=== PATIENT | female | born 2000 | race Caucasian/White ===

== ENCOUNTER → 2023-05-27 | Outpatient (CLI) | payer OTHER, MEDICAID, SELFPAY ==
[2023-05-27 14:40] LABS: Absolute Lymphocyte Count 1.86 X10^3/uL (0.83-4.51); Absolute Neutrophil Count 7.3 X10^3/uL (2.0-7.7); Basophil# 0.05 X10^3/uL; Basophil% 0.5 % (0-1); Eosinophil# 0.13 X10^3/uL; Eosinophils% 1.3 % (0-5); Hemoglobin 11.6 g/dL (12.0-15.0); Lymphocyte # 1.86 X10^3/ul (0.83-4.51); Lymphocyte % 18.8 % (19-41); Mean Corp Hgb Conc 34.1 g/dL (32-36); Mean Corpuscular Hgb 28.9 pg (27.0-32.0); Mean Corpuscular Volume 84.6 fL (81-99); Mean Platelet Vol. 8.9 fl (6.2-12.0); Monocyte# 0.54 X10^3/uL; Monocyte% 5.5 % (0-10); NRBC Flagged by Analyzer 0 % (0-5); Neutrophil # 7.26 X10^3/uL (2.7-7.7); Neutrophil % 73.3 % (47-70); Platelet Count 304 K/mm3 (150-450); RBC Distribution Width SD 36.7 fl (35.1-43.9); Red Blood Count 4.02 M/mm3 (4.2-5.4); White Blood Count 9.9 K/mm3 (4.4-11.0)
[2023-05-27 15:43] LABS: HIV - WCH Non-Reactive (Nonreactive); Hepatitis B Surface Antigen Non-Reactive (Nonreactive); Hepatitis C Antibody Non-Reactive (Nonreactive); Rubella IgG Reactive (Nonreactive); Syphilis Antibodies Non-reactive
[2023-05-29 22:06] LABS: Chlamydia By Nucleic Acid AMP Negative (Negative); Gonococcus By Nucleic Acid AMP Negative (Negative)
== END | disposition home or self-care (01) ==
PROVIDERS: PCP Physician Assistant Medical; Referring Provider Obstetrics & Gynecology; Visit Provider Obstetrics & Gynecology
DX: Z34.90 Encounter for supervision of normal pregnancy, unspecified, unspecified trimester (principal); Z3A.00 Weeks of gestation of pregnancy not specified
CPT/HCPCS: 36415; 85025; 86703; 86762; 86780; 86803; 86850; 86900; 86901; 87086; 87340; 87491; 87591

== ENCOUNTER → 2023-06-26 | Outpatient (CLI) | payer OTHER, MEDICAID, SELFPAY ==
[2023-06-26 16:59] LABS: T4 Free Direct 1.11 ng/dL (0.76-1.46); Thyroid Stim Hormone (TSH) 1.61 uIU/mL (0.358-3.74)
[2023-06-28 04:07] LABS: Thyroid Peroxidase AB 54 IU/mL (0-34)
== END | disposition home or self-care (01) ==
PROVIDERS: PCP Physician Assistant Medical; Referring Provider Obstetrics & Gynecology; Visit Provider Obstetrics & Gynecology
DX: E06.3 Autoimmune thyroiditis (principal)
CPT/HCPCS: 36415; 84439; 84443; 86376

== ENCOUNTER → 2023-08-08 | Outpatient (CLI) | payer OTHER, MEDICAID, SELFPAY ==
[2023-08-08 13:52] LABS: T4 Free Direct 0.93 ng/dL (0.76-1.46); Thyroid Stim Hormone (TSH) 1.99 uIU/mL (0.358-3.74)
== END | disposition home or self-care (01) ==
PROVIDERS: PCP Physician Assistant Medical; Referring Provider Internal Medicine Endocrinology, Diabetes & Metabolism; Visit Provider Internal Medicine Endocrinology, Diabetes & Metabolism
DX: E06.3 Autoimmune thyroiditis (principal)
CPT/HCPCS: 36415; 84439; 84443

== ENCOUNTER → 2023-09-16 | Outpatient (CLI) | payer OTHER, MEDICAID, SELFPAY ==
[2023-09-16 16:18] LABS: Absolute Lymphocyte Count 1.63 X10^3/uL (0.83-4.51); Absolute Neutrophil Count 8.5 X10^3/uL (2.0-7.7); Basophil# 0.07 X10^3/uL; Basophil% 0.6 % (0-1); Eosinophil# 0.25 X10^3/uL; Eosinophils% 2.2 % (0-5); Hematocrit 31.4 % (37-47); Hemoglobin 10.3 g/dL (12.0-15.0); Lymphocyte # 1.63 X10^3/ul (0.83-4.51); Lymphocyte % 14.3 % (19-41); Mean Corp Hgb Conc 32.8 g/dL (32-36); Mean Corpuscular Hgb 28.9 pg (27.0-32.0); Mean Corpuscular Volume 88.2 fL (81-99); Mean Platelet Vol. 9.2 fl (6.2-12.0); Monocyte# 0.76 X10^3/uL; Monocyte% 6.7 % (0-10); NRBC Flagged by Analyzer 0 % (0-5); Neutrophil # 8.48 X10^3/uL (2.7-7.7); Neutrophil % 74.4 % (47-70); Platelet Count 287 K/mm3 (150-450); RBC Distribution Width CV 12.1 % (11.6-14.6); Red Blood Count 3.56 M/mm3 (4.2-5.4); White Blood Count 11.4 K/mm3 (4.4-11.0)
[2023-09-16 16:29] LABS: Protein, Urine (Random) 11.7 mg/dL (<11.9); Protein:Creat Ratio 98 mg/g CRE (0-200)
[2023-09-16 16:34] LABS: ALB/GLOB Ratio 0.6 RATIO (0.9-2.4); AST(SGOT) 8 U/L (15-37); Alanine Aminotransfer ALT/SGPT 10 U/L (13-56); Albumin, Serum 2.7 g/dL (3.2-5.0); Alkaline Phosphatase 76 U/L (45-117); Anion Gap 7 (5-15); BUN 9 mg/dL (7-18); BUN/Creat Ratio 16.6 RATIO (10-20); Calcium,Total 8.2 mg/dL (8.5-10.1); Chloride 105 mmol/L (98-107); Creatinine, Serum 0.54 mg/dL (0.55-1.02); EST Glomerular Filtration Rate 147 mL/min (>60); Est Glom Filt Rate - Afr Amer 178 mL/min (>60); Globulin 4.2 g/dL (2.2-4.2); Glucose 117 mg/dL (74-106); Potassium 3.6 mmol/L (3.5-5.1); Protein, Total 6.9 g/dL (6.4-8.2); Sodium Level 136 mmol/L (136-145)
== END | disposition home or self-care (01) ==
LOC: PAVLAB 15:58 → LAB 16:00
PROVIDERS: PCP Physician Assistant Medical; Referring Provider Nurse Practitioner Women's Health; Visit Provider Nurse Practitioner Women's Health
DX: Z87.448 Personal history of other diseases of urinary system (principal)
CPT/HCPCS: 36415; 80053; 82570; 84156; 85025

== ENCOUNTER → 2023-10-03 | Outpatient (CLI) | payer OTHER, MEDICAID, SELFPAY ==
[2023-10-03 17:53] LABS: Ferritin 4 ng/mL (8-252); Iron 31 ug/dL (50-170); Iron Binding Capacity,Total 526 ug/dL (250-450); PERCENT IRON SATURATION 5.9 % (15.0-55.0)
== END | disposition home or self-care (01) ==
LOC: LAB 15:45
PROVIDERS: PCP Physician Assistant Medical; Referring Provider Nurse Practitioner Women's Health; Visit Provider Nurse Practitioner Women's Health
DX: O99.019 Anemia complicating pregnancy, unspecified trimester (principal); Z3A.00 Weeks of gestation of pregnancy not specified
CPT/HCPCS: 36415; 82728; 83540; 83550

== ENCOUNTER 2023-10-16 17:50 | Emergency (ER) | payer OTHER, MEDICAID, SELFPAY ==
[2023-10-16 17:51] VITALS: BP 115/66; PULSE 111; RESP 16; TEMP 36.3; O2SAT 99; BMI 33.3
[2023-10-16 18:35] LABS: Bacteria 0 SEEN /hpf (None Seen); Mucous, Urine 0 SEEN /hpf (<or=2+); Red Blood Cells-Urine 0 SEEN /hpf (0-5); White Blood Cells 0 SEEN /hpf (0-5)
[2023-10-16 18:57] LABS: Color, Urine Yellow (Yellow); Glucose, Dipstick Normal (Normal); Ketone-Dipstick 15 mg/dl (Negative); Leukocyte Esterase-Dipstick Negative /ul (Negative); Nitrite-Dipstick Negative (Negative); Occult Blood-Urine Negative /ul (Negative); Protein-Dipstick Negative (Negative); Urine Bilirubin Dipstick Negative (Negative); Urine Clarity Clear (Clear); Urine Urobilinogen Normal (Normal); Urine pH 6.5 (5.0 - 8.0)
[2023-10-16 19:06] LABS: Squamous Epithelial Cells - UA 0-5 SEEN /hpf (5-10)
[2023-10-16 19:19] VITALS: BP 116/70; PULSE 91; RESP 19
[2023-10-16 19:20] VITALS: BP 113/75; BP 114/66; BP 114/78; PULSE 120; PULSE 90
[2023-10-16 19:32] LABS: Absolute Lymphocyte Count 1.73 X10^3/uL (0.83-4.51); Absolute Neutrophil Count 7.5 X10^3/uL (2.0-7.7); Basophil# 0.06 X10^3/uL; Basophil% 0.6 % (0-1); Eosinophil# 0.23 X10^3/uL; Eosinophils% 2.2 % (0-5); Hematocrit 29.4 % (37-47); Hemoglobin 9.9 g/dL (12.0-15.0); Lymphocyte # 1.73 X10^3/ul (0.83-4.51); Lymphocyte % 16.6 % (19-41); Mean Corp Hgb Conc 33.7 g/dL (32-36); Mean Corpuscular Volume 83.3 fL (81-99); Mean Platelet Vol. 9.5 fl (6.2-12.0); Monocyte# 0.67 X10^3/uL; Monocyte% 6.4 % (0-10); NRBC Flagged by Analyzer 0 % (0-5); Neutrophil # 7.52 X10^3/uL (2.7-7.7); Neutrophil % 72.3 % (47-70); Platelet Count 294 K/mm3 (150-450); RBC Distribution Width SD 36.4 fl (35.1-43.9); Red Blood Count 3.53 M/mm3 (4.2-5.4); White Blood Count 10.4 K/mm3 (4.4-11.0)
--- NOTE | 2023-10-16 21:03 | EX.ED.DYSGE1 ---
HPI History of Present Illness Chief Complaint: Syncope Detail of Chief Complaint: Syncopal episode Informant: patient Onset/Context/Timing Onset: Today and Hours Context: Sudden Onset Timing: Intermittent Quality: Change in vision, felt warm, nauseous and passed out. Endorsed diaphoresis Location: Infusion center Current Severity: Gone Maximum Severity: Moderate Worsened by: Nothing Relieved by: Not applicable Associated Symptoms Associated Symptoms: Vasovagal response. Narrative Narrative: Patient is a 23-year-old G2, P1 female who is in her third trimester . She is seen by Dr. Esme Baker. 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 She also had frequent syncopal episodes. 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 Table tilt test was never performed.. Patient has history of anemia. She is scheduled for iron infusion. She required iron infusion during her first . She denies black or maroon-colored stool. Patient denies fever or chills. Patient denies night sweats. Patient [place] headache, visual, ocular auditory symptoms. Patient denies chest discomfort or pleuritic pain. Patient denies dyspnea or dyspnea on exertion. Patient denied abdominal pain. She did endorse nausea without vomiting or diarrhea. She denies black or maroon-colored stool. She does endorse frequency without urgency, dysuria or hematuria. Per old records with a history of proteinuria. Prior similar symptoms: Yes Recent Illness/Hospitalization: No [facility] Medical History H/O herpes genitalis Shoulder dystocia during labor and delivery Home Medications multivit-min no.71-iron fum 28 mg-folate no.1 1 mg-dha 300 mg capsule (PNV-[place]) 1 cap PO DAILY 05/16/23 [History Last Taken Unknown] aspirin 81 mg tablet,delayed release 81 mg PO DAILY 08/08/23 [History Last Taken Unknown] ferrous sulfate 325 mg (65 mg iron) tablet (FeroSul) 325 mg PO DAILY 10/16/23 [History Last Taken Unknown] Allergy/AdvReac Type Severity Reaction Status Date / Time Latex, Natural Rubber Allergy Mild Itching Verified 09/16/23 15:24 hydromorphone [From Dilaudid] AdvReac Intermediate passed out Verified 09/16/23 15:24 Family History Grandmother Ovarian cancer great grandmother Surgical History History of throat surgery History of tonsillectomy [place] teeth extracted Social History adopted: No household members: spouse and children number of children: 1 current occupational status: unemployed pets and animals: Yes pets and animals: dog(s) history of recent travel: No sexually active: Yes Smoking Status: Former smoker quit date: 03/15/21 pack-years: 4 alcohol intake: never substance use type: does not use well-balanced diet: daily or most days caffeine: No eating out: 1-3 times/week during the past year weight has: remained stable what type of physical activity do you participate in: walking frequency: daily duration: 30-45 minutes/day stacey/holiness: Jehovah'[employer] Witness seatbelt use: always do you feel safe at home: Yes additional social history: Shawn Shell ROS ROS ED Constitutional Constitutional ED: Denies chills, fever(s), subjective or sweats Eyes Eyes: Reports change in vision bilateral; Denies blurry vision or diplopia ENT ENT ED: Denies ear pain, rhinorrhea or sore throat Cardiovascular Cardiovascular: Reports racing heartbeat; Denies chest pain, orthopnea, palpitations or paroxysmal nocturnal dyspnea Respiratory/Chest Respiratory/Chest: Denies cough, dyspnea, dyspnea on exertion, orthopnea or paroxysmal nocturnal dyspnea Gastrointestinal Gastrointestinal: Reports nausea; Denies abdominal pain, diarrhea, melena or vomiting Genitourinary Genitourinary ED: Denies dysuria, hematuria or urinary frequency Musculoskeletal Musculoskeletal: Denies arthralgias, back pain or myalgias Integumentary Denies rash Neurologic Neurologic: Reports weakness; Denies headache(s) or paresthesias Psychiatric Psychiatric: Denies anxiety Endocrine Endocrinology: Denies cold intolerance or heat intolerance Hematologic/Lymphatic Hematologic/Lymphatic: Reports systems reviewed and no addt'l complaints, except as documented Allergic/Immunologic Allergic/Immunologic ED: Denies mouth swelling or tongue swelling EXAM Physical Exam Narrative Exam Narrative: Vital signs noted. Orthostatic vital signs are normal. She is tachycardic. Const Vital Signs: 10/16/23 17:51 10/16/23 18:42 10/16/23 19:19 Temperature 97.4 F L Temperature Source Temporal Pulse Rate 111 H 91 Pulse Rate [Lying] Pulse Rate [Sitting (for 1 minute prior to obtaining)] Pulse Rate [Standing (for 1 minute prior to obtaining)] Respiratory Rate 16 19 H Respiratory Effort Normal Respiratory Pattern Normal Blood Pressure 115/66 116/70 Blood Pressure [Lying] Blood Pressure [Sitting (for 1 minute prior to obtaining)] Blood Pressure [Standing (for 1 minute prior to obtaining)] Blood Pressure Mean 82 85 Blood Pressure Mean [Lying] Blood Pressure Mean [Sitting (for 1 minute prior to obtaining)] Blood Pressure Mean [Standing (for 1 minute prior to obtaining)] Pulse Ox 99 Oxygen Delivery Method Room Air 10/16/23 19:20 Temperature Temperature Source Pulse Rate Pulse Rate [Lying] 90 Pulse Rate [Sitting (for 1 minute prior to obtaining)] 90 Pulse Rate [Standing (for 1 minute prior to obtaining)] 120 H Respiratory Rate Respiratory Effort Respiratory Pattern Blood Pressure Blood Pressure [Lying] 114/66 Blood Pressure [Sitting (for 1 minute prior to obtaining)] 113/75 Blood Pressure [Standing (for 1 minute prior to obtaining)] 114/78 Blood Pressure Mean Blood Pressure Mean [Lying] 82 Blood Pressure Mean [Sitting (for 1 minute prior to obtaining)] 87 Blood Pressure Mean [Standing (for 1 minute prior to obtaining)] 90 Pulse Ox Oxygen Delivery Method Positive well nourished and well developed General Appearance ED: well developed, NAD and pallor; Negative for cyanotic or diaphoretic HEENT Reports moist mucous membranes HEENT Narrative: Head is atraumatic normocephalic. Ears normal. Nares patent. Mucosa is moist. Uvula is midline. Eyes PERRL and EOMs intact bilaterally General Eye ED: Negative for pale conjunctiva or scleral icterus Neck no lymphadenopathy, supple and no JVD Resp normal respiratory effort and clear to auscultation bilaterally Cardio regular rate, regular rhythm, S1 normal heart sound, S2 normal heart sound and no murmurs GI normal to inspection, nondistended, normoactive bowel sounds, non-tender, non-distended and no masses; Negative for hepatosplenomegaly GI Narrative: Gravid uterus approximately fingerbreadths above the Umbilicus. Positive heart rate. Mother states she feels the fetus moving. Palpation: soft Back/Spine no CVA tenderness Thoracic Spine / Upper Back: Negative for thoracic spinal tenderness Lumbar Spine / Lower Back: Negative for lumbar spinal tenderness Extremity normal to inspection General Extremety ED: Negative for edema or tenderness General Extremity: Negative for edema Neuro oriented x3, CN's II-XII intact bilaterally and no sensory deficits noted Sensorium / Orientation: alert Motor Exam: strength 5/5 throughout Psych mental status grossly normal Mood & Affect: Negative for depressed or anxious Skin no rashes or lesions noted, no wounds and skin turgor normal Skin Narrative: Patient has erythema in the creases of her palm. General Skin Exam: pallor; Negative for elasticity normal or jaundice MDM MDM MDM Narrative Medical decision making narrative: With history of anemia requiring iron transfusion and history of anemia during will obtain CBC to assess H&H suspect to be approximately 10 Suspect. Orthostatic vital signs were performed which were negative. Patient's history and physical exam is consistent with vasovagal syncopal episode. EKG was obtained to assess for evidence of preexcitation syndrome i.e. WPW, [place] syndrome, short ID interval, prolonged QT duration etc. Lab Data Attestation: I reviewed the patient's lab results. Lab results narrative: Hemoglobin is 9.9 with hematocrit 29.4. Indices are normal. Differential is normal. UA reveals ketones. There is no proteinuria or hematuria noted. Labs: Laboratory Results - last 24 hr 10/16/23 10/16/23 18:15 18:38 WBC 10.4 RBC 3.53 L Hgb 9.9 L Hct 29.4 L MCV 83.3 MCH 28.0 MCHC 33.7 RDW Std Deviation 36.4 RDW Coeff of Lis 12.0 Plt Count 294 MPV 9.5 Immature Gran % (Auto) 1.900 H Neut % (Auto) 72.3 H Lymph % (Auto) 16.6 L [place] % (Auto) 6.4 Eos % (Auto) 2.2 Baso % (Auto) 0.6 Absolute Neuts (auto) 7.5 Absolute Lymphs (auto) 1.73 Nucleated RBC % 0 Urine Color Yellow Urine Clarity Clear Urine pH 6.5 Ur Specific [place] 1.010 Urine Protein Negative Urine Glucose (UA) Normal Urine Ketones 15 H Urine Occult Blood Negative Urine Nitrite Negative Urine Bilirubin Negative Urine Urobilinogen Normal Ur Leukocyte Esterase Negative Urine RBC 0 SEEN Urine WBC 0 SEEN Ur Squamous Epith Cells 0-5 SEEN Urine Bacteria 0 SEEN Urine Mucus 0 SEEN Treatment and Re-Evaluation :: With normal orthostatic vital signs history of syncope will discharge with syncopal episode instructions. Will refer to cardiology for possible table tilt test since patient's had multiple syncopal episodes. She had many more when she was younger. Discharge Plan Triage Chief Complaint: Syncope ED Provider: Fermín Rodrigues Dx/Rx/DC Orders Clinical Impression: Ketosis, Syncopal episodes, Ortiz's disease, Rh negative status during , Anemia in preg-unspec Instructions: Anemia During , ED Fainting, Vagal Reaction Prescriptions: No Action PNV-[place] 28-1-300 mg capsule 1 cap PO DAILY aspirin 81 mg tablet,delayed release (DR/EC) 81 mg PO DAILY ferrous sulfate [FeroSul] 325 mg (65 mg iron) tablet 325 mg PO DAILY Primary Care Provider: Nicole Harrington Referrals: Esme Baker MD [Med Staff - Active Staff] - 5-7 Days Nicole Harrington PA [Primary Care Provider] - Disposition Disposition: Home, Self Care
--- NOTE | 2023-10-16 21:13 | EX.ED.DYSGE1 ---
HPI History of Present Illness Chief Complaint: Syncope [facility] Medical History H/O herpes genitalis Shoulder dystocia during labor and delivery Home Medications multivit-min no.71-iron fum 28 mg-folate no.1 1 mg-dha 300 mg capsule (PNV-[place]) 1 cap PO DAILY 05/16/23 [History Last Taken Unknown] aspirin 81 mg tablet,delayed release 81 mg PO DAILY 08/08/23 [History Last Taken Unknown] ferrous sulfate 325 mg (65 mg iron) tablet (FeroSul) 325 mg PO DAILY 10/16/23 [History Last Taken Unknown] Allergy/AdvReac Type Severity Reaction Status Date / Time Latex, Natural Rubber Allergy Mild Itching Verified 09/16/23 15:24 hydromorphone [From Dilaudid] AdvReac Intermediate passed out Verified 09/16/23 15:24 Family History Grandmother Ovarian cancer great grandmother Surgical History History of throat surgery History of tonsillectomy [place] teeth extracted Social History adopted: No household members: spouse and children number of children: 1 current occupational status: unemployed pets and animals: Yes pets and animals: dog(s) history of recent travel: No sexually active: Yes Smoking Status: Former smoker quit date: 03/15/21 pack-years: 4 alcohol intake: never substance use type: does not use well-balanced diet: daily or most days caffeine: No eating out: 1-3 times/week during the past year weight has: remained stable what type of physical activity do you participate in: walking frequency: daily duration: 30-45 minutes/day stacey/roman catholic: Alevism seatbelt use: always do you feel safe at home: Yes additional social history: Shawn Shell EXAM Physical Exam Const Vital Signs: 10/16/23 17:51 10/16/23 18:42 10/16/23 19:19 Temperature 97.4 F L Temperature Source Temporal Pulse Rate 111 H 91 Pulse Rate [Lying] Pulse Rate [Sitting (for 1 minute prior to obtaining)] Pulse Rate [Standing (for 1 minute prior to obtaining)] Respiratory Rate 16 19 H Respiratory Effort Normal Respiratory Pattern Normal Blood Pressure 115/66 116/70 Blood Pressure [Lying] Blood Pressure [Sitting (for 1 minute prior to obtaining)] Blood Pressure [Standing (for 1 minute prior to obtaining)] Blood Pressure Mean 82 85 Blood Pressure Mean [Lying] Blood Pressure Mean [Sitting (for 1 minute prior to obtaining)] Blood Pressure Mean [Standing (for 1 minute prior to obtaining)] Pulse Ox 99 Oxygen Delivery Method Room Air 10/16/23 19:20 Temperature Temperature Source Pulse Rate Pulse Rate [Lying] 90 Pulse Rate [Sitting (for 1 minute prior to obtaining)] 90 Pulse Rate [Standing (for 1 minute prior to obtaining)] 120 H Respiratory Rate Respiratory Effort Respiratory Pattern Blood Pressure Blood Pressure [Lying] 114/66 Blood Pressure [Sitting (for 1 minute prior to obtaining)] 113/75 Blood Pressure [Standing (for 1 minute prior to obtaining)] 114/78 Blood Pressure Mean Blood Pressure Mean [Lying] 82 Blood Pressure Mean [Sitting (for 1 minute prior to obtaining)] 87 Blood Pressure Mean [Standing (for 1 minute prior to obtaining)] 90 Pulse Ox Oxygen Delivery Method MDM MDM Lab Data Labs: Laboratory Results - last 24 hr 10/16/23 10/16/23 18:15 18:38 WBC 10.4 RBC 3.53 L Hgb 9.9 L Hct 29.4 L MCV 83.3 MCH 28.0 MCHC 33.7 RDW Std Deviation 36.4 RDW Coeff of Lis 12.0 Plt Count 294 MPV 9.5 Immature Gran % (Auto) 1.900 H Neut % (Auto) 72.3 H Lymph % (Auto) 16.6 L [place] % (Auto) 6.4 Eos % (Auto) 2.2 Baso % (Auto) 0.6 Absolute Neuts (auto) 7.5 Absolute Lymphs (auto) 1.73 Nucleated RBC % 0 Urine Color Yellow Urine Clarity Clear Urine pH 6.5 Ur Specific [place] 1.010 Urine Protein Negative Urine Glucose (UA) Normal Urine Ketones 15 H Urine Occult Blood Negative Urine Nitrite Negative Urine Bilirubin Negative Urine Urobilinogen Normal Ur Leukocyte Esterase Negative Urine RBC 0 SEEN Urine WBC 0 SEEN Ur Squamous Epith Cells 0-5 SEEN Urine Bacteria 0 SEEN Urine Mucus 0 SEEN Discharge Plan Triage Chief Complaint: Syncope ED Provider: Fermín Rodrigues Dx/Rx/DC Orders Clinical Impression: Ketosis, Syncopal episodes, Ortiz's disease, Rh negative status during , Anemia in preg-unspec Instructions: Anemia During , ED Fainting, Vagal Reaction Prescriptions: No Action PNV-[place] 28-1-300 mg capsule 1 cap PO DAILY aspirin 81 mg tablet,delayed release (DR/EC) 81 mg PO DAILY ferrous sulfate [FeroSul] 325 mg (65 mg iron) tablet 325 mg PO DAILY Primary Care Provider: Nicole Harrington Referrals: Yudelka Mcgowan MD [Med Staff - Active Staff] - 1-2 Weeks Esme Baker MD [Med Staff - Active Staff] - 5-7 Days Nicole Harrington PA [Primary Care Provider] - Disposition Disposition: Home, Self Care
--- NOTE | 2023-10-16 21:15 | EX.ED.DYSGE1 ---
HPI History of Present Illness Chief Complaint: Syncope [facility] Medical History H/O herpes genitalis Shoulder dystocia during labor and delivery Home Medications multivit-min no.71-iron fum 28 mg-folate no.1 1 mg-dha 300 mg capsule (PNV-[place]) 1 cap PO DAILY 05/16/23 [History Last Taken Unknown] aspirin 81 mg tablet,delayed release 81 mg PO DAILY 08/08/23 [History Last Taken Unknown] ferrous sulfate 325 mg (65 mg iron) tablet (FeroSul) 325 mg PO DAILY 10/16/23 [History Last Taken Unknown] Allergy/AdvReac Type Severity Reaction Status Date / Time Latex, Natural Rubber Allergy Mild Itching Verified 09/16/23 15:24 hydromorphone [From Dilaudid] AdvReac Intermediate passed out Verified 09/16/23 15:24 Family History Grandmother Ovarian cancer great grandmother Surgical History History of throat surgery History of tonsillectomy [place] teeth extracted Social History adopted: No household members: spouse and children number of children: 1 current occupational status: unemployed pets and animals: Yes pets and animals: dog(s) history of recent travel: No sexually active: Yes Smoking Status: Former smoker quit date: 03/15/21 pack-years: 4 alcohol intake: never substance use type: does not use well-balanced diet: daily or most days caffeine: No eating out: 1-3 times/week during the past year weight has: remained stable what type of physical activity do you participate in: walking frequency: daily duration: 30-45 minutes/day stacey/buddhism: Protestant seatbelt use: always do you feel safe at home: Yes additional social history: Shawn Shell EXAM Physical Exam Const Vital Signs: 10/16/23 17:51 10/16/23 18:42 10/16/23 19:19 Temperature 97.4 F L Temperature Source Temporal Pulse Rate 111 H 91 Pulse Rate [Lying] Pulse Rate [Sitting (for 1 minute prior to obtaining)] Pulse Rate [Standing (for 1 minute prior to obtaining)] Respiratory Rate 16 19 H Respiratory Effort Normal Respiratory Pattern Normal Blood Pressure 115/66 116/70 Blood Pressure [Lying] Blood Pressure [Sitting (for 1 minute prior to obtaining)] Blood Pressure [Standing (for 1 minute prior to obtaining)] Blood Pressure Mean 82 85 Blood Pressure Mean [Lying] Blood Pressure Mean [Sitting (for 1 minute prior to obtaining)] Blood Pressure Mean [Standing (for 1 minute prior to obtaining)] Pulse Ox 99 Oxygen Delivery Method Room Air 10/16/23 19:20 Temperature Temperature Source Pulse Rate Pulse Rate [Lying] 90 Pulse Rate [Sitting (for 1 minute prior to obtaining)] 90 Pulse Rate [Standing (for 1 minute prior to obtaining)] 120 H Respiratory Rate Respiratory Effort Respiratory Pattern Blood Pressure Blood Pressure [Lying] 114/66 Blood Pressure [Sitting (for 1 minute prior to obtaining)] 113/75 Blood Pressure [Standing (for 1 minute prior to obtaining)] 114/78 Blood Pressure Mean Blood Pressure Mean [Lying] 82 Blood Pressure Mean [Sitting (for 1 minute prior to obtaining)] 87 Blood Pressure Mean [Standing (for 1 minute prior to obtaining)] 90 Pulse Ox Oxygen Delivery Method MDM MDM Lab Data Labs: Laboratory Results - last 24 hr 10/16/23 10/16/23 18:15 18:38 WBC 10.4 RBC 3.53 L Hgb 9.9 L Hct 29.4 L MCV 83.3 MCH 28.0 MCHC 33.7 RDW Std Deviation 36.4 RDW Coeff of Lis 12.0 Plt Count 294 MPV 9.5 Immature Gran % (Auto) 1.900 H Neut % (Auto) 72.3 H Lymph % (Auto) 16.6 L [place] % (Auto) 6.4 Eos % (Auto) 2.2 Baso % (Auto) 0.6 Absolute Neuts (auto) 7.5 Absolute Lymphs (auto) 1.73 Nucleated RBC % 0 Urine Color Yellow Urine Clarity Clear Urine pH 6.5 Ur Specific [place] 1.010 Urine Protein Negative Urine Glucose (UA) Normal Urine Ketones 15 H Urine Occult Blood Negative Urine Nitrite Negative Urine Bilirubin Negative Urine Urobilinogen Normal Ur Leukocyte Esterase Negative Urine RBC 0 SEEN Urine WBC 0 SEEN Ur Squamous Epith Cells 0-5 SEEN Urine Bacteria 0 SEEN Urine Mucus 0 SEEN EKG Initial EKG: Attestation: I personally reviewed and interpreted this EKG as follows: Interpretation: Sinus Rhythm (Rate is 84. EKG is normal. MI interval is 164 ms. Cures duration 84 ms. QT duration 270 ms. [place] is normal) Discharge Plan Triage Chief Complaint: Syncope ED Provider: Fermín Rodrigues Dx/Rx/DC Orders Clinical Impression: Ketosis, Syncopal episodes, Ortiz's disease, Rh negative status during , Anemia in preg-unspec Instructions: Anemia During , ED Fainting, Vagal Reaction Prescriptions: No Action PNV-[place] 28-1-300 mg capsule 1 cap PO DAILY aspirin 81 mg tablet,delayed release (DR/EC) 81 mg PO DAILY ferrous sulfate [FeroSul] 325 mg (65 mg iron) tablet 325 mg PO DAILY Primary Care Provider: Nicole Harrington Referrals: Yudelka Mcgowan MD [Med Staff - Active Staff] - 1-2 Weeks Esme Baker MD [Med Staff - Active Staff] - 5-7 Days Nicole Harrington PA [Primary Care Provider] - Disposition Disposition: Home, Self Care
[2023-10-16 21:28] VITALS: BP 117/86; PULSE 91
--- OUTSIDE RECORDS SUMMARY | 2023-10-16 21:55 | XMS RPT_ITS | CCD ---
Author Name Unknown Address [address] [place] [address] Organization [facility] Care Team Providers Care Safety Analyst Name Role Phone MILADIS DOHERTY Admitting UnavailMILADIS John Attending Unavailrubina PEÑA NO PCP, NO PCP Primary Care Unavailable Chrystal Harrington Unavailable Unavailable Chrystal Harrington Unavailable Unavailable Vianney Guerra Unavailable Unavailable Alexa Beyer Unavailable Unavailable Wallace Lion Unavailable Unavailable Chrystal Harrington Primary Care Provider Chrystal Harrington Unavailable Unavailable Unavailable Chrystal Harrington Unavailable Vianney Guerra Unavailable Ferny Rooney Unavailable Unavailable Paulino Gomez Unavailable ZOIE HARRINGTON Attending ZOIE Chambers Referring ZOIE Chambers Primary Care Lacho Chawla, Ms. Kayleigh Peters Attending Unavail Ms. Kayleigh Aldrich Referring Unavail ZOIE Zayas Primary Care ZOIE Chambers Referring ZOIE Chambers Primary Care ZOIE Chambers Attending Dr. Tayler Gamez Attending Dr. Tayler Vega Referring ZOIE Morales Primary Care Lacho Boyer Ms. Rochelle Marie Referring ZOIE Jimenez Primary Care Lacho Boyer, . Rochelle Marie Attending ZOIE Jimenez Referring Unavai ZOIE Flores Primary Care Yesivai ZOIE Flores Attending ZOIE Chambers Attending ZOIE Chambers Referring Unavai ZOIE Flores Primary Care YesivaChrystal Carbajal PA-C Primary Care Provider Chrystal Harrington PA-C Unavailable Ms. Chrystal Harrington Primary Care Unav ailmirian Lancaster, Ms. Alexa Carrington Attending Unavailab ALEXA Munguia Attending Unavailable CHRYSTAL HARRINGTON Primary Care Unavailable ALEXA LANCASTER Attending Unavailable CHRYSTAL HARRINGTON Primary Care Unavailable ALEXA LANCASTER Attending Unavailable CHRYSTAL HARRINGTON Primary Care Unavailable ALEXA LANCASTER Attending Unavailable CHRYSTAL HARRINGTON Primary Care Unavailable CHRYSTAL HARRINGTON Primary Care Unavailable CHRYSTAL HARRINGTON Primary Care Unavailable CHRYSTAL HARRINGTON Primary Care Unavailable Allergies Allergy Classification Reported Allergen(s) Allergy Type Date of Onset Reaction(s) Facility Acetaminophen / HYDROcodone (12 sources) Acetaminophen / HYDROcodone; Translations: [Vicodin TABS] Drug Allergy [facility] [address] Work Phone: Latex (20 sources) Latex rubber gloves; Translations: [Latex Gloves] Substance Allergy [address] Work Phone: Opioid Agonists (20 sources) HYDROmorphone; Translations: [Dilaudid] Drug Allergy [facility] [address] Work Phone: (20 sources) Acetaminophen / HYDROcodone; Translations: [Vicodin TABS] Drug Allergy 1 [facility], Other [facility] Work Phone: (20 sources) HYDROcodone; Translations: [hydrocodone] Drug Allergy 3 [facility], Other [facility] Work Phone: (20 sources) HYDROmorphone; Translations: [Dilaudid] Drug Allergy [facility] Work Phone: (6 sources) HYDROmorphone; Translations: [HYDROMORPHONE] Drug Allergy 1 [facility], Other [facility] (20 sources) Latex rubber gloves; Translations: [Latex Gloves] Allergy to drug (finding) [facility] [address] Work Phone: (20 sources) natural latex rubber; Translations: [LATEX] Allergy to substance (finding) [address] [facility] 3 Repository (4 sources) guaiFENesin / HYDROcodone Drug Allergy 3 Other [facility] (3 sources) Latex Allergy to substance 3 [facility] Work Phone: (2 sources) Acetaminophen / HYDROcodone; Translations: [HYDROCODONE-ACET AMINOPHEN] Drug Allergy [address] [facility] 3 Repository (2 sources) HYDROCODONE-GUAIF ENESIN; Translations: [HYDROCODONE-GUAI FENESIN] Propensity to adverse reactions to drug (disorder) [address] [facility] 3 Repository Medications Current Medications Medication Drug Class(es) Dates Sig (Normalized) Sig (Original) Acetaminophen (1 source) take 975 mg by mouth every six hours Tylenol ; 975 milligram(s) orally every 6 hours Quantity: 0 Refills: 0 Ordered: 09-Nov-2021 Laverne Orr Generic Substitution Allowed acyclovir 400 mg oral tablet (8 sources) Herpesvirus Nucleoside Analog DNA Polymerase Inhibitor, Herpes Simplex Virus Nucleoside Analog DNA Polymerase Inhibitor, Herpes Zoster Virus Nucleoside Analog DNA Polymerase Inhibitor Start: 02-08-2023 End: 03-10-2023 take 1 tablet by mouth three times daily as needed acyclovir (Zovirax) 400 mg tablet Indications: Genital herpes simplex, unspecified site Take 1 tablet (400 mg) by mouth 3 times a day. 10 DAYS PRN 90 tablet 2 02/08/2023 03/10/2023 Active Completed/Discontinued Medications Medication Drug Class(es) Dates Sig (Normalized) Sig (Original) amoxicillin 875 mg / clavulanate 125 mg oral tablet (2 sources) Penicillin-class Antibacterial Start: 03-14-2023 End: 03-24-2023 take 1 tablet by mouth twice daily amoxicillin-pot clavulanate (Augmentin) 875-125 mg tablet Indications: Abscess Take 1 tablet (875 mg) by mouth 2 times a day for 10 days. 20 tablet 0 03/14/2023 03/20/2023 Discontinued (Therapy completed) azithromycin 250 mg oral tablet (1 source) Macrolide Antimicrobial Start: 12-29-2021 Azithromycin 250 MG Oral Tablet TAKE 2 TABLETS by mouth today, THEN take 1 TABLET once a day FOR the next 4 DAYS. Quantity: 6 Refills: 0 Ordered: 29-Dec-2021 DO Start : 29-Dec-2021 Complete 60 actuat budesonide 0.08 mg/actuat / formoterol fumarate 0.0045 mg/actuat metered dose inhaler (7 sources) Corticosteroid, beta2-Adrenergic Agonist Start: 01-24-2022 take 1 puff(s) by inhalation twice daily Budesonide-Formote rol Fumarate 80-4.5 MCG/ACT Inhalation Aerosol INHALE 1 PUFFS Twice daily May inhale 1-2 puffs every 4 hours PRN up to 12 puffs/day. RINSE MOUTH AFTER EVERY USE Quantity: 1 Refills: 3 Ordered: 24-Jan-2022 Kayleigh Lovell Start : 24-Jan-2022 Active busPIRone hydrochloride 10 mg oral tablet (1 source) Start: 02-16-2021 take 1 tablet by mouth three times daily busPIRone HCl - 10 MG Oral Tablet TAKE 1 TABLET 3 TIMES DAILY. Quantity: 90 Refills: 1 Ordered: 16-Feb-2021 Chrystal Harrington PA-C Start : 16-Feb-2021 Active Blanka 0.35 MG Oral Tablet (11 sources) Start: 01-24-2022 take 1 tablet by mouth once daily Blanka 0.35 MG Oral Tablet TAKE 1 TABLET DAILY. Quantity: 1 Refills: 11 Ordered: 24-Jan-2022 Paulino Decker DO Start : 24-Jan-2022 Active Problems Active Problems Problem Classification Problem Date Documented Da te Episodic/Chronic Abdominal pain (20 sources) Right upper quadrant abdominal tenderness; Translations: [Left upper quadrant abdominal tenderness] Onset: Episodic Administrative/social admission (4 sources) Patient encounter status; Translations: [Health examination of defined subpopulations] Episodic Anxiety disorders (20 sources) Mixed anxiety and depressive disorder; Translations: [Dysthymic disorder] Onset: 3 01-30-2023 Chronic Asthma (18 sources) Uncomplicated moderate persistent asthma; Translations: [Asthma, unspecified type, unspecified] Onset: 3 01-30-2023 Chronic Cardiac dysrhythmias (20 sources) Palpitations; Translations: [Palpitations] Episodic Deficiency and other anemia (2 sources) Anemia due to blood loss; Translations: [Iron deficiency anemia secondary to blood loss (chronic)] 11-08-2021 Chronic Deficiency and other anemia (20 sources) Anemia; Translations: [Anemia, unspecified] Episodic Deficiency and other anemia (14 sources) Iron deficiency anemia; Translations: [Iron deficiency anemia, unspecified] Onset: 3 01-30-2023 Episodic Deficiency and other anemia (4 sources) Iron deficiency anemia, unspecified; Translations: [Iron deficiency anemia, unspecified] Onset: 3 Episodic Diabetes mellitus without complication (5 sources) Abnormal glucose tolerance test; Translations: [Impaired glucose tolerance test (oral)] Episodic Fetopelvic disproportion; obstruction (1 source) Obstructed labor due to shoulder dystocia; Translations: [Shoulder (girdle) dystocia, delivered, with or without mention of antepartum condition] Onset: 2 11-08-2021 Episodic Genitourinary symptoms and ill-defined conditions (5 sources) Increased frequency of urination; Translations: [Urinary frequency] Episodic Headache; including migraine (20 sources) Refractory migraine without aura; Translations: [Migraine without aura, with intractable migraine, so stated, with status migrainosus] Onset: 3 01-30-2023 Chronic Hemorrhoids (20 sources) External hemorrhoids; Translations: [External hemorrhoids without mention of complication] Onset: 3 01-30-2023 Episodic Immunizations and screening for infectious disease (20 sources) Contact with and (suspected) exposure to other viral communicable diseases; Translations: [Patient encounter status] Onset: 9 Episodic Malaise and fatigue (15 sources) Malaise and fatigue; Translations: [Other malaise and fatigue] Episodic Menopausal disorders (8 sources) Atrophic vaginitis; Translations: [Postmenopausal atrophic vaginitis] Chronic Menstrual disorders (7 sources) Menorrhagia; Translations: [Excessive or frequent menstruation] Chronic Mood disorders (12 sources) Mild major depression, single episode; Translations: [Major depressive affective disorder, single episode, mild] Onset: 3 01-30-2023 Chronic Nausea and vomiting (1 source) Vomiting, unspecified; Translations: [VOMITING UNSPECIFIED] Onset: 9 Nonspecific chest pain (20 sources) Atypical chest pain; Translations: [Other chest pain] Episodic OB-related trauma to perineum and vulva (2 sources) Second degree perineal laceration during delivery 11-08-2021 Episodic Other aftercare (1 source) Other terminal gauger (current) drug therapy; Translations: [OTH [facility] CURRENT DRUG THERAPY] Onset: 9 Episodic Other complications of ; puerperium affecting management of mother (3 sources) ultrasound scan abnormal; Translations: [Abnormal finding on screening] Episodic Other complications of (11 sources) Swelling of lower limb; Translations: [Edema or excessive weight gain in , without mention of hypertension, antepartum condition or complication] Episodic Other congenital anomalies (20 sources) Thyroglossal duct cyst; 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] Onset: 3 01-30-2023 Chronic Other connective tissue disease (20 sources) Temporomandibular joint crepitus; Translations: [Temporomandibular joint sounds on opening and/or closing the jaw] Onset: 3 01-30-2023 Episodic Other eye disorders (5 sources) Chalazion; Translations: [Chalazion] Episodic Other female genital disorders (8 sources) Vaginal odor; Translations: [Other specified symptoms associated with female genital organs] Episodic Other gastrointestinal disorders (6 sources) Personal history of other diseases of the digestive system; Translations: [History of hemorrhoid] Episodic Other gastrointestinal disorders (6 sources) H/O: gastrointestinal disease; Translations: [Personal history of other diseases of digestive system] Episodic Other gastrointestinal disorders (20 sources) Acute constipation; Translations: [Constipation, unspecified] Episodic Other hematologic conditions (6 sources) Ferritin level low; Translations: [Other abnormal blood chemistry] Episodic Other infections; including parasitic (20 sources) H/O: viral illness; Translations: [Personal history of other infectious and parasitic diseases] Episodic Past or Other Problems Problem Classification Problem Date Documented Date Episodic/Chronic Other complications of (20 sources) RhD negative; Translations: [Other specified complications of , antepartum condition or complication] Resolved: 11-10-2021 Episodic Unclassified (4 sources) Patient encounter status; Translations: [Immunity status testing] Unclassified (20 sources) Finding of menstrual bleeding; Translations: [Menstruation] Results Test Name Value Interpretation Reference Range Facil ity Vital Signs Date Time Vital Sign Value Performing Clinician Facility 03-14-2023 15:04-0400 Body height 157.5 cm Alexa Lancaster APRN-REINALDO Work Phone: [facility] 03-14-2023 15:04-0400 Body mass index (BMI) [Ratio] 24.14 kg/m2 Alexa Lancaster APRN-SCHEDULE PLANNING MANAGER Work Phone: [facility] 03-14-2023 15:04-0400 Body weight 59.88 kg Alexa Lancaster APRN-SCHEDULE PLANNING MANAGER Work Phone: [facility] 03-14-2023 15:04-0400 Diastolic blood pressure 65 mm[Hg] Alexa Lancaster APRN-SCHEDULE PLANNING MANAGER Work Phone: [facility] 03-14-2023 15:04-0400 Heart rate 86 /min Alexa Lancaster APRN-SCHEDULE PLANNING MANAGER Work Phone: [facility] 03-14-2023 15:04-0400 Systolic blood pressure 101 mm[Hg] Alexa Lancaster APRN-SCHEDULE PLANNING MANAGER Work Phone: [facility] 12-06-2022 13:21-0500 Body height 157.48 cm Chrystal Harrington Work Phone: [address] Work Phone: 12-06-2022 13:21-0500 Body mass index (BMI) [Ratio] 23.85 kg/m2 Chrystal Harrington Work Phone: [place] [address] [address] Work Phone: 12-06-2022 13:21-0500 Body surface area Derived from formula 1.59 m2 Chrystal Harrington Work Phone: [address] Work Phone: 12-06-2022 13:21-0500 Body weight 59.13 kg Chrystal Harrington Work Phone: [address] Work Phone: 12-06-2022 13:21-0500 Diastolic blood pressure 70 mm[Hg] Chrystal Harrington Work Phone: [address] Work Phone: 12-06-2022 13:21-0500 Systolic blood pressure 108 mm[Hg] Chrystal Harrington Work Phone: [address] Work Phone: 09-24-2022 14:10-0500 Body height 157.48 cm Chrystal Harrington Work Phone: [facility] Work Phone: 09-24-2022 14:10-0500 Body mass index (BMI) [Ratio] 24.14 kg/m2 Chrystal Vallejoall Work Phone: [facility] Work Phone: 09-24-2022 14:10-0500 Body surface area Derived from formula 1.6 m2 Chrystal Vallejoall Work Phone: [facility] Work Phone: 09-24-2022 14:10-0500 Body weight 59.88 kg Chrystal Harrington Work Phone: [facility] Work Phone: 09-24-2022 14:10-0500 Diastolic blood pressure 78 mm[Hg] Chrystal Harrington Work Phone: [facility] Work Phone: 09-24-2022 14:10-0500 Heart rate 100 /min Chrystal Harrington Work Phone: [facility] Work Phone: 09-24-2022 14:10-0500 SaO2% (BldA) [Mass fraction] 97 % Chrystal Harrington Work Phone: [facility] Work Phone: 09-24-2022 14:10-0500 Systolic blood pressure 110 mm[Hg] Chrystal Harrington Work Phone: [facility] Work Phone: 03-05-2022 11:05-0400 Body height 157.48 cm Chrystal Harrington Work Phone: [place] [address] [address] Work Phone: 03-05-2022 11:05-0400 Body mass index (BMI) [Ratio] 28.4 kg/m2 Chrystal Harrington Work Phone: [place] [address] [address] Work Phone: 03-05-2022 11:05-0400 Body surface area Derived from formula 1.72 m2 Chrystal Harrington Work Phone: [place] [address] [address] Work Phone: 03-05-2022 11:05-0400 Body weight 70.42 kg Chrystal Harrington Work Phone: [place] [address] [address] Work Phone: 03-05-2022 11:05-0400 Diastolic blood pressure 78 mm[Hg] Chrystal Harrington Work Phone: [address] Work Phone: 03-05-2022 11:05-0400 Systolic blood pressure 118 mm[Hg] Chrystal Harrington Work Phone: [address] Work Phone: 02-13-2022 13:24-0400 Body height 157.48 cm Chrystal Harrington Work Phone: [facility] Work Phone: 02-13-2022 13:24-0400 Body mass index (BMI) [Ratio] 28.53 kg/m2 Chrystal Harrington Work Phone: [facility] Work Phone: 02-13-2022 13:24-0400 Body surface area Derived from formula 1.72 m2 Chrystal Harirngton Work Phone: [facility] Work Phone: 02-13-2022 13:24-0400 Body weight 70.76 kg Chrystal Harrington Work Phone: [facility] Work Phone: 02-13-2022 13:24-0400 Diastolic blood pressure 62 mm[Hg] Chrystal Harrington Work Phone: [facility] Work Phone: 02-13-2022 13:24-0400 Heart rate 72 /min Chrystal Harrington Work Phone: [facility] Work Phone: 02-13-2022 13:24-0400 Systolic blood pressure 104 mm[Hg] Chrystal Harrington Work Phone: [facility] Work Phone: 01-12-2022 13:16-0400 Body height 157.48 cm Chrystal Harrington Work Phone: [facility] Work Phone: 01-12-2022 13:16-0400 Body mass index (BMI) [Ratio] 30.18 kg/m2 Chrystal Harrington Work Phone: [facility] Work Phone: 01-12-2022 13:16-0400 Body surface area Derived from formula 1.76 m2 Chrystal Harrington Work Phone: [facility] Work Phone: 01-12-2022 13:16-0400 Body weight 74.84 kg Chrystal Harrington Work Phone: [facility] Work Phone: 01-12-2022 13:16-0400 Diastolic blood pressure 64 mm[Hg] Chrystal Harrington Work Phone: [facility] Work Phone: 01-12-2022 13:16-0400 Heart rate 100 /min Chrystal Harrington Work Phone: [facility] Work Phone: 01-12-2022 13:16-0400 Systolic blood pressure 108 mm[Hg] Chrystal Harrington Work Phone: [facility] Work Phone: 12-19-2021 13:44-0500 Body height 157.48 cm Chrystal Harrington Work Phone: [place] [address] [employer] Work Phone: 12-19-2021 13:44-0500 Body mass index (BMI) [Ratio] 30.52 kg/m2 Chrystal Harrington Work Phone: [place] [address] [address] Work Phone: 12-19-2021 13:44-0500 Body surface area Derived from formula 1.77 m2 Chrystal Harrington Work Phone: [place] [address] [address] Work Phone: 12-19-2021 13:44-0500 Body weight 75.7 kg Chrystal Harrington Work Phone: [place] [address] [address] Work Phone: 12-19-2021 13:44-0500 Diastolic blood pressure 80 mm[Hg] Chrystal Harrington Work Phone: [place] [address] [address] Work Phone: 12-19-2021 13:44-0500 Systolic blood pressure 102 mm[Hg] Chrystal Harrington Work Phone: [place] [address] [address] Work Phone: 11-10-2021 13:51-0500 Body height 157.48 cm Chrystal Harrington Work Phone: [place] [address] [address] Work Phone: 11-10-2021 13:51-0500 Body mass index (BMI) [Ratio] 35.73 kg/m2 Chrystal Harrington Work Phone: [place] [address] [address] Work Phone: 11-10-2021 13:51-0500 Body surface area Derived from formula 1.89 m2 Chrystal Harrington Work Phone: [employer] [facility] [place] [address] [address] Work Phone: 11-10-2021 13:51-0500 Body temperature 98.6 [degF] Chrystal Harrington Work Phone: [place] [address] [address] Work Phone: 11-10-2021 13:51-0500 Body weight 88.6 kg Chrystal Harrington Work Phone: [facility] [address] [address] Work Phone: 11-10-2021 13:51-0500 Diastolic blood pressure 80 mm[Hg] Chrystal Harrington Work Phone: [employer] Work Phone: 11-10-2021 13:51-0500 Systolic blood pressure 120 mm[Hg] Chrystal Harrington [facility] Phone: [facility] [employer] Work Phone: 11-09-2021 13:41-0500 Body temperature 98.78 [degF] Chrystal Harrington Other Phone: [facility] 11-09-2021 13:41-0500 Diastolic blood pressure 76 mm[Hg] Chrystal Harrington Other Phone: [facility] 11-09-2021 13:41-0500 Heart rate 104 /min Chrystal Vallejoall Other Phone: [facility] 11-09-2021 13:41-0500 Respiratory rate 18 /min Chrystal Harrington Other Phone: [facility] 11-09-2021 13:41-0500 SaO2% (BldA) [Mass fraction] 99 % Chrystal Harrington Other Phone: [facility] 11-09-2021 13:41-0500 Systolic blood pressure 129 mm[Hg] Chrystal Harrington Other Phone: [facility] 10-31-2021 14:32-0500 Body height 157.48 cm Chrystal Harrington Work [facility]: [facility] [employer] Work Phone: 10-31-2021 14:32-0500 Body mass index (BMI) [Ratio] 37.18 kg/m2 Chrystal Harrington Work Phone: [employer] Work Phone: 10-31-2021 14:32-0500 Body surface area Derived from formula 1.92 m2 Chrystal Harrington Work Phone: [place] [address] [address] Work Phone: 10-31-2021 14:32-0500 Body temperature 96.8 [degF] Chrystal Harrington Work Phone: [place] [address] [address] Work Phone: 10-31-2021 14:32-0500 Body weight 92.2 kg Chrystal Harrington Work Phone: [place] [address] [address] Work Phone: 10-31-2021 14:32-0500 Diastolic blood pressure 72 mm[Hg] Chrystal Harrington Work Phone: [place] [address] [address] Work Phone: 10-31-2021 14:32-0500 Systolic blood pressure 120 mm[Hg] Chrystal Harrington Work Phone: [place] [address] [address] Work Phone: 10-24-2021 14:04-0500 Body height 157.48 cm Chrystal Harrington Work Phone: [place] [address] [address] Work Phone: 10-24-2021 14:04-0500 Body mass index (BMI) [Ratio] 36.85 kg/m2 Chrystal Harrington Work Phone: [place] [address] [address] Work Phone: 10-24-2021 14:04-0500 Body surface area Derived from formula 1.92 m2 Chrystal Harrington Work Phone: [place] [address] [address] Work Phone: 10-24-2021 14:04-0500 Body temperature 97.1 [degF] Chrystal Harrington Work Phone: [place] [address] [address] Work Phone: 10-24-2021 14:04-0500 Body weight 91.4 kg Chrystal Vallejoall Work Phone: [facility] [place] [address] [address] Work Phone: 10-24-2021 14:04-0500 Diastolic blood pressure 76 mm[Hg] Chrystal Vallejoall Work Phone: [place] [address] [address] Work Phone: 10-24-2021 14:04-0500 Systolic blood pressure 120 mm[Hg] Chrystal Vallejoall Work Phone: [facility] [address] [address] Work Phone: 09-29-2021 13:00-0500 Body height 157.48 cm Chrystal Vallejoall Work Phone: [facility] [address] [address] Work Phone: 09-29-2021 13:00-0500 Body mass index (BMI) [Ratio] 34.48 kg/m2 Chrystal Vallejoall Work Phone: [facility] [address] [address] Work Phone: 09-29-2021 13:00-0500 Body surface area Derived from formula 1.86 m2 Chrystal Vallejoall Work Phone: [facility] [facility] [address] [address] Work Phone: 09-29-2021 13:00-0500 Body temperature 96.9 [degF] Chrystal Vallejoall Work Phone: [facility] [address] [address] Work Phone: 09-29-2021 13:00-0500 Body weight 85.5 kg Chrystal Vallejoall Work Phone: [place] [address] [address] Work Phone: 09-29-2021 13:00-0500 Diastolic blood pressure 60 mm[Hg] Chrystal Wrightenhall Work Phone: [place] [address] [address] Work Phone: 09-29-2021 13:00-0500 Systolic blood pressure 120 mm[Hg] Chrystal Vallejoall Work Phone: [place] [address] [address] Work Phone: 09-18-2021 15:35-0500 Body height 157.48 cm Chrystal Vallejoall Work Phone: [place] [address] [address] Work Phone: 09-18-2021 15:35-0500 Body mass index (BMI) [Ratio] 35.28 kg/m2 Chrystal Vallejoall Work Phone: [place] [address] [address] Work Phone: 09-18-2021 15:35-0500 Body surface area Derived from formula 1.88 m2 Chrystal Vallejoall Work Phone: [place] [address] [address] Work Phone: 09-18-2021 15:35-0500 Body temperature 96.8 [degF] Chrystal Vallejoall Work Phone: [place] [address] [address] Work Phone: 09-18-2021 15:35-0500 Body weight 87.5 kg Chrystal Vallejoall Work Phone: [place] [address] [address] Work Phone: 09-18-2021 15:35-0500 Diastolic blood pressure 70 mm[Hg] Chrystal Wrightenhall Work Phone: [place] [address] [address] Work Phone: 09-18-2021 15:35-0500 Systolic blood pressure 120 mm[Hg] Chrystal B Rochester Work Phone: [place] [address] [address] Work Phone: 09-05-2021 08:27-0500 Body height 157.48 cm Chrystal Harrington Work Phone: [facility] [address] [address] Work Phone: 09-05-2021 08:27-0500 Body mass index (BMI) [Ratio] 34.52 kg/m2 Chrystal Harrington Work Phone: [facility] [address] [address] Work Phone: 09-05-2021 08:27-0500 Body surface area Derived from formula 1.86 m2 Chrystal Harrington Work Phone: [facility] [facility] [address] [address] Work Phone: 09-05-2021 08:27-0500 Body temperature 95.7 [degF] Chrystal Harrington Work Phone: [facility] [address] [address] Work Phone: 09-05-2021 08:27-0500 Body weight 85.6 kg Chrystal Harrington Work Phone: [facility] [place] [address] [place] Work Phone: 09-05-2021 08:27-0500 Diastolic blood pressure 62 mm[Hg] Chrystal Harrington Work Phone: [place] [address] [place] Work Phone: 09-05-2021 08:27-0500 Systolic blood pressure 100 mm[Hg] Chrystal Harrington Work Phone: [place] [address] [place] Work Phone: 08-21-2021 10:24-0500 Body height 157.48 cm Chrystal Harrington Work Phone: [facility] [address] [place] Work Phone: 08-21-2021 10:24-0500 Body mass index (BMI) [Ratio] 33.27 kg/m2 Chrystal Harrington Work Phone: [facility] [employer] [address] [place] Work Phone: 08-21-2021 10:24-0500 Body surface area Derived from formula 1.84 m2 Chrystal Harrington Work Phone: [place] [address] [place] Work Phone: 08-21-2021 10:24-0500 Body temperature 97.5 [degF] Chrystal Harrington Work Phone: [facility] [address] [place] Work Phone: 08-21-2021 10:24-0500 Body weight 82.5 kg Chrystal Harrington Work Phone: [facility] [employer] [address] [place] Work Phone: 08-21-2021 10:24-0500 Diastolic blood pressure 60 mm[Hg] Chrystal Harrington Work Phone: [facility] [employer] [address] [place] Work Phone: 08-21-2021 10:24-0500 Systolic blood pressure 98 mm[Hg] Chrystal Harrington Work Phone: [facility] [employer] [address] [place] Work Phone: 07-24-2021 16:04-0400 Body height 157.48 cm Chrystal Harrington Work Phone: [place] [address] [place] Work Phone: 07-24-2021 16:04-0400 Body mass index (BMI) [Ratio] 30.85 kg/m2 Chrystal Vallejoall Work Phone: [place] [address] [place] Work Phone: 07-24-2021 16:04-0400 Body surface area Derived from formula 1.78 m2 Chrystal Harrington Work Phone: [facility] [employer] [address] [place] Work Phone: 07-24-2021 16:04-0400 Body temperature 98.2 [degF] Chrystal Harrington Work Phone: [place] [address] [employer] Work Phone: 07-24-2021 16:04-0400 Body weight 76.5 kg Chrystal Harrington Work Phone: [place] [address] [place] Work Phone: 07-24-2021 16:04-0400 Diastolic blood pressure 68 mm[Hg] Chrystal Vallejoall Work Phone: [place] [address] [employer] Work Phone: 07-24-2021 16:04-0400 Systolic blood pressure 100 mm[Hg] Chrystal Harrington Work Phone: [place] [address] [employer] Work Phone: 07-19-2021 15:40-0400 Body height 157.48 cm Chrystal Harrington Work Phone: [place] [address] [employer] Work Phone: 07-19-2021 15:40-0400 Body mass index (BMI) [Ratio] 31.09 kg/m2 Chrystal Harrington Work Phone: [facility] [employer] [address] [employer] Work Phone: 07-19-2021 15:40-0400 Body surface area Derived from formula 1.78 m2 Chrystal Harrington Work Phone: [facility] [employer] [address] [employer] Work Phone: 07-19-2021 15:40-0400 Body temperature 98.2 [degF] Chrystal Vallejoall Work Phone: [facility] [address] [place] Work Phone: 07-19-2021 15:40-0400 Body weight 77.1 kg Chrystal Harrington Work Phone: [place] [address] [place] Work Phone: 07-19-2021 15:40-0400 Diastolic blood pressure 70 mm[Hg] Chrystal Harrington Work Phone: [place] [address] [place] Work Phone: 07-19-2021 15:40-0400 Systolic blood pressure 120 mm[Hg] Chrystal Harrington Work Phone: [facility] [address] [place] Work Phone: 06-26-2021 14:56-0400 Body height 157.48 cm Chrystal Harrington Work Phone: [place] [address] [place] Work Phone: 06-26-2021 14:56-0400 Body mass index (BMI) [Ratio] 28.53 kg/m2 Chrystal Harrington Work Phone: [place] [address] [place] Work Phone: 06-26-2021 14:56-0400 Body surface area Derived from formula 1.72 m2 Chrystal Harrington Work Phone: [place] [address] [place] Work Phone: 06-26-2021 14:56-0400 Body temperature 98 [degF] Chrystal Harrington Work Phone: [place] [address] [place] Work Phone: 06-26-2021 14:56-0400 Body weight 70.76 kg Chrystal Harrington Work Phone: [place] [address] [place] Work Phone: 06-26-2021 14:56-0400 Diastolic blood pressure 60 mm[Hg] Chrystal Harrington Work Phone: [place] [address] [place] Work Phone: 06-26-2021 14:56-0400 Systolic blood pressure 112 mm[Hg] Chrystal Harrington Work Phone: [facility] ArtRichard [place] [address] [place] Work Phone: 06-15-2021 18:43-0400 Body height 160 cm Chrystal Harrington Other Phone: [facility] 06-15-2021 18:43-0400 Body temperature 98.6 [degF] Chrystal Harrington Other Phone: [facility] 06-15-2021 18:43-0400 Diastolic blood pressure 55 mm[Hg] Chrystal Harrington Other Phone: [facility] 06-15-2021 18:43-0400 Heart rate 128 /min Chrystal Harrington Other Phone: [facility] 06-15-2021 18:43-0400 SaO2% (BldA) [Mass fraction] 98 % Chrystal Harrington Other Phone: [facility] 06-15-2021 18:43-0400 Systolic blood pressure 98 mm[Hg] Chrystal Harrington Other Phone: [facility] 05-29-2021 15:12-0400 Body height 157.48 cm Chrystal Harrington Work Phone: [place] [employer] Work Phone: 05-29-2021 15:12-0400 Body mass index (BMI) [Ratio] 27.14 kg/m2 Chrystal Harrington Work Phone: [place] [employer] Work Phone: 05-29-2021 15:12-0400 Body surface area Derived from formula 1.68 m2 Chrystal Harrington Work Phone: [employer] [employer] [employer] Work Phone: 05-29-2021 15:12-0400 Body temperature 97.7 [degF] Chrystal Harrington Work Phone: [place] [employer] Work Phone: 05-29-2021 15:12-0400 Body weight 67.3 kg Chrystal Harrington Work Phone: [facility] [employer] [facility] [address] [place] Work Phone: 05-29-2021 15:12-0400 Diastolic blood pressure 72 mm[Hg] Chrystal Harrington Work Phone: [place] [address] [place] Work Phone: 05-29-2021 15:12-0400 Systolic blood pressure 112 mm[Hg] Chrystal Harrington Work Phone: [place] [address] [place] Work Phone: 05-01-2021 15:12-0400 Body height 157.48 cm Chrystal Harrington Work Phone: [place] [address] [place] Work Phone: 05-01-2021 15:12-0400 Body mass index (BMI) [Ratio] 24.4 kg/m2 Chrystal Harrington Work Phone: [place] [address] [place] Work Phone: 05-01-2021 15:12-0400 Body surface area Derived from formula 1.61 m2 Chrystal Harrington Work Phone: [place] [address] [place] Work Phone: 05-01-2021 15:12-0400 Body temperature 97.3 [degF] Chrystal Harrington Work Phone: [place] [address] [place] Work Phone: 05-01-2021 15:12-0400 Body weight 60.5 kg Chrystal Vallejoall Work Phone: [place] [address] [place] Work Phone: 05-01-2021 15:12-0400 Diastolic blood pressure 64 mm[Hg] Chrystal Harrington Work Phone: [place] [address] [place] Work Phone: 05-01-2021 15:12-0400 Systolic blood pressure 108 mm[Hg] Chrystal Harrington Work Phone: [address] Work Phone: 04-25-2021 13:30-0400 Body height 157.48 cm Chrystal Vallejoall Work Phone: [facility] Work Phone: 04-25-2021 13:30-0400 Body mass index (BMI) [Ratio] 24.14 kg/m2 Chrystal Vallejoall Work Phone: [facility] Work Phone: 04-25-2021 13:30-0400 Body surface area Derived from formula 1.6 m2 Chrystal Harrington Work Phone: [facility] Work Phone: 04-25-2021 13:30-0400 Body weight 59.87 kg Chrystal Harrington Work Phone: [facility] Work Phone: 04-25-2021 13:30-0400 Diastolic blood pressure 62 mm[Hg] Chrystal Harrington Work Phone: [facility] Work Phone: 04-25-2021 13:30-0400 Heart rate 84 /min Chrystal Harrington Work Phone: [facility] Work Phone: 04-25-2021 13:30-0400 Systolic blood pressure 124 mm[Hg] Chrystal Vallejoall Work Phone: [facility] Work Phone: 04-03-2021 15:08-0400 Body height 157.48 cm Chrystal Harrington Work Phone: [address] Work Phone: 04-03-2021 15:08-0400 Body mass index (BMI) [Ratio] 23.39 kg/m2 Chrystal Vallejoall Work Phone: [place] [address] [place] Work Phone: 04-03-2021 15:08-0400 Body surface area Derived from formula 1.58 m2 Chrystal Vallejoall Work Phone: [facility] [employer] [address] [place] Work Phone: 04-03-2021 15:08-0400 Body temperature 97.5 [degF] Chrystal Vallejoall Work Phone: [facility] [address] [place] Work Phone: 04-03-2021 15:08-0400 Body weight 58 kg Chrystal Harrington Work Phone: [facility] [place] [address] [place] Work Phone: 04-03-2021 15:08-0400 Diastolic blood pressure 62 mm[Hg] Chrystal Harrington Work Phone: [facility] [address] [place] Work Phone: 04-03-2021 15:08-0400 Systolic blood pressure 110 mm[Hg] Chrystal Harrington Work Phone: [facility] [address] [place] Work Phone: 03-20-2021 13:31-0400 Body height 157.48 cm Chrystal Vallejoall Work Phone: [facility] [place] [address] [place] Work Phone: 03-20-2021 13:31-0400 Body mass index (BMI) [Ratio] 22.94 kg/m2 Chrystal Vallejoall Work Phone: [facility] [address] [place] Work Phone: 03-20-2021 13:31-0400 Body surface area Derived from formula 1.57 m2 Chrystal Vallejoall Work Phone: [address] Work Phone: 03-20-2021 13:31-0400 Body temperature 98 [degF] Chrystal Harrington Work Phone: [address] Work Phone: 03-20-2021 13:31-0400 Body weight 56.9 kg Chrystal Harrington Work Phone: [address] Work Phone: 03-20-2021 13:31-0400 Diastolic blood pressure 62 mm[Hg] Chrystal Harrington Work Phone: [address] Work Phone: 03-20-2021 13:31-0400 Systolic blood pressure 112 mm[Hg] Chrystal Harrington Work Phone: [address] Work Phone: 11-11-2020 10:53-0500 BMI (Body Mass Index) 22.42 kg/m2 Alexa Warekins [facility] Work Phone: 11-11-2020 10:53-0500 Body Temperature 96.6 [degF] Alexa Warekins [facility] Work Phone: 11-11-2020 10:53-0500 Body weight 55.61 kg Alexa Beyer [facility] Work Phone: 11-11-2020 10:53-0500 BP Diastolic 68 mm[Hg] Alexa Beyer [facility] Work Phone: 11-11-2020 10:53-0500 BP Systolic 106 mm[Hg] Alexa Beyer [facility] Work Phone: 11-11-2020 10:53-0500 BSA (Body Surface Area) 1.55 m2 Alexa Beyer [facility] Work Phone: 11-11-2020 10:53-0500 Height 157.48 cm Alexa Beyer [facility] Work Phone: 11-11-2020 10:53-0500 Pulse (Heart Rate) 115 /min Alexa Beyer [facility] Work Phone: 11-11-2020 10:53-0500 Pulse Oximetry 98 % Alexa Beyer [facility] Work Phone: 10-31-2020 18:57-0500 BP Diastolic 74 mm[Hg] [facility] 10-31-2020 18:57-0500 BP Systolic 125 mm[Hg] [facility] 10-31-2020 18:57-0500 Pulse (Heart Rate) 95 /min [facility] 10-31-2020 18:57-0500 Pulse Oximetry 99 % [facility] 10-31-2020 18:57-0500 Respiratory Rate 16 /min [facility] 10-31-2020 16:27-0500 Height 157.5 cm [facility] 10-31-2020 16:26-0500 Body Temperature 98.2 [degF] [facility] Encounters Encounter Date Encounter Type Care Provider Facility Start: 2023 End: 04-21-2023 ambulatory CHRYSTAL Sorensen [facility] Start: 04-17-2023 End: 04-18-2023 ambulatory CHRYSTAL Sorensen [facility] Start: 03-20-2023 End: 03-20-2023 Office outpatient visit 25 minutes Alexa Lancaster SCRAP COLLECTOR-SCHEDULE PLANNING MANAGER Work Phone: [facility] Procedures Date Procedure Procedure Detail Performing Clinician Start: 2023 HUMAN CHORIONIC GONADOTROPIN, SERUM QUANTITATIVE CHRYSTAL HARRINGTON Start: 04-17-2023 CBC W Auto Differential panel - Blood CHRYSTAL HARRINGTON Start: 04-17-2023 Ferritin [Mass/volume] in Serum or Plasma CHRYSTAL HARRINGTON Start: 04-17-2023 HUMAN CHORIONIC GONADOTROPIN, SERUM QUANTITATIVE CHRYSTAL HARRINGTON Start: 04-17-2023 IRON AND TIBC CHRYSTAL HARRINGTON Start: 04-17-2023 Thyrotropin [Units/volume] in Serum or Plasma CHRYSTAL HARRINGTON Start: 04-17-2023 THYROXINE, FREE CHRYSTAL HARRINGTON Start: 04-17-2023 TRIIODOTHYRONINE, FREE CHRYSTAL HARRINGTON Start: 03-19-2023 CBC W Auto Differential panel - Blood CHRYSTAL HARRINGTON Start: 03-19-2023 Comprehensive metabolic 2000 panel - Serum or Plasma CHRYSTAL HARRINGTON Start: 03-19-2023 Cyanocobalamin vitamin b-12 CHRYSTAL LANG [facility] Start: 03-19-2023 Ferritin [Mass/volume] in Serum or Plasma CHRYSTAL HARRINGTON Start: 03-19-2023 FOLATE CHRYSTAL HARRINGTON Start: 03-19-2023 Hemoglobin A1c/Hemoglobin.total in Blood CHRYSTAL HARRINGTON Start: 03-19-2023 IRON AND TIBC CHRYSTAL HARRINGTON Start: 03-19-2023 Lipid panel CHRYSTAL WRIGHTENHALL Start: 03-19-2023 Thyrotropin [Units/volume] in Serum or Plasma CHRYSTAL HARRINGTON Start: 03-19-2023 THYROXINE, FREE CHRYSTAL HARRINGTON Start: 03-19-2023 TRIIODOTHYRONINE, FREE CHRYSTAL HARRINGTON Start: 03-19-2023 Lipid 1996 panel - Serum or Plasma Alexa Lancaster APRN-SCHEDULE PLANNING MANAGER Work Phone: Start: 03-20-2022 Lipid 1995 panel - Serum or Plasma Alexa Lancaster APRN-SCHEDULE PLANNING MANAGER Work Phone: Start: 11-08-2021 Hemoglobin F [Presence] in Blood Paulino Tippah Start: 11-08-2021 Rhogam Paulion Tippah Start: 11-16-2020 Echocardiography Alexa Beyer Start: 11-11-2020 Echocardiography Alexa Beyer Start: 11-11-2020 Holter Monitor 3-14 Days Alexa Beyer Start: 10-31-2020 CT of chest Marybel Bustos Work Phone: Start: 10-31-2020 Choriogonadotropin ( test) [Presence] in Urine Marybel Bustos Work Phone: Start: 10-31-2020 Urinalysis microscopic only Marybel Hernandez rne Work Phone: Start: 10-31-2020 Urinalysis, reagent strip without microscopy Marybel Bustos Work Phone: Start: 10-31-2020 Assay of troponin quantitative Marybel Miguel sborne Work Phone: Start: 10-31-2020 Assay of thyroid stimulating hormone tsh Marybel Bustos Work Phone: Start: 10-31-2020 Complete blood count with white cell differential, automated Marybel Bustos Work Phone: Start: 10-31-2020 Creatinine blood Marybel Bustos Work Phone: Start: 10-31-2020 Fibrin dgradj products d-dimer quantitative Marybel Bustos Work Phone: Excision of thyroglo ssal duct cyst Chrystal Harrington Operation on mouth Chrystal aguillon Tonsillectomy Chrystal villatoro Plan of Treatment Date Care Activity Detail Author Start: 2050 Zoster Vaccines (1 of 2) Zoster Vaccines (1 of 2) [facility] Start: 08-22-2031 DTaP/Tdap/Td Vaccines (7 - Td or Tdap) DTaP/Tdap/Td Vaccines (7 - Td or Tdap) [facility] Start: 03-19-2028 [address] Lipid Panel [facility] Start: 03-20-2027 [address] Lipid Panel [facility] Start: 06-14-2023 Influenza vaccination Influenza Vaccine (Season Ended) [facility] Start: 04-11-2023 End: 04-11-2023 Patient encounter procedure 04/11/2023 9:40 AM EDT Office Visit [facility] [address] [place] [id number] Chrystal Harrington PA-[place] [address] [place] [id number] [facility] Start: 03-20-2023 End: 03-20-2024 CBC W Auto Differential panel - Blood CBC and Auto Differential Lab Routine Iron deficiency anemia, unspecified iron deficiency anemia type Expected: 03/20/2023 (Approximate), Expires: 03/20/2024 [facility] Service Area Work Phone: Immunizations Immunization Date Immunization Notes Care Provider [facility] 08-22-2021 tetanus toxoid, reduced diphtheria toxoid, and acellular pertussis vaccine, adsorbed Chrystal Harrington Work Phone: [address] Work Phone: 08-04-2020 hepatitis B vaccine, pediatric or pediatric/adolescent dosage Alexa Beyer [facility] Work Phone: Payers Date Payer Category Payer Unknown [id number] 2021 Unknown [id number] 2021 Unknown [id number] 2019 Unknown 2000 Unknown [id number] 2.16.84 [id number] 2000 Unknown [id number] 2.16. [id number] 2000 Unknown [id number] 2.16. [id number] 2000 Unknown [id number] 2.16. [id number] 2000 Unknown [id number] 2.16. [id number] 2000 Unknown [id number] 2.16. [id number] 2000 Unknown [id number] 2.16. [id number] 2000 Unknown [id number] 2.16. [id number] 2000 Unknown [id number] 2.16.8 [id number] 2000 Unknown [id number] 2.16.84 [id number] 2000 Unknown [id number] 2.16.84 [id number] 2000 Unknown [id number] 2.16.84 [id number] 2000 Unknown [id number] 2.16.84 [id number] 2000 Unknown [id number] 2.16.84 [id number] 2000 Unknown [id number] 2.16.84 [id number] 2000 Unknown [id number] 2.16.84 [id number] 1959 Unknown [id number] Social History Date Type Detail Facility Start: 10-31-2020 [facility] Start: 10-31-2020 End: 01-30-2023 Tobacco use and exposure Never used [facility] Start: 10-31-2020 End: 03-20-2023 Alcohol intake [facility] Start: 10-31-2020 Tobacco Comment [facility] Start: 10-31-2020 Alcohol Comment occasional [facility] Start: 2000 Sex Assigned At Not on file [employer] Start: 03-04-2023 End: 03-19-2023 Exposure to SARS-CoV-2 (event) Not sure [facility] Start: 02-08-2023 End: 03-20-2023 [facility] [address] [place] Work Phone: Functional Status Date Assessment Result Facility Functional observable [facility] NEGATED: Highlighted row Functional performance Functional status health issues are not documented Disease -[facility] Work Phone: Mental Status Date Assessment Result Facility 11-08-2021 Cognitive functi ons :44 [facility] NEGATED: Highlighted row Cognitive function [Interpretation] Cognitive status health issues are not documented Disease -[facility] Work Phone: Clinical Notes 01-12-2021 to 03-20-2023 JANINA Lara - 03/20/2023 3:40 PM EDTPatient InstructionsJANINA Lara - 03/14/2023 2:40 PM EDT<item> Note Date & Type Note Facility 03-20-2023 History of Present illness Narrative Subjective Patient ID: Johny Cuevas is a 22 y.o. female who presents for Results (NO ADDITIONAL CONCERNS ). VIRTUAL APPOINTMENT BEING PERFORMED DUE TO COVID-19 (CORONAVIRUS) HPI: Presents today for [facility]. NO NEW COMPLAINTS IRON- SHE STATES SHE HAS NOT BEEN ABLE TO ABSORB IRON IN THE PAST AND HAS ENDED UP WITH IRON INFUSIONS. WILL START DAILY IRON AND RECHECK IN 1 MONTH THYROID- DX WITH ORTIZ IN THE PAST. TSH WILL FLUCTUATE LOW TO NORMAL BUT STATES NEVER HAS BEE HIGH. WILL MONITOR AND RECHECK IN 1 MONTH Visit Vitals Smoking Status Former Review of Systems Constitutional: Positive for fatigue. Negative for chills, fever and unexpected weight change. HENT: Negative for congestion, ear pain, sore throat and trouble swallowing. Eyes: Negative for photophobia, pain, redness and visual disturbance. Respiratory: Negative for apnea, cough, choking, chest tightness, shortness of breath and wheezing. Cardiovascular: Negative for chest pain, palpitations and leg swelling. Gastrointestinal: Negative for abdominal distention, abdominal pain, blood in stool, constipation, diarrhea, nausea and vomiting. Genitourinary: Negative for difficulty urinating, dysuria, flank pain, frequency, hematuria and urgency. Musculoskeletal: Negative for arthralgias, back pain, gait problem, joint swelling, myalgias and neck pain. Skin: Negative for rash and wound. Neurological: Negative for dizziness, seizures, syncope, facial asymmetry, speech difficulty, weakness, numbness and headaches. Psychiatric/Behavioral: Negative for confusion, sleep disturbance and suicidal ideas. The patient is not nervous/anxious. Objective Component Latest Ref Rng 03/19/2023 WBC 4.4 - 11.3 x10E9/L 4.7 RBC 4.00 - 5.20 x10E12/L 4.27 HEMOGLOBIN 12.0 - 16.0 g/dL 12.3 HEMATOCRIT 36.0 - 46.0 % 36.8 MCV 80 - 100 fL 86 MCHC 32.0 - 36.0 g/dL 33.4 Platelets 150 - 450 x10E9/L 266 RED CELL DISTRIBUTION WIDTH 11.5 - 14.5 % 12.1 Neutrophils % 40.0 - 80.0 % 50.9 Immature Granulocytes %, Automated 0.0 - 0.9 % 0.4 Lymphocytes % 13.0 - 44.0 % 36.9 Monocytes % 2.0 - 10.0 % 7.5 Eosinophils % 0.0 - 6.0 % 3.4 Basophils % 0.0 - 2.0 % 0.9 Neutrophils Absolute 1.20 - 7.70 x10E9/L 2.37 Lymphocytes Absolute 1.20 - 4.80 x10E9/L 1.72 Monocytes Absolute 0.10 - 1.00 x10E9/L 0.35 Eosinophils Absolute 0.00 - 0.70 x10E9/L 0.16 Basophils Absolute 0.00 - 0.10 x10E9/L 0.04 GLUCOSE 74 - 99 mg/dL 90 SODIUM 136 - 145 mmol/L 136 POTASSIUM 3.5 - 5.3 mmol/L 3.8 CHLORIDE 98 - 107 mmol/L 105 Bicarbonate 21 - 32 mmol/L 24 Anion Gap 10 - 20 mmol/L 11 Blood Urea Nitrogen 6 - 23 mg/dL 14 Creatinine 0.50 - 1.05 mg/dL 0.75 GFR Female >90 mL/min/1.73m2 >90 Calcium 8.6 - 10.3 mg/dL 8.9 Albumin 3.4 - 5.0 g/dL 4.6 Alkaline Phosphatase 33 - 110 U/L 60 Total Protein 6.4 - 8.2 g/dL 7.1 AST 9 - 39 U/L 11 Bilirubin Total 0.0 - 1.2 mg/dL 0.4 ALT 7 - 45 U/L 7 CHOLESTEROL 0 - 199 mg/dL 167 HDL CHOLESTEROL mg/dL 68.0 Cholesterol/HDL Ratio 2.5 LDL 0 - 119 mg/dL 92 VLDL 0 - 40 mg/dL 7 TRIGLYCERIDES 0 - 149 mg/dL 33 Non HDL Cholesterol 0 - 149 mg/dL 99 IRON 35 - 150 ug/dL 40 TIBC 240 - 445 ug/dL 420 % Saturation 25 - 45 % 10 (L) Hemoglobin A1C % 5.0 Estimated Average Glucose MG/DL 97 Thyroid Stimulating Hormone 0.44 - 3.98 mIU/L 5.03 (H) Thyroxine, Free 0.61 - 1.12 ng/dL 0.78 Triiodothyronine, Free 2.3 - 4.2 pg/mL 3.3 Vitamin B12 211 - 911 pg/mL 324 FOLATE >5.0 ng/mL 18.9 FERRITIN 8 - 150 ug/L 19 Legend: (L) Low (H) High Physical Exam Neurological: Mental Status: She is alert. Psychiatric: Mood and Affect: Mood normal. Behavior: Behavior normal. Thought Content: Thought content normal. Judgment: Judgment normal. Assessment/Plan Problem List Items Addressed This Visit Endocrine/Metabolic Ortiz's thyroiditis Relevant Orders Thyroid Stimulating Hormone Triiodothyronine, Free Thyroxine, Free Hematologic Iron deficiency anemia - Primary Relevant Medications ferrous sulfate 325 (65 Fe) MG EC tablet Other Relevant Orders CBC and Auto Differential Iron and TIBC Ferritin IF HER IRON CONTINUES TO DROP, I WILL SEND HER FOR AN IRON INFUSION. WE DISCUSSED MOST COMMON SIDE EFFECTS OF PRESCRIBED MEDICATIONS. INDICATIONS, RISK, COMPLICATIONS, AND ALTERNATIVES OF MEDICATION/THERAPEUTICS WERE EXPLAINED AND DISCUSSED. PLEASE MONITOR CLOSELY FOR ANY UNTOWARD SIDE EFFECTS OR COMPLICATIONS OF MEDICATIONS. PATIENT IS STRONGLY ADVISED TO BE COMPLIANT WITH RECOMMENDATIONS. QUESTIONS AND CONCERNS WERE ADDRESSED. INSTRUCTED TO CALL, RETURN SOONER, OR GO TO THE ER, IF SYMPTOMS PERSIST OR WORSEN. THEY VOICED UNDERSTANDING AND DENIES FURTHER QUESTIONS AT THIS TIME. TIME CODE 1. PREPARATION FOR PATIENT'S VISIT (REVIEWING CHART, CURRENT MEDICAL RECORDS, OUTSIDE HEALTH PROVIDER RECORDS, PREVIOUS HISTORY, EXAM, TEST, PROCEDURE, AND MEDICATIONS) 2. FACE TO FACE ENCOUNTER OBTAINING HISTORY FROM THE PATIENT/FAMILY/CAREGIVERS; PERFORMING EVALUATION AND EXAMINATION; ORDERING TESTS OR PROCEDURES; REFERRING AND COMMUNICATING WITH OTHER HEALTHCARE PROVIDERS; COUNSELING AND EDUCATION OF THE PATIENT/FAMILY/CAREGIVERS; INDEPENDENTLY INTERPRETING RESULTS (TESTS, LABS, PROCEDURES, IMAGING) AND COMMUNICATING AND EXPLAINING RESULTS TO THE PATIENT/FAMILY/CAREGIVERS 3. COORDINATION OF CARE; PREPARING AND PRINTING DISCHARGE INSTRUCTIONS AND ANY EDUCATIONAL MATERIAL FOR THE PATIENT/FAMILY/CAREGIVERS. DOCUMENTING CLINICAL INFORMATION IN THE ELECTRONIC MEDICAL RECORD 4. REVIEWING OARRS NEEDED MDM 1) COMPLEXITY: MORE THAN 1 STABLE CHRONIC CONDITION ADDRESSED OR 1 ACUTE ILLNESS ADDRESSED 2)DATA: TESTS INTERPRETED AND OR ORDERED, TOOK INDEPENDENT HISTORY OR RECORDS REVIEWED 3)RISK: MODERATE RISK DUE TO NATURE OF MEDICAL CONDITIONS/COMORBIDITY OR MEDICATIONS ORDERED OR SURGICAL OR PROCEDURE REFERRAL 1 MONTH WITH RM WITH LABS documented in this encounter [facility] Work Phone: 03-20-2023 Instructions JANINA Lara - 03/20/2023 3:40 PM EDT 1 month with labs with RM Cancel 04/11/23 documented in this encounter [facility] Work Phone: 03-14-2023 History of Present illness Narrative Subjective Patient ID: Johny Cuevas is a 22 y.o. female who presents for Follow-up (PAINFUL SWOLLEN LUMP IN GROIN AREA X3-4 DAYS). HPI: Presents today for C/O PAINFUL LUMP TO INSIDE RIGHT THIGH X 3-4 DAYS modifying factors consists of DENIES INJURY associated symptoms consist of BRUISE AFTER PUSHING ON IT prior treatment consists of medication NONE Visit Vitals BP 101/65 Pulse 86 Ht 1.575 m (5' 2 ) Wt 59.9 kg (132 lb) BMI 24.14 kg/m Smoking Status Former BSA 1.62 m Review of Systems Constitutional: Negative for chills, fatigue, fever and unexpected weight change. HENT: Negative for congestion, ear pain, sore throat and trouble swallowing. Eyes: Negative for photophobia, pain, redness and visual disturbance. Respiratory: Negative for apnea, cough, choking, chest tightness, shortness of breath and wheezing. Cardiovascular: Negative for chest pain, palpitations and leg swelling. Gastrointestinal: Negative for abdominal distention, abdominal pain, blood in stool, constipation, diarrhea, nausea and vomiting. Genitourinary: Negative for difficulty urinating, dysuria, flank pain, frequency, hematuria and urgency. Musculoskeletal: Negative for arthralgias, back pain, gait problem, joint swelling, myalgias and neck pain. Skin: Negative for rash and wound. SKIN LUMP Neurological: Negative for dizziness, seizures, syncope, facial asymmetry, speech difficulty, weakness, numbness and headaches. Psychiatric/Behavioral: Negative for confusion, sleep disturbance and suicidal ideas. The patient is not nervous/anxious. Objective Physical Exam Constitutional: Appearance: Normal appearance. She is normal weight. HENT: Head: Normocephalic. Eyes: Extraocular Movements: Extraocular movements intact. Conjunctiva/sclera: Conjunctivae normal. Pupils: Pupils are equal, round, and reactive to light. Cardiovascular: Rate and Rhythm: Normal rate and regular rhythm. Pulses: Normal pulses. Heart sounds: Normal heart sounds. Pulmonary: Effort: Pulmonary effort is normal. Breath sounds: Normal breath sounds. Musculoskeletal: General: Normal range of motion. Cervical back: Normal range of motion. Skin: General: Skin is warm and dry. Comments: LUMP FELT TO INSIDE INNER THIGH. TENDER. BRUISE NOTED Neurological: General: No focal deficit present. Mental Status: She is alert and oriented to person, place, and time. Psychiatric: Mood and Affect: Mood normal. Behavior: Behavior normal. Thought Content: Thought content normal. Judgment: Judgment normal. Assessment/Plan Problem List Items Addressed This Visit Hematologic Iron deficiency anemia Relevant Orders CBC and Auto Differential Hemoglobin A1C Comprehensive Metabolic Panel Lipid Panel Thyroid Stimulating Hormone Thyroxine, Free Triiodothyronine, Free Vitamin B12 Folate Ferritin Iron and TIBC Other Low thyroid stimulating hormone (TSH) level Relevant Orders CBC and Auto Differential Hemoglobin A1C Comprehensive Metabolic Panel Lipid Panel Thyroid Stimulating Hormone Thyroxine, Free Triiodothyronine, Free Vitamin B12 Folate Ferritin Iron and TIBC Abscess - Primary Relevant Medications amoxicillin-pot clavulanate (Augmentin) 875-125 mg tablet IF LUMP REMAINS AFTER ATB TX, SHE MAY NEED US TO FURTHER EVAL WE DISCUSSED MOST COMMON SIDE EFFECTS OF PRESCRIBED MEDICATIONS. INDICATIONS, RISK, COMPLICATIONS, AND ALTERNATIVES OF MEDICATION/THERAPEUTICS WERE EXPLAINED AND DISCUSSED. PLEASE MONITOR CLOSELY FOR ANY UNTOWARD SIDE EFFECTS OR COMPLICATIONS OF MEDICATIONS. PATIENT IS STRONGLY ADVISED TO BE COMPLIANT WITH RECOMMENDATIONS. QUESTIONS AND CONCERNS WERE ADDRESSED. INSTRUCTED TO CALL, RETURN SOONER, OR GO TO THE ER, IF SYMPTOMS PERSIST OR WORSEN. THEY VOICED UNDERSTANDING AND DENIES FURTHER QUESTIONS AT THIS TIME. TIME CODE 1. PREPARATION FOR PATIENT'S VISIT (REVIEWING CHART, CURRENT MEDICAL RECORDS, OUTSIDE HEALTH PROVIDER RECORDS, PREVIOUS HISTORY, EXAM, TEST, PROCEDURE, AND MEDICATIONS) 2. FACE TO FACE ENCOUNTER OBTAINING HISTORY FROM THE PATIENT/FAMILY/CAREGIVERS; PERFORMING EVALUATION AND EXAMINATION; ORDERING TESTS OR PROCEDURES; REFERRING AND COMMUNICATING WITH OTHER HEALTHCARE PROVIDERS; COUNSELING AND EDUCATION OF THE PATIENT/FAMILY/CAREGIVERS; INDEPENDENTLY INTERPRETING RESULTS (TESTS, LABS, PROCEDURES, IMAGING) AND COMMUNICATING AND EXPLAINING RESULTS TO THE PATIENT/FAMILY/CAREGIVERS 3. COORDINATION OF CARE; PREPARING AND PRINTING DISCHARGE INSTRUCTIONS AND ANY EDUCATIONAL MATERIAL FOR THE PATIENT/FAMILY/CAREGIVERS. DOCUMENTING CLINICAL INFORMATION IN THE ELECTRONIC MEDICAL RECORD 4. REVIEWING OARRS NEEDED MDM 1) COMPLEXITY: MORE THAN 1 STABLE CHRONIC CONDITION ADDRESSED OR 1 ACUTE ILLNESS ADDRESSED 2)DATA: TESTS INTERPRETED AND OR ORDERED, TOOK INDEPENDENT HISTORY OR RECORDS REVIEWED 3)RISK: MODERATE RISK DUE TO NATURE OF MEDICAL CONDITIONS/COMORBIDITY OR MEDICATIONS ORDERED OR SURGICAL OR PROCEDURE REFERRAL 1 MONTH WITH LABS WITH RM documented in this encounter [facility] Work Phone: 10-17-2022 Chief complaint Narrative - Reported An interactive audio and video telecommunication system which permits real time communications between the patient (at the originating site) and provider (at the distant site) was utilized to provide this telehealth service.Verbal consent was requested and obtained from JOHNY CUEVAS on this date, 10/17/2022 10:40 AM , for a telehealth visit.Pt vv 6 mnth fu with labs. [facility] Work Phone: 03-05-2022 Note Previous comment was modified by KATT at 15:06 on 03/09/2022 CULTURE IN PROGRESS. FINAL REPORT IN 72 HOURS. Culture examined for Group A Streptococcus, Group B Streptococcus, Neisseria gonorrhoeae and Yeast ONLY. NO Neisseria gonorrhoeae ISOLATED. PATIENT: JOHNY CUEVAS LOCATION: [id number] BILL#: [id number] : [birth year] AGE: SEX: F ORDERED BY: TAYLER HA SOURCE: GENITAL COLLECTED: 03/05/22 11:23 ANTIBIOTICS AT [place].: RECEIVED : 03/05/22 17:59 SITE: Vaginal Corrected Report R E S U L T S GENITAL CULTURE, BACT. FINAL 03/09/22 15:06 NO PATHOGENS Culture examined for Group A Streptococcus, Group B Streptococcus, Neisseria gonorrhoeae and Yeast ONLY. NO Neisseria gonorrhoeae ISOLATED. Previous comment was modified by KATT at 15:06 on 03/09/22. Culture examined for Group A Streptococcus, Group B Streptococcus, Neisseria gonorrhoeae and Yeast ONLY. NO Neisseria gonorrhoeae ISOLATED. [facility] documented in this encounter [facility] Work Phone: Evaluation note* Diagnosis Abscess- Primary Cellulitis and abscess of unspecified site Low thyroid stimulating hormone (TSH) level Iron deficiency anemia, unspecified iron deficiency anemia type documented in this encounter [facility] Work Phone: Evaluation note* Diagnosis Iron deficiency anemia, unspecified iron deficiency anemia type- Primary Ortiz's thyroiditis Chronic lymphocytic thyroiditis documented in this encounter [facility] Work Phone: History of Present illness [id number] G1 presents for follow-up viability ultrasound. Patient notes more breast tenderness nausea recently. Minimal cramps but no bleeding. Patient has no acute concerns.[address] Work Phone: History of Present illness Narrative* Patient presents today for..... * 1 cardio concerns * heart palp and near syncope * Pt states in Oct she exp tachycardia and pressure episodes and passed out twice. she has since followed up with cardio Dr Lion. she did have an echo and was told it was good and heart monitor - pre dominant NSR. Previously the cardio and I both discussed with her this was likely thyroiditis given cardiac findings looking ok * in office EKG was done again with sinus tachy and PAC * recent thyroid labs were norm so US was done and here to review * 2 mood * admits she may benefit from mood med as she questions if she is dealing with anxiety and this is causing some of her symptoms * she was on buspar in the past which offered some relief but she feels like she may need more * 3 hemorrhoids - * colace and meds were given - overall doing well now * 4 follow up thyroid US - ordered given some of her symptoms -[facility] Work Phone: History of Present illness [id number] G1, P1 presents for concern for yellow discharge and a lot of pain. Patient strongly anxious with baby in her recovery. Patient is no other acute concerns[facility] [employer] Work Phone: History of Present illness [id number] presents for 6-week status post spontaneous vaginal delivery. Patient doing well. Patient struggled with constipation despite Colace twice a day. Patient drinking tons of waterfor breast-feeding. doing well. Patient not sexually active. Patient is no period. Patient like discussed control. Patient is no other acute concernsWAsc[facility] [employer] Work Phone: History of Present illness Narrative* 21 YOF presents for FU after acute respiratory infection. She completed the ATB. She feels the ATB cleared the production of the cough, however, she continues with a dry, nonproductive cough and dyspnea some nights and during exercise. She also reports audible wheezing and a tickle sensation in herthroat when the coughing episodes occur. The symptoms were less intense and less frequent when she was taking prednisone. * She reports Albuterol inhaler is effective, 5 minutes after using Albuterol the wheezing and dyspnea subside. On average she is using the inhaler once daily. * Her father was diagnosed with asthma in his 30s. * No environmental allergies. She does have seasonal allergies. * She had COVID-19 09/2021. -[facility] Work Phone: History of Present illness Narrative* Patient presents today for..... * 1 urinary symptoms x 1 week * freq * - in office urine - neg blood, leukocytes, nitrates * - hx of UTI * symptoms are mild and given findings suggest she cont with fluids and cranberry supplement and willsend to culture. pt to call wed for results or call sooner if sx worsen for start of aBx * 2 med check * cardio concerns - symptoms are currently stable and off meds * mood -symptoms are currently stable and off meds * hemorrhoids - mindful of diet * thyroid - occasional hyperthyroid in the past- currently off meds. she does question symptoms givenher BP changes, heart rate, urinary symptoms, hair loss, fatigue - she is due for labs to be done now * allergies /asthma - on symbicort and rescue inhaler prn. previously discussed consider singulair but chose to help given she is . she believes symptoms have improved and is only using rescue inhaler at this time * * 1 year old son Tye and he is doing well. She cont to breastfeed [facility] Work Phone: History of Present illness Narrative* Patient presents today for..... * 1 to review labs * 2 med check * cardio concerns - symptoms are currently stable and off meds * mood -symptoms are currently stable and off meds * hemorrhoids - mindful of diet * thyroid - occasional hyperthyroid in the past- currently off meds. In Dec she question symptoms given her BP changes, heart rate, urinary symptoms, hair loss, fatigue - symptoms have resolved and denies changes as to why * allergies /asthma - on symbicort and rescue inhaler prn. previously discussed consider singulair but chose to help given she is . she believes symptoms have improved and is only using rescue inhaler at this time * * 1 year old son Tye and he is doing well. She cont to breastfeed [facility] Work Phone: History of Present illness Narrative* Pt. presents for annual exam * up to date on pap * Still with bothersome scar tissue from perineal repair at last , did use estrogen cream for a while * d/c contraception and open to next , will start folic acid [address] Work Phone: History of Present illness Narrative* Alexa Lancaster, ART-SCHEDULE PLANNING MANAGER - 02/08/2023 9:40 AM EDT Subjective Patient ID: Johny Cuevas is a 22 y.o. female who presents for Follow-up (1 WK F/U FOR ILLNESS . FEELS BETTER). VIRTUAL APPOINTMENT BEING PERFORMED DUE TO COVID-19 (CORONAVIRUS) HPI: Presents today for 1 WEEK FU ILLNESS. ALL SYMPTOMS HAVE RESOLVED. NO NEW COMPLAINTS HERPES- MED REFILL Visit Vitals Smoking Status Former Review of Systems Constitutional: Negative for chills, fatigue, fever and unexpected weight change. HENT: Negative for congestion, ear pain, sore throat and trouble swallowing. Eyes: Negative for photophobia, pain, redness and visual disturbance. Respiratory: Negative for apnea, cough, choking, chest tightness, shortness of breath and wheezing. Cardiovascular: Negative for chest pain, palpitations and leg swelling. Gastrointestinal: Negative for abdominal distention, abdominal pain, blood in stool, constipation, diarrhea, nausea and vomiting. Genitourinary: Negative for difficulty urinating, dysuria, flank pain, frequency, hematuria and urgency. Musculoskeletal: Negative for arthralgias, back pain, gait problem, joint swelling, myalgias and neck pain. Skin: Negative for rash and wound. Neurological: Negative for dizziness, seizures, syncope, facial asymmetry, speech difficulty, weakness, numbness and headaches. Psychiatric/Behavioral: Negative for confusion, sleep disturbance and suicidal ideas. The patient is not nervous/anxious. Objective Physical Exam Neurological: Mental Status: She is alert. Psychiatric: Mood and Affect: Mood normal. Behavior: Behavior normal. Thought Content: Thought content normal. Judgment: Judgment normal. Assessment/Plan Problem List Items Addressed This Visit Genitourinary Genital herpes - Primary Relevant Medications acyclovir (Zovirax) 400 mg tablet WE DISCUSSED MOST COMMON SIDE EFFECTS OF PRESCRIBED MEDICATIONS. INDICATIONS, RISK, COMPLICATIONS, AND ALTERNATIVES OF MEDICATION/THERAPEUTICS WERE EXPLAINED AND DISCUSSED. PLEASE MONITOR CLOSELY FORANY UNTOWARD SIDE EFFECTS OR COMPLICATIONS OF MEDICATIONS. PATIENT IS STRONGLY ADVISED TO BE COMPLIANT WITH RECOMMENDATIONS. QUESTIONS AND CONCERNS WERE ADDRESSED. INSTRUCTED TO CALL, RETURN SOONER, OR GO TO THE ER, IF SYMPTOMS PERSIST OR WORSEN. THEY VOICED UNDERSTANDING AND DENIES FURTHER QUESTIONS AT THIS TIME. TIME CODE 1. PREPARATION FOR PATIENT'S VISIT (REVIEWING CHART, CURRENT MEDICAL RECORDS, OUTSIDE HEALTH PROVIDER RECORDS, PREVIOUS HISTORY, EXAM, TEST, PROCEDURE, AND MEDICATIONS) 2. FACE TO FACE ENCOUNTER OBTAINING HISTORY FROM THE PATIENT/FAMILY/CAREGIVERS; PERFORMING EVALUATION AND EXAMINATION; ORDERING TESTS OR PROCEDURES; REFERRING AND COMMUNICATING WITH OTHER HEALTHCARE PROVIDERS; COUNSELING AND EDUCATION OF THE PATIENT/FAMILY/CAREGIVERS; INDEPENDENTLY INTERPRETING RESULTS (TESTS, LABS, PROCEDURES, IMAGING) AND COMMUNICATING AND EXPLAINING RESULTS TO THE PATIENT/FAMILY/CAREGIVERS 3. COORDINATION OF CARE; PREPARING AND PRINTING DISCHARGE INSTRUCTIONS AND ANY EDUCATIONAL MATERIALFOR THE PATIENT/FAMILY/CAREGIVERS. DOCUMENTING CLINICAL INFORMATION IN THE ELECTRONIC MEDICAL RECORD 4. REVIEWING OARRS NEEDED MDM 1) COMPLEXITY: MORE THAN 1 STABLE CHRONIC CONDITION ADDRESSED OR 1 ACUTE ILLNESS ADDRESSED 2)DATA: TESTS INTERPRETED AND OR ORDERED, TOOK INDEPENDENT HISTORY OR RECORDS REVIEWED 3)RISK: MODERATE RISK DUE TO NATURE OF MEDICAL CONDITIONS/COMORBIDITY OR MEDICATIONS ORDERED OR SURGICAL OR PROCEDURE REFERRAL Follow up as before documented in this [facility] Work Phone: Hospital Discharge instructions* Activity:Return to normal activity as tolerated. * Patient Instructions:Pelvic Rest: DO NOT place anything in vagina until cleared by OB Provider. * Follow-Up - OB Provider:Physician/Dept/Service: OB Provider, Dr. Godinez to Schedule in: 6 weeks, * Gold Form - Other Clinicians:Other Clinician Instructions: Any woman can have complications after the of a baby including a blood clot, a heart problem, hypertensive disorder/eclampsia, depression, hemorrhage, or infection. Notify all providers of your delivery date up to one year after .* Call 911 or go to nearest emergency room right away if you have: PAIN or pressure in chest; OBSTRUCTED breathing or shortness of breath; SEIZURES; THOUGHTS of hurting yourself or your baby; heart palpitations/racing; change in alertness/confusion.Call your provider if you have: BLEEDING, soaking t hrough a pad/hour, or blood clots the size of an egg or bigger; INCISION (episiotomy stitches or site) that is not healing (increased redness, pain, drainage/pus, or separation); RED or swollen leg/calf that is painful or warm to touch, especially in one leg more than the other; TEMPERATURE of 100.4 F or higher or chills; HEADACHE that does not get better with medicine, rest or hydration, or bad headache with vision changes like spots or flashing lights; increased swelling of face, hands or legs; severe cramps or upper right belly pain; red or swollen breast that is painful or warm to touch; an unusual, foul odor from your vaginal discharge; pain, burning, or difficulty during urination; severe constipation (more than 5 days); feelings of depression (such as depressed mood, lossof interest in enjoyable things, unable to care for yourself, trouble sleeping, lack of appetite, or feeling worthless). If you can t reach your provider or symptoms worsen, call 911 or go to [facility] room. *Information obtained from JASMYNE s: Save Your Life: Get Care for These POST- Warning SignsOn Behalf on the [facility] Maternity Staff, Congratulations on your . It was our pleasure to take care of you and your during your stay. We hope during this stay that we have exceeded all of your expectations. We will be calling you in a few days to check up on you and your infant. Please allow us to speak with you and please ask questions or let us know if you have any concerns. If you need any assistance after you go home please give us a call. Also, please join our [facility] Support Group which meets the saturday of every month at 10 am in the OB unit. No need to register. If you have any questions please call us at [phone]. Again, Congratulations! Warmest Regards,[facility]'s Maternity Staff [facility] Summary Purpose Family History No Family History Records Found Mother Name Dates Details No pertinent family history( V49.89, Z78.9) Status:Active Father Name Dates Details No pertinent family history( V49.89, Z78.9) Status:Active Mother Name Dates Details No pertinent family history( V49.89, Z78.9) Status:Active Father Name Dates Details No pertinent family history( V49.89, Z78.9) Status:Active Unknown Family Member Name Dates Details No pertinent family history: Mother, Father(V49.89, Z78.9) Status:Active Unknown Family Member Name Dates Details No pertinent family history: Mother, Father(V49.89, Z78.9) Status:Active Unknown Family Member Name Dates Details No pertinent family history: Mother, Father(V49.89, Z78.9) Status:Active Unknown Family Member Name Dates Details No pertinent family history: Mother, Father(V49.89, Z78.9) Status:Active Unknown Family Member Name Dates Details No pertinent family history: Mother, Father(V49.89, Z78.9) Status:Active Unknown Family Member Name Dates Details No pertinent family history: Mother, Father(V49.89, Z78.9) Status:Active Unknown Family Member Name Dates Details No pertinent family history: Mother, Father(V49.89, Z78.9) Status:Active Unknown Family Member Name Dates Details No pertinent family history: Mother, Father(V49.89, Z78.9) Status:Active Unknown Family Member Name Dates Details No pertinent family history: Mother, Father(V49.89, Z78.9) Status:Active Unknown Family Member Name Dates Details No pertinent family history: Mother, Father(V49.89, Z78.9) Status:Active Unknown Family Member Name Dates Details No pertinent family history: Mother, Father(V49.89, Z78.9) Status:Active Unknown Family Member Name Dates Details No pertinent family history: Mother, Father(V49.89, Z78.9) Status:Active Unknown Family Member Name Dates Details No pertinent family history: Mother, Father(V49.89, Z78.9) Status:Active Unknown Family Member Name Dates Details No pertinent family history: Mother, Father(V49.89, Z78.9) Status:Active Unknown Family Member Name Dates Details No pertinent family history: Mother, Father(V49.89, Z78.9) Status:Active Unknown Family Member Name Dates Details No pertinent family history: Mother, Father(V49.89, Z78.9) Status:Active Unknown Family Member Name Dates Details No pertinent family history: Mother, Father(V49.89, Z78.9) Status:Active Unknown Family Member Name Dates Details No pertinent family history: Mother, Father(V49.89, Z78.9) Status:Active Unknown Family Member Name Dates Details No pertinent family history: Mother, Father(V49.89, Z78.9) Status:Active Unknown Family Member Name Dates Details No pertinent family history: Mother, Father(V49.89, Z78.9) Status:Active Unknown Family Member Name Dates Details No pertinent family history: Mother, Father(V49.89, Z78.9) Status:Active Unknown Family Member Name Dates Details No pertinent family history: Mother, Father(V49.89, Z78.9) Status:Active Unknown Family Member Name Dates Details No pertinent family history: Mother, Father(V49.89, Z78.9) Status:Active Unknown Family Member Name Dates Details No pertinent family history: Mother, Father(V49.89, Z78.9) Status:Active Unknown Family Member Name Dates Details No pertinent family history: Mother, Father(V49.89, Z78.9) Status:Active Unknown Family Member Name Dates Details No pertinent family history: Mother, Father(V49.89, Z78.9) Status:Active Unknown Family Member Name Dates Details No pertinent family history: Mother, Father(V49.89, Z78.9) Status:Active Unknown Family Member Name Dates Details No pertinent family history: Mother, Father(V49.89, Z78.9) Status:Active Unknown Family Member Name Dates Details No pertinent family history: Mother, Father(V49.89, Z78.9) Status:Active Unknown Family Member Name Dates Details No pertinent family history: Mother, Father(V49.89, Z78.9) Status:Active Unknown Family Member Name Dates Details No pertinent family history: Mother, Father(V49.89, Z78.9) Status:Active Unknown Family Member Name Dates Details No pertinent family history: Mother, Father(V49.89, Z78.9) Status:Active Unknown Family Member Name Dates Details No pertinent family history: Mother, Father(V49.89, Z78.9) Status:Active Unknown Family Member Name Dates Details No pertinent family history: Mother, Father(V49.89, Z78.9) Status:Active Unknown Family Member Name Dates Details No pertinent family history: Mother, Father(V49.89, Z78.9) Status:Active Unknown Family Member Name Dates Details No pertinent family history: Mother, Father(V49.89, Z78.9) Status:Active Unknown Family Member Name Dates Details No pertinent family history: Mother, Father(V49.89, Z78.9) Status:Active Unknown Family Member Name Dates Details No pertinent family history: Mother, Father(V49.89, Z78.9) Status:Active Unknown Family Member Name Dates Details No pertinent family history: Mother, Father(V49.89, Z78.9) Status:Active Unknown Family Member Name Dates Details No pertinent family history: Mother, Father(V49.89, Z78.9) Status:Active Unknown Family Member Name Dates Details No pertinent family history: Mother, Father(V49.89, Z78.9) Status:Active Unknown Family Member Name Dates Details No pertinent family history: Mother, Father(V49.89, Z78.9) Status:Active Unknown Family Member Name Dates Details No pertinent family history: Mother, Father(V49.89, Z78.9) Status:Active Advance Directives No Advanced Directives Records FoundNo Advanced Directives Records FoundNo Advanced Directives Records FoundNo Advanced Directives Records FoundNo Advanced Directives Records FoundNo Advanced Directives Records FoundNo Advanced Directives Records FoundNo Advanced Directives Records Found Reason for Referral Status Reason Specialty Diagnoses / Procedures Referred By Contact Referred To Contact New Request Procedures ECG Marybel Bustos PA-C [address] [place] [address] Discharge Instructions * Instructions* Marybel Bustos PA-C - 10/31/2020 Your blood work is normal, heart testing normal, and imaging normal today. Follow up with cardiology for further evaluation of passing out and palpitations. * Attachments The following attachments cannot be sent through Care Everywhere. * Palpitations (Polish) * Fainting (Polish) documented in this encounter Assessments Diagnosis Syncope, unspecified syncope type- Primary Palpitations Chief Complaint Patient presents today as a new patient for amenorrhea. Patient states she is having breast tenderness, nausea, cramping and lower back pain. Patient states that she was taking oral control at the time of conception and took it until she found out she was which was 3 weeks from her last period. LMP- 1Patient presents today for a 2 week viability scan and states she has no questions or concerns. LMP MONTH F/U MED CHECK. PATIENT IS CURRENTLY [address] W[address] - DR. GOMEZ IS OB. PATIENT HAS D/C ALL MEDS DUE TO BUT CLAIMS HER ANXIETY AND DEPRESSION HAS BEEN PRETTY GOOD DESPITE NO MEDS.2 MONTH F/U MED CHECK. PATIENT IS CURRENTLY [address] WEE[address] - DR. GOMEZ IS OB. PATIENT HAS D/C ALL MEDS DUE TO BUT CLAIMS HER ANXIETY AND DEPRESSION HAS BEEN PRETTY GOOD DESPITE NO MEDS.PT DELIVERED VAGINALLY ON 11/07/2021 HERE TODAY FOR A DARK YELLOW DISCHARGE WITH A SLIGHT ODOR X'S 1DAY. STATES HAS NOTICED THE DISCHARGE HAS INCREASED. BREAST FEEDING AND HAS NOTICED DEPRESSION/ANXIETY.PT IS HERE TODAY FOR A 6 WEEK POST . STATES HAS BEEN VERY CONSTIPATED. STATES HER VAGINAL AREA IS STILL UNCOMFORTABLE. BREAST FEEDING. DENIES ANY DEPRESSION. INTERESTED IN B/C. HAS NOT BEEN SEXUALLY ACTIVE. HAS NOT STARTED HER PERIOD.TELEPHONE- PT HAS HAD COUGH,RUNNY NOSE,AND STUFFY NOSE X 1 MONTH. PT STATES THAT 1-2 NIGHTS A WEEKSSHE VOMITS WITH COUGHING FITS AND IS WHEEZING MORE. NO TEMP. NO LOSS OF SMELL OR TASTE. NO HEADACHE,ST, OR DIARRHEA. PT DID HOME COVID TEST LAST WEEK (NEGATIVE). USING NATURAL MEDICATIONS IN NEBULIZER AND NATURAL MEDICATIONS.* A telephone visit (audio only) between the patient (at the originating site) and the provider (at the distant site) was utilized to provide this telehealth service. * TELEPHONE- PT HAS HAD COUGH,RUNNY NOSE,AND STUFFY NOSE X 1 MONTH. PT STATES THAT 1-2 NIGHTS A WEEKSSHE VOMITS WITH COUGHING FITS AND IS WHEEZING MORE. NO TEMP. NO LOSS OF SMELL OR TASTE. NO HEADACHE,ST, OR DIARRHEA. PT DID HOME COVID TEST LAST WEEK (NEGATIVE). USING NATURAL MEDICATIONS IN NEBULIZER AND NATURAL MEDICATIONS. 2 WK F/U WITH CXR STILL HAVING A HARD TIME BREATHING1 MONTH F/U WITH PFT. PATIENT STATES BREATHING HAS IMPROVED WITH INHALER USE. C/O SINUS CONGESTION AND DRAINAGE OFF/ON SINCE MOVING INTO NEW HOME [place] LOTS OF DUST - CONCERNED SYMPTOMS MAY BEALLERGY RELATED.URINARY FREQUENCY X 7-10 DAYS. PT ALSO HAS THYROID ISSUES. PT IS CURRENTLY * Patient is here for yearly exam. Patient does NOT DO self breast exams regularly. LMP 11/06/22 * PT WANTED A TEST RAN IN OFFICE, PT HAS BEEN OFF CONTROL FOR A MONTH NOW. HCG WAS NEGATIVE. PT ALSO C/O LEFT OVARY PAIN. PT STATES SHE HAS BEEN HAVING SEVERE CRAMPING ON THE LEFT SIDE. Additional Source Comments INFORMATION SOURCE (unrecogn ized section and content) DATE CREATED AUTHOR AUTHOR'S ORGANIZ ATION 06/19/2019 [facility] DATE CREATED AUTHOR AUTHOR'S ORGANIZ ATION 11/10/2020 [facility] DATE CREATED AUTHOR AUTHOR'S ORGANIZ ATION 01/04/2023 [facility] DATE CREATED AUTHOR AUTHOR'S ORGANIZ ATION 2023 [facility] DATE CREATED AUTHOR AUTHOR'S ORGANIZ ATION 04/23/2023 [facility] DATE CREATED AUTHOR AUTHOR'S ORGANIZ ATION 04/24/2023 [facility] DATE CREATED AUTHOR AUTHOR'S ORGANIZ ATION 06/02/2023 [facility] Reason for Visit (unrecogniz ed section and content) Reason Comments Follow-up 1 WK F/U FOR ILLNESS . FEELS BETTER Reason Comments Follow-up PAINFUL SWOLLEN LUMP IN GROIN AREA X3-4 DAYS Reason Comments Results NO ADDITIONAL CONCER NS Reny Lorenzana RN - 10/31/2020 6:57 PM Robert Fox MD - 10/31/2020 5:01 PM EST ED Notes (unrecognized secti on and content) Discharge instructions reviewed in detail, verbally voices understanding. N/c voiced. Aware to call PCP for follow-up. Aware to return for any problems or concerns. Patient was seen by me as well as the PA all medical decision making and course was discussed with me. 20-year-old female states she passed out today twice. She states she has a history of passing out but she states today she felt some discomfort in the chest. She states it was not really chest pain.. Not necessarily palpitations. She denies trauma. She denies fall. She denies calf pain. She denies any recent weight loss. She states her heart was going fast today at about 120 when she first woke up Exam: Well-nourished like hydrated nontoxic. Head is atraumatic. Face is symmetric. Mucous membranes are well-hydrated and moist. Nose without exudates. Lungs sounds are clear. Heart tones are regular. Heart rate is 106 bpm. Skin is warm and dry. Nailbeds are pink. Neurologically she is awake alert and oriented. Calves are nontender. Negative Homans sign. Robert Linares MD 10/31/20 [id number] documented in this encounter <item><item> Privacy Markings (unrecogniz ed section and content) Section Author: Dougherty, Siena PROHIBITION ON REDISCLOSURE OF CONFIDENTIAL INFORMATION This notice accompanies a disclosure of information concerning a client made to you with the consent of such client. Section Author: Siena Dougherty PROHIBITION ON REDISCLOSURE OF CONFIDENTIAL INFORMATION This notice accompanies a disclosure of information concerning a client made to you with the consent of such client. Care Teams (unrecognized sec tion and content) Safety Analyst Relationship Specialty Start Date End Date Chrystal Harrington PA-C [address] [place] [address] PCP - General 06/16/19 Chrystal Harrington PA-C [address] [place] [address] PCP - Douglas SALAZAR PCP 05/14/22 FOR RECORDS PERTAINING TO PATIENTS WHO ARE OR HAVE BEEN ENROLLED IN A CHEMICAL DEPENDENCY/SUBSTANCEABUSE PROGRAM, SOME INFORMATION MAY BE OMITTED. This clinical summary was aggregated from multiple sources. Caution should be exercised in using it in the provision of clinical care. This summary normalizes information from multiple sources, and as a consequence, information in this document may materially change the coding, format and clinical context of patient data. In addition, data may be omitted in some cases. CLINICAL DECISIONS SHOULD BE BASED ON THE PRIMARY CLINICAL RECORDS. [facility]. provides no warranty or guarantee of the accuracy or completeness of information in this document.
== END 2023-10-16 21:28 | disposition home or self-care (01) ==
PROVIDERS: Emergency Provider Emergency Medicine; PCP Physician Assistant Medical; Visit Provider Emergency Medicine
DX: O99.283 Endocrine, nutritional and metabolic diseases complicating pregnancy, third trimester (principal); E88.89 Other specified metabolic disorders; E06.3 Autoimmune thyroiditis; O99.013 Anemia complicating pregnancy, third trimester; R55 Syncope and collapse; D64.9 Anemia, unspecified; Z3A.00 Weeks of gestation of pregnancy not specified; Z79.82 Long term (current) use of aspirin; Z79.899 Other long term (current) drug therapy; Z87.891 Personal history of nicotine dependence
CPT/HCPCS: 81001; 85025; 93005; 99285; A4216

== ENCOUNTER → 2023-10-17 | Outpatient (CLI) | payer OTHER, MEDICAID, SELFPAY ==
[2023-10-17 10:21] LABS: Absolute Lymphocyte Count 1.11 X10^3/uL (0.83-4.51); Absolute Neutrophil Count 5.7 X10^3/uL (2.0-7.7); Basophil# 0.06 X10^3/uL; Basophil% 0.8 % (0-1); Eosinophil# 0.23 X10^3/uL; Eosinophils% 2.9 % (0-5); Hematocrit 28.6 % (37-47); Hemoglobin 9.4 g/dL (12.0-15.0); Lymphocyte # 1.11 X10^3/ul (0.83-4.51); Lymphocyte % 14.1 % (19-41); Mean Corp Hgb Conc 32.9 g/dL (32-36); Mean Corpuscular Volume 85.1 fL (81-99); Monocyte# 0.45 X10^3/uL; Monocyte% 5.7 % (0-10); NRBC Flagged by Analyzer 0 % (0-5); Neutrophil # 5.72 X10^3/uL (2.7-7.7); Neutrophil % 72.9 % (47-70); Platelet Count 279 K/mm3 (150-450); RBC Distribution Width CV 12.1 % (11.6-14.6); RBC Distribution Width SD 37.2 fl (35.1-43.9); Red Blood Count 3.36 M/mm3 (4.2-5.4); White Blood Count 7.9 K/mm3 (4.4-11.0)
[2023-10-17 10:39] LABS: Glucose Challenge Gest 1H 50g 141 mg/dL (70-140); T4 Free Direct 0.87 ng/dL (0.76-1.46); Thyroid Stim Hormone (TSH) 1.99 uIU/mL (0.358-3.74)
[2023-10-17 11:06] LABS: HIV - WCH Non-Reactive (Nonreactive); Syphilis Antibodies Non-reactive
== END | disposition home or self-care (01) ==
PROVIDERS: PCP Physician Assistant Medical; Referring Provider Advanced Practice Midwife; Visit Provider Advanced Practice Midwife
DX: O99.019 Anemia complicating pregnancy, unspecified trimester (principal); O26.899 Other specified pregnancy related conditions, unspecified trimester; Z67.91 Unspecified blood type, Rh negative; O99.280 Endocrine, nutritional and metabolic diseases complicating pregnancy, unspecified trimester; E06.3 Autoimmune thyroiditis; Z3A.00 Weeks of gestation of pregnancy not specified
CPT/HCPCS: 36415; 82950; 84439; 84443; 85025; 86703; 86780; 86850; 86900; 86901

== ENCOUNTER 2023-10-18 08:53 | Outpatient (CLI) | payer OTHER, MEDICAID, SELFPAY ==
[2023-10-18 09:06] VITALS: BP 108/59; PULSE 109; RESP 16; TEMP 36.7; O2SAT 99
[2023-10-18] MEDS: 0.9% NaCl Peripheral Flush Adult/Peds IV (09:20)
[2023-10-18] MEDS: Iron Sucrose Complex 300 MG in 0.9% Normal Saline (250mL Bag) 250 ML 177 MG IV (09:35)
[2023-10-18] MEDS: 0.9% NaCl IVPB Med Flush (250 mL) 15 ML IV (09:35)
[2023-10-18 11:51] VITALS: BP 102/56; PULSE 95; RESP 16; TEMP 37.1; O2SAT 96
== END 2023-10-18 08:54 | disposition home or self-care (01) ==
LOC: MEDOUTP 08:54
PROVIDERS: PCP Physician Assistant Medical; Referring Provider Nurse Practitioner Women's Health; Visit Provider Nurse Practitioner Women's Health
DX: O99.019 Anemia complicating pregnancy, unspecified trimester (principal); D64.9 Anemia, unspecified; Z3A.00 Weeks of gestation of pregnancy not specified
CPT/HCPCS: 96365; 96366; J1756; J7050; A4216

== ENCOUNTER → 2023-10-23 | Outpatient (CLI) | payer OTHER, MEDICAID, SELFPAY ==
--- OUTSIDE RECORDS SUMMARY | 2023-10-23 07:03 | XMS RPT_ITS | CCD ---
Author Name Unknown Address [id number] [place] [address] Organization [facility] Care Team Providers Care Vehicle Service Attendant Name Role Phone MILADIS DOHERTY Admitting UnavailMILADIS John Attending Unavailrubina PEÑA NO PCP, NO PCP Primary Care Unavailable Chrystal Harrington Unavailable Unavailable Chrystal Harrington Unavailable Unavailable Vianney Guerra Unavailable Unavailable Alexa Beyer Unavailable Unavailable Wallace Lion Unavailable Unavailable Chrystal Harrington Primary Care Provider Chrystal Harrington Unavailable [phone] Unavailable Unavailable Chrystal Harrington Unavailable Vianney Guerra Unavailable Ferny Rooney Unavailable Unavailable Paulino Gomez Unavailable ZOIE HARRINGTON Attending ZOIE Chambers Referring ZOIE Chambers Primary Care Ms. Kayleigh Patel Attending Unavail mirian Chawla, Ms. Kayleigh Peters Referring Unavail able ZOIE HARRINGTON Primary Care ZOIE Chambers Referring ZOIE Chambers Primary Care ZOIE Chambers Attending Dr. Tayler Gamez Attending Sasha Ha, Dr. Tayler Butcher Referring Unav ZOIE Lu Primary Care Yesijoaquinarozina mujicajulieta Boyer, Ms. Rochelle Marie Referring Unavailabl ZOIE Goldsmith Primary Care Lacho Boyer, Ms. Rochelle Marie Attending Unavailabl e ZOIE HARRINGTON Referring Unavai labZOIE Garcia Primary Care Unavai ZOIE Flores Attending YesivaZOIE Mar Attending UnavaZOIE Mar Referring Unavai labZOIE Garcia Primary Care Unavai labChrystal Garcia PA-C Primary Care Provider Chrystal Harrington PA-C Unavailable Ms. Chrystal Harrington Primary Care Unav ailmirian [place], MsAgatha Carrington Attending Unavailab le CHRYSTAL HARRINGTON Primary Care Unavailable CHRYSTAL HARRINGTON B Primary Care Unavailable CHRYSTAL HARRINGTON Primary Care Unavailable CHRYSTAL HARRINGTON Attending Unavailable CHRYSTAL HARRINGTON Primary Care Unavailable ALEXA LANCASTER Attending Unavailable CHRYSTAL HARRINGTON Primary Care Unavailable ALEXA LANCASTER Attending Unavailable CHRYSTAL HARRINGTON B Primary Care Unavailable ALEXA LANCASTER Attending Unavailable CHRYSTAL HARRINGTON Primary Care Unavailable ALEXA LANCASTER Attending Unavailable CHRYSTAL HARRINGTON Primary Care Unavailable ALEXA LANCASTER Attending Unavailable CHRYSTAL HARRINGTON B Primary Care Unavailable Allergies Allergy Classification Reported Allergen(s) Allergy Type Date of Onset Reaction(s) Facility Acetaminophen / HYDROcodone (12 sources) Acetaminophen / HYDROcodone; Translations: [Vicodin TABS] Drug Allergy [facility] [address] Work Phone: Latex (20 sources) Latex rubber gloves; Translations: [Latex Gloves] Substance Allergy [address] Work Phone: Opioid Agonists (20 sources) HYDROmorphone; Translations: [Dilaudid] Drug Allergy [facility] [address] Work Phone: (20 sources) Acetaminophen / HYDROcodone; Translations: [Vicodin TABS] Drug Allergy 1 [facility], Other [facility] Work Phone: (20 sources) HYDROcodone; Translations: [hydrocodone] Drug Allergy 3 [facility], Other [facility] Work Phone: (20 sources) HYDROmorphone; Translations: [Dilaudid] Drug Allergy [facility] Work Phone: (7 sources) HYDROmorphone; Translations: [HYDROMORPHONE] Drug Allergy 1 [facility], [facility] (20 sources) Latex rubber gloves; Translations: [Latex Gloves] Allergy to drug (finding) [facility] [address] Work Phone: (20 sources) natural latex rubber; Translations: [LATEX] Allergy to substance (finding) [address] [facility] (5 sources) guaiFENesin / HYDROcodone Drug Allergy 3 Other [facility] (4 sources) Latex Allergy to substance 3 [facility] Work Phone: (2 sources) Acetaminophen / HYDROcodone; Translations: [HYDROCODONE-ACET AMINOPHEN] Drug Allergy [address] [facility] (2 sources) HYDROCODONE-GUAIF ENESIN; Translations: [HYDROCODONE-GUAI FENESIN] Propensity to adverse reactions to drug (disorder) [address] [facility] Medications Current Medications Medication Drug Class(es) Dates [...] Ordered: 29-Dec-2021 DO Start : 29-Dec-2021 Complete bifidobacterium animalis [id number] unt / lactobacillus acidophilus [id number] unt oral capsule (20 sources) End: 10-18-2023 take 1 capsule by mouth once daily L. acidophilus/Bifid . animalis 32 billion cell capsule Take 1 capsule by mouth once daily. 0 10/18/2023 Discontinued (Therapy completed) Problems Active Problems Problem Classification Problem Date Documented Da te Episodic/Chronic Abdominal pain (20 sources) Right upper quadrant abdominal tenderness; Translations: [Left upper quadrant abdominal tenderness] Onset: 9 Episodic Administrative/social admission (4 sources) Patient encounter status; Translations: [Health examination of defined subpopulations] Episodic Anxiety disorders (20 sources) Mixed anxiety and depressive disorder; Translations: [Dysthymic disorder] Onset: 3 01-30-2023 Chronic Asthma (20 sources) Uncomplicated moderate persistent asthma; Translations: [Asthma, unspecified type, unspecified] Onset: 3 01-30-2023 Chronic Cardiac dysrhythmias (20 sources) Palpitations; Translations: [Palpitations] Episodic Deficiency and other anemia (2 sources) Anemia due to blood loss; Translations: [Iron deficiency anemia secondary to blood loss (chronic)] 11-08-2021 Chronic Deficiency and other anemia (20 sources) Anemia; Translations: [Anemia, unspecified] Episodic Diabetes mellitus without complication (5 sources) [...] with status migrainosus] Onset: 3 01-30-2023 Chronic Immunizations and screening for infectious disease (20 sources) Contact with and (suspected) exposure to other viral communicable diseases; Translations: [Patient encounter status] Onset: 9 Episodic Malaise and fatigue (15 sources) Malaise and fatigue; Translations: [Other malaise and fatigue] Episodic Menopausal disorders (8 sources) Atrophic vaginitis; Translations: [Postmenopausal atrophic vaginitis] Chronic Menstrual disorders (7 sources) Menorrhagia; Translations: [Excessive or frequent menstruation] Chronic Mood disorders (13 sources) Mild major depression, single episode; Translations: [...] 11-08-2021 Episodic Other aftercare (1 source) Other senior care (current) drug therapy; Translations: [OTH TECHNICAL TRAINING SPECIALIST CURRENT DRUG THERAPY] Onset: 9 Episodic Other [...] 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-2023 Chronic Other eye disorders (5 sources) Chalazion; Translations: [...] Problem Classification Problem Date Documented Date Episodic/Chronic Deficiency and other anemia (15 sources) Iron deficiency anemia; Translations: [Iron deficiency anemia, unspecified] Onset: 01-30-2023 01-30-2023 Episodic Deficiency and other anemia (4 sources) Iron deficiency anemia, unspecified; Translations: [Iron deficiency anemia, unspecified] Onset: 01-30-2023 Episodic Hemorrhoids (20 sources) External hemorrhoids; Translations: [External hemorrhoids without mention of complication] Onset: 01-30-2023 01-30-2023 Episodic Other complications of (20 sources) RhD negative; Translations: [Other specified complications of , antepartum condition or complication] Resolved: 11-10-2021 Episodic Other connective tissue disease (20 sources) Temporomandibular joint crepitus; Translations: [Temporomandibular joint sounds on opening and/or closing the jaw] Onset: 01-30-2023 01-30-2023 Episodic Other screening for suspected conditions (not mental disorders or infectious disease) (20 sources) Cancer cervix - screening done; Translations: [Cancer cervix screening status] Onset: 01-30-2023 01-30-2023 Episodic Pleurisy; pneumothorax; pulmonary collapse (4 sources) Pleurisy; Translations: [Pleurisy] Onset: 01-30-2023 01-30-2023 Episodic Skin and subcutaneous tissue infections (6 sources) Abscess; Translations: [Cutaneous abscess, unspecified] Onset: 03-14-2023 03-14-2023 Episodic Thyroid disorders (20 sources) Pain in thyroid; Translations: [Other specified disorders of thyroid] Onset: 01-30-2023 01-30-2023 Episodic Unclassified (4 sources) Patient encounter status; Translations: [Immunity status testing] Unclassified (20 sources) Finding of menstrual bleeding; Translations: [Menstruation] Results Test Name Value Interpretation Reference Range Facil ity Vital Signs Date Time Vital Sign Value Performing Clinician Facility 03-14-2023 15:04-0400 Body height 157.5 cm Alexa Lancaster APRN-[employer] Work Phone: [facility] 03-14-2023 15:04-0400 Body mass index (BMI) [Ratio] 24.14 kg/m2 Alexa Lancaster APRN-[employer] Work Phone: [facility] 03-14-2023 15:04-0400 Body weight 59.88 kg Alexa Lancaster APRN-[employer] Work Phone: [facility] 03-14-2023 15:04-0400 Diastolic blood pressure 65 mm[Hg] Alexa Lancaster APRN-[employer] Work Phone: [facility] 03-14-2023 15:04-0400 Heart rate 86 /min Alexa Lancaster APRN-[employer] Work Phone: [facility] 03-14-2023 15:04-0400 Systolic blood pressure 101 mm[Hg] Alexa Lancaster APRN-[employer] CLERK Work Phone: [facility] 12-06-2022 13:21-0500 Body height 157.48 cm Chrystal Harrington Work Phone: [address] Work Phone: 12-06-2022 13:21-0500 Body mass index (BMI) [Ratio] 23.85 kg/m2 Chrystal Harrington Work Phone: [place] [address] [address] Work Phone: 12-06-2022 13:21-0500 Body surface area Derived from formula 1.59 m2 Chrystal Harrington Work Phone: [place] [address] [address] Work Phone: 12-06-2022 13:21-0500 Body weight 59.13 kg Chrystal Harrington Work Phone: [address] Work Phone: 12-06-2022 13:21-0500 Diastolic blood pressure 70 mm[Hg] Chrystal Harrington Work Phone: [address] Work Phone: 12-06-2022 13:21-0500 Systolic blood pressure 108 mm[Hg] Chrystal Harrington Work Phone: [address] Work Phone: 09-24-2022 14:10-0500 Body height 157.48 cm Chrystal Harrington Work Phone: [facility] Work Phone: 09-24-2022 14:10-0500 Body mass index (BMI) [Ratio] 24.14 kg/m2 Chrystal Vallejoall Work Phone: [facility] Work Phone: 09-24-2022 14:10-0500 Body surface area Derived from formula 1.6 m2 Chrystal Vallejoall Work Phone: [facility] Work Phone: 09-24-2022 14:10-0500 Body weight 59.88 kg Chrystal Vallejoall Work Phone: [facility] Work Phone: 09-24-2022 14:10-0500 Diastolic blood pressure 78 mm[Hg] Chrystal Harrington Work Phone: [facility] Work Phone: 09-24-2022 14:10-0500 Heart rate 100 /min Chrystal Harrington Work Phone: [facility] Work Phone: 09-24-2022 14:10-0500 SaO2% (BldA) [Mass fraction] 97 % Chrystal Harrington Work Phone: [facility] Work Phone: 09-24-2022 14:10-0500 Systolic blood pressure 110 mm[Hg] Chrystal Harrington Work Phone: [facility] Work Phone: 03-05-2022 11:05-0400 Body height 157.48 cm Chrystal Harrington Work Phone: [place] [address] [address] Work Phone: 03-05-2022 11:05-0400 Body mass index (BMI) [Ratio] 28.4 kg/m2 Chrystal Harrington Work Phone: [facility] [place] [address] [address] Work Phone: 03-05-2022 11:05-0400 Body surface area Derived from formula 1.72 m2 Chrystal Harrington Work Phone: [place] [address] [address] Work Phone: 03-05-2022 11:05-0400 Body weight 70.42 kg Chrystal Harrington Work Phone: [facility] [address] Work Phone: 03-05-2022 11:05-0400 Diastolic blood pressure 78 mm[Hg] Chrystal Harrington Work Phone: [place] [address] [address] Work Phone: 03-05-2022 11:05-0400 Systolic blood pressure 118 mm[Hg] Chrystal Vallejoall Work Phone: [address] Work Phone: 02-13-2022 13:24-0400 Body height 157.48 cm Chrystal Vallejoall Work Phone: [facility] Work Phone: 02-13-2022 13:24-0400 Body mass index (BMI) [Ratio] 28.53 kg/m2 Chrystal Vallejoall Work Phone: [facility] Work Phone: 02-13-2022 13:24-0400 Body surface area Derived from formula 1.72 m2 Chrystal Vallejoall Work Phone: [facility] Work Phone: 02-13-2022 13:24-0400 Body weight 70.76 kg Chrystal Harrington Work Phone: [facility] Work Phone: 02-13-2022 13:24-0400 Diastolic blood pressure 62 mm[Hg] Chrystal Vallejoall Work Phone: [facility] Work Phone: 02-13-2022 13:24-0400 Heart rate 72 /min Chrystal Vallejoall Work Phone: [facility] Work Phone: 02-13-2022 13:24-0400 Systolic blood pressure 104 mm[Hg] Chrystal Wrightenhall Work Phone: [facility] Work Phone: 01-12-2022 13:16-0400 Body height 157.48 cm Chrystal Vallejoall Work Phone: [facility] Work Phone: 01-12-2022 13:16-0400 Body mass index (BMI) [Ratio] 30.18 kg/m2 Chrystal Harrington Work Phone: [facility] Work Phone: 01-12-2022 13:16-0400 Body surface area Derived from formula 1.76 m2 Chrystal Harrington Work Phone: [facility] Work Phone: 01-12-2022 13:16-0400 Body weight 74.84 kg Chrystal Harringotn Work Phone: [facility] Work Phone: 01-12-2022 13:16-0400 Diastolic blood pressure 64 mm[Hg] Chrystal Harrington Work Phone: [facility] Work Phone: 01-12-2022 13:16-0400 Heart rate 100 /min Chrystal Harrington Work Phone: [facility] Work Phone: 01-12-2022 13:16-0400 Systolic blood pressure 108 mm[Hg] Chrystal Harrington Work Phone: [facility] Work Phone: 12-19-2021 13:44-0500 Body height 157.48 cm Chrystal Harrington Work Phone: [place] [address] [address] Work Phone: 12-19-2021 13:44-0500 Body mass index (BMI) [Ratio] 30.52 kg/m2 Chrystal Harrington Work Phone: [place] [address] [address] Work Phone: 12-19-2021 13:44-0500 Body surface area Derived from formula 1.77 m2 Chrystal Harrington Work Phone: [place] [address] [address] Work Phone: 12-19-2021 13:44-0500 Body weight 75.7 kg Chrystal Vallejoall Work Phone: [place] [address] [address] Work Phone: 12-19-2021 13:44-0500 Diastolic blood pressure 80 mm[Hg] Chrystal Wrightenhall Work Phone: [place] [address] [address] Work Phone: 12-19-2021 13:44-0500 Systolic blood pressure 102 mm[Hg] Chrystal Vallejoall Work Phone: [place] [address] [address] Work Phone: 11-10-2021 13:51-0500 Body height 157.48 cm Chrystal Harrington Work Phone: [place] [address] [address] Work Phone: 11-10-2021 13:51-0500 Body mass index (BMI) [Ratio] 35.73 kg/m2 Chrystal Vallejoall Work Phone: [place] [address] [address] Work Phone: 11-10-2021 13:51-0500 Body surface area Derived from formula 1.89 m2 Chrystal Harrington Work Phone: [place] [address] [address] Work Phone: 11-10-2021 13:51-0500 Body temperature 98.6 [degF] Chrystal Vallejoall Work Phone: [place] [address] [address] Work Phone: 11-10-2021 13:51-0500 Body weight 88.6 kg Chrystal Vallejoall Work Phone: [place] [address] [address] Work Phone: 11-10-2021 13:51-0500 Diastolic blood pressure 80 mm[Hg] Chrystal Vallejoall Work Phone: [place] [address] [employer] Work Phone: 11-10-2021 13:51-0500 Systolic blood pressure 120 mm[Hg] Chrystal Harrington Work Phone: [place] [address] [employer] Work Phone: 11-09-2021 13:41-0500 Body temperature 98.78 [degF] Chrystal Vallejoall Other Phone: [facility] 11-09-2021 13:41-0500 Diastolic blood pressure 76 mm[Hg] Chrystal Wrightenhall Other Phone: [facility] 11-09-2021 13:41-0500 Heart rate 104 /min Chrystal Vallejoall Other Phone: [facility] 11-09-2021 13:41-0500 Respiratory rate 18 /min Chrystal Vallejoall Other Phone: [facility] 11-09-2021 13:41-0500 SaO2% (BldA) [Mass fraction] 99 % Chrystal Harrington Other Phone: [facility] 11-09-2021 13:41-0500 Systolic blood pressure 129 mm[Hg] Chrystal Vallejoall Other Phone: [facility] 10-31-2021 14:32-0500 Body height 157.48 cm Chrystal Harrington Work Phone: [place] [address] [employer] Work Phone: 10-31-2021 14:32-0500 Body mass index (BMI) [Ratio] 37.18 kg/m2 Chrystal Harrington Work Phone: [facility] [address] [employer] Work Phone: 10-31-2021 14:32-0500 Body surface area Derived from formula 1.92 m2 Chrystal Harrington Work Phone: [place] [address] [address] Work Phone: 10-31-2021 14:32-0500 Body temperature 96.8 [degF] Chrystal Harrington Work Phone: [place] [address] [address] Work Phone: 10-31-2021 14:32-0500 Body weight 92.2 kg Chrystal Vallejoall Work Phone: [place] [address] [address] Work Phone: 10-31-2021 14:32-0500 Diastolic blood pressure 72 mm[Hg] Chrystal Vallejoall Work Phone: [place] [address] [address] Work Phone: 10-31-2021 14:32-0500 Systolic blood pressure 120 mm[Hg] Chrystal Vallejoall Work Phone: [place] [address] [address] Work Phone: 10-24-2021 14:04-0500 Body height 157.48 cm Chrystal Harrington Work Phone: [address] Work Phone: 10-24-2021 14:04-0500 Body mass index (BMI) [Ratio] 36.85 kg/m2 Chrystal Harrington Work Phone: [address] Work Phone: 10-24-2021 14:04-0500 Body surface area Derived from formula 1.92 m2 Chrystal Vallejoall Work Phone: [place] [address] [address] Work Phone: 10-24-2021 14:04-0500 Body temperature 97.1 [degF] Chrystal Vallejoall Work Phone: [place] [address] [address] Work Phone: 10-24-2021 14:04-0500 Body weight 91.4 kg Chrystal Vallejoall Work Phone: [place] [address] [address] Work Phone: 10-24-2021 14:04-0500 Diastolic blood pressure 76 mm[Hg] Chrystal Harrington Work Phone: [place] [address] [address] Work Phone: 10-24-2021 14:04-0500 Systolic blood pressure 120 mm[Hg] Chrystal Vallejoall Work Phone: [place] [address] [address] Work Phone: 09-29-2021 13:00-0500 Body height 157.48 cm Chrystal Vallejoall Work Phone: [place] [address] [address] Work Phone: 09-29-2021 13:00-0500 Body mass index (BMI) [Ratio] 34.48 kg/m2 Chrystal Harrington Work Phone: [place] [address] [address] Work Phone: 09-29-2021 13:00-0500 Body surface area Derived from formula 1.86 m2 Chrystal Harrington Work Phone: [place] [address] [address] Work Phone: 09-29-2021 13:00-0500 Body temperature 96.9 [degF] Chrystal Harrington Work Phone: [place] [address] [address] Work Phone: 09-29-2021 13:00-0500 Body weight 85.5 kg Chrystal Vallejoall Work Phone: [place] [address] [address] Work Phone: 09-29-2021 13:00-0500 Diastolic blood pressure 60 mm[Hg] Chrystal Edu [place] Work Phone: [place] [address] [address] Work Phone: 09-29-2021 13:00-0500 Systolic blood pressure 120 mm[Hg] Chrystal Wrightenhall Work Phone: [place] [address] [address] Work Phone: 09-18-2021 15:35-0500 Body height 157.48 cm Chrystal Vallejoall Work Phone: [place] [address] [address] Work Phone: 09-18-2021 15:35-0500 Body mass index (BMI) [Ratio] 35.28 kg/m2 Chrystal Vallejoall Work Phone: [place] [address] [address] Work Phone: 09-18-2021 15:35-0500 Body surface area Derived from formula 1.88 m2 Chrystal Vallejoall Work Phone: [place] [address] [address] Work Phone: 09-18-2021 15:35-0500 Body temperature 96.8 [degF] Chrystal Vallejoall Work Phone: [place] [address] [address] Work Phone: 09-18-2021 15:35-0500 Body weight 87.5 kg Chrystal Vallejoall Work Phone: [place] [address] [address] Work Phone: 09-18-2021 15:35-0500 Diastolic blood pressure 70 mm[Hg] Chrystal Vallejoall Work Phone: [place] [address] [address] Work Phone: 09-18-2021 15:35-0500 Systolic blood pressure 120 mm[Hg] Chrystal Wrightenhall Work Phone: [place] [address] [address] Work Phone: 09-05-2021 08:27-0500 Body height 157.48 cm Chrystal Vallejoall Work Phone: [place] [address] [address] Work Phone: 09-05-2021 08:27-0500 Body mass index (BMI) [Ratio] 34.52 kg/m2 Chrystal Vallejoall Work Phone: [place] [address] [address] Work Phone: 09-05-2021 08:27-0500 Body surface area Derived from formula 1.86 m2 Chrystal Harrington Work Phone: [place] [address] [address] Work Phone: 09-05-2021 08:27-0500 Body temperature 95.7 [degF] Chrystal Harrington Work Phone: [place] [address] [address] Work Phone: 09-05-2021 08:27-0500 Body weight 85.6 kg Chrystal Harrington Work Phone: [place] [address] [address] Work Phone: 09-05-2021 08:27-0500 Diastolic blood pressure 62 mm[Hg] Chrystal Harrington Work Phone: [place] [address] [address] Work Phone: 09-05-2021 08:27-0500 Systolic blood pressure 100 mm[Hg] Chrystal Harrington Work Phone: [place] [address] [address] Work Phone: 08-21-2021 10:24-0500 Body height 157.48 cm Chrystal Vallejoall Work Phone: [place] [address] [address] Work Phone: 08-21-2021 10:24-0500 Body mass index (BMI) [Ratio] 33.27 kg/m2 Chrystal Vallejoall Work Phone: [place] [address] [address] Work Phone: 08-21-2021 10:24-0500 Body surface area Derived from formula 1.84 m2 hCrystal Harrington Work Phone: [place] [address] [address] Work Phone: 08-21-2021 10:24-0500 Body temperature 97.5 [degF] Chrystal Harrington Work Phone: [place] [address] [address] Work Phone: 08-21-2021 10:24-0500 Body weight 82.5 kg Chrystal Harrington Work Phone: [place] [address] [address] Work Phone: 08-21-2021 10:24-0500 Diastolic blood pressure 60 mm[Hg] Chrystal Harrington Work Phone: [place] [address] [address] Work Phone: 08-21-2021 10:24-0500 Systolic blood pressure 98 mm[Hg] Chrystal Harrington Work Phone: [place] [address] [address] Work Phone: 07-24-2021 16:04-0400 Body height 157.48 cm Chrystal Harrington Work Phone: [place] [address] [address] Work Phone: 07-24-2021 16:04-0400 Body mass index (BMI) [Ratio] 30.85 kg/m2 Chrystal Harrington Work Phone: [place] [address] [address] Work Phone: 07-24-2021 16:04-0400 Body surface area Derived from formula 1.78 m2 Chrystal Harrington Work Phone: [place] [address] [address] Work Phone: 07-24-2021 16:04-0400 Body temperature 98.2 [degF] Chrystal Harrington Work Phone: [place] [address] [address] Work Phone: 07-24-2021 16:04-0400 Body weight 76.5 kg Chrystal Harrington Work Phone: [employer] Work Phone: 07-24-2021 16:04-0400 Diastolic blood pressure 68 mm[Hg] Chrystal Harrington Work Phone: [place] [address] [address] Work Phone: 07-24-2021 16:04-0400 Systolic blood pressure 100 mm[Hg] Chrystal Harrington Work Phone: [facility] [employer] Work Phone: 07-19-2021 15:40-0400 Body height 157.48 cm Chrystal Harrington Work Phone: [facility] [employer] Work Phone: 07-19-2021 15:40-0400 Body mass index (BMI) [Ratio] 31.09 kg/m2 Chrystal Harrington Work Phone: [facility] [employer] Work Phone: 07-19-2021 15:40-0400 Body surface area Derived from formula 1.78 m2 Chrystal Harrington Work Phone: [facility] [employer] Work Phone: 07-19-2021 15:40-0400 Body temperature 98.2 [degF] Chrystal Vallejoall Work Phone: [facility] Work Phone: 07-19-2021 15:40-0400 Body weight 77.1 kg Chrystal Vallejoall Work Phone: [facility] Work Phone: 07-19-2021 15:40-0400 Diastolic blood pressure 70 mm[Hg] Chrystal Vallejoall Work Phone: [place] [address] [address] Work Phone: 07-19-2021 15:40-0400 Systolic blood pressure 120 mm[Hg] Chrystal Harrington Work Phone: [place] [address] [address] Work Phone: 06-26-2021 14:56-0400 Body height 157.48 cm Chrystal Harrington Work Phone: [place] [address] [employer] Work Phone: 06-26-2021 14:56-0400 Body mass index (BMI) [Ratio] 28.53 kg/m2 Chrystal Harrington Work Phone: [place] [address] [employer] Work Phone: 06-26-2021 14:56-0400 Body surface area Derived from formula 1.72 m2 Chrystal Harrington Work Phone: [place] [address] [address] Work Phone: 06-26-2021 14:56-0400 Body temperature 98 [degF] Chrystal Harrington Work Phone: [place] [address] [address] Work Phone: 06-26-2021 14:56-0400 Body weight 70.76 kg Chrystal Harrington Work Phone: [place] [address] [address] Work Phone: 06-26-2021 14:56-0400 Diastolic blood pressure 60 mm[Hg] Chrystal Harrington Work Phone: [place] [address] [address] Work Phone: 06-26-2021 14:56-0400 Systolic blood pressure 112 mm[Hg] Chrystal Harrington Work Phone: [place] [address] [address] Work Phone: 06-15-2021 18:43-0400 Body height 160 cm Chrystalann-marie Harrington Other Phone: [facility] 06-15-2021 18:43-0400 Body temperature 98.6 [degF] Chrystal Harrington Other Phone: [facility] 06-15-2021 18:43-0400 Diastolic blood pressure 55 mm[Hg] Chrystal Harrington Other Phone: [facility] 06-15-2021 18:43-0400 Heart rate 128 /min Chrystal Harrington Other Phone: [facility] 06-15-2021 18:43-0400 SaO2% (BldA) [Mass fraction] 98 % Chrystal Harrington Other Phone: [facility] 06-15-2021 18:43-0400 Systolic blood pressure 98 mm[Hg] Chrystal Harrington Other Phone: [facility] 05-29-2021 15:12-0400 Body height 157.48 cm Chrystal Harrington Work Phone: [place] Work Phone: 05-29-2021 15:12-0400 Body mass index (BMI) [Ratio] 27.14 kg/m2 Chrystal Harrington Work Phone: [place] Work Phone: 05-29-2021 15:12-0400 Body surface area Derived from formula 1.68 m2 Chrystal Harrington Work Phone: [employer] Work Phone: 05-29-2021 15:12-0400 Body temperature 97.7 [degF] Chrystal Harrington Work Phone: [employer] Work Phone: 05-29-2021 15:12-0400 Body weight 67.3 kg Chrystal Harrington Work Phone: [place] Work Phone: 05-29-2021 15:12-0400 Diastolic blood pressure 72 mm[Hg] Chrystal Harrington Work Phone: [place] [address] [address] Work Phone: 05-29-2021 15:12-0400 Systolic blood pressure 112 mm[Hg] Chrystal Harrington Work Phone: [place] [address] [address] Work Phone: 05-01-2021 15:12-0400 Body height 157.48 cm Chrystal Harrington Work Phone: [place] [address] [employer] Work Phone: 05-01-2021 15:12-0400 Body mass index (BMI) [Ratio] 24.4 kg/m2 Chrystal Harrington Work Phone: [place] [address] [address] Work Phone: 05-01-2021 15:12-0400 Body surface area Derived from formula 1.61 m2 Chrystal Harrington Work Phone: [place] [address] [address] Work Phone: 05-01-2021 15:12-0400 Body temperature 97.3 [degF] Chrystal Harrington Work Phone: [place] [address] [address] Work Phone: 05-01-2021 15:12-0400 Body weight 60.5 kg Chrystal Vallejoall Work Phone: [place] [address] [address] Work Phone: 05-01-2021 15:12-0400 Diastolic blood pressure 64 mm[Hg] Chrystal Sorensen Juany Work Phone: [place] [address] [address] Work Phone: 05-01-2021 15:12-0400 Systolic blood pressure 108 mm[Hg] Chrystal Harrington Work Phone: [address] Work Phone: 04-25-2021 13:30-0400 Body height 157.48 cm Chrystal Harrington Work Phone: [facility] Work Phone: 04-25-2021 13:30-0400 Body mass index (BMI) [Ratio] 24.14 kg/m2 Chrystal Harrington Work Phone: [facility] Work Phone: 04-25-2021 13:30-0400 Body surface area Derived from formula 1.6 m2 Chrystal Harrington Work Phone: [facility] Work Phone: 04-25-2021 13:30-0400 Body weight 59.87 kg Chrystal Harrington Work Phone: [facility] Work Phone: 04-25-2021 13:30-0400 Diastolic blood pressure 62 mm[Hg] Chrystal Harrington Work Phone: [facility] Work Phone: 04-25-2021 13:30-0400 Heart rate 84 /min Chrystal Harrington Work Phone: [facility] Work Phone: 04-25-2021 13:30-0400 Systolic blood pressure 124 mm[Hg] Chrystal Harrington Work Phone: [facility] Work Phone: 04-03-2021 15:08-0400 Body height 157.48 cm Chrystal Harrington Work Phone: [address] Work Phone: 04-03-2021 15:08-0400 Body mass index (BMI) [Ratio] 23.39 kg/m2 Chrystal Harrington Work Phone: [facility] [place] [address] [address] Work Phone: 04-03-2021 15:08-0400 Body surface area Derived from formula 1.58 m2 Chrystal Harrington Work Phone: [place] [address] [address] Work Phone: 04-03-2021 15:08-0400 Body temperature 97.5 [degF] Chrystal Harrington Work Phone: [place] [address] [address] Work Phone: 04-03-2021 15:08-0400 Body weight 58 kg Chrystal Harrington Work Phone: [facility] [place] [address] [address] Work Phone: 04-03-2021 15:08-0400 Diastolic blood pressure 62 mm[Hg] Chrystal Harrington Work Phone: [place] [address] [address] Work Phone: 04-03-2021 15:08-0400 Systolic blood pressure 110 mm[Hg] Chrystal Harrington Work Phone: [facility] [place] [address] [address] Work Phone: 03-20-2021 13:31-0400 Body height 157.48 cm Chrystal Harrington Work Phone: [place] [address] [address] Work Phone: 03-20-2021 13:31-0400 Body mass index (BMI) [Ratio] 22.94 kg/m2 Chrystal Vallejoall Work Phone: [facility] [place] [address] [address] Work Phone: 03-20-2021 13:31-0400 Body surface area Derived from formula 1.57 m2 Chrystal Vallejoall Work Phone: [facility] [place] [address] [address] Work Phone: 03-20-2021 13:31-0400 Body temperature 98 [degF] Chrystal Harrington Work Phone: [address] Work Phone: 03-20-2021 13:31-0400 Body weight 56.9 kg Chrystal Harrintgon Work Phone: [address] Work Phone: 03-20-2021 13:31-0400 Diastolic blood pressure 62 mm[Hg] Chrystal Harrington Work Phone: [address] Work Phone: 03-20-2021 13:31-0400 Systolic blood pressure 112 mm[Hg] Chrystal Harrington Work Phone: [address] Work Phone: 11-11-2020 10:53-0500 BMI (Body Mass Index) 22.42 kg/m2 Alexa Beyer [facility] Work Phone: 11-11-2020 10:53-0500 Body Temperature 96.6 [degF] Alexa Beyer [facility] Work Phone: 11-11-2020 10:53-0500 Body weight 55.61 kg Alexa Beyer [facility] Work Phone: 11-11-2020 10:53-0500 BP Diastolic 68 mm[Hg] Alexa Beyer [facility] Work Phone: 11-11-2020 10:53-0500 BP Systolic 106 mm[Hg] Alexa Warekins [facility] Work Phone: 11-11-2020 10:53-0500 BSA (Body Surface Area) 1.55 m2 Alexa Beyer [facility] Work Phone: 11-11-2020 10:53-0500 Height 157.48 cm Alexa Warekins [facility] Work Phone: 11-11-2020 10:53-0500 Pulse (Heart Rate) 115 /min Alexa Beyer [facility] Work Phone: 11-11-2020 10:53-0500 Pulse Oximetry 98 % Alexa Beyer [facility] Work Phone: 10-31-2020 18:57-0500 BP Diastolic 74 mm[Hg] [facility] 10-31-2020 18:57-0500 BP Systolic 125 mm[Hg] [facility] 10-31-2020 18:57-0500 Pulse (Heart Rate) 95 /min [facility] 10-31-2020 18:57-0500 Pulse Oximetry 99 % [facility] 10-31-2020 18:57-0500 Respiratory Rate 16 /min [facility] 10-31-2020 16:27-0500 Height 157.5 cm [facility] 10-31-2020 16:26-0500 Body Temperature 98.2 [degF] [facility] [employer] Encounters Encounter Date Encounter Type Care Provider Facility Start: 10-18-2023 End: 10-18-2023 ambulatory ALEXA De Jesus [facility] Start: 10-18-2023 End: 10-18-2023 Office outpatient visit 25 minutes Alexa Lancaster ABSTRACT CHECKER-SODA FOUNTAIN CLERK Work Phone: [facility] Procedures Date Procedure Procedure Detail Performing Clinician Start: 04-24-2023 Follow-up visit Follow-up CHRYSTAL HARRINGTON Start: 2023 HUMAN CHORIONIC GONADOTROPIN, SERUM QUANTITATIVE [...] 2000 panel - Serum or Plasma CHRYSTAL WRIGHTENHALL Start: 03-19-2023 Cyanocobalamin vitamin b-12 CHRYSTAL LANG WICOURTNEY Start: 03-19-2023 Ferritin [Mass/volume] in Serum or Plasma CHRYSTAL WRIGHTENHALL Start: 03-19-2023 FOLATE CHRYSTAL WRIGHTENHALL Start: 03-19-2023 Hemoglobin A1c/Hemoglobin.total in Blood CHRYSTAL HARRINGTON Start: 03-19-2023 IRON AND TIBC CHRYSTAL HARRINGTON Start: 03-19-2023 Lipid panel CHRYSTAL WRIGHTENHALL Start: 03-19-2023 Thyrotropin [Units/volume] in Serum or Plasma CHRYSTAL WRIGHTENHALL Start: 03-19-2023 THYROXINE, FREE CHRYSTAL HARRINGTON Start: 03-19-2023 TRIIODOTHYRONINE, FREE CHRYSTAL HARRINGTON Start: 03-19-2023 Lipid 1996 panel - Serum or Plasma Alexa ROA Work Phone: Start: 03-20-2022 Lipid 1995 panel - Serum or Plasma Alexa ROA Work Phone: Start: 11-08-2021 Hemoglobin F [Presence] in Blood Paulino Gomez Start: 11-08-2021 Rhogam Paulino Gomez Start: 05-01-2021 Microscopic observation [Identifier] in Cervix by Cyto stain Alexa ROA Work Phone: Start: 11-16-2020 Echocardiography Alexa Beyer Start: 11-11-2020 [...] of 2) Zoster Vaccines (1 of 2) [facility] Start: 08-22-2031 DTaP/Tdap/Td Vaccines (7 - Td or Tdap) DTaP/Tdap/Td Vaccines (7 - Td or Tdap) [facility] Start: 03-19-2028 Lipid panel Lipid Panel [facility] Start: 03-20-2027 Lipid panel Lipid Panel [facility] Start: 05-01-2024 Screening for malignant neoplasm of cervix [facility] Start: 04-27-2024 End: 04-27-2024 Patient encounter procedure 04/27/2024 2:00 PM EDT Office Visit [facility] [address] [place] [id number] Chrystal Harrington PA-C [address] [place] [address] [facility] Start: 09-01-2023 Influenza vaccination [facility] Start: 04-11-2023 End: 04-11-2023 Patient encounter procedure 04/11/2023 9:40 AM EDT Office Visit [facility] [address] [place] [address] Chrystal Harrington PA-C [address] [place] [address] [facility] Start: 03-20-2023 End: 03-20-2024 CBC W Auto Differential panel - Blood CBC and Auto Differential Lab Routine Iron deficiency anemia, unspecified iron deficiency anemia type Expected: 03/20/2023 (Approximate), Expires: 03/20/2024 [facility] Service Area Work Phone: Immunizations Immunization Date Immunization Notes Care Provider Fa cili 08-22-2021 tetanus toxoid, reduced diphtheria toxoid, and acellular pertussis vaccine, adsorbed Chrystal Harrington Work Phone: [address] Work Phone: 08-04-2020 hepatitis B vaccine, pediatric or pediatric/adolescent dosage [facility] Work Phone: Payers Date Payer Category Payer Unknown [id number] 2021 Unknown [id number] 2021 Unknown [id number] 2019 Unknown 2000 Unknown [id number] 2.16.84 [id number] 2000 Unknown [id number] 2.16 [id number] 2000 Unknown [id number] 2.16 [id number] 2000 Unknown [id number] 2.16. [id number] 2000 Unknown [id number] 2.16. [id number] 2000 Unknown [id number] 2.16. 840.1.263083.3.579.2.356 2000 Unknown [id number] 2.16. 840.1.902912.3.579.2.356 2000 Unknown [id number] 2.16. 840.1.767791.3.579.2.356 2000 Unknown [id number] 2.16.8 40.1.847824.3.579.2.1069 2000 Unknown [id number] 2.16.84 0.1.520757.3.579.2.124 2000 Unknown [id number] 2.16.84 0.1.223385.3.579.2.5 2000 Unknown [id number] 2.16.84 0.1.535235.3.579.2.1244 2000 Unknown [id number] 2.16.8 40.1.991718.3.579.2.4 2000 Unknown [id number] 2.16.84 0.1.979443.3.579.2.1243 2000 Unknown [id number] 2.16.84 0.1.054456.3.579.2.4 2000 Unknown [id number] 2.16.84 0.1.315922.3.579.2.1243 2000 Unknown [id number] 2.16.84 [id number] 2000 Unknown [id number] 2.16.84 [id number] 1959 Unknown [id number] Social History Date Type Detail Facility Start: 10-31-2020 Tobacco smoking stat [facility] Current some day smoker [facility] Start: 10-31-2020 End: 01-30-2023 Tobacco use and exposure Never used [facility] Start: 10-31-2020 End: 03-20-2023 Alcohol intake Current drinker of alcohol (finding) [facility] Start: 10-31-2020 Tobacco Comment v[facility] Start: 10-31-2020 Alcohol Comment [facility] Start: 2000 Sex Assigned At Not on file [facility] Start: 03-04-2023 End: 03-19-2023 Exposure to SARS-CoV-2 (event) Not sure [facility] Start: 02-08-2023 End: 04-24-2023 Coffee Coffee [facility] [address] [employer] Work Phone: Functional Status Date Assessment Result Facility Functional observable [facility] NEGATED: Highlighted row Functional performance Functional status health issues are not documented Disease [facility] Work Phone: Mental Status Date Assessment Result Facility 11-08-2021 Cognitive functi ons :44 [facility] NEGATED: Highlighted row Cognitive function [Interpretation] Cognitive status health issues are not documented Disease [facility] Work Phone: Clinical Notes 01-12-2021 to 10-18-2023 JANINA Lara - 10/18/2023 2:40 PM JANINA Flores - 03/20/2023 3:40 PM EDTPatient JANINA Pemberton - 03/14/2023 2:40 PM EDT<item> Note Date & Type Note Facility 10-18-2023 History of Present illness Narrative Subjective Patient ID: Johny Cuevas is a 23 y.o. female who presents for Chills and Nasal Congestion (Associated with body aches x 1 day . Pt has not tested for covid or flu at this time ). VIRTUAL APPOINTMENT BEING PERFORMED DUE TO COVID-19 (CORONAVIRUS) HPI: Presents today for C/O NASAL CONGESTION AND BODY ACHES X 1 DAY modifying factors consists of NO COVID TEST TAKEN. SHE IS associated symptoms consist of SORE THROAT, SINUS PRESSURE, AND REEVES prior treatment consists of medication NONE Visit Vitals Smoking Status Former Review of Systems Constitutional: Positive for chills and fatigue. Negative for fever and unexpected weight change. HENT: Positive for congestion, sinus pressure and sore throat. Negative for ear pain and trouble swallowing. Eyes: Negative for photophobia, [...] not nervous/anxious. Objective Physical Exam Constitutional: Appearance: She is ill-appearing. Neurological: Mental Status: She is alert. Psychiatric: Mood and Affect: Mood normal. Behavior: Behavior normal. Thought Content: Thought content normal. Judgment: Judgment normal. Assessment/Plan Problem List Items Addressed This Visit Acute non-recurrent maxillary sinusitis - Primary Relevant Medications amoxicillin (Amoxil) 500 mg capsule Nasal congestion Relevant Medications COVID-19 antigen test (COVID-19 At-Home Test) kit CALL WITH COVID-19 TESTING RESULTS. REFUSING SOONER FU APPT AT THIS TIME. . INSTRUCTED TO SELF QUARANTINE AND TO PRACTICE GOOD HAND WASHING TECHNIQUES. PT WAS INSTRUCTED TO INCREASE FLUID INTAKE AND TAKE TYLENOL 650 MG PO Q6H/PRN FOR PAIN OR FEVER. RETURN SOONER OR GO TO THE ER IF SYMPTOMS PERSIST OR WORSEN WE DISCUSSED MOST COMMON SIDE EFFECTS OF [...] Follow up as before documented in this encounter [facility] Work Phone: 03-20-2023 History of Present illness Narrative Subjective Patient ID: Johny Cuevas is a 22 y.o. female who presents for Results (NO ADDITIONAL CONCERNS ). VIRTUAL APPOINTMENT BEING PERFORMED DUE TO COVID-19 (CORONAVIRUS) HPI: Presents today for [facility] LABS. NO NEW COMPLAINTS IRON- SHE STATES [...] RM WITH LABS documented in this encounter [facility] Work Phone: 03-20-2023 Instructions JANINA Lara - 03/20/2023 3:40 PM EDT 1 month with labs with RM Cancel 04/11/23 documented in this encounter [facility] Work Phone: 03-14-2023 History of Present [...] LABS WITH RM documented in this encounter [facility] Work Phone: 10-17-2022 Chief complaint Narrative [...] visit.Pt vv 6 mnth fu with labs. [facility] Work Phone: 03-05-2022 Note Previous comment was modified by KATT at 15:06 on 03/09/2022 CULTURE IN PROGRESS. FINAL REPORT IN 72 HOURS. Culture examined for Group A Streptococcus, Group B Streptococcus, Neisseria gonorrhoeae and Yeast ONLY. NO Neisseria gonorrhoeae ISOLATED. PATIENT: JOHNY CUEVAS LOCATION: [facility] [place] BILL#: [id number] : [birth year] AGE: SEX: F ORDERED BY: TAYLER HA SOURCE: GENITAL COLLECTED: 03/05/22 11:23 ANTIBIOTICS AT SANGEETA.: RECEIVED : 03/05/22 17:59 SITE: Vaginal Corrected Report R E S U L T S GENITAL CULTURE, BACT. FINAL 03/09/22 15:06 NO PATHOGENS Culture examined for Group A Streptococcus, Group B Streptococcus, Neisseria gonorrhoeae and Yeast ONLY. NO Neisseria gonorrhoeae ISOLATED. Previous comment was modified by [email or web address] at 15:06 on 03/09/22. Culture examined for Group A Streptococcus, Group B Streptococcus, Neisseria gonorrhoeae and Yeast ONLY. NO Neisseria gonorrhoeae ISOLATED. [facility] documented in this encounter [facility] Work Phone: Evaluation note* Diagnosis Abscess- Primary Cellulitis and abscess of unspecified site Low thyroid stimulating hormone (TSH) level Iron deficiency anemia, unspecified iron deficiency anemia type documented in this encounter [facility] Work Phone: Evaluation note* Diagnosis Iron deficiency anemia, unspecified iron deficiency anemia type- Primary Ortiz's thyroiditis Chronic lymphocytic thyroiditis documented in this encounter [facility] Work Phone: Evaluation note* Diagnosis Acute non-recurrent maxillary sinusitis- Primary Nasal congestion Other diseases of nasal cavity and sinuses documented in this encounter [facility] Work Phone: History of Present illness [id number] G1 presents for follow-up viability ultrasound. Patient notes more breast tenderness nausea recently. Minimal cramps but no bleeding. Patient has no acute concerns.[address] Work Phone: History of Present illness [...] - ordered given some of her symptoms [facility] Work Phone: History of Present illness [id number] G1, P1 presents for concern for yellow discharge and a lot of pain. Patient strongly anxious with baby in her recovery. Patient is no other acute concernsWomenad[facility] medical centerC[facility] & [facility]cher [employer] Work Phone: History of Present illness [id number] presents for 6-week status post spontaneous vaginal delivery. Patient doing well. Patient struggled with constipation despite Colace twice a day. Patient drinking tons of waterfor breast-feeding. doing well. Patient not sexually active. Patient is no period. Patient like discussed control. Patient is no other acute concernsWomenadena regional medical centerDering HallSharps [employer] Work Phone: History of Present illness Narrative* [...] seasonal allergies. * She had COVID-19 09/2021. [facility] Work Phone: History of [...] is doing well. She cont to breastfeed [facility] Work Phone: History of Present illness [...] is doing well. She cont to breastfeed [facility] Work Phone: History of Present illness Narrative* Pt. presents for annual exam * up to date on pap * Still with bothersome scar tissue from perineal repair at last , did use estrogen cream for a while * d/c contraception and open to next , will start folic acid [address] Work Phone: History of Present illness Narrative* Alexa Lancaster, ABSTRACT CHECKER-SODA FOUNTAIN CLERK - 02/08/2023 9:40 AM EDT Subjective Patient [...] [facility] as [facility] Work [facility]: Hospital Discharge instructions* Activity:Return [...] symptoms worsen, call 911 or go to [facility] room. *Information obtained from JASMYNE campbell: Save Your Life: Get Care for These POST- Warning SignsOn Behalf on the [facility] Maternity Staff, Congratulations on your . It [...] us a call. Also, please join our [facility] Support Group which meets the saturday of every month at 10 am in the OB unit. No need to register. If you have any questions please call us at [phone]. Again, Congratulations! Warmest Regards,[facility]'s Maternity Staff [facility] Summary Purpose Family History No Family History [...] New Request Procedures ECG Marybel Bustos PA-C [address] [place] [address] Discharge Instructions * Instructions* Marybel Bustos PA-C - 10/31/2020 Your blood work is normal, heart testing normal, and imaging normal today. Follow up with cardiology for further evaluation of passing out and palpitations. * Attachments The following attachments cannot be sent through Care Everywhere. * Palpitations (Yakut) * Fainting (Yakut) documented in this encounter Assessments Diagnosis Syncope, [...] DATE CREATED AUTHOR AUTHOR'S ORGANIZ ATION 06/19/2019 [facility] DATE CREATED AUTHOR AUTHOR'S ORGANIZ ATION 11/10/2020 [facility] DATE CREATED AUTHOR AUTHOR'S ORGANIZ ATION 01/04/2023 [facility] DATE CREATED AUTHOR AUTHOR'S ORGANIZ ATION 2023 [facility] DATE CREATED AUTHOR AUTHOR'S ORGANIZ ATION 04/24/2023 [facility] DATE CREATED AUTHOR AUTHOR'S ORGANIZ ATION 06/02/2023 [employer] DATE CREATED AUTHOR AUTHOR'S ORGANIZ ATION 10/20/2023 [facility] Reason for Visit (unrecogniz ed section and content) Reason Comments Follow-up 1 WK F/U FOR ILLNESS . FEELS BETTER Reason Comments Follow-up PAINFUL SWOLLEN LUMP IN GROIN AREA X3-4 DAYS Reason Comments Results NO ADDITIONAL CONCER NS Reason Comments Chills Nasal Congestion Associated with body aches x 1 day . Pt has not tested for covid or flu at this time Reny Lorenzana RN - 10/31/2020 6:57 PM [...] Negative Homans sign. Robert Linares MD 10/31/20 1707 documented in this encounter <item><item> Privacy Markings (unrecogniz ed section and content) Section Author: Siena Dougherty PROHIBITION ON REDISCLOSURE [...] Care Teams (unrecognized sec tion and content) Vehicle Service Attendant Relationship Specialty Start Date End Date Chrystal Harrington PA-C [address] [place] [address] PCP - General 06/16/19 Chrystal Harrington PA-C [address] [place] [address] PCP - Douglas SALAZAR PCP 05/14/22 Vehicle Service Attendant Relationship Specialty Start Date End Date Chrystal Harrington PA-C [address] [place] [address] PCP - General 06/16/19 Chrystal Harrington PA-C [address] [place] [address] PCP - Rolanlakisha [facility] PCP 05/14/22 FOR RECORDS PERTAINING TO PATIENTS [...] BE BASED ON THE PRIMARY CLINICAL RECORDS. [facility] [employer] [facility]. provides no warranty or guarantee of the accuracy or completeness of information in this document.
[2023-10-23 07:32] LABS: Glucose GTT-Gestation. Fasting 105 mg/dL (<105)
[2023-10-23 08:55] LABS: Glucose GTT-Gestational 1 Hr 186 mg/dL (<190)
[2023-10-23 10:08] LABS: Glucose GTT-Gestational 2 Hr 133 mg/dL (<165)
[2023-10-23 11:41] LABS: Glucose GTT-Gestational 3 Hr 110 L (<145)
== END | disposition home or self-care (01) ==
PROVIDERS: Advanced Practice Midwife; PCP Physician Assistant Medical; Referring Provider Obstetrics & Gynecology; Visit Provider Obstetrics & Gynecology
DX: O99.810 Abnormal glucose complicating pregnancy (principal); Z3A.00 Weeks of gestation of pregnancy not specified
CPT/HCPCS: 36415; 82951; 82952

== ENCOUNTER 2023-11-06 12:55 | Outpatient (RCR) | payer OTHER, MEDICAID, SELFPAY | END 2023-11-13 23:59 | LOC: DC 12:55 | PROVIDERS: PCP Physician Assistant Medical; Visit Provider Advanced Practice Midwife | DX: O24.419 Gestational diabetes mellitus in pregnancy, unspecified control (principal) | CPT/HCPCS: 97802 ==

== ENCOUNTER 2023-11-27 20:20 | Outpatient (CLI) | payer OTHER, MEDICAID, SELFPAY ==
[2023-11-27] VITALS (24 sets, daily range): BP systolic 112; BP diastolic 63; PULSE 88–100; TEMP 36.8; O2SAT 97–99; BMI 33.8
--- OUTSIDE RECORDS SUMMARY | 2023-11-27 20:32 | XMS RPT_ITS | CCD ---
Author Name Unknown Address [id number] [place] [address] Organization [facility] Care Team Providers Care Glass Silverer Name Role Phone MILADIS DOHERTY Admitting UnavailMILADIS John Attending Unavailrubina PEÑA NO PCP, NO PCP Primary Care Unavailable Chrystal Harrington Unavailable Unavailable Chrystal Harrington Unavailable Unavailable Vianney Guerra Unavailable Unavailable Alexa Beyer Unavailable Unavailable Wallace Lion Unavailable Unavailable Chrystal Harrington Primary Care Provider Chrystal Harrington Unavailable [phone] Unavailable Unavailable Chrystal Harrington Unavailable Vianney [...] HYDROcodone; Translations: [Vicodin TABS] Drug Allergy S[facility] [address] Work Phone: Latex (20 sources) Latex rubber gloves; Translations: [Latex Gloves] Substance Allergy [address] Work Phone: Opioid Agonists (20 sources) HYDROmorphone; Translations: [Dilaudid] Drug Allergy [facility] [address] Work Phone: (20 sources) Acetaminophen / HYDROcodone; Translations: [Vicodin TABS] Drug Allergy 1 [facility]ync[facility], Other [facility] Work Phone: (20 sources) HYDROcodone; Translations: [hydrocodone] Drug Allergy 3 [facility]ync[facility], Other [facility] Work Phone: (20 sources) HYDROmorphone; Translations: [Dilaudid] Drug Allergy Syncope [facility] Work Phone: (7 sources) HYDROmorphone; Translations: [HYDROMORPHONE] Drug Allergy 1 Syncope, [facility] (20 sources) Latex rubber gloves; Translations: [Latex Gloves] Allergy to drug (finding) [facility] [address] Work Phone: (20 sources) natural latex rubber; Translations: [LATEX] Allergy to substance (finding) 3 [facility] (5 sources) guaiFENesin / HYDROcodone Drug Allergy 3 Other [facility] (4 sources) Latex Allergy to substance 3 [facility] Work Phone: (2 sources) Acetaminophen / HYDROcodone; Translations: [HYDROCODONE-ACET AMINOPHEN] Drug Allergy 3 [facility] (2 sources) HYDROCODONE-GUAIF ENESIN; Translations: [HYDROCODONE-GUAI FENESIN] Propensity to adverse reactions to drug (disorder) 3 [facility] Medications Current Medications Medication Drug Class(es) [...] DO Start : 29-Dec-2021 Complete bifidobacterium animalis [id number] unt / lactobacillus acidophilus [id number] unt oral capsule (20 sources) End: 10-18-2023 [...] Episodic Other aftercare (1 source) 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 therapy; Translations: [OTH [facility]DC CURRENT DRUG THERAPY] Onset: 9 Episodic Other [...] 15:04-0400 Body height 157.5 cm Alexa Lancaster APRN-CORPORATE STRATEGY INTERN Work Phone: [facility] 03-14-2023 15:04-0400 Body mass index (BMI) [Ratio] 24.14 kg/m2 Alexa Lancaster APRN-CORPORATE STRATEGY INTERN Work Phone: [facility] 03-14-2023 15:04-0400 Body weight 59.88 kg Alexa Lancaster APRN-CORPORATE STRATEGY INTERN Work Phone: [facility] 03-14-2023 15:04-0400 Diastolic blood pressure 65 mm[Hg] Alexa Lancaster APRN-CORPORATE STRATEGY INTERN Work Phone: [facility] 03-14-2023 15:04-0400 Heart rate 86 /min Alexa Lancaster APRN-CORPORATE STRATEGY INTERN Work Phone: [facility] 03-14-2023 15:04-0400 Systolic blood pressure 101 mm[Hg] Alexa Lancaster APRN-CORPORATE STRATEGY INTERN Work Phone: [facility] 12-06-2022 13:21-0500 Body height 157.48 cm Chrystal Harrington Work Phone: [address] Work Phone: 12-06-2022 13:21-0500 Body mass index (BMI) [Ratio] 23.85 kg/m2 Chrystal Harrington Work Phone: [place] [address] [address] Work Phone: 12-06-2022 13:21-0500 Body surface area Derived from formula 1.59 m2 Chrystal Harrington Work Phone: [place] [address] [address] Work Phone: 12-06-2022 13:21-0500 Body weight 59.13 kg Chrystal Harrington Work Phone: [address] Work Phone: 12-06-2022 13:21-0500 Diastolic blood pressure 70 mm[Hg] Chrystal Harrington Work Phone: [address] Work Phone: 12-06-2022 13:21-0500 Systolic blood pressure 108 mm[Hg] Chrystal Harrington Work Phone: [address] Work Phone: 09-24-2022 14:10-0500 Body height 157.48 cm Chrystal Harrington Work Phone: [facility] Work Phone: 09-24-2022 14:10-0500 Body mass index (BMI) [Ratio] 24.14 kg/m2 Chrystal Vallejoall Work Phone: [facility] Work Phone: 09-24-2022 14:10-0500 Body surface area Derived from formula 1.6 m2 Chrystal Vallejoall Work Phone: [facility] Work Phone: 09-24-2022 14:10-0500 Body weight 59.88 kg Chrystal Vallejoall Work Phone: [facility] Work Phone: 09-24-2022 14:10-0500 Diastolic blood pressure 78 mm[Hg] Chrystal Harrington Work Phone: [facility] Work Phone: 09-24-2022 14:10-0500 Heart rate 100 /min Chrystal Harrington Work Phone: [facility] Work Phone: 09-24-2022 14:10-0500 SaO2% (BldA) [Mass fraction] 97 % Chrystal Harrington Work Phone: [facility] Work Phone: 09-24-2022 14:10-0500 Systolic blood pressure 110 mm[Hg] Chrystal Harrington Work Phone: [facility] Work Phone: 03-05-2022 11:05-0400 Body height 157.48 cm Chrystal Harrington Work Phone: [place] [address] [address] Work Phone: 03-05-2022 11:05-0400 Body mass index (BMI) [Ratio] 28.4 kg/m2 Chrystal Harrington Work Phone: [place] [address] [address] Work Phone: 03-05-2022 11:05-0400 Body surface area Derived from formula 1.72 m2 Chrystal Harrington Work Phone: [place] [address] [address] Work Phone: 03-05-2022 11:05-0400 Body weight 70.42 kg Chrystal Harrington Work Phone: [facility] [address] Work Phone: 03-05-2022 11:05-0400 Diastolic blood pressure 78 mm[Hg] Chrystal Harrington Work Phone: [place] [address] [address] Work Phone: 03-05-2022 11:05-0400 Systolic blood pressure 118 mm[Hg] Chrystal Vallejoall Work Phone: [address] Work Phone: 02-13-2022 13:24-0400 Body height 157.48 cm Chrystal Vallejoall Work Phone: [facility] Work Phone: 02-13-2022 13:24-0400 Body mass index (BMI) [Ratio] 28.53 kg/m2 Chrystal Vallejoall Work Phone: [facility] Work Phone: 02-13-2022 13:24-0400 Body surface area Derived from formula 1.72 m2 Chrystal Vallejoall Work Phone: [facility] Work Phone: 02-13-2022 13:24-0400 Body weight 70.76 kg Chrystal Harrington Work Phone: [facility] Work Phone: 02-13-2022 13:24-0400 Diastolic blood pressure 62 mm[Hg] Chrystal Vallejoall Work Phone: [facility] Work Phone: 02-13-2022 13:24-0400 Heart rate 72 /min Chrystal Vallejoall Work Phone: [facility] Work Phone: 02-13-2022 13:24-0400 Systolic blood pressure 104 mm[Hg] Chrystal Wrightenhall Work Phone: [facility] Work Phone: 01-12-2022 13:16-0400 Body height 157.48 cm Chrystal Vallejoall Work Phone: [facility] Work Phone: 01-12-2022 13:16-0400 Body mass index (BMI) [Ratio] 30.18 kg/m2 Chrystal Harrington Work Phone: [facility] Work Phone: 01-12-2022 13:16-0400 Body surface area Derived from formula 1.76 m2 Chrystal Harrington Work Phone: [facility] Work Phone: 01-12-2022 13:16-0400 Body weight 74.84 kg Chrystal Harrington Work Phone: [facility] Work Phone: 01-12-2022 13:16-0400 Diastolic blood pressure 64 mm[Hg] Chrystal Harrington Work Phone: [facility] Work Phone: 01-12-2022 13:16-0400 Heart rate 100 /min Chrystal Harrington Work Phone: [facility] Work Phone: 01-12-2022 13:16-0400 Systolic blood pressure 108 mm[Hg] Chrystal Harrington Work Phone: [facility] Work Phone: 12-19-2021 13:44-0500 Body height 157.48 cm Chrystal Harrington Work Phone: [place] [address] [address] Work Phone: 12-19-2021 13:44-0500 Body mass index (BMI) [Ratio] 30.52 kg/m2 Chrystal Harrington Work Phone: [place] [address] [address] Work Phone: 12-19-2021 13:44-0500 Body surface area Derived from formula 1.77 m2 Chrystal Harrington Work Phone: [place] [address] [address] Work Phone: 12-19-2021 13:44-0500 Body weight 75.7 kg Chrystal Vallejoall Work Phone: [place] [address] [address] Work Phone: 12-19-2021 13:44-0500 Diastolic blood pressure 80 mm[Hg] Chrystal Wrightenhall Work Phone: [place] [address] [address] Work Phone: 12-19-2021 13:44-0500 Systolic blood pressure 102 mm[Hg] Chrystal Vallejoall Work Phone: [place] [address] [address] Work Phone: 11-10-2021 13:51-0500 Body height 157.48 cm Chrystal Harrington Work Phone: [place] [address] [address] Work Phone: 11-10-2021 13:51-0500 Body mass index (BMI) [Ratio] 35.73 kg/m2 Chrystal Vallejoall Work Phone: [place] [address] [address] Work Phone: 11-10-2021 13:51-0500 Body surface area Derived from formula 1.89 m2 Chrystal Harrington Work Phone: [place] [address] [address] Work Phone: 11-10-2021 13:51-0500 Body temperature 98.6 [degF] Chrystal Vallejoall Work Phone: [place] [address] [address] Work Phone: 11-10-2021 13:51-0500 Body weight 88.6 kg Chrystal Vallejoall Work Phone: [place] [address] [address] Work Phone: 11-10-2021 13:51-0500 Diastolic blood pressure 80 mm[Hg] Chrystal Vallejoall Work Phone: [place] [address] [employer] Work Phone: 11-10-2021 13:51-0500 Systolic blood pressure 120 mm[Hg] Chrystal Harrington Work Phone: [place] [address] [employer] Work Phone: 11-09-2021 13:41-0500 Body temperature 98.78 [degF] Chrystal Vallejoall Other Phone: [facility] 11-09-2021 13:41-0500 Diastolic blood pressure 76 mm[Hg] Chrystal Wrightenhall Other Phone: [facility] 11-09-2021 13:41-0500 Heart rate 104 /min Chrystal Vallejoall Other Phone: [facility] 11-09-2021 13:41-0500 Respiratory rate 18 /min Chrystal Vallejoall Other Phone: [facility] 11-09-2021 13:41-0500 SaO2% (BldA) [Mass fraction] 99 % Chrystal Harrington Other Phone: [facility] 11-09-2021 13:41-0500 Systolic blood pressure 129 mm[Hg] Chrystal Vallejoall Other Phone: [facility] 10-31-2021 14:32-0500 Body height 157.48 cm Chrystal Harrington Work Phone: [place] [address] [employer] Work Phone: 10-31-2021 14:32-0500 Body mass index (BMI) [Ratio] 37.18 kg/m2 Chrystal Harrington Work Phone: [place] [address] [employer] Work Phone: 10-31-2021 14:32-0500 Body surface area Derived from formula 1.92 m2 Chrystal Harrington Work Phone: [place] [address] [address] Work Phone: 10-31-2021 14:32-0500 Body temperature 96.8 [degF] Chrystal Harrington Work Phone: [place] [address] [address] Work Phone: 10-31-2021 14:32-0500 Body weight 92.2 kg Chrystal Vallejoall Work Phone: [place] [address] [address] Work Phone: 10-31-2021 14:32-0500 Diastolic blood pressure 72 mm[Hg] Chrystal Vallejoall Work Phone: [place] [address] [address] Work Phone: 10-31-2021 14:32-0500 Systolic blood pressure 120 mm[Hg] Chrystal Vallejoall Work Phone: [place] [address] [address] Work Phone: 10-24-2021 14:04-0500 Body height 157.48 cm Chrystal Harrington Work Phone: [address] Work Phone: 10-24-2021 14:04-0500 Body mass index (BMI) [Ratio] 36.85 kg/m2 Chrystal Harrington Work Phone: [address] Work Phone: 10-24-2021 14:04-0500 Body surface area Derived from formula 1.92 m2 Chrystal Vallejoall Work Phone: [place] [address] [address] Work Phone: 10-24-2021 14:04-0500 Body temperature 97.1 [degF] Chrystal Vallejoall Work Phone: [place] [address] [address] Work Phone: 10-24-2021 14:04-0500 Body weight 91.4 kg Chrystal Vallejoall Work Phone: [place] [address] [address] Work Phone: 10-24-2021 14:04-0500 Diastolic blood pressure 76 mm[Hg] Chrystal Harrington Work Phone: [place] [address] [address] Work Phone: 10-24-2021 14:04-0500 Systolic blood pressure 120 mm[Hg] Chrystal Vallejoall Work Phone: [place] [address] [address] Work Phone: 09-29-2021 13:00-0500 Body height 157.48 cm Chrystal Vallejoall Work Phone: [place] [address] [address] Work Phone: 09-29-2021 13:00-0500 Body mass index (BMI) [Ratio] 34.48 kg/m2 Chrystal Harrington Work Phone: [place] [address] [address] Work Phone: 09-29-2021 13:00-0500 Body surface area Derived from formula 1.86 m2 Chrystal Harrington Work Phone: [place] [address] [address] Work Phone: 09-29-2021 13:00-0500 Body temperature 96.9 [degF] Chrystal Harrington Work Phone: [place] [address] [address] Work Phone: 09-29-2021 13:00-0500 Body weight 85.5 kg Chrystal Vallejoall Work Phone: [place] [address] [address] Work Phone: 09-29-2021 13:00-0500 Diastolic blood pressure 60 mm[Hg] Chrystal Edu Juany Work Phone: [place] [address] [address] Work Phone: 09-29-2021 13:00-0500 Systolic blood pressure 120 mm[Hg] Chrystal Wrightenhall Work Phone: [place] [address] [address] Work Phone: 09-18-2021 15:35-0500 Body height 157.48 cm Chrystal Vallejoall Work Phone: [place] [address] [address] Work Phone: 09-18-2021 15:35-0500 Body mass index (BMI) [Ratio] 35.28 kg/m2 Chrystal Vallejoall Work Phone: [place] [address] [address] Work Phone: 09-18-2021 15:35-0500 Body surface area Derived from formula 1.88 m2 Chrystal Vallejoall Work Phone: [place] [address] [address] Work Phone: 09-18-2021 15:35-0500 Body temperature 96.8 [degF] Chrystal Vallejoall Work Phone: [place] [address] [address] Work Phone: 09-18-2021 15:35-0500 Body weight 87.5 kg Chrystal Vallejoall Work Phone: [place] [address] [address] Work Phone: 09-18-2021 15:35-0500 Diastolic blood pressure 70 mm[Hg] Chrystal Vallejoall Work Phone: [place] [address] [address] Work Phone: 09-18-2021 15:35-0500 Systolic blood pressure 120 mm[Hg] Chrystal Wrightenhall Work Phone: [place] [address] [address] Work Phone: 09-05-2021 08:27-0500 Body height 157.48 cm Chrystal Vallejoall Work Phone: [place] [address] [address] Work Phone: 09-05-2021 08:27-0500 Body mass index (BMI) [Ratio] 34.52 kg/m2 Chrystal Vallejoall Work Phone: [place] [address] [address] Work Phone: 09-05-2021 08:27-0500 Body surface area Derived from formula 1.86 m2 Chrystal Harrington Work Phone: [place] [address] [address] Work Phone: 09-05-2021 08:27-0500 Body temperature 95.7 [degF] Chrystal Harrington Work Phone: [place] [address] [address] Work Phone: 09-05-2021 08:27-0500 Body weight 85.6 kg Chrystal Harrington Work Phone: [place] [address] [address] Work Phone: 09-05-2021 08:27-0500 Diastolic blood pressure 62 mm[Hg] Chrystal Harrington Work Phone: [place] [address] [address] Work Phone: 09-05-2021 08:27-0500 Systolic blood pressure 100 mm[Hg] Chrystal Harrington Work Phone: [place] [address] [address] Work Phone: 08-21-2021 10:24-0500 Body height 157.48 cm Chrystal Vallejoall Work Phone: [place] [address] [address] Work Phone: 08-21-2021 10:24-0500 Body mass index (BMI) [Ratio] 33.27 kg/m2 Chrystal Vallejoall Work Phone: [place] [address] [address] Work Phone: 08-21-2021 10:24-0500 Body surface area Derived from formula 1.84 m2 Chrystal Harrington Work Phone: [place] [address] [address] Work Phone: 08-21-2021 10:24-0500 Body temperature 97.5 [degF] Chrystal Harrington Work Phone: [place] [address] [address] Work Phone: 08-21-2021 10:24-0500 Body weight 82.5 kg Chrystal Harrington Work Phone: [place] [address] [address] Work Phone: 08-21-2021 10:24-0500 Diastolic blood pressure 60 mm[Hg] Chrystal Harrington Work Phone: [place] [address] [address] Work Phone: 08-21-2021 10:24-0500 Systolic blood pressure 98 mm[Hg] Chrystal Harrington Work Phone: [place] [address] [address] Work Phone: 07-24-2021 16:04-0400 Body height 157.48 cm Chrystal Harrington Work Phone: [place] [address] [address] Work Phone: 07-24-2021 16:04-0400 Body mass index (BMI) [Ratio] 30.85 kg/m2 Chrystal Harrington Work Phone: [place] [address] [address] Work Phone: 07-24-2021 16:04-0400 Body surface area Derived from formula 1.78 m2 Chrystal Harrington Work Phone: [place] [address] [address] Work Phone: 07-24-2021 16:04-0400 Body temperature 98.2 [degF] Chrystal Harrington Work Phone: [place] [address] [address] Work Phone: 07-24-2021 16:04-0400 Body weight 76.5 kg Chrystal Harrington Work Phone: [employer] Work Phone: 07-24-2021 16:04-0400 Diastolic blood pressure 68 mm[Hg] Chrystal Harrington Work Phone: [place] [address] [address] Work Phone: 07-24-2021 16:04-0400 Systolic blood pressure 100 mm[Hg] Chrystal Harrington Work Phone: [employer] Work Phone: 07-19-2021 15:40-0400 Body height 157.48 cm Chrystal Harrington Work Phone: [facility] [employer] Work Phone: 07-19-2021 15:40-0400 Body mass index (BMI) [Ratio] 31.09 kg/m2 Chrystal Harrington Work Phone: [employer] Work Phone: 07-19-2021 15:40-0400 Body surface area Derived from formula 1.78 m2 Chrystal Harrington Work Phone: [employer] Work Phone: 07-19-2021 15:40-0400 Body temperature 98.2 [degF] Chrystal Vallejoall Work Phone: [employer] Work Phone: 07-19-2021 15:40-0400 Body weight 77.1 kg Chrystal Vallejoall Work Phone: [facility] [address] Work Phone: 07-19-2021 15:40-0400 Diastolic blood pressure 70 mm[Hg] Chrystal Vallejoall Work Phone: [place] [address] [address] Work Phone: 07-19-2021 15:40-0400 Systolic blood pressure 120 mm[Hg] Chrystal Harrington Work Phone: [place] [address] [address] Work Phone: 06-26-2021 14:56-0400 Body height 157.48 cm Chrystal Harrington Work Phone: [place] [address] [employer] Work Phone: 06-26-2021 14:56-0400 Body mass index (BMI) [Ratio] 28.53 kg/m2 Chrystal Harrington Work Phone: [place] [address] [employer] Work Phone: 06-26-2021 14:56-0400 Body surface area Derived from formula 1.72 m2 Chrystal Harrington Work Phone: [place] [address] [address] Work Phone: 06-26-2021 14:56-0400 Body temperature 98 [degF] Chrystal Harrington Work Phone: [place] [address] [address] Work Phone: 06-26-2021 14:56-0400 Body weight 70.76 kg Chrystal Harrington Work Phone: [place] [address] [address] Work Phone: 06-26-2021 14:56-0400 Diastolic blood pressure 60 mm[Hg] Chrystal Harrington Work Phone: [place] [address] [address] Work Phone: 06-26-2021 14:56-0400 Systolic blood pressure 112 mm[Hg] Chrystal Harrington Work Phone: [place] [address] [address] Work Phone: 06-15-2021 18:43-0400 Body height 160 cm Chrystalann-marie Harrington Other Phone: [facility] 06-15-2021 18:43-0400 Body temperature 98.6 [degF] Chrystal Harrington Other Phone: [facility] 06-15-2021 18:43-0400 Diastolic blood pressure 55 mm[Hg] Chrystal Harrington Other Phone: [facility] 06-15-2021 18:43-0400 Heart rate 128 /min Chrystal Harrington Other Phone: [facility] 06-15-2021 18:43-0400 SaO2% (BldA) [Mass fraction] 98 % Chrystal Harrington Other Phone: [facility] 06-15-2021 18:43-0400 Systolic blood pressure 98 mm[Hg] Chrystal Harrington Other Phone: [facility] 05-29-2021 15:12-0400 Body height 157.48 cm Chrystal Harrington Work Phone: [employer] Work Phone: 05-29-2021 15:12-0400 Body mass index (BMI) [Ratio] 27.14 kg/m2 Chrystal Harrington Work Phone: [employer] Work Phone: 05-29-2021 15:12-0400 Body surface area Derived from formula 1.68 m2 Chrystal Harrington Work Phone: [employer] Work Phone: 05-29-2021 15:12-0400 Body temperature 97.7 [degF] Chrystal Harrington Work Phone: [employer] Work Phone: 05-29-2021 15:12-0400 Body weight 67.3 kg Chrystal Harrington Work Phone: [employer] Work Phone: 05-29-2021 15:12-0400 Diastolic blood pressure 72 mm[Hg] Chrystal Harrington Work Phone: [place] [address] [address] Work Phone: 05-29-2021 15:12-0400 Systolic blood pressure 112 mm[Hg] Chrystal Harrington Work Phone: [place] [address] [employer] Work Phone: 05-01-2021 15:12-0400 Body height 157.48 cm Chrystal Harrington Work Phone: [place] [address] [employer] Work Phone: 05-01-2021 15:12-0400 Body mass index (BMI) [Ratio] 24.4 kg/m2 Chrystal Harrington Work Phone: [place] [address] [address] Work Phone: 05-01-2021 15:12-0400 Body surface area Derived from formula 1.61 m2 Chrystal Harrington Work Phone: [place] [address] [address] Work Phone: 05-01-2021 15:12-0400 Body temperature 97.3 [degF] Chrystal Harrington Work Phone: [place] [address] [address] Work Phone: 05-01-2021 15:12-0400 Body weight 60.5 kg Chrystal Vallejoall Work Phone: [place] [address] [address] Work Phone: 05-01-2021 15:12-0400 Diastolic blood pressure 64 mm[Hg] Chrystal Sorensen [place] Work Phone: [place] [address] [address] Work Phone: 05-01-2021 15:12-0400 Systolic blood pressure 108 mm[Hg] Chrystal Harrington Work Phone: [address] Work Phone: 04-25-2021 13:30-0400 Body height 157.48 cm Chrystal Harrington Work Phone: [facility] Work Phone: 04-25-2021 13:30-0400 Body mass index (BMI) [Ratio] 24.14 kg/m2 Chrystal Harrington Work Phone: [facility] Work Phone: 04-25-2021 13:30-0400 Body surface area Derived from formula 1.6 m2 Chrystal Harrington Work Phone: [facility] Work Phone: 04-25-2021 13:30-0400 Body weight 59.87 kg Chrystal Harrington Work Phone: [facility] Work Phone: 04-25-2021 13:30-0400 Diastolic blood pressure 62 mm[Hg] Chrystal Harrington Work Phone: [facility] Work Phone: 04-25-2021 13:30-0400 Heart rate 84 /min Chrystal Harrington Work Phone: [facility] Work Phone: 04-25-2021 13:30-0400 Systolic blood pressure 124 mm[Hg] Chrystal Harrington Work Phone: [facility] Work Phone: 04-03-2021 15:08-0400 Body height 157.48 cm Chrystal Harrington Work Phone: [address] Work Phone: 04-03-2021 15:08-0400 Body mass index (BMI) [Ratio] 23.39 kg/m2 Chrystal Harrington Work Phone: [place] [address] [address] Work Phone: 04-03-2021 15:08-0400 Body surface area Derived from formula 1.58 m2 Chrystal Harrington Work Phone: [place] [address] [address] Work Phone: 04-03-2021 15:08-0400 Body temperature 97.5 [degF] Chrystal Harrington Work Phone: [place] [address] [address] Work Phone: 04-03-2021 15:08-0400 Body weight 58 kg Chrystal Harrington Work Phone: [facility] [place] [address] [address] Work Phone: 04-03-2021 15:08-0400 Diastolic blood pressure 62 mm[Hg] Chrystal Harrington Work Phone: [place] [address] [address] Work Phone: 04-03-2021 15:08-0400 Systolic blood pressure 110 mm[Hg] Chrystal Harrington Work Phone: [facility] [place] [place] [address] [address] Work Phone: 03-20-2021 13:31-0400 Body height 157.48 cm Chrystal Harrington Work Phone: [place] [address] [address] Work Phone: 03-20-2021 13:31-0400 Body mass index (BMI) [Ratio] 22.94 kg/m2 Chrystal Vallejoall Work Phone: [facility] [place] [place] [address] [address] Work Phone: 03-20-2021 13:31-0400 Body surface area Derived from formula 1.57 m2 Chrystal Vallejoall Work Phone: [place] [address] [address] Work Phone: 03-20-2021 13:31-0400 Body temperature 98 [degF] Chrystal Harrington Work Phone: [address] Work Phone: 03-20-2021 13:31-0400 Body weight 56.9 kg Chrystal Harrington Work Phone: [address] Work Phone: 03-20-2021 13:31-0400 Diastolic blood pressure 62 mm[Hg] Chrystal Harrington Work Phone: [address] Work Phone: 03-20-2021 13:31-0400 Systolic blood pressure 112 mm[Hg] Chrystal Harrington Work Phone: [address] Work Phone: 11-11-2020 10:53-0500 BMI (Body Mass Index) 22.42 kg/m2 Alexa Beyer [facility] Work Phone: 11-11-2020 10:53-0500 Body Temperature 96.6 [degF] Alexa Beyer [facility] Work Phone: 11-11-2020 10:53-0500 Body weight 55.61 kg Alexa Beyer [facility] Work Phone: 11-11-2020 10:53-0500 BP Diastolic 68 mm[Hg] Alexa Beyer [facility] Work Phone: 11-11-2020 10:53-0500 BP Systolic 106 mm[Hg] Alexa Warekins [facility] Work Phone: 11-11-2020 10:53-0500 BSA (Body Surface Area) 1.55 m2 Alexa Beyer [facility] Work Phone: 11-11-2020 10:53-0500 Height 157.48 cm Alexa Warekins [facility] Work Phone: 11-11-2020 10:53-0500 Pulse (Heart Rate) 115 /min Alexa Beyer [facility] Work Phone: 11-11-2020 10:53-0500 Pulse Oximetry 98 % Alexa Beyer [facility] Work Phone: 10-31-2020 18:57-0500 BP Diastolic 74 mm[Hg] [facility] [employer] 10-31-2020 18:57-0500 BP Systolic 125 mm[Hg] [facility] [employer] 10-31-2020 18:57-0500 Pulse (Heart Rate) 95 /min [facility] [employer] [facility] 10-31-2020 18:57-0500 Pulse Oximetry 99 % [facility] [employer] 10-31-2020 18:57-0500 Respiratory Rate 16 /min [facility] [employer] 10-31-2020 16:27-0500 Height 157.5 cm [facility] [employer] 10-31-2020 16:26-0500 Body Temperature 98.2 [degF] [facility] [employer] [facility] Encounters Encounter Date Encounter Type Care Provider Facility Start: 10-18-2023 End: 10-18-2023 ambulatory ALEXA De Jesus [facility] Ambulatory Start: 10-18-2023 End: 10-18-2023 Office outpatient visit 25 minutes Alexa Lancaster DIVIDING MACHINE OPERATOR HELPER-CORPORATE STRATEGY INTERN Work Phone: [facility] Internal Medicine Procedures Date Procedure [...] Start: 03-19-2023 Cyanocobalamin vitamin b-12 [facility] Start: 03-19-2023 Ferritin [Mass/volume] in Serum or [...] of 2) Zoster Vaccines (1 of 2) [facility] Start: 08-22-2031 DTaP/Tdap/Td Vaccines (7 - Td or Tdap) DTaP/Tdap/Td Vaccines (7 - Td or Tdap) [facility] Start: 03-19-2028 Lipid panel Lipid Panel [facility] Start: 03-20-2027 Lipid panel Lipid Panel [facility] Start: 05-01-2024 Screening for malignant neoplasm of cervix [facility] Start: 04-27-2024 End: 04-27-2024 Patient encounter procedure 04/27/2024 2:00 PM EDT Office Visit [facility] [address] [place] [id number] Chrystal Harrington PA-C [address] [place] [address] [facility] Start: 09-01-2023 Influenza vaccination [facility] Start: 04-11-2023 End: 04-11-2023 Patient encounter procedure 04/11/2023 9:40 AM EDT Office Visit [facility] [address] [id number] Chrystal Harrington PA-C [address] [address] [facility] Start: 03-20-2023 End: 03-20-2024 CBC W Auto Differential panel - Blood CBC and Auto Differential Lab Routine Iron deficiency anemia, unspecified iron deficiency anemia type Expected: 03/20/2023 (Approximate), Expires: 03/20/2024 [facility] Service Area Work Phone: Immunizations Immunization Date Immunization Notes Care Provider Fa cili 08-22-2021 tetanus toxoid, reduced diphtheria toxoid, and acellular pertussis vaccine, adsorbed Chrystal Harrington Work Phone: [address] Work Phone: 08-04-2020 hepatitis B vaccine, pediatric or pediatric/adolescent dosage Alexa Beyer [facility] Work Phone: Payers Date Payer Category Payer Unknown [id number] 2021 Unknown [id number] 2021 Unknown [id number] 2019 Unknown 2000 Unknown [id number] 2.16.84 [id number] 2000 Unknown [id number] 2.16 [id number] 2000 Unknown [id number] 2.16 [id number] 2000 Unknown [id number] 2.16. [id number] 2000 Unknown [id number] 2.16. 840.1.136545.3.579.2.356 2000 Unknown [id number] 2.16. 840.1.036701.3.579.2.356 2000 Unknown [id number] 2.16. 840.1.407552.3.579.2.356 2000 Unknown [id number] 2.16. 840.1.762592.3.579.2.356 2000 Unknown [id number] 2.16.8 40.1.476414.3.579.2.1069 2000 Unknown [id number] 2.16.84 0.1.293635.3.579.2.124 2000 Unknown [id number] 2.16.84 0.1.042721.3.579.2.5 2000 Unknown [id number] 2.16.84 0.1.190877.3.579.2.1244 2000 Unknown [id number] 2.16.8 40.1.977668.3.579.2.4 2000 Unknown [id number] 2.16.84 0.1.132035.3.579.2.1243 2000 Unknown [id number] 2.16.84 0.1.993063.3.579.2.4 2000 Unknown [id number] 2.16.84 0.1.047315.3.579.2.1243 2000 Unknown [id number] 2.16.84 0.1.392222.3.579.2.1243 2000 Unknown [id number] 2.16.84 0.1.828978.3.579.2.1244 1959 Unknown [id number] Social History Date Type Detail Facility Start: 10-31-2020 Tobacco smoking stat [facility] Current some day smoker [facility] Start: 10-31-2020 End: 01-30-2023 Tobacco use and exposure Never used [facility] Start: 10-31-2020 End: 03-20-2023 Alcohol intake Current drinker of alcohol (finding) [employer] Start: 10-31-2020 Tobacco Comment [facility] Start: 10-31-2020 Alcohol Comment occasional [facility] Start: 2000 Sex Assigned At Not on file [employer] Start: 03-04-2023 End: 03-19-2023 Exposure to SARS-CoV-2 (event) Not sure [employer] Start: 02-08-2023 End: 04-24-2023 Coffee [facility] [employer] Work Phone: Functional Status Date Assessment Result Facility Functional observable [facility] NEGATED: Highlighted row Functional performance Functional status health issues are not documented Disease [facility] Medicine Work Phone: Mental Status Date Assessment Result Facility 11-08-2021 Cognitive functi ons :44 [facility] NEGATED: Highlighted row Cognitive function [Interpretation] Cognitive status health issues are not documented Disease [facility] Work Phone: Clinical Notes [...] up as before documented in this encounter [facility] Work Phone: 03-20-2023 History of Present illness Narrative Subjective Patient ID: Johny Cuevas is a 22 y.o. female who presents for Results (NO ADDITIONAL CONCERNS ). VIRTUAL APPOINTMENT BEING PERFORMED DUE TO COVID-19 (CORONAVIRUS) HPI: Presents today for [facility] LABS. NO NEW COMPLAINTS IRON- SHE [...] RM WITH LABS documented in this encounter [facility] Work Phone: 03-20-2023 Instructions JANINA Lara - 03/20/2023 3:40 PM EDT 1 month with labs with RM Cancel 04/11/23 documented in this encounter [facility] Work Phone: 03-14-2023 History of Present [...] LABS WITH RM documented in this encounter [facility] Work Phone: 10-17-2022 Chief complaint Narrative [...] visit.Pt vv 6 mnth fu with labs. [facility] Work Phone: 03-05-2022 Note Previous comment was modified by KATT at 15:06 on 03/09/2022 CULTURE IN PROGRESS. FINAL REPORT IN 72 HOURS. Culture examined for Group A Streptococcus, Group B Streptococcus, Neisseria gonorrhoeae and Yeast ONLY. NO Neisseria gonorrhoeae ISOLATED. PATIENT: JOHNY CUEVAS LOCATION: [facility] BILL#: [id number] : [birth year] AGE: SEX: F ORDERED BY: [...] and Yeast ONLY. NO Neisseria gonorrhoeae ISOLATED. [facility] documented in this encounter [facility] Work Phone: Evaluation note* Diagnosis Abscess- Primary Cellulitis and abscess of unspecified site Low thyroid stimulating hormone (TSH) level Iron deficiency anemia, unspecified iron deficiency anemia type documented in this encounter [facility] Work Phone: Evaluation note* Diagnosis Iron deficiency anemia, unspecified iron deficiency anemia type- Primary Ortiz's thyroiditis Chronic lymphocytic thyroiditis documented in this encounter [facility] Work Phone: Evaluation note* Diagnosis Acute non-recurrent maxillary sinusitis- Primary Nasal congestion Other diseases of nasal cavity and sinuses documented in this encounter [facility] Work Phone: History of Present illness [id number] G1 presents for follow-up viability ultrasound. Patient notes more breast tenderness nausea recently. Minimal cramps but no bleeding. Patient has no acute concerns.[address] Work Phone: History of Present illness [...] - ordered given some of her symptoms [facility] Work Phone: History of Present illness [id number] G1, P1 presents for concern for yellow discharge and a lot of pain. Patient strongly anxious with baby in her recovery. Patient is no other acute concernsWomenselect medical [facility] Work Phone: History of Present illness [id number] presents for 6-week status post spontaneous vaginal delivery. Patient doing well. Patient struggled with constipation despite Colace twice a day. Patient drinking tons of waterfor breast-feeding. doing well. Patient not sexually active. Patient is no period. Patient like discussed control. Patient is no other acute concernsWomenselect medical [facility] shawM[employer] Work Phone: History of Present illness Narrative* [...] seasonal allergies. * She had COVID-19 09/2021. [facility] Work Phone: History of [...] is doing well. She cont to breastfeed [facility] Work Phone: History of Present [...] is doing well. She cont to breastfeed [facility] Work Phone: History of Present illness Narrative* Pt. presents for annual exam * up to date on pap * Still with bothersome scar tissue from perineal repair at last , did use estrogen cream for a while * d/c contraception and open to next , will start folic acid [address] Work Phone: History of Present illness Narrative* Alexa Lancaster, DIVIDING MACHINE OPERATOR HELPER-CORPORATE STRATEGY INTERN - 02/08/2023 9:40 AM EDT Subjective Patient [...] Follow [facility] as [facility]: Hospital Discharge instructions* Activity:Return [...] symptoms worsen, call 911 or go to [facility] room. *Information obtained from JASMYNE campbell: Save Your Life: Get Care for These POST- Warning SignsOn Behalf on the [facility] Maternity Staff, Congratulations on your . [...] us a call. Also, please join our [facility] Support Group which meets the saturday of every month at 10 am in the OB unit. No need to register. If you have any questions please call us at [phone]. Again, Congratulations! Warmest Regards,[facility]'s Maternity Staff [facility] Summary Purpose Family History No Family History [...] New Request Procedures ECG Marybel Bustos PA-C [address] [place] [address] Discharge Instructions * Instructions* Marybel Bustos PA-C - 10/31/2020 Your blood work is normal, heart testing normal, and imaging normal today. Follow up with cardiology for further evaluation of passing out and palpitations. * Attachments The following attachments cannot be sent through Care Everywhere. * Palpitations (British) * Fainting (British) documented in this encounter Assessments Diagnosis Syncope, [...] DATE CREATED AUTHOR AUTHOR'S ORGANIZ ATION 06/19/2019 [facility] DATE CREATED AUTHOR AUTHOR'S ORGANIZ ATION 11/10/2020 [facility] DATE CREATED AUTHOR AUTHOR'S ORGANIZ ATION 01/04/2023 [facility] DATE CREATED AUTHOR AUTHOR'S ORGANIZ ATION 2023 [facility] DATE CREATED AUTHOR AUTHOR'S ORGANIZ ATION 04/24/2023 [facility] DATE CREATED AUTHOR AUTHOR'S ORGANIZ ATION 06/02/2023 [employer] DATE CREATED AUTHOR AUTHOR'S ORGANIZ ATION 10/20/2023 [facility] Reason for Visit (unrecogniz ed section [...] Care Teams (unrecognized sec tion and content) Glass Silverer Relationship Specialty Start Date End Date Chrystal Harrington PA-C [address] [place] [address] PCP - General 06/16/19 Chrystal Harrington PA-C [address] [place] [address] PCP - Douglas SALAZAR PCP 05/14/22 Glass Silverer Relationship Specialty Start Date End Date Chrystal Harrington PA-C [address] [place] [address] PCP - General 06/16/19 Chrystal Harrington PA-C [address] [place] [address] PCP - Rolanlakisha [facility] PCP 05/14/22 FOR RECORDS PERTAINING TO PATIENTS [...] BE BASED ON THE PRIMARY CLINICAL RECORDS. [facility] [employer] [facility]. provides no warranty or guarantee of the accuracy or completeness of information in this document.
[2023-11-27] MEDS: 0.9% Saline Lock 10 ML Syringe IV (20:50)
[2023-11-27 20:59] LABS: Absolute Lymphocyte Count 1.66 X10^3/uL (0.83-4.51); Absolute Neutrophil Count 6.3 X10^3/uL (2.0-7.7); Basophil# 0.04 X10^3/uL; Basophil% 0.4 % (0-1); Eosinophil# 0.23 X10^3/uL; Eosinophils% 2.6 % (0-5); Hematocrit 30.3 % (37-47); Hemoglobin 10.1 g/dL (12.0-15.0); Lymphocyte # 1.66 X10^3/ul (0.83-4.51); Lymphocyte % 18.6 % (19-41); Mean Corp Hgb Conc 33.3 g/dL (32-36); Mean Corpuscular Hgb 27.6 pg (27.0-32.0); Mean Corpuscular Volume 82.8 fL (81-99); Mean Platelet Vol. 9.9 fl (6.2-12.0); Monocyte# 0.63 X10^3/uL; Monocyte% 7.1 % (0-10); NRBC Flagged by Analyzer 0 % (0-5); Neutrophil # 6.25 X10^3/uL (2.7-7.7); Neutrophil % 70.1 % (47-70); Platelet Count 276 K/mm3 (150-450); RBC Distribution Width CV 14.6 % (11.6-14.6); RBC Distribution Width SD 43.1 fl (35.1-43.9); Red Blood Count 3.66 M/mm3 (4.2-5.4); White Blood Count 8.9 K/mm3 (4.4-11.0)
--- NOTE | 2023-11-27 21:07 | US_ITS ---
STUDY: OBSTETRICAL ULTRASOUND - BIOPHYSICAL PROFILE REASON FOR EXAM: Female, 23 years old pt hit in abd with football--- well being LMP: PRIOR ULTRASOUND: None. TECHNIQUE: Transabdominal TECHNICAL QUALITY: Adequate. FINDINGS: There is a single intrauterine fetus. The fetus is in a cephalic presentation. There is demonstrated cardiac activity with a heart rate of 153 bpm. There is a normal amniotic fluid volume. The largest amniotic fluid pocket measures 5.7 cm. The amniotic fluid index (SHARMILA) is [11.9 cm. The placenta is anterior and not low-lying There are Grade 1 placental changes. Age by LMP: 34 weeks, 6 days. STARR by LMP: January 02, 2024. BIOPHYSICAL PROFILE: Breathing Movements (FBM): 2 Gross Body Movements (GBM): 2 Tone (FT): 2 Amniotic Fluid Volume (AFV): 2 TOTAL SCORE: 8 / 8 US/Biophysical Prof W/O Non Stres IMPRESSION: Normal biophysical profile of 05/21. Electronically Signed: Reyes Jaimes MD at 22:00 EST ,
[2023-11-27 21:09] LABS: Prothrombin Time (Protime)PT. 13.4 SECONDS (11.7-14.9)
[2023-11-27 21:10] LABS: Partial Thromboplast Time 28.2 Seconds (24.1-36.2)
[2023-11-27] MEDS: LACTATED RINGERS 500 ML 999 ML IV (21:15)
[2023-11-27 21:53] LABS: Fibrinogen 545 mg/dl (203-444)
--- NOTE | 2023-11-27 23:26 | OB.TRI.HP_ITS ---
HPI - General HPI Narrative JOHNY CUEVAS, is a 23 y/o @ 34 weeks 6 days who presents to L&D after was hit in the abdomen by a football and started feeling contractions. abruption labs and continuous monitoring was ordered Maternal Data Information STARR Calculator Estimated Delivery Date Method Current WG Current Estimate 01/02/24 LMP (Certain) 35w 6d PFSH PFS Medical History Abnormal glucose affecting H/O herpes genitalis Shoulder dystocia during labor and delivery Home Medications multivit-min no.71-iron fum 28 mg-folate no.1 1 mg-dha 300 mg capsule (PNV- [place]) 1 cap PO DAILY 05/16/23 [History Last Taken Unknown] aspirin 81 mg tablet,delayed release 81 mg PO DAILY 08/08/23 [History Last Taken Unknown] ferrous sulfate 325 mg (65 mg iron) tablet (FeroSul) 325 mg PO DAILY 10/16/23 [History Last Taken Unknown] blood sugar diagnostic (Blood Glucose Test strips) #120 ea 10/25/23 [Rx Last Taken Unknown] blood-glucose meter #1 ea 10/25/23 [Rx Last Taken Unknown] lancets #200 ea 10/25/23 [Rx Last Taken Unknown] flash glucose scanning reader (FreeStyle Sanjay 2 [place]) #1 ea 10/30/23 [Rx Last Taken Unknown] flash glucose sensor (FreeStyle Sanjay 2 Sensor kit) #1 ea 10/30/23 [Rx Last Taken Unknown] valacyclovir 500 mg tablet 500 mg PO QDAY #30 tabs 12/03/23 [Rx Last Taken Unknown] Allergy/AdvReac Type Severity Reaction Status Date / Time Latex, Natural Rubber Allergy Mild Itching Verified 11/27/23 21:32 acetaminophen [From Vicodin] Allergy other Verified 11/27/23 21:32 hydrocodone [From Vicodin] Allergy other Verified 11/27/23 21:32 hydromorphone [From Dilaudid] AdvReac Intermediate passed out Verified 11/27/23 21:32 Family History Grandmother Ovarian cancer great grandmother Surgical History History of throat surgery History of tonsillectomy [place] teeth extracted Social History adopted: No household members: spouse and children number of children: 1 current occupational status: unemployed pets and animals: Yes pets and animals: dog(s) history of recent travel: No sexually active: Yes Smoking Status: Former smoker quit date: 03/15/21 pack-years: 4 alcohol intake: never substance use type: does not use well-balanced diet: daily or most days caffeine: No eating out: 1-3 times/week during the past year weight has: remained stable what type of physical activity do you participate in: walking frequency: daily duration: 30-45 minutes/day stacey/hindu: [employer] seatbelt use: always do you feel safe at home: Yes additional social history: Shawn Shell History 2 Elective abortions Hx Para 1 Spontaneous abortions Hx # Term Pregnancies Ectopic pregnancies Hx # Pregnancies Multiple births # of living children 1 Past Pregnancies Del. Date Name GA/Weeks Outcome Route Bth Weight Gen Labor Lgth Anesthesia Del Locatn Provider FOB 11/07/21 Tye 39 live - full term 8#6oz Male epidural Jazmyne Escobar Delivery Date: 11/07/21 Last Updated by: Esme Baker MD IOL- small pelvis, shoulder dystocia and clavicle fracture Visit Details Expected Delivery Route/Plan Labor Preferences- CB/BF classes: [] labor support person: [] labor intervention preferences: [] pain management options preferred: [] cut cord/dad catch: [] : [] PP control planned: [] discussed possible routes of delivery and associated risks: [] special requests: [] Plans Covid status: [] Flu vaccine: declines Tdap vaccine: declineds Rhogam: given 28 weeks LARC form signed: declined Problem list reviewed and u movement and labor precautions reviewed. updated with the most current plan of care details and appropriate orders placed. Relevant counseling for the gestational age provided. Continue routine care and follow up unless otherwise noted in visit notes/problem list details OB Flowsheet Initial Weight: Not Recorded Date -?-?-?-?-?-?-?-?-?-?-?-?- EGA Weight BP Urine Prot -?-?-?-?-?-?-?-?-?-?-?-?- Glucose FHR FuHt Pres Dilation -?-?-?-?-?-?-?-?-?-?-?-?- Effaced St Visit Note 05/27/23 -?-?-?-?-?-?-?-?-?-?-?-?- 8w 4d 136 lb 2 oz 121/73 -?-?-?-?-?-?-?-?-?-?-?-?- 175 -?-?-?-?-?-?-?-?-?-?-?-?- SM- CRL cons wit h LMP 06/26/23 -?-?-?-?-?-?-?-?-?-?-?-?- 12w 6d 143 lb 116/69 Negative -?-?-?-?-?-?-?-?-?-?-?-?- Negative 170 -?-?-?-?-?-?-?-?-?-?-?-?- JV- no cramping or spotting. no complaints. tSH, free t4, TPO ordered. declines NIPT. 07/26/23 -?-?-?-?-?-?-?-?-?-?-?-?- 17w 1d 151 lb 117/73 Negative -?-?-?-?-?-?-?-?-?-?-?-?- Negative 153 -?-?-?-?-?-?-?-?-?-?-?-?- KW- no vb/lof/cr amping. + flutters. US scheduled. Declines AFP and flu shot 09/16/23 -?-?-?-?-?-?-?-?-?-?-?-?- 24w 4d 176 lb 2 oz 118/68 Nega tive -?-?-?-?-?-?-?-?-?-?-?-?- Negative 138 -?-?-?-?-?-?-?-?-?-?-?-?- MH-No VB, LOF. G ood FM. Noting weight gain, edema in ankles, episodes of dizziness, racing heart. enc eat more frequently, stand slowly, high protein low sugar/carb foods. Pre E labs today. No edema today 10/17/23 -?-?-?-?-?-?-?-?-?-?-?-?- 29w 0d 186 lb 6 oz 121/80 Nega tive -?-?-?-?-?-?-?-?-?-?-?-?- Negative 140 30 -?-?-?-?-?-?-?-?-?-?-?-?- KW-no vb/lof/ctx . good fm. Declines Tdap. LARC and Rhogam today. IV infusion tomorrow for anemia. Fainted yesterday and went to ER KW-no vb/lof/ctx. good fm. D eclines Tdap. LARC and Rhogam today. IV infusion tomorrow for anemia. Fainted yesterday and went to ER-vasovagal episode. 28 week labs today. HGB 9.4 today 10/30/23 -?-?-?-?-?-?-?-?-?-?-?-?- 30w 6d 186 lb 6 oz 117/71 Nega tive -?-?-?-?-?-?-?-?-?-?-?-?- Negative 140 30 -?-?-?-?-?-?-?-?-?-?-?-?- JV- starting glu cose monitoring, has some elevated fastings. needs to see nutrition. will try to order continuous monitoring. had infusion reaction to iron, will go back to po iron + vit c and will try chlorophyll. rpt cbc beginning of nov. deciding cs vag del. has h/o shoulder dystocia 11/14/23 -?-?-?-?-?-?-?-?-?-?-?-?- 33w 0d 189 lb 6 oz 124/74 Nega tive -?-?-?-?-?-?-?-?-?-?-?-?- Negative 140 34 Cephalic -?-?-?-?-?-?-?-?-?-?-?-?- SM- no vb lof go od fm no regular ctx, extensive counseling rearding primary csection or vaginal delivery. SM- no vb lof good fm no reg ular ctx, extensive counseling rearding primary csection or vaginal delivery. BS controlled 11/26/23 -?-?-?-?-?-?-?-?-?-?-?-?- 34w 5d Negative -?-?-?-?-?-?-?-?-?-?-?-?- Negative 140 36 Cephalic -?-?-?-?-?-?-?-?-?-?-?-?- KW-no vb/lof/ctx . good fm. BS controlled and has growth US scheduled for next . ROS Constitutional Constitutional: Reports systems reviewed and no addt'l complaints, except as documented Gastrointestinal Gastrointestinal: Denies bloating, constipation, cramping, diarrhea, nausea or vomiting Genitourinary Genitourinary: Reports other Details: Denies vaginal odor, vaginal bleeding, or vaginal discharge ; Denies difficulty urinating or flank pain NST FHR Rate Baby A Baseline: 120 Variability:: Moderate and Marked Accelerations:: 15 x 15 Decelerations:: None NST Reactive:: Yes FHR Category:: Category I Uterine Activity:: some irritability Assessment & Plan (1) Trauma during : COMMENT: hit by football in abdomen- abruption labs normal. PLAN: Plan tylenol for discomfort. nst reactive and abruption labs negative ok to dc to home. Charges/Coding Multi Select Codes Urinary/Genital Urinary/Genital CPT Codes: 54020-07 non-stress test Interp
== END 2023-11-27 22:42 | disposition home or self-care (01) ==
LOC: WPOUT 20:26 → WP 20:26
PROVIDERS: PCP Physician Assistant Medical; Referring Provider Obstetrics & Gynecology; Visit Provider Obstetrics & Gynecology
DX: O9A.213 Injury, poisoning and certain other consequences of external causes complicating pregnancy, third trimester (principal); S39.91XA Unspecified injury of abdomen, initial encounter; W21.01XA Struck by football, initial encounter; Z3A.34 34 weeks gestation of pregnancy
CPT/HCPCS: 96360; 36415; 59025; 59050; 76819; 85025; 85384; 85610; 85730; 99221; J7120; A4216; G0378

== ENCOUNTER → 2023-12-05 | Outpatient (CLI) | payer OTHER, MEDICAID, SELFPAY ==
--- NOTE | 2023-12-05 11:53 | US_ITS ---
STUDY: SECOND AND THIRD TRIMESTER OBSTETRICAL ULTRASOUND - LIMITED REASON FOR EXAM: Female, 23 years old well being -- 36 Weeks LMP: March 28, 2023. PRIOR ULTRASOUND: Comparison is made with prior study of November 27, 2023. TECHNIQUE: Transabdominal TECHNICAL QUALITY: Adequate. FINDINGS: There is a single intrauterine fetus. The fetus is in a cephalic presentation. There is demonstrated cardiac activity with a heart rate of 136 bpm. There is a normal amniotic fluid volume. The largest amniotic fluid pocket measures 4.4 cm. The amniotic fluid index (SHARMILA) is 10.7 cm. The placenta is anterior in location and is not low lying. There are Grade 2 placental changes. The cervical length was not measured due to the head positioning. BIOMETRY: BPD: 8.7 cm: 35 weeks, 1 days HC: 32 cm: 35 weeks, 3 days AC: 32.1 cm: 36 weeks, 0 days FL: 7.1 cm: 36 weeks, 4 days Age by LMP: 36 weeks, 0 days. STARR by LMP: January 02, 2024. age by current US: 35 weeks, 3 days. STARR by current US: January 06, 2024. Estimated weight: 2857 grams, +/- 429 grams, 55 percentile. US/OB Limited With Biometrics IMPRESSION: Single live intrauterine gestation with a mean gestational age of 35 weeks and 3 days. Electronically Signed: Guille Gomez MD at 14:47 EST ,
== END | disposition home or self-care (01) ==
PROVIDERS: PCP Physician Assistant Medical; Referring Provider Obstetrics & Gynecology; Visit Provider Obstetrics & Gynecology
DX: O09.90 Supervision of high risk pregnancy, unspecified, unspecified trimester (principal); Z3A.00 Weeks of gestation of pregnancy not specified
CPT/HCPCS: 76816; 87081

== ENCOUNTER 2023-12-12 14:50 | Inpatient (IN) | payer OTHER, MEDICAID, SELFPAY ==
[2023-12-12] VITALS (64 sets, daily range): BP systolic 86–149; BP diastolic 48–78; PULSE 83–126; TEMP 36.7–36.9; O2SAT 97–99; BMI 34.0
[2023-12-12 15:41] LABS: Absolute Neutrophil Count 6.5 X10^3/uL (2.0-7.7); Basophil# 0.05 X10^3/uL; Basophil% 0.5 % (0-1); Eosinophils% 2.2 % (0-5); Hematocrit 32.4 % (37-47); Hemoglobin 10.6 g/dL (12.0-15.0); Lymphocyte % 19.4 % (19-41); Mean Corp Hgb Conc 32.7 g/dL (32-36); Mean Corpuscular Hgb 26.8 pg (27.0-32.0); Mean Platelet Vol. 9.8 fl (6.2-12.0); Monocyte# 0.58 X10^3/uL; Monocyte% 6.2 % (0-10); NRBC Flagged by Analyzer 0 % (0-5); Neutrophil % 69.9 % (47-70); Platelet Count 251 K/mm3 (150-450); RBC Distribution Width CV 14.6 % (11.6-14.6); RBC Distribution Width SD 43.8 fl (35.1-43.9); Red Blood Count 3.95 M/mm3 (4.2-5.4); White Blood Count 9.3 K/mm3 (4.4-11.0)
[2023-12-12] MEDS: Lactated Ringers 1,000 ML 50 ML IV (16:00)
[2023-12-12 16:09] LABS: Bedside Glucose 81 mg/dL (74-106)
[2023-12-12] MEDS: Oxytocin 15 Units/NS 250ml 15 UNITS/250 ML IV.SOLN 2 UNITS IV (16:10)
[2023-12-12 16:39] LABS: Syphilis Antibodies Non-reactive
[2023-12-12] MEDS: 0.9% Normal Saline Single 100 ML IV.SOLN. INTRA-UTER (17:09)
[2023-12-12 18:36] LABS: Bedside Glucose 85 mg/dL (74-106)
[2023-12-12] MEDS: LACTATED RINGERS 500 ML 999 ML IV ×2 (20:16→21:12)
[2023-12-12] MEDS: Ondansetron 4 MG/2 ML Vial IV (21:19)
[2023-12-12] MEDS: fentaNYL-bupivacaine (epidural) 100 ML BAG EPIDURAL (21:20)
[2023-12-12] MEDS: Lactated Ringers 1,000 ML 999 ML IV (22:22)
[2023-12-12] MEDS: ePHEDrine Sulfate 50 MG/ML Ampul IM (22:24)
[2023-12-12 22:56] LABS: Bedside Glucose 95 mg/dL (74-106)
[2023-12-13] VITALS (46 sets, daily range): BP systolic 79–123; BP diastolic 39–66; PULSE 91–130; RESP 16–18; TEMP 36.7–37.2; O2SAT 96–99
--- NOTE | 2023-12-13 00:14 | HP.PCM_ITS ---
History and Physical Date of Admission: 12/12/23 Vital Signs 11/14/2409:46 12/05/2412:57 :25 :27 Height 5 ft 3 in 5 ft 3 in 5 ft 3 in 5 ft 3 in Weight: 194 lb BMI 34.3 BP 112/77 Intake Visit Reasons: 37 WK OB Traffic Or System Dispatcher Required: No Is patient in pain?: No Allergies Latex, Natural Rubber Allergy (Mild, Verified 12/12/23 14:25) Itchingacetaminophen [From Vicodin] Allergy (Verified 12/12/23 14:25) otherhydrocodone [From Vicodin] Allergy (Verified 12/12/23 14:25) otherhydromorphone [From Dilaudid] Adverse Reaction (Intermediate, Verified 12/12/23 14:25) passed out Medications multivit-min no.71-iron fum 28 mg-folate no.1 1 mg-dha 300 mg capsule (PNV- [place]) 1 cap PO DAILY 05/16/23 [History Confirmed 12/12/23] aspirin 81 mg tablet,delayed release 81 mg PO DAILY 08/08/23 [History Confirmed 12/12/23] ferrous sulfate 325 mg (65 mg iron) tablet (FeroSul) 325 mg PO DAILY 10/16/23 [History Confirmed 12/12/23] blood sugar diagnostic (Blood Glucose Test strips) #120 ea 10/25/23 [Rx Confirmed 12/12/23] blood-glucose meter #1 ea 10/25/23 [Rx Confirmed 12/12/23] lancets #200 ea 10/25/23 [Rx Confirmed 12/12/23] flash glucose scanning reader (FreeStyle Sanjay 2 [place]) #1 ea 10/30/23 [Rx Confirmed 12/12/23] flash glucose sensor (FreeStyle Sanjay 2 Sensor kit) #1 ea 10/30/23 [Rx Confirmed 12/12/23] valacyclovir 500 mg tablet 500 mg PO QDAY #30 tabs 12/03/23 [Rx Confirmed 12/12/23] Last Menstrual Period: 03/28/23 Zika: Zika virus screening: Negative : No PFSH PFSH Medical History Abnormal glucose affecting H/O herpes genitalis Shoulder dystocia during labor and delivery Surgical History History of throat surgery History of tonsillectomy [place] teeth extracted Family History Grandmother Ovarian cancer great grandmother Social History adopted: No household members: spouse and children number of children: 1 current occupational status: unemployed pets and animals: Yes pets and animals: dog(s) history of recent travel: No sexually active: Yes Smoking Status: Former smoker quit date: 03/15/21 pack-years: 4 alcohol intake: never substance use type: does not use well-balanced diet: daily or most days caffeine: No eating out: 1-3 times/week during the past year weight has: remained stable what type of physical activity do you participate in: walking frequency: daily duration: 30-45 minutes/day stacey/synagogue: Hinduism seatbelt use: always do you feel safe at home: Yes additional social history: Shawn Shell History 2 Elective abortions Hx Para 1 Spontaneous abortions Hx # Term Pregnancies Ectopic pregnancies Hx # Pregnancies Multiple births # of living children 1 Past Pregnancies Del. Date Name GA/Weeks Outcome Route Bth Weight Gen Labor Lgth Anesthesia Del Locatn Provider FOB 11/07/21 Tye 39 live - full term 8#6oz Mal e epidural [facility] Dr. Jordon Escobar Delivery Date: 11/07/21 Last Updated by: Esme Baker MD IOL- small pelvis, shoulder dystocia and clavicle fracture HPI 37 WK OB Details: JOHNY CUEVAS is a 23 year old who presents for routine OB visit. OB Visit STARR Calculator Estimated Delivery Date Method Current WG Current Estimate 01/02/24 LMP (Certain) 37w 0d Expected Delivery Route/Plan Labor Preferences- CB/BF classes: [] labor support person: [] labor intervention preferences: [] pain management options preferred: [] cut cord/dad catch: [] : [] PP control planned: [] discussed possible routes of delivery and associated risks: [] special requests: [] Specific Issue/Plans Covid status: [] Flu vaccine: declines Tdap vaccine: declineds Rhogam: given 28 weeks LARC form signed: declined Problem list reviewed and u movement and labor precautions reviewed. updated with the most current plan of care details and appropriate orders placed. Relevant counseling for the gestational age provided. Continue routine care and follow up unless otherwise noted in visit notes/problem list details Initial Weight: Not Recorded Date -?-?-?-?-?-?-?-?-?-?-?-?- EGA Weight BP Urine Prot -?-?-?-?-?-?-?-?-?-?-?-?- Glucose FHR FuHt Pres Dilation -?-?-?-?-?-?-?-?-?-?-?-?- Effaced St Visit Note 05/27/23-?-?-?-?-?-?-?-?-?-?-?-?- 8w 4d 136 lb 2 oz 121/73 -?-?-?-?-?-?-?-?-?-?-?-?- 175 -?-?-?-?-?-?-?-?-?-?-?-?- SM- CRL cons with LMP 06/26/23-?-?-?-?-?-?-?-?-?-?-?-?- 12w 6d 143 lb 116/69 Negative -?-?-?-?-?-?-?-?-?-?-?-?- Negative 170 -?-?-?-?-?-?-?-?-?-?-?-?- JV- no cramping or spotting. no complaints. tSH, free t4, TPO ordered. declines NIPT. 07/26/23-?-?-?-?-?-?-?-?-?-?-?-?- 17w 1d 151 lb 117/73 Negative -?-?-?-?-?-?-?-?-?-?-?-?- Negative 153 -?-?-?-?-?-?--?-?-?-?-?-?- KW- no vb/lof/cramping. + flutters. US scheduled. Declines AFP and flu shot 09/16/23-?-?-?-?-?-?-?-?-?-?-?-?- 24w 4d 176 lb 2 oz 118/68 Negative -?-?-?-?-?-?-?-?-?-?-?-?- Negative 138 -?-?-?-?-?-?-?-?-?-?-?-?- MH-No VB, LOF. Good FM. Noting weight gain, edema in ankles, episodes of dizziness, racing heart. enc eat more frequently, stand slowly, high protein low sugar/carb foods. Pre E labs today. No edema today 10/17/23-?-?-?-?-?-?-?-?-?-?-?-?- 29w 0d 186 lb 6 oz 121/80 Negative -?-?-?-?-?-?-?-?-?-?-?-?- Negative 140 30 -?-?-?-?-?-?-?-?-?-?-?-?- KW-no vb/lof/ctx. good fm. Declines Tdap. LARC and Rhogam today. IV infusion tomorrow for anemia. Fainted yesterday and went to ER KW-no vb/lof/ctx. good fm. Declines Tdap. LARC and Rhogam today. IV infusion tomorrow for anemia. Fainted yesterday and went to ER-vasovagal episode. 28 week labs today. HGB 9.4 today 10/30/23-?-?-?-?-?-?-?-?-?-?-?-?- 30w 6d 186 lb 6 oz 117/71 Negative -?-?-?-?-?-?-?-?-?-?-?-?- Negative 140 30 -?-?-?-?-?-?-?-?-?-?-?-?- JV- starting glucose monitoring, has some elevated fastings. needs to see nutrition. will try to order continuous monitoring. had infusion reaction to iron, will go back to po iron + vit c and will try chlorophyll. rpt cbc beginning of nov. deciding cs vag del. has h/o shoulder dystocia 11/14/23-?-?-?-?-?-?-?-?-?-?-?-?- 33w 0d 189 lb 6 oz 124/74 Negative -?-?-?-?-?-?-?-?-?-?-?-?- Negative 140 34 Cephalic -?-?-?-?-?-?-?-?-?-?-?-?- SM- no vb lof good fm no regular ctx, extensive counseling rearding primary csection or vaginal delivery. SM- no vb lof good fm no regular ctx, extensive counseling rearding primary csection or vaginal delivery. BS controlled 11/26/23-?-?-?-?-?-?-?-?-?-?-?-?- 34w 5d Negative -?-?-?-?-?-?-?-?-?-?-?-?- Negative 140 36 Cephalic -?--?-?-?-?-?-?-?-?-?-?-?- KW-no vb/lof/ctx. good fm. BS controlled and has growth US scheduled for next th. 12/05/23-?-?-?-?-?-?-?-?-?-?-?-?- 36w 0d 190 lb 104/72 -?-?-?-?-?-?-?-?-?-?-?-?- 140 37 Cephalic 1-?-?-?-?-?-?-?-?-?- ?-?-?- SM- no vb lof good fm n oregular ctx 12/12/23-?-?-?-?-?-?-?-?-?-?-?-?- 37w 0d 194 lb 112/77 -?-?-?-?-?-?-?-?-?-?-?-?- 150 Cephalic 1-?-?-?-?-?-?-?-?-?-?-?-?- 20 -4 SM- bedside SHARMILA 2cm and d ecreased fm the last 4 days, recommend immediate IOL. dicsussed EFW 6lb 10 ounces, previous SD with 8lb 6 ounces. ACOG First Trimester First Trimester: Desire for , Alcohol, Tobacco Cessation, Illicit/Recreational Drug/Substance Use, Intimate Partner Violence, Barriers to care, Unstable Housing, Communication Barriers, Environmental/Work Hazards, Anti cipated Course of Care, Toxoplasmosis Precations, Use of Any medications, Sexual activity, Exercise, Dental Care, Sauna/Hot tub use, Seat Belt use, Childbirth classes/Hospital facilities, , Travel, Indications for Ultrasound and Screening for Aneuploidy Second Trimester Second Trimester: Signs and Symptoms of Labor, Selecting a care provider, Reproductive Life Planning & Contreception, Care Planning, Depression/Anxiety and Intimate Partner Violence; Discussed Tobacco Cessation Third Trimester Third Trimester: Pain Management Plans, Labor support person(s), Immediate Larc, Movement Monitoring, Signs and Symptoms of Preeclampsia and [place] Education ROS Const Reports system reviewed and no additional complaints, except as documented Card Reports system reviewed and no additional complaints, except as documented Resp Reports system reviewed and no additional complaints, except as documented GI Reports system reviewed and no additional complaints, except as documented and Reports nausea Reports system reviewed and no additional complaints, except as documented Musc Reports system reviewed and no additional complaints, except as documented Exam Const General: cooperative, healthy appearing, comfortable and anxious HENMT Head: normal to inspection Nose: external nose normal Face and sinus: normal facial exam Neck Neck: normal visual inspection, full ROM and no lymphadenopathy Thyroid: thyroid normal Chest Chest palpation & inspection: normal inspection of the chest Resp Effort & Inspection: normal respiratory effort GI Inspection: normal to inspection Palpation: soft and other (gravid uterus) Other: vertex and appropriate size for gestational age Other: Cervical Exam: Extrem General: pedal edema Coding Level of Care Code OB Routine Diagnoses Gestational diabetes mellitus (GDM) affecting , antepartum O24.419 Anemia in preg-unspec O99.019 History of proteinuria syndrome Z87.448 H/O herpes genitalis Z86.19 History of shoulder dystocia with result of fractured clavicle of in jose enrique or , currently in second trimester O09.292 Trimester: second trimester Rh negative status during in second trimester O26.892; Z67.91 Trimester: second trimester 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 (3) History of proteinuria syndrome: Status: Acute Comment: 1st . States not dx pre E but had elevated BP in labor/no meds and proteinuria. baseline labs normal (4) H/O herpes genitalis: Status: Acute Comment: plan valtrex around delivery (5) History of difficult shoulder delivery, resulting in fractured clavicle of infant, currently : Status: Acute Qualifiers: Trimester: second trimester Qualified Code(s): O09.292 - Supervision of with other poor reproductive or obstetric history, second trimester Comment: discussed primary LTCS next delivery vs , patient prefers if able. EFW almost 2 lbs less than previous, plan trial of labor. had 90lb weight gain, preeclampsia, discussed healthy weight gain and recommend growth US in third trimester, nl 36 wk growth US and consider IOL 39 weeks. (6) Rh negative status during : Status: Acute Qualifiers: Trimester: second trimester Qualified Code(s): O26.892 - Other specified related conditions, second trimester; Z67.91 - Unspecified blood type, Rh negative Comment: rhogam @ 28 wks & Prn bleeding (7) Ortiz's disease: Status: Chronic (8) Asthma: Status: Acute Comment: allergy induced (9) Supervision of high-risk : Status: Acute Qualifiers: Trimester: second trimester Qualified Code(s): O09.92 - Supervision of high risk , unspecified, second trimester Comment: [id number], STARR 01/02/24 DORA Gamble, Shawn (10) : Status: Acute Qualifiers: Weeks of gestation: 37 weeks Qualified Code(s): Z3A.37 - 37 weeks gestation of Comment: GBS Negative, declined genetic & carrier testing, 36 wk nl growth (11) Oligohydramnios in third trimester: Status: Acute Comment: proceed with IOL Orders: Orders POC Urinalysis 2 Dip (Clinic) Today Plan Patient presents IOL, plan management for with fb pit. Pain management: plans epidural. GBS neg. Management of any complications: monitor BS, discussed risks of SD recurrence, mitigating strategies to reduce likeliihood., patient wishes to proceed with trial of labor I have [facility] the [facility] and made any clinically relevant updates.
--- NOTE | 2023-12-13 00:14 | PCM.PN.BLA ---
Progress Note arom clear fluid, indwelling rincon placed. cat I tracing, iupc placed. pit per protocol. /-2 clear fluid. exp management
[2023-12-13 00:45] LABS: Bedside Glucose 110 mg/dL (74-106)
--- NOTE | 2023-12-13 01:47 | OP.PCM_ITS ---
Assessment & Plan (1) Oligohydramnios in third trimester: COMMENT: proceed with IOL (2) Gestational diabetes mellitus (GDM) affecting , antepartum: COMMENT: test 4x daily and bring log to next appt (3) Anemia in preg-unspec: COMMENT: got iron infusion and had infusion reaction of fever, (102) chills, and muscle aches. (4) History of proteinuria syndrome: COMMENT: 1st . States not dx pre E but had elevated BP in labor/no meds and proteinuria. baseline labs normal (5) History of difficult shoulder delivery, resulting in fractured clavicle of infant, currently : QUALIFIERS: Trimester: second trimester Qualified Code(s): O09.292 - Supervision of with other poor reproductive or obstetric history, second trimester COMMENT: discussed primary LTCS next delivery vs , patient prefers if able. EFW almost 2 lbs less than previous, plan trial of labor. had 90lb weight gain, preeclampsia, discussed healthy weight gain and recommend growth US in third trimester, nl 36 wk growth US and consider IOL 39 weeks. (6) Rh negative status during : QUALIFIERS: Trimester: second trimester Qualified Code(s): O26.892 - Other specified related conditions, second trimester; Z67.91 - Unspecified blood type, Rh negative COMMENT: rhogam @ 28 wks & Prn bleeding (7) Ortiz's disease: (8) Asthma: COMMENT: allergy induced (9) Supervision of high-risk : QUALIFIERS: Trimester: second trimester Qualified Code(s): O09.92 - Supervision of high risk , unspecified, second trimester COMMENT: [id number], STARR 01/02/24 DORA Gamble, Shawn (10) : QUALIFIERS: Weeks of gestation: 37 weeks Qualified Code(s): Z3A.37 - 37 weeks gestation of COMMENT: GBS Negative, declined genetic & carrier testing, 36 wk nl growth (11) H/O herpes genitalis: COMMENT: plan valtrex around delivery (12) Vaginal delivery: COMMENT: iol oligo gdma1 sm girl Kate Maternal Data Information STARR Calculator Estimated Delivery Date Method Current WG Current Estimate 01/02/24 LMP (Certain) 37w 1d Vaginal Delivery Operative Information Date of Procedure: 12/13/23 Pre-Operative Diagnosis: see a/p diagnoses Post-Operative Diagnosis: same Surgery / Procedure Performed: Spontaneous Vaginal Delivery Type of Anesthesia: Epidural Special Medications: none Estimated Blood Loss: 200 Fluids Replaced: crystalloid Findings Description of Procedure: Patient began pushing and delivered the head in the NEERU presentation. The head was delivered atraumatically and a loose nuchal cord ?1 was identified and the infant delivered through without complication. The anterior and posterior shoulders delivered without complication followed by the rest of the infant and the infant was placed on the maternal abdomen. Delayed cord clamping was employed for approximately 60 seconds. Cord was clamped and cut and gentle traction was applied to the cord and the placenta delivered spontaneously immediately following it was noted to be intact with three-vessel cord. The perineum and vagina were inspected and noted to have a first degree perineal laceration which was repaired in the usual fashion with 3-0 vicryl rapide. . EBL was 200 cc. Patient and tolerated delivery well. Amniotic Fluid Description: Clear Placental Delivery Description: Spontaneous Placenta Disposition: [facility] Cord Vessel Description: 3 Vessels Cord Entanglement: Around neck x 1, loose Delayed Cord Clamping: Yes Post Vaginal Delivery Medications Given After Delivery: IV Pitocin Episiotomy Description: None Complication Complications: None Procedures Urinary/Genital [id number]: [id number] Vaginal Delivery [facility]
--- NOTE | 2023-12-13 01:53 | PCM.DC ---
Discharge Instructions Diet Discharge Diet: No restrictions Activity Discharge Activity: Return to Normal Activity, May Not Drive (while taking narcotic pain medications.) and May Shower May resume sexual activity in: 4-6 weeks Dressing / Incision Call your doctor if your incision/area has: Continuous Slow Oozing, Sudden Increased Bleeding, Increased Pain/ Swelling, Increased Redness and Foul Smelling Discharge Follow Up Care Please Follow Up With: Esme Baker MD When: Call [phone] to make an appointment with your doctor in 6 weeks. If you had elevated blood pressure or 4th degree laceration, you will need to be seen in 2 weeks. Test Results: Test results from this visit will be discussed in further detail at your follow-up appointment, if applicable. Discharge Plan Admission Admit Date/Time: 12/12/23 14:50 Attending Provider: Esme Baker Primary Care Provider: Nicole Harrington Discharge Orders/Prescriptions Prescriptions: No Action PNV-[place] 28-1-300 mg capsule 1 cap PO DAILY aspirin 81 mg tablet,delayed release (DR/EC) 81 mg PO DAILY (DME) FreeStyle Sanjay 2 [place] Misc See Rx Instructions .Route Qty: 1 0RF Rx Instructions: As directed ferrous sulfate [FeroSul] 325 mg (65 mg iron) tablet 325 mg PO DAILY (DME) Blood Glucose Test Strip See Rx Instructions .MEDSUPPLY Qty: 120 5RF Rx Instructions: As directed-fasting & 2 hr post meals (DME) blood-glucose meter Misc See Rx Instructions .MEDSUPPLY Qty: 1 0RF Rx Instructions: As directed- Test fasting and 2 hours after meals (DME) lancets Misc See Rx Instructions .MEDSUPPLY Qty: 200 5RF Rx Instructions: As directed-fasting & 2 hr post meals (DME) FreeStyle Sanjay 2 Sensor Kit See Rx Instructions .Route Qty: 1 0RF Rx Instructions: As directed valacyclovir 500 mg tablet 500 mg PO QDAY Qty: 30 6RF Referrals / Follow Up: Nicole Harrington PA [Primary Care Provider] - Disposition Disposition (needs filled in before D/C Order can be placed): Home, Self Care
[2023-12-13] MEDS: Oxytocin 15 Units/NS 250ml 15 UNITS/250 ML IV.SOLN 83 UNITS IV (02:10)
[2023-12-13 02:20] LABS: Bedside Glucose 124 mg/dL (74-106)
[2023-12-13] MEDS: Benzocaine/Lanolin/Aloe Vera 1 SPRAY EACH TOPICAL (06:17)
[2023-12-13] MEDS: Rho(D) Immune Globulin 300 MCG (1500 Unit) Syringe IV (17:44)
[2023-12-14 01:03] VITALS: BP 107/61; PULSE 88; PULSE 97; RESP 16; TEMP 36.9; O2SAT 98
--- NOTE | 2023-12-14 02:00 | NURSING ---
report given to Bronson Joy RN who is assuming care of pt
[2023-12-14 05:47] LABS: Bedside Glucose 94 mg/dL (74-106)
--- NOTE | 2023-12-14 08:17 | PN.OBGYN_ITS ---
Subjective Subjective Patient doing well without complaints. Tolerating PO. Ambulating and voiding without difficulty. Feeding well, having some difficulties, using soothie pads. Denies chest pain, shortness of breath, calf pain/swelling, fevers, chills, lightheadedness. Objective Data Objective Data Vital Signs: Vital Signs Temp Pulse Resp BP Pulse Ox O2 Del Method 98.5 F 88 16 107/61 98 Room Air 12/14/23 01:03 12/14/23 01:03 12/14/23 01:03 12/14/23 01:03 12/14/23 01:03 12/14/23 01:03 Oxygen Delivery Method Room Air Weight: 192 lb Body Mass Index (BMI) 34.0 Intake & Output: Intake and Output for Last 24 Hours 12/12/23 12/13/23 12/14/23 23:59 23:59 23:59 Intake Total 1263.83 / 1263.83 2236.17 / 2236.17 Output Total 900 / 900 1300 / 1300 Balance 363.83 / 363.83 936.17 / 936.17 Lab / Micro Data 12/12/23 15:20 Labs: Laboratory Results - last 24 hr 12/13/23 03:22: Screen NEGATIVE, Baby's Blood Type O POSITIVE, Baby's LILY NEGATIVE 12/14/23 05:27: POC Glucose 94 Physical Exam Const alert and no apparent distress Lymph Lymphatic: no lymphadenopathy noted Chest Nipple/Areola: nipples/areola normal Resp normal respiratory effort and normal air movement Cardio regular rate and regular rhythm GI normal to inspection, nondistended, normoactive bowel sounds Uterus Palpation: uterus fundus firm Extremity normal to inspection, full ROM, no calf tenderness and no pedal edema Skin no rashes or lesions noted Psych mental status grossly normal Assessment & Plan (1) Vaginal delivery: COMMENT: iol oligo gdma1 sm girl Kate PLAN: s/p PPD # 1 1. routine post delivery care 2. breast feeding- support given, residential sales consultant to see today 3. rh positive 4. rubella immune 5. d/c home today
[2023-12-14 09:03] VITALS: BP 118/63; PULSE 90; RESP 16; TEMP 36.7
== END 2023-12-14 10:14 | disposition home or self-care (01) | DRG 806 ==
PROVIDERS: Admitting Provider Obstetrics & Gynecology; PCP Physician Assistant Medical; Visit Provider Obstetrics & Gynecology
DX: O41.03X0 Oligohydramnios, third trimester, not applicable or unspecified (principal); Z37.0 Single live birth; O98.32 Other infections with a predominantly sexual mode of transmission complicating childbirth; O24.429 Gestational diabetes mellitus in childbirth, unspecified control; O69.81X0 Labor and delivery complicated by cord around neck, without compression, not applicable or unspecified; A60.00 Herpesviral infection of urogenital system, unspecified; O70.0 First degree perineal laceration during delivery; O99.02 Anemia complicating childbirth; Z87.891 Personal history of nicotine dependence; Z79.82 Long term (current) use of aspirin; Z3A.37 37 weeks gestation of pregnancy
CPT/HCPCS: 59025; 59050; 82962; 85025; 85461; 86780; 86850; 86900; 86901; 90384; 99221; J7120; G0378; J2405; J2790; J2791

== ENCOUNTER 2023-12-18 17:25 | Outpatient (CLI) | payer OTHER, MEDICAID, SELFPAY ==
[2023-11-27 20:36] VITALS: RESP 16
[2023-12-12] VITALS (13 sets, daily range): RESP 18
[2023-12-13] VITALS (11 sets, daily range): RESP 18
[2023-12-18 17:53] VITALS: BP 114/70; PULSE 78; RESP 18; TEMP 36.9
[2023-12-18 17:54] VITALS: PULSE 67; O2SAT 99
[2023-12-18 18:01] VITALS: BMI 31.7
[2023-12-18 18:08] VITALS: BP 113/61; PULSE 79
[2023-12-18 18:15] LABS: Hematocrit 32.3 % (37-47); Hemoglobin 10.4 g/dL (12.0-15.0); Mean Corp Hgb Conc 32.2 g/dL (32-36); Mean Corpuscular Hgb 26.4 pg (27.0-32.0); Mean Platelet Vol. 8.5 fl (6.2-12.0); Platelet Count 321 K/mm3 (150-450); RBC Distribution Width CV 14.5 % (11.6-14.6); Red Blood Count 3.94 M/mm3 (4.2-5.4)
[2023-12-18 18:23] VITALS: BP 125/69; PULSE 78
[2023-12-18 18:30] LABS: AST(SGOT) 18 U/L (15-37); Alanine Aminotransfer ALT/SGPT 21 U/L (13-56); Creatinine, Serum 0.68 mg/dL (0.55-1.02); EST Glomerular Filtration Rate 113 mL/min (>60); Est Glom Filt Rate - Afr Amer 137 mL/min (>60); Estimated Creatinine Clearance 129.92 ml/min; Uric Acid 5.5 mg/dL (2.6-6.0)
[2023-12-18 18:38] VITALS: BP 120/70; PULSE 71
--- NOTE | 2023-12-18 18:40 | NURSING ---
Dr Santos on unit and has reviewed pt labs and visited pt.
[2023-12-18] MEDS: SUMAtriptan 6 MG/0.5 ML Vial SC (18:46)
[2023-12-18] MEDS: Ibuprofen 400 MG Tablet 800 MG PO (18:46)
--- NOTE | 2023-12-18 18:52 | OB.TRI.NOTE ---
HPI - General HPI Narrative JOHNY CUEVAS, is a 23 F who presents with headache. She took her own manual bp at home and thought it was 145/90. She denies visual changes or epigastric pain. She has some incontinence and lower pelvic pain. Her baby is 5 days old. She denies heavy vaginal bleeding or clotting. She admits to a h/o migraine headaches treated with sumatriptan. She does not feel better when she lays back but did receive an epidural in labor Maternal Data Information STARR Calculator Estimated Delivery Date Method Current WG Current Estimate 01/02/24 LMP (Certain) 37w 6d [facility] Medical History (Updated 12/18/23 @ 18:[address] Brandi Freeman, DO) Abnormal glucose affecting H/O herpes genitalis Oligohydramnios Shoulder dystocia during labor and delivery Home Medications multivit-min no.71-iron fum 28 mg-folate no.1 1 mg-dha 300 mg capsule (PNV-[place]) 1 cap PO DAILY 05/16/23 [History Last Taken 12/18/23 08:00 1 cap] blood sugar diagnostic (Blood Glucose Test strips) #120 ea 10/25/23 [Rx Last Taken Unknown] blood-glucose meter #1 ea 10/25/23 [Rx Last Taken Unknown] lancets #200 ea 10/25/23 [Rx Last Taken Unknown] flash glucose scanning reader (FreeStyle Sanjay 2 Hurst) #1 ea 10/30/23 [Rx Last Taken Unknown] flash glucose sensor (FreeStyle Sanjay 2 Sensor kit) #1 ea 10/30/23 [Rx Last Taken Unknown] Allergy/AdvReac Type Severity Reaction Status Date / Time Latex, Natural Rubber Allergy Mild Itching Verified 12/18/23 18:03 acetaminophen [From Vicodin] Allergy other Verified 12/18/23 18:03 hydrocodone [From Vicodin] Allergy other Verified 12/18/23 18:03 hydromorphone [From Dilaudid] AdvReac Intermediate passed out Verified 12/18/23 18:03 Family History Grandmother Ovarian cancer great grandmother Surgical History History of throat surgery History of tonsillectomy [place] teeth extracted Social History adopted: No household members: spouse and children number of children: 1 current occupational status: unemployed pets and animals: Yes pets and animals: dog(s) history of recent travel: No sexually active: Yes Smoking Status: Former smoker quit date: 03/15/21 pack-years: 4 alcohol intake: never substance use type: does not use well-balanced diet: daily or most days caffeine: No eating out: 1-3 times/week during the past year weight has: remained stable what type of physical activity do you participate in: walking frequency: daily duration: 30-45 minutes/day stacey/orthodox: Worship seatbelt use: always do you feel safe at home: Yes additional social history: Shawn Shell History 2 Elective abortions Hx Para 1 Spontaneous abortions Hx # Term Pregnancies Ectopic pregnancies Hx # Pregnancies Multiple births # of living children 1 Past Pregnancies Del. Date Name GA/Weeks Outcome Route Bth Weight Infant Gen [facility] FOB 11/07/21 Tye 39 live - full term 8#6oz Male epidural [facility] Dr. Jordon Snyder Eddiesaadia Delivery Date: 11/07/21 Last Updated by: Esme Baker MD IOL- small pelvis, shoulder dystocia and clavicle fracture Visit Details Expected Delivery Route/Plan Labor Preferences- CB/BF classes: [] labor support person: [] labor intervention preferences: [] pain management options preferred: [] cut cord/dad catch: [] : [] PP control planned: [] discussed possible routes of delivery and associated risks: [] special requests: [] Plans Covid status: [] Flu vaccine: declines Tdap vaccine: declineds Rhogam: given 28 weeks LARC form signed: declined Problem list reviewed and u movement and labor precautions reviewed. updated with the most current plan of care details and appropriate orders placed. Relevant counseling for the gestational age provided. Continue routine care and follow up unless otherwise noted in visit notes/problem list details OB Flowsheet Initial Weight: Not Recorded Date <del>?</del> EGA Weight BP Urine Prot <del>?</del> Glucose FHR FuHt Pres Dilation <del>?</del> Effaced St Visit Note 05/27/23 <del>?</del> 8w 4d 136 lb 2 oz 121/73 <del>?</del> 175 <del>?</del> SM- CRL cons with LMP 06/26/23 <del>?</del> 12w 6d 143 lb 116/69 Negative <del>?</del> Negative 170 <del>?</del> JV- no cramping or spotting. no complaints. tSH, free t4, TPO ordered. declines NIPT. 07/26/23 <del>?</del> 17w 1d 151 lb 117/73 Negative <del>?</del> Negative 153 <del>?</del> KW- no vb/lof/cramping. + flutters. US scheduled. Declines AFP and flu shot 09/16/23 <del>?</del> 24w 4d 176 lb 2 oz 118/68 Negative <del>?</del> Negative 138 <del>?</del> MH-No VB, LOF. Good FM. Noting weight gain, edema in ankles, episodes of dizziness, racing heart. enc eat more frequently, stand slowly, high protein low sugar/carb foods. Pre E labs today. No edema today 10/17/23 <del>?</del> 29w 0d 186 lb 6 oz 121/80 Negative <del>?</del> Negative 140 30 <del>?</del> KW-no vb/lof/ctx. good fm. Declines Tdap. LARC and Rhogam today. IV infusion tomorrow for anemia. Fainted yesterday and went to ER KW-no vb/lof/ctx. good fm. Declines Tdap. LARC and Rhogam today. IV infusion tomorrow for anemia. Fainted yesterday and went to ER-vasovagal episode. 28 week labs today. HGB 9.4 today 10/30/23 <del>?</del> 30w 6d 186 lb 6 oz 117/71 Negative <del>?</del> Negative 140 30 <del>?</del> JV- starting glucose monitoring, has some elevated fastings. needs to see nutrition. will try to order continuous monitoring. had infusion reaction to iron, will go back to po iron + vit c and will try chlorophyll. rpt cbc beginning of nov. deciding cs vag del. has h/o shoulder dystocia 11/14/23 <del>?</del> 33w 0d 189 lb 6 oz 124/74 Negative <del>?</del> Negative 140 34 Cephalic <del>?</del> SM- no vb lof good fm no regular ctx, extensive counseling rearding primary csection or vaginal delivery. SM- no vb lof good fm no regular ctx, extensive counseling rearding primary csection or vaginal delivery. BS controlled 11/26/23 <del>?</del> 34w 5d Negative <del>?</del> Negative 140 36 Cephalic <del>?</del> KW-no vb/lof/ctx. good fm. BS controlled and has growth US scheduled for next th. 12/05/23 <del>?</del> 36w 0d 190 lb 104/72 <del>?</del> 140 37 Cephalic 1 <del>?</del> SM- no vb lof good fm n oregular ctx 12/12/23 <del>?</del> 37w 0d 194 lb 112/77 <del>?</del> 150 Cephalic 1 <del>?</del> 20 -4 SM- bedside SHARMILA 2cm and decreased fm the last 4 days, recommend immediate IOL. dicsussed EFW 6lb 10 ounces, previous SD with 8lb 6 ounces. ROS Constitutional Constitutional: Denies chills, fatigue, fever(s), poor appetite or weakness Eyes Eyes: Denies blurry vision, change in vision, seeing flashes or spots in vision ENT HEENT: Denies dizziness, loss taste/smell or sore throat Cardiovascular Cardiovascular: Denies chest pain, dizziness, dyspnea, irregular heart rhythm, palpitations or rapid heart rate Respiratory/Chest Respiratory/Chest: Denies chest tightness, cough, dyspnea or breast pain Gastrointestinal Gastrointestinal: Denies abdominal pain, constipation or vomiting Genitourinary Genitourinary: Denies dysuria or flank pain Musculoskeletal Musculoskeletal: Denies difficulty walking, joint pain, limited range of motion or numbness Neurologic Neurologic: Denies abnormal movements, abnormal speech, dizziness, numbness, seizure-like activity or syncope Psychiatric Psychiatric: Denies anxiety, behavioral changes, change in appetite, confusion, depression or suicidal thoughts Physical Exam Const alert, oriented x3 and no apparent distress General Appearance: cooperative and comfortable Resp normal respiratory effort Cardio regular rate GI normal to inspection, nondistended, normoactive bowel sounds GI Narrative: uterus is firm below umbilicus Palpation: soft Extremity normal to inspection, no clubbing, cyanosis or edema, no calf tenderness and no pedal edema Psych mental status grossly normal, thought process normal, cooperative, affect normal, speech normal, activity/motor behavior normal, denies homicidal ideation and denies suicidal ideation Assessment & Plan (1) Migraine headache: PLAN: sumatriptan 6 mg SC x 1 now + motrin 800 mg. recommend hydration PO or IV if unable to tolerate PO she does not show signs or symptoms of pre-eclampsia. (bp is low/normal) ok to dc to home if feeling better after this treatment. Charges/Coding Multi Select Codes Visit Charges Office Visit/Consults: 35180 OV L3 Est 20min
--- OUTSIDE RECORDS SUMMARY | 2023-12-18 21:11 | XMS RPT_ITS | CCD ---
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 Name Role Phone MILADIS DOHERTY Admitting UnavailMILADIS John Attending Unavailrubina PEÑA NO PCP, NO PCP Primary Care Unavailable Chrystal Harrington Unavailable Unavailable Chrystal Harrington Unavailable Unavailable Vianney Guerra Unavailable Unavailable Alexa Beyer Unavailable Unavailable Wallace Lion Unavailable Unavailable Chrystal Harrington Primary Care Provider [phone] Chrystal Harrington Unavailable [phone] Unavailable Unavailable Chrystal Harrington Unavailable Vainney Guerra Unavailable Ferny Rooney Unavailable Unavailable Paulino Gomez Unavailable ZOIE HARRINGTON Attending ZOIE Chambers Referring ZOIE Chambers Primary Care Ms. Kayleigh Patel Attending Unavail mirian Chawla, Ms. Kayleigh Peters Referring Unavail able ZOIE HARRINGTON Primary Care ZOIE Chambers Referring ZOIE Chmabers Primary Care ZOIE Chambers Attending Dr. Tayler [...] HYDROcodone; Translations: [Vicodin TABS] Drug Allergy S[facility] [address] Work Phone: Latex (20 sources) Latex rubber gloves; Translations: [Latex Gloves] Substance Allergy [address] Work Phone: Opioid Agonists (20 sources) HYDROmorphone; Translations: [Dilaudid] Drug Allergy [facility] [address] Work Phone: (20 sources) Acetaminophen / HYDROcodone; Translations: [Vicodin TABS] Drug Allergy 1 [facility]ync[facility], Other [facility] Work Phone: (20 sources) HYDROcodone; Translations: [hydrocodone] Drug Allergy 3 [facility], Other [facility] Work Phone: (20 sources) HYDROmorphone; Translations: [Dilaudid] Drug Allergy Syncope [facility] Work Phone: (7 sources) HYDROmorphone; Translations: [HYDROMORPHONE] Drug Allergy 1 [facility]ync[facility], [facility] (20 sources) Latex rubber gloves; Translations: [Latex Gloves] Allergy to drug (finding) [facility] [address] Work Phone: (20 sources) natural latex rubber; Translations: [LATEX] Allergy to substance (finding) 3 [facility] (5 sources) guaiFENesin / HYDROcodone Drug Allergy 3 Other [facility] (4 sources) Latex Allergy to substance 3 [facility] Work Phone: (2 sources) Acetaminophen / HYDROcodone; Translations: [HYDROCODONE-ACET AMINOPHEN] Drug Allergy 3 [facility] (2 sources) HYDROCODONE-GUAIF ENESIN; Translations: [HYDROCODONE-GUAI FENESIN] Propensity to adverse reactions to drug (disorder) 3 [facility] Medications Current Medications Medication Drug Class(es) [...] DO Start : 29-Dec-2021 Complete bifidobacterium animalis [id number] unt / lactobacillus acidophilus [id number] unt oral capsule (20 sources) End: 10-18-2023 [...] 11-08-2021 Episodic Other aftercare (1 source) 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; Translations: [OTH INTERMEDIATE CURRENT DRUG THERAPY] Onset: 9 Episodic Other [...] 15:04-0400 Body height 157.5 cm Alexa Lancaster APRN-HOSPICE VOLUNTEER COORDINATOR Work Phone: [facility] 03-14-2023 15:04-0400 Body mass index (BMI) [Ratio] 24.14 kg/m2 Alexa Lancaster APRN-HOSPICE VOLUNTEER COORDINATOR Work Phone: [facility] 03-14-2023 15:04-0400 Body weight 59.88 kg Alexa Lancaster APRN-HOSPICE VOLUNTEER COORDINATOR Work Phone: [facility] 03-14-2023 15:04-0400 Diastolic blood pressure 65 mm[Hg] Alexa Lancaster APRN-HOSPICE VOLUNTEER COORDINATOR Work Phone: [facility] 03-14-2023 15:04-0400 Heart rate 86 /min Alexa Lancaster APRN-HOSPICE VOLUNTEER COORDINATOR Work Phone: [facility] 03-14-2023 15:04-0400 Systolic blood pressure 101 mm[Hg] Alexa Lancaster APRN-HOSPICE VOLUNTEER COORDINATOR Work Phone: [facility] 12-06-2022 13:21-0500 Body height 157.48 cm Chrystal Harrington Work Phone: [address] Work Phone: 12-06-2022 13:21-0500 Body mass index (BMI) [Ratio] 23.85 kg/m2 Chrystal Harrington Work Phone: [place] [address] [address] Work Phone: 12-06-2022 13:21-0500 Body surface area Derived from formula 1.59 m2 Chrystal Harrington Work Phone: [place] [address] [address] Work Phone: 12-06-2022 13:21-0500 Body weight 59.13 kg Chrystal Harrington Work Phone: [address] Work Phone: 12-06-2022 13:21-0500 Diastolic blood pressure 70 mm[Hg] Chrystal Harrington Work Phone: [address] Work Phone: 12-06-2022 13:21-0500 Systolic blood pressure 108 mm[Hg] Chrystal Harrington Work Phone: [address] Work Phone: 09-24-2022 14:10-0500 Body height 157.48 cm Chrystal Harrington Work Phone: [facility] Work Phone: 09-24-2022 14:10-0500 Body mass index (BMI) [Ratio] 24.14 kg/m2 Chrystal Vallejoall Work Phone: [facility] Work Phone: 09-24-2022 14:10-0500 Body surface area Derived from formula 1.6 m2 Chrystal Vallejoall Work Phone: [facility] Work Phone: 09-24-2022 14:10-0500 Body weight 59.88 kg Chrystal Vallejoall Work Phone: [facility] Work Phone: 09-24-2022 14:10-0500 Diastolic blood pressure 78 mm[Hg] Chrystal Harrington Work Phone: [facility] Work Phone: 09-24-2022 14:10-0500 Heart rate 100 /min Chrystal Harrington Work Phone: [facility] Work Phone: 09-24-2022 14:10-0500 SaO2% (BldA) [Mass fraction] 97 % Chrystal Harrington Work Phone: [facility] Work Phone: 09-24-2022 14:10-0500 Systolic blood pressure 110 mm[Hg] Chrystal Harrington Work Phone: [facility] Work Phone: 03-05-2022 11:05-0400 Body height 157.48 cm Chrystal Harrington Work Phone: [place] [address] [address] Work Phone: 03-05-2022 11:05-0400 Body mass index (BMI) [Ratio] 28.4 kg/m2 Chrystal Harrington Work Phone: [facility] [place] [address] [address] Work Phone: 03-05-2022 11:05-0400 Body surface area Derived from formula 1.72 m2 Chrystal Harrington Work Phone: [place] [address] [address] [place] Work Phone: 03-05-2022 11:05-0400 Body weight 70.42 kg Chrystal Harrington Work Phone: [facility] [address] Work Phone: 03-05-2022 11:05-0400 Diastolic blood pressure 78 mm[Hg] Chrystal Harrington Work Phone: [place] [address] [address] Work Phone: 03-05-2022 11:05-0400 Systolic blood pressure 118 mm[Hg] Chrystal Vallejoall Work Phone: [address] Work Phone: 02-13-2022 13:24-0400 Body height 157.48 cm Chrystal Vallejoall Work Phone: [facility] Work Phone: 02-13-2022 13:24-0400 Body mass index (BMI) [Ratio] 28.53 kg/m2 Chrystal Vallejoall Work Phone: [facility] Work Phone: 02-13-2022 13:24-0400 Body surface area Derived from formula 1.72 m2 Chrystal Vallejoall Work Phone: [facility] Work Phone: 02-13-2022 13:24-0400 Body weight 70.76 kg Chrystal Harrington Work Phone: [facility] Work Phone: 02-13-2022 13:24-0400 Diastolic blood pressure 62 mm[Hg] Chrystal Vallejoall Work Phone: [facility] Work Phone: 02-13-2022 13:24-0400 Heart rate 72 /min Chrystal Vallejoall Work Phone: [facility] Work Phone: 02-13-2022 13:24-0400 Systolic blood pressure 104 mm[Hg] Chrystal Wrightenhall Work Phone: [facility] Work Phone: 01-12-2022 13:16-0400 Body height 157.48 cm Chrystal Vallejoall Work Phone: [facility] Work Phone: 01-12-2022 13:16-0400 Body mass index (BMI) [Ratio] 30.18 kg/m2 Chrystal Harrington Work Phone: [facility] Work Phone: 01-12-2022 13:16-0400 Body surface area Derived from formula 1.76 m2 Chrystal Harrington Work Phone: [facility] Work Phone: 01-12-2022 13:16-0400 Body weight 74.84 kg Chrystal Harrington Work Phone: [facility] Work Phone: 01-12-2022 13:16-0400 Diastolic blood pressure 64 mm[Hg] Chrystal Harrington Work Phone: [facility] Work Phone: 01-12-2022 13:16-0400 Heart rate 100 /min Chrystal Harrington Work Phone: [facility] Work Phone: 01-12-2022 13:16-0400 Systolic blood pressure 108 mm[Hg] Chrystal Harrington Work Phone: [facility] Work Phone: 12-19-2021 13:44-0500 Body height 157.48 cm Chrystal Harrington Work Phone: [place] [address] [address] [place] Work Phone: 12-19-2021 13:44-0500 Body mass index (BMI) [Ratio] 30.52 kg/m2 Chrystal Harrington Work Phone: [place] [address] [address] Work Phone: 12-19-2021 13:44-0500 Body surface area Derived from formula 1.77 m2 Chrystal Harrington Work Phone: [place] [address] [address] [place] Work Phone: 12-19-2021 13:44-0500 Body weight 75.7 kg Chrystal Vallejoall Work Phone: [place] [address] [address] [place] Work Phone: 12-19-2021 13:44-0500 Diastolic blood pressure 80 mm[Hg] Chrystal Wrightenhall Work Phone: [place] [address] [address] [place] Work Phone: 12-19-2021 13:44-0500 Systolic blood pressure 102 mm[Hg] Chrystal Vallejoall Work Phone: [place] [address] [address] [place] Work Phone: 11-10-2021 13:51-0500 Body height 157.48 cm Chrystal Harrington Work Phone: [place] [address] [address] [place] Work Phone: 11-10-2021 13:51-0500 Body mass index (BMI) [Ratio] 35.73 kg/m2 Chrystal Vallejoall Work Phone: [place] [address] [address] [place] Work Phone: 11-10-2021 13:51-0500 Body surface area Derived from formula 1.89 m2 Chrystal Harrington Work Phone: [place] [address] [address] [place] Work Phone: 11-10-2021 13:51-0500 Body temperature 98.6 [degF] Chrystal Vallejoall Work Phone: [place] [address] [address] [place] Work Phone: 11-10-2021 13:51-0500 Body weight 88.6 kg Chrystal Vallejoall Work Phone: [place] [address] [address] [place] Work Phone: 11-10-2021 13:51-0500 Diastolic blood pressure 80 mm[Hg] Chrystal Vallejoall Work Phone: [place] [address] [address] Work Phone: 11-10-2021 13:51-0500 Systolic blood pressure 120 mm[Hg] Chrystal Harrington Work Phone: [place] [address] [address] Work Phone: 11-09-2021 13:41-0500 Body temperature 98.78 [degF] Chrystal Vallejoall Other Phone: [facility] 11-09-2021 13:41-0500 Diastolic blood pressure 76 mm[Hg] Chrystal Wrightenhall Other Phone: [facility] 11-09-2021 13:41-0500 Heart rate 104 /min Chrystal Vallejoall Other Phone: [facility] 11-09-2021 13:41-0500 Respiratory rate 18 /min Chrystal Vallejoall Other Phone: [facility] 11-09-2021 13:41-0500 SaO2% (BldA) [Mass fraction] 99 % Chrystal Harrington Other Phone: [facility] 11-09-2021 13:41-0500 Systolic blood pressure 129 mm[Hg] Chrystal Vallejoall Other Phone: [facility] 10-31-2021 14:32-0500 Body height 157.48 cm Chrystal Harrington Work Phone: [place] [address] [address] [employer] Work Phone: 10-31-2021 14:32-0500 Body mass index (BMI) [Ratio] 37.18 kg/m2 Chrystal Harrington Work Phone: [place] [address] [address] Work Phone: 10-31-2021 14:32-0500 Body surface area Derived from formula 1.92 m2 Chrystal Harrington Work Phone: [place] [address] [address] Work Phone: 10-31-2021 14:32-0500 Body temperature 96.8 [degF] Chrystal Harrington Work Phone: [place] [address] [address] Work Phone: 10-31-2021 14:32-0500 Body weight 92.2 kg Chrystal Vallejoall Work Phone: [place] [address] [address] Work Phone: 10-31-2021 14:32-0500 Diastolic blood pressure 72 mm[Hg] Chrystal Vallejoall Work Phone: [place] [address] [address] [place] Work Phone: 10-31-2021 14:32-0500 Systolic blood pressure 120 mm[Hg] Chrystal Vallejoall Work Phone: [place] [address] [address] [place] Work Phone: 10-24-2021 14:04-0500 Body height 157.48 cm Chrystal Harrington Work Phone: [address] Work Phone: 10-24-2021 14:04-0500 Body mass index (BMI) [Ratio] 36.85 kg/m2 Chrystal Harrington Work Phone: [address] Work Phone: 10-24-2021 14:04-0500 Body surface area Derived from formula 1.92 m2 Chrystal Vallejoall Work Phone: [place] [address] [address] [place] Work Phone: 10-24-2021 14:04-0500 Body temperature 97.1 [degF] Chrystal Vallejoall Work Phone: [place] [address] [address] Work Phone: 10-24-2021 14:04-0500 Body weight 91.4 kg Chrystal Vallejoall Work Phone: [place] [address] [address] Work Phone: 10-24-2021 14:04-0500 Diastolic blood pressure 76 mm[Hg] Chrystal Harrington Work Phone: [place] [address] [address] [place] Work Phone: 10-24-2021 14:04-0500 Systolic blood pressure 120 mm[Hg] Chrystal Vallejoall Work Phone: [place] [address] [address] [place] Work Phone: 09-29-2021 13:00-0500 Body height 157.48 cm Chrystal Vallejoall Work Phone: [place] [address] [address] Work Phone: 09-29-2021 13:00-0500 Body mass index (BMI) [Ratio] 34.48 kg/m2 Chrystal Harrington Work Phone: [place] [address] [address] Work Phone: 09-29-2021 13:00-0500 Body surface area Derived from formula 1.86 m2 Chrystal Harrington Work Phone: [place] [address] [address] Work Phone: 09-29-2021 13:00-0500 Body temperature 96.9 [degF] Chrystal Harrington Work Phone: [place] [address] [address] Work Phone: 09-29-2021 13:00-0500 Body weight 85.5 kg Chrystal Vallejoall Work Phone: [place] [address] [address] Work Phone: 09-29-2021 13:00-0500 Diastolic blood pressure 60 mm[Hg] Chrystal Edu [place] Work Phone: [place] [address] [address] Work Phone: 09-29-2021 13:00-0500 Systolic blood pressure 120 mm[Hg] Chrystal Wrightenhall Work Phone: [place] [address] [address] Work Phone: 09-18-2021 15:35-0500 Body height 157.48 cm Chrystal Vallejoall Work Phone: [place] [address] [address] Work Phone: 09-18-2021 15:35-0500 Body mass index (BMI) [Ratio] 35.28 kg/m2 Chrystal Vallejoall Work Phone: [place] [address] [address] Work Phone: 09-18-2021 15:35-0500 Body surface area Derived from formula 1.88 m2 Chrystal Vallejoall Work Phone: [place] [address] [address] Work Phone: 09-18-2021 15:35-0500 Body temperature 96.8 [degF] Chrystal Vallejoall Work Phone: [place] [address] [address] Work Phone: 09-18-2021 15:35-0500 Body weight 87.5 kg Chrystal Vallejoall Work Phone: [place] [address] [address] [place] Work Phone: 09-18-2021 15:35-0500 Diastolic blood pressure 70 mm[Hg] Chrystal Vallejoall Work Phone: [place] [address] [address] Work Phone: 09-18-2021 15:35-0500 Systolic blood pressure 120 mm[Hg] Chrystal Wrightenhall Work Phone: [place] [address] [address] Work Phone: 09-05-2021 08:27-0500 Body height 157.48 cm Chrystal Vallejoall Work Phone: [place] [address] [address] Work Phone: 09-05-2021 08:27-0500 Body mass index (BMI) [Ratio] 34.52 kg/m2 Chrystal Vallejoall Work Phone: [place] [address] [address] Work Phone: 09-05-2021 08:27-0500 Body surface area Derived from formula 1.86 m2 Chrystal Harrington Work Phone: [place] [address] [address] [place] Work Phone: 09-05-2021 08:27-0500 Body temperature 95.7 [degF] Chrystal Harrington Work Phone: [place] [address] [address] Work Phone: 09-05-2021 08:27-0500 Body weight 85.6 kg Chrystal Harrington Work Phone: [place] [address] [address] Work Phone: 09-05-2021 08:27-0500 Diastolic blood pressure 62 mm[Hg] Chrystal Harrington Work Phone: [place] [address] [address] [place] Work Phone: 09-05-2021 08:27-0500 Systolic blood pressure 100 mm[Hg] Chrystal Harrington Work Phone: [place] [address] [address] Work Phone: 08-21-2021 10:24-0500 Body height 157.48 cm Chrystal Vallejoall Work Phone: [place] [address] [address] [place] Work Phone: 08-21-2021 10:24-0500 Body mass index (BMI) [Ratio] 33.27 kg/m2 Chrystal Vallejoall Work Phone: [place] [address] [address] Work Phone: 08-21-2021 10:24-0500 Body surface area Derived from formula 1.84 m2 Chrystal Harrington Work Phone: [place] [address] [address] Work Phone: 08-21-2021 10:24-0500 Body temperature 97.5 [degF] Chrystal Harrington Work Phone: [place] [address] [address] Work Phone: 08-21-2021 10:24-0500 Body weight 82.5 kg Chrystal Harrington Work Phone: [place] [address] [address] Work Phone: 08-21-2021 10:24-0500 Diastolic blood pressure 60 mm[Hg] Chrystal Harrington Work Phone: [place] [address] [address] Work Phone: 08-21-2021 10:24-0500 Systolic blood pressure 98 mm[Hg] Chrystal Harrington Work Phone: [place] [address] [address] Work Phone: 07-24-2021 16:04-0400 Body height 157.48 cm Chrystal Harrington Work Phone: [place] [address] [address] Work Phone: 07-24-2021 16:04-0400 Body mass index (BMI) [Ratio] 30.85 kg/m2 Chrystal Harrington Work Phone: [place] [address] [address] Work Phone: 07-24-2021 16:04-0400 Body surface area Derived from formula 1.78 m2 Chrystal Harrington Work Phone: [place] [address] [address] Work Phone: 07-24-2021 16:04-0400 Body temperature 98.2 [degF] Chrystal Harrington Work Phone: [place] [address] [address] Work Phone: 07-24-2021 16:04-0400 Body weight 76.5 kg Chrystal Harrington Work Phone: [employer] Work Phone: 07-24-2021 16:04-0400 Diastolic blood pressure 68 mm[Hg] Chrystal Harrington Work Phone: [place] [address] [address] [place] Work Phone: 07-24-2021 16:04-0400 Systolic blood pressure 100 mm[Hg] Chrystal Harrington Work Phone: [facility] Work Phone: 07-19-2021 15:40-0400 Body height 157.48 cm Chrystal Harrington Work Phone: [facility] Work Phone: 07-19-2021 15:40-0400 Body mass index (BMI) [Ratio] 31.09 kg/m2 Chrystal Harrington Work Phone: [facility] [facility] Work Phone: 07-19-2021 15:40-0400 Body surface area Derived from formula 1.78 m2 Chrystal Harrington Work Phone: [facility] Work Phone: 07-19-2021 15:40-0400 Body temperature 98.2 [degF] Chrystal Vallejoall Work Phone: [facility] [place] [place] Work Phone: 07-19-2021 15:40-0400 Body weight 77.1 kg Chrystal Vallejoall Work Phone: [employer] Work Phone: 07-19-2021 15:40-0400 Diastolic blood pressure 70 mm[Hg] Chrystal Vallejoall Work Phone: [place] [address] [place] [address] Work Phone: 07-19-2021 15:40-0400 Systolic blood pressure 120 mm[Hg] Chrystal Harrington Work Phone: [place] [address] [place] [address] Work Phone: 06-26-2021 14:56-0400 Body height 157.48 cm Chrystal Harrington Work Phone: [place] [address] [employer] Work Phone: 06-26-2021 14:56-0400 Body mass index (BMI) [Ratio] 28.53 kg/m2 Chrystal Harrington Work Phone: [place] [address] [address] [employer] Work Phone: 06-26-2021 14:56-0400 Body surface area Derived from formula 1.72 m2 Chrystal Harrington Work Phone: [place] [address] [address] Work Phone: 06-26-2021 14:56-0400 Body temperature 98 [degF] Chrystal Harrington Work Phone: [place] [address] [address] Work Phone: 06-26-2021 14:56-0400 Body weight 70.76 kg Chrystal Harrington Work Phone: [place] [address] [address] Work Phone: 06-26-2021 14:56-0400 Diastolic blood pressure 60 mm[Hg] Chrystal Harrington Work Phone: [place] [address] [place] [address] Work Phone: 06-26-2021 14:56-0400 Systolic blood pressure 112 mm[Hg] Chrystal Harrington Work Phone: [place] [address] [address] Work Phone: 06-15-2021 18:43-0400 Body height 160 cm Chrystalann-marie Harrington Other Phone: [facility] 06-15-2021 18:43-0400 Body temperature 98.6 [degF] Chrystal Harrington Other Phone: [facility] 06-15-2021 18:43-0400 Diastolic blood pressure 55 mm[Hg] Chrystal Harrington Other Phone: [facility] 06-15-2021 18:43-0400 Heart rate 128 /min Chrystal Harrington Other Phone: [facility] 06-15-2021 18:43-0400 SaO2% (BldA) [Mass fraction] 98 % Chrystal Harrington Other Phone: [facility] 06-15-2021 18:43-0400 Systolic blood pressure 98 mm[Hg] Chrystal Harrington Other Phone: [facility] 05-29-2021 15:12-0400 Body height 157.48 cm Chrystal Harrington Work Phone: [employer] Work Phone: 05-29-2021 15:12-0400 Body mass index (BMI) [Ratio] 27.14 kg/m2 Chrystal Harrington Work Phone: [employer] Work Phone: 05-29-2021 15:12-0400 Body surface area Derived from formula 1.68 m2 Chrystal Harrington Work Phone: [employer] Work Phone: 05-29-2021 15:12-0400 Body temperature 97.7 [degF] Chrystal Harrington Work Phone: [employer] Work Phone: 05-29-2021 15:12-0400 Body weight 67.3 kg Chrystal Harrington Work Phone: [employer] Work Phone: 05-29-2021 15:12-0400 Diastolic blood pressure 72 mm[Hg] Chrystal Harrington Work Phone: [place] [address] [place] [address] Work Phone: 05-29-2021 15:12-0400 Systolic blood pressure 112 mm[Hg] Chrystal Harrington Work Phone: [place] [address] [employer] Work Phone: 05-01-2021 15:12-0400 Body height 157.48 cm Chrystal Harrington Work Phone: [place] [address] [address] [employer] Work Phone: 05-01-2021 15:12-0400 Body mass index (BMI) [Ratio] 24.4 kg/m2 Chrystal Harrington Work Phone: [place] [address] [place] [address] Work Phone: 05-01-2021 15:12-0400 Body surface area Derived from formula 1.61 m2 Chrystal Harrington Work Phone: [place] [address] [address] Work Phone: 05-01-2021 15:12-0400 Body temperature 97.3 [degF] Chrystal Harrington Work Phone: [place] [address] [place] [address] Work Phone: 05-01-2021 15:12-0400 Body weight 60.5 kg Chrystal Vallejoall Work Phone: [place] [address] [place] [address] Work Phone: 05-01-2021 15:12-0400 Diastolic blood pressure 64 mm[Hg] Chrystal Sorensen [place] Work Phone: [place] [address] [place] [address] Work Phone: 05-01-2021 15:12-0400 Systolic blood pressure 108 mm[Hg] Chrystal Harrington Work Phone: [address] Work Phone: 04-25-2021 13:30-0400 Body height 157.48 cm Chrystal Harrington Work Phone: [facility] Work Phone: 04-25-2021 13:30-0400 Body mass index (BMI) [Ratio] 24.14 kg/m2 Chrystal Harrington Work Phone: [facility] Work Phone: 04-25-2021 13:30-0400 Body surface area Derived from formula 1.6 m2 Chrystal Harrington Work Phone: [facility] Work Phone: 04-25-2021 13:30-0400 Body weight 59.87 kg Chrystal Harrington Work Phone: [facility] Work Phone: 04-25-2021 13:30-0400 Diastolic blood pressure 62 mm[Hg] Chrystal Harrington Work Phone: [facility] Work Phone: 04-25-2021 13:30-0400 Heart rate 84 /min Chrystal Harrington Work Phone: [facility] Work Phone: 04-25-2021 13:30-0400 Systolic blood pressure 124 mm[Hg] Chrystal Harrington Work Phone: [facility] Work Phone: 04-03-2021 15:08-0400 Body height 157.48 cm Chrystal Harrington Work Phone: [address] Work Phone: 04-03-2021 15:08-0400 Body mass index (BMI) [Ratio] 23.39 kg/m2 Chrystal Harrington Work Phone: [facility] [place] [address] [place] Work Phone: 04-03-2021 15:08-0400 Body surface area Derived from formula 1.58 m2 Chrystal Harrington Work Phone: [place] [address] [place] Work Phone: 04-03-2021 15:08-0400 Body temperature 97.5 [degF] Chrystal Harrington Work Phone: [place] [address] [address] Work Phone: 04-03-2021 15:08-0400 Body weight 58 kg Chrystal Harrington Work Phone: [address] [facility] [place] [address] [address] Work Phone: 04-03-2021 15:08-0400 Diastolic blood pressure 62 mm[Hg] Chrystal Harrington Work Phone: [place] [address] [place] [address] Work Phone: 04-03-2021 15:08-0400 Systolic blood pressure 110 mm[Hg] Chrystal Harrington Work Phone: [address] hospital[facility]scoutDanny [place] [address] [place] Work Phone: 03-20-2021 13:31-0400 Body height 157.48 cm Chrystal Harrington Work Phone: [place] [address] [place] [address] Work Phone: 03-20-2021 13:31-0400 Body mass index (BMI) [Ratio] 22.94 kg/m2 Chrystal Vallejoall Work Phone: [address] [facility] hospital[facility]out[facility] [place] [address] [place] Work Phone: 03-20-2021 13:31-0400 Body surface area Derived from formula 1.57 m2 Chrystal Vallejoall Work Phone: Social 2 [place] [address] [place] Work Phone: 03-20-2021 13:31-0400 Body temperature 98 [degF] Chrystal Harrington Work Phone: [address] Work Phone: 03-20-2021 13:31-0400 Body weight 56.9 kg Chrystal Harrington Work Phone: [address] Work Phone: 03-20-2021 13:31-0400 Diastolic blood pressure 62 mm[Hg] Chrystal Harrington Work Phone: [address] Work Phone: 03-20-2021 13:31-0400 Systolic blood pressure 112 mm[Hg] Chrystal Harrington Work Phone: [address] Work Phone: 11-11-2020 10:53-0500 BMI (Body Mass Index) 22.42 kg/m2 Alexa Beyer [facility] Work Phone: 11-11-2020 10:53-0500 Body Temperature 96.6 [degF] Alexa Beyer [facility] Work Phone: 11-11-2020 10:53-0500 Body weight 55.61 kg Alexa Beyer [facility] Work Phone: 11-11-2020 10:53-0500 BP Diastolic 68 mm[Hg] Alexa Beyer [facility] Work Phone: 11-11-2020 10:53-0500 BP Systolic 106 mm[Hg] Alexa Warekins [facility] Work Phone: 11-11-2020 10:53-0500 BSA (Body Surface Area) 1.55 m2 Alexa Beyer [facility] Work Phone: 11-11-2020 10:53-0500 Height 157.48 cm Alexa Warekins [facility] Work Phone: 11-11-2020 10:53-0500 Pulse (Heart Rate) 115 /min Alexa Beyer [facility] Work Phone: 11-11-2020 10:53-0500 Pulse Oximetry 98 % Alexa Beyer [facility] Work Phone: 10-31-2020 18:57-0500 BP Diastolic 74 mm[Hg] [facility] [employer] 10-31-2020 18:57-0500 BP Systolic 125 mm[Hg] [facility] [employer] [facility] 10-31-2020 18:57-0500 Pulse (Heart Rate) 95 /min [facility] [employer] [facility] 10-31-2020 18:57-0500 Pulse Oximetry 99 % [facility] [employer] [facility] 10-31-2020 18:57-0500 Respiratory Rate 16 /min [facility] [employer] [facility] 10-31-2020 16:27-0500 Height 157.5 cm [facility] [employer] [facility] 10-31-2020 16:26-0500 Body Temperature 98.2 [degF] [facility] stem Encounters Encounter Date Encounter Type Care Provider Facility Start: 10-18-2023 End: 10-18-2023 ambulatory ALEXA De Jesus [facility] Start: 10-18-2023 End: 10-18-2023 Office outpatient visit 25 minutes Alexa Lancaster DIRECTOR [facility]-HOSPICE VOLUNTEER COORDINATOR Work Phone: [facility] Procedures Date Procedure [...] Start: 03-19-2023 Cyanocobalamin vitamin b-12 [employer] Start: 03-19-2023 Ferritin [Mass/volume] in Serum or [...] of 2) Zoster Vaccines (1 of 2) [facility] Start: 08-22-2031 DTaP/Tdap/Td Vaccines (7 - Td or Tdap) DTaP/Tdap/Td Vaccines (7 - Td or Tdap) [facility] Start: 03-19-2028 Lipid panel Lipid Panel [facility] Start: 03-20-2027 Lipid panel Lipid Panel [facility] Start: 05-01-2024 Screening for malignant neoplasm of cervix [facility] Start: 04-27-2024 End: 04-27-2024 Patient encounter procedure 04/27/2024 2:00 PM EDT Office Visit [facility] [address] [place] [id number] Chrystal Harrington PA-C [address] [place] [address] [facility] Start: 09-01-2023 Influenza vaccination [facility] Start: 04-11-2023 End: 04-11-2023 Patient encounter procedure 04/11/2023 9:40 AM EDT Office Visit [facility] [address] [place] [address] Chrystal Harrington PA-C [address] [place] [address] [facility] Start: 03-20-2023 End: [...] pertussis vaccine, adsorbed Chrystal Harrington Work Phone: [address] Work Phone: 08-04-2020 hepatitis B vaccine, pediatric or pediatric/adolescent dosage Alexa Beyer [facility] Work Phone: Payers Date Payer Category Payer Unknown [id number] 2021 Unknown [id number] 2021 Unknown [id number] 2019 Unknown 2000 Unknown [id number] 2.16.84 [id number] 2000 Unknown [id number] 2.16 [id number] 2000 Unknown [id number] 2.16 [id number] 2000 Unknown [id number] 2.16. 840.1.077324.3.579.2.356 2000 Unknown [id number] 2.16. 840.1.027836.3.579.2.356 2000 Unknown [id number] 2.16. 840.1.896617.3.579.2.356 2000 Unknown [id number] 2.16. 840.1.031233.3.579.2.356 2000 Unknown [id number] 2.16. 840.1.836927.3.579.2.356 2000 Unknown [id number] 2.16.8 40.1.099747.3.579.2.1069 2000 Unknown [id number] 2.16.84 0.1.907092.3.579.2.124 2000 Unknown [id number] 2.16.84 0.1.986065.3.579.2.5 2000 Unknown [id number] 2.16.84 0.1.787328.3.579.2.1244 2000 Unknown [id number] 2.16.8 40.1.127604.3.579.2.4 2000 Unknown [id number] 2.16.84 0.1.063266.3.579.2.1243 2000 Unknown [id number] 2.16.84 0.1.606661.3.579.2.4 2000 Unknown [id number] 2.16.84 0.1.691026.3.579.2.1243 2000 Unknown [id number] 2.16.84 0.1.567259.3.579.2.1243 2000 Unknown [id number] 2.16.84 0.1.929576.3.579.2.1244 1959 Unknown [id number] Social History Date Type Detail Facility Start: 10-31-2020 Tobacco smoking stat [facility] Current some day smoker [facility] Start: 10-31-2020 End: 01-30-2023 Tobacco use and exposure Never used [facility] Start: 10-31-2020 End: 03-20-2023 Alcohol intake Current drinker of alcohol (finding) [employer] Start: 10-31-2020 Tobacco Comment [employer] Start: 10-31-2020 Alcohol Comment occasional [facility] Start: 2000 Sex Assigned At Not on file [employer] Start: 03-04-2023 End: 03-19-2023 Exposure to SARS-CoV-2 (event) Not sure [employer] Start: 02-08-2023 End: 04-24-2023 Coffee [facility] [address] Work Phone: Functional Status Date Assessment Result Facility Functional observable [facility] NEGATED: Highlighted row Functional performance Functional status health issues are not documented Disease [facility] Work Phone: Mental Status Date Assessment Result Facility 11-08-2021 Cognitive functi ons :44 [facility] NEGATED: Highlighted row Cognitive function [Interpretation] Cognitive status health issues are not documented Disease [facility] Work Phone: Clinical Notes [...] up as before documented in this encounter [facility] Work Phone: 03-20-2023 History of Present illness Narrative Subjective Patient ID: Johny Cuevas is a 22 y.o. female who presents for Results (NO ADDITIONAL CONCERNS ). VIRTUAL APPOINTMENT BEING PERFORMED DUE TO COVID-19 (CORONAVIRUS) HPI: Presents today for [facility]. NO NEW COMPLAINTS IRON- SHE STATES [...] RM WITH LABS documented in this encounter [facility] Work Phone: 03-20-2023 Instructions JANINA Lara - 03/20/2023 3:40 PM EDT 1 month with labs with RM Cancel 04/11/23 documented in this encounter [facility] Work Phone: 03-14-2023 History of Present [...] LABS WITH RM documented in this encounter [facility] Work Phone: 10-17-2022 Chief complaint Narrative [...] visit.Pt vv 6 mnth fu with labs. [facility] Work Phone: 03-05-2022 Note Previous comment was modified by KATT at 15:06 on 03/09/2022 CULTURE IN PROGRESS. FINAL REPORT IN 72 HOURS. Culture examined for Group A Streptococcus, Group B Streptococcus, Neisseria gonorrhoeae and Yeast ONLY. NO Neisseria gonorrhoeae ISOLATED. PATIENT: JOHNY CUEVAS LOCATION: [facility] BILL#: [id number] : [birth year] AGE: SEX: F ORDERED BY: [...] and Yeast ONLY. NO Neisseria gonorrhoeae ISOLATED. [facility] documented in this encounter [facility] Work Phone: Evaluation note* Diagnosis Abscess- Primary Cellulitis and abscess of unspecified site Low thyroid stimulating hormone (TSH) level Iron deficiency anemia, unspecified iron deficiency anemia type documented in this encounter [facility] Work Phone: Evaluation note* Diagnosis Iron deficiency anemia, unspecified iron deficiency anemia type- Primary Ortiz's thyroiditis Chronic lymphocytic thyroiditis documented in this encounter [facility] Work Phone: Evaluation note* Diagnosis Acute non-recurrent maxillary sinusitis- Primary Nasal congestion Other diseases of nasal cavity and sinuses documented in this encounter [facility] Work Phone: History of Present illness [id number] G1 presents for follow-up viability ultrasound. Patient notes more breast tenderness nausea recently. Minimal cramps but no bleeding. Patient has no acute concerns.[address] Work Phone: History of Present illness [...] - ordered given some of her symptoms [facility] Work Phone: History of Present illness [id number] G1, P1 presents for concern for yellow discharge and a lot of pain. Patient strongly anxious with baby in her recovery. Patient is no other acute concernsWomenmercy health st[facility] hospital[facility] [employer] Work Phone: History of Present illness [id number] presents for 6-week status post spontaneous vaginal delivery. Patient doing well. Patient struggled with constipation despite Colace twice a day. Patient drinking tons of waterfor breast-feeding. Infant doing well. Patient not sexually active. Patient is no period. Patient like discussed control. Patient is no other acute concernsWomenmercy health st. [facility] warren hospitalBeakerPow[facility] [employer] Work Phone: History of Present illness Narrative* [...] seasonal allergies. * She had COVID-19 09/2021. [facility] Work Phone: History of [...] is doing well. She cont to breastfeed [facility] Work Phone: History of [...] is doing well. She cont to breastfeed [facility] Work Phone: History of Present illness Narrative* Pt. presents for annual exam * up to date on pap * Still with bothersome scar tissue from perineal repair at last , did use estrogen cream for a while * d/c contraception and open to next , will start folic acid [address] Work Phone: History of Present illness Narrative* Alexa Lancaster, DIRECTOR [facility]ELOP[facility] C[facility]-HOSPICE VOLUNTEER COORDINATOR - 02/08/2023 9:40 AM EDT Subjective Patient [...] [facility] as [facility] Hospital Discharge instructions* Activity:Return [...] symptoms worsen, call 911 or go to [facility] room. *Information obtained from JASMYNE campbell: Save Your Life: Get Care for These POST- Warning SignsOn Behalf on the [facility] Maternity Staff, Congratulations on your infant. It was our pleasure to take care [...] us a call. Also, please join our [facility] Support Group which meets the saturday of every month at 10 am in the OB unit. No need to register. If you have any questions please call us at [phone]. Again, Congratulations! Warmest Regards,[facility]'s Maternity Staff [facility] Summary Purpose Family History No Family [...] New Request Procedures ECG Marybel Bustos PA-C [address] [place] [address] Discharge Instructions * Instructions* Marybel Bustos PA-C - 10/31/2020 Your blood work is normal, heart testing normal, and imaging normal today. Follow up with cardiology for further evaluation of passing out and palpitations. * Attachments The following attachments cannot be sent through Care Everywhere. * Palpitations (Indonesian) * Fainting (Indonesian) documented in this encounter Assessments Diagnosis Syncope, [...] DATE CREATED AUTHOR AUTHOR'S ORGANIZ ATION 06/19/2019 [facility] DATE CREATED AUTHOR AUTHOR'S ORGANIZ ATION 11/10/2020 [facility] DATE CREATED AUTHOR AUTHOR'S ORGANIZ ATION 01/04/2023 [facility] DATE CREATED AUTHOR AUTHOR'S ORGANIZ ATION 2023 [facility] DATE CREATED AUTHOR AUTHOR'S ORGANIZ ATION 04/24/2023 [facility] DATE CREATED AUTHOR AUTHOR'S ORGANIZ ATION 06/02/2023 [employer] DATE CREATED AUTHOR AUTHOR'S ORGANIZ ATION 10/20/2023 [facility] Ambulatory Reason for Visit (unrecogniz ed section [...] Care Teams (unrecognized sec tion and content) Pouncing Machine Operator Relationship Specialty Start Date End Date Chrystal Harrington PA-C [address] [place] [address] PCP - General 06/16/19 Chrystal Harrington PA-C [address] [place] [address] PCP - Douglas SALAZAR PCP 05/14/22 Pouncing Machine Operator Relationship Specialty Start Date End Date Chrystal Harrington PA-C [address] [place] [address] PCP - General 06/16/19 Chrystal Harrington PA-C [address] [place] [address] PCP - [facility] PCP 05/14/22 FOR RECORDS PERTAINING TO PATIENTS [...] BE BASED ON THE PRIMARY CLINICAL RECORDS. [facility] [employer] [facility]. provides no warranty or guarantee of the accuracy or completeness of information in this document.
== END 2023-12-18 19:20 | disposition home or self-care (01) ==
LOC: WPOUT 17:32 → WP 17:33
PROVIDERS: PCP Physician Assistant Medical; Referring Provider Obstetrics & Gynecology; Visit Provider Obstetrics & Gynecology
DX: O99.353 Diseases of the nervous system complicating pregnancy, third trimester (principal); G43.909 Migraine, unspecified, not intractable, without status migrainosus; Z87.891 Personal history of nicotine dependence; Z3A.37 37 weeks gestation of pregnancy
CPT/HCPCS: 82565; 84450; 84460; 84550; 85027; 96372; 99221; G0378; J3030

== ENCOUNTER → 2024-01-21 | Outpatient (CLI) | payer OTHER, MEDICAID, SELFPAY ==
[2024-01-25 17:09] LABS: HPV Reflexed? NOT INDICATED
== END | disposition home or self-care (01) ==
LOC: LABSPEC 11:44
PROVIDERS: PCP Physician Assistant Medical; Referring Provider Obstetrics & Gynecology; Visit Provider Obstetrics & Gynecology
DX: Z12.4 Encounter for screening for malignant neoplasm of cervix (principal)
CPT/HCPCS: 88175; G0145

== ENCOUNTER → 2024-06-03 | Outpatient (CLI) | payer OTHER, MEDICAID, SELFPAY ==
[2024-06-03 18:24] LABS: T4 Free Direct 0.99 ng/dL (0.76-1.46); Thyroid Stim Hormone (TSH) 0.063 uIU/mL (0.358-3.740)
== END | disposition home or self-care (01) ==
LOC: LAB 16:58
PROVIDERS: PCP Physician Assistant Medical; Referring Provider Internal Medicine Endocrinology, Diabetes & Metabolism; Visit Provider Internal Medicine Endocrinology, Diabetes & Metabolism
DX: R53.83 Other fatigue (principal); R53.81 Other malaise
CPT/HCPCS: 36415; 84439; 84443

== ENCOUNTER → 2024-07-09 | Outpatient (CLI) | payer OTHER, MEDICAID, SELFPAY | END | disposition home or self-care (01) | LOC: LAB 13:17 | PROVIDERS: PCP Physician Assistant Medical; Referring Provider Internal Medicine Endocrinology, Diabetes & Metabolism; Visit Provider Internal Medicine Endocrinology, Diabetes & Metabolism | DX: E06.3 Autoimmune thyroiditis (principal) | CPT/HCPCS: 36415; 84439; 84443; 84481 ==

== ENCOUNTER → 2024-09-14 | Outpatient (CLI) | payer OTHER, MEDICAID, SELFPAY ==
[2024-09-14 13:08] LABS: T4 Free Direct 1.08 ng/dL (0.76-1.46)
== END | disposition home or self-care (01) ==
PROVIDERS: PCP Physician Assistant Medical; Referring Provider Internal Medicine Endocrinology, Diabetes & Metabolism; Visit Provider Internal Medicine Endocrinology, Diabetes & Metabolism
DX: E06.3 Autoimmune thyroiditis (principal)
CPT/HCPCS: 36415; 84439; 84443

== ENCOUNTER → 2024-12-22 | Outpatient (CLI) | payer OTHER, MEDICAID, SELFPAY ==
[2024-12-22 12:52] LABS: Absolute Lymphocyte Count 1.37 X10^3/uL (0.83-4.51); Absolute Neutrophil Count 2.2 X10^3/uL (2.0-7.7); Basophil# 0.03 X10^3/uL; Basophil% 0.7 % (0-1); Eosinophils% 4.9 % (0-5); Hematocrit 34.6 % (37-47); Hemoglobin 11.9 g/dL (12.0-15.0); Lymphocyte # 1.37 X10^3/ul (0.83-4.51); Lymphocyte % 33.3 % (19-41); Mean Corp Hgb Conc 34.4 g/dL (32-36); Mean Corpuscular Hgb 28.2 pg (27.0-32.0); Mean Platelet Vol. 9.9 fl (6.2-12.0); Monocyte# 0.33 X10^3/uL; NRBC Flagged by Analyzer 0 % (0-5); Neutrophil # 2.17 X10^3/uL (2.7-7.7); Neutrophil % 52.6 % (47-70); Platelet Count 279 K/mm3 (150-450); RBC Distribution Width CV 11.9 % (11.6-14.6); RBC Distribution Width SD 35.7 fl (35.1-43.9); Red Blood Count 4.22 M/mm3 (4.2-5.4); White Blood Count 4.1 K/mm3 (4.4-11.0)
[2024-12-22 14:04] LABS: Vitamin D,25 Hydroxy 25.5 ng/mL (30-100)
== END | disposition home or self-care (01) ==
PROVIDERS: PCP Physician Assistant Medical; Referring Provider Obstetrics & Gynecology; Visit Provider Obstetrics & Gynecology
DX: N93.9 Abnormal uterine and vaginal bleeding, unspecified (principal)
CPT/HCPCS: 36415; 82306; 85025

== ENCOUNTER → 2024-12-24 | Outpatient (CLI) | payer OTHER, MEDICAID, SELFPAY ==
--- NOTE | 2024-12-24 13:30 | US_ITS ---
PROCEDURE: PELVIC W/ TRANSVAGINAL REASON FOR EXAM: ABNORMAL UTERINE BLEEDING COMPARISON: None. TECHNIQUE: Transvaginal pelvic ultrasound. Color and spectral doppler analysis of the ovaries. FINDINGS: Uterus measures 9.6 x 5.7 x 4.6 cm. Nabothian cysts. Endometrium is 9 mm. Physiologic amount of free fluid in the pelvis. Right ovary measures 2.4 x 2.9 x 2.5 cm. The left measures 2.2 x 2.2 x 1.7 cm. Normal ovarian follicles. DOPPLER: Color Doppler: Normal color flow doppler signal at both ovaries. Spectral Doppler: Normal arterial inflow and venous outflow signal at both ovaries. US/Pelvic w/ Transvaginal IMPRESSION: NORMAL TRANSVAGINAL PELVIC ULTRASOUND WITH DOPPLER. Physiologic amount of free fluid Reading Location: [id number]
== END | disposition home or self-care (01) ==
PROVIDERS: PCP Physician Assistant Medical; Referring Provider Obstetrics & Gynecology; Visit Provider Obstetrics & Gynecology
DX: N93.9 Abnormal uterine and vaginal bleeding, unspecified (principal)
CPT/HCPCS: 76830; 76856

== ENCOUNTER → 2025-03-11 | Outpatient (CLI) | payer OTHER, SELFPAY ==
[2025-03-11 12:40] LABS: Absolute Lymphocyte Count 1.29 X10^3/uL (0.83-4.51); Absolute Neutrophil Count 3.4 X10^3/uL (2.0-7.7); Basophil# 0.05 X10^3/uL; Eosinophil# 0.14 X10^3/uL; Eosinophils% 2.7 % (0-5); Hemoglobin 11.2 g/dL (12.0-15.0); Lymphocyte # 1.29 X10^3/ul (0.83-4.51); Lymphocyte % 24.8 % (19-41); Mean Corp Hgb Conc 33.9 g/dL (32-36); Mean Corpuscular Hgb 28.5 pg (27.0-32.0); Mean Platelet Vol. 9.8 fl (6.2-12.0); Monocyte# 0.31 X10^3/uL; NRBC Flagged by Analyzer 0 % (0-5); Neutrophil % 65.3 % (47-70); Platelet Count 297 K/mm3 (150-450); RBC Distribution Width CV 12.6 % (11.6-14.6); RBC Distribution Width SD 38.5 fl (35.1-43.9); Red Blood Count 3.93 M/mm3 (4.2-5.4); White Blood Count 5.2 K/mm3 (4.4-11.0)
[2025-03-11 13:52] LABS: Vitamin D,25 Hydroxy 27.1 ng/mL (30-100)
== END | disposition home or self-care (01) ==
LOC: BIMLAB 09:00
PROVIDERS: Obstetrics & Gynecology; PCP Physician Assistant Medical; Referring Provider Internal Medicine Endocrinology, Diabetes & Metabolism; Visit Provider Internal Medicine Endocrinology, Diabetes & Metabolism
DX: N93.9 Abnormal uterine and vaginal bleeding, unspecified (principal); E06.3 Autoimmune thyroiditis
CPT/HCPCS: 36415; 82306; 84439; 84443; 85025

== ENCOUNTER → 2025-04-05 | Outpatient (CLI) | payer OTHER, MEDICAID, SELFPAY ==
[2025-04-05 17:24] LABS: Amphetamine Urine NEGATIVE (<1000 ng/mL); Barbiturate Urine NEGATIVE (< 200 ng/mL); Benzodiazepine Urine NEGATIVE (< 200 ng/mL); Buprenorphine Urine NEGATIVE (< 200 ng/mL); Cocaine Urine NEGATIVE (< 300 ng/mL); Fentanyl, Urine NEGATIVE; Methadone Urine NEGATIVE (< 300 ng/mL); Opiates Urine NEGATIVE (< 300 ng/mL); Oxycodone, Urine NEGATIVE (< 100 ng/mL); PCP Urine NEGATIVE (< 25 ng/mL); THC Urine NEGATIVE (< 50 ng/mL)
== END | disposition home or self-care (01) ==
LOC: LABSPEC 16:32
PROVIDERS: PCP Physician Assistant Medical; Referring Provider Obstetrics & Gynecology; Visit Provider Obstetrics & Gynecology
DX: O09.90 Supervision of high risk pregnancy, unspecified, unspecified trimester (principal); Z3A.00 Weeks of gestation of pregnancy not specified; O99.320 Drug use complicating pregnancy, unspecified trimester; F12.99 Cannabis use, unspecified with unspecified cannabis-induced disorder
CPT/HCPCS: 80307; 87086

== ENCOUNTER 2025-04-06 12:04 | Day surgery (SDC) | payer OTHER, MEDICAID, SELFPAY ==
[2025-04-06] VITALS (12 sets, daily range): BP systolic 84–111; BP diastolic 51–77; PULSE 69–80; RESP 16; TEMP 36.4–37; O2SAT 98–100; BMI 24.2
--- NOTE | 2025-04-06 11:57 | HP.PCM_ITS ---
History and Physical MR#: [id number] Acct: [id number] Name: JOHNY TORRES Rep #: [id number] : 2000 Provider: Dr. Brandi Freeman DO Age/Sex: 24/F Location: [facility] [place] Status: Signed Intake Vital Signs 12/22/2508:34 03/11/2508:03 04/05/2510:51 04/05/2510:53 Height 5 ft 3 in 5 ft 3 in 5 ft 3 in 5 ft 3 in Weight: 138 lb BMI 24.4 BP 121/79 H Intake Visit Reasons: *EST* NOB LMP 02/01, STARR 11/08 Nanoelectronics Engineer Required: No Is patient in pain?: No Allergies Latex, Natural Rubber Allergy (Mild, Verified 04/05/25 10:49) Itchinghydrocodone (From Vicodin) Allergy (Verified 04/05/25 10:49) otherhydromorphone (From Dilaudid) Adverse Reaction (Intermediate, Verified 04/05/25 10:49) passed out Medications ?Medication ?Instructions ?Recorded ?Confirmed ?Type multivit-min no.71-iron fum 28 1 cap PO DAILY 05/16/23 04/05/25 History mg-folate no.1 1 mg-dha 300 mg capsule (PNV-[place]) levothyroxine 50 mcg tablet 50 mcg PO QDAY #90 tabs 03/11/25 5 Rx albuterol sulfate 90 mcg/actuation 2 puff inhalation Q6H PRN 03/26/2504/05 History aerosol inhaler (Ventolin HFA) cholecalciferol (vitamin D3) 50 50 mcg PO QDAY 03/26/25 04/05/25 History mcg (2,000 unit) capsule Last Menstrual Period: 02/01/25 Zika: Zika virus screening: Negative : Yes PFSH PFSH Medical History H/O herpes genitalis Abnormal uterine bleeding 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 Autoimmune thyroiditis Vaginal delivery Oligohydramnios Gestational diabetes mellitus (GDM) affecting , antepartum Abnormal glucose affecting Shoulder dystocia during labor and delivery Rh negative status during Surgical History History of throat surgery History of tonsillectomy [place] teeth extracted Family History Grandmother Ovarian cancer, Onset Age: 70 Paternal great grandmother Colon cancer, Onset Age: 60 Paternal Social History adopted: No household members: spouse and children housing: house number of children: 2 current occupational status: unemployed current occupation: [employer] pets and animals: Yes pets and animals: dog(s) history of recent travel: No sexually active: Yes Smoking Status: Former smoker quit date: 03/15/21 pack-years: 4 Tobacco: How many years used: 2 Electronic Cigarette Use: with nicotine alcohol intake: current alcohol intake frequency: holidays/special occasions only details: not while substance use type: former substance user and marijuana well-balanced diet: daily or most days caffeine: No eating out: rarely or never during the past year weight has: decreased > 10 lbs what type of physical activity do you participate in: walking frequency: 1-2 times per week duration: 30-45 minutes/day stacey/islam: Orthodoxy seatbelt use: always do you feel safe at home: Yes additional social history: Shawn Torres History 3 Elective abortions Hx Para 2 Spontaneous abortions Hx # Term Pregnancies Ectopic pregnancies Hx # Pregnancies Multiple births # of living children 2 Past Pregnancies Del. Date Name GA/Weeks Outcome Route Bth Weight [facility] Tye 39 live - full term 8#6oz Mal e epidural [facility] Dr. Jordon Escobar 12/17/23 Kate 37 live - full term 6lbs 14oz Female epidural [facility] Olivia Escobar Delivery Date: 11/07/21 Last Updated by: Esme Baker MD IOL- small pelvis, shoulder dystocia and clavicle fracture Delivery Date: 12/17/23 Last Updated by: Nicole Mehta IOL oligo [email or web address] HPI *EST* NOB LMP 02/01, STARR 11/08 Details: JOHNY TORRES is a 24 year old who presents for New OB visit, has not been feeling nauseated. wants to discuss possible celiac disease testing for chronic anemia. The anemia is refractory to oral iron therapy. OB Visit STARR Calculator Estimated Delivery Date Method Current WG Current Estimate 11/08/25 LMP (Certain) 9w 0d Comments: HIV: Urine Culture: Sequential Screen: NIPT Screen: Estimated Due Date: 11/08/25 Initial Weight: Not Recorded Date -?-?-?-?-?-?-?-?-?-?-?-?- EGA Weight BP Urine Prot -?-?-?-?-?-?-?-?-?-?-?-?- Glucose FHR FuHt Pres Dilation -?-?-?-?-?-?-?-?-?-?-?-?- Effaced St Visit Note 04/05/25-?-?-?-?-?-?-?-?-?-?-?-?- 9w 0d 138 lb 121/79 -?-?-?-?-?-?-?-?-?-?-?-?- -?-?-?-?-?-?-?-?-?-?-?-?- JV- no heart beat on ultrasound. CRL is measuring 9 weeks 1 day. Menstrual History Last Menstrual Period: 02/01/25 Reported LMP: definite Normal amount/duration: Yes Frequency in days: 23 On hormonal BC at conception: No hCG+: 02/25/25 Antepartum Record Genetic Screening: Congenital Heart Defect: Other, Neural Tube Defect: Other, Hemoglobinopathy Or Carrier: Other, Cystic Fibrosis: Other, Chromosome Abnormality: Other, Tommy-Sachs: Other, Hemophilia: Other, Intellectual Disability/Autism: Other, Recurrent Loss/Stillbirth: Other, Other Structural Defect: Other, Other Genetic Disease: Other and Maternal [place] lic Disorder: Patient (GDMA last ) Infection History: Live with someone with TB or Exposed to TB: No, Patient or Partner has history of Genital Herpes: Yes (Pt hx of herpes), Rash or Viral il lness since last mentrual period: No, Prior GBS-Infected child: No, History of STD: No, HIV Infection: No, History of Hepatitis: No, Recent travel outside of [place]: No, Concern for hepatitis exposure: No, Varicella immune: Yes (immune-virus) and Covid Vaccinated: No Medical History Medical History: Positive: Diabetes (GDM-2nd ), Hypertension (GHTN -1st ), Auto-immune disorder (ortiz's), Psychiatric (PP anxiety with 1st , not second), Thyroid dysfunction (hypothyroidism), D (Rh) Sensitized (O-), Pulmonary (e.g.,TB,Asthma) (Asthma allergy induced), Drug/latex allergies/reactions (vicodin, dilaudid, latex), Operations/hospitalizations (throat, tonsillectomy, wisdom teeth), Relevant family history (See PFSH) and Other (chronic anemia, had iron infusion last with allergic reaction, migraine hx improved) and Negative: Heart disease, Kidney disease/UTI, Neurologic/epilepsy, Depression/ depression, Hepatitis/liver disease, Varicosities/phlebitis, Trauma/domestic violence, History of blood transfusions, Seasonal allergies, Breast, Fruit Coordinator surgery, Anesthetic complications, History of abnormal pap, Uterine anomaly/tana, Infertility and Anti-retroviral treatment ACOG First Trimester First Trimester: Desire for , Alcohol, Tobacco Cessation, Illicit/Recreational Drug/Substance Use, Intimate Partner Violence, Barriers to care, Unstable Housing, Communication Barriers, Environmental/Work Hazards, Anticipated Course of Care, Nurtrition and weight gain, Toxoplasmosis Precations, Use of Any medications, Sexual activity, Exercise, Dental Care, Sauna/Hot tub use, Seat Belt use, Childbirth classes/Hospital facilities, , Travel, Indications for Ultrasound and Screening for Aneuploidy Second Trimester Second Trimester: Signs and Symptoms of Labor, Selecting a care provider, Reproductive Life Planning & Contreception, Care Planning, Depression/Anxiety and Intimate Partner Violence; Discussed Tobacco Cessation Third Trimester Third Trimester: Pain Management Plans, Labor support person(s), Immediate Larc, Movement Monitoring, Signs and Symptoms of Preeclampsia and [place] Education ROS Const All systems reviewed & are unremarkable except as noted in H Resp Reports system reviewed and no additional complaints, except as documented and Denies cough GI Reports as per HPI Psych Reports system reviewed and no additional complaints, except as documented Exam Const General: cooperative, healthy appearing, comfortable and no acute distress Resp Effort & Inspection: normal respiratory effort Skin General: no rashes or lesions noted Psych Appearance: grossly normal Speech and Movement: speech and movement normal Coding Level of Care Code Off vis,est,level 4 Diagnoses Rh negative state in antepartum period O26.899; Z67.91 Chronic anemia D64.9 Anxiety F41.9 History of gestational hypertension Z87.59 H/O herpes genitalis Z86.19 Hx of shoulder dystocia in prior , currently O09.299 Supervision of high-risk O09.90 History of marijuana use F12.91 History of gestational diabetes mellitus (GDM) Z86.32 37 weeks gestation of Z3A.37 Weeks of gestation: 37 weeks 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 E06.3 Rectocele N81.6 Autoimmune thyroiditis E06.3 Migraine headache G43.909 Asthma J45.909 Missed O02.1 Assessment and Plan Assessment and Plan (1) Rh negative state in antepartum period: Status: Acute Comment: Rhogam @ 28wks (2) Chronic anemia: Status: Chronic Comment: Had reaction to iron infusions (3) Anxiety: Status: Acute Comment: H/O anxiety 1st (4) History of gestational hypertension: Status: Acute Comment: 1st (5) H/O herpes genitalis: Status: Acute Comment: plan valtrex around delivery (6) Hx of shoulder dystocia in prior , currently : Status: Acute Comment: 1st (7) Supervision of high-risk : Status: Acute Comment: , STARR 11/08/25, Kate Ma, Shawn (8) History of marijuana use: Status: Acute Comment: informed pt of tox screen initial & random (9) History of gestational diabetes mellitus (GDM): Status: Acute Comment: 2nd (10) : Status: Acute Qualifiers: Weeks of gestation: 37 weeks Qualified Code(s): Z3A.37 - 37 weeks gestation of Comment: discussed NIPT & Carrier testing- declined (11) 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: Status: Chronic (12) Rectocele: Status: Acute Comment: grade II (13) Autoimmune thyroiditis: Status: Acute (14) Migraine headache: Status: Acute (15) Asthma: Status: Acute Comment: allergy induced (16) Missed : Status: Acute Orders: Orders CBC W/Diff, Automated 03/26/25 O09.90 - Supervision of high risk , unspecified, unspecified trimester Type & Screen 03/26/25 O09.90 - Supervision of high risk , unspecified, unspecified trimester Culture, Urine 03/26/25 O09.90 - Supervision of high risk , unspecified, unspecified trimester Thyroid Stim Hormone (TSH) 03/26/25 O09.90 - Supervision of high risk , unspecified, unspecified trimester T4 Free Direct 03/26/25 O09.90 - Supervision of high risk , unspecified, unspecified trimester [facility] Misc. 03/26/25 Urine Drug Screen 03/26/25 F12.91 - Cannabis use, unspecified, in remission, O09.90 - Supervision of high risk , unspecified, unspecified trimester Hemoglobin A1c 03/26/25 O09.90 - Supervision of high risk , unspecified, unspecified trimester, Z86.32 - Personal history of gestational diabetes Celiac Disease Profile Today D64.9 - Anemia, unspecified Vitamin B12 Today D64.9 - Anemia, unspecified Ferritin Today D64.9 - Anemia, unspecified Iron+Iron Binding Capacity Today D64.9 - Anemia, unspecified Plan After discussing the patient's diagnosis and treatment plan options, patient wishes to proceed with surgical management. I have discussed with the patient the risks, benefits, and alternatives of the procedure which include but are not limited to risks of anesthesia, bleeding, infection, possible damage to bowel, bladder, or surrounding vasculature which could lead to additional surgery to evaluate any complications. Patient agrees to procedure and wishes to proceed. ACOG/uptodate references given for additional information regarding procedure. will plan for suction di&C. patient would like a bedside ultrasound prior to the D&C.
[2025-04-06] MEDS: Lactated Ringers 1,000 ML 15 ML IV (12:56)
[2025-04-06] MEDS: Doxycycline 100 MG CAPSULE PO (12:56)
[2025-04-06 12:59] LABS: Absolute Lymphocyte Count 1.61 X10^3/uL (0.83-4.51); Absolute Neutrophil Count 5.3 X10^3/uL (2.0-7.7); Basophil# 0.05 X10^3/uL; Basophil% 0.7 % (0-1); Eosinophil# 0.07 X10^3/uL; Eosinophils% 0.9 % (0-5); Hematocrit 31.7 % (37-47); Hemoglobin 10.9 g/dL (12.0-15.0); Lymphocyte # 1.61 X10^3/ul (0.83-4.51); Lymphocyte % 21.6 % (19-41); Mean Corp Hgb Conc 34.4 g/dL (32-36); Mean Corpuscular Hgb 28.5 pg (27.0-32.0); Mean Platelet Vol. 9.5 fl (6.2-12.0); Monocyte# 0.44 X10^3/uL; Monocyte% 5.9 % (0-10); NRBC Flagged by Analyzer 0 % (0-5); Neutrophil # 5.28 X10^3/uL (2.7-7.7); Neutrophil % 70.6 % (47-70); Platelet Count 251 K/mm3 (150-450); RBC Distribution Width SD 39.2 fl (35.1-43.9); Red Blood Count 3.82 M/mm3 (4.2-5.4); White Blood Count 7.5 K/mm3 (4.4-11.0)
--- NOTE | 2025-04-06 13:38 | PRE.ANES_ITS ---
ASA Classification* ASA Classification ASA Classification: 2 Assessment & Plan Anesthesia* Anesthesia Assessment Anesthesia Assessment: Discussed sedation and/or anesthesia options, risks, benefits, and alternatives with patient/parents/legal guardian/POA. Questions invited. The patient/parents/legal guardian/POA seems to understand and agrees to proceed with anesthesia plan. Reviewed the physical assessment, medical history, allergy history and patient home medications list prior to surgery/procedure/anesthetic and documented any changes. Performed airway and anesthesia risk assessments. Anesthesia Type Anesthesia Type: MAC History Source History Obtained from:: Patient and Chart Anesthesia Focused Assessment* Temperature: 98.6 F Pulse Rate: 80 Blood Pressure: 101/70 Respiratory Rate: 16 Pulse Ox: 100 Oxygen Delivery Method: Room Air Airway Assessment Mouth opens: >3 cm Mallampati Score: I Teeth Condition: Intact Neck Range of motion (ROM): Full ROM Labs Anesthesia Preop lab: CBC WBC 7.5 K/mm3 (4.4-11.0) 04/06/25 12:41 04/06/25 RBC 3.82 M/mm3 (4.2-5.4) L 04/06/25 12:41 04/06/25 Hgb 10.9 g/dL (12.0-15.0) L 04/06/25 12:41 5 Hct 31.7 % (37-47) L 04/06/25 12:41 04/06/25 Plt Count 251 K/mm3 (150-450) 04/06/25 12:41 04/06/25 CHEMISTRY Potassium 3.6 mmol/L (3.5-5.1) 09/16/23 16:03 09/16/23 Sodium 136 mmol/L (136-145) 09/16/23 16:03 09/16/23 BUN 9 mg/dL (7-18) 09/16/23 16:03 09/16/23 Creatinine 0.68 mg/dL (0.55-1.02) 12/18/23 18:10 12/18/23 Glucose 117 mg/dL (74-106) H 09/16/23 16:03 09/16/23 POC Glucose 94 mg/dL (74-106) 12/14/23 05:27 12/14/23 TSH 2.830 uIU/mL (0.300-4.200) 03/11/25 09:00 05/2 07/08 COAG PT 13.4 SECONDS (11.7-14.9) 11/27/23 20:45 Pre-Assessment Diagnosis/Proposed Procedure Planned Operative Procedure(s): d&c, suction Anesthesia History 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 When Was Last Pacemaker Check QUESTION #4 FULL TEXT: You/Your Family Experience fever (hyperthermia) with Anesthesia Last Oral Intake Last Oral intake: Last Oral Intake NPO since 22:30 04/06/25 12:51 Meds taken in AM with sips of Yes 04/06/25 12:51 water? Meds patient instructed to synthroid 04/06/25 12:51 take am of surgery Any additional information?: Yes Meds taken in AM with sips of water?: Yes PONV PONV - corporate executive chef: PONV - corporate executive chef Female Yes 04/05/25 15:18 HX of Motion Sickness Yes 04/05/25 15:18 HX of N/V After Surgery No 04/05/25 15:18 Non-Smoker Yes 04/05/25 15:18 Duration of Surgery greater No 04/05/25 15:18 than 60 minutes Number of Risk Factors 3 04/05/25 15:18 PONV Score Moderate Risk 04/05/25 15:18 Height & Weight Height & Weight: Anesthesia: Height & Weight Height 5 ft 3 in 04/06/25 12:51 Weight: 62 kg 04/06/25 12:51 Body Mass Index (BMI) 24.2 04/06/25 12:51 Respiratory Assessment Respiratory Assessment - corporate executive chef: Respiratory Tract Infection Hx - corporate executive chef Hx Respiratory Tract Infection No 04/05/25 15:18 STOP Sleep Apnea STOP Sleep Apnea - corporate executive chef: STOP Sleep Apnea - corporate executive chef Hx Hypertension No 04/05/25 15:18 Hx Sleep Apnea No 04/05/25 15:18 CPAP BIPAP Do you snore loudly (louder No 04/05/25 15:18 than talking or can be heard Do you often feel tired/ No 04/05/25 15:18 fatigued/ sleepy during daytime? Has anyone observed you stop No 04/05/25 15:18 breathing during sleep? STOP Results Negative 04/05/25 15:18 QUESTION #5 FULL TEXT : Do you snore loudly (louder than talking or can be heard through closed doors)? 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 Specify any problems Hx of Preganancy in last 3 N/A 04/05/25 15:18 Months Nurse Filling Out Transfusion NBUCHER 04/05/25 15:18 & Questions: Date: 04/05/25 04/05/25 15:18 Time: 15:19 04/05/25 15:18 Patient unable to answer at this time (ie. confused, unrespo /Reproduction History /Reproductive History - corporate executive chef: /Reproductive Hx- corporate executive chef Hx Now No 04/05/25 15:18 Gestational Age (in weeks): EDC: Hx Hx Para Hx Section SAB No 04/05/25 15:18 Active Medications Active Medications: Current Medications Generic Name Dose Route Start Last Admin Trade Name Freq PRN Reason Stop Dose Admin Doxycycline Monohydrate 100 mg 04/06/25 14:00 04/06/25 12:56 Doxycycline 100 Mg Capsule PO 04/06/25 14:01 100 mg PREOP ONE Administration Lactated Ringer's 1,000 mls @ 15 mls/hr 04/06/25 12:30 04/06/25 12:56 IV 15 mls/hr .Q48H WALT Administration PFSH Medical History (Updated 04/05/25 @ 15:22 by Evangelina Carlson) Hypothyroid Low iron Anemia Thyroid disease Vasovagal syncope History of echocardiogram Former smoker 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 Abnormal uterine bleeding Autoimmune thyroiditis Vaginal delivery Oligohydramnios Gestational diabetes mellitus (GDM) affecting , antepartum Abnormal glucose affecting Shoulder dystocia during labor and delivery Rh negative status during H/O herpes genitalis Home Medications ?Medication ?Instructions ?Recorded ?Last Taken ?Type multivit-min no.71-iron fum 28 1 cap PO DAILY 05/16/23 12/18/23 08:00 History mg-folate no.1 1 mg-dha 300 mg 1 cap capsule (PNV-[place]) levothyroxine 50 mcg tablet 50 mcg PO QDAY #90 tabs 04/06/25 Rx albuterol sulfate 90 mcg/actuation 2 puff inhalation Q 6H PRN 03/26/25 Unknown History aerosol inhaler (Ventolin HFA) shortness of breath or wheezing cholecalciferol (vitamin D3) 50 50 mcg PO QDAY 5 Unknown History mcg (2,000 unit) capsule Allergy/AdvReac Type Severity Reaction Status Date / Time Latex, Natural Rubber Allergy Mild Itching Verified 04/06/25 12:49 hydrocodone (From Vicodin) Allergy other Verified 04/06/25 12:49 hydromorphone (From Dilaudid) AdvReac Intermediate passed out Verified 04/06/25 12:49 Family History Grandmother Ovarian cancer, Onset Age: 70 Paternal great grandmother Colon cancer, Onset Age: 60 Paternal Surgical History History of throat surgery History of tonsillectomy [place] teeth extracted Social History adopted: No household members: spouse and children housing: house number of children: 2 current occupational status: unemployed current occupation: [employer] pets and animals: Yes pets and animals: dog(s) history of recent travel: No sexually active: Yes Smoking Status: Former smoker quit date: 03/15/21 pack-years: 4 Tobacco: How many years used: 2 Electronic Cigarette Use: with nicotine alcohol intake: current alcohol intake frequency: holidays/special occasions only details: not while substance use type: former substance user and marijuana well-balanced diet: daily or most days caffeine: No eating out: rarely or never during the past year weight has: decreased > 10 lbs what type of physical activity do you participate in: walking frequency: 1-2 times per week duration: 30-45 minutes/day stacey/samaritan: Advent seatbelt use: always do you feel safe at home: Yes additional social history: Shawn Shell Review of Systems (Anesthesia) ROS Narrative System reviewed and no additional complaints, except as documented.
[2025-04-06 13:44] LABS: Ferritin 14 ng/mL (22-378); Iron 61 ug/dL (50-170); Iron Binding Capacity,Total 406 ug/dL (250-450); Iron Binding Capacity,Unsat 345 ug/dL (228-428); Vitamin B12 465 pg/mL (180-914)
--- NOTE | 2025-04-06 14:00 | POC_PTH ---
PATIENT: JOHNY TORRES LOC: [facility] U#:[id number] AGE/SX: ROOM: RE04/06/[address]: Dr. Esme Baker MD : 2000 BED: DIS: 04/06/2025 SPEC #: [id number] RECD: 04/06/25 16:03 STATUS: ARIES ADDISON #: [id number] SANGEETA: 04/06/25 14:[address]: Esme Baker DEPT: SURGICAL PATHOLOGY RECD BY: Ferny Morrow ENTERED: 04/07/25 09:32 SP TYPE: PROD CONC OTHR DR: CURTIS Mena Tissues: A - Product of conception, NOS Procedures: Surgery Specimen Level IV HEADER OPERATION: Dilation and curettage, suction PRE-OP DIAGNOSIS: Missed TISSUE SUBMITTED: A- Products of conception MICROSCOPIC DIAGNOSIS A. Uterine contents, dilation and suction curettage: * Acutely inflamed and focally necrotic decidua, immature placental villi, and a few pieces of necrotic appearing soft tissue, consistent with products of conception from a missed MICROSCOPIC DESCRIPTION Slides are reviewed. GROSS DESCRIPTION A. Received in formalin labeled with the patient's name and date of . Designated as retained products of conception is an 8.0 x 7.7 x 2.0 cm aggregate of tabor-pink to red tissue fragments, mucoid material and clotted blood. Chorionic villi is identified. Horticultural Farm Manager sections are submitted in 1 cassette. UT 04/07/2025 CPT:48230
--- NOTE | 2025-04-06 14:42 | PCM.OPRPT ---
Procedures Urinary/Genital 52xxx-59xxx: [id number] Surg Trtmt missed Ab, 1TM Operative Report (Standard) Operative Information Date of Procedure: 04/06/25 Pre-Operative Diagnosis: see problem list comments Post-Operative Diagnosis: same Surgery/Procedure Performed: suction dilation and curettage inspector toys: No Type of Anesthesia: IV Sedation and Local RN Documented Start/Stop Times: Operation Date: 04/06/25 14:00 Case Time Into Pre-Op 04/06/25 12:16 Out of Pre-Op 04/06/25 14:23 Anesthesia Start 04/06/25 14:31 Into Room 04/06/25 14:31 Procedure Start Time: 14:31 Procedure Stop Time: 14:54 Select all DRAINS/GRAFTS/IMPLANTS that apply: None Estimated Blood Loss: 100 Specimen collected: Yes Description of specimen(s) removed: retained POC Description of surgery: Patient was taken to the operating room and placed under MAC local anesthesia. She was prepped and draped in the normal sterile fashion the dorsal lithotomy position. Bladder was drained of clear urine and anterior lip of the cervix was grasped and the uterus sounded to 12 cm. Cervix was progressively dilated to allow passage of a 12mm suction curette. Progressive passes were made removing the retained products of conception without complication. Sharp curettage confirmed complete removal of the retained products. All instruments were removed from the vagina and excellent hemostasis was noted and the patient was taken to recovery in stable condition. Surgical Findings: non viable iup 9 weeks Complications Complications: No
--- NOTE | 2025-04-06 14:43 | PCM.DC ---
Discharge Instructions Diet Discharge Diet: No restrictions DC O2, CPAP, BIPAP needs Home O2 Discharge instructions: No Dressing / Incision Discharge Activity: Return to Normal Activity, May Shower and May Take a Tub Bath (after 1 week) May resume sexual activity in: 1-2 weeks Weight Bearing Status: Weight bearing as tolerated Lifting Restrictions: none Dressing / Incision Call your doctor if you observe: Fever of 101 or Higher, Using more than 1 pad per hour, Shortness of breath and Uncontrolled pain Follow Up Care Please Follow Up With: Esme Baker MD When: Call [phone] to schedule appointment. Test Results: Test results from this visit will be discussed in further detail at your follow-up appointment, if applicable. Discharge Plan Admission Attending Provider: Esme Baker Primary Care Provider: Nicole Harrington Instructions Print Language: Kyrgyz Discharge Orders/Prescriptions Prescriptions: No Action PNV-[place] 28-1-300 mg capsule 1 cap PO DAILY cholecalciferol (vitamin D3) 50 mcg (2,000 unit) capsule 50 mcg PO QDAY albuterol sulfate [Ventolin HFA] 90 mcg/actuation HFA aerosol inhaler 2 puff inhalation Q6H PRN (Reason: shortness of breath or wheezing) levothyroxine 50 mcg tablet 50 mcg PO QDAY Qty: 90 3RF Referrals / Follow Up: Nicole Harrington PA [Primary Care Provider] - Disposition Disposition (needs filled in before D/C Order can be placed): Home, Self Care
[2025-04-06] MEDS: Lidocaine 1% (20 ml mdv) 20 ML Vial (14:45)
--- NOTE | 2025-04-06 15:05 | PCM.POST.ANE ---
Anesthesia: Postop Eval I Current Vital Signs Temperature: 97.6 F Pulse Rate: 71 Blood Pressure: 111/77 Respiratory Rate: 16 Pulse Ox: 98 Oxygen Delivery Method: Room Air Assessment Airway patent: Yes Spontaneous unlabored respirations: Yes Mental status: Awake and Calm nausea: No Vomiting: No Anesthesia Complication: No Fluid Hydration Crystalloid volume administer (ml): 500 Total IV fluid infused: 500 Progress Note Anesthesia document: Postop Eval 1 completed: Yes
--- NOTE | 2025-04-06 17:09 | SUR.PHASEII ---
pt walked to bathroom. thought she was going to pass out. returned to bed.
[2025-04-06 17:56] LABS: Hemoglobin A1c 5.2 % (<=5.6)
--- OUTSIDE RECORDS SUMMARY | 2025-04-06 22:07 | XMS RPT_ITS | CCD ---
Author Organization [facility] Care Team Providers Care Office Machines Wirer Name Role Phone MILADIS DOHERTY Admitting UnavailMILADIS John Attending Unavailabl e AA NO PCP, NO PCP Primary Care Unavailable Chrystal Alamo Unavailable Unavailable Chrystal Alamo Unavailable Unavailable Vianney Guerra Unavailable Unavailable Alexa Beyer Unavailable Unavailable Wallace Lion Unavailable Unavailable Chrystal Alamo Primary Care Provider Chrystal Alamo Unavailable Unavailable Unavailable Chrystal Alamo Unavailable Vianney Guerra Unavailable Ferny Rooney Unavailable Unavailable Paulino Christian Unavailable ZOIE ALAMO Attending ZOIE Chambers Referring ZOIE Chambers Primary Care Lacho Chawla, Ms. Kayleigh Peters Attending Cas Chawla, Ms. Kayleigh Peters Referring Unavail able ZOIE ALAMO Primary Care ZOIE Chambers Referring Yesivai ZOIE Flores Primary Care YesivaZOIE Mar Attending Lacho Santiago, Dr. Tayler Butcher Attending Sasha Santiago, Dr. Tayler Butcher Referring Unav ailZOIE Zyaas Primary Care Lacho Boyer, MsAgatha Marie Referring UnavailZOIE Bermudez Primary Care Lacho Boyer, MsAgatha Marie Attending Unavailabl e CALLY, PA-C CHRYSTAL B Referring Unavai va ALAMO, PA-C CHRYSTAL B Primary Care Unavai va ALAMO PAMarisolC CHRYSTAL B Attending Unavai labjulieta ALAMO PA-C CHRYSTAL B Attending Unavarozina ALAMO PA-C CHRYSTAL B Referring Unavai labjulieta ALAMO, PA-C CHRYSTAL B Primary Care Unavai lable Cally PA-C, Chrystal B Primary Care Provider Schlater PA-C, Chrystal B Unavailable Ms. Chrystal Alamo Primary Care Sasha Lancaster, MsAgatha Carrington Attending Unavailab julieta WrightSchlater PA, PA Chrystal Primary Care Provider Schlater PA, PA Chrystal Referring Provider Dr. Esme Baker Attending Provider [phone] Dr. Brandi Freeman Attending Provider [phone] OTF Torres Attending Provider [phone] Anson Richter Attending Provider Schlater PA, PA Chrystal Primary Care Provider Schlater PA, PA Chrystal Referring Provider Dr. Esme Baker Attending Provider [phone] Dr. Brandi Freeman Attending Provider [phone] OTF Torres Attending Provider Dr. Anson Richter Attending Provider [place] LITURGICAL MUSIC DIRECTOR, LITURGICAL MUSIC DIRECTOR-C Bethany Attending Provider [phone] Cally PA, PA Chrystal Primary Care Provider Cally PA, PA Chrystal Referring Provider [phone] Cally PA, PA Chrystal Primary Care Provider Cally PA, PA Chrystal Referring Provider [phone] Dr. Brandi Freeman Attending Provider Cally PA, PA Chrystal Primary Care Provider Cally PA, PA Chrystal Referring Provider OTF Torres Attending Provider Dr. sEme Baker Attending Provider Cally PA, PA Chrystal Primary Care Provider Schlater PA, PA Chrystal Referring Provider Dr. Brandi Freeman Referring Provider Dr. Brandi Freeman Other Provider Dr. Esme Baker Admit Provider Dr. Esme Baker Other Provider OTF Roach Attending Provider Fortune LITURGICAL MUSIC DIRECTOR, LITURGICAL MUSIC DIRECTOR-C Cee Attending Provider Cally PA, PA Chrystal Primary Care Provider Cally PA, PA Chrystal Referring Provider OTF Torres Attending Provider Dr. Brandi Freeman Attending Provider Dr. Esme Baker Attending Provider Dr. Brandi Freeman Referring Provider Dr. Brandi Freeman Other Provider Dr. Esme Baker Admit Provider Dr. Esme Baker Other Provider OTF Roach Attending Provider Fortune LITURGICAL MUSIC DIRECTOR, LITURGICAL MUSIC DIRECTOR-C Cee Attending Provider CALLY, CHRYSTAL B Primary Care Unavailable CALLY, CHRYSTAL B Primary Care Unavailable CALLY, CHRYSTAL B Primary Care Unavailable CALLY, CHRYSTAL B Primary Care Unavailable CALLY, CHRYSTAL B Primary Care Unavailable ROE ALLAN Attending Unavailable Schlater PA-C, Chrystal B Primary Care Provider Cally PA-C, Chrystal B Unavailable CALLY, CHRYSTAL [facility] Primary Care Unavaila LEVAR Unger Attending Unavailable Schlater PA-C, Chrystal B Primary Care Provider Cally PA-C, Chrystal B Unavailable Cally PA, Chrystal Primary Care Provider Dr. Anson Richter MD Attending Provider Dr. Anson Richter MD Referring Provider Cally ACEVEDO Chrystal Referring Provider Olivia ENGLISH, Dr. Victoria Attending Provider [phone] Dr. Esme Baker MD Referring Provider Cally PA, Chrystal Primary Care Provider Dr. Anson Richter MD Attending Provider CALLY, CHRYSTAL B Attending Unavailable CALLY, CHRYSTAL B Primary Care Unavailable CALLY, CHRYSTAL B Attending Unavailable CALLY, CHRYSTAL B Primary Care Unavailable Dr. Anson Richter MD Referring Provider Dr. Brandi Freeman DO Attending Provider Esme Baker Referring Unavailable Esme Baker Attending Unavailable Cally PA, Chrystal Primary Care Unavailabl e Esme Baker Referring Unavailable Esme Baker Attending Unavailable Cally PA, [place] Primary Care Unavailabl e Anson Richter Referring Unavailable Anson Richter Attending Unavailable Cally PA, [place] Primary Care UnavailEsme Shepard Referring Unavailable Esme Baker Attending Unavailable Cally PA, [place] Primary Care Unavailabl e Brandi Freeman Attending Unavailrubina e Brandi Freeman Referring Unavailabl e Schlater PA, [place] Primary Care Unavailabl e Anson Richter Attending Unavailable Anson Richter Referring Unavailable Cally PA, Chrystal Primary Care Unavailrubina e Esme Baker Attending Unavailable Cally PA, [place] Primary Care Unavailabl e Cally PA, Chrystal Referring Unavailabl e RoberAnson Attending Unavailable Cally PA, [place] Referring Unavailabl e Schlater PA, [place] Primary Care Unavailabl e Brandi Freeman Attending Unavailabl e Cally PA, Chrystal Referring Unavailabl e Cally PA, Benn[place] Primary Care Unavailabl e Esme Baker Consulting Unavailable Esme Baker Attending Unavailable Schlater PA, [place] Primary Care Unavailabl e Rober, Anson Attending Unavailable Rober, Anson Referring Unavailable Cally PA, [place] Primary Care Unavailabl e Rober, Anson Attending Unavailable Rober, Anson Referring Unavailable Schlater PA, [facility] Unavailabl e Bhavana Pacheco DO, Dr. Paz Referring Provider Olivia ENGLISH, Dr. Victoria Other Provider Allergies Allergy Classification Reported Allergen(s) Allergy Type Date of Onset Reaction(s) Facility Acetaminophen / HYDROcodone (12 sources) Acetaminophen / HYDROcodone; Translations: [Vicodin TABS] Drug Allergy [facility] [address] Work Phone: Latex (20 sources) Latex rubber gloves; Translations: [Latex Gloves] Substance Allergy [address] Work Phone: Opioid Agonists (20 sources) HYDROmorphone; Translations: [Dilaudid] Drug Allergy [facility] [address] Work Phone: (20 sources) Acetaminophen / HYDROcodone; Translations: [Vicodin TABS] Drug Allergy 1 [facility], Other [facility] Work Phone: (20 sources) HYDROcodone; Translations: [hydrocodone] Drug Allergy 3 [facility], Other [facility] Work Phone: Comment on above: it makes me pass ou t (20 sources) HYDROmorphone; Translations: [Dilaudid] Drug Allergy [facility] Work Phone: (20 sources) HYDROmorphone; Translations: [HYDROMORPHONE] Drug Allergy 1 [facility], Other [facility] (20 sources) Latex rubber gloves; Translations: [Latex Gloves] Allergy to drug (finding) [facility] [address] Work Phone: (20 sources) natural latex rubber; Translations: [LATEX] Allergy to substance (finding) 3 [facility] (8 sources) guaiFENesin / HYDROcodone Drug Allergy [address] [facility] (7 sources) Latex Allergy to substance 3 [facility] Work Phone: (17 sources) natural latex rubber Allergy to substance 3 Itching [facility] Comment on above: redness (4 sources) Acetaminophen Drug Allergy 4 other [facility] (5 sources) Acetaminophen / HYDROcodone; Translations: [HYDROCODONE-ACET AMINOPHEN] Drug Allergy 3 [facility] (3 sources) HYDROCODONE-GUAIF ENESIN; Translations: [HYDROCODONE-GUAI FENESIN] Propensity to adverse reactions to drug (disorder) 3 [facility] (1 source) Acetaminophen Drug Allergy 4 [facility] (1 source) HYDROmorphone Drug Allergy 5 [facility] (1 source) natural latex rubber Drug allergy (disorder) 5 [facility] Repository Medications Current Medications Medication Drug Class(es) [...] PRN 90 tablet 2 02/08/2023 03/10/2023 Active Start: 09-20-2021 take 1 tablet by lizzette three times daily Acyclovir 400 MG Oral Tablet TAKE 1 TABLET 3 times daily Quantity: 90 Refills: 4 Ordered: 20-Sep-2021 Paulino Christian DO Start : 20-Sep-2021 Active take 1 capsule by mo [facility] twice daily acyclovir 200 mg oral capsule ; 1 cap(s) orally 2 times a day Quantity: 0 Refills: 0 Ordered: 20-Sep-2021 Selina Lacey Status: Discontinued Generic Substitution Allowed [id number] 200 actuat albuterol 0.09 mg/actuat metered dose inhaler (13 sources) beta2-Adrenergic Agonist Start: 03-26-2025 Albut ezio Sulfate (Ventolin Hfa) 90 mcg/actuation HFA aerosol inhaler Active 2 NMA INHALATION EVERY 6 HOURS as needed for shortness of breath or wheezing March 26, 2025 12:00am Start: 01-30-2023 End: 01-30-2024 take 2 puff(s) by inhalation every four hours for wheezing albuterol (Ventolin HFA) 90 mcg/actuation inhaler Indications: Moderate persistent asthma without complication ([facility]) Inhale 2 puffs every 4 hours if needed for wheezing or shortness of breath. 18 g 3 01/30/2023 Active Start: 12-29-2021 take 1-2 puff(s) by inhalation every six hours as needed Albuterol Sulfate HFA 108 (90 Base) MCG/ACT Inhalation Aerosol Solution INHALE 1 TO 2 PUFFS EVERY 6 HOURS NEEDED. Quantity: 1 Refills: 1 Ordered: 29-Dec-2021 Kayleigh Seth Start : 29-Dec-2021 Active alpha-tocopherol acetate 30 unt / ascorbic acid 100 mg / beta carotene 1000 unt / calcium carbonate 200 mg / calcium pantothenate 7 mg / cholecalciferol 400 unt / docusate sodium 25 mg / ferrous fumarate 29 mg / folic acid 1 mg / niacinamide 15 mg / pyridoxine hydrochloride 20 mg / riboflavin 3 mg / thiamine 3 mg / vitamin b12 0.012 mg / zinc oxide 20 mg oral tablet (1 source) Vitamin B12, Vitamin D, Vitamin C Start: 09-22-2021 take 1 tablet by mouth once daily Multivitamins with Folic Acid 1 mg oral tablet ; 1 tab(s) orally once a day Quantity: 0 Refills: 0 Ordered: 22-Sep-2021 Ash Tara Start: 22-Sep-2021 Generic Substitution Allowed amoxicillin 500 mg oral capsule (7 sources) Penicillin-class Antibacterial Start: 10-18-2023 End: 10-25-2023 take 1 capsule by mouth every twelve hours amoxicillin (Amoxil) 500 mg capsule Indications: Acute non-recurrent maxillary sinusitis Take 1 capsule (500 mg) by mouth every 12 hours for 7 days. 14 capsule 0 10/18/2023 10/25/2023 Active Start: 01-30-2023 End: 02-08-2023 take 1 capsule by mouth in the morning amoxicillin (Amoxil) 500 mg capsule Indications: Asthmatic bronchitis without complication, unspecified asthma severity, unspecified whether persistent Take 1 capsule (500 mg) by mouth in the morning and 1 capsule (500 mg) before bedtime. Do all this for 7 days. 14 capsule 0 01/30/2023 02/08/2023 Discontinued (Therapy completed) Start: 12-29-2021 End: 01-12-2022 take 2 tablets by mouth every eight hours Amoxicillin 500 MG Oral Tablet TAKE 2 TABLET Every 8 hours Quantity: 42 Refills: 0 Ordered: 29-Dec-2021 Anniemilli JANINAKayleigh Start : 29-Dec-2021 End : 12-Jan-2022 Complete Start: 12-29-2021 take 2 capsules by m outh every eight hours Amoxicillin 500 MG Oral Capsule TAKE 2 CAPSULES BY MOUTH EVERY 8 HOURS Quantity: 42 Refills: 0 Ordered: 29-Dec-2021 DO Start : 29-Dec-2021 Complete Blood-Glucose Meter (6 sources) Start: 10-25-2023 Blood-Glucose Meter Active 0 .MEDSUPPLY October 25, 2023 1:00am As directed- Test fasting and 2 hours after meals Start: 10-25-2023 Blood-Glucose Meter Active 0 .MEDSUPPLY October 25, 2023 12:00am As directed- Test fasting and 2 hours after meals cholecalciferol 0.05 mg oral capsule (3 sources) Vitamin D Start: 03-26-2025 take 1 capsule by mouth once daily Cholecalciferol (Vitamin D3) 50 mcg (2,000 unit) capsule Active 50 ug PO daily March 26, 2025 12:00am take 1 tablet by mouth once felipe y cholecalciferol (Vitamin D3) 25 mcg (1000 units) tablet Take 1 tablet (1,000 Units) by mouth once daily. Active COVID-19 antigen test (COVID-19 At-Home Test) kit (1 source) Start: 10-18-2023 End: 10-18-2023 COVID-19 antigen test (COVID-19 At-Home Test) kit Indications: Nasal congestion 1 each 1 time for 1 dose. 2 each 1 10/18/2023 10/18/2023 Active estradiol 0.1 mg/ml vaginal cream (11 sources) Estrogen Start: 03-05-2022 estradiol (Est race) 0.01 % (0.1 mg/gram) vaginal cream Insert 2 g into the vagina 3 (three) times a week. 0 03/05/2022 Active Start: 03-05-2022 estradiol (Est race) 0.01 % (0.1 mg/gram) vaginal cream Insert 20 Applications into the vagina 3 (three) times a week. 0 03/05/2022 Active ferrous gluconate 324 mg oral tablet (1 source) take 1 tablet by mouth once daily at breakfast ferrous gluconate (Fergon) 324 (38 Fe) mg tablet Take 1 tablet (38 mg of iron) by mouth once daily with breakfast. Active ibuprofen 600 mg oral tablet (2 sources) Nonsteroidal Anti-inflammatory Drug Start: take 1 tablet by mouth three times daily as needed for pain ibuprofen 600 mg tablet Indications: Acute pain of right shoulder , Acute right-sided thoracic back pain Take 1 tablet (600 mg) by mouth 3 times a day as needed for mild pain (1 - 3) (pain). 30 tablet 01/05/2025 Active Start: 11-08-2021 take 1 tablet by lizzette th every six hours ibuprofen 600 mg oral tablet ; 1 tab(s) orally every 6 hours Quantity: 40 Refills: 0 Ordered: 08-Nov-2021 Paulino Christian Start: 08-Nov-2021 Generic Substitution Allowed methylPREDNISolone (1 source) Corticosteroid Start: 01-05-2025 End: 01-11-2025 methylPREDNISolone (Medrol Dospak) 4 mg tablets Indications: Acute pain of right shoulder , Acute right-sided thoracic back pain Take as directed on package. 21 tablet 01/05/2025 01/11/2025 Active Mv-Mins 37-Bydz-Yhdlh No.1-Dha (Pnv-[place]) 28-1-300 mg capsule (17 sources) Start: 05-16-2023 Mv-Mins 71-Iro n-Folic No.1-Dha (Pnv-[place]) 28-1-300 mg capsule Active 1 NMA PO DAILY May 16, 2023 12:00am Start: 05-16-2023 take 1 capsule by mo uth once daily Mv-Mins 20-Uoqe-Hvusg No.1-Dha (Pnv-[place]) 28-1-300 mg capsule Active 1 CAP PO DAILY May 16, 2023 12:00am Start: 05-16-2023 take 1 capsule by mo uth once daily Mv-Mins 49-Tsyv-Bahzo No.1-Dha (Pnv[place]) 28-1-300 mg capsule Active 1 CAP PO DAILY May 15, 2023 11:00pm Start: 05-16-2023 take 1 capsule by mouth once M v-Mins 48-Bhon-Xzfyt No.1-Dha ([place]nv-[place]) 28-1-300 mg capsule Active CAP PO May 15, 2023 11:00pm Start: 05-16-2023 take 1 capsule by mouth once M v-Mins 31-Aftw-Pqawh No.1-Dha (Pnv-[place]) 28-1-300 mg capsule Active CAP PO May 16, 2023 12:00am no115/iron/folic ac id ( 19 ORAL) (4 sources) no115/i mireille/folic acid ( 19 ORAL) Take by mouth. Active no115/i mireille/folic acid ( 19 ORAL) Take by mouth. 0 Active Completed/Discontinued Medications Medication Drug Class(es) Dates [...] tablet 0 03/14/2023 03/20/2023 Discontinued (Therapy completed) aspirin 81 mg delayed release oral tablet (19 sources) Platelet Aggregation Inhibitor, Nonsteroidal Anti-inflammatory Drug Start: 08-08-2023 End: 11-24-2024 take 1 tablet by mouth once daily Aspirin 81 mg tablet,delayed release (DR/EC) Discontinued 81 mg PO DAILY August 08, 2023 12:00am December 18, 2023 7:03pm azithromycin 250 mg oral tablet (1 source) Macrolide Antimicrobial Start: 12-29-2021 Azithromycin 250 MG Oral Tablet TAKE 2 TABLETS by mouth today, THEN take 1 TABLET once a day FOR the next 4 DAYS. Quantity: 6 Refills: 0 Ordered: 29-Dec-2021 DO Start : 29-Dec-2021 Complete bifidobacterium animalis [id number] unt / lactobacillus acidophilus [id number] unt oral capsule (20 sources) End: 10-18-2023 take 1 capsule by mouth once daily L. acidophilus/Bifid . animalis 32 billion cell capsule Take 1 capsule by mouth once daily. 0 10/18/2023 Discontinued (Therapy completed) Probiotic CAPS Q uantity: 0 Refills: 0 Ordered: 19-Dec-2021 DO Active Blood-Glucose Meter misc (6 sources) Start: 10-25-2023 End: 12-22-2024 Blood-Glucose Meter misc Discontinued 0 .MEDSUPPLY 1 October 25, 2023 1:00am December 22, 2024 9:36am As directed- Test fasting and 2 hours after meals 60 actuat budesonide 0.08 mg/actuat / formoterol fumarate 0.0045 mg/actuat metered dose inhaler (7 sources) Corticosteroid , beta2-Adrenerg ic Agonist Start: 01-24-2022 take 1 puff(s) by inhalation twice daily Budesonide-Formoter ol Fumarate 80-4.5 MCG/ACT Inhalation Aerosol INHALE 1 [...] Quantity: 90 Refills: 1 Ordered: 16-Feb-2021 Chrystal Alamo PA-C Start : 16-Feb-2021 Active Blanka 0.35 MG Oral Tablet (11 sources) Start: 01-24-2022 take 1 tablet by mouth once daily Blanka 0.35 MG Oral Tablet TAKE 1 TABLET DAILY. Quantity: 1 Refills: 11 Ordered: 24-Jan-2022 yz-[id number]-Freqn DO, Brett Start : 24-Jan-2022 Active Start: 01-24-2022 take 1 tablet by lizzette th once daily Blanka 0.35 MG Oral Tablet TAKE 1 TABLET DAILY. Quantity: 1 Refills: 11 Ordered: 24-Jan-2022 Paulino Christian DO Start : 24-Jan-2022 Active citalopram 20 mg oral tablet (3 sources) Serotonin Reuptake Inhibitor Start: 02-16-2021 take 1 tablet by mouth once daily Citalopram Hydrobromide 20 MG Oral Tablet TAKE 1 TABLET DAILY. Quantity: 30 Refills: 5 Ordered: 16-Feb-2021 Chrystal Alamo PA-C Start : 16-Feb-2021 Active Start: 09-08-2019 take 1 tablet by lizzette th once daily Citalopram Hydrobromide 40 MG Oral Tablet take 1 tablet by mouth once daily Quantity: 30 Refills: 5 Chrystal Alamo PA-C Start : 08-Sep-2019 Active dexamethasone 1 mg/ml / neomycin 3.5 mg/ml / polymyxin b [id number] unt/ml ophthalmic suspension (1 source) Aminoglycoside Antibacterial, Polymyxin-class Antibacterial, Corticosteroid Start: 11-22-2020 take 2 drop(s) into the eye(s) four times daily Iuoyaxwy-Bdsfdoanj-Qhkiydqh [id number] Ophthalmic Suspension INSTILL 2 DROPS INTO LEFT EYE 4 TIMES DAILY X 7 DAYS Quantity: 1 Refills: 0 Alexa Redd Start : 22-Nov-2020 Active 5 ML Bottle docusate sodium 100 mg oral tablet (17 sources) Start: 12-19-2021 take 2 tablets by mouth twice daily Docusate Sodium 100 MG Oral Tablet Take 2 tabs BID. Quantity: 120 Refills: 6 Ordered: 8-Mar-2022 Paulino Decker DO Start : 19-Dec-2021 Active Start: 09-08-2019 take 1 capsule by mo [facility] twice daily as needed Colace 100 MG Oral Capsule TAKE 1 CAPSULE TWICE DAILY NEEDED. Refills: 0 DO Start : 08-Sep-2019 Active Mxq-Hf-Tkfnnybyk 0.18/0.215/0.25 MG-25 MCG Oral Tablet (3 sources) Progestin, Estrogen Start: 09-08-2019 take 1 tablet by mouth once daily Pid-Td-Nqfrvqfta 0.18/0.215/0.25 MG-25 MCG Oral Tablet TAKE 1 TABLET DAILY. Quantity: 1 Refills: 11 Cally LINOChrystal Start : 08-Sep-2019 Active 28 Tablet Pack take 1 tablet by [facility] once daily norgestimate-ethinyl estradiol triphasic (0.18 mg-0.215 mg-0.250 mg)-25 mcg oral tablet ; 1 tab(s) orally once a day Quantity: 0 Refills: 0 Ordered: 11-Oct-2019 Rita Hallman Status: Other Generic Substitution Allowed Comments: Source=Surescripts, Medication=NORGEST/ETHI TAB ESTRADIO, OriginatingSource=[facility], OriginatingProvider=, , Duration=28, Quantity=28, Date Last Modified/Filled=25-Sep-2019 Comment on above: Source=Surescripts, Medication=NORGEST/E THI TAB ESTRADIO, [facility]inating[facility], OriginatingProvider=, , Duration=28, Quantity=28, Date Last Modified/Filled=25-Sep-2019 ferrous sulfate 325 mg oral tablet (20 sources) Start: End: take 1 tablet by mouth once daily Ferrous Sulfate (Ferosul) 325 mg (65 mg iron) tablet Discontinued 325 mg PO DAILY October 16, 2023 1:00am December 18, 2023 7:03pm Start: 03-20-2023 End: 03-19-2024 take 1 tablet by mouth once daily at mealtime ferrous sulfate 325 (65 Fe) MG EC tablet Indications: Iron deficiency anemia, unspecified iron deficiency anemia type Take 1 tablet (65 mg) by mouth once daily with a meal. Do not crush, chew, or split. 90 tablet 3 03/20/2023 03/19/2024 Active Start: 08-21-2021 End: 01-12-2022 take 1 tablet by mouth every other day Ferrous Sulfate 325 (65 Fe) MG Oral Tablet TAKE 1 TABLET EVERY OTHER DAY Quantity: 15 Refills: 5 Ordered: 21-Aug-2021 Paulino Christian DO Start : 21-Aug-2021 End : 12-Jan-2022 Complete Start: 09-08-2019 take 1 tablet by lizzette twice daily Ferrous Sulfate 325 (65 Fe) MG Oral Tablet TAKE 1 TABLET TWICE DAILY. Quantity: 60 Refills: 5 Chrystal Alamo PA-C Start : 08-Sep-2019 Active take 1 tablet by lizzette once daily ferrous sulfate (as elemental iron) 45 mg oral tablet, extended release ; 1 tab(s) orally once a day Quantity: 0 Refills: 0 Ordered: 20-Sep-2021 Selina Lacey Generic Substitution Allowed Flash Glucose Scanning Reade r (Freestyle Sanjay 2 [place]) misc (11 sources) Start: 10-30-2023 End: 12-22-2024 Flash Glucose Scanning Reade r (Freestyle Sanjay 2 [place]) misc Discontinued 0 .Route 1 October 30, 2023 1:00am December 22, 2024 9:36am As directed Start: 10-30-2023 Flash Glucose Scanning [place] (Freestyle Sanjay 2 [place]) misc Active 0 .Route 1 October 30, 2023 1:00am As directed Start: 10-30-2023 Flash Glucose Scanning [place] (Freestyle Sanjay 2 [place]) misc Active 0 .Route 1 October 30, 2023 12:00am As directed Flash Glucose Sensor (Freest yle Sanjay 2 Sensor) kit (11 sources) Start: 10-30-2023 End: 12-22-2024 Flash Glucose Sensor (Freest yle Sanjay 2 Sensor) kit Discontinued 0 .Route October 30, 2023 1:00am December 22, 2024 9:36am As directed Start: 10-30-2023 Flash Glucose Sensor (Freestyle Sanjay 2 Sensor) kit Active 0 .Route 1 October 30, 2023 1:00am As directed Start: 10-30-2023 Flash Glucose Sensor (Freestyle Sanjay 2 Sensor) kit Active 0 .Route 1 October 30, 2023 12:00am As directed hydrocortisone acetate 25 mg rectal suppository (1 source) Corticosteroid Start: 09-08-2019 Anucort-HC 25 MG Rectal Suppository INSERT 1 SUPPOSITORY RECTALLY AT BEDTIME NEEDED. Refills: 0 DO Start : 08-Sep-2019 Active hydrOXYzine hydrochloride 10 mg oral tablet (1 source) Antihistamine Start: 10-29-2019 take 1 tablet by mouth three times daily as needed hydrOXYzine HCl - 10 MG Oral Tablet TAKE 1 TABLET 3 TIMES DAILY NEEDED. Quantity: 90 Refills: 2 Chrystal Alamo PA-C Start : 29-Oct-2019 Active iohexol (OMNIPAQUE) 350 MG/ML injection 75 mL (1 source) Start: 10-31-2020 End: 10-31-2020 iohexol (OMNIPAQUE) 350 MG/ML injection 75 mL levothyroxine sodium 0.05 mg oral tablet (15 sources) l-Thyroxine Start: 07-12-2024 End: 03-11-2025 take 1 tablet by mouth once daily Levothyroxine 50 mcg tablet Discontinued 50 ug PO daily January 11, 2025 5:10pm March 11, 2025 3:01pm loratadine 10 mg oral tablet (7 sources) Start: 02-13-2022 take 1 tablet by mouth once daily as needed Loratadine 10 MG Oral Tablet TAKE 1 TABLET DAILY prn allergies Quantity: 30 Refills: 2 Ordered: 13-Feb-2022 Chrystal Alamo PA-C Start : 13-Feb-2022 Active nitrofurantoin, macrocrystals 100 mg oral capsule (1 source) Nitrofuran Antibacterial Start: 06-16-2024 End: 11-24-2024 nitrofurantoin (Macrodantin) 100 mg capsule TAKE 1 CAPSULE BY MOUTH TWICE DAILY for 3, 5 or 7 days 06/16/2024 11/24/2024 Discontinued (Therapy completed) predniSONE 10 mg oral tablet (7 sources) Start: 01-30-2023 End: 03-14-2023 take 3 tablets by mouth once daily predniSONE (Deltasone) 10 mg tablet Indications: Pleurisy Take 3 tablets (30 mg) by mouth once daily. 15 tablet 0 01/30/2023 03/14/2023 Discontinued (Therapy completed) Start: 12-29-2021 End: 01-12-2022 take 1 tablet by mouth once daily predniSONE 20 MG Oral Tablet TAKE 1 TABLET DAILY DIRECTED. Quantity: 7 Refills: 0 Ordered: 29-Dec-2021 Kayleigh Seth Start : 29-Dec-2021 End : 12-Jan-2022 Complete Start: 12-29-2021 predniSONE 10 MG Oral Tablet TAKE 6 TABS ON DAY 1, TAKE 5 TABS ON DAY 2, TAKE 4 TABS ON DAY 3, TAKE 3 TABS ON DAY 4, TAKE 2 TABS ON DAY 5, THEN TAKE 1 TAB ON DAY 6. WITH FOOD Quantity: 21 Refills: 0 Ordered: 29-Dec-2021 DO Start : 29-Dec-2021 Complete TABS (20 sources) TABS Ta ke 1 tablet daily Quantity: 0 Refills: 0 Ordered: 29-Dec-2021 DO Active TABS Qu antity: 0 Refills: 0 Ordered: 03-Apr-2021 DO Active vitamin #49-iron-FA (Mini ) 6.75 mg iron- 200 mcg tablet (2 sources) End: 03-14-2023 take 1 tablet by mouth once daily vitamin #49-iron-FA (Mini ) 6.75 mg iron- 200 mcg tablet Take 1 tablet by mouth once daily. 0 03/14/2023 Discontinued (Therapy completed) take 1 tablet by mouth once felipe y vitamin #49-iron-FA (Mini ) 6.75 mg iron- 200 mcg tablet Take 1 tablet by mouth once daily. 0 Active 250 ml sodium chloride 9 mg/ ml injection (2 sources) Start: 10-31-2020 End: 10-31-2020 sodium chloride 0.9% IV solution 75 mL Start: 10-31-2020 End: 10-31-2020 sodium chloride 0.9% IV solu tion 1,000 mL Stool Softener TABS (1 source) Stool Softener T ABS Quantity: 0 Refills: 0 Ordered: 19-Dec-2021 DO Active sulfamethoxazole 800 mg / trimethoprim 160 mg oral tablet (1 source) Dihydrofolate Reductase Inhibitor Antibacterial, Sulfonamide Antimicrobial Start: 10-11-20 End: 01-07-20 20 take 1 tablet by mouth every twelve hours Bactrim DS 800 mg-160 mg oral tablet ; 1 tab(s) orally every 12 hours Quantity: 20 Refills: 0 Ordered: 11-Oct-2019 Caity Norton Start: 11-Oct-2019 End: 20-Oct-2019 Status: Other Generic Substitution Allowed Comments: Avoid prolonged or excessive exposure to direct and/or artificial sunlight while taking this medication.Finish all this medication unless otherwise directed by prescriber.Medicati on should be taken with plenty of water. Comment on above: Avoid prolonged or e xcessive exposure to direct and/or artificial sunlight while taking this medication.Finish all this medication unless otherwise directed by prescriber.Medication should be taken with plenty of water. Num-Mn-Buwklwozy 0.18/0.215/0.25 MG-25 MCG Oral Tablet (5 sources) Start: 09-08-20 19 take 1 tablet by mouth once daily Ibe-Af-Hrduqsqfo 0.18/0.215/0.25 MG-25 MCG Oral Tablet TAKE 1 TABLET DAILY. Quantity: 1 Refills: 11 Ordered: 19-Dec-2021 Braden LOPEZPaulino Start : 08-Sep-2019 Active valACYclovir 500 mg oral tablet (10 sources) Herpesvirus Nucleoside Analog DNA Polymerase Inhibitor, Herpes Simplex Virus Nucleoside Analog DNA Polymerase Inhibitor, Herpes Zoster Virus Nucleoside Analog DNA Polymerase Inhibitor Start: 12-03-19 End: 11-24-19 25 take 1 tablet by mouth once daily Valacyclovir 500 mg tablet Discontinued 500 mg PO daily December 03, 2023 1:00am December 18, 2023 7:04pm NEGATED: Highlighted row has not occurred!No Current Medications (1 source) No Current Medications Problems Active Problems Problem Classification Problem Date Documented Da te Episodic/Chronic Administrative/social admission (4 sources) Patient encounter status; Translations: [Health examination of defined subpopulations] Episodic Anxiety disorders (20 sources) Mixed anxiety and depressive disorder; Translations: [Dysthymic disorder] Onset: 3 01-30-2023 Chronic Comment on above: H/O anxie ty 1st Asthma (20 sources) Uncomplicated moderate persistent asthma; Translations: [Asthma, unspecified type, unspecified] Onset: 3 01-30-2023 Chronic Comment on above: allergy induced Cardiac dysrhythmias (20 sources) Palpitations; Translations: [Palpitations] Episodic Deficiency and other anemia (2 sources) Anemia due to blood loss; Translations: [Iron deficiency anemia secondary to blood loss (chronic)] 11-08-2021 Chronic Deficiency and other anemia (20 sources) Anemia; Translations: [Anemia, unspecified] Episodic Deficiency and other anemia (20 sources) Iron deficiency anemia; Translations: [Iron deficiency anemia, unspecified] Onset: 3 01-30-2023 Episodic Deficiency and other anemia (4 sources) Chronic anemia; Translations: [Anemia, unspecified] 03-26-2025 Episodic Comment on above: Had reaction to iron infusions Deficiency and other anemia (2 sources) Anemia, unspecified; Translations: [Anemia, unspecified] Onset: 5 Episodic Diabetes mellitus without complication (5 sources) Abnormal glucose tolerance test; Translations: [Impaired glucose tolerance test (oral)] Episodic Diabetes or abnormal glucose tolerance complicating ; childbirth; or the puerperium (20 sources) Abnormal glucose level; Translations: [Abnormal glucose complicating ] Onset: 5 10-25-2023 Episodic Comment on above: 3 hour gct test 4x daily and br ing log to next appt 2nd Fetopelvic disproportion; obstruction (1 source) Obstructed labor due to shoulder dystocia; Translations: [Shoulder (girdle) dystocia, delivered, with or without mention of antepartum condition] Onset: 2 11-08-2021 Episodic Genitourinary symptoms and ill-defined conditions (20 sources) Increased frequency of urination; Translations: [Urinary frequency] Onset: 4 09-17-2023 Episodic Comment on above: 1st . State s not dx pre E but had elevated BP in labor/no meds and proteinuria. baseline labs normal Headache; including migraine (20 sources) Refractory migraine without aura; Translations: [Migraine without aura, with intractable migraine, so stated, with status migrainosus] Onset: 3 01-30-2023 Chronic Immunizations and screening for infectious disease (20 sources) Contact with and (suspected) exposure to other viral communicable diseases; Translations: [Patient encounter status] Onset: 9 Episodic Menopausal disorders (8 sources) Atrophic vaginitis; Translations: [Postmenopausal atrophic vaginitis] Chronic Menstrual disorders (7 sources) Menorrhagia; Translations: [Excessive or frequent menstruation] Chronic Mood disorders (16 sources) Mild major depression, single episode; Translations: [Major depressive affective disorder, single episode, mild] Onset: 3 01-30-2023 Chronic Nausea and vomiting (1 source) Vomiting, unspecified; Translations: [VOMITING UNSPECIFIED] Onset: 9 Noninfectious gastroenteritis (4 sources) Noninfective gastroenteritis and colitis, unspecified; Translations: [Noninfective gastroenteritis and colitis, unspecified] Onset: 5 Episodic Nonspecific chest pain (20 sources) Atypical chest pain; Translations: [Other chest pain] Episodic Nutritional deficiencies (3 sources) Vitamin D deficiency; Translations: [Vitamin D deficiency, unspecified] Onset: 5 01-05-2025 Chronic OB-related trauma to perineum and vulva (2 sources) Second degree perineal laceration during delivery 11-08-2021 Episodic Other aftercare (1 source) 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; Translations: [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 CURRENT DRUG THERAPY] Onset: 9 Episodic Other complications of ; puerperium affecting management of mother (3 sources) ultrasound scan abnormal; Translations: [Abnormal finding on screening] Episodic Other complications of ; puerperium affecting management of mother (1 source) Other disorders of breast associated with and the puerperium; Translations: [Other and unspecified disorder of breast associated with childbirth, condition or complication] 01-02-2024 Episodic Other complications of (15 sources) Anemia of ; Translations: [Anemia complicating , unspecified trimester] 09-17-2023 Chronic Comment on above: got iron infusion an d had infusion reaction of fever, (102) chills, and muscle aches. Other complications of (20 sources) Anemia complicating , unspecified trimester; Translations: [Anemia of mother, unspecified as to episode of care or not applicable] 10-17-2023 Chronic Other complications of (20 sources) RhD negative; Translations: [Other specified complications of , antepartum condition or complication] Resolved: 2 05-16-2023 Episodic Comment on above: rhogam @ 28 wks & Pr n bleeding Rhogam @ 28wks Other complications of (11 sources) Swelling of lower limb; Translations: [Edema or excessive weight gain in , without mention of hypertension, antepartum condition or complication] Episodic Other complications of (20 sources) High risk ; Translations: [Supervision of high risk , unspecified, unspecified trimester] 05-16-2023 Episodic Comment on above: [id number], STARR 01/02/24 PC Tye, Shawn , STARR 11/08/25, P C Tye,Ellia, Shawn Other complications of (17 sources) History of premature labor; Translations: [Supervision of with history of pre-term labor, unspecified trimester] 05-27-2023 Episodic Other complications of (20 sources) History of shoulder dystocia; Translations: [Supervision of with other poor reproductive or obstetric history, unspecified trimester] 05-27-2023 Episodic Comment on above: discussed primary LT CS next delivery vs , patient prefers if able. EFW almost 2 lbs less than previous, plan trial of labor. had 90lb weight gain, preeclampsia, discussed healthy weight gain and recommend growth US in third trimester, nl 36 wk growth US and consider IOL 39 weeks. 1st Other complications of (20 sources) Supervision of with other poor reproductive or obstetric history, unspecified trimester; Translations: [ with other poor obstetric history] Onset: 5 05-27-2023 Episodic Other complications of (20 sources) Other specified related conditions, unspecified trimester; Translations: [Other specified complications of , antepartum condition or complication] Onset: 5 05-27-2023 Episodic Other complications of (20 sources) Supervision of high risk , unspecified, unspecified trimester; Translations: [Supervision of unspecified high-risk ] Onset: 5 05-27-2023 Episodic Other complications of (3 sources) Supervision of with history of pre-term labor, unspecified trimester; Translations: [ with history of pre-term labor] 05-27-2023 Episodic Other complications of (9 sources) Traumatic injury during ; Translations: [Injury, poisoning and certain other consequences of external causes complicating , unspecified trimester] 12-05-2023 Episodic Comment on above: hit by football in a bdomen- abruption labs normal. 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 Other female genital disorders (1 source) Abnormal uterine and vaginal bleeding, unspecified; Translations: [Abnormal uterine and vaginal bleeding, unspecified] Onset: 5 Chronic Other female genital disorders (8 sources) Vaginal [...] of other infectious and parasitic diseases] Episodic Comment on above: 1 & 2; Other infections; including parasitic (19 sources) History of sexually transmitted disease; Translations: [Personal history of other infectious and parasitic diseases] 05-27-2023 Episodic Comment on above: plan valtrex around delivery Other infections; including parasitic (20 sources) Personal history of other infectious and parasitic diseases; Translations: [Personal history of other infectious and parasitic diseases] Onset: 5 05-27-2023 Episodic Other lower respiratory disease (20 sources) Dyspnea; Translations: [Shortness of breath] Episodic Other lower respiratory disease (16 sources) Persistent cough; Translations: [Cough] Episodic Other lower respiratory disease (16 sources) Wheezing; Translations: [Wheezing] Episodic Other lower respiratory disease (16 sources) Acute respiratory infections; Translations: [Other diseases of respiratory system, not elsewhere classified] Episodic Other lower respiratory disease (13 sources) Dyspnea on exertion; Translations: [Other respiratory abnormalities] Episodic Other nervous system disorders (4 sources) Poor concentration; Translations: [Attention or concentration deficit] Chronic Other nervous system disorders (2 sources) Poor concentration; Translations: [Poor concentration] Episodic Other non-traumatic joint disorders (2 sources) Acute ankle pain; Translations: [Pain in left ankle and joints of left foot] 11-24-2024 Episodic Other non-traumatic joint disorders (3 sources) Pain in right shoulder; Translations: [Pain in joint, shoulder region] Onset: 5 01-05-2025 Episodic Other nutritional; endocrine; and metabolic disorders (13 sources) Ketosis; Translations: [Other specified metabolic disorders] 10-16-2023 Chronic Other nutritional; endocrine; and metabolic disorders (20 sources) H/O: thyroid disorder; Translations: [Personal history of other endocrine, metabolic, and immunity disorders] Episodic Other and delivery including normal (20 sources) Urine test positive; Translations: [ examination or test, positive result] Onset: 3 11-06-2021 Episodic Comment on above: 11/07/2021; 39 WEEKS; VAGINAL; MALE; 8LBS 6OZ; iol oligo gdma1 sm s vd girl Ellia GBS Negative, declin ed genetic & carrier testing, 36 wk nl growth discussed NIPT & Car rier testing- declined Other upper respiratory disease (20 sources) Seasonal allergy; Translations: [Allergic rhinitis, cause unspecified] Onset: 3 01-30-2023 Chronic Other upper respiratory disease (3 sources) Other seasonal allergic rhinitis; Translations: [Allergic rhinitis, cause unspecified] 05-27-2023 Chronic Polyhydramnios and other problems of amniotic cavity (15 sources) Oligohydramnios; Translations: [Oligohydramnios, third trimester, not applicable or unspecified] 12-13-2023 Episodic Comment on above: proceed with IOL Prolapse of female genital organs (15 sources) Disorder of rectum; Translations: [Rectocele] Onset: 5 12-22-2024 Chronic Comment on above: grade II Residual codes; unclassified (1 source) Other general symptoms and signs; Translations: [OTHER GENERAL SYMPTOMS AND SIGNS] Onset: 9 Episodic Residual codes; unclassified (3 sources) Gestation period, 7 weeks; Translations: [ state, incidental] Episodic Residual codes; unclassified (6 sources) Gestation period, 11 weeks; Translations: [ state, incidental] Episodic Residual codes; unclassified (2 sources) Gestation period, 15 weeks; Translations: [ state, incidental] Episodic Residual codes; unclassified (4 sources) Gestation period, 19 weeks; Translations: [ state, incidental] Episodic Residual codes; unclassified (1 source) Gestation period, 23 weeks; Translations: [ state, incidental] Episodic Residual codes; unclassified (2 sources) Gestation period, 27 weeks; Translations: [ state, incidental] Episodic Residual codes; unclassified (1 source) Gestation period, 30 weeks; Translations: [ state, incidental] Episodic Residual codes; unclassified (3 sources) Gestation period, 31 weeks; Translations: [ state, incidental] Episodic Residual codes; unclassified (1 source) Gestation period, 35 weeks; Translations: [ state, incidental] Episodic Residual codes; unclassified (1 source) Gestation period, 38 weeks; Translations: [ state, incidental] Episodic Residual codes; unclassified (1 source) Admission statuses; Translations: [Other specified conditions influencing health status] 11-06-2021 Episodic Residual codes; unclassified (4 sources) History of gestational hypertension; Translations: [Personal history of other complications of , childbirth and the puerperium] 03-26-2025 Episodic Comment on above: 1st Residual codes; unclassified (1 source) 37 weeks gestation of ; Translations: [37 weeks gestation of ] Onset: 5 Episodic Residual codes; unclassified (1 source) Unspecified blood type, Rh negative; Translations: [Unspecified blood type, Rh negative] Onset: 5 Episodic Residual codes; unclassified (1 source) Personal history of other complications of , childbirth and the puerperium; Translations: [Personal history of other complications of , childbirth and the puerperium] Onset: 5 Episodic Spondylosis; intervertebral disc disorders; other back problems (8 sources) Dorsalgia, unspecified; Translations: [Acute thoracic back pain] Onset: 5 Episodic Sprains and strains (4 sources) Sprain of interphalangeal joint of left little finger, initial encounter; Translations: [Sprain of interphalangeal joint of left little finger, initial encounter] Onset: 5 Episodic Substance-related disorders (4 sources) History of clinical finding in subject; Translations: [History of marijuana use] 03-26-2025 Chronic Comment on above: informed pt of tox s creen initial & random Syncope (20 sources) Syncope; Translations: [Syncope and collapse] 10-16-2023 Episodic Thyroid disorders (20 sources) Thyroiditis; Translations: [Thyroiditis, unspecified] Onset: 3 01-30-2023 Chronic Unclassified (1 source) 4 WK OB - COMING [place] 05-29-2021 Comment on above: 4 WK OB - COMING [facility] [place] Unclassified (1 source) DATES & ANATOMY EDC: 11/14/21 05-29-2021 Comment on above: DATES & AN ATOMY EDC: 11/14/21 Unclassified (2 sources) INDUCTION OF LABOR 11-01-2021 Comment on above: INDUCTION OF LABOR Unclassified (1 source) 6 WK PP 10-31-2021 Comment on above: 6 WK PP Unclassified (1 source) 39 weeks gestation of 11-06-2021 Unclassified (1 source) Admitted to labor and delivery 11-06-2021 Unclassified (2 sources) Spontaneous vaginal delivery 11-08-2021 Unclassified (1 source) Shoulder dystocia during labor and delivery, delivered 11-08-2021 Unclassified (2 sources) Acute cough; Translations: [Acute cough] Onset: 3 Unclassified (1 source) Cough, unspecified; Translations: [Cough, unspecified] Onset: 3 Unclassified (1 source) Acute pain of right shoulder 01-05-2025 Unclassified (1 source) Cannabis use, unspecified, in remission; Translations: [Cannabis use, unspecified, in remission] Onset: 5 Viral infection (20 sources) Genital herpes simplex; Translations: [Genital herpes, unspecified] Onset: 3 02-08-2023 Chronic Viral infection (20 sources) Herpes labialis; Translations: [Herpes simplex without mention of complication] Resolved: 1 Episodic Viral infection (2 sources) Disease caused by 2019-nCoV 06-15-2021 Comment on above: COVID SX Past or Other Problems Problem Classification Problem Date Documented Date Episodic/Chronic Abdominal pain (20 sources) Right upper quadrant abdominal tenderness; Translations: [Left upper quadrant abdominal tenderness] Onset: 01-03-2019 Episodic Deficiency and other anemia (4 sources) Iron deficiency anemia, unspecified; Translations: [Iron deficiency anemia, unspecified] Onset: 01-30-2023 Episodic Hemorrhoids (20 sources) External hemorrhoids; Translations: [External hemorrhoids without mention of complication] Onset: 01-30-2023 01-30-2023 Episodic Malaise and fatigue (17 sources) Malaise and fatigue; Translations: [Other malaise and fatigue] Onset: 06-17-2024 11-24-2024 Episodic Other connective tissue disease (20 sources) Temporomandibular joint crepitus; Translations: [Temporomandibular joint sounds on opening and/or closing the jaw] Onset: 01-30-2023 01-30-2023 Episodic Other connective tissue disease (2 sources) Pain in left foot; Translations: [Pain in left foot] Onset: 11-24-2024 Episodic Other non-traumatic joint disorders (2 sources) Pain in left ankle and joints of left foot; Translations: [Pain in left ankle and joints of left foot] Onset: 02-11-2025 Episodic Other screening for suspected conditions (not mental disorders or infectious disease) (20 sources) Cancer cervix - screening done; Translations: [Cancer cervix screening status] Onset: 01-30-2023 01-30-2023 Episodic Other upper respiratory disease (5 sources) Nasal congestion; Translations: [Nasal congestion] Onset: 10-18-2023 10-18-2023 Episodic Other upper respiratory infections (5 sources) Acute maxillary sinusitis; Translations: [Acute maxillary sinusitis, unspecified] Onset: 10-18-2023 10-18-2023 Episodic Pleurisy; pneumothorax; pulmonary collapse (7 sources) Pleurisy; Translations: [Pleurisy] Onset: 01-30-2023 01-30-2023 Episodic Skin and subcutaneous tissue infections (7 sources) Abscess; Translations: [Cutaneous abscess, unspecified] Onset: 03-14-2023 03-14-2023 Episodic Thyroid disorders (20 sources) Pain in thyroid; Translations: [Other specified disorders of thyroid] Onset: 01-30-2023 01-30-2023 Episodic Unclassified (4 sources) Patient encounter status; Translations: [Immunity status testing] Unclassified (20 sources) Finding of menstrual bleeding; Translations: [Menstruation] Comment on above: age 11; Unclassified (7 sources) Onset: 01-30-2023 Resolved: 01-05-2025 01-30-2023 Unclassified (1 source) Acute cough; Translations: [Acute cough] Onset: 01-31-2023 NEGATED: Highlighted row has not occurred!Residual codes; unclassified (8 sources) Disease Episodic Results Test Name Value Interpretation Reference Range Facility Absolute lymphocyte countOrd ered By: Brandi Pacheco on 04-06-2025 Lymphocytes Auto (Unsp spec) [#/Vol] 1.61 10*3/uL 0.83-4.51 [facility] Absolute neutrophil countOrd ered By: Brandi Pacheco on 04-06-2025 Neutrophils (Bld) [#/Vol] 5.3 10*3/uL 2.0-7.7 [facility] Automated lymphocyte count a s percentage of total leukocytesOrdered By: Brandi Pacheco on 04-06-2025 Lymphocytes/100 WBC Auto (Unsp spec) 21.6 % 19-41 [facility] Basophil percentageOrdered B y: Brandi Pacheco on 04-06-2025 Basophils/100 WBC (Bld) 0.7 % 0-1 [facility] Eosinophil percentageOrdered By: Brandi Pacheco on 04-06-2025 Eosinophils/100 WBC (Bld) 0.9 % 0-5 [facility] Erythrocyte distribution wid th ratioOrdered By: Brandi Pacheco on 04-06-2025 Erythrocyte distribution width (RBC) [Ratio] 13.0 % 11.6-14.6 [facility] Erythrocyte distribution wid th standard deviationOrdered By: Brandi Pacheco on 04-06-2025 Erythrocyte distribution width (RBC) [Ratio] 39.2 fl 35.1-43.9 [facility] Hematocrit Auto (Bld) [Volum e fraction]Ordered By: Brandi Pacheco on 04-06-2025 Hematocrit (Bld) [Volume fraction] 31.7 % Low 37-47 [facility] Hemoglobin measurementOrdere d By: Brandi Pacheco on 04-06-2025 Hemoglobin (Bld) [Mass/Vol] 10.9 g/dL Low 12.0-15.0 [facility] Immature granulocytes/100 WB C Auto (Bld)Ordered By: Brandi Pacheco on 04-06-2025 Immature granulocytes/100 WBC (Bld) 0.300 % 0.0-0.9 [facility] Comment on above: IG% - Immature Granu locytes (promyelocytes, myelocytes and metamyelocytes) > 1% indicates that a LEFT SHIFT is Present. Iron measurement (mass/mass) Ordered By: Brandi Pacheco on 04-06-2025 Iron (Unsp spec) [Mass/Mass] 61 ug/dL 50-170 [facility] MCV (mean corpuscular volume ) determinationOrdered By: Brandi Pacheco on 04-06-2025 MCV (RBC) [Entitic vol] 83.0 fL 81-99 [facility] Mean corpuscular hemoglobin (MCH) determinationOrdered By: Brandi Pacheco on 04-06-2025 MCH (RBC) [Entitic mass] 28.5 pg 27.0-32.0 [facility] Mean corpuscular hemoglobin concentration (MCHC) determinationOrdered By: Brandi Pacheco on 04-06-2025 MCHC (RBC) [Mass/Vol] 34.4 g/dL 32-36 [facility] Mean platelet volume determi nationOrdered By: Brandi Pacheco on 04-06-2025 Platelet mean volume (Bld) [Entitic vol] 9.5 fL 6.2-12.0 [facility] Monocyte percentageOrdered B y: Brandi Pacheco on 04-06-2025 Monocytes/100 WBC (Bld) 5.9 % 0-10 [facility] Neutrophil percentageOrdered By: Brandi Pacheco on 04-06-2025 Neutrophils/100 WBC (Bld) 70.6 % High 47-70 [facility] No Panel InformationOrdered By: Brandi Pacheco on 04-06-2025 Unsaturated Iron Binding Capacity 345 ug/dL 228-428 [facility] [facility] Nucleated red blood cell per centageOrdered By: Brandi Pacheco on 04-06-2025 Nucleated RBC/100 WBC (Bld) [Ratio] 0 % 0-5 [facility] Platelet countOrdered By: Marcelo Pacheco on 04-06-2025 Platelets (Bld) [#/Vol] 251 10*3/uL 150-450 [facility] RBC Auto (Bld) [#/Vol]Ordere d By: Brandi Pacheco on 04-06-2025 RBC (Bld) [#/Vol] 3.82 10*6/uL Low 4.2-5.4 [facility] Serum or plasma ferritin brenda surement (mass/volume)Ordered By: Brandi Pacheco on 04-06-2025 Ferritin [Mass/Vol] 14 ng/mL Low 22-378 [facility] Serum or plasma iron saturat ion measurement (mass fraction)Ordered By: Brandi Pacheco on 04-06-2025 Iron saturation [Mass fraction] 15.0 % 13-59 [facility] T4 freeOrdered By: Brandi Pacheco on 04-06-2025 Free T4 [Mass/Vol] 1.30 ng/dL 0.76-1.46 [facility] TSH DL <= 0.005 mIU/L QnOrde red By: Brandi Pacheco on 04-06-2025 TSH Qn 1.310 uIU/mL 0.300-4.200 [facility] Vitamin B12 ser/plasOrdered By: Brandi Pacheco on 04-06-2025 Cobalamin (Vitamin B12) [Mass/Vol] 465 pg/mL 180-914 [facility] White blood cell (WBC) count Ordered By: Brandi Pacheco on 04-06-2025 WBC (Bld) [#/Vol] 7.5 10*3/uL 4.4-11.0 [facility] Amphetamine detection with 1 000 ng/mL as cutoffOrdered By: Brandi Pacheco on 04-05-2025 Amphetamines Screen method >1000 ng/mL Ql (U) Negative < 200 ng/mL [facility] No Panel InformationOrdered By: Brandi Pacheco on 04-05-2025 Urine Buprenorphine Qualitative Negative < 200 ng/mL [facility] Urine Oxycodone Screen Negative < 100 ng/mL [facility] [employer] Office Visit Reporton 04-05-2025 [employer] Office Visit Report [facility] [address], [address] [place] [address] OFFICE VISIT Date of Service: 04/05/25 MR#: [id number] Acct: [id number] Name: JOHNY TORRES Rep #: [id number] : 2000 Provider: Dr. Brandi Gray DO Age/Sex: 24/F Location: [facility] [place] [facility] Status: Signed Intake Vital Signs 12/22/24 09:34 03/11/25 08:03 04/05/25 10:51 04/05/25 10:53 Height 5 ft 3 in 5 ft 3 in 5 ft 3 in 5 ft 3 in Weight: 138 lb BMI 24.4 BP 121/79 H Intake Visit Reasons: *EST* NOB LMP 02/01, STARR 11/08 [employer] Required: No Is patient in pain?: No Allergies Latex, Natural Rubber Allergy (Mild, Verified 04/05/25 10:49) Itching hydrocodone (From Vicodin) Allergy (Verified 04/05/25 10:49) other hydromorphone (From Dilaudid) Adverse Reaction (Intermediate, Verified 04/05/25 10:49) passed out Medications ???Medication ???Instructions ???Recorded ???Confirmed ???Type multivit-min no.71-iron fum 28 1 cap PO DAILY 05/16/23 04/05/25 H istory mg-folate no.1 1 mg-dha 300 mg capsule (PNV-[place]) levothyroxine 50 mcg tablet 50 mcg PO QDAY #90 tabs 03/11/25 0 04/05/25 Rx albuterol sulfate 90 mcg/actuation 2 puff inhalation Q6H PRN 04/05/25 History aerosol inhaler (Ventolin HFA) cholecalciferol (vitamin D3) 50 50 mcg PO QDAY 03/26/25 04/05/25 H istory mcg (2,000 unit) capsule Last Menstrual Period: 02/01/25 Zika: Zika virus screening: Negative : Yes PFSH PFSH Medical History H/O herpes genitalis Abnormal uterine bleeding 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 Autoimmune thyroiditis Vaginal delivery Oligohydramnios Gestational diabetes mellitus (GDM) affecting , antepartum Abnormal glucose affecting Shoulder dystocia during labor and delivery Rh negative status during Surgical History History of throat surgery History of tonsillectomy [place] teeth extracted Family History Grandmother Ovarian cancer, Onset Age: 70 Paternal great grandmother Colon cancer, Onset Age: 60 Paternal Social History adopted: No household members: spouse and children housing: house number of children: 2 current occupational status: unemployed current occupation: [employer] pets and animals: Yes pets and animals: dog(s) history of recent travel: No sexually active: Yes Smoking Status: Former smoker quit date: 03/15/21 pack-years: 4 Tobacco: How many years used: 2 Electronic Cigarette Use: with nicotine alcohol intake: current alcohol intake frequency: holidays/special occasions only details: not while substance use type: former substance user and marijuana well-balanced diet: daily or most days caffeine: No eating out: rarely or never during the past year weight has: decreased > 10 lbs what type of physical activity do you participate in: walking frequency: 1-2 times per week duration: 30-45 minutes/day stacey/taoism: Temple seatbelt use: always do you feel safe at home: Yes additional social history: Shawn Torres History 3 Elective abortions Hx Para 2 Spontaneous abortions Hx # Term Pregnancies Ectopic pregnancies Hx # Pregnancies Multiple births # of living children 2 Past Pregnancies Del. Date Name GA/Weeks Outcome Route Bth Weight Infant Gen Labor Lgth Anesthesia Del Locatn Provider FOB 11/07/21 Tye 39 live - full term 8#6oz Male epidural Claus Escobar 12/17/23 Kate 37 live - full term 6lbs 14oz Female epidural [facility] Olivia Escobar Delivery Date: 11/07/21 Last Updated by: Esme Baker MD IOL- small pelvis, shoulder dystocia and clavicle fracture Delivery Date: 12/17/23 Last Updated by: Nicole Mehta IOL oligo [email or web address] HPI *EST* NOB LMP 02/01, STARR 11/08 Details: JOHNY TORRES is a 24 year old who presents for New OB visit, has not been feeling nauseated. wants to discuss possible celiac disease testing for chronic anemia. The anemia is refractory to oral iron therapy. OB Visit STARR Calculator Estimated Delivery Date Method Current WG Current Estimate 11/08/25 LMP (Certain) 9w 0d Comments: HIV: Urine Culture: Sequential Screen: NIPT Screen: Estimated Due Date: 11/08/25 Initial Weight: Not Recorded Date -???-???-???-???-???-??? -???-???-???-???-???-??? - EGA Weight BP Urine Prot -???-???-???-???-???-??? -???-???-???-???-???-??? - Glucose FHR FuHt Pres Dilation -???-???-???-???-???-??? -???-???-???-???-???-??? - Effaced St Visit (more content not included)... Normal [facility] Quantitative urine opiates m easurementOrdered By: Brandi Pacheco on 04-05-2025 Opiates Ql (U) Negative < 300 ng/mL [facility] Screening urine fentanyl brenda surementOrdered By: Brandi Pacheco on 04-05-2025 fentaNYL Screen Ql (U) Negative [facility] Urine Drug Screen (VISTA)on 04-05-2025 AMPHETAMINES Negative Normal <1000 ng/mL [facility] Comment on above: Order Comment: UNK Performed By: #### L 505.5000 ####[facility] [address] [place] [address] BARBITIURATES Negative Normal < 200 ng/mL [facility] Comment on above: Order Comment: UNK Performed By: #### L 505.5000 ####[facility] [address] [place] [address] BENZODIAZIPINE Negative Normal < 200 ng/mL [facility] Comment on above: Order Comment: UNK Performed By: #### L 505.5000 ####[facility] [address] [place] [address] BUP Ur Drug Scr Negative Normal < 200 ng/mL [facility] Comment on above: Order Comment: UNK Performed By: #### L 505.5000 ####[facility] [address] [place] [address] COCAINE Negative Normal < 300 ng/mL [facility] Comment on above: Order Comment: UNK Performed By: #### L 505.5000 ####[facility] [address] [place] [address] Fentanyl Negative Normal [facility] Comment on above: Order Comment: UNK Performed By: #### L 505.5000 ####[facility] [address] [place] [address] METHADONE Negative Normal < 300 ng/mL [facility] Comment on above: Order Comment: UNK Performed By: #### L 505.5000 ####[facility] [address] [place], [place], [id number] OPIATES Negative Normal < 300 ng/mL [facility] Comment on above: Order Comment: UNK Performed By: #### L 505.5000 ####[facility] [address] [place], [address] OXYCODONE Negative Normal < 100 ng/mL [facility] Comment on above: Order Comment: UNK Performed By: #### L 505.5000 ####[facility] [address] [place], [place], [id number] PCP Negative Normal < 25 ng/mL [facility] Comment on above: Order Comment: UNK Performed By: #### L 505.5000 ####[facility] [address] [place], [place], [id number] THC Negative Normal < 50 ng/mL [facility] Comment on above: Order Comment: UNK Performed By: #### L 505.5000 ####[facility] [address] [place], [place], [id number] Urine benzodiazepine levelOr dered By: Brandi Pacheco on 04-05-2025 Benzodiazepines Ql (U) Negative < 200 ng/mL [facility] Urine cocaine levelOrdered B y: Brandi Pacheco on 04-05-2025 Cocaine Ql (U) Negative < 300 ng/mL [facility] Urine chqdf-8-gieqtbqhfiwiqb abinol (THC) measurementOrdered By: Brandi Pacheco on 04-05-2025 Cannabinoids Screen Ql (U) Negative < 50 ng/mL [facility] Urine phencyclidine (PCP) de tectionOrdered By: Brandi Pacheco on 04-05-2025 Phencyclidine Ql (U) Negative < 25 ng/mL [facility] HCG, TOTAL, QNon 03-23-2025 HCG Qn 812472 m[IU]/mL [facility] Comment on above: Result Comment: Refe rence Range Non or premenopausal <5 Postmenopausal <10 Values from different assay methods may vary. The use of this assay to monitor or to diagnose patients with cancer or any condition unrelated to has not been cleared or approved by the FDA or the financial analysis manager of the assay. Performed By: #### 8 396 #### [facility] [address] [place] [address], [address] [place] [address] Health Sanitarian: Micheel Lewis MD Absolute lymphocyte countOrd ered By: Esme Baker on 03-11-2025 Lymphocytes Auto (Unsp spec) [#/Vol] 1.29 10*3/uL 0.83-4.51 [facility] Absolute neutrophil countOrd ered By: Esme Baker on 03-11-2025 Neutrophils (Bld) [#/Vol] 3.4 10*3/uL 2.0-7.7 [facility] Automated blood erythrocyte countOrdered By: Esme Baekr on 03-11-2025 RBC (Bld) [#/Vol] 3.93 10*6/uL Low 4.2-5.4 [facility] Comment on above: Performed By: #### L 506.1001, L100.0100 ####[facility] [address] [place], [place], [id number] Automated blood hematocrit ( percentage)Ordered By: Esme Baker on 03-11-2025 Hematocrit (Bld) [Volume fraction] 33.0 % Low 37-47 [facility] Comment on above: Performed By: #### L 506.1001, L100.0100 ####[facility] [address] [place], [address] Automated lymphocyte count a s percentage of total leukocytesOrdered By: Esme Baker on 03-11-2025 Lymphocytes/100 WBC Auto (Unsp spec) 24.8 % 19-41 [facility] Basophil percentageOrdered B y: Esme Baker on 03-11-2025 Basophils/100 WBC (Bld) 1.0 % 0-1 [facility] Comment on above: Performed By: #### L 506.1001, L100.0100 ####[facility] [address] [place], [address] CBC W/Diff, Automatedon 05-2 -2024 Absolute Lymph 1.29 X10 3/uL Normal 0.83-4.51 [facility] Comment on above: Performed By: #### L 506.1001, L100.0100 ####[facility] [address] [place], [address] Absolute Neut 3.4 X10 3/uL Normal 2.0-7.7 [facility] Comment on above: Performed By: #### L 506.1001, L100.0100 ####[facility] [address] [place], [address] IG% 0.200 Normal 0.0-0.9 [facility] Comment on above: Result Comment: IG% - Immature Granulocytes (promyelocytes, myelocytes and metamyelocytes) > 1% indicates that a LEFT SHIFT is Present. Performed By: #### L 506.1001, L100.0100 ####[facility] [address] [place], [address] Lymphocytes/100 WBC (Bld) 24.8 % Normal 19-41 [facility] Comment on above: Performed By: #### L 506.1001, L100.0100 ####[facility] [address] [place], [address] Nucleated RBC (Bld) [#/Vol] 0 10*3/uL Normal 0-5 [facility] Comment on above: Performed By: #### L 506.1001, L100.0100 ####[facility] [address] [place], [address] RDW SD 38.5 fl Normal 35.1-43.9 [facility] Comment on above: Performed By: #### L 506.1001, L100.0100 ####[facility] [address] [place], [address] Endocrinology Visit Reporton 03-11-2025 Endocrinology Visit Report [facility] [address] [place] [address] OFFICE VISIT Date of Service: 03/11/25 MR#: [id number] Acct: [id number] Name: JOHNY TORRES Rep #: [id number] : 2000 Provider: Pam Pike Age/Sex: 24/F Location: [facility] [place] Status: Signed Intake Vital Signs 12/22/24 09:34 03/11/25 08:03 Height 5 ft 3 in 5 ft 3 in Weight: 138 lb 6 oz 136 lb 4 oz BMI 24.5 24.1 BP 124/79 H 106/73 Blood Pressure Location Lt brachial Position Sitting Pulse 93 Pulse Source Monitor Pulse Oximetry (%) 98 Oxygen Delivery Method room air Intake Visit Reasons: 2 Y FU Chief Complaint: Thyroid Is patient in pain?: No Allergies Latex, Natural Rubber Allergy (Mild, Verified 03/11/25 08:19) Itching hydrocodone (From Vicodin) Allergy (Verified 03/11/25 08:19) other hydromorphone (From Dilaudid) Adverse Reaction (Intermediate, Verified 03/11/25 08:19) passed out Medications ???Medication ???Instructions ???Recorded ???Confirmed ???Type multivit-min no.71-iron fum 28 1 cap PO DAILY 05/16/23 03/11/25 H istory mg-folate no.1 1 mg-dha 300 mg capsule (PNV-[place]) levothyroxine 50 mcg tablet 50 mcg PO QDAY #90 tabs 01/11/25 0 03/11/25 Rx Patient : Yes (5 w 3 d) [facility] Medical History (Updated 03/11/25 @ 08:[address] 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 Autoimmune thyroiditis Vaginal delivery Oligohydramnios Gestational diabetes mellitus (GDM) affecting , antepartum Abnormal glucose affecting Shoulder dystocia during labor and delivery Rh negative status during H/O herpes genitalis Surgical History History of throat surgery History of tonsillectomy [place] teeth extracted Family History Grandmother Ovarian cancer great grandmother Social History adopted: No household members: spouse and children number of children: 2 current occupational status: unemployed current occupation: [employer] pets and animals: Yes pets and animals: dog(s) history of recent travel: No sexually active: Yes Smoking Status: Former smoker quit date: 03/15/21 pack-years: 4 alcohol intake: never substance use type: does not use well-balanced diet: daily or most days caffeine: No eating out: 1-3 times/week during the past year weight has: remained stable what type of physical activity do you participate in: walking frequency: daily duration: 30-45 minutes/day stacey/taoism: Temple seatbelt use: always do you feel safe at home: Yes additional social history: Shawn Torres HPI HPI Chief Complaint: Thyroid Details: JOHNY FREED, is a 24 F who presents to the office today for follow up. She has hypothyroidism due to Sivan's. She reports being 5 weeks . She is due for labs. She is feeling well. She is taking levothyroxine 50 mcg and she is following the rules. ROS Const Constitutional: No fatigue, weight change or change in appetite Eyes Eyes: No change in vision ENT ENT: No dizziness/vertigo or difficulty swallowing Cardio Cardiology: No chest pain at rest, chest pain with exertion, shortness of breath or palpitations Musc Musculoskeletal: No abnormal gait, joint pain, numbness or tingling Neuro Neurology: No abnormal gait, memory loss, numbness or tingling Psych Psychiatric: No change in appetite, No memory loss and No Thoughts of harming yourself/Others Resp Respiratory: No cough, chest congestion or shortness of breath Gastro GI: Positive for nausea/dyspepsia; No abdominal pain, constipation, diarrhea or difficulty swallowing Genitourinary-Female: No burning urination Skin Skin: No itchy eyes or wounds Endo Endocrine: No fatigue or weight change Aller/Imm Allergy/Immunologic: No itchy eyes Exam Const General: cooperative, healthy appearing, comfortable, no acute distress, well developed and not cushingoid Nutritional Appearance: well nourished Orientation: alert, awake and oriented x3 HENMT Head: normal to inspection Ears: hearing grossly normal bilaterally Nose: external nose normal Mouth: oral mucosae normal Eyes General: appearance normal, both eyes and all related structures Alignment and Position: alignment normal Periorbital: periorbital findings normal Eyelids: eyelids normal Conjunctivae: conjunctivae normal Neck Neck: normal visual inspection Neck mass: No Thyroid: thyroid normal Lymphatic: no lymphadenopathy noted Chest Chest palpation inspection: normal inspection of the chest Resp Effort Inspection: normal respiratory effort, able to speak in c (more content not included)... Normal [facility] Eosinophil percentageOrdered By: Esme Baker on 03-11-2025 Eosinophils/100 WBC (Bld) 2.7 % 0-5 [facility] Comment on above: Performed By: #### L 506.1001, L100.0100 ####[facility] [address] [facility] [id number] Erythrocyte distribution wid th ratioOrdered By: Esme Baker on 03-11-2025 Erythrocyte distribution width (RBC) [Ratio] 12.6 % 11.6-14.6 [facility] Comment on above: Performed By: #### L 506.1001, L100.0100 ####[facility] [address] [facility] [id number] Erythrocyte distribution wid th standard deviationOrdered By: Esme Baker on 03-11-2025 Erythrocyte distribution width (RBC) [Ratio] 38.5 fl 35.1-43.9 [facility] Hemoglobin measurementOrdere d By: Esme Baker on 03-11-2025 Hemoglobin (Bld) [Mass/Vol] 11.2 g/dL Low 12.0-15.0 [facility] Comment on above: Performed By: #### L 506.1001, L100.0100 ####[facility] [address] [place] [id number] Immature granulocytes/100 WB C Auto (Bld)Ordered By: Esme Baker on 03-11-2025 Immature granulocytes/100 WBC (Bld) 0.200 % 0.0-0.9 [facility] Comment on above: IG% - Immature Granu locytes (promyelocytes, myelocytes and metamyelocytes) > 1% indicates that a LEFT SHIFT is Present. MCV (mean corpuscular volume ) determinationOrdered By: Esme Baker on 03-11-2025 MCV (RBC) [Entitic vol] 84.0 fL 81-99 [facility] Comment on above: Performed By: #### L 506.1001, L100.0100 ####[facility] [address] [place], [address] Mean corpuscular hemoglobin (MCH) determinationOrdered By: Esme Baker on 03-11-2025 MCH (RBC) [Entitic mass] 28.5 pg 27.0-32.0 [facility] Comment on above: Performed By: #### L 506.1001, L100.0100 ####[facility] [address] [place], [address] Mean corpuscular hemoglobin concentration (MCHC) determinationOrdered By: Esme Baker on 03-11-2025 MCHC (RBC) [Mass/Vol] 33.9 g/dL 32-36 [facility] Comment on above: Performed By: #### L 506.1001, L100.0100 ####[facility] [address] [place], [address] Mean platelet volume determi nationOrdered By: Esme Baker on 03-11-2025 Platelet mean volume (Bld) [Entitic vol] 9.8 fL 6.2-12.0 [facility] Comment on above: Performed By: #### L 506.1001, L100.0100 ####[facility] [address] [place], [address] Monocyte percentageOrdered B y: Esme Olivia on 03-11-2025 Monocytes/100 WBC (Bld) 6.0 % 0-10 [facility] Comment on above: Performed By: #### L 506.1001, L100.0100 ####[facility] [address] [place], [address] Neutrophil percentageOrdered By: Esme Baker on 03-11-2025 Neutrophils/100 WBC (Bld) 65.3 % 47-70 [facility] Comment on above: Performed By: #### L 506.1001, L100.0100 ####[facility] [address] [place], [address] Nucleated red blood cell per centageOrdered By: Esme Baker on 03-11-2025 Nucleated RBC/100 WBC (Bld) [Ratio] 0 % 0-5 [facility] Platelet countOrdered By: Luciano Baker on 03-11-2025 Platelets (Bld) [#/Vol] 297 10*3/uL 150-450 [facility] Comment on above: Performed By: #### L 506.1001, L100.0100 ####[facility] [address] [place], [address] T4 Free Directon 03-11-2025 T4 FREE DIRECT 1.30 ng/dL Normal 0.76-1.46 [facility] Comment on above: Performed By: #### L 506.0400, L501.9520 ####[facility] [address] [place], [address] T4 freeOrdered By: Anson Richter on 03-11-2025 Free T4 [Mass/Vol] 1.30 ng/dL 0.76-1.46 [facility] TSH DL <= 0.005 mIU/L QnOrde red By: Anson Richter on 03-11-2025 TSH Qn 2.830 uIU/mL 0.300-4.200 [facility] Thyroid Stim Hormone (TSH)on 03-11-2025 TSH 2.830 uIU/mL Normal 0.300-4.200 [facility] Comment on above: Performed By: #### L 506.0400, L501.9520 ####[facility] [address] [place], [address] Vitamin D,25 Hydroxyon 03-11 Vitamin D 25-OH 27.1 ng/mL Low 30-100 [facility] Comment on above: Result Comment: Ariane min D Status Deficiency: <20 ng/mL (50nmol/L) Insufficiency: 20-30 ng/mL (50-75 nmol/L) Sufficiency: 30-100 ng/mL (75-250 nmol/L) Toxicity: >100 ng/mL (>250 nmol/L) Performed By: #### L 506.1001, L100.0100 ####[facility] [address] [place], [address] White blood cell (WBC) count Ordered By: Esme Baker on 03-11-2025 WBC (Bld) [#/Vol] 5.2 10*3/uL 4.4-11.0 [facility] Comment on above: Performed By: #### L 506.1001, L100.0100 ####[facility] [address] [place], [address] ED Prov Noteon 12-25-2024 ED Prov Note HPI: 12/25/2024, Time: @NOWNR@ Johny Freed is a 24 y.o. female presenting to the ED for abdominal cramping epigastric with watery diarrhea over the last 3 days and also jammed her left fifth finger in a stroller while putting it back into the car, beginning 3 days ago. The complaint has been constant, moderate in severity, and worsened by changing position. And abdominal pain worse with eating but minimal unless she is eating. Also complains of right posterior shoulder/back pain and was worried about her gallbladder. ROS: Pertinent positives and negatives are stated within HPI, all other systems reviewed and are negative. PAST HISTORY Past Medical History: @[facility]@ Past Surgical History: has a past surgical history that includes tonsillectomy and Dental surgery. Social History: reports that she has never smoked. She has never used smokeless tobacco. She reports current alcohol use. She reports that she does not use drugs. Family History: family history is not on file. The patient's home medications have been reviewed. Allergies: Dilaudid [hydromorphone] and Vicodin [hydrocodone-acetaminoph en] -- RESULTS - All laboratory and radiology results have been personally reviewed by myself LABS: Results for orders placed or performed during the hospital encounter of 12/25/24 POC CBC and Differential Collection Time: 12/25/24 1:58 PM Result Value Ref Range WBC 2.98 (L) 4.50 - 11.00 K/mcL RBC 4.33 4.00 - 5.20 M/mcL Hemoglobin 12.3 12.0 - 16.0 g/dL Hematocrit 35.5 (L) 36.0 - 46.0 % MCV 82.0 80.0 - 100.0 fL MCH 28.4 26.0 - 34.0 pg MCHC 34.6 31.0 - 37.0 g/dL RDW - CV 12.1 11.6 - 14.8 % Platelets 205 150 - 400 K/mcL MPV 8.9 (L) 9.4 - 12.4 fL Neutrophils 65.1 % Lymphocytes 24.2 % Monocytes 8.1 % Eosinophils 2.0 % Basophils 0.3 % IG Percent 0.30 % Neutrophils Abs 1.94 1.70 - 7.00 K/mcL Lymphocytes Abs 0.72 (L) 0.90 - 4.00 K/mcL Monocytes Abs 0.24 (L) 0.30 - 0.90 K/mcL Eosinophils Abs 0.06 0.00 - 0.50 K/mcL Basophils Abs 0.01 0.00 - 0.30 K/mcL IG Absolute 0.01 0.00 - 0.30 K/mcL POC Liver Panel Plus Collection Time: 12/25/24 2:00 PM Result Value Ref Range Albumin 4.1 3.2 - 5.2 g/dL Alkaline Phosphatase 63 40 - 140 U/L ALT (SGPT) <5 0 - 40 U/L AST (SGOT) 21 0 - 45 U/L Bilirubin, Total 0.6 0.0 - 1.3 mg/dL Total Protein 7.2 6.0 - 8.0 g/dL Amylase 33 25 - 115 U/L GGT 5 (L) 7 - 33 U/L POC Basic Metabolic Panel Collection Time: 12/25/24 2:03 PM Result Value Ref Range Glucose 87 65 - 99 mg/dL BUN 11 8 - 25 mg/dL Creatinine 0.52 0.40 - 1.10 mg/dL GFR 133 >=60 mL/min/1.73 m2 Sodium 139 135 - 145 mmol/L Potassium 3.4 (L) 3.5 - 5.1 mmol/L Chloride 107 98 - 108 mmol/L TCO2 21 21 - 32 mmol/L Ionized Calcium 4.5 4.5 - 5.3 mg/dL RADIOLOGY: Interpreted by Radiologist. XR Chest 1 View (Results Pending) XR Finger(s) Left 2+ Views (Results Pending) - NURSING NOTES AND VITALS REVIEWED --- The nursing notes within the ED encounter and vital signs as below have been reviewed. BP 107/78 Pulse (!) 100 Temp 99.1 degrees F (37.3 degrees C) (Oral) Resp 16 Ht 5' 3 Wt 61.2 kg (135 lb) LMP 12/08/2024 SpO2 98% BMI 23.91 kg/m Oxygen Saturation Interpretation: Normal ---PHYSICAL EXAM Constitutional/General: Alert and oriented x3, well appearing, non toxic in NAD Head: NC/AT Eyes: PERRL, EOMI Mouth: Oropharynx clear, handling secretions, no trismus Neck: Supple, full ROM, no meningeal signs Pulmonary: Lungs clear to auscultation bilaterally, no wheezes, rales, or rhonchi. Not in respiratory distress Cardiovascular: Regular rate and rhythm, no murmurs, gallops, or rubs. 2+ distal pulses Abdomen: Soft, mild epigastric tenderness, non distended, Extremities: Moves all extremities x 4. Warm and well perfused, left fifth digit: Moderate tenderness to palpation over the middle finger with swelling Skin: warm and dry without rash Neurologic: GCS 15, Psych: Normal Affect ------ ED COURSE/MEDICAL DECISION MAKING ---- Medications sodium chloride 0.9% (NS) bolus 1,000 mL (1,000 mL Intravenous New Bag 12/25/24 1421) ondansetron (ZOFRAN) injection 4 mg (has no administration in time range) famotidine (PEPCID) Vial 20 mg (has no administration in time range) potassium chloride SA (K-DUR,KLOR-CON M10) CR tablet 40 mEq (has no administration in time range) Medical Decision Making: Will obtain appropriate GI labs and also x-ray left fifth digit Counseling: The emergency provider has spoken with the patient and discussed today's results, in addition to providing specific det (more content not included)... Normal [facility] POC BASIC [facility]ABOLIC PANEL [facility] Chloride [Moles/Vol] 107 mmol/L Normal 98-108 [facility] Comment on above: Order Comment: [facility] Services has implemented the eGFR calculation approach that does not have a coefficient for race that conforms to the NKF-ASN Task Force Recommendations. CO2 [Moles/Vol] 21 mmol/L Normal 21-32 [facility] Comment on above: Order Comment: [facility] has implemented the eGFR calculation approach that does not have a coefficient for race that conforms to the NKF-ASN Task Force Recommendations. Creatinine [Mass/Vol] 0.52 mg/dL Normal 0.40-1.10 [facility] Comment on above: Order Comment: [facility] has implemented the eGFR calculation approach that does not have a coefficient for race that conforms to the NKF-ASN Task Force Recommendations. Glucose [Mass/Vol] 87 mg/dL Normal 65-99 [facility] Comment on above: Order Comment: [facility] has implemented the eGFR calculation approach that does not have a coefficient for race that conforms to the NKF-ASN Task Force Recommendations. POC GFR 133 mL/min/1.73 m2 Normal >=60 [facility] Comment on above: Order Comment: [facility] has implemented the eGFR calculation approach that does not have a coefficient for race that conforms to the NKF-ASN Task Force Recommendations. Result Comment: Ann-Marie mated GFR was calculated using the 2020 CKD-EPI creatinine equation. POC IONIZED CALCIUM 4.5 mg/dL Normal 4.5-5.3 [facility] Comment on above: Order Comment: [facility] has implemented the eGFR calculation approach that does not have a coefficient for race that conforms to the NKF-ASN Task Force Recommendations. Potassium [Moles/Vol] 3.4 mmol/L Low 3.5-5.1 [facility] Comment on above: Order Comment: [facility] has implemented the eGFR calculation approach that does not have a coefficient for race that conforms to the NKF-ASN Task Force Recommendations. Sodium [Moles/Vol] 139 mmol/L Normal 135-145 [facility] Comment on above: Order Comment: [facility] has implemented the eGFR calculation approach that does not have a coefficient for race that conforms to the NKF-ASN Task Force Recommendations. Urea nitrogen [Mass/Vol] 11 mg/dL Normal 8-25 [facility] Comment on above: Order Comment: [facility] has implemented the eGFR calculation approach that does not have a coefficient for race that conforms to the NKF-ASN Task Force Recommendations. POC CBC AND DIFFERENTIALon 0 - BASOPHILS ABSOLUTE COUNT 0.01 K/mcL Normal 0.00-0.30 [facility] Basophils/100 WBC (Bld) 0.3 % Normal [facility] Eosinophils (Bld) [#/Vol] 0.06 10*3/uL Normal 0.00-0.50 [facility] Eosinophils/100 WBC (Bld) 2.0 % Normal [facility] Erythrocyte distribution width (RBC) [Ratio] 12.1 % Normal 11.6-14.8 [facility] Hematocrit (Bld) [Volume fraction] 35.5 % Low 36.0-46.0 [facility] Hemoglobin (Bld) [Mass/Vol] 12.3 g/dL Normal 12.0-16.0 [facility] IG ABSOLUTE 0.01 K/mcL Normal 0.00-0.30 [facility] IG PERCENT 0.30 % Normal [facility] Comment on above: Result Comment: The IG parameter is the percentage of metamyelocytes, myelocytes and promyelocytes. An immature granulocyte count (IG) of 1% or more suggests the possibility of infection, an IG count of 3% is very likely related to an infection. Lymphocytes (Bld) [#/Vol] 0.72 10*3/uL Low 0.90-4.00 [facility] Lymphocytes/100 WBC (Bld) 24.2 % Normal [facility] MCH (RBC) [Entitic mass] 28.4 pg Normal 26.0-34.0 [facility] MCV (RBC) [Entitic vol] 82.0 fL Normal 80.0-100.0 [facility] MEAN CORPUSCULAR HEMOGLOBIN CONC 34.6 g/dL Normal 31.0-37.0 [facility] Monocytes (Bld) [#/Vol] 0.24 10*3/uL Low 0.30-0.90 [facility] Monocytes/100 WBC (Bld) 8.1 % Normal [facility] NEUTROPHILS ABSOLUTE COUNT 1.94 K/mcL Normal 1.70-7.00 [facility] Neutrophils/100 WBC (Bld) 65.1 % Normal [facility] Platelet mean volume (Bld) [Entitic vol] 8.9 fL Low 9.4-12.4 [facility] Platelets (Bld) [#/Vol] 205 10*3/uL Normal 150-400 [facility] RBC (Bld) [#/Vol] 4.33 10*6/uL Normal 4.00-5.20 [facility] WBC (Bld) [#/Vol] 2.98 10*3/uL Low 4.50-11.00 [facility] POC LIVER PANEL PLUS Marlin 12-25-2024 Albumin [Mass/Vol] 4.1 g/dL Normal 3.2-5.2 [facility] ALP [Catalytic activity/Vol] 63 U/L Normal 40-140 [facility] Amylase [Catalytic activity/Vol] 33 U/L Normal 25-115 [facility] Amylase [Catalytic activity/Vol] 5 U/L Low 7-33 [facility] AST [Catalytic activity/Vol] 21 U/L Normal 0-45 [facility] Bilirubin [Mass/Vol] 0.6 mg/dL Normal 0.0-1.3 [facility] POC ALT (SGPT) < Normal 0-40 [facility] Protein [Mass/Vol] 7.2 g/dL Normal 6.0-8.0 [facility] XR CHEST PA/APon 12-25-2024 XR CHEST PA/AP EXAMINATION: XR CHEST PA/AP 12/25/2024 1:39 pm HISTORY: ORDERING SYSTEM PROVIDED HISTORY: back pain, TECHNOLOGIST PROVIDED HISTORY: Illness/Other Reason for exam: upper chest ache and right shoulder pain worse with inspiration- pt pulled down her bra however artifacts still seen did not repeat due to age and pain not in this area Cancer History: n Surgery, RadiationHistory: n Encounter Type: Initial Additional signs and symptoms: na ORDERING SYSTEM PROVIDED DIAGNOSIS CODES: COMPARISON: None FINDINGS: Trachea, mediastinum and heart size are unremarkable. No infiltrate or nodule or effusion or pneumothorax is noted. Diaphragm and bony elements are intact. IMPRESSION: Nonacute PA chest. Workstation ID: [id number] Dictated by: KATHLEEN MOHR on SatDec 25, 2024 3:11:40 PM EDT Transcribed by: KATHLEEN MOHR on SatDec 25, 2024 3:11:40 PM EDT Finalized by: KATHLEEN MOHR on SatDec 25, 2024 3:11:40 PM EDT [facility] Comment on above: Order Comment: Injur y/Trauma or Illness?:Illness/Other How long have you had these symptoms (acute/chronic)?:Acute Reason for exam?:upper chest ache and right shoulder pain worse with inspiration- pt pulled down her bra however artifacts still seen did not repeat due to age and pain not in this area History of cancer?:n Surgeries, chemotherapy, or radiation?:n Type of Exam?:Initial Additional signs and symptoms?:na XR FINGER(S) LEFT 2+ VIEWSon 12-25-2024 XR FINGER(S) LEFT 2+ VIEWS EXAMINATION: XR FINGER(S) LEFT 2+ VIEWS HISTORY: ORDERING SYSTEM PROVIDED HISTORY: 5th finger, TECHNOLOGIST PROVIDED HISTORY: Injury/Trauma Reason for Exam: Pt smashed her finger in between her trunk and very heavy strolled today, has pain and swelling over the PIP joint of the 5th digit of the left hand Cancer History: N Surgery, Radiation History: N Encounter Type: Initial Mechanism of Injury: Crush injury ORDERING SYSTEM PROVIDED DIAGNOSIS CODES: 5th finger. COMPARISON: None. TECHNIQUE: Three coned-down views of the left hand, 5th digit. FINDINGS: Bony alignment appears preserved. No acute fracture is seen. No significant soft tissue swelling. No radiopaque foreign body. IMPRESSION: No acute osseous variation. MPH/lab Workstation ID: [id number] Dictated by: YOANA FAIR on SatDec 25, 2024 3:15:51 PM EDT Transcribed by: NIKOLE THOMPSON on SatDec 25, 2024 3:26:59 PM EDT Finalized by: YOANA FAIR on SatDec 25, 2024 3:35:24 PM EDT [facility] Comment on above: Order Comment: Injur y/Trauma or Illness?:Injury/Trauma How long have you had these symptoms (acute/chronic)?:Acute Reason for exam?:pt smashed her finger in between her trunk and very heavy strolled today, has pain and swelling over the PIP joint of the 5th digit of the left hand History of cancer?:n Surgeries, chemotherapy, or radiation?:n Type of Exam?:Initial Mechanism of injury?:crush injury Pelvic w/ Transvaginalon Pelvic w/ Transvaginal [facility] Services [address] [place] [address] Pelvic w/ Transvaginal MR#: [id number] Acct: [id number] Name: JOHNY FREED Rep #: [id number] : 2000 F 24 From: Sandip De Jesus PCP: CURTIS Mena Status: REG CLI Study: Pelvic w/ Transvaginal Date of Exam: 12/24/24 Exam# [id number] Ordering Dr: Esme Baker PROCEDURE: PELVIC W/ TRANSVAGINAL REASON FOR EXAM: ABNORMAL UTERINE BLEEDING COMPARISON: None. TECHNIQUE: Transvaginal pelvic ultrasound. Color and spectral doppler analysis of the ovaries. FINDINGS: Uterus measures 9.6 x 5.7 x 4.6 cm. Nabothian cysts. Endometrium is 9 mm. Physiologic amount of free fluid in the pelvis. Right ovary measures 2.4 x 2.9 x 2.5 cm. The left measures 2.2 x 2.2 x 1.7 cm. Normal ovarian follicles. DOPPLER: Color Doppler: Normal color flow doppler signal at both ovaries. Spectral Doppler: Normal arterial inflow and venous outflow signal at both ovaries. US/Pelvic w/ Transvaginal IMPRESSION: NORMAL TRANSVAGINAL PELVIC ULTRASOUND WITH DOPPLER. Physiologic amount of free fluid Reading Location: [facility] CC: Dr. Esme Baker MD; CURTIS Mena Fitting Room Associate: Signed Normal [facility] Absolute lymphocyte countOrd ered By: Esme Baker on 12-22-2024 Lymphocytes Auto (Unsp spec) [#/Vol] 1.37 10*3/uL 0.83-4.51 [facility] Absolute neutrophil countOrd ered By: Esme Baker on 12-22-2024 Neutrophils (Bld) [#/Vol] 2.2 10*3/uL 2.0-7.7 [facility] Automated lymphocyte count a s percentage of total leukocytesOrdered By: Esme Baker on 12-22-2024 Lymphocytes/100 WBC Auto (Unsp spec) 33.3 % 19-41 [facility] Basophil percentageOrdered B y: Esme Baker on 12-22-2024 Basophils/100 WBC (Bld) 0.7 % 0-1 [facility] CBC W/Diff, Automatedon 12-12 Absolute Lymph 1.37 X10 3/uL Normal 0.83-4.51 [facility] Comment on above: Performed By: #### L 100.0100 #### [facility] [address] [place], [address] Absolute Neut 2.2 X10 3/uL Normal 2.0-7.7 [facility] Comment on above: Performed By: #### L 100.0100 #### [facility] [address] [place], [address] Basophils/100 WBC (Bld) 0.7 % Normal 0-1 [facility] Comment on above: Performed By: #### L 100.0100 #### [facility] [address] [place], [address] Eosinophils/100 WBC (Bld) 4.9 % Normal 0-5 [facility] Comment on above: Performed By: #### L 100.0100 #### [facility] [address] [place], [address] Erythrocyte distribution width (RBC) [Ratio] 11.9 % Normal 11.6-14.6 [facility] Comment on above: Performed By: #### L 100.0100 #### [facility] [address] [place], [address] Hematocrit (Bld) [Volume fraction] 34.6 % Low 37-47 [facility] Comment on above: Performed By: #### L 100.0100 #### [facility] [address] [place], [address] Hemoglobin (Bld) [Mass/Vol] 11.9 g/dL Low 12.0-15.0 [facility] Comment on above: Performed By: #### L 100.0100 #### [facility] [address] [place], [address] IG% 0.500 Normal 0.0-0.9 [facility] Comment on above: Result Comment: IG% - Immature Granulocytes (promyelocytes, myelocytes and metamyelocytes) > 1% indicates that a LEFT SHIFT is Present. Performed By: #### L 100.0100 #### [facility] [address] [place], [address] Lymphocytes/100 WBC (Bld) 33.3 % Normal 19-41 [facility] Comment on above: Performed By: #### L 100.0100 #### [facility] [address] [place], [address] MCH (RBC) [Entitic mass] 28.2 pg Normal 27.0-32.0 [facility] Comment on above: Performed By: #### L 100.0100 #### [facility] [address] [place], [address] MCHC (RBC) [Mass/Vol] 34.4 g/dL Normal 32-36 [facility] Comment on above: Performed By: #### L 100.0100 #### [facility] [address] [place], [address] MCV (RBC) [Entitic vol] 82.0 fL Normal 81-99 [facility] Comment on above: Performed By: #### L 100.0100 #### [facility] [address] [place], [address] Monocytes/100 WBC (Bld) 8.0 % Normal 0-10 [facility] Comment on above: Performed By: #### L 100.0100 #### [facility] [address] [place], [address] Neutrophils/100 WBC (Bld) 52.6 % Normal 47-70 [facility] Comment on above: Performed By: #### L 100.0100 #### [facility] [address] [place], [address] Nucleated RBC (Bld) [#/Vol] 0 10*3/uL Normal 0-5 [facility] Comment on above: Performed By: #### L 100.0100 #### [facility] [address] [place], [address] Platelet mean volume (Bld) [Entitic vol] 9.9 fL Normal 6.2-12.0 [facility] Comment on above: Performed By: #### L 100.0100 #### [facility] [address] [place], [address] Platelets (Bld) [#/Vol] 279 10*3/uL Normal 150-450 [facility] Comment on above: Performed By: #### L 100.0100 #### [facility] [address] [place], [address] RBC (Bld) [#/Vol] 4.22 10*6/uL Normal 4.2-5.4 [facility] Comment on above: Performed By: #### L 100.0100 #### [facility] [address] [place], [address] RDW SD 35.7 fl Normal 35.1-43.9 [facility] Comment on above: Performed By: #### L 100.0100 #### [facility] [address] [place], [address] WBC (Bld) [#/Vol] 4.1 10*3/uL Low 4.4-11.0 [facility] Comment on above: Performed By: #### L 100.0100 #### [facility] [address] [place], [address] Eosinophil percentageOrdered By: Esme Baker on 12-22-2024 Eosinophils/100 WBC (Bld) 4.9 % 0-5 [facility] Erythrocyte distribution wid th ratioOrdered By: Esme Baker on 12-22-2024 Erythrocyte distribution width (RBC) [Ratio] 11.9 % 11.6-14.6 [facility] Erythrocyte distribution wid th standard deviationOrdered By: Esme Baker on 12-22-2024 Erythrocyte distribution width (RBC) [Entitic vol] 35.7 fL 35.1-43.9 [facility] Erythrocyte distribution width (RBC) [Ratio] 35.7 fl 35.1-43.9 [facility] Hematocrit Auto (Bld) [Volum e fraction]Ordered By: Esme Baker on 12-22-2024 Hematocrit (Bld) [Volume fraction] 34.6 % Low 37-47 [facility] Hemoglobin measurementOrdere d By: Esme Baker on 12-22-2024 Hemoglobin (Bld) [Mass/Vol] 11.9 g/dL Low 12.0-15.0 [facility] Immature granulocytes/100 WB C Auto (Bld)Ordered By: Esme Baker on 12-22-2024 Immature granulocytes/100 WBC (Bld) 0.500 % 0.0-0.9 [facility] Comment on above: IG% - Immature Granu locytes (promyelocytes, myelocytes and metamyelocytes) > 1% indicates that a LEFT SHIFT is Present. L506.1001on 12-22-2024 Vitamin D 25-OH 25.5 ng/mL Low 30-100 [facility] Comment on above: Result Comment: Ariane min D Status Deficiency: <20 ng/mL (50nmol/L) Insufficiency: 20-30 ng/mL (50-75 nmol/L) Sufficiency: 30-100 ng/mL (75-250 nmol/L) Toxicity: >100 ng/mL (>250 nmol/L) Performed By: #### L 506.1001 ####[facility] [id number] [place], [address] Lymphocytes Auto (Unsp spec) [#/Vol]Ordered By: Esme Baker on 12-22-2024 Lymphocytes (Bld) [#/Vol] 1.37 10*3/uL 0.83-4.51 [facility] Lymphocytes/100 WBC Auto (Un sp spec)Ordered By: Esme Baker on 12-22-2024 Lymphocytes/100 WBC (Bld) 33.3 % 19-41 [facility] MCV (mean corpuscular volume ) determinationOrdered By: Esme Baker on 12-22-2024 MCV (RBC) [Entitic vol] 82.0 fL 81-99 [facility] Mean corpuscular hemoglobin (MCH) determinationOrdered By: Esme Baker on 12-22-2024 MCH (RBC) [Entitic mass] 28.2 pg 27.0-32.0 [facility] Mean corpuscular hemoglobin concentration (MCHC) determinationOrdered By: Esme Baker on 12-22-2024 MCHC (RBC) [Mass/Vol] 34.4 g/dL 32-36 [facility] Mean platelet volume determi nationOrdered By: Esme Baker on 12-22-2024 Platelet mean volume (Bld) [Entitic vol] 9.9 fL 6.2-12.0 [facility] Monocyte percentageOrdered B y: Esme Baker on 12-22-2024 Monocytes/100 WBC (Bld) 8.0 % 0-10 [facility] Neutrophil percentageOrdered By: Esme Baker on 12-22-2024 Neutrophils/100 WBC (Bld) 52.6 % 47-70 [facility] Nucleated red blood cell per centageOrdered By: Esme Baker on 12-22-2024 Nucleated RBC/100 WBC (Bld) [Ratio] 0 % 0-5 [facility] [employer] Office Visit Reporton 12-22-2024 [employer] Office Visit Report [facility]'[address], [address] [place] [address] OFFICE VISIT Date of Service: 12/22/24 MR#: [id number] Acct: [id number] Name: JOHNY FREED Rep #: [id number] : 2000 Provider: Dr. Esme orellana MD Age/Sex: 24/F Location: [facility] [place] Status: Signed Intake Vital Signs 01/27/24 13:07 12/22/24 09:34 Height 5 ft 3 in 5 ft 3 in Weight: 138 lb 6 oz BMI 24.5 BP 124/79 H Intake Visit Reasons: possible vaginal prolapse [employer] Required: No Is patient in pain?: No Allergies Latex, Natural Rubber Allergy (Mild, Verified 12/22/24 09:35) Itching hydrocodone (From Vicodin) Allergy (Verified 12/22/24 09:35) other hydromorphone (From Dilaudid) Adverse Reaction (Intermediate, Verified 12/22/24 09:35) passed out Medications ???Medication ???Instructions ???Recorded ???Confirmed ???Type multivit-min no.71-iron fum 28 1 cap PO DAILY 05/16/23 12/22/24 H istory mg-folate no.1 1 mg-dha 300 mg capsule (PNV-[place]) levothyroxine 50 mcg tablet 50 mcg PO QDAY #90 tabs 07/12/24 0 12/22/24 Rx Is last menstrual period known: Yes Last Menstrual Period: 12/08/24 (periods have become shorter after having 2nd baby ) Post menopausal: No Patient : No : Yes [facility] Medical History Autoimmune thyroiditis Vaginal delivery Oligohydramnios Gestational diabetes mellitus (GDM) affecting , antepartum Abnormal glucose affecting Shoulder dystocia during labor and delivery Rh negative status during H/O herpes genitalis Surgical History History of throat surgery History of tonsillectomy [place] teeth extracted Family History Grandmother Ovarian cancer great grandmother Social History (Updated 12/22/24 @ 09:38 by Bethany Webber) adopted: No household members: spouse and children number of children: 2 current occupational status: unemployed current occupation: [employer] pets and animals: Yes pets and animals: dog(s) history of recent travel: No sexually active: Yes Smoking Status: Former smoker quit date: 03/15/21 pack-years: 4 alcohol intake: never substance use type: does not use well-balanced diet: daily or most days caffeine: No eating out: 1-3 times/week during the past year weight has: remained stable what type of physical activity do you participate in: walking frequency: daily duration: 30-45 minutes/day stacey/taoism: Temple seatbelt use: always do you feel safe at home: Yes additional social history: Shawn Torres HPI possible vaginal prolapse Details: JOHNY FREED is a 24 year old who presents for pelvic pain and possible prolapse. she co cramping feeling like her period, feels a bulge, she has been tyring kegel exercises. she feels like it has helped some of the pelvi pain she has been doing it for a few weeks. she hasn't never seen a PFPT. Female Reproductive History Last Menstrual Period: 12/08/24 (periods have become shorter after having 2nd baby ) Cycle Length: 21-35 (20-22) Bleeding Duration: 5 Frequency of changing protection: 1-2 hours Associated symptoms: cramping History 2 Elective abortions Hx Para 2 Spontaneous abortions Hx # Term Pregnancies Ectopic pregnancies Hx # Pregnancies Multiple births # of living children 2 Past Pregnancies Del. Date Name GA/Weeks Outcome Route Bth Weight Infant Gen Labor Lgth Anesthesia Del Locatn Provider FOB 11/07/21 Tye 39 live - full term 8#[facility] Kate 37 live - full term 6lbs 14oz Female [facility] rcanthony Delivery Date: 11/07/21 Last Updated by: Esme Baker MD IOL- small pelvis, shoulder dystocia and clavicle fracture Delivery Date: 12/17/23 Last Updated by: Nicole Mehta IOL oligo [email or web address] ROS Const Constitutional: Denies fatigue, fever(s), headache(s), increased appetite, poor appetite, weight gain or weight loss Cardio Card: Denies chest pain Resp Resp: Denies cough or dyspnea GI GI: Reports as per HPI; Denies abdominal pain, constipation, nausea or vomiting : Reports as per HPI; Denies difficulty voiding, dysuria, nipple discharge, urinary frequency, urinary incontinence, urinary hesitancy, urinary urgency, vaginal discharge, vaginal dryness, vaginal odor or vaginal pruritus Skin Skin/Breast: Denies change in hair, breast mass, breast pain, breast skin changes or nipple discharge Exam Const General: cooperative, healthy appearing, comfortable, no acute distress and well developed Nutritional Appearance: aver (more content not included)... Normal [facility] Platelet countOrdered By: Luciano Baker on 12-22-2024 Platelets (Bld) [#/Vol] 279 10*3/uL 150-450 [facility] RBC Auto (Bld) [#/Vol]Ordere d By: Esme Baker on 12-22-2024 RBC (Bld) [#/Vol] 4.22 10*6/uL 4.2-5.4 [facility] Vitamin D, 25-hydroxyOrdered By: Esme Baker on 12-22-2024 Vitamin D 25-Hydroxy 25.5 ng/mL Low 30-100 [facility] Comment on above: Vitamin D StatusDefi ciency: <20 ng/mL (50nmol/L)Insufficiency: 20-30 ng/mL (50-75 nmol/L)Sufficiency: 30-100 ng/mL (75-250 nmol/L)Toxicity: >100 ng/mL (>250 nmol/L) White blood cell (WBC) count Ordered By: Esme Baker on 12-22-2024 WBC (Bld) [#/Vol] 4.1 10*3/uL Low 4.4-11.0 [facility] CBC (INCLUDES DIFF/PLT)on Basophils (Bld) [#/Vol] 0.051 10*3/uL Normal 0-200 [facility] Comment on above: Performed By: #### 1 6802, 866, 927, 6399, 48913, 899, 7573, 622 #### [facility] [address] , [address] [place] [id number] Health Sanitarian: Michele Lewis MD Basophils/100 WBC (Bld) 1.1 % Normal [facility] Comment on above: Performed By: #### 1 6802, 866, 927, 6399, 07079, 899, 7573, 622 #### [facility] [address] [address] Health Sanitarian: Michele Lewis MD Eosinophils (Bld) [#/Vol] 0.198 10*3/uL Normal 15-500 [facility] Comment on above: Performed By: #### 1 6802, 866, 927, 6399, 91304, 899, 7573, 622 #### [facility] of [place] [address] Health Sanitarian: Michele Lewis MD Eosinophils/100 WBC (Bld) 4.3 % Normal [facility] Comment on above: Performed By: #### 1 6802, 866, 927, 6399, 76064, 899, 7573, 622 #### [facility] of [place] [address] Health Sanitarian: Michele Lewis MD Erythrocyte distribution width (RBC) [Ratio] 12.1 % Normal 11.0-15.0 [facility] Comment on above: Performed By: #### 1 6802, 866, 927, 6399, 66276, 899, 7573, 622 #### [facility] of [place] [address] Health Sanitarian: Michele Lewis MD Hematocrit (Bld) [Volume fraction] 35.5 % Normal 35.0-45.0 [facility] Comment on above: Performed By: #### 1 6802, 866, 927, 6399, 84785, 899, 7573, 622 #### [facility] of [place] [address] Health Sanitarian: Michele Lewis MD Hemoglobin (Bld) [Mass/Vol] 11.6 g/dL Low 11.7-15.5 [facility] Comment on above: Performed By: #### 1 6802, 866, 927, 6399, 74976, 899, 7573, 622 #### [facility] [place] [address] Health Sanitarian: Michele Lewis MD Lymphocytes (Bld) [#/Vol] 1.67 10*3/uL Normal 850-3900 [facility] Comment on above: Performed By: #### 1 6802, 866, 927, 6399, 18747, 899, 7573, 622 #### [facility] [address], [address] [place] [address] Health Sanitarian: Michele Lewis MD Lymphocytes/100 WBC (Bld) 36.3 % Normal [facility] Comment on above: Performed By: #### 1 6802, 866, 927, 6399, 29520, 899, 7573, 622 #### [facility] [place] [address] Health Sanitarian: Michele Lewis MD MCH (RBC) [Entitic mass] 28.2 pg Normal 27.0-33.0 [facility] Comment on above: Performed By: #### 1 6802, 866, 927, 6399, 03500, 899, 7573, 622 #### [facility] [address], [address] [place] [address] Health Sanitarian: Michele Lewis MD MCHC (RBC) [Mass/Vol] 32.7 g/dL Normal 32.0-36.[address] [facility] Comment on above: Result Comment: For adults, a slight decrease in the calculated MCHC value (in the range of 30 to 32 g/dL) is most likely not clinically significant; however, it should be interpreted with caution in correlation with other red cell parameters and the patient's clinical condition. Performed By: #### 1 6802, 866, 927, 6399, 19567, 899, 7573, 622 #### [facility] [place] [address] Health Sanitarian: Michele Lewis MD MCV (RBC) [Entitic vol] 86.2 fL Normal 80.0-100.0 [facility] Comment on above: Performed By: #### 1 6802, 866, 927, 6399, 83874, 899, 7573, 622 #### [facility] [place] [address] Health Sanitarian: Michele Lewis MD Monocytes (Bld) [#/Vol] 0.299 10*3/uL Normal 200-950 [facility] Comment on above: Performed By: #### 1 6802, 866, 927, 6399, 70005, 899, 7573, 622 #### [facility] [place] [address] Health Sanitarian: Michele Lewis MD Monocytes/100 WBC (Bld) 6.5 % Normal [facility] Comment on above: Performed By: #### 1 6802, 866, 927, 6399, 71540, 899, 7573, 622 #### [facility] [place] [address] Health Sanitarian: Michele Lewis MD Neutrophils (Bld) [#/Vol] 2.383 10*3/uL Normal 6981-7793 [facility] Comment on above: Performed By: #### 1 6802, 866, 927, 6399, 76932, 899, 7573, 622 #### [facility] [place] [address] Health Sanitarian: Michele Lewis MD Neutrophils/100 WBC (Bld) 51.8 % Normal [facility] Comment on above: Performed By: #### 1 6802, 866, 927, 6399, 48080, 899, 7573, 622 #### [facility] [place] [address] Health Sanitarian: Michele Lewis MD Platelet mean volume (Bld) [Entitic vol] 9.9 fL Normal 7.5-12.5 [facility] Comment on above: Performed By: #### 1 6802, 866, 927, 6399, 21759, 899, 7573, 622 #### [facility] [place] [address] Health Sanitarian: Michele Lewis MD Platelets (Bld) [#/Vol] 305 10*3/uL Normal 140-400 [facility] Comment on above: Performed By: #### 1 6802, 866, 927, 6399, 48077, 899, 7573, 622 #### [facility] of [address], [address] [place] [address] Health Sanitarian: Michele Lewis MD RBC (Bld) [#/Vol] 4.12 10*6/uL Normal 3.80-5.10 [facility] Comment on above: Performed By: #### 1 6802, 866, 927, 6399, 81229, 899, 7573, 622 #### [facility] [place] [address] Health Sanitarian: Michele Lewis MD WBC (Bld) [#/Vol] 4.6 10*3/uL Normal 3.8-10.8 [facility] Comment on above: Performed By: #### 1 6802, 866, 927, 6399, 94185, 899, 7573, 622 #### [facility] [place] [address] Health Sanitarian: Michele Lewis MD COMPREHENSIVE METABOLIC PANE L W/ANION GAPon 11-26-2024 Albumin [Mass/Vol] 4.5 g/dL Normal 3.6-5.1 [facility] Comment on above: Performed By: #### 1 6802, 866, 927, 6399, 13048, 899, 7573, 622 #### [facility] of [address], [address] [place] [address] Health Sanitarian: Michele Lewis MD ALP [Catalytic activity/Vol] 53 U/L Normal 31-125 [facility] Comment on above: Performed By: #### 1 6802, 866, 927, 6399, 55561, 899, 7573, 622 #### [facility] of [address], [address] [place] [address] Health Sanitarian: Michele Lewis MD ALT [Catalytic activity/Vol] 5 U/L Low 6-29 [facility] Comment on above: Performed By: #### 1 6802, 866, 927, 6399, 97356, 899, 7573, 622 #### [facility] [address], [address] [place] [address] Health Sanitarian: Michele Lewis MD AST [Catalytic activity/Vol] 10 U/L Normal 10-30 [facility] Comment on above: Performed By: #### 1 6802, 866, 927, 6399, 62007, 899, 7573, 622 #### [facility] [place] [address] Health Sanitarian: Michele Lewis MD Bilirubin [Mass/Vol] 0.4 mg/dL Normal 0.2-1.2 [facility] Comment on above: Performed By: #### 1 6802, 866, 927, 6399, 87547, 899, 7573, 622 #### [facility] [place] [address] Health Sanitarian: Michele Lewis MD Calcium [Mass/Vol] 8.9 mg/dL Normal 8.6-10.2 [facility] Comment on above: Performed By: #### 1 6802, 866, 927, 6399, 47914, 899, 7573, 622 #### [facility] [place] [address] Health Sanitarian: Michele Lewis MD Chloride [Moles/Vol] 105 mmol/L Normal 98-110 [facility] Comment on above: Performed By: #### 1 6802, 866, 927, 6399, 95762, 899, 7573, 622 #### [facility] [place] [address] Health Sanitarian: Michele Lewis MD CO2 [Moles/Vol] 23 mmol/L Normal 20-32 [facility] Comment on above: Performed By: #### 1 6802, 866, 927, 6399, 60403, 899, 7573, 622 #### [facility] [place] [address] Health Sanitarian: Michele Lewis MD Creatinine [Mass/Vol] 0.63 mg/dL Normal 0.50-0.[address] [facility] Comment on above: Performed By: #### 1 6802, 866, 927, 6399, 32453, 899, 7573, 622 #### [facility] [place] [address] Health Sanitarian: Michele Lewis MD ELECTROLYTE BALANCE 10 mmol/L (calc) Normal 7-17 [facility] Comment on above: Performed By: #### 1 6802, 866, 927, 6399, 56185, 899, 7573, 622 #### [facility] [place] [address] Health Sanitarian: Michele Lewis MD GFR/1.73 sq M.predicted among non-blacks MDRD (S/P/Bld) [Vol rate/Area] 127 mL/min/{1.73_m2} Normal > OR = 60 [facility] Comment on above: Performed By: #### 1 6802, 866, 927, 6399, 15761, 899, 7573, 622 #### [facility] [place] [address] Health Sanitarian: Michele Lewis MD Glucose [Mass/Vol] 90 mg/dL Normal 65-99 [facility] Comment on above: Result Comment: Fasting reference interval Performed By: #### 1 6802, 866, 927, 6399, 90187, 899, 7573, 622 #### [facility] [place] [address] Health Sanitarian: Michele Lewis MD Potassium [Moles/Vol] 4.0 mmol/L Normal 3.5-5.[address] [facility] Comment on above: Performed By: #### 1 6802, 866, 927, 6399, 50166, 899, 7573, 622 #### [facility] of [place] [address] Health Sanitarian: Michele Lewis MD Protein [Mass/Vol] 7.2 g/dL Normal 6.1-8.1 [facility] Comment on above: Performed By: #### 1 6802, 866, 927, 6399, 41851, 899, 7573, 622 #### [facility] of [address], [address] [place] [address] Health Sanitarian: Michele Lewis MD Sodium [Moles/Vol] 138 mmol/L Normal 135-146 [facility] Comment on above: Performed By: #### 1 6802, 866, 927, 6399, 70363, 899, 7573, 622 #### [facility] [place] [address] Health Sanitarian: Michele Lewis MD Urea nitrogen [Mass/Vol] 11 mg/dL Normal 7-25 [facility] Comment on above: Performed By: #### 1 6802, 866, 927, 6399, 10029, 899, 7573, 622 #### [facility] [place] [address] Health Sanitarian: Michele Lewis MD FERRITINon 11-26-2024 Ferritin [Mass/Vol] 9 ng/mL Low 16-154 [facility] Comment on above: Performed By: #### 1 6802, 866, 927, 6399, 03799, 899, 7573, 622 #### [facility] [place] [address] Health Sanitarian: Michele Lewis MD HEMOGLOBIN A1c WITH eAGon eAG (mmol/L) 5.5 mmol/L Normal [facility] Comment on above: Performed By: #### 1 6802, 866, 927, 6399, 93167, 899, 7573, 622 #### [facility] [place] [address] Health Sanitarian: Michele Lewis MD HEMOGLOBIN A1c 5.1 % of total Hgb Normal <5.7 [facility] Comment on above: Result Comment: For the purpose of screening for the presence of diabetes: <5.7% Consistent with the absence of diabetes 5.7-6.4% Consistent with increased risk for diabetes (prediabetes) > or =6.5% Consistent with diabetes This assay result is consistent with a decreased risk of diabetes. Currently, no consensus exists regarding use of hemoglobin A1c for diagnosis of diabetes in children. According to [place] [employer] Association (ADA) guidelines, hemoglobin A1c <7.0% represents optimal control in non- diabetic patients. Different metrics may apply to specific patient populations. Standards of Medical Care in Diabetes(ADA). Performed By: #### 1 6802, 866, 927, 6399, 07891, 899, 7573, 622 #### [facility] [place] [address] Health Sanitarian: Michele Lewis MD Magnesium [Mass/Vol] 100 mg/dL Normal [facility] Comment on above: Performed By: #### 1 6802, 866, 927, 6399, 28231, 899, 7573, 622 #### [facility] [place] [address] Health Sanitarian: Michele Lewis MD IRON AND TOTAL IRON BINDING CAPACITYon 11-26-2024 % SATURATION 15 % (calc) Low 16-45 [facility] Comment on above: Performed By: #### 1 6802, 866, 927, 6399, 04844, 899, 7573, 622 #### [facility] [place] [address] Health Sanitarian: Michele Lewis MD IRON BINDING CAPACITY 391 mcg/dL (calc) Normal 250-450 [facility] Comment on above: Performed By: #### 1 6802, 866, 927, 6399, 95667, 899, 7573, 622 #### [facility] of [place] [address] [address] , [address] [place] [address] Health Sanitarian: Michele Lewis MD IRON, TOTAL 59 mcg/dL Normal 40-190 [facility] Comment on above: Performed By: #### 1 6802, 866, 927, 6399, 31148, 899, 7573, 622 #### [facility] [place] [address] [place] [address] Health Sanitarian: Michele Lewis MD MAGNESIUMon 11-26-2024 Magnesium [Mass/Vol] 1.9 mg/dL Normal 1.5-2.5 [facility] Comment on above: Performed By: #### 1 6802, 866, 927, 6399, 31182, 899, 7573, 622 #### [facility] [address] [place] [address] Health Sanitarian: Michele Lewis MD T4, FREEon 11-26-2024 Free T4 [Mass/Vol] 1.2 ng/dL Normal 0.8-1.8 [facility] Comment on above: Performed By: #### 1 6802, 866, 927, 6399, 94146, 899, 7573, 622 #### [facility] of [place] [address] [address] [place] [address] Health Sanitarian: Michele Lewis MD TSHon 11-26-2024 TSH Qn 2.26 m[IU]/L Normal [facility] Comment on above: Result Comment: Refe rence Range > or = 20 Years 0.40-4.50 Ranges First trimester 0.26-2.66 Second trimester 0.55-2.73 Third trimester 0.43-2.91 Performed By: #### 1 6802, 866, 927, 6399, 41030, 899, 7573, 622 #### [facility] [place] [address] [address] [place] [address] Health Sanitarian: Michele Lewis MD VITAMIN B12on 11-26-2024 Cobalamin (Vitamin B12) [Mass/Vol] 341 pg/mL Normal 200-1100 [facility] Comment on above: Result Comment: Please Note: Although the reference range for vitamin B12 is 200-1100 pg/mL, it has been reported that between 5 and 10% of patients with values between 200 and 400 pg/mL may experience neuropsychiatric and hematologic abnormalities due to occult B12 deficiency; less than 1% of patients with values above 400 pg/mL will have symptoms. Performed By: #### 1 6802, 866, 927, 6399, 55766, 899, 7573, 622 #### [facility] [address] [facility], [address] [place] [address] Health Sanitarian: Michele Lewis MD Direct serum free thyroxine (FT4) measurementOrdered By: Anson Richter on 09-14-2024 Free T4 [Mass/Vol] 1.08 ng/dL 0.76-1.46 [facility] T4 Free Directon 09-14-2024 T4 FREE DIRECT 1.08 ng/dL Normal 0.76-1.46 [facility] Comment on above: Performed By: #### L 506.0400, L501.9520 #### [facility] [address] [place], [place], [address] TSH QnOrdered By: Anson Richter on 09-14-2024 Thyroid Stimulating Hormone (TSH) 2.470 uIU/mL 0.358-3.740 [facility] Thyroid Stim Hormone (TSH)on 09-14-2024 TSH 2.470 uIU/mL Normal 0.358-3.740 [facility] Comment on above: Performed By: #### L 506.0400, L501.9520 #### [facility] [address] [place], [place], [address] Bacteria identifiedon 2023 Bacteria identified Cx Nom (U) Test: Urine Culture Specimen Source: Clean Catch/Voided Specimen Type: Urine Specimen Date: 08/06/20241702 Result Date: 08/07/20242040 Result Status: Final result Abnormal: No Resulting Lab: [facility] [address] [facility] [address] CULTURE Normal genitourinary gloria Normal [facility] Comment on above: Performed By: #### 6 30-4 #### POONAM Pires ([id number]) [facility] ([facility]) [address] [place] [address] POCT UA Automated manually r esultedOrdered By: Jake Saunders on 08-06-2024 Appearance (U) Clear Clear [facility] Glucose Test strip (U) [Mass/Vol] Negative NEGATIVE mg/dl [facility] Hemoglobin Ql (U) Negative NEGATIVE [facility] Interpretation and review of laboratory results Abnormal [facility] Leukocyte esterase Test strip Ql (U) Negative NEGATIVE [facility] Nitrite Ql (U) Negative NEGATIVE [facility] pH (U) 7.0 [pH] No Reference Range Established [facility] POC Bilirubin, Urine Negative NEGATIVE [facility] POC Color, Urine Yellow Straw, Yellow, Light-Yellow [facility] POC Ketones, Urine Negative NEGATIVE mg/dl [facility] POC Protein, Urine Negative NEGATIVE, 30 (1+) mg/dl [facility] POC Specific [place], Urine 1.025 1.005 - 1.035 [facility] POC Urobilinogen, Urine 2.0 Abnormal 0.2, 1.0 EU/DL [facility] Free T3on 07-09-2024 Free T3 [Mass/Vol] 2.0 pg/mL Low 2.18-3.98 [facility] Comment on above: Order Comment: PER Oneil RICHTER ORDER Performed By: #### L 501.87070, L501.9520, L506.0400 #### [facility] [address] [place], [address] T4 Free Directon 07-09-2024 T4 FREE DIRECT 0.70 ng/dL Low 0.76-1.46 [facility] Comment on above: Order Comment: PER Oneil RICHTER ORDER Performed By: #### L 501.72144, L501.9520, L506.0400 #### [facility] [address] [place], [address] Thyroid Stim Hormone (TSH)on 07-09-2024 TSH 7.370 uIU/mL High 0.358-3.740 [facility] Comment on above: Order Comment: PER P T-DORIE RICHTER ORDER Performed By: #### L 501.36422, L501.9520, L506.0400 #### [facility] [address] [place], [address] T4 Free Directon 06-03-2024 T4 FREE DIRECT 0.99 ng/dL Normal 0.76-1.46 [facility] Comment on above: Performed By: #### L 501.9520, L506.0400 #### [facility] [address] [place], [address] Thyroid Stim Hormone (TSH)on 06-03-2024 TSH 0.063 uIU/mL Low 0.358-3.740 [facility] Comment on above: Performed By: #### L 501.9520, L506.0400 #### [facility] [address] [place], [address] CBC W Auto Differential pane l (Bld)on 02-26-2024 Basophils (Bld) [#/Vol] 0.07 x10*3/uL Normal 0.00-0.10 [facility] Comment on above: Performed By: #### 5 7021-8 #### DEANGELO CARDOZO ([id number]) [facility] ([facility]) [address] [place] [address] Basophils/100 WBC (Bld) 1.4 % Normal 0.0-2.0 [facility] Comment on above: Performed By: #### 5 7021-8 #### DEANGELO CARDOZO ([id number]) [facility] ([facility]) [address] [place] [address] Eosinophils (Bld) [#/Vol] 0.26 x10*3/uL Normal 0.00-0.70 [facility] Comment on above: Performed By: #### 5 7021-8 #### DEANGELO CARDOZO ([id number]) [facility] ([facility]) [address] [place] [address] Eosinophils/100 WBC (Bld) 5.2 % Normal 0.0-6.0 [facility] Comment on above: Performed By: #### 7021-8 #### DEANGELO CARDOZO ([id number]) [facility] ([facility]) [address] [place] [address] Erythrocyte distribution width (RBC) [Ratio] 13.3 % Normal 11.5-14.5 [facility] Comment on above: Performed By: #### 5 7021-8 #### DEANGLEO CARDOZO ([id number]) [facility] ([facility]) [address] [place], [place] [id number] Hematocrit (Bld) [Volume fraction] 38.2 % Normal 36.0-46.0 [facility] Comment on above: Performed By: #### 5 7021-8 #### DEANGELO CARDOZO ([id number]) [facility] ([facility]) [address] [place] [address] Hemoglobin (Bld) [Mass/Vol] 12.5 g/dL Normal 12.0-16.0 [facility] Comment on above: Performed By: #### 5 7021-8 #### DEANGELO CARDOZO ([id number]) [facility] ([facility]) [address] [place] [address] Immature granulocytes (Bld) [#/Vol] 0.02 x10*3/uL Normal 0.00-0.70 [facility] Comment on above: Performed By: #### 5 7021-8 #### DEANGELO CARDOZO ([id number]) [facility] ([facility]) [address] [place] [address] Immature granulocytes/100 WBC (Bld) 0.4 % Normal 0.0-0.9 [facility] Comment on above: Result Comment: Jannie ture Granulocyte Count (IG) includes promyelocytes, myelocytes and metamyelocytes but does not include bands. Percent differential counts (%) should be interpreted in the context of the absolute cell counts (cells/UL). Performed By: #### 5 7021-8 #### DEANGELO CARDOZO ([id number]) [facility] ([facility]) [address] [place] [address] Lymphocytes (Bld) [#/Vol] 1.87 x10*3/uL Normal 1.20-4.80 [facility] Comment on above: Performed By: #### 5 7021-8 #### DEANGELO CARDOZO ([id number]) [facility] ([facility]) [address] [place] [address] Lymphocytes/100 WBC (Bld) 37.3 % Normal 13.0-44.0 [facility] Comment on above: Performed By: #### 5 7021-8 #### DEANGELO CARDOZO ([id number]) [facility] ([facility]) [address] [place] [address] MCH (RBC) [Entitic mass] 26.9 pg Normal 26.0-34.0 [facility] Comment on above: Performed By: #### 5 7021-8 #### DEANGELO CARDOZO ([id number]) [facility] ([facility]) [address] [place] [address] MCHC (RBC) [Mass/Vol] 32.7 g/dL Normal 32.0-36.0 [facility] Comment on above: Performed By: #### 5 7021-8 #### DEANGELO CARDOZO ([id number]) [facility] ([facility]) [address] [place] [address] MCV (RBC) [Entitic vol] 82 fL Normal 80-100 [facility] Comment on above: Performed By: #### 5 7021-8 #### DEANGELO CARDOZO ([id number]) [facility] ([facility]) [address] [place] [address] Monocytes (Bld) [#/Vol] 0.34 x10*3/uL Normal 0.10-1.00 [facility] Comment on above: Performed By: #### 5 7021-8 #### DEANGELO CARDOZO ([id number]) [facility] ([facility]) [address] [place] [address] 48494 Monocytes/100 WBC (Bld) 6.8 % Normal 2.0-10.0 [facility] Comment on above: Performed By: #### 5 7021-8 #### DEANGELO CARDOZO ([id number]) [facility] ([facility]) [address] [place] [address] 45213 Neutrophils (Bld) [#/Vol] 2.46 x10*3/uL Normal 1.20-7.70 [facility] Comment on above: Result Comment: Perc ent differential counts (%) should be interpreted in the context of the absolute cell counts (cells/uL). Performed By: #### 5 7021-8 #### DEANGELO CARDOZO ([id number]) [facility] ([facility]) [address] [place] [address] 59365 Neutrophils/100 WBC (Bld) 48.9 % Normal 40.0-80.0 [facility] Comment on above: Performed By: #### 5 7021-8 #### DEANGELO CARDOZO ([id number]) [facility] ([facility]) [address] [place] [address] 91535 Nucleated RBC/100 WBC (Bld) [Ratio] 0.0 /100 WBCs Normal 0.0-0.0 [facility] Comment on above: Performed By: #### 5 7021-8 #### DEANGELO CARDOZO ([id number]) [facility] ([facility]) [address] [place] [address] 32386 Platelets (Bld) [#/Vol] 271 x10*3/uL Normal 150-450 [facility] Comment on above: Performed By: #### 5 7021-8 #### DEANGELO CARDOZO ([id number]) [facility] ([facility]) [address] [place] [address] 36910 RBC (Bld) [#/Vol] 4.64 x10*6/uL Normal 4.00-5.20 [facility] Comment on above: Performed By: #### 5 7021-8 #### DEANGELO CARDOZO ([id number]) [facility] ([facility]) [address] [place] [address] 87805 WBC (Bld) [#/Vol] 5.0 x10*3/uL Normal 4.4-11.3 [facility] Comment on above: Performed By: #### 5 7021-8 #### DEANGELO CARDOZO ([id number]) [facility] ([facility]) [address] [place], [place] [id number] Cobalaminson 02-26-2024 Cobalamin (Vitamin B12) [Mass/Vol] 407 pg/mL Normal 211-911 [facility] Comment on above: Performed By: #### 2 132-9 #### DEANGELO CARDOZO ([id number]) [facility] ([facility]) [address] [place], [place] [id number] Comprehensive metabolic 2000 panelon 02-26-2024 Albumin BCP dye [Mass/Vol] 4.6 g/dL Normal 3.4-5.0 [facility] Comment on above: Performed By: #### 2 4323-8 #### DEANGELO CARDOZO ([id number]) [facility] ([facility]) [address] [place] [address] 54310 ALP [Catalytic activity/Vol] 82 U/L Normal 33-110 [facility] Comment on above: Performed By: #### 2 4323-8 #### DEANGELO CARDOZO ([id number]) [facility] ([facility]) [address] [place] [address] 33001 ALT With P-5'-P [Catalytic activity/Vol] 18 U/L Normal 7-45 [facility] Comment on above: Result Comment: Martha ents treated with Sulfasalazine may generate falsely decreased results for ALT. Performed By: #### 2 4323-8 #### DEANGELO CARDOZO ([id number]) [facility] ([facility]) [address] [place] [address] 95476 Anion gap [Moles/Vol] 14 mmol/L Normal 10-20 [facility] Comment on above: Performed By: #### 2 432-8 #### DEANGELO CARDOZO ([id number]) [facility] ([facility]) [address] [place] [address] AST With P-5'-P [Catalytic activity/Vol] 17 U/L Normal 9-39 [facility] Comment on above: Performed By: #### 2 432-8 #### DEANGELO CARDOZO ([id number]) [facility] ([facility]) [address] [place] [address] 46855 Bilirubin [Mass/Vol] 0.6 mg/dL Normal 0.0-1.2 [facility] Comment on above: Performed By: #### 2 4322-8 #### DEANGELO CARDOZO ([id number]) [facility] ([facility]) [address] [place] [address] 65515 Calcium [Mass/Vol] 8.9 mg/dL Normal 8.6-10.3 [facility] Comment on above: Performed By: #### 2 4322-8 #### DEANGELO CARDOZO ([id number]) [facility] ([facility]) [address] [place] [address] Chloride [Moles/Vol] 106 mmol/L Normal 98-107 [facility] Comment on above: Performed By: #### 2 432-8 #### DEANGELO CARDOZO ([id number]) [facility] ([facility]) [address] [place] [address] CO2 [Moles/Vol] 23 mmol/L Normal 21-32 [facility] Comment on above: Performed By: #### 2 432-8 #### DEANGELO CARDOZO ([id number]) [facility] ([facility]) [address] [place] [address] 14585 Creatinine [Mass/Vol] 0.91 mg/dL Normal 0.50-1.05 [facility] Comment on above: Performed By: #### 2 432-8 #### DEANGELO CARDOZO ([id number]) [facility] ([facility]) [address] [place] [address] GFR/1.73 sq M.predicted MDRD (S/P/Bld) [Vol rate/Area] mL/min/{1.73_m2} Normal >60 [facility] Comment on above: Result Comment: Calc ulations of estimated GFR are performed using the 2020 CKD-EPI Study Refit equation without the race variable for the IDMS-Traceable creatinine methods. https://jasn.asnjournals.org/content//ASN.75369 72816 Performed By: #### 2 4323-8 #### DEANGELO CARDOZO ([id number]) [facility] ([facility]) [address] [place] [address] 30584 Glucose [Mass/Vol] 87 mg/dL Normal 74-99 [facility] Comment on above: Performed By: #### 2 4323-8 #### DEANGELO CARDOZO ([id number]) [facility] ([facility]) [address] [place] [address] 29987 Potassium [Moles/Vol] 3.9 mmol/L Normal 3.5-5.3 [facility] Comment on above: Performed By: #### 2 4323-8 #### DEANGELO CARDOZO ([id number]) [facility] ([facility]) [address] [place] [address] 51742 Protein [Mass/Vol] 7.6 g/dL Normal 6.4-8.2 [facility] Comment on above: Performed By: #### 2 4323-8 #### DEANGELO CARDOZO ([id number]) [facility] ([facility]) [address] [place] [address] 37377 Sodium [Moles/Vol] 139 mmol/L Normal 136-145 [facility] Comment on above: Performed By: #### 2 4323-8 #### DEANGELO CARDOZO ([id number]) [facility] ([facility]) [address] [place] [address] 46465 Urea nitrogen [Mass/Vol] 18 mg/dL Normal 6-23 [facility] Comment on above: Performed By: #### 2 4323-8 #### DEANGELO CARDOZO ([id number]) [facility] ([facility]) [address] [place] [address] 43329 Iron and Iron binding capaci ty panelon 02-26-2024 Iron [Mass/Vol] 110 ug/dL Normal 35-150 [facility] Comment on above: Performed By: #### 5 0190-8 #### DEANGELO CARDOZO ([id number]) [facility] ([facility]) [address] [place] [address] 32165 Iron binding capacity [Mass/Vol] 397 ug/dL Normal 240-445 [facility] Comment on above: Performed By: #### 5 0190-8 #### DEANGELO CARDOZO ([id number]) [facility] ([facility]) [address] [place] [address] 52231 Iron binding capacity.unsaturated [Mass/Vol] 287 ug/dL Normal 110-370 [facility] Comment on above: Performed By: #### 5 0190-8 #### DEANGELO CARDOZO ([id number]) [facility] ([facility]) [address] [place] [address] 46242 Iron saturation [Mass fraction] 28 % Normal 25-45 [facility] Comment on above: Performed By: #### 5 0190-8 #### DEANGELO CARDOZO ([id number]) [facility] ([facility]) [address] [place], [place] [id number] Thyrotropinon 02-26-2024 TSH Qn 1.82 m[IU]/L Normal 0.44-3.98 [facility] Comment on above: Order Comment: TSH t esting is performed using different testing methodology at [facility] than at other [facility]. Direct result comparisons should only be made within the same method. Performed By: #### 3 016-3 #### DEANGELO CARDOZO ([id number]) [facility] ([facility]) [address] [place] [address] 99967 Thyroxine.freeon 02-26-2024 Free T4 [Mass/Vol] 0.62 ng/dL Normal 0.61-1.12 [facility] Comment on above: Order Comment: Thyro xine Free testing is performed using different testing methodology at [facility] than at other [facility]. Direct result comparisons should only be made within the same method. Biotin can cause falsely elevated free T4 results. Patients taking a Biotin dose of up to 10 mg/day should refrain from taking Biotin for 24 hours before sample collection. Patient taking a Biotin dose of >10 mg/day should consult with their physician or the laboratory before the blood draw. Performed By: #### 3 024-7 #### DEANGELO CARDOZO ([id number]) [facility] ([facility]) [address] [place] [address] Triiodothyronine.freeon 02-11 Free T3 [Mass/Vol] 3.1 pg/mL Normal 2.3-4.2 [facility] Comment on above: Performed By: #### 3 051-0 #### POONAM Pires ([id number]) [facility] ([facility]) [id number] [place] [address] 92556 Cervical or vagninal specime n microscopic examination by cytology stain (reported asOrdered By: Esme Baker on 01-21-2024 Cytology report Cyto stain Doc (Cvx/Vag) Comment . [facility] Comment on above: The Pap smear is a s creening test designed to aid in thedetection of premalignant and malignant conditions of theuterine cervix. It is not a diagnostic procedure andshould not be used as the sole means of detecting cervicalcancer. Both false-positive and false-negative reports dooccur. Laboratory - CytologyOrdered By: Esme Baker on 01-21-2024 [employer] Cyto stain Nom (Cvx/Vag) [ID] Comment . [facility] Comment on above: Ariana Zhongt echnologist (ASCP) Laboratory - Miscellaneous t estsOrdered By: Esme Baker on 01-21-2024 Service comment (Unsp spec) [Interp] . . [facility] No Panel InformationOrdered By: sEme Baker on 01-21-2024 Human Papillomavirus Screen Comment . [facility] Comment on above: The HPV DNA reflex c dolly were not met with this specimenresult therefore, no HPV testing was performed.Performed at: [address] [place] [id number] Director: Kenyetta Ibarra MD, Phone: [phone] Thin prep Papanicolaou smear with manual screeningOrdered By: Esme Baker on 01-21-2024 Thin prep Papanicolaou smear with manual screening Comment . [facility] Comment on above: NEGATIVE FOR INTRAEP ITHELIAL LESION OR MALIGNANCY. This liquid based Th inPrep(R) pap test was screened withthe use of an image guided system. Basophil percentageOrdered B y: Brandi Pacheco on 12-18-2023 Hemoglobin (Bld) [Mass/Vol] 10.4 g/dL 12.0-15.0 [facility] WBC (Bld) [#/Vol] 8.0 10*3/uL 4.4-11.0 [facility] Determination of erythrocyte mean corpuscular volume (MCV)Ordered By: Brandi Pacheco on 12-18-2023 MCV (RBC) [Entitic vol] 82.0 fL 81-99 [facility] Erythrocyte distribution wid th ratioOrdered By: Brandi Pacheco on 12-18-2023 Erythrocyte distribution width (RBC) [Ratio] 14.5 % 11.6-14.6 [facility] Erythrocyte distribution wid th standard deviationOrdered By: Brandi Pacheco on 12-18-2023 Erythrocyte distribution width (RBC) [Entitic vol] 43.0 fL 35.1-43.9 [facility] Hematocrit Auto (Bld) [Volum e fraction]Ordered By: Brandi Pacheco on 12-18-2023 Hematocrit (Bld) [Volume fraction] 32.3 % 37-47 [facility] Laboratory - Chemistry and C hemistry - challengeOrdered By: Brandi Pacheco on 12-18-2023 ALT [Catalytic activity/Vol] 21 U/L 13-56 [facility] Laboratory - Hematology and Cell countsOrdered By: Brandi Pacheco on 12-18-2023 MCH (RBC) [Entitic mass] 26.4 pg 27.0-32.0 [facility] MCHC (RBC) [Mass/Vol] 32.2 g/dL 32-36 [facility] Platelet mean volume (Bld) [Entitic vol] 8.5 fL 6.2-12.0 [facility] Platelets (Bld) [#/Vol] 321 10*3/uL 150-450 [facility] No Panel InformationOrdered By: Brandi Pacheco on 12-18-2023 Estimated Creatinine Clearance Calc 129.92 ml/min [facility] Estimated GFR (MDRD) Amer 137 mL/min >60 [facility] Comment on above: GFR Calc Estimated GFR (MDRD) Non-Af Amer 113 mL/min >60 [facility] Comment on above: Non- GFR Calc RBC Auto (Bld) [#/Vol]Ordere d By: Brandi Pacheco on 12-18-2023 RBC (Bld) [#/Vol] 3.94 10*6/uL 4.2-5.4 [facility] Serum or plasma creatinine m easurement (mass/volume)Ordered By: Brandi Pacheco on 12-18-2023 Creatinine [Mass/Vol] 0.68 mg/dL 0.55-1.02 [facility] Comment on above: The validity of the calculated GFR & GFRAA in patients over 70 years has not been determined. Clinical correlation is essential. Serum or plasma uric acid me asurement (mass/volume)Ordered By: Brandi Pacheco on 12-18-2023 Urate [Mass/Vol] 5.5 mg/dL 2.6-6.0 [facility] Comment on above: The drugs N-Acetylcy steine and Metamizole may falsely depress this assay. Thin prep Papanicolaou smear with manual screeningOrdered By: Brandi Pacheco on 12-18-2023 Thin prep Papanicolaou smear with manual screening 18 U/L 15-37 [facility] Thin prep Papanicolaou smear with manual screeningOrdered By: Esme Baker on 12-14-2023 Thin prep Papanicolaou smear with manual screening 94 mg/dL 74-106 [facility] Comment on above: MANAGEMENT OF PATIEN T CARE PER NURSING PROTOCOL Absolute lymphocyte countOrd ered By: Esme Baker on 12-12-2023 Lymphocytes Auto (Unsp spec) [#/Vol] 1.80 10*3/uL 0.83-4.51 [facility] Automated lymphocyte count a s percentage of total leukocytesOrdered By: Esme Baker on 12-12-2023 Lymphocytes/100 WBC Auto (Unsp spec) 19.4 % 19-41 [facility] Basophil percentageOrdered B y: Esme Baker on 12-12-2023 Basophils/100 WBC (Bld) 0.5 % 0-1 [facility] Eosinophils/100 WBC (Bld) 2.2 % 0-5 [facility] Hemoglobin (Bld) [Mass/Vol] 10.6 g/dL 12.0-15.0 [facility] Monocytes/100 WBC (Bld) 6.2 % 0-10 [facility] Neutrophils (Bld) [#/Vol] 6.5 10*3/uL 2.0-7.7 [facility] Neutrophils/100 WBC (Bld) 69.9 % 47-70 [facility] WBC (Bld) [#/Vol] 9.3 10*3/uL 4.4-11.0 [facility] Determination of erythrocyte mean corpuscular volume (MCV)Ordered By: Esme Baker on 12-12-2023 MCV (RBC) [Entitic vol] 82.0 fL 81-99 [facility] Erythrocyte distribution wid th ratioOrdered By: Esme Baker on 12-12-2023 Erythrocyte distribution width (RBC) [Ratio] 14.6 % 11.6-14.6 [facility] Erythrocyte distribution wid th standard deviationOrdered By: Esme Baker on 12-12-2023 Erythrocyte distribution width (RBC) [Entitic vol] 43.8 fL 35.1-43.9 [facility] Hematocrit Auto (Bld) [Volum e fraction]Ordered By: Esme Baker on 12-12-2023 Hematocrit (Bld) [Volume fraction] 32.4 % 37-47 [facility] Immature granulocytes/100 WB C Auto (Bld)Ordered By: Esme Baker on 12-12-2023 Immature granulocytes/100 WBC (Bld) 1.800 % 0.0-0.9 [facility] Comment on above: IG% - Immature Granu locytes (promyelocytes, myelocytes and metamyelocytes) > 1% indicates that a LEFT SHIFT is Present. Laboratory - Hematology and Cell countsOrdered By: Esme Baker on 12-12-2023 MCH (RBC) [Entitic mass] 26.8 pg 27.0-32.0 [facility] MCHC (RBC) [Mass/Vol] 32.7 g/dL 32-36 [facility] Nucleated RBC/100 WBC (Bld) [Ratio] 0 % 0-5 [facility] Platelet mean volume (Bld) [Entitic vol] 9.8 fL 6.2-12.0 [facility] Platelets (Bld) [#/Vol] 251 10*3/uL 150-450 [facility] RBC Auto (Bld) [#/Vol]Ordere d By: Esme Baker on 12-12-2023 RBC (Bld) [#/Vol] 3.95 10*6/uL 4.2-5.4 [facility] Serum Treponema species anti body detectionOrdered By: Esme Baker on 12-12-2023 Treponema sp Ab Ql (S) Non-Reactive [facility] No Panel InformationOrdered By: Esme Baker on 12-05-2023 Group B Streptococcus Culture Group B Beta Streptococcus is not isolated. [facility] Group B Streptococcus Culture Group B Beta Streptococcus is not isolated. [facility] Absolute lymphocyte countOrd ered By: Brandi Pacheco on 11-27-2023 Lymphocytes Auto (Unsp spec) [#/Vol] 1.66 10*3/uL 0.83-4.51 [facility] Activated partial thrombopla stin time (aPTT) in platelet poor plasma by coagulation aOrdered By: Brandi Pacheco on 11-27-2023 aPTT Coag (PPP) [Time] 28.2 s 24.1-36.2 [facility] Automated lymphocyte count a s percentage of total leukocytesOrdered By: Brandi Pacheco on 11-27-2023 Lymphocytes/100 WBC Auto (Unsp spec) 18.6 % 19-41 [facility] Basophil percentageOrdered B y: Brandi Pacheco on 11-27-2023 Basophils/100 WBC (Bld) 0.4 % 0-1 [facility] Eosinophils/100 WBC (Bld) 2.6 % 0-5 [facility] Hemoglobin (Bld) [Mass/Vol] 10.1 g/dL 12.0-15.0 [facility] Monocytes/100 WBC (Bld) 7.1 % 0-10 [facility] Neutrophils (Bld) [#/Vol] 6.3 10*3/uL 2.0-7.7 [facility] Neutrophils/100 WBC (Bld) 70.1 % 47-70 [facility] WBC (Bld) [#/Vol] 8.9 10*3/uL 4.4-11.0 [facility] Determination of erythrocyte mean corpuscular volume (MCV)Ordered By: Brandi Pacheco on 11-27-2023 MCV (RBC) [Entitic vol] 82.8 fL 81-99 [facility] Erythrocyte distribution wid th ratioOrdered By: Brandi Pacheco on 11-27-2023 Erythrocyte distribution width (RBC) [Ratio] 14.6 % 11.6-14.6 [facility] Erythrocyte distribution wid th standard deviationOrdered By: Brandi Pacheco on 11-27-2023 Erythrocyte distribution width (RBC) [Entitic vol] 43.1 fL 35.1-43.9 [facility] Hematocrit Auto (Bld) [Volum e fraction]Ordered By: Brandi Pacheco on 11-27-2023 Hematocrit (Bld) [Volume fraction] 30.3 % 37-47 [facility] Immature granulocytes/100 WB C Auto (Bld)Ordered By: Brandi Pacheco on 11-27-2023 Immature granulocytes/100 WBC (Bld) 1.200 % 0.0-0.9 [facility] Comment on above: IG% - Immature Granu locytes (promyelocytes, myelocytes and metamyelocytes) > 1% indicates that a LEFT SHIFT is Present. Laboratory - CoagulationOrde red By: Brandi Pacheco on 11-27-2023 INR Coag (Bld) [Relative time] 1.0 {INR} [facility] PT Coag (PPP) [Time] 13.4 s 11.7-14.9 [facility] Laboratory - Hematology and Cell countsOrdered By: Brandi Pacheco on 11-27-2023 MCH (RBC) [Entitic mass] 27.6 pg 27.0-32.0 [facility] MCHC (RBC) [Mass/Vol] 33.3 g/dL 32-36 [facility] Nucleated RBC/100 WBC (Bld) [Ratio] 0 % 0-5 [facility] Platelet mean volume (Bld) [Entitic vol] 9.9 fL 6.2-12.0 [facility] Platelets (Bld) [#/Vol] 276 10*3/uL 150-450 [facility] No Panel InformationOrdered By: Brandi Pacheco on 11-27-2023 Fibrinogen 545 mg/dl 203-444 [facility] RBC Auto (Bld) [#/Vol]Ordere d By: Brandi Pacheco on 11-27-2023 RBC (Bld) [#/Vol] 3.66 10*6/uL 4.2-5.4 [facility] Laboratory - Chemistry and C hemistry - challengeon 11-26-2023 Glucose Ql (U) Negative [facility] Laboratory - Urinalysison Protein Ql (U) Negative [facility] Laboratory - Chemistry and C hemistry - challengeon 11-14-2023 Glucose Ql (U) Negative [facility] Laboratory - Urinalysison Protein Ql (U) Negative [facility] Laboratory - Chemistry and C hemistry - challengeon 10-30-2023 Glucose Ql (U) Negative [facility] Laboratory - Urinalysison Protein Ql (U) Negative [facility] Quantitative serum or plasma 3 hour gestational glucose tolerance panelOrdered By: Marybel Torres on 10-23-2023 Glucose tolerance 3 hours gestational panel See comment [facility] Comment on above: FASTING 105 Col: 08/06 0656GLUCOSE TOLERANCE TEST FOR Reference Interval GESTATIONAL DIABETES Fasting <105 mg/dL 1 hour <190 mg/dl 2 hour <165 mg/dl 3 hour <145 mg/dl 1 HR GLU 186 Col: 10/23/23 0758 2 HR GLU 133 Col: 10/23/23 0858 3 HR GLU 110 Col: 10/23/23 1000 Absolute lymphocyte countOrd ered By: Marybel Torres on 10-17-2023 Lymphocytes Auto (Unsp spec) [#/Vol] 1.11 10*3/uL 0.83-4.51 [facility] Basophil percentageOrdered B y: Marybel Torres on 10-17-2023 Basophils/100 WBC (Bld) 0.8 % 0-1 [facility] Eosinophils/100 WBC (Bld) 2.9 % 0-5 [facility] Neutrophils (Bld) [#/Vol] 5.7 10*3/uL 2.0-7.7 [facility] Neutrophils/100 WBC (Bld) 72.9 % 47-70 [facility] WBC (Bld) [#/Vol] 7.9 10*3/uL 4.4-11.0 [facility] Blood erythrocytes count (nu mber/volume)Ordered By: Marybel Torres on 10-17-2023 RBC (Bld) [#/Vol] 3.36 10*6/uL 4.2-5.4 [facility] Blood hemoglobin measurement (mass/volume)Ordered By: Marybel Torres on 10-17-2023 Hemoglobin (Bld) [Mass/Vol] 9.4 g/dL 12.0-15.0 [facility] Blood lymphocytes/100 leukoc ytesOrdered By: Marybel Torres on 10-17-2023 Lymphocytes/100 WBC (Bld) 14.1 % 19-41 [facility] Blood monocytes/100 leukocyt esOrdered By: Marybel Torres on 10-17-2023 Monocytes/100 WBC (Bld) 5.7 % 0-10 [facility] Blood platelet mean volumeOr dered By: Marybel Torres on 10-17-2023 Platelet mean volume (Bld) [Entitic vol] 9.0 fL 6.2-12.0 [facility] Determination of erythrocyte mean corpuscular volume (MCV)Ordered By: Marybel Torres on 10-17-2023 MCV (RBC) [Entitic vol] 85.1 fL 81-99 [facility] Gestational diabetes screen 1-hour screen with 50g oral glucose loadOrdered By: Marybel Torres on 10-17-2023 Glucose 1 Hr post 50 g glucose PO [Mass/Vol] 141 mg/dL 70-140 [facility] HIV 1 and HIV-2 antibody ass ay with HIV-1 p24 antigen detectionOrdered By: Marybel Torres on 10-17-2023 HIV 1+2 Ab+HIV1 p24 Ag IA Ql Non-Reactive Nonreactive [facility] Hematocrit Auto (Bld) [Volum e fraction]Ordered By: Marybel Torres on 10-17-2023 Hematocrit (Bld) [Volume fraction] 28.6 % 37-47 [facility] Laboratory - Chemistry and C hemistry - challengeon 10-17-2023 Glucose Ql (U) Negative [facility] Laboratory - Chemistry and C hemistry - challengeOrdered By: Anson Richter on 10-17-2023 Free T4 [Mass/Vol] 0.87 ng/dL 0.76-1.46 [facility] Laboratory - Hematology and Cell countsOrdered By: Marybel Torres on 10-17-2023 Erythrocyte distribution width (RBC) [Entitic vol] 37.2 fL 35.1-43.9 [facility] Erythrocyte distribution width (RBC) [Ratio] 12.1 % 11.6-14.6 [facility] Immature granulocytes/100 WBC (Bld) 3.600 % 0.0-0.9 [facility] Comment on above: IG% - Immature Granu locytes (promyelocytes, myelocytes and metamyelocytes) > 1% indicates that a LEFT SHIFT is Present. MCH (RBC) [Entitic mass] 28.0 pg 27.0-32.0 [facility] Nucleated RBC/100 WBC (Bld) [Ratio] 0 % 0-5 [facility] Laboratory - Urinalysison Protein Ql (U) Negative [facility] MCHC Auto (RBC) [Mass/Vol]Or dered By: Marybel Torres on 10-17-2023 MCHC (RBC) [Mass/Vol] 32.9 g/dL 32-36 [facility] No Panel InformationOrdered By: Anson Richter on 10-17-2023 Thyroid Stimulating Hormone (TSH) 1.99 uIU/mL 0.358-3.74 [facility] Platelets bldOrdered By: Gibson Torres on 10-17-2023 Platelets (Bld) [#/Vol] 279 10*3/uL 150-450 [facility] Serum Treponema species anti body detectionOrdered By: Marybel Torres on 10-17-2023 Treponema sp Ab Ql (S) Non-Reactive [facility] Absolute lymphocyte countOrd ered By: Fermín Rodrigues on 10-16-2023 Lymphocytes Auto (Unsp spec) [#/Vol] 1.73 10*3/uL 0.83-4.51 [facility] Basophil percentageOrdered B y: Fermín Rodrigues on 10-16-2023 Basophils/100 WBC (Bld) 0.6 % 0-1 [facility] Eosinophils/100 WBC (Bld) 2.2 % 0-5 [facility] Neutrophils (Bld) [#/Vol] 7.5 10*3/uL 2.0-7.7 [facility] Neutrophils/100 WBC (Bld) 72.3 % 47-70 [facility] WBC (Bld) [#/Vol] 10.4 10*3/uL 4.4-11.0 [facility] Basophil percentageOrdered B y: ED PROVIDER on 10-16-2023 Basophil percentage 0 SEEN /hpf 0-5 [facility] Bilirubin Test strip Ql (U)O rdered By: ED PROVIDER on 10-16-2023 Bilirubin Ql (U) Negative Negative [facility] Blood erythrocytes count (nu mber/volume)Ordered By: Fermín Rodrigues on 10-16-2023 RBC (Bld) [#/Vol] 3.53 10*6/uL 4.2-5.4 [facility] Blood hemoglobin measurement (mass/volume)Ordered By: Fermín Rodrigues on 10-16-2023 Hemoglobin (Bld) [Mass/Vol] 9.9 g/dL 12.0-15.0 [facility] Blood lymphocytes/100 leukoc ytesOrdered By: Fermín Rodrigues on 10-16-2023 Lymphocytes/100 WBC (Bld) 16.6 % 19-41 [facility] Blood monocytes/100 leukocyt esOrdered By: Fermín Rodrigues on 10-16-2023 Monocytes/100 WBC (Bld) 6.4 % 0-10 [facility] Blood platelet mean volumeOr dered By: Fermín Rodrigues on 10-16-2023 Platelet mean volume (Bld) [Entitic vol] 9.5 fL 6.2-12.0 [facility] Determination of erythrocyte mean corpuscular volume (MCV)Ordered By: Fermín Rodrigues on 10-16-2023 MCV (RBC) [Entitic vol] 83.3 fL 81-99 [facility] Hematocrit Auto (Bld) [Volum e fraction]Ordered By: Fermín Rodrigues on 10-16-2023 Hematocrit (Bld) [Volume fraction] 29.4 % 37-47 [facility] Ketones Test strip Ql (U)Ord ered By: ED PROVIDER on 10-16-2023 Ketones Ql (U) 15 mg/dl Negative [facility] Laboratory - Hematology and Cell countsOrdered By: Fermín Rodrigues on 10-16-2023 Erythrocyte distribution width (RBC) [Entitic vol] 36.4 fL 35.1-43.9 [facility] Erythrocyte distribution width (RBC) [Ratio] 12.0 % 11.6-14.6 [facility] Immature granulocytes/100 WBC (Bld) 1.900 % 0.0-0.9 [facility] Comment on above: IG% - Immature Granu locytes (promyelocytes, myelocytes and metamyelocytes) > 1% indicates that a LEFT SHIFT is Present. MCH (RBC) [Entitic mass] 28.0 pg 27.0-32.0 [facility] Nucleated RBC/100 WBC (Bld) [Ratio] 0 % 0-5 [facility] MCHC Auto (RBC) [Mass/Vol]Or dered By: Fermín Rodrigues on 10-16-2023 MCHC (RBC) [Mass/Vol] 33.7 g/dL 32-36 [facility] Mucus LM Ql (Urine sed)Order ed By: ED PROVIDER on 10-16-2023 Mucus Ql (Urine sed) 0 SEEN /hpf [facility] Nitrite Test strip Ql (U)Ord ered By: ED PROVIDER on 10-16-2023 Nitrite Ql (U) Negative Negative [facility] Platelets bldOrdered By: Fermín Rodrigues on 10-16-2023 Platelets (Bld) [#/Vol] 294 10*3/uL 150-450 [facility] Protein Test strip Ql (U)Ord ered By: ED PROVIDER on 10-16-2023 Protein Ql (U) Negative Negative [facility] Squamous epithelial cells de tection in urine sediment by light microscopyOrdered By: ED PROVIDER on 10-16-2023 Epithelial cells.squamous LM Ql (Urine sed) 0-5 SEEN /hpf 5-10 [facility] Urine blood detectionOrdered By: ED PROVIDER on 10-16-2023 RBC Ql (U) Negative Negative [facility] RBC Ql (U) 0 SEEN /hpf 0-5 [facility] Urine clarityOrdered By: ED PROVIDER on 10-16-2023 Clarity (U) Clear Clear [facility] Urine color determinationOrd ered By: ED PROVIDER on 10-16-2023 Color (U) Yellow Yellow [facility] Urine glucose detectionOrder ed By: ED PROVIDER on 10-16-2023 Glucose Ql (U) Normal mg/dl Normal [facility] Urine leukocyte esterase det ection by dipstickOrdered By: ED PROVIDER on 10-16-2023 Leukocyte esterase Test strip Ql (U) Negative Negative [facility] Urine pHOrdered By: ED PROVI ADRIAN on 10-16-2023 pH (U) 6.5 [pH] 5.0 - 8.0 [facility] Urine sediment bacteria coun t by microscopy (number/high power field)Ordered By: ED PROVIDER on 10-16-2023 Bacteria LM.HPF (Urine sed) [#/Area] 0 /[HPF] None Seen [facility] Urine specific gravity measu rementOrdered By: ED PROVIDER on 10-16-2023 Specific gravity (U) [Rel density] 1.010 1.002-1.030 [facility] Urobilinogen Auto test strip Ql (U)Ordered By: ED PROVIDER on 10-16-2023 Urobilinogen Ql (U) Normal mg/dl Normal [facility] Iron measurement (mass/mass) Ordered By: Bethany Cedillo on 10-03-2023 Iron (Unsp spec) [Mass/Mass] 31 ug/dL 50-170 [facility] No Panel InformationOrdered By: Bethany Cedillo on 10-03-2023 Total Iron Binding Capacity 526 ug/dL 250-450 [facility] Serum or plasma ferritin brenda surement (mass/volume)Ordered By: Bethany Cedillo on 10-03-2023 Ferritin [Mass/Vol] 4 ng/mL 8-252 [facility] Serum or plasma iron saturat ion measurement (mass fraction)Ordered By: Bethany Cedillo on 10-03-2023 Iron saturation [Mass fraction] 5.9 % 15.0-55.0 [facility] Absolute lymphocyte countOrd ered By: Bethany Cedillo on 09-16-2023 Lymphocytes Auto (Unsp spec) [#/Vol] 1.63 10*3/uL 0.83-4.51 [facility] Basophil percentageOrdered B y: Bethany Cedillo on 09-16-2023 Basophils/100 WBC (Bld) 0.6 % 0-1 [facility] Bilirubin [Mass/Vol] 0.20 mg/dL 0.20-1.00 [facility] Comment on above: For patients on eltr ombopag therapy, use of Dimension [place] TBIL is not recommended. Chloride [Moles/Vol] 105 mmol/L 98-107 [facility] Eosinophils/100 WBC (Bld) 2.2 % 0-5 [facility] Glucose [Mass/Vol] 117 mg/dL 74-106 [facility] Comment on above: Fasting Glucose resu lt from 100 to 125 mg/dL suggests IMPAIRED HOMEOSTASIS per A.D.A. criteria. Neutrophils (Bld) [#/Vol] 8.5 10*3/uL 2.0-7.7 [facility] Neutrophils/100 WBC (Bld) 74.4 % 47-70 [facility] Potassium [Moles/Vol] 3.6 mmol/L 3.5-5.1 [facility] Protein [Mass/Vol] 6.9 g/dL 6.4-8.2 [facility] Sodium [Moles/Vol] 136 mmol/L 136-145 [facility] WBC (Bld) [#/Vol] 11.4 10*3/uL 4.4-11.0 [facility] Blood erythrocytes count (nu mber/volume)Ordered By: Bethany Cedillo on 09-16-2023 RBC (Bld) [#/Vol] 3.56 10*6/uL 4.2-5.4 [facility] Blood hemoglobin measurement (mass/volume)Ordered By: Bethany Cedillo on 09-16-2023 Hemoglobin (Bld) [Mass/Vol] 10.3 g/dL 12.0-15.0 [facility] Blood lymphocytes/100 leukoc ytesOrdered By: Bethany Cedillo on 09-16-2023 Lymphocytes/100 WBC (Bld) 14.3 % 19-41 [facility] Blood monocytes/100 leukocyt esOrdered By: Bethany Cedillo on 09-16-2023 Monocytes/100 WBC (Bld) 6.7 % 0-10 [facility] Blood platelet mean volumeOr dered By: Bethany Cedillo on 09-16-2023 Platelet mean volume (Bld) [Entitic vol] 9.2 fL 6.2-12.0 [facility] Determination of erythrocyte mean corpuscular volume (MCV)Ordered By: Bethany Cedillo on 09-16-2023 MCV (RBC) [Entitic vol] 88.2 fL 81-99 [facility] Hematocrit Auto (Bld) [Volum e fraction]Ordered By: Bethany Cedillo on 09-16-2023 Hematocrit (Bld) [Volume fraction] 31.4 % 37-47 [facility] Laboratory - Chemistry and C hemistry - challengeOrdered By: Bethany Cdeillo on 09-16-2023 ALP [Catalytic activity/Vol] 76 U/L 45-117 [facility] ALT [Catalytic activity/Vol] 10 U/L 13-56 [facility] CO2 [Moles/Vol] 24.0 mmol/L 21.0-32.0 [facility] Globulin (S) [Mass/Vol] 4.2 g/dL 2.2-4.2 [facility] Urea nitrogen/Creatinine [Mass ratio] 16.6 mg/mg 10-20 [facility] Laboratory - Chemistry and C hemistry - challengeon 09-16-2023 Glucose Ql (U) Negative [facility] Laboratory - Hematology and Cell countsOrdered By: Bethany Cedillo on 09-16-2023 Erythrocyte distribution width (RBC) [Entitic vol] 39.0 fL 35.1-43.9 [facility] Erythrocyte distribution width (RBC) [Ratio] 12.1 % 11.6-14.6 [facility] Immature granulocytes/100 WBC (Bld) 1.800 % 0.0-0.9 [facility] Comment on above: IG% - Immature Granu locytes (promyelocytes, myelocytes and metamyelocytes) > 1% indicates that a LEFT SHIFT is Present. MCH (RBC) [Entitic mass] 28.9 pg 27.0-32.0 [facility] Nucleated RBC/100 WBC (Bld) [Ratio] 0 % 0-5 [facility] Laboratory - Urinalysison Protein Ql (U) Negative [facility] MCHC Auto (RBC) [Mass/Vol]Or dered By: Bethany Cedillo on 09-16-2023 MCHC (RBC) [Mass/Vol] 32.8 g/dL 32-36 [facility] No Panel InformationOrdered By: Bethany Cedillo on 09-16-2023 Estimated GFR (MDRD) Amer 178 mL/min >60 [facility] Comment on above: GFR Calc Estimated GFR (MDRD) Non-Af Amer 147 mL/min >60 [facility] Comment on above: Non- GFR Calc Platelets bldOrdered By: Patsy torres Nguyen on 09-16-2023 Platelets (Bld) [#/Vol] 287 10*3/uL 150-450 [facility] Serum or plasma albumin pravin urement (mass/volume)Ordered By: Bethany Cedillo on 09-16-2023 Albumin [Mass/Vol] 2.7 g/dL 3.2-5.0 [facility] Serum or plasma albumin/glob ulin mass ratioOrdered By: Bethany Cedillo on 09-16-2023 Albumin/Globulin [Mass ratio] 0.6 {ratio} 0.9-2.4 [facility] Serum or plasma calcium pravin urement (mass/volume)Ordered By: Bethany Cedillo on 09-16-2023 Calcium [Mass/Vol] 8.2 mg/dL 8.5-10.1 [facility] Serum or plasma creatinine m easurement (mass/volume)Ordered By: Bethany Cedillo on 09-16-2023 Creatinine [Mass/Vol] 0.54 mg/dL 0.55-1.02 [facility] Comment on above: The validity of the calculated GFR & GFRAA in patients over 70 years has not been determined. Clinical correlation is essential. Serum or plasma urea nitroge n measurement (mass/volume)Ordered By: Bethany Cedillo on 09-16-2023 Urea nitrogen [Mass/Vol] 9 mg/dL 7-18 [facility] Thin prep Papanicolaou smear with manual screeningOrdered By: Bethany Cedillo on 09-16-2023 Thin prep Papanicolaou smear with manual screening 8 U/L 15-37 [facility] Thin prep Papanicolaou smear with manual screening 7 5-15 [facility] Urine creatinine measurement (mass/volume)Ordered By: Bethany Cedillo on 09-16-2023 Creatinine (U) [Mass/Vol] 119.00 mg/dL NO RANGE EST. [facility] Urine protein measurement (m ass/volume)Ordered By: Bethany Cedillo on 09-16-2023 Protein (U) [Mass/Vol] 11.7 mg/dL 0.0-11.8 [facility] Urine protein/creatinine mas s ratioOrdered By: Bethanytoby Cedillo on 09-16-2023 Protein/Creatinine (U) [Mass ratio] 98 mg/g CRE 0-200 [facility] Laboratory - Chemistry and C hemistry - challengeOrdered By: Anson Richter on 08-08-2023 Free T4 [Mass/Vol] 0.93 ng/dL 0.76-1.46 [facility] No Panel InformationOrdered By: Anson Richter on 08-08-2023 Thyroid Stimulating Hormone (TSH) 1.99 uIU/mL 0.358-3.74 [facility] Laboratory - Chemistry and C hemistry - challengeon 07-26-2023 Glucose Ql (U) Negative [facility] Laboratory - Urinalysison Protein Ql (U) Negative [facility] Laboratory - Chemistry and C hemistry - challengeOrdered By: Brandi Pacheco on 06-26-2023 Free T4 [Mass/Vol] 1.11 ng/dL 0.76-1.46 [facility] Laboratory - Chemistry and C hemistry - challengeon 06-26-2023 Glucose Ql (U) Negative [facility] Laboratory - Urinalysison Protein Ql (U) Negative [facility] No Panel InformationOrdered By: Brandi Pacheco on 06-26-2023 Thyroid Stimulating Hormone (TSH) 1.61 uIU/mL 0.358-3.74 [facility] Serum or plasma thyroperoxid ase antibody assay (units/volume)Ordered By: Brandi Pacheco on 06-26-2023 TPO Ab Qn 54 [IU]/mL 0-34 [facility] Comment on above: Performed at: [facility] [address] [id number] Director: Td Sanders PhD, Phone: [phone] Culture, urineOrdered By: Luciano Baker on 05-28-2023 Bacteria identified Cx Nom (U) Culture exhibits no growth. [facility] Absolute lymphocyte countOrd ered By: Esme Baker on 05-27-2023 Lymphocytes Auto (Unsp spec) [#/Vol] 1.86 10*3/uL 0.83-4.51 [facility] Basophil percentageOrdered B y: Esme Baker on 05-27-2023 Basophils/100 WBC (Bld) 0.5 % 0-1 [facility] Eosinophils/100 WBC (Bld) 1.3 % 0-5 [facility] Neutrophils (Bld) [#/Vol] 7.3 10*3/uL 2.0-7.7 [facility] Neutrophils/100 WBC (Bld) 73.3 % 47-70 [facility] WBC (Bld) [#/Vol] 9.9 10*3/uL 4.4-11.0 [facility] Blood erythrocytes count (nu mber/volume)Ordered By: Esme Baker on 05-27-2023 RBC (Bld) [#/Vol] 4.02 10*6/uL 4.2-5.4 [facility] Blood hemoglobin measurement (mass/volume)Ordered By: Esme Baker on 05-27-2023 Hemoglobin (Bld) [Mass/Vol] 11.6 g/dL 12.0-15.0 [facility] Blood lymphocytes/100 leukoc ytesOrdered By: Esme Baker on 05-27-2023 Lymphocytes/100 WBC (Bld) 18.8 % 19-41 [facility] Blood monocytes/100 leukocyt esOrdered By: Esme Baker on 05-27-2023 Monocytes/100 WBC (Bld) 5.5 % 0-10 [facility] Blood platelet mean volumeOr dered By: Esme Baker on 05-27-2023 Platelet mean volume (Bld) [Entitic vol] 8.9 fL 6.2-12.0 [facility] Chlamydia trachomatis rRNA d etection by probe and target amplification methodOrdered By: Esme Baker on 05-27-2023 C. trachomatis rRNA JACLYN+probe Ql (Unsp spec) Negative Negative [facility] Culture, urineOrdered By: Luciano Baker on 05-27-2023 Bacteria identified Cx Nom (U) Culture exhibits no growth. [facility] Determination of erythrocyte mean corpuscular volume (MCV)Ordered By: Esme Baker on 05-27-2023 MCV (RBC) [Entitic vol] 84.6 fL 81-99 [facility] HIV 1 and HIV-2 antibody ass ay with HIV-1 p24 antigen detectionOrdered By: Esme Baker on 05-27-2023 HIV 1+2 Ab+HIV1 p24 Ag IA Ql Non-Reactive Nonreactive [facility] Hematocrit Auto (Bld) [Volum e fraction]Ordered By: Esme Baker on 05-27-2023 Hematocrit (Bld) [Volume fraction] 34.0 % 37-47 [facility] Laboratory - Hematology and Cell countsOrdered By: Esme Baker on 05-27-2023 Erythrocyte distribution width (RBC) [Entitic vol] 36.7 fL 35.1-43.9 [facility] Erythrocyte distribution width (RBC) [Ratio] 12.0 % 11.6-14.6 [facility] Immature granulocytes/100 WBC (Bld) 0.600 % 0.0-0.9 [facility] Comment on above: IG% - Immature Granu locytes (promyelocytes, myelocytes and metamyelocytes) > 1% indicates that a LEFT SHIFT is Present. MCH (RBC) [Entitic mass] 28.9 pg 27.0-32.0 [facility] Nucleated RBC/100 WBC (Bld) [Ratio] 0 % 0-5 [facility] Laboratory - Microbiology an d Antimicrobial susceptibilityOrdered By: Esme Baker on 05-27-2023 N. gonorrhoeae DNA JACLYN+probe Ql (Unsp spec) Negative Negative [facility] Comment on above: Performed at: =G - L julius [address] [place] [id number] Director: Kenyetta Ibarra MD, Phone: [phone] [facility] Auto (RBC) [Mass/Vol]Or dered By: Esme Baker on 05-27-2023 MCHC (RBC) [Mass/Vol] 34.1 g/dL 32-36 [facility] No Panel InformationOrdered By: Esme Baker on 05-27-2023 Hepatitis B Surface Antigen Non-Reactive Nonreactive [facility] Hepatitis C Antibody Non-Reactive Nonreactive [facility] Comment on above: Non Reactive: < 0.8 Equivocal: >/= 0.8 to < 1.0 Reactive: >/= 1.0The CDC recommends that a reactive/equivocal HCV antibody result be followed up by the HCV Nucleic Acid Amplificationtest ([id number]) Rubella IgG Antibody Reactive Nonreactive [facility] Comment on above: Antibody Results Int erpretation of Immune Status Non Reactive Presumed Non-Immune Equivocal Equivocal Reactive Presumed Immune Platelets bldOrdered By: Shelton Baker on 05-27-2023 Platelets (Bld) [#/Vol] 304 10*3/uL 150-450 [facility] Serum Treponema species anti body detectionOrdered By: Esme Baker on 05-27-2023 Treponema sp Ab Ql (S) Non-Reactive [facility] HCG,BETA-QUANTITATIVEon 07-0 HCG,BETA-QUANTITATIVE 26 mIU/mL Abnormal [facility] Comment on above: Result Comment: . Total HCG measurement is performed using the [employer] Access Immunoassay which detects intact HCG and free beta HCG subunit. . This test is not indicated for use as a tumor marker. HCG testing is performed using a different test methodology at [facility]. Direct result comparison should only be made within the same method. REF VALUES NON FEMALE <5 MALES <5 . Low-level positive HCG results can be seen in early , in yaneth- or post-menopausal females due to normal pituitary HCG production, or with analytic interference. Repeat testing in 48-72 hours can aid in assessing for as results should double in this time period. FSH measurement is recommended in yaneth- or post-menopausal females as concurrent elevation of FSH can support pituitary production as the source of the HCG elevation. Performed By: #### H CGQU #### [address] [address] Lab Specimen Source Normal [facility] Comment on above: Performed By: #### H CGQU #### [address] [address] HCG,BETA-QUANTITATIVEon 07-0 HCG,BETA-QUANTITATIVE <3 Normal [facility] Comment on above: Result Comment: . Total HCG measurement is performed using the [employer] immunoassay which detects intact HCG and free beta HCG subunit. . This test is not indicated for use as a tumor marker. HCG testing is performed using a different test methodology at [facility] than other [facility]. Direct result comparison should only be made within the same method. . REF VALUES NON FEMALE <5 MALES <5 Performed By: #### T 4FRE #### [address] [address] TRIIODOTHYRONINE,FREEon 07-0 TRIIODOTHYRONINE,FREE 3.1 pg/mL Normal 2.3 - 4.2 [facility] Comment on above: Performed By: #### T 3FRE #### [facility] [address] [place] [address] CBC AND DIFFERENTIALon 04-17 % AUTOMATED IMMATURE GRAN 0.3 % Normal 0.0 - 0.9 [facility] Comment on above: Result Comment: Jannie ture Granulocyte Count (IG) includes promyelocytes, myelocytes and metamyelocytes but does not include bands. Percent differential counts (%) should be interpreted in the context of the absolute cell counts (cells/L). Performed By: #### T 4FRE #### [address] [address] Basophils (Bld) [#/Vol] 0.05 10*3/uL Normal 0.00 - 0.10 [facility] Comment on above: Performed By: #### T 4FRE #### [address] [address] Basophils/100 WBC (Bld) 0.8 % Normal 0.0 - 2.0 [facility] Comment on above: Performed By: #### T 4FRE #### [address] [address] Eosinophils (Bld) [#/Vol] 0.19 10*3/uL Normal 0.00 - 0.70 [facility] Comment on above: Performed By: #### T 4FRE #### [address] [address] Eosinophils/100 WBC (Bld) 3.0 % Normal 0.0 - 6.0 [facility] Comment on above: Performed By: #### T 4FRE #### [address] [address] Erythrocyte distribution width (RBC) [Ratio] 12.0 % Normal 11.5 - 14.5 [facility] Comment on above: Performed By: #### T 4FRE #### [address] [address] Hematocrit (Bld) [Volume fraction] 34.9 % Low 36.0 - 46.0 [facility] Comment on above: Performed By: #### T 4FRE #### [address] [address] Hemoglobin (Bld) [Mass/Vol] 11.8 g/dL Low 12.0 - 16.0 [facility] Comment on above: Performed By: #### T 4FRE #### [address] [address] Lymphocytes (Bld) [#/Vol] 1.95 10*3/uL Normal 1.20 - 4.80 [facility] Comment on above: Performed By: #### T 4FRE #### [address] [address] Lymphocytes/100 WBC (Bld) 30.3 % Normal 13.0 - 44.0 [facility] Comment on above: Performed By: #### T 4FRE #### [address] [address] MCHC (RBC) [Mass/Vol] 33.8 g/dL Normal 32.0 - 36.0 [facility] Comment on above: Performed By: #### T 4FRE #### [address] [address] MCV (RBC) [Entitic vol] 86 fL Normal 80 - 100 [facility] Comment on above: Performed By: #### T 4FRE #### [address] [address] Monocytes (Bld) [#/Vol] 0.48 10*3/uL Normal 0.10 - 1.00 [facility] Comment on above: Performed By: #### T 4FRE #### [address] [address] Monocytes/100 WBC (Bld) 7.5 % Normal 2.0 - 10.0 [facility] Comment on above: Performed By: #### T 4FRE #### [address] [address] Neutrophils (Bld) [#/Vol] 3.75 10*3/uL Normal 1.20 - 7.70 [facility] Comment on above: Result Comment: Perc ent differential counts (%) should be interpreted in the context of the absolute cell counts (cells/L). Performed By: #### T 4FRE #### [address] [address] Neutrophils/100 WBC (Bld) 58.1 % Normal 40.0 - 80.0 [facility] [facility] Comment on above: Performed By: #### T 4FRE #### [address] [address] Platelets (Bld) [#/Vol] 230 10*3/uL Normal 150 - 450 [facility] Comment on above: Performed By: #### T 4FRE #### [address] [address] RBC 4.06 x10E12/L Normal 4.00 - 5.20 [facility] Comment on above: Performed By: #### T 4FRE #### [address] [address] WBC (Bld) [#/Vol] 6.4 10*3/uL Normal 4.4 - 11.3 [facility] Comment on above: Performed By: #### T 4FRE #### [place] [id number] FERRITINon 04-17-2023 FERRITIN 16 ug/L Normal 8 - 150 [facility] Comment on above: Performed By: #### F ERRI #### [place] [id number] IRON + TIBCon 04-17-2023 % SATURATION 23 % Low 25 - 45 [facility] Comment on above: Performed By: #### T 4FRE #### [place] [address] Iron [Mass/Vol] 97 ug/dL Normal 35 - 150 [facility] Comment on above: Performed By: #### T 4FRE #### [place] [address] TIBC 429 ug/dL Normal 240 - 445 [facility] Comment on above: Performed By: #### T 4FRE #### [place] [id number] THYROXINE,FREEon 04-17-2023 THYROXINE,FREE 0.65 ng/dL Normal 0.61 - 1.12 [facility] Comment on above: Result Comment: Thyr oxine Free testing is performed using different testing methodology at [facility] than at other [facility]. Direct result comparisons should only be made within the same method. . Biotin can cause falsely elevated free T4 results. Patients taking a Biotin dose of up to 10 mg/day should refrain from taking Biotin for 24 hours before sample collection. Patient taking a Biotin dose of >10 mg/day should consult with their physician or the laboratory before the blood draw. Performed By: #### T 4FRE #### [place] [address] Lab Specimen Source Normal [facility] Comment on above: Performed By: #### T 4FRE #### [place] [address] Performed By: #### F ERRI #### [place] [address] Performed By: #### T SH2 #### [address] [address] Performed By: #### T 3FRE #### [facility] [address] [place] [address] TSHon 04-17-2023 TSH Qn 2.87 m[IU]/L Normal 0.44 - 3.98 [facility] Comment on above: Result Comment: TSH testing is performed using different testing methodology at [facility] than at other [facility]. Direct result comparisons should only be made within the same method. Performed By: #### T SH2 #### [place] [id number] TRIIODOTHYRONINE,FREEon TRIIODOTHYRONINE,FREE 3.3 pg/mL Normal 2.3 - 4.2 [facility] Comment on above: Performed By: #### T 3FRE #### [facility] [address] [facility] [place] [id number] CBC AND DIFFERENTIALon 03-19 % AUTOMATED IMMATURE GRAN 0.4 % Normal 0.0 - 0.9 [facility] Comment on above: Result Comment: Jannie ture Granulocyte Count (IG) includes promyelocytes, myelocytes and metamyelocytes but does not include bands. Percent differential counts (%) should be interpreted in the context of the absolute cell counts (cells/L). Performed By: #### C BCDF #### [place] [id number] Basophils (Bld) [#/Vol] 0.04 10*3/uL Normal 0.00 - 0.10 [facility] Comment on above: Performed By: #### C BCDF #### [address] [address] Basophils/100 WBC (Bld) 0.9 % Normal 0.0 - 2.0 [facility] Comment on above: Performed By: #### C BCDF #### [address] [address] Eosinophils (Bld) [#/Vol] 0.16 10*3/uL Normal 0.00 - 0.70 [facility] Comment on above: Performed By: #### C BCDF #### [address] [address] Eosinophils/100 WBC (Bld) 3.4 % Normal 0.0 - 6.0 [facility] Comment on above: Performed By: #### C BCDF #### [address] [address] Erythrocyte distribution width (RBC) [Ratio] 12.1 % Normal 11.5 - 14.5 [facility] Comment on above: Performed By: #### C BCDF #### [address] [address] Hematocrit (Bld) [Volume fraction] 36.8 % Normal 36.0 - 46.0 [facility] Comment on above: Performed By: #### C BCDF #### [address] [address] Hemoglobin (Bld) [Mass/Vol] 12.3 g/dL Normal 12.0 - 16.0 [facility] Comment on above: Performed By: #### C BCDF #### [address] [address] Lymphocytes (Bld) [#/Vol] 1.72 10*3/uL Normal 1.20 - 4.80 [facility] Comment on above: Performed By: #### C BCDF #### [address] [address] Lymphocytes/100 WBC (Bld) 36.9 % Normal 13.0 - 44.0 [facility] Comment on above: Performed By: #### C BCDF #### [address] [address] MCHC (RBC) [Mass/Vol] 33.4 g/dL Normal 32.0 - 36.0 [facility] Comment on above: Performed By: #### C BCDF #### [address] [address] MCV (RBC) [Entitic vol] 86 fL Normal 80 - 100 [facility] Comment on above: Performed By: #### C BCDF #### [address] [address] Monocytes (Bld) [#/Vol] 0.35 10*3/uL Normal 0.10 - 1.00 [facility] Comment on above: Performed By: #### C BCDF #### [address] [address] Monocytes/100 WBC (Bld) 7.5 % Normal 2.0 - 10.0 [facility] Comment on above: Performed By: #### C BCDF #### [address] [address] Neutrophils (Bld) [#/Vol] 2.37 10*3/uL Normal 1.20 - 7.70 [facility] Comment on above: Result Comment: Perc ent differential counts (%) should be interpreted in the context of the absolute cell counts (cells/L). Performed By: #### C BCDF #### [address] [address] Neutrophils/100 WBC (Bld) 50.9 % Normal 40.0 - 80.0 [facility] Comment on above: Performed By: #### C BCDF #### [address] [address] Platelets (Bld) [#/Vol] 266 10*3/uL Normal 150 - 450 [facility] Comment on above: Performed By: #### C BCDF #### [address] [address] RBC 4.27 x10E12/L Normal 4.00 - 5.20 [facility] Comment on above: Performed By: #### C BCDF #### [address] [address] WBC (Bld) [#/Vol] 4.7 10*3/uL Normal 4.4 - 11.3 [facility] Comment on above: Performed By: #### C BCDF #### [address] [address] Lab Specimen Source Normal [facility] Comment on above: Performed By: #### C BCDF #### [address] [address] Performed By: #### T 3FRE #### [facility] [address] [place] [address] Performed By: #### C MP #### [address] [address] Performed By: #### F ERRI #### [address] [address] Performed By: #### T 4FRE #### [place] [id number] COMPREHENSIVE PANELon 2022 Albumin [Mass/Vol] 4.6 g/dL Normal 3.4 - 5.0 [facility] Comment on above: Performed By: #### C MP #### [address] [address] ALP [Catalytic activity/Vol] 60 U/L Normal 33 - 110 [facility] Comment on above: Performed By: #### C MP #### [address] [address] ALT [Catalytic activity/Vol] 7 U/L Normal 7 - 45 [facility] Comment on above: Result Comment: Martha ents treated with Sulfasalazine may generate falsely decreased results for ALT. Performed By: #### C MP #### [address] [address] Anion gap [Moles/Vol] 11 mmol/L Normal 10 - 20 [facility] Comment on above: Performed By: #### C MP #### [address] [address] AST [Catalytic activity/Vol] 11 U/L Normal 9 - 39 [facility] Comment on above: Performed By: #### C MP #### [address] [address] Bilirubin [Mass/Vol] 0.4 mg/dL Normal 0.0 - 1.2 [facility] Comment on above: Performed By: #### C MP #### [address] [place] [address] Calcium [Mass/Vol] 8.9 mg/dL Normal 8.6 - 10.3 [facility] Comment on above: Performed By: #### C MP #### [address] [address] Chloride [Moles/Vol] 105 mmol/L Normal 98 - 107 [facility] Comment on above: Performed By: #### C MP #### [address] [address] Creatinine [Mass/Vol] 0.75 mg/dL Normal 0.50 - 1.05 [facility] Comment on above: Performed By: #### C MP #### [address] [address] eGFR FEMALE >90 Normal >90 [facility] Comment on above: Result Comment: CALC ULATIONS OF ESTIMATED GFR ARE PERFORMED USING THE 2020 CKD-EPI STUDY REFIT EQUATION WITHOUT THE RACE VARIABLE FOR THE IDMS-TRACEABLE CREATININE METHODS. https://jasn.asnjournals.org/content/early//ASN.76250 40785 Performed By: #### C MP #### [address] [address] Glucose [Mass/Vol] 90 mg/dL Normal 74 - 99 [facility] Comment on above: Performed By: #### C MP #### [address] [address] HCO3 (Bld) [Moles/Vol] 24 mmol/L Normal 21 - 32 [facility] Comment on above: Performed By: #### C MP #### [address] [address] Potassium [Moles/Vol] 3.8 mmol/L Normal 3.5 - 5.3 [facility] Comment on above: Performed By: #### C MP #### [address] [address] Protein [Mass/Vol] 7.1 g/dL Normal 6.4 - 8.2 [facility] Comment on above: Performed By: #### C MP #### [address] [address] Sodium [Moles/Vol] 136 mmol/L Normal 136 - 145 [facility] Comment on above: Performed By: #### C MP #### [address] [address] Urea nitrogen [Mass/Vol] 14 mg/dL Normal 6 - 23 [facility] Comment on above: Performed By: #### C MP #### [place] [id number] FERRITINon 03-19-2023 FERRITIN 19 ug/L Normal 8 - 150 [facility] Comment on above: Performed By: #### F ERRI #### [place] [id number] FOLATE, SERUMon 03-19-2023 Folate [Mass/Vol] 18.9 ng/mL Normal >5.0 [facility] Comment on above: Result Comment: Low <3.4 Borderline 3.4-5.0 Normal >5.0 . Patients receiving more than 5 mg/day of biotin may have interference in test results. A sample should be taken no sooner than eight hours after previous dose. Contact the testing laboratory for additional information. Performed By: #### T 4FRE #### [place] [id number] HEMOGLOBIN A1Con 03-19-2023 Glucose [Mass/Vol] 97 mg/dL Normal [facility] Comment on above: Performed By: #### H BA1E #### [place] [id number] HbA1c (Bld) [Mass fraction] 5.0 % Normal [facility] Comment on above: Result Comment: Diag nosis of Diabetes-Adults Non-Diabetic: < or = 5.6% Increased risk for developing diabetes: 5.7-6.4% Diagnostic of diabetes: > or = 6.5% . Monitoring of Diabetes Age (y) Therapeutic Goal (%) Adults: >18 <7.0 Pediatrics: 13-18 <7.5 7-12 <8.0 0- 6 7.5-8.5 [employer] [employer]. Diabetes Care 33(S1), Oct 2009. Performed By: #### H BA1E #### [address] [address] IRON + TIBCon 03-19-2023 % SATURATION 10 % Low 25 - 45 [facility] Comment on above: Performed By: #### T 4FRE #### [address] [address] Iron [Mass/Vol] 40 ug/dL Normal 35 - 150 [facility] Comment on above: Performed By: #### T 4FRE #### [address] [address] TIBC 420 ug/dL Normal 240 - 445 [facility] Comment on above: Performed By: #### T 4FRE #### [address] [address] LIPID PANEL (CORONARY RISK 2 )on 03-19-2023 Cholesterol [Mass/Vol] 167 mg/dL Normal 0 - 199 [facility] Comment on above: Result Comment: . AGE DESIRABLE BORDERLINE HIGH HIGH 0-19 Y 0 - 169 170 - 199 >/= 200 20-24 Y 0 - 189 190 - 224 >/= 225 >24 Y 0 - 199 200 - 239 >/= 240 All ranges are based on fasting samples. Specific therapeutic targets will vary based on patient-specific cardiac risk. . Pediatric guidelines reference:Pediatrics 2011, 128(S5). Adult guidelines reference: NCEP ATPIII Guidelines, SELIN 2001, 258:2486-97 . Venipuncture immediately after or during the administration of Metamizole may lead to falsely low results. Testing should be performed immediately prior to Metamizole dosing. Performed By: #### T 4FRE #### [address] [address] Cholesterol in HDL [Mass/Vol] 68.0 mg/dL Normal [facility] Comment on above: Result Comment: . AGE VERY LOW LOW NORMAL HIGH 0-19 Y < 35 < 40 40-45 ---- 20-24 Y ---- < 40 >45 ---- >24 Y ---- < 40 40-60 >60 . Performed By: #### T 4FRE #### [address] [address] Cholesterol in LDL [Mass/Vol] 92 mg/dL Normal 0 - 119 [facility] Comment on above: Result Comment: . NEAR BORD AGE DESIRABLE OPTIMAL HIGH HIGH VERY HIGH 0-19 Y 0 - 109 --- 110-129 >/= 130 ---- 20-24 Y 0 - 119 --- 120-159 >/= 160 ---- >24 Y 0 - 99 100-129 130-159 160-189 >/=190 . Performed By: #### T 4FRE #### [address] [address] Cholesterol in VLDL [Mass/Vol] 7 mg/dL Normal 0 - 40 [facility] Comment on above: Performed By: #### T 4FRE #### [address] [address] Cholesterol.total/Chol esterol in HDL [Mass ratio] 2.5 {ratio} Normal [facility] Comment on above: Result Comment: REF VALUES DESIRABLE < 3.4 HIGH RISK > 5.0 Performed By: #### T 4FRE #### [address] [address] NON-HDL CHOLESTEROL 99 mg/dL Normal 0 - 149 [facility] Comment on above: Result Comment: AGE DESIRABLE BORDERLINE HIGH HIGH VERY HIGH 0-19 Y 0 - 119 120 - 144 >/= 145 >/= 160 20-24 Y 0 - 149 150 - 189 >/= 190 ---- >24 Y 30 MG/DL ABOVE LDL CHOLESTEROL GOAL . Performed By: #### T 4FRE #### [address] [address] Triglyceride [Mass/Vol] 33 mg/dL Normal 0 - 149 [facility] Comment on above: Result Comment: . AGE DESIRABLE BORDERLINE HIGH HIGH VERY HIGH 0 D-90 D 19 - 174 ---- ---- ---- 91 D- 9 Y 0 - 74 75 - 99 >/= 100 ---- 10-19 Y 0 - 89 90 - 129 >/= 130 ---- 20-24 Y 0 - 114 115 - 149 >/= 150 ---- >24 Y 0 - 149 150 - 199 200- 499 >/= 500 . Venipuncture immediately after or during the administration of Metamizole may lead to falsely low results. Testing should be performed immediately prior to Metamizole dosing. Performed By: #### T 4FRE #### [address] [address] THYROXINE,FREEon 03-19-2023 THYROXINE,FREE 0.78 ng/dL Normal 0.61 - 1.12 [facility] Comment on above: Result Comment: Thyr oxine Free testing is performed using different testing methodology at [facility] than at other [facility]. Direct result comparisons should only be made within the same method. . Biotin can cause falsely elevated free T4 results. Patients taking a Biotin dose of up to 10 mg/day should refrain from taking Biotin for 24 hours before sample collection. Patient taking a Biotin dose of >10 mg/day should consult with their physician or the laboratory before the blood draw. Performed By: #### T 4FRE #### [address] [address] TSHon 03-19-2023 TSH Qn 5.03 m[IU]/L High 0.44 - 3.98 [facility] Comment on above: Result Comment: TSH testing is performed using different testing methodology at [facility] than at other [facility]. Direct result comparisons should only be made within the same method. Performed By: #### T 4FRE #### [address] [address] VITAMIN B12on 03-19-2023 Cobalamin (Vitamin B12) [Mass/Vol] 324 pg/mL Normal 211 - 911 [facility] Comment on above: Performed By: #### T 4FRE #### [address] [address] CHEST 2 VIEW PA AND LATon CHEST 2 VIEW PA AND LAT Patient Name: JOHNY FREED STUDY: TH CHEST 2 VIEW PA AND LAT; INDICATION: COUGH. COMPARISON: 12/29/2021. ACCESSION NUMBER(S): [id number] ORDERING CLINICIAN: ALEXA LANCASTER FINDINGS: The cardiac silhouette size is within normal limits. There is no focal consolidation, edema or pneumothorax. No sizeable pleural effusion. IMPRESSION: 1. No acute cardiopulmonary process. 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 pelvic floor PT and pt. took home information to read Will call if wants referral RTO annual exam and PRN Chief Complaint Patient is here for yearly exam. Patient does NOT DO self breast exams regularly. LMP 11/06/22 PT WANTED A TEST RAN IN OFFICE, PT HAS BEEN OFF CONTROL FOR A MONTH NOW. HCG WAS NEGATIVE. PT ALSO C/O LEFT OVARY PAIN. PT STATES SHE HAS BEEN HAVING SEVERE CRAMPING ON THE LEFT SIDE. History of Present IllnessPt. presents for annual exam up to date on pap Still with bothersome scar tissue from perineal repair at last , did use estrogen cream for a while d/c contraception and open to next , will start folic acid Review of Systems Constitutional: no fever and no chills. Active Problems Problems Acute respiratory infection (519.8) (J22) Anemia (285.9) (D64.9) Atrophic vaginitis (627.3) (N95.2) Cold sore (054.9) (B00.1) Constipation, acute (564.00) (K59.00) COVID-19 (079.89) (U07.1) Depression, major, single episode, mild (296.21) (F32.0) Dyspnea (786.09) (R06.00) Dyspnea on exertion (786.09) (R06.09) External hemorrhoids (455.3) (K64.4) SOPHIA (generalized anxiety disorder) (300.02) (F41.1) Genital herpes (054.10) (A60.00) Intractable migraine without aura and with status migrainosus (346.13) (G43.011) Iron deficiency anemia (280.9) (D50.9) Low thyroid stimulating hormone (TSH) level (794.5) (R79.89) Moderate persistent asthma without complication (493.90) (J45.40) Mother currently breast-feeding (V24.1) (Z39.1) Other malaise and fatigue (780.79) (R53.81,R53.83) Palpitations (785.1) (R00.2) Persistent cough (786.2) (R05.3) exam (V24.2) (Z39.2) Screen for STD (sexually transmitted disease) (V74.5) (Z11.3) Screening for cervical cancer (V76.2) (Z12.4) Seasonal allergies (477.9) (J30.2) Shortness of breath (786.05) (R06.02) Syncope (780.2) (R55) Tachycardia (785.0) (R00.0) Thyroglossal cyst (759.2) (Q89.2) Thyroid pain (246.8) (E07.89) Thyroiditis (245.9) (E06.9) TMJ click (524.64) (R29.898) Urinary frequency (788.41) (R35.0) Vaginal odor (625.8) (N89.8) Vaginal pain (625.9) (R10.2) Wheezing (786.07) (R06.2) Past Medical History Problems History of Sivan thyroiditis (V12.29) (Z86.39) History of herpes simplex infection (V12.09) (Z86.19) 1 AND 2 History of Menstruation age 11 History of Normal vaginal delivery (650) (O80) 11/07/2021; 39 WEEKS; VAGINAL; MALE; 8LBS 6OZ History of Pap test, as part of routine gynecological examination (V76.2) (Z01.419) 05/01/2021; NIL History of Rh negative, antepartum (646.83) (O26.899,Z67.91) Resolved Date: 10 Nov 2021 Surgical History Problems History of Oral surgery History of Thyroglossal duct cyst excision History of Tonsillectomy Family History Mother No pertinent family history Father No pertinent family history Social History Problems Coffee Former tobacco use (V15.82) (Z87.891) Vape pen, quit on 11/10/2020 History of marijuana use (305.23) (F12.91) Rarely consumes alcohol (V49.89) (Z78.9) Sexually active Allergies Medication Dilaudid Syncope; Recorded By: Johny Saleh; 09/08/2019 2:40:15 PM hydrocodone Syncope; Recorded By: Mia Richter; 10/29/2019 1:12:46 PM Vicodin TABS Syncope; Recorded By: Johny Saleh; 09/08/2019 2:40:15 PM Additional reactions - passed out Latex Gloves Recorded By: Wilda Musa; 03/20/2021 1:18:47 PM NonMedication Latex Recorded By: Wilda Musa; 03/20/2021 1:18:47 PM Current Meds Medication NameInstruction Estradiol 0.1 MG/GM Vaginal CreamINSERT 1/2 APPLICATORFUL (2GM) VAGINALLY THREE TIMES WEEKLY. TABSTake 1 tablet daily Probiotic CAPS Vitals Vital Signs Recorded: 06Dec2022 01:21PM [id number] [id number] Height5 ft 2 in Oeptqa247 lb 5.71 oz BMI Fhmgwfdwxn81.85 kg/m2 BSA Calculated1.59 [id number] Physical Exam Constitutional: Alert and in no acute distress. Well developed, well nourished Pulmonary: No respiratory distress Psychiatric: alert and oriented x 3., affect normal to patient baseline, mood: appropriate and judgment and insight: intact Results/Data IO HCG, Urine [id number] 01:23PMRochelle Boyer HCG LOT [id number] EXP 2023-11-13 Test NameResultFlagReference IO Urine hCGNegative Signatures Electronically signed by : Rochelle Boyer APRN-OTF [employer]; Dec 06 2022 4:18PM EST (Author) Normal [facility] Office Visit (Internal Medic ine)on 10-17-2022 Follow-up visit Diagnoses/Problems Assessed Thyroiditis (245.9) (E06.9) Mother currently breast-feeding (V24.1) (Z39.1) Other malaise and fatigue (780.79) (R53.81,R53.83) Seasonal allergies (477.9) (J30.2) Tachycardia (785.0) (R00.0) Patient Discussion/Summary Due to COVID 19 threat, virtual appointment completed with Loffles kristi f/u PRN Provider Impressions 1.Complexity: More than 1 stable chronic condition addressed 2.Data: Tests interpreted and or ordered, took independent history or records reviewed 3.Risks: Moderate Risk due to nature of medical conditions /comorbidity or meds ordered or surgical procedure referral Reviewed notes on file Reviewed labs and Testing on file Depression - stable off meds allergies and asthma -cont on rescue inhaler prn. she has symbicort if needed for routine use if she has a flare up thyroid - given her hx suggest labs annually and sooner pending symptoms consider set up labs and visit in 6-12 mo - pt states will call to schedule when she is ready Patient to follow diet low in cholesterol, fat, and sodium. Patient is advised to increase Exercise. Patient is recommended to maintain healthy weight. Reviewed Meds and discussed common side effects Continue as directed Patient is strongly advised to be compliant with recommendations. Return to Clinic sooner if needed. Patient denies further questions/concerns at this time Chief Complaint An interactive audio and video telecommunication system which permits real time communications between the patient (at the originating site) and provider (at the distant site) was utilized to provide this telehealth service. Verbal consent was requested and obtained from JOHNY FREED on this date, 10/17/2022 10:40 AM , for a telehealth visit. Pt vv 6 mnth fu with labs. History of Present IllnessPatient presents today for..... 1 to review labs 2 med check cardio concerns - symptoms are currently stable and off meds mood -symptoms are currently stable and off meds hemorrhoids - mindful of diet thyroid - occasional hyperthyroid in the past- currently off meds. In Dec she question symptoms given her BP changes, heart rate, urinary symptoms, hair loss, fatigue - symptoms have resolved and denies changes as to why allergies /asthma - on symbicort and rescue inhaler prn. previously discussed consider singulair but chose to help given she is . she believes symptoms have improved and is only using rescue inhaler at this time 1 year old son Tye and he is doing well. She cont to breastfeed Review of Systems Review of Systems Constitutional: No fever, No chills, No weakness, fatigue- improving Eye: No blurring, No visual disturbances Ear/Nose/Mouth/Throat: No ear pain, No sore throat, No nasal congestion Respiratory: No SOB, No cough Cardiovascular: No chest pain, No peripheral edema tachycardia- improving dizziness on occasion and low BP on occasion - improving Gastrointestinal: No nausea, No vomiting, No diarrhea, Genitourinary: No dysuria Hematology/Lymphatics: No swollen lymph glands Endocrine: No cold intolerance, No heat intolerance hair loss - improving Immunologic: No recurrent fevers, No recurrent infections Musculoskeletal: No joint pain, No muscle pain Integumentary: No rash, No pruritus Neurologic: Alert and Oriented x 4: No REEVES Psychiatric: No anxiety or depression Active Problems Problems Acute respiratory infection (519.8) (J22) Anemia (285.9) (D64.9) Atrophic vaginitis (627.3) (N95.2) Cold sore (054.9) (B00.1) Constipation, acute (564.00) (K59.00) COVID-19 (079.89) (U07.1) Depression, major, single episode, mild (296.21) (F32.0) Dyspnea (786.09) (R06.00) Dyspnea on exertion (786.09) (R06.09) External hemorrhoids (455.3) (K64.4) SOPHIA (generalized anxiety disorder) (300.02) (F41.1) Genital herpes (054.10) (A60.00) Intractable migraine without aura and with status migrainosus (346.13) (G43.011) Iron deficiency anemia (280.9) (D50.9) Low thyroid stimulating hormone (TSH) level (794.5) (R79.89) Moderate persistent asthma without complication (493.90) (J45.40) Mother currently breast-feeding (V24.1) (Z39.1) Other malaise and fatigue (780.79) (R53.81,R53.83) Palpitations (785.1) (R00.2) Persistent cough (786.2) (R05.3) exam (V24.2) (Z39.2) Screen for STD (sexually transmitted disease) (V74.5) (Z11.3) Screening for cervical cancer (V76.2) (Z12.4) Seasonal allergies (477.9) (J30.2) Shortness of breath (786.05) (R06.02) Syncope (780.2) (R55) Tachycardia (785.0) (R00.0) Thyroglossal cyst (759.2) (Q89.2) Thyroid pain (246.8) (E07.89) Thyroiditis (245.9) (E06.9) TMJ click (524.64) (R29.898) Urinary frequency (788.41) (R35.0) Vaginal odor (625.8) (N89.8) Vaginal pain (625.9) (R10.2) Wheezing (786.07) (R06.2) Past Medical History Problems History of Sivan thyroiditis (V12.29) (Z86.39) History of herpes simplex infection (V12.09 (more content not included)... [facility] CBC AND DIFFERENTIALon 09-24 % AUTOMATED IMMATURE GRAN 0.2 % Normal 0.0 - 0.9 [facility] Comment on above: Result Comment: Jannie ture Granulocyte Count (IG) includes promyelocytes, myelocytes and metamyelocytes but does not include bands. Percent differential counts (%) should be interpreted in the context of the absolute cell counts (cells/L). Performed By: #### G ENLO #### [facility] [address] [place] [address] Basophils (Bld) [#/Vol] 0.07 10*3/uL Normal 0.00 - 0.10 [facility] Comment on above: Performed By: #### G ENLO #### [facility] [address] [place] [address] Basophils/100 WBC (Bld) 1.2 % Normal 0.0 - 2.0 [facility] Comment on above: Performed By: #### G ENLO #### [facility] [address] [place] [address] Eosinophils (Bld) [#/Vol] 0.22 10*3/uL Normal 0.00 - 0.70 [facility] Comment on above: Performed By: #### G ENLO #### [facility] [address] [place] [address] Eosinophils/100 WBC (Bld) 3.8 % Normal 0.0 - 6.0 [facility] Comment on above: Performed By: #### G ENLO #### [facility] [address] [place] [address] Erythrocyte distribution width (RBC) [Ratio] 11.9 % Normal 11.5 - 14.5 [facility] Comment on above: Performed By: #### G ENLO #### [facility] [address] [place] [address] Hematocrit (Bld) [Volume fraction] 37.4 % Normal 36.0 - 46.0 [facility] Comment on above: Performed By: #### G ENLO #### [facility] [address] [place] [address] Hemoglobin (Bld) [Mass/Vol] 12.4 g/dL Normal 12.0 - 16.0 [facility] Comment on above: Performed By: #### G ENLO #### [facility] [address] [place] [address] Lymphocytes (Bld) [#/Vol] 1.74 10*3/uL Normal 1.20 - 4.80 [facility] Comment on above: Performed By: #### G ENLO #### [facility] [address] [place] [address] Lymphocytes/100 WBC (Bld) 30.3 % Normal 13.0 - 44.0 [facility] Comment on above: Performed By: #### G ENLO #### [facility] [address] [place] [address] MCHC (RBC) [Mass/Vol] 33.2 g/dL Normal 32.0 - 36.0 [facility] Comment on above: Performed By: #### G ENLO #### [facility] [address] [place] [address] MCV (RBC) [Entitic vol] 86 fL Normal 80 - 100 [facility] Comment on above: Performed By: #### G ENLO #### [facility] [address] [place] [address] Monocytes (Bld) [#/Vol] 0.38 10*3/uL Normal 0.10 - 1.00 [facility] Comment on above: Performed By: #### G ENLO #### [facility] [address] [place] [address] Monocytes/100 WBC (Bld) 6.6 % Normal 2.0 - 10.0 [facility] Comment on above: Performed By: #### G ENLO #### [facility] [address] [place] [address] Neutrophils (Bld) [#/Vol] 3.32 10*3/uL Normal 1.20 - 7.70 [facility] Comment on above: Result Comment: Perc ent differential counts (%) should be interpreted in the context of the absolute cell counts (cells/L). Performed By: #### G ENLO #### [facility] [address] [place] [address] Neutrophils/100 WBC (Bld) 57.9 % Normal 40.0 - 80.0 [facility] Comment on above: Performed By: #### Leyla ENLO #### [facility] [address] [place] [address] Platelets (Bld) [#/Vol] 288 10*3/uL Normal 150 - 450 [facility] Comment on above: Performed By: #### G ENLO #### [facility] [address] [place] [address] RBC 4.33 x10E12/L Normal 4.00 - 5.20 [facility] [place] Comment on above: Performed By: #### Leyla ENLO #### [facility] [address] [place] [address] WBC (Bld) [#/Vol] 5.7 10*3/uL Normal 4.4 - 11.3 [facility] Comment on above: Performed By: #### G ENLO #### [facility] [address] [place] [address] Complete Blood Count + Diffe reyes 09-24-2022 Basophils/100 WBC (Bld) 1.2 % 0.0 - 2.0 [facility] Work Phone: [phone] Erythrocyte distribution width (RBC) [Ratio] 11.9 % See Below [facility] Work Phone: [phone] Comment on above: Reference Range: 11. 5 - 14.5 Hematocrit (Bld) [Volume fraction] 37.4 % See Below [facility] Work Phone: [phone] Comment on above: Reference Range: 36. 0 - 46.0 Hemoglobin (Bld) [Mass/Vol] 12.4 g/dL See Below [facility] Work Phone: [phone] Comment on above: Reference Range: 12. 0 - 16.0 Lymphocytes/100 WBC (Bld) 30.3 % See Below [facility] Work Phone: [phone] Comment on above: Reference Range: 13. 0 - 44.0 MCHC (RBC) [Mass/Vol] 33.2 g/dL See Below [facility] Work Phone: [phone] Comment on above: Reference Range: 32. 0 - 36.0 MCV (RBC) [Entitic vol] 86 fL 80 - 100 [facility] Work Phone: [phone] Monocytes/100 WBC (Bld) 6.6 % 2.0 - 10.0 [facility] Work Phone: [phone] Neutrophils/100 WBC (Bld) 57.9 % See Below [facility] Work Phone: [phone] Comment on above: Reference Range: 40. 0 - 80.0 Platelets (Bld) [#/Vol] 288 10*3/uL 150 - 450 [facility] Work Phone: [phone] RBC (Bld) [#/Vol] 4.33 {x10E12/L} See Below [facility] Work Phone: Comment on above: Reference Range: 4.0 0 - 5.20 WBC (Bld) [#/Vol] 5.7 10*3/uL 4.4 - 11.3 [facility] Work Phone: Complete Blood Count + Differential 0.07 {x10E9/L} See Below [facility] Work Phone: Comment on above: Reference Range: 0.0 0 - 0.10 Complete Blood Count + Differential 0.22 {x10E9/L} See Below [facility] Work Phone: Comment on above: Reference Range: 0.0 0 - 0.70 Complete Blood Count + Differential 0.38 {x10E9/L} See Below [facility] Work Phone: Comment on above: Reference Range: 0.1 0 - 1.00 Complete Blood Count + Differential 1.74 {x10E9/L} See Below [facility] Work Phone: Comment on above: Reference Range: 1.2 0 - 4.80 Complete Blood Count + Differential 3.32 {x10E9/L} See Below [facility] Work Phone: Comment on above: Reference Range: 1.2 0 - 7.70 Percent differential counts (%) should be interpreted in the context of the absolute cell counts (cells/L). Complete Blood Count + Differential 3.8 % 0.0 - 6.0 [facility] Work Phone: Complete Blood Count + Differential 0.2 % 0.0 - 0.9 [facility] Work Phone: Comment on above: Immature Granulocyte Count (IG) includes promyelocytes, myelocytes and metamyelocytes but does not include bands. Percent differential counts (%) should be interpreted in the context of the absolute cell counts (cells/L). Cult, Urineon 09-24-2022 Bacteria identified Cx Nom (U) [facility] Work Phone: [phone] FERRITINon 09-24-2022 FERRITIN 41 ug/L Normal 8 - 150 [facility] Comment on above: Performed By: #### F COURTNEY #### [address] [address] Ferritin, Serumon 09-24-2022 Ferritin [Mass/Vol] 41 ug/L 8 - 150 [facility] Work Phone: [phone] IO UA (automated w/o microsc opy)on 09-24-2022 Protein (U) [Mass/Vol] Negative [facility] Work Phone: [phone] IO UA (automated w/o microscopy) Negative [facility] Work Phone: [phone] IO UA (automated w/o microscopy) Normal (0.2-1.0 mg/dl) [facility] Work Phone: [phone] IO UA (automated w/o microscopy) 7.0 1 [facility] Work Phone: [phone] IO UA (automated w/o microscopy) 1.025 1 [facility] Work Phone: [phone] IO UA (automated w/o microscopy) Clear [facility] Work Phone: [phone] IO UA (automated w/o microscopy) Yellow [facility] Work Phone: IRON + TIBCon 09-24-2022 % SATURATION 27 % Normal 25 - 45 [facility] Comment on above: Performed By: #### I ZHANNA #### [address] [address] Iron [Mass/Vol] 105 ug/dL Normal 35 - 150 [facility] Comment on above: Performed By: #### I MIREILLET #### [address] [address] TIBC 392 ug/dL Normal 240 - 445 [facility] Comment on above: Performed By: #### I ZHANNA #### [address] [address] Laboratory - Chemistry and C hemistry - challengeon 09-24-2022 Iron [Mass/Vol] 105 ug/dL 35 - 150 [facility] Work Phone: Iron binding capacity [Mass/Vol] 392 ug/dL 240 - 445 [facility] Work Phone: No Panel Informationon 09-24 27 % 25 - 45 [facility] Work Phone: Office Visit (Internal Medic ine)on 09-24-2022 Follow-up visit Diagnoses/Problems Assessed Urinary frequency (788.41) (R35.0) Other malaise and fatigue (780.79) (R53.81,R53.83) Tachycardia (785.0) (R00.0) Palpitations (785.1) (R00.2) Mother currently breast-feeding (V24.1) (Z39.1) Moderate persistent asthma without complication (493.90) (J45.40) Thyroiditis (245.9) (E06.9) Orders Urinary frequency Cult, Urine; Status:In Progress - Specimen/Data Collected; Done: 24Sep2022 Perform:Lab Services - Lab To Draw (Non-Blood Test); Due:23Dec2022;Ordered; For:Urinary frequency; Ordered By:Chrystal Alamo; IO UA (automated w/o microscopy); Status:Resulted - Requires Verification; Done: 24Sep2022 02:18PM Performed:In Office; Due:23Dec2022;Ordered; For:Urinary frequency; Ordered By:Chrystal Alamo; Patient Discussion/Summary f/u as before pt to call for urine results on sat/ Provider Impressions 1.Complexity: More than 1 stable chronic condition addressed 2.Data: Tests interpreted and or ordered, took independent history or records reviewed 3.Risks: Moderate Risk due to nature of medical conditions /comorbidity or meds ordered or surgical procedure referral Reviewed notes on file Reviewed labs and Testing on file Depression - stable off meds allergies and asthma -cont on rescue inhaler prn. she has symbicort if needed for routine use if she has a flare up thyroid - given her hx and off symptoms - to have labs done now in office urine was WNL but will send to culture and pt to call on sat/ for results will aim for visit in oct but consider pending findings and symptoms visit sooner or rescheduling pushing her visit out Patient to follow diet low in cholesterol, fat, and sodium. Patient is advised to increase Exercise. Patient is recommended to maintain healthy weight. Reviewed Meds and discussed common side effects Continue as directed Patient is strongly advised to be compliant with recommendations. Return to Clinic sooner if needed. Patient denies further questions/concerns at this time Chief Complaint URINARY FREQUENCY X 7-10 DAYS. PT ALSO HAS THYROID ISSUES. PT IS CURRENTLY History of Present IllnessPatient presents today for..... 1 urinary symptoms x 1 week freq - in office urine - neg blood, leukocytes, nitrates - hx of UTI symptoms are mild and given findings suggest she cont with fluids and cranberry supplement and will send to culture. pt to call wed for results or call sooner if sx worsen for start of aBx 2 med check cardio concerns - symptoms are currently stable and off meds mood -symptoms are currently stable and off meds hemorrhoids - mindful of diet thyroid - occasional hyperthyroid in the past- currently off meds. she does question symptoms given her BP changes, heart rate, urinary symptoms, hair loss, fatigue - she is due for labs to be done now allergies /asthma - on symbicort and rescue inhaler prn. previously discussed consider singulair but chose to help given she is . she believes symptoms have improved and is only using rescue inhaler at this time 1 year old son Tye and he is doing well. She cont to breastfeed Review of Systems Review of Systems Constitutional: No fever, No chills, No weakness, fatigue Eye: No blurring, No visual disturbances Ear/Nose/Mouth/Throat: No ear pain, No sore throat, No nasal congestion Respiratory: No SOB, No cough Cardiovascular: No chest pain, No peripheral edema tachycardia dizziness on occasion and low BP on occasion Gastrointestinal: No nausea, No vomiting, No diarrhea, Genitourinary: No dysuria urinary freq Hematology/Lymphatics: No swollen lymph glands Endocrine: No cold intolerance, No heat intolerance hair loss Immunologic: No recurrent fevers, No recurrent infections Musculoskeletal: No joint pain, No muscle pain Integumentary: No rash, No pruritus Neurologic: Alert and Oriented x 4: No REEVES Psychiatric: No anxiety or depression Active Problems Problems Acute respiratory infection (519.8) (J22) Anemia (285.9) (D64.9) Atrophic vaginitis (627.3) (N95.2) Cold sore (054.9) (B00.1) Constipation, acute (564.00) (K59.00) COVID-19 (079.89) (U07.1) Depression, major, single episode, mild (296.21) (F32.0) Dyspnea (786.09) (R06.00) Dyspnea on exertion (786.09) (R06.09) External hemorrhoids (455.3) (K64.4) SOPHIA (generalized anxiety disorder) (300.02) (F41.1) Genital herpes (054.10) (A60.00) Intractable migraine without aura and with status migrainosus (346.13) (G43.011) Iron deficiency anemia (280.9) (D50.9) Low thyroid stimulating hormone (TSH) level (794.5) (R79.89) Moderate persistent asthma without complication (493.90) (J45.40) Mother currently breast-feeding (V24.1) (Z39.1) Other malaise and fatigue (780.79) (R53.81,R53.83) Palpitations (785.1) (R00.2) Persistent cough (786.2) (R05.3) exam (V24.2) (Z39.2) Screen for STD (sexually transmitted disease) (V74.5) (Z11.3) Scre (more content not included)... Normal [facility] T4 - Free Thyroxine, Serumon 09-24-2022 Free T4 [Mass/Vol] 0.88 ng/dL See Below -[facility] Work Phone: Comment on above: Reference Range: 0.6 1 - 1.12 Thyroxine Free testing is performed using different testing methodology at [facility] than at other [facility]. Direct result comparisons should only be made within the same method.. Biotin can cause falsely elevated free T4 results. Patients taking a Biotin dose of up to 10 mg/day should refrain from taking Biotin for 24 hours before sample collection. Patient taking a Biotin dose of >10 mg/day should consult with their physician or the laboratory before the blood draw. THYROXINE,FREEon 09-24-2022 THYROXINE,FREE 0.88 ng/dL Normal 0.61 - 1.12 [facility] Comment on above: Result Comment: Thyr oxine Free testing is performed using different testing methodology at [facility] than at other [facility]. Direct result comparisons should only be made within the same method. . Biotin can cause falsely elevated free T4 results. Patients taking a Biotin dose of up to 10 mg/day should refrain from taking Biotin for 24 hours before sample collection. Patient taking a Biotin dose of >10 mg/day should consult with their physician or the laboratory before the blood draw. Performed By: #### G ENLO #### [facility] [address] [place] [address] TSHon 09-24-2022 TSH Qn 3.72 m[IU]/L Normal 0.44 - 3.98 [facility] Comment on above: Result Comment: TSH testing is performed using different testing methodology at [facility] than at [facility]. Direct result comparisons should only be made within the same method. Performed By: #### T SH2 #### [facility] [address] [place] [address] TSH - Thyroid Stimulating Ho rmone, Serumon 09-24-2022 TSH Qn 3.72 m[IU]/L See Below [facility] Work Phone: Comment on above: Reference Range: 0.4 4 - 3.98 TSH testing is performed using different testing methodology at [facility] than at [facility]. Direct result comparisons should only be made within the same method. Tobacco Screening.on 022 Fall risk assessment a) No falls within the last year [facility] Work Phone: Tobacco use status CPHS b) No [facility] Work Phone: URINE CULTURE,BACTERIALon URINE CULTURE,BACTERIAL PATIENT: JOHNY FREED LOCATION: [facility] BILL#: [id number] : [birth year] AGE: SEX: F ORDERED BY: CHRYSTAL ALAOM SOURCE: URINE COLLECTED: 09/24/22 14:51 ANTIBIOTICS AT SANGEET[facility].: RECEIVED : 09/24/22 23:59 SITE: Clean Catch/Voided R E S U L T S URINE CULTURE,BACTERIAL FINAL 09/26/22 03:10 NO SIGNIFICANT GROWTH. Normal [facility] Comment on above: Performed By: #### U RINC #### [facility] [address] [place] [address] VITAMIN B12on 09-24-2022 Cobalamin (Vitamin B12) [Mass/Vol] 331 pg/mL Normal 211 - 911 [facility] Comment on above: Performed By: #### G ENLO #### [facility] [address] [place] [address] Vitamin B12, Serumon 022 Cobalamin (Vitamin B12) [Mass/Vol] 331 pg/mL 211 - 911 [facility] Work Phone: CBC AND DIFFERENTIALon 03-20 Basophils (Bld) [#/Vol] 0.10 10*3/uL Normal 0.00 - 0.10 [facility] Comment on above: Performed By: #### C BCDF #### [address] [address] Eosinophils (Bld) [#/Vol] 0.70 10*3/uL Normal 0.00 - 0.70 [facility] Comment on above: Performed By: #### C BCDF #### [address] [address] Eosinophils/100 WBC (Bld) 13.8 % Normal 0.0 - 6.0 [facility] Comment on above: Performed By: #### C BCDF #### [address] [address] Lymphocytes (Bld) [#/Vol] 1.70 10*3/uL Normal 1.20 - 4.80 [facility] Comment on above: Performed By: #### C BCDF #### [address] [address] Monocytes (Bld) [#/Vol] 0.40 10*3/uL Normal 0.10 - 1.00 [facility] Comment on above: Performed By: #### C BCDF #### [address] [address] Neutrophils (Bld) [#/Vol] 2.20 10*3/uL Normal 1.20 - 7.70 [facility] Comment on above: Result Comment: Perc ent differential counts (%) should be interpreted in the context of the absolute cell counts (cells/L). Performed By: #### C BCDF #### [address] [address] RBC 4.42 x10E12/L Normal 4.00 - 5.20 [facility] [place] Comment on above: Performed By: #### C BCDF #### [address] [address] COMPREHENSIVE PANELon 2021 Albumin [Mass/Vol] 4.4 g/dL Normal 3.4 - 5.0 [facility] Comment on above: Performed By: #### G ENLO #### [facility] [address] [place] [address] ALP [Catalytic activity/Vol] 93 U/L Normal 33 - 110 [facility] Work Phone: Comment on above: Performed By: #### G ENLO #### [facility] [address] [place] [address] ALT [Catalytic activity/Vol] 11 U/L Normal 7 - 45 [facility] Comment on above: Result Comment: Martha ents treated with Sulfasalazine may generate falsely decreased results for ALT. Performed By: #### G ENLO #### [facility] [address] [place] [address] Anion gap [Moles/Vol] 12 mmol/L Normal 10 - 20 [facility] Work Phone: Comment on above: Performed By: #### G ENLO #### [facility] [address] [place] [address] AST [Catalytic activity/Vol] 12 U/L Normal 9 - 39 [facility] Comment on above: Performed By: #### G ENLO #### [facility] [address] [place] [address] Bilirubin [Mass/Vol] 0.5 mg/dL Normal 0.0 - 1.2 [facility] Work Phone: Comment on above: Performed By: #### G ENLO #### [facility] [address] [place] [address] Calcium [Mass/Vol] 9.4 mg/dL Normal 8.6 - 10.3 [facility] Work Phone: Comment on above: Performed By: #### G ENLO #### [facility] [address] [place] [address] Chloride [Moles/Vol] 107 mmol/L Normal 98 - 107 [facility] Work Phone: Comment on above: Performed By: #### G ENLO #### [facility] [address] [place] [address] Creatinine [Mass/Vol] 0.70 mg/dL Normal 0.50 - 1.05 [facility] Work Phone: Comment on above: Reference Range: 0.5 0 - 1.05 Performed By: #### G ENLO #### [facility] [address] [place] [address] eGFR FEMALE >90 Normal >90 [facility] Comment on above: Result Comment: CALC ULATIONS OF ESTIMATED GFR ARE PERFORMED USING THE 2020 CKD-EPI STUDY REFIT EQUATION WITHOUT THE RACE VARIABLE FOR THE IDMS-TRACEABLE CREATININE METHODS. https://jasn.asnjournals.org/content//ASN.78491 [address] Performed By: #### G ENLO #### [facility] [address] [place] [address] Glucose [Mass/Vol] 88 mg/dL Normal 74 - 99 [facility] Work Phone: Comment on above: Performed By: #### G ENLO #### [facility] [address] [place] [address] HCO3 (Bld) [Moles/Vol] 24 mmol/L Normal 21 - 32 [facility] Comment on above: Performed By: #### G ENLO #### [facility] [address] [place] [address] Potassium [Moles/Vol] 3.8 mmol/L Normal 3.5 - 5.3 [facility] Work Phone: Comment on above: Performed By: #### G ENLO #### [facility] [address] [place] [address] Protein [Mass/Vol] 7.4 g/dL Normal 6.4 - 8.2 [facility] Work Phone: Comment on above: Performed By: #### G ENLO #### [facility] [address] [place] [address] Sodium [Moles/Vol] 139 mmol/L Normal 136 - 145 [facility] Work Phone: Comment on above: Performed By: #### G ENLO #### [facility] [address] [place] [address] Urea nitrogen [Mass/Vol] 15 mg/dL Normal 6 - 23 [facility] Work Phone: Comment on above: Performed By: #### G ENLO #### [facility] [address] [place] [address] Complete Blood Count + Diffe reyes 03-20-2022 Basophils/100 WBC (Bld) 1.3 % Normal 0.0 - 2.0 [facility] Work Phone: Comment on above: Performed By: #### C BCDF #### [facility] [address] [place] [address] Erythrocyte distribution width (RBC) [Ratio] 12.8 % Normal 11.5 - 14.5 [facility] Work Phone: Comment on above: Reference Range: 11. 5 - 14.5 Performed By: #### C BCDF #### [address] [address] Hematocrit (Bld) [Volume fraction] 36.2 % Normal 36.0 - 46.0 [facility] Work Phone: Comment on above: Reference Range: 36. 0 - 46.0 Performed By: #### C BCDF #### [address] [address] Hemoglobin (Bld) [Mass/Vol] 12.4 g/dL Normal 12.0 - 16.0 [facility] Work Phone: [phone] Comment on above: Reference Range: 12. 0 - 16.0 Performed By: #### C BCDF #### [address] [address] Lymphocytes/100 WBC (Bld) 33.9 % Normal 13.0 - 44.0 [facility] Work Phone: [phone] Comment on above: Reference Range: 13. 0 - 44.0 Performed By: #### C BCDF #### [address] [address] MCHC (RBC) [Mass/Vol] 34.2 g/dL Normal 32.0 - 36.0 [facility] Work Phone: Comment on above: Reference Range: 32. 0 - 36.0 Performed By: #### C BCDF #### [address] [address] MCV (RBC) [Entitic vol] 82 fL Normal 80 - 100 [facility] Work Phone: [phone] Comment on above: Performed By: #### C BCDF #### [address] [address] Monocytes/100 WBC (Bld) 8.7 % Normal 2.0 - 10.0 [facility] Work Phone: Comment on above: Performed By: #### C BCDF #### [address] [address] Neutrophils/100 WBC (Bld) 42.3 % Normal 40.0 - 80.0 [facility] Work Phone: [phone] Comment on above: Reference Range: 40. 0 - 80.0 Performed By: #### C BCDF #### [address] [address] Platelets (Bld) [#/Vol] 291 10*3/uL Normal 150 - 450 [facility] Work Phone: [phone] Comment on above: Performed By: #### C BCDF #### [address] [address] WBC (Bld) [#/Vol] 5.1 10*3/uL Normal 4.4 - 11.3 [facility] Work Phone: [phone] Comment on above: Performed By: #### C BCDF #### [address] [address] RBC (Bld) [#/Vol] 4.42 {x10E12/L} See Below [facility] Work Phone: [phone] Comment on above: Reference Range: 4.0 0 - 5.20 Complete Blood Count + Differential 0.10 {x10E9/L} See Below [facility] Work Phone: [phone] Comment on above: Reference Range: 0.0 0 - 0.10 Complete Blood Count + Differential 0.70 {x10E9/L} See Below [facility] Work Phone: [phone] Comment on above: Reference Range: 0.0 0 - 0.70 Complete Blood Count + Differential 0.40 {x10E9/L} See Below [facility] Work Phone: [phone] Comment on above: Reference Range: 0.1 0 - 1.00 Complete Blood Count + Differential 1.70 {x10E9/L} See Below [facility] Work Phone: Comment on above: Reference Range: 1.2 0 - 4.80 Complete Blood Count + Differential 2.20 {x10E9/L} See Below [facility] Work Phone: Comment on above: Reference Range: 1.2 0 - 7.70 Percent differential counts (%) should be interpreted in the context of the absolute cell counts (cells/L). Complete Blood Count + Differential 13.8 % 0.0 - 6.0 [facility] Work Phone: FERRITINon 03-20-2022 FERRITIN 40 ug/L Normal 8 - 150 [facility] Comment on above: Performed By: #### F ERRI #### [facility] [address] [place] [address] Ferritin, Serumon 03-20-2022 Ferritin [Mass/Vol] 40 ug/L 8 - 150 [facility] Work Phone: IRON + TIBCon 03-20-2022 % SATURATION 24 % Low 25 - 45 [facility] Comment on above: Performed By: #### G ENLO #### [facility] [address] [place] [address] Iron [Mass/Vol] 102 ug/dL Normal 35 - 150 [facility] Work Phone: Comment on above: Performed By: #### G ENLO #### [facility] [address] [place] [address] TIBC 419 ug/dL Normal 240 - 445 [facility] Comment on above: Performed By: #### G ENLO #### [facility] [address] [place] [address] LIPID PANEL (CORONARY RISK 2 )on 03-20-2022 Cholesterol in VLDL [Mass/Vol] 8 mg/dL Normal 0 - 40 [facility] Comment on above: Performed By: #### G ENLO #### [facility] [address] [place] [address] NON-HDL CHOLESTEROL 96 mg/dL Normal 0 - 149 [facility] Comment on above: Result Comment: AGE DESIRABLE BORDERLINE HIGH HIGH VERY HIGH 0-19 Y 0 - 119 120 - 144 >/= 145 >/= 160 20-24 Y 0 - 149 150 - 189 >/= 190 ---- >24 Y 30 MG/DL ABOVE LDL CHOLESTEROL GOAL . Performed By: #### G ENLO #### [facility] [address] [place] [address] Laboratory - Chemistry and C hemistry - challengeon 03-20-2022 Albumin BCP dye [Mass/Vol] 4.4 g/dL 3.4 - 5.0 [facility] Work Phone: ALT With P-5'-P [Catalytic activity/Vol] 11 U/L 7 - 45 [facility] Work Phone: Comment on above: Patients treated wit h Sulfasalazine may generate falsely decreased results for ALT. AST With P-5'-P [Catalytic activity/Vol] 12 U/L 9 - 39 [facility] Work Phone: CO2 [Moles/Vol] 24 mmol/L 21 - 32 [facility] Work Phone: Iron binding capacity [Mass/Vol] 419 ug/dL 240 - 445 [facility] Work Phone: Lipid Panelon 03-20-2022 Cholesterol [Mass/Vol] 170 mg/dL Normal 0 - 199 [facility] Work Phone: Comment on above: . AGE DESIRABLE BORD JOCELYN HIGH HIGH 0-19 Y 0 - 169 170 - 199 >/= 200 20-24 Y 0 - 189 190 - 224 >/= 225 >24 Y 0 - 199 200 - 239 >/= 240 All ranges are based on fasting samples. Specific therapeutic targets will vary based on patient-specific cardiac risk.. Pediatric guidelines reference:Pediatrics 2011, 128(S5). Adult guidelines reference: NCEP ATPIII Guidelines, SELIN 2001, 258:2486-97. Venipuncture immediately after or during the administration of Metamizole may lead to falsely low results. Testing should be performed immediately prior to Metamizole dosing. Result Comment: . AGE DESIRABLE BORDERLINE HIGH HIGH 0-19 Y 0 - 169 170 - 199 >/= 200 20-24 Y 0 - 189 190 - 224 >/= 225 >24 Y 0 - 199 200 - 239 >/= 240 All ranges are based on fasting samples. Specific therapeutic targets will vary based on patient-specific cardiac risk. . Pediatric guidelines reference:Pediatrics 2011, 128(S5). Adult guidelines reference: NCEP ATPIII Guidelines, SELIN 2001, 258:2486-97 . Venipuncture immediately after or during the administration of Metamizole may lead to falsely low results. Testing should be performed immediately prior to Metamizole dosing. Performed By: #### G ENLO #### [facility] [address] [place] [address] Cholesterol in HDL [Mass/Vol] 74.0 mg/dL Normal [facility] Work Phone: Comment on above: . AGE VERY LOW LOW N ORMAL HIGH 0-19 Y < 35 < 40 40-45 ---- 20-24 Y ---- < 40 >45 ---- >24 Y ---- < 40 40-60 >60. Result Comment: . AGE VERY LOW LOW NORMAL HIGH 0-19 Y < 35 < 40 40-45 ---- 20-24 Y ---- < 40 >45 ---- >24 Y ---- < 40 40-60 >60 . Performed By: #### G ENLO #### [facility] [address] [place] [address] Cholesterol in LDL [Mass/Vol] 88 mg/dL Normal 0 - 119 [facility] Work Phone: Comment on above: . NEAR BORD AGE CONNIE RABLE OPTIMAL HIGH HIGH VERY HIGH 0-19 Y 0 - 109 --- 110-129 >/= 130 ---- 20-24 Y 0 - 119 --- 120-159 >/= 160 ---- >24 Y 0 - 99 100-129 130-159 160-189 >/=190. Result Comment: . NEAR BORD AGE DESIRABLE OPTIMAL HIGH HIGH VERY HIGH 0-19 Y 0 - 109 --- 110-129 >/= 130 ---- 20-24 Y 0 - 119 --- 120-159 >/= 160 ---- >24 Y 0 - 99 100-129 130-159 160-189 >/=190 . Performed By: #### G ENLO #### [facility] [address] [place] [address] Cholesterol.total/Chol esterol in HDL [Mass ratio] 2.3 {ratio} Normal [facility] Work Phone: Comment on above: REF VALUESDESIRABLE < 3.4HIGH RISK > 5.0 Result Comment: REF VALUES DESIRABLE < 3.4 HIGH RISK > 5.0 Performed By: #### G ENLO #### [facility] [address] [place] [address] Triglyceride [Mass/Vol] 41 mg/dL Normal 0 - 149 [facility] Work Phone: Comment on above: . AGE DESIRABLE BORD JOCELYN HIGH HIGH VERY HIGH 0 D-90 D 19 - 174 ---- ---- ----91 D- 9 Y 0 - 74 75 - 99 >/= 100 ---- 10-19 Y 0 - 89 90 - 129 >/= 130 ---- 20-24 Y 0 - 114 115 - 149 >/= 150 ---- >24 Y 0 - 149 150 - 199 200- 499 >/= 500. Venipuncture immediately after or during the administration of Metamizole may lead to falsely low results. Testing should be performed immediately prior to Metamizole dosing. Result Comment: . AGE DESIRABLE BORDERLINE HIGH HIGH VERY HIGH 0 D-90 D 19 - 174 ---- ---- ---- 91 D- 9 Y 0 - 74 75 - 99 >/= 100 ---- 10-19 Y 0 - 89 90 - 129 >/= 130 ---- 20-24 Y 0 - 114 115 - 149 >/= 150 ---- >24 Y 0 - 149 150 - 199 200- 499 >/= 500 . Venipuncture immediately after or during the administration of Metamizole may lead to falsely low results. Testing should be performed immediately prior to Metamizole dosing. Performed By: #### G ENLO #### [facility] [address] [place] [address] Cholesterol non HDL [Mass/Vol] 96 mg/dL 0 - 149 [facility] Work Phone: Comment on above: AGE DESIRABLE BORDER LINE HIGH HIGH VERY HIGH 0-19 Y 0 - 119 120 - 144 >/= 145 >/= 160 20-24 Y 0 - 149 150 - 189 >/= 190 ---- >24 Y 30 MG/DL ABOVE LDL CHOLESTEROL GOAL. Lipid Panel 8 mg/dL 0 - 40 [facility] Work Phone: No Panel Informationon 03-20 24 % below low threshold 25 - 45 [facility] Work Phone: >90 >90 [facility] Work Phone: Comment on above: CALCULATIONS OF ANN-MARIE MATED GFR ARE PERFORMED USING THE 2020 CKD-EPI STUDY REFIT EQUATION WITHOUT THE RACE VARIABLE FOR THE IDMS-TRACEABLE CREATININE METHODS.https://jasn.asnjournals.org/content//A .2066256530 T4 - Free Thyroxine, Serumon 03-20-2022 Free T4 [Mass/Vol] 0.92 ng/dL See Below [facility] Work Phone: Comment on above: Reference Range: 0.6 1 - 1.12 Thyroxine Free testing is performed using different testing methodology at [facility] than at other [facility]. Direct result comparisons should only be made within the same method.. Biotin can cause falsely elevated free T4 results. Patients taking a Biotin dose of up to 10 mg/day should refrain from taking Biotin for 24 hours before sample collection. Patient taking a Biotin dose of >10 mg/day should consult with their physician or the laboratory before the blood draw. THYROXINE,FREEon 03-20-2022 THYROXINE,FREE 0.92 ng/dL Normal 0.61 - 1.12 [facility] Comment on above: Result Comment: Thyr oxine Free testing is performed using different testing methodology at [facility] than at other [facility]. Direct result comparisons should only be made within the same method. . Biotin can cause falsely elevated free T4 results. Patients taking a Biotin dose of up to 10 mg/day should refrain from taking Biotin for 24 hours before sample collection. Patient taking a Biotin dose of >10 mg/day should consult with their physician or the laboratory before the blood draw. Performed By: #### T 4FRE #### [address] [address] TSHon 03-20-2022 TSH Qn 0.05 m[IU]/L Low 0.44 - 3.98 [facility] Comment on above: Result Comment: TSH testing is performed using different testing methodology at [facility] than at other [facility]. Direct result comparisons should only be made within the same method. Performed By: #### T SH2 #### [address] [address] Vitamin B12, Serumon 022 Cobalamin (Vitamin B12) [Mass/Vol] 368 pg/mL Normal 211 - 911 [facility] Work Phone: Comment on above: Performed By: #### V TB12 #### [address] [address] Cult, Genitalon 03-05-2022 Bacteria identified Aer cx Nom (Genital specimen) [facility] [address] Work Phone: Tobacco Screening.on 022 Fall risk assessment a) No falls within the last year [facility] Work Phone: Tobacco use status CPHS b) No [facility] Work Phone: CORONAVIRUS 2019, SCREEN ASY MPTOMATICon 01-20-2022 SARS-CoV-2 (COVID-19) RNA JACLYN+probe Ql (Unsp spec) Not detected Normal Not Detected [facility] Comment on above: Result Comment: . This assay is designed to detect the N, ORF1ab and/or S genes of SARS-CoV-2 via nucleic acid amplification. A Negative (NOT DETECTED) result does not preclude 2019-nCoV infection since the adequacy of sample collection and/or low viral burden may result in presence of viral nucleic acids below the clinical sensitivity of this test method. Negative (NOT DETECTED) result should not be used as the sole basis for treatment or other patient management decisions. Rather negative results should be combined with clinical observations, patient history, and epidemiological information to make patient management decisions. Fact sheet for providers: https://www.fda.gov/media/012462/download Fact sheet for patients: https://www.fda.gov/media/211735/download This test has received FDA Emergency Use Authorization (EUA) and has been verified by [facility] ([facility]). This test is only authorized for the duration of time that circumstances exist to justify the authorization of the emergency use of in vitro diagnostic tests for the detection of SARS-CoV-2 virus and/or diagnosis of COVID-19 infection under section 564(b)(1) of the Act, 21 U.S.C. 360bbb-3(b)(1), unless the authorization is terminated or revoked sooner. [facility] is certified under CLIA-88 as qualified to perform high complexity testing. Testing is performed in the [facility] laboratories located at [address] [place] [address]. Performed By: #### G ENLO #### [place] [address] Lab Specimen Source Nasal, Nasopharyngeal Normal [facility] Comment on above: Performed By: #### G ENLO #### [place] [address] Coronavirus 2019 RNA by PCR, Screening Asymptomticon 01-20-2022 Coronavirus 2019 RNA by PCR, Screening Asymptomtic Not detected Normal See Below [facility] [address] [employer] Work Phone: Comment on above: SOURCE: Nasal, Nasop haryngealReference Range: Not Detected.This assay is designed to detect the N, ORF1ab and/or S genes of SARS-CoV-2 via nucleic acid amplification. A Negative (NOT DETECTED) result does not preclude 2019-nCoV infection since the adequacy of sample collection and/or low viral burden may result in presence of viral nucleic acids below the clinical sensitivity of this test method. Negative (NOT DETECTED) result should not be used as the sole basis for treatment or other patient management decisions. Rather negative results should be combined with clinical observations, patient history, and epidemiological information to make patient management decisions.Fact sheet for providers: https://www.fda.gov/media/000721/downloadFact sheet for patients: https://www.fda.gov/media/891314/downloadThis test has received FDA Emergency Use Authorization (EUA) and has been verified by [facility] ([facility]). This test is only authorized for the duration of time that circumstances exist to justify the authorization of the emergency use of in vitro diagnostic tests for the detection of SARS-CoV-2 virus and/or diagnosis of COVID-19 infection under section 564(b)(1) of the Act, 21 U.S.C. 360bbb-3(b)(1), unless the authorization is terminated or revoked sooner. [facility] is certified under CLIA-88 as qualified to perform high complexity testing. Testing is performed in the [facility] laboratories located at [address] [place] [address]. Covid 19 Resultson 2 SARS-CoV-2 (COVID-19) RNA JACLYN+probe Ql (Unsp spec) NEGATIVE COVID-19 Test Coronaviruses are common world-wide and are the cause of many common colds. SARS-COV2 is a new coronavirus that began circulating worldwide in 2019 so we are calling it COVID-19. It has been estimated that four out of five patients with COVID-19 will recover at home without the need for medical attention. Symptoms of COVID-19 may include cough, fever, shortness of breath, loss of taste or smell and other flu-like symptoms including chills, sore muscles, sore throat, and headache. Severe illness is more common in older people and people with other health problems such as high blood pressure, obesity, and immune system problems. If the test is positive, you have COVID-19. You will be contacted by the ordering physicians office and instructed to remain on home isolation, in accordance with CDC guidelines. You may also be contacted by the [facility] to see if any of your close contacts may have been exposed to the virus and need to quarantine. If the test is negative, you likely do not have COVID-19 at this time, but you still may have a different illness that can spread to other people (like Influenza, or the Flu) and could still be at risk for getting COVID-19. We recommend that you stay away from other people to limit the spread of illness until your symptoms are improving and you are fever-free for 24 hours without the use of fever lowering medications such as acetaminophen or ibuprofen. No test is 100% accurate so if you are still concerned you may have COVID-19, talk to your doctor about the need to continue to stay away from others. Medicines Unless your provider told you not to use the following: Acetaminophen (Tylenol and others) is generally safe. Anti-inflammatory medications, such as Ibuprofen (Advil or Motrin) or Naproxen (Aleve) can also be used. Igne-zjc-jmumipw cough and cold medicines can be used according to the instructions on the package. Some timf-dxg-kckperz medicines also contain acetaminophen. Make sure you are not taking more than your recommended dose. For those not hospitalized, there is no specific treatment available for this illness. Antibiotics do not treat Coronaviruses. Follow-Up Follow up with your doctor by scheduling a virtual visit or consider follow-up at one of our urgent care fever clinics. If you are having difficulty breathing, or are very weak and having difficulty standing, this is a medical emergency. Call 911 or have someone take you to the nearest emergency room immediately. If possible, wear a facemask. Additional guidance from the CDC for patients who tested POSITIVE for COVID-19 How to isolate: Isolate yourself in a specific room at home and limit your contact with others. Use a separate bathroom from other members of the household, when possible. Leave home only to get essential medical care. Do not go to work, school or public areas. Avoid using public transportation, ride-sharing, or taxis. Restrict contact with pets and other animals. If you must care for your pet or be around animals while you are sick, wash your hands before and after your interaction and wear a facemask. Make sure that shared spaces in the home have good airflow, such as by an air conditioner or an opened window, weather permitting. Personal Hygiene Procedures: Wear a face mask when in the same room as other people or pets. If a face mask interferes with your breathing, others should wear a mask when sharing space with you. Frequent hand-washing: wash your hands with soap and water for at least 20 seconds. If soap and water are not available, use alcohol-based hand registered nurse practitioner. Avoid touching your eyes, nose, and mouth with unwashed hands. Household Hygiene Procedures: Avoid sharing personal household items such as dishes, glassware, cups, eating utensils, towels or bedding with other people or pets in your home. After use, these items should be washed with soap and hot water. Disinfect all high-touch surfaces every day with antibacterial cleaning solutions such as Lysol wipes, bleach, cleansers, etc. High-touch surfaces include tabletops, doorknobs, bathroom fixtures, toilets, phones, keyboards, tablets and bedside tables. Immediately clean any surfaces that may have blood, poop or body fluids on them, using antibacterial cleaning solutions such as Lysol wipes, bleach, cleansers, etc. If clothing or bedding come into contact with blood, poop or body fluids, they should be washed immediately. Follow the directions on the laundry detergent and clothing labels but hot water is recommended when possible. Stopping home isolation precautions: If possible, consult your doctor before stopping home isolation precautions. According to the CDC, you can discontinue home isolation precautions when you have met both of these criteria: Your fever and respiratory symptoms have been gone for 24 patricia (more content not included)... Normal [facility] Tobacco Screening.on 022 Fall risk assessment a) No falls within the last year [facility] Work Phone: Tobacco use status CPHS b) No [facility] Work Phone: Radiologyon 12-29-2021 XR Chest 2 Views Please click on the link to view the study images Normal [facility] Work Phone: XR Chest 2 Views Normal [facility] Work Phone: Tobacco Screening.on 022 Adult depression screening assessment No [facility] Work Phone: Fall risk assessment a) No falls within the last year [facility] Work Phone: Tobacco use status CPHS b) No [facility] Work Phone: Complete Blood Count + [facility] 11-15-2021 Basophils/100 WBC (Bld) 0.6 % 0.0 - 2.0 [id number] Work Phone: Erythrocyte distribution width (RBC) [Ratio] 18.8 % above high threshold See Below [address] Work Phone: Comment on above: Reference Range: 11. 5 - 14.5 Hematocrit (Bld) [Volume fraction] 31.8 % below low threshold See Below [address] Work Phone: Comment on above: Reference Range: 36. 0 - 46.0 Hemoglobin (Bld) [Mass/Vol] 10.5 g/dL below low threshold See Below [address] Work Phone: Comment on above: Reference Range: 12. 0 - 16.0 Lymphocytes/100 WBC (Bld) 14.5 % See Below [address] Work Phone: Comment on above: Reference Range: 13. 0 - 44.0 MCHC (RBC) [Mass/Vol] 33.0 g/dL See Below [address] Work Phone: Comment on above: Reference Range: 32. 0 - 36.0 MCV (RBC) [Entitic vol] 86 fL 80 - [address] Work Phone: Monocytes/100 WBC (Bld) 7.7 % 2.0 - 10.[address] Work Phone: [phone] Neutrophils/100 WBC (Bld) 72.8 % See Below [address] Work Phone: Comment on above: Reference Range: 40. 0 - 80.0 Platelets (Bld) [#/Vol] 402 10*3/uL 150 - [address] Work Phone: RBC (Bld) [#/Vol] 3.72 {x10E12/L} below low threshold See Below [address] Work Phone: Comment on above: Reference Range: 4.0 0 - 5.20 WBC (Bld) [#/Vol] 8.4 10*3/uL 4.4 - 11.[address] Work Phone: Complete Blood Count + Differential 0.00 {x10E9/L} See Below [address] Work Phone: Comment on above: Reference Range: 0.0 0 - 0.10 Complete Blood Count + Differential 0.40 {x10E9/L} See Below [address] Work Phone: Comment on above: Reference Range: 0.0 0 - 0.70 Complete Blood Count + Differential 0.60 {x10E9/L} See Below [address] Work Phone: Comment on above: Reference Range: 0.1 0 - 1.00 Complete Blood Count + Differential 1.20 {x10E9/L} See Below [address] Work Phone: Comment on above: Reference Range: 1.2 0 - 4.80 Complete Blood Count + Differential 6.20 {x10E9/L} See Below [address] Work Phone: Comment on above: Reference Range: 1.2 0 - 7.70 Percent differential counts (%) should be interpreted in the context of the absolute cell counts (cells/L). Complete Blood Count + Differential 4.4 % 0.0 - 6.[address] Work Phone: Complete Blood Count + Differential 0.1 {/100_WBC} [address] Work Phone: Coronavirus 2019 RNA by PCR, Symptomaticon 11-15-2021 Date and time of symptom onset [id number] Work Phone: Coronavirus 2019 RNA by PCR, Symptomatic Not detected Normal See Below [address] Work Phone: Comment on above: SOURCE: Nasal, Nasop haryngealReference Range: Not Detected.This test has received FDA Emergency Use Authorization (EUA) and has been verified by [facility]. This test is only authorized for the duration of time that circumstances exist to justify the authorization of the emergency use of in vitro diagnostic tests for the detection of SARS-CoV-2 virus and/or diagnosis of COVID-19 infection under section 564(b)(1) of the Act, 21 U.S.C. 360bbb-3(b)(1), unless the authorization is terminated or revoked sooner. [facility] is certified under CLIA-88 as qualified to perform high complexity testing. Testing is performed in the [facility] laboratory located at [address] [place] [address].SARS-CoV-2/Flu/RSV Multiplex Test: Fact sheet for providers: https://www.fda.gov/media/166871/downloadFact sheet for patients: https://www.fda.gov/media/136919/download Laboratory - Chemistry and C hemistry - challengeon 11-15-2021 Anion gap [Moles/Vol] 13 mmol/L 10 - 20 MG- OBGYN[address] Work Phone: [phone] Calcium [Mass/Vol] 8.9 mg/dL 8.6 - 10.3 MG-OBG N[address] Work Phone: [phone] Chloride [Moles/Vol] 106 mmol/L 98 - 107 MG-O BGYN[address] Work Phone: [phone] CO2 [Moles/Vol] 23 mmol/L 21 - 32 MG-OBGYN[address] Work Phone: [phone] Creatinine [Mass/Vol] 0.59 mg/dL See Below MG OBGYN[address] Work Phone: [phone] Comment on above: Reference Range: 0.5 0 - 1.05 Glucose [Mass/Vol] 83 mg/dL 74 - 99 MG-OBG N[address] Work Phone: Potassium [Moles/Vol] 3.8 mmol/L 3.5 - 5.3 MG- OBGYN-[address] Work Phone: Sodium [Moles/Vol] 138 mmol/L 136 - 145 MG-OBG YN-[address] Work Phone: Urea nitrogen [Mass/Vol] 14 mg/dL 6 - 23 MJ-PBZEO-Lcc[address] Work Phone: Laboratory - Coagulationon 0 11-15-2021 INR Coag (PPP) [Relative time] 1.1 {INR} 0.9 - 1.1 [id number] Work Phone: PT Coag (PPP) [Time] 12.4 s 9.8 - 13.4 MG-O BGYN-[address] Work Phone: Comment on above: Note new reference kiya surjit as of 09/12/2021 at 10:00am. No Panel Informationon 11-15 >90 >90 RT-GVBTE-Rby[address] Work Phone: Comment on above: CALCULATIONS OF ANN-MARIE MATED GFR ARE PERFORMED USING THE 2020 CKD-EPI STUDY REFIT EQUATION WITHOUT THE RACE VARIABLE FOR THE IDMS-TRACEABLE CREATININE METHODS.https://jasn.asnjournals.org/content//A SN.4774532396 http://UHMUSEPRDAIO0 1:80 80/musescripts/museweb.d ll?RetrieveTestByDateTim e?AsnypuvRH=[id number]&Da te=11-15-2021&Time=09%3a 40%3a00%3a00&TestType=EC G&Site=14&OutputType=PDF &Ext=PDF SG-UKIPE-Yey[address] Work Phone: Please see physicia n note for formal interpretation confirmed by Scribe [id number] Work Phone: Normal EG-MTOQH-Zew [facility] [address] Work Phone: [phone] XD-MZBFU-Wgj [facility] [address] Work Phone: [phone] FN-SKOTB-Hnc [facility] Work Phone: [phone] XG-TXXFY-Jap [facility] Work Phone: [phone] MJ-BFRMD-Leq [facility] Work Phone: [phone] SL-BXWQB-Lsf [facility] Work Phone: [phone] WU-UVYQM-Mqj [facility] Fl Work Phone: [phone] LF-VPAVY-Ebt [facility] Work Phone: [phone] BK-HDEGK-Kpy [facility] Work Phone: [phone] WY-BGOTL-Jel [facility] Work Phone: [phone] GB-RWMBW-Ome [facility] Fl Work Phone: [phone] OU-ANRNN-Sfd [facility] Work Phone: [phone] PT-OMKGR-Jzq [facility] Fl Work Phone: [phone] GX-KVEOC-Gon [facility] Work Phone: TH CT Angio Chest For PEon 0 11-15-[address] Angio Chest For PE Normal [id number] Work Phone: VASC LAB Venous Duplex Ultra sound for DVTon 11-15-2021 VASC LAB Venous Duplex Ultrasound for DVT VU-JCBEB-Jqc [facility] [address] [address] Work Phone: /Maternal Screenon 10-15 Hemoglobin F Ql (Bld) Canceled [facility] [address] Work Phone: [phone] Hemoglobin F Ql (Bld) Negative [facility] [place] [address] Work Phone: [phone] Laboratory - Hematology and Cell countson 11-08-2021 Erythrocyte distribution width (RBC) [Ratio] 19.8 % above high threshold See Below [facility] [address] Work Phone: [phone] Comment on above: Reference Range: 11. 5 - 14.5 Hematocrit (Bld) [Volume fraction] 29.5 % below low threshold See Below [facility] [address] Work Phone: [phone] Comment on above: Reference Range: 36. 0 - 46.0 Hemoglobin (Bld) [Mass/Vol] 9.9 g/dL below low threshold See Below [facility] [address] Work Phone: [phone] Comment on above: Reference Range: 12. 0 - 16.0 MCHC (RBC) [Mass/Vol] 33.7 g/dL See Below [facility] [place] [address] Work Phone: [phone] Comment on above: Reference Range: 32. 0 - 36.0 MCV (RBC) [Entitic vol] 85 fL 80 - 100 [facility] [address] Work Phone: [phone] Platelets (Bld) [#/Vol] 166 10*3/uL 150 - 450 [facility] [address] [employer] Work Phone: [phone] RBC (Bld) [#/Vol] 3.49 {x10E12/L} below low threshold See Below [facility] [address] Work Phone: [phone] Comment on above: Reference Range: 4.0 0 - 5.20 WBC (Bld) [#/Vol] 16.1 10*3/uL above high threshold 4.4 - 11.3 [facility] [address] Work Phone: [phone] Rhogamon 11-08-2021 Rhogam ORDER RECD [facility] [address] Work Phone: [phone] Rhogam ORDER RECD [facility] [address] Work Phone: [phone] Laboratory - Blood bankon ABO group Nom (Bld) [facility] [address] Work Phone: [phone] Blood group antibody screen Ql Negative [facility] [place] [address] [employer] Work Phone: [phone] Rh immune globulin screen (Bld) [Interp] Negative [facility] [place] [address] Work Phone: [phone] Comment on above: Review your Rh Negat anna female patient's potential need for Rh Immune Globulin (RhIg)administration. Laboratory - Hematology and Cell countson 11-07-2021 Erythrocyte distribution width (RBC) [Ratio] 19.7 % above high threshold See Below [facility] [address] [employer] Work Phone: [phone] Comment on above: Reference Range: 11. 5 - 14.5 Hematocrit (Bld) [Volume fraction] 36.1 % See Below [facility] [address] Work Phone: [phone] Comment on above: Reference Range: 36. 0 - 46.0 Hemoglobin (Bld) [Mass/Vol] 12.0 g/dL See Below [facility] [place] [address] [employer] Work Phone: [phone] Comment on above: Reference Range: 12. 0 - 16.0 MCHC (RBC) [Mass/Vol] 33.3 g/dL See Below [facility] [address] [employer] Work Phone: [phone] Comment on above: Reference Range: 32. 0 - 36.0 MCV (RBC) [Entitic vol] 85 fL 80 - 100 [facility] [place] [address] [employer] Work Phone: [phone] Platelets (Bld) [#/Vol] 203 10*3/uL 150 - 450 [facility] [place] [address] [employer] Work Phone: [phone] RBC (Bld) [#/Vol] 4.26 {x10E12/L} See Below [facility] [address] [employer] Work Phone: [phone] Comment on above: Reference Range: 4.0 0 - 5.20 WBC (Bld) [#/Vol] 7.8 10*3/uL 4.4 - 11.3 [facility] [address] [employer] Work Phone: [phone] Panel Informationon 11-07 ORDER RECD [facility] [place] [address] [employer] Work Phone: [phone] SYPHILIS SCREENING WITH REFL EXon 11-07-2021 T. pallidum IgG+IgM IA Ql (S) Non-Reactive See Below [facility] [address] Work Phone: [phone] Comment on above: SOURCE: Reference Ra nge: NONREACTIVENo significant level of Treponema pallidum antibody detected. Repeat testing in 2 to 4 weeks may be considered if early infection or incubating syphilis infection is suspected. PREMATURE RUPTURE OF MEMBRAN Freddie 10-18-2021 PREMATURE RUPTURE OF MEMBRANE Negative Negative [facility] [address] [employer] Work Phone: No Panel Informationon 09-[address] Work Phone: Ferritin, Serumon 09-21-2021 Ferritin [Mass/Vol] 17 ug/L 8 - [address] Work Phone: Folate, Serumon 09-21-2021 Folate [Mass/Vol] 20.2 ng/mL >5.[address] Work Phone: Comment on above: Low <3.4Borderline 3 .4-5.0Normal >5.0. Biotin interference may cause falsely elevated results. Patients taking a Biotin dose of up to 5 mg/day should refrain from taking Biotin for 24 hours before sample collection. Providers may contact their local laboratory for further information. Laboratory - Blood bankon ABO group Nom (Bld) O [address] Work Phone: Rh immune globulin screen (Bld) [Interp] Negative [address] Work Phone: Comment on above: Review your Rh Negat anna female patient's potential need for Rh Immune Globulin (RhIg)administration. ABO group Nom (Bld) O [address] Work Phone: Blood group antibody investigation (P/RBC) [Interp] ANTI-D ACQUIRED [address] Work Phone: Blood group antibody screen Ql Positive [address] Work Phone: Comment on above: History of POSITIVE Antibody Screen-current specimen required within the 3 days prior to transfusion. Rh immune globulin screen (Bld) [Interp] Negative [address] Work Phone: Comment on above: Review your Rh Negat anna female patient's potential need for Rh Immune Globulin (RhIg)administration. Laboratory - Chemistry and C hemistry - challengeon 09-21-2021 Iron [Mass/Vol] 40 ug/dL 35 - [address] Work Phone: Iron binding capacity [Mass/Vol] >490 Abnormal 240 - [address] Work Phone: Comment on above: Interpret results wi th caution.One or more analytes used in this calculation is outside of the analytical measurement range. Laboratory - Hematology and Cell countson 09-21-2021 Erythrocyte distribution width (RBC) [Ratio] 15.7 % above high threshold See Below [address] Work Phone: Comment on above: Reference Range: 11. 5 - 14.5 Hematocrit (Bld) [Volume fraction] 31.8 % below low threshold See Below [address] Work Phone: Comment on above: Reference Range: 36. 0 - 46.0 Hemoglobin (Bld) [Mass/Vol] 10.2 g/dL below low threshold See Below [address] Work Phone: Comment on above: Reference Range: 12. 0 - 16.0 MCHC (RBC) [Mass/Vol] 32.1 g/dL See Below [address] Work Phone: Comment on above: Reference Range: 32. 0 - 36.0 MCV (RBC) [Entitic vol] 87 fL 80 - 100 [id number] Work Phone: Platelets (Bld) [#/Vol] 254 10*3/uL 150 - 450 ER-[id number] Work Phone: RBC (Bld) [#/Vol] 3.67 {x10E12/L} below low threshold See Below [id number] Work Phone: Comment on above: Reference Range: 4.0 0 - 5.20 WBC (Bld) [#/Vol] 12.3 10*3/uL above high threshold 4.4 - 11.3 [id number] Work Phone: Laboratory - Microbiology an d Antimicrobial susceptibilityon 09-21-2021 Bacteria identified Aer cx Nom (Genital specimen) [address] Work Phone: No Panel Informationon 09-21 NOT CALC. 25 - 45 KA-[id number]-[id number] Work Phone: Comment on above: One or more analytes used in this calculation is outside of the analytical measurement range.Calculation cannot be performed. 0.0 {/100_WBC} 0.0-0.0 MG-OBGYN-[address] Work Phone: ORDER RECD [id number] Work Phone: ORDER RECD [id number] Work Phone: Path Review Immunohematology on 09-21-2021 Path Review Immunohematology X.HE EK-WACBC-Pks[address] Work Phone: Comment on above: By her/his signature above, the Pathologist listed as making the final interpretation certifies that she/he has personally reviewed this case. ANTIBODY DETECTION SCREEN IS POSITIVE.ANTIBODY IDENTIFICATION PANEL WAS PERFORMED.THE AUTOCONTROL IS NEGATIVE.THE PATIENT'S RBC PHENOTYPE IS RH (D) ANTIGEN NEGATIVE. THE PATIENT HAS A HISTORY OF RECEIPT OFRHIG. THESE FINDINGS ARE CONSISTENT WITH ANTI-DACQUIRED DUE TO RECEIPT OF RHIG.ALL OTHER COMMON CLINICALLY SIGNIFICANTALLOANTIBODIES HAVE BEEN RULED OUT.FULL CROSSMATCHED D-ANTIGEN NEGATIVE DONOR RBC UNITSSHOULD BE SELECTED FOR TRANSFUSION FOR THIS PATIENT. SYPHILIS SCREENING WITH REFL EXon 09-21-2021 T. pallidum IgG+IgM IA Ql (S) Non-Reactive See Below [address] Work Phone: Comment on above: SOURCE: Reference Ra nge: NONREACTIVENo significant level of Treponema pallidum antibody detected. Repeat testing in 2 to 4 weeks may be considered if early infection or incubating syphilis infection is suspected. Vitamin B12, Serumon 021 Cobalamin (Vitamin B12) [Mass/Vol] 291 pg/mL 211 - [address] Work Phone: Coronavirus 2019 RNA by PCR, Screening Asymptomticon 09-20-2021 Coronavirus 2019 RNA by PCR, Screening Asymptomtic Not detected Normal See Below [facility] [address] Work Phone: Comment on above: SOURCE: Nasal, Nasop haryngealReference Range: Not Detected.This test has received FDA Emergency Use Authorization (EUA) and has been verified by [facility]. This test is only authorized for the duration of time that circumstances exist to justify the authorization of the emergency use of in vitro diagnostic tests for the detection of SARS-CoV-2 virus and/or diagnosis of COVID-19 infection under section 564(b)(1) of the Act, 21 U.S.C. 360bbb-3(b)(1), unless the authorization is terminated or revoked sooner. [facility] is certified under CLIA-88 as qualified to perform high complexity testing. Testing is performed in the [facility] laboratory located at [address] [place] [address].SARS-CoV-2/Flu/RSV Multiplex Test: Fact sheet for providers: https://www.fda.gov/media/307867/downloadFact sheet for patients: https://www.fda.gov/media/949441/download GC + Chlamydia By Amplified Detectionon 09-20-2021 C. trachomatis rRNA JACLYN+probe Ql (Unsp spec) Not detected See Below [facility] [address] [employer] Work Phone: [phone] Comment on above: Reference Range: NOT DETECTED N. gonorrhoeae rRNA JACLYN+probe Ql (Unsp spec) Not detected See Below [facility] [place] [address] [employer] Work Phone: [phone] Comment on above: SOURCE: UrineReferen ce Range: NOT DETECTED Laboratory - Blood bankon ABO group Nom (Bld) [facility] [address] [employer] Work Phone: [phone] Blood group antibody investigation (P/RBC) [Interp] ANTI-D [facility] [address] [employer] Work Phone: [phone] Comment on above: ANTI-D DUE TO RHOGAM Blood group antibody screen Ql Positive [facility] [address] [employer] Work Phone: [phone] Rh immune globulin screen (Bld) [Interp] Negative [facility] [place] [address] Work Phone: [phone] Comment on above: Review your Rh Negat anna female patient's potential need for Rh Immune Globulin (RhIg)administration. Laboratory - Hematology and Cell countson 09-20-2021 Erythrocyte distribution width (RBC) [Ratio] 16.8 % above high threshold See Below [facility] [address] [employer] Work Phone: [phone] Comment on above: Reference Range: 11. 5 - 14.5 Hematocrit (Bld) [Volume fraction] 30.6 % below low threshold See Below [facility] [place] [address] Work Phone: [phone] Comment on above: Reference Range: 36. 0 - 46.0 Hemoglobin (Bld) [Mass/Vol] 9.9 g/dL below low threshold See Below [facility] [address] [employer] Work Phone: [phone] Comment on above: Reference Range: 12. 0 - 16.0 MCHC (RBC) [Mass/Vol] 32.4 g/dL See Below [facility] [address] Work Phone: [phone] Comment on above: Reference Range: 32. 0 - 36.0 MCV (RBC) [Entitic vol] 83 fL 80 - 100 [facility] [place] [address] Work Phone: [phone] Platelets (Bld) [#/Vol] 266 10*3/uL 150 - 450 [facility] [place] [address] [employer] Work Phone: [phone] RBC (Bld) [#/Vol] 3.71 {x10E12/L} below low threshold See Below [facility] [address] Work Phone: [phone] Comment on above: Reference Range: 4.0 0 - 5.20 WBC (Bld) [#/Vol] 12.4 10*3/uL above high threshold 4.4 - 11.3 [facility] [place] [address] [employer] Work Phone: [phone] Urinalysison 09-20-2021 Color (U) Straw See Below [facility] [address] [employer] Work Phone: [phone] Comment on above: Reference Range: STR AW,YELLOW Glucose Ql (U) Negative NEGATIVE [facility] [place] [address] [employer] Work Phone: [phone] Ketones Ql (U) Negative NEGATIVE [facility] [place] [address] Work Phone: [phone] Leukocyte esterase Test strip Ql (U) Negative NEGATIVE [facility] [address] Work Phone: [phone] pH (U) 7.0 [pH] 5.0 - 8.0 [facility] [address] Work Phone: [phone] Protein (U) [Mass/Vol] Negative NEGATIVE [facility] [address] [employer] Work Phone: [phone] RBC (U) [#/Vol] MODERATE(2+) Abnormal NEGATIVE [facility] [address] [employer] Work Phone: [phone] Specific gravity (U) [Rel density] 1.009 1 See Below [facility] [address] [employer] Work Phone: [phone] Comment on above: Reference Range: 1.0 05 - 1.035 Urinalysis Negative NEGATIVE [facility] [address] Work Phone: [phone] Urinalysis <2.0 0.0 - 1.9 [facility] [address] [employer] Work Phone: [phone] Urinalysis CLEAR CLEAR [facility] [address] Work Phone: [phone] Urinalysis, Microscopicon Urinalysis, Microscopic 1+ [facility] [address] [employer] Work Phone: [phone] Urinalysis, Microscopic 1 {/HPF} 0-5 [facility] [address] [employer] Work Phone: [phone] Urinalysis, Microscopic None 0-5 [facility] [address] Work Phone: [phone] Panel Informationon 08-24 SEE BELOW [facility] [place] [address] [employer] Work Phone: [phone] Comment on above: Diagnostics with glu cose loading dose of 100 g. Reference values from [place] [employer]. Diabetes Care 2015;38(Suppl.1):S8-S16. 90 mg/dL <140 [facility] [address] [employer] Work Phone: [phone] mg/dL <155 [facility] [address] Work Phone: [phone] mg/dL <180 [facility] [address] Work Phone: [phone] 77 mg/dL <95 [facility] [address] Work Phone: [phone] Rhogamon 08-22-2021 Rhogam Canceled [facility] [place] [address] [employer] Work Phone: [phone] Glucose, 1 Hour Screen, Preg nancyon 08-21-2021 Glucose 1 Hr post 50 g glucose PO [Mass/Vol] 135 mg/dL Abnormal <135 [facility] [place] [address] Work Phone: [phone] Comment on above: Diagnostic value wit h glucose loading dose of 50 g. Reference values from [employer]. Diabetes Care 2015;38(Suppl.1):S8-S16 Laboratory - Blood bankon ABO group Nom (Bld) [facility] [place] [address] [employer] Work Phone: [phone] Blood group antibody screen Ql Negative [facility] [address] Work Phone: [phone] Rh immune globulin screen (Bld) [Interp] Negative [facility] [place] [address] Work Phone: [phone] Comment on above: Review your Rh Negat anna female patient's potential need for Rh Immune Globulin (RhIg)administration. ABO group Nom (Bld) Canceled [facility] [address] [employer] Work Phone: [phone] Blood group antibody screen Ql Canceled [facility] [address] Work Phone: [phone] Rh immune globulin screen (Bld) [Interp] Canceled [facility] [place] [address] Work Phone: [phone] Laboratory - Hematology and Cell countson 08-21-2021 Erythrocyte distribution width (RBC) [Ratio] 13.7 % See Below [facility] [address] [employer] Work Phone: [phone] Comment on above: Reference Range: 11. 5 - 14.5 Hematocrit (Bld) [Volume fraction] 28.8 % below low threshold See Below [facility] [address] [employer] Work Phone: [phone] Comment on above: Reference Range: 36. 0 - 46.0 Hemoglobin (Bld) [Mass/Vol] 9.5 g/dL below low threshold See Below [facility] [address] [employer] Work Phone: [phone] Comment on above: Reference Range: 12. 0 - 16.0 MCHC (RBC) [Mass/Vol] 33.1 g/dL See Below [facility] [address] [employer] Work Phone: [phone] Comment on above: Reference Range: 32. 0 - 36.0 MCV (RBC) [Entitic vol] 83 fL 80 - 100 [facility] [place] [address] [employer] Work Phone: [phone] Platelets (Bld) [#/Vol] 286 10*3/uL 150 - 450 [facility] [address] [employer] Work Phone: [phone] RBC (Bld) [#/Vol] 3.46 {x10E12/L} below low threshold See Below [facility] [address] [employer] Work Phone: [phone] Comment on above: Reference Range: 4.0 0 - 5.20 WBC (Bld) [#/Vol] 8.9 10*3/uL 4.4 - 11.3 [facility] [place] [address] [employer] Work Phone: [phone] Rhogamon 08-21-2021 Rhogam ORDER RECD [facility] [address] [employer] Work Phone: [phone] Rhogam ORDER RECD [facility] [address] [employer] Work Phone: [phone] Laboratory - Chemistry and C hemistry - challengeon 07-20-2021 Albumin BCP dye [Mass/Vol] 3.4 g/dL 3.4 - 5.0 [facility] [address] [employer] Work Phone: [phone] ALP [Catalytic activity/Vol] 69 U/L 33 - 110 [facility] [address] [employer] Work Phone: [phone] ALT With P-5'-P [Catalytic activity/Vol] 5 U/L below low threshold 7 - 45 [facility] [address] [employer] Work Phone: [phone] Comment on above: Patients treated wit h Sulfasalazine may generate falsely decreased results for ALT. Anion gap [Moles/Vol] 12 mmol/L 10 - 20 [facility] [place] [address] [employer] Work Phone: [phone] AST With P-5'-P [Catalytic activity/Vol] 11 U/L 9 - 39 [facility] [address] [employer] Work Phone: [phone] Bilirubin [Mass/Vol] 0.3 mg/dL 0.0 - 1.2 [facility] [address] Work Phone: [phone] Calcium [Mass/Vol] 8.0 mg/dL below low threshold 8.6 - 10.3 [facility] [address] Work Phone: [phone] Chloride [Moles/Vol] 106 mmol/L 98 - 107 [facility] [place] [address] Work Phone: [phone] CO2 [Moles/Vol] 21 mmol/L 21 - 32 [facility] [address] Work Phone: [phone] Creatinine [Mass/Vol] 0.51 mg/dL See Below [facility] [place] [address] Work Phone: [phone] Comment on above: Reference Range: 0.5 0 - 1.05 Glucose [Mass/Vol] 96 mg/dL 74 - 99 [facility] [address] Work Phone: [phone] Potassium [Moles/Vol] 3.7 mmol/L 3.5 - 5.3 [facility] [place] [address] Work Phone: [phone] Protein [Mass/Vol] 6.5 g/dL 6.4 - 8.2 [facility] [address] Work Phone: [phone] Sodium [Moles/Vol] 135 mmol/L below low threshold 136 - 145 [facility] [address] Work Phone: [phone] Urea nitrogen [Mass/Vol] 11 mg/dL 6 - 23 [facility] [place] [address] Work Phone: [phone] No Panel Informationon 07-20 >60 >60 [facility] [place] [address] Work Phone: Comment on above: CALCULATIONS OF ANN-MARIE MATED GFR ARE PERFORMED USING THE MDRD STUDY EQUATION FOR THE IDMS-TRACEABLE CREATININE METHODS. CLIN CHEM 2007;53:766-72 V[facility] LAB Venous Duplex Ultra sound for DVTon 07-20-2021 [facility] Venous Duplex Ultrasound for DVT [facility] [place] [address] Work Phone: No Panel Informationon 06-26 Normal [facility] [address] [employer] Work Phone: Please click on the link to view the study images Normal [facility] [address] [employer] Work Phone: Coronavirus 2019 RNA by PCR, Symptomaticon 06-15-2021 Date and time of symptom onset [id number] [facility] [place] [address] [employer] Work Phone: [phone] Coronavirus 2019 RNA by PCR, Symptomatic Detected Abnormal See Below [facility] [address] Work Phone: Comment on above: SOURCE: Nasal, Nasop haryngealReference Range: Not Detected.This assay is designed to detect the N, ORF1ab and/or S genes of SARS-CoV-2 via nucleic acid amplification. A Negative (NOT DETECTED) result does not preclude 2019-nCoV infection since the adequacy of sample collection and/or low viral burden may result in presence of viral nucleic acids below the clinical sensitivity of this test method. Negative (NOT DETECTED) result should not be used as the sole basis for treatment or other patient management decisions. Rather negative results should be combined with clinical observations, patient history, and epidemiological information to make patient management decisions.Fact sheet for providers: https://www.fda.gov/media/864121/downloadFact sheet for patients: https://www.fda.gov/media/096325/downloadThis test has received FDA Emergency Use Authorization (EUA) and has been verified by [facility] ([facility]). This test is only authorized for the duration of time that circumstances exist to justify the authorization of the emergency use of in vitro diagnostic tests for the detection of SARS-CoV-2 virus and/or diagnosis of COVID-19 infection under section 564(b)(1) of the Act, 21 U.S.C. 360bbb-3(b)(1), unless the authorization is terminated or revoked sooner. [facility] is certified under CLIA-88 as qualified to perform high complexity testing. Testing is performed in the [facility] laboratories located at [address] [place] [address]. Cult, Urineon 05-01-2021 Bacteria identified Cx Nom (U) [facility] [address] Work Phone: GC + Chlamydia By Amplified Detectionon 05-01-2021 C. trachomatis rRNA JACLYN+probe Ql (Unsp spec) Negative Negative [facility] [address] Work Phone: Comment on above: The APTIMA Combo 2 a ssay is FDA-approved for Chlamydia trachomatis and Neisseria gonorrhoeae testing on female endocervical and vaginal swabs, ThinPrep liquid pap samples, male urine samples and urethral swabs. Performance characteristics for Chlamydia trachomatis and Neisseria gonorrhoeae testing on specific qxx-UQO-axhfobvz sample types (female urine samples) have been validated by [facility]. This laboratory is certified by CLIA to perform high complexity testing. Samples from all other sites are not validated for this method. N. gonorrhoeae rRNA JACLYN+probe Ql (Unsp spec) Negative Negative [facility] Work Phone: Comment on above: SOURCE: Urine The AP AUREA Combo 2 assay is FDA-approved for Chlamydia trachomatis and Neisseria gonorrhoeae testing on female endocervical and vaginal swabs, ThinPrep liquid pap samples, male urine samples and urethral swabs. Performance characteristics for Chlamydia trachomatis and Neisseria gonorrhoeae testing on specific pym-IUR-sluploeb sample types (female urine samples) have been validated by [facility]. This laboratory is certified by CLIA to perform high complexity testing. Samples from all other sites are not validated for this method. HIV 1/2 ANTIGEN/ANTIBODY SCR EEN WITH REFLEX TO CONFIRMATIONon 05-01-2021 HIV 1+2 Ab Qn (S) Non-Reactive See Below [facility] [address] Work Phone: Comment on above: SOURCE: Reference Ra nge: NONREACTIVE HIV Ag/Ab screen is performed using the Siemens Savveo HIV Ag/Ab Combo assay which detects the presence of HIV p24 antigen as well as antibodies to HIV-1 (Group M and O) and HIV-2..No laboratory evidence of HIV infection. If acute HIV infection is suspected, consider testing for HIV RNA by PCR (viral load). Hepatitis B Surface Antigeno n 05-01-2021 Hepatitis B Surface Antigen Non-Reactive [facility] Below [facility] [place] [address] [employer] Work Phone: [phone] Comment on above: SOURCE: Reference Ra wolf: NONREACTIVE Biotin interference may cause falsely decreased results. Patients taking a Biotin dose of up to 5 mg/day should refrain from taking Biotin for 24 hours before sample collection. Providers may contact their local laboratory for further information. SOURCE: Reference Ra olsone: NONREACTIVE Results from patients taking biotin supplements or receiving high-dose biotin therapy should be interpreted with caution due to possible interference with this test. Providers may contact their local laboratory for further information. Laboratory - Blood bankon ABO group Nom (Bld) O [facility] [address] [employer] Work Phone: [phone] Blood group antibody screen Ql Negative [place] [address] [place] Work Phone: [phone] Rh immune globulin screen (Bld) [Interp] Negative [place] [address] [employer] Work Phone: [phone] Comment on above: Review your Rh Negat anna female patient's potential need for Rh Immune Globulin (RhIg)administration. Laboratory - Cytologyon 04-13 Cytology report Cyto stain.thin prep Doc (Cvx/Vag) [address] Work Phone: [phone] Laboratory - Hematology and Cell countson 05-01-2021 Erythrocyte distribution width (RBC) [Ratio] 13.6 % See Below [facility] [place] [address] [employer] Work Phone: [phone] Comment on above: Reference Range: 11. 5 - 14.5 Hematocrit (Bld) [Volume fraction] 33.6 % below low threshold See Below [place] [address] [employer] Work Phone: [phone] Comment on above: Reference Range: 36. 0 - 46.0 Hemoglobin (Bld) [Mass/Vol] 11.5 g/dL below low threshold [facility] Below [facility] [place] [address] [employer] Work Phone: [phone] Comment on above: Reference Range: 12. 0 - 16.0 MCHC (RBC) [Mass/Vol] 34.3 g/dL See Below [facility] [address] [employer] Work Phone: [phone] Comment on above: Reference Range: 32. 0 - 36.0 MCV (RBC) [Entitic vol] 87 fL 80 - 100 [facility] [address] [employer] Work Phone: [phone] Platelets (Bld) [#/Vol] 277 10*3/uL 150 - 450 [facility] [employer] Work Phone: [phone] RBC (Bld) [#/Vol] 3.86 {x10E12/L} below low threshold See Below [facility] [employer] Work Phone: [phone] Comment on above: Reference Range: 4.0 0 - 5.20 WBC (Bld) [#/Vol] 8.3 10*3/uL 4.4 - 11.3 [facility] [employer] Work Phone: [phone] No Panel Informationon 05-01 NONE [facility] [employer] Work Phone: [phone] Rubella IgG Antibodyon 05-01 Rubella virus IgG IA Ql Positive [facility] [place] [address] [employer] Work Phone: [phone] Comment on above: SOURCE: INTERPRETATI VE COMMENT NEGATIVE: No IgG antibodies specific to Rubella detected. It is likely that the patient has not had a previous exposure to Rubella through infection or vaccination. Alternatively, the patient may have been exposed to Rubella but a failure to respond may indicate immunodeficiency. EQUIVOCAL:Equivocal results; obtain additional sample for retesting. POSITIVE: IgG antibody to Rubella detected. This may indicate that the patient was exposed to Rubella through infection or vaccination.The interpretation of serological tests should take into accountthe immunological status of the patient. Test results forpatients, including immunocompromised patients, neonates, andpediatric patients, reflect their capacity to respondimmunologically to the virus as well as their exposure to thepathogen. Patients treated with IVIG may demonstrate alteredresults in serological assays. SYPHILIS SCREENING WITH REFL EXon 05-01-2021 T. pallidum IgG+IgM IA Ql (S) Non-Reactive See Below [facility] [employer] Work Phone: Comment on above: SOURCE: Reference Ra nge: NONREACTIVENo significant level of Treponema pallidum antibody detected. Repeat testing in 2 to 4 weeks may be considered if early infection or incubating syphilis infection is suspected. Tobacco Screening.on 021 Fall risk assessment a) No falls within the last year [facility] Work Phone: Tobacco use status CPHS b) No [facility] Work Phone: [place]CG, [place] [address] m[IU]/mL Abnormal [facility] [place] [address] [place] Work Phone: Comment on above: Low-level positive H CG results can be seen in early , in yaneth- or post-menopausal females due to normal pituitary HCG production, or with analytic interference. Repeat testing in 48-72 hours can aid in assessing for as results should double in this time period. FSH measurement is recommended in yaneth- or post-menopausal females as concurrent elevation of FSH can support pituitary production as the source of the HCG elevation.. Total HCG measurement is performed using the [employer] Access Immunoassay which detects intact HCG and free beta HCG subunit. This test is not indicated for use as a tumor marker. HCG testing is performed using a different test methodology at [facility] than other [facility]. Direct result comparison should only be made within the same method. REF VALUESNON FEMALE <5MALES <5 HCG, [place] [address] m[IU]/mL Abnormal [facility] [address] [address] [place] Work Phone: Comment on above: Low-level positive H CG results can be seen in early , in yaneth- or post-menopausal females due to normal pituitary HCG production, or with analytic interference. Repeat testing in 48-72 hours can aid in assessing for as results should double in this time period. FSH measurement is recommended in yaneth- or post-menopausal females as concurrent elevation of FSH can support pituitary production as the source of the HCG elevation.. Total HCG measurement is performed using the [employer] Access Immunoassay which detects intact HCG and free beta HCG subunit. This test is not indicated for use as a tumor marker. HCG testing is performed using a different test methodology at [facility] than other [facility]. Direct result comparison should only be made within the same method. REF VALUESNON FEMALE <5MALES <5 IO HCG, Urine Test on 03-20-2021 HCG ( test) Ql (U) Positive [facility] [place] [address] [employer] Work Phone: [phone] LMPon 03-20-2021 Last menstrual period start date 13Jan2021 [facility] [place] [address] [employer] Work Phone: [phone] Anti-Thyroglobulin ABon 02-0 Thyroglobulin Ab Qn 22.7 {IU/mL} above high threshold 0.0-4.0 [facility] Work Phone: Comment on above: INTERPRETIVE INFORMA TION: Thyroglobulin Antibody A value of 4.0 IU/mL or less indicates a negative result for thyroglobulin antibodies.The Thyroglobulin Antibody assay is being performed using the [employer] Access DxI method.Performed By: [employer] [place] [id number] Director: Michelle Jo MD Ordering Provider: Pam SAWYER [id number] MISCELLANEOUS TESTon 021 MISCELLANEOUS TEST thyroid cascade profile [facility] Work Phone: Comment on above: Ordering Provider: Pam SAWYER [address] MISCELLANEOUS TEST SEE BELOW [facility] Work Phone: Comment on above: Thyroid [place] [place] [employer] [facility] TEST NAME RESULT UNITS REFERENCE INTERVALTSH 1.660 uIU/mL 0.450-4.500 No apparent thyroid disorder. Additional testing not indicated. Inrare instances, Secondary Hypothyroidism as well as SubclinicalHypothyroidism have been reported in some patients with normal TSHvalues. TEST PERFORMED AT: [facility] [id number] Ordering Provider: Pam SAWYER [address] Thyroidon 11-16-2020 TSH Qn 1.61 {mIU/L} See Below [facility] Work Phone: Comment on above: Reference Range: 0.4 4 - 3.98 TSH testing is performed using different testing methodology at [facility] than at other [facility]. Direct result comparisons should only be made within the same method. Thyroxine, Serum (T4)on T4 [Mass/Vol] 11.0 ug/dL 4.5 - 11.1 [facility] Work Phone: Comment on above: Ordering Provider: Pam LAURIE SAWYER [address] Triiodothyronine, Level (T3) on 11-16-2020 T3 [Mass/Vol] 156 ng/dL 80 - 210 [facility] Work Phone: Comment on above: Ordering Provider: Pam SAWYER [address] CBCon 10-31-2020 ABSOLUTE BAS 0.1 10*3/uL Normal 0.0-0.2 [facility] Comment on above: Performed By: #### D DIMER, CHEM7F, ACBC #### Testing performed at [address] [address] ABSOLUTE EOS 0.10 10*3/uL Normal 0.0-0.7 [facility] Comment on above: Performed By: #### D DIMER, CHEM7F, ACBC #### Testing performed at [address] [address] ABSOLUTE NEUTROPHIL COUNT 4.0 10*3/uL Normal 1.4-6.5 [facility] Comment on above: Performed By: #### D DIMER, CHEM7F, ACBC #### Testing performed at [address] [address] Basophils/100 WBC (Bld) 1.1 % Normal 0.0-2.0 [facility] Comment on above: Performed By: #### D DIMER, CHEM7F, ACBC #### Testing performed at [address] [address] DTYPE AUTO DIFF Normal [facility] Comment on above: Performed By: #### D DIMER, CHEM7F, ACBC #### Testing performed at [address] [address] Eosinophils/100 WBC (Bld) 1.3 % Normal 0.0-11.0 [facility] Comment on above: Performed By: #### D DIMER, CHEM7F, ACBC #### Testing performed at [address] [address] Lymphocytes (Bld) [#/Vol] 1.10 10*3/uL Low 1.2-3.4 [facility] Comment on above: Performed By: #### D DIMER, CHEM7F, ACBC #### Testing performed at [address] [address] Lymphocytes/100 WBC (Bld) 19.2 % Low 20.0-55.0 [facility] Comment on above: Performed By: #### D DIMER, CHEM7F, ACBC #### Testing performed at [address] [address] Monocytes (Bld) [#/Vol] 0.4 10*3/uL Normal 0.0-0.7 [facility] Comment on above: Performed By: #### D DIMER, CHEM7F, ACBC #### Testing performed at [address] [address] Monocytes/100 WBC (Bld) 7.6 % Normal 0.0-10.0 [facility] Comment on above: Performed By: #### D DIMER, CHEM7F, ACBC #### Testing performed at [address] [address] Neutrophils/100 WBC (Bld) 70.8 % Normal 37.0-75.0 [facility] Comment on above: Performed By: #### D DIMER, CHEM7F, ACBC #### Testing performed at [address] [address] Erythrocyte distribution width (RBC) [Ratio] 13.5 % Normal 11.5-14.5 [facility] Comment on above: Performed By: #### D DIMER, CHEM7F, ACBC #### Testing performed at [address] [address] Hematocrit (Bld) [Volume fraction] 37.4 % Normal 36.0-48.0 [facility] Comment on above: Performed By: #### D DIMER, CHEM7F, ACBC #### Testing performed at [address] [place] [address] Hemoglobin (Bld) [Mass/Vol] 12.5 g/dL Normal 12.0-16.0 [facility] Comment on above: Performed By: #### D DIMER, CHEM7F, ACBC #### Testing performed at [address] [address] MCH (RBC) [Entitic mass] 28.7 pg Normal 26.0-35.0 [facility] Comment on above: Performed By: #### D DIMER, CHEM7F, ACBC #### Testing performed at [address] [address] MCHC (RBC) [Mass/Vol] 33.4 g/dL Normal 27.0-37.0 [facility] Comment on above: Performed By: #### D DIMER, CHEM7F, ACBC #### Testing performed at [address] [address] MCV (RBC) [Entitic vol] 85.9 fL Normal 80.0-100.0 [facility] Comment on above: Performed By: #### D DIMER, CHEM7F, ACBC #### Testing performed at [address] [address] Platelet mean volume (Bld) [Entitic vol] 7.4 fL Normal 7.4-11.0 [facility] Comment on above: Performed By: #### D DIMER, CHEM7F, ACBC #### Testing performed at [address] [address] Platelets (Bld) [#/Vol] 305 10*3/uL Normal 130.0-400.0 [facility] Comment on above: Performed By: #### D DIMER, CHEM7F, ACBC #### Testing performed at [address] [address] RBC (Bld) [#/Vol] 4.35 10*6/uL Normal 4.0-5.4 [facility] Comment on above: Performed By: #### D DIMER, CHEM7F, ACBC #### Testing performed at [address] [address] WBC (Bld) [#/Vol] 5.6 10*3/uL Normal 3.6-11.0 [facility] Comment on above: Performed By: #### D DIMER, CHEM7F, ACBC #### Testing performed at [facility] [address] [place] [address] CBC, EDIF, PLATELETon 2020 ABSOLUTE BASOPHIL COUNT 0.1 10*3/uL 0 - 0.2 10*3/uL [facility] Basophils/100 WBC (Bld) 1.1 % 0 - 2 % [facility] Differential cell count method Nom (Bld) AUTO DIFF % [facility] Eosinophils (Bld) [#/Vol] 0.10 10*3/uL 0 - 0.7 10*3/uL [facility] Eosinophils/100 WBC (Bld) 1.3 % 0 - 11 % [facility] Erythrocyte distribution width (RBC) [Ratio] 13.5 % 11.5 - 14.5 % [facility] Hematocrit (Bld) [Volume fraction] 37.4 % 36 - 48 % [facility] Hemoglobin (Bld) [Mass/Vol] 12.5 g/dL [facility] Interpretation and review of laboratory results Abnormal [facility] Lymphocytes (Bld) [#/Vol] 1.10 10*3/uL Low 1.2 - 3.4 10*3/uL [facility] Lymphocytes/100 WBC (Bld) 19.2 % Low 20 - 55 % [facility] MCH (RBC) [Entitic mass] 28.7 pg 26 - 35 PG [facility] MCHC (RBC) [Mass/Vol] 33.4 g/dL [facility] MCV (RBC) [Entitic vol] 85.9 fL [facility] Monocytes (Bld) [#/Vol] 0.4 10*3/uL 0 - 0.7 10*3/uL [facility] Monocytes/100 WBC (Bld) 7.6 % 0 - 10 % [facility] Neutrophils (Bld) [#/Vol] 4.0 10*3/uL 1.4 - 6.5 10*3/uL [facility] Neutrophils/100 WBC (Bld) 70.8 % 37 - 75 % [facility] Platelet mean volume (Bld) [Entitic vol] 7.4 fL [facility] Platelets (Bld) [#/Vol] 305 10*3/uL 130 - 400 10*3/uL [facility] RBC (Bld) [#/Vol] 4.35 10*6/uL 4 - 5.4 10*6/uL [facility] WBC (Bld) [#/Vol] 5.6 10*3/uL 3.6 - 11 10*3/uL [facility] CHEM 7 FASTINGon 10-31-2020 Creatinine [Mass/Vol] 0.68 mg/dL Normal 0.52-1.04 [facility] Comment on above: Performed By: #### D DIMER, CHEM7F, ACBC #### Testing performed at [address] [address] EST. GFR, >60 Normal [facility] Comment on above: Performed By: #### D DIMER, CHEM7F, ACBC #### Testing performed at [address] [address] EST. GFR,Non >60 Normal [facility] Comment on above: Performed By: #### D DIMER, CHEM7F, ACBC #### Testing performed at [address] [address] GFR/1.73 sq M predicted among non-blacks MDRD (S/P/Bld) [Vol rate/Area] Average GFR for 20-29 years old = 116. Normal [facility] Comment on above: Result Comment: Strategic Partnership Manager renetta Kidney disease, GFR = <60. Kidney failure, GFR = <15. The GFR estimate is not adjusted for extreme body surface area or acute process, nor has it been validated for women or ethnic groups other than and . Performed By: #### D DIMER, CHEM7F, ACBC #### Testing performed at [address] [address] Urea nitrogen [Mass/Vol] 12 mg/dL Normal 7-20 [facility] Comment on above: Performed By: #### D DIMER, CHEM7F, ACBC #### Testing performed at [address] [address] Chloride [Moles/Vol] 103 mmol/L Normal 98-107 [facility] Comment on above: Performed By: #### D DIMER, CHEM7F, ACBC #### Testing performed at [address] [address] CO2 [Moles/Vol] 29 mmol/L Normal 22-30 [facility] Comment on above: Performed By: #### D DIMER, CHEM7F, ACBC #### Testing performed at [address] [address] Glucose [Mass/Vol] 127 mg/dL High 70-100 [facility] Comment on above: Result Comment: NORMAL <100 mg/dL PREDIABETES 101-126 mg/dL DIABETES 126 mg/dL or higher Performed By: #### D DIMER, CHEM7F, ACBC #### Testing performed at [address] [address] Potassium [Moles/Vol] 3.5 mmol/L Normal 3.5-5.1 [facility] Comment on above: Performed By: #### D DIMER, CHEM7F, ACBC #### Testing performed at [address] [address] Sodium [Moles/Vol] 138 mmol/L Normal 136-145 [facility] Comment on above: Performed By: #### D DIMER, CHEM7F, ACBC #### Testing performed at [address] [address] CHEM 7 (LYTES,BUN,CREA,GLUC) on 10-31-2020 Chloride [Moles/Vol] 103 mmol/L [facility] CO2 [Moles/Vol] 29 mmol/L [facility] Creatinine [Mass/Vol] 0.68 mg/dL [facility] GFR/1.73 sq M predicted among blacks MDRD (S/P/Bld) [Vol rate/Area] mL/min/{1.73_m2} ml/min/1.73s q.m [facility] GFR/1.73 sq M predicted among non-blacks MDRD (S/P/Bld) [Vol rate/Area] Average GFR for 20-29 years old = 116. [facility] Comment on above: Chronic Kidney disea se, GFR = <60. Kidney failure, GFR = <15. The GFR estimate is not adjusted for extreme body surface area or acute process, nor has it been validated for women or ethnic groups other than and . GFR/1.73 sq M predicted among non-blacks MDRD (S/P/Bld) [Vol rate/Area] mL/min/{1.73_m2} ml/min/1.73s q.m [facility] Glucose post fast [Mass/Vol] 127 mg/dL High [facility] Comment on above: NORMAL <100 mg/dL PREDIABETES 101-126 mg/dL DIABETES 126 mg/dL or higher Interpretation and review of laboratory results Abnormal [facility] Potassium [Moles/Vol] 3.5 mmol/L [facility] Sodium [Moles/Vol] 138 mmol/L [facility] Urea nitrogen [Mass/Vol] 12 mg/dL [facility] CT PE STUDYon 10-31-2020 CT PE STUDY EXAMINATION: CT PE S TUDY HISTORY: Chest pain, syncope. COMPARISON: None. TECHNIQUE: CT angiography of the pulmonary arteries following the administration of 75 mL Omnipaque 350 intravenous contrast. Coronal and sagittal MIP (maximum intensity projection) images were performed. Dose reduction techniques were achieved by using automated exposure control and/or adjustment of mA and/or kV according to patient size and/or use of iterative reconstruction technique. AI TECHNOLOGY: This study was processed using [employer]. No prior found. Current Lung Volume: 1.30 liters (right), 1.20 liters (left) No findings. FINDINGS: There are no filling defects within the pulmonary arteries to suggest pulmonary embolism. The aortic root is limited by motion, although there is no convincing aortic aneurysm. No cardiomegaly. No pericardial effusion. Normal thyroid. No enlarged lymph nodes. Patent airway. No pleural effusion. No airspace opacity. Limited visualization of the upper abdomen is unremarkable. No suspicious osseous lesion. IMPRESSION: No evident pulmonary embolism or other acute process in the chest. Normal [facility] User, Interfaces - 10/31/2020 7:55 PM EST EXAMINATION: CT PE STUDY HISTORY: Chest pain, syncope. COMPARISON: None. TECHNIQUE: CT angiography of the pulmonary arteries following the administration of 75 mL Omnipaque 350 intravenous contrast. Coronal and sagittal MIP (maximum intensity projection) images were performed. Dose reduction techniques were achieved by using automated exposure control and/or adjustment of mA and/or kV according to patient size and/or use of iterative reconstruction technique. AI TECHNOLOGY: This study was processed using [employer]. No prior found. Current Lung Volume: 1.30 liters (right), 1.20 liters (left) No findings. FINDINGS: There are no filling defects within the pulmonary arteries to suggest pulmonary embolism. The aortic root is limited by motion, although there is no convincing aortic aneurysm. No cardiomegaly. No pericardial effusion. Normal thyroid. No enlarged lymph nodes. Patent airway. No pleural effusion. No airspace opacity. Limited visualization of the upper abdomen is unremarkable. No suspicious osseous lesion. IMPRESSION IMPRESSION: No evident pulmonary embolism or other acute process in the chest. [facility] IMPRESSION: No evide nt pulmonary embolism or other acute process in the chest. [facility] EXAMINATION: CT PE S TUDY HISTORY: Chest pain, syncope. COMPARISON: None. TECHNIQUE: CT angiography of the pulmonary arteries following the administration of 75 mL Omnipaque 350 intravenous contrast. Coronal and sagittal MIP (maximum intensity projection) images were performed. Dose reduction techniques were achieved by using automated exposure control and/or adjustment of mA and/or kV according to patient size and/or use of iterative reconstruction technique. AI TECHNOLOGY: This study was processed using [employer]. No prior found. Current Lung Volume: 1.30 liters (right), 1.20 liters (left) No findings. FINDINGS: There are no filling defects within the pulmonary arteries to suggest pulmonary embolism. The aortic root is limited by motion, although there is no convincing aortic aneurysm. No cardiomegaly. No pericardial effusion. Normal thyroid. No enlarged lymph nodes. Patent airway. No pleural effusion. No airspace opacity. Limited visualization of the upper abdomen is unremarkable. No suspicious osseous lesion. [facility] D DIMERon 10-31-2020 D DIMER 1.09 mg/L FEU Critically high <0.56 [facility] Comment on above: Result Comment: If r esult is greater than the cutoff value of 0.5 mg/L then the potential for PE or DVT exists. Other conditions exist which may cause a falsely elevated level. Please correlate clinically, including radiological findings and other clinical parameters. CALLED TO AND READ BACK BY HECTOR GONZALEZ @ 8230 ON 10.31.20 BY GLS Performed By: #### D DIMER, CHEM7F, ACBC #### Testing performed at [address] [address] D-DIMER,QUANTITATIVEon 10-31 Fibrin D-dimer FEU (PPP) [Mass/Vol] 1.09 Critically high <0.56 mg/L FEU [facility] Comment on above: If result is greater than the cutoff value of 0.5 mg/L then the potential for PE or DVT exists. Other conditions exist which may cause a falsely elevated level. Please correlate clinically, including radiological findings and other clinical parameters. CALLED TO AND READ BACK BY HECTOR GONZALEZ @ 0172 ON 10.31.20 BY GLS Interpretation and review of laboratory results [facility]normal [facility] HCG QUALITATIVE, URINEon HCG ( test) Ql (U) Negative NEGATIVE [facility] TROPONIN I, HIGH SENSITIVITY on 10-31-2020 TROPONIN I, HIGH SENSITIVITY <2 Normal 0-12 [facility] Comment on above: Result Comment: Indeterminant: >12 to 100 pg/mL female >20 to 100 pg/mL male Indicative of myocardial injury. Serial sampling is recommended, a change of greater than or equal to 20 pg/mL is indicative of acute coronary syndrome. Performed By: #### T ROHS #### Testing performed at [address] [address] TROPONIN I, HIGH SENSITIVITY <2 0 - 12 pg/mL [facility] Comment on above: Indeterminant: >12 to 100 pg/mL female >20 to 100 pg/mL male Indicative of myocardial injury. Serial sampling is recommended, a change of greater than or equal to 20 pg/mL is indicative of acute coronary syndrome. TSHon 10-31-2020 TSH Qn 1.877 uIU/ML Normal 0.45-5.33 [facility] Comment on above: Performed By: #### T SH2 #### Testing performed at [address] [address] TSH Qn 1.877 m[IU]/L [facility] URINALYSIS, MACROon 10-31-19 Bilirubin Ql (U) SMALL Abnormal NEGATIVE [facility] Clarity (U) SLIGHTLY CLOUDY Abnormal CLEAR [facility] Color (U) PINK Abnormal YELLOW [facility] Glucose Test strip (U) [Mass/Vol] Negative NEGATIVE mg/dl [facility] Hemoglobin Ql (U) LARGE Abnormal NEGATIVE [facility] Interpretation and review of laboratory results Abnormal [facility] Ketones (U) [Mass/Vol] Negative NEGAT ANNA mg/dl [facility] Leukocyte esterase Test strip Ql (U) SMALL Abnormal NEGATIVE [facility] Nitrite Ql (U) Negative NEGATIVE [facility] pH (U) 7.0 [pH] [facility] Protein Ql (U) >300 Abnormal NEGATIVE mg/dl [facility] Specific gravity (U) [Rel density] 1.020 [facility] Urobilinogen (U) [Mass/Vol] 0.2 [facility] URINE HCG QUALon 10-31-2020 Beta HCG ( test) Ql (U) Negative Normal NEGATIVE [facility] Comment on above: Performed By: #### U MAC, UMIC, UHCGT #### Testing performed at [address] [address] URINE MACROSCOPICon 10-31-19 21 Bilirubin Ql (U) SMALL Abnormal NEGATIVE [facility] Comment on above: Performed By: #### U MAC, UMIC, UHCGT #### Testing performed at [address] [address] Clarity (U) SLIGHTLY CLOUDY Abnormal CLEAR [facility] Comment on above: Performed By: #### U MAC, UMIC, UHCGT #### Testing performed at [address] [address] Color (U) PINK Abnormal YELLOW [facility] Comment on above: Performed By: #### U MAC, UMIC, UHCGT #### Testing performed at [address] [address] Glucose Ql (U) Negative Normal NEGATIVE [facility] Comment on above: Performed By: #### U MAC, UMIC, UHCGT #### Testing performed at [address] [address] pH (U) 7.0 [pH] Normal 5.0-7.0 [facility] Comment on above: Performed By: #### U MAC, UMIC, UHCGT #### Testing performed at [address] [address] Protein (U) [Mass/Vol] mg/dL Abnormal NEGATIVE [facility] Comment on above: Performed By: #### U MAC, UMIC, UHCGT #### Testing performed at [address] [address] URINE HEMOGLOBIN LARGE Abnormal NEGATIVE [facility] Comment on above: Performed By: #### U MAC, UMIC, UHCGT #### Testing performed at [address] [address] URINE KETONE Negative Normal NEGATIVE [facility] Comment on above: Performed By: #### U MAC, UMIC, UHCGT #### Testing performed at [address] [address] URINE LEUKOTEST SMALL Abnormal NEGATIVE [facility] Comment on above: Performed By: #### U MAC, UMIC, UHCGT #### Testing performed at [address] [address] URINE NITRATES Negative Normal NEGATIVE [facility] Comment on above: Performed By: #### U MAC, UMIC, UHCGT #### Testing performed at [address] [address] URINE SPEC GRAVITY 1.020 Normal 1.010-1.025 [facility] Comment on above: Performed By: #### U MAC, UMIC, UHCGT #### Testing performed at [address] [address] Urobilinogen Qn (U) 0.2 {Sotero'U}/dL Normal 0.2-1.0 [facility] Comment on above: Performed By: #### U MAC, UMIC, UHCGT #### Testing performed at [address] [address] URINE MICROSCOPICon 10-31-19 21 Bacteria LM.HPF (Urine sed) [#/Area] 1+ Abnormal NEGATIVE [facility] Comment on above: Performed By: #### U MAC, UMIC, UHCGT #### Testing performed at [address] [address] Casts LM.LPF (Urine sed) [#/Area] NONE Normal NONE [facility] Comment on above: Performed By: #### U MAC, UMIC, UHCGT #### Testing performed at [address] [address] CRYSTAL OCCASIONAL Abnormal [facility] Comment on above: Result Comment: CHANTAL PHOUS PHOSPHATES Performed By: #### U MAC, UMIC, UHCGT #### Testing performed at [address] [address] Epithelial cells LM.HPF (Urine sed) [#/Area] TOO NUMEROUS TO COUNT Normal [facility] Comment on above: Performed By: #### U MAC, UMIC, UHCGT #### Testing performed at [address] [address] Mucus Ql (Urine sed) Negative Normal NEGATIVE [facility] Comment on above: Performed By: #### U MAC, UMIC, UHCGT #### Testing performed at [address] [address] RBC (U) [#/Vol] 5 TO 10 Normal NEGATIVE [facility] Comment on above: Performed By: #### U MAC, UMIC, UHCGT #### Testing performed at [address] [address] URINE COMMENT POSSIBLY CONTAMINATE D SPECIMEN, CULTURE MUST BE ORDERED SEPARATELY IF DEEMED NECESSARY. [facility] Comment on above: Performed By: #### U MAC, UMIC, UHCGT #### Testing performed at [address] [address] WBC (U) [#/Vol] 1 TO 5 Normal NEGATIVE [facility] Comment on above: Performed By: #### U MAC, UMIC, UHCGT #### Testing performed at [address] [address] Bacteria LM.HPF (Urine sed) [#/Area] 1+ Abnormal NEGATIVE [facility] Casts LM.LPF (Urine sed) [#/Area] NONE NONE /LPF [facility] Crystals LM Nom (Urine sed) OCCASIONAL Abnormal NONE [facility] Comment on above: AMORPHOUS PHOSPHATES Epithelial cells LM Ql (Urine sed) TOO NUMEROUS TO COUNT /HPF [facility] System Interpretation and review of laboratory results Abnormal [facility] Mucus Ql (Urine sed) Negative NEGATIVE [facility] RBC LM.HPF (Urine sed) [#/Area] 5 TO 10 NEGATIVE /HPF [facility] Urine sediment comments LM Juan (Urine sed) POSSIBLY CONTAMINATED SPECIMEN, CULTURE MUST BE ORDERED SEPARATELY IF DEEMED NECESSARY. [facility] WBC LM.HPF (Urine sed) [#/Area] 1 TO 5 NEGATIVE /HPF [facility] Auto Diffon 03-16-2019 Basophils (Bld) [#/Vol] 0.1 E3/mcL Normal 0.0-0.2 [facility] Comment on above: Order Comment: Order Added by Discern Expert. Performed By: #### 2 [id number] #### LIU RemHemo [address] [place] [address] Basophils/100 WBC (Bld) 1.3 % Normal 0.0-2.0 [facility] Comment on above: Order Comment: Order Added by Discern Expert. Performed By: #### 2 583060 #### LIU RemHemo [address] [place] [address] Eos Absolute 0.2 E3/mcL Normal 0.0-0.7 [facility] Comment on above: Order Comment: Order Added by Discern Expert. Performed By: #### 2 039595 #### LIU RemHemo [address] [place] [address] Eosinophils/100 WBC (Bld) 4.6 % Normal 0.0-11.0 [facility] Comment on above: Order Comment: Order Added by Discern Expert. Performed By: #### 2 260444 #### LIU RemHemo [address] [place] [address] Lymphocytes (Bld) [#/Vol] 1.8 E3/mcL Normal 1.2-3.4 [facility] Comment on above: Order Comment: Order Added by Discern Expert. Performed By: #### 2 114093 #### LIU RemHemo [address] [place] [address] Lymphocytes/100 WBC (Bld) 38.4 % Normal 20.0-55.0 [facility] Comment on above: Order Comment: Order Added by Discern Expert. Performed By: #### 2 [id number] #### LIU RemHemo [address] [place] [address] Bailey Absolute 0.3 E3/mcL Normal 0.0-0.7 [facility] Comment on above: Order Comment: Order Added by Discern Expert. Performed By: #### 2 653252 #### LIU RemHemo [address] [place] [address] Monocytes/100 WBC (Bld) 7.4 % Normal 0.0-10.0 [facility] Comment on above: Order Comment: Order Added by Discern Expert. Performed By: #### 2 416880 #### LIU RemHemo [address] [place] [address] Neutro Absolute 2.2 E3/mcL Normal 1.4-6.5 [facility] Comment on above: Order Comment: Order Added by Discern Expert. Performed By: #### 2 275746 #### LIU MuñozHemo [address] [place], [place] [address] Neutro Auto 48.3 % Normal 37.0-75.0 [facility] Comment on above: Order Comment: Order Added by Discern Expert. Performed By: #### 2 340729 #### LIU RemHemo [address] [place] [address] CBC w/ Auto Diffon 9 Erythrocyte distribution width (RBC) [Ratio] 12.8 % Normal 11.5-14.5 [facility] Comment on above: Performed By: #### 2 467564 #### LIU RemHemo [address] [place] [address] Hematocrit (Bld) [Volume fraction] 37.2 % Normal 36.0-48.0 [facility] Comment on above: Performed By: #### 2 513659 #### LIU RemHemo [address] [place] [address] Hemoglobin (Bld) [Mass/Vol] 12.7 g/dL Normal 12.0-16.0 [facility] Comment on above: Performed By: #### 2 403017 #### LIU RemHemo [address] [place] [address] MCH (RBC) [Entitic mass] 29.8 pg Normal 27.0-31.0 [facility] Comment on above: Performed By: #### 2 999166 #### LIU RemHemo [address] [place] [address] MCHC (RBC) [Mass/Vol] 34.2 g/dL Normal 33.0-37.0 [facility] Comment on above: Performed By: #### 2 811552 #### LIU RemHemo [address] [place] [address] MCV (RBC) [Entitic vol] 87.1 fL Normal 78.0-100.0 [facility] Comment on above: Performed By: #### 2 832919 #### LIU RemHemo [address] [place] [address] Platelet mean volume (Bld) [Entitic vol] 7.6 fL Normal 7.4-11.0 [facility] Comment on above: Performed By: #### 2 472685 #### LIU RemHemo [address] [place] [address] Platelets (Bld) [#/Vol] 321 E3/mcL Normal 130-400 [facility] Comment on above: Performed By: #### 2 852187 #### LIU RemHemo [address] [place] [address] RBC (Bld) [#/Vol] 4.27 E6/mcL Normal 3.90-5.40 [facility] Comment on above: Performed By: #### 2 375956 #### LIU RemHemo [address] [place] [address] WBC (Bld) [#/Vol] 4.6 E3/mcL Normal 3.6-11.0 [facility] Comment on above: Performed By: #### 2 398875 #### LIU RemHemo [address] [place] [address] Ferritinon 03-16-2019 Ferritin [Mass/Vol] 31.0 ng/mL Normal 8.0-150.0 [facility] Comment on above: Performed By: #### 2 973924 #### LIU RemHemo [address] [place] [address] Free T4on 03-16-2019 Free T4 [Mass/Vol] 0.80 ng/dL Normal 0.58-1.64 [facility] Comment on above: Performed By: #### 2 725023 #### LIU RemHemo [address] [place] [address] Ironon 03-16-2019 Iron [Mass/Vol] 254 microgram/dL High 28-175 [facility] Comment on above: Performed By: #### 2 520772 #### LIU RemHemo [facility] [place] [address] TSHon 03-16-2019 TSH Qn 2.47 mcIU/mL Normal 0.30-5.60 [facility] Comment on above: Performed By: #### 2 913067 #### LIU RemHemo [facility] [place] [address] Vit B12on 03-16-2019 Cobalamin (Vitamin B12) [Mass/Vol] 360 pg/mL Normal 180-914 [facility] Comment on above: Performed By: #### 2 663224 #### LIU RemHemo [address] [place] [address] Bailey Screenon 09-12-2018 Bailey Scr Negative Normal Neg [facility] Comment on above: Performed By: #### 2 019978 #### LIU RemHemo [facility] [place] [address] Antinuclear Antibody Screeno n 09-08-2018 TALON Direct Negative Normal Negative [facility] Comment on above: Result Comment: Perf ormed At: [facility] [address] [id number] Tommy Appiah PhD Ph:[phone] Performed By: #### 2 [id number] #### LIU RemHemo [address] [place] [address] Lab Miscellaneouson 09-08-20 18 Status See Ref Lab Report Normal [facility] Comment on above: Performed By: #### 1 [id number] #### LIU Send Outs Subsection [address] [place] [address] IgA, Quant.on 09-06-2018 IgA Quant 118 mg/dL Normal [facility] Comment on above: Result Comment: No p atient age and/or gender provided Male 0 - 10 days 2 - 362 11 days - 6 months 8 - 37 7 - 11 months 12 - 58 1 - 3 years 21 - 111 4 - 15 years 52 - 221 16 - 60 years 90 - 386 >60 years 61 - 437 Female 0 - 10 days 2 - 362 11 days - 6 months 8 - 32 7 - 11 months 11 - 45 1 - 3 years 19 - 102 4 - 15 years 51 - 220 16 - 70 years 87 - 352 >70 years 64 - 422 Performed At: [facility] [address] [place], [place] [id number] Tommy Appiah PhD Ph:[phone] Performed By: #### 1 [id number] #### LIU Send Outs Subsection [address] [place] [address] Thyroid Perox.tpo Abon 09-06 TPO Ab 53 International_Unit/mL High 0-26 [facility] Comment on above: Result Comment: Perf ormed At: [address] [id number] Tommy Appiah PhD Ph:[phone] Performed By: #### 1 [id number] #### LIU Send Outs Subsection [facility] [place] [id number] t-TRANSGLUTAMINASE IgAon t-Transglutaminase IgA <2 Normal 0-3 [facility] Comment on above: Result Comment: Nega tive 0 - 3 Weak Positive 4 - 10 Positive >10 Tissue Transglutaminase (tTG) has been identified as the endomysial antigen. Studies have demonstr- ated that endomysial IgA antibodies have over 99% specificity for gluten sensitive enteropathy. Performed At: [address] [id number] Tommy Appiah PhD Ph:[phone] Performed By: #### 2 765489 #### LIU RemHemo [facility] [place] [address] Auto Diffon 09-03-2018 Basophils (Bld) [#/Vol] 0.0 E3/mcL Normal 0.0-0.2 [facility] Comment on above: Order Comment: Order Added by Discern Expert. Performed By: #### 2 905697 #### LIU RemHemo [facility] [place] [address] Basophils/100 WBC (Bld) 0.6 % Normal 0.0-2.0 [facility] Comment on above: Order Comment: Order Added by Discern Expert. Performed By: #### 2 943678 #### LIU RemHemo [address] [place] [address] Eos Absolute 0.1 E3/mcL Normal 0.0-0.7 [facility] Comment on above: Order Comment: Order Added by Discern Expert. Performed By: #### 2 599963 #### LIU RemHemo [address] [place] [address] Eosinophils/100 WBC (Bld) 1.0 % Normal 0.0-11.0 [facility] Comment on above: Order Comment: Order Added by Discern Expert. Performed By: #### 2 990684 #### LIU RemHemo [address] [place] [address] Lymphocytes (Bld) [#/Vol] 1.0 E3/mcL Low 1.2-3.4 [facility] Comment on above: Order Comment: Order Added by Discern Expert. Performed By: #### 2 411043 #### LIU RemHemo [address] [place] [address] Lymphocytes/100 WBC (Bld) 15.2 % Low 20.0-55.0 [facility] Comment on above: Order Comment: Order Added by Discern Expert. Performed By: #### 2 117280 #### LIU RemHemo [address] [place] [address] Bailey Absolute 0.4 E3/mcL Normal 0.0-0.7 [facility] Comment on above: Order Comment: Order Added by Discern Expert. Performed By: #### 2 077070 #### LIU RemHemo [address] [place] [address] Monocytes/100 WBC (Bld) 7.0 % Normal 0.0-10.0 [facility] Comment on above: Order Comment: Order Added by Discern Expert. Performed By: #### 2 648459 #### LIU RemHemo [address] [place] [address] Neutro Absolute 4.8 E3/mcL Normal 1.4-6.5 [facility] Comment on above: Order Comment: Order Added by Discern Expert. Performed By: #### 2 439677 #### LIU RemHemo [address] [place] [address] Neutro Auto 76.2 % High 37.0-75.0 [facility] Comment on above: Order Comment: Order Added by Discern Expert. Performed By: #### 2 171877 #### LIU MuñozHemo [address] [place] [address] CBC w/ Auto Diffon 8 Erythrocyte distribution width (RBC) [Ratio] 12.8 % Normal 11.5-14.5 [facility] Comment on above: Performed By: #### 2 370961 #### LIU MuñozHemo [facility] [place] [address] Hematocrit (Bld) [Volume fraction] 32.5 % Low 36.0-48.0 [facility] Comment on above: Performed By: #### 2 145402 #### LIU MuñozHemo [facility] [place] [address] Hemoglobin (Bld) [Mass/Vol] 11.2 g/dL Low 12.0-16.0 [facility] Comment on above: Performed By: #### 2 924576 #### LIU MuñozHemo [address] [place] [address] MCH (RBC) [Entitic mass] 29.9 pg Normal 27.0-31.0 [facility] Comment on above: Performed By: #### 2 584254 #### LIU RemHemo [address] [place] [address] MCHC (RBC) [Mass/Vol] 34.5 g/dL Normal 33.0-37.0 [facility] Comment on above: Performed By: #### 2 836306 #### LIU RemHemo [address] [place] [address] MCV (RBC) [Entitic vol] 86.6 fL Normal 78.0-100.0 [facility] Comment on above: Performed By: #### 2 762617 #### LIU RemHemo [address] [place] [address] Platelet mean volume (Bld) [Entitic vol] 7.8 fL Normal 7.4-11.0 [facility] Comment on above: Performed By: #### 2 412511 #### LIU MuñozHemo [address] [place] [address] Platelets (Bld) [#/Vol] 259 E3/mcL Normal 130-400 [facility] Comment on above: Performed By: #### 2 174487 #### LIU MuñozHemo [address] [place] [address] RBC (Bld) [#/Vol] 3.75 E6/mcL Low 3.90-5.40 [facility] Comment on above: Performed By: #### 2 887209 #### LIU MuñozHemo [address] [place] [address] WBC (Bld) [#/Vol] 6.3 E3/mcL Normal 3.6-11.0 [facility] Comment on above: Performed By: #### 2 429891 #### LIU MuñozHemo [address] [place] [address] CMPon 09-03-2018 Anion gap [Moles/Vol] 14 mmol/L Normal 10-20 [facility] Comment on above: Performed By: #### 2 050734 #### LIU [facility]Chem [address] [place] [address] Albumin [Mass/Vol] 4.6 g/dL Normal 3.4-5.0 [facility] Comment on above: Performed By: #### 2 407561 #### LIU [facility] [address] [place] [address] Albumin/Globulin [Mass ratio] 1.8 {ratio} Normal 1.1-1.9 [facility] Comment on above: Performed By: #### 2 875994 #### LIU [employer] [address] [place] [address] Alk Phos 55 Int._Unit/L Normal 33-139 [facility] Comment on above: Performed By: #### 2 389376 #### LIU [facility] [address] [place] [address] ALT [Catalytic activity/Vol] 6 Int._Unit/L Low 7-45 [facility] Comment on above: Performed By: #### 2 085577 #### LIU [facility] [address] [place] [address] AST [Catalytic activity/Vol] 11 Int._Unit/L Normal 9-39 [facility] Comment on above: Performed By: #### 2 431742 #### LIU [facility] [address] [place] [address] Bili Total 0.4 mg/dL Normal 0.0-1.2 [facility] Comment on above: Performed By: #### 2 182889 #### LIU [employer] [address] [place] [address] Calcium [Mass/Vol] 9.1 mg/dL Normal 8.5-10.7 [facility] Comment on above: Performed By: #### 2 398790 #### LIU [employer] [address] [place] [address] Chloride [Moles/Vol] 108 mmol/L High 98-107 [facility] Comment on above: Performed By: #### 2 048785 #### LIU [employer] [facility] [place] [address] CO2 [Moles/Vol] 22.0 mmol/L Normal 21.0-32.0 [facility] Comment on above: Performed By: #### 2 138952 #### LIU [employer] [address] [place] [address] Creatinine [Mass/Vol] 0.6 mg/dL Normal 0.5-1.1 [facility] Comment on above: Performed By: #### 2 417441 #### LIU [employer] [address] [place] [address] Globulin (S) [Mass/Vol] 3.0 g/dL Normal 2.0-4.0 [facility] Comment on above: Performed By: #### 2 360103 #### LIU [facility] [address] [place] [address] Glucose [Mass/Vol] 99 mg/dL Normal 70-99 [facility] Comment on above: Performed By: #### 2 234852 #### LIUCheikh [facility] [address] [place] [address] Potassium [Moles/Vol] 3.6 mmol/L Normal 3.5-5.3 [facility] Comment on above: Performed By: #### 2 686663 #### LIU [employer] [address] [place] [address] Protein [Mass/Vol] 7.2 g/dL Normal 6.4-8.2 [facility] Comment on above: Performed By: #### 2 729035 #### LIU [employer] [address] [place] [address] Sodium [Moles/Vol] 140 mmol/L Normal 136-145 [facility] Comment on above: Performed By: #### 2 454557 #### LIU [employer] [address] [place] [address] Urea nitrogen [Mass/Vol] 8 mg/dL Normal 6-23 [facility] Comment on above: Performed By: #### 2 901256 #### LIU Rem[address] [address] Urea nitrogen/Creatinine [Mass ratio] 13.3 ratio Normal 5.4-30.0 [facility] Comment on above: Performed By: #### 2 055432 #### LIU Rem[address] [address] Free T4on 09-03-2018 Free T4 [Mass/Vol] 0.91 ng/dL Normal 0.58-1.64 [facility] Comment on above: Performed By: #### 2 883102 #### LIU [employer] [address] [place] [address] Lab Miscellaneouson 09-03-20 18 Test Name [id number] Normal [facility] Comment on above: Performed By: #### 1 [id number] #### LIU Send Outs Subsection [address] [place] [address] Sed Rate Automatedon 018 Sed Rate Automated 6 mm/hr Normal [facility] Comment on above: Result Comment: AGE- SPECIFIC REFERENCE RANGES FOR SEDIMENTATION RATE AUTOMATED REFERENCE RANGE - MM/HR AGE MEN WOMEN 0-2 0-2 - PUBERTY 3-13 3-13 PUBERTY - 50 YRS 0-15 0-20 > 50 YRS 0-20 0-30 Performed By: #### 1 [id number] #### LIU Hematology Manual Subsection [address] [place] [address] TSHon 09-03-2018 TSH Qn 2.46 mcIU/mL Normal 0.30-5.60 [facility] Comment on above: Performed By: #### 2 286064 #### LIU [employer]ink [address] [place] [address] eGFRon 09-03-2018 GFR/1.73 sq M predicted among non-blacks MDRD (S/P/Bld) [Vol rate/Area] mL/min/{1.73_m2} Normal [facility] Comment on above: Order Comment: Order added by Discern Expert. Performed By: #### [id number] #### [facility] [address] [place] [address] Vital Signs Date Time Vital Sign Value Performing Clinician Facility 04-06-2025 17:08-0400 Body temperature 98 [degF] Chrystal Schlater PA Work Phone: [facility] 04-06-2025 17:08-0400 Diastolic blood pressure 75 mm[Hg] Chrystal Schlater PA Work Phone: [facility] 04-06-2025 17:08-0400 Heart rate 77 /min Chrystal Cally PA Work Phone: [facility] 04-06-2025 17:08-0400 Respiratory rate 16 /min Chrystal Schlater PA Work Phone: [facility] 04-06-2025 17:08-0400 SaO2% (BldA) [Mass fraction] 100 % Chrystal Cally PA Work Phone: [facility] 04-06-2025 17:08-0400 Systolic blood pressure 107 mm[Hg] Chrystal Cally PA Work Phone: [facility] 04-06-2025 12:51-0400 Body height 160.02 cm Chrystal Schlater PA Work Phone: [facility] 04-06-2025 12:51-0400 Body mass index (BMI) [Ratio] 24.2 kg/m2 Chrystal Schlater PA Work Phone: [facility] 04-06-2025 12:51-0400 Body weight 62 kg Chrystal Schlater PA Work Phone: [facility] 04-05-2025 10:53-0400 Body height 160.02 cm Chrystal Schlater PA Work Phone: [facility] 04-05-2025 10:51-0400 Body mass index (BMI) [Ratio] 24.4 kg/m2 Chrystal Schlater PA Work Phone: [facility] 04-05-2025 10:51-0400 Body weight 62.59 kg Chrystal Schlater PA Work Phone: [facility] 04-05-2025 10:51-0400 Diastolic blood pressure 79 mm[Hg] Chrystal Schlater PA Work Phone: [facility] 04-05-2025 10:51-0400 Systolic blood pressure 121 mm[Hg] Chrystal Schlater PA Work Phone: [facility] 03-11-2025 08:03-0400 Body height 160.02 cm Chrystal Cally PA Work Phone: [facility] 03-11-2025 08:03-0400 Body mass index (BMI) [Ratio] 24.1 kg/m2 Chrystal Schlater PA Work Phone: [facility] 03-11-2025 08:03-0400 Body weight 61.8 kg Chrystal Cally PA Work Phone: [facility] 03-11-2025 08:03-0400 Diastolic blood pressure 73 mm[Hg] Chrystal Schlater PA Work Phone: [facility] 03-11-2025 08:03-0400 Heart rate 93 /min Chrystal Cally PA Work Phone: [facility] 03-11-2025 08:03-0400 SaO2% (BldA) [Mass fraction] 98 % Chrystal Schlater PA Work Phone: [facility] 03-11-2025 08:03-0400 Systolic blood pressure 106 mm[Hg] Chrystal Cally PA Work Phone: [facility] 01-05-2025 14:42-0400 Body height 160 cm Chrystal Cally PA-C Work Phone: [facility] 01-05-2025 14:42-0400 Body mass index (BMI) [Ratio] 24.27 kg/m2 Chrystal Cally PA-C Work Phone: [facility] 01-05-2025 14:42-0400 Body weight 62.14 kg Chrystal Cally PA-C Work Phone: [facility] 01-05-2025 14:42-0400 Diastolic blood pressure 62 mm[Hg] Chrystal Cally PA-C Work Phone: [facility] 01-05-2025 14:42-0400 Heart rate 76 /min Chrystal Schlater PA-C Work Phone: [facility] 01-05-2025 14:42-0400 Systolic blood pressure 108 mm[Hg] Chrystal Schlater PA-C Work Phone: [facility] 12-22-2024 09:34-0400 Body height 160.02 cm Chrystal Cally PA Work Phone: [facility] 12-22-2024 09:34-0400 Body mass index (BMI) [Ratio] 24.5 kg/m2 Chrystal Cally PA Work Phone: [facility] 12-22-2024 09:34-0400 Body weight 62.76 kg Chrystal Schlater PA Work Phone: [facility] 12-22-2024 09:34-0400 Diastolic blood pressure 79 mm[Hg] Chrystal Cally PA Work Phone: [facility] 12-22-2024 09:34-0400 Systolic blood pressure 124 mm[Hg] Chrystal Cally PA Work Phone: [facility] 11-24-2024 14:51-0500 Body height 160 cm Chrystal Cally PA-C Work Phone: [facility] 11-24-2024 14:51-0500 Body mass index (BMI) [Ratio] 25.23 kg/m2 Chrystal Cally PA-C Work Phone: [facility] 11-24-2024 14:51-0500 Body weight 64.59 kg Chrystal Schlater PA-C Work Phone: [facility] 11-24-2024 14:51-0500 Diastolic blood pressure 78 mm[Hg] Chrystal Schlater PA-C Work Phone: [facility] 11-24-2024 14:51-0500 Heart rate 93 /min Chrystal Schlater PA-C Work Phone: [facility] 11-24-2024 14:51-0500 SaO2% (BldA) [Mass fraction] 98 % Chrystal Cally PA-C Work Phone: [facility] 11-24-2024 14:51-0500 Systolic blood pressure 112 mm[Hg] Chrystal Schlater PA-C Work Phone: [facility] 08-06-2024 16:51-0400 Body height 160 cm Roe Newbill PA-C Work Phone: [facility] 08-06-2024 16:51-0400 Body mass index (BMI) [Ratio] 26.57 kg/m2 Roe Newbill PA-C Work Phone: [facility] 08-06-2024 16:51-0400 Body temperature 98.49 [degF] Roe Newbill PA-C Work Phone: [facility] 08-06-2024 16:51-0400 Body weight 68.04 kg Roe Newbill PA-C Work Phone: [facility] 08-06-2024 16:51-0400 Diastolic blood pressure 77 mm[Hg] Roe Newbill PA-C Work Phone: [facility] 08-06-2024 16:51-0400 Heart rate 78 /min Roe Newbill PA-C Work Phone: [facility] 08-06-2024 16:51-0400 Respiratory rate 16 /min Roe Newbill PA-C Work Phone: [facility] 08-06-2024 16:51-0400 SaO2% (BldA) [Mass fraction] 99 % Roe Newbill PA-C Work Phone: [facility] 08-06-2024 16:51-0400 Systolic blood pressure 120 mm[Hg] Roe Newbill PA-C Work Phone: [facility] 01-27-2024 13:07-0400 Body height 160.02 cm PA Chrystal Schlater PA Work Phone: [facility] 01-21-2024 09:56-0400 Body mass index (BMI) [Ratio] 30.4 kg/m2 PA Chrystal Schlater PA Work Phone: [facility] 01-21-2024 09:56-0400 Body weight 78.01 kg PA Chrystal Cally PA Work Phone: [facility] 01-21-2024 09:56-0400 Diastolic blood pressure 83 mm[Hg] PA Chrystal Schlater PA Work Phone: [facility] 01-21-2024 09:56-0400 Systolic blood pressure 129 mm[Hg] PA Chrystal Schlater PA Work Phone: [facility] 12-18-2023 18:38-0500 Diastolic blood pressure 70 mm[Hg] PA Chrystal Cally PA Work Phone: [facility] 12-18-2023 18:38-0500 Heart rate 71 /min PA Chrystal Cally PA Work Phone: [facility] 12-18-2023 18:38-0500 Systolic blood pressure 120 mm[Hg] PA Chrystal Schlater PA Work Phone: [facility] 12-18-2023 18:01-0500 Body height 160.02 cm PA Chrystal Cally PA Work Phone: [facility] 12-18-2023 18:01-0500 Body mass index (BMI) [Ratio] 31.7 kg/m2 PA Chrystal Schlater PA Work Phone: [facility] 12-18-2023 18:01-0500 Body weight 81.3 kg PA Chrystal Schlater PA Work Phone: [facility] 12-18-2023 17:54-0500 SaO2% (BldA) [Mass fraction] 99 % PA Chrystal Schlater PA Work Phone: [facility] 12-18-2023 17:53-0500 Body temperature 98.5 [degF] PA Chrystal Schlater PA Work Phone: [facility] 12-18-2023 17:53-0500 Respiratory rate 18 /min PA Chrystal Cally PA Work Phone: [facility] 12-14-2023 09:03-0500 Body temperature 98.1 [degF] PA Chrystal Cally PA Work Phone: [facility] 12-14-2023 09:03-0500 Diastolic blood pressure 63 mm[Hg] PA Chrystal Schlater PA Work Phone: [facility] 12-14-2023 09:03-0500 Heart rate 90 /min PA Chrystal Cally PA Work Phone: [facility] 12-14-2023 09:03-0500 Respiratory rate 16 /min PA Chrystal Cally PA Work Phone: [facility] 12-14-2023 09:03-0500 Systolic blood pressure 118 mm[Hg] PA Chrystal Cally PA Work Phone: [facility] 12-14-2023 01:03-0500 SaO2% (BldA) [Mass fraction] 98 % PA Chrystal Cally PA Work Phone: [facility] 12-12-2023 15:10-0500 Body height 160.02 cm PA Chrystal Cally PA Work Phone: [facility] 12-12-2023 15:10-0500 Body mass index (BMI) [Ratio] 34 kg/m2 PA Chrystal Schlater PA Work Phone: [facility] 12-12-2023 15:10-0500 Body weight 87.08 kg PA Chrystal Cally PA Work Phone: [facility] 12-12-2023 14:25-0500 Body mass index (BMI) [Ratio] 34.3 kg/m2 PA Chrystal Cally PA Work Phone: [facility] 12-12-2023 14:25-0500 Body weight 87.99 kg PA Chrystal Schlater PA Work Phone: [facility] 12-12-2023 14:25-0500 Diastolic blood pressure 77 mm[Hg] PA Chrystal Cally PA Work Phone: [facility] 12-12-2023 14:25-0500 Systolic blood pressure 112 mm[Hg] PA Chrystal Cally PA Work Phone: [facility] 12-05-2023 13:53-0500 Body mass index (BMI) [Ratio] 33.6 kg/m2 PA Chrystal Cally PA Work Phone: [facility] 12-05-2023 13:53-0500 Body weight 86.18 kg PA Chrystal Schlater PA Work Phone: [facility] 12-05-2023 13:53-0500 Diastolic blood pressure 72 mm[Hg] PA Chrystal Schlater PA Work Phone: [facility] 12-05-2023 13:53-0500 Systolic blood pressure 104 mm[Hg] PA Chrystal Schlater PA Work Phone: [facility] 11-27-2023 22:28-0500 Heart rate 94 /min PA Chrystal Schlater PA Work Phone: [facility] 11-27-2023 22:28-0500 SaO2% (BldA) [Mass fraction] 98 % PA Chrystal Schlater PA Work Phone: [facility] 11-27-2023 21:32-0500 Body height 160.02 cm PA Chrystal Schlater PA Work Phone: [facility] 11-27-2023 21:32-0500 Body mass index (BMI) [Ratio] 33.8 kg/m2 PA Chrystal Cally PA Work Phone: [facility] 11-27-2023 21:32-0500 Body weight 86.7 kg PA Chrystal Cally PA Work Phone: [facility] 11-27-2023 20:36-0500 Body temperature 98.3 [degF] PA Chrystal Cally PA Work Phone: [facility] 11-27-2023 20:36-0500 Diastolic blood pressure 63 mm[Hg] PA Chrystal Cally PA Work Phone: [facility] 11-27-2023 20:36-0500 Systolic blood pressure 112 mm[Hg] PA Chrystal Cally PA Work Phone: [facility] 11-14-2023 10:46-0500 Body mass index (BMI) [Ratio] 33.5 kg/m2 PA Chrystal Cally PA Work Phone: [facility] 11-14-2023 10:46-0500 Body weight 85.89 kg PA Chrystal Cally PA Work Phone: [facility] 11-14-2023 10:46-0500 Diastolic blood pressure 74 mm[Hg] PA Chrystal Schlater PA Work Phone: [facility] 11-14-2023 10:46-0500 Systolic blood pressure 124 mm[Hg] PA Chrystal Schlater PA Work Phone: [facility] 11-06-2023 13:33-0500 Body height 160.02 cm PA Chrystal Cally PA Work Phone: [facility] 11-06-2023 13:33-0500 Body weight 85.54 kg PA Chrystal Schlater PA Work Phone: [facility] 10-30-2023 10:34-0500 Body mass index (BMI) [Ratio] 33 kg/m2 PA Chrystal Cally PA Work Phone: [facility] 10-30-2023 10:34-0500 Body weight 84.53 kg PA Chrystal Cally PA Work Phone: [facility] 10-30-2023 10:34-0500 Diastolic blood pressure 71 mm[Hg] PA Chrystal Cally PA Work Phone: [facility] 10-30-2023 10:34-0500 Systolic blood pressure 117 mm[Hg] PA Chrystal Cally PA Work Phone: [facility] 10-18-2023 11:51-0500 Body temperature 98.8 [degF] PA Chrystal Cally PA Work Phone: [facility] 10-18-2023 11:51-0500 Diastolic blood pressure 56 mm[Hg] PA Chrystal Schlater PA Work Phone: [facility] 10-18-2023 11:51-0500 Heart rate 95 /min PA Chrystal Cally PA Work Phone: [facility] 10-18-2023 11:51-0500 Respiratory rate 16 /min PA Chrystal Cally PA Work Phone: [facility] 10-18-2023 11:51-0500 SaO2% (BldA) [Mass fraction] 96 % PA Chrystal Schlater PA Work Phone: [facility] 10-18-2023 11:51-0500 Systolic blood pressure 102 mm[Hg] PA Chrystal Schlater PA Work Phone: [facility] 10-18-2023 09:06-0500 Body height 160.02 cm PA Chrystal Schlater PA Work Phone: [facility] 10-18-2023 09:06-0500 Body mass index (BMI) [Ratio] 3.2 kg/m2 PA Chrystal Cally PA Work Phone: [facility] 10-18-2023 09:06-0500 Body weight 8.16 kg PA Chrystal Schlater PA Work Phone: [facility] 10-17-2023 10:10-0500 Body mass index (BMI) [Ratio] 34 kg/m2 PA Chrystal Cally PA Work Phone: [facility] 10-17-2023 10:10-0500 Body weight 84.53 kg PA Chrystal Schlater PA Work Phone: [facility] 10-17-2023 10:10-0500 Diastolic blood pressure 80 mm[Hg] PA Chrystal Schlater PA Work Phone: [facility] 10-17-2023 10:10-0500 Systolic blood pressure 121 mm[Hg] PA Chrystal Cally PA Work Phone: [facility] 10-16-2023 21:28-0500 Diastolic blood pressure 86 mm[Hg] PA Chrystal Cally PA Work Phone: [facility] 10-16-2023 21:28-0500 Heart rate 91 /min PA Chrystal Schlater PA Work Phone: [facility] 10-16-2023 21:28-0500 Systolic blood pressure 117 mm[Hg] PA Chrystal Cally PA Work Phone: [facility] 10-16-2023 19:19-0500 Respiratory rate 19 /min PA Chrystal Schlater PA Work Phone: [facility] 10-16-2023 17:51-0500 Body height 157.48 cm PA Chrystal Schlater PA Work Phone: [facility] 10-16-2023 17:51-0500 Body mass index (BMI) [Ratio] 33.3 kg/m2 PA Chrystal Cally PA Work Phone: [facility] 10-16-2023 17:51-0500 Body temperature 97.4 [degF] PA Chrystal Schlater PA Work Phone: [facility] 10-16-2023 17:51-0500 Body weight 82.55 kg PA Chrystal Cally PA Work Phone: [facility] 10-16-2023 17:51-0500 SaO2% (BldA) [Mass fraction] 99 % PA Chrystal Schlater PA Work Phone: [facility] 09-16-2023 15:22-0500 Body height 157.48 cm PA Chrystal Cally PA Work Phone: [facility] 09-16-2023 15:22-0500 Body mass index (BMI) [Ratio] 32.2 kg/m2 PA Chrystal Cally PA Work Phone: [facility] 09-16-2023 15:22-0500 Body weight 79.88 kg PA Chrystal Cally PA Work Phone: [facility] 09-16-2023 15:22-0500 Diastolic blood pressure 68 mm[Hg] PA Chrystal Schlater PA Work Phone: [facility] 09-16-2023 15:22-0500 Systolic blood pressure 118 mm[Hg] PA Chrystal Schlater PA Work Phone: [facility] 08-08-2023 11:21-0400 Body height 157.48 cm PA Chrystal Schlater PA Work Phone: [facility] 08-08-2023 11:21-0400 Body mass index (BMI) [Ratio] 29 kg/m2 PA Chrystal Cally PA Work Phone: [facility] 08-08-2023 11:21-0400 Body temperature 97.8 [degF] PA Chrystal Schlater PA Work Phone: [facility] 08-08-2023 11:21-0400 Body weight 71.89 kg PA Chrystal Schlater PA Work Phone: [facility] 08-08-2023 11:21-0400 Diastolic blood pressure 70 mm[Hg] PA Chrystal Cally PA Work Phone: [facility] 08-08-2023 11:21-0400 Heart rate 78 /min PA Chrystal Cally PA Work Phone: [facility] 08-08-2023 11:21-0400 Respiratory rate 16 /min PA Chrystal Schlater PA Work Phone: [facility] 08-08-2023 11:21-0400 SaO2% (BldA) [Mass fraction] 98 % PA Chrystal Cally PA Work Phone: [facility] 08-08-2023 11:21-0400 Systolic blood pressure 116 mm[Hg] PA Chrystal Schlater PA Work Phone: [facility] 07-26-2023 15:10-0400 Body mass index (BMI) [Ratio] 26.7 kg/m2 PA Chrystal Cally PA Work Phone: [facility] 07-26-2023 15:10-0400 Body weight 68.49 kg PA Chrystal Schlater PA Work Phone: [facility] 07-26-2023 15:10-0400 Diastolic blood pressure 73 mm[Hg] PA Chrystal Cally PA Work Phone: [facility] 07-26-2023 15:10-0400 Systolic blood pressure 117 mm[Hg] PA Chrystal Cally PA Work Phone: [facility] 06-26-2023 15:14-0400 Body mass index (BMI) [Ratio] 26.2 kg/m2 PA Chrystal Cally PA Work Phone: [facility] 06-26-2023 15:14-0400 Body weight 64.86 kg PA Chrystal Cally PA Work Phone: [facility] 06-26-2023 15:14-0400 Diastolic blood pressure 69 mm[Hg] PA Chrystal Cally PA Work Phone: [facility] 06-26-2023 15:14-0400 Systolic blood pressure 116 mm[Hg] PA Chrystal Schlater PA Work Phone: [facility] 05-27-2023 13:38-0400 Body height 157.48 cm PA Chrystal Schlater PA Work Phone: [facility] 05-27-2023 13:38-0400 Body mass index (BMI) [Ratio] 24.9 kg/m2 PA Chrystal Cally PA Work Phone: [facility] 05-27-2023 13:38-0400 Body weight 61.74 kg PA Chrystal Schlater PA Work Phone: [facility] 05-27-2023 13:38-0400 Diastolic blood pressure 73 mm[Hg] PA Chrystal Cally PA Work Phone: [facility] 05-27-2023 13:38-0400 Systolic blood pressure 121 mm[Hg] PA Chrystal Cally PA Work Phone: [facility] 03-14-2023 15:04-0400 Body height 157.5 cm Alexa Lancaster APRN-PEBBLE MILL OPERATOR Work Phone: [facility] 03-14-2023 15:04-0400 Body mass index (BMI) [Ratio] 24.14 kg/m2 Alexa Lancaster APRN-PEBBLE MILL OPERATOR Work Phone: [facility] 03-14-2023 15:04-0400 Body weight 59.88 kg Alexa Lancaster VOCATIONAL 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 Work Phone: [facility] 03-14-2023 15:04-0400 Diastolic blood pressure 65 mm[Hg] Alexa Lancaster VOCATIONAL 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 Work Phone: [facility] 03-14-2023 15:04-0400 Heart rate 86 /min Alexa Lancaster VOCATIONAL 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 Work Phone: [facility] 03-14-2023 15:04-0400 Systolic blood pressure 101 mm[Hg] Alexa Lancaster VOCATIONAL 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 Work Phone: [facility] 12-06-2022 13:21-0500 Body height 157.48 cm Chrystal Sorensen Schlater Work Phone: [employer] Work Phone: 12-06-2022 13:21-0500 Body mass index (BMI) [Ratio] 23.85 kg/m2 Chrystal Wrightenhall Work Phone: [employer] [place] Work Phone: 12-06-2022 13:21-0500 Body surface area Derived from formula 1.59 m2 Chrystal Sorensen Cally Work Phone: [employer] [place] Work Phone: 12-06-2022 13:21-0500 Body weight 59.13 kg Chrystal Wrightenhall Work Phone: [employer] [address] [place] Work Phone: 12-06-2022 13:21-0500 Diastolic blood pressure 70 mm[Hg] Chrystal Wrightenhall Work Phone: [employer] [address] [place] Work Phone: 12-06-2022 13:21-0500 Systolic blood pressure 108 mm[Hg] Chrystal Wrightenhall Work Phone: [employer] [address] [place] Work Phone: 09-24-2022 14:10-0500 Body height 157.48 cm Chrystal Alamo Work Phone: [facility] Work Phone: 09-24-2022 14:10-0500 Body mass index (BMI) [Ratio] 24.14 kg/m2 Chrystal Alamo Work Phone: [facility] Work Phone: 09-24-2022 14:10-0500 Body surface area Derived from formula 1.6 m2 Chrystal Alamo Work Phone: [facility] Work Phone: 09-24-2022 14:10-0500 Body weight 59.88 kg Chrystal Alamo Work Phone: [facility] Work Phone: 09-24-2022 14:10-0500 Diastolic blood pressure 78 mm[Hg] Chrystal Alamo Work Phone: [facility] Work Phone: 09-24-2022 14:10-0500 Heart rate 100 /min Chrystal Alamo Work Phone: [facility] Work Phone: 09-24-2022 14:10-0500 SaO2% (BldA) [Mass fraction] 97 % Chrystal Alamo Work Phone: [facility] Work Phone: 09-24-2022 14:10-0500 Systolic blood pressure 110 mm[Hg] Chrystal Alamo Work Phone: [facility] Work Phone: 03-05-2022 11:05-0400 Body height 157.48 cm Chrystal Alamo Work Phone: [address] Work Phone: 03-05-2022 11:05-0400 Body mass index (BMI) [Ratio] 28.4 kg/m2 Chrystal Alamo Work Phone: [place] [address] [place] Work Phone: 03-05-2022 11:05-0400 Body surface area Derived from formula 1.72 m2 Chrystal Vallejoall Work Phone: [place] [address] [place] Work Phone: 03-05-2022 11:05-0400 Body weight 70.42 kg Chrystal Alamo Work Phone: [address] Work Phone: 03-05-2022 11:05-0400 Diastolic blood pressure 78 mm[Hg] Chrystal Alamo Work Phone: [address] Work Phone: 03-05-2022 11:05-0400 Systolic blood pressure 118 mm[Hg] Chrystal Alamo Work Phone: [address] Work Phone: 02-13-2022 13:24-0400 Body height 157.48 cm Chrystal Vallejoall Work Phone: [facility] Work Phone: 02-13-2022 13:24-0400 Body mass index (BMI) [Ratio] 28.53 kg/m2 Chrystal Vallejoall Work Phone: [facility] Work Phone: 02-13-2022 13:24-0400 Body surface area Derived from formula 1.72 m2 Chrystal Vallejoall Work Phone: [facility] Work Phone: 02-13-2022 13:24-0400 Body weight 70.76 kg Chrystal Vallejoall Work Phone: [facility] Work Phone: 02-13-2022 13:24-0400 Diastolic blood pressure 62 mm[Hg] Chrystal Alamo Work Phone: [facility] Work Phone: 02-13-2022 13:24-0400 Heart rate 72 /min Chrystal Alamo Work Phone: [facility] Work Phone: 02-13-2022 13:24-0400 Systolic blood pressure 104 mm[Hg] Chrystal Alamo Work Phone: [facility] Work Phone: 01-12-2022 13:16-0400 Body height 157.48 cm Chrystal Alamo Work Phone: [facility] Work Phone: 01-12-2022 13:16-0400 Body mass index (BMI) [Ratio] 30.18 kg/m2 Chrystal Alamo Work Phone: [facility] Work Phone: 01-12-2022 13:16-0400 Body surface area Derived from formula 1.76 m2 Chrystal Alamo Work Phone: [facility] Work Phone: 01-12-2022 13:16-0400 Body weight 74.84 kg Chrystal Alamo Work Phone: [facility] Work Phone: 01-12-2022 13:16-0400 Diastolic blood pressure 64 mm[Hg] Chrystal Alamo Work Phone: [facility] Work Phone: 01-12-2022 13:16-0400 Heart rate 100 /min Chrystal Alamo Work Phone: [facility] Work Phone: 01-12-2022 13:16-0400 Systolic blood pressure 108 mm[Hg] Chrystal Vallejoall Work Phone: [facility] Work Phone: 12-19-2021 13:44-0500 Body height 157.48 cm Chrystal Vallejoall Work Phone: [employer] [address] [place] Work Phone: 12-19-2021 13:44-0500 Body mass index (BMI) [Ratio] 30.52 kg/m2 Chrystal Vallejoall Work Phone: [employer] [address] Work Phone: 12-19-2021 13:44-0500 Body surface area Derived from formula 1.77 m2 Chrystal Vallejoall Work Phone: [facility] [employer] [address] Work Phone: 12-19-2021 13:44-0500 Body weight 75.7 kg Chrystal Vallejoall Work Phone: [facility] [address] Work Phone: 12-19-2021 13:44-0500 Diastolic blood pressure 80 mm[Hg] Chrystal Vallejoall Work Phone: [facility] [address] Work Phone: 12-19-2021 13:44-0500 Systolic blood pressure 102 mm[Hg] Chrystal Vallejoall Work Phone: [facility] [address] Work Phone: 11-10-2021 13:51-0500 Body height 157.48 cm Chrystal Vallejoall Work Phone: [facility] [address] Work Phone: 11-10-2021 13:51-0500 Body mass index (BMI) [Ratio] 35.73 kg/m2 Chrystal Wrightenhall Work Phone: [facility] [address] Work Phone: 11-10-2021 13:51-0500 Body surface area Derived from formula 1.89 m2 Chrystal Alamo Work Phone: [facility] [address] [address] [place] Work Phone: 11-10-2021 13:51-0500 Body temperature 98.6 [degF] Chrystal Alamo Work Phone: [place] [address] [employer] Work Phone: 11-10-2021 13:51-0500 Body weight 88.6 kg Chrystal Alamo Work Phone: [place] [address] [employer] Work Phone: 11-10-2021 13:51-0500 Diastolic blood pressure 80 mm[Hg] Chrystal Alamo Work Phone: [place] [address] [employer] Work Phone: 11-10-2021 13:51-0500 Systolic blood pressure 120 mm[Hg] Chrystal Alamo Work Phone: [place] [address] [employer] Work Phone: 11-09-2021 13:41-0500 Body temperature 98.78 [degF] Chrystal Schlater Other Phone: [facility] 11-09-2021 13:41-0500 Diastolic blood pressure 76 mm[Hg] Chrystal Alamo Other Phone: [facility] 11-09-2021 13:41-0500 Heart rate 104 /min Chrystal Alamo Other Phone: [facility] 11-09-2021 13:41-0500 Respiratory rate 18 /min Chrystal Alamo Other Phone: [facility] 11-09-2021 13:41-0500 SaO2% (BldA) [Mass fraction] 99 % Chrystal Alamo Other Phone: [facility] 11-09-2021 13:41-0500 Systolic blood pressure 129 mm[Hg] Chrystal Alamo Other Phone: [facility] 10-31-2021 14:32-0500 Body height 157.48 cm Chrystal Vallejoall Work Phone: [employer] [employer] [address] Work Phone: 10-31-2021 14:32-0500 Body mass index (BMI) [Ratio] 37.18 kg/m2 Chrystal Vallejoall Work Phone: [facility] [employer] [address] Work Phone: 10-31-2021 14:32-0500 Body surface area Derived from formula 1.92 m2 Chrystal Alamo Work Phone: [facility] [address] Work Phone: 10-31-2021 14:32-0500 Body temperature 96.8 [degF] Chrystal Vallejoall Work Phone: [facility] [employer] [address] Work Phone: 10-31-2021 14:32-0500 Body weight 92.2 kg Chrystal Alamo Work Phone: [employer] [address] Work Phone: 10-31-2021 14:32-0500 Diastolic blood pressure 72 mm[Hg] Chrystal Vallejoall Work Phone: [facility] [address] Work Phone: 10-31-2021 14:32-0500 Systolic blood pressure 120 mm[Hg] Chrystal Vallejoall Work Phone: [facility] [address] Work Phone: 10-24-2021 14:04-0500 Body height 157.48 cm Chrystal Vallejoall Work Phone: [facility] [address] [address] [place] Work Phone: 10-24-2021 14:04-0500 Body mass index (BMI) [Ratio] 36.85 kg/m2 Chrystal Alamo Work Phone: [place] [address] [address] [place] Work Phone: 10-24-2021 14:04-0500 Body surface area Derived from formula 1.92 m2 Chrystal Alamo Work Phone: [place] [address] [address] [place] Work Phone: 10-24-2021 14:04-0500 Body temperature 97.1 [degF] Chrystal Alamo Work Phone: [address] Work Phone: 10-24-2021 14:04-0500 Body weight 91.4 kg Chrystal Alamo Work Phone: [address] Work Phone: 10-24-2021 14:04-0500 Diastolic blood pressure 76 mm[Hg] Chrystal Alamo Work Phone: [address] Work Phone: 10-24-2021 14:04-0500 Systolic blood pressure 120 mm[Hg] Chrystal Alamo Work Phone: [place] [address] [address] [place] Work Phone: 09-29-2021 13:00-0500 Body height 157.48 cm Chrystal Alamo Work Phone: [place] [address] [address] [place] Work Phone: 09-29-2021 13:00-0500 Body mass index (BMI) [Ratio] 34.48 kg/m2 Chrystal Vallejoall Work Phone: [place] [address] [place] Work Phone: 09-29-2021 13:00-0500 Body surface area Derived from formula 1.86 m2 Chrystal Alamo Work Phone: [facility] [address] [address] [place] Work Phone: 09-29-2021 13:00-0500 Body temperature 96.9 [degF] Chrystal Alamo Work Phone: [facility] [address] [address] [place] Work Phone: 09-29-2021 13:00-0500 Body weight 85.5 kg Chrystal Alamo Work Phone: [facility] hospitalMarket6[place] [address] [place] Work Phone: 09-29-2021 13:00-0500 Diastolic blood pressure 60 mm[Hg] Chrystal Alamo Work Phone: [place] [address] [place] Work Phone: 09-29-2021 13:00-0500 Systolic blood pressure 120 mm[Hg] Chrystal Alamo Work Phone: [place] [address] [place] Work Phone: 09-18-2021 15:35-0500 Body height 157.48 cm Chrystal Alamo Work Phone: [facility] [address] [address] [place] Work Phone: 09-18-2021 15:35-0500 Body mass index (BMI) [Ratio] 35.28 kg/m2 Chrystal Alamo Work Phone: [place] [address] [place] Work Phone: 09-18-2021 15:35-0500 Body surface area Derived from formula 1.88 m2 Chrystal Alamo Work Phone: [facility] [address] [address] [place] Work Phone: 09-18-2021 15:35-0500 Body temperature 96.8 [degF] Chrystal Alamo Work Phone: [place] [address] [place] Work Phone: 09-18-2021 15:35-0500 Body weight 87.5 kg Chrystal Vallejoall Work Phone: [facility] [address] [address] [place] Work Phone: 09-18-2021 15:35-0500 Diastolic blood pressure 70 mm[Hg] Chrystal Vallejoall Work Phone: [place] [address] [place] Work Phone: 09-18-2021 15:35-0500 Systolic blood pressure 120 mm[Hg] Chrystal Vallejoall Work Phone: [place] [address] [place] Work Phone: 09-05-2021 08:27-0500 Body height 157.48 cm Chrystal Vallejoall Work Phone: [place] [address] [place] Work Phone: 09-05-2021 08:27-0500 Body mass index (BMI) [Ratio] 34.52 kg/m2 Chrystal Vallejoall Work Phone: [place] [address] [place] Work Phone: 09-05-2021 08:27-0500 Body surface area Derived from formula 1.86 m2 Chrystal Vallejoall Work Phone: [place] [address] [place] Work Phone: 09-05-2021 08:27-0500 Body temperature 95.7 [degF] Chrystal Vallejoall Work Phone: [place] [address] [address] [place] Work Phone: 09-05-2021 08:27-0500 Body weight 85.6 kg Chrystal Vallejoall Work Phone: [place] [address] [place] Work Phone: 09-05-2021 08:27-0500 Diastolic blood pressure 62 mm[Hg] Chrystal Vallejoall Work Phone: [place] [address] [address] [place] Work Phone: 09-05-2021 08:27-0500 Systolic blood pressure 100 mm[Hg] Chrystal Vallejoall Work Phone: [place] [address] [address] [place] Work Phone: 08-21-2021 10:24-0500 Body height 157.48 cm Chrystal Vallejoall Work Phone: [place] [address] [address] [place] Work Phone: 08-21-2021 10:24-0500 Body mass index (BMI) [Ratio] 33.27 kg/m2 Chrystal Alamo Work Phone: [place] [address] [place] Work Phone: 08-21-2021 10:24-0500 Body surface area Derived from formula 1.84 m2 Chrystal Edu Cally Work Phone: [place] [address] [place] Work Phone: 08-21-2021 10:24-0500 Body temperature 97.5 [degF] Chrystal Alamo Work Phone: [address] Work Phone: 08-21-2021 10:24-0500 Body weight 82.5 kg Chrystal Alamo Work Phone: [place] [address] [place] Work Phone: 08-21-2021 10:24-0500 Diastolic blood pressure 60 mm[Hg] Chrystal Edu Cally Work Phone: [place] [address] [place] Work Phone: 08-21-2021 10:24-0500 Systolic blood pressure 98 mm[Hg] Chrystal Sorensen Schlater Work Phone: [place] [address] [place] Work Phone: 07-24-2021 16:04-0400 Body height 157.48 cm Chrystal Alamo Work Phone: [place] [address] [place] Work Phone: 07-24-2021 16:04-0400 Body mass index (BMI) [Ratio] 30.85 kg/m2 Chrystal Alamo Work Phone: [place] [address] [place] Work Phone: 07-24-2021 16:04-0400 Body surface area Derived from formula 1.78 m2 Chrystal Alamo Work Phone: [employer] [address] [address] [place] Work Phone: 07-24-2021 16:04-0400 Body temperature 98.2 [degF] Chrystal Alamo Work Phone: [employer] [address] [address] [place] Work Phone: 07-24-2021 16:04-0400 Body weight 76.5 kg Chrystal Alamo Work Phone: [employer] [address] [address] [place] Work Phone: 07-24-2021 16:04-0400 Diastolic blood pressure 68 mm[Hg] Chrystal Alamo Work Phone: [employer] [address] [address] [place] Work Phone: 07-24-2021 16:04-0400 Systolic blood pressure 100 mm[Hg] Chrystal Alamo Work Phone: [employer] [place] [address] [address] [place] Work Phone: 07-19-2021 15:40-0400 Body height 157.48 cm Chrystal Alamo Work Phone: [employer] [place] [address] [place] Work Phone: 07-19-2021 15:40-0400 Body mass index (BMI) [Ratio] 31.09 kg/m2 Chrystal Alamo Work Phone: [employer] [place] [address] [place] Work Phone: 07-19-2021 15:40-0400 Body surface area Derived from formula 1.78 m2 Chrystal Alamo Work Phone: [employer] Work Phone: 07-19-2021 15:40-0400 Body temperature 98.2 [degF] Chrystal Alamo Work Phone: [place] [address] [place] Work Phone: 07-19-2021 15:40-0400 Body weight 77.1 kg Chrystal Alamo Work Phone: [place] [address] [place] Work Phone: 07-19-2021 15:40-0400 Diastolic blood pressure 70 mm[Hg] Chrystal Alamo Work Phone: [employer] [place] [address] [address] [place] Work Phone: 07-19-2021 15:40-0400 Systolic blood pressure 120 mm[Hg] Chrystal Alamo Work Phone: [employer] [address] [place] Work Phone: 06-26-2021 14:56-0400 Body height 157.48 cm Chrystal Alamo Work Phone: [employer] [place] [address] [place] Work Phone: 06-26-2021 14:56-0400 Body mass index (BMI) [Ratio] 28.53 kg/m2 Chrystal Alamo Work Phone: [employer] [address] [place] Work Phone: 06-26-2021 14:56-0400 Body surface area Derived from formula 1.72 m2 Chrystal Alamo Work Phone: [employer] [address] [place] Work Phone: 06-26-2021 14:56-0400 Body temperature 98 [degF] Chrystal Alamo Work Phone: [facility] [place] [address] [employer] Work Phone: 06-26-2021 14:56-0400 Body weight 70.76 kg Chrystal Alamo Work Phone: [facility] [employer] Work Phone: 06-26-2021 14:56-0400 Diastolic blood pressure 60 mm[Hg] Chrystal Edu WrightSchlater Work Phone: [place] [address] [employer] Work Phone: 06-26-2021 14:56-0400 Systolic blood pressure 112 mm[Hg] Chrystal Edu WrightCally Work Phone: [place] [address] [employer] Work Phone: 06-15-2021 18:43-0400 Body height 160 cm Chrystal Alamo Other Phone: [facility] 06-15-2021 18:43-0400 Body temperature 98.6 [degF] Chrystal Alamo Other Phone: [facility] 06-15-2021 18:43-0400 Diastolic blood pressure 55 mm[Hg] Chrystal Alamo Other Phone: [facility] 06-15-2021 18:43-0400 Heart rate 128 /min Chrystal Alamo Other Phone: [facility] 06-15-2021 18:43-0400 SaO2% (BldA) [Mass fraction] 98 % Chrystal Alamo Other Phone: [facility] 06-15-2021 18:43-0400 Systolic blood pressure 98 mm[Hg] Chrystal Alamo Other Phone: [facility] 05-29-2021 15:12-0400 Body height 157.48 cm Chrystal Edu Cally Work Phone: [place] [address] [employer] Work Phone: 05-29-2021 15:12-0400 Body mass index (BMI) [Ratio] 27.14 kg/m2 Chrystal Vallejoall Work Phone: [place] [address] [place] Work Phone: 05-29-2021 15:12-0400 Body surface area Derived from formula 1.68 m2 Chrystal Vallejoall Work Phone: [employer] [address] [place] Work Phone: 05-29-2021 15:12-0400 Body temperature 97.7 [degF] Chrystal Vallejoall Work Phone: [employer] [address] [place] Work Phone: 05-29-2021 15:12-0400 Body weight 67.3 kg Chrystal Alamo Work Phone: [facility] hospitalMarket6[place] [address] [place] Work Phone: 05-29-2021 15:12-0400 Diastolic blood pressure 72 mm[Hg] Chrystal Vallejoall Work Phone: [employer] [address] [place] Work Phone: 05-29-2021 15:12-0400 Systolic blood pressure 112 mm[Hg] Chrystal Alamo Work Phone: [facility] [address] [place] Work Phone: 05-01-2021 15:12-0400 Body height 157.48 cm Chrystal Vallejoall Work Phone: [employer] [place] [address] [place] Work Phone: 05-01-2021 15:12-0400 Body mass index (BMI) [Ratio] 24.4 kg/m2 Chrystal Vallejoall Work Phone: [place] [place] [address] [place] Work Phone: 05-01-2021 15:12-0400 Body surface area Derived from formula 1.61 m2 Chrystal Vallejoall Work Phone: [address] Work Phone: 05-01-2021 15:12-0400 Body temperature 97.3 [degF] Chrystal Alamo Work Phone: [address] Work Phone: 05-01-2021 15:12-0400 Body weight 60.5 kg Chrystal Alamo Work Phone: [address] Work Phone: 05-01-2021 15:12-0400 Diastolic blood pressure 64 mm[Hg] Chrystal Alamo Work Phone: [address] Work Phone: 05-01-2021 15:12-0400 Systolic blood pressure 108 mm[Hg] Chrystal Alamo Work Phone: [address] Work Phone: 04-25-2021 13:30-0400 Body height 157.48 cm Chrystal Alamo Work Phone: [facility] Work Phone: 04-25-2021 13:30-0400 Body mass index (BMI) [Ratio] 24.14 kg/m2 Chrystal Alamo Work Phone: [facility] Work Phone: 04-25-2021 13:30-0400 Body surface area Derived from formula 1.6 m2 Chrystal Alamo Work Phone: [facility] Work Phone: 04-25-2021 13:30-0400 Body weight 59.87 kg Chrystal Edu Cally Work Phone: [facility] Work Phone: 04-25-2021 13:30-0400 Diastolic blood pressure 62 mm[Hg] Chrystal Alamo Work Phone: [facility] Work Phone: 04-25-2021 13:30-0400 Heart rate 84 /min Chrystal Alamo Work Phone: [facility] Work Phone: 04-25-2021 13:30-0400 Systolic blood pressure 124 mm[Hg] Chrystal Alamo Work Phone: [facility] Work Phone: 04-03-2021 15:08-0400 Body height 157.48 cm Chrystal Alamo Work Phone: [address] Work Phone: 04-03-2021 15:08-0400 Body mass index (BMI) [Ratio] 23.39 kg/m2 Chrystal Alamo Work Phone: [address] Work Phone: 04-03-2021 15:08-0400 Body surface area Derived from formula 1.58 m2 Chrystal Alamo Work Phone: [address] Work Phone: 04-03-2021 15:08-0400 Body temperature 97.5 [degF] Chrystal Alamo Work Phone: [address] Work Phone: 04-03-2021 15:08-0400 Body weight 58 kg Chrystal Alamo Work Phone: [address] Work Phone: 04-03-2021 15:08-0400 Diastolic blood pressure 62 mm[Hg] Chrystal Alamo Work Phone: [address] Work Phone: 04-03-2021 15:08-0400 Systolic blood pressure 110 mm[Hg] Chrystal Alamo Work Phone: [employer] [address] [place] Work Phone: 03-20-2021 13:31-0400 Body height 157.48 cm Chrystal Alamo Work Phone: [facility] hospitalMarket6[place] [address] [place] Work Phone: 03-20-2021 13:31-0400 Body mass index (BMI) [Ratio] 22.94 kg/m2 Chrystal Alamo Work Phone: [facility] hospitalMarket6[place] [address] [place] Work Phone: 03-20-2021 13:31-0400 Body surface area Derived from formula 1.57 m2 Chrystal Alamo Work Phone: [employer] [address] [place] Work Phone: 03-20-2021 13:31-0400 Body temperature 98 [degF] Chrystal Alamo Work Phone: [employer] [address] [place] Work Phone: 03-20-2021 13:31-0400 Body weight 56.9 kg Chrystal Alamo Work Phone: [employer] [address] [place] Work Phone: 03-20-2021 13:31-0400 Diastolic blood pressure 62 mm[Hg] Chrystal Alamo Work Phone: [facility]Market6[place] [address] [place] Work Phone: 03-20-2021 13:31-0400 Systolic blood pressure 112 mm[Hg] Chrystal Alamo Work Phone: [facility] hospitalMarket6[place] [address] [place] Work Phone: 11-11-2020 10:53-0500 BMI (Body Mass Index) 22.42 kg/m2 Alexa Beyer [facility] Work Phone: 11-11-2020 10:53-0500 Body Temperature 96.6 [degF] Alexa Beyer [facility] Work Phone: 11-11-2020 10:53-0500 Body weight 55.61 kg Alexa Beyer [facility] Work Phone: 11-11-2020 10:53-0500 BP Diastolic 68 mm[Hg] Alexa Beyer [facility] Work Phone: 11-11-2020 10:53-0500 BP Systolic 106 mm[Hg] Alexa Beyer [facility] Work Phone: 11-11-2020 10:53-0500 BSA (Body Surface Area) 1.55 m2 Alexa Beyer [facility] Work Phone: 11-11-2020 10:53-0500 Height 157.48 cm Alexa Beyer [facility] Work Phone: 11-11-2020 10:53-0500 Pulse (Heart Rate) 115 /min Alexa Beyer [facility] Work Phone: 11-11-2020 10:53-0500 Pulse Oximetry 98 % Alexa Beyer [facility] Work Phone: 10-31-2020 18:57-0500 BP Diastolic 74 mm[Hg] [facility] 10-31-2020 18:57-0500 BP Systolic 125 mm[Hg] [facility] [employer] [facility] 10-31-2020 18:57-0500 Pulse (Heart Rate) 95 /min [facility] [employer] [facility] 10-31-2020 18:57-0500 Pulse Oximetry 99 % Robert [facility] 10-31-2020 18:57-0500 Respiratory Rate 16 /min Robert [facility] [facility] 10-31-2020 16:27-0500 Height 157.5 cm [facility] [employer] [facility] 10-31-2020 16:26-0500 Body Temperature 98.2 [degF] [facility] En[facility]ters Encounter Date Encounter Type Care Provider Facility Start: 04-06-2025 End: 04-06-2025 Admission to same day surgery center Dr. Esme Baker MD -[facility] Start: 04-06-2025 End: 04-06-2025 ambulatory Esme Baker Facility:[facility] Start: 04-06-2025 Non-patient / Non-visit Dr. Luciano Baker MD -[facility] Start: 04-05-[address] Brandi Freeman DO -Laboratory Specimen Work Phone: Start: 04-05-2025 [facility] Start: 04-05-2025 End: 04-05-[address] Brandi Freeman DO -[place] [facility] [place] Work Phone: Start: 04-05-2025 End: 04-05-2025 ambulatory Chrystal ACEVEDO Work Phone: [facility] Work Phone: Start: 03-11-2025 End: 03-11-[address] Anson Richter MD -[facility] Work Phone: Start: 03-11-2025 End: 03-11-2025 ambulatory Chrystal ACEVEDO Work Phone: [facility] [employer] [facility] Work Phone: Start: 03-11-2025 End: 03-11-2025 ambulatory Anson Richter Facility:[facility] Start: 01-05-2025 End: 01-05-2025 Office outpatient visit 25 minutes Chrystal ACEVEDO-C Work Phone: [facility] Comment on above: Acute pain of right shoulder (Primary Dx); Vitamin D deficiency; Iron deficiency anemia, unspecified iron deficiency anemia type; Sivan's thyroiditis; Acute right-sided thoracic back pain Start: 01-05-2025 End: 01-05-2025 ambulatory CHRYSTAL B [facility] Start: 12-25-2024 End: 12-25-2024 Emergency department patient visit CHRYSTAL ALAMO [facility] Start: 12-24-2024 End: 12-24-2024 ambulatory Chrystal ACEVEDO Work Phone: [facility] Work Phone: Start: 12-24-2024 End: 12-24-[address] Esme Baker MD [facility] Work Phone: Start: 12-24-2024 End: 12-24-2024 ambulatory Esme Baker Facility:[facility] Start: 12-22-2024 End: 12-22-[address] Esme Baker MD -[facility] Work Phone: Start: 12-22-2024 End: 12-22-2024 ambulatory Chrystal ACEVEDO Work Phone: [facility] Work Phone: Start: 12-22-2024 End: 12-22-2024 ambulatory Esme Baker Facility:[facility] Start: 11-24-2024 End: 11-24-2024 Office outpatient visit 25 minutes Chrystal Alamo PA-C Work Phone: [facility] Comment on above: Fatigue, unspecified type (Primary Dx); Sivan's thyroiditis; Iron deficiency anemia, unspecified iron deficiency anemia type; Diet controlled gestational diabetes mellitus (GDM) in third trimester ([facility]); Pain of left heel; Acute pain of left foot; Acute left ankle pain; Mild persistent asthma without complication ([facility]) Start: 11-24-2024 End: 11-24-2024 ambulatory [facility] Start: 09-14-2024 End: 09-14-[address] Anson Richter MD -Laboratory Work Phone: Start: 09-14-2024 End: 09-14-2024 ambulatory Anson Richter Facility:[facility] Start: 08-06-2024 End: 08-06-2024 Office outpatient new 30 minutes Roe RODRIGUEZC Work Phone: [facility] Comment on above: Dysuria (Primary Dx) Start: 08-06-2024 End: 08-06-2024 ambulatory [facility] Start: 07-09-2024 End: 07-09-2024 ambulatory [facility] Facility:[facility] Start: 06-03-2024 End: 06-03-2024 ambulatory [facility] Facility:[facility] Start: 02-26-2024 End: 02-27-2024 ambulatory [facility] Start: 01-21-2024 End: 01-21-2024 ambulatory PA Chrystal ACEVEDO Work Phone: [facility] Work Phone: Start: 01-21-2024 End: 01-21-2024 Patient encounter procedure PA Chrystal ACEVEDO Work Phone: [facility]-Laboratory, Specimen Work Phone: Start: 01-21-2024 End: 01-21-2024 Patient encounter procedure PA Chrystal ACEVEDO Work Phone: [facility] [place] Work Phone: Start: 01-02-2024 End: 01-02-2024 Patient encounter procedure PA Chrystal Alamo PA Work Phone: [facility] Work Phone: Start: 12-18-2023 Non-patient / Non-visit PA Robert Alamo PA Work Phone: [facility] Start: 12-18-2023 End: 12-18-2023 ambulatory PA Chrystal Alamo PA Work Phone: [facility] Work Phone: Start: 12-18-2023 End: 12-18-2023 Patient encounter procedure PA Chrystal Alamo [facility] Work Phone: Start: 12-15-2023 End: 12-15-2023 Patient encounter procedure PA Chrystal Schlater PA Work Phone: [facility] [facility] Work Phone: Start: 12-14-2023 Non-patient / Non-visit PA Robert ann-marie Cally PA Work Phone: [facility] Start: 12-13-2023 Non-patient / Non-visit PA Robert ann-marie Cally PA Work Phone: [facility] Start: 12-12-2023 End: 12-14-2023 Evaluation and management of inpatient PA Chrystal Alamo PA Work Phone: [facility] Work Phone: Start: 12-12-2023 End: 12-12-2023 Patient encounter procedure PA Chrystal Schlater PA Work Phone: [facility] Work Phone: Start: 12-05-2023 End: 12-05-2023 Patient encounter procedure PA Chrystalann-marie Alamo PA Work Phone: [facility] Work Phone: Start: 12-05-2023 End: 12-05-2023 Patient encounter procedure PA Chrystal Cally PA Work Phone: [facility] Work Phone: Start: 11-27-2023 Non-patient / Non-visit PA Robert ann-marie Schlater PA Work Phone: [facility] Start: 11-27-2023 End: 11-27-2023 ambulatory PA Chrystal Alamo PA Work Phone: [facility] Work Phone: Start: 11-27-2023 End: 11-27-2023 Patient encounter procedure CURTIS ACEVEDO [facility] Work Phone: Start: 11-26-2023 End: 11-26-2023 Patient encounter procedure CURTIS ACEVEDO Work Phone: [facility] Work Phone: Start: 11-14-2023 End: 11-14-2023 Patient encounter procedure CURTIS ACEVEDO Work Phone: [facility] Work Phone: Start: 11-06-2023 End: 11-13-2023 ambulatory PA Chrystal ACEVEDO Work Phone: [facility] Work Phone: Start: 11-06-2023 End: 11-13-2023 Discharged Recurring CURTIS ACEVEDO [facility] Phone: [facility] Work Phone: Start: 10-30-2023 End: 10-30-2023 Patient encounter procedure CURTIS ACEVEDO Work Phone: [facility] Work Phone: Start: 10-23-2023 End: 10-23-2023 ambulatory PA Chrystal ACEVEDO Work Phone: [facility] Work Phone: Start: 10-23-2023 End: 10-23-2023 Patient encounter procedure CURTIS ACEVEDO Work Phone: [facility]Laboratory Work Phone: Start: 10-18-2023 End: 10-18-2023 Office outpatient visit 25 minutes Alexa Lancaster APRN-PEBBLE MILL OPERATOR Work Phone: [facility] Comment on above: Acute non-recurrent maxillary sinusitis (Primary Dx); Nasal congestion Start: 10-18-2023 End: 10-18-2023 Patient encounter procedure PA Chrystal ACEVEDO Work Phone: [facility]Medical Out Work Phone: Start: 10-17-2023 End: 10-17-2023 Patient encounter procedure PA Chrystal Alamo PA Work Phone: [facility] Work Phone: Start: 10-16-2023 End: 10-16-2023 Emergency department patient visit PA Chrystal ACEVEDO Work Phone: [facility]Emergency Department Work Phone: Start: 10-03-2023 End: 10-03-2023 ambulatory PA Chrystal Alamo PA Work Phone: [facility] Work Phone: Start: 10-03-2023 End: 10-03-2023 Patient encounter procedure PA Chrystal Alamo PA Work Phone: [facility] Work Phone: Start: 09-16-2023 End: 09-16-2023 ambulatory PA Chrystal Alamo PA Work Phone: [facility] Work Phone: Start: 09-16-2023 End: 09-16-2023 Patient encounter procedure PA Chrystal ACEVEDO Work Phone: [facility] Work Phone: Start: 08-08-2023 End: 08-08-2023 ambulatory PA Chrystal Alamo PA Work Phone: [facility] Work Phone: Start: 08-08-2023 End: 08-08-2023 Patient encounter procedure PA Chrystal Alamo PA Work Phone: [facility] Work Phone: Start: 07-26-2023 End: 07-26-2023 Patient encounter procedure CURTIS ACEVEDO Work Phone: [facility] Work Phone: Start: 06-26-2023 End: 06-26-2023 Patient encounter procedure CURTIS ACEVEDO Work Phone: [facility] Work Phone: Start: 05-27-2023 End: 05-27-2023 ambulatory CURTIS ACEVEDO Work Phone: [facility] Work Phone: Start: 05-27-2023 End: 05-27-2023 Patient encounter procedure CURTIS ACEVEDO Work Phone: [facility]-Laboratory, OP Pavilion Start: 05-27-2023 End: 05-27-2023 Patient encounter procedure CURTIS ACEVEDO Work Phone: [facility] Work Phone: Start: 2023 End: 04-21-2023 ambulatory [facility] Start: 04-17-2023 End: 04-18-2023 ambulatory [facility] Start: 03-20-2023 End: 03-20-2023 Office outpatient visit 25 minutes Alexa Lancaster VOCATIONAL 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 Work Phone: [facility] Comment on above: Iron deficiency anem ia, unspecified iron deficiency anemia type (Primary Dx); Sivan's thyroiditis Start: 03-19-2023 End: 03-20-2023 ambulatory [facility] Start: 03-14-2023 End: 03-14-2023 Office outpatient visit 25 minutes Alexa Lancaster VOCATIONAL 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 Work Phone: [facility] Comment on above: Abscess (Primary Dx) ; Low thyroid stimulating hormone (TSH) level; Iron deficiency anemia, unspecified iron deficiency anemia type Start: 02-08-2023 End: 02-08-2023 Office outpatient visit 15 minutes Alexa Lancaster VOCATIONAL 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 Work Phone: [facility] Comment on above: Genital herpes simpl ex, unspecified site (Primary Dx) Start: 01-31-2023 ambulatory Ms. Chrystal payton Cally Facility:[id number] Start: 12-06-2022 Periodic preventive med est patient 18-39 yrs Chrystal Alamo [facility] Phone[facility] [employer] Work Phone: Start: 12-06-2022 ambulatory Ms. Rochelle Boyer Fa cility:[id number] Start: 10-17-2022 Office outpatient vi sit 15 minutes Chrystal Alamo Work Phone: [facility] Work Phone: Start: 10-17-2022 ambulatory PA-C CHRYSTAL ALAMO Facility:[id number] Start: 09-27-2022 Chart Update Chrystal cast Work Phone: [facility] Work Phone: Start: 09-25-2022 Chart Update Chrystal cast Work Phone: [facility] Work Phone: Start: 09-24-2022 ambulatory PA-C CHRYSTAL ALAMO Facility:[id number] Start: 09-24-2022 Office outpatient vi sit 25 minutes Chrystal Alamo Work Phone: [facility] Work Phone: Start: 04-25-2022 ambulatory PA-C CHRYSTAL ALAMO Facility:[id number] Start: 03-22-2022 Chart Update Chrystal cast Work Phone: [facility] Work Phone: Start: 03-09-2022 Chart Update Chrystal cast [facility] Phone: [facility] [employer] Work Phone: Start: 03-06-2022 Chart Update Chrystal Herrera serene Work Phone: [place] [address] [place] Work Phone: Start: 03-05-[address] Tayler Santiago Facility:[id number] Start: 02-13-2022 ambulatory PA-C CHRYSTAL ALAMO Facility:[id number] Start: 02-13-2022 Office outpatient vi sit 25 minutes Chrystal Alamo Work Phone: [facility] Work Phone: Start: 02-01-2022 Telephone encounter Chrystal varghese Work Phone: [facility] Work Phone: Start: 01-24-2022 AUDIT Chrystal Herrera serene Work Phone: [place] [address] [place] Work Phone: Start: 01-12-2022 ambulatory Ms. Kayleigh Chawla Facility:[id number] Start: 01-12-2022 Office outpatient vi sit 15 minutes Chrystal Alamo Work Phone: [facility] Work Phone: Start: 01-01-2022 Chart Update Chrystal Wrightpolo cast Work Phone: [facility] Work Phone: Start: 12-29-2021 Office outpatient vi sit 15 minutes Chrystal Alamo Work Phone: [facility] Work Phone: Start: 12-19-2021 Patient encounter procedure Chrystal Alamo Work Phone: [address] Work Phone: Start: 12-03-2021 Chart Update Chrystal Herrera serene Work Phone: [facility] Work Phone: Start: 11-10-2021 Office outpatient vi sit 10 minutes Chrystal Vallejoall Work Phone: [facility] [address] [place] Work Phone: Start: 11-07-2021 End: 11-09-2021 Evaluation and management of inpatient Paulino [place] [facility] Start: 10-31-2021 Office outpatient vi sit 10 minutes Chrystal Alamo Work Phone: [facility] [address] [place] Work Phone: Start: 10-16-2021 Office outpatient vi sit 10 minutes Chrystal Wrightenhall Work Phone: [facility] [address] [place] Work Phone: Start: 09-22-2021 AUDIT Chrystal Herrera nhirving Work Phone: [address] Work Phone: Start: 09-21-2021 AUDIT Chrystal Herrera nhirving Work Phone: [facility] [address] [place] Work Phone: Start: 09-18-2021 Patient encounter procedure Chrystal Alamo Work Phone: [facility] [address] [place] Work Phone: Start: 09-05-2021 Office outpatient vi sit 10 minutes Chrystal Vallejoall Work Phone: [facility] [address] [place] Work Phone: Start: 08-21-2021 AUDIT Chrystal Herrera nhirving Work Phone: [facility] [address] [place] Work Phone: Start: 08-21-2021 Office outpatient vi sit 10 minutes Chrystal Wrightenhall Work Phone: [facility] [address] [place] Work Phone: Start: 07-24-2021 Office outpatient vi sit 15 minutes Chrystalann-marie Vallejoall Work Phone: [facility] [address] [place] Work Phone: Start: 07-21-2021 Chart Update Chrystal Herrera nhall Work Phone: [facility] [address] [place] Work Phone: Start: 07-19-2021 Office outpatient vi sit 10 minutes Chrystal Wrightenhall Work Phone: [facility] [address] [place] Work Phone: Start: 06-27-2021 Chart Update Chrystal Herrera nhall Work Phone: [facility] [address] [place] Work Phone: Start: 06-26-2021 Office outpatient vi sit 10 minutes Chrystal Alamo Work Phone: [facility] [address] [place] Work Phone: Start: 06-15-2021 End: 06-15-2021 Emergency department patient visit [facility] Start: 05-29-2021 EPVOB, Provider: Paulino Christian, Status: Pen, Time: 3:15 PM Chrystal Alamo Work Phone: [facility] [address] [place] Work Phone: Start: 05-29-2021 Office outpatient vi sit 10 minutes Chrystal Alamo Work Phone: [facility] [address] [place] Work Phone: Start: 05-28-2021 AUDIT Chrystal Herrera nhall Work Phone: [facility] [address] [place] Work Phone: Start: 05-15-2021 Chart Update Chrystal Herrera nhall Work Phone: [facility] [address] [place] Work Phone: Start: 05-08-2021 Chart Update Chrystal Herrera nhall Work Phone: [facility] [address] [place] Work Phone: Start: 05-03-2021 Chart Update Chrystal cast Work Phone: [place] [address] [place] Work Phone: Start: 05-02-2021 Chart Update Chrystal Herrera nhirving Work Phone: [place] [address] [place] Work Phone: Start: 05-02-2021 Chart Update Chrystal Herrera nhirving Work Phone: [place] [address] [place] Work Phone: Start: 05-01-2021 Office outpatient vi sit 15 minutes Chrystalann-marie Wrightenhall Work Phone: [place] [address] [place] Work Phone: Start: 04-25-2021 Office outpatient vi sit 15 minutes Chrystal Wrightenhall Work Phone: [facility] Work Phone: Start: 04-25-2021 Patient encounter procedure Chrystal Wrightenhall Work Phone: [facility] Work Phone: Start: 04-03-2021 Office outpatient vi sit 15 minutes Chrystal Vallejoall Work Phone: [address] Work Phone: Start: 03-20-2021 Office outpatient ne w 30 minutes Chrystal Wrightenhall Work Phone: [address] Work Phone: Start: 11-22-2020 Patient encounter procedure Alexa Beyer [facility] Work Phone: Start: 11-16-2020 Patient encounter procedure Alexa Beyer [facility] Work Phone: Start: 11-11-2020 Patient encounter procedure Alexa Beyer [facility] Work Phone: Start: 10-31-2020 End: 10-31-2020 Emergency department patient visit Robert Linares Work Phone: [facility] Start: 11-24-2019 Patient encounter procedure Chrystal Alamo [facility] Work Phone: Start: 10-29-2019 Patient encounter procedure Chrystal Alamo [facility] Work Phone: Start: 12-28-2018 End: 12-29-2018 Patient encounter procedure MILADIS Mehta [facility] Cancer cervix - screening done Chrystal Alamo Work Phone: [employer] Work Phone: Comment on above: 05/01/2021; NIL; Encounter for gynecological examination (general) (routine) without abnormal findings Chrystal Alamo Work Phone: [employer] Work Phone: Comment on above: 05/01/2021; NIL; Patient encounter status Chrystal Alamo Work Phone: [employer] Work Phone: Procedures Date Procedure Procedure Detail Performing Clinician Start: 04-06-2025 Dilation and curetta ge of uterus Chrystal ACEVEDO Work Phone: Start: 04-06-2025 Total iron binding c apacity measurement Chrystal ACEVEDO Work Phone: Start: 04-05-2025 Methadone measurement, urine Chrystal ACEVEDO Work Phone: Start: 03-11-2025 Vitamin D, 25-hydrox y measurement Chrystal ACEVEDO Work Phone: Comment on above: Vitamin D StatusDefi ciency: <20 ng/mL (50nmol/L)Insufficiency: 20-30 ng/mL (50-75 nmol/L)Sufficiency: 30-100 ng/mL (75-250 nmol/L)Toxicity: >100 ng/mL (>250 nmol/L) Start: 12-24-2024 Pelvic echography Rache l Cally ACEVEDO Work Phone: Start: 12-22-2024 Vitamin D, 25-hydrox y measurement Chrystal ACEVEDO Work Phone: Comment on above: Vitamin D StatusDefi ciency: <20 ng/mL (50nmol/L)Insufficiency: 20-30 ng/mL (50-75 nmol/L)Sufficiency: 30-100 ng/mL (75-250 nmol/L)Toxicity: >100 ng/mL (>250 nmol/L) Start: 11-25-2024 Thyrotropin [Units/v olume] in Serum or Plasma Chrystal ACEVEDO-C Work Phone: Start: 08-06-2024 POCT UA AUTOMATED MA NUMARYLOU Au Pam Sanjana PA-C Work Phone: Start: 02-26-2024 CBC W Auto Different ial panel - Blood CHRYSTAL ALAMO Start: 02-26-2024 Comprehensive metabo lic 2000 panel - Serum or Plasma CHRYSTAL ALAMO Start: 02-26-2024 Cyanocobalamin vitamin b-12 CHRYSTAL ALAMO Start: 02-26-2024 IRON AND TIBC CHRYSTAL ME GIRON Start: 02-26-2024 THYROXINE, FREE CHRYSTAL ALAMO Start: 02-26-2024 TRIIODOTHYRONINE, FREE CHRYSTAL ALAMO Start: 02-26-2024 Thyrotropin [Units/v olume] in Serum or Plasma CHRYSTAL ALAMO Start: 12-05-2023 Group B Streptococcus Culture CURTIS ACEVEDO Work Phone: Start: 12-05-2023 Ultrasound scan for growth CURTIS ACEVEDO Work Phone: Start: 11-27-2023 Ultrasonography for biophysical profile without non-stress testing CURTIS ACEVEDO Work Phone: Start: 05-27-2023 Urine culture CURTIS ACEVEDO Work Phone: Start: 2023 HUMAN CHORIONIC GONA DOTROPIN, SERUM QUANTITATIVE CHRYSTAL ALAMO Start: 04-17-2023 CBC W Auto Different ial panel - Blood CHRYSTAL ALAMO Start: 04-17-2023 Ferritin [Mass/volum e] in Serum or Plasma CHRYSTAL ALAMO Start: 04-17-2023 HUMAN CHORIONIC GONA DOTROPIN, SERUM QUANTITATIVE CHRYSTAL ALAMO Start: 04-17-2023 IRON AND TIBC CHRYSTAL DIXON NDENHALL Start: 04-17-2023 Thyrotropin [Units/v olume] in Serum or Plasma CHRYSTAL ALAMO Start: 04-17-2023 THYROXINE, FREE CHRYSTAL ALAMO Start: 04-17-2023 TRIIODOTHYRONINE, FREE CHRYSTAL ALAMO Start: 03-19-2023 CBC W Auto Different ial panel - Blood CHRYSTAL ALAMO Start: 03-19-2023 Comprehensive metabo lic 2000 panel - Serum or Plasma CHRYSTAL ALAMO Start: 03-19-2023 Cyanocobalamin vitamin b-12 CHRYSTAL ALAMO Start: 03-19-2023 Ferritin [Mass/volum e] in Serum or Plasma CHRYSTAL ALAMO Start: 03-19-2023 FOLATE CHRYSTAL HOLDEN Start: 03-19-2023 Hemoglobin A1c/Hemoglobin.total in Blood CHRYSTAL ALAMO Start: 03-19-2023 IRON AND TIBC CHRYSTAL RGNCALL Start: 03-19-2023 Lipid panel CHRYSTAL HOLDEN Start: 03-19-2023 Thyrotropin [Units/v olume] in Serum or Plasma CHRYSTAL ALAMO Start: 03-19-2023 THYROXINE, FREE CHRYSTAL ALAMO Start: 03-19-2023 TRIIODOTHYRONINE, FREE CHRYSTAL ALAMO Start: 03-19-2023 Lipid 1995 panel - S jovanny or Plasma Alexa ROA Work Phone: Start: 03-20-2022 Lipid 1995 panel - S jovanny or Plasma Alexa ROA Work Phone: Start: 11-08-2021 Hemoglobin F [Presen ce] in Blood Paulino Braden Start: 11-08-2021 Rhogam Paulino Adai r Start: 05-01-2021 Microscopic observat ion [Identifier] in Cervix by Cyto stain Alexa ROA Work Phone: Start: 11-16-2020 Echocardiography Alexa luque Start: 11-11-2020 Echocardiography Alexa luque Start: 11-11-2020 Holter Monitor 3-14 Days Alexa Beyer Start: 10-31-2020 CT of chest Marybel salamanca Work Phone: Start: 10-31-2020 Choriogonadotropin ( test) [Presence] in Urine Marybel Bustos Work Phone: Start: 10-31-2020 Urinalysis microscopic only Marybel Bustos Work Phone: Start: 10-31-2020 Urinalysis, reagent strip without microscopy Marybel Bustos Work Phone: Start: 10-31-2020 Assay of troponin quantitative Marybel Bustos Work Phone: Start: 10-31-2020 Assay of thyroid sti mulating hormone tsh Marybel Bustos Work Phone: Start: 10-31-2020 Complete blood count with white cell differential, automated Marybel Bustos Work Phone: Start: 10-31-2020 Creatinine blood Marybel Bustos Work Phone: Start: 10-31-2020 Fibrin dgradj produc ts d-dimer quantitative Marybel Bustos Work Phone: Excision of thyroglo ssal duct cyst Chrystal Alamo Operation on mouth Chrystal giron Tonsillectomy Chrystal villatoro Plan of Treatment Date Care Activity Detail Author Start: 2050 Zoster Vaccines (1 of 2) Zoste r Vaccines (1 of 2) [facility] Start: 08-22-2031 DTaP/Tdap/Td Vaccine s (7 - Td or Tdap) DTaP/Tdap/Td Vaccines (7 - Td or Tdap) [facility] Start: 08-22-2031 DTaP/Tdap/Td Vaccine s (8 - Td or Tdap) DTaP/Tdap/Td Vaccines (8 - Td or Tdap) [facility] Start: 03-19-2028 Lipid panel Lipid Panel [facility] Start: 03-20-2027 Lipid panel Lipid Panel [facility] Start: 11-25-2025 Thyroid stimulating hormone measurement TSH Level [facility] Start: 05-04-2025 End: 05-04-2025 Patient encounter procedure 05/04/2025 9:00 AM EDT Office Visit [facility] [address] [place] [id number] Chrystal Alamo PA-C [address] [place] [address] [facility] Start: 04-07-2025 End: 01-05-2026 25-hydroxyvitamin D3 [Mass/volume] in Serum or Plasma Vitamin D 25-Hydroxy,Total (for eval of Vitamin D levels) Lab Routine Vitamin D deficiency Expected: 04/07/2025 (Approximate), Expires: 01/05/2026 [facility] Work Phone: Comment on above: Expected: 04/07/2025 (Approximate), Expires: 01/05/2026 Start: 04-07-2025 End: 01-05-2026 CBC W Auto Differential panel - Blood CBC and Auto Differential Lab Routine Iron deficiency anemia, unspecified iron deficiency anemia type Expected: 04/07/2025 (Approximate), Expires: 01/05/2026 [facility] Service Area Work Phone: Comment on above: Expected: 04/07/2025 (Approximate), Expires: 01/05/2026 Start: 04-07-2025 End: 01-05-2026 Ferritin [Mass/volume] in Serum or Plasma Ferritin Lab Routine Iron deficiency anemia, unspecified iron deficiency anemia type Expected: 04/07/2025 (Approximate), Expires: 01/05/2026 [facility] Work Phone: Comment on above: Expected: 04/07/2025 (Approximate), Expires: 01/05/2026 Start: 04-07-2025 End: 01-05-2026 Iron and Iron binding capacity panel - Serum or Plasma Iron and TIBC Lab Routine Iron deficiency anemia, unspecified iron deficiency anemia type Expected: 04/07/2025 (Approximate), Expires: 01/05/2026 [facility] Work Phone: Comment on above: Expected: 04/07/2025 (Approximate), Expires: 01/05/2026 Start: 04-06-2025 Ambulation without limitation [facility] Start: 04-06-2025 Medical regimen orde rs management [facility] Start: 04-06-2025 Medication education [facility] Start: 04-06-2025 Patient discharge [facility] Start: 04-06-2025 Procedure discontinued [facility] Start: 04-06-2025 Taking patient vital signs [facility] Start: 04-06-2025 Vital signs measurements [facility] Start: 04-06-2025 [facility] Start: 04-06-[address] [facility] Start: 04-06-2025 Hemoglobin A1c/Hemoglobin.total in Blood [facility] Start: 04-05-2025 Bacteria identified in Urine by Culture Urine Culture [facility] Start: 04-05-2025 [facility] Start: 02-25-2025 Thyroid stimulating hormone measurement TSH Level [facility] Start: 01-05-2025 End: 01-05-2025 Patient encounter procedure 01/05/2025 2:40 PM EDT Office Visit [facility] [address] [place] [id number] Chrystal Alamo PA-C [address] [place] [address] [facility] Start: 01-05-2025 End: 01-05-2026 XR Shoulder - right 2 Views XR shoulder right 2+ views Imaging Routine Acute pain of right shoulder Expected: 01/05/2025, Expires: 01/05/2026 [facility] Work Phone: Comment on above: Expected: 01/05/2025 , Expires: 01/05/2026 Start: 01-05-2025 End: 01-05-2026 XR Thoracic spine 2 Views XR thoracic spine 2 views Imaging Routine Acute right-sided thoracic back pain Expected: 01/05/2025, Expires: 01/05/2026 [facility] Work Phone: Comment on above: Expected: 01/05/2025 , Expires: 01/05/2026 Start: 11-24-2024 End: 11-24-2025 CBC W Auto Differential panel - Blood CBC and Auto Differential Lab Routine Iron deficiency anemia, unspecified iron deficiency anemia type Diet controlled gestational diabetes mellitus (GDM) in third trimester ([facility]) Expected: 11/24/2024 (Approximate), Expires: 11/24/2025 [facility] Service Area Work Phone: Comment on above: Expected: 11/24/2024 (Approximate), Expires: 11/24/2025 Start: 11-24-2024 End: 11-24-2025 Cobalamin (Vitamin B12) [Mass/volume] in Serum or Plasma Vitamin B12 Lab Routine Iron deficiency anemia, unspecified iron deficiency anemia type Diet controlled gestational diabetes mellitus (GDM) in third trimester ([facility]) Expected: 11/24/2024 (Approximate), Expires: 11/24/2025 [facility] Work Phone: Comment on above: Expected: 11/24/2024 (Approximate), Expires: 11/24/2025 Start: 11-24-2024 End: 11-24-2025 Comprehensive metabolic 2000 panel - Serum or Plasma Comprehensive Metabolic Panel Lab Routine Iron deficiency anemia, unspecified iron deficiency anemia type Diet controlled gestational diabetes mellitus (GDM) in third trimester ([facility]) Expected: 11/24/2024 (Approximate), Expires: 11/24/2025 [facility] Work Phone: Comment on above: Expected: 11/24/2024 (Approximate), Expires: 11/24/2025 Start: 11-24-2024 End: 11-24-2025 Ferritin [Mass/volume] in Serum or Plasma Ferritin Lab Routine Iron deficiency anemia, unspecified iron deficiency anemia type Diet controlled gestational diabetes mellitus (GDM) in third trimester ([facility]) Expected: 11/24/2024 (Approximate), Expires: 11/24/2025 [facility] Work Phone: Comment on above: Expected: 11/24/2024 (Approximate), Expires: 11/24/2025 Start: 11-24-2024 End: 11-24-2025 Hemoglobin A1c/Hemoglobin.total in Blood Hemoglobin A1C Lab Routine Iron deficiency anemia, unspecified iron deficiency anemia type Diet controlled gestational diabetes mellitus (GDM) in third trimester ([facility]) Expected: 11/24/2024 (Approximate), Expires: 11/24/2025 [facility] Work Phone: Comment on above: Expected: 11/24/2024 (Approximate), Expires: 11/24/2025 Start: 11-24-2024 End: 11-24-2025 Iron and Iron binding capacity panel - Serum or Plasma Iron and TIBC Lab Routine Iron deficiency anemia, unspecified iron deficiency anemia type Diet controlled gestational diabetes mellitus (GDM) in third trimester ([facility]) Expected: 11/24/2024 (Approximate), Expires: 11/24/2025 [facility] Work Phone: Comment on above: Expected: 11/24/2024 (Approximate), Expires: 11/24/2025 Start: 11-24-2024 End: 11-24-2025 Magnesium [Mass/volume] in Serum or Plasma Magnesium Lab Routine Iron deficiency anemia, unspecified iron deficiency anemia type Diet controlled gestational diabetes mellitus (GDM) in third trimester ([facility]) Expected: 11/24/2024 (Approximate), Expires: 11/24/2025 [facility] Work Phone: Comment on above: Expected: 11/24/2024 (Approximate), Expires: 11/24/2025 Start: 11-24-2024 End: 11-24-2025 Thyrotropin [Units/volume] in Serum or Plasma Thyroid Stimulating Hormone Lab Routine Sivan's thyroiditis Iron deficiency anemia, unspecified iron deficiency anemia type Diet controlled gestational diabetes mellitus (GDM) in third trimester ([facility]) Expected: 11/24/2024 (Approximate), Expires: 11/24/2025 [facility] Work Phone: Comment on above: Expected: 11/24/2024 (Approximate), Expires: 11/24/2025 Start: 11-24-2024 End: 11-24-2025 Thyroxine (T4) free [Mass/volume] in Serum or Plasma Thyroxine, Free Lab Routine Sivan's thyroiditis Iron deficiency anemia, unspecified iron deficiency anemia type Diet controlled gestational diabetes mellitus (GDM) in third trimester ([facility]) Expected: 11/24/2024 (Approximate), Expires: 11/24/2025 [facility] Work Phone: Comment on above: Expected: 11/24/2024 (Approximate), Expires: 11/24/2025 Start: 11-24-2024 End: 11-24-2025 XR Ankle - left 2 Views XR ankle left 2 views Imaging Routine Acute left ankle pain Expected: 11/24/2024, Expires: 11/24/2025 [facility] Work Phone: Comment on above: Expected: 11/24/2024 , Expires: 11/24/2025 Start: 11-24-2024 End: 11-24-2025 XR Calcaneus - left 2 Views XR calcaneus left 2 views Imaging Routine Pain of left heel Expected: 11/24/2024, Expires: 11/24/2025 [facility] Work Phone: Comment on above: Expected: 11/24/2024 , Expires: 11/24/2025 Start: 06-14-2024 COVID-19 Vaccine ( season) COVID-19 Vaccine ( season) [facility] Start: 06-14-2024 Influenza vaccination Influenza Vacc ine (#1) [facility] Start: 05-01-2024 Screening for malign ant neoplasm of cervix [facility] Start: 04-27-2024 End: 04-27-2024 Patient encounter procedure 04/27/2024 2:00 PM EDT Office Visit [facility] [address] [place] [id number] Chrystal Alamo PA-C [address] [place] [id number] [facility] Start: 12-18-2023 Vital signs measurements [facility] Start: 12-18-2023 [facility] Start: 12-18-2023 Patient discharge [facility] Start: 12-14-2023 Patient discharge [facility] Start: 12-13-2023 Administration of bl ood product [facility] Start: 12-13-2023 Administration of medication [facility] Start: 12-13-2023 Application of ice collar, cap or bag [facility] Start: 12-13-2023 Catheterization of vein [facility] Start: 12-13-2023 Introduction of urin anthony catheter [facility] Start: 12-13-2023 Measuring intake and output [facility] Start: 12-13-2023 Procedure discontinued [facility] Start: 12-13-2023 Provision of activit y privileges [facility] Start: 12-13-2023 Vital signs measurements [facility] Start: 12-13-2023 End: 12-13-2023 [facility] Start: 12-13-2023 Documentation procedure [facility] Start: 12-13-2023 End: 12-13-2023 Notification of physician [facility] Start: 12-12-2023 Admission procedure [facility] Start: 11-27-2023 Nonstress test [facility] Start: 11-27-2023 Obstetric monitoring [facility] Start: 11-27-2023 Vital signs measurements [facility] Start: 11-27-2023 [facility] Start: 11-27-2023 Iv infusion hydratio n initial 31 min-1 hour HYDRATION IV INFUSION [facility] Start: 11-27-2023 Patient discharge [facility] Start: 10-18-2023 Iv infusion therapy prophylaxis/dx ea hour THER/PROPH/DIAG IV INF ADDON [facility] Start: 10-18-2023 Iv infusion therapy/prophylaxis /dx 1st to 1 hr THER/PROPH/DIAG IV INF [facility] Start: 10-16-2023 [facility] Start: 06-14-2023 Influenza vaccination [facility] Start: 04-11-2023 End: 04-11-2023 Patient encounter procedure 04/11/2023 9:40 AM EDT Office Visit [facility] [address] [place] [phone] Chrystal Alamo PA-C [address] [place] [address] [facility] Start: 03-20-2023 End: 03-20-2024 CBC W Auto Differential panel - Blood CBC and Auto Differential Lab Routine Iron deficiency anemia, unspecified iron deficiency anemia type Expected: 03/20/2023 (Approximate), Expires: 03/20/2024 [facility] Service Area Work Phone: Comment on above: Expected: 03/20/2023 (Approximate), Expires: 03/20/2024 Start: 03-20-2023 End: 03-20-2024 Ferritin [Mass/volume] in Serum or Plasma Ferritin Lab Routine Iron deficiency anemia, unspecified iron deficiency anemia type Expected: 03/20/2023 (Approximate), Expires: 03/20/2024 [facility] Work Phone: Comment on above: Expected: 03/20/2023 (Approximate), Expires: 03/20/2024 Start: 03-20-2023 End: 03-20-2024 Iron and Iron binding capacity panel - Serum or Plasma Iron and TIBC Lab Routine Iron deficiency anemia, unspecified iron deficiency anemia type Expected: 03/20/2023 (Approximate), Expires: 03/20/2024 [facility] Work Phone: Comment on above: Expected: 03/20/2023 (Approximate), Expires: 03/20/2024 Start: 03-20-2023 End: 03-20-2024 Thyrotropin [Units/volume] in Serum or Plasma Thyroid Stimulating Hormone Lab Routine Sivan's thyroiditis Expected: 03/20/2023 (Approximate), Expires: 03/20/2024 [facility] Work Phone: Comment on above: Expected: 03/20/2023 (Approximate), Expires: 03/20/2024 Start: 03-20-2023 End: 03-20-2024 Thyroxine (T4) free [Mass/volume] in Serum or Plasma Thyroxine, Free Lab Routine Sivan's thyroiditis Expected: 03/20/2023 (Approximate), Expires: 03/20/2024 [facility] Work Phone: Comment on above: Expected: 03/20/2023 (Approximate), Expires: 03/20/2024 Start: 03-20-2023 End: 03-20-2024 Triiodothyronine (T3) Free [Mass/volume] in Serum or Plasma Triiodothyronine, Free Lab Routine Sivan's thyroiditis Expected: 03/20/2023 (Approximate), Expires: 03/20/2024 [facility] Work Phone: Comment on above: Expected: 03/20/2023 (Approximate), Expires: 03/20/2024 Start: 03-14-2023 End: 03-14-2024 CBC W Auto Differential panel - Blood CBC and Auto Differential Lab Routine Low thyroid stimulating hormone (TSH) level Iron deficiency anemia, unspecified iron deficiency anemia type Expected: 03/14/2023 (Approximate), Expires: 03/14/2024 [facility] Service Area Work Phone: Comment on above: Expected: 03/14/2023 (Approximate), Expires: 03/14/2024 Start: 03-14-2023 End: 03-14-2024 Cobalamin (Vitamin B12) [Mass/volume] in Serum or Plasma Vitamin B12 Lab Routine Low thyroid stimulating hormone (TSH) level Iron deficiency anemia, unspecified iron deficiency anemia type Expected: 03/14/2023 (Approximate), Expires: 03/14/2024 [facility] Work Phone: Comment on above: Expected: 03/14/2023 (Approximate), Expires: 03/14/2024 Start: 03-14-2023 End: 03-14-2024 Comprehensive metabolic 2000 panel - Serum or Plasma Comprehensive Metabolic Panel Lab Routine Low thyroid stimulating hormone (TSH) level Iron deficiency anemia, unspecified iron deficiency anemia type Expected: 03/14/2023 (Approximate), Expires: 03/14/2024 [facility] Work Phone: Comment on above: Expected: 03/14/2023 (Approximate), Expires: 03/14/2024 Start: 03-14-2023 End: 03-14-2024 Ferritin [Mass/volume] in Serum or Plasma Ferritin Lab Routine Low thyroid stimulating hormone (TSH) level Iron deficiency anemia, unspecified iron deficiency anemia type Expected: 03/14/2023 (Approximate), Expires: 03/14/2024 [facility] Work Phone: Comment on above: Expected: 03/14/2023 (Approximate), Expires: 03/14/2024 Start: 03-14-2023 End: 03-14-2024 Folate [Mass/volume] in Serum or Plasma Folate Lab Routine Low thyroid stimulating hormone (TSH) level Iron deficiency anemia, unspecified iron deficiency anemia type Expected: 03/14/2023 (Approximate), Expires: 03/14/2024 [facility] Work Phone: Comment on above: Expected: 03/14/2023 (Approximate), Expires: 03/14/2024 Start: 03-14-2023 End: 03-14-2024 Hemoglobin A1c/Hemoglobin.total in Blood Hemoglobin A1C Lab Routine Low thyroid stimulating hormone (TSH) level Iron deficiency anemia, unspecified iron deficiency anemia type Expected: 03/14/2023 (Approximate), Expires: 03/14/2024 [facility] Work Phone: Comment on above: Expected: 03/14/2023 (Approximate), Expires: 03/14/2024 Start: 03-14-2023 End: 03-14-2024 Iron and Iron binding capacity panel - Serum or Plasma Iron and TIBC Lab Routine Low thyroid stimulating hormone (TSH) level Iron deficiency anemia, unspecified iron deficiency anemia type Expected: 03/14/2023 (Approximate), Expires: 03/14/2024 [facility] Work Phone: Comment on above: Expected: 03/14/2023 (Approximate), Expires: 03/14/2024 Start: 03-14-2023 End: 03-14-2024 Lipid 1996 panel - Serum or Plasma Lipid Panel Lab Routine Low thyroid stimulating hormone (TSH) level Iron deficiency anemia, unspecified iron deficiency anemia type Expected: 03/14/2023 (Approximate), Expires: 03/14/2024 [facility] Work Phone: Comment on above: Expected: 03/14/2023 (Approximate), Expires: 03/14/2024 Start: 03-14-2023 End: 03-14-2024 Thyrotropin [Units/volume] in Serum or Plasma Thyroid Stimulating Hormone Lab Routine Low thyroid stimulating hormone (TSH) level Iron deficiency anemia, unspecified iron deficiency anemia type Expected: 03/14/2023 (Approximate), Expires: 03/14/2024 [facility] Work Phone: Comment on above: Expected: 03/14/2023 (Approximate), Expires: 03/14/2024 Start: 03-14-2023 End: 03-14-2024 Thyroxine (T4) free [Mass/volume] in Serum or Plasma Thyroxine, Free Lab Routine Low thyroid stimulating hormone (TSH) level Iron deficiency anemia, unspecified iron deficiency anemia type Expected: 03/14/2023 (Approximate), Expires: 03/14/2024 [facility] Work Phone: Comment on above: Expected: 03/14/2023 (Approximate), Expires: 03/14/2024 Start: 03-14-2023 End: 03-14-2024 Triiodothyronine (T3) Free [Mass/volume] in Serum or Plasma Triiodothyronine, Free Lab Routine Low thyroid stimulating hormone (TSH) level Iron deficiency anemia, unspecified iron deficiency anemia type Expected: 03/14/2023 (Approximate), Expires: 03/14/2024 [facility] Work Phone: Comment on above: Expected: 03/14/2023 (Approximate), Expires: 03/14/2024 Start: 10-17-2022 FUV, Provider: Chrystal Alamo, Status: Pen, Time: 10:40 AM FUV, Provider: Chrystal Alamo, Status: Pen, Time: 10:40 AM [facility] Work Phone: Start: 04-25-2022 FUV, Provider: Chrystal Alamo, Status: Pen, Time: 1:00 PM FUV, Provider: Chrystal Alamo, Status: Pen, Time: 1:00 PM [facility] Work Phone: Start: 03-20-2022 FUV, Provider: Chrystal Alamo, Status: Pen, Time: 12:40 PM FUV, Provider: Chrystal Alamo, Status: Pen, Time: 12:40 PM [facility] Work Phone: Start: 02-13-2022 FUV, Provider: Chrystal Alamo, Status: Pen, Time: 1:00 PM FUV, Provider: Chrystal Alamo, Status: Pen, Time: 1:00 PM [facility] Work Phone: Start: 01-23-2022 PFT, Provider: RONNY MCKEON PFT ROOM,[id number], Status: Pen, Time: 9:00 AM PFT, Provider: CLAUS PFT ROOM,[id number], Status: Pen, Time: 9:00 AM [facility] Work Phone: Start: 01-12-2022 FUV, Provider: Kayleigh Chawla, Status: Pen, Time: 1:00 PM FUV, Provider: Kayleigh Chawla, Status: Pen, Time: 1:00 PM [facility] Work Phone: Start: 12-19-2021 Patient encounter procedure Eva Samano Start: 12-19-2021 PPV, Provider: Paulino Christian, Status: Pen, Time: 1:30 PM PPV, Provider: Paulino Christian, Status: Pen, Time: 1:[address] Work Phone: Start: 11-08-2021 End: 11-08-2022 [facility] Comment on above: Consult provider jose enrique or to administration. Push over more than 2 minutes. Systolic greater than or equal to 160 OR Diastolic greater than or equal to 110. Contraindications: active asthma, heart disease, heart failure, maternal bradycardia < 60. Consult provider jose enrique or to administration. Push over more than 2 minutes. Systolic greater than or equal to 160 OR Diastolic greater than or equal to 110. Contraindication: coronary artery disease (CAD); Caution in suspected CAD. Consult provider jose enrique or to administration. Systolic greater than or equal to 160 OR Diastolic greater than or equal to 110. Capsules administered orally and swallowed whole; Do not puncture or crush; Do not administer sublingually. May self-administer after voiding administer if patien t screen is non- immune or equivocal Before Discharge Consult provider jose enrique or to administration. Conditional order. C onsult Provider prior to administration. Max dose of 16mg / 2 4 hours Conditional order. 6 00 milliunits/min x 30 mins., then 60 milliunits/min for the remainder of the bag. Consult Provider prior to administration. Start: 11-07-2021 EPVOB, Provider: Paulino Christian, Status: Pen, Time: 2:30 PM EPVOB, Provider: Paulino Christian, Status: Pen, Time: 2:30 PM [employer] Work Phone: Start: 10-31-2021 EPVOB, Provider: Paulino Christian, Status: Pen, Time: 2:30 PM EPVOB, Provider: Paulino Christian, Status: Pen, Time: 2:30 PM [employer] Work Phone: Start: 10-24-2021 EPVOB, Provider: Paulino Christian, Status: Pen, Time: 2:00 PM EPVOB, Provider: Paulino Christian, Status: Pen, Time: 2:00 PM [employer] Work Phone: Start: 10-19-2021 ULTRASDFUV, Provider : OB TEAGAN,MGOBGYN, Status: Pen, Time: 2:00 PM ULTRASDFUV, Provider: OB PARK3,MGOBGYN, Status: Pen, Time: 2:00 PM [facility] Work Phone: Start: 10-03-2021 EPVOB, Provider: Paulino Christian, Status: Pen, Time: 2:45 PM EPVOB, Provider: Paulino Christian, Status: Pen, Time: 2:45 PM [employer] Work Phone: Start: 09-18-2021 EPVOB, Provider: Paulino Christian, Status: Pen, Time: 3:30 PM EPVOB, Provider: Paulino Christian, Status: Pen, Time: 3:30 PM [employer] Work Phone: Start: 09-05-2021 EPVOB, Provider: Paulino Christian, Status: Pen, Time: 8:30 AM EPVOB, Provider: Paulino Christian, Status: Pen, Time: 8:30 AM [employer] Work Phone: Start: 08-21-2021 EPVOB, Provider: Paulino Christian, Status: Pen, Time: 10:15 AM EPVOB, Provider: Paulino Christian, Status: Pen, Time: 10:15 AM [employer] Work Phone: Start: 07-24-2021 EPVOB, Provider: Paulino Christian, Status: Pen, Time: 3:45 PM EPVOB, Provider: Paulino Christian, Status: Pen, Time: 3:45 PM [employer] Work Phone: Start: 06-26-2021 EPVOB, Provider: Paulino Christian, Status: Pen, Time: 2:45 PM EPVOB, Provider: Paulino Christian, Status: Pen, Time: 2:45 PM [employer] Work Phone: Start: 06-26-2021 Patient encounter procedure [facility] Start: 05-29-2021 EPVOB, Provider: Paulino Christian, Status: Pen, Time: 3:15 PM EPVOB, Provider: Paulino Christian, Status: Pen, Time: 3:15 PM [facility] [employer] Work Phone: Start: 05-01-2021 EPVOB, Provider: Paulino Christian, Status: Pen, Time: 3:00 PM EPVOB, Provider: Paulino Christian, Status: Pen, Time: 3:00 PM [facility] Work Phone: Start: 04-25-2021 NPV, Provider: Rochelle Boyer, Status: Pen, Time: 9:00 AM NPV, Provider: Rochelle Boyer, Status: Pen, Time: 9:00 AM [facility] [employer] Work Phone: Start: 04-24-2021 FUV, Provider: Chrystal Alamo, Status: Pen, Time: 9:40 AM FUV, Provider: Chrystal Aalmo, Status: Pen, Time: 9:40 AM [facility] Work Phone: Start: 2021 Screening for malign ant neoplasm of cervix [facility] Start: 04-03-2021 EPVOB, Provider: Velasquez Ewing, Status: Pen, Time: 2:45 PM EPVOB, Provider: Velasquez Ewing, Status: Pen, Time: 2:45 PM [facility] Work Phone: Start: 09-01-2020 Varicella vaccination Varicell a Vaccines (1 of 2 - 13+ 2-dose series) [facility] Start: 08-31-2020 Varicella vaccination Varicell a Vaccines (1 of 2 - 2-dose childhood series) [facility] Start: 06-14-2020 Influenza vaccination INFLUENZA VACC INE (#1) [facility] Start: 2019 Pneumococcal Vaccine : Pediatrics and At-Risk Adult Patients (1 of 2 - PCV) Pneumococcal Vaccine: Pediatrics and At-Risk Adult Patients (1 of 2 - PCV) [facility] Start: 2019 Third diphtheria, te tanus and acellular pertussis (DTaP) vaccination TDAP (ADULT) [facility] Start: 2018 Tetanus vaccination TETANUS [facility] Start: 2016 Screening for Chlamy shaquille trachomatis CHLAMYDIA SCREEN [facility] Start: 2015 HPV Vaccines (1 - 3- dose series) HPV Vaccines (1 - 3-dose series) [facility] Start: 2013 HIV screening HIV SCREENING DISCUSSION [facility] Start: 2011 HPV Vaccines (1 - 2- dose series) HPV Vaccines (1 - 2-dose series) [facility] Start: 2011 Vaccination for andressa n papillomavirus HPV VACCINE ADOL (1 - 2-dose series) [facility] Start: 2006 Pneumococcal Vaccine : Pediatrics (0 to 5 Years) and At-Risk Patients (6 to 64 Years) (1 - PCV) Pneumococcal Vaccine: Pediatrics (0 to 5 Years) and At-Risk Patients (6 to 64 Years) (1 - PCV) [facility] Start: 2006 Pneumococcal Vaccine : Pediatrics (0 to 5 Years) and At-Risk Patients (6 to 64 Years) (1 of 2 - PCV) Pneumococcal Vaccine: Pediatrics (0 to 5 Years) and At-Risk Patients (6 to 64 Years) (1 of 2 - PCV) [facility] Start: 2004 IPV Vaccines (4 of 4 - 4-dose series) IPV Vaccines (4 of 4 - 4-dose series) [facility] Start: 2000 COVID-19 Vaccine (#1) COVID-19 Vacci ne (#1) [facility] Start: 2000 GONORRHEA SCREEN GONORRHEA SCREEN Av [facility] Start: 2000 Hepatitis C antibody , confirmatory test HEPATITIS C VIRUS SCREENING [facility] Start: 2000 Yearly Adult Physical Yearly Adult P hysical [facility] Anti-D (Rh) immunoglobulin [facility] Bacteria identified in Urine by Culture Urine Culture Microbiology Routine Dysuria 08/06/2024 5:03 PM EDT [facility] Service Area Work Phone: CBC W Auto Different ial panel - Blood [facility] CBC W Auto Different ial panel - Blood [facility] Celiac disease screen [facility] Cobalamin (Vitamin B 12) [Mass/volume] in Serum or Plasma [facility] Drugs identified in Urine by Screen method [facility] Ferritin [Mass/volum e] in Serum or Plasma [facility] Hemoglobin A1c/Hemoglobin.total in Blood [facility] IgA [Mass/volume] in Serum or Plasma [facility] Iron and Iron bindin g capacity panel - Serum or Plasma [facility] Patient Education [facility] Work Phone: Patient referral [facility] Work Phone: Procedure [facility] End: 10-31-2020 Standard ECG ECG ECG STAT One Time for 1 Occurrences starting 10/31/2020 until 10/31/2020 [employer] Comment on above: One Time for 1 Occur rences starting 10/31/2020 until 10/31/2020 Streptococcus agalac tiae [Presence] in Unspecified specimen by Organism specific culture [facility] T4 free measurement [facility] T4 free measurement [facility] T4 free measurement [facility] Thyroid stimulating hormone measurement [facility] Thyroid stimulating hormone measurement [facility] Thyroid stimulating hormone measurement [facility] Tissue transglutamin ase IgA Ab [Units/volume] in Serum [facility] Ultrasound scan for growth [facility] Urine culture [facility] Vitamin D, 25-hydrox y measurement [facility] Work Phone: [facility] NEGATED: Highlighted row has been ruled out! Planned Goals not documented [facility] Work Phone: Immunizations Immunization Date Immunization Notes Care Provider Sofi toro 08-22-2021 tetanus toxoid, reduced diphtheria toxoid, and acellular pertussis vaccine, adsorbed Chrystal Alamo Work Phone: [address] Work Phone: 08-04-2020 hepatitis B vaccine, pediatric or pediatric/adolescent dosage Alexa Beyer [facility] Work Phone: Comment on above: Series: 08-04-2020 measles, mumps and rubella virus vaccine Alexa Beyer [facility] Work Phone: Comment on above: Series: 08-04-2020 tetanus toxoid, reduced diphtheria toxoid, and acellular pertussis vaccine, adsorbed Alexa Beyer [facility] Work Phone: Comment on above: Series: 08-03-2020 hepatitis B vaccine, adult dosage Alexa Bhupinder 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 Work Phone: [facility] Work Phone: 08-03-2020 measles, mumps and rubella virus vaccine Alexa Bhupinder [employer] 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 Work Phone: [facility] 08-03-2020 tetanus toxoid, reduced diphtheria toxoid, and acellular pertussis vaccine, adsorbed Alexa Lancaster [employer] 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 Work Phone: [facility] Work Phone: 07-14-2020 influenza, seasonal, injectable Chrystal Edu WrightCally Work Phone: [address] Work Phone: Comment on above: Series: 07-14-2020 influenza virus vaccine, unspecified formulation Alexa Lancaster [employer]ATIONAL 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 Work Phone: [facility] Work Phone: 03-25-2002 diphtheria, tetanus toxoids and acellular pertussis vaccine Chrystal Edu Cally Work Phone: [address] Work Phone: 03-25-2002 measles, mumps and rubella virus vaccine Chrystal B Cally Work Phone: [address] Work Phone: 04-30-2001 haemophilus influenz ae type b conjugate and Hepatitis B vaccine Chrystal B Cally Work Phone: [address] Work Phone: 04-30-2001 measles, mumps and rubella virus vaccine Chrystal B Cally Work Phone: [address] Work Phone: 04-30-2001 pneumococcal conjuga te vaccine, 7 valent Chrystal B Schlater Work Phone: [address] Work Phone: 2000 diphtheria, tetanus toxoids and acellular pertussis vaccine, unspecified formulation Chrystal B Cally Work Phone: [address] Work Phone: 2000 pneumococcal conjuga te vaccine, 7 valent Chrystal B Cally Work Phone: [address] Work Phone: 2000 poliovirus vaccine, inactivated Chrystal B Schlater Work Phone: [address] Work Phone: 2000 poliovirus vaccine, unspecified formulation Roe Allan PA-C Work Phone: [facility] Work Phone: 2000 diphtheria, tetanus toxoids and acellular pertussis vaccine, unspecified formulation Chrystal B Schlater Work Phone: [address] Work Phone: 2000 haemophilus influenz ae type b conjugate and Hepatitis B vaccine Chrystal B Cally Work Phone: [address] Work Phone: 2000 poliovirus vaccine, inactivated Chrystal B Cally Work Phone: [address] Work Phone: 2000 diphtheria, tetanus toxoids and acellular pertussis vaccine, unspecified formulation Chrystal B Schlater Work Phone: [address] Work Phone: 2000 haemophilus influenz ae type b conjugate and Hepatitis B vaccine Chrystal Alamo Work Phone: [address] Work Phone: 2000 poliovirus vaccine, inactivated Chrystal Alamo Work Phone: [address] Work Phone: Payers Date Payer Category Payer Self-pay [id number] 2021 Medicaid (Managed Care) 1.2. [id number] 2021 Unknown [id number] 2021 Unknown [id number] 2021 Managed Care (Private) 1.2.8 [id number] 2021 Unknown [id number] 2021 Unknown [id number] 2019 Unknown 2000 Unknown [id number] 2.16.84 0.1.092777.3.579.2.598 2000 Unknown [id number] 2.16. 840.1.695504.3.579.2.356 2000 Unknown [id number] 2.16. 840.1.631317.3.579.2.356 2000 Unknown [id number] 2.16. 840.1.689274.3.579.2.356 2000 Unknown [id number] 2.16. 840.1.148861.3.579.2.356 2000 Unknown [id number] 2.16. 840.1.222456.3.579.2.356 2000 Unknown [id number] 2.16. 840.1.551954.3.579.2.356 2000 Unknown [id number] 2.16. 840.1.676648.3.579.2.356 2000 Unknown [id number] 2.16.8 40.1.749462.3.579.2.1069 2000 Unknown [id number] 2.16.8 40.1.420041.3.579.2.1245 2000 Unknown [id number] 2.16.84 0.1.167129.3.579.2.1245 2000 Unknown [id number] 2.16.84 0.1.862882.3.579.2.1245 2000 Unknown [id number] 2.16.84 0.1.750880.3.579.2.1245 2000 Unknown [id number] 2.16.8 40.1.110733.3.579.2.1243 2000 Unknown [id number] 2.16. 840.1.771074.3.579.2.902 2000 Unknown [id number] 2.16. 840.1.015887.3.579.2.1244 2000 Unknown [id number] 2.16. 840.1.262006.3.579.2.1244 1959 Unknown [id number] Unknown ANTHEM [id number] Unknown [id number] 2.16.8 40.1.293225.3.579.2.462 Unknown [id number] 2.16.8 40.1.004244.3.579.2.462 Unknown [id number] 2.16.8 40.1.162618.3.579.2.462 Unknown [id number] 2.16.8 40.1.441243.3.579.2.462 Unknown [id number] 2.16.8 40.1.029209.3.579.2.462 Unknown [id number] 2.16.8 40.1.923771.3.579.2.462 Unknown [id number] 2.16.8 40.1.959177.3.579.2.462 Unknown [id number] 2.16.8 40.1.150447.3.579.2.462 Unknown [id number] 2.16.8 40.1.938642.3.579.2.462 Unknown [id number] 2.16.8 40.1.963604.3.579.2.462 Unknown [id number] 2.16.8 40.1.635022.3.579.2.462 Unknown [id number] 2.16.8 40.1.670201.3.579.2.462 Social History Date Type Detail Facility Start: 10-31-2020 Tobacco smoking status NCIS Current some day smoker [facility] Start: 10-31-2020 End: 01-30-2023 Tobacco use and exposure Never used [facility] Start: 10-31-2020 End: 01-05-2025 Alcohol intake Current drinker of alcohol (finding) [facility] Start: 10-31-2020 [facility] Start: 10-31-2020 Alcohol Comment occasional [facility] Start: 2000 Sex Assigned At Not on file [facility] Start: 03-04-2023 End: 01-05-2025 Exposure to SARS-CoV-2 (event) Not sure [facility] Start: 02-08-2023 End: 01-05-2025 [employer] [facility] 35 [employer] Work Phone: Comment on above: Vape pen, quit on ; Start: 05-27-2023 End: 12-12-2023 Tobacco smoking consumption unknown [facility] Start: 01-30-2023 End: 04-05-2025 Tobacco smoking status NHIS Ex-smoker [facility] Work Phone: History of tobacco use Current smoker [facility] Work Phone: History of tobacco use Cigarette Smoker [facility] Work Phone: Start: 02-08-2023 End: 01-05-2025 Tobacco use panel [facility] Work Phone: Start: 01-29-2023 End: 02-08-2023 Exposure to SARS-CoV-2 (event) Unable to assess [facility] Start: 2000 Sex Assigned At Female [facility] Start: 10-18-2023 Alcohol intake Ex-drinker (finding) [facility] Work Phone: Start: 11-24-2024 Alcohol Comment rare [facility] Work Phone: Start: 01-01-2025 End: 01-03-2025 Sex Female (finding) [facility] NEGATED: Highlighted row - - [facility] Work Phone: NEGATED: Highlighted row Not [facility] Medical Equipment Procedure Code Equipment Code Equipment Origin al Text Equipment Identifier Dates Blood Sugar Diagnostic (Blood Glucose Test) strip Start: 10-25-2023 Lancets Start: 10-25-2023 Blood Sugar Diagnostic (Blood Glucose Test) strip Start: 10-25-2023 Lancets Start: 10-25-2023 Blood Sugar Diagnostic (Blood Glucose Test) strip Start: 10-25-2023 Lancets Start: 10-25-2023 Blood Sugar Diagnostic (Blood Glucose Test) strip Start: 10-25-2023 Lancets Start: 10-25-2023 Blood Sugar Diagnostic (Blood Glucose Test) strip Start: 10-25-2023 Lancets Start: 10-25-2023 Blood Sugar Diagnostic (Blood Glucose Test) strip Start: 10-25-2023 Lancets Start: 10-25-2023 Blood Sugar Diagnostic (Blood Glucose Test) strip Start: 10-25-2023 End: 12-22-2024 Lancets misc Start: 10-25-2023 End: 12-22-2024 Blood Sugar Diagnostic (Blood Glucose Test) strip Start: 10-25-2023 End: 12-22-2024 Lancets misc Start: 10-25-2023 End: 12-22-2024 Blood Sugar Diagnostic (Blood Glucose Test) strip Start: 10-25-2023 End: 12-22-2024 Lancets misc Start: 10-25-2023 End: 12-22-2024 Blood Sugar Diagnostic (Blood Glucose Test) strip Start: 10-25-2023 End: 12-22-2024 Lancets misc Start: 10-25-2023 End: 12-22-2024 Blood Sugar Diagnostic (Blood Glucose Test) strip Start: 10-25-2023 End: 12-22-2024 Lancets misc Start: 10-25-2023 End: 12-22-2024 Blood Sugar Diagnostic (Blood Glucose Test) strip Start: 10-25-2023 End: 12-22-2024 Lancets misc Start: 10-25-2023 End: 12-22-2024 Goals Date Patient Goal Desired Activity /State Functional Status Date Assessment Result Facility Functional observable [facility] NEGATED: Highlighted row Functional performance Functional status health issues are not documented Disease [facility] Work Phone: Mental Status Date Assessment Result Facility 04-06-2025 Cognitive function Voice/Name [facility] Work Phone: 10-18-2023 Cognitive function Awake;Alert;A ppropriate ;Follows Commands [facility] Work Phone: 10-16-2023 Cognitive function Level Of Cons ciousness Awake;Alert;Appropriate ;Follows Commands [facility] Work Phone: 11-08-2021 Cognitive functi ons :44 [facility] NEGATED: Highlighted row Cognitive function [Interpretation] Cognitive status health issues are not documented Disease [facility] Work Phone: Clinical Notes 01-12-2021 to 04-06-2025 Note Date & Type Note Facility 04-06-2025 Consult note [facility] 04-06-2025 Consult note Note Date/Time April 06, 2025 5:29pm [facility] Medical Records Department [address] [place] [address] Anesthesia Postop Eval I 04/06/25 1505 MR#: [id number] Acct: [id number] Name: JOHNY TORRES Rep #:[id number] : 2000 24 From: Roe COSTELLO PCP: CURTIS Mena Status:REG SDC Y Race: C Location: [place] [address] Anesthesia: Postop Eval I Current Vital Signs Temperature: 97.6 F Pulse Rate: 71 Blood Pressure: 111/77 Respiratory Rate: 16 Pulse Ox: 98 Oxygen Delivery Method: Room Air Assessment Airway patent: Yes Spontaneous unlabored respirations: Yes Mental status: Awake and Calm nausea: No Vomiting: No Anesthesia Complication: No Fluid Hydration Crystalloid volume administer (ml): 500 Total IV fluid infused: 500 Progress Note Anesthesia document: Postop Eval 1 completed: Yes 04/06/25 4824 <Electronically signed by Roe Waller CRNA> Date _ Roe Waller CRNA Cosigner Signature: Date CC: ~ Signed [facility] Work Phone: 1(885) 886-581506-24-2025 Discharge summary Author Esme Baker [facility] Note Date/Time April 06, 2025 2:57 pm [facility] Medical Records Department [address] [place] [id number] Instructions for Home/Discharge Instructions 04/06/25 1443 MR#: [id number] Acct: [id number] Name: JOHNY TORRES Rep #:[id number] : 2000 24 From: Esme madrid MD PCP: CURTIS Mena Status:REG SDC Discharge Instructions Diet Discharge Diet: No restrictions DC O2, CPAP, BIPAP needs Home O2 Discharge instructions: No Dressing / Incision Discharge Activity: Return to Normal Activity, May Shower and May Take a Tub Bath (after 1 week) May resume sexual activity in: 1-2 weeks Weight Bearing Status: Weight bearing as tolerated Lifting Restrictions: none Dressing / Incision Call your doctor if you observe: Fever of 101 or Higher, Using more than 1 pad per hour, Shortness of breath and Uncontrolled pain Follow Up Care Please Follow Up With: Esme Baker MD When: Call [phone] to schedule appointment. Test Results: Test results from this visit will be discussed in further detail at your follow- up appointment, if applicable. Discharge Plan Admission Attending Provider: Esme Baker Primary Care Provider: Chrystal Alamo Instructions Print Language: Eritrean Discharge Orders/Prescriptions Prescriptions: No Action PNV-[place] 28-1-300 mg capsule 1 cap PO DAILY cholecalciferol (vitamin D3) 50 mcg (2,000 unit) capsule 50 mcg PO QDAY albuterol sulfate [Ventolin HFA] 90 mcg/actuation HFA aerosol inhaler 2 puff inhalation Q6H PRN (Reason: shortness of breath or wheezing) levothyroxine 50 mcg tablet 50 mcg PO QDAY Qty: 90 3RF Referrals / Follow Up: Chrystal Alamo PA [Primary Care Provider] - Disposition Disposition (needs filled in before D/C Order can be placed): Home, Self Care 04/06/25 6879<Electronically signed by Esme Baker MD>Esme Baker MD CC: CURTIS Mena ~ Signed [facility] Work Phone: 1(837) 741-780306-24-2025 History and physical note Author Esme Baker [facility] Note Date/Time April 06, 2025 1:54 pm [facility] Medical Records Department [address] [place] [address] History & Physical Exam 04/06/25 1157 MR#: [id number] Acct: [id number] Name: JOHNY TORRES Rep #:[id number] : 2000 24 From: Esme madrid MD PCP: CURTIS Mena Status:[facility] Location: [place] [address] History and Physical MR#: [id number] Acct: [id number] Name: JOHNY TORRES Rep #: [id number] : 2000 Provider: Dr. Brandi Freeman DO Age/Sex: 24/F Location: [facility] [place] Status: Signed Intake Vital Signs 12/22/2508:34 03/11/2508:03 04/05/2510:51 04/05/2510:53 Height 5 ft 3 in 5 ft 3 in 5 ft 3 in 5 ft 3 in Weight: 138 lb BMI 24.4 BP 121/79 H Intake Visit Reasons: *EST* NOB LMP 02/01, STARR 11/08 [employer] Required: No Is patient in pain?: No Allergies Latex, Natural Rubber Allergy (Mild, Verified 04/05/25 10:49) Itchinghydrocodone (From Vicodin) Allergy (Verified 04/05/25 10:49) otherhydromorphone (From Dilaudid) Adverse Reaction (Intermediate, Verified 04/05/25 10:49) passed out Medications ?Medication ?Instructions ?Recorded ?Confirmed ?Type multivit-min no.71-iron fum 28 1 cap PO DAILY 05/16/23 04/05/25 History mg-folate no.1 1 mg-dha 300 mg capsule (PNV-[place]) levothyroxine 50 mcg tablet 50 mcg PO QDAY #90 tabs 03/11/25 5 Rx albuterol sulfate 90 mcg/actuation 2 puff inhalation Q6H PRN 03/26/2504/05 History aerosol inhaler (Ventolin HFA) cholecalciferol (vitamin D3) 50 50 mcg PO QDAY 03/26/25 04/05/25 History mcg (2,000 unit) capsule Last Menstrual Period: 02/01/25 Zika: Zika virus screening: Negative : Yes PFSH PFSH Medical History H/O herpes genitalis Abnormal uterine bleeding 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 Autoimmune thyroiditis Vaginal delivery Oligohydramnios Gestational diabetes mellitus (GDM) affecting , antepartum Abnormal glucose affecting Shoulder dystocia during labor and delivery Rh negative status during Surgical History History of throat surgery History of tonsillectomy [place] teeth extracted Family History Grandmother Ovarian cancer, Onset Age: 70 Paternal great grandmother Colon cancer, Onset Age: 60 Paternal Social History adopted: No household members: spouse and children housing: house number of children: 2 current occupational status: unemployed current occupation: [employer] pets and animals: Yes pets and animals: dog(s) history of recent travel: No sexually active: Yes Smoking Status: Former smoker quit date: 03/15/21 pack-years: 4 Tobacco: How many years used: 2 Electronic Cigarette Use: with nicotine alcohol intake: current alcohol intake frequency: holidays/special occasions only details: not while substance use type: former substance user and marijuana well-balanced diet: daily or most days caffeine: No eating out: rarely or never during the past year weight has: decreased > 10 lbs what type of physical activity do you participate in: walking frequency: 1-2 times per week duration: 30-45 minutes/day stacey/taoism: Temple seatbelt use: always do you feel safe at home: Yes additional social history: Shawn Torres History 3 Elective abortions Hx Para 2 Spontaneous abortions Hx # Term Pregnancies Ectopic pregnancies Hx # Pregnancies Multiple births # of living children 2 Past Pregnancies Del. Date Name GA/Weeks Outcome Route Bth Weight Infant Gen Labor Lgth Anesthesia Del Locatn Provider FOB 11/07/21 Tye 39 live - full term 8#6oz Mal e epidural [facility] Dr. Jordon Escobar 12/17/23 Kate 37 live - full term 6lbs 14oz Female epidural [facility] Olivia Escobar Delivery Date: 11/07/21 Last Updated by: Esme Baker MD IOL- small pelvis, shoulder dystocia and clavicle fracture Delivery Date: 12/17/23 Last Updated by: Nicole Mehta IOL oligo [email or web address] HPI *EST* NOB LMP 02/01, STARR 11/08 Details: JOHNY TORRES is a 24 year old who presents for New OB visit, has not been feeling nauseated. wants to discuss possible celiac disease testing for chronic anemia. The anemia is refractory to oral iron therapy. OB Visit STARR Calculator Estimated Delivery Date Method Current WG Current Estimate 11/08/25 LMP (Certain) 9w 0d Comments: HIV: Urine Culture: Sequential Screen: NIPT Screen: Estimated Due Date: 11/08/25 Initial Weight: Not Recorded Date -?-?-?-?-?-?-?-?-?-?-?-?- EGA Weight BP Urine Prot -?-?-?-?-?-?-?-?-?-?-?-?- Glucose FHR FuHt Pres Dilation -?-?-?-?-?-?-?-?-?-?-?-?- Effaced St Visit Note 04/05/25-?-?-?-?-?-?-?-?-?-?-?-?- 9w 0d 138 lb 121/79 -?-?-?-?-?-?-?-?-?-?-?-?- -?-?-?-?-?-?-?-?-?-?-?-?- JV- no heart beat on ultrasound. CRL is measuring 9 weeks 1 day. Menstrual History Last Menstrual Period: 02/01/25 Reported LMP: definite Normal amount/duration: Yes Frequency in days: 23 On hormonal BC at conception: No hCG+: 02/25/25 Antepartum Record Genetic Screening: Congenital Heart Defect: Other, Neural Tube Defect: Other, Hemoglobinopathy Or Carrier: Other, Cystic Fibrosis: Other, Chromosome Abnormality: Other, Tommy-Sachs: Other, Hemophilia: Other, Intellectual Disability/Autism: Other, Recurrent Loss/Stillbirth: Other, Other Structural Defect: Other, Other Genetic Disease: Other and Maternal Metabolic Disorder: Patient (GDMA last ) Infection History: Live with someone with TB or Exposed to TB: No, Patient or Partner has history of Genital Herpes: Yes (Pt hx of herpes), Rash or Viral illness since last mentrual period: No, Prior GBS-Infected child: No, History ofSTD: No, HIV Infection: No, History of Hepatitis: No, Recent travel outside of [place]: No, Concern for hepatitis exposure: No, Varicella immune: Yes (immune-virus)and Covid Vaccinated: No Medical History Medical History: Positive: Diabetes (GDM-2nd ), Hypertension (GHTN -1stpregnancy), Auto-immune disorder (sivan's), Psychiatric (PP anxiety with 1stpregnancy, not second), Thyroid dysfunction (hypothyroidism), D (Rh) Sensitized (O-), Pulmonary (e.g.,TB,Asthma) (Asthma allergy induced), Drug/latex allergies/reactions (vicodin, dilaudid, latex), Operations/hospitalizations (throat, tonsillectomy, wisdom teeth), Relevant family history (See PFSH) and Other (chronic anemia, had iron infusion last with allergic reaction, migraine hx improved) and Negative: Heart disease, Kidney disease/UTI, Neurologic/epilepsy, Depression/ depression, Hepatitis/liver disease, Varicosities/phlebitis, Trauma/domestic violence, History of blood transfusions,Seasonal allergies, Breast, Machine Bander And Cellophaner surgery, Anesthetic complications, History of abnormal pap, Uterine anomaly/tana, Infertility and Anti-retroviral treatment ACOG First Trimester First Trimester: Desire for , Alcohol, Tobacco Cessation, Illicit/Recreational Drug/Substance Use, Intimate Partner Violence, Barriers to care, Unstable Housing, Communication Barriers, Environmental/Work Hazards, Anticipated Course of Care, Nurtrition and weight gain, Toxoplasmosis Precations, Use of Any medications, Sexual activity, Exercise, Dental Care, Sauna/Hot tub use, Seat Belt use, Childbirth classes/Hospital facilities, , Travel, Indications for Ultrasound and Screening for Aneuploidy Second Trimester Second Trimester: Signs and Symptoms of Labor, Selecting a care provider, Reproductive Life Planning & Contreception, Care Planning, Depression/Anxiety and Intimate Partner Violence; Discussed Tobacco Cessation Third Trimester Third Trimester: Pain Management Plans, Labor support person(s), Immediate Larc, Movement Monitoring, Signs and Symptoms of Preeclampsia and Education ROS Const All systems reviewed & are unremarkable except as noted in H Resp Reports system reviewed and no additional complaints, except as documented and Denies cough GI Reports as per HPI Psych Reports system reviewed and no additional complaints, except as documented Exam Const General: cooperative, healthy appearing, comfortable and no acute distress Resp Effort & Inspection: normal respiratory effort Skin General: no rashes or lesions noted Psych Appearance: grossly normal Speech and Movement: speech and movement normal Coding Level of Care Code Off vis,est,level 4 Diagnoses Rh negative state in antepartum period O26.899; Z67.91 Chronic anemia D64.9 Anxiety F41.9 History of gestational hypertension Z87.59 H/O herpes genitalis Z86.19 Hx of shoulder dystocia in prior , currently O09.299 Supervision of high-risk O09.90 History of marijuana use F12.91 History of gestational diabetes mellitus (GDM) Z86.32 37 weeks gestation of Z3A.37 Weeks of gestation: 37 weeks 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 Rectocele N81.6 Autoimmune thyroiditis E06.3 Migraine headache G43.909 Asthma J45.909 Missed O02.1 Assessment and Plan Assessment and Plan (1) Rh negative state in antepartum period: Status: Acute Comment: Rhogam @ 28wks (2) Chronic anemia: Status: Chronic Comment: Had reaction to iron infusions (3) Anxiety: Status: Acute Comment: H/O anxiety 1st (4) History of gestational hypertension: Status: Acute Comment: 1st (5) H/O herpes genitalis: Status: Acute Comment: plan valtrex around delivery (6) Hx of shoulder dystocia in prior , currently : Status: Acute Comment: 1st (7) Supervision of high-risk : Status: Acute Comment: , STARR 11/08/25, PC Kate Gamble, Shawn (8) History of marijuana use: Status: Acute Comment: informed pt of tox screen initial & random (9) History of gestational diabetes mellitus (GDM): Status: Acute Comment: 2nd (10) : Status: Acute Qualifiers: Weeks of gestation: 37 weeks Qualified Code(s): Z3A.37 - 37 weeks gestation of Comment: discussed NIPT & Carrier testing- declined (11) 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: Status: Chronic (12) Rectocele: Status: Acute Comment: grade II (13) Autoimmune thyroiditis: Status: Acute (14) Migraine headache: Status: Acute (15) Asthma: Status: Acute Comment: allergy induced (16) Missed : Status: Acute Orders: Orders CBC W/Diff, Automated 03/26/25 O09.90 - Supervision of high risk , unspecified, unspecified trimester Type & Screen 03/26/25 O09.90 - Supervision of high risk , unspecified, unspecified trimester Culture, Urine 03/26/25 O09.90 - Supervision of high risk , unspecified, unspecified trimester Thyroid Stim Hormone (TSH) 03/26/25 O09.90 - Supervision of high risk , unspecified, unspecified trimester T4 Free Direct 03/26/25 O09.90 - Supervision of high risk , unspecified, unspecified trimester [facility] Misc. 03/26/25 Urine Drug Screen 03/26/25 F12.91 - Cannabis use, unspecified, in remission, O09.90 - Supervision of high risk , unspecified, unspecified trimester Hemoglobin A1c 03/26/25 O09.90 - Supervision of high risk , unspecified, unspecified trimester, Z86.32 - Personal history of gestational diabetes Celiac Disease Profile Today D64.9 - Anemia, unspecified Vitamin B12 Today D64.9 - Anemia, unspecified Ferritin Today D64.9 - Anemia, unspecified Iron+Iron Binding Capacity Today D64.9 - Anemia, unspecified Plan After discussing the patient's diagnosis and treatment plan options, patient wishes to proceed with surgical management. I have discussed with the patient the risks, benefits, and alternatives of the procedure which include but are not limited to risks of anesthesia, bleeding, infection, possible damage to bowel, bladder, or surrounding vasculature which could lead to additional surgery to evaluate any complications. Patient agrees to procedure and wishes to proceed. ACOG/uptodate references given for additional information regarding procedure. will plan for suction di&C. patient would like a bedside ultrasound prior to theD&C. 04/06/25 1157 <Electronically signed by Esme Baker MD> Cosigner Signature (if applicable): CC: Dr. Esme Baker MD; CURTIS Mena~ Signed ADDENDUM by Dr. Esme Baker MD on 04/06/25 at 1354 Addendum repeat US done and no fHT or color doppler seen measuring 8w 5d UPDATE- I have seen the patient and performed any clinically relevant updates to the history and physical exam. Esme Baker MD 04/06/25 1354<Electronically signed by Esme Baker MD> Cosigner Signature (if applicable): cc: Dr. Esme Baker MD; CURTIS Mena ~* Signed [facility] Work Phone: 1(719) 873-877906-24-2025 Consult note Author Praveen Valenzuela [facility] Note Date/Time April 06, 2025 1:44 pm [facility] Medical Records Department [address] [place] [address] Pre-Anesthesia Evaluation 04/06/25 1338 MR#: [id number] Acct: [id number] Name: JOHNY TORRES Rep #:[id number] : 2000 24 From: Praveen Valenzuela MD PCP: CURTIS Mena Status:REG SDC Y Race: C Location: [place] [address] ASA Classification* ASA Classification ASA Classification: 2 Assessment & Plan Anesthesia* Anesthesia Assessment Anesthesia Assessment: Discussed sedation and/or anesthesia options, risks, benefits, and alternatives with patient/parents/legal guardian/POA. Questions invited. The patient/parents/legal guardian/POA seems to understand and agrees to proceedwith anesthesia plan. Reviewed the physical assessment, medical history, allergy history and patient home medications list prior to surgery/procedure/anesthetic and documented any changes. Performed airway and anesthesia risk assessments. Anesthesia Type Anesthesia Type: MAC History Source History Obtained from:: Patient and Chart Anesthesia Focused Assessment* Temperature: 98.6 F Pulse Rate: 80 Blood Pressure: 101/70 Respiratory Rate: 16 Pulse Ox: 100 Oxygen Delivery Method: Room Air Airway Assessment Mouth opens: >3 cm Mallampati Score: I Teeth Condition: Intact Neck Range of motion (ROM): Full ROM Labs Anesthesia Preop lab: CBC WBC 7.5 K/mm3 (4.4-11.0) 04/06/25 12:41 04/06/25 RBC 3.82 M/mm3 (4.2-5.4) L 04/06/25 12:41 04/06/25 Hgb 10.9 g/dL (12.0-15.0) L 04/06/25 12:41 5 Hct 31.7 % (37-47) L 04/06/25 12:41 04/06/25 Plt Count 251 K/mm3 (150-450) 04/06/25 12:41 04/06/25 CHEMISTRY Potassium 3.6 mmol/L (3.5-5.1) 09/16/23 16:03 09/16/23 Sodium 136 mmol/L (136-145) 09/16/23 16:03 09/16/23 BUN 9 mg/dL (7-18) 09/16/23 16:03 09/16/23 Creatinine 0.68 mg/dL (0.55-1.02) 12/18/23 18:10 12/18/23 Glucose 117 mg/dL (74-106) H 09/16/23 16:03 09/16/23 POC Glucose 94 mg/dL (74-106) 12/14/23 05:27 12/14/23 TSH 2.830 uIU/mL (0.300-4.200) 03/11/25 09:00 02/12 07/08 COAG PT 13.4 SECONDS (11.7-14.9) 11/27/23 20:45 Pre-Assessment Diagnosis/Proposed Procedure Planned Operative Procedure(s): d&c, suction Anesthesia History 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 When Was Last Pacemaker Check QUESTION #4 FULL TEXT: You/Your Family Experience fever (hyperthermia) with Anesthesia Last Oral Intake Last Oral intake: Last Oral Intake NPO since 22:30 04/06/25 12:51 Meds taken in AM with sips of Yes 04/06/25 12:51 water? 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 Female Yes 04/05/25 15:18 HX of Motion Sickness Yes 04/05/25 15:18 HX of N/V After Surgery No 04/05/25 15:18 Non-Smoker Yes 04/05/25 15:18 Duration of Surgery greater No 04/05/25 15:18 than 60 minutes Number of Risk Factors 3 04/05/25 15:18 PONV Score Moderate Risk 04/05/25 15:18 Height & Weight Height & Weight: Anesthesia: Height & Weight Height 5 ft 3 in 04/06/25 12:51 Weight: 62 kg 04/06/25 12:51 Body Mass Index (BMI) 24.2 04/06/25 12:51 Respiratory Assessment Respiratory Assessment - steelscope operator: Respiratory Tract Infection Hx - steelscope operator Hx Respiratory Tract Infection No 04/05/25 15:18 STOP Sleep Apnea STOP Sleep Apnea - steelscope operator: STOP Sleep Apnea - steelscope operator Hx Hypertension No 04/05/25 15:18 Hx Sleep Apnea No 04/05/25 15:18 CPAP BIPAP Do you snore loudly (louder No 04/05/25 15:18 than talking or can be heard Do you often feel tired/ No 04/05/25 15:18 fatigued/ sleepy during daytime? Has anyone observed you stop No 04/05/25 15:18 breathing during sleep? STOP Results Negative 04/05/25 15:18 QUESTION #5 FULL TEXT : Do you snore loudly (louder than talking or can be heard through closed doors)? 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 Specify any problems Hx of Preganancy in last 3 N/A 04/05/25 15:18 Months Nurse Filling Out Transfusion NBUCHER 04/05/25 15:18 & Questions: Date: 04/05/25 04/05/25 15:18 Time: 15:19 04/05/25 15:18 Patient unable to answer at this time (ie. 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 Hx Now No 04/05/25 15:18 Gestational Age (in weeks): EDC: Hx Hx Para Hx Section SAB No 04/05/25 15:18 Active Medications Active Medications: Current Medications Generic Name Dose Route Start Last Admin Trade Name Freq PRN Reason Stop Dose Admin Doxycycline Monohydrate 100 mg 04/06/25 14:00 04/06/25 12:56 Doxycycline 100 Mg Capsule PO 04/06/25 14:01 100 mg PREOP ONE Administration Lactated Ringer's 1,000 mls @ 15 mls/hr 04/06/25 12:30 04/06/25 12:56 IV 15 mls/hr .Q48H WALT Administration PFSH Medical History (Updated 04/05/25 @ 15:22 by Evangelina Carlson) Hypothyroid Low iron Anemia Thyroid disease Vasovagal syncope History of echocardiogram Former smoker 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 Abnormal uterine bleeding Autoimmune thyroiditis Vaginal delivery Oligohydramnios Gestational diabetes mellitus (GDM) affecting , antepartum Abnormal glucose affecting Shoulder dystocia during labor and delivery Rh negative status during H/O herpes genitalis Home Medications ?Medication ?Instructions ?Recorded ?Last Taken ?Type multivit-min no.71-iron fum 28 1 cap PO DAILY 05/16/23 12/18/23 08:00 History mg-folate no.1 1 mg-dha 300 mg 1 cap capsule (PNV-[place]) levothyroxine 50 mcg tablet 50 mcg PO QDAY #90 tabs 04/06/25 Rx albuterol sulfate 90 mcg/actuation 2 puff inhalation Q 6H PRN 03/26/25 Unknown History aerosol inhaler (Ventolin HFA) shortness of breath or wheezing cholecalciferol (vitamin D3) 50 50 mcg PO QDAY 5 Unknown History mcg (2,000 unit) capsule Allergy/AdvReac Type Severity Reaction Status Date / Time Latex, Natural Rubber Allergy Mild Itching Verified 04/06/25 12:49 hydrocodone (From Vicodin) Allergy other Verified 04/06/25 12:49 hydromorphone (From Dilaudid) AdvReac Intermediate passed out Verified 04/06/25 12:49 Family History Grandmother Ovarian cancer, Onset Age: 70 Paternal great grandmother Colon cancer, Onset Age: 60 Paternal Surgical History History of throat surgery History of tonsillectomy [place] teeth extracted Social History adopted: No household members: spouse and children housing: house number of children: 2 current occupational status: unemployed current occupation: [employer] pets and animals: Yes pets and animals: dog(s) history of recent travel: No sexually active: Yes Smoking Status: Former smoker quit date: 03/15/21 pack-years: 4 Tobacco: How many years used: 2 Electronic Cigarette Use: with nicotine alcohol intake: current alcohol intake frequency: holidays/special occasions only details: not while substance use type: former substance user and marijuana well-balanced diet: daily or most days caffeine: No eating out: rarely or never during the past year weight has: decreased > 10 lbs what type of physical activity do you participate in: walking frequency: 1-2 times per week duration: 30-45 minutes/day stacey/taoism: Temple seatbelt use: always do you feel safe at home: Yes additional social history: Shawn Torres Review of Systems (Anesthesia) ROS Narrative System reviewed and no additional complaints, except as documented. 04/06/25 1344 <Electronically signed by Praveen santa MD> Date _ Praveen Ibrahimigner Signature: Date CC: ~ Signed [facility] Work Phone: [phone] Discharge summary [facility] Medical Records Department [address] [place] [address] Instructions for Home/Discharge Instructions 04/06/25 1443 MR#: [id number] Acct: [id number] Name: JOHNY TORRES Rep #:[id number] : 2000 24 From: Esme madrid MD PCP: CURTIS Mena Status:REG SDC Discharge Instructions Diet Discharge Diet: No restrictions DC O2, CPAP, BIPAP needs Home O2 Discharge instructions: No Dressing / Incision Discharge Activity: Return to Normal Activity, May Shower and May Take a Tub Bath (after 1 week) May resume sexual activity in: 1-2 weeks Weight Bearing Status: Weight bearing as tolerated Lifting Restrictions: none Dressing / Incision Call your doctor if you observe: Fever of 101 or Higher, Using more than 1 pad per hour, Shortness of breath and Uncontrolled pain Follow Up Care Please Follow Up With: Esme Baker MD When: Call [phone] to schedule appointment. Test Results: Test results from this visit will be discussed in further detail at your follow- up appointment, if applicable. Discharge Plan Admission Attending Provider: Esme Baker Primary Care Provider: Chrystal Alamo Instructions Print Language: Eritrean Discharge Orders/Prescriptions Prescriptions: No Action PNV-[place] 28-1-300 mg capsule 1 cap PO DAILY cholecalciferol (vitamin D3) 50 mcg (2,000 unit) capsule 50 mcg PO QDAY albuterol sulfate [Ventolin HFA] 90 mcg/actuation HFA aerosol inhaler 2 puff inhalation Q6H PRN (Reason: shortness of breath or wheezing) levothyroxine 50 mcg tablet 50 mcg PO QDAY Qty: 90 3RF Referrals / Follow Up: Chrystal Alamo PA [Primary Care Provider] - Disposition Disposition (needs filled in before D/C Order can be placed): Home, Self Care 04/06/25 1457Esme Baker MD CC: CURTIS Mena ~ Signed [facility]06-24-2025 Procedure note [facility] Medical Records Department [address] [place] [address] Operative Report 04/06/25 1442 MR#: [id number] Acct: [id number] Name: JOHNY TORRES Rep #:[id number] : 2000 24 From: Esme madrid MD PCP: CURTIS Mena Status:REG [facility] [place] Location: AC20-1 Procedures Urinary/Genital 52xxx-59xxx: 78304 Surg Trtmt missed Ab, 1TM Operative Report (Standard) Operative Information Date of Procedure: 04/06/25 Pre-Operative Diagnosis: see problem list comments Post-Operative Diagnosis: same Surgery/Procedure Performed: suction dilation and curettage concrete analyst: No Type of Anesthesia: IV Sedation and Local RN Documented Start/Stop Times: Operation Date: 04/06/25 14:00 Case Time Into Pre-Op 04/06/25 12:16 Out of Pre-Op 04/06/25 14:23 Anesthesia Start 04/06/25 14:31 Into Room 04/06/25 14:31 Procedure Start Time: 14:31 Procedure Stop Time: 14:54 Select all DRAINS/GRAFTS/IMPLANTS that apply: None Estimated Blood Loss: 100 Specimen collected: Yes Description of specimen(s) removed: retained POC Description of surgery: Patient was taken to the operating room and placed under MAC local anesthesia. She was prepped and draped in the normal sterile fashion the dorsal lithotomy position. Bladder was drained of clear urine and anterior lip of the cervix wasgrasped and the uterus sounded to 12 cm. Cervix was progressively dilated to allow passage of a 12mm suction curette. Progressive passes were made removing the retained products of conception without complication. Sharp curettage confirmed complete removal of theretained products. All instruments were removed from the vagina and excellent hemostasis was noted and the patient was taken to recovery in stable condition. Surgical Findings: non viable iup 9 weeks Complications Complications: No 04/06/25 7 Cosigner Signature (if applicable): CC: Dr. Esme Baker MD; CURTIS Mena~ Signed [facility]06-24-2025 History and physical note [facility] Medical Records Department [address] [place] [address] History & Physical Exam 04/06/25 1157 MR#: [id number] Acct: [id number] Name: JOHNY TORRES Rep #:[id number] : 2000 24 From: Esme madrid MD PCP: CURTIS Mena Status:REG [facility] Location: [place] [id number] History and Physical MR#: [id number] Acct: [id number] Name: JOHNY TORRES Rep #: [id number] : 2000 Provider: Dr. Brandi Freeman DO Age/Sex: 24/F Location: [facility] [place] Status: Signed Intake Vital Signs 12/22/2508:34 03/11/2508:03 04/05/2510:51 04/05/2510:53 Height 5 ft 3 in 5 ft 3 in 5 ft 3 in 5 ft 3 in Weight: 138 lb BMI 24.4 BP 121/79 H Intake Visit Reasons: *EST* NOB LMP 02/01, STARR 11/08 [employer] Required: No Is patient in pain?: No Allergies Latex, Natural Rubber Allergy (Mild, Verified 04/05/25 10:49) Itchinghydrocodone (From Vicodin) Allergy (Verified 04/05/25 10:49) otherhydromorphone (From Dilaudid) Adverse Reaction (Intermediate, Verified 04/05/25 10:49) passed out Medications ?Medication ?Instructions ?Recorded ?Confirmed ?Type multivit-min no.71-iron fum 28 1 cap PO DAILY 05/16/23 04/05/25 History mg-folate no.1 1 mg-dha 300 mg capsule (PNV-[place]) levothyroxine 50 mcg tablet 50 mcg PO QDAY #90 tabs 03/11/25 5 Rx albuterol sulfate 90 mcg/actuation 2 puff inhalation Q6H PRN 03/26/2504/05 History aerosol inhaler (Ventolin HFA) cholecalciferol (vitamin D3) 50 50 mcg PO QDAY 03/26/25 04/05/25 History mcg (2,000 unit) capsule Last Menstrual Period: 02/01/25 Zika: Zika virus screening: Negative : Yes PFSH PFSH Medical History H/O herpes genitalis Abnormal uterine bleeding 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 Autoimmune thyroiditis Vaginal delivery Oligohydramnios Gestational diabetes mellitus (GDM) affecting , antepartum Abnormal glucose affecting Shoulder dystocia during labor and delivery Rh negative status during Surgical History History of throat surgery History of tonsillectomy [place] teeth extracted Family History Grandmother Ovarian cancer, Onset Age: 70 Paternal great grandmother Colon cancer, Onset Age: 60 Paternal Social History adopted: No household members: spouse and children housing: house number of children: 2 current occupational status: unemployed current occupation: [employer] pets and animals: Yes pets and animals: dog(s) history of recent travel: No sexually active: Yes Smoking Status: Former smoker quit date: 03/15/21 pack-years: 4 Tobacco: How many years used: 2 Electronic Cigarette Use: with nicotine alcohol intake: current alcohol intake frequency: holidays/special occasions only details: not while substance use type: former substance user and marijuana well-balanced diet: daily or most days caffeine: No eating out: rarely or never during the past year weight has: decreased > 10 lbs what type of physical activity do you participate in: walking frequency: 1-2 times per week duration: 30-45 minutes/day stacey/taoism: Temple seatbelt use: always do you feel safe at home: Yes additional social history: Shawn Torres History 3 Elective abortions Hx Para 2 Spontaneous abortions Hx # Term Pregnancies Ectopic pregnancies Hx # Pregnancies Multiple births # of living children 2 Past Pregnancies Del. Date Name GA/Weeks Outcome Route Bth Weight Gen Labor Lgth Anesthesia Del Locatn Provider FOB 11/07/21 Tye 39 live - full term 8#6oz Mal e epidural Claus Escobar 12/17/23 Kate 37 live - full term 6lbs 14oz Female epidural [facility] Olivia Escobar Delivery Date: 11/07/21 Last Updated by: Esme Baker MD IOL- small pelvis, shoulder dystocia and clavicle fracture Delivery Date: 12/17/23 Last Updated by: Nicole Mehta IOL oligo [email or web address] HPI *EST* NOB LMP 02/01, STARR 11/08 Details: JOHNY TORRES is a 24 year old who presents for New OB visit, has not been feeling nauseated. wantsto discuss possible celiac disease testing for chronic anemia. The anemia is refractory to oral iron therapy. OB Visit STARR Calculator Estimated Delivery Date Method Current WG Current Estimate 11/08/25 LMP (Certain) 9w 0d Comments: HIV: Urine Culture: Sequential Screen: NIPT Screen: Estimated Due Date: 11/08/25 Initial Weight: Not Recorded Date -?-?-?-?-?-?-?-?-?-?-?-?- EGA Weight BP Urine Prot -?-?-?-?-?-?-?-?-?-?-?-?- Glucose FHR FuHt Pres Dilation -?-?-?-?-?-?-?-?-?-?-?-?- Effaced St Visit Note 04/05/25-?-?-?-?-?-?-?-?-?-?-?-?- 9w 0d 138 lb 121/79 -?-?-?-?-?-?-?-?-?-?-?-?- -?-?-?-?-?-?-?-?-?-?-?-?- JV- no heart beat on ultrasound. CRL is measuring 9 weeks 1 day. Menstrual History Last Menstrual Period: 02/01/25 Reported LMP: definite Normal amount/duration: Yes Frequency in days: 23 On hormonal BC at conception: No hCG+: 02/25/25 Antepartum Record Genetic Screening: Congenital Heart Defect: Other, Neural Tube Defect: Other, Hemoglobinopathy Or Carrier: Other, Cystic Fibrosis: Other, Chromosome Abnormality: Other, Tommy-Sachs: Other, Hemophilia: Other, Intellectual Disability/Autism: Other, Recurrent Loss/Stillbirth: Other, Other Structural Defect: Other, Other Genetic Disease: Other and Maternal Metabolic Disorder: Patient (GDMA last ) Infection History: Live with someone with TB or Exposed to TB: No, Patient or Partner has history of Genital Herpes: Yes (Pt hx of herpes), Rash or Viral illness since last mentrual period: No, PriorGBS-Infected child: No, History ofSTD: No, HIV Infection: No, History of Hepatitis: No, Recent travel outside of [place]: No, Concern for hepatitis exposure: No, Varicella immune: Yes (immune- virus)and Covid Vaccinated: No Medical History Medical History: Positive: Diabetes (GDM-2nd ), Hypertension (GHTN - 1stpregnancy), Auto-immune disorder (sivan's), Psychiatric (PP anxiety with 1stpregnancy, not second), Thyroid dysfunction (hypothyroidism), D (Rh) Sensitized (O-), Pulmonary (e.g.,TB,Asthma) (Asthma allergy induced), Drug/latex allergies/reactions (vicodin, dilaudid, latex), Operations/hospitalizations (throat, tonsillectomy, wisdom teeth), Relevant family history (See PFSH) and Other (chronic anemia, had iron infusion last with allergic reaction, migraine hx improved) and Negative: Heart disease, Kidney disease/UTI, Neurologic/epilepsy, Depression/ depression, Hepatitis/liver disease, Varicosities/phlebitis, Trauma/domestic violence, History of blood transfusions,Seasonal allergies, Breast, Machine Bander And Cellophaner surgery, Anesthetic complications, History of abnormal pap, Uterine anomaly/tana, Infertilityand Anti-retroviral treatment ACOG First Trimester First Trimester: Desire for , Alcohol, Tobacco Cessation, Illicit/Recreational Drug/Substance Use, Intimate Partner Violence, Barriers to care, Unstable Housing, Communication Barriers, Environmental/Work Hazards, Anticipated Course of Care, Nurtrition and weight gain, Toxoplasmosis Precations, Use of Any medications, Sexual activity, Exercise, Dental Care, Sauna/Hot tub use, Seat Belt use, Childbirth classes/Hospital facilities, , Travel, Indications for Ultrasound and Screening for Aneuploidy Second Trimester Second Trimester: Signs and Symptoms of Labor, Selecting a care provider, Reproductive Life Planning & Contreception, Care Planning, Depression/Anxiety and Intimate Partner Violence; Discussed Tobacco Cessation Third Trimester Third Trimester: Pain Management Plans, Labor support person(s), Immediate Larc, Movement Monitoring, Signs and Symptoms of Preeclampsia and Education ROS Const All systems reviewed & are unremarkable except as noted in H Resp Reports system reviewed and no additional complaints, except as documented and Denies cough GI Reports as per HPI Psych Reports system reviewed and no additional complaints, except as documented Exam Const General: cooperative, healthy appearing, comfortable and no acute distress Resp Effort & Inspection: normal respiratory effort Skin General: no rashes or lesions noted Psych Appearance: grossly normal Speech and Movement: speech and movement normal Coding Level of Care Code Off vis,est,level 4 Diagnoses Rh negative state in antepartum period O26.899; Z67.91 Chronic anemia D64.9 Anxiety F41.9 History of gestational hypertension Z87.59 H/O herpes genitalis Z86.19 Hx of shoulder dystocia in prior , currently O09.299 Supervision of high-risk O09.90 History of marijuana use F12.91 History of gestational diabetes mellitus (GDM) Z86.32 37 weeks gestation of Z3A.37 Weeks of gestation: 37 weeks 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 Rectocele N81.6 Autoimmune thyroiditis E06.3 Migraine headache G43.909 Asthma J45.909 Missed O02.1 Assessment and Plan Assessment and Plan (1) Rh negative state in antepartum period: Status: Acute Comment: Rhogam @ 28wks (2) Chronic anemia: Status: Chronic Comment: Had reaction to iron infusions (3) Anxiety: Status: Acute Comment: H/O anxiety 1st (4) History of gestational hypertension: Status: Acute Comment: 1st (5) H/O herpes genitalis: Status: Acute Comment: plan valtrex around delivery (6) Hx of shoulder dystocia in prior , currently : Status: Acute Comment: 1st (7) Supervision of high-risk : Status: Acute Comment: , STARR 11/08/25, Kate Ma, Shawn (8) History of marijuana use: Status: Acute Comment: informed pt of tox screen initial & random (9) History of gestational diabetes mellitus (GDM): Status: Acute Comment: 2nd (10) : Status: Acute Qualifiers: Weeks of gestation: 37 weeks Qualified Code(s): Z3A.37 - 37 weeks gestation of Comment: discussed NIPT & Carrier testing- declined (11) 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: Status: Chronic (12) Rectocele: Status: Acute Comment: grade II (13) Autoimmune thyroiditis: Status: Acute (14) Migraine headache: Status: Acute (15) Asthma: Status: Acute Comment: allergy induced (16) Missed : Status: Acute Orders: Orders CBC W/Diff, Automated 03/26/25 O09.90 - Supervision of high risk , unspecified, unspecified trimester Type & Screen 03/26/25 O09.90 - Supervision of high risk , unspecified, unspecified trimester Culture, Urine 03/26/25 O09.90 - Supervision of high risk , unspecified, unspecified trimester Thyroid Stim Hormone (TSH) 03/26/25 O09.90 - Supervision of high risk , unspecified, unspecified trimester T4 Free Direct 03/26/25 O09.90 - Supervision of high risk , unspecified, unspecified trimester [facility] Misc. 03/26/25 Urine Drug Screen 03/26/25 F12.91 - Cannabis use, unspecified, in remission, O09.90 - Supervision of high risk , unspecified, unspecified trimester Hemoglobin A1c 03/26/25 O09.90 - Supervision of high risk , unspecified, unspecified trimester, Z86.32 - Personal history of gestational diabetes Celiac Disease Profile Today D64.9 - Anemia, unspecified Vitamin B12 Today D64.9 - Anemia, unspecified Ferritin Today D64.9 - Anemia, unspecified Iron+Iron Binding Capacity Today D64.9 - Anemia, unspecified Plan After discussing the patient's diagnosis and treatment plan options, patient wishes to proceed withsurgical management. I have discussed with the patient the risks, benefits, and alternatives of theprocedure which include but are not limited to risks of anesthesia, bleeding, infection, possible damage to bowel, bladder, or surrounding vasculature which could lead to additional surgery to evaluate any complications. Patient agrees to procedure and wishes to proceed. ACOG/uptodate references given for additional information regarding procedure. will plan for suction di&C. patient would like a bedside ultrasound prior to theD&C. 04/06/25 1159 Cosigner Signature (if applicable): CC: Dr. Esme Baker MD; CURTIS Mena~ Signed ADDENDUM by Dr. Esme Baker MD on 04/06/25 at 1354 Addendum repeat US done and no fHT or color doppler seen measuring 8w 5d UPDATE- I have seen the patient and performed any clinically relevant updates to the history and physical exam. Esme Baker MD 04/06/25 5208 Cosigner Signature (if applicable): cc: Dr. Esme Baker MD; CURTIS Mena ~* Signed [facility]06-24-2025 Consult note [facility] Medical Records Department [address] [place] [address] Pre-Anesthesia Evaluation 04/06/25 1338 MR#: [id number] Acct: [id number] Name: JOHNY TORRES Rep #:[id number] : 2000 24 From: Praveen Valenzuela MD PCP: CURTIS Mena Status:REG SDC Y Race: C Location: [place] [address] ASA Classification* ASA Classification ASA Classification: 2 Assessment & Plan Anesthesia* Anesthesia Assessment Anesthesia Assessment: Discussed sedation and/or anesthesia options, risks, benefits, and alternatives with patient/parents/legal guardian/POA. Questions invited. The patient/parents/legal guardian/POA seems to understand and agrees to proceedwith anesthesia plan. Reviewed the physical assessment, medical history, allergy history and patient home medications list prior to surgery/procedure/anesthetic and documented any changes. Performed airway and anesthesia risk assessments. Anesthesia Type Anesthesia Type: MAC History Source History Obtained from:: Patient and Chart Anesthesia Focused Assessment* Temperature: 98.6 F Pulse Rate: 80 Blood Pressure: 101/70 Respiratory Rate: 16 Pulse Ox: 100 Oxygen Delivery Method: Room Air Airway Assessment Mouth opens: >3 cm Mallampati Score: I Teeth Condition: Intact Neck Range of motion (ROM): Full ROM Labs Anesthesia Preop lab: CBC WBC 7.5 K/mm3 (4.4-11.0) 04/06/25 12:41 04/06/25 RBC 3.82 M/mm3 (4.2-5.4) L 04/06/25 12:04/06/25 Hgb 10.9 g/dL (12.0-15.0) L 04/06/25 12:41 5 Hct 31.7 % (37-47) L 04/06/25 12:41 04/06/25 Plt Count 251 K/mm3 (150-450) 04/06/25 12:41 04/06/25 CHEMISTRY Potassium 3.6 mmol/L (3.5-5.1) 09/16/23 16:03 09/16/23 Sodium 136 mmol/L (136-145) 09/16/23 16:03 09/16/23 BUN 9 mg/dL (7-18) 09/16/23 16:03 09/16/23 Creatinine 0.68 mg/dL (0.55-1.02) 12/18/23 18:10 12/18/23 Glucose 117 mg/dL (74-106) H 09/16/23 16:03 09/16/23 POC Glucose 94 mg/dL (74-106) 12/14/23 05:27 12/14/23 TSH 2.830 uIU/mL (0.300-4.200) 03/11/25 09:00 02/12 07/08 COAG PT 13.4 SECONDS (11.7-14.9) 11/27/23 20:45 Pre-Assessment Diagnosis/Proposed Procedure Planned Operative Procedure(s): d&c, suction Anesthesia History 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 When Was Last Pacemaker Check QUESTION #4 FULL TEXT: You/Your Family Experience fever (hyperthermia) with Anesthesia Last Oral Intake Last Oral intake: Last Oral Intake NPO since 22:30 04/06/25 12:51 Meds taken in AM with sips of Yes 04/06/25 12:51 water? 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 Female Yes 04/05/25 15:18 HX of Motion Sickness Yes 04/05/25 15:18 HX of N/V After Surgery No 04/05/25 15:18 Non-Smoker Yes 04/05/25 15:18 Duration of Surgery greater No 04/05/25 15:18 than 60 minutes Number of Risk Factors 3 04/05/25 15:18 PONV Score Moderate Risk 04/05/25 15:18 Height & Weight Height & Weight: Anesthesia: Height & Weight Height 5 ft 3 in 04/06/25 12:51 Weight: 62 kg 04/06/25 12:51 Body Mass Index (BMI) 24.2 04/06/25 12:51 Respiratory Assessment Respiratory Assessment - steelscope operator: Respiratory Tract Infection Hx - steelscope operator Hx Respiratory Tract Infection No 04/05/25 15:18 STOP Sleep Apnea STOP Sleep Apnea - steelscope operator: STOP Sleep Apnea - steelscope operator Hx Hypertension No 04/05/25 15:18 Hx Sleep Apnea No 04/05/25 15:18 CPAP BIPAP Do you snore loudly (louder No 04/05/25 15:18 than talking or can be heard Do you often feel tired/ No 04/05/25 15:18 fatigued/ sleepy during daytime? Has anyone observed you stop No 04/05/25 15:18 breathing during sleep? STOP Results Negative 04/05/25 15:18 QUESTION #5 FULL TEXT : Do you snore loudly (louder than talking or can be heard through closeddoors)? 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 Specify any problems Hx of Preganancy in last 3 N/A 04/05/25 15:18 Months Nurse Filling Out Transfusion NBUCHER 04/05/25 15:18 & Questions: Date: 04/05/25 04/05/25 15:18 Time: 15:19 04/05/25 15:18 Patient unable to answer at this time (ie. 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 Hx Now No 04/05/25 15:18 Gestational Age (in weeks): EDC: Hx Hx Para Hx Section SAB No 04/05/25 15:18 Active Medications Active Medications: Current Medications Generic Name Dose Route Start Last Admin Trade Name Freq PRN Reason Stop Dose Admin Doxycycline Monohydrate 100 mg 04/06/25 14:00 04/06/25 12:56 Doxycycline 100 Mg Capsule PO 04/06/25 14:01 100 mg PREOP ONE Administration Lactated Ringer's 1,000 mls @ 15 mls/hr 04/06/25 12:30 04/06/25 12:56 IV 15 mls/hr .Q48H WALT Administration PFSH Medical History (Updated 04/05/25 @ 15:22 by Evangelina Carlson) Hypothyroid Low iron Anemia Thyroid disease Vasovagal syncope History of echocardiogram Former smoker 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 Abnormal uterine bleeding Autoimmune thyroiditis Vaginal delivery Oligohydramnios Gestational diabetes mellitus (GDM) affecting , antepartum Abnormal glucose affecting Shoulder dystocia during labor and delivery Rh negative status during H/O herpes genitalis Home Medications ?Medication ?Instructions ?Recorded ?Last Taken ?Type multivit-min no.71-iron fum 28 1 cap PO DAILY 05/16/23 12/18/23 08:00 History mg-folate no.1 1 mg-dha 300 mg 1 cap capsule (PNV-[place]) levothyroxine 50 mcg tablet 50 mcg PO QDAY #90 tabs 04/06/25 Rx albuterol sulfate 90 mcg/actuation 2 puff inhalation Q 6H PRN 03/26/25 Unknown History aerosol inhaler (Ventolin HFA) shortness of breath or wheezing cholecalciferol (vitamin D3) 50 50 mcg PO QDAY 5 Unknown History mcg (2,000 unit) capsule Allergy/AdvReac Type Severity Reaction Status Date / Time Latex, Natural Rubber Allergy Mild Itching Verified 04/06/25 12:49 hydrocodone (From Vicodin) Allergy other Verified 04/06/25 12:49 hydromorphone (From Dilaudid) AdvReac Intermediate passed out Verified 04/06/25 12:49 Family History Grandmother Ovarian cancer, Onset Age: 70 Paternal great grandmother Colon cancer, Onset Age: 60 Paternal Surgical History History of throat surgery History of tonsillectomy [place] teeth extracted Social History adopted: No household members: spouse and children housing: house number of children: 2 current occupational status: unemployed current occupation: [employer] pets and animals: Yes pets and animals: dog(s) history of recent travel: No sexually active: Yes Smoking Status: Former smoker quit date: 03/15/21 pack-years: 4 Tobacco: How many years used: 2 Electronic Cigarette Use: with nicotine alcohol intake: current alcohol intake frequency: holidays/special occasions only details: not while substance use type: former substance user and marijuana well-balanced diet: daily or most days caffeine: No eating out: rarely or never during the past year weight has: decreased > 10 lbs what type of physical activity do you participate in: walking frequency: 1-2 times per week duration: 30-45 minutes/day stacey/taoism: Temple seatbelt use: always do you feel safe at home: Yes additional social history: Shawn Torres Review of Systems (Anesthesia) ROS Narrative System reviewed and no additional complaints, except as documented. 04/06/25 1344 kiet ENGLISH> Date _ Praveen Valenzuela MD Cosigner Signature: Date CC: ~ Signed [facility]06-24-2025 [facility] Medical Records Department [address] [place] [address] History Physical Exam 04/06/25 1157 MR#: [id number] Acct: [id number] Name: JOHNY TRORES Rep #: [id number] : 2000 24 From: Esme Baker MD PCP: CURTIS Mena Status:PRE [facility] [place] Location: [facility] [place] [facility] History and Physical MR#: [id number] Acct: [id number] Name: JOHNY TORRES Rep #: [id number] : 2000 Provider: Dr. Brandi Freeman DO Age/Sex: 24/F Location: [facility] [place] Status: Signed Intake Vital Signs 12/22/2508:34 03/11/2508:03 04/05/2510:51 04/05/2510:53 Height 5 ft 3 in 5 ft 3 in 5 ft 3 in 5 ft 3 in Weight: 138 lb BMI 24.4 BP 121/79 H Intake Visit Reasons: *EST* NOB LMP 02/01, STARR 11/08 [employer] Required: No Is patient in pain?: No Allergies Latex, Natural Rubber Allergy (Mild, Verified 04/05/25 10:49) Itchinghydrocodone (From Vicodin) Allergy (Verified 04/05/25 10:49) otherhydromorphone (From Dilaudid) Adverse Reaction (Intermediate, Verified 04/05/25 10:49) passed out Medications ???Medication ???Instructions ???Recorded ???Confirmed ???Type multivit-min no.71-iron fum 28 1 cap PO DAILY 05/16/23 04/05/25 History mg-folate no.1 1 mg-dha 300 mg capsule (PNV-[place]) levothyroxine 50 mcg tablet 50 mcg PO QDAY #90 tabs 03/11/25 04/05/25 Rx albuterol sulfate 90 mcg/actuation 2 puff inhalation Q6H PRN 03/26/25 04/05/25 Histor y aerosol inhaler (Ventolin HFA) cholecalciferol (vitamin D3) 50 50 mcg PO QDAY 03/26/25 04/05/25 History mcg (2,000 unit) capsule Last Menstrual Period: 02/01/25 Zika: Zika virus screening: Negative : Yes [facility] Medical History H/O herpes genitalis Abnormal uterine bleeding 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 Autoimmune thyroiditis Vaginal delivery Oligohydramnios Gestational diabetes mellitus (GDM) affecting , antepartum Abnormal glucose affecting Shoulder dystocia during labor and delivery Rh negative status during Surgical History History of throat surgery History of tonsillectomy [place] teeth extracted Family History Grandmother Ovarian cancer, Onset Age: 70 Paternal great grandmother Colon cancer, Onset Age: 60 Paternal Social History adopted: No household members: spouse and children housing: house number of children: 2 current occupational status: unemployed current occupation: [employer] pets and animals: Yes pets and animals: dog(s) history of recent travel: No sexually active: Yes Smoking Status: Former smoker quit date: 03/15/21 pack-years: 4 Tobacco: How many years used: 2 Electronic Cigarette Use: with nicotine alcohol intake: current alcohol intake frequency: holidays/special occasions only details: not while substance use type: former substance user and marijuana well-balanced diet: daily or most days caffeine: No eating out: rarely or never during the past year weight has: decreased > 10 lbs what type of physical activity do you participate in: walking frequency: 1-2 times per week duration: 30-45 minutes/day stacey/taoism: Temple seatbelt use: always do you feel safe at home: Yes additional social history: Shawn Torres History 3 Elective abortions Hx Para 2 Spontaneous abortions Hx # Term Pregnancies Ectopic pregnancies Hx # Pregnancies Multiple births # of living children 2 Past Pregnancies Del. Date Name GA/Weeks Outcome Route Bth Weight Gen Labor Lgth Anesthesia Del Locatn Provider FOB 11/07/21 Tye 39 live - full term 8#6oz Male epidura l [facility] Dr. Jordon Escobar 12/17/23 Ellia 37 live - full term 6lbs 14oz Female e pidural [facility] Olivia Escobar Delivery Date: 11/07/21 Last Updated by: Esme Baker MD IOL- small pelvis, shoulder dystocia and clavicle fracture Delivery Date: 12/17/23 Last Updated by: Nicole Mehta IOL oligo [email or web address] HPI *EST* NOB LMP 02/01, STARR 11/08 Details: JOHNY TORRES is a 24 year old who presents for New OB visit, has not been feeling nauseated. wants to discuss possible celiac disease testing for chronic anemia. The anemia is refractory to oral iron therapy. OB Visit STARR Calculator Estimated Delivery Date Method Current WG Current Estimate 11/08/25 LMP (Certain) 9w 0d Comments: HIV: Urine Culture: S (more content not included)...[facility]05-29-2025 [facility] [address] [place] [address] OFFICE VISIT Date of Service: 03/11/25 MR#: [id number] Acct: [id number] Name: JOHNY TORRES Rep #: [id number] : 2000 Provider: Dr. Anson Richter MD Age/Sex: 24/F [place] [facility] [place]: Signed Intake Vital Signs 12/22/24 09:34 03/11/25 08:03 Height 5 ft 3 in 5 ft 3 in Weight: 138 lb 6 oz 136 lb 4 oz BMI 24.5 24.1 BP 124/79 H 106/73 Blood Pressure Location Lt brachial Position Sitting Pulse 93 Pulse Source Monitor Pulse Oximetry (%) 98 Oxygen Delivery Method room air Intake Visit Reasons: 2 Y FU Chief Complaint: Thyroid Is patient in pain?: No Allergies Latex, Natural Rubber Allergy (Mild, Verified 03/11/25 08:19) Itching hydrocodone (From Vicodin) Allergy (Verified 03/11/25 08:19) other hydromorphone (From Dilaudid) Adverse Reaction (Intermediate, Verified 03/11/25 08:19) passed out Medications ?Medication ?Instructions ?Recorded ?Confirmed ?Type multivit-min no.71-iron fum 28 1 cap PO DAILY 05/16/23 03/11/25 History mg-folate no.1 1 mg-dha 300 mg capsule (PNV-[place]) levothyroxine 50 mcg tablet 50 mcg PO QDAY #90 tabs 03/11/25 Rx Patient : Yes (5 w 3 d) [facility] Medical History (Updated 03/11/25 @ 08:[address] 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 Autoimmune thyroiditis Vaginal delivery Oligohydramnios Gestational diabetes mellitus (GDM) affecting , antepartum Abnormal glucose affecting Shoulder dystocia during labor and delivery Rh negative status during H/O herpes genitalis Surgical History History of throat surgery History of tonsillectomy [place] teeth extracted Family History Grandmother Ovarian cancer great grandmother Social History adopted: No household members: spouse and children number of children: 2 current occupational status: unemployed current occupation: [employer] pets and animals: Yes pets and animals: dog(s) history of recent travel: No sexually active: Yes Smoking Status: Former smoker quit date: 03/15/21 pack-years: 4 alcohol intake: never substance use type: does not use well-balanced diet: daily or most days caffeine: No eating out: 1-3 times/week during the past year weight has: remained stable what type of physical activity do you participate in: walking frequency: daily duration: 30-45 minutes/day stacey/taoism: Temple seatbelt use: always do you feel safe at home: Yes additional social history: Shawn Torres [facility] HPI Chief Complaint: Thyroid Details: JOHNY FREED, is a 24 F who presents to the office today for follow up. She has hypothyroidism due to Sivan's. She reports being 5 weeks . She is due for labs. She is feeling well. She is taking levothyroxine 50 mcg and she is following the rules. ROS Const Constitutional: No fatigue, weight change or change in appetite Eyes Eyes: No change in vision ENT ENT: No dizziness/vertigo or difficulty swallowing Cardio Cardiology: No chest pain at rest, chest pain with exertion, shortness of breathor palpitations Musc Musculoskeletal: No abnormal gait, joint pain, numbness or tingling Neuro Neurology: No abnormal gait, memory loss, numbness or tingling Psych Psychiatric: No change in appetite, No memory loss and No Thoughts of harming yourself/Others Resp Respiratory: No cough, chest congestion or shortness of breath Gastro GI: Positive for nausea/dyspepsia; No abdominal pain, constipation, diarrhea or difficulty swallowing Genitourinary-Female: No burning urination Skin Skin: No itchy eyes or wounds Endo Endocrine: No fatigue or weight change Aller/Imm Allergy/Immunologic: No itchy eyes Exam Const General: cooperative, healthy appearing, comfortable, no acute distress, well developed and not cushingoid Nutritional Appearance: well nourished Orientation: alert, awake and oriented x3 HENMT Head: normal to inspection Ears: hearing grossly normal bilaterally Nose: external nose normal Mouth: oral mucosae normal Eyes General: appearance normal, both eyes and all related structures Alignment and Position: alignment normal Periorbital: periorbital findings normal Eyelids: eyelids normal Conjunctivae: conjunctivae normal Neck Neck: normal visual inspection Neck mass: No Thyroid: thyroid normal Lymphatic: no lymphadenopathy noted Chest Chest palpation & inspection: normal inspection of the chest Resp Effort & Inspection: normal respiratory effort, able to speak in complete sentences, symmetric chest movement, no audible wheezes and no cough Cardio Rate: regular rate Rhythm: regular rhythm Skin General: no rashes or lesions noted Neuro General: patient alert, patient awake and patient oriented x3 Cranial Nerves: CN's II-XI intact bilaterally Cognition: normal cognition Speech: speech normal Gait: normal gait Motor: muscle tone normal throughout Extrem General: no edema Psych Appearance: grossly normal Mental Status: mental status grossly normal Mood: congruent mood Affect: normal affect Speech and Movement: speech and movement normal Attitude: cooperative Thought Process: normal Thought Content: normal Judgment: judgment good Assessment and Plan Assessment and Plan (1) 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 Then wait 30-60minutes before consuming any other food or beverage, especially coffee. Separate levothyroxine fromvitamins by at least 4 hours. Stop taking any biotin supplement 4 days prior to having labs drawn. Check labs. (2) : Status: Acute Qualifiers: Weeks of gestation: 37 weeks Qualified Code(s): Z3A.37 - 37 weeks gestation of Plan: Discussed thyroid disease in . Discussed nutrition in . I have spent [30] minutes today reviewing labs, records and history. Time includes coordinating care, interpretation of tests, discussion with patient's other health care providers via telephone. This also includes time I spent with the patient for exam, treatment plan and education as well as documenting clinical information. 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 [place], [place] [address] OFFICE VISIT Date of Service: 03/11/25 MR#: [id number] Acct: [id number] Name: JOHNY TORRES Rep #: [id number] : 2000 Provider: Dr. Anson Richter MD Age/Sex: 24/F Location: [facility] [place] Status: Signed Intake Vital Signs 12/22/24 09:34 03/11/25 08:03 Height 5 ft 3 in 5 ft 3 in Weight: 138 lb 6 oz 136 lb 4 oz BMI 24.5 24.1 BP 124/79 H 106/73 Blood Pressure Location Lt brachial Position Sitting Pulse 93 Pulse Source Monitor Pulse Oximetry (%) 98 Oxygen Delivery Method room air Intake Visit Reasons: 2 Y FU Chief Complaint: Thyroid Is patient in pain?: No Allergies Latex, Natural Rubber Allergy (Mild, Verified 03/11/25 08:19) Itching hydrocodone (From Vicodin) Allergy (Verified 03/11/25 08:19) other hydromorphone (From Dilaudid) Adverse Reaction (Intermediate, Verified 03/11/25 08:19) passed out Medications ?Medication ?Instructions ?Recorded ?Confirmed ?Type multivit-min no.71-iron fum 28 1 cap PO DAILY 05/16/23 03/11/25 History mg-folate no.1 1 mg-dha 300 mg capsule (PNV-[place]) levothyroxine 50 mcg tablet 50 mcg PO QDAY #90 tabs 03/11/25 Rx Patient : Yes (5 w 3 d) [facility] Medical History (Updated 03/11/25 @ 08:[address] 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 Autoimmune thyroiditis Vaginal delivery Oligohydramnios Gestational diabetes mellitus (GDM) affecting , antepartum Abnormal glucose affecting Shoulder dystocia during labor and delivery Rh negative status during H/O herpes genitalis Surgical History History of throat surgery History of tonsillectomy [place] teeth extracted Family History Grandmother Ovarian cancer great grandmother Social History adopted: No household members: spouse and children number of children: 2 current occupational status: unemployed current occupation: [employer] pets and animals: Yes pets and animals: dog(s) history of recent travel: No sexually active: Yes Smoking Status: Former smoker quit date: 03/15/21 pack-years: 4 alcohol intake: never substance use type: does not use well-balanced diet: daily or most days caffeine: No eating out: 1-3 times/week during the past year weight has: remained stable what type of physical activity do you participate in: walking frequency: daily duration: 30-45 minutes/day stacey/taoism: Temple seatbelt use: always do you feel safe at home: Yes additional social history: Shawn Torres HPI HPI Chief Complaint: Thyroid Details: JOHNY FREED, is a 24 F who presents to the office today for follow up. She has hypothyroidism due to Sivan's. She reports being 5 weeks . She is due for labs. She is feeling well. She is taking levothyroxine 50 mcg and she is following the rules. ROS Const Constitutional: No fatigue, weight change or change in appetite Eyes Eyes: No change in vision ENT ENT: No dizziness/vertigo or difficulty swallowing Cardio Cardiology: No chest pain at rest, chest pain with exertion, shortness of breathor palpitations Musc Musculoskeletal: No abnormal gait, joint pain, numbness or tingling Neuro Neurology: No abnormal gait, memory loss, numbness or tingling Psych Psychiatric: No change in appetite, No memory loss and No Thoughts of harming yourself/Others Resp Respiratory: No cough, chest congestion or shortness of breath Gastro GI: Positive for nausea/dyspepsia; No abdominal pain, constipation, diarrhea or difficulty swallowing Genitourinary-Female: No burning urination Skin Skin: No itchy eyes or wounds Endo Endocrine: No fatigue or weight change Aller/Imm Allergy/Immunologic: No itchy eyes Exam Const General: cooperative, healthy appearing, comfortable, no acute distress, well developed and not cushingoid Nutritional Appearance: well nourished Orientation: alert, awake and oriented x3 HENMT Head: normal to inspection Ears: hearing grossly normal bilaterally Nose: external nose normal Mouth: oral mucosae normal Eyes General: appearance normal, both eyes and all related structures Alignment and Position: alignment normal Periorbital: periorbital findings normal Eyelids: eyelids normal Conjunctivae: conjunctivae normal Neck Neck: normal visual inspection Neck mass: No Thyroid: thyroid normal Lymphatic: no lymphadenopathy noted Chest Chest palpation & inspection: normal inspection of the chest Resp Effort & Inspection: normal respiratory effort, able to speak in complete sentences, symmetric chest movement, no audible wheezes and no cough Cardio Rate: regular rate Rhythm: regular rhythm Skin General: no rashes or lesions noted Neuro General: patient alert, patient awake and patient oriented x3 Cranial Nerves: CN's II-XI intact bilaterally Cognition: normal cognition Speech: speech normal Gait: normal gait Motor: muscle tone normal throughout Extrem General: no edema Psych Appearance: grossly normal Mental Status: mental status grossly normal Mood: congruent mood Affect: normal affect Speech and Movement: speech and movement normal Attitude: cooperative Thought Process: normal Thought Content: normal Judgment: judgment good Assessment and Plan Assessment and Plan (1) 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 Then wait 30-60 minutes before consuming any other food or beverage, especially coffee. Separate levothyroxine from vitamins by at least 4 hours. Stop taking any biotin supplement 4 days prior to having labs drawn. Check labs. (2) : Status: Acute Qualifiers: Weeks of gestation: 37 weeks Qualified Code(s): Z3A.37 - 37 weeks gestation of Plan: Discussed thyroid disease in . Discussed nutrition in . I have spent [30] minutes today reviewing labs, records and history. Time includes coordinating care, interpretation of tests, discussion with patient's other health care providers via telephone. This also includes time I spent with the patient for exam, treatment plan and education as well as documenting clinical information. 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 female who presents for Follow-up (6 WEEK F/U LABS. C/O RIGHT SHOULDER PAIN X 1 MONTH WITH TINGLING OFF/ON. NORMAL ROM BUT LIMITS HER ABILITY TO DO DAILY ACTIVITIES. ) HPI LABS R shoulder pain x 1 mo Pain located in posterior around shoulder blade Tingling on and off Norm ROM but pain is limiting her in her ADLS No known injury Pt denies prior injury to neck or back or neck /back pain Discussed NSAID, rest, ice x 1 week and if little relief steroid and if little relief xray and follow up Med check Asthma - rescue inhaler prn Hypothyroid - on meds Low B12 Vit D Def - taking OTC Iron - taking daily and doing well Preventative PAP Mammo DEXA Colon Fall - NEG NOV 2024 PHQ2 - NEG NOV 2024 Patient Active Problem List Diagnosis Depression, major, single episode, mild (CMS-HCC) External hemorrhoids SOPHIA (generalized anxiety disorder) Genital herpes Intractable migraine without aura and with status migrainosus Iron deficiency anemia Low thyroid stimulating hormone (TSH) level Mild persistent asthma without complication (HHS-HCC) Seasonal allergies Thyroglossal cyst Thyroid pain Thyroiditis TMJ click Pleurisy Asthmatic bronchitis without complication (HHS-HCC) Abscess Sivan's thyroiditis Acute non-recurrent maxillary sinusitis Nasal congestion Pelvic pain in female Review of Systems Constitutional: Positive for fatigue. Negative for chills and fever. HENT: Negative for congestion, rhinorrhea, sinus pain, sore throat and tinnitus. Eyes: Negative for discharge, redness and visual disturbance. Respiratory: Negative for cough, chest tightness, shortness of breath and wheezing. Cardiovascular: Negative for chest pain, palpitations and leg swelling. Gastrointestinal: Negative for abdominal pain, constipation, diarrhea, nausea and vomiting. Endocrine: Negative for cold intolerance and heat intolerance. Genitourinary: Negative for flank pain, frequency and urgency. Musculoskeletal: Positive for arthralgias. Negative for back pain, gait problem and neck pain. Skin: Negative for rash and wound. Neurological: Negative for dizziness, tremors, syncope, numbness and headaches. Hematological: Does not bruise/bleed easily. Psychiatric/Behavioral: Negative for confusion, sleep disturbance and suicidal ideas. Past Medical History: Diagnosis Date Allergic Anemia Anxiety Asthma Disease of thyroid gland Encounter for full-term uncomplicated delivery Normal vaginal delivery Encounter for gynecological examination (general) (routine) without abnormal findings Pap test, as part of routine gynecological examination Other conditions influencing health status Menstruation Other specified related conditions, unspecified trimester ([facility]) 10/31/2021 Rh negative, antepartum Personal history of other endocrine, nutritional and metabolic disease History of Sivan thyroiditis Personal history of other infectious and parasitic diseases 03/20/2021 History of herpes simplex infection Past Surgical History: Procedure Laterality Date MOUTH SURGERY THYROGLOSSAL DUCT EXCISION cyst TONSILLECTOMY Family History Problem Relation Name Age of Onset No Known Problems Mother No Known Problems Father Social History Tobacco Use Smoking status: Former Types: Cigarettes Smokeless tobacco: Never Vaping Use Vaping status: Never Used Substance Use Topics Alcohol use: Yes Comment: rare Drug use: Not Currently Allergies Allergen Reactions Hydrocodone Other Hydrocodone-Acetaminophen Other Hydrocodone-Guaifenesin Other Hydromorphone Other Latex Rash Current Outpatient Medications Medication Sig Dispense Refill cholecalciferol (Vitamin D3) 25 mcg (1000 units) tablet Take 1 tablet (1,000 Units) by mouth once daily. ferrous gluconate (Fergon) 324 (38 Fe) mg tablet Take 1 tablet (38 mg of iron) by mouth once daily with breakfast. levothyroxine (Synthroid, Levoxyl) 50 mcg tablet Take 1 tablet (50 mcg) by mouth early in the morning.. no115/iron/folic acid ( 19 ORAL) Take by mouth. albuterol (Ventolin HFA) 90 mcg/actuation inhaler Inhale 2 puffs every 4 hours if needed for wheezing or shortness of breath. 18 g 3 No current facility-administered medications for this visit. Objective BP 108/62 Pulse 76 Ht 1.6 m (5' 3) Wt 62.1 kg (137 lb) BMI 24.27 kg/m Physical Exam Vitals reviewed. Constitutional: Appearance: Normal appearance. She is normal weight. HENT: Head: Normocephalic. Right Ear: External ear normal. Left Ear: External ear normal. Nose: Nose normal. No congestion or rhinorrhea. Mouth/Throat: Mouth: Mucous membranes are moist. Eyes: Extraocular Movements: Extraocular movements intact. Conjunctiva/sclera: Conjunctivae normal. Pupils: Pupils are equal, round, and reactive to light. Cardiovascular: Rate and Rhythm: Normal rate and regular rhythm. Pulses: Normal pulses. Pulmonary: Effort: Pulmonary effort is normal. Breath sounds: Normal breath sounds. Abdominal: General: Bowel sounds are normal. Palpations: Abdomen is soft. Tenderness: There is no abdominal tenderness. There is no right CVA tenderness or left CVA tenderness. Musculoskeletal: General: Tenderness present. Normal range of motion. Cervical back: Normal range of motion and neck supple. No tenderness. Comments: Tender R shoulder spine of scapula Norm ROM Skin: General: Skin is warm and dry. Neurological: General: No focal deficit present. Mental Status: She is alert and oriented to person, place, and time. Psychiatric: Mood and Affect: Mood normal. Behavior: Behavior normal. Testing Component Latest Ref [facility] 11/25/2024 WHITE BLOOD CELL COUNT 3.8 - 10.8 Thousand/uL 4.6 RED BLOOD CELL COUNT 3.80 - 5.10 Million/uL 4.12 HEMOGLOBIN 11.7 - 15.5 g/dL 11.6 (L) HEMATOCRIT 35.0 - 45.0 % 35.5 MCV 80.0 - 100.0 fL 86.2 MCH 27.0 - 33.0 pg 28.2 MCHC 32.0 - 36.0 g/dL 32.7 RDW 11.0 - 15.0 % 12.1 PLATELET COUNT 140 - 400 Thousand/uL 305 MPV 7.5 - 12.5 fL 9.9 ABSOLUTE NEUTROPHILS 1,500 - 7,800 cells/uL 2,383 ABSOLUTE LYMPHOCYTES 850 - 3,900 cells/uL 1,670 ABSOLUTE MONOCYTES 200 - 950 cells/uL 299 ABSOLUTE EOSINOPHILS 15 - 500 cells/uL 198 ABSOLUTE BASOPHILS 0 - 200 cells/uL 51 NEUTROPHILS % 51.8 LYMPHOCYTES % 36.3 MONOCYTES % 6.5 EOSINOPHILS % 4.3 BASOPHILS % 1.1 GLUCOSE 65 - 99 mg/dL 90 UREA NITROGEN (BUN) 7 - 25 mg/dL 11 CREATININE 0.50 - 0.96 mg/dL 0.63 EGFR > OR = 60 mL/min/1.73m2 127 SODIUM 135 - 146 mmol/L 138 POTASSIUM 3.5 - 5.3 mmol/L 4.0 CHLORIDE 98 - 110 mmol/L 105 CARBON DIOXIDE 20 - 32 mmol/L 23 ELECTROLYTE BALANCE 7 - 17 mmol/L (calc) 10 CALCIUM 8.6 - 10.2 mg/dL 8.9 PROTEIN, TOTAL 6.1 - 8.1 g/dL 7.2 ALBUMIN 3.6 - 5.1 g/dL 4.5 BILIRUBIN, TOTAL 0.2 - 1.2 mg/dL 0.4 ALKALINE PHOSPHATASE 31 - 125 U/L 53 AST 10 - 30 U/L 10 ALT 6 - 29 U/L 5 (L) IRON, TOTAL 40 - 190 mcg/dL 59 IRON BINDING CAPACITY 250 - 450 mcg/dL (calc) 391 % SATURATION 16 - 45 % (calc) 15 (L) HEMOGLOBIN A1c <5.7 % of total Hgb 5.1 eAG (mg/dL) mg/dL 100 eAG (mmol/L) mmol/L 5.5 TSH mIU/L 2.26 T4, FREE 0.8 - 1.8 ng/dL 1.2 FERRITIN 16 - 154 ng/mL 9 (L) MAGNESIUM 1.5 - 2.5 mg/dL 1.9 VITAMIN B12 200 - 1,100 pg/mL 341 Ferritin - cont daily - discussed check in 3 mo if concerns or can push out to 6 mo Vit D def with kaitlin testing - taking OTC Impression MDM 1) COMPLEXITY: MORE THAN 1 STABLE CHRONIC CONDITION ADDRESSED 2)DATA: TESTS INTERPRETED AND OR ORDERED, TOOK INDEPENDENT HISTORY OR RECORDS REVIEWED 3)RISK: MODERATE RISK DUE TO NATURE OF MEDICAL CONDITIONS/COMORBIDITY OR MEDICATIONS ORDERED OR SURGICAL OR PROCEDURE REFERRAL, . Reviewed labs and Testing on file Patient to follow diet low in cholesterol, fat, and sodium. Patient is advised to increase Exercise. Patient is recommended to lose weight. Reviewed Meds and discussed common side effects Continue as directed Patient is strongly advised to be compliant with recommendations. Return to Clinic sooner if needed. 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 Other Visit Diagnoses Codes Acute pain of right shoulder - Primary M25.511 Relevant Medications methylPREDNISolone (Medrol Dospak) 4 mg tablets ibuprofen 600 mg tablet Other Relevant Orders XR shoulder right 2+ views Vitamin D deficiency E55.9 Relevant Orders Vitamin D 25-Hydroxy,Total (for eval of Vitamin D levels) Acute right-sided thoracic back pain M54.6 Relevant Medications methylPREDNISolone (Medrol Dospak) 4 mg tablets ibuprofen 600 mg tablet Other Relevant Orders XR thoracic spine 2 views FU in 3-6 mo with labs at [facility] fasting and med check documented in this [facility] Work Phone: 1(925) 255-453303-13-2025 Radiology Diagnostic study note [facility] Imaging Services [address] [place], [place] [address] Pelvic w/ Transvaginal MR#: [id number] Acct: [id number] Name: JOHNY FREED Rep #: [id number] : 2000 F 24 From: Mason Quintanilla MD PCP: CURTIS Mena Status: REG CLI Study:Pelvic w/ Transvaginal Date of Exam: 12/24/24 Exam# [id number] Ordering Dr: Esme Christie MD PROCEDURE: PELVIC W/ TRANSVAGINAL REASON FOR EXAM: ABNORMAL UTERINE BLEEDING COMPARISON: None. TECHNIQUE: Transvaginal pelvic ultrasound. Color and spectral doppler analysis of the ovaries. FINDINGS: Uterus measures 9.6 x 5.7 x 4.6 cm. Nabothian cysts. Endometrium is 9 mm. Physiologic amount of free fluid in the pelvis. Right ovary measures 2.4 x 2.9 x 2.5 cm. The left measures 2.2 x 2.2 x 1.7 cm. Normal ovarian follicles. DOPPLER: Color Doppler: Normal color flow doppler signal at both ovaries. Spectral Doppler: Normal arterial inflow and venous outflow signal at both ovaries. US/Pelvic w/ Transvaginal IMPRESSION: NORMAL TRANSVAGINAL PELVIC ULTRASOUND WITH DOPPLER. Physiologic amount of free fluid Reading Location: [facility] CC: Dr. 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 February 8:18am [facility] Work Phone: 1(282) 523-436203-11-2025 Evaluation note* Diagnosis Onset Date Resolution Status Admit Date Rectocele acute December 22 9:31am Abnormal uterine bleeding inactive December 22, 2024 9:31am acute March 11, 2025 8:18am 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 February 8:18am Anxiety acute April 05 10:39am Asthma acute April 05 10:39am Autoimmune thyroiditis acute 2024 10:39am H/O herpes genitalis acute April 05, 2025 10:39am History of gestational diabe riky mellitus (GDM) acute April 05, 2025 10:39am History of gestational hypertension acute April 05, 2025 10:39am History of marijuana use acute April 05, 2025 10:39am Hx of shoulder dystocia in p rior , currently acute 2024 10:39am Migraine headache acute April 052024 10:39am acute April 05 10:39am Rectocele acute April 05 10:39am Rh negative state in antepar garth period acute April 05, 2025 10:39am Supervision of high-risk acute April 05, 2025 10:39am Chronic anemia chronic April 05, 2025 10:39am 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 March 10:39am [facility] Work Phone: 1([phone]) 359-688803-11-2025 Evaluation note* Diagnosis Onset Date Resolution Status Admit Date Rectocele acute December 22 9:31am Abnormal uterine bleeding inactive December 22, 2024 9:31am acute March 11, 2025 8:18am 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 February 8:18am Anxiety acute April 05 10:39am Asthma acute April 05 10:39am Autoimmune thyroiditis acute 2024 10:39am H/O herpes genitalis acute April 05, 2025 10:39am History of gestational diabe riky mellitus (GDM) acute April 05, 2025 10:39am History of gestational hypertension acute April 05, 2025 10:39am History of marijuana use acute April 05, 2025 10:39am Hx of shoulder dystocia in p rior , currently acute [facility] 2024 10:39am Migraine headache acute April 052024 10:39am Missed acute March 10:39am acute April 05 10:39am Rectocele acute April 05 10:39am Rh negative state in antepar garth period acute April 05, 2025 10:39am Supervision of high-risk acute April 05, 2025 10:39am Chronic anemia chronic April 05, 2025 10:39am 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 female who presents for Illness (HX ANEMIA VERY TIRED NO ENERGY, LEFT ANKLE HEEL PAINFUL) HPI Patient presents today for gen check up She has not been in office for a few years but has had a few virtual visits over the last few yearsgiven illness She would like gen labs Hx of anemia and thyroid issues and notes off symptoms She is unsure how much of this is being a mom of 2 young kids or something else She states her kids sleep through the night but she notes fatigue no matter how much sleep she getsor naps Will start with gen labs but Consider home sleep study Fatigue, morning fatigue, snoring, needing to use the bathroom in the middle of the night L heel and ankle pain x 1 month Pt states when sjhe first gets up its tight and painful but symptoms walk off in min Discussed likely plantar fascitis and possible achilles tendonitis Suggest NSAID x 5 days, ice, rest, stretches and monitor Xray if needed and consider therapy and /or pod referral if needed Med check Asthma - rescue inhaler prn Hypothyroid - on meds Preventative PAP Mammo DEXA Colon Fall - NEG NOV 2024 PHQ2 - NEG NOV 2024 Patient Active Problem List Diagnosis Depression, major, single episode, mild ([facility]) External hemorrhoids SOPHIA (generalized anxiety disorder) Genital herpes Intractable migraine without aura and with status migrainosus Iron deficiency anemia Low thyroid stimulating hormone (TSH) level Moderate persistent asthma without complication ([facility]) Seasonal allergies Thyroglossal cyst Thyroid pain Thyroiditis TMJ click Pleurisy Asthmatic bronchitis without complication ([facility]) Abscess Sivan's thyroiditis Acute non-recurrent maxillary sinusitis Nasal congestion Pelvic pain in female Review of Systems Constitutional: Positive for fatigue. Negative for chills and fever. HENT: Negative for congestion, rhinorrhea, sinus pain, sore throat and tinnitus. Eyes: Negative for discharge, redness and visual disturbance. Respiratory: Negative for cough, chest tightness, shortness of breath and wheezing. Cardiovascular: Negative for chest pain, palpitations and leg swelling. Gastrointestinal: Negative for abdominal pain, constipation, diarrhea, nausea and vomiting. Endocrine: Negative for cold intolerance and heat intolerance. Genitourinary: Negative for flank pain, frequency and urgency. Musculoskeletal: Positive for arthralgias. Negative for back pain, gait problem and neck pain. Skin: Negative for rash and wound. Neurological: Negative for dizziness, tremors, syncope, numbness and headaches. Hematological: Does not bruise/bleed easily. Psychiatric/Behavioral: Negative for confusion, sleep disturbance and suicidal ideas. Past Medical History: Diagnosis Date Allergic Anemia Anxiety Asthma Disease of thyroid gland Encounter for full-term uncomplicated delivery Normal vaginal delivery Encounter for gynecological examination (general) (routine) without abnormal findings Pap test, as part of routine gynecological examination Other conditions influencing health status Menstruation Other specified related conditions, unspecified trimester ([facility]) 10/31/2021 Rh negative, antepartum Personal history of other endocrine, nutritional and metabolic disease History of Sivan thyroiditis Personal history of other infectious and parasitic diseases 03/20/2021 History of herpes simplex infection Past Surgical History: Procedure Laterality Date MOUTH SURGERY THYROGLOSSAL DUCT EXCISION cyst TONSILLECTOMY Family History Problem Relation Name Age of Onset No Known Problems Mother No Known Problems Father Social History Tobacco Use Smoking status: Former Types: Cigarettes Smokeless tobacco: Never Vaping Use Vaping status: Never Used Substance Use Topics Alcohol use: Yes Comment: rare Drug use: Not Currently Allergies Allergen Reactions Hydrocodone Other Hydrocodone-Acetaminophen Other Hydrocodone-Guaifenesin Other Hydromorphone Other Latex Rash Current Outpatient Medications Medication Sig Dispense Refill levothyroxine (Synthroid, Levoxyl) 50 mcg tablet Take 1 tablet (50 mcg) by mouth early in the morning.. no115/iron/folic acid ( 19 ORAL) Take by mouth. albuterol (Ventolin HFA) 90 mcg/actuation inhaler Inhale 2 puffs every 4 hours if needed for wheezing or shortness of breath. 18 g 3 aspirin 81 mg EC tablet Take 1 tablet (81 mg) by mouth once daily. (Patient not taking: Reported on11/24/2024) nitrofurantoin (Macrodantin) 100 mg capsule TAKE 1 CAPSULE BY MOUTH TWICE DAILY for 3, 5 or 7 days (Patient not taking: Reported on 11/24/2024) valACYclovir (Valtrex) 500 mg tablet Take 1 tablet (500 mg) by mouth early in the morning.. (Patient not taking: Reported on 11/24/2024) No current facility-administered medications for this visit. Objective BP 112/78 Pulse 93 Ht 1.6 m (5' 3) Wt 64.6 kg (142 lb 6.4 oz) SpO2 98% BMI 25.23 kg/m Physical Exam Vitals reviewed. Constitutional: Appearance: Normal appearance. HENT: Head: Normocephalic. Right Ear: External ear normal. Left Ear: External ear normal. Nose: Nose normal. No congestion or rhinorrhea. Mouth/Throat: Mouth: Mucous membranes are moist. Eyes: Extraocular Movements: Extraocular movements intact. Conjunctiva/sclera: Conjunctivae normal. Pupils: Pupils are equal, round, and reactive to light. Cardiovascular: Rate and Rhythm: Normal rate and regular rhythm. Pulses: Normal pulses. Pulmonary: Effort: Pulmonary effort is normal. Breath sounds: Normal breath sounds. Abdominal: General: Bowel sounds are normal. Palpations: Abdomen is soft. Tenderness: There is no abdominal tenderness. There is no right CVA tenderness or left CVA tenderness. Musculoskeletal: General: Tenderness present. Normal range of motion. Cervical back: Normal range of motion and neck supple. No tenderness. Skin: General: Skin is warm and dry. Neurological: General: No focal deficit present. Mental Status: She is alert and oriented to person, place, and time. Psychiatric: Mood and Affect: Mood normal. Behavior: Behavior normal. Testing Reviewed labs done in 2023 Will order gen labs to be done in near future Impression MDM 1) COMPLEXITY: 1 UNDIAGNOSED NEW PROBLEM WITH UNCERTAIN PROGNOSIS 2)DATA: TESTS INTERPRETED AND OR ORDERED, TOOK INDEPENDENT HISTORY OR RECORDS REVIEWED 3)RISK: MODERATE RISK DUE TO NATURE OF MEDICAL CONDITIONS/COMORBIDITY OR MEDICATIONS ORDERED OR SURGICAL OR PROCEDURE REFERRAL, . Reviewed labs and Testing on file Patient to follow diet low in cholesterol, fat, and sodium. Patient is advised to increase Exercise. Patient is recommended to lose weight. Reviewed Meds and discussed common side effects Continue as directed Patient is strongly advised to be compliant with recommendations. Return to Clinic sooner if needed. 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 Relevant Orders Thyroid Stimulating Hormone Thyroxine, Free Other Visit Diagnoses Codes Fatigue, unspecified type - Primary R53.83 Diet controlled gestational diabetes mellitus (GDM) in third trimester ([facility]) O24.410 Relevant Orders CBC and Auto Differential Comprehensive Metabolic Panel Thyroid Stimulating Hormone Thyroxine, Free Iron and TIBC Ferritin Magnesium Vitamin B12 Hemoglobin A1C Pain of left heel M79.672 Relevant Orders XR calcaneus left 2 views Acute pain of left foot M79.672 Acute left ankle pain M25.572 Relevant Orders XR ankle left 2 views FU in 2-8 weeks with testing = labs and xrays documented in this [facility] Work Phone: 1(265) 264-528010-24-2024 History of Present illness Narrative* Roe Allan PA-C - 08/06/2024 4:40 PM EDT Subjective Patient ID: Johny Freed is a 24 y.o. female who presents for Pelvic Pain (Pelvic pain, lower back pain, difficulty urinating x 4 days ). HPI Patient presents for pelvic pain. Patient reports several days of bilateral pelvic pain, greater onthe right, with associated low back pain and some difficulty urinating. No fever, chills, nausea, or change in bowel or bladder habits otherwise. Patient does have a history of ovarian physiological cysts. No other complaints. Review of Systems Constitutional: See HPI Gastrointestinal: See HPI Genitourinary: See HPI Neurologic: Alert and oriented X4, No numbness, No tingling. All other systems are negative Objective BP 120/77 Pulse 78 Temp 36.9 C (98.5 F) Resp 16 Ht 1.6 m (5' 3) Wt 68 kg (150 lb) NiN202% BMI 26.57 kg/m Physical Exam General: Alert and oriented, No acute distress. Eye: Pupils are equal, round and reactive to light, Normal conjunctiva. HENT: Normocephalic, Neck: Supple Respiratory: Respirations are non-labored Musculoskeletal: Normal ROM and strength Integumentary: Warm, Dry, Intact, No pallor, No rash. Neurologic: Alert, Oriented, Normal sensory, Cranial Nerves II-XII are grossly intact Psychiatric: Cooperative, Appropriate mood & affect. Assessment/Plan Urinalysis is unremarkable. Patient appears nontoxic and stable. Patient advised however that abdominal pain can only truly be evaluated in the ER and is encouraged to go there. Patient also wants towait for the culture results to initiate any antibiotic therapy. Patient's clinical presentation isotherwise unremarkable at this time. Patient is discharged with instructions to follow-up with primary care or seek emergency medical attention for worsening symptoms or any new concerns. Problem List Items Addressed This Visit None Visit Diagnoses Dysuria - Primary Relevant Orders Urine Culture POCT UA Automated manually resulted Final diagnoses: [R30.0] Dysuria documented in this [facility] Work Phone: 1(244) 475-128604-09-2024 NotePap Smear Specimen AdequacyApril 2023 11:57amComment.Satisfactory for evaluation. Endocervical and/or squamous metaplasticcells (endocervical component)are present.[facility] INTER[facility]ACED A#[id number] University Of Toledo Medical CenterComment on above:Satisfactory for evaluation. Endocervical and/or squamous metaplasticcells (endocervical component)are present.12-13-2023 Discharge summary Author Esme Baker [facility] December 13, 2023 1:53am Note Date/Time December 13, 2023 1:53 am [facility] Medical Records Department [address] [place] [address] Instructions for Home/Discharge Instructions 12/13/23 0153 MR#: [id number] Acct: [id number] Name: JOHNY FREED Rep #:[id number] : 2000 23 From: Esme madrid MD PCP: CURTIS Mena Status:ADM IN Discharge Instructions Diet Discharge Diet: No restrictions Activity Discharge Activity: Return to Normal Activity, May Not Drive (while taking narcotic pain medications.) and May Shower May resume sexual activity in: 4-6 weeks Dressing / Incision Call your doctor if your incision/area has: Continuous Slow Oozing, Sudden Increased Bleeding, Increased Pain/ Swelling, Increased Redness and Foul Smelling Discharge Follow Up Care Please Follow Up With: Esme Baker MD When: Call [phone] to make an appointment with your doctor in 6 weeks. If you had elevated blood pressure or 4th degree laceration, you will need to be seen in 2 weeks. Test Results: Test results from this visit will be discussed in further detail at your follow- up appointment, if applicable. Discharge Plan Admission Admit Date/Time: 12/12/23 14:50 Attending Provider: Esme Baker Primary Care Provider: Chrystal Alamo Discharge Orders/Prescriptions Prescriptions: No Action PNV-[place] 28-1-300 mg capsule 1 cap PO DAILY aspirin 81 mg tablet,delayed release (DR/EC) 81 mg PO DAILY (DME) FreeStyle Sanjay 2 [place] Misc See Rx Instructions .Route Qty: 1 0RF Rx Instructions: As directed ferrous sulfate [FeroSul] 325 mg (65 mg iron) tablet 325 mg PO DAILY (DME) Blood Glucose Test Strip See Rx Instructions .MEDSUPPLY Qty: 120 5RF Rx Instructions: As directed-fasting & 2 hr post meals (DME) blood-glucose meter Misc See Rx Instructions .MEDSUPPLY Qty: 1 0RF Rx Instructions: As directed- Test fasting and 2 hours after meals (DME) lancets Misc See Rx Instructions .MEDSUPPLY Qty: 200 5RF Rx Instructions: As directed-fasting & 2 hr post meals (DME) FreeStyle Sanjay 2 Sensor Kit See Rx Instructions .Route Qty: 1 0RF Rx Instructions: As directed valacyclovir 500 mg tablet 500 mg PO QDAY Qty: 30 6RF Referrals / Follow Up: Chrystal Alamo PA [Primary Care Provider] - Disposition Disposition (needs filled in before D/C Order can be placed): Home, Self Care 12/13/23 0153<Electronically signed by Esme Baker MD>Esme Baker MD CC: CURTIS Mena ~ Signed [facility] Work Phone: 1(983) 226-970903-01-2024 Progress note Author Esme Baker [facility] December 13, 2023 12:16am Note Date/Time December 13, 2023 12:1 6am [facility] Medical Records Department [address] [place] [id number] Progress Note 12/13/2313 MR#: [id number] Acct: [id number] Name: JOHNY FREED Rep #:[id number] : 2000 23 From: Esme madrid MD PCP: CURTIS Mena Status:ADM IN Location: [id number] Progress Note arom clear fluid, indwelling rincon placed. cat I tracing, iupc placed. pit perprotocol. 5-6/70/-2 clear fluid. exp management 12/13/23 0016 <Electronically signed by Esme Baker MD> Esme Baker MD Cosigner Signature (if applicable): CC: ~ Signed [facility] Work Phone: 1(343) 319-546603-01-2024 History and physical note Author Esme Baker [facility] December 13, 2023 12:14am Note Date/Time December 13, 2023 12:1 4am [facility] Medical Records Department [address] [place] [address] History & Physical Exam 12/13/23 0014 MR#: [id number] Acct: [id number] Name: JOHNY FREED Rep #:[id number] : 2000 23 From: Esme madrid MD PCP: CURTIS Mena Status:ADM IN Location: VC179-4 History and Physical Date of Admission: 12/12/23 Vital Signs 11/14/2409:46 12/05/2412:57 :25 :27 Height 5 ft 3 in 5 ft 3 in 5 ft 3 in 5 ft 3 in Weight: 194 lb BMI 34.3 BP 112/77 Intake Visit Reasons: 37 WK OB [employer] Required: No Is patient in pain?: No Allergies Latex, Natural Rubber Allergy (Mild, Verified 12/12/23 14:25) Itchingacetaminophen [From Vicodin] Allergy (Verified 12/12/23 14:25) otherhydrocodone [From Vicodin] Allergy (Verified 12/12/23 14:25) otherhydromorphone [From Dilaudid] Adverse Reaction (Intermediate, Verified 12/12/23 14:25) passed out Medications multivit-min no.71-iron fum 28 mg-folate no.1 1 mg-dha 300 mg capsule (PNV- [place]) 1 cap PO DAILY 05/16/23 [History Confirmed 12/12/23] aspirin 81 mg tablet,delayed release 81 mg PO DAILY 08/08/23 [History Confirmed 12/12/23] ferrous sulfate 325 mg (65 mg iron) tablet (FeroSul) 325 mg PO DAILY 10/16/23 [History Confirmed 12/12/23] blood sugar diagnostic (Blood Glucose Test strips) #120 ea 10/25/23 [Rx Confirmed 12/12/23] blood-glucose meter #1 ea 10/25/23 [Rx Confirmed 12/12/23] lancets #200 ea 10/25/23 [Rx Confirmed 12/12/23] flash glucose scanning reader (PartnerpediaStyle Sanjay 2 [place]) #1 ea 10/30/23 [Rx Confirmed 12/12/23] flash glucose sensor (FreeStyle Sanjay 2 Sensor kit) #1 ea 10/30/23 [Rx Confirmed 12/12/23] valacyclovir 500 mg tablet 500 mg PO QDAY #30 tabs 12/03/23 [Rx Confirmed 12/12/23] Last Menstrual Period: 03/28/23 Zika: Zika virus screening: Negative : No PFSH PFSH Medical History Abnormal glucose affecting H/O herpes genitalis Shoulder dystocia during labor and delivery Surgical History History of throat surgery History of tonsillectomy [place] teeth extracted Family History Grandmother Ovarian cancer great grandmother Social History adopted: No household members: spouse and children number of children: 1 current occupational status: unemployed pets and animals: Yes pets and animals: dog(s) history of recent travel: No sexually active: Yes Smoking Status: Former smoker quit date: 03/15/21 pack-years: 4 alcohol intake: never substance use type: does not use well-balanced diet: daily or most days caffeine: No eating out: 1-3 times/week during the past year weight has: remained stable what type of physical activity do you participate in: walking frequency: daily duration: 30-45 minutes/day stacey/taoism: Temple seatbelt use: always do you feel safe at home: Yes additional social history: Shawn Torres History 2 Elective abortions Hx Para 1 Spontaneous abortions Hx # Term Pregnancies Ectopic pregnancies Hx # Pregnancies Multiple births # of living children 1 Past Pregnancies Del. Date Name GA/Weeks Outcome Route Bth Weight Gen Labor Lgth Anesthesia Del Locatn Provider FOB 11/07/21 Tye 39 live - full term 8#6oz Mal e epidural [facility] Dr. Jordon Snyder Eddiesaadia Delivery Date: 11/07/21 Last Updated by: Esme Baker MD IOL- small pelvis, shoulder dystocia and clavicle fracture HPI 37 WK OB Details: JOHNY FREED is a 23 year old who presents for routine OB visit. OB Visit STARR Calculator Estimated Delivery Date Method Current WG Current Estimate 01/02/24 LMP (Certain) 37w 0d Expected Delivery Route/Plan Labor Preferences- CB/BF classes: [] labor support person: [] labor intervention preferences: [] pain management options preferred: [] cut cord/dad catch: [] : [] PP control planned: [] discussed possible routes of delivery and associated risks: [] special requests: [] Specific Issue/Plans Covid status: [] Flu vaccine: declines Tdap vaccine: declineds Rhogam: given 28 weeks LARC form signed: declined Problem list reviewed and u movement and labor precautions reviewed. updated with the most current plan of care details and appropriate orders placed. Relevant counseling for the gestational age provided. Continue routine care and follow up unless otherwise noted in visit notes/problem list details Initial Weight: Not Recorded Date -?-?-?-?-?-?-?-?-?-?-?-?- EGA Weight BP Urine Prot -?-?-?-?-?-?-?-?-?-?-?-?- Glucose FHR FuHt Pres Dilation -?-?-?-?-?-?-?-?-?-?-?-?- Effaced St Visit Note 05/27/23-?-?-?-?-?-?-?-?-?-?-?-?- 8w 4d 136 lb 2 oz 121/73 -?-?-?-?-?-?-?-?-?-?-?-?- 175 -?-?-?-?-?-?-?-?-?-?-?-?- SM- CRL cons with LMP 06/26/23-?-?-?-?-?-?-?-?-?-?-?-?- 12w 6d 143 lb 116/69 Negative -?-?-?-?-?-?-?-?-?-?-?-?- Negative 170 -?-?-?-?-?-?-?-?-?-?-?-?- JV- no cramping or spotting. no complaints. tSH, free t4, TPO ordered. declines NIPT. 07/26/23-?-?-?-?-?-?-?-?-?-?-?-?- 17w 1d 151 lb 117/73 Negative -?-?-?-?-?-?-?-?-?-?-?-?- Negative 153 -?-?-?-?-?-?-?-?-?-?-?-?- KW- no vb/lof/cramping. + flutters. US scheduled. Declines AFP and flu shot 09/16/23-?-?-?-?-?-?-?-?-?-?-?-?- 24w 4d 176 lb 2 oz 118/68 Negative -?-?-?-?-?-?-?-?-?-?-?-?- Negative 138 -?-?-?-?-?-?-?-?-?-?-?-?- MH-No VB, LOF. Good FM. Noting weight gain, edema in ankles, episodes of dizziness, racing heart. enc eat more frequently, stand slowly, high protein low sugar/carb foods. Pre E labs today. No edema today 10/17/23-?-?-?-?-?-?-?-?-?-?-?-?- 29w 0d 186 lb 6 oz 121/80 Negative -?-?-?-?-?-?-?-?-?-?-?-?- Negative 140 30 -?-?-?-?-?-?-?-?-?-?-?-?- KW-no vb/lof/ctx. good fm. Declines Tdap. LARC and Rhogam today. IV infusion tomorrow for anemia. Fainted yesterday and went to ER KW-no vb/lof/ctx. good fm. Declines Tdap. LARC and Rhogam today. IV infusion tomorrow for anemia. Fainted yesterday and went to ER-vasovagal episode. 28 week labs today. HGB 9.4 today 10/30/23-?-?-?-?-?-?-?-?-?-?-?-?- 30w 6d 186 lb 6 oz 117/71 Negative -?-?-?-?-?-?-?-?-?-?-?-?- Negative 140 30 -?-?-?-?-?-?-?-?-?-?-?-?- JV- starting glucose monitoring, has some elevated fastings. needs to see nutrition. will try to order continuous monitoring. had infusion reaction to iron, will go back to po iron + vit c and will try chlorophyll. rpt cbc beginning of nov. deciding cs vag del. has h/o shoulder dystocia 11/14/23-?-?-?-?-?-?-?-?-?-?-?-?- 33w 0d 189 lb 6 oz 124/74 Negative -?-?-?-?-?-?-?-?-?-?-?-?- Negative 140 34 Cephalic -?-?-?-?-?-?-?-?-?-?-?-?- SM- no vb lof good fm no regular ctx, extensive counseling rearding primary csection or vaginal delivery. SM- no vb lof good fm no regular ctx, extensive counseling rearding primary csection or vaginal delivery. BS controlled 11/26/23-?-?-?-?-?-?-?-?-?-?-?-?- 34w 5d Negative -?-?-?-?-?-?-?-?-?-?-?-?- Negative 140 36 Cephalic -?-?-?-?-?-?-?-?-?-?-?-?- KW-no vb/lof/ctx. good fm. BS controlled and has growth US scheduled for next . 12/05/23-?-?-?-?-?-?-?-?-?-?-?-?- 36w 0d 190 lb 104/72 -?-?-?-?-?-?-?-?-?-?-?-?- 140 37 Cephalic 1-?-?-?-?-?-?-?-?-?- ?-?-?- SM- no vb lof good fm n oregular ctx 12/12/23-?-?-?-?-?-?-?-?-?--?-?-?- 37w 0d 194 lb 112/77 -?-?-?-?-?-?-?-?-?-?-?-?- 150 Cephalic 1-?-?-?-?-?-?-?-?-?-?-?-?- 20 -4 SM- bedside SHARMILA 2cm and d ecreased fm the last 4 days, recommend immediate IOL. dicsussed EFW 6lb 10 ounces, previous SD with 8lb 6 ounces. ACOG First Trimester First Trimester: Desire for , Alcohol, Tobacco Cessation, Illicit/Recreational Drug/Substance Use, Intimate Partner Violence, Barriers to care, Unstable Housing, Communication Barriers, Environmental/Work Hazards, Anticipated Course of Care, Toxoplasmosis Precations, Use of Any medications, Sexual activity, Exercise, Dental Care, Sauna/Hot tub use, Seat Belt use, Childbirth classes/Hospital facilities, , Travel, Indications for Ultrasound and Screening for Aneuploidy Second Trimester Second Trimester: Signs and Symptoms of Labor, Selecting a care provider, Reproductive Life Planning & Contreception, Care Planning, Depression/Anxiety and Intimate Partner Violence; Discussed Tobacco Cessation Third Trimester Third Trimester: Pain Management Plans, Labor support person(s), Immediate Larc, Movement Monitoring, Signs and Symptoms of Preeclampsia and [place] Education ROS Const Reports system reviewed and no additional complaints, except as documented Card Reports system reviewed and no additional complaints, except as documented Resp Reports system reviewed and no additional complaints, except as documented GI Reports system reviewed and no additional complaints, except as documented and Reports nausea Reports system reviewed and no additional complaints, except as documented Musc Reports system reviewed and no additional complaints, except as documented Exam Const General: cooperative, healthy appearing, comfortable and anxious HENFL Head: normal to inspection Nose: external nose normal Face and sinus: normal facial exam Neck Neck: normal visual inspection, full ROM and no lymphadenopathy Thyroid: thyroid normal Chest Chest palpation & inspection: normal inspection of the chest Resp Effort & Inspection: normal respiratory effort GI Inspection: normal to inspection Palpation: soft and other (gravid uterus) Other: infant vertex and appropriate size for gestational age Other: Cervical Exam: Extrem General: pedal edema Coding Level of Care Code OB Routine Diagnoses Gestational diabetes mellitus (GDM) affecting , antepartum O24.419 Anemia in preg-unspec O99.019 History of proteinuria syndrome Z87.448 H/O herpes genitalis Z86.19 History of shoulder dystocia with result of fractured clavicle of infant in prior , currently in second trimester O09.292 Trimester: second trimester Rh negative status during in second trimester O26.892; Z Trimester: second trimester 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 (3) History of proteinuria syndrome: Status: Acute Comment: 1st . States not dx pre E but had elevated BP in labor/no meds and proteinuria. baseline labs normal (4) H/O herpes genitalis: Status: Acute Comment: plan valtrex around delivery (5) History of difficult shoulder delivery, resulting in fractured clavicle of , currently : Status: Acute Qualifiers: Trimester: second trimester Qualified Code(s): O09.292 - Supervision of with other poor reproductive or obstetric history, second trimester Comment: discussed primary LTCS next delivery vs , patient prefers if able. EFW almost 2 lbs less than previous, plan trial of labor. had 90lb weight gain, preeclampsia, discussed healthy weight gain and recommend growth US in third trimester, nl 36 wk growth US and consider IOL 39 weeks. (6) Rh negative status during : Status: Acute Qualifiers: Trimester: second trimester Qualified Code(s): O26.892 - Other specified related conditions, second trimester; Z - Unspecified blood type, Rh negative Comment: rhogam @ 28 wks & Prn bleeding (7) Sivan's disease: Status: Chronic (8) Asthma: Status: Acute Comment: allergy induced (9) Supervision of high-risk : Status: Acute Qualifiers: Trimester: second trimester Qualified Code(s): O09.92 - Supervision of high risk , unspecified, second trimester Comment: [id number], STARR 01/02/24 PC Tye, Shawn (10) : Status: Acute Qualifiers: Weeks of gestation: 37 weeks Qualified Code(s): Z3A.37 - 37 weeks gestation of Comment: GBS Negative, declined genetic & carrier testing, 36 wk nl growth (11) Oligohydramnios in third trimester: Status: Acute Comment: proceed with IOL Orders: Orders POC Urinalysis 2 Dip (Clinic) Today Plan Patient presents IOL, plan management for with fb pit. Pain management: plans epidural. GBS neg. Management of any complications: monitor BS, discussed risks of SD recurrence, mitigating strategies to reduce likeliihood., patient wishes to proceed with trial of labor I have reviewed the [facility] and made any clinically relevant updates. 12/13/2313 <Electronically signed by Esme Baker MD> Cosigner Signature (if applicable): CC: Dr. Esme Baker MD; CURTIS Mena~ Signed [facility] Work Phone: 1(828) 576-712303-01-2024 Procedure [facility] 10-18-2023 History of Present illness Narrative* Alexa Lancaster, [employer]ATOR - 10/18/2023 2:40 PM EST Subjective Patient ID: Johny Freed is a 23 y.o. female who presents [...] [facility] Work Phone: 1(382) 297-232901-03-2024 Discharge summary Author Fermín Rodrigues [facility] October 16, 2023 9:13pm Note Date/Time October 16, 2023 9: 05pm [facility] Medical Records Department [address] [place] [address] Emergency Department Summary 10/16/23 MR#: [id number] Acct: [id number] Name: JOHNY FREED Rep #:[id number] : 2000 23 From: Fermín Rodrigues MD PCP: CURTIS Mena Status:REG ER Location: ED HPI History of Present Illness Chief Complaint: Syncope Detail of Chief Complaint: Syncopal episode Informant: patient Onset/Context/Timing Onset: Today and Hours Context: Sudden Onset Timing: Intermittent Quality: Change in vision, felt warm, nauseous and passed out. Endorsed diaphoresis Location: Infusion center Current Severity: Gone Maximum Severity: Moderate Worsened by: Nothing Relieved by: Not applicable Associated Symptoms Associated Symptoms: Vasovagal response. Narrative Narrative: Patient is a 23-year-old G2, P1 female who is in her third trimester . She is seen by Dr. Esme Baker. 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 She also had frequent syncopal episodes. She was referredto pediatric lpn. Table tilt test was never performed.. Patient has history of anemia. She is scheduled for iron infusion. She required iron infusion during her first . She denies black or maroon-colored stool. Patient denies fever or chills. Patient denies night sweats. Patient Nuys headache, visual, ocular auditory symptoms. Patient denies chest discomfort or pleuritic pain. Patient denies dyspnea or dyspnea on exertion. Patient denied abdominal pain. She did endorse nausea without vomiting or diarrhea. She denies black or maroon-colored stool. She does endorse frequency without urgency, dysuria or hematuria. Per old records with a history of proteinuria. Prior similar symptoms: Yes Recent Illness/Hospitalization: No PFSH PFSH Medical History H/O herpes genitalis Shoulder dystocia during labor and delivery Home Medications multivit-min no.71-iron fum 28 mg-folate no.1 1 mg-dha 300 mg capsule (PNV- [place]) 1 cap PO DAILY 05/16/23 [History Last Taken Unknown] aspirin 81 mg tablet,delayed release 81 mg PO DAILY 08/08/23 [History Last Taken Unknown] ferrous sulfate 325 mg (65 mg iron) tablet (FeroSul) 325 mg PO DAILY 10/16/23 [History Last Taken Unknown] Allergy/AdvReac Type Severity Reaction Status Date / Time Latex, Natural Rubber Allergy Mild Itching Verified 09/16/23 15:24 hydromorphone [From Dilaudid] AdvReac Intermediate passed out Verified 09/16/23 15:24 Family History Grandmother Ovarian cancer great grandmother Surgical History History of throat surgery History of tonsillectomy [place] teeth extracted Social History adopted: No household members: spouse and children number of children: 1 current occupational status: unemployed pets and animals: Yes pets and animals: dog(s) history of recent travel: No sexually active: Yes Smoking Status: Former smoker quit date: 06/02/21 pack-years: 4 alcohol intake: never substance use type: does not use well-balanced diet: daily or most days caffeine: No eating out: 1-3 times/week during the past year weight has: remained stable what type of physical activity do you participate in: walking frequency: daily duration: 30-45 minutes/day stacey/taoism: Temple seatbelt use: always do you feel safe at home: Yes additional social history: Shawn Torres ROS ROS ED Constitutional Constitutional ED: Denies chills, fever(s), subjective or sweats Eyes Eyes: Reports change in vision bilateral; Denies blurry vision or diplopia ENT ENT ED: Denies ear pain, rhinorrhea or sore throat Cardiovascular Cardiovascular: Reports racing heartbeat; Denies chest pain, orthopnea, palpitations or paroxysmal nocturnal dyspnea Respiratory/Chest Respiratory/Chest: Denies cough, dyspnea, dyspnea on exertion, orthopnea or paroxysmal nocturnal dyspnea Gastrointestinal Gastrointestinal: Reports nausea; Denies abdominal pain, diarrhea, melena or vomiting Genitourinary Genitourinary ED: Denies dysuria, hematuria or urinary frequency Musculoskeletal Musculoskeletal: Denies arthralgias, back pain or myalgias Integumentary Denies rash Neurologic Neurologic: Reports weakness; Denies headache(s) or paresthesias Psychiatric Psychiatric: Denies anxiety Endocrine Endocrinology: Denies cold intolerance or heat intolerance Hematologic/Lymphatic Hematologic/Lymphatic: Reports systems reviewed and no addt'l complaints, exceptas documented Allergic/Immunologic Allergic/Immunologic ED: Denies mouth swelling or tongue swelling EXAM Physical Exam Narrative Exam Narrative: Vital signs noted. Orthostatic vital signs are normal. She is tachycardic. Const Vital Signs: 10/16/23 17:51 10/16/23 18:42 10/16/23 19:19 Temperature 97.4 F L Temperature Source Temporal Pulse Rate 111 H 91 Pulse Rate [Lying] Pulse Rate [Sitting (for 1 minute prior to obtaining)] Pulse Rate [Standing (for 1 minute prior to obtaining)] Respiratory Rate 16 19 H Respiratory Effort Normal Respiratory Pattern Normal Blood Pressure 115/66 116/70 Blood Pressure [Lying] Blood Pressure [Sitting (for 1 minute prior to obtaining)] Blood Pressure [Standing (for 1 minute prior to obtaining)] Blood Pressure Mean 82 85 Blood Pressure Mean [Lying] Blood Pressure Mean [Sitting (for 1 minute prior to obtaining)] Blood Pressure Mean [Standing (for 1 minute prior to obtaining)] Pulse Ox 99 Oxygen Delivery Method Room Air 10/16/23 19:20 Temperature Temperature Source Pulse Rate Pulse Rate [Lying] 90 Pulse Rate [Sitting (for 1 minute prior to obtaining)] 90 Pulse Rate [Standing (for 1 minute prior to obtaining)] 120 H Respiratory Rate Respiratory Effort Respiratory Pattern Blood Pressure Blood Pressure [Lying] 114/66 Blood Pressure [Sitting (for 1 minute prior to obtaining)] 113/75 Blood Pressure [Standing (for 1 minute prior to obtaining)] 114/78 Blood Pressure Mean Blood Pressure Mean [Lying] 82 Blood Pressure Mean [Sitting (for 1 minute prior to obtaining)] 87 Blood Pressure Mean [Standing (for 1 minute prior to obtaining)] 90 Pulse Ox Oxygen Delivery Method Positive well nourished and well developed General Appearance ED: well developed, NAD and pallor; Negative for cyanotic or diaphoretic HEENT Reports moist mucous membranes HEENT Narrative: Head is atraumatic normocephalic. Ears normal. Nares patent. Mucosa is moist. Uvula is midline. Eyes PERRL and EOMs intact bilaterally General Eye ED: Negative for pale conjunctiva or scleral icterus Neck no lymphadenopathy, supple and no JVD Resp normal respiratory effort and clear to auscultation bilaterally Cardio regular rate, regular rhythm, S1 normal heart sound, S2 normal heart sound and no murmurs GI normal to inspection, nondistended, normoactive bowel sounds, non-tender, non-distended and no masses; Negative for hepatosplenomegaly GI Narrative: Gravid uterus approximately fingerbreadths above the Umbilicus. Positive heart rate. Mother states she feels the fetus moving. Palpation: soft Back/Spine no CVA tenderness Thoracic Spine / Upper Back: Negative for thoracic spinal tenderness Lumbar Spine / Lower Back: Negative for lumbar spinal tenderness Extremity normal to inspection General Extremety ED: Negative for edema or tenderness General Extremity: Negative for edema Neuro oriented x3, CN's II-XII intact bilaterally and no sensory deficits noted Sensorium / Orientation: alert Motor Exam: strength 5/5 throughout Psych mental status grossly normal Mood & Affect: Negative for depressed or anxious Skin no rashes or lesions noted, no wounds and skin turgor normal Skin Narrative: Patient has erythema in the creases of her palm. General Skin Exam: pallor; Negative for elasticity normal or jaundice MDM MDM MDM Narrative Medical decision making narrative: With history of anemia requiring iron transfusion and history of anemia during will obtain CBC to assess H&H suspect to be approximately 10 Suspect. Orthostatic vital signs were performed which were negative. Patient's history and physical exam is consistent with vasovagal syncopal episode. EKG was obtained to assess for evidence of preexcitation syndrome i.e. WPW, Berg Long Ganong syndrome, short MS interval, prolonged QT duration etc. Lab Data Attestation: I reviewed the patient's lab results. Lab results narrative: Hemoglobin is 9.9 with hematocrit 29.4. Indices are normal. Differential is normal. UA reveals ketones. There is no proteinuria or hematuria noted. Labs: Laboratory Results - last 24 hr 10/16/23 10/16/23 18:15 18:38 WBC 10.4 RBC 3.53 L Hgb 9.9 L Hct 29.4 L MCV 83.3 MCH 28.0 MCHC 33.7 RDW Std Deviation 36.4 RDW Coeff of Lis 12.0 Plt Count 294 MPV 9.5 Immature Gran % (Auto) 1.900 H Neut % (Auto) 72.3 H Lymph % (Auto) 16.6 L Bailey % (Auto) 6.4 Eos % (Auto) 2.2 Baso % (Auto) 0.6 Absolute Neuts (auto) 7.5 Absolute Lymphs (auto) 1.73 Nucleated RBC % 0 Urine Color Yellow Urine Clarity Clear Urine pH 6.5 Ur Specific [place] 1.010 Urine Protein Negative Urine Glucose (UA) Normal Urine Ketones 15 H Urine Occult Blood Negative Urine Nitrite Negative Urine Bilirubin Negative Urine Urobilinogen Normal Ur Leukocyte Esterase Negative Urine RBC 0 SEEN Urine WBC 0 SEEN Ur Squamous Epith Cells 0-5 SEEN Urine Bacteria 0 SEEN Urine Mucus 0 SEEN Treatment and Re-Evaluation :: With normal orthostatic vital signs history of syncope will discharge with syncopal episode instructions. Will refer to cardiology for possible table tilttest since patient's had multiple syncopal episodes. She had many more when shewas younger. Discharge Plan Triage Chief Complaint: Syncope ED Provider: Fermín Rodrigues Dx/Rx/DC Orders Clinical Impression: Ketosis, Syncopal episodes, Sivan's disease, Rh negative status during , Anemia in preg-unspec Instructions: Anemia During , ED Fainting, Vagal Reaction Prescriptions: No Action PNV-[place] 28-1-300 mg capsule 1 cap PO DAILY aspirin 81 mg tablet,delayed release (DR/EC) 81 mg PO DAILY ferrous sulfate [FeroSul] 325 mg (65 mg iron) tablet 325 mg PO DAILY Primary Care Provider: Chrystal Alamo Referrals: Esme Baker MD [Med Staff - Active Staff] - 5-7 Days Chrystal Alamo PA [Primary Care Provider] - Disposition Disposition: Home, Self Care What to do if you have Problems For any increased pain, shortness of breath, bleeding, nausea or vomiting, chestpain, or any unexpected problems, contact your Primary Care Provider. Call [facility] ([phone]) or report to the closest Emergency Room. Call 911 if necessary. 10/16/232112 <Electronically signed by Fermín Rodrigues MD> Cosigner Signature (if applicable): CC: CURTIS Mena ~ Signed [facility] Work Phone: 1(212) 923-855501-03-2024 Discharge summary Author Fermín Rodrigues [facility] October 16, 2023 9:14pm Note Date/Time October 16, 2023 9: 14pm [facility] Medical Records Department [address] [place] [address] Emergency Department Summary 10/16/23 MR#: [id number] Acct: [id number] Name: JOHNY FREED Rep #:[id number] : 2000 23 From: Fermín Rodrigues MD PCP: CURTIS Mena Status:REG ER Location: ED HPI History of Present Illness Chief Complaint: [facility]yncope [facility] Medical History H/O herpes genitalis Shoulder dystocia during labor and delivery Home Medications multivit-min no.71-iron fum 28 mg-folate no.1 1 mg-dha 300 mg capsule (PNV- [place]) 1 cap PO DAILY 05/16/23 [History Last Taken Unknown] aspirin 81 mg tablet,delayed release 81 mg PO DAILY 08/08/23 [History Last Taken Unknown] ferrous sulfate 325 mg (65 mg iron) tablet (FeroSul) 325 mg PO DAILY 10/16/23 [History Last Taken Unknown] Allergy/AdvReac Type Severity Reaction Status Date / Time Latex, Natural Rubber Allergy Mild Itching Verified 09/16/23 15:24 hydromorphone [From Dilaudid] AdvReac Intermediate passed out Verified 09/16/23 15:24 Family History Grandmother Ovarian cancer great grandmother Surgical History History of throat surgery History of tonsillectomy [place] teeth extracted Social History adopted: No household members: spouse and children number of children: 1 current occupational status: unemployed pets and animals: Yes pets and animals: dog(s) history of recent travel: No sexually active: Yes Smoking Status: Former smoker quit date: 03/15/21 pack-years: 4 alcohol intake: never substance use type: does not use well-balanced diet: daily or most days caffeine: No eating out: 1-3 times/week during the past year weight has: remained stable what type of physical activity do you participate in: walking frequency: daily duration: 30-45 minutes/day stacey/taoism: Temple seatbelt use: always do you feel safe at home: Yes additional social history: Shawn Torres EXAM Physical Exam Const Vital Signs: 10/16/23 17:51 10/16/23 18:42 10/16/23 19:19 Temperature 97.4 F L Temperature Source Temporal Pulse Rate 111 H 91 Pulse Rate [Lying] Pulse Rate [Sitting (for 1 minute prior to obtaining)] Pulse Rate [Standing (for 1 minute prior to obtaining)] Respiratory Rate 16 19 H Respiratory Effort Normal Respiratory Pattern Normal Blood Pressure 115/66 116/70 Blood Pressure [Lying] Blood Pressure [Sitting (for 1 minute prior to obtaining)] Blood Pressure [Standing (for 1 minute prior to obtaining)] Blood Pressure Mean 82 85 Blood Pressure Mean [Lying] Blood Pressure Mean [Sitting (for 1 minute prior to obtaining)] Blood Pressure Mean [Standing (for 1 minute prior to obtaining)] Pulse Ox 99 Oxygen Delivery Method Room Air 10/16/23 19:20 Temperature Temperature Source Pulse Rate Pulse Rate [Lying] 90 Pulse Rate [Sitting (for 1 minute prior to obtaining)] 90 Pulse Rate [Standing (for 1 minute prior to obtaining)] 120 H Respiratory Rate Respiratory Effort Respiratory Pattern Blood Pressure Blood Pressure [Lying] 114/66 Blood Pressure [Sitting (for 1 minute prior to obtaining)] 113/75 Blood Pressure [Standing (for 1 minute prior to obtaining)] 114/78 Blood Pressure Mean Blood Pressure Mean [Lying] 82 Blood Pressure Mean [Sitting (for 1 minute prior to obtaining)] 87 Blood Pressure Mean [Standing (for 1 minute prior to obtaining)] 90 Pulse Ox Oxygen Delivery Method MDM MDM Lab Data Labs: Laboratory Results - last 24 hr 10/16/23 10/16/23 18:15 18:38 WBC 10.4 RBC 3.53 L Hgb 9.9 L Hct 29.4 L MCV 83.3 MCH 28.0 MCHC 33.7 RDW Std Deviation 36.4 RDW Coeff of Lis 12.0 Plt Count 294 MPV 9.5 Immature Gran % (Auto) 1.900 H Neut % (Auto) 72.3 H Lymph % (Auto) 16.6 L Bailey % (Auto) 6.4 Eos % (Auto) 2.2 Baso % (Auto) 0.6 Absolute Neuts (auto) 7.5 Absolute Lymphs (auto) 1.73 Nucleated RBC % 0 Urine Color Yellow Urine Clarity Clear Urine pH 6.5 Ur Specific [place] 1.010 Urine Protein Negative Urine Glucose (UA) Normal Urine Ketones 15 H Urine Occult Blood Negative Urine Nitrite Negative Urine Bilirubin Negative Urine Urobilinogen Normal Ur Leukocyte Esterase Negative Urine RBC 0 SEEN Urine WBC 0 SEEN Ur Squamous Epith Cells 0-5 SEEN Urine Bacteria 0 SEEN Urine Mucus 0 SEEN Discharge Plan Triage Chief Complaint: Syncope ED Provider: Fermín Rodrigues Dx/Rx/DC Orders Clinical Impression: Ketosis, Syncopal episodes, Sivan's disease, Rh negative status during , Anemia in preg-unspec Instructions: Anemia During , ED Fainting, Vagal Reaction Prescriptions: No Action PNV-[place] 28-1-300 mg capsule 1 cap PO DAILY aspirin 81 mg tablet,delayed release (DR/EC) 81 mg PO DAILY ferrous sulfate [FeroSul] 325 mg (65 mg iron) tablet 325 mg PO DAILY Primary Care Provider: Chrystal Alamo Referrals: Yudelka Mcgowan MD [Med Staff - Active Staff] - 1-2 Weeks Esme Baker MD [Med Staff - Active Staff] - 5-7 Days Chrystal Alamo PA [Primary Care Provider] - Disposition Disposition: Home, Self Care What to do if you have Problems For any increased pain, shortness of breath, bleeding, nausea or vomiting, chestpain, or any unexpected problems, contact your Primary Care Provider. Call [facility] ([phone]) or report to the closest Emergency Room. Call 911 if necessary. 10/16/232113 <Electronically signed by Fermín Rodrigues MD> Cosigner Signature (if applicable): CC: CURTIS Mena ~ Signed [facility] Work Phone: 1(874) 669-975801-03-2024 Discharge summary Author Fermín Rodrigues [facility] October 16, 2023 9:15pm Note Date/Time October 16, 2023 9: 15pm [facility] Medical Records Department [address] [place] [address] Emergency Department Summary 10/16/23 MR#: [id number] Acct: [id number] Name: JOHNY FREED Rep #:[id number] : 2000 23 From: Fermín Rodrigues MD PCP: CURTIS Mena Status:REG ER Location: ED HPI History of Present Illness Chief Complaint: Syncope [facility] Medical History H/O herpes genitalis Shoulder dystocia during labor and delivery Home Medications multivit-min no.71-iron fum 28 mg-folate no.1 1 mg-dha 300 mg capsule (PNV- [place]) 1 cap PO DAILY 05/16/23 [History Last Taken Unknown] aspirin 81 mg tablet,delayed release 81 mg PO DAILY 08/08/23 [History Last Taken Unknown] ferrous sulfate 325 mg (65 mg iron) tablet (FeroSul) 325 mg PO DAILY 10/16/23 [History Last Taken Unknown] Allergy/AdvReac Type Severity Reaction Status Date / Time Latex, Natural Rubber Allergy Mild Itching Verified 09/16/23 15:24 hydromorphone [From Dilaudid] AdvReac Intermediate passed out Verified 09/16/23 15:24 Family History Grandmother Ovarian cancer great grandmother Surgical History History of throat surgery History of tonsillectomy [place] teeth extracted Social History adopted: No household members: spouse and children number of children: 1 current occupational status: unemployed pets and animals: Yes pets and animals: dog(s) history of recent travel: No sexually active: Yes Smoking Status: Former smoker quit date: 03/15/21 pack-years: 4 alcohol intake: never substance use type: does not use well-balanced diet: daily or most days caffeine: No eating out: 1-3 times/week during the past year weight has: remained stable what type of physical activity do you participate in: walking frequency: daily duration: 30-45 minutes/day stacey/taoism: Temple seatbelt use: always do you feel safe at home: Yes additional social history: Shawn Torres EXAM Physical Exam Const Vital Signs: 10/16/23 17:51 10/16/23 18:42 10/16/23 19:19 Temperature 97.4 F L Temperature Source Temporal Pulse Rate 111 H 91 Pulse Rate [Lying] Pulse Rate [Sitting (for 1 minute prior to obtaining)] Pulse Rate [Standing (for 1 minute prior to obtaining)] Respiratory Rate 16 19 H Respiratory Effort Normal Respiratory Pattern Normal Blood Pressure 115/66 116/70 Blood Pressure [Lying] Blood Pressure [Sitting (for 1 minute prior to obtaining)] Blood Pressure [Standing (for 1 minute prior to obtaining)] Blood Pressure Mean 82 85 Blood Pressure Mean [Lying] Blood Pressure Mean [Sitting (for 1 minute prior to obtaining)] Blood Pressure Mean [Standing (for 1 minute prior to obtaining)] Pulse Ox 99 Oxygen Delivery Method Room Air 10/16/23 19:20 Temperature Temperature Source Pulse Rate Pulse Rate [Lying] 90 Pulse Rate [Sitting (for 1 minute prior to obtaining)] 90 Pulse Rate [Standing (for 1 minute prior to obtaining)] 120 H Respiratory Rate Respiratory Effort Respiratory Pattern Blood Pressure Blood Pressure [Lying] 114/66 Blood Pressure [Sitting (for 1 minute prior to obtaining)] 113/75 Blood Pressure [Standing (for 1 minute prior to obtaining)] 114/78 Blood Pressure Mean Blood Pressure Mean [Lying] 82 Blood Pressure Mean [Sitting (for 1 minute prior to obtaining)] 87 Blood Pressure Mean [Standing (for 1 minute prior to obtaining)] 90 Pulse Ox Oxygen Delivery Method [facility] Lab Data Labs: Laboratory Results - last 24 hr 10/16/23 10/16/23 18:15 18:38 WBC 10.4 RBC 3.53 L Hgb 9.9 L Hct 29.4 L MCV 83.3 MCH 28.0 MCHC 33.7 RDW Std Deviation 36.4 RDW Coeff of Lis 12.0 Plt Count 294 MPV 9.5 Immature Gran % (Auto) 1.900 H Neut % (Auto) 72.3 H Lymph % (Auto) 16.6 L Bailey % (Auto) 6.4 Eos % (Auto) 2.2 Baso % (Auto) 0.6 Absolute Neuts (auto) 7.5 Absolute Lymphs (auto) 1.73 Nucleated RBC % 0 Urine Color Yellow Urine Clarity Clear Urine pH 6.5 Ur Specific [place] 1.010 Urine Protein Negative Urine Glucose (UA) Normal Urine Ketones 15 H Urine Occult Blood Negative Urine Nitrite Negative Urine Bilirubin Negative Urine Urobilinogen Normal Ur Leukocyte Esterase Negative Urine RBC 0 SEEN Urine WBC 0 SEEN Ur Squamous Epith Cells 0-5 SEEN Urine Bacteria 0 SEEN Urine Mucus 0 SEEN EKG Initial EKG: Attestation: I personally reviewed and interpreted this EKG as follows: Interpretation: Sinus Rhythm (Rate is 84. EKG is normal. MS interval is 164 ms. Cures duration 84 ms. QT duration 270 ms. [place] is normal) Discharge Plan Triage Chief Complaint: Syncope ED Provider: Fermín Rodrigues Dx/Rx/DC Orders Clinical Impression: Ketosis, Syncopal episodes, Sivan's disease, Rh negative status during , Anemia in preg-unspec Instructions: Anemia During , ED Fainting, Vagal Reaction Prescriptions: No Action PNV-[place] 28-1-300 mg capsule 1 cap PO DAILY aspirin 81 mg tablet,delayed release (DR/EC) 81 mg PO DAILY ferrous sulfate [FeroSul] 325 mg (65 mg iron) tablet 325 mg PO DAILY Primary Care Provider: Chrystal Alamo Referrals: Yudelka Mcgowan MD [Med Staff - Active Staff] - 1-2 Weeks Esme Baker MD [Med Staff - Active Staff] - 5-7 Days Chrystal Alamo PA [Primary Care Provider] - Disposition Disposition: Home, Self Care What to do if you have Problems For any increased pain, shortness of breath, bleeding, nausea or vomiting, chestpain, or any unexpected problems, contact your Primary Care Provider. Call [facility] ([phone]) or report to the closest Emergency Room. Call 911 if necessary. 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 female who presents for Results (NO ADDITIONAL CONCERNS ). VIRTUAL APPOINTMENT BEING PERFORMED DUE TO COVID-19 (CORONAVIRUS) HPI: Presents today for [facility] LABS. NO NEW COMPLAINTS IRON- SHE STATES SHE HAS NOT BEEN ABLE TO ABSORB IRON IN THE PAST AND HAS ENDED UP WITH IRON INFUSIONS. WILL START DAILY IRON AND RECHECK IN 1 MONTH THYROID- DX WITH SIVAN IN THE PAST. TSH WILL FLUCTUATE LOW [...] Problem List Items Addressed This Visit Endocrine/Metabolic Sivan's thyroiditis Relevant Orders Thyroid Stimulating Hormone Triiodothyronine, [...] WITH RM WITH LABS [facility] Work Phone: 1(147) 356-295006-07-2023 Instructions* Patient Instructions* JANINA Lara - 03/20/2023 3:40 PM EDT 1 month with labs with RM Cancel 04/11/23 [facility] Work Phone: 1(666) 551-572106-01-2023 History of Present illness Narrative* JANINA Lara - 03/14/2023 2:40 PM EDT Subjective Patient ID: Johny Freed is a 22 y.o. female who presents for Follow-up (PAINFUL SWOLLEN LUMP IN GROIN AREA X3-4 DAYS). HPI: Presents today for C/O PAINFUL LUMP TO INSIDE RIGHT THIGH X 3-4 DAYS modifying factors consists of DENIES INJURY associated symptoms consist of BRUISE AFTER PUSHING ON IT prior treatment consists of medication NONE Visit Vitals BP 101/65 Pulse 86 Ht 1.575 m (5' 2) Wt 59.9 kg (132 lb) BMI 24.14 [...] WITH LABS WITH RM documented in [facility] Work Phone: [phone]) 363-965401-04-2023 Chief complaint Narrative - Reported* An interactive audio and video telecommunication system which permits real time communications between the patient (at the originating site) and provider (at the distant site) was utilized to providethis telehealth service. * Verbal consent was requested and obtained from JOHNY FREED on this date, 10/17/2022 10:40 AM , fora telehealth visit. * Pt vv 6 mnth fu with labs. -[facility] Work Phone: [phone]) [phone] NotePrevious comment was modified by KATT at 15:06 on 03/09/2022 CULTURE IN PROGRESS. FINAL REPORT IN 72 HOURS. Culture examined for Group A Streptococcus, Group B Streptococcus, Neisseria gonorrhoeae and Yeast ONLY. NO Neisseria gonorrhoeae ISOLATED. PATIENT: JOHNY FREED LOCATION: [address]#: [id number] : [birth year] AGE: SEX: F ORDERED BY: TAYLER SANTIAGO SOURCE: GENITAL COLLECTED: 03/05/22 11:23 ANTIBIOTICS AT [...] gonorrhoeae and Yeast ONLY. NO Neisseria gonorrhoeae ISOLATED.[facility] DenvilleComment on above: Performed By: #### GENLÓPEZ #### [facility] [address] [place], [place] [id number] History of Present illness Narrative* Patient presents today for..... * 1 med check * cardio concerns - symptoms are currently stable and off meds * mood -symptoms are currently stable and off meds * hemorrhoids - mindful of diet * thyroid - recent work up was benign but will cont to monitor - denies symptoms at this time * 2 follow up pulm work up * she saw Neyda Anniemilli in december/january and complained of SOB, persistent cough, wheezing * she was tx for URI and CXR was completed - no acute cardiopulm findings * she was then ordered PFT and feno and started on albuterol and noted some improvement * she does have fam hx of allergies * PFT - WNl * FENO 60 - characteristic of asthma * she was started on symbicort since this finding and notes some improvement as well -[facility] Work Phone: [phone]) 615-819502-19-2022 History of Present illness Narrative* 21 YOF presents via telephonic visit d/t difficulties with virtual platform. Patient reports occasional wheezing, coughing, nasal congestion and nasal drainage. She reports symptom onset 1 month ago SOB during a coughing spell and at night when her symptoms intensify. Symptoms subside during the day and intensify at night. Cough productive with clear phlegm. She does infuse a natural solution through a nebulizer at night that she reports is beneficial for relieving cough for a short time. * Home COVID-19 negative. * No known COVID-19 exposure. [facility] Work Phone: [phone]) 724-193602-18-2022 History of Present illness Narrative* 21 YOF presents via telephonic visit d/t difficulties with virtual platform. Patient reports occasional wheezing, coughing, nasal congestion and nasal drainage. She reports symptom onset 1 month ago SOB during a coughing spell and at night when her symptoms intensify. Symptoms subside during the day and intensify at night. Cough productive with clear phlegm. She does infuse a natural solution through a nebulizer at night that she reports is beneficial for relieving cough for a short time. * Home COVID-19 negative. * No known COVID-19 exposure. [facility] Work Phone: 1(193) 283-363907-12-2021 History of Present illness Narrative* Patient presents today for..... * 1 med check * cardio concerns - symptoms are currently stable and off meds * mood -symptoms are currently stable and off meds * hemorrhoids - mindful of diet * thyroid - recent work up was benign but will cont to monitor - denies symptoms at this time * pt is 11 weeks , on and following with dr christian. overall she states she is feeling well if not better since she has been [facility] Work Phone: 1(257) 705-727604-01-2021 History of Present illness NarrativePatient presents stating she has not had a menstrual flow since January. She was on control pills when she found out she was . She has some breast tenderness and nausea. Denies any vaginal bleeding. Patient states she has a history of herpes. She was also diagnosed with Sivan's disease.[employer] Work Phone: Evaluation note* Extremities: Negative calf painGastrointestinal: Soft positive bowel sounds probably tender nondiste ndedCardiovascular: Regular rate rhythmRespiratory/Thorax: Clear to auscultation bilaterallyEyes: EOMISkin: no rashes or lesionsConstitutional: alert, oriented [facility]* Diagnosis Genital herpes simplex, unspecified site- Primary documented in this encounter [facility] Work Phone: Evaluation note* Diagnosis Abscess- Primary Cellulitis and abscess of unspecified site Low thyroid stimulating hormone (TSH) level Iron deficiency anemia, unspecified iron deficiency anemia type documented in this encounter [facility] Work Phone: Evaluation note* Diagnosis Iron deficiency anemia, unspecified iron deficiency anemia type- Primary Sivan's thyroiditis Chronic lymphocytic thyroiditis documented in this encounter [facility] Work Phone: Evaluation note* Diagnosis Onset Date Resolution Status Asthma acute H/O herpes genitalis acute Sivan's disease acute [id number] acute acute Rh negative status during acute Supervision of high-risk acute History of labor, current resolved Seasonal allergies resolved History of pre-eclampsia in prior , currently noneactive [facility] Work Phone: Evaluation note* Diagnosis Onset Date Resolution Status Asthma acute H/O herpes genitalis acute [id number] acute acute Rh negative status during acute Supervision of high-risk acute Sivan's disease chronic History of labor, current resolved Seasonal allergies resolved History of pre-eclampsia in prior , currently noneactive Asthma acute H/O herpes genitalis acute [id number] acute acute Rh negative status during acute Supervision of high-risk acute Sivan's disease chronic Asthma acute H/O herpes genitalis acute [id number] acute acute Rh negative status during acute Supervision of high-risk acute Sivan's disease chronic Sivan's disease [facility] Work Phone: Evaluation note* Diagnosis Onset Date Resolution Status Asthma acute H/O herpes genitalis acute [id number] acute acute Rh negative status during acute Supervision of high-risk acute Sivan's disease chronic History of labor, current resolved Seasonal allergies resolved History of pre-eclampsia in prior , currently noneactive Asthma acute H/O herpes genitalis acute [id number] acute acute Rh negative status during acute Supervision of high-risk acute Sivan's disease chronic Asthma acute H/O herpes genitalis acute [id number] acute acute Rh negative status during acute Supervision of high-risk acute 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/O herpes genitalis acute [id number] acute History of proteinuria syndrome acute Rh negative status during acute Supervision of high-risk acute Sivan's disease [facility] Work Phone: Evaluation note* Diagnosis Onset Date Resolution Status Asthma acute H/O herpes genitalis acute [id number] acute acute Rh negative status during acute Supervision of high-risk acute Sivan's disease chronic Asthma acute H/O herpes genitalis acute [id number] acute acute Rh negative status during acute Supervision of high-risk acute 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/O herpes genitalis acute [id number] acute History of proteinuria syndrome acute Rh negative status during acute Supervision of high-risk acute Sivan's disease [facility] Work Phone: Evaluation note* Diagnosis Acute non-recurrent maxillary sinusitis- Primary Nasal congestion Other diseases of nasal cavity and sinuses documented in this encounter [facility] Work Phone: Evaluation note* Diagnosis Onset Date Resolution Status Asthma acute H/O herpes genitalis acute [id number] acute acute Rh negative status during acute Supervision of high-risk acute 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/O herpes genitalis acute [id number] acute History of proteinuria syndrome acute Rh negative status during acute Supervision of high-risk acute Sivan's disease chronic Anemia in preg-unspec acute Asthma acute H/O herpes genitalis acute [id number] acute History of proteinuria syndrome acute acute Rh negative status during acute Supervision of high-risk acute Sivan's disease [facility] Work Phone: Evaluation note* Diagnosis Onset Date Resolution Status Asthma acute H/O herpes genitalis acute [id number] acute acute Rh negative status during acute Supervision of high-risk acute 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/O herpes genitalis acute [id number] acute History of proteinuria syndrome acute Rh negative status during acute Supervision of high-risk acute Sivan's disease chronic Anemia in preg-unspec acute Asthma acute H/O herpes genitalis acute [id number] acute History of proteinuria syndrome acute acute Rh negative status during acute Supervision of high-risk acute Sivan's disease chronic Anemia in preg-unspec acute Asthma acute Gestational diabetes mellitu s (GDM) affecting , antepartum acute H/O herpes genitalis acute [id number] acute History of proteinuria syndrome acute acute Rh negative status during acute Supervision of high-risk acute Sivan's disease [facility] Work Phone: Evaluation note* Diagnosis Onset Date Resolution Status Sivan's disease chronic H/O herpes genitalis acute [id number] acute History of proteinuria syndrome acute Rh negative status during acute Supervision of high-risk acute Sivan's disease chronic Anemia in preg-unspec acute Asthma acute H/O herpes genitalis acute [id number] acute History of proteinuria syndrome acute acute Rh negative status during acute Supervision of high-risk acute Sivan's disease chronic Anemia in preg-unspec acute Asthma acute Gestational diabetes mellitu s (GDM) affecting , antepartum acute H/O herpes genitalis acute [id number] acute History of proteinuria syndrome acute acute Rh negative status during acute Supervision of high-risk acute Sivan's disease chronic Anemia in preg-unspec acute Asthma acute Gestational diabetes mellitu s (GDM) affecting , antepartum acute H/O herpes genitalis acute [id number] acute History of proteinuria syndrome acute acute Rh negative status during acute Supervision of high-risk acute Sivan's disease chronic Anemia in preg-unspec acute Asthma acute Gestational diabetes mellitu s (GDM) affecting , antepartum acute H/O herpes genitalis acute [id number] acute History of proteinuria syndrome acute acute Rh negative status during acute Supervision of high-risk acute Siavn's disease [facility] Work Phone: Evaluation note* Diagnosis Onset Date Resolution Status Rh negative status during acute H/O herpes genitalis resolve d Sivan's disease resolved [id number] resolved History of proteinuria syndrome resolved Supervision of high-risk resolved Asthma acute Rh negative status during acute Anemia in preg-unspec resolv ed H/O herpes genitalis resolve d Sivan's disease resolved [id number] resolved History of proteinuria syndrome resolved resolved Supervision of high-risk resolved Asthma acute Gestational diabetes mellitu s (GDM) affecting , antepartum acute Rh negative status during acute Anemia in preg-unspec resolv ed H/O herpes genitalis resolve d Sivan's disease resolved [id number] resolved History of proteinuria syndrome resolved resolved Supervision of high-risk resolved Asthma acute Gestational diabetes mellitu s (GDM) affecting , antepartum acute Rh negative status during acute Anemia in preg-unspec resolv ed H/O herpes genitalis resolve d Sivan's disease resolved [id number] resolved History of proteinuria syndrome resolved resolved Supervision of high-risk resolved Asthma acute Gestational diabetes mellitu s (GDM) affecting , antepartum acute Rh negative status during acute Anemia in preg-unspec resolv ed H/O herpes genitalis resolve d Sivan's disease resolved [id number] resolved History of proteinuria syndrome resolved resolved Supervision of high-risk resolved Trauma during reso lved Asthma acute Gestational diabetes mellitu s (GDM) affecting , antepartum acute Rh negative status during acute Anemia in preg-unspec resolv ed H/O herpes genitalis resolve d Sivan's disease resolved [id number] resolved History of proteinuria syndrome resolved resolved Supervision of high-risk resolved Asthma acute Gestational diabetes mellitu s (GDM) affecting , antepartum acute Rh negative status during acute Anemia in preg-unspec resolv ed H/O herpes genitalis resolve d Sivan's disease resolved [id number] resolved History of proteinuria syndrome resolved Oligohydramnios in third trimester resolved resolved Supervision of high-risk resolved Asthma acute Gestational diabetes mellitu s (GDM) affecting , antepartum acute Rh negative status during acute Vaginal delivery acute Anemia in preg-unspec resolv ed H/O herpes genitalis resolve d Sivan's disease resolved [id number] resolved History of proteinuria syndrome resolved Oligohydramnios in third trimester resolved resolved Supervision of high-risk resolved Migraine headache acute [facility] Work Phone: Evaluation note* Diagnosis Onset Date Resolution Status Asthma acute Anemia in preg-unspec resolv ed H/O herpes genitalis resolve d Sivan's disease resolved [id number] resolved History of proteinuria syndrome resolved resolved Supervision of high-risk resolved Asthma acute Anemia in preg-unspec resolv ed H/O herpes genitalis resolve d Sivan's disease resolved [id number] resolved History of proteinuria syndrome resolved resolved Supervision of high-risk resolved Asthma acute Anemia in preg-unspec resolv ed H/O herpes genitalis resolve d Sivan's disease resolved [id number] resolved History of proteinuria syndrome resolved resolved Supervision of high-risk resolved Asthma acute Anemia in preg-unspec resolv ed H/O herpes genitalis resolve d Sivan's disease resolved [id number] resolved History of proteinuria syndrome resolved resolved Supervision of high-risk resolved Trauma during reso lved Asthma acute Anemia in preg-unspec resolv ed H/O herpes genitalis resolve d Sivan's disease resolved [id number] resolved History of proteinuria syndrome resolved resolved Supervision of high-risk resolved Asthma acute Anemia in preg-unspec resolv ed H/O herpes genitalis resolve d Sivan's disease resolved [id number] resolved History of proteinuria syndrome resolved Oligohydramnios in third trimester resolved resolved Supervision of high-risk resolved Asthma acute Anemia in preg-unspec resolv ed H/O herpes genitalis resolve d Sivan's disease resolved [id number] resolved History of proteinuria syndrome resolved Oligohydramnios in third trimester resolved resolved Supervision of high-risk resolved Care and examination of lactating mother noneactive Migraine headache acute nipple pain nonea ctive Care and examination of lactating mother noneactive Routine Follow-Up noneactive [facility] Work Phone: Evaluation note* Diagnosis Onset Date Resolution Status Rh negative status during acute H/O herpes genitalis resolve d Sivan's disease resolved [id number] resolved History of proteinuria syndrome resolved Supervision of high-risk resolved Asthma acute Rh negative status during acute Anemia in preg-unspec resolv ed H/O herpes genitalis resolve d Sivan's disease resolved [id number] resolved History of proteinuria syndrome resolved resolved Supervision of high-risk resolved Asthma acute Gestational diabetes mellitu s (GDM) affecting , antepartum acute Rh negative status during acute Anemia in preg-unspec resolv ed H/O herpes genitalis resolve d Sivan's disease resolved [id number] resolved History of proteinuria syndrome resolved resolved Supervision of high-risk resolved Asthma acute Gestational diabetes mellitu s (GDM) affecting , antepartum acute Rh negative status during acute Anemia in preg-unspec resolv ed H/O herpes genitalis resolve d Sivan's disease resolved [id number] resolved History of proteinuria syndrome resolved resolved Supervision of high-risk resolved Asthma acute Gestational diabetes mellitu s (GDM) affecting , antepartum acute Rh negative status during acute Anemia in preg-unspec resolv ed H/O herpes genitalis resolve d Sivan's disease resolved [id number] resolved History of proteinuria syndrome resolved resolved Supervision of high-risk resolved Trauma during reso lved Asthma acute Gestational diabetes mellitu s (GDM) affecting , antepartum acute Rh negative status during acute Anemia in preg-unspec resolv ed H/O herpes genitalis resolve d Sivan's disease resolved [id number] resolved History of proteinuria syndrome resolved resolved Supervision of high-risk resolved Asthma acute Gestational diabetes mellitu s (GDM) affecting , antepartum acute Rh negative status during acute Anemia in preg-unspec resolv ed H/O herpes genitalis resolve d Sivan's disease resolved [id number] resolved History of proteinuria syndrome resolved Oligohydramnios in third trimester resolved resolved Supervision of high-risk resolved Asthma acute Gestational diabetes mellitu s (GDM) affecting , antepartum acute Rh negative status during acute Vaginal delivery acute Anemia in preg-unspec resolv ed H/O herpes genitalis resolve d Sivan's disease resolved [id number] resolved History of proteinuria syndrome resolved Oligohydramnios in third trimester resolved resolved Supervision of high-risk resolved [facility] Work Phone: Evaluation note* Diagnosis Dysuria- Primary documented in this encounter [facility] Work Phone: Evaluation note* Diagnosis Fatigue, unspecified type- Primary Sivan's thyroiditis Chronic lymphocytic thyroiditis Iron deficiency anemia, unspecified iron deficiency anemia type Diet controlled gestational diabetes mellitus (GDM) in third trimester (HHS-HCC) Pain of left heel Acute pain of left foot Acute left ankle pain Mild persistent asthma without complication (HHS-HCC) documented in this encounter [facility] Work Phone: Evaluation note* Diagnosis Acute pain of right shoulder- Primary Vitamin D deficiency Iron deficiency anemia, unspecified iron deficiency anemia type Sivan's thyroiditis Chronic lymphocytic thyroiditis Acute right-sided thoracic back pain documented in this encounter [facility] Work Phone: History and physical note Author Brandi Pacheco [facility] December 18, 2023 7:02pm Note Date/Time December 18, 2023 6:54 pm [facility] Medical Records Department [address] [place] [address] OB Triage Physician Note 12/18/23 1852 MR#: [id number] Acct: [id number] Name: JOHNY FREED Rep #:[id number] : 2000 23 From: Brandi Freeman DO PCP: CURTIS Mena Status:REG CLI Y Location: [id number] HPI - General HPI Narrative JOHNY FREED, is a 23 F who presents with headache. She took her own manual bp at home and thought it was 145/90. She denies visual changes or epigastric pain.She has some incontinence and lower pelvic pain. Her baby is 5 days old. She denies heavy vaginal bleeding or clotting. She admits to a h/o migraine headaches treated with sumatriptan. She does not feel better when she lays back but did receive an epidural in labor Maternal Data Information STARR Calculator Estimated Delivery Date Method Current WG Current Estimate 03/21/24 LMP (Certain) 37w 6d PFSH PFSH Medical History (Updated 12/18/23 @ 18:[address] Brandi Freeman, DO) Abnormal glucose affecting H/O herpes genitalis Oligohydramnios Shoulder dystocia during labor and delivery Home Medications multivit-min no.71-iron fum 28 mg-folate no.1 1 mg-dha 300 mg capsule (PNV- [place]) 1 cap PO DAILY 05/16/23 [History Last Taken 12/18/23 08:00 1 cap] blood sugar diagnostic (Blood Glucose Test strips) #120 ea 10/25/23 [Rx Last Taken Unknown] blood-glucose meter #1 ea 10/25/23 [Rx Last Taken Unknown] lancets #200 ea 10/25/23 [Rx Last Taken Unknown] flash glucose scanning reader (PartnerpediaStyle Sanjay 2 [place]) #1 ea 10/30/23 [Rx Last Taken Unknown] flash glucose sensor (FreeStyle Sanjay 2 Sensor kit) #1 ea 10/30/23 [Rx Last Taken Unknown] Allergy/AdvReac Type Severity Reaction Status Date / Time Latex, Natural Rubber Allergy Mild Itching Verified 12/18/23 18:03 acetaminophen [From Vicodin] Allergy other Verified 12/18/23 18:03 hydrocodone [From Vicodin] Allergy other Verified 12/18/23 18:03 hydromorphone [From Dilaudid] AdvReac Intermediate passed out Verified 12/18/23 18:03 Family History Grandmother Ovarian cancer great grandmother Surgical History History of throat surgery History of tonsillectomy [place] teeth extracted Social History adopted: No household members: spouse and children number of children: 1 current occupational status: unemployed pets and animals: Yes pets and animals: dog(s) history of recent travel: No sexually active: Yes Smoking Status: Former smoker quit date: 03/15/21 pack-years: 4 alcohol intake: never substance use type: does not use well-balanced diet: daily or most days caffeine: No eating out: 1-3 times/week during the past year weight has: remained stable what type of physical activity do you participate in: walking frequency: daily duration: 30-45 minutes/day stacey/taoism: Temple seatbelt use: always do you feel safe at home: Yes additional social history: Shawn Torres History 2 Elective abortions Hx Para 1 Spontaneous abortions Hx # Term Pregnancies Ectopic pregnancies Hx # Pregnancies Multiple births # of living children 1 Past Pregnancies Del. Date Name GA/Weeks Outcome Route Bth Weight Gen Labor Lgth Anesthesia Del Locatn Provider FOB 11/07/21 Tye 39 live - full term 8#6oz Male epidural Claus Snyder Shawn Delivery Date: 11/07/21 Last Updated by: Esme Baker MD IOL- small pelvis, shoulder dystocia and clavicle fracture Visit Details Expected Delivery Route/Plan Labor Preferences- CB/BF classes: [] labor support person: [] labor intervention preferences: [] pain management options preferred: [] cut cord/dad catch: [] : [] PP control planned: [] discussed possible routes of delivery and associated risks: [] special requests: [] Plans Covid status: [] Flu vaccine: declines Tdap vaccine: declineds Rhogam: given 28 weeks LARC form signed: declined Problem list reviewed and u movement and labor precautions reviewed. updated with the most current plan of care details and appropriate orders placed. Relevant counseling for the gestational age provided. Continue routine care and follow up unless otherwise noted in visit notes/problem list details OB Flowsheet Initial Weight: Not Recorded Date -?-?-?-?-?-?-?-?-?-?-?-?- EGA Weight BP Urine Prot -?-?-?-?-?-?-?-?-?-?-?-?- Glucose FHR FuHt Pres Dilation -?-?-?-?-?-?-?-?-?-?-?-?- Effaced St Visit Note 05/27/23 -?-?-?-?-?-?-?-?-?-?-?-?- 8w 4d 136 lb 2 oz 121/73 -?-?-?-?-?-?-?-?-?-?-?-?- 175 -?-?-?-?-?-?-?-?-?-?-?-?- SM- CRL cons wit h LMP 06/26/23 -?-?-?-?-?-?-?-?-?-?-?-?- 12w 6d 143 lb 116/69 Negative -?-?-?-?-?-?-?-?-?-?-?-?- Negative 170 -?-?-?-?-?-?-?-?-?-?-?-?- JV- no cramping or spotting. no complaints. tSH, free t4, TPO ordered. declines NIPT. 07/26/23 -?-?-?-?-?-?-?-?-?-?-?-?- 17w 1d 151 lb 117/73 Negative -?-?-?-?-?-?-?-?-?-?-?-?- Negative 153 -?-?-?-?-?-?-?-?-?-?-?-?- KW- no vb/lof/cr amping. + flutters. US scheduled. Declines AFP and flu shot 09/16/23 -?-?-?-?-?-?-?-?-?-?-?-?- 24w 4d 176 lb 2 oz 118/68 Nega tive -?-?-?-?-?-?-?-?-?-?-?-?- Negative 138 -?-?-?-?-?-?-?-?-?-?-?-?- MH-No VB, LOF. G ood FM. Noting weight gain, edema in ankles, episodes of dizziness, racing heart. enc eat more frequently, stand slowly, high protein low sugar/carb foods. Pre E labs today. No edema today 10/17/23 -?-?-?-?-?-?-?-?-?-?-?-?- 29w 0d 186 lb 6 oz 121/80 Nega tive -?-?-?-?-?-?-?-?-?-?-?-?- Negative 140 30 -?-?-?-?-?-?-?-?-?-?-?-?- KW-no vb/lof/ctx . good fm. Declines Tdap. LARC and Rhogam today. IV infusion tomorrow for anemia. Fainted yesterday and went to ER KW-no vb/lof/ctx. good fm. D eclines Tdap. LARC and Rhogam today. IV infusion tomorrow for anemia. Fainted yesterday and went to ER-vasovagal episode. 28 week labs today. HGB 9.4 today 10/30/23 -?-?-?-?-?-?-?-?-?-?-?-?- 30w 6d 186 lb 6 oz 117/71 Nega tive -?-?-?-?-?-?-?-?-?-?-?-?- Negative 140 30 -?-?-?-?-?-?-?-?-?-?-?-?- JV- starting glu cose monitoring, has some elevated fastings. needs to see nutrition. will try to order continuous monitoring. had infusion reaction to iron, will go back to po iron + vit c and will try chlorophyll. rpt cbc beginning of nov. deciding cs vag del. has h/o shoulder dystocia 11/14/23 -?-?-?-?-?-?-?-?-?-?-?-?- 33w 0d 189 lb 6 oz 124/74 Nega tive -?-?-?-?-?-?-?-?-?-?-?-?- Negative 140 34 Cephalic -?-?-?-?-?-?-?-?-?-?-?-?- SM- no vb lof go od fm no regular ctx, extensive counseling rearding primary csection or vaginal delivery. SM- no vb lof good fm no reg ular ctx, extensive counseling rearding primary csection or vaginal delivery. BS controlled 11/26/23 -?-?-?-?-?-?-?-?-?-?-?-?- 34w 5d Negative -?-?-?-?-?-?-?-?-?-?-?-?- Negative 140 36 Cephalic -?-?-?-?-?-?-?-?-?-?-?-?- KW-no vb/lof/ctx . good fm. BS controlled and has growth US scheduled for next . 12/05/23 -?-?-?-?-?-?-?-?-?-?-?-?- 36w 0d 190 lb 104/72 -?-?-?-?-?-?-?-?-?-?-?-?- 140 37 Cephalic 1 -?-?-?-?-?-?-?-?-?-?-?-?- SM- no vb lof go od fm n oregular ctx 12/12/23 -?-?-?-?-?-?-?-?-?-?-?-?- 37w 0d 194 lb 112/77 -?-?-?-?-?-?-?-?-?-?-?-?- 150 Cephalic 1 -?-?-?-?-?-?-?-?-?-?-?-?- 20 -4 SM- bedsid e SHARMILA 2cm and decreased fm the last 4 days, recommend immediate IOL. dicsussed EFW 6lb 10 ounces, previous SD with 8lb 6 ounces. ROS Constitutional Constitutional: Denies chills, fatigue, fever(s), poor appetite or weakness Eyes Eyes: Denies blurry vision, change in vision, seeing flashes or spots in vision ENT HEENT: Denies dizziness, loss taste/smell or sore throat Cardiovascular Cardiovascular: Denies chest pain, dizziness, dyspnea, irregular heart rhythm, palpitations or rapid heart rate Respiratory/Chest Respiratory/Chest: Denies chest tightness, cough, dyspnea or breast pain Gastrointestinal Gastrointestinal: Denies abdominal pain, constipation or vomiting Genitourinary Genitourinary: Denies dysuria or flank pain Musculoskeletal Musculoskeletal: Denies difficulty walking, joint pain, limited range of motion or numbness Neurologic Neurologic: Denies abnormal movements, abnormal speech, dizziness, numbness, seizure-like activity or syncope Psychiatric Psychiatric: Denies anxiety, behavioral changes, change in appetite, confusion, depression or suicidal thoughts Physical Exam Const alert, oriented x3 and no apparent distress General Appearance: cooperative and comfortable Resp normal respiratory effort Cardio regular rate GI normal to inspection, nondistended, normoactive bowel sounds GI Narrative: uterus is firm below umbilicus Palpation: soft Extremity normal to inspection, no clubbing, cyanosis or edema, no calf tenderness and no pedal edema Psych mental status grossly normal, thought process normal, cooperative, affect normal, speech normal, activity/motor behavior normal, denies homicidal ideation and denies suicidal ideation Assessment & Plan (1) Migraine headache: PLAN: sumatriptan 6 mg SC x 1 now + motrin 800 mg. recommend hydration PO or IV if unable to tolerate PO she does not show signs or symptoms of pre-eclampsia. (bp is low/normal) ok to dc to home if feeling better after this treatment. Charges/Coding Multi Select Codes Visit Charges Office Visit/Consults: 14986 OV L3 Est 20min 12/18/23 190 <Electronically signed by Brandi Adhikari DO> Date _ Brandi Freeman DO Cosigner Signature (if applicable): Date CC: Dr. Brandi Freeman DO; CURTIS Mena ~ Signed [facility] Work Phone: History of Present illness [id number] G1 presents for follow-up viability ultrasound. Patient notes more breast tenderness nausea recently. Minimal cramps but no bleeding. Patient has no acute concerns.[address] Work Phone: History of Present illness [...] given some of her symptoms [facility] Work Phone: History of Present illness [id number]-[id number] G1, P1 presents for concern for yellow discharge and a lot of pain. Patient strongly anxious with baby in her recovery. Patient is no [facility] [employer] Work Phone: History of Present illness [id number] presents for 6-week status post spontaneous vaginal delivery. Patient doing well. Patient struggled with constipation despite Colace twice a day. Patient drinking tons of waterfor breast-feeding. doing well. Patient not sexually active. Patient is no period. Patient like discussed control. Patient is no other [facility] [employer] Work Phone: History of Present illness Narrative* [...] * She had COVID-19 09/2021. [facility] Work Phone: History of [...] is doing well. She cont to breastfeed [facility] Work Phone: History of Present illness [...] well. She cont to breastfeed [facility] Work Phone: History of Present illness Narrative* Pt. presents for annual exam * up to date on pap * Still with bothersome scar tissue from perineal repair at last , did use estrogen cream for a while * d/c contraception and open to next , will start folic acid [facility]-[address] Work Phone: History of Present illness Narrative* Alexa Lancaster, [employer] OPERATOR - 02/08/2023 9:40 AM EDT Subjective Patient ID: Johny Freed is a 22 y.o. female who presents [...] [facility] as before [facility] Discharge instructions* Activity:Return [...] symptoms worsen, call 911 or go to [facility] room. *Information obtained from JASMYNE s: Save Your Life: Get Care for These POST- Warning SignsOn Behalf on the [facility] Maternity Staff, Congratulations on your . It was our pleasure to take care of you and your during your stay. We hope during this stay that we have exceeded all of your expectations. We will be calling you in a few days to check up on you and your . Please allow us to speak with you and please ask questions or let us know if you have any concerns. If you need any assistance after you go home please give us a call. Also, please join our [facility] Support Group which meets the saturday of every month at 10 am in the OB unit. No need to register. If you have any questions please call us at [phone]. Again, Congratulations! Warmest Regards,[facility]'s Maternity Staff [facility] Author Ara Roach [facility] December 14, 2023 8:19am Note Date/Time December 14, 2023 8:19 am [facility] Medical Records Department [address] [place] [address] Progress Note - OBGYN 12/14/23 0817 MR#: [id number] Acct: [id number] Name: JOHNY FREED Rep #:[id number] : 2000 23 From: Ara Roach CNM PCP: CURTIS Mena Status:ADM IN Location: [id number] Subjective Subjective Patient doing well without complaints. Tolerating PO. Ambulating and voiding without difficulty. Feeding well, having some difficulties, using soothie pads. Denies chest pain, shortness of breath, calf pain/swelling, fevers, chills, lightheadedness. Objective Data Objective Data Vital Signs: Vital Signs Temp Pulse Resp BP Pulse Ox O2 Del Method 98.5 F 88 16 107/61 98 Room Air 12/14/23 01:03 12/14/23 01:03 12/14/23 01:03 12/14/23 01:03 12/14/23 01:03 12/14/23 01:03 Oxygen Delivery Method Room Air Weight: 192 lb Body Mass Index (BMI) 34.0 Intake & Output: Intake and Output for Last 24 Hours 12/12/23 12/13/23 12/14/23 23:59 23:59 23:59 Intake Total 1263.83 / 1263.83 2236.17 / 2236.17 Output Total 900 / 900 1300 / 1300 Balance 363.83 / 363.83 936.17 / 936.17 Lab / Micro Data 12/12/23 15:20 Labs: Laboratory Results - last 24 hr 12/13/23 03:22: Screen NEGATIVE, Baby's Blood Type O POSITIVE, Baby's LILY NEGATIVE 12/14/23 05:27: POC Glucose 94 Physical Exam Const alert and no apparent distress Lymph Lymphatic: no lymphadenopathy noted Chest Nipple/Areola: nipples/areola normal Resp normal respiratory effort and normal air movement Cardio regular rate and regular rhythm GI normal to inspection, nondistended, normoactive bowel sounds Uterus Palpation: uterus fundus firm Extremity normal to inspection, full ROM, no calf tenderness and no pedal edema Skin no rashes or lesions noted Psych mental status grossly normal Assessment & Plan (1) Vaginal delivery: COMMENT: iol oligo gdma1 sm girl Ellia PLAN: s/p PPD # 1 1. routine post delivery care 2. breast feeding- support given, trial consultant to see today 3. rh positive 4. rubella immune 5. d/c home today 12/14/23 08 <Electronically signed by Ara Roach CNM> Cosigner Signature (if applicable): CC: ~ Signed [facility] Work Phone: Reason for referral (narrative)No reason for referral information availableWSt. Mary's [facility] Work Phone: Summary Purpose Family History Mother Name Dates Details No pertinent family [...] pertinent family history: Mother, Father(V49.89, Z78.9) Status:Active Relationship Condition Age at Onset Recorded Date/T hannah grandmother Malignant neoplasm of ovary Unknown Relationship Condition Age at Onset Recorded Date/T hannah grandmother Malignant neoplasm of ovary 70 Malignant neoplasm of colon 60 Advance Directives Advance Directive Response Recorded Date/ Time Living Will No October 16 6:42pm Power of Cutter Finisher No October 16 6:42pm Advance Directive Response Recorded Date/ Time Living Will No November 3:12pm Power of Cutter Finisher No December 12, 2023 3:12pm Advance Directive Response Recorded Date/ Time Living Will No November 4:12pm Power of Cutter Finisher No December 12, 2023 4:12pm Advance Directive Response Recorded Date/ Time Do you have a Healthcare Power of Cutter Finisher? No April 05, 2025 3:18pm Reason for Referral Status Reason Specialty Diagnoses / Procedures Referred By Contact Referred To Contact New Request Procedures ECG Marybel Bustos PA-C [address] [place] [address] Discharge Instructions * Instructions* Marybel Bustos PA-C - 10/31/2020 Your blood work is normal, heart testing normal, and imaging normal today. Follow up with cardiology for further evaluation of passing out and palpitations. * Attachments The following attachments cannot be sent through Care Everywhere. * Palpitations (Eritrean) * Fainting (Eritrean) documented in this encounter Assessments Diagnosis Syncope, [...] PATIENT IS CURRENTLY [address] WEE[address] - DR. CHRISTIAN IS OB. PATIENT HAS D/C ALL MEDS DUE TO BUT CLAIMS HER ANXIETY AND DEPRESSION HAS BEEN PRETTY GOOD DESPITE NO MEDS.2 MONTH F/U MED CHECK. PATIENT IS CURRENTLY [address] W[address] - DR. CHRISTIAN IS OB. PATIENT HAS D/C ALL MEDS [...] HAVING SEVERE CRAMPING ON THE LEFT SIDE. Chief Complaint and Reason for Visit Chief Complaint NOB LMP 03/28 Reason for Visit Asthma H/O herpes genitalis Sivan's disease [id number] Rh negative status during Supervision of high-risk History of labor, current Seasonal allergies History of pre-eclampsia in prior , currently Chief Complaint NOB LMP 03/28 13 WK OB 18 WK OB Elevated TPO INT LABS Reason for Visit Asthma H/O herpes genitalis [id number] Rh negative status during 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 History of labor, current Seasonal allergies History of pre-eclampsia in prior , currently Asthma H/O herpes genitalis [id number] Rh negative status during 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 Asthma H/O herpes genitalis [id number] Rh negative status during 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 Chief Complaint NOB LMP 03/28 13 WK OB 18 WK OB Elevated TPO INT LABS BP check, weight check Reason for Visit Asthma H/O herpes genitalis [id number] Rh negative status during 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 History of labor, current Seasonal allergies History of pre-eclampsia in prior , currently Asthma H/O herpes genitalis [id number] Rh negative status during 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 Asthma H/O herpes genitalis [id number] Rh negative status during 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 H/O herpes genitalis [id number] History of proteinuria syndrome Rh negative status during 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 Chief Complaint 13 WK OB 18 WK OB Elevated TPO INT LABS BP check, weight check Reason for Visit Asthma H/O herpes genitalis [id number] Rh negative status during 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 Asthma H/O herpes genitalis [id number] Rh negative status during 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 H/O herpes genitalis [id number] History of proteinuria syndrome Rh negative status during 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 Chief Complaint 13 WK OB 18 WK OB Elevated TPO INT LABS BP check, weight check SYNCOPAL Reason for Visit Asthma H/O herpes genitalis [id number] Rh negative status during 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 Asthma H/O herpes genitalis [id number] Rh negative status during 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 H/O herpes genitalis [id number] History of proteinuria syndrome Rh negative status during 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 Chief Complaint 18 WK OB Elevated TPO INT LABS BP check, weight check SYNCOPAL 29 WK OB VENOFER 300MG Abnormal glucose complicating Reason for Visit Asthma H/O herpes genitalis [id number] Rh negative status during 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 H/O herpes genitalis [id number] History of proteinuria syndrome Rh negative status during 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 Anemia in preg-unspec Asthma H/O herpes genitalis [id number] History of proteinuria syndrome Rh negative status during 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 Chief Complaint 18 WK OB Elevated TPO INT LABS BP check, weight check SYNCOPAL 29 WK OB VENOFER 300MG Abnormal glucose complicating 31 WK OB GESTATIONAL DIABETES Reason for Visit Asthma H/O herpes genitalis [id number] Rh negative status during 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 H/O herpes genitalis [id number] History of proteinuria syndrome Rh negative status during 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 Anemia in preg-unspec Asthma H/O herpes genitalis [id number] History of proteinuria syndrome Rh negative status during 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 Anemia in preg-unspec Asthma Gestational diabetes mellitus (GDM) affecting , antepartum H/O herpes genitalis [id number] History of proteinuria syndrome Rh negative status during 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 Chief Complaint Elevated TPO INT LABS BP check, weight check SYNCOPAL 29 WK OB VENOFER 300MG Abnormal glucose complicating 31 WK OB GESTATIONAL DIABETES 33 WK OB 35 WK OB FALL Reason for Visit Sivan's disease H/O herpes genitalis [id number] History of proteinuria syndrome Rh negative status during 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 Anemia in preg-unspec Asthma H/O herpes genitalis [id number] History of proteinuria syndrome Rh negative status during 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 Anemia in preg-unspec Asthma Gestational diabetes mellitus (GDM) affecting , antepartum H/O herpes genitalis [id number] History of proteinuria syndrome Rh negative status during 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 Anemia in preg-unspec Asthma Gestational diabetes mellitus (GDM) affecting , antepartum H/O herpes genitalis [id number] History of proteinuria syndrome Rh negative status during 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 Anemia in preg-unspec Asthma Gestational diabetes mellitus (GDM) affecting , antepartum H/O herpes genitalis [id number] History of proteinuria syndrome Rh negative status during 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 Chief Complaint BP check, weight shannan ck SYNCOPAL 29 WK OB VENOFER 300MG Abnormal glucose complicating 31 WK OB GESTATIONAL DIABETES 33 WK OB 35 WK OB FALL FALL 36 WEEKS WELL BEING 36 WK OB 37 WK OB VAGINAL INDUCTION VAGINAL Visit R/O PRE E R/O PRE E Reason for Visit Rh negative status d uring H/O herpes genitalis Sivan's disease [id number] History of proteinuria syndrome Supervision of high-risk Asthma Rh negative status during Anemia in preg-unspec H/O herpes genitalis Sivan's disease [id number] History of proteinuria syndrome Supervision of high-risk Asthma Gestational diabetes mellitus (GDM) affecting , antepartum Rh negative status during Anemia in preg-unspec H/O herpes genitalis Sivan's disease [id number] History of proteinuria syndrome Supervision of high-risk Asthma Gestational diabetes mellitus (GDM) affecting , antepartum Rh negative status during Anemia in preg-unspec H/O herpes genitalis Sivan's disease [id number] History of proteinuria syndrome Supervision of high-risk Asthma Gestational diabetes mellitus (GDM) affecting , antepartum Rh negative status during Anemia in preg-unspec H/O herpes genitalis Sivan's disease [id number] History of proteinuria syndrome Supervision of high-risk Trauma during Asthma Gestational diabetes mellitus (GDM) affecting , antepartum Rh negative status during Anemia in preg-unspec H/O herpes genitalis Sivan's disease [id number] History of proteinuria syndrome Supervision of high-risk Asthma Gestational diabetes mellitus (GDM) affecting , antepartum Rh negative status during Anemia in preg-unspec H/O herpes genitalis Sivan's disease [id number] History of proteinuria syndrome Oligohydramnios in third trimester Supervision of high-risk Asthma Gestational diabetes mellitus (GDM) affecting , antepartum Rh negative status during Vaginal delivery Anemia in preg-unspec H/O herpes genitalis Sivna's disease [id number] History of proteinuria syndrome Oligohydramnios in third trimester Supervision of high-risk Migraine headache Chief Complaint SYNCOPAL 29 WK OB VENOFER 300MG Abnormal glucose complicating 31 WK OB GESTATIONAL DIABETES 33 WK OB 35 WK OB FALL FALL 36 WEEKS WELL BEING 36 WK OB 37 WK OB VAGINAL INDUCTION VAGINAL Visit R/O PRE E R/O PRE E assessment visit (obstetrics) ANNUAL PAP Reason for Visit Asthma Anemia in preg-unspec H/O herpes genitalis Sivan's disease [id number] History of proteinuria syndrome Supervision of high-risk Asthma Anemia in preg-unspec H/O herpes genitalis Sivan's disease [id number] History of proteinuria syndrome Supervision of high-risk Asthma Anemia in preg-unspec H/O herpes genitalis Sivan's disease [id number] History of proteinuria syndrome Supervision of high-risk Asthma Anemia in preg-unspec H/O herpes genitalis Sivan's disease [id number] History of proteinuria syndrome Supervision of high-risk Trauma during Asthma Anemia in preg-unspec H/O herpes genitalis Sivan's disease [id number] History of proteinuria syndrome Supervision of high-risk Asthma Anemia in preg-unspec H/O herpes genitalis Sivan's disease [id number] History of proteinuria syndrome Oligohydramnios in third trimester Supervision of high-risk Asthma Anemia in preg-unspec H/O herpes genitalis Sivan's disease [id number] History of proteinuria syndrome Oligohydramnios in third trimester Supervision of high-risk Care and examination of lactating mother Migraine headache nipple pain Care and examination of lactating mother Routine Follow-Up Chief Complaint BP check, weight shannan ck SYNCOPAL 29 WK OB VENOFER 300MG Abnormal glucose complicating 31 WK OB GESTATIONAL DIABETES 33 WK OB 35 WK OB FALL FALL 36 WEEKS WELL BEING 36 WK OB 37 WK OB VAGINAL INDUCTION VAGINAL Reason for Visit Rh negative status d uring H/O herpes genitalis Sivan's disease [id number] History of proteinuria syndrome Supervision of high-risk Asthma Rh negative status during Anemia in preg-unspec H/O herpes genitalis Sivan's disease [id number] History of proteinuria syndrome Supervision of high-risk Asthma Gestational diabetes mellitus (GDM) affecting , antepartum Rh negative status during Anemia in preg-unspec H/O herpes genitalis Sivan's disease [id number] History of proteinuria syndrome Supervision of high-risk Asthma Gestational diabetes mellitus (GDM) affecting , antepartum Rh negative status during Anemia in preg-unspec H/O herpes genitalis Sivan's disease [id number] History of proteinuria syndrome Supervision of high-risk Asthma Gestational diabetes mellitus (GDM) affecting , antepartum Rh negative status during Anemia in preg-unspec H/O herpes genitalis Sivan's disease [id number] History of proteinuria syndrome Supervision of high-risk Trauma during Asthma Gestational diabetes mellitus (GDM) affecting , antepartum Rh negative status during Anemia in preg-unspec H/O herpes genitalis Sivan's disease [id number] History of proteinuria syndrome Supervision of high-risk Asthma Gestational diabetes mellitus (GDM) affecting , antepartum Rh negative status during Anemia in preg-unspec H/O herpes genitalis Sivan's disease [id number] History of proteinuria syndrome Oligohydramnios in third trimester Supervision of high-risk Asthma Gestational diabetes mellitus (GDM) affecting , antepartum Rh negative status during Vaginal delivery Anemia in preg-unspec H/O herpes genitalis Sivan's disease [id number] History of proteinuria syndrome Oligohydramnios in third trimester Supervision of high-risk Chief Complaint Admit Date E ORDERS September 14, 2024 1 1:09am possible vaginal prolapse December 22 9:31am AUB December 24, 2024 12: 48pm Reason for Visit Admit Date Abnormal uterine bleeding December 22 9:31am Rectocele December 22, 2024 9:3 1am Chief Complaint Admit Date possible vaginal prolapse December 22 9:31am AUB December 24, 2024 12: 48pm 2 Y FU March 11, 2025 8:18a m Reason for Visit Admit Date Abnormal uterine bleeding December 22 9:31am Rectocele December 22, 2024 9:3 1am March 11, 2025 8:18a m 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 March 11, 2025 8:18am Chief Complaint Admit Date possible vaginal prolapse December 22 9:31am AUB December 24, 2024 12: 48pm 2 Y FU March 11, 2025 8:18a m *EST* NOB LMP 02/01, STARR 11/08April 05, 2025 10:39am Reason for Visit Admit Date Rectocele December 22, 2024 9:3 1am Abnormal uterine bleeding December 22 9:31am March 11, 2025 8:18a m 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 March 11, 2025 8:18am Anxiety April 05, 2025 10:3 9am Asthma April 05, 2025 10:3 9am Autoimmune thyroiditis April 05, 2025 1 0:39am H/O herpes genitalis April 05, 2025 10: 39am History of gestational diabetes mellitus (GDM) April 05, 2025 10:39am History of gestational hypertension April 05, 2025 10:39am History of marijuana use April 05, 2025 10:39am Hx of shoulder dystocia in p rior , currently April 05, 2025 10:39am Migraine headache April 05, 2025 10:3 9am April 05, 2025 10:3 9am Rectocele April 05, 2025 10:3 9am Rh negative state in antepartum period J une 2024 10:39am Supervision of high-risk April 05, 2025 10:39am Chronic anemia April 05, 2025 10:3 9am 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 April 05, 2025 10:39am Reason for Visit Admit Date Rectocele December 22, 2024 9:3 1am Abnormal uterine bleeding December 22 9:31am March 11, 2025 8:18a m 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 March 11, 2025 8:18am Anxiety Louisa 23rd, 2025 10:3 9am Asthma April 05, 2025 10:3 9am Autoimmune thyroiditis April 05, 2025 1 0:39am H/O herpes genitalis April 05, 2025 10: 39am History of gestational diabetes mellitus (GDM) April 05, 2025 10:39am History of gestational hypertension April 05, 2025 10:39am History of marijuana use April 05, 2025 10:39am Hx of shoulder dystocia in p rior , currently April 05, 2025 10:39am Migraine headache April 05, 2025 10:3 9am Missed April 05, 2025 10:3 9am April 05, 2025 10:3 9am Rectocele April 05, 2025 10:3 9am Rh negative state in antepartum period J une 2024 10:39am Supervision of high-risk April 05, 2025 10:39am Chronic anemia April 05, 2025 10:3 9am 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 April 05, 2025 10:39am Additional Source Comments INFORMATION SOURCE (unrecogn ized section and content) DATE CREATED AUTHOR 01/04/2019 [facility] DATE CREATED AUTHOR AUTHOR'S ORGANIZ ATION 06/19/2019 [facility] DATE CREATED AUTHOR AUTHOR'S ORGANIZ ATION 11/10/2020 [facility] DATE CREATED AUTHOR AUTHOR'S ORGANIZ ATION 01/04/2023 [facility] DATE CREATED AUTHOR AUTHOR'S ORGANIZ ATION 2023 [facility] DATE CREATED AUTHOR AUTHOR'S ORGANIZ ATION 06/02/2023 [employer] DATE CREATED AUTHOR AUTHOR'S ORGANIZ ATION 03/02/2024 [facility] DATE CREATED AUTHOR AUTHOR'S ORGANIZ ATION 08/11/2024 [facility] DATE CREATED AUTHOR AUTHOR'S ORGANIZ ATION 01/02/2025 [facility] DATE CREATED AUTHOR AUTHOR'S ORGANIZ ATION 01/18/2025 [facility] DATE CREATED AUTHOR AUTHOR'S ORGANIZ ATION 03/20/2025 [facility] DATE CREATED AUTHOR AUTHOR'S ORGANIZ ATION 03/24/2025 [facility] DATE CREATED AUTHOR AUTHOR'S ORGANIZ ATION 04/06/2025 [facility] Reason for Visit (unrecogniz ed section and content) Reason Comments Syncope patient states she h ad a fainting spell this morning, which aren't really unusual for her but she was concerned that she has sharp pains with some of her heart beats. Diagnosed with sivan's but unsure when thyroid levels last checked. Reason Comments Follow-up 1 WK F/U FOR ILLNESS . FEELS BETTER Reason Comments Follow-up PAINFUL SWOLLEN LUMP IN GROIN AREA X3-4 DAYS Reason Comments Results NO ADDITIONAL CONCER NS Reason Comments Chills Nasal Congestion Associated with body aches x 1 day . Pt has not tested for covid or flu at this time Reason Comments Pelvic Pain Pelvic pain, lower b ack pain, difficulty urinating x 4 days Reason Comments Illness HX ANEMIA VERY TIRED NO ENERGY, LEFT ANKLE HEEL PAINFUL Reason Comments Follow-up 6 WEEK F/U LABS. C/O RIGHT SHOULDER PAIN X 1 MONTH WITH TINGLING OFF/ON. NORMAL ROM BUT LIMITS HER ABILITY TO DO DAILY ACTIVITIES. Reny Lorenzana RN - 10/31/2020 6:57 PM [...] Care Teams (unrecognized sec tion and content) [employer] Relationship Specialty Start Date End Date Chrystal Alamo PA-C [address] [place] [address] PCP - General 06/16/19 Chrystal Alamo PA-C [address] [place] [address] [facility] [employer] Relationship Specialty Start Date End Date Robert Alamohel B, PA-C [address] [place] [address] PCP - General 06/16/19 Chrystal Alamo B, PA-C [address] [place] [address] [facility] 05/14/22 Team Status: Active Member Role Status Dates Chrystalann-marie WrightCally PA, PA Primary Care Provider Active Team Status: Inactive Member Role Status Dates Chrystalann-marie WrightSchlater PA, PA Primary Care Provider, Referr ing Provider Active Dr. Esme Baker MD Attending Provider Active Team Status: Inactive Member Role Status Dates Chrystalann-marie WrightCally PA, PA Primary Care Provider Active Dr. Esme Baker MD Attending Provider, Referr ing Provider Active Team Status: Inactive Member Role Status Dates Chrystalann-marie WrightCally PA, PA Primary Care Provider, Referr ing Provider Active Dr. Brandi Freeman DO Attending Provider Activ e Team Status: Inactive Member Role Status Dates Chrystalann-marie WrightSchlater PA, PA Primary Care Provider, Referr ing Provider Active Marybel Torres CNM Attending Provider Active Team Status: Inactive Member Role Status Dates Chrystalann-marie WrightCally PA, PA Primary Care Provider, Referr ing Provider Active Dr. Anson Richter MD Attending Provider Active Team Status: Inactive Member Role Status Dates Chrystal Wrightenhall PA, PA Primary Care Provider Active Dr. Brandi Freeman DO Attending Provider, Refe rring Provider Active Team Status: Inactive Member Role Status Dates Chrystalann-marie WrightCally PA, PA Primary Care Provider Active Dr. Anson Richter MD Attending Provider, Referring Provi adrian Active Team Status: Inactive Member Role Status Dates Chrystal Cally PA, PA Primary Care Provider, Referr ing Provider Active Bethany Cedillo LITURGICAL MUSIC DIRECTOR, LITURGICAL MUSIC DIRECTOR-C Attending Provider Active Team Status: Inactive Member Role Status Dates Chrystal Schlater PA, PA Primary Care Provider Active Bethany Cedillo LITURGICAL MUSIC DIRECTOR, LITURGICAL MUSIC DIRECTOR-C Attending Provider, Referring Provider Active Team Status: Inactive Member Role Status Dates Chrystal Claly PA, PA Primary Care Provider Active Dr. Fermín Rodrigues MD Emergency Provider Active [employer] Relationship Specialty Start Date End Date CallyRobertChrystal B, PA-C [address] [place] [address] PCP - General 06/16/19 SchlaterChrystal villatoro B, PA-C [address] [place] [address] [facility] Team Status: Inactive Member Role Status Dates Chrystalann-marie Alamo PA, PA Primary Care Provider Active Maryble Torres CNM Attending Provider, Referring Pro vider Active Team Status: Inactive Member Role Status Dates Chrystalann-marie Vallejoall PA, PA Primary Care Provider Active Dr. Fermín Rodrigues MD Attending Provider, Emergency Provi adrian Active Team Status: Inactive Member Role Status Dates Chrystalann-marie Vallejoall PA, PA Primary Care Provider Active Marybel Torres CNM Attending Provider Active Team Status: Active Member Role Status Dates Chrystalann-marie Vallejoall PA, PA Primary Care Provider Active Dr. Brandi Freeman DO Attending Provider, Referring Provider, Other Provider Active Team Status: Active Member Role Status Dates Chrystalann-marie WrightSchlater PA, PA Primary Care Provider Active Dr. Esme Baker MD Admit Provid er, Attending Provider, Other Provider Active Team Status: Inactive Member Role Status Dates Chrystal Alamo PA, PA Primary Care Provider, Referr ing Provider Active Cee Alston LITURGICAL MUSIC DIRECTOR, LITURGICAL MUSIC DIRECTOR-C Attending Provider Active Team Status: Active Member Role Status Dates Chrystalann-marie Vallejoall PA, PA Primary Care Provider Active Dr. Esme Baker MD Admit Provider, Other Prov ider Active Ara Roach CNM Attending Provider Active Team Status: Inactive Member Role Status Dates Chrystalann-marie Vallejoall PA, PA Primary Care Provider Active Dr. Esme Baker MD Admit Provider, Attending Provider Active [employer] Relationship Specialty Start Date End Date CallyChrystal villatoro B, PA-C [address] [place] [address] PCP - General 06/16/19 Chrystal Alamo PA-C [address] [place] [address] PCP - [facility] PCP 05/14/22 [employer] Relationship Specialty Start Date End Date Chrystal Alamo PA-C [address] [place] [address] PCP - General 06/16/19 Chrystal Alamo PA-C [address] [place] [address] PCP - [facility] PCP 05/14/22 [employer] Relationship Specialty Start Date End Date Chrystal Alamo PA-C [address] [place] [address] PCP - General 06/16/19 Chrystal Alamo PA-C [address] [place] [address] PCP - [facility] PCP 05/14/22 Team Status: Inactive Member Role Status Dates CURTIS Keyes Primary Care Provider Active Start: September 14, 2024 End: September 14, 2024 Dr. Anson Richter MD Attending Provider Active Sta rt: September 14, 2024 End: September 14, 2024 Dr. Anson Richter MD Referring Provider Active Sta rt: September 14, 2024 End: September 14, 2024 Team Status: Inactive Member Role Status Dates CURTIS Keyes Primary Care Provider Active Start: December 22, 2024 End: December 22, 2024 CURTIS Keyes Referring Provider Active Start: December 22, 2024 End: December 22, 2024 Dr. Esme Baker MD Attending Provider Active Start: December 22, 2024 End: December 22, 2024 Team Status: Inactive Member Role Status Dates Chrystal Alamo PA, PA Primary Care Provider Active Start: December 22, 2024 End: December 22, 2024 Dr. Esme Baker MD Attending Provider Active Start: December 22, 2024 End: December 22, 2024 Dr. Esme Baker MD Referring Provider Active Start: December 22, 2024 End: December 22, 2024 Team Status: Active Member Role Status Dates Chrystal Alamo PA, PA Primary Care Provider Active Start: December 24, 2024 Dr. Esme Baker MD Attending Provider Active Start: December 24, 2024 Dr. Esme Baker MD Referring Provider Active Start: December 24, 2024 Team Status: Inactive Member Role Status Dates Chrystal Alamo PA, PA Primary Care Provider Active Start: December 24, 2024 End: December 24, 2024 Dr. Esme Baker MD Attending Provider Active Start: December 24, 2024 End: December 24, 2024 Dr. Esme Baker MD Referring Provider Active Start: December 24, 2024 End: December 24, 2024 Team Status: Inactive Member Role Status Dates Chrystalann-marie Alamo PA, PA Primary Care Provider Active Start: March 11, 2025 End: March 11, 2025 Chrystalann-marie Alamo PA, PA Referring Provider Active Start: March 11, 2025 End: March 11, 2025 Dr. Anson Richter MD Attending Provider Active Sta rt: March 11, 2025 End: March 11, 2025 Team Status: Inactive Member Role Status Dates Chrystalann-marie Alamo PA, PA Primary Care Provider Active Start: March 11, 2025 End: March 11, 2025 Dr. Anson Richter MD Attending Provider Active Sta rt: March 11, 2025 End: March 11, 2025 Dr. Anson Richter MD Referring Provider Active Sta rt: March 11, 2025 End: March 11, 2025 Team Status: Inactive Member Role Status Dates Crhystalann-marie Alamo PA, PA Primary Care Provider Active Start: April 05, 2025 End: April 05, 2025 Chyrstalann-marie Alamo PA, PA Referring Provider Active Start: April 05, 2025 End: April 05, 2025 Dr. Branid Freeman DO Attending Provider Activ e Start: April 05, 2025 End: April 05, 2025 Team Status: Active Member Role Status Dates CURTIS Keyes Primary Care Provider Active Start: April 05, 2025 Dr. Brandi Freeman DO Attending Provider Activ e Start: April 05, 2025 Dr. Brandi Freeman DO Referring Provider Activ e Start: April 05, 2025 Team Status: Active Member Role Status Dates CURTIS Keyes Primary Care Provider Active Start: April 06, 2025 Dr. Esme Baker MD Attending Provider Active Start: April 06, 2025 Dr. Esme Baker MD Other Provider Active Start: April 06, 2025 Team Status: Inactive Member Role Status Dates CURTIS Keyes Primary Care Provider Active Start: April 06, 2025 End: April 06, 2025 Dr. Esme Baker MD Attending Provider Active Start: April 06, 2025 End: April 06, 2025 Dr. Esme Baker MD Referring Provider Active Start: April 06, 2025 End: April 06, 2025 Goals (unrecognized section and content) Goals may be documented in a n alternate sectionGoals may be documented in an alternate sectionGoals may be documented in an alternate sectionGoals may be documented in an alternate sectionGoals may be documented in an alternate sectionGoals may be documented in an alternate sectionGoals may be documented in an alternate sectionGoals may be documented in an alternate sectionGoals may be documented in an alternate sectionGoals may be documented in an alternate sectionGoals may be documented in an alternate sectionGoals may be documented in an alternate sectionGoals may be documented in an alternate section FOR RECORDS PERTAINING TO PATIENTS WHO ARE [...] BE BASED ON THE PRIMARY CLINICAL RECORDS. [facility] [employer] [facility] provides no warranty or guarantee of the accuracy or completeness of information in this document.
--- NOTE | 2025-04-06 22:37 | POSTOPAN2_ITS ---
Anesthesia Postop Eval I Sum Postop Eval Completion status Anesthesia document: Postop Eval 1 completed: Yes Anesthesia Postop Eval I Summary Anesthesia Postop Eval I Summary: Anesthesia Postop Eval I: Assessment Summary Airway patent Yes 04/06/25 15:05 TOOL [email or web address] Spontaneous unlabored Yes 04/06/25 15:05 TOOL [email or web address] [email or web address] respirations Mental status Awake,Calm 04/06/25 15:05 TOOL [email or web address] [email or web address] nausea No 04/06/25 15:05 TOOL [email or web address] [email or web address] Vomiting No 04/06/25 15:05 TOOL [email or web address] Anesthesia Postop Eval I: Fluid Summary Crystalloid volume administer 500 04/06/25 15:05 TOOL [email or web address] (ml) Colloids volume administered ( ml) Blood Product volume administered (ml) Total IV fluid infused 500 04/06/25 15:05 TOOL [email or web address] Anesthesia Postop Eval I: Summary Notes Anesthesia Complication No 04/06/25 15:05 TOOL [email or web address] Anesthesia Complication Comment: Post-operative progress note Anesthesia: Postop Eval II Evaluation Mental status: Awake and Calm Pain Level: 1 nausea: No Vomiting: No Complications Anesthesia Complication: No
--- NOTE | 2025-04-06 22:37 | PCM.POSTANE2 ---
Anesthesia Postop Eval I Sum Postop Eval Completion status Anesthesia document: Postop Eval 1 completed: Yes Anesthesia Postop Eval I Summary Anesthesia Postop Eval I Summary: Anesthesia Postop Eval I: Assessment Summary Airway patent Yes 04/06/25 15:05 [email or web address] Spontaneous unlabored Yes 04/06/25 15:05 [email or web address] respirations Mental status Awake,Calm 04/06/25 15:05 [email or web address] nausea No 04/06/25 15:05 [email or web address] [email or web address] Vomiting No 04/06/25 15:05 [email or web address] Anesthesia Postop Eval I: Fluid Summary Crystalloid volume administer 500 04/06/25 15:05 [email or web address] (ml) Colloids volume administered ( ml) Blood Product volume administered (ml) Total IV fluid infused 500 04/06/25 15:05 [email or web address] Anesthesia Postop Eval I: Summary Notes Anesthesia Complication No 04/06/25 15:05 [email or web address] Anesthesia Complication Comment: Post-operative progress note Anesthesia: Postop Eval II Evaluation Mental status: Awake and Calm Pain Level: 1 nausea: No Vomiting: No Complications Anesthesia Complication: No
[2025-04-08 16:10] LABS: Endomysial Antibody IgA Negative (Negative); Immunoglobulin A 139 mg/dL (87-352); t-Transglutaminase IgA <2 U/mL (0-3)
== END 2025-04-06 17:29 | disposition home or self-care (01) ==
LOC: SDC 12:06 → AC 12:08
PROVIDERS: Obstetrics & Gynecology; PCP Physician Assistant Medical; Referring Provider Obstetrics & Gynecology; Visit Provider Obstetrics & Gynecology
PROC: (CPT 59820; principal; 2025-04-06 13:45)
DX: O02.1 Missed abortion (principal); O99.011 Anemia complicating pregnancy, first trimester; O98.311 Other infections with a predominantly sexual mode of transmission complicating pregnancy, first trimester; A60.00 Herpesviral infection of urogenital system, unspecified; O99.281 Endocrine, nutritional and metabolic diseases complicating pregnancy, first trimester; E06.3 Autoimmune thyroiditis; O26.891 Other specified pregnancy related conditions, first trimester; Z67.91 Unspecified blood type, Rh negative; Z79.890 Hormone replacement therapy; Z86.32 Personal history of gestational diabetes; Z87.59 Personal history of other complications of pregnancy, childbirth and the puerperium; Z87.891 Personal history of nicotine dependence
CPT/HCPCS: 59820; 01965; 82607; 82728; 82784; 83036; 83516; 83540; 83550; 84439; 84443; 85025; 86255; 86850; 86900; 86901; 88305; J2405

== ENCOUNTER → 2025-05-13 | Outpatient (CLI) | payer OTHER, MEDICAID, SELFPAY ==
[2025-05-13 15:24] LABS: Hematocrit 35.0 % (37-47); Hemoglobin 11.4 g/dL (12.0-15.0); Immature Granulocytes Count 0.020 X10^3/uL (0.0-0.0); Mean Corp Hgb Conc 32.6 g/dL (32-36); Mean Corpuscular Volume 84.7 fL (81-99); Mean Platelet Vol. 8.8 fl (6.2-12.0); NRBC Flagged by Analyzer 0 % (0-5); Platelet Count 267 K/mm3 (150-450); RBC Distribution Width CV 13.0 % (11.6-14.6); RBC Distribution Width SD 40.1 fl (35.1-43.9); Red Blood Count 4.13 M/mm3 (4.2-5.4); White Blood Count 5.1 K/mm3 (4.4-11.0)
[2025-05-13 15:59] LABS: hCG Titer Quant., Serum 16 mIU/mL (<9 non-preg)
== END | disposition home or self-care (01) ==
LOC: BWCLAB 15:08
PROVIDERS: PCP Physician Assistant Medical; Visit Provider Obstetrics & Gynecology
DX: N93.9 Abnormal uterine and vaginal bleeding, unspecified (principal)
CPT/HCPCS: 36415; 84439; 84443; 84702; 85025

== ENCOUNTER → 2025-05-15 | Outpatient (CLI) | payer OTHER, MEDICAID, SELFPAY ==
--- OUTSIDE RECORDS SUMMARY | 2025-05-15 11:47 | XMS RPT_ITS | CCD ---
Author Organization [facility] CliniSywy Care Team Providers Care Ropeman Name Role Phone MILADIS DOHERTY Admitting UnavailMILADIS John Attending Unavailabl e AA NO PCP, NO PCP Primary Care Unavailable Chrystal Alamo Unavailable Unavailable Chrystal Alamo Unavailable Unavailable Vianney Guerra Unavailable Unavailable Alexa Beyer Unavailable Unavailable Wallace Lion Unavailable Unavailable Chrystal Alamo Primary Care Provider [phone] Chrystal Alamo Unavailable [phone] Unavailable Unavailable Chrystal Alamo Unavailable Vianney Guerra Unavailable Ferny Rooney Unavailable Unavailable Paulino Christian Unavailable ZOIE ALAMO Attending ZOIE Chambers Referring ZOIE Chambers Primary Care Lacho Chawla, Ms. Kayleigh Peters Attending Cas Chawla, Ms. Kayleigh Peters Referring Unavail able ZOIE ALAMO Primary Care ZOIE Chambers Referring Unavai ZOIE Flores Primary Care YesivaZOIE Mar Attending Lacho Santiago, Dr. Tayler Butcher Attending Sasha Santiago, Dr. Tayler Butcher Referring Unav ailZOIE Zayas Primary Care Lacho Boyer, MsAgatha Marie Referring [...] Cally PA-C, Chrystal B Primary Care Provider Tesuque PA-C, Chrystal B Unavailable Ms. Chrystal Alamo Primary Care Sasha Lancaster, MsAgatha Carrington Attending Unavailab julieta WrightCally PA, PA Chrystal Primary Care Provider [place]uque PA, PA Chrystal Referring Provider Dr. Esme Baker Attending Provider [phone] Dr. Brandi Freeman Attending Provider [phone] OTF Torres Attending Provider [phone] Anson Richter Attending Provider Cally PA, PA Chrystal Primary Care Provider Tesuque PA, PA Chrystal Referring Provider Dr. Esme Baker Attending Provider [phone] Dr. Brandi Freeman Attending Provider [phone] OTF Torres Attending Provider Dr. Anson Richter Attending Provider Poth FISHER NET, FISHER NET-C Bethany Attending Provider [phone] Cally PA, PA Chrystal Primary Care Provider Cally PA, PA Chrystal Referring Provider Cally PA, PA Chrystal Primary Care Provider Cally PA, PA Chrystal Referring Provider [phone] Dr. Brandi Freeman Attending Provider Cally PA, PA Chrystal Primary Care Provider Tesuque PA, PA Chrystal Referring Provider OTF Torres Attending Provider Dr. Esme Baker Attending Provider Cally PA, PA Chrystal Primary Care Provider Tesuque PA, PA Chrystal Referring Provider Dr. Brandi Freeman Referring Provider Dr. Brandi Freeman Other Provider Dr. Esme Baker Admit Provider Dr. Esme Baker Other Provider OTF Roach Attending Provider Fortune FISHER NET, FISHER NET-C Cee Attending Provider [place]uque PA, PA Chrystal Primary Care Provider [place]uque PA, PA Chrystal Referring Provider OTF Torres Attending Provider Dr. Brandi Freeman Attending Provider Dr. Esme Baker Attending Provider Dr. Brandi Freeman Referring Provider Dr. Brandi Freeman Other Provider Dr. Esme Baker Admit Provider Dr. Esme Baker Other Provider OTF Roach Attending Provider Fortune FISHER NET, FISHER NET-C Cee Attending Provider CALLY, CHRYSTAL B Primary Care Unavailable CALLY, CHRYSTAL B Primary Care Unavailable CALLY, CHRYSTAL B Primary Care Unavailable CALLY, CHRYSTAL B Primary Care Unavailable CALLY, CHRYSTAL B Primary Care Unavailable ROE ALLAN Attending Unavailable [place] PA-C, Chrystal B Primary Care Provider [place] PA-C, Chrystal B Unavailable CALLY, CHRYSTAL STEVO Primary Care Unavaila LEVAR Unger Attending Unavailable [place] PA-C, Chrystal B Primary Care Provider [place] PA-C, Chrystal B Unavailable [place] PA, Chrystal Primary Care Provider Dr. Anson Richter MD Attending Provider Dr. Anson Richter MD Referring Provider Cally ACEVEDO, Chrystal Referring Provider Dr. Esme Baker MD Attending Provider Dr. Esme Baker MD Referring Provider Cally PA, Chrystal Primary Care Provider Dr. Anson Richter MD Attending Provider CALLY, CHRYSTAL B Attending Unavailable CALLY, CHRYSTAL B Primary Care Unavailable CALLY, CHRYSTAL B Attending Unavailable CALLY, CHRYSTAL B Primary Care Unavailable Dr. Anson Richter MD Referring Provider Dr. Brandi Freeman DO Attending Provider Dr. Brandi Freeman DO Referring Provider Dr. Esme Baker MD Other Provider [place] PA, Chrystal Primary Care Provider [place] PA, Chrystal Referring Provider Dr. Esme Baker MD Attending Provider [phone] Dr. Esme Baker MD Referring Provider Cally PA, Chrystal Primary Care Unavailabl e Anson Richter Referring Unavailable Anson Richter Attending Unavailable Cally ACEVEDO, Chrystal Primary Care UnavailEsme Shepard Attending Unavailable Cally PA, Chrystal Primary Care Unavailabl e Anson Richter Referring Unavailable Anson Richter Attending Unavailable Cally PA, [facility] Unavailabl e [place] PA, [place] Referring Unavailabl e Anson Richter Attending Unavailable Brandi Freeman Attending Unavailabl e Cally PA, [facility] Unavailabl e Cally PA, [place] Referring Unavailabl e [place] PA, [facility] Unavailabl e Cally PA, [place] Referring Unavailabl e Marcanthmercy, Esme Attending Unavailable [place] PA, [facility] Unavailabl e Marcanthony, Esme Attending Unavailable MarcanthonyEsme Consulting Unavailable Cally PA, [facility] Unavailabl e Cally PA, [place] Referring Unavailabl e Marcanthmercy, Esme Attending Unavailable [place] PA, [facility] Unavailabl e Cally PA, [place] Referring Unavailabl e Marcanthony, Esme Attending Unavailable Cally PA, [facility] Unavailabl e Marcanthmercy, Esme Referring Unavailable Marcanthmercy, Esme Attending Unavailable Cally PA, [facility] Unavailabl e Marcanthony, Esme Referring Unavailable Marcanthony, Esme Attending Unavailable Cally PA, [facility] Unavailabl e Anson Richter Attending Unavailable Anson Richter Referring Unavailable Brandi Freeman Attending Unavailabl e Cally PA, [facility] Unavailabl e Brandi Freeman Referring Unavailabl e [place] PA, [facility] Unavailabl e Anson Richter Referring Unavailable Anson Richter Attending Unavailable Cally PA, [facility] Unavailabl e Marcanthmercy, Esme Referring Unavailable Marcanthony, Esme Attending Unavailable Allergies Allergy Classification Reported Allergen(s) Allergy Type Date of Onset Reaction(s) Facility Acetaminophen / HYDROcodone (12 sources) Acetaminophen / HYDROcodone; Translations: [Vicodin TABS] Drug Allergy [facility] [address] Work Phone: Latex (20 sources) Latex rubber gloves; Translations: [Latex Gloves] Substance Allergy [address] Work Phone: Opioid Agonists (20 sources) HYDROmorphone; Translations: [Dilaudid] Drug Allergy [facility] [address] Work Phone: (20 sources) Acetaminophen / HYDROcodone; Translations: [Vicodin TABS] Drug Allergy 1 [facility], Other [facility] Work Phone: (20 sources) HYDROcodone; Translations: [hydrocodone] Drug Allergy 3 [facility], Other [facility] Work Phone: Comment on above: it makes me pass ou t (20 sources) HYDROmorphone; Translations: [Dilaudid] Drug Allergy [facility] Work Phone: (20 sources) HYDROmorphone; Translations: [HYDROMORPHONE] Drug Allergy 1 [facility], Other [facility] (20 sources) Latex rubber gloves; Translations: [Latex Gloves] Allergy to drug (finding) [facility] [address] Work Phone: (20 sources) natural latex rubber; Translations: [LATEX] Allergy to substance (finding) 3 [facility] (8 sources) guaiFENesin / HYDROcodone Drug Allergy 3 Other [facility] (7 sources) Latex Allergy to substance 3 [facility] Work Phone: (20 sources) natural latex rubber Allergy to substance 3 Itching [facility] Comment on above: redness (4 sources) Acetaminophen Drug Allergy 4 other [facility] (5 sources) Acetaminophen / HYDROcodone; Translations: [HYDROCODONE-ACET AMINOPHEN] Drug Allergy 3 [facility] (3 sources) HYDROCODONE-GUAIF ENESIN; Translations: [HYDROCODONE-GUAI FENESIN] Propensity to adverse reactions to drug (disorder) 3 [facility] (1 source) Acetaminophen Drug Allergy 4 [facility] (1 source) HYDROmorphone Drug Allergy 5 [facility] (1 source) natural latex rubber Drug allergy (disorder) 5 [facility] Medications Current Medications Medication Drug Class(es) [...] 20-Sep-2021 Active take 1 capsule by mo [facility] twice daily acyclovir 200 mg oral capsule ; 1 cap(s) orally 2 times a day Quantity: 0 Refills: 0 Ordered: 20-Sep-2021 Selina Lacey Status: Discontinued Generic Substitution Allowed [id number] 200 actuat albuterol 0.09 mg/actuat metered dose inhaler (16 sources) beta2-Adrenergic Agonist Start: 03-26-2025 Albut ezio Sulfate (Ventolin Hfa) 90 mcg/actuation HFA aerosol inhaler Active 2 NMA INHALATION EVERY 6 HOURS as needed for shortness of breath or wheezing March 26, 2025 12:00am Start: 01-30-2023 End: 01-30-2024 take 2 puff(s) by inhalation every four hours for wheezing albuterol (Ventolin HFA) 90 mcg/actuation inhaler Indications: Moderate persistent asthma without complication (HHS-HCC) Inhale 2 puffs every 4 hours if [...] day Quantity: 0 Refills: 0 Ordered: 22-Sep-2021 Tara Aleman Start: 22-Sep-2021 Generic Substitution Allowed amoxicillin 500 [...] hours Quantity: 42 Refills: 0 Ordered: 29-Dec-2021 Kayleigh Seth Start [...] after meals cholecalciferol 0.05 mg oral capsule (6 sources) Vitamin D Start: 03-26-2025 take 1 [...] package. 21 tablet 01/05/2025 01/11/2025 Active Mv-Mins 16-Bzxo-Oaxyo No.1-Dha (Pnv-Sidney) 28-1-300 mg capsule (20 sources) Start: 05-16-2023 Mv-Mins 71-Iro n-Folic No.1-Dha (Pnv-Sidney) 28-1-300 mg capsule Active 1 NMA PO DAILY May 16, 2023 12:00am Start: 05-16-2023 take 1 capsule by mo [facility] once daily Mv-Mins 15-Wklz-Xtcwh No.1-Dha (Pnv-Sidney) 28-1-300 mg capsule Active 1 CAP PO DAILY May 16, 2023 12:00am Start: 05-16-2023 take 1 capsule by mo [facility] once daily Mv-Mins 10-Fwzq-Bgzvm No.1-Dha (Pnv-Sidney) 28-1-300 mg capsule Active 1 CAP PO DAILY May 15, 2023 11:00pm Start: 05-16-2023 take 1 capsule by mouth once M v-Mins 74-Teow-Wqiji No.1-Dha (Pnv-Sidney) 28-1-300 mg capsule Active CAP PO May 15, 2023 11:00pm Start: 05-16-2023 take 1 capsule by mouth once M v-Mins 22-Zqsi-Xrfxk No.1-Dha (Pnv-Sidney) 28-1-300 mg capsule Active CAP PO May 16, 2023 12:00am norethindrone acetate 5 mg o ral tablet (1 source) Start: 05-13-2025 Norethindrone Acetate 5 mg tablet Active 5 mg PO .COMPLEX 30 0 May 13, 2025 12:00am 5 mg PO BID x 3 days and then once daily for remainder no115/iron/folic ac id ( 19 ORAL) (4 sources) no115/i kadie/folic acid ( 19 ORAL) Take by mouth. Active no115/i kadie/folic acid ( 19 ORAL) Take by mouth. [...] aspirin 81 mg delayed release oral tablet (20 sources) Platelet Aggregation Inhibitor, Nonsteroidal Anti-inflammatory Drug [...] DO Start : 29-Dec-2021 Complete bifidobacterium animalis [id number] unt / lactobacillus acidophilus [id number] unt oral capsule (20 sources) End: 10-18-2023 take 1 capsule by mouth once daily L. acidophilus/Bifid . animalis 32 billion cell capsule Take 1 capsule by mouth once daily. 0 10/18/2023 Discontinued (Therapy completed) Probiotic CAPS Q uantity: 0 Refills: 0 Ordered: 19-Dec-2021 DO Active Blood-Glucose Meter misc (9 sources) Start: 10-25-2023 End: 12-22-2024 Blood-Glucose Meter misc Dis continued 0 .MEDSUPPLY 1 0 October 25, 2023 1:00am December 22, 2024 9:36am As directed- Test fasting and 2 hours after meals Start: 10-25-2023 End: 12-22-2024 Blood-Glucose Meter misc Dis continued 0 .MEDSUPPLY 1 October 25, 2023 1:00am December 22, 2024 9:36am As directed- Test fasting and 2 hours after meals 60 actuat budesonide 0.08 mg/actuat / formoterol fumarate 0.0045 mg/actuat metered dose inhaler (7 sources) Corticosteroid, beta2-Adrenergic Agonist Start: 01-24-2022 take 1 puff(s) by inhalation twice daily Budesonide-Formoterol Fumarate 80-4.5 MCG/ACT Inhalation Aerosol INHALE 1 PUFFS Twice daily May inhale 1-2 puffs every 4 hours PRN up to 12 puffs/day. RINSE MOUTH AFTER EVERY USE Quantity: 1 Refills: 3 Ordered: 24-Jan-2022 wh-TMMOBJ-GxzlawqmKayleigh Hogue Start : 24-Jan-2022 Active busPIRone hydrochloride 10 [...] DAILY. Quantity: 1 Refills: 11 Ordered: 24-Jan-2022 oc-NPACPT-Wdqtc DO, Brett Start : 24-Jan-2022 Active Start: [...] Start: 09-08-2019 take 1 tablet by lizzette once daily Citalopram Hydrobromide 40 MG Oral Tablet take 1 tablet by mouth once daily Quantity: 30 Refills: 5 Chrystal Alamo PA-C Start : 08-Sep-2019 Active dexamethasone 1 mg/ml / neomycin 3.5 mg/ml / polymyxin b [id number] unt/ml ophthalmic suspension (1 source) Aminoglycoside Antibacterial, Polymyxin-class Antibacterial, Corticosteroid Start: 11-22-2020 take 2 drop(s) into the eye(s) four times daily Yxqjpndk-Fwrahzxpl-Dotrepnl 3.5-86778-1.1 Ophthalmic Suspension INSTILL 2 DROPS INTO LEFT EYE 4 TIMES DAILY X 7 DAYS Quantity: 1 Refills: 0 Alexa Redd Start : 22-Nov-2020 Active 5 ML Bottle docusate sodium 100 mg oral tablet (17 sources) Start: 12-19-2021 take 2 tablets by mouth twice daily Docusate Sodium 100 MG Oral Tablet Take 2 tabs BID. Quantity: 120 Refills: 6 Ordered: 19-Dec-2021 Paulino Decker DO Start : 19-Dec-2021 Active Start: 09-08-2019 take 1 capsule by mo [facility] twice daily as needed Colace 100 MG Oral Capsule TAKE 1 CAPSULE TWICE DAILY NEEDED. Refills: 0 DO Start : 08-Sep-2019 Active Aqr-Qd-Cjduifikt 0.18/0.215/0.25 MG-25 MCG Oral Tablet (3 sources) Progestin, Estrogen Start: 09-08-2019 take 1 tablet by mouth once daily Ewj-Vg-Iwxkmdgjx 0.18/0.215/0.25 MG-25 MCG Oral Tablet TAKE 1 TABLET DAILY. Quantity: 1 Refills: 11 Chrystal Alamo PA-C Start : 08-Sep-2019 Active 28 Tablet Pack take 1 tablet by lizzette th once daily norgestimate-ethinyl estradiol triphasic (0.18 mg-0.215 mg-0.250 mg)-25 mcg oral tablet ; 1 tab(s) orally once a day Quantity: 0 Refills: 0 Ordered: 11-Oct-2019 LexxRiat daniel Status: Other Generic Substitution Allowed Comments: Source=Surescripts, [...] 09-08-2019 take 1 tablet by lizzette th twice daily Ferrous Sulfate 325 (65 Fe) MG Oral Tablet TAKE 1 TABLET TWICE DAILY. Quantity: 60 Refills: 5 Chrystal Alamo PA-C Start : 08-Sep-2019 Active take 1 tablet by lizzette th once daily ferrous sulfate (as elemental iron) 45 mg oral tablet, extended release ; 1 tab(s) orally once a day Quantity: 0 Refills: 0 Ordered: 20-Sep-2021 Selina Lacey Generic Substitution Allowed Flash Glucose Scanning Reade r (Freestyle Sanjay 2 Ona) misc (14 sources) Start: 10-30-2023 End: 12-22-2024 Flash Glucose Scanning Reade r (Freestyle Sanjay 2 Ona) misc Discontinued 0 .Route 1 0 October 30, 2023 1:00am December 22, 2024 9:36am As directed Start: 10-30-2023 End: 12-22-2024 Flash Glucose Scanning Reade r (Freestyle Sanjay 2 Ona) misc Discontinued 0 .Route 1 October 30, 2023 1:00am December 22, 2024 9:36am As directed Start: 10-30-2023 Flash Glucose Scanning Ona (Freestyle Sanjay 2 Ona) misc Active 0 .Route 1 October 30, 2023 1:00am As directed Start: 10-30-2023 Flash Glucose Scanning Ona (Freestyle Sanjay 2 Ona) misc Active 0 .Route 1 October 30, 2023 12:00am As directed Flash Glucose Sensor (Freest yle Sanjay 2 Sensor) kit (14 sources) Start: 10-30-2023 End: 12-22-2024 Flash Glucose Sensor (Freest yle Sanjay 2 Sensor) kit Discontinued 0 .Route 1 0 October 30, 2023 1:00am December 22, 2024 9:36am As directed Start: 10-30-2023 End: 12-22-2024 Flash Glucose Sensor (Freest yle Sanjay 2 Sensor) kit Discontinued 0 .Route 1 October 30, 2023 [...] mL levothyroxine sodium 0.05 mg oral tablet (20 sources) l-Thyroxine Start: 07-12-2024 End: 03-11-2025 take 1 tablet by mouth once daily Levothyroxine 50 mcg tablet Discontinued 50 ug PO daily 90 0 January 11, 2025 5:10pm March 11, 2025 [...] Reductase Inhibitor Antibacterial, Sulfonamide Antimicrobial Start: 10-11-20 19 End: 10-20-19 20 take 1 tablet by mouth every [...] should be taken with plenty of water. Pmy-Cl-Lwnaaujbw 0.18/0.215/0.25 MG-25 MCG Oral Tablet (5 sources) Start: 09-08-20 take 1 tablet by mouth once daily Zrc-Qz-Qunlqiujq 0.18/0.215/0.25 MG-25 MCG Oral Tablet TAKE 1 TABLET DAILY. Quantity: 1 Refills: 11 Ordered: 19-Dec-2021 Paulino Christian DO Start : 08-Sep-2019 Active valACYclovir 500 mg oral tablet (13 sources) Herpesvirus Nucleoside Analog DNA Polymerase Inhibitor, Herpes Simplex Virus Nucleoside Analog DNA Polymerase Inhibitor, Herpes Zoster Virus Nucleoside Analog DNA Polymerase Inhibitor Start: 12-03-19 End: 11-24-19 take 1 tablet by mouth once daily Valacyclovir 500 mg tablet Discontinued 500 mg PO daily 12 04December 03, 2023 1:00am December 18, 2023 7:04pm [...] 3 01-30-2023 Episodic Deficiency and other anemia (10 sources) Chronic anemia; Translations: [Anemia, unspecified] 03-26-2025 [...] 11-08-2021 Episodic Other aftercare (1 source) Other penitentiary (current) drug therapy; Translations: [OTH NURSING HOME CURRENT DRUG THERAPY] Onset: 9 Episodic Other [...] or complication] 01-02-2024 Episodic Other complications of (18 sources) Anemia of ; Translations: [Anemia complicating [...] unspecified trimester] 05-16-2023 Episodic Comment on above: [id number], STARR 01/02/24 PC Tye, Shawn , STARR 11/08/25, Oneil Gamble,Kate, Shawn Other complications of (20 sources) History of premature labor; Translations: [Supervision [...] pre-term labor] 05-27-2023 Episodic Other complications of (12 sources) Traumatic injury during ; Translations: [Injury, [...] or complication] 11-27-2023 Episodic Other complications of (10 sources) Missed miscarriage; Translations: [Missed ] 04-05-2025 Episodic Other complications of (1 source) Missed ; Translations: [Missed ] Onset: 5 Episodic Other congenital anomalies (20 sources) Thyroglossal [...] Translations: [Chalazion] Episodic Other female genital disorders (17 sources) Abnormal uterine bleeding; Translations: [Abnormal uterine and vaginal bleeding, unspecified] 12-22-2024 Chronic Comment on above: labs US, offered anjelica teda if desired. labs ordered and bed side ultrasound 4-5mm lining and adnexal cyst seen.progesterone course given Other female genital disorders (1 source) Abnormal [...] 1 & 2; Other infections; including parasitic (20 sources) History of sexually transmitted disease; Translations: [...] Episodic Other nutritional; endocrine; and metabolic disorders (16 sources) Ketosis; Translations: [Other specified metabolic disorders] [...] Translations: [Allergic rhinitis, cause unspecified] 05-27-2023 Chronic Ovarian cyst (3 sources) Cyst of ovary; Translations: [Unspecified ovarian cyst, unspecified side] Onset: 5 05-13-2025 Episodic Comment on above: right complex 3-[address] Polyhydramnios and other problems of amniotic cavity (18 sources) Oligohydramnios; Translations: [Oligohydramnios, third trimester, not applicable or unspecified] 12-13-2023 Episodic Comment on above: proceed with IOL Prolapse of female genital organs (20 sources) Disorder of rectum; Translations: [Rectocele] Onset: [...] health status] 11-06-2021 Episodic Residual codes; unclassified (10 sources) History of gestational hypertension; Translations: [Personal [...] initial encounter] Onset: 5 Episodic Substance-related disorders (10 sources) History of clinical finding in subject; Translations: [History of marijuana use] 03-26-2025 Chronic Comment on above: informed pt of tox s creen initial & random Syncope (20 sources) Syncope; Translations: [Syncope and collapse] 10-16-2023 Episodic Thyroid disorders (20 sources) Thyroiditis; Translations: [Thyroiditis, unspecified] Onset: 3 01-30-2023 Chronic Unclassified (1 source) 4 [facility] OB - COMING FROM 05-29-2021 Comment on above: 4 [facility] OB - COMING [facility] Unclassified (1 source) DATES & ANATOMY EDC: [...] source) Acute pain of right shoulder 01-05-2025 Viral infection (20 sources) Genital herpes simplex; [...] ankle and joints of left foot] Onset: 11-24-2024 Episodic Other screening for suspected conditions (not [...] Test Name Value Interpretation Reference Range Facility CBC W/Diff, Automatedon -3 Absolute Lymph 1.61 X10 3/uL Normal 0.83-4.51 [facility] Comment on above: Performed By: #### L 100.0100, L700.8000, L501.9520, L506.0400 #### [facility] [address] [place], [address] Absolute Neut 2.7 X10 3/uL Normal 2.0-7.7 [facility] Comment on above: Performed By: #### L 100.0100, L700.8000, L501.9520, L506.0400 #### [facility] [address] [place], [address] Basophils/100 WBC (Bld) 1.0 % Normal 0-1 [facility] Comment on above: Performed By: #### L 100.0100, L700.8000, L501.9520, L506.0400 #### [facility] [address] [place], [address] Eosinophils/100 WBC (Bld) 5.7 % High 0-5 [facility] Comment on above: Performed By: #### L 100.0100, L700.8000, L501.9520, L506.0400 #### [facility] [address] [place], [address] Erythrocyte distribution width (RBC) [Ratio] 13.0 % Normal 11.6-14.6 [facility] Comment on above: Performed By: #### L 100.0100, L700.8000, L501.9520, L506.0400 #### [facility] [address] [place], [address] Hematocrit (Bld) [Volume fraction] 35.0 % Low 37-47 [facility] Comment on above: Performed By: #### L 100.0100, L700.8000, L501.9520, L506.0400 #### [facility] [address] [place], [address] Hemoglobin (Bld) [Mass/Vol] 11.4 g/dL Low 12.0-15.0 [facility] Comment on above: Performed By: #### L 100.0100, L700.8000, L501.9520, L506.0400 #### [facility] [address] [place], [address] IG% 0.400 Normal 0.0-0.9 [facility] Comment on above: Result Comment: IG% - Immature Granulocytes (promyelocytes, myelocytes and metamyelocytes) > 1% indicates that a LEFT SHIFT is Present. Performed By: #### L 100.0100, L700.8000, L501.9520, L506.0400 #### [facility] [address] [place], [address] Lymphocytes/100 WBC (Bld) 31.6 % Normal 19-41 [facility] Comment on above: Performed By: #### L 100.0100, L700.8000, L501.9520, L506.0400 #### [facility] [address] [place], [address] MCH (RBC) [Entitic mass] 27.6 pg Normal 27.0-32.0 [facility] Comment on above: Performed By: #### L 100.0100, L700.8000, L501.9520, L506.0400 #### [facility] [address] [place], [address] MCHC (RBC) [Mass/Vol] 32.6 g/dL Normal 32-36 [facility] Comment on above: Performed By: #### L 100.0100, L700.8000, L501.9520, L506.0400 #### [facility] [address] [place], [address] MCV (RBC) [Entitic vol] 84.7 fL Normal 81-99 [facility] Comment on above: Performed By: #### L 100.0100, L700.8000, L501.9520, L506.0400 #### [facility] [address] [place], [address] Monocytes/100 WBC (Bld) 8.6 % Normal 0-10 [facility] Comment on above: Performed By: #### L 100.0100, L700.8000, L501.9520, L506.0400 #### [facility] [address] [place], [address] Neutrophils/100 WBC (Bld) 52.7 % Normal 47-70 [facility] Comment on above: Performed By: #### L 100.0100, L700.8000, L501.9520, L506.0400 #### [facility] [address] [place], [address] Nucleated RBC (Bld) [#/Vol] 0 10*3/uL Normal 0-5 [facility] Comment on above: Performed By: #### L 100.0100, L700.8000, L501.9520, L506.0400 #### [facility] [address] [place], [address] Platelet mean volume (Bld) [Entitic vol] 8.8 fL Normal 6.2-12.0 [facility] Comment on above: Performed By: #### L 100.0100, L700.8000, L501.9520, L506.0400 #### [facility] [address] [place], [address] Platelets (Bld) [#/Vol] 267 10*3/uL Normal 150-450 [facility] Comment on above: Performed By: #### L 100.0100, L700.8000, L501.9520, L506.0400 #### [facility] [address] [place], [address] RBC (Bld) [#/Vol] 4.13 10*6/uL Low 4.2-5.4 [facility] Comment on above: Performed By: #### L 100.0100, L700.8000, L501.9520, L506.0400 #### [facility] [address] [place], [address] RDW SD 40.1 fl Normal 35.1-43.9 [facility] Comment on above: Performed By: #### L 100.0100, L700.8000, L501.9520, L506.0400 #### [facility] [address] [place], [address] WBC (Bld) [#/Vol] 5.1 10*3/uL Normal 4.4-11.0 [facility] Comment on above: Performed By: #### L 100.0100, L700.8000, L501.9520, L506.0400 #### [facility] [address] [place], [address] Glaucoma Specialist Office Visit Reporton 05-13-2025 Glaucoma Specialist Office Visit Report [facility] [address], [address] [place] [address] OFFICE VISIT Date of Service: 05/13/25 MR#: [id number] Acct: [id number] Name: JOHNY TORRES Rep #: [id number] : 2000 Provider: Dr. Esme orellana MD Age/Sex: 25/F Location: [facility] [place] Status: Signed Intake Vital Signs 04/30/25 10:00 05/13/25 14:49 05/13/25 14:50 Height 5 ft 3 in 5 ft 3 in 5 ft 3 in Weight: 134 lb 137 lb 2 oz BMI 23.7 24.3 BP 111/71 111/72 Intake Visit Reasons: Post op bleeding FU Material Chaser Required: No Is patient in pain?: No Allergies Latex, Natural Rubber Allergy (Mild, Verified 05/13/25 14:49) Itching hydrocodone (From Vicodin) Allergy (Verified 05/13/25 14:49) other hydromorphone (From Dilaudid) Adverse Reaction (Intermediate, Verified 05/13/25 14:49) passed out Medications ???Medication ???Instructions ???Recorded ???Confirmed ???Type multivit-min no.71-iron fum 28 1 cap PO DAILY 05/16/23 05/13/25 H istory mg-folate no.1 1 mg-dha 300 mg capsule (PNV-Sidney) levothyroxine 50 mcg tablet 50 mcg PO QDAY #90 tabs 03/11/25 0 05/13/25 Rx albuterol sulfate 90 mcg/actuation 2 puff inhalation Q6H PRN 05/13/25 History aerosol inhaler (Ventolin HFA) shortness of breath or wheezing cholecalciferol (vitamin D3) 50 50 mcg PO QDAY 03/26/25 05/13/25 H istory mcg (2,000 unit) capsule norethindrone acetate 5 mg tablet 5 mg PO .COMPLEX #30 tabs 5 05/13/25 Rx Is last menstrual period known: No Post menopausal: No Patient : No : Yes [facility] Medical History (Updated 05/13/25 @ 15:[address] 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 Autoimmune thyroiditis Vaginal delivery Oligohydramnios Gestational diabetes mellitus (GDM) affecting , antepartum Abnormal glucose affecting Shoulder dystocia during labor and delivery Rh negative status during H/O herpes genitalis Surgical History History of throat surgery History of tonsillectomy [place] teeth extracted Family History Grandmother Ovarian cancer, Onset Age: 70 Paternal great grandmother Colon cancer, Onset Age: 60 Paternal Social History adopted: No household members: spouse and children housing: house number of children: 2 current occupational status: unemployed current occupation: [employer] pets and animals: Yes pets and [...] 1-2 times per week duration: 30-45 minutes/day stacey/rastafarian: Episcopalian seatbelt use: always do you feel safe at home: Yes additional social history: Shawn Torres HPI Post op bleeding FU Details: JOHNY TORRES is a 25 year old who presents for persistent bleeding, light red ot brown for three weeks after d and c. she had a negative test at home. she feels tired, no fevers no foul discharge. History 3 Elective abortions Hx Para 2 Spontaneous abortions 1 Hx # Term Pregnancies Ectopic pregnancies Hx # Pregnancies Multiple births # of living children 2 Past Pregnancies Del. Date Name GA/Weeks Outcome Route Bth Weight Infant Gen Labor Lgth Anesthesia Del Locatn Provider FOB 11/07/21 Tye 39 live - full term 8#6oz [facility] 12/17[facility]23 Kate 37 live - full term 6lbs 14oz Female epidural [facility] Olivia Escobar 04/06/25 9 spontaneous Delivery Date: 11/07/21 Last Updated by: Esme Baker MD IOL- small pelvis, shoulder dystocia and clavicle fracture Delivery Date: 12/17/23 Last Updated by: Nicole Mehta IOL oligo [email or web address] ROS Const Constitutional: Reports fatigue; Denies fever(s), headache(s), increased appetite, poor appetite, weight gain or weight loss : Reports as per HPI; Denies difficulty voiding, dysuria, urinary frequency, urinary incontinence, urinary hesitancy (more content not included)... Normal [facility] T4 Free Directon 05-13-2025 T4 FREE DIRECT 1.10 ng/dL Normal 0.76-1.46 [facility] Comment on above: Performed By: #### L 100.0100, L700.8000, L501.9520, L506.0400 #### [facility] [address] [place], [place], [id number] Thyroid Stim Hormone (TSH)on 05-13-2025 TSH 1.060 uIU/mL Normal 0.300-4.200 [facility] Comment on above: Performed By: #### L 100.0100, L700.8000, L501.9520, L506.0400 #### [facility] [address] [place], [place], [address] hCG Titer Quant., Serumon HCG QUANT. 16 mIU/mL High <9 non-preg [facility] Comment on above: Result Comment: Gest ational Age 0.2-1 Week: 5-50 mIU/mL 1-2 Weeks: 50-500 mIU/mL 2-3 Weeks: 100-5000 mIU/mL 3-4 Weeks: 500-10,000 mIU/mL 4-5 Weeks:1000-50,000 mIU/mL 5-6 Weeks: 10,000-100,000 mIU/mL 6-8 Weeks: 15,000-200,000 mIU/mL 2-3 Months:10,000-100,000 mIU/mL Performed By: #### L 100.0100, L700.8000, L501.9520, L506.0400 #### [facility] [address] [place], [address] Glaucoma Specialist Office Visit Reporton 04-30-2025 Glaucoma Specialist Office Visit Report [facility] [address], [address] [place] [address] OFFICE VISIT Date of Service: 04/30/25 MR#: [id number] Acct: [id number] Name: BRIANJOHNY RAMOS Rep #: [id number] : 2000 Provider: Dr. Esme orellana MD Age/Sex: 25/F Location: [facility] [place] Status: Signed Intake Vital Signs 04/06/25 12:51 04/30/25 10:00 Height 5 ft 3 in 5 ft 3 in Weight: 134 lb BMI 23.7 BP 111/71 Intake Visit Reasons: 2wk D C FU Material Chaser Required: No Is patient in pain?: No Allergies Latex, Natural Rubber Allergy (Mild, Verified 04/30/25 10:03) Itching hydrocodone (From Vicodin) Allergy (Verified 04/30/25 10:03) other hydromorphone (From Dilaudid) Adverse Reaction (Intermediate, Verified 04/30/25 10:03) passed out Medications ???Medication ???Instructions ???Recorded ???Confirmed ???Type multivit-min no.71-iron fum 28 1 cap PO DAILY 05/16/23 04/30/25 H istory mg-folate no.1 1 mg-dha 300 mg capsule (PNV-Sidney) levothyroxine 50 mcg tablet 50 mcg PO QDAY #90 tabs 03/11/25 0 04/30/25 Rx albuterol sulfate 90 mcg/actuation 2 puff inhalation Q6H PRN 04/30/25 History aerosol inhaler (Ventolin HFA) shortness of breath or wheezing cholecalciferol (vitamin D3) 50 50 mcg PO QDAY 03/26/25 04/30/25 H istory mcg (2,000 unit) capsule Post menopausal: No Patient : No : No [facility] Medical History Hypothyroid Low iron Anemia Thyroid disease Vasovagal syncope History of echocardiogram Former smoker 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 Abnormal uterine bleeding Autoimmune thyroiditis Vaginal delivery Oligohydramnios Gestational diabetes mellitus (GDM) affecting , antepartum Abnormal glucose affecting Shoulder dystocia during labor and delivery Rh negative status during H/O herpes genitalis Surgical History History of throat surgery History of tonsillectomy [place] teeth extracted Family History Grandmother Ovarian cancer, Onset Age: 70 Paternal great grandmother Colon cancer, Onset Age: 60 Paternal Social History adopted: No household members: spouse and children housing: house number of children: 2 current occupational status: unemployed current occupation: [employer] pets and animals: Yes pets and [...] 1-2 times per week duration: 30-45 minutes/day stacey/rastafarian: Episcopalian seatbelt use: always do you feel safe at home: Yes additional social history: Shawn Torres HPI 2wk D C FU Details: JOHNY TORRES is a 25 year old who presents for postop, she had some bleedinga fter and cramping but then was fine, History 3 Elective abortions Hx Para 2 Spontaneous abortions 1 Hx # Term Pregnancies Ectopic pregnancies Hx # Pregnancies Multiple births # of living children 2 Past Pregnancies Del. Date Name GA/Weeks Outcome Route Bth Weight Gen Labor Lgth Anesthesia Del Locatn Provider FOB 11/07/21 Tye 39 live - full term 8#6oz Male epidural Claus Escobar 12/17/23 Ellfranki 37 live - full term 6lbs 14oz Female epidural [facility] Olivia Escobar 04/06/25 9 spontaneous Delivery Date: 11/07/21 Last Updated by: Esme Baker MD IOL- small pelvis, shoulder dystocia and clavicle fracture Delivery Date: 12/17/23 Last Updated by: Nicole Mehta IOL oligo [email or web address] ROS Const Constitutional: Reports system reviewed and no additional complaints, except as documented GI GI: Denies abdominal pain, cramping, nausea or vomiting : Denies pelvic pain, urinary frequency, urinary incontinence, urinary urgency, vaginal discharge, vaginal dryness or vaginal odor Exam Const General: cooperative, healthy appearing, comfortable and no acute distress GI Inspection: normal to inspection Palpation: soft and nontender Coding Level of Care Code No Charge Diagnoses Missed O02.1 Assess (more content not included)... Normal [facility] Celiac Disease Profileon ENDOMYSIAL IGA Negative Normal Negative [facility] Comment on above: Performed By: #### L 501.9520, L506.0400 #### [facility] [address] [place], [address] IMMUNOGLOB A QN 139 mg/dL Normal 87-352 [facility] Comment on above: Result Comment: Perf ormed at: - [facility] [address] [id number] Weather Stripper: Td Sanders PhD, Phone: [phone] Performed By: #### L 501.9520, L506.0400 #### [facility] [address] [place], [place], [id number] tTG IGA <2 Normal 0-3 [facility] Comment on above: Result Comment: Nega tive 0 - 3 Weak Positive 4 - 10 Positive >10 Tissue Transglutaminase (tTG) has been identified as the endomysial antigen. Studies have demonstr- ated that endomysial IgA antibodies have over 99% specificity for gluten sensitive enteropathy. Performed By: #### L 501.9520, L506.0400 #### [facility] [address] [place], [place], [address] Absolute lymphocyte countOrd ered By: Brandi Pacheco on 04-06-2025 Lymphocytes Auto (Unsp spec) [#/Vol] 1.61 10*3/uL 0.83-4.51 [facility] Absolute neutrophil countOrd ered By: Brandi Pacheco on 04-06-2025 Neutrophils (Bld) [#/Vol] 5.3 10*3/uL 2.0-7.7 [facility] Automated lymphocyte count a s percentage of total leukocytesOrdered By: Brandi Pacheco on 04-06-2025 Lymphocytes/100 WBC Auto (Unsp spec) 21.6 % 19-41 [facility] Basophil percentageOrdered B y: Brandi Pacheco on 04-06-2025 Basophils/100 WBC (Bld) 0.7 % 0-1 [facility] CBC W/Diff, Automatedon - Absolute Lymph 1.61 X10 3/uL Normal 0.83-4.51 [facility] Comment on above: Performed By: #### L 501.9520, L506.0400 #### [facility] [address] [place], [place], [address] Absolute Neut 5.3 X10 3/uL Normal 2.0-7.7 [facility] Comment on above: Performed By: #### L 501.9520, L506.0400 #### [facility] [address] [place], [address] Basophils/100 WBC (Bld) 0.7 % Normal 0-1 [facility] Comment on above: Performed By: #### L 501.9520, L506.0400 #### [facility] [address] [place], [address] Eosinophils/100 WBC (Bld) 0.9 % Normal 0-5 [facility] Comment on above: Performed By: #### L 501.9520, L506.0400 #### [facility] [address] [place], [address] Erythrocyte distribution width (RBC) [Ratio] 13.0 % Normal 11.6-14.6 [facility] Comment on above: Performed By: #### L 501.9520, L506.0400 #### [facility] [address] [place], [address] Hematocrit (Bld) [Volume fraction] 31.7 % Low 37-47 [facility] Comment on above: Performed By: #### L 501.9520, L506.0400 #### [facility] [address] [place], [address] Hemoglobin (Bld) [Mass/Vol] 10.9 g/dL Low 12.0-15.0 [facility] Comment on above: Performed By: #### L 501.9520, L506.0400 #### [facility] [address] [place], [address] IG% 0.300 Normal 0.0-0.9 [facility] Comment on above: Result Comment: IG% - Immature Granulocytes (promyelocytes, myelocytes and metamyelocytes) > 1% indicates that a LEFT SHIFT is Present. Performed By: #### L 501.9520, L506.0400 #### [facility] [address] [place], [address] Lymphocytes/100 WBC (Bld) 21.6 % Normal 19-41 [facility] Comment on above: Performed By: #### L 501.9520, L506.0400 #### [facility] [address] [place], [address] MCH (RBC) [Entitic mass] 28.5 pg Normal 27.0-32.0 [facility] Comment on above: Performed By: #### L 501.9520, L506.0400 #### [facility] [address] [place], [address] MCHC (RBC) [Mass/Vol] 34.4 g/dL Normal 32-36 [facility] Comment on above: Performed By: #### L 501.9520, L506.0400 #### [facility] [address] [place], [address] MCV (RBC) [Entitic vol] 83.0 fL Normal 81-99 [facility] Comment on above: Performed By: #### L 501.20, L506.0400 #### [facility] [address] [place], [address] Monocytes/100 WBC (Bld) 5.9 % Normal 0-10 [facility] Comment on above: Performed By: #### L 501.9520, L506.0400 #### [facility] [address] [place], [address] Neutrophils/100 WBC (Bld) 70.6 % High 47-70 [facility] Comment on above: Performed By: #### L 501.9520, L506.0400 #### [facility] [address] [place], [address] Nucleated RBC (Bld) [#/Vol] 0 10*3/uL Normal 0-5 [facility] Comment on above: Performed By: #### L 501.9520, L506.0400 #### [facility] [address] [place], [address] Platelet mean volume (Bld) [Entitic vol] 9.5 fL Normal 6.2-12.0 [facility] Comment on above: Performed By: #### L 501.9520, L506.0400 #### [facility] [address] [place], [address] Platelets (Bld) [#/Vol] 251 10*3/uL Normal 150-450 [facility] Comment on above: Performed By: #### L 501.9520, L506.0400 #### [facility] [address] [place], [address] RBC (Bld) [#/Vol] 3.82 10*6/uL Low 4.2-5.4 [facility] Comment on above: Performed By: #### L 501.9520, L506.0400 #### [facility] [address] [place], [address] RDW SD 39.2 fl Normal 35.1-43.9 [facility] Comment on above: Performed By: #### L 501.9520, L506.0400 #### [facility] [address] [place], [address] WBC (Bld) [#/Vol] 7.5 10*3/uL Normal 4.4-11.0 [facility] Comment on above: Performed By: #### L 501.9520, L506.0400 #### [facility] [address] [place], [address] Discharge Instructionon 03-15 Discharge Instruction [facility] Medical Records Department [address] [place] [address] Instructions for Home/Discharge Instructions 04/06/25 1443 MR#: [id number] Acct: [id number] Name: JOHNY TORRES Rep #: [id number] : 2000 24 From: Esme Baker MD PCP: CURTIS Mena Status:REG SDC Discharge [...] Up With: Esme Baker MD When: Call [phone] to schedule appointment. Test Results: Test results from this visit will be discussed in further detail at your follow-up appointment, if applicable. Discharge Plan Admission Attending Provider: Esme Baker Primary Care Provider: Chrystal Alamo Instructions Print Language: Liberian Discharge Orders/Prescriptions Prescriptions: No Action PNV-Sidney 28-1-300 mg capsule 1 cap PO DAILY [...] can be placed): Home, Self Care 04/06/25 7689 Esme Baker MD CC: CURTIS Mena Signed Normal [facility] Eosinophil percentageOrdered By: Brandi Pacheco on 04-06-2025 Eosinophils/100 WBC (Bld) 0.9 % 0-5 [facility] Erythrocyte distribution wid th ratioOrdered By: Brandi Pacheco on 04-06-2025 Erythrocyte distribution width (RBC) [Ratio] 13.0 % 11.6-14.6 [facility] Erythrocyte distribution wid th standard deviationOrdered By: Brandi Pacheco on 04-06-2025 Erythrocyte distribution width (RBC) [Ratio] 39.2 fl 35.1-43.9 [facility] Ferritinon 04-06-2025 Ferritin [Mass/Vol] 14 ng/mL Low 22-378 [facility] Comment on above: Performed By: #### L 501.9520, L506.0400 #### [facility] [address] [place], [place], [address] Hematocrit Auto (Bld) [Volum e fraction]Ordered By: Brandi Pacheco on 04-06-2025 Hematocrit (Bld) [Volume fraction] 31.7 % Low 37-47 [facility] Hemoglobin A1con 04-06-2025 HbA1c (Bld) [Mass fraction] 5.2 % Normal <=5.6 [facility] Comment on above: Result Comment: Norm al < 5.7 % Prediabetic 5.7 - 6.4 % Diabetic >or= 6.5 % Please note range changes. Performed By: #### L 501.9520, L506.0400 #### [facility] [address] [place], [place], [address] Hemoglobin A1c percentageOrd ered By: Brandi Pacheco on 04-06-2025 HbA1c (Bld) [Mass fraction] 5.2 % <5.7 [facility] Comment on above: Normal < 5.7 % Predi abetic 5.7 - 6.4 % Diabetic >or= 6.5 % Please note range changes. Hemoglobin measurementOrdere d By: Brandi Pacheco on 04-06-2025 Hemoglobin (Bld) [Mass/Vol] 10.9 g/dL Low 12.0-15.0 [facility] Immature granulocytes/100 WB C Auto (Bld)Ordered By: Brandi Pacheco on 04-06-2025 Immature granulocytes/100 WBC (Bld) 0.300 % 0.0-0.9 [facility] Comment on above: IG% - Immature Granu locytes (promyelocytes, myelocytes and metamyelocytes) > 1% indicates that a LEFT SHIFT is Present. Iron measurement (mass/mass) Ordered By: Brandi Pacheco on 04-06-2025 Iron (Unsp spec) [Mass/Mass] 61 ug/dL 50-170 [facility] Iron+Iron Binding Capacityon 04-06-2025 Iron [Mass/Vol] 61 ug/dL Normal 50-170 [facility] Comment on above: Performed By: #### L 501.9520, L506.0400 #### [facility] [address] [place], [address] IRON SATURATION 15.0 Normal 13-59 [facility] Comment on above: Performed By: #### L 501.9520, L506.0400 #### [facility] [address] [place], [address] TIBC 406 ug/dL Normal 250-450 [facility] Comment on above: Performed By: #### L 501.9520, L506.0400 #### [facility] [address] [place], [address] UIBC 345 ug/dL Normal 228-428 [facility] Comment on above: Performed By: #### L 501.9520, L506.0400 #### [facility] [address] [place], [address] MCV (mean corpuscular volume ) determinationOrdered By: Brandi Pacheco on 04-06-2025 MCV (RBC) [Entitic vol] 83.0 fL 81-99 [facility] MR/POSTOP.ANEon 04-06-2025 MR/POSTOP.ANE [facility] Medical Records Department [address] [place] [address] Anesthesia Postop Eval I 04/06/25 1505 MR#: [id number] Acct: [id number] Name: JOHNY OTRRES Rep #: [id number] : 2000 24 From: Roe Waller CRNA PCP: CURTSI Mena Status:REG SDC Y Race: C Location: [place] [address] Anesthesia: Postop Eval I Current Vital Signs [...] document: Postop Eval 1 completed: Yes 04/06/25 1505 Date Roe Waller WIND TECHNICIAN Cosigner Signature: Date CC: Signed Normal [facility] MR/[id number] 04-06-2025 [facility] Medical Records Department [address] [place] [address] Anesthesia Postop Eval II 04/06/252236 MR#: [id number] Acct: [id number] Name: JOHNY TORRES Rep #: [id number] : 2000 24 From: Praveen Valenzuela MD PCP: CURTIS Mena [facility] [place] Race: C [place] [facility] [place]hesia Postop Eval I Sum Postop Eval Completion status Anesthesia document: Postop Eval 1 completed: Yes Anesthesia Postop Eval I Summary Anesthesia Postop Eval I Summary: Anesthesia Postop Eval I: Assessment Summary Airway patent Yes 04/06/25 15:05 WIND TECHNICIAN.SOBR Spontaneous unlabored Yes 04/06/25 15:05 WIND TECHNICIAN.SOBR respirations Mental status Awake,Calm 04/06/25 15:05 WIND TECHNICIAN.SOBR nausea No 04/06/25 15:05 WIND TECHNICIAN.SOBR Vomiting No 04/06/25 15:05 WIND TECHNICIAN.SOBR Anesthesia Postop Eval I: Fluid Summary Crystalloid volume administer 500 04/06/25 15:05 WIND TECHNICIAN.SOBR (ml) Colloids volume administered ( ml) Blood Product volume administered (ml) Total IV fluid infused 500 04/06/25 15:05 WIND TECHNICIAN.SOBR Anesthesia Postop Eval I: Summary Notes Anesthesia Complication No 04/06/25 15:05 WIND TECHNICIAN.SOBR Anesthesia Complication Comment: Post-operative progress note Anesthesia: Postop Eval II Evaluation Mental status: Awake and Calm Pain Level: 1 nausea: No Vomiting: No Complications Anesthesia Complication: No 04/06/252237 Date Praveen Valenzuela MD Cosigner Signature: Date CC: Signed Normal [facility] Mean corpuscular hemoglobin (MCH) determinationOrdered By: Brandi Pacheco on 04-06-2025 MCH (RBC) [Entitic mass] 28.5 pg 27.0-32.0 [facility] Mean corpuscular hemoglobin concentration (MCHC) determinationOrdered By: Brandi Pacheco on 04-06-2025 MCHC (RBC) [Mass/Vol] 34.4 g/dL 32-36 [facility] Mean platelet volume determi nationOrdered By: Brandi Pacheco on 04-06-2025 Platelet mean volume (Bld) [Entitic vol] 9.5 fL 6.2-12.0 [facility] Monocyte percentageOrdered B y: Brandi Pacheco on 04-06-2025 Monocytes/100 WBC (Bld) 5.9 % 0-10 [facility] Neutrophil percentageOrdered By: Brandi Pacheco on 04-06-2025 Neutrophils/100 WBC (Bld) 70.6 % High 47-70 [facility] No Panel InformationOrdered By: Brandi Pacheco on 04-06-2025 Unsaturated Iron Binding Capacity 345 ug/dL 228-428 [facility] Nucleated red blood cell per centageOrdered By: Brandi Pacheco on 04-06-2025 Nucleated RBC/100 WBC (Bld) [Ratio] 0 % 0-5 [facility] Operative Reporton Operative Report [facility] Medical Records Department [address] [place] [address] Operative Report 04/06/25 1442 MR#: [id number] Acct: [id number] Name: JOHNY TORRES Rep #: [id number] : 2000 24 From: Esme Baker MD PCP: CURTIS Mena Status:[facility] Location: AC20-1 Procedures Urinary/Genital 52xxx-59xxx: [address]005 Surg Trtmt missed Ab, 1TM Operative Report (Standard) Operative Information Date of Procedure: 04/06/25 Pre-Operative Diagnosis: see problem list comments Post-Operative Diagnosis: same Surgery/Procedure Performed: suction dilation and curettage machine tender: No Type of Anesthesia: IV Sedation and [...] urine and anterior lip of the cervix was grasped and the uterus sounded to 12 cm. Cervix was progressively dilated to allow passage of a 12mm suction curette. Progressive passes were made removing the retained products of conception without complication. Sharp curettage confirmed complete removal of the retained products. All instruments were removed from the vagina and excellent hemostasis was noted and the patient was taken to recovery in stable condition. Surgical Findings: non viable iup 9 weeks Complications Complications: No 04/06/25 5927 Cosigner Signature (if applicable): CC: Dr. Esme Baker MD; CURTIS Mena Signed Normal [facility] Platelet countOrdered By: Marcelo Pacheco on 04-06-2025 Platelets (Bld) [#/Vol] 251 10*3/uL 150-450 [facility] RBC Auto (Bld) [#/Vol]Ordere d By: Brandi Pacheco on 04-06-2025 RBC (Bld) [#/Vol] 3.82 10*6/uL Low 4.2-5.4 [facility] Serum or plasma IgA measurem ent (mass/volume)Ordered By: Brandi Pacheco on 04-06-2025 IgA [Mass/Vol] 139 mg/dL 87-352 [facility] Comment on above: Performed at: [facility] [employer] [id number] Director: Td Sanders PhD, Phone: [phone] Serum or plasma ferritin brenda surement (mass/volume)Ordered By: Brandi Pacheco on 04-06-2025 Ferritin [Mass/Vol] 14 ng/mL Low 22-378 [facility] Serum or plasma iron saturat ion measurement (mass fraction)Ordered By: Brandi Pacheco on 04-06-2025 Iron saturation [Mass fraction] 15.0 % 13-59 [facility] Serum tissue transglutaminas e (tTG) IgA antibody assay (units/volume)Ordered By: Brandi Pacheco on 04-06-2025 tTG IgA Qn (S) <2 U/mL 0-3 [facility] Comment on above: Negative 0 - 3 Weak Positive 4 - 10 Positive >10 Tissue Transglutaminase (tTG) has been identified as the endomysial antigen. Studies have demonstr- ated that endomysial IgA antibodies have over 99% specificity for gluten sensitive enteropathy. Surgery Specimen Level Josiane 04-06-2025 Surgery Specimen Level IV Patient Age/Sex Location Account Attending Physician BRIANJOHNY [place] [facility] [id number]. Esme Baker MD Specimen: [id number] Received: 04/06/25 Status: ARIES Smith Num: [id number] Spec Type: PROD CONC Subm Dr: Dr. Esme Baker MD HEADER OPERATION: Dilation and curettage, suction PRE-OP DIAGNOSIS: Missed TISSUE SUBMITTED: A- Products of conception MICROSCOPIC DIAGNOSIS A. Uterine contents, dilation and suction curettage: * Acutely inflamed and focally necrotic decidua, immature placental villi, and a few pieces of necrotic appearing soft tissue, consistent with products of conception from a missed MICROSCOPIC DESCRIPTION Slides are reviewed. GROSS DESCRIPTION A. Received in formalin labeled with the patient's name and date of . Designated as retained products of conception is an 8.0 x 7.7 x 2.0 cm aggregate of tabor-pink to red tissue fragments, mucoid material and clotted blood. Chorionic villi is identified. Banking Services Advisor sections are submitted in 1 cassette. [place] 04/07/2025 CPT:76310 Patient Age/Sex Location Account Attending Physician JOHNY [place]ORRES [facility] [id number]. Esme Baker MD Signed (signature on file) Dr. Josep Ivory MD 04/14/25 1533 Normal [facility] Comment on above: Performed By: #### L 100.0100, L700.8000, L501.9520, L506.0400 #### [facility] [place], [address] T4 Free Directon 04-06-2025 T4 FREE DIRECT 1.30 ng/dL Normal 0.76-1.46 [facility] Comment on above: Performed By: #### L 501.9520, L506.0400 #### [facility] [address] [place], [address] T4 freeOrdered By: Brandi Pacheco on 04-06-2025 Free T4 [Mass/Vol] 1.30 ng/dL 0.76-1.46 [facility] TSH DL <= 0.005 mIU/L QnOrde red By: Brandi Pacheco on 04-06-2025 TSH Qn 1.310 uIU/mL 0.300-4.200 [facility] Thyroid Stim Hormone (TSH)on 04-06-2025 TSH 1.310 uIU/mL Normal 0.300-4.200 [facility] Comment on above: Performed By: #### L 501.9520, L506.0400 #### [facility] [address] [place], [address] Type AND Screenon 04-06-2025 Ab SCREEN GEL Negative Normal [facility] Comment on above: Order Comment: [id number] C Performed By: #### L [id number], L506.0400 #### [facility] [address] [place], [address] Urine Cultureon 04-06-2025 URC Culture exhibits no growth. Normal [facility] Comment on above: Performed By: #### L 501.9520, L506.0400 #### [facility] [address] [place], [address] Vitamin B12on 04-06-2025 Cobalamin (Vitamin B12) [Mass/Vol] 465 pg/mL Normal 180-914 [facility] Comment on above: Performed By: #### L 501.9520, L506.0400 #### [facility] [address] [place], [address] Vitamin B12 ser/plasOrdered By: Brandi Pacheco on 04-06-2025 Cobalamin (Vitamin B12) [Mass/Vol] 465 pg/mL 180-914 [facility] White blood cell (WBC) count Ordered By: Brandi Pacheco on 04-06-2025 WBC (Bld) [#/Vol] 7.5 10*3/uL 4.4-11.0 [facility] Amphetamine detection with 1 000 ng/mL as cutoffOrdered By: Brandi Pacheco on 04-05-2025 Amphetamines Screen method >1000 ng/mL Ql (U) Negative < 200 ng/mL [facility] No Panel InformationOrdered By: Brandi Pacheco on 04-05-2025 Urine Buprenorphine Qualitative Negative < 200 ng/mL [facility] Urine Oxycodone Screen Negative < 100 ng/mL [facility] Glaucoma Specialist Office Visit Reporton 04-05-2025 Glaucoma Specialist Office Visit Report [facility] [address], [address] [place] [address] OFFICE VISIT Date of Service: 04/05/25 MR#: [id number] Acct: [id number] Name: BRIANJOHNY RAMOS Rep #: [id number] : 2000 Provider: Dr. Brandi Gray DO Age/Sex: 24/F Location: [facility] [place] Status: Signed Intake Vital Signs 12/22/24 09:34 03/11/25 08:03 04/05/25 10:51 04/05/25 10:53 Height 5 ft 3 in 5 ft 3 in 5 ft 3 in 5 ft 3 in Weight: 138 lb BMI 24.4 BP 121/79 H Intake Visit Reasons: *EST* NOB LMP 02/01, STARR 11/08 Material Chaser Required: No Is patient in pain?: No Allergies Latex, Natural Rubber Allergy (Mild, Verified 04/05/25 10:49) Itching hydrocodone (From Vicodin) Allergy (Verified 04/05/25 10:49) other hydromorphone (From Dilaudid) Adverse Reaction (Intermediate, Verified 04/05/25 10:49) passed out Medications ???Medication ???Instructions ???Recorded ???Confirmed ???Type multivit-min no.71-iron fum 28 1 cap PO DAILY 05/16/23 04/05/25 H istory mg-folate no.1 1 mg-dha 300 mg capsule (PNV-Sidney) levothyroxine 50 mcg tablet 50 mcg PO QDAY #90 tabs 03/11/25 0 04/05/25 Rx albuterol sulfate 90 mcg/actuation 2 puff inhalation Q6H PRN 04/05/25 History aerosol inhaler (Ventolin HFA) cholecalciferol (vitamin D3) 50 50 mcg PO QDAY 03/26/25 04/05/25 H istory mcg (2,000 unit) capsule Last Menstrual Period: 02/01/25 Zika: Zika virus screening: Negative : Yes PFSH [facility] Medical History H/O herpes genitalis Abnormal uterine bleeding 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 Autoimmune thyroiditis Vaginal delivery Oligohydramnios Gestational diabetes mellitus (GDM) affecting , antepartum Abnormal glucose affecting Shoulder dystocia during labor and delivery Rh negative status during Surgical History History of throat surgery History of tonsillectomy [place] teeth extracted Family History Grandmother Ovarian cancer, Onset Age: 70 Paternal great grandmother Colon cancer, Onset Age: 60 Paternal Social History adopted: No household members: spouse and children housing: house number of children: 2 current occupational status: unemployed current occupation: [employer] pets and animals: Yes pets and [...] 1-2 times per week duration: 30-45 minutes/day stacey/rastafarian: Episcopalian seatbelt use: always do you feel safe [...] term 8#6oz Male epidural Claus Escobar 12/17/23 Ellfranki 37 live - full term 6lbs 14oz Female epidural [facility] Olivia Escobar Delivery Date: 11/07/21 Last Updated [...] St Visit (more content not included)... Normal [facility] Quantitative urine opiates m easurementOrdered By: Branid Pacheco on 04-05-2025 Opiates Ql (U) Negative < 300 ng/mL [facility] Screening urine fentanyl brenda surementOrdered By: Brandi Pacheco on 04-05-2025 fentaNYL Screen Ql (U) Negative [facility] Urine Drug Screen (VISTA)on 04-05-2025 AMPHETAMINES Negative Normal <1000 ng/mL [facility] Comment on above: Order Comment: UNK Performed By: #### L 501.9520, L506.0400 #### [facility] [address] [place], [address] BARBITIURATES Negative Normal < 200 ng/mL [facility] Comment on above: Order Comment: UNK Performed By: #### L [id number], L506.0400 #### [facility] [address] [facility] [address] BENZODIAZIPINE Negative Normal < 200 ng/mL [facility] Comment on above: Order Comment: UNK Performed By: #### L [id number], L506.0400 #### [facility] [address] [place], [address] BUP Ur Drug Scr Negative Normal < 200 ng/mL [facility] Comment on above: Order Comment: UNK Performed By: #### L [id number], L506.0400 #### [facility] [address] [place], [address] COCAINE Negative Normal < 300 ng/mL [facility] Comment on above: Order Comment: UNK Performed By: #### L [id number], L506.0400 #### [facility] [address] [place], [address] Fentanyl Negative Normal [facility] Comment on above: Order Comment: UNK Performed By: #### L [id number], L506.0400 #### [facility] [address] [place], [address] METHADONE Negative Normal < 300 ng/mL [facility] Comment on above: Order Comment: UNK Performed By: #### L [id number], L506.0400 #### [facility] [address] [place], [address] OPIATES Negative Normal < 300 ng/mL [facility] Comment on above: Order Comment: UNK Performed By: #### L [id number], L506.0400 #### [facility] [address] [place], [address] OXYCODONE Negative Normal < 100 ng/mL [facility] Comment on above: Order Comment: UNK Performed By: #### L [id number], L506.0400 #### [facility] [address] [place], [address] PCP Negative Normal < 25 ng/mL [facility] Comment on above: Order Comment: UNK Performed By: #### L [id number], L506.0400 #### [facility] [address] [place], [address] THC Negative Normal < 50 ng/mL [facility] Comment on above: Order Comment: UNK Performed By: #### L [id number], L506.0400 #### [facility] [address] [place], [address] Urine benzodiazepine levelOr dered By: Brandi Pacheco on 04-05-2025 Benzodiazepines Ql (U) Negative < 200 ng/mL [facility] Urine cocaine levelOrdered B y: Brandi Pacheco on 04-05-2025 Cocaine Ql (U) Negative < 300 ng/mL [facility] Urine cultureOrdered By: Jojo Pacheco on 04-05-2025 Bacteria identified Cx Nom (U) Culture exhibits no growth. [facility] Urine [id number] abinol (THC) measurementOrdered By: Brandi Pacheco on 04-05-2025 Cannabinoids Screen Ql (U) Negative < 50 ng/mL [facility] Urine phencyclidine (PCP) de tectionOrdered By: Brandi Pacheco on 04-05-2025 Phencyclidine Ql (U) Negative < 25 ng/mL [facility] HCG, TOTAL, QNon 03-23-2025 HCG Qn 609258 m[IU]/mL [facility] Comment on above: Result Comment: Refe rence Range Non or premenopausal <5 Postmenopausal <10 Values from different assay methods may vary. The use of this assay to monitor or to diagnose patients with cancer or any condition unrelated to has not been cleared or approved by the FDA or the quantitative analyst of the assay. Performed By: #### 8 396 #### [facility] [address], [address] [place] [address] Narcotics Detective: Michele Lewis MD Absolute lymphocyte countOrd ered By: Esme Baker on 03-11-2025 Lymphocytes Auto (Unsp spec) [#/Vol] 1.29 10*3/uL 0.83-4.51 [facility] Absolute neutrophil countOrd ered By: Esme Baker on 03-11-2025 Neutrophils (Bld) [#/Vol] 3.4 10*3/uL 2.0-7.7 [facility] Automated blood erythrocyte countOrdered By: Esme Baker on 03-11-2025 RBC (Bld) [#/Vol] 3.93 10*6/uL Low 4.2-5.4 [facility] Comment on above: Performed By: #### L 501.9520, L506.0400 #### [facility] [place] [place], [address] Automated blood hematocrit ( percentage)Ordered By: Esme Baker on 03-11-2025 Hematocrit (Bld) [Volume fraction] 33.0 % Low 37-47 [facility] Comment on above: Performed By: #### L 501.9520, L506.0400 #### [facility] [address] [place], [address] Automated lymphocyte count a s percentage of total leukocytesOrdered By: Esme Baker on 03-11-2025 Lymphocytes/100 WBC Auto (Unsp spec) 24.8 % 19- [facility] Basophil percentageOrdered B y: Esme Baker on 03-11-2025 Basophils/100 WBC (Bld) 1.0 % Normal 0-1 [facility] Comment on above: Performed By: #### L 501.9520, L506.0400 #### [facility] [address] [place], [address] CBC W/Diff, Automatedon 02-12 Absolute Lymph 1.29 X10 3/uL Normal 0.83-4.51 [facility] Comment on above: Performed By: #### L [id number], L506.0400 #### [facility] [address] [place], [address] Absolute Neut 3.4 X10 3/uL Normal 2.0-7.7 [facility] Comment on above: Performed By: #### L 501.9520, L506.0400 #### [facility] [address] [place], [address] IG% 0.200 Normal 0.0-0.9 [facility] Comment on above: Result Comment: IG% - Immature Granulocytes (promyelocytes, myelocytes and metamyelocytes) > 1% indicates that a LEFT SHIFT is Present. Performed By: #### L 501.9520, L506.0400 #### [facility] [address] [place], [address] Lymphocytes/100 WBC (Bld) 24.8 % Normal - [facility] Comment on above: Performed By: #### L [id number], L506.0400 #### [facility] [address] [place], [address] Nucleated RBC (Bld) [#/Vol] 0 10*3/uL Normal 0-5 [facility] Comment on above: Performed By: #### L 501.9520, L506.0400 #### [facility] [address] [place], [place], [address] RDW SD 38.5 fl Normal 35.1-43.9 [facility] Comment on above: Performed By: #### L 501.9520, L506.0400 #### [facility] [address] [place], [place], [address] Endocrinology Visit Reporton 03-11-2025 Endocrinology Visit Report [facility] [address] [place], [place] [address] OFFICE VISIT Date of Service: 03/11/25 MR#: [id number] Acct: [id number] Name: BRIANJOHNY RICHARD Rep #: [id number] : 2000 Provider: Loren Pike Age/Sex: 24/F [place] [facility] [place] Status: Signed Intake Vital Signs 12/22/24 09:34 [...] mg-folate no.1 1 mg-dha 300 mg capsule (PNV-Sidney) levothyroxine 50 mcg tablet 50 mcg PO QDAY #90 tabs 01/11/25 0 03/11/25 Rx Patient : Yes (5 w 3 d) [facility] Medical History (Updated 03/11/25 @ 08:[address] 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 Autoimmune thyroiditis Vaginal delivery Oligohydramnios Gestational diabetes mellitus (GDM) affecting , antepartum Abnormal glucose affecting Shoulder dystocia during labor and delivery Rh negative status during H/O herpes genitalis Surgical History History of throat surgery History of tonsillectomy [place] teeth extracted Family History Grandmother Ovarian cancer great grandmother Social History adopted: No household members: spouse and children number of children: 2 current occupational status: unemployed current occupation: [employer] pets and animals: Yes pets and [...] in: walking frequency: daily duration: 30-45 minutes/day stacey/rastafarian: Episcopalian seatbelt use: always do you feel safe at home: Yes additional social history: Shawn Torres [facility] HPI Chief Complaint: Thyroid Details: JOHNY FREED, [...] in c (more content not included)... Normal [facility] Eosinophil percentageOrdered By: Esme Baker on 03-11-2025 Eosinophils/100 WBC (Bld) 2.7 % Normal 0-5 [facility] Comment on above: Performed By: #### L 501.9520, L506.0400 #### [facility] [address] [facility] [place], [place], [id number] Erythrocyte distribution wid th ratioOrdered By: Esme Baker on 03-11-2025 Erythrocyte distribution width (RBC) [Ratio] 12.6 % Normal 11.6-14.6 [facility] Comment on above: Performed By: #### L 501.9520, L506.0400 #### [facility] [address] [place], [place], [address] Erythrocyte distribution wid th standard deviationOrdered By: Esme Baker on 03-11-2025 Erythrocyte distribution width (RBC) [Ratio] 38.5 fl 35.1-43.9 [facility] Hemoglobin measurementOrdere d By: Esme Baker on 03-11-2025 Hemoglobin (Bld) [Mass/Vol] 11.2 g/dL Low 12.0-15.0 [facility] Comment on above: Performed By: #### L 501.9520, L506.0400 #### [facility] [address] [place], [address] Immature granulocytes/100 WB C Auto (Bld)Ordered By: Esme Baker on 03-11-2025 Immature granulocytes/100 WBC (Bld) 0.200 % 0.0-0.9 [facility] Comment on above: IG% - Immature Granu locytes (promyelocytes, myelocytes and metamyelocytes) > 1% indicates that a LEFT SHIFT is Present. MCV (mean corpuscular volume ) determinationOrdered By: Esme Baker on 03-11-2025 MCV (RBC) [Entitic vol] 84.0 fL Normal 81-99 [facility] Comment on above: Performed By: #### L 501.9520, L506.0400 #### [facility] [address] [place], [address] Mean corpuscular hemoglobin (MCH) determinationOrdered By: Esme Baker on 03-11-2025 MCH (RBC) [Entitic mass] 28.5 pg Normal 27.0-32.0 [facility] Comment on above: Performed By: #### L 501.9520, L506.0400 #### [facility] [address] [place], [address] Mean corpuscular hemoglobin concentration (MCHC) determinationOrdered By: Esme Baker on 03-11-2025 MCHC (RBC) [Mass/Vol] 33.9 g/dL Normal 32-36 [facility] Comment on above: Performed By: #### L 501.9520, L506.0400 #### [facility] [address] [place], [address] Mean platelet volume determi nationOrdered By: Esme Baker on 03-11-2025 Platelet mean volume (Bld) [Entitic vol] 9.8 fL Normal 6.2-12.0 [facility] Comment on above: Performed By: #### L 501.9520, L506.0400 #### [facility] [address] [place], [address] Monocyte percentageOrdered B y: Esme Baker on 03-11-2025 Monocytes/100 WBC (Bld) 6.0 % Normal 0-10 [facility] Comment on above: Performed By: #### L 501.9520, L506.0400 #### [facility] [address] [place], [address] Neutrophil percentageOrdered By: Esme Baker on 03-11-2025 Neutrophils/100 WBC (Bld) 65.3 % Normal 47-70 [facility] Comment on above: Performed By: #### L 501.9520, L506.0400 #### [facility] [address] [place], [address] Nucleated red blood cell per centageOrdered By: Esme Baker on 03-11-2025 Nucleated RBC/100 WBC (Bld) [Ratio] 0 % 0-5 [facility] Platelet countOrdered By: Luciano Baker on 03-11-2025 Platelets (Bld) [#/Vol] 297 10*3/uL Normal 150-450 [facility] Comment on above: Performed By: #### L 501.9520, L506.0400 #### [facility] [address] [place], [address] T4 Free Directon 03-11-2025 T4 FREE DIRECT 1.30 ng/dL Normal 0.76-1.46 [facility] Comment on above: Performed By: #### L 501.9520, L506.0400 #### [facility] [address] [place], [place], [address] T4 freeOrdered By: Anson Richter on 03-11-2025 Free T4 [Mass/Vol] 1.30 ng/dL 0.76-1.46 [facility] TSH DL <= 0.005 mIU/L QnOrde red By: Anson Richter on 03-11-2025 TSH Qn 2.830 uIU/mL 0.300-4.200 [facility] Thyroid Stim Hormone (TSH)on 03-11-2025 TSH 2.830 uIU/mL Normal 0.300-4.200 [facility] Comment on above: Performed By: #### L 501.9520, L506.0400 #### [facility] [address] [place], [address] Vitamin D,25 Hydroxyon 03-11 Vitamin D 25-OH 27.1 ng/mL Low 30-100 [facility] Comment on above: Result Comment: Ariane min D Status Deficiency: <20 ng/mL (50nmol/L) Insufficiency: 20-30 ng/mL (50-75 nmol/L) Sufficiency: 30-100 ng/mL (75-250 nmol/L) Toxicity: >100 ng/mL (>250 nmol/L) Performed By: #### L 501.9520, L506.0400 #### [facility] [address] [place], [place], [address] White blood cell (WBC) count Ordered By: Esme Baker on 03-11-2025 WBC (Bld) [#/Vol] 5.2 10*3/uL Normal 4.4-11.0 [facility] Comment on above: Performed By: #### L 501.9520, L506.0400 #### [facility] [address] [place], [place], [address] ED Prov Noteon 12-25-2024 ED Prov Note HPI: 12/25/2024, Time: @RICHELLE@ Johny Abdiaziz is a 24 y.o. female presenting to [...] are negative. PAST HISTORY [facility] Past Surgical History: has a past [...] mL (1,000 mL Intravenous New Bag 12/25/24 1428) ondansetron (ZOFRAN) injection 4 mg (has no [...] specific det (more content not included)... Normal [facility] POC BASIC METABOLIC PANEL - Malrin 12-25-2024 Chloride [Moles/Vol] 107 mmol/L Normal 98-108 [facility] Comment on above: Order Comment: [facility] has implemented the eGFR calculation approach that does not have a coefficient for race that conforms to the NKF-ASN Task Force Recommendations. CO2 [Moles/Vol] 21 mmol/L Normal 21-32 [facility] Comment on above: Order Comment: [facility] has implemented the eGFR calculation approach that does not have a coefficient for race that conforms to the NKF-ASN Task Force Recommendations. Creatinine [Mass/Vol] 0.52 mg/dL Normal 0.40-1.10 [facility] Comment on above: Order Comment: [facility] has implemented the eGFR calculation approach that does not have a coefficient for race that conforms to the NKF-ASN Task Force Recommendations. Glucose [Mass/Vol] 87 mg/dL Normal 65-99 [facility] Comment on above: Order Comment: [facility] has implemented the eGFR calculation approach that does not have a coefficient for race that conforms to the NKF-ASN Task Force Recommendations. POC GFR 133 mL/min/1.73 m2 Normal >=60 [facility] Comment on above: Order Comment: [facility] has implemented the eGFR calculation approach that does not have a coefficient for race that conforms to the NKF-ASN Task Force Recommendations. Result Comment: Ann-Marie mated GFR was calculated using the 2020 CKD-EPI creatinine equation. POC IONIZED CALCIUM 4.5 mg/dL Normal 4.5-5.3 [facility] Comment on above: Order Comment: [facility] has implemented the eGFR calculation approach that does not have a coefficient for race that conforms to the NKF-ASN Task Force Recommendations. Potassium [Moles/Vol] 3.4 mmol/L Low 3.5-5.1 [facility] Comment on above: Order Comment: [facility] has implemented the eGFR calculation approach that does not have a coefficient for race that conforms to the NKF-ASN Task Force Recommendations. Sodium [Moles/Vol] 139 mmol/L Normal 135-145 [facility] Comment on above: Order Comment: [facility] has implemented the eGFR calculation approach that does not have a coefficient for race that conforms to the NKF-ASN Task Force Recommendations. Urea nitrogen [Mass/Vol] 11 mg/dL Normal 8-25 [facility] Comment on above: Order Comment: [facility] has implemented the eGFR calculation approach that does not have a coefficient for race that conforms to the NKF-ASN Task Force Recommendations. POC CBC AND DIFFERENTIALon 0 12-25-2024 BASOPHILS ABSOLUTE COUNT 0.01 K/mcL Normal 0.00-0.30 [facility] Basophils/100 WBC (Bld) 0.3 % Normal [facility] Eosinophils (Bld) [#/Vol] 0.06 10*3/uL Normal 0.00-0.50 [facility] Eosinophils/100 WBC (Bld) 2.0 % Normal [facility] Erythrocyte distribution width (RBC) [Ratio] 12.1 % Normal 11.6-14.8 [facility] Hematocrit (Bld) [Volume fraction] 35.5 % Low 36.0-46.0 [facility] Hemoglobin (Bld) [Mass/Vol] 12.3 g/dL Normal 12.0-16.0 [facility] IG ABSOLUTE 0.01 K/mcL Normal 0.00-0.30 [facility] IG PERCENT 0.30 % [facility] Comment on above: Result Comment: The IG parameter is the percentage of metamyelocytes, myelocytes and promyelocytes. An immature granulocyte count (IG) of 1% or more suggests the possibility of infection, an IG count of 3% is very likely related to an infection. Lymphocytes (Bld) [#/Vol] 0.72 10*3/uL Low 0.90-4.00 [facility] Lymphocytes/100 WBC (Bld) 24.2 % Normal [facility] MCH (RBC) [Entitic mass] 28.4 pg Normal 26.0-34.0 [facility] MCV (RBC) [Entitic vol] 82.0 fL Normal 80.0-100.0 [facility] MEAN CORPUSCULAR HEMOGLOBIN CONC 34.6 g/dL Normal 31.0-37.0 [facility] Monocytes (Bld) [#/Vol] 0.24 10*3/uL Low 0.30-0.90 [facility] Monocytes/100 WBC (Bld) 8.1 % Normal [facility] NEUTROPHILS ABSOLUTE COUNT 1.94 K/mcL Normal 1.70-7.00 [facility] Neutrophils/100 WBC (Bld) 65.1 % Normal [facility] Platelet mean volume (Bld) [Entitic vol] 8.9 fL Low 9.4-12.4 [facility] Platelets (Bld) [#/Vol] 205 10*3/uL Normal 150-400 [facility] RBC (Bld) [#/Vol] 4.33 10*6/uL Normal 4.00-5.20 [facility] WBC (Bld) [#/Vol] 2.98 10*3/uL Low 4.50-11.00 [facility] POC LIVER PANEL PLUS [place] 12-25-2024 Albumin [Mass/Vol] 4.1 g/dL Normal 3.2-5.2 [facility] ALP [Catalytic activity/Vol] 63 U/L Normal 40-140 [facility] Amylase [Catalytic activity/Vol] 33 U/L Normal 25-115 [facility] Amylase [Catalytic activity/Vol] 5 U/L Low 7-33 [facility] AST [Catalytic activity/Vol] 21 U/L Normal 0-45 [facility] Bilirubin [Mass/Vol] 0.6 mg/dL Normal 0.0-1.3 [facility] POC ALT (SGPT) < Normal 0-40 [facility] Protein [Mass/Vol] 7.2 g/dL Normal 6.0-8.0 [facility] XR CHEST PA/APon 12-25-2024 XR CHEST PA/AP [...] on SatDec 25, 2024 3:11:40 PM EDT [facility] Comment on above: Order Comment: Injur y/Trauma [...] on SatDec 25, 2024 3:35:24 PM EDT [facility] Comment on above: Order Comment: Injur y/Trauma [...] injury Pelvic w/ Transvaginalon Pelvic w/ Transvaginal [facility] [address] [place] [address] Pelvic w/ Transvaginal MR#: [id number] Acct: [id number] Name: JOHNY FREED Rep #: [id number] : 2000 F 24 From: Sandip De Jesus PCP: CURTIS Mena Status: REG CLI Study: Pelvic w/ Transvaginal Date of Exam: 12/24/24 Exam# [id number] Ordering Dr: Esme Baker PROCEDURE: PELVIC W/ [...] Physiologic amount of free fluid Reading Location: [id number] CC: Dr. 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: Signed Normal [facility] Absolute lymphocyte countOrd ered By: Esme Baker on 12-22-2024 Lymphocytes Auto (Unsp spec) [#/Vol] 1.37 10*3/uL 0.83-4.51 [facility] Absolute neutrophil countOrd ered By: Esme Baker on 12-22-2024 Neutrophils (Bld) [#/Vol] 2.2 10*3/uL 2.0-7.7 [facility] Automated lymphocyte count a s percentage of total leukocytesOrdered By: Esme Baker on 12-22-2024 Lymphocytes/100 WBC Auto (Unsp spec) 33.3 % 19-41 [facility] Basophil percentageOrdered B y: Esme Baker on 12-22-2024 Basophils/100 WBC (Bld) 0.7 % 0-1 [facility] CBC W/Diff, Automatedon 12-12-2024 Absolute Lymph 1.37 X10 3/uL Normal 0.83-4.51 [facility] Comment on above: Performed By: #### L 100.0100 #### [facility] [address] [place], [address] Absolute Neut 2.2 X10 3/uL Normal 2.0-7.7 [facility] Comment on above: Performed By: #### L 100.0100 #### [facility] [address] [place], [address] Basophils/100 WBC (Bld) 0.7 % Normal 0-1 [facility] Comment on above: Performed By: #### L 100.0100 #### [facility] [address] [place], [address] Eosinophils/100 WBC (Bld) 4.9 % Normal 0-5 [facility] Comment on above: Performed By: #### L 100.0100 #### [facility] [address] [place], [address] Erythrocyte distribution width (RBC) [Ratio] 11.9 % Normal 11.6-14.6 [facility] Comment on above: Performed By: #### L 100.0100 #### [facility] [address] [place], [address] Hematocrit (Bld) [Volume fraction] 34.6 % Low 37-47 [facility] Comment on above: Performed By: #### L 100.0100 #### [facility] [address] [place], [address] Hemoglobin (Bld) [Mass/Vol] 11.9 g/dL Low 12.0-15.0 [facility] Comment on above: Performed By: #### L 100.0100 #### [facility] [address] [place], [address] IG% 0.500 Normal 0.0-0.9 [facility] Comment on above: Result Comment: IG% - Immature Granulocytes (promyelocytes, myelocytes and metamyelocytes) > 1% indicates that a LEFT SHIFT is Present. Performed By: #### L 100.0100 #### [facility] [address] [place], [address] Lymphocytes/100 WBC (Bld) 33.3 % Normal 19-41 [facility] Comment on above: Performed By: #### L 100.0100 #### [facility] [address] [place], [address] MCH (RBC) [Entitic mass] 28.2 pg Normal 27.0-32.0 [facility] Comment on above: Performed By: #### L 100.0100 #### [facility] [address] [place], [address] MCHC (RBC) [Mass/Vol] 34.4 g/dL Normal 32-36 [facility] Comment on above: Performed By: #### L 100.0100 #### [facility] [address] [place], [address] MCV (RBC) [Entitic vol] 82.0 fL Normal 81-99 [facility] Comment on above: Performed By: #### L 100.0100 #### [facility] [address] [place], [address] Monocytes/100 WBC (Bld) 8.0 % Normal 0-10 [facility] Comment on above: Performed By: #### L 100.0100 #### [facility] [address] [place], [address] Neutrophils/100 WBC (Bld) 52.6 % Normal 47-70 [facility] Comment on above: Performed By: #### L 100.0100 #### [facility] [address] [place], [address] Nucleated RBC (Bld) [#/Vol] 0 10*3/uL Normal 0-5 [facility] Comment on above: Performed By: #### L 100.0100 #### [facility] [address] [place], [address] Platelet mean volume (Bld) [Entitic vol] 9.9 fL Normal 6.2-12.0 [facility] Comment on above: Performed By: #### L 100.0100 #### [facility] [address] [place], [address] Platelets (Bld) [#/Vol] 279 10*3/uL Normal 150-450 [facility] Comment on above: Performed By: #### L 100.0100 #### [facility] [address] [place], [address] RBC (Bld) [#/Vol] 4.22 10*6/uL Normal 4.2-5.4 [facility] Comment on above: Performed By: #### L 100.0100 #### [facility] [address] [place], [address] RDW SD 35.7 fl Normal 35.1-43.9 [facility] Comment on above: Performed By: #### L 100.0100 #### [facility] [address] [place], [address] WBC (Bld) [#/Vol] 4.1 10*3/uL Low 4.4-11.0 [facility] Comment on above: Performed By: #### L 100.0100 #### [facility] [address] [place], [address] Eosinophil percentageOrdered By: Esme Bkaer on 12-22-2024 Eosinophils/100 WBC (Bld) 4.9 % 0-5 [facility] Erythrocyte distribution wid th ratioOrdered By: Esme Baker on 12-22-2024 Erythrocyte distribution width (RBC) [Ratio] 11.9 % 11.6-14.6 [facility] Erythrocyte distribution wid th standard deviationOrdered By: Esme Baker on 12-22-2024 Erythrocyte distribution width (RBC) [Entitic vol] 35.7 fL 35.1-43.9 [facility] Erythrocyte distribution width (RBC) [Ratio] 35.7 fl 35.1-43.9 [facility] Hematocrit Auto (Bld) [Volum e fraction]Ordered By: Esme Baker on 12-22-2024 Hematocrit (Bld) [Volume fraction] 34.6 % Low 37-47 [facility] Hemoglobin measurementOrdere d By: Esme Baker on 12-22-2024 Hemoglobin (Bld) [Mass/Vol] 11.9 g/dL Low 12.0-15.0 [facility] Immature granulocytes/100 WB C Auto (Bld)Ordered By: Esme Baker on 12-22-2024 Immature granulocytes/100 WBC (Bld) 0.500 % 0.0-0.9 [facility] Comment on above: IG% - Immature Granu locytes (promyelocytes, myelocytes and metamyelocytes) > 1% indicates that a LEFT SHIFT is Present. L506.1001on 12-22-2024 Vitamin D 25-OH 25.5 ng/mL Low 30-100 [facility] Comment on above: Result Comment: Ariane min D Status Deficiency: <20 ng/mL (50nmol/L) Insufficiency: 20-30 ng/mL (50-75 nmol/L) Sufficiency: 30-100 ng/mL (75-250 nmol/L) Toxicity: >100 ng/mL (>250 nmol/L) Performed By: #### L 100.0100, L700.8000, L501.9520, L506.0400 #### [facility] [address] [place], [address] Lymphocytes Auto (Unsp spec) [#/Vol]Ordered By: Esme Baker on 12-22-2024 Lymphocytes (Bld) [#/Vol] 1.37 10*3/uL 0.83-4.51 [facility] Lymphocytes/100 WBC Auto (Un sp spec)Ordered By: Esme Baker on 12-22-2024 Lymphocytes/100 WBC (Bld) 33.3 % 19-41 [facility] MCV (mean corpuscular volume ) determinationOrdered By: Esme Baker on 12-22-2024 MCV (RBC) [Entitic vol] 82.0 fL 81-99 [facility] Mean corpuscular hemoglobin (MCH) determinationOrdered By: Esme Baker on 12-22-2024 MCH (RBC) [Entitic mass] 28.2 pg 27.0-32.0 [facility] Mean corpuscular hemoglobin concentration (MCHC) determinationOrdered By: Esme Baker on 12-22-2024 MCHC (RBC) [Mass/Vol] 34.4 g/dL 32-36 [facility] Mean platelet volume determi nationOrdered By: Esme Baker on 12-22-2024 Platelet mean volume (Bld) [Entitic vol] 9.9 fL 6.2-12.0 [facility] Monocyte percentageOrdered B y: Esme Baker on 12-22-2024 Monocytes/100 WBC (Bld) 8.0 % 0-10 [facility] Neutrophil percentageOrdered By: Esme Baker on 12-22-2024 Neutrophils/100 WBC (Bld) 52.6 % 47-70 [facility] Nucleated red blood cell per centageOrdered By: Esme Baker on 12-22-2024 Nucleated RBC/100 WBC (Bld) [Ratio] 0 % 0-5 [facility] Glaucoma Specialist Office Visit Reporton 12-22-2024 Glaucoma Specialist Office Visit Report [facility] [address], [address] [place] [address] OFFICE VISIT Date of Service: 12/22/24 MR#: [id number] Acct: [id number] Name: JOHNY FREED Rep #: [id number] : 2000 Provider: Dr. Esme orellana MD Age/Sex: 24/F Location: [facility] Status: Signed Intake Vital Signs 01/27/24 13:07 12/22/24 09:34 Height 5 ft 3 in 5 ft 3 in Weight: 138 lb 6 oz BMI 24.5 BP 124/79 H Intake Visit Reasons: possible vaginal prolapse Material Chaser Required: No Is patient in pain?: No Allergies Latex, Natural Rubber Allergy (Mild, Verified 12/22/24 09:35) Itching hydrocodone (From Vicodin) Allergy (Verified 12/22/24 09:35) other hydromorphone (From Dilaudid) Adverse Reaction (Intermediate, Verified 12/22/24 09:35) passed out Medications ???Medication ???Instructions ???Recorded ???Confirmed ???Type multivit-min no.71-iron fum 28 1 cap PO DAILY 05/16/23 12/22/24 H istory mg-folate no.1 1 mg-dha 300 mg capsule (PNV-Sidney) levothyroxine 50 mcg tablet 50 mcg PO QDAY #90 tabs 07/12/24 0 12/22/24 Rx Is last menstrual period known: Yes Last Menstrual Period: 12/08/24 (periods have become shorter after having 2nd baby ) Post menopausal: No Patient : No : Yes [facility] Medical History Autoimmune thyroiditis Vaginal delivery Oligohydramnios Gestational diabetes mellitus (GDM) affecting , antepartum Abnormal glucose affecting Shoulder dystocia during labor and delivery Rh negative status during H/O herpes genitalis Surgical History History of throat surgery History of tonsillectomy [place] teeth extracted Family History Grandmother Ovarian cancer great grandmother Social History (Updated 12/22/24 @ 09:38 by Bethany Webber) adopted: No household members: spouse and children number of children: 2 current occupational status: unemployed current occupation: [employer] pets and animals: Yes pets and [...] in: walking frequency: daily duration: 30-45 minutes/day stacey/rastafarian: Episcopalian seatbelt use: always do you feel safe [...] live - full term 6lbs 14oz Female [facility] Ileana rcanthony Delivery Date: 11/07/21 Last Updated by: [...] Appearance: aver (more content not included)... Normal [facility] Platelet countOrdered By: Luciano Baker on 12-22-2024 Platelets (Bld) [#/Vol] 279 10*3/uL 150-450 [facility] RBC Auto (Bld) [#/Vol]Ordere d By: Esme Baker on 12-22-2024 RBC (Bld) [#/Vol] 4.22 10*6/uL 4.2-5.4 [facility] Vitamin D, 25-hydroxyOrdered By: Esme Baker on 12-22-2024 Vitamin D 25-Hydroxy 25.5 ng/mL Low 30-100 [facility] Comment on above: Vitamin D StatusDefi ciency: <20 ng/mL (50nmol/L)Insufficiency: 20-30 ng/mL (50-75 nmol/L)Sufficiency: 30-100 ng/mL (75-250 nmol/L)Toxicity: >100 ng/mL (>250 nmol/L) White blood cell (WBC) count Ordered By: Esme Baker on 12-22-2024 WBC (Bld) [#/Vol] 4.1 10*3/uL Low 4.4-11.0 [facility] CBC (INCLUDES DIFF/PLT)on Basophils (Bld) [#/Vol] 0.051 10*3/uL Normal 0-200 [facility] Comment on above: Performed By: #### 1 6802, 866, 927, 6399, 34937, 899, 7573, 622 #### [facility] [place] [address] Narcotics Detective: Michele Lewis MD Basophils/100 WBC (Bld) 1.1 % Normal [facility] Comment on above: Performed By: #### 1 6802, 866, 927, 6399, 36386, 899, 7573, 622 #### [facility] [place] [address] Narcotics Detective: Michele Lewis MD Eosinophils (Bld) [#/Vol] 0.198 10*3/uL Normal 15-500 [facility] Comment on above: Performed By: #### 1 6802, 866, 927, 6399, 15152, 899, 7573, 622 #### [facility] [place] [address] Narcotics Detective: Michele Lewis MD Eosinophils/100 WBC (Bld) 4.3 % Normal [facility] Comment on above: Performed By: #### 1 6802, 866, 927, 6399, 42247, 899, 7573, 622 #### [facility] [place] [address] Narcotics Detective: Michele Lewis MD Erythrocyte distribution width (RBC) [Ratio] 12.1 % Normal 11.0-15.0 [facility] Comment on above: Performed By: #### 1 6802, 866, 927, 6399, 78356, 899, 7573, 622 #### [facility] [place] [address] Narcotics Detective: Michele Lewis MD Hematocrit (Bld) [Volume fraction] 35.5 % Normal 35.0-45.0 [facility] Comment on above: Performed By: #### 1 6802, 866, 927, 6399, 71958, 899, 7573, 622 #### [facility] [place] [address] Narcotics Detective: Michele Lewis MD Hemoglobin (Bld) [Mass/Vol] 11.6 g/dL Low 11.7-15.5 [facility] Comment on above: Performed By: #### 1 6802, 866, 927, 6399, 60364, 899, 7573, 622 #### [facility] [place] [address] Narcotics Detective: Michele Lewis MD Lymphocytes (Bld) [#/Vol] 1.67 10*3/uL Normal 850-3900 [facility] Comment on above: Performed By: #### 1 6802, 866, 927, 6399, 20744, 899, 7573, 622 #### [facility] [place] [address] Narcotics Detective: Michele Lewis MD Lymphocytes/100 WBC (Bld) 36.3 % Normal [facility] Comment on above: Performed By: #### 1 6802, 866, 927, 6399, 28657, 899, 7573, 622 #### [facility] [place] [address] Narcotics Detective: Michele Lewis MD MCH (RBC) [Entitic mass] 28.2 pg Normal 27.0-33.0 [facility] Comment on above: Performed By: #### 1 6802, 866, 927, 6399, 62872, 899, 7573, 622 #### [facility] [place] [address] Narcotics Detective: Michele Lewis MD MCHC (RBC) [Mass/Vol] 32.7 g/dL Normal 32.0-36.[address] [facility] Comment on above: Result Comment: For adults, a slight decrease in the calculated MCHC value (in the range of 30 to 32 g/dL) is most likely not clinically significant; however, it should be interpreted with caution in correlation with other red cell parameters and the patient's clinical condition. Performed By: #### 1 6802, 866, 927, 6399, 81809, 899, 7573, 622 #### [facility] [place] [address] Narcotics Detective: Michele Lewis MD MCV (RBC) [Entitic vol] 86.2 fL Normal 80.0-100.0 [facility] Comment on above: Performed By: #### 1 6802, 866, 927, 6399, 29994, 899, 7573, 622 #### [facility] [place] [address] Narcotics Detective: Michele Lewis MD Monocytes (Bld) [#/Vol] 0.299 10*3/uL Normal 200-950 [facility] Comment on above: Performed By: #### 1 6802, 866, 927, 6399, 13831, 899, 7573, 622 #### [facility] [place] [address] Narcotics Detective: Michele Lewis MD Monocytes/100 WBC (Bld) 6.5 % Normal [facility] Comment on above: Performed By: #### 1 6802, 866, 927, 6399, 16435, 899, 7573, 622 #### [facility] [place] [address] Narcotics Detective: Michele Lewis MD Neutrophils (Bld) [#/Vol] 2.383 10*3/uL Normal 8968-1029 [facility] Comment on above: Performed By: #### 1 6802, 866, 927, 6399, 98111, 899, 7573, 622 #### [facility] [place] [address] Narcotics Detective: Michele Lewis MD Neutrophils/100 WBC (Bld) 51.8 % Normal [facility] Comment on above: Performed By: #### 1 6802, 866, 927, 6399, 46088, 899, 7573, 622 #### [facility] [place] [address] Narcotics Detective: Michele Lewis MD Platelet mean volume (Bld) [Entitic vol] 9.9 fL Normal 7.5-12.5 [facility] Comment on above: Performed By: #### 1 6802, 866, 927, 6399, 47597, 899, 7573, 622 #### [facility] [place] [address] Narcotics Detective: Michele Lewis MD Platelets (Bld) [#/Vol] 305 10*3/uL Normal 140-400 [facility] Comment on above: Performed By: #### 1 6802, 866, 927, 6399, 03696, 899, 7573, 622 #### [facility] [place] [address] Narcotics Detective: Michele Lewis MD RBC (Bld) [#/Vol] 4.12 10*6/uL Normal 3.80-5.10 [facility] Comment on above: Performed By: #### 1 6802, 866, 927, 6399, 10160, 899, 7573, 622 #### [facility] [place] [address] Narcotics Detective: Michele Lewis MD WBC (Bld) [#/Vol] 4.6 10*3/uL Normal 3.8-10.8 [facility] Comment on above: Performed By: #### 1 6802, 866, 927, 6399, 66134, 899, 7573, 622 #### [facility] [place] [address] Narcotics Detective: Michele Lewis MD COMPREHENSIVE METABOLIC PANE L W/ANION GAPon 11-26-2024 Albumin [Mass/Vol] 4.5 g/dL Normal 3.6-5.1 [facility] Comment on above: Performed By: #### 1 6802, 866, 927, 6399, 88434, 899, 7573, 622 #### [facility] [place] [address] Narcotics Detective: Michele Lewis MD ALP [Catalytic activity/Vol] 53 U/L Normal 31-125 [facility] Comment on above: Performed By: #### 1 6802, 866, 927, 6399, 57091, 899, 7573, 622 #### [facility] [place] [address] Narcotics Detective: Michele Lewis MD ALT [Catalytic activity/Vol] 5 U/L Low 6-29 [facility] Comment on above: Performed By: #### 1 6802, 866, 927, 6399, 20680, 899, 7573, 622 #### [facility] [place] [address] Narcotics Detective: Michele Lewis MD AST [Catalytic activity/Vol] 10 U/L Normal 10-30 [facility] Comment on above: Performed By: #### 1 6802, 866, 927, 6399, 06558, 899, 7573, 622 #### [facility] [place] [address] Narcotics Detective: Michele Lewis MD Bilirubin [Mass/Vol] 0.4 mg/dL Normal 0.2-1.2 [facility] Comment on above: Performed By: #### 1 6802, 866, 927, 6399, 34506, 899, 7573, 622 #### [facility] [place] [address] Narcotics Detective: Michele Lewis MD Calcium [Mass/Vol] 8.9 mg/dL Normal 8.6-10.2 [facility] Comment on above: Performed By: #### 1 6802, 866, 927, 6399, 60966, 899, 7573, 622 #### [facility] of [address] [place] [address] Narcotics Detective: Michele Lewis MD Chloride [Moles/Vol] 105 mmol/L Normal 98-110 [facility] Comment on above: Performed By: #### 1 6802, 866, 927, 6399, 74167, 899, 7573, 622 #### [facility] [place] [address] Narcotics Detective: Michele Lewis MD CO2 [Moles/Vol] 23 mmol/L Normal 20-32 [facility] Comment on above: Performed By: #### 1 6802, 866, 927, 6399, 54938, 899, 7573, 622 #### [facility] [place] [address] Narcotics Detective: Michele Lewis MD Creatinine [Mass/Vol] 0.63 mg/dL Normal 0.50-0.96 Count Includes [facility] Comment on above: Performed By: #### 1 6802, 866, 927, 6399, 25942, 899, 7573, 622 #### [facility] [place] [address] Narcotics Detective: Michele Lewis MD ELECTROLYTE BALANCE 10 mmol/L (calc) Normal 7-17 [facility] Comment on above: Performed By: #### 1 6802, 866, 927, 6399, 07080, 899, 7573, 622 #### [facility] [place] [address] Narcotics Detective: Michele Lewis MD GFR/1.73 sq M.predicted among non-blacks MDRD (S/P/Bld) [Vol rate/Area] 127 mL/min/{1.73_m2} Normal > OR = 60 [facility] Comment on above: Performed By: #### 1 6802, 866, 927, 6399, 68718, 899, 7573, 622 #### [facility] [place] [address] Narcotics Detective: Michele Lewis MD Glucose [Mass/Vol] 90 mg/dL Normal 65-99 [facility] Comment on above: Result Comment: Fasting reference interval Performed By: #### 1 6802, 866, 927, 6399, 54568, 899, 7573, 622 #### [facility] [place] [address] Narcotics Detective: Michele Lewis MD Potassium [Moles/Vol] 4.0 mmol/L Normal 3.5-5.3 Count Includes [facility] Comment on above: Performed By: #### 1 6802, 866, 927, 6399, 86528, 899, 7573, 622 #### [facility] [place] [address] Narcotics Detective: Michele Lewis MD Protein [Mass/Vol] 7.2 g/dL Normal 6.1-8.1 [facility] Comment on above: Performed By: #### 1 6802, 866, 927, 6399, 21271, 899, 7573, 622 #### [facility] [place] [address] Narcotics Detective: Michele Lewis MD Sodium [Moles/Vol] 138 mmol/L Normal 135-146 [facility] Comment on above: Performed By: #### 1 6802, 866, 927, 6399, 05652, 899, 7573, 622 #### [facility] [place] [address] Narcotics Detective: Michele Lewis MD Urea nitrogen [Mass/Vol] 11 mg/dL Normal 7-25 [facility] Comment on above: Performed By: #### 1 6802, 866, 927, 6399, 82781, 899, 7573, 622 #### [facility] [place] [address] Narcotics Detective: Michele Lewis MD FERRITINon 11-26-2024 Ferritin [Mass/Vol] 9 ng/mL Low 16-154 [facility] Comment on above: Performed By: #### 1 6802, 866, 927, 6399, 02227, 899, 7573, 622 #### [facility] [address], [address] [place] [address] Narcotics Detective: Michele Lewis MD HEMOGLOBIN A1c WITH eAGon eAG (mmol/L) 5.5 mmol/L Normal [facility] Comment on above: Performed By: #### 1 6802, 866, 927, 6399, 63206, 899, 7573, 622 #### [facility] [address], [address] [place] [address] Narcotics Detective: Michele Lewis MD HEMOGLOBIN A1c 5.1 % [...] diagnosis of diabetes in children. According to [place] [employer] Association (ADA) guidelines, hemoglobin A1c <7.0% represents optimal control in non- diabetic patients. Different metrics may apply to specific patient populations. Standards of Medical Care in Diabetes(ADA). Performed By: #### 1 6802, 866, 927, 6399, 30182, 899, 7573, 622 #### [facility] [address], [address] [place] [address] Narcotics Detective: Michele Lewis MD Magnesium [Mass/Vol] 100 mg/dL Normal [facility] Comment on above: Performed By: #### 1 6802, 866, 927, 6399, 55514, 899, 7573, 622 #### [facility] [address], [address] [place] [address] Narcotics Detective: Michele Lewis MD IRON AND TOTAL IRON BINDING CAPACITYon 11-26-2024 % SATURATION 15 % (calc) Low 16-45 [facility] Comment on above: Performed By: #### 1 6802, 866, 927, 6399, 97429, 899, 7573, 622 #### [facility] [place] [address] Narcotics Detective: Michele Lewis MD IRON BINDING CAPACITY 391 mcg/dL (calc) Normal 250-450 [facility] Comment on above: Performed By: #### 1 6802, 866, 927, 6399, 25623, 899, 7573, 622 #### [facility] [place] [address] Narcotics Detective: Michele Lewis MD IRON, TOTAL 59 mcg/dL Normal 40-190 [facility] Comment on above: Performed By: #### 1 6802, 866, 927, 6399, 23357, 899, 7573, 622 #### [facility] [place] [address] Narcotics Detective: Michele Lewis MD MAGNESIUMon 11-26-2024 Magnesium [Mass/Vol] 1.9 mg/dL Normal 1.5-2.5 [facility] Comment on above: Performed By: #### 1 6802, 866, 927, 6399, 30307, 899, 7573, 622 #### [facility] [place] [address] Narcotics Detective: Michele Lewis MD T4, FREEon 11-26-2024 Free T4 [Mass/Vol] 1.2 ng/dL Normal 0.8-1.8 [facility] Comment on above: Performed By: #### 1 6802, 866, 927, 6399, 27277, 899, 7573, 622 #### [facility] [place] [address] Narcotics Detective: Michele Lewis MD TSHon 11-26-2024 TSH Qn 2.26 m[IU]/L Normal [facility] Comment on above: Result Comment: Refe rence Range > or = 20 Years 0.40-4.50 Ranges First trimester 0.26-2.66 Second trimester 0.55-2.73 Third trimester 0.43-2.91 Performed By: #### 1 6802, 866, 927, 6399, 79668, 899, 7573, 622 #### [facility] [place] [address] [facility], [address] [place] [address] Narcotics Detective: Michele Lewis MD VITAMIN B12on 11-26-2024 Cobalamin [...] By: #### 1 6802, 866, 927, 6399, 07945, 899, 7573, 622 #### [facility] [address], [address] [place] [address] Narcotics Detective: Michele Lewis MD Direct serum free thyroxine (FT4) measurementOrdered By: Anson Richter on 09-14-2024 Free T4 [Mass/Vol] 1.08 ng/dL 0.76-1.46 [facility] T4 Free Directon 09-14-2024 T4 FREE DIRECT 1.08 ng/dL Normal 0.76-1.46 [facility] Comment on above: Performed By: #### L 501.9520, L506.0400 #### [facility] [place] [facility] [place] [place], [id number] TSH QnOrdered By: Anson Richter on 09-14-2024 Thyroid Stimulating Hormone (TSH) 2.470 uIU/mL 0.358-3.740 [facility] Thyroid Stim Hormone (TSH)on 09-14-2024 TSH 2.470 uIU/mL Normal 0.358-3.740 [facility] Comment on above: Performed By: #### L 501.9520, L506.0400 #### [facility] [address] [place], [address] Bacteria identifiedon 2023 Bacteria identified Cx Nom (U) Test: Urine Culture Specimen Source: Clean Catch/Voided Specimen Type: Urine Specimen Date: 08/06/20241702 Result Date: 08/07/20242040 Result Status: Final result Abnormal: No Resulting Lab: [facility] [address] [place] [address] CULTURE Normal genitourinary gloria Normal [facility] Comment on above: Performed By: #### 6 30-4 #### POONAM Pires ([id number]) [facility] ([facility]) [address] [place] [address] POCT UA Automated manually r esultedOrdered By: Jake Saunders on 08-06-2024 Appearance (U) Clear Clear [facility] Glucose Test strip (U) [Mass/Vol] Negative NEGATIVE mg/dl [facility] Hemoglobin Ql (U) Negative NEGATIVE [facility] Interpretation and review of laboratory results Abnormal [facility] Leukocyte esterase Test strip Ql (U) Negative NEGATIVE [facility] Nitrite Ql (U) Negative NEGATIVE [facility] pH (U) 7.0 [pH] No Reference Range Established [facility] POC Bilirubin, Urine Negative NEGATIVE [facility] POC Color, Urine Yellow Straw, Yellow, Light-Yellow [facility] POC Ketones, Urine Negative NEGATIVE mg/dl [facility] POC Protein, Urine Negative NEGATIVE, 30 (1+) mg/dl [facility] POC Specific [place], Urine 1.025 1.005 - 1.035 [facility] POC Urobilinogen, Urine 2.0 Abnormal 0.2, 1.0 EU/DL [facility] Free T3on 07-09-2024 Free T3 [Mass/Vol] 2.0 pg/mL Low 2.18-3.98 [facility] Comment on above: Order Comment: PER [facility] ORDER Performed By: #### L 501.9520, L506.0400 #### [facility] [address] [place], [address] T4 Free Directon 07-09-2024 T4 FREE DIRECT 0.70 ng/dL Low 0.76-1.46 [facility] Comment on above: Order Comment: PER [facility] ORDER Performed By: #### L 501.9520, L506.0400 #### [facility] [address] [place], [address] Thyroid Stim Hormone (TSH)on 07-09-2024 TSH 7.370 uIU/mL High 0.358-3.740 [facility] Comment on above: Order Comment: PER [facility] ORDER Performed By: #### L 501.9520, L506.0400 #### [facility] [address] [place], [address] T4 Free Directon 06-03-2024 T4 FREE DIRECT 0.99 ng/dL Normal 0.76-1.46 [facility] Comment on above: Performed By: #### L 506.0400, L501.9520 #### [facility] [address] [place], [address] Thyroid Stim Hormone (TSH)on 06-03-2024 TSH 0.063 uIU/mL Low 0.358-3.740 [facility] Comment on above: Performed By: #### L 506.0400, L501.9520 #### [facility] [address] [place], [address] CBC W Auto Differential pane l (Bld)on 02-26-2024 Basophils (Bld) [#/Vol] 0.07 x10*3/uL Normal 0.00-0.10 [facility] Comment on above: Performed By: #### 5 7021-8 #### DEANGELO CARDOZO ([id number]) [facility] ([facility]) [address] [place] [address]891 Basophils/100 WBC (Bld) 1.4 % Normal 0.0-2.0 [facility] Comment on above: Performed By: #### 7021-8 #### DEANGELO CARDOZO ([id number]) [facility] ([facility]) [address] [place] [address]75 Eosinophils (Bld) [#/Vol] 0.26 x10*3/uL Normal 0.00-0.70 [facility] Comment on above: Performed By: #### 7021-8 #### DEANGELO CARDOZO ([id number]) [facility] ([facility]) [address] [place] [address] 54997 Eosinophils/100 WBC (Bld) 5.2 % Normal 0.0-6.0 [facility] Comment on above: Performed By: #### 7021-8 #### DEANGELO CARDOZO ([id number]) [facility] ([facility]) [address] [place] [address] 01792 Erythrocyte distribution width (RBC) [Ratio] 13.3 % Normal 11.5-14.5 [facility] Comment on above: Performed By: #### 7021-8 #### DEANGELO CARDOZO ([id number]) [facility] ([facility]) [address] [place] [address]30 Hematocrit (Bld) [Volume fraction] 38.2 % Normal 36.0-46.0 [facility] Comment on above: Performed By: #### 5 7021-8 #### DEANGELO CARDOZO ([id number]) [facility] ([facility]) [address] [place] [address] 60674 Hemoglobin (Bld) [Mass/Vol] 12.5 g/dL Normal 12.0-16.0 [facility] Comment on above: Performed By: #### 5 7021-8 #### DEANGELO CARDOZO ([id number]) [facility] ([facility]) [address] [place] [address] 73165 Immature granulocytes (Bld) [#/Vol] 0.02 x10*3/uL Normal 0.00-0.70 [facility] Comment on above: Performed By: #### 5 7021-8 #### DEANGELO CARDOZO ([id number]) [facility] ([facility]) [address] [place] [address] 14387 Immature granulocytes/100 WBC (Bld) 0.4 % Normal 0.0-0.9 [facility] Comment on above: Result Comment: Jannie ture Granulocyte Count (IG) includes promyelocytes, myelocytes and metamyelocytes but does not include bands. Percent differential counts (%) should be interpreted in the context of the absolute cell counts (cells/UL). Performed By: #### 5 7021-8 #### DEANGELO CARDOZO ([id number]) [facility] ([facility]) [address] [place] [address] 31060 Lymphocytes (Bld) [#/Vol] 1.87 x10*3/uL Normal 1.20-4.80 [facility] Comment on above: Performed By: #### 5 7021-8 #### DEANGELO CARDOZO ([id number]) [facility] ([facility]) [address] [place] [address] 03166 Lymphocytes/100 WBC (Bld) 37.3 % Normal 13.0-44.0 [facility] Comment on above: Performed By: #### 5 7021-8 #### DEANGELO CARDOZO ([id number]) [facility] ([facility]) [address] [place] [address] 87687 MCH (RBC) [Entitic mass] 26.9 pg Normal 26.0-34.0 [facility] Comment on above: Performed By: #### 5 7021-8 #### DEANGELO CARDOZO ([id number]) [facility] ([facility]) [address] [place] [address] 44830 MCHC (RBC) [Mass/Vol] 32.7 g/dL Normal 32.0-36.[address] [facility] Comment on above: Performed By: #### 5 7021-8 #### DEANGELO CARDOZO ([id number]) [facility] ([facility]) [address] [place] [address] 51253 MCV (RBC) [Entitic vol] 82 fL Normal 80-100 [facility] Comment on above: Performed By: #### 5 7021-8 #### DEANGELO CARDOZO ([id number]) [facility] ([facility]) [address] [place] [address] 30080 Monocytes (Bld) [#/Vol] 0.34 x10*3/uL Normal 0.10-1.00 [facility] Comment on above: Performed By: #### 5 7021-8 #### DEANGELO CARDOZO ([id number]) [facility] ([facility]) [address] [place] [address] 94079 Monocytes/100 WBC (Bld) 6.8 % Normal 2.0-10.0 [facility] Comment on above: Performed By: #### 5 7021-8 #### DEANGELO CARDOZO ([id number]) [facility] ([facility]) [address] [place] [address] 90537 Neutrophils (Bld) [#/Vol] 2.46 x10*3/uL Normal 1.20-7.70 [facility] Comment on above: Result Comment: Perc ent differential counts (%) should be interpreted in the context of the absolute cell counts (cells/uL). Performed By: #### 5 7021-8 #### DEANGELO CARDOZO ([id number]) [facility] ([facility]) [address] [place] [address] 40071 Neutrophils/100 WBC (Bld) 48.9 % Normal 40.0-80.0 [facility] Comment on above: Performed By: #### 5 7021-8 #### DEANGELO CARDOZO ([id number]) [facility] ([facility]) [address] [place] [address] 21302 Nucleated RBC/100 WBC (Bld) [Ratio] 0.0 /100 WBCs Normal 0.0-0.0 [facility] Comment on above: Performed By: #### 5 7021-8 #### DEANGELO CARDOZO ([id number]) [facility] ([facility]) [address] [place] [address] 48259 Platelets (Bld) [#/Vol] 271 x10*3/uL Normal 150-450 [facility] Comment on above: Performed By: #### 5 7021-8 #### DEANGELO CARDOZO ([id number]) [facility] ([facility]) [address] [place] [address] 54419 RBC (Bld) [#/Vol] 4.64 x10*6/uL Normal 4.00-5.20 [facility] Comment on above: Performed By: #### 5 7021-8 #### DEANGELO CARDOZO ([id number]) [facility] ([facility]) [address] [place] [address] 76950 WBC (Bld) [#/Vol] 5.0 x10*3/uL Normal 4.4-11.3 [facility] Comment on above: Performed By: #### 5 7021-8 #### DEANGELO CARDOZO ([id number]) [facility] ([facility]) [address] [place], [place] [address] Cobalaminson 02-26-2024 Cobalamin (Vitamin B12) [Mass/Vol] 407 pg/mL Normal 211-911 [facility] Comment on above: Performed By: #### 2 132-9 #### DEANGELO CARDOZO ([id number]) [facility] ([facility]) [address] [place] [address] 15966 Comprehensive metabolic 2000 panelon 02-26-2024 Albumin BCP dye [Mass/Vol] 4.6 g/dL Normal 3.4-5.0 [facility] Comment on above: Performed By: #### 2 4323-8 #### DEANGELO CARDOZO ([id number]) [facility] ([facility]) [address] [place] [address] 34740 ALP [Catalytic activity/Vol] 82 U/L Normal 33-110 [facility] Comment on above: Performed By: #### 2 4323-8 #### DEANGELO CARDOZO ([id number]) [facility] ([facility]) [address] [place] [address] 59148 ALT With P-5'-P [Catalytic activity/Vol] 18 U/L Normal 7-45 [facility] Comment on above: Result Comment: Martha ents treated with Sulfasalazine may generate falsely decreased results for ALT. Performed By: #### 2 4323-8 #### DEANGELO CARDOZO ([id number]) [facility] ([facility]) [address] [place] [address] Anion gap [Moles/Vol] 14 mmol/L Normal 10-[address] [facility] Comment on above: Performed By: #### 2 4323-8 #### DEANGELO CARDOZO ([id number]) [facility] ([facility]) [address] [place] [address] 93181 AST With P-5'-P [Catalytic activity/Vol] 17 U/L Normal 9-39 [facility] Comment on above: Performed By: #### 2 432-8 #### DEANGELO CARDOZO ([id number]) [facility] ([facility]) [address] [place] [address] 37848 Bilirubin [Mass/Vol] 0.6 mg/dL Normal 0.0-1.2 [facility] Comment on above: Performed By: #### 2 432-8 #### DEANGELO CARDOZO ([id number]) [facility] ([facility]) [address] [place] [address] 29414 Calcium [Mass/Vol] 8.9 mg/dL Normal 8.6-10.3 [facility] Comment on above: Performed By: #### 2 4323-8 #### DEANGELO CARDOZO ([id number]) [facility] ([facility]) [address] [place] [address] 28485 Chloride [Moles/Vol] 106 mmol/L Normal 98-107 [facility] Comment on above: Performed By: #### 2 4323-8 #### DEANGELO CARDOZO ([id number]) [facility] ([facility]) [address] [place] [address] 73965 CO2 [Moles/Vol] 23 mmol/L Normal 21-32 [facility] Comment on above: Performed By: #### 2 4323-8 #### DEANGELO CARDOZO ([id number]) [facility] ([facility]) [address] [place] [address] Creatinine [Mass/Vol] 0.91 mg/dL Normal 0.50-1.[address] [facility] Comment on above: Performed By: #### 2 4323-8 #### DEANGELO CARDOZO ([id number]) [facility] ([facility]) [facility] [place] [address] GFR/1.73 sq M.predicted MDRD (S/P/Bld) [Vol rate/Area] mL/min/{1.73_m2} Normal >60 [facility] Comment on above: Result Comment: Calc ulations of estimated GFR are performed using the 2020 CKD-EPI Study Refit equation without the race variable for the IDMS-Traceable creatinine methods. https://jasn.asnjournals.org/content/early//ASN.49988 11334 Performed By: #### 2 4323-8 #### DEANGELO CARDOZO ([id number]) [facility] ([facility]) [facility] [place] [address] Glucose [Mass/Vol] 87 mg/dL Normal 74-99 [facility] Comment on above: Performed By: #### 2 4323-8 #### DEANGELO CARDOZO ([id number]) [facility] ([facility]) [address] [place] [address] 53663 Potassium [Moles/Vol] 3.9 mmol/L Normal 3.5-5.[address] [facility] Comment on above: Performed By: #### 2 4323-8 #### DEANGELO CARDOZO ([id number]) [facility] ([facility]) [address] [place] [address] 88342 Protein [Mass/Vol] 7.6 g/dL Normal 6.4-8.2 [facility] Comment on above: Performed By: #### 2 4323-8 #### DEANGELO CARDOZO ([id number]) [facility] ([facility]) [facility] [place] [address] Sodium [Moles/Vol] 139 mmol/L Normal 136-145 [facility] Comment on above: Performed By: #### 2 4323-8 #### DEANGELO CARDOZO ([id number]) [facility] ([facility]) [address] [place] [address] 17731 Urea nitrogen [Mass/Vol] 18 mg/dL Normal 6-23 [facility] Comment on above: Performed By: #### 2 4323-8 #### DEANGELO CARDOZO ([id number]) [facility] ([facility]) [address] [place] [address] 14895 Iron and Iron binding capaci ty panelon 02-26-2024 Iron [Mass/Vol] 110 ug/dL Normal 35-150 [facility] Comment on above: Performed By: #### 5 0190-8 #### DEANGELO CARDOZO ([id number]) [facility] ([facility]) [address] [place] [address] 16860 Iron binding capacity [Mass/Vol] 397 ug/dL Normal 240-445 [facility] Comment on above: Performed By: #### 5 0190-8 #### DEANGELO CARDOZO ([id number]) [facility] ([facility]) [address] [place] [address] 50213 Iron binding capacity.unsaturated [Mass/Vol] 287 ug/dL Normal 110-370 [facility] Comment on above: Performed By: #### 5 0190-8 #### DEANGELO CARDOZO ([id number]) [facility] ([facility]) [address] [place] [address] 59401 Iron saturation [Mass fraction] 28 % Normal 25-45 [facility] Comment on above: Performed By: #### 5 0190-8 #### DEANGELO CARDOZO ([id number]) [facility] ([facility]) [address] [place] [address] 92093 Thyrotropinon 02-26-2024 TSH Qn 1.82 m[IU]/L Normal 0.44-3.98 [facility] Comment on above: Order Comment: TSH t esting is performed using different testing methodology at [facility] than at other [facility]. Direct result comparisons should only be made within the same method. Performed By: #### 3 016-3 #### DEANGELO CARDOZO ([id number]) [facility] ([facility]) [address] [place] [address] 49998 Thyroxine.02-26-2024 Free T4 [Mass/Vol] 0.62 ng/dL Normal 0.61-1.12 [facility] Comment on above: Order Comment: Thyro xine Free testing is performed using different testing methodology at [facility] than at other [facility]. Direct result comparisons should only [...] By: #### 3 024-7 #### DEANGELO CARDOZO ([id number]) [facility] ([facility]) [address] [place], [place] [address] Triiodothyronine. 02-11 Free T3 [Mass/Vol] 3.1 pg/mL Normal 2.3-4.2 [facility] Comment on above: Performed By: #### 3 051-0 #### POONAM Pires ([id number]) [facility] ([facility]) [address] [place] [address] Cervical or vagninal specime n microscopic examination by cytology stain (reported asOrdered By: Esme Baker on 01-21-2024 Cytology report Cyto stain Doc (Cvx/Vag) Comment . [facility] Comment on above: The Pap smear is a s creening test designed to aid in thedetection of premalignant and malignant conditions of theuterine cervix. It is not a diagnostic procedure andshould not be used as the sole means of detecting cervicalcancer. Both false-positive and false-negative reports dooccur. Laboratory - CytologyOrdered By: Esme Baker on 01-21-2024 Meter Tester Polyphase Cyto stain Nom (Cvx/Vag) [ID] Comment . [facility] Comment on above: Sha Martinez, Cytot echnologist (ASC) Laboratory - Miscellaneous t estsOrdered By: Esme Baker on 01-21-2024 Service comment (Unsp spec) [Interp] . . [facility] No Panel InformationOrdered By: Esme Baker on 01-21-2024 Human Papillomavirus Screen Comment . [facility] Comment on above: The HPV DNA reflex c dolly were not met with this specimenresult therefore, no HPV testing was performed.Performed at: [address] [id number] Director: Kenyetta Ibarra MD, Phone: [phone] Thin prep Papanicolaou smear with manual screeningOrdered By: Esme aBker on 01-21-2024 Thin prep Papanicolaou smear with manual screening Comment . [facility] Comment on above: NEGATIVE FOR INTRAEP ITHELIAL LESION OR MALIGNANCY. This liquid based Th inPrep(R) pap test was screened withthe use of an image guided system. Basophil percentageOrdered B y: Brandi Pacheco on 12-18-2023 Hemoglobin (Bld) [Mass/Vol] 10.4 g/dL 12.0-15.0 [facility] WBC (Bld) [#/Vol] 8.0 10*3/uL 4.4-11.0 [facility] Determination of erythrocyte mean corpuscular volume (MCV)Ordered By: Brandi Pacheco on 12-18-2023 MCV (RBC) [Entitic vol] 82.0 fL 81-99 [facility] Erythrocyte distribution wid th ratioOrdered By: Brandi Pacheco on 12-18-2023 Erythrocyte distribution width (RBC) [Ratio] 14.5 % 11.6-14.6 [facility] Erythrocyte distribution wid th standard deviationOrdered By: Brandi Pacheco on 12-18-2023 Erythrocyte distribution width (RBC) [Entitic vol] 43.0 fL 35.1-43.9 [facility] Hematocrit Auto (Bld) [Volum e fraction]Ordered By: Brandi Pacheco on 12-18-2023 Hematocrit (Bld) [Volume fraction] 32.3 % 37-47 [facility] - Chemistry and C hemistry - challengeOrdered By: Brandi Pacheco on 12-18-2023 ALT [Catalytic activity/Vol] 21 U/L 13-56 [facility] - Hematology and Cell countsOrdered By: Brandi Pacheco on 12-18-2023 MCH (RBC) [Entitic mass] 26.4 pg 27.0-32.0 [facility] MCHC (RBC) [Mass/Vol] 32.2 g/dL 32-36 [facility] Platelet mean volume (Bld) [Entitic vol] 8.5 fL 6.2-12.0 [facility] Platelets (Bld) [#/Vol] 321 10*3/uL 150-450 [facility] No Panel InformationOrdered By: Brandi Pacheco on 12-18-2023 Estimated Creatinine Clearance Calc 129.92 ml/min [facility] Estimated GFR (MDRD) Amer 137 mL/min >60 [facility] Comment on above: GFR Calc Estimated GFR (MDRD) Non-Af Amer 113 mL/min >60 [facility] Comment on above: Non- GFR Calc RBC Auto (Bld) [#/Vol]Ordere d By: Brandi Pacheco on 12-18-2023 RBC (Bld) [#/Vol] 3.94 10*6/uL 4.2-5.4 [facility] Serum or plasma creatinine m easurement (mass/volume)Ordered By: Brandi Pacheco on 12-18-2023 Creatinine [Mass/Vol] 0.68 mg/dL 0.55-1.02 [facility] Comment on above: The validity of the calculated GFR & GFRAA in patients over 70 years has not been determined. Clinical correlation is essential. Serum or plasma uric acid me asurement (mass/volume)Ordered By: Brandi Pacheco on 12-18-2023 Urate [Mass/Vol] 5.5 mg/dL 2.6-6.0 [facility] Comment on above: The drugs N-Acetylcy steine and Metamizole may falsely depress this assay. Thin prep Papanicolaou smear with manual screeningOrdered By: Brandi Pacheco on 12-18-2023 Thin prep Papanicolaou smear with manual screening 18 U/L 15-37 [facility] Thin prep Papanicolaou smear with manual screeningOrdered By: Esme Baker on 12-14-2023 Thin prep Papanicolaou smear with manual screening 94 mg/dL 74-106 [facility] Comment on above: MANAGEMENT OF PATIEN T CARE PER NURSING PROTOCOL Absolute lymphocyte countOrd ered By: Esme Baker on 12-12-2023 Lymphocytes Auto (Unsp spec) [#/Vol] 1.80 10*3/uL 0.83-4.51 [facility] Automated lymphocyte count a s percentage of total leukocytesOrdered By: Esme Baker on 12-12-2023 Lymphocytes/100 WBC Auto (Unsp spec) 19.4 % 19-41 [facility] Basophil percentageOrdered B y: Esme Baker on 12-12-2023 Basophils/100 WBC (Bld) 0.5 % 0-1 [facility] Eosinophils/100 WBC (Bld) 2.2 % 0-5 [facility] Hemoglobin (Bld) [Mass/Vol] 10.6 g/dL 12.0-15.0 [facility] Monocytes/100 WBC (Bld) 6.2 % 0-10 [facility] Neutrophils (Bld) [#/Vol] 6.5 10*3/uL 2.0-7.7 [facility] Neutrophils/100 WBC (Bld) 69.9 % 47-70 [facility] WBC (Bld) [#/Vol] 9.3 10*3/uL 4.4-11.0 [facility] Determination of erythrocyte mean corpuscular volume (MCV)Ordered By: Esme Baker on 12-12-2023 MCV (RBC) [Entitic vol] 82.0 fL 81-99 [facility] Erythrocyte distribution wid th ratioOrdered By: Esme Baker on 12-12-2023 Erythrocyte distribution width (RBC) [Ratio] 14.6 % 11.6-14.6 [facility] Erythrocyte distribution wid th standard deviationOrdered By: Esme Baker on 12-12-2023 Erythrocyte distribution width (RBC) [Entitic vol] 43.8 fL 35.1-43.9 [facility] Hematocrit Auto (Bld) [Volum e fraction]Ordered By: Esme Baker on 12-12-2023 Hematocrit (Bld) [Volume fraction] 32.4 % 37-47 [facility] Immature granulocytes/100 WB C Auto (Bld)Ordered By: Esme Baker on 12-12-2023 Immature granulocytes/100 WBC (Bld) 1.800 % 0.0-0.9 [facility] Comment on above: IG% - Immature Granu locytes (promyelocytes, myelocytes and metamyelocytes) > 1% indicates that a LEFT SHIFT is Present. Laboratory - Hematology and Cell countsOrdered By: Esme Baker on 12-12-2023 MCH (RBC) [Entitic mass] 26.8 pg 27.0-32.0 [facility] MCHC (RBC) [Mass/Vol] 32.7 g/dL 32-36 [facility] Nucleated RBC/100 WBC (Bld) [Ratio] 0 % 0-5 [facility] Platelet mean volume (Bld) [Entitic vol] 9.8 fL 6.2-12.0 [facility] Platelets (Bld) [#/Vol] 251 10*3/uL 150-450 [facility] RBC Auto (Bld) [#/Vol]Ordere d By: Esme Baker on 12-12-2023 RBC (Bld) [#/Vol] 3.95 10*6/uL 4.2-5.4 [facility] Serum Treponema species anti body detectionOrdered By: Esme Baker on 12-12-2023 Treponema sp Ab Ql (S) Non-Reactive [facility] No Panel InformationOrdered By: Esme Baker on 12-05-2023 Group B Streptococcus Culture Group B Beta Streptococcus is not isolated. [facility] Group B Streptococcus Culture Group B Beta Streptococcus is not isolated. [facility] Absolute lymphocyte countOrd ered By: Brandi Pacheco on 11-27-2023 Lymphocytes Auto (Unsp spec) [#/Vol] 1.66 10*3/uL 0.83-4.51 [facility] Activated partial thrombopla stin time (aPTT) in platelet poor plasma by coagulation aOrdered By: Brandi Pacheco on 11-27-2023 aPTT Coag (PPP) [Time] 28.2 s 24.1-36.2 [facility] Automated lymphocyte count a s percentage of total leukocytesOrdered By: Brandi Pacheco on 11-27-2023 Lymphocytes/100 WBC Auto (Unsp spec) 18.6 % 19-41 [facility] Basophil percentageOrdered B y: Brandi Pacheco on 11-27-2023 Basophils/100 WBC (Bld) 0.4 % 0-1 [facility] Eosinophils/100 WBC (Bld) 2.6 % 0-5 [facility] Hemoglobin (Bld) [Mass/Vol] 10.1 g/dL 12.0-15.0 [facility] Monocytes/100 WBC (Bld) 7.1 % 0-10 [facility] Neutrophils (Bld) [#/Vol] 6.3 10*3/uL 2.0-7.7 [facility] Neutrophils/100 WBC (Bld) 70.1 % 47-70 [facility] WBC (Bld) [#/Vol] 8.9 10*3/uL 4.4-11.0 [facility] Determination of erythrocyte mean corpuscular volume (MCV)Ordered By: Brandi Pacheco on 11-27-2023 MCV (RBC) [Entitic vol] 82.8 fL 81-99 [facility] Erythrocyte distribution wid th ratioOrdered By: Brandi Pacheco on 11-27-2023 Erythrocyte distribution width (RBC) [Ratio] 14.6 % 11.6-14.6 [facility] Erythrocyte distribution wid th standard deviationOrdered By: Brandi Pacheco on 11-27-2023 Erythrocyte distribution width (RBC) [Entitic vol] 43.1 fL 35.1-43.9 [facility] Hematocrit Auto (Bld) [Volum e fraction]Ordered By: Brandi Pacheco on 11-27-2023 Hematocrit (Bld) [Volume fraction] 30.3 % 37-47 [facility] Immature granulocytes/100 WB C Auto (Bld)Ordered By: Brandi Pacheco on 11-27-2023 Immature granulocytes/100 WBC (Bld) 1.200 % 0.0-0.9 [facility] Comment on above: IG% - Immature Granu locytes (promyelocytes, myelocytes and metamyelocytes) > 1% indicates that a LEFT SHIFT is Present. Laboratory - CoagulationOrde red By: Brandi Pacheco on 11-27-2023 INR Coag (Bld) [Relative time] 1.0 {INR} [facility] PT Coag (PPP) [Time] 13.4 s 11.7-14.9 [facility] Laboratory - Hematology and Cell countsOrdered By: Brandi Pacheco on 11-27-2023 MCH (RBC) [Entitic mass] 27.6 pg 27.0-32.0 [facility] MCHC (RBC) [Mass/Vol] 33.3 g/dL 32-36 [facility] Nucleated RBC/100 WBC (Bld) [Ratio] 0 % 0-5 [facility] Platelet mean volume (Bld) [Entitic vol] 9.9 fL 6.2-12.0 [facility] Platelets (Bld) [#/Vol] 276 10*3/uL 150-450 [facility] No Panel InformationOrdered By: Brandi Pacheco on 11-27-2023 Fibrinogen 545 mg/dl 203-444 [facility] RBC Auto (Bld) [#/Vol]Ordere d By: Brandi Pacheco on 11-27-2023 RBC (Bld) [#/Vol] 3.66 10*6/uL 4.2-5.4 [facility] Laboratory - Chemistry and C hemistry - challengeon 11-26-2023 Glucose Ql (U) Negative [facility] Laboratory - Urinalysison Protein Ql (U) Negative [facility] Laboratory - Chemistry and C hemistry - challengeon 11-14-2023 Glucose Ql (U) Negative [facility] Laboratory - Urinalysison Protein Ql (U) Negative [facility] Laboratory - Chemistry and C hemistry - challengeon 10-30-2023 Glucose Ql (U) Negative [facility] Laboratory - Urinalysison Protein Ql (U) Negative [facility] Quantitative serum or plasma 3 hour gestational glucose tolerance panelOrdered By: Marybel Torres on 10-23-2023 Glucose tolerance 3 hours gestational panel See comment [facility] Comment on above: FASTING 105 Col: 08/06 [...] Auto (Unsp spec) [#/Vol] 1.11 10*3/uL 0.83-4.51 [facility] Basophil percentageOrdered B y: Marybel Torres on 10-17-2023 Basophils/100 WBC (Bld) 0.8 % 0-1 [facility] Eosinophils/100 WBC (Bld) 2.9 % 0-5 [facility] Neutrophils (Bld) [#/Vol] 5.7 10*3/uL 2.0-7.7 [facility] Neutrophils/100 WBC (Bld) 72.9 % 47-70 [facility] WBC (Bld) [#/Vol] 7.9 10*3/uL 4.4-11.0 [facility] Blood erythrocytes count (nu mber/volume)Ordered By: Marybel Torres on 10-17-2023 RBC (Bld) [#/Vol] 3.36 10*6/uL 4.2-5.4 [facility] Blood hemoglobin measurement (mass/volume)Ordered By: Marybel Torres on 10-17-2023 Hemoglobin (Bld) [Mass/Vol] 9.4 g/dL 12.0-15.0 [facility] Blood lymphocytes/100 leukoc ytesOrdered By: Marybel Torres on 10-17-2023 Lymphocytes/100 WBC (Bld) 14.1 % 19-41 [facility] Blood monocytes/100 leukocyt esOrdered By: Marybel Torres on 10-17-2023 Monocytes/100 WBC (Bld) 5.7 % 0-10 [facility] Blood platelet mean volumeOr dered By: Marybel Torres on 10-17-2023 Platelet mean volume (Bld) [Entitic vol] 9.0 fL 6.2-12.0 [facility] Determination of erythrocyte mean corpuscular volume (MCV)Ordered By: Marybel Torres on 10-17-2023 MCV (RBC) [Entitic vol] 85.1 fL 81-99 [facility] Gestational diabetes screen 1-hour screen with 50g oral glucose loadOrdered By: Marbyel Torres on 10-17-2023 Glucose 1 Hr post 50 g glucose PO [Mass/Vol] 141 mg/dL 70-140 [facility] HIV 1 and HIV-2 antibody ass ay with HIV-1 p24 antigen detectionOrdered By: Marybel Torres on 10-17-2023 HIV 1+2 Ab+HIV1 p24 Ag IA Ql Non-Reactive Nonreactive [facility] Hematocrit Auto (Bld) [Volum e fraction]Ordered By: Marybel Torres on 10-17-2023 Hematocrit (Bld) [Volume fraction] 28.6 % 37-47 [facility] Laboratory - Chemistry and C hemistry - challengeon 10-17-2023 Glucose Ql (U) Negative [facility] Laboratory - Chemistry and C hemistry - challengeOrdered By: Anson Richter on 10-17-2023 Free T4 [Mass/Vol] 0.87 ng/dL 0.76-1.46 [facility] Laboratory - Hematology and Cell countsOrdered By: Marybel Torres on 10-17-2023 Erythrocyte distribution width (RBC) [Entitic vol] 37.2 fL 35.1-43.9 [facility] Erythrocyte distribution width (RBC) [Ratio] 12.1 % 11.6-14.6 [facility] Immature granulocytes/100 WBC (Bld) 3.600 % 0.0-0.9 [facility] Comment on above: IG% - Immature Granu locytes (promyelocytes, myelocytes and metamyelocytes) > 1% indicates that a LEFT SHIFT is Present. MCH (RBC) [Entitic mass] 28.0 pg 27.0-32.0 [facility] Nucleated RBC/100 WBC (Bld) [Ratio] 0 % 0-5 [facility] Laboratory - Urinalysison Protein Ql (U) Negative [facility] MCHC Auto (RBC) [Mass/Vol]Or dered By: Marybel Torres on 10-17-2023 MCHC (RBC) [Mass/Vol] 32.9 g/dL 32-36 [facility] No Panel InformationOrdered By: Anson Richter on 10-17-2023 Thyroid Stimulating Hormone (TSH) 1.99 uIU/mL 0.358-3.74 [facility] Platelets bldOrdered By: Gibson Torres on 10-17-2023 Platelets (Bld) [#/Vol] 279 10*3/uL 150-450 [facility] Serum Treponema species anti body detectionOrdered By: Marybel Torres on 10-17-2023 Treponema sp Ab Ql (S) Non-Reactive [facility] Absolute lymphocyte countOrd ered By: Fermín Rodrigues on 10-16-2023 Lymphocytes Auto (Unsp spec) [#/Vol] 1.73 10*3/uL 0.83-4.51 [facility] Basophil percentageOrdered B y: Fermín Rodrigues on 10-16-2023 Basophils/100 WBC (Bld) 0.6 % 0-1 [facility] Eosinophils/100 WBC (Bld) 2.2 % 0-5 [facility] Neutrophils (Bld) [#/Vol] 7.5 10*3/uL 2.0-7.7 [facility] Neutrophils/100 WBC (Bld) 72.3 % 47-70 [facility] WBC (Bld) [#/Vol] 10.4 10*3/uL 4.4-11.0 [facility] Basophil percentageOrdered B y: ED PROVIDER on 10-16-2023 Basophil percentage 0 SEEN /hpf 0-5 [facility] Bilirubin Test strip Ql (U)O rdered By: ED PROVIDER on 10-16-2023 Bilirubin Ql (U) Negative Negative [facility] Blood erythrocytes count (nu mber/volume)Ordered By: Fermín Rodrigues on 10-16-2023 RBC (Bld) [#/Vol] 3.53 10*6/uL 4.2-5.4 [facility] Blood hemoglobin measurement (mass/volume)Ordered By: Fermín Rodrigues on 10-16-2023 Hemoglobin (Bld) [Mass/Vol] 9.9 g/dL 12.0-15.0 [facility] Blood lymphocytes/100 leukoc ytesOrdered By: Fermín Rodrigues on 10-16-2023 Lymphocytes/100 WBC (Bld) 16.6 % 19-41 [facility] Blood monocytes/100 leukocyt esOrdered By: Fermín Rodrigues on 10-16-2023 Monocytes/100 WBC (Bld) 6.4 % 0-10 [facility] Blood platelet mean volumeOr dered By: Fermín Rodrigues on 10-16-2023 Platelet mean volume (Bld) [Entitic vol] 9.5 fL 6.2-12.0 [facility] Determination of erythrocyte mean corpuscular volume (MCV)Ordered By: Fermín Rodrigues on 10-16-2023 MCV (RBC) [Entitic vol] 83.3 fL 81-99 [facility] Hematocrit Auto (Bld) [Volum e fraction]Ordered By: Fermín Rodrigues on 10-16-2023 Hematocrit (Bld) [Volume fraction] 29.4 % 37-47 [facility] Ketones Test strip Ql (U)Ord ered By: ED PROVIDER on 10-16-2023 Ketones Ql (U) 15 mg/dl Negative [facility] Laboratory - Hematology and Cell countsOrdered By: Fermín Rodrigues on 10-16-2023 Erythrocyte distribution width (RBC) [Entitic vol] 36.4 fL 35.1-43.9 [facility] Erythrocyte distribution width (RBC) [Ratio] 12.0 % 11.6-14.6 [facility] Immature granulocytes/100 WBC (Bld) 1.900 % 0.0-0.9 [facility] Comment on above: IG% - Immature Granu locytes (promyelocytes, myelocytes and metamyelocytes) > 1% indicates that a LEFT SHIFT is Present. MCH (RBC) [Entitic mass] 28.0 pg 27.0-32.0 [facility] Nucleated RBC/100 WBC (Bld) [Ratio] 0 % 0-5 [facility] MCHC Auto (RBC) [Mass/Vol]Or dered By: Fermín Rodrigues on 10-16-2023 MCHC (RBC) [Mass/Vol] 33.7 g/dL 32-36 [facility] Mucus LM Ql (Urine sed)Order ed By: ED PROVIDER on 10-16-2023 Mucus Ql (Urine sed) 0 SEEN /hpf [facility] Nitrite Test strip Ql (U)Ord ered By: ED PROVIDER on 10-16-2023 Nitrite Ql (U) Negative Negative [facility] Platelets bldOrdered By: Fermín Rodrigues on 10-16-2023 Platelets (Bld) [#/Vol] 294 10*3/uL 150-450 [facility] Protein Test strip Ql (U)Ord ered By: ED PROVIDER on 10-16-2023 Protein Ql (U) Negative Negative [facility] Squamous epithelial cells de tection in urine sediment by light microscopyOrdered By: ED PROVIDER on 10-16-2023 Epithelial cells.squamous LM Ql (Urine sed) 0-5 SEEN /hpf 5-10 [facility] Urine blood detectionOrdered By: ED PROVIDER on 10-16-2023 RBC Ql (U) Negative Negative [facility] RBC Ql (U) 0 SEEN /hpf 0-5 [facility] Urine clarityOrdered By: ED PROVIDER on 10-16-2023 Clarity (U) Clear Clear [facility] Urine color determinationOrd ered By: ED PROVIDER on 10-16-2023 Color (U) Yellow Yellow [facility] Urine glucose detectionOrder ed By: ED PROVIDER on 10-16-2023 Glucose Ql (U) Normal mg/dl Normal [facility] Urine leukocyte esterase det ection by dipstickOrdered By: ED PROVIDER on 10-16-2023 Leukocyte esterase Test strip Ql (U) Negative Negative [facility] Urine pHOrdered By: ED PROVI ADRIAN on 10-16-2023 pH (U) 6.5 [pH] 5.0 - 8.0 [facility] Urine sediment bacteria coun t by microscopy (number/high power field)Ordered By: ED PROVIDER on 10-16-2023 Bacteria LM.HPF (Urine sed) [#/Area] 0 /[HPF] None Seen [facility] Urine specific gravity measu rementOrdered By: ED PROVIDER on 10-16-2023 Specific gravity (U) [Rel density] 1.010 1.002-1.030 [facility] Urobilinogen Auto test strip Ql (U)Ordered By: ED PROVIDER on 10-16-2023 Urobilinogen Ql (U) Normal mg/dl Normal [facility] Iron measurement (mass/mass) Ordered By: Bethany Cedillo on 10-03-2023 Iron (Unsp spec) [Mass/Mass] 31 ug/dL 50-170 [facility] No Panel InformationOrdered By: Bethany Cedillo on 10-03-2023 Total Iron Binding Capacity 526 ug/dL 250-450 [facility] Serum or plasma ferritin brenda surement (mass/volume)Ordered By: Bethany Pagetings on 10-03-2023 Ferritin [Mass/Vol] 4 ng/mL 8-252 [facility] Serum or plasma iron saturat ion measurement (mass fraction)Ordered By: Bethany Nguyen on 10-03-2023 Iron saturation [Mass fraction] 5.9 % 15.0-55.0 [facility] Absolute lymphocyte countOrd ered By: Bethany Nguyen on 09-16-2023 Lymphocytes Auto (Unsp spec) [#/Vol] 1.63 10*3/uL 0.83-4.51 [facility] Basophil percentageOrdered B y: Bethany Pagetings on 09-16-2023 Basophils/100 WBC (Bld) 0.6 % 0-1 [facility] Bilirubin [Mass/Vol] 0.20 mg/dL 0.20-1.00 [facility] Comment on above: For patients on eltr ombopag therapy, use of Dimension [place] TBIL is not recommended. Chloride [Moles/Vol] 105 mmol/L 98-107 [facility] Eosinophils/100 WBC (Bld) 2.2 % 0-5 [facility] Glucose [Mass/Vol] 117 mg/dL 74-106 [facility] Comment on above: Fasting Glucose resu lt from 100 to 125 mg/dL suggests IMPAIRED HOMEOSTASIS per A.D.A. criteria. Neutrophils (Bld) [#/Vol] 8.5 10*3/uL 2.0-7.7 [facility] Neutrophils/100 WBC (Bld) 74.4 % 47-70 [facility] Potassium [Moles/Vol] 3.6 mmol/L 3.5-5.1 [facility] Protein [Mass/Vol] 6.9 g/dL 6.4-8.2 [facility] Sodium [Moles/Vol] 136 mmol/L 136-145 [facility] WBC (Bld) [#/Vol] 11.4 10*3/uL 4.4-11.0 [facility] Blood erythrocytes count (nu mber/volume)Ordered By: Bethany Cedillo on 09-16-2023 RBC (Bld) [#/Vol] 3.56 10*6/uL 4.2-5.4 [facility] Blood hemoglobin measurement (mass/volume)Ordered By: Bethany Cedillo on 09-16-2023 Hemoglobin (Bld) [Mass/Vol] 10.3 g/dL 12.0-15.0 [facility] Blood lymphocytes/100 leukoc ytesOrdered By: Bethany Cedillo on 09-16-2023 Lymphocytes/100 WBC (Bld) 14.3 % 19-41 [facility] Blood monocytes/100 leukocyt esOrdered By: Bethanytoby Cedillo on 09-16-2023 Monocytes/100 WBC (Bld) 6.7 % 0-10 [facility] Blood platelet mean volumeOr dered By: Bethany Cedillo on 09-16-2023 Platelet mean volume (Bld) [Entitic vol] 9.2 fL 6.2-12.0 [facility] Determination of erythrocyte mean corpuscular volume (MCV)Ordered By: Bethany Cedillo on 09-16-2023 MCV (RBC) [Entitic vol] 88.2 fL 81-99 [facility] Hematocrit Auto (Bld) [Volum e fraction]Ordered By: Bethany Cedillo on 09-16-2023 Hematocrit (Bld) [Volume fraction] 31.4 % 37-47 [facility] Laboratory - Chemistry and C hemistry - challengeOrdered By: Bethany Cedillo on 09-16-2023 ALP [Catalytic activity/Vol] 76 U/L 45-117 [facility] ALT [Catalytic activity/Vol] 10 U/L 13-56 [facility] CO2 [Moles/Vol] 24.0 mmol/L 21.0-32.0 [facility] Globulin (S) [Mass/Vol] 4.2 g/dL 2.2-4.2 [facility] Urea nitrogen/Creatinine [Mass ratio] 16.6 mg/mg 10-20 [facility] Laboratory - Chemistry and C hemistry - challengeon 09-16-2023 Glucose Ql (U) Negative [facility] Laboratory - Hematology and Cell countsOrdered By: Bethany Cedillo on 09-16-2023 Erythrocyte distribution width (RBC) [Entitic vol] 39.0 fL 35.1-43.9 [facility] Erythrocyte distribution width (RBC) [Ratio] 12.1 % 11.6-14.6 [facility] Immature granulocytes/100 WBC (Bld) 1.800 % 0.0-0.9 [facility] Comment on above: IG% - Immature Granu locytes (promyelocytes, myelocytes and metamyelocytes) > 1% indicates that a LEFT SHIFT is Present. MCH (RBC) [Entitic mass] 28.9 pg 27.0-32.0 [facility] Nucleated RBC/100 WBC (Bld) [Ratio] 0 % 0-5 [facility] Laboratory - Urinalysison Protein Ql (U) Negative [facility] MCHC Auto (RBC) [Mass/Vol]Or dered By: Bethany Cedillo on 09-16-2023 MCHC (RBC) [Mass/Vol] 32.8 g/dL 32-36 [facility] No Panel InformationOrdered By: Bethany Cedillo on 09-16-2023 Estimated GFR (MDRD) Amer 178 mL/min >60 [facility] Comment on above: GFR Calc Estimated GFR (MDRD) Non-Af Amer 147 mL/min >60 [facility] Comment on above: Non- GFR Calc Platelets bldOrdered By: Patsy Cedillo on 09-16-2023 Platelets (Bld) [#/Vol] 287 10*3/uL 150-450 [facility] Serum or plasma albumin pravin urement (mass/volume)Ordered By: Bethany Cedillo on 09-16-2023 Albumin [Mass/Vol] 2.7 g/dL 3.2-5.0 [facility] Serum or plasma albumin/glob ulin mass ratioOrdered By: Bethany Cedillo on 09-16-2023 Albumin/Globulin [Mass ratio] 0.6 {ratio} 0.9-2.4 [facility] Serum or plasma calcium pravin urement (mass/volume)Ordered By: Bethany Cedillo on 09-16-2023 Calcium [Mass/Vol] 8.2 mg/dL 8.5-10.1 [facility] Serum or plasma creatinine m easurement (mass/volume)Ordered By: Bethany Cedillo on 09-16-2023 Creatinine [Mass/Vol] 0.54 mg/dL 0.55-1.02 [facility] Comment on above: The validity of the calculated GFR & GFRAA in patients over 70 years has not been determined. Clinical correlation is essential. Serum or plasma urea nitroge n measurement (mass/volume)Ordered By: Bethany Cedillo on 09-16-2023 Urea nitrogen [Mass/Vol] 9 mg/dL 7-18 [facility] Thin prep Papanicolaou smear with manual screeningOrdered By: Bethany Cedillo on 09-16-2023 Thin prep Papanicolaou smear with manual screening 8 U/L 15-37 [facility] Thin prep Papanicolaou smear with manual screening 7 5-15 [facility] Urine creatinine measurement (mass/volume)Ordered By: Bethany Cedillo on 09-16-2023 Creatinine (U) [Mass/Vol] 119.00 mg/dL NO RANGE EST. [facility] Urine protein measurement (m ass/volume)Ordered By: Bethany Cedillo on 09-16-2023 Protein (U) [Mass/Vol] 11.7 mg/dL 0.0-11.8 [facility] Urine protein/creatinine mas s ratioOrdered By: Bethany Cedillo on 09-16-2023 Protein/Creatinine (U) [Mass ratio] 98 mg/g CRE 0-200 [facility] Laboratory - Chemistry and C hemistry - challengeOrdered By: Anson Richter on 08-08-2023 Free T4 [Mass/Vol] 0.93 ng/dL 0.76-1.46 [facility] No Panel InformationOrdered By: Anson Richter on 08-08-2023 Thyroid Stimulating Hormone (TSH) 1.99 uIU/mL 0.358-3.74 [facility] Laboratory - Chemistry and C hemistry - challengeon 07-26-2023 Glucose Ql (U) Negative [facility] Laboratory - Urinalysison Protein Ql (U) Negative [facility] Laboratory - Chemistry and C hemistry - challengeOrdered By: Brandi Pacheco on 06-26-2023 Free T4 [Mass/Vol] 1.11 ng/dL 0.76-1.46 [facility] Laboratory - Chemistry and C hemistry - challengeon 06-26-2023 Glucose Ql (U) Negative [facility] Laboratory - Urinalysison Protein Ql (U) Negative [facility] No Panel InformationOrdered By: Brandi Pacheco on 06-26-2023 Thyroid Stimulating Hormone (TSH) 1.61 uIU/mL 0.358-3.74 [facility] Serum or plasma thyroperoxid ase antibody assay (units/volume)Ordered By: Brandi Pacheco on 06-26-2023 TPO Ab Qn 54 [IU]/mL 0-34 [facility] Comment on above: Performed at: [place] [id number] Director: Td Sanders PhD, Phone: [phone] Culture, urineOrdered By: Luciano Baker on 05-28-2023 Bacteria identified Cx Nom (U) Culture exhibits no growth. [facility] Absolute lymphocyte countOrd ered By: Esme Baker on 05-27-2023 Lymphocytes Auto (Unsp spec) [#/Vol] 1.86 10*3/uL 0.83-4.51 [facility] Basophil percentageOrdered B y: Esme Baker on 05-27-2023 Basophils/100 WBC (Bld) 0.5 % 0-1 [facility] Eosinophils/100 WBC (Bld) 1.3 % 0-5 [facility] Neutrophils (Bld) [#/Vol] 7.3 10*3/uL 2.0-7.7 [facility] Neutrophils/100 WBC (Bld) 73.3 % 47-70 [facility] WBC (Bld) [#/Vol] 9.9 10*3/uL 4.4-11.0 [facility] Blood erythrocytes count (nu mber/volume)Ordered By: Esme Baker on 05-27-2023 RBC (Bld) [#/Vol] 4.02 10*6/uL 4.2-5.4 [facility] Blood hemoglobin measurement (mass/volume)Ordered By: Esme Baker on 05-27-2023 Hemoglobin (Bld) [Mass/Vol] 11.6 g/dL 12.0-15.0 [facility] Blood lymphocytes/100 leukoc ytesOrdered By: Esme Baker on 05-27-2023 Lymphocytes/100 WBC (Bld) 18.8 % 19-41 [facility] Blood monocytes/100 leukocyt esOrdered By: Esme Baker on 05-27-2023 Monocytes/100 WBC (Bld) 5.5 % 0-10 [facility] Blood platelet mean volumeOr dered By: Esme Baker on 05-27-2023 Platelet mean volume (Bld) [Entitic vol] 8.9 fL 6.2-12.0 [facility] Chlamydia trachomatis rRNA d etection by probe and target amplification methodOrdered By: Esme Baker on 05-27-2023 C. trachomatis rRNA JACLYN+probe Ql (Unsp spec) Negative Negative [facility] Culture, urineOrdered By: Luciano Baker on 05-27-2023 Bacteria identified Cx Nom (U) Culture exhibits no growth. [facility] Determination of erythrocyte mean corpuscular volume (MCV)Ordered By: Esme Baker on 05-27-2023 MCV (RBC) [Entitic vol] 84.6 fL 81-99 [facility] HIV 1 and HIV-2 antibody ass ay with HIV-1 p24 antigen detectionOrdered By: Esme Baker on 05-27-2023 HIV 1+2 Ab+HIV1 p24 Ag IA Ql Non-Reactive Nonreactive [facility] Hematocrit Auto (Bld) [Volum e fraction]Ordered By: Esme Baker on 05-27-2023 Hematocrit (Bld) [Volume fraction] 34.0 % 37-47 [facility] Laboratory - Hematology and Cell countsOrdered By: Esme Baker on 05-27-2023 Erythrocyte distribution width (RBC) [Entitic vol] 36.7 fL 35.1-43.9 [facility] Erythrocyte distribution width (RBC) [Ratio] 12.0 % 11.6-14.6 [facility] Immature granulocytes/100 WBC (Bld) 0.600 % 0.0-0.9 [facility] Comment on above: IG% - Immature Granu locytes (promyelocytes, myelocytes and metamyelocytes) > 1% indicates that a LEFT SHIFT is Present. MCH (RBC) [Entitic mass] 28.9 pg 27.0-32.0 [facility] Nucleated RBC/100 WBC (Bld) [Ratio] 0 % 0-5 [facility] Laboratory - Microbiology an d Antimicrobial susceptibilityOrdered By: Esme Baker on 05-27-2023 N. gonorrhoeae DNA JACLYN+probe Ql (Unsp spec) Negative Negative [facility] Comment on above: Performed at: =[address] [id number] Director: Kenyetta Ibarra MD, Phone: [phone] [facility]CH[facility] Auto (RBC) [Mass/Vol]Or dered By: Esme Baker on 05-27-2023 MCHC (RBC) [Mass/Vol] 34.1 g/dL 32-36 [facility] No Panel InformationOrdered By: Esme Baker on 05-27-2023 Hepatitis B Surface Antigen Non-Reactive Nonreactive [facility] Hepatitis C Antibody Non-Reactive Nonreactive [facility] Comment on above: Non Reactive: < 0.8 Equivocal: >/= 0.8 to < 1.0 Reactive: >/= 1.0The CDC recommends that a reactive/equivocal HCV antibody result be followed up by the HCV Nucleic Acid Amplificationtest (692638) Rubella IgG Antibody Reactive Nonreactive [facility] Comment on above: Antibody Results Int erpretation of Immune Status Non Reactive Presumed Non-Immune Equivocal Equivocal Reactive Presumed Immune Platelets bldOrdered By: Shelton Baker on 05-27-2023 Platelets (Bld) [#/Vol] 304 10*3/uL 150-450 [facility] Serum Treponema species anti body detectionOrdered By: Esme Baker on 05-27-2023 Treponema sp Ab Ql (S) Non-Reactive [facility] HCG,BETA-QUANTITATIVEon 07-0 HCG,BETA-QUANTITATIVE 26 mIU/mL Abnormal [facility] Comment on above: Result Comment: . Total HCG measurement is performed using the [employer] AccuVein Access Immunoassay which detects intact HCG and free beta HCG subunit. . This test is not indicated for use as a tumor marker. HCG testing is performed using a different test methodology at [facility] than other [facility]. Direct result comparison should only be made [...] elevation. Performed By: #### H CGQU #### [address] [address] Lab Specimen Source Normal [facility] Comment on above: Performed By: #### H CGQU #### [address] [address] HCG,BETA-QUANTITATIVEon 07-0 HCG,BETA-QUANTITATIVE <3 Normal [facility] Comment on above: Result Comment: . Total HCG measurement is performed using the Siemens Atell6Scan immunoassay which detects intact HCG and free beta HCG subunit. . This test is not indicated for use as a tumor marker. HCG testing is performed using a different test methodology at [facility] than other [facility]. Direct result comparison should only be made within the same method. . REF VALUES NON FEMALE <5 MALES <5 Performed By: #### T 4FRE #### [address] [address] TRIIODOTHYRONINE,FREEon 07-0 TRIIODOTHYRONINE,FREE 3.1 pg/mL Normal 2.3 - 4.2 [facility] Comment on above: Performed By: #### T 3FRE #### [facility] [address] [place] [address] CBC AND DIFFERENTIALon 04-17 % AUTOMATED IMMATURE GRAN 0.3 % Normal 0.0 - 0.9 [facility] Comment on above: Result Comment: Jannie ture Granulocyte Count (IG) includes promyelocytes, myelocytes and metamyelocytes but does not include bands. Percent differential counts (%) should be interpreted in the context of the absolute cell counts (cells/L). Performed By: #### T 4FRE #### [address] [address] Basophils (Bld) [#/Vol] 0.05 10*3/uL Normal 0.00 - 0.10 [facility] Comment on above: Performed By: #### T 4FRE #### [address] [address] Basophils/100 WBC (Bld) 0.8 % Normal 0.0 - 2.0 [facility] Comment on above: Performed By: #### T 4FRE #### [address] [address] Eosinophils (Bld) [#/Vol] 0.19 10*3/uL Normal 0.00 - 0.70 [facility] Comment on above: Performed By: #### T 4FRE #### [address] [address] Eosinophils/100 WBC (Bld) 3.0 % Normal 0.0 - 6.0 [facility] Comment on above: Performed By: #### T 4FRE #### [address] [address] Erythrocyte distribution width (RBC) [Ratio] 12.0 % Normal 11.5 - 14.5 [facility] Network Comment on above: Performed By: #### T 4FRE #### [address] [address] Hematocrit (Bld) [Volume fraction] 34.9 % Low 36.0 - 46.0 [facility] Comment on above: Performed By: #### T 4FRE #### [address] [address] Hemoglobin (Bld) [Mass/Vol] 11.8 g/dL Low 12.0 - 16.0 [facility] Comment on above: Performed By: #### T 4FRE #### [address] [address] Lymphocytes (Bld) [#/Vol] 1.95 10*3/uL Normal 1.20 - 4.80 [facility] Comment on above: Performed By: #### T 4FRE #### [address] [address] Lymphocytes/100 WBC (Bld) 30.3 % Normal 13.0 - 44.0 [facility] Comment on above: Performed By: #### T 4FRE #### [address] [address] MCHC (RBC) [Mass/Vol] 33.8 g/dL Normal 32.0 - 36.[address] [facility] Comment on above: Performed By: #### T 4FRE #### [address] [address] MCV (RBC) [Entitic vol] 86 fL Normal 80 - 100 [facility] Comment on above: Performed By: #### T 4FRE #### [address] [address] Monocytes (Bld) [#/Vol] 0.48 10*3/uL Normal 0.10 - 1.00 [facility] Comment on above: Performed By: #### T 4FRE #### [address] [address] Monocytes/100 WBC (Bld) 7.5 % Normal 2.0 - 10.0 [facility] Comment on above: Performed By: #### T 4FRE #### [address] [address] Neutrophils (Bld) [#/Vol] 3.75 10*3/uL Normal 1.20 - 7.70 [facility] Comment on above: Result Comment: Perc ent differential counts (%) should be interpreted in the context of the absolute cell counts (cells/L). Performed By: #### T 4FRE #### [address] [address] Neutrophils/100 WBC (Bld) 58.1 % Normal 40.0 - 80.0 [facility] Comment on above: Performed By: #### T 4FRE #### [address] [address] Platelets (Bld) [#/Vol] 230 10*3/uL Normal 150 - 450 [facility] Comment on above: Performed By: #### T 4FRE #### [address] [address] RBC 4.06 x10E12/L Normal 4.00 - 5.20 [facility] Comment on above: Performed By: #### T 4FRE #### [address] [address] WBC (Bld) [#/Vol] 6.4 10*3/uL Normal 4.4 - 11.3 [facility] Comment on above: Performed By: #### T 4FRE #### [address] [address] FERRITINon 04-17-2023 FERRITIN 16 ug/L Normal 8 - 150 [facility] Comment on above: Performed By: #### F ERRI #### [address] [address] IRON + TIBCon 04-17-2023 % SATURATION 23 % Low 25 - 45 [facility] Comment on above: Performed By: #### T 4FRE #### [address] [address] Iron [Mass/Vol] 97 ug/dL Normal 35 - 150 [facility] Comment on above: Performed By: #### T 4FRE #### [address] [address] TIBC 429 ug/dL Normal 240 - 445 [facility] Comment on above: Performed By: #### T 4FRE #### [address] [address] THYROXINE,FREEon 04-17-2023 THYROXINE,FREE 0.65 ng/dL Normal 0.61 - 1.12 [facility] Comment on above: Result Comment: Thyr oxine Free testing is performed using different testing methodology at [facility] than at other [facility]. Direct result comparisons should only [...] draw. Performed By: #### T 4FRE #### [place] [address] Lab Specimen Source Normal [facility] Comment on above: Performed By: #### T 4FRE #### [place] [address] Performed By: #### F ERRI #### [place] [address] Performed By: #### T SH2 #### [place] [address] Performed By: #### T 3FRE #### [facility] [address] [place] [id number] TSHon 04-17-2023 TSH Qn 2.87 m[IU]/L Normal 0.44 - 3.98 [facility] Comment on above: Result Comment: TSH testing is performed using different testing methodology at [facility] than at other [facility]. Direct result comparisons should only be made within the same method. Performed By: #### T SH2 #### [place] [address] TRIIODOTHYRONINE,FREEon TRIIODOTHYRONINE,FREE 3.3 pg/mL Normal 2.3 - 4.2 [facility] Comment on above: Performed By: #### T 3FRE #### [facility] [address] [place] [address] CBC AND DIFFERENTIALon 03-19 % AUTOMATED IMMATURE GRAN 0.4 % Normal 0.0 - 0.9 [facility] Comment on above: Result Comment: Jannie ture Granulocyte Count (IG) includes promyelocytes, myelocytes and metamyelocytes but does not include bands. Percent differential counts (%) should be interpreted in the context of the absolute cell counts (cells/L). Performed By: #### C BCDF #### [place] [address] Basophils (Bld) [#/Vol] 0.04 10*3/uL Normal 0.00 - 0.10 [facility] Comment on above: Performed By: #### C BCDF #### [address] [address] Basophils/100 WBC (Bld) 0.9 % Normal 0.0 - 2.0 [facility] Comment on above: Performed By: #### C BCDF #### [address] [address] Eosinophils (Bld) [#/Vol] 0.16 10*3/uL Normal 0.00 - 0.70 [facility] Comment on above: Performed By: #### C BCDF #### [address] [address] Eosinophils/100 WBC (Bld) 3.4 % Normal 0.0 - 6.0 [facility] Comment on above: Performed By: #### C BCDF #### [address] [address] Erythrocyte distribution width (RBC) [Ratio] 12.1 % Normal 11.5 - 14.5 [facility] Comment on above: Performed By: #### C BCDF #### [address] [address] Hematocrit (Bld) [Volume fraction] 36.8 % Normal 36.0 - 46.0 [facility] Comment on above: Performed By: #### C BCDF #### [address] [address] Hemoglobin (Bld) [Mass/Vol] 12.3 g/dL Normal 12.0 - 16.0 [facility] Comment on above: Performed By: #### C BCDF #### [address] [address] Lymphocytes (Bld) [#/Vol] 1.72 10*3/uL Normal 1.20 - 4.80 [facility] Comment on above: Performed By: #### C BCDF #### [address] [address] Lymphocytes/100 WBC (Bld) 36.9 % Normal 13.0 - 44.0 [facility] Comment on above: Performed By: #### C BCDF #### [address] [address] MCHC (RBC) [Mass/Vol] 33.4 g/dL Normal 32.0 - 36.[address] [facility] Comment on above: Performed By: #### C BCDF #### [address] [address] MCV (RBC) [Entitic vol] 86 fL Normal 80 - 100 [facility] Comment on above: Performed By: #### C BCDF #### [address] [address] Monocytes (Bld) [#/Vol] 0.35 10*3/uL Normal 0.10 - 1.00 [facility] Comment on above: Performed By: #### C BCDF #### [address] [address] Monocytes/100 WBC (Bld) 7.5 % Normal 2.0 - 10.0 [facility] Comment on above: Performed By: #### C BCDF #### [address] [address] Neutrophils (Bld) [#/Vol] 2.37 10*3/uL Normal 1.20 - 7.70 [facility] Comment on above: Result Comment: Perc ent differential counts (%) should be interpreted in the context of the absolute cell counts (cells/L). Performed By: #### C BCDF #### [address] [address] Neutrophils/100 WBC (Bld) 50.9 % Normal 40.0 - 80.0 [facility] Comment on above: Performed By: #### C BCDF #### [address] [address] Platelets (Bld) [#/Vol] 266 10*3/uL Normal 150 - 450 [facility] Comment on above: Performed By: #### C BCDF #### [address] [address] RBC 4.27 x10E12/L Normal 4.00 - 5.20 [facility] Comment on above: Performed By: #### C BCDF #### [place] [address] WBC (Bld) [#/Vol] 4.7 10*3/uL Normal 4.4 - 11.3 [facility] Comment on above: Performed By: #### C BCDF #### [place] [address] Lab Specimen Source Normal [facility] Comment on above: Performed By: #### C BCDF #### [place] [address] Performed By: #### T 3FRE #### [facility] [address] [place] [address] Performed By: #### C MP #### [place] [address] Performed By: #### F ERRI #### [place] [address] Performed By: #### T 4FRE #### [place] [address] COMPREHENSIVE PANELon 2022 Albumin [Mass/Vol] 4.6 g/dL Normal 3.4 - 5.0 [facility] Comment on above: Performed By: #### C MP #### [place] [address] ALP [Catalytic activity/Vol] 60 U/L Normal 33 - 110 [facility] Comment on above: Performed By: #### C MP #### [place] [address] ALT [Catalytic activity/Vol] 7 U/L Normal 7 - 45 [facility] Comment on above: Result Comment: Martha ents treated with Sulfasalazine may generate falsely decreased results for ALT. Performed By: #### C MP #### [place] [address] Anion gap [Moles/Vol] 11 mmol/L Normal 10 - 20 [facility] Comment on above: Performed By: #### C MP #### [place] [address] AST [Catalytic activity/Vol] 11 U/L Normal 9 - 39 [facility] Comment on above: Performed By: #### C MP #### [address] [address] Bilirubin [Mass/Vol] 0.4 mg/dL Normal 0.0 - 1.2 [facility] Comment on above: Performed By: #### C MP #### [address] [address] Calcium [Mass/Vol] 8.9 mg/dL Normal 8.6 - 10.3 [facility] Comment on above: Performed By: #### C MP #### [address] [address] Chloride [Moles/Vol] 105 mmol/L Normal 98 - 107 [facility] Comment on above: Performed By: #### C MP #### [address] [address] Creatinine [Mass/Vol] 0.75 mg/dL Normal 0.50 - 1.[address] [facility] Comment on above: Performed By: #### C MP #### [address] [address] eGFR FEMALE >90 Normal >90 [facility] Comment on above: Result Comment: CALC ULATIONS OF ESTIMATED GFR ARE PERFORMED USING THE 2020 CKD-EPI STUDY REFIT EQUATION WITHOUT THE RACE VARIABLE FOR THE IDMS-TRACEABLE CREATININE METHODS. https://jasn.asnjournals.org/content//ASN.32352 [address] Performed By: #### C MP #### [address] [address] Glucose [Mass/Vol] 90 mg/dL Normal 74 - 99 [facility] Comment on above: Performed By: #### C MP #### [address] [address] HCO3 (Bld) [Moles/Vol] 24 mmol/L Normal 21 - [address] [facility] Comment on above: Performed By: #### C MP #### [address] [address] Potassium [Moles/Vol] 3.8 mmol/L Normal 3.5 - 5.3 [facility] Comment on above: Performed By: #### C MP #### [address] [address] Protein [Mass/Vol] 7.1 g/dL Normal 6.4 - 8.2 [facility] Comment on above: Performed By: #### C MP #### [address] [address] Sodium [Moles/Vol] 136 mmol/L Normal 136 - 145 [facility] Comment on above: Performed By: #### C MP #### [address] [address] Urea nitrogen [Mass/Vol] 14 mg/dL Normal 6 - 23 [facility] Comment on above: Performed By: #### C MP #### [place] [address] FERRITINon 03-19-2023 FERRITIN 19 ug/L Normal 8 - 150 [facility] Comment on above: Performed By: #### F ERRI #### [address] [address] FOLATE, SERUMon 03-19-2023 Folate [Mass/Vol] 18.9 ng/mL Normal >5.0 [facility] Comment on above: Result Comment: Low <3.4 Borderline 3.4-5.0 Normal >5.0 . Patients receiving more than 5 mg/day of biotin may have interference in test results. A sample should be taken no sooner than eight hours after previous dose. Contact the testing laboratory for additional information. Performed By: #### T 4FRE #### [address] [address] HEMOGLOBIN A1Con 03-19-2023 Glucose [Mass/Vol] 97 mg/dL Normal [facility] Comment on above: Performed By: #### H BA1E #### [address] [address] HbA1c (Bld) [Mass fraction] 5.0 % Normal [facility] Comment on above: Result Comment: Diag nosis of Diabetes-Adults Non-Diabetic: < or = 5.6% Increased risk for developing diabetes: 5.7-6.4% Diagnostic of diabetes: > or = 6.5% . Monitoring of Diabetes Age (y) Therapeutic Goal (%) Adults: >18 <7.0 Pediatrics: 13-18 <7.5 7-12 <8.0 0- 6 7.5-8.5 [employer]. Diabetes Care 33(S1), Oct 2009. Performed By: #### H BA1E #### [address] [address] IRON + TIBCon 03-19-2023 % SATURATION 10 % Low 25 - 45 [facility] Comment on above: Performed By: #### T 4FRE #### [address] [address] Iron [Mass/Vol] 40 ug/dL Normal 35 - 150 [facility] Comment on above: Performed By: #### T 4FRE #### [address] [address] TIBC 420 ug/dL Normal 240 - 445 [facility] Comment on above: Performed By: #### T 4FRE #### [address] [address] LIPID PANEL (CORONARY RISK 2 )on 03-19-2023 Cholesterol [Mass/Vol] 167 mg/dL Normal 0 - [address] [facility] Comment on above: Result Comment: . [...] dosing. Performed By: #### T 4FRE #### [address] [address] Cholesterol in HDL [Mass/Vol] 68.0 mg/dL Normal [facility] Comment on above: Result Comment: . AGE VERY LOW LOW NORMAL HIGH 0-19 Y < 35 < 40 40-45 ---- 20-24 Y ---- < 40 >45 ---- >24 Y ---- < 40 40-60 >60 . Performed By: #### T 4FRE #### [address] [address] Cholesterol in LDL [Mass/Vol] 92 mg/dL Normal 0 - 119 [facility] Comment on above: Result Comment: . NEAR BORD AGE DESIRABLE OPTIMAL HIGH HIGH VERY HIGH 0-19 Y 0 - 109 --- 110-129 >/= 130 ---- 20-24 Y 0 - 119 --- 120-159 >/= 160 ---- >24 Y 0 - 99 100-129 130-159 160-189 >/=190 . Performed By: #### T 4FRE #### [address] [address] Cholesterol in VLDL [Mass/Vol] 7 mg/dL Normal 0 - 40 [facility] Comment on above: Performed By: #### T 4FRE #### [address] [address] Cholesterol.total/Chol esterol in HDL [Mass ratio] 2.5 {ratio} Normal [facility] Comment on above: Result Comment: REF VALUES DESIRABLE < 3.4 HIGH RISK > 5.0 Performed By: #### T 4FRE #### [address] [address] NON-HDL CHOLESTEROL 99 mg/dL Normal 0 - 149 [facility] Comment on above: Result Comment: AGE DESIRABLE BORDERLINE HIGH HIGH VERY HIGH 0-19 Y 0 - 119 120 - 144 >/= 145 >/= 160 20-24 Y 0 - 149 150 - 189 >/= 190 ---- >24 Y 30 MG/DL ABOVE LDL CHOLESTEROL GOAL . Performed By: #### T 4FRE #### [address] [address] Triglyceride [Mass/Vol] 33 mg/dL Normal 0 - 149 [facility] Comment on above: Result Comment: . AGE [...] dosing. Performed By: #### T 4FRE #### [place] [address] THYROXINE,FREEon 03-19-2023 THYROXINE,FREE 0.78 ng/dL Normal 0.61 - 1.12 [facility] Comment on above: Result Comment: Thyr oxine Free testing is performed using different testing methodology at [facility] than at other [facility]. Direct result comparisons should only [...] draw. Performed By: #### T 4FRE #### [address] [address] TSHon 03-19-2023 TSH Qn 5.03 m[IU]/L High 0.44 - 3.98 [facility] Comment on above: Result Comment: TSH testing is performed using different testing methodology at [facility] than at other [facility]. Direct result comparisons should only be made within the same method. Performed By: #### T 4FRE #### [address] [address] VITAMIN B12on 03-19-2023 Cobalamin (Vitamin B12) [Mass/Vol] 324 pg/mL Normal 211 - 911 [facility] Comment on above: Performed By: #### T 4FRE #### [place] [address] CHEST 2 VIEW PA AND LATon CHEST 2 VIEW PA AND LAT Patient Name: JOHNY FREED STUDY: TH CHEST 2 VIEW PA AND LAT; INDICATION: COUGH. COMPARISON: 12/29/2021. ACCESSION NUMBER(S): [id number] ORDERING CLINICIAN: ALEXA LANCASTER FINDINGS: The cardiac silhouette size is within normal limits. There is no focal consolidation, edema or pneumothorax. No sizeable pleural effusion. IMPRESSION: 1. No acute cardiopulmonary process. 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 pelvic floor PT [...] daily Probiotic CAPS Vitals Vital Signs Recorded: [id number] 01:21PM [id number] Lvrnnovdx30 Height5 ft 2 in Rgmnqe078 lb 5.71 oz BMI Jihrkfsxis01.85 kg/m2 BSA Calculated1.59 [id number] Physical Exam Constitutional: Alert and in no acute distress. Well developed, well nourished Pulmonary: No respiratory distress Psychiatric: alert and oriented x 3., affect normal to patient baseline, mood: appropriate and judgment and insight: intact Results/Data IO HCG, Urine [id number] 01:23PMFrsuleiman Rochelle DIVINA HCG LOT [id number] EXP 2023-11-13 Test NameResultFlagReference IO Urine hCGNegative Signatures Electronically signed by : Rochelle Boyer APRN-OTF [facility]; Dec 06 2022 4:18PM EST (Author) Normal [facility] Office Visit (Internal Medic ine)on 10-17-2022 Follow-up visit Diagnoses/Problems Assessed Thyroiditis (245.9) (E06.9) Mother currently breast-feeding (V24.1) (Z39.1) Other malaise and fatigue (780.79) (R53.81,R53.83) Seasonal allergies (477.9) (J30.2) Tachycardia (785.0) (R00.0) Patient Discussion/Summary Due to COVID 19 threat, virtual appointment completed with [employer] kristi f/u PRN Provider Impressions 1.Complexity: More [...] infection (V12.09 (more content not included)... Normal [employer] CBC AND DIFFERENTIALon 09-24 % AUTOMATED IMMATURE GRAN 0.2 % Normal 0.0 - 0.9 [facility] Comment on above: Result Comment: Jannie ture Granulocyte Count (IG) includes promyelocytes, myelocytes and metamyelocytes but does not include bands. Percent differential counts (%) should be interpreted in the context of the absolute cell counts (cells/L). Performed By: #### G ENLO #### [facility] [address] [place] [address] Basophils (Bld) [#/Vol] 0.07 10*3/uL Normal 0.00 - 0.10 [facility] Comment on above: Performed By: #### G ENLO #### [facility] [address] [place] [address] Basophils/100 WBC (Bld) 1.2 % Normal 0.0 - 2.0 [facility] Comment on above: Performed By: #### G ENLO #### [facility] [address] [place] [address] Eosinophils (Bld) [#/Vol] 0.22 10*3/uL Normal 0.00 - 0.70 [facility] Comment on above: Performed By: #### G ENLO #### [facility] [address] [place] [address] Eosinophils/100 WBC (Bld) 3.8 % Normal 0.0 - 6.0 [facility] Comment on above: Performed By: #### G ENLO #### [facility] [address] [place] [address] Erythrocyte distribution width (RBC) [Ratio] 11.9 % Normal 11.5 - 14.5 [facility] Comment on above: Performed By: #### G ENLO #### [facility] [address] [place] [address] Hematocrit (Bld) [Volume fraction] 37.4 % Normal 36.0 - 46.0 [facility] Comment on above: Performed By: #### G ENLO #### [facility] [address] [place] [address] Hemoglobin (Bld) [Mass/Vol] 12.4 g/dL Normal 12.0 - 16.0 [facility] Comment on above: Performed By: #### G ENLO #### [facility] [address] [place] [address] Lymphocytes (Bld) [#/Vol] 1.74 10*3/uL Normal 1.20 - 4.80 [facility] Comment on above: Performed By: #### G ENLO #### [facility] [address] [place] [address] Lymphocytes/100 WBC (Bld) 30.3 % Normal 13.0 - 44.0 [facility] Comment on above: Performed By: #### G ENLO #### [facility] [address] [place] [address] MCHC (RBC) [Mass/Vol] 33.2 g/dL Normal 32.0 - 36.0 [facility] Comment on above: Performed By: #### G ENLO #### [facility] [address] [place] [address] MCV (RBC) [Entitic vol] 86 fL Normal 80 - 100 [facility] Comment on above: Performed By: #### G ENLO #### [facility] [address] [place] [address] Monocytes (Bld) [#/Vol] 0.38 10*3/uL Normal 0.10 - 1.00 [facility] Comment on above: Performed By: #### G ENLO #### [facility] [address] [place] [address] Monocytes/100 WBC (Bld) 6.6 % Normal 2.0 - 10.0 [facility] Comment on above: Performed By: #### G ENLO #### [facility] [address] [place] [address] Neutrophils (Bld) [#/Vol] 3.32 10*3/uL Normal 1.20 - 7.70 [facility] Comment on above: Result Comment: Perc ent differential counts (%) should be interpreted in the context of the absolute cell counts (cells/L). Performed By: #### G ENLO #### [facility] [address] [place] [address] Neutrophils/100 WBC (Bld) 57.9 % Normal 40.0 - 80.0 [facility] Comment on above: Performed By: #### G ENLO #### [facility] [address] [place] [address] Platelets (Bld) [#/Vol] 288 10*3/uL Normal 150 - 450 [facility] Comment on above: Performed By: #### G ENLO #### [facility] [address] [place] [address] RBC 4.33 x10E12/L Normal 4.00 - 5.20 [facility] Comment on above: Performed By: #### G ENLO #### [facility] [address] [place] [address] WBC (Bld) [#/Vol] 5.7 10*3/uL Normal 4.4 - 11.3 [facility] [place] Comment on above: Performed By: #### G ENLO #### [facility] [address] [place] [address] Complete Blood Count + Diffe rentialon 09-24-2022 Basophils/100 WBC (Bld) 1.2 % 0.0 - 2.0 [facility] Work Phone: Erythrocyte distribution width (RBC) [Ratio] 11.9 % See Below [facility] Work Phone: Comment on above: Reference Range: 11. 5 - 14.5 Hematocrit (Bld) [Volume fraction] 37.4 % See Below [facility] Work Phone: Comment on above: Reference Range: 36. 0 - 46.0 Hemoglobin (Bld) [Mass/Vol] 12.4 g/dL See Below [facility] Work Phone: Comment on above: Reference Range: 12. 0 - 16.0 Lymphocytes/100 WBC (Bld) 30.3 % See Below [facility] Work Phone: Comment on above: Reference Range: 13. 0 - 44.0 MCHC (RBC) [Mass/Vol] 33.2 g/dL See Below [facility] Work Phone: Comment on above: Reference Range: 32. 0 - 36.0 MCV (RBC) [Entitic vol] 86 fL 80 - 100 [facility] Work Phone: [phone] Monocytes/100 WBC (Bld) 6.6 % 2.0 - 10.0 [facility] Work Phone: Neutrophils/100 WBC (Bld) 57.9 % See Below [facility] Work Phone: Comment on above: Reference Range: 40. 0 - 80.0 Platelets (Bld) [#/Vol] 288 10*3/uL 150 - 450 [facility] Work Phone: [phone] RBC (Bld) [#/Vol] 4.33 {x10E12/L} See Below [facility] Work Phone: [phone] Comment on above: Reference Range: 4.0 0 - 5.20 WBC (Bld) [#/Vol] 5.7 10*3/uL 4.4 - 11.3 [facility] Work Phone: [phone] Complete Blood Count + Differential 0.07 {x10E9/L} See Below [facility] Work Phone: Comment on above: Reference Range: 0.0 0 - 0.10 Complete Blood Count + Differential 0.22 {x10E9/L} See Below [facility] Work Phone: Comment on above: Reference Range: 0.0 0 - 0.70 Complete Blood Count + Differential 0.38 {x10E9/L} See Below [facility] Work Phone: Comment on above: Reference Range: 0.1 0 - 1.00 Complete Blood Count + Differential 1.74 {x10E9/L} See Below [facility] Work Phone: Comment on above: Reference Range: 1.2 0 - 4.80 Complete Blood Count + Differential 3.32 {x10E9/L} See Below [facility] Work Phone: Comment on above: Reference Range: 1.2 0 - 7.70 Percent differential counts (%) should be interpreted in the context of the absolute cell counts (cells/L). Complete Blood Count + Differential 3.8 % 0.0 - 6.0 [facility] Work Phone: Complete Blood Count + Differential 0.2 % 0.0 - 0.9 [facility] Work Phone: [phone] Comment on above: Immature Granulocyte Count (IG) includes promyelocytes, myelocytes and metamyelocytes but does not include bands. Percent differential counts (%) should be interpreted in the context of the absolute cell counts (cells/L). Cult, Urineon 09-24-2022 Bacteria identified Cx Nom (U) [facility] Work Phone: [phone] FERRITINon 09-24-2022 FERRITIN 41 ug/L Normal 8 - 150 [facility] Comment on above: Performed By: #### F ERRI #### [address] [address] Ferritin, Serumon 09-24-2022 Ferritin [Mass/Vol] 41 ug/L 8 - 150 [facility] Medicine Work Phone: [phone] IO UA (automated w/o microsc opy)on 09-24-2022 Protein (U) [Mass/Vol] Negative [facility] Medicine Work Phone: [phone] IO UA (automated w/o microscopy) Negative [facility] Work Phone: [phone] IO UA (automated w/o microscopy) Normal (0.2-1.0 mg/dl) [facility] Medicine Work Phone: [phone] IO UA (automated w/o microscopy) 7.0 1 [facility] Work Phone: [phone] IO UA (automated w/o microscopy) 1.025 1 [facility] Work Phone: [phone] IO UA (automated w/o microscopy) Clear [facility] Work Phone: [phone] IO UA (automated w/o microscopy) Yellow [facility] Work Phone: [phone] IRON + TIBCon 09-24-2022 % SATURATION 27 % Normal 25 - 45 [facility] Comment on above: Performed By: #### I RONT #### [address] [address] Iron [Mass/Vol] 105 ug/dL Normal 35 - 150 [facility] Comment on above: Performed By: #### I RONT #### [address] [address] TIBC 392 ug/dL Normal 240 - 445 [facility] Comment on above: Performed By: #### I RONT #### [address] [address] Laboratory - Chemistry and C hemistry - challengeon 09-24-2022 Iron [Mass/Vol] 105 ug/dL 35 - 150 [facility] Medicine Work Phone: Iron binding capacity [Mass/Vol] 392 ug/dL 240 - 445 [facility] Work Phone: No Panel Informationon 09-24 27 % 25 - 45 [facility] Work Phone: Office Visit (Internal [...] (Z11.3) Scre (more content not included)... [facility] - Free Thyroxine, Serumon 09-24-2022 Free T4 [Mass/Vol] 0.88 ng/dL See Below [facility] Work Phone: Comment on above: Reference Range: 0.6 1 - 1.12 Thyroxine Free testing is performed using different testing methodology at [facility] than at other [facility]. Direct result comparisons should only [...] THYROXINE,FREE 0.88 ng/dL Normal 0.61 - 1.12 [facility] Comment on above: Result Comment: Thyr oxine Free testing is performed using different testing methodology at [facility] than at [facility]. Direct result comparisons should only be [...] draw. Performed By: #### G ENLO #### [facility] [address] [facility] [place] [address] TSHon 09-24-2022 TSH Qn 3.72 m[IU]/L Normal 0.44 - 3.98 [facility] Comment on above: Result Comment: TSH testing is performed using different testing methodology at [facility] than at other [facility]. Direct result comparisons should only be made within the same method. Performed By: #### T SH2 #### [facility] [address] [place] [address] TSH - Thyroid Stimulating Ho rmone, Serumon 09-24-2022 TSH Qn 3.72 m[IU]/L See Below [facility] Work Phone: Comment on above: Reference Range: 0.4 4 - 3.98 TSH testing is performed using different testing methodology at [facility] than at other [facility]. Direct result comparisons should only be made within the same method. Tobacco Screening.on 022 Fall risk assessment a) No falls within the last year [facility] Work Phone: Tobacco use status CPHS b) No [facility] Work Phone: URINE CULTURE,BACTERIALon URINE CULTURE,BACTERIAL PATIENT: JOHNY FRE[place] [facility] [place] [id number] : [birth year] AGE: SEX: F ORDERED BY: CHRYSTAL ALAMO SOURCE: URINE COLLECTED: 09/24/22 14:51 ANTIBIOTICS AT [facility].: RECEIVED : 09/24/22 23:59 SITE: Clean Catch/Voided R E S U L T S URINE CULTURE,BACTERIAL FINAL 09/26/22 03:10 NO SIGNIFICANT GROWTH. Normal [facility] Comment on above: Performed By: #### U RINC #### [facility] [address] [place] [address] VITAMIN B12on 09-24-2022 Cobalamin (Vitamin B12) [Mass/Vol] 331 pg/mL Normal 211 - 911 [facility] Comment on above: Performed By: #### G ENLO #### [facility] [address] [place] [address] Vitamin B12, Serumon Cobalamin (Vitamin B12) [Mass/Vol] 331 pg/mL 211 - 911 [facility] Work Phone: CBC AND DIFFERENTIALon 03-20 Basophils (Bld) [#/Vol] 0.10 10*3/uL Normal 0.00 - 0.10 [facility] Comment on above: Performed By: #### C BCDF #### [address] [address] Eosinophils (Bld) [#/Vol] 0.70 10*3/uL Normal 0.00 - 0.70 [facility] Comment on above: Performed By: #### C BCDF #### [address] [address] Eosinophils/100 WBC (Bld) 13.8 % Normal 0.0 - 6.0 [facility] Comment on above: Performed By: #### C BCDF #### [address] [address] Lymphocytes (Bld) [#/Vol] 1.70 10*3/uL Normal 1.20 - 4.80 [facility] Comment on above: Performed By: #### C BCDF #### [address] [address] Monocytes (Bld) [#/Vol] 0.40 10*3/uL Normal 0.10 - 1.00 [facility] Comment on above: Performed By: #### C BCDF #### [address] [address] Neutrophils (Bld) [#/Vol] 2.20 10*3/uL Normal 1.20 - 7.70 [facility] Comment on above: Result Comment: Perc ent differential counts (%) should be interpreted in the context of the absolute cell counts (cells/L). Performed By: #### C BCDF #### [address] [address] RBC 4.42 x10E12/L Normal 4.00 - 5.20 [facility] Comment on above: Performed By: #### C BCDF #### [address] [address] COMPREHENSIVE PANELon 2021 Albumin [Mass/Vol] 4.4 g/dL Normal 3.4 - 5.0 [facility] [place] Comment on above: Performed By: #### G ENLO #### [facility] [address] [place] [address] ALP [Catalytic activity/Vol] 93 U/L Normal 33 - 110 [facility] Work Phone: Comment on above: Performed By: #### G ENLO #### [facility] [address] [place] [address] ALT [Catalytic activity/Vol] 11 U/L Normal 7 - 45 [facility] Comment on above: Result Comment: Martha ents treated with Sulfasalazine may generate falsely decreased results for ALT. Performed By: #### G ENLO #### [facility] [address] [place] [address] Anion gap [Moles/Vol] 12 mmol/L Normal 10 - 20 [facility] Medicine Work Phone: Comment on above: Performed By: #### G ENLO #### [facility] [address] [place] [address] AST [Catalytic activity/Vol] 12 U/L Normal 9 - 39 [facility] Comment on above: Performed By: #### G ENLO #### [facility] [address] [place] [address] Bilirubin [Mass/Vol] 0.5 mg/dL Normal 0.0 - 1.2 [facility] Internal [facility] Work Phone: Comment on above: Performed By: #### G ENLO #### [facility] [address] [place] [address] Calcium [Mass/Vol] 9.4 mg/dL Normal 8.6 - 10.3 [facility] Work Phone: Comment on above: Performed By: #### G ENLO #### [facility] [address] [place] [address] Chloride [Moles/Vol] 107 mmol/L Normal 98 - 107 [facility] Work Phone: Comment on above: Performed By: #### G ENLO #### [facility] [address] [place] [address] Creatinine [Mass/Vol] 0.70 mg/dL Normal 0.50 - 1.05 [facility] Work Phone: Comment on above: Reference Range: 0.5 0 - 1.05 Performed By: #### G ENLO #### [facility] [address] [place] [address] eGFR FEMALE >90 Normal >90 [facility] Comment on above: Result Comment: CALC ULATIONS OF ESTIMATED GFR ARE PERFORMED USING THE 2020 CKD-EPI STUDY REFIT EQUATION WITHOUT THE RACE VARIABLE FOR THE IDMS-TRACEABLE CREATININE METHODS. https://jasn.asnjournals.org/content//ASN.81525 [address] Performed By: #### G ENLO #### [facility] [address] [place] [address] Glucose [Mass/Vol] 88 mg/dL Normal 74 - 99 [facility] Work Phone: Comment on above: Performed By: #### G ENLO #### [facility] [address] [place] [address] HCO3 (Bld) [Moles/Vol] 24 mmol/L Normal 21 - 32 [facility] Comment on above: Performed By: #### G ENLO #### [facility] [address] [place] [address] Potassium [Moles/Vol] 3.8 mmol/L Normal 3.5 - 5.3 [facility] Work Phone: Comment on above: Performed By: #### G ENLO #### [facility] [address] [place] [address] Protein [Mass/Vol] 7.4 g/dL Normal 6.4 - 8.2 [facility] Work Phone: Comment on above: Performed By: #### G ENLO #### [facility] [address] [place] [address] Sodium [Moles/Vol] 139 mmol/L Normal 136 - 145 [facility] Work Phone: Comment on above: Performed By: #### G ENLO #### [facility] [address] [place] [address] Urea nitrogen [Mass/Vol] 15 mg/dL Normal 6 - 23 [facility] Work Phone: Comment on above: Performed By: #### G ENLO #### [facility] [address] [place] [address] Complete Blood Count + Diffe flaviotialon 03-20-2022 Basophils/100 WBC (Bld) 1.3 % Normal 0.0 - 2.0 [facility] Work Phone: [phone] Comment on above: Performed By: #### C BCDF #### [address] [address] Erythrocyte distribution width (RBC) [Ratio] 12.8 % Normal 11.5 - 14.5 [facility] Work Phone: [phone] Comment on above: Reference Range: 11. 5 - 14.5 Performed By: #### C BCDF #### [address] [address] Hematocrit (Bld) [Volume fraction] 36.2 % Normal 36.0 - 46.0 [facility] Work Phone: [phone] Comment on above: Reference Range: 36. 0 - 46.0 Performed By: #### C BCDF #### [address] [address] Hemoglobin (Bld) [Mass/Vol] 12.4 g/dL Normal 12.0 - 16.0 [facility] Work Phone: [phone] Comment on above: Reference Range: 12. 0 - 16.0 Performed By: #### C BCDF #### [address] [address] Lymphocytes/100 WBC (Bld) 33.9 % Normal 13.0 - 44.0 [facility] Work Phone: [phone] Comment on above: Reference Range: 13. 0 - 44.0 Performed By: #### C BCDF #### [address] [address] MCHC (RBC) [Mass/Vol] 34.2 g/dL Normal 32.0 - 36.0 [facility] Work Phone: [phone] Comment on above: Reference Range: 32. 0 - 36.0 Performed By: #### C BCDF #### [address] [address] MCV (RBC) [Entitic vol] 82 fL Normal 80 - 100 [facility] Work Phone: Comment on above: Performed By: #### C BCDF #### [address] [address] Monocytes/100 WBC (Bld) 8.7 % Normal 2.0 - 10.0 [facility] Work Phone: [phone] Comment on above: Performed By: #### C BCDF #### [address] [address] Neutrophils/100 WBC (Bld) 42.3 % Normal 40.0 - 80.0 [facility] Work Phone: [phone] Comment on above: Reference Range: 40. 0 - 80.0 Performed By: #### C BCDF #### [address] [address] Platelets (Bld) [#/Vol] 291 10*3/uL Normal 150 - 450 [facility] Work Phone: [phone] Comment on above: Performed By: #### C BCDF #### [address] [address] WBC (Bld) [#/Vol] 5.1 10*3/uL Normal 4.4 - 11.3 [facility] Work Phone: [phone] Comment on above: Performed By: #### C BCDF #### [address] [address] RBC (Bld) [#/Vol] 4.42 {x10E12/L} See Below [facility] Work Phone: [phone] Comment on above: Reference Range: 4.0 0 - 5.20 Complete Blood Count + Differential 0.10 {x10E9/L} See Below [facility] Work Phone: [phone] Comment on above: Reference Range: 0.0 0 - 0.10 Complete Blood Count + Differential 0.70 {x10E9/L} See Below [facility] Work Phone: [phone] Comment on above: Reference Range: 0.0 0 - 0.70 Complete Blood Count + Differential 0.40 {x10E9/L} See Below [facility] Work Phone: Comment on above: Reference Range: 0.1 0 - 1.00 Complete Blood Count + Differential 1.70 {x10E9/L} See Below [facility] Work Phone: Comment on above: Reference Range: 1.2 0 - 4.80 Complete Blood Count + Differential 2.20 {x10E9/L} See Below [facility] Work Phone: Comment on above: Reference Range: 1.2 0 - 7.70 Percent differential counts (%) should be interpreted in the context of the absolute cell counts (cells/L). Complete Blood Count + Differential 13.8 % 0.0 - 6.0 [facility] Work Phone: FERRITINon 03-20-2022 FERRITIN 40 ug/L Normal 8 - 150 [facility] Comment on above: Performed By: #### F ERRI #### [facility] [address] [place] [address] Ferritin, Serumon 03-20-2022 Ferritin [Mass/Vol] 40 ug/L 8 - 150 [facility] Work Phone: IRON + TIBCon 03-20-2022 % SATURATION 24 % Low 25 - 45 [facility] Comment on above: Performed By: #### G ENLO #### [facility] [address] [place] [address] Iron [Mass/Vol] 102 ug/dL Normal 35 - 150 [facility] Work Phone: Comment on above: Performed By: #### G ENLO #### [facility] [address] [place] [address] TIBC 419 ug/dL Normal 240 - 445 [facility] Comment on above: Performed By: #### G ENLO #### [facility] [address] [place] [address] LIPID PANEL (CORONARY RISK 2 )on 03-20-2022 Cholesterol in VLDL [Mass/Vol] 8 mg/dL Normal 0 - 40 [facility] Comment on above: Performed By: #### G ENLO #### [facility] [address] [place] [address] NON-HDL CHOLESTEROL 96 mg/dL Normal 0 - 149 [facility] Comment on above: Result Comment: AGE DESIRABLE BORDERLINE HIGH HIGH VERY HIGH 0-19 Y 0 - 119 120 - 144 >/= 145 >/= 160 20-24 Y 0 - 149 150 - 189 >/= 190 ---- >24 Y 30 MG/DL ABOVE LDL CHOLESTEROL GOAL . Performed By: #### G ENLO #### [facility] [address] [place] [address] Laboratory - Chemistry and C hemistry - challengeon 03-20-2022 Albumin BCP dye [Mass/Vol] 4.4 g/dL 3.4 - 5.0 [facility] Work Phone: ALT With P-5'-P [Catalytic activity/Vol] 11 U/L 7 - 45 [facility] Work Phone: Comment on above: Patients treated wit h Sulfasalazine may generate falsely decreased results for ALT. AST With P-5'-P [Catalytic activity/Vol] 12 U/L 9 - 39 [facility] Work Phone: CO2 [Moles/Vol] 24 mmol/L 21 - 32 [facility] Work Phone: Iron binding capacity [Mass/Vol] 419 ug/dL 240 - 445 [facility] Work Phone: Lipid Panelon 03-20-2022 Cholesterol [Mass/Vol] 170 mg/dL Normal 0 - 199 [facility] Work Phone: Comment on [...] Performed By: #### G ENLO #### [facility] [address] [place] [address] Cholesterol in HDL [Mass/Vol] 74.0 mg/dL Normal [facility] Work Phone: Comment on above: [...] Performed By: #### G ENLO #### [facility] [address] [place] [address] Cholesterol in LDL [Mass/Vol] 88 mg/dL Normal 0 - 119 [facility] Work Phone: Comment on above: [...] Performed By: #### G ENLO #### [facility] [address] [place] [address] Cholesterol.total/Chol esterol in HDL [Mass ratio] 2.3 {ratio} Normal [facility] Work Phone: Comment on above: REF VALUESDESIRABLE < 3.4HIGH RISK > 5.0 Result Comment: REF VALUES DESIRABLE < 3.4 HIGH RISK > 5.0 Performed By: #### G ENLO #### [facility] [address] [place] [place] [address] Triglyceride [Mass/Vol] 41 mg/dL Normal 0 - 149 [facility] Work Phone: Comment on above: [...] to Metamizole dosing. Performed By: #### G JAYCOBO #### [facility] [address] [place] [address] Cholesterol non HDL [Mass/Vol] 96 mg/dL 0 - 149 [facility] Work Phone: Comment on above: AGE DESIRABLE BORDER LINE HIGH HIGH VERY HIGH 0-19 Y 0 - 119 120 - 144 >/= 145 >/= 160 20-24 Y 0 - 149 150 - 189 >/= 190 ---- >24 Y 30 MG/DL ABOVE LDL CHOLESTEROL GOAL. Lipid Panel 8 mg/dL 0 - 40 [facility] Work Phone: No Panel Informationon 03-20 24 % below low threshold 25 - 45 [facility] Work Phone: >[phone] >90 [facility] Work Phone: Comment on above: CALCULATIONS OF ANN-MARIE MATED GFR ARE PERFORMED USING THE 2020 CKD-EPI STUDY REFIT EQUATION WITHOUT THE RACE VARIABLE FOR THE IDMS-TRACEABLE CREATININE METHODS.https://jasn.asnjournals.org/content//A SN.3107551985 T4 - Free Thyroxine, Serumon 03-20-2022 Free T4 [Mass/Vol] 0.92 ng/dL See Below [facility] Work Phone: Comment on above: Reference Range: 0.6 1 - 1.12 Thyroxine Free testing is performed using different testing methodology at [facility] than at other [facility]. Direct result comparisons should only [...] THYROXINE,FREE 0.92 ng/dL Normal 0.61 - 1.12 [facility] Comment on above: Result Comment: Thyr oxine Free testing is performed using different testing methodology at [facility] than at [facility]. Direct result comparisons should only be [...] draw. Performed By: #### T 4FRE #### [address] [address] TSHon 03-20-2022 TSH Qn 0.05 m[IU]/L Low 0.44 - 3.98 [facility] Comment on above: Result Comment: TSH testing is performed using different testing methodology at [facility] than at [facility]. Direct result comparisons should only be made within the same method. Performed By: #### T SH2 #### [address] [address] Vitamin B12, Serumon 022 Cobalamin (Vitamin B12) [Mass/Vol] 368 pg/mL Normal 211 - 911 [facility] Work Phone: Comment on above: Performed By: #### V TB12 #### [address] [address] Cult, Genitalon 03-05-2022 Bacteria identified Aer cx Nom (Genital specimen) [facility] [address] [place] Work Phone: Tobacco Screening.on 022 Fall risk assessment a) No falls within the last year [facility] Work Phone: Tobacco use status CPHS b) No [facility] Work Phone: CORONAVIRUS 2019, SCREEN ASY MPTOMATICon 01-20-2022 SARS-CoV-2 (COVID-19) RNA JACLYN+probe Ql (Unsp spec) Not detected Normal Not Detected [facility] Comment on above: Result Comment: . This [...] patient management decisions. Fact sheet for providers: https://www.fda.gov/media/010733/download Fact sheet for patients: https://www.fda.gov/media/889284/download This test has received FDA Emergency Use Authorization (EUA) and has been verified by [facility] ([facility]). This test is only authorized for the duration of time that circumstances exist to justify the authorization of the emergency use of in vitro diagnostic tests for the detection of SARS-CoV-2 virus and/or diagnosis of COVID-19 infection under section 564(b)(1) of the Act, 21 U.S.C. 360bbb-3(b)(1), unless the authorization is terminated or revoked sooner. [facility] is certified under CLIA-88 as qualified to perform high complexity testing. Testing is performed in the [facility] laboratories located at [address] [place] [address]. Performed By: #### G ENLO #### [place] [address] Lab Specimen Source Nasal, Nasopharyngeal Normal [facility] Comment on above: Performed By: #### G ENLO #### [place] [address] Coronavirus 2019 RNA by PCR, Screening Asymptomticon 01-20-2022 Coronavirus 2019 RNA by PCR, Screening Asymptomtic Not detected Normal See Below [facility] Work Phone: Comment on above: SOURCE: Nasal, [...] make patient management decisions.Fact sheet for providers: https://www.fda.gov/media/785642/downloadFact sheet for patients: https://www.fda.gov/media/303503/downloadThis test has received FDA Emergency Use Authorization (EUA) and has been verified by [facility] ([facility]). This test is only authorized for the duration of time that circumstances exist to justify the authorization of the emergency use of in vitro diagnostic tests for the detection of SARS-CoV-2 virus and/or diagnosis of COVID-19 infection under section 564(b)(1) of the Act, 21 U.S.C. 360bbb-3(b)(1), unless the authorization is terminated or revoked sooner. [facility] is certified under CLIA-88 as qualified to perform high complexity testing. Testing is performed in the [facility] laboratories located at [address] [place] [address]. Covid 19 Resultson 2 SARS-CoV-2 (COVID-19) RNA [...] You may also be contacted by the [place] Department of Health to see if any of your close [...] or Naproxen (Aleve) can also be used. Ujsg-vmx-pboabyg cough and cold medicines can be used according to the instructions on the package. Some zmzf-fuz-vkbaesp medicines also contain acetaminophen. Make sure you [...] water are not available, use alcohol-based hand furnace firer. Avoid touching your eyes, nose, and mouth [...] 24 patricia (more content not included)... Normal [facility] Tobacco Screening.on 022 Fall risk assessment a) No falls within the last year [facility] Work Phone: Tobacco use status CP b) No [facility] Work Phone: Radiologyon 12-29-2021 XR Chest 2 Views Please click on the link to view the study images Normal [facility] Work Phone: XR Chest 2 Views Normal [facility] Work Phone: Tobacco Screening.on Adult depression screening assessment No [facility] Work Phone: Fall risk assessment a) No falls within the last year [facility] Work Phone: Tobacco use status CPHS b) No [facility] Work Phone: Complete Blood Count + Lucrecia chambers 11-15-2021 Basophils/100 WBC (Bld) 0.6 % 0.0 - 2.[address] Work Phone: Erythrocyte distribution width (RBC) [Ratio] 18.8 % above high threshold See Below [address] Work Phone: Comment on above: Reference Range: 11. 5 - 14.5 Hematocrit (Bld) [Volume fraction] 31.8 % below low threshold See Below [address] Work Phone: Comment on above: Reference Range: 36. 0 - 46.0 Hemoglobin (Bld) [Mass/Vol] 10.5 g/dL below low threshold See Below [address] Work Phone: Comment on above: Reference Range: 12. 0 - 16.0 Lymphocytes/100 WBC (Bld) 14.5 % See Below [address] Work Phone: Comment on above: Reference Range: 13. 0 - 44.0 MCHC (RBC) [Mass/Vol] 33.0 g/dL See Below [address] Work Phone: Comment on above: Reference Range: 32. 0 - 36.0 MCV (RBC) [Entitic vol] 86 fL 80 - [address] Work Phone: Monocytes/100 WBC (Bld) 7.7 % 2.0 - 10.[address] Work Phone: Neutrophils/100 WBC (Bld) 72.8 % See Below [address] Work Phone: Comment on above: Reference Range: 40. 0 - 80.0 Platelets (Bld) [#/Vol] 402 10*3/uL 150 - [address] Work Phone: RBC (Bld) [#/Vol] 3.72 {x10E12/L} below low threshold See Below [address] Work Phone: Comment on above: Reference Range: 4.0 0 - 5.20 WBC (Bld) [#/Vol] 8.4 10*3/uL 4.4 - 11.[address] Work Phone: Complete Blood Count + Differential 0.00 {x10E9/L} See Below [address] Work Phone: Comment on above: Reference Range: 0.0 0 - 0.10 Complete Blood Count + Differential 0.40 {x10E9/L} See Below [address] Work Phone: Comment on above: Reference Range: 0.0 0 - 0.70 Complete Blood Count + Differential 0.60 {x10E9/L} See Below [address] Work Phone: Comment on above: Reference Range: 0.1 0 - 1.00 Complete Blood Count + Differential 1.20 {x10E9/L} See Below [address] Work Phone: Comment on above: Reference Range: 1.2 0 - 4.80 Complete Blood Count + Differential 6.20 {x10E9/L} See Below [address] Work Phone: Comment on above: Reference Range: 1.2 0 - 7.70 Percent differential counts (%) should be interpreted in the context of the absolute cell counts (cells/L). Complete Blood Count + Differential 4.4 % 0.0 - 6.[address] Work Phone: Complete Blood Count + Differential 0.1 {/100_WBC} [id number] Work Phone: Coronavirus 2019 RNA by PCR, Symptomaticon 11-15-2021 Date and time of symptom onset [id number]-EHMQO-Npq[address] Work Phone: Coronavirus 2019 RNA by PCR, Symptomatic Not detected Normal See Below [address] Work Phone: Comment on above: SOURCE: Nasal, Nasop haryngealReference Range: Not Detected.This test has received FDA Emergency Use Authorization (EUA) and has been verified by [facility]. This test is only authorized for the duration of time that circumstances exist to justify the authorization of the emergency use of in vitro diagnostic tests for the detection of SARS-CoV-2 virus and/or diagnosis of COVID-19 infection under section 564(b)(1) of the Act, 21 U.S.C. 360bbb-3(b)(1), unless the authorization is terminated or revoked sooner. [facility] is certified under CLIA-88 as qualified to perform high complexity testing. Testing is performed in the [facility] laboratory located at [address] [place] [address].SARS-CoV-2/Flu/RSV Multiplex Test: Fact sheet for providers: https://www.fda.gov/media/557062/downloadFact sheet for patients: https://www.fda.gov/media/159975/download Laboratory - Chemistry and C hemistry - challengeon 11-15-2021 Anion gap [Moles/Vol] 13 mmol/L 10 - 20 MG- OBGYN[address] Work Phone: Calcium [Mass/Vol] 8.9 mg/dL 8.6 - 10.3 MG-OBG YN[address] Work Phone: Chloride [Moles/Vol] 106 mmol/L 98 - 107 MG-O BGYN[address] Work Phone: CO2 [Moles/Vol] 23 mmol/L 21 - 32 MG-OBGYN[address] Work Phone: Creatinine [Mass/Vol] 0.59 mg/dL See Below - OBGYN[address] Work Phone: Comment on above: Reference Range: 0.5 0 - 1.05 Glucose [Mass/Vol] 83 mg/dL 74 - 99 MG-OBG N[address] Work Phone: Potassium [Moles/Vol] 3.8 mmol/L 3.5 - 5.3 MG- OBGYN[address] Work Phone: Sodium [Moles/Vol] 138 mmol/L 136 - 145 MG-OBG [address] Work Phone: Urea nitrogen [Mass/Vol] 14 mg/dL 6 - 23 JE-VWCMR-Dhq[address] Work Phone: Laboratory - Coagulationon 0 11-15-2021 INR Coag (PPP) [Relative time] 1.1 {INR} 0.9 - 1.1 [id number]-Blu[address] Work Phone: PT Coag (PPP) [Time] 12.4 s 9.8 - 13.4 MG-O BGYN[address] Work Phone: Comment on above: Note new reference kiya surjit as of 09/12/2021 at 10:00am. No Panel Informationon 11-15 >90 >90 BP-FGNKN-Wvi[address] Work Phone: Comment on above: CALCULATIONS OF ANN-MARIE MATED GFR ARE PERFORMED USING THE 2020 CKD-EPI STUDY REFIT EQUATION WITHOUT THE RACE VARIABLE FOR THE IDMS-TRACEABLE CREATININE METHODS.https://jasn.asnjournals.org/content//A SN.6969438497 http://UHMUSEPRDAIO0 1:80 80/musescripts/museweb.d ll?RetrieveTestByDateTim e?KmtktbcJI=[id number]&Da te=11-15-2021&Time=09%3a 40%3a00%3a00&TestType=EC G&Site=14&OutputType=PDF &Ext=PDF NV-IPIKO-[facility] [address] Work Phone: Please see physicia n note for formal interpretation confirmed by Scribe PO-VOTLJ-Isz [facility] [address] Work Phone: Normal DY-BANKF-Eur [facility] [facility] Work Phone: [phone] EQ-HDXVJ-Hig [facility] [address] [facility] Work Phone: [phone] RO-WAGSD-Yya [facility] [facility] Work Phone: [phone] KI-DFIKB-Ukj [facility] Work Phone: [phone] NQ-QMCLK-Wad [facility] Work Phone: [phone] CX-GCPBD-Dwb [facility] Work Phone: [phone] BO-CKGLV-Qpl [facility] Work Phone: [phone] SY-VXSGO-Ngf [facility] Work Phone: [phone] QH-OJEEE-Qxy [facility] Work Phone: [phone] EW-ELVNW-Vrp [facility] Work Phone: [phone] PA-RAFUR-Gmz [facility] Work Phone: [phone] AS-YJGVF-Gfg [facility] Work Phone: [phone] FI-YMIEI-Aem [facility] Work Phone: [phone] SJ-YAZNA-Gfb [facility] Work Phone: TH CT Angio Chest For PEon 0 11-15-[address] Angio Chest For PE Normal SP-TQFDW-Iqy [facility] Work Phone: [facility] Venous Duplex Ultra sound for DVTon 11-15-2021 V[facility] LAB Venous Duplex Ultrasound for DVT YM-YDXHA-Lur [facility] Work Phone: /Maternal Screenon 10-15 Hemoglobin F Ql (Bld) Canceled [facility] Work Phone: [phone] Hemoglobin F Ql (Bld) Negative [facility] Work Phone: [phone] Laboratory - Hematology and Cell countson 11-08-2021 Erythrocyte distribution width (RBC) [Ratio] 19.8 % above high threshold See Below [facility] Work Phone: [phone] Comment on above: Reference Range: 11. 5 - 14.5 Hematocrit (Bld) [Volume fraction] 29.5 % below low threshold See Below [facility] Work Phone: [phone] Comment on above: Reference Range: 36. 0 - 46.0 Hemoglobin (Bld) [Mass/Vol] 9.9 g/dL below low threshold See Below [facility] Work Phone: [phone] Comment on above: Reference Range: 12. 0 - 16.0 MCHC (RBC) [Mass/Vol] 33.7 g/dL See Below [facility] Work Phone: [phone] Comment on above: Reference Range: 32. 0 - 36.0 MCV (RBC) [Entitic vol] 85 fL 80 - 100 [facility] Work Phone: [phone] Platelets (Bld) [#/Vol] 166 10*3/uL 150 - 450 [facility] Work Phone: [phone] RBC (Bld) [#/Vol] 3.49 {x10E12/L} below low threshold See Below [facility] Work Phone: [phone] Comment on above: Reference Range: 4.0 0 - 5.20 WBC (Bld) [#/Vol] 16.1 10*3/uL above high threshold 4.4 - 11.3 [facility] Work Phone: [phone] Rhogamon 11-08-2021 Rhogam ORDER RECD [facility] Work Phone: [phone] Rhogam ORDER RECD [facility] Work Phone: [phone] Laboratory - Blood bankon ABO group Nom (Bld) [facility] Work Phone: [phone] Blood group antibody screen Ql Negative [facility] Work Phone: [phone] Rh immune globulin screen (Bld) [Interp] Negative [facility] Work Phone: [phone] Comment on above: Review your Rh Negat anna female patient's potential need for Rh Immune Globulin (RhIg)administration. Laboratory - Hematology and Cell countson 11-07-2021 Erythrocyte distribution width (RBC) [Ratio] 19.7 % above high threshold See Below [facility] Work Phone: [phone] Comment on above: Reference Range: 11. 5 - 14.5 Hematocrit (Bld) [Volume fraction] 36.1 % See Below [facility] Work Phone: [phone] Comment on above: Reference Range: 36. 0 - 46.0 Hemoglobin (Bld) [Mass/Vol] 12.0 g/dL See Below [facility] Work Phone: [phone] Comment on above: Reference Range: 12. 0 - 16.0 MCHC (RBC) [Mass/Vol] 33.3 g/dL See Below [facility] Work Phone: [phone] Comment on above: Reference Range: 32. 0 - 36.0 MCV (RBC) [Entitic vol] 85 fL 80 - 100 [facility] Work Phone: [phone] Platelets (Bld) [#/Vol] 203 10*3/uL 150 - 450 [facility] Work Phone: [phone] RBC (Bld) [#/Vol] 4.26 {x10E12/L} See Below [facility] Work Phone: [phone] Comment on above: Reference Range: 4.0 0 - 5.20 WBC (Bld) [#/Vol] 7.8 10*3/uL 4.4 - 11.3 [facility] Work Phone: [phone] Panel Informationon 11-07 ORDER RECD [facility] Work Phone: [phone] SYPHILIS SCREENING WITH REFL EXon 11-07-2021 T. pallidum IgG+IgM IA Ql (S) Non-Reactive See Below [facility] Work Phone: [phone] Comment on above: SOURCE: Reference Ra nge: NONREACTIVENo significant level of Treponema pallidum antibody detected. Repeat testing in 2 to 4 weeks may be considered if early infection or incubating syphilis infection is suspected. PREMATURE RUPTURE OF MEMBRAN Freddie 10-18-2021 PREMATURE RUPTURE OF MEMBRANE Negative Negative [facility] Work Phone: [phone] No Panel Informationon 09-[address] Work Phone: Ferritin, Serumon 09-21-2021 Ferritin [Mass/Vol] 17 ug/L 8 - [address] Work Phone: Folate, Serumon 09-21-2021 Folate [Mass/Vol] 20.2 ng/mL >5.[address] Work Phone: Comment on above: Low <3.4Borderline 3 .4-5.0Normal >5.0. Biotin interference may cause falsely elevated results. Patients taking a Biotin dose of up to 5 mg/day should refrain from taking Biotin for 24 hours before sample collection. Providers may contact their local laboratory for further information. Laboratory - Blood bankon ABO group Nom (Bld) O [address] Work Phone: Rh immune globulin screen (Bld) [Interp] Negative [address] Work Phone: Comment on above: Review your Rh Negat anna female patient's potential need for Rh Immune Globulin (RhIg)administration. ABO group Nom (Bld) O [address] Work Phone: Blood group antibody investigation (P/RBC) [Interp] ANTI-D ACQUIRED [address] Work Phone: Blood group antibody screen Ql Positive [address] Work Phone: Comment on above: History of POSITIVE Antibody Screen-current specimen required within the 3 days prior to transfusion. Rh immune globulin screen (Bld) [Interp] Negative [address] Work Phone: Comment on above: Review your Rh Negat anna female patient's potential need for Rh Immune Globulin (RhIg)administration. Laboratory - Chemistry and C hemistry - challengeon 09-21-2021 Iron [Mass/Vol] 40 ug/dL 35 - [address] Work Phone: Iron binding capacity [Mass/Vol] >490 Abnormal 240 - [address] Work Phone: Comment on above: Interpret results wi th caution.One or more analytes used in this calculation is outside of the analytical measurement range. Laboratory - Hematology and Cell countson 09-21-2021 Erythrocyte distribution width (RBC) [Ratio] 15.7 % above high threshold See Below [address] Work Phone: Comment on above: Reference Range: 11. 5 - 14.5 Hematocrit (Bld) [Volume fraction] 31.8 % below low threshold See Below [address] Work Phone: Comment on above: Reference Range: 36. 0 - 46.0 Hemoglobin (Bld) [Mass/Vol] 10.2 g/dL below low threshold See Below QY-QBHDJ-Imp[address] Work Phone: Comment on above: Reference Range: 12. 0 - 16.0 MCHC (RBC) [Mass/Vol] 32.1 g/dL See Below [facility] [place] [place] OBGYN[address] Work Phone: Comment on above: Reference Range: 32. 0 - 36.0 MCV (RBC) [Entitic vol] 87 fL 80 - 100 OP-PUWNS-Rcw[address] Work Phone: Platelets (Bld) [#/Vol] 254 10*3/uL 150 - 450 [id number]-Clv[address] Work Phone: RBC (Bld) [#/Vol] 3.67 {x10E12/L} below low threshold See Below YG-CLRIS-Oox[address] Work Phone: Comment on above: Reference Range: 4.0 0 - 5.20 WBC (Bld) [#/Vol] 12.3 10*3/uL above high threshold 4.4 - 11.3 KS-TMANB-Ypx[address] Work Phone: Laboratory - Microbiology an d Antimicrobial susceptibilityon 09-21-2021 Bacteria identified Aer cx Nom (Genital specimen) AU-NAOPW-Szl[address] Work Phone: No Panel Informationon 09-21 NOT CALC. 25 - 45 OX-NMTAH-Gyr[address] Work Phone: Comment on above: One or more analytes used in this calculation is outside of the analytical measurement range.Calculation cannot be performed. 0.0 {/100_WBC} 0.0-0.0 MG-OBGYN-[address] Work Phone: ORDER RECD TX-WTFVE-Pmh[address] Work Phone: ORDER RECD GB-JBKWC-Foc[address] Work Phone: Path Review Immunohematology on 09-21-2021 Path Review Immunohematology X.THANG [address] Work Phone: Comment on above: By [...] IgG+IgM IA Ql (S) Non-Reactive See Below [address] Work Phone: Comment on above: SOURCE: Reference Ra nge: NONREACTIVENo significant level of Treponema pallidum antibody detected. Repeat testing in 2 to 4 weeks may be considered if early infection or incubating syphilis infection is suspected. Vitamin B12, Serumon 021 Cobalamin (Vitamin B12) [Mass/Vol] 291 pg/mL 211 - [address] Work Phone: Coronavirus 2019 RNA by PCR, Screening Asymptomticon 09-20-2021 Coronavirus 2019 RNA by PCR, Screening Asymptomtic Not detected Normal See Below [facility] [place] Work Phone: Comment on above: SOURCE: Nasal, Nasop haryngealReference Range: Not Detected.This test has received FDA Emergency Use Authorization (EUA) and has been verified by [facility]. This test is only authorized for the duration of time that circumstances exist to justify the authorization of the emergency use of in vitro diagnostic tests for the detection of SARS-CoV-2 virus and/or diagnosis of COVID-19 infection under section 564(b)(1) of the Act, 21 U.S.C. 360bbb-3(b)(1), unless the authorization is terminated or revoked sooner. [facility] is certified under CLIA-88 as qualified to perform high complexity testing. Testing is performed in the [facility] laboratory located at [address] [place] [address].SARS-CoV-2/Flu/RSV Multiplex Test: Fact sheet for providers: https://www.fda.gov/media/748102/downloadFact sheet for patients: https://www.fda.gov/media/061914/download GC + Chlamydia By Amplified Detectionon 09-20-2021 C. trachomatis rRNA JACLYN+probe Ql (Unsp spec) Not detected See Below [facility] Work Phone: [phone] Comment on above: Reference Range: NOT DETECTED N. gonorrhoeae rRNA JACLYN+probe Ql (Unsp spec) Not detected See Below [facility] Work Phone: [phone] Comment on above: SOURCE: UrineReferen ce Range: NOT DETECTED Laboratory - Blood bankon ABO group Nom (Bld) [facility] Work Phone: [phone] Blood group antibody investigation (P/RBC) [Interp] ANTI-D [facility] Work Phone: [phone] Comment on above: ANTI-D DUE TO RHOGAM Blood group antibody screen Ql Positive [facility] Work Phone: [phone] Rh immune globulin screen (Bld) [Interp] Negative [facility] Work Phone: [phone] Comment on above: Review your Rh Negat anna female patient's potential need for Rh Immune Globulin (RhIg)administration. Laboratory - Hematology and Cell countson 09-20-2021 Erythrocyte distribution width (RBC) [Ratio] 16.8 % above high threshold See Below [facility] Work Phone: [phone] Comment on above: Reference Range: 11. 5 - 14.5 Hematocrit (Bld) [Volume fraction] 30.6 % below low threshold See Below [facility] Work Phone: [phone] Comment on above: Reference Range: 36. 0 - 46.0 Hemoglobin (Bld) [Mass/Vol] 9.9 g/dL below low threshold See Below [facility] Work Phone: [phone] Comment on above: Reference Range: 12. 0 - 16.0 MCHC (RBC) [Mass/Vol] 32.4 g/dL See Below [facility] Work Phone: [phone] Comment on above: Reference Range: 32. 0 - 36.0 MCV (RBC) [Entitic vol] 83 fL 80 - 100 [facility] Work Phone: [phone] Platelets (Bld) [#/Vol] 266 10*3/uL 150 - 450 [facility] Work Phone: [phone] RBC (Bld) [#/Vol] 3.71 {x10E12/L} below low threshold See Below [facility] Work Phone: [phone] Comment on above: Reference Range: 4.0 0 - 5.20 WBC (Bld) [#/Vol] 12.4 10*3/uL above high threshold 4.4 - 11.3 [facility] Work Phone: [phone] Urinalysison 09-20-2021 Color (U) Straw See Below [facility] Work Phone: [phone] Comment on above: Reference Range: STR AW,YELLOW Glucose Ql (U) Negative NEGATIVE [facility] Work Phone: [phone] Ketones Ql (U) Negative NEGATIVE [facility] Work Phone: [phone] Leukocyte esterase Test strip Ql (U) Negative NEGATIVE [facility] Work Phone: [phone] pH (U) 7.0 [pH] 5.0 - 8.0 [facility] Work Phone: [phone] Protein (U) [Mass/Vol] Negative NEGATIVE [facility] Work Phone: [phone] RBC (U) [#/Vol] MODERATE(2+) Abnormal NEGATIVE [facility] Work Phone: [phone] Specific gravity (U) [Rel density] 1.009 1 See Below [facility] Work Phone: [phone] Comment on above: Reference Range: 1.0 05 - 1.035 Urinalysis Negative NEGATIVE [facility] Work Phone: [phone] Urinalysis <2.0 0.0 - 1.9 [facility] Work Phone: [phone] Urinalysis CLEAR CLEAR [facility] Work Phone: [phone] Urinalysis, Microscopicon Urinalysis, Microscopic 1+ [facility] Work Phone: [phone] Urinalysis, Microscopic 1 {/HPF} 0-5 [facility] Work Phone: [phone] Urinalysis, Microscopic None 0-5 [facility] Work Phone: [phone] Panel Informationon 08-24 SEE BELOW [facility] Work Phone: [phone] Comment on above: Diagnostics with glu cose loading dose of 100 g. Reference values from [employer]. Diabetes Care 2015;38(Suppl.1):S8-S16. 90 mg/dL <140 [facility] Work Phone: [phone] mg/dL <155 [facility] [place] Work Phone: [phone] mg/dL <180 [facility] Work Phone: [phone] 77 mg/dL <95 [facility] Work Phone: [phone] Rhogamon 08-22-2021 Rhogam Canceled [facility] Work Phone: [phone] Glucose, 1 Hour Screen, Preg nancyon 08-21-2021 Glucose 1 Hr post 50 g glucose PO [Mass/Vol] 135 mg/dL Abnormal <135 [facility] Work Phone: [phone] Comment on above: Diagnostic value wit h glucose loading dose of 50 g. Reference values from [employer]. Diabetes Care 2015;38(Suppl.1):S8-S16 Laboratory - Blood bankon ABO group Nom (Bld) [facility] Work Phone: [phone] Blood group antibody screen Ql Negative [facility] Work Phone: [phone] Rh immune globulin screen (Bld) [Interp] Negative [facility] Work Phone: [phone] Comment on above: Review your Rh Negat anna female patient's potential need for Rh Immune Globulin (RhIg)administration. ABO group Nom (Bld) Canceled [facility] Work Phone: [phone] Blood group antibody screen Ql Canceled [facility] Work Phone: [phone] Rh immune globulin screen (Bld) [Interp] Canceled [facility] Work Phone: [phone] Laboratory - Hematology and Cell countson 08-21-2021 Erythrocyte distribution width (RBC) [Ratio] 13.7 % See Below [facility] Work Phone: [phone] Comment on above: Reference Range: 11. 5 - 14.5 Hematocrit (Bld) [Volume fraction] 28.8 % below low threshold See Below [facility] Work Phone: [phone] Comment on above: Reference Range: 36. 0 - 46.0 Hemoglobin (Bld) [Mass/Vol] 9.5 g/dL below low threshold See Below [facility] [place] Work Phone: [phone] Comment on above: Reference Range: 12. 0 - 16.0 MCHC (RBC) [Mass/Vol] 33.1 g/dL See Below [facility] [place] Work Phone: [phone] Comment on above: Reference Range: 32. 0 - 36.0 MCV (RBC) [Entitic vol] 83 fL 80 - 100 [facility] [place] Work Phone: [phone] Platelets (Bld) [#/Vol] 286 10*3/uL 150 - 450 [facility] [place] Work Phone: [phone] RBC (Bld) [#/Vol] 3.46 {x10E12/L} below low threshold See Below [facility] [place] Work Phone: [phone] Comment on above: Reference Range: 4.0 0 - 5.20 WBC (Bld) [#/Vol] 8.9 10*3/uL 4.4 - 11.3 [facility] Work Phone: [phone] Rhogamon 08-21-2021 Rhogam ORDER RECD [facility] [place] Work Phone: [phone] Rhogam ORDER RECD [facility] [place] Work Phone: [phone] Laboratory - Chemistry and C hemistry - challengeon 07-20-2021 Albumin BCP dye [Mass/Vol] 3.4 g/dL 3.4 - 5.0 [facility] [place] Work Phone: [phone] ALP [Catalytic activity/Vol] 69 U/L 33 - 110 [facility] [place] Work Phone: [phone] ALT With P-5'-P [Catalytic activity/Vol] 5 U/L below low threshold 7 - 45 [facility] Work Phone: [phone] Comment on above: Patients treated wit h Sulfasalazine may generate falsely decreased results for ALT. Anion gap [Moles/Vol] 12 mmol/L 10 - 20 [facility] [place] Work Phone: [phone] AST With P-5'-P [Catalytic activity/Vol] 11 U/L 9 - 39 [facility] [place] Work Phone: [phone] Bilirubin [Mass/Vol] 0.3 mg/dL 0.0 - 1.2 [facility] [place] Work Phone: [phone] Calcium [Mass/Vol] 8.0 mg/dL below low threshold 8.6 - 10.3 [facility] Work Phone: [phone] Chloride [Moles/Vol] 106 mmol/L 98 - 107 [facility] Work Phone: [phone] CO2 [Moles/Vol] 21 mmol/L 21 - 32 [facility] Work Phone: [phone] Creatinine [Mass/Vol] 0.51 mg/dL See Below [facility] Work Phone: [phone] Comment on above: Reference Range: 0.5 0 - 1.05 Glucose [Mass/Vol] 96 mg/dL 74 - 99 [facility] Work Phone: [phone] Potassium [Moles/Vol] 3.7 mmol/L 3.5 - 5.3 [facility] [place] Work Phone: [phone] Protein [Mass/Vol] 6.5 g/dL 6.4 - 8.2 [facility] [address] [place] Work Phone: [phone] Sodium [Moles/Vol] 135 mmol/L below low threshold 136 - 145 [facility] [place] Work Phone: [phone] Urea nitrogen [Mass/Vol] 11 mg/dL 6 - 23 [facility] [place] Work Phone: [phone] Panel Informationon 07-20 >60 >60 [facility] [place] Work Phone: Comment on above: CALCULATIONS OF ANN-MARIE MATED GFR ARE PERFORMED USING THE MDRD STUDY EQUATION FOR THE IDMS-TRACEABLE CREATININE METHODS. CLIN CHEM 2007;53:766-72 [facility] Venous Duplex Ultra sound for DVTon 07-20-2021 [facility] Venous Duplex Ultrasound for DVT [facility] Work Phone: No Panel Informationon 06-26 Normal [facility] Work Phone: Please click on the link to view the study images Normal [facility] Work Phone: Coronavirus 2019 RNA by PCR, Symptomaticon 06-15-2021 Date and time of symptom onset [id number] [facility] Work Phone: Coronavirus 2019 RNA by PCR, Symptomatic Detected Abnormal See Below [facility] Work Phone: Comment on above: SOURCE: Nasal, [...] make patient management decisions.Fact sheet for providers: https://www.fda.gov/media/295690/downloadFact sheet for patients: https://www.fda.gov/media/383733/downloadThis test has received FDA Emergency Use Authorization (EUA) and has been verified by [facility] ([facility]). This test is only authorized for the duration of time that circumstances exist to justify the authorization of the emergency use of in vitro diagnostic tests for the detection of SARS-CoV-2 virus and/or diagnosis of COVID-19 infection under section 564(b)(1) of the Act, 21 U.S.C. 360bbb-3(b)(1), unless the authorization is terminated or revoked sooner. [facility] is certified under CLIA-88 as qualified to perform high complexity testing. Testing is performed in the [facility] laboratories located at [address] [place] [address]. Cult, Urineon 05-01-2021 Bacteria identified Cx Nom (U) [facility] [address] [place] Work Phone: GC + Chlamydia By Amplified Detectionon 05-01-2021 C. trachomatis rRNA JACLYN+probe Ql (Unsp spec) Negative Negative [facility] [address] Work Phone: Comment on above: The APTIMA Combo 2 a ssay is FDA-approved for Chlamydia trachomatis and Neisseria gonorrhoeae testing on female endocervical and vaginal swabs, ThinPrep liquid pap samples, male urine samples and urethral swabs. Performance characteristics for Chlamydia trachomatis and Neisseria gonorrhoeae testing on specific sul-KOG-xtwjcrzp sample types (female urine samples) have been validated by [facility]. This laboratory is certified by CLIA to perform high complexity testing. Samples from all other sites are not validated for this method. N. gonorrhoeae rRNA JACLYN+probe Ql (Unsp spec) Negative Negative [facility] [place] [address] [facility] Work Phone: Comment on above: SOURCE: Urine The AP AUREA Combo 2 assay is FDA-approved for Chlamydia trachomatis and Neisseria gonorrhoeae testing on female endocervical and vaginal swabs, ThinPrep liquid pap samples, male urine samples and urethral swabs. Performance characteristics for Chlamydia trachomatis and Neisseria gonorrhoeae testing on specific yms-IKL-etborulo sample types (female urine samples) have been validated by [facility]. This laboratory is certified by CLIA to perform high complexity testing. Samples from all other sites are not validated for this method. HIV 1/2 ANTIGEN/ANTIBODY SCR EEN WITH REFLEX TO CONFIRMATIONon 05-01-2021 HIV 1+2 Ab Qn (S) Non-Reactive See Below [facility] [address] Work Phone: [phone] Comment on above: SOURCE: Reference Ra nge: NONREACTIVE HIV Ag/Ab screen is performed using the Siemens Genabilityll6Scan HIV Ag/Ab Combo assay which detects the presence of HIV p24 antigen as well as antibodies to HIV-1 (Group M and O) and HIV-2..No laboratory evidence of HIV infection. If acute HIV infection is suspected, consider testing for HIV RNA by PCR (viral load). Hepatitis B Surface Antigeno n 05-01-2021 Hepatitis B Surface Antigen Non-Reactive See Below [facility] [address] [facility] Work Phone: [phone] Comment on above: SOURCE: Reference Ra nge: NONREACTIVE Biotin interference may cause falsely decreased results. Patients taking a Biotin dose of up to 5 mg/day should refrain from taking Biotin for 24 hours before sample collection. Providers may contact their local laboratory for further information. SOURCE: Reference Ra nge: NONREACTIVE Results from patients taking biotin supplements or receiving high-dose biotin therapy should be interpreted with caution due to possible interference with this test. Providers may contact their local laboratory for further information. Laboratory - Blood bankon ABO group Nom (Bld) O [facility] [address] [place] Work Phone: [phone] Blood group antibody screen Ql Negative [address] Work Phone: [phone] Rh immune globulin screen (Bld) [Interp] Negative [place] [address] [place] Work Phone: [phone] Comment on above: Review your Rh Negat anna female patient's potential need for Rh Immune Globulin (RhIg)administration. Laboratory - Cytologyon 04-13 Cytology report Cyto stain.thin prep Doc (Cvx/Vag) [address] Work Phone: [phone] Laboratory - Hematology and Cell countson 05-01-2021 Erythrocyte distribution width (RBC) [Ratio] 13.6 % See Below [address] Work Phone: [phone] Comment on above: Reference Range: 11. 5 - 14.5 Hematocrit (Bld) [Volume fraction] 33.6 % below low threshold See Below [facility] Work Phone: [phone] Comment on above: Reference Range: 36. 0 - 46.0 Hemoglobin (Bld) [Mass/Vol] 11.5 g/dL below low threshold See Below [facility] [employer] Work Phone: [phone] Comment on above: Reference Range: 12. 0 - 16.0 MCHC (RBC) [Mass/Vol] 34.3 g/dL See Below [facility] Work Phone: [phone] Comment on above: Reference Range: 32. 0 - 36.0 MCV (RBC) [Entitic vol] 87 fL 80 - 100 [facility] Work Phone: [phone] Platelets (Bld) [#/Vol] 277 10*3/uL 150 - 450 [facility] [employer] Work Phone: [phone] RBC (Bld) [#/Vol] 3.86 {x10E12/L} below low threshold See Below [facility] Work Phone: [phone] Comment on above: Reference Range: 4.0 0 - 5.20 WBC (Bld) [#/Vol] 8.3 10*3/uL 4.4 - 11.3 [facility] [employer] Work Phone: [phone] Panel Informationon 05-01 NONE [facility] [employer] Work Phone: [phone] Rubella IgG Antibodyon 05-01 Rubella virus IgG IA Ql Positive [facility] [place] [address] [facility] Work Phone: [phone] Comment on above: SOURCE: INTERPRETATI VE COMMENT [...] (S) Non-Reactive See Below [facility] Work Phone: Comment on above: SOURCE: Reference Ra nge: NONREACTIVENo significant level of Treponema pallidum antibody detected. Repeat testing in 2 to 4 weeks may be considered if early infection or incubating syphilis infection is suspected. Tobacco Screening.on 021 Fall risk assessment a) No falls within the last year [facility] Work Phone: Tobacco use status CPHS b) No [facility] Work Phone: HCG, [place] [address] m[IU]/mL Abnormal [facility] Work Phone: Comment on above: Low-level positive [...] HCG measurement is performed using the Ehsan Ramon Access Immunoassay which detects intact HCG and free beta HCG subunit. This test is not indicated for use as a tumor marker. HCG testing is performed using a different test methodology at [facility] than other [facility]. Direct result comparison should only be made within the same method. REF VALUESNON FEMALE <5MALES <5 HCG, [place] [address] m[IU]/mL Abnormal [facility] Work Phone: Comment on above: Low-level positive [...] HCG measurement is performed using the Ehsan Waddy Access Immunoassay which detects intact HCG and free beta HCG subunit. This test is not indicated for use as a tumor marker. HCG testing is performed using a different test methodology at [facility] than other [facility]. Direct result comparison should only be made within the same method. REF VALUESNON FEMALE <5MALES <5 IO HCG, Urine Test on 03-20-2021 HCG ( test) Ql (U) Positive [facility] Work Phone: [phone] LMPon 03-20-2021 Last menstrual period start date 13Jan2021 [facility] Work Phone: [phone] Anti-Thyroglobulin ABon 02-0 Thyroglobulin Ab Qn 22.7 {IU/mL} above high threshold 0.0-4.0 [facility] Work Phone: Comment on above: INTERPRETIVE INFORMA TION: Thyroglobulin Antibody A value of 4.0 IU/mL or less indicates a negative result for thyroglobulin antibodies.The Thyroglobulin Antibody assay is being performed using the Ehsan Waddy Access DxI method.Performed By: [employer] [place] [id number] Director: Michelle Jo MD Ordering Provider: Loren SAWYER [id number] MISCELLANEOUS TESTon 021 MISCELLANEOUS TEST thyroid cascade profile [facility] Work Phone: Comment on above: Ordering Provider: Loren SAWYER [address] MISCELLANEOUS TEST SEE BELOW [facility] Work Phone: Comment on above: Thyroid Medimont Prof ile TEST NAME RESULT UNITS REFERENCE INTERVALTSH 1.660 uIU/mL 0.450-4.500 No apparent thyroid disorder. Additional testing not indicated. Inrare instances, Secondary Hypothyroidism as well as SubclinicalHypothyroidism have been reported in some patients with normal TSHvalues. TEST PERFORMED AT: [employer] [id number] Ordering Provider: Loren SAWYER [address] Thyroidon 11-16-2020 TSH Qn 1.61 {mIU/L} See Below [facility] Work Phone: Comment on above: Reference Range: 0.4 4 - 3.98 TSH testing is performed using different testing methodology at [facility] than at [facility]. Direct result comparisons should only be made within the same method. Thyroxine, Serum (T4)on T4 [Mass/Vol] 11.0 ug/dL 4.5 - 11.1 [facility] Work Phone: Comment on above: Ordering Provider: Loren SAWYER [address] Triiodothyronine, Level (T3) on 11-16-2020 T3 [Mass/Vol] 156 ng/dL 80 - 210 [facility] Work Phone: Comment on above: Ordering Provider: Loren SAWYER [address] CBCon 10-31-2020 ABSOLUTE BAS 0.1 10*3/uL Normal 0.0-0.2 [facility] Comment on above: Performed By: #### D DIMER, CHEM7F, ACBC #### Testing performed at [address] [address] ABSOLUTE EOS 0.10 10*3/uL Normal 0.0-0.7 [facility] Comment on above: Performed By: #### D DIMER, CHEM7F, ACBC #### Testing performed at [address] [address] ABSOLUTE NEUTROPHIL COUNT 4.0 10*3/uL Normal 1.4-6.5 [facility] Comment on above: Performed By: #### D DIMER, CHEM7F, ACBC #### Testing performed at [address] [address] Basophils/100 WBC (Bld) 1.1 % Normal 0.0-2.0 [facility] Comment on above: Performed By: #### D DIMER, CHEM7F, ACBC #### Testing performed at [address] [address] DTYPE AUTO DIFF Normal [facility] Comment on above: Performed By: #### D DIMER, CHEM7F, ACBC #### Testing performed at [address] [address] Eosinophils/100 WBC (Bld) 1.3 % Normal 0.0-11.0 [facility] Comment on above: Performed By: #### D DIMER, CHEM7F, ACBC #### Testing performed at [address] [address] Lymphocytes (Bld) [#/Vol] 1.10 10*3/uL Low 1.2-3.4 [facility] Comment on above: Performed By: #### D DIMER, CHEM7F, ACBC #### Testing performed at [address] [address] Lymphocytes/100 WBC (Bld) 19.2 % Low 20.0-55.0 [facility] Comment on above: Performed By: #### D DIMER, CHEM7F, ACBC #### Testing performed at [address] [address] Monocytes (Bld) [#/Vol] 0.4 10*3/uL Normal 0.0-0.7 [facility] Comment on above: Performed By: #### D DIMER, CHEM7F, ACBC #### Testing performed at [address] [address] Monocytes/100 WBC (Bld) 7.6 % Normal 0.0-10.0 [facility] Comment on above: Performed By: #### D DIMER, CHEM7F, ACBC #### Testing performed at [address] [address] Neutrophils/100 WBC (Bld) 70.8 % Normal 37.0-75.0 [facility] Comment on above: Performed By: #### D DIMER, CHEM7F, ACBC #### Testing performed at [address] [address] Erythrocyte distribution width (RBC) [Ratio] 13.5 % Normal 11.5-14.5 [facility] Comment on above: Performed By: #### D DIMER CHEM7F ACBC #### Testing performed at [address] [address] Hematocrit (Bld) [Volume fraction] 37.4 % Normal 36.0-48.0 [facility] Comment on above: Performed By: #### D DIMER CHEM7F ACBC #### Testing performed at [address] [address] Hemoglobin (Bld) [Mass/Vol] 12.5 g/dL Normal 12.0-16.0 [facility] Comment on above: Performed By: #### Neal DIMER CHEM7F ACBC #### Testing performed at [address] [address] MCH (RBC) [Entitic mass] 28.7 pg Normal 26.0-35.0 [facility] Comment on above: Performed By: #### D DIMER CHEM7F ACBC #### Testing performed at [address] [address] MCHC (RBC) [Mass/Vol] 33.4 g/dL Normal 27.0-37.0 [facility] Comment on above: Performed By: #### D DIMER CHEM7F ACBC #### Testing performed at [address] [address] MCV (RBC) [Entitic vol] 85.9 fL Normal 80.0-100.0 [facility] Comment on above: Performed By: #### D DIMER CHEM7F ACBC #### Testing performed at [address] [address] Platelet mean volume (Bld) [Entitic vol] 7.4 fL Normal 7.4-11.0 [facility] Comment on above: Performed By: #### D DIMER CHEM7F ACBC #### Testing performed at [address] [address] Platelets (Bld) [#/Vol] 305 10*3/uL Normal 130.0-400.0 [facility] Comment on above: Performed By: #### D DIMER, CHEM7F, ACBC #### Testing performed at [address] [address] RBC (Bld) [#/Vol] 4.35 10*6/uL Normal 4.0-5.4 [facility] Comment on above: Performed By: #### D DIMER, CHEM7F, ACBC #### Testing performed at [address] [address] WBC (Bld) [#/Vol] 5.6 10*3/uL Normal 3.6-11.0 [facility] Comment on above: Performed By: #### D DIMER, CHEM7F, ACBC #### Testing performed at [address] [address] CBC, EDIF, PLATELETon 2020 ABSOLUTE BASOPHIL COUNT 0.1 10*3/uL 0 - 0.2 10*3/uL [facility] Basophils/100 WBC (Bld) 1.1 % 0 - 2 % [facility] Differential cell count method Nom (Bld) AUTO DIFF % [facility] Eosinophils (Bld) [#/Vol] 0.10 10*3/uL 0 - 0.7 10*3/uL [facility] Eosinophils/100 WBC (Bld) 1.3 % 0 - 11 % [facility] Erythrocyte distribution width (RBC) [Ratio] 13.5 % 11.5 - 14.5 % [facility] Hematocrit (Bld) [Volume fraction] 37.4 % 36 - 48 % [facility] Hemoglobin (Bld) [Mass/Vol] 12.5 g/dL [facility] Interpretation and review of laboratory results Abnormal [facility] Lymphocytes (Bld) [#/Vol] 1.10 10*3/uL Low 1.2 - 3.4 10*3/uL [facility] Lymphocytes/100 WBC (Bld) 19.2 % Low 20 - 55 % [facility] MCH (RBC) [Entitic mass] 28.7 pg 26 - 35 PG [facility] MCHC (RBC) [Mass/Vol] 33.4 g/dL [facility] MCV (RBC) [Entitic vol] 85.9 fL [facility] Monocytes (Bld) [#/Vol] 0.4 10*3/uL 0 - 0.7 10*3/uL [facility] Monocytes/100 WBC (Bld) 7.6 % 0 - 10 % [facility] Neutrophils (Bld) [#/Vol] 4.0 10*3/uL 1.4 - 6.5 10*3/uL [facility] Neutrophils/100 WBC (Bld) 70.8 % 37 - 75 % [facility] Platelet mean volume (Bld) [Entitic vol] 7.4 fL [facility] Platelets (Bld) [#/Vol] 305 10*3/uL 130 - 400 10*3/uL [facility] RBC (Bld) [#/Vol] 4.35 10*6/uL 4 - 5.4 10*6/uL [facility] WBC (Bld) [#/Vol] 5.6 10*3/uL 3.6 - 11 10*3/uL [facility] CHEM 7 FASTINGon 10-31-2020 Creatinine [Mass/Vol] 0.68 mg/dL Normal 0.52-1.04 [facility] Comment on above: Performed By: #### D DIMER, CHEM7F, ACBC #### Testing performed at [address] [address] EST. GFR, >60 Normal [facility] Comment on above: Performed By: #### D DIMER, CHEM7F, ACBC #### Testing performed at [address] [address] EST. GFR,Non >60 Normal [facility] Comment on above: Performed By: #### D DIMER, CHEM7F, ACBC #### Testing performed at [address] [address] GFR/1.73 sq M predicted among non-blacks MDRD (S/P/Bld) [Vol rate/Area] Average GFR for 20-29 years old = 116. Normal [facility] Comment on above: Result Comment: [employer] renetta Kidney disease, GFR = <60. Kidney failure, GFR = <15. The GFR estimate is not adjusted for extreme body surface area or acute process, nor has it been validated for women or ethnic groups other than and . Performed By: #### D DIMER, CHEM7F, ACBC #### Testing performed at [address] [address] Urea nitrogen [Mass/Vol] 12 mg/dL Normal 7-20 [facility] Comment on above: Performed By: #### D DIMER, CHEM7F, ACBC #### Testing performed at [address] [address] Chloride [Moles/Vol] 103 mmol/L Normal 98-107 [facility] Comment on above: Performed By: #### D DIMER, CHEM7F, ACBC #### Testing performed at [address] [address] CO2 [Moles/Vol] 29 mmol/L Normal 22-30 [facility] Comment on above: Performed By: #### D DIMER, CHEM7F, ACBC #### Testing performed at [address] [address] Glucose [Mass/Vol] 127 mg/dL High 70-100 [facility] Comment on above: Result Comment: NORMAL <100 mg/dL PREDIABETES 101-126 mg/dL DIABETES 126 mg/dL or higher Performed By: #### D DIMER, CHEM7F, ACBC #### Testing performed at [address] [address] Potassium [Moles/Vol] 3.5 mmol/L Normal 3.5-5.1 [facility] Comment on above: Performed By: #### D DIMER, CHEM7F, ACBC #### Testing performed at [address] [address] Sodium [Moles/Vol] 138 mmol/L Normal 136-145 [facility] Comment on above: Performed By: #### D DIMER, CHEM7F, ACBC #### Testing performed at [address] [address] CHEM 7 (LYTES,BUN,CREA,GLUC) on 10-31-2020 Chloride [Moles/Vol] 103 mmol/L [facility] CO2 [Moles/Vol] 29 mmol/L [facility] Creatinine [Mass/Vol] 0.68 mg/dL [facility] GFR/1.73 sq M predicted among blacks MDRD (S/P/Bld) [Vol rate/Area] mL/min/{1.73_m2} ml/min/1.73s q.m [facility] GFR/1.73 sq M predicted among non-blacks MDRD (S/P/Bld) [Vol rate/Area] Average GFR for 20-29 years old = 116. [facility] Comment on above: Chronic Kidney disea se, GFR = <60. Kidney failure, GFR = <15. The GFR estimate is not adjusted for extreme body surface area or acute process, nor has it been validated for women or ethnic groups other than and . GFR/1.73 sq M predicted among non-blacks MDRD (S/P/Bld) [Vol rate/Area] mL/min/{1.73_m2} ml/min/1.73s q.m [facility] Glucose post fast [Mass/Vol] 127 mg/dL High [facility] Comment on above: NORMAL <100 mg/dL PREDIABETES 101-126 mg/dL DIABETES 126 mg/dL or higher Interpretation and review of laboratory results Abnormal [facility] Potassium [Moles/Vol] 3.5 mmol/L [facility] Sodium [Moles/Vol] 138 mmol/L [facility] Urea nitrogen [Mass/Vol] 12 mg/dL [facility] CT PE STUDYon 10-31-2020 CT PE [...] AI TECHNOLOGY: This study was processed using [employer]. No prior found. Current Lung [...] other acute process in the chest. Normal [facility] User, Interfaces - 10/31/2020 7:55 PM EST [...] AI TECHNOLOGY: This study was processed using [employer]. No prior found. Current Lung [...] or other acute process in the chest. [facility] IMPRESSION: No evide nt pulmonary embolism or other acute process in the chest. [facility] EXAMINATION: CT PE S TUDY HISTORY: [...] AI TECHNOLOGY: This study was processed using [employer]. No prior found. Current Lung [...] abdomen is unremarkable. No suspicious osseous lesion. [facility] D DIMERon 10-31-2020 D DIMER 1.09 mg/L FEU Critically high <0.56 [facility] Comment on above: Result Comment: If r esult is greater than the cutoff value of 0.5 mg/L then the potential for PE or DVT exists. Other conditions exist which may cause a falsely elevated level. Please correlate clinically, including radiological findings and other clinical parameters. CALLED TO AND READ BACK BY HECTOR OLIVA @ 1712 ON 10.31.20 BY GLS Performed By: #### D DIMER, CHEM7F, ACBC #### Testing performed at [address] [address] D-DIMER,QUANTITATIVEon 10-31 Fibrin D-dimer FEU (PPP) [Mass/Vol] 1.09 Critically high <0.56 mg/L FEU [facility] Comment on above: If result is greater than the cutoff value of 0.5 mg/L then the potential for PE or DVT exists. Other conditions exist which may cause a falsely elevated level. Please correlate clinically, including radiological findings and other clinical parameters. CALLED TO AND READ BACK BY HECTOR HAZEL @ 1712 ON 10.31.20 BY GLS Interpretation and review of laboratory results Abnormal [facility] HCG QUALITATIVE, URINEon HCG ( test) Ql (U) Negative NEGATIVE [facility] TROPONIN I, HIGH SENSITIVITY on 10-31-2020 TROPONIN I, HIGH SENSITIVITY <2 Normal 0-12 [facility] Comment on above: Result Comment: Indeterminant: >12 to 100 pg/mL female >20 to 100 pg/mL male Indicative of myocardial injury. Serial sampling is recommended, a change of greater than or equal to 20 pg/mL is indicative of acute coronary syndrome. Performed By: #### T ROHS #### Testing performed at [address] [address] TROPONIN I, HIGH SENSITIVITY <2 0 - 12 pg/mL [facility] Comment on above: Indeterminant: >12 to 100 pg/mL female >20 to 100 pg/mL male Indicative of myocardial injury. Serial sampling is recommended, a change of greater than or equal to 20 pg/mL is indicative of acute coronary syndrome. TSHon 10-31-2020 TSH Qn 1.877 uIU/ML Normal 0.45-5.33 [facility] Comment on above: Performed By: #### T SH2 #### Testing performed at [address] [address] [address] TSH Qn 1.877 m[IU]/L [facility] URINALYSIS, MACROon 10-31-19 21 Bilirubin Ql (U) SMALL Abnormal NEGATIVE [facility] Clarity (U) SLIGHTLY CLOUDY Abnormal CLEAR [facility] Color (U) PINK Abnormal YELLOW [facility] Glucose Test strip (U) [Mass/Vol] Negative NEGATIVE mg/dl [facility] Hemoglobin Ql (U) LARGE Abnormal NEGATIVE [facility] Interpretation and review of laboratory results Abnormal [facility] Ketones (U) [Mass/Vol] Negative NEGAT ANNA mg/dl [facility] Leukocyte esterase Test strip Ql (U) SMALL Abnormal NEGATIVE [facility] Nitrite Ql (U) Negative NEGATIVE [facility] System pH (U) 7.0 [pH] [facility] Protein Ql (U) >300 Abnormal NEGATIVE mg/dl [facility] Specific gravity (U) [Rel density] 1.020 [facility] Urobilinogen (U) [Mass/Vol] 0.2 [facility] URINE HCG QUALon 10-31-2020 Beta HCG ( test) Ql (U) Negative Normal NEGATIVE [facility] Comment on above: Performed By: #### U BRIGHT NORIEGA CGT #### Testing performed at [address] [address] URINE MACROSCOPICon 10-31-19 21 Bilirubin Ql (U) SMALL Abnormal NEGATIVE [facility] Comment on above: Performed By: #### U BRIGHT NORIEGA CGT #### Testing performed at [address] [address] Clarity (U) SLIGHTLY CLOUDY Abnormal CLEAR [facility] Comment on above: Performed By: #### U BRIGHT NORIEGA UHCGT #### Testing performed at [address] [place] [address] Color (U) PINK Abnormal YELLOW [facility] Comment on above: Performed By: #### U BRIGHT NORIEGA UHCGT #### Testing performed at [address] [address] Glucose Ql (U) Negative Normal NEGATIVE [facility] Comment on above: Performed By: #### U MAC, UMIC, UHCGT #### Testing performed at [address] [address] pH (U) 7.0 [pH] Normal 5.0-7.0 [facility] Comment on above: Performed By: #### U MAC, UMIC, UHCGT #### Testing performed at [address] [address] Protein (U) [Mass/Vol] mg/dL Abnormal NEGATIVE [facility] Comment on above: Performed By: #### U MAC, UMIC, UHCGT #### Testing performed at [address] [address] URINE HEMOGLOBIN LARGE Abnormal NEGATIVE [facility] Comment on above: Performed By: #### U MAC, UMIC, UHCGT #### Testing performed at [address] [address] URINE KETONE Negative Normal NEGATIVE [facility] Comment on above: Performed By: #### U MAC, UMIC, UHCGT #### Testing performed at [address] [address] URINE LEUKOTEST SMALL Abnormal NEGATIVE [facility] Comment on above: Performed By: #### U MAC, UMIC, UHCGT #### Testing performed at [address] [address] URINE NITRATES Negative Normal NEGATIVE [facility] Comment on above: Performed By: #### U MAC, UMIC, UHCGT #### Testing performed at [address] [address] URINE SPEC GRAVITY 1.020 Normal 1.010-1.025 [facility] Comment on above: Performed By: #### U MAC, UMIC, UHCGT #### Testing performed at [address] [address] Urobilinogen Qn (U) 0.2 {Sotero'U}/dL Normal 0.2-1.0 [facility] Comment on above: Performed By: #### U MAC, UMIC, UHCGT #### Testing performed at [address] [address] URINE MICROSCOPICon 10-31-19 21 Bacteria LM.HPF (Urine sed) [#/Area] 1+ Abnormal NEGATIVE [facility] Comment on above: Performed By: #### U MAC, UMIC, UHCGT #### Testing performed at [address] [place] [address] Casts LM.LPF (Urine sed) [#/Area] NONE Normal NONE [facility] Comment on above: Performed By: #### U MAC, UMIC, UHCGT #### Testing performed at [address] [place] [address] CRYSTAL OCCASIONAL Abnormal NONE [facility] Comment on above: Result Comment: CHANTAL PHOUS PHOSPHATES Performed By: #### U MAC, UMIC, UHCGT #### Testing performed at [address] [address] Epithelial cells LM.HPF (Urine sed) [#/Area] TOO NUMEROUS TO COUNT Normal [facility] Comment on above: Performed By: #### U MAC, UMIC, UHCGT #### Testing performed at [address] [place] [address] Mucus Ql (Urine sed) Negative Normal NEGATIVE [facility] Comment on above: Performed By: #### U MAC, UMIC, UHCGT #### Testing performed at [address] [address] RBC (U) [#/Vol] 5 TO 10 Normal NEGATIVE [facility] Comment on above: Performed By: #### U MAC, UMIC, UHCGT #### Testing performed at [address] [place] [address] URINE COMMENT POSSIBLY CONTAMINATE D SPECIMEN, CULTURE MUST BE ORDERED SEPARATELY IF DEEMED NECESSARY. Normal [facility] Comment on above: Performed By: #### U MAC, UMIC, UHCGT #### Testing performed at [address] [address] WBC (U) [#/Vol] 1 TO 5 Normal NEGATIVE [facility] Comment on above: Performed By: #### U MAC, UMIC, UHCGT #### Testing performed at [address] [place] [address] Bacteria LM.HPF (Urine sed) [#/Area] 1+ Abnormal NEGATIVE [facility] Casts LM.LPF (Urine sed) [#/Area] NONE NONE /LPF [facility] Crystals LM Nom (Urine sed) OCCASIONAL Abnormal NONE [facility] Comment on above: AMORPHOUS PHOSPHATES Epithelial cells LM Ql (Urine sed) TOO NUMEROUS TO COUNT /HPF [facility] System Interpretation and review of laboratory results Abnormal [facility] Mucus Ql (Urine sed) Negative NEGATIVE [facility] RBC LM.HPF (Urine sed) [#/Area] 5 TO 10 NEGATIVE /HPF [facility] Urine sediment comments LM Juan (Urine sed) POSSIBLY CONTAMINATED SPECIMEN, CULTURE MUST BE ORDERED SEPARATELY IF DEEMED NECESSARY. [facility] WBC LM.HPF (Urine sed) [#/Area] 1 TO 5 NEGATIVE /HPF [facility] Auto Diffon 03-16-2019 Basophils (Bld) [#/Vol] 0.1 E3/mcL Normal 0.0-0.2 [facility] Comment on above: Order Comment: Order Added by Discern Expert. Performed By: #### 2 [id number] #### LIU RemHemo [address] [place] [address] Basophils/100 WBC (Bld) 1.3 % Normal 0.0-2.0 [facility] Comment on above: Order Comment: Order Added by Discern Expert. Performed By: #### 2 [id number] #### LIU RemHemo [address] [place] [address] Eos Absolute 0.2 E3/mcL Normal 0.0-0.7 [facility] Comment on above: Order Comment: Order Added by Discern Expert. Performed By: #### 2 737003 #### LIU RemHemo [address] [place] [address] Eosinophils/100 WBC (Bld) 4.6 % Normal 0.0-11.0 [facility] Comment on above: Order Comment: Order Added by Discern Expert. Performed By: #### 2 277001 #### LIU RemHemo [address] [place] [address] Lymphocytes (Bld) [#/Vol] 1.8 E3/mcL Normal 1.2-3.4 [facility] Comment on above: Order Comment: Order Added by Discern Expert. Performed By: #### 2 095659 #### LIU RemHemo [address] [place] [address] Lymphocytes/100 WBC (Bld) 38.4 % Normal 20.0-55.0 [facility] Comment on above: Order Comment: Order Added by Discern Expert. Performed By: #### 2 743077 #### LIU RemHemo [address] [place] [address] [place] Absolute 0.3 E3/mcL Normal 0.0-0.7 [facility] Comment on above: Order Comment: Order Added by Discern Expert. Performed By: #### 2 379978 #### LIU MuñozHemo [address] [place] [address] Monocytes/100 WBC (Bld) 7.4 % Normal 0.0-10.0 [facility] Comment on above: Order Comment: Order Added by Discern Expert. Performed By: #### 2 294287 #### LIU RemHemo [address] [place] [id number] Neutro Absolute 2.2 E3/mcL Normal 1.4-6.5 [facility] Comment on above: Order Comment: Order Added by Discern Expert. Performed By: #### 2 492460 #### LIU MuñozHemo [address] [place] [address] Neutro Auto 48.3 % Normal 37.0-75.0 [facility] Comment on above: Order Comment: Order Added by Discern Expert. Performed By: #### 2 484337 #### LIU WnadaHemo [address] [place] [address] CBC w/ Auto Diffon 9 Erythrocyte distribution width (RBC) [Ratio] 12.8 % Normal 11.5-14.5 [facility] Comment on above: Performed By: #### 2 936728 #### LIU WandaHemo [address] [place] [address] Hematocrit (Bld) [Volume fraction] 37.2 % Normal 36.0-48.0 [facility] Comment on above: Performed By: #### 2 515357 #### LIU RemHemo [address] [place] [address] Hemoglobin (Bld) [Mass/Vol] 12.7 g/dL Normal 12.0-16.0 [facility] Comment on above: Performed By: #### 2 139319 #### LIU RemHemo [address] [place] [address] MCH (RBC) [Entitic mass] 29.8 pg Normal 27.0-31.0 [facility] Comment on above: Performed By: #### 2 354084 #### LIU RemHemo [address] [place] [address] MCHC (RBC) [Mass/Vol] 34.2 g/dL Normal 33.0-37.0 [facility] Comment on above: Performed By: #### 2 523272 #### LIU RemHemo [address] [place] [address] MCV (RBC) [Entitic vol] 87.1 fL Normal 78.0-100.0 [facility] Comment on above: Performed By: #### 2 525893 #### LIU RemHemo [address] [place] [address] Platelet mean volume (Bld) [Entitic vol] 7.6 fL Normal 7.4-11.0 [facility] Comment on above: Performed By: #### 2 132453 #### LIU RemHemo [address] [place] [address] Platelets (Bld) [#/Vol] 321 E3/mcL Normal 130-400 [facility] Comment on above: Performed By: #### 2 393509 #### LIU RemHemo [address] [place] [address] RBC (Bld) [#/Vol] 4.27 E6/mcL Normal 3.90-5.40 [facility] Comment on above: Performed By: #### 2 328022 #### LIU RemHemo [address] [place] [address] WBC (Bld) [#/Vol] 4.6 E3/mcL Normal 3.6-11.0 [facility] Comment on above: Performed By: #### 2 183456 #### LIU RemHemo [address] [place] [address] Ferritinon 03-16-2019 Ferritin [Mass/Vol] 31.0 ng/mL Normal 8.0-150.0 [facility] Comment on above: Performed By: #### 2 571076 #### LIU MuñozHemo [address] [place] [id number] Free T4on 03-16-2019 Free T4 [Mass/Vol] 0.80 ng/dL Normal 0.58-1.64 [facility] Comment on above: Performed By: #### 2 556331 #### LIU MuñozHemo [address] [place] [id number] Ironon 03-16-2019 Iron [Mass/Vol] 254 microgram/dL High 28-175 [facility] Comment on above: Performed By: #### 2 099493 #### LIU MuñozHemo [facility] [place] [address] TSHon 03-16-2019 TSH Qn 2.47 mcIU/mL Normal 0.30-5.60 [facility] Comment on above: Performed By: #### 2 289424 #### LIU MuñozHemo [facility] [place] [id number] Vit B12on 03-16-2019 Cobalamin (Vitamin B12) [Mass/Vol] 360 pg/mL Normal 180-914 [facility] Comment on above: Performed By: #### 2 439789 #### LIU MuñozHemo [address] [place] [address] [place] Screenon 09-12-2018 [place] Scr Negative Normal Neg [facility] Comment on above: Performed By: #### 2 931766 #### LIU RemHemo [address] [place] [address] Antinuclear Antibody Screeno n 09-08-2018 [place]AL[place] Direct Negative Normal Negative [facility] Comment on above: Result Comment: Perf ormed At: [facility] [address] [id number] Tommy Appiah PhD Ph:[phone] Performed By: #### 2 294247 #### LIU MuñozHemo [address] [place] [id number] Lab Miscellaneouson 09-08-20 18 Status See Ref Lab Report Normal [facility] Comment on above: Performed By: #### 1 [id number] #### LIU Send Outs Subsection [address] [place] [address] IgA, Quant.on 09-06-2018 IgA Quant 118 mg/dL Normal [facility] Comment on above: Result Comment: No [...] >70 years 64 - 422 Performed At: [address] [id number] Tommy Appiah PhD Ph:[phone] Performed By: #### 1 [id number] #### LIU Send Outs Subsection [address] [place] [address] Thyroid Perox.tpo Abon 09-06 TPO Ab 53 International_Unit/mL High 0- [facility] Comment on above: Result Comment: Perf ormed At: [address] [id number] Tommy Appiah PhD Ph:[phone] Performed By: #### 1 [id number] #### LIU Send Outs Subsection [facility] [place] [address] t-TRANSGLUTAMINASE IgAon t-Transglutaminase IgA <2 Normal 0-3 [facility] Comment on above: Result Comment: Nega tive 0 - 3 Weak Positive 4 - 10 Positive >10 Tissue Transglutaminase (tTG) has been identified as the endomysial antigen. Studies have demonstr- ated that endomysial IgA antibodies have over 99% specificity for gluten sensitive enteropathy. Performed At: [address] [id number] Tommy Appiah PhD Ph:[phone] Performed By: #### 2 635308 #### LIU RemHemo [address] [place] [address] Auto Diffon 09-03-2018 Basophils (Bld) [#/Vol] 0.0 E3/mcL Normal 0.0-0.2 [facility] Comment on above: Order Comment: Order Added by Discern Expert. Performed By: #### 2 216156 #### LIU MuñozHemo [address] [place] [address] Basophils/100 WBC (Bld) 0.6 % Normal 0.0-2.0 [facility] Comment on above: Order Comment: Order Added by Discern Expert. Performed By: #### 2 098631 #### LIU RemHemo [address] [place] [address] Eos Absolute 0.1 E3/mcL Normal 0.0-0.7 [facility] Comment on above: Order Comment: Order Added by Discern Expert. Performed By: #### 2 653712 #### LIU RemHemo [address] [place] [address] Eosinophils/100 WBC (Bld) 1.0 % Normal 0.0-11.0 [facility] Comment on above: Order Comment: Order Added by Discern Expert. Performed By: #### 2 636481 #### LIU MuñozHemo [address] [place] [address] Lymphocytes (Bld) [#/Vol] 1.0 E3/mcL Low 1.2-3.4 [facility] Comment on above: Order Comment: Order Added by Discern Expert. Performed By: #### 2 644314 #### LIU RemHemo [address] [place] [address] Lymphocytes/100 WBC (Bld) 15.2 % Low 20.0-55.0 [facility] Comment on above: Order Comment: Order Added by Discern Expert. Performed By: #### 2 384887 #### LIU RemHemo [address] [place] [address] [place] Absolute 0.4 E3/mcL Normal 0.0-0.7 [facility] Comment on above: Order Comment: Order Added by Discern Expert. Performed By: #### 2 717457 #### LIU RemHemo [address] [place] [address] Monocytes/100 WBC (Bld) 7.0 % Normal 0.0-10.0 [facility] Comment on above: Order Comment: Order Added by Discern Expert. Performed By: #### 2 602653 #### LIU RemHemo [address] [place] [address] Neutro Absolute 4.8 E3/mcL Normal 1.4-6.5 [facility] Comment on above: Order Comment: Order Added by Discern Expert. Performed By: #### 2 533068 #### LIU MuñozHemo [address] [place] [address] Neutro Auto 76.2 % High 37.0-75.0 [facility] Comment on above: Order Comment: Order Added by Discern Expert. Performed By: #### 2 623801 #### LIU MuñozHemo [address] [place] [address] CBC w/ Auto Diffon 8 Erythrocyte distribution width (RBC) [Ratio] 12.8 % Normal 11.5-14.5 [facility] Comment on above: Performed By: #### 2 561660 #### LIU MuñozHemo [address] [place] [address] Hematocrit (Bld) [Volume fraction] 32.5 % Low 36.0-48.0 [facility] Comment on above: Performed By: #### 2 183330 #### LIU MuñozHemo [address] [place] [address] Hemoglobin (Bld) [Mass/Vol] 11.2 g/dL Low 12.0-16.0 [facility] Comment on above: Performed By: #### 2 950191 #### LIU RemHemo [address] [place] [address] MCH (RBC) [Entitic mass] 29.9 pg Normal 27.0-31.0 [facility] Comment on above: Performed By: #### 2 011689 #### LIU RemHemo [address] [place] [address] MCHC (RBC) [Mass/Vol] 34.5 g/dL Normal 33.0-37.0 [facility] Comment on above: Performed By: #### 2 224424 #### LIU RemHemo [address] [place] [address] MCV (RBC) [Entitic vol] 86.6 fL Normal 78.0-100.0 [facility] Comment on above: Performed By: #### 2 652023 #### LIU RemHemo [address] [place] [address] Platelet mean volume (Bld) [Entitic vol] 7.8 fL Normal 7.4-11.0 [facility] Comment on above: Performed By: #### 2 293561 #### LIU RemHemo [address] [place] [address] Platelets (Bld) [#/Vol] 259 E3/mcL Normal 130-400 [facility] Comment on above: Performed By: #### 2 609417 #### LIU RemHemo [address] [place] [address] RBC (Bld) [#/Vol] 3.75 E6/mcL Low 3.90-5.40 [facility] Comment on above: Performed By: #### 2 729238 #### LIU RemHemo [address] [place] [address] WBC (Bld) [#/Vol] 6.3 E3/mcL Normal 3.6-11.0 [facility] Comment on above: Performed By: #### 2 036846 #### LIU RemHemo [address] [place] [address] CMPon 09-03-2018 Anion gap [Moles/Vol] 14 mmol/L Normal 10-20 [facility] Comment on above: Performed By: #### 2 090616 #### LIU RemChem [address] [place] [address] Albumin [Mass/Vol] 4.6 g/dL Normal 3.4-5.0 [facility] Comment on above: Performed By: #### 2 225587 #### LIU [facility] [address] [place] [address] Albumin/Globulin [Mass ratio] 1.8 {ratio} Normal 1.1-1.9 [facility] Comment on above: Performed By: #### 2 163289 #### LIU MuñozChem [address] [place] [address] Alk Phos 55 Int._Unit/L Normal 33-139 [facility] Comment on above: Performed By: #### 2 184552 #### LIU MuñozChem [address] [place] [address] ALT [Catalytic activity/Vol] 6 Int._Unit/L Low 7-45 [facility] Comment on above: Performed By: #### 2 050768 #### LIU MuñozChem [facility] [place] [address] AST [Catalytic activity/Vol] 11 Int._Unit/L Normal 9-39 [facility] Comment on above: Performed By: #### 2 442989 #### LIU MuñozChem [facility] [place] [address] Bili Total 0.4 mg/dL Normal 0.0-1.2 [facility] Comment on above: Performed By: #### 2 987438 #### LIUCheikh [facility] [address] [place] [address] Calcium [Mass/Vol] 9.1 mg/dL Normal 8.5-10.7 [facility] Comment on above: Performed By: #### 2 992821 #### LIUCheikh [facility] [address] [place] [address] Chloride [Moles/Vol] 108 mmol/L High 98-107 [facility] Comment on above: Performed By: #### 2 512417 #### LIU RemChem [facility] [place] [address] CO2 [Moles/Vol] 22.0 mmol/L Normal 21.0-32.0 [facility] Comment on above: Performed By: #### 2 407651 #### LIU [employer] [address] [place] [address] Creatinine [Mass/Vol] 0.6 mg/dL Normal 0.5-1.1 [facility] Comment on above: Performed By: #### 2 017698 #### LIU [employer] [address] [place] [address] Globulin (S) [Mass/Vol] 3.0 g/dL Normal 2.0-4.0 [facility] Comment on above: Performed By: #### 2 289549 #### LIU RemChem [facility] [place] [address] Glucose [Mass/Vol] 99 mg/dL Normal 70-99 [facility] Comment on above: Performed By: #### 2 996063 #### LIU [employer] [address] [place] [address] Potassium [Moles/Vol] 3.6 mmol/L Normal 3.5-5.3 [facility] Comment on above: Performed By: #### 2 579368 #### [facility]U [employer] [address] [place] [address] Protein [Mass/Vol] 7.2 g/dL Normal 6.4-8.2 [facility] Comment on above: Performed By: #### 2 391131 #### LIU Rem[address] [address] Sodium [Moles/Vol] 140 mmol/L Normal 136-145 [facility] Comment on above: Performed By: #### 2 456281 #### LIU [employer] [address] [place] [address] Urea nitrogen [Mass/Vol] 8 mg/dL Normal 6-23 [facility] Comment on above: Performed By: #### 2 628284 #### LIU Wanda[address] [address] Urea nitrogen/Creatinine [Mass ratio] 13.3 ratio Normal 5.4-30.0 [facility] Comment on above: Performed By: #### 2 361965 #### LIU [employer] [address] [place] [address] Free T4on 09-03-2018 Free T4 [Mass/Vol] 0.91 ng/dL Normal 0.58-1.64 [facility] Comment on above: Performed By: #### 2 478455 #### LIU [employer] [address] [place] [address] Lab Miscellaneouson 09-03-20 18 Test Name [id number] Normal [facility] Comment on above: Performed By: #### 1 [id number] #### LIU Send Outs Subsection [address] [place] [address] Sed Rate Automatedon 018 Sed Rate Automated 6 mm/hr Normal [facility] Comment on above: Result Comment: AGE- SPECIFIC REFERENCE RANGES FOR SEDIMENTATION RATE AUTOMATED REFERENCE RANGE - MM/HR AGE MEN WOMEN 0-2 0-2 - PUBERTY 3-13 3-13 PUBERTY - 50 YRS 0-15 0-20 > 50 YRS 0-20 0-30 Performed By: #### 1 [id number] #### LIU Hematology Manual Subsection [address] [place] [address] TSHon 09-03-2018 TSH Qn 2.46 mcIU/mL Normal 0.30-5.60 [facility] Comment on above: Performed By: #### 2 679645 #### LIU [employer] [address] [place], [place] [id number] eGFRon 09-03-2018 GFR/1.73 sq M predicted among non-blacks MDRD (S/P/Bld) [Vol rate/Area] mL/min/{1.73_m2} Normal [facility] Comment on above: Order Comment: Order added by Discern Expert. Performed By: #### 1 [id number] #### [facility]U [employer] [address] [place] [address] Vital Signs Date Time Vital Sign Value Performing Clinician Facility 05-13-2025 14:50-0400 Body height 160.02 cm Chrystal ACEVEDO Work Phone: [facility] 05-13-2025 14:49-0400 Body mass index (BMI) [Ratio] 24.3 kg/m2 Chrystal ACEVEDO Work Phone: [facility] 05-13-2025 14:49-0400 Body weight 62.19 kg Chrystal ACEVEDO Work Phone: [facility] 05-13-2025 14:49-0400 Diastolic blood pressure 72 mm[Hg] Chrystal ACEVEDO Work Phone: [facility] 05-13-2025 14:49-0400 Systolic blood pressure 111 mm[Hg] Chrystal ACEVEDO Work Phone: [facility] 04-30-2025 10:00-0400 Body height 160.02 cm Chrystal Cally PA Work Phone: [facility] 04-30-2025 10:00-0400 Body mass index (BMI) [Ratio] 23.7 kg/m2 Chrystal Tesuque PA Work Phone: [facility] 04-30-2025 10:00-0400 Body weight 60.78 kg Chrystal Cally PA Work Phone: [facility] 04-30-2025 10:00-0400 Diastolic blood pressure 71 mm[Hg] Chrystal Cally PA Work Phone: [facility] 04-30-2025 10:00-0400 Systolic blood pressure 111 mm[Hg] Chrystal Tesuque PA Work Phone: [facility] 04-06-2025 17:08-0400 Body temperature 98 [degF] Chrystal Tesuque PA Work Phone: [facility] 04-06-2025 17:08-0400 Diastolic blood pressure 75 mm[Hg] Chrystal Cally PA Work Phone: [facility] 04-06-2025 17:08-0400 Heart rate 77 /min Chrystal Cally PA Work Phone: [facility] 04-06-2025 17:08-0400 Respiratory rate 16 /min Chrystal Cally PA Work Phone: [facility] 04-06-2025 17:08-0400 SaO2% (BldA) [Mass fraction] 100 % Chrystal Cally PA Work Phone: [facility] 04-06-2025 17:08-0400 Systolic blood pressure 107 mm[Hg] Chrystal Cally PA Work Phone: [facility] 04-06-2025 12:51-0400 Body height 160.02 cm Chrystal Tesuque PA Work Phone: [facility] 04-06-2025 12:51-0400 Body mass index (BMI) [Ratio] 24.2 kg/m2 Chrystal Cally PA Work Phone: [facility] 04-06-2025 12:51-0400 Body weight 62 kg Chrystal Tesuque PA Work Phone: [facility] 04-05-2025 10:53-0400 Body height 160.02 cm Chrystal Tesuque PA Work Phone: [facility] 04-05-2025 10:51-0400 Body mass index (BMI) [Ratio] 24.4 kg/m2 Chrystal Cally PA Work Phone: [facility] 04-05-2025 10:51-0400 Body weight 62.59 kg Chrystal Tesuque PA Work Phone: [facility] 04-05-2025 10:51-0400 Diastolic blood pressure 79 mm[Hg] Chrystal Cally PA Work Phone: [facility] 04-05-2025 10:51-0400 Systolic blood pressure 121 mm[Hg] Chrystal Tesuque PA Work Phone: [facility] 03-11-2025 08:03-0400 Body height 160.02 cm Chrystal Cally PA Work Phone: [facility] 03-11-2025 08:03-0400 Body mass index (BMI) [Ratio] 24.1 kg/m2 Chrystal Tesuque PA Work Phone: [facility] 03-11-2025 08:03-0400 Body weight 61.8 kg Chrystal Tesuque PA Work Phone: [facility] 03-11-2025 08:03-0400 Diastolic blood pressure 73 mm[Hg] Chrystal Cally PA Work Phone: [facility] 03-11-2025 08:03-0400 Heart rate 93 /min Chrystal Tesuque PA Work Phone: [facility] 03-11-2025 08:03-0400 SaO2% (BldA) [Mass fraction] 98 % Chrystal Cally PA Work Phone: [facility] 03-11-2025 08:03-0400 Systolic blood pressure 106 mm[Hg] Chrystal Cally PA Work Phone: [facility] 01-05-2025 14:42-0400 Body height 160 cm Chrystal Cally PA-C Work Phone: [facility] 01-05-2025 14:42-0400 Body mass index (BMI) [Ratio] 24.27 kg/m2 Chrystal Cally PA-C Work Phone: [facility] 01-05-2025 14:42-0400 Body weight 62.14 kg Chrystal Tesuque PA-C Work Phone: [facility] 01-05-2025 14:42-0400 Diastolic blood pressure 62 mm[Hg] Chrystal Tesuque PA-C Work Phone: [facility] 01-05-2025 14:42-0400 Heart rate 76 /min Chrystal Tesuque PA-C Work Phone: [facility] 01-05-2025 14:42-0400 Systolic blood pressure 108 mm[Hg] Chrystal Cally PA-C Work Phone: [facility] 12-22-2024 09:34-0400 Body height 160.02 cm Chrystal Tesuque PA Work Phone: [facility] 12-22-2024 09:34-0400 Body mass index (BMI) [Ratio] 24.5 kg/m2 Chrystal Tesuque PA Work Phone: [facility] 12-22-2024 09:34-0400 Body weight 62.76 kg Chrystal Tesuque PA Work Phone: [facility] 12-22-2024 09:34-0400 Diastolic blood pressure 79 mm[Hg] Chrystal Cally PA Work Phone: [facility] 12-22-2024 09:34-0400 Systolic blood pressure 124 mm[Hg] Chrystal Tesuque PA Work Phone: [facility] 11-24-2024 14:51-0500 Body height 160 cm Chrystal Cally PA-C Work Phone: [facility] 11-24-2024 14:51-0500 Body mass index (BMI) [Ratio] 25.23 kg/m2 Chrystal Tesuque PA-C Work Phone: [facility] 11-24-2024 14:51-0500 Body weight 64.59 kg Chrystal Cally PA-C Work Phone: [facility] 11-24-2024 14:51-0500 Diastolic blood pressure 78 mm[Hg] Chrystal Cally PA-C Work Phone: [facility] 11-24-2024 14:51-0500 Heart rate 93 /min Chrystal Cally PA-C Work Phone: [facility] 11-24-2024 14:51-0500 SaO2% (BldA) [Mass fraction] 98 % Chrystal Cally PA-C Work Phone: [facility] 11-24-2024 14:51-0500 Systolic blood pressure 112 mm[Hg] Chrystal Cally PA-C Work Phone: [facility] 08-06-2024 16:51-0400 Body height 160 cm Roe Newbill PA-C Work Phone: [facility] 08-06-2024 16:51-0400 Body mass index (BMI) [Ratio] 26.57 kg/m2 Roe Newbill PA-C Work Phone: [facility] 08-06-2024 16:51-0400 Body temperature 98.49 [degF] Roe Newbill PA-C Work Phone: [facility] 08-06-2024 16:51-0400 Body weight 68.04 kg Roe Newbill PA-C Work Phone: [facility] 08-06-2024 16:51-0400 Diastolic blood pressure 77 mm[Hg] Roe Newbill PA-C Work Phone: [facility] 08-06-2024 16:51-0400 Heart rate 78 /min Roe Newbill PA-C Work Phone: [facility] 08-06-2024 16:51-0400 Respiratory rate 16 /min Roe Newbill PA-C Work Phone: [facility] 08-06-2024 16:51-0400 SaO2% (BldA) [Mass fraction] 99 % Roe Newbill PA-C Work Phone: [facility] 08-06-2024 16:51-0400 Systolic blood pressure 120 mm[Hg] Roe Newbill PA-C Work Phone: [facility] 01-27-2024 13:07-0400 Body height 160.02 cm PA Chrystal Tesuque PA Work Phone: [facility] 01-21-2024 09:56-0400 Body mass index (BMI) [Ratio] 30.4 kg/m2 PA Chrystal Cally PA Work Phone: [facility] 01-21-2024 09:56-0400 Body weight 78.01 kg PA Chrystal Cally PA Work Phone: [facility] 01-21-2024 09:56-0400 Diastolic blood pressure 83 mm[Hg] PA Chrystal Tesuque PA Work Phone: [facility] 01-21-2024 09:56-0400 Systolic blood pressure 129 mm[Hg] PA Chrystal Tesuque PA Work Phone: [facility] 12-18-2023 18:38-0500 Diastolic blood pressure 70 mm[Hg] PA Chrystal Cally PA Work Phone: [facility] 12-18-2023 18:38-0500 Heart rate 71 /min PA Chrystal Tesuque PA Work Phone: [facility] 12-18-2023 18:38-0500 Systolic blood pressure 120 mm[Hg] PA Chrystal Cally PA Work Phone: [facility] 12-18-2023 18:01-0500 Body height 160.02 cm PA Chrystal Cally PA Work Phone: [facility] 12-18-2023 18:01-0500 Body mass index (BMI) [Ratio] 31.7 kg/m2 PA Chrystal Tesuque PA Work Phone: [facility] 12-18-2023 18:01-0500 Body weight 81.3 kg PA Chrystal Cally PA Work Phone: [facility] 12-18-2023 17:54-0500 SaO2% (BldA) [Mass fraction] 99 % PA Chrystal Tesuque PA Work Phone: [facility] 12-18-2023 17:53-0500 Body temperature 98.5 [degF] PA Chrystal Cally PA Work Phone: [facility] 12-18-2023 17:53-0500 Respiratory rate 18 /min PA Chrystal Cally PA Work Phone: [facility] 12-14-2023 09:03-0500 Body temperature 98.1 [degF] PA Chrystal Tesuque PA Work Phone: [facility] 12-14-2023 09:03-0500 Diastolic blood pressure 63 mm[Hg] PA Chrystal Tesuque PA Work Phone: [facility] 12-14-2023 09:03-0500 Heart rate 90 /min PA Chrystal Cally PA Work Phone: [facility] 12-14-2023 09:03-0500 Respiratory rate 16 /min PA Chrystal Tesuque PA Work Phone: [facility] 12-14-2023 09:03-0500 Systolic blood pressure 118 mm[Hg] PA Chrystal Cally PA Work Phone: [facility] 12-14-2023 01:03-0500 SaO2% (BldA) [Mass fraction] 98 % PA Chrystal Cally PA Work Phone: [facility] 12-12-2023 15:10-0500 Body height 160.02 cm PA Chrystal Cally PA Work Phone: [facility] 12-12-2023 15:10-0500 Body mass index (BMI) [Ratio] 34 kg/m2 PA Chrystal Tesuque PA Work Phone: [facility] 12-12-2023 15:10-0500 Body weight 87.08 kg PA Chrystal Cally PA Work Phone: [facility] 12-12-2023 14:25-0500 Body mass index (BMI) [Ratio] 34.3 kg/m2 PA Chrystal Tesuque PA Work Phone: [facility] 12-12-2023 14:25-0500 Body weight 87.99 kg PA Chrystal Tesuque PA Work Phone: [facility] 12-12-2023 14:25-0500 Diastolic blood pressure 77 mm[Hg] PA Chrystal Tesuque PA Work Phone: [facility] 12-12-2023 14:25-0500 Systolic blood pressure 112 mm[Hg] PA Chrystal Cally PA Work Phone: [facility] 12-05-2023 13:53-0500 Body mass index (BMI) [Ratio] 33.6 kg/m2 PA Chrystal Cally PA Work Phone: [facility] 12-05-2023 13:53-0500 Body weight 86.18 kg PA Chrystal Tesuque PA Work Phone: [facility] 12-05-2023 13:53-0500 Diastolic blood pressure 72 mm[Hg] PA Chrystal Cally PA Work Phone: [facility] 12-05-2023 13:53-0500 Systolic blood pressure 104 mm[Hg] PA Chrystal Tesuque PA Work Phone: [facility] 11-27-2023 22:28-0500 Heart rate 94 /min PA Chrystal Tesuque PA Work Phone: [facility] 11-27-2023 22:28-0500 SaO2% (BldA) [Mass fraction] 98 % PA Chrystal Cally PA Work Phone: [facility] 11-27-2023 21:32-0500 Body height 160.02 cm PA Chrystal Tesuque PA Work Phone: [facility] 11-27-2023 21:32-0500 Body mass index (BMI) [Ratio] 33.8 kg/m2 PA Chrystal Cally PA Work Phone: [facility] 11-27-2023 21:32-0500 Body weight 86.7 kg PA Chrystal Tesuque PA Work Phone: [facility] 11-27-2023 20:36-0500 Body temperature 98.3 [degF] PA Chrystal Tesuque PA Work Phone: [facility] 11-27-2023 20:36-0500 Diastolic blood pressure 63 mm[Hg] PA Chrystal Cally PA Work Phone: [facility] 11-27-2023 20:36-0500 Systolic blood pressure 112 mm[Hg] PA Chrystal Tesuque PA Work Phone: [facility] 11-14-2023 10:46-0500 Body mass index (BMI) [Ratio] 33.5 kg/m2 PA Chrystal Tesuque PA Work Phone: [facility] 11-14-2023 10:46-0500 Body weight 85.89 kg PA Chrystal Cally PA Work Phone: [facility] 11-14-2023 10:46-0500 Diastolic blood pressure 74 mm[Hg] PA Chrystal Cally PA Work Phone: [facility] 11-14-2023 10:46-0500 Systolic blood pressure 124 mm[Hg] PA Chrystal Cally PA Work Phone: [facility] 11-06-2023 13:33-0500 Body height 160.02 cm PA Chrystal Cally PA Work Phone: [facility] 11-06-2023 13:33-0500 Body weight 85.54 kg PA Chrystal Cally PA Work Phone: [facility] 10-30-2023 10:34-0500 Body mass index (BMI) [Ratio] 33 kg/m2 PA Chrystal Tesuque PA Work Phone: [facility] 10-30-2023 10:34-0500 Body weight 84.53 kg PA Chrystal Tesuque PA Work Phone: [facility] 10-30-2023 10:34-0500 Diastolic blood pressure 71 mm[Hg] PA Chrystal Cally PA Work Phone: [facility] 10-30-2023 10:34-0500 Systolic blood pressure 117 mm[Hg] PA Chrystal Cally PA Work Phone: [facility] 10-18-2023 11:51-0500 Body temperature 98.8 [degF] PA Chrystal Cally PA Work Phone: [facility] 10-18-2023 11:51-0500 Diastolic blood pressure 56 mm[Hg] PA Chrystal Tesuque PA Work Phone: [facility] 10-18-2023 11:51-0500 Heart rate 95 /min PA Chrystal Cally PA Work Phone: [facility] 10-18-2023 11:51-0500 Respiratory rate 16 /min PA Chrystal Cally PA Work Phone: [facility] 10-18-2023 11:51-0500 SaO2% (BldA) [Mass fraction] 96 % PA Chrystal Cally PA Work Phone: [facility] 10-18-2023 11:51-0500 Systolic blood pressure 102 mm[Hg] PA Chrystal Tesuque PA Work Phone: [facility] 10-18-2023 09:06-0500 Body height 160.02 cm PA Chrystal Tesuque PA Work Phone: [facility] 10-18-2023 09:06-0500 Body mass index (BMI) [Ratio] 3.2 kg/m2 PA Chrystal Tesuque PA Work Phone: [facility] 10-18-2023 09:06-0500 Body weight 8.16 kg PA Chrystal Tesuque PA Work Phone: [facility] 10-17-2023 10:10-0500 Body mass index (BMI) [Ratio] 34 kg/m2 PA Chrystal Cally PA Work Phone: [facility] 10-17-2023 10:10-0500 Body weight 84.53 kg PA Chrystal Cally PA Work Phone: [facility] 10-17-2023 10:10-0500 Diastolic blood pressure 80 mm[Hg] PA Chrystal Cally PA Work Phone: [facility] 10-17-2023 10:10-0500 Systolic blood pressure 121 mm[Hg] PA Chrystal Cally PA Work Phone: [facility] 10-16-2023 21:28-0500 Diastolic blood pressure 86 mm[Hg] PA Chrystal Cally PA Work Phone: [facility] 10-16-2023 21:28-0500 Heart rate 91 /min PA Chrystal Tesuque PA Work Phone: [facility] 10-16-2023 21:28-0500 Systolic blood pressure 117 mm[Hg] PA Chrystal Cally PA Work Phone: [facility] 10-16-2023 19:19-0500 Respiratory rate 19 /min PA Chrystal Cally PA Work Phone: [facility] 10-16-2023 17:51-0500 Body height 157.48 cm PA Chrystal Tesuque PA Work Phone: [facility] 10-16-2023 17:51-0500 Body mass index (BMI) [Ratio] 33.3 kg/m2 PA Chrystal Tesuque PA Work Phone: [facility] 10-16-2023 17:51-0500 Body temperature 97.4 [degF] PA Chrystal Tesuque PA Work Phone: [facility] 10-16-2023 17:51-0500 Body weight 82.55 kg PA Chrystal Cally PA Work Phone: [facility] 10-16-2023 17:51-0500 SaO2% (BldA) [Mass fraction] 99 % PA Chrystal Tesuque PA Work Phone: [facility] 09-16-2023 15:22-0500 Body height 157.48 cm PA Chrystal Cally PA Work Phone: [facility] 09-16-2023 15:22-0500 Body mass index (BMI) [Ratio] 32.2 kg/m2 PA Chrystal Cally PA Work Phone: [facility] 09-16-2023 15:22-0500 Body weight 79.88 kg PA Chrystal Cally PA Work Phone: [facility] 09-16-2023 15:22-0500 Diastolic blood pressure 68 mm[Hg] PA Chrystal Tesuque PA Work Phone: [facility] 09-16-2023 15:22-0500 Systolic blood pressure 118 mm[Hg] PA Chrystal Cally PA Work Phone: [facility] 08-08-2023 11:21-0400 Body height 157.48 cm PA Chrystal Tesuque PA Work Phone: [facility] 08-08-2023 11:21-0400 Body mass index (BMI) [Ratio] 29 kg/m2 PA Chrystal Tesuque PA Work Phone: [facility] 08-08-2023 11:21-0400 Body temperature 97.8 [degF] PA Chrystal Tesuque PA Work Phone: [facility] 08-08-2023 11:21-0400 Body weight 71.89 kg PA Chrystal Tesuque PA Work Phone: [facility] 08-08-2023 11:21-0400 Diastolic blood pressure 70 mm[Hg] PA Chrystal Tesuque PA Work Phone: [facility] 08-08-2023 11:21-0400 Heart rate 78 /min PA Chrystal Cally PA Work Phone: [facility] 08-08-2023 11:21-0400 Respiratory rate 16 /min PA Chrystal Cally PA Work Phone: [facility] 08-08-2023 11:21-0400 SaO2% (BldA) [Mass fraction] 98 % PA Chrystal Tesuque PA Work Phone: [facility] 08-08-2023 11:21-0400 Systolic blood pressure 116 mm[Hg] PA Chrystal Tesuque PA Work Phone: [facility] 07-26-2023 15:10-0400 Body mass index (BMI) [Ratio] 26.7 kg/m2 PA Chrystal Cally PA Work Phone: [facility] 07-26-2023 15:10-0400 Body weight 68.49 kg PA Chrystal Tesuque PA Work Phone: [facility] 07-26-2023 15:10-0400 Diastolic blood pressure 73 mm[Hg] PA Chrystal Cally PA Work Phone: [facility] 07-26-2023 15:10-0400 Systolic blood pressure 117 mm[Hg] PA Chrystal Cally PA Work Phone: [facility] 06-26-2023 15:14-0400 Body mass index (BMI) [Ratio] 26.2 kg/m2 PA Chrystal Cally PA Work Phone: [facility] 06-26-2023 15:14-0400 Body weight 64.86 kg PA Chrystal Tesuque PA Work Phone: [facility] 06-26-2023 15:14-0400 Diastolic blood pressure 69 mm[Hg] PA Chrystal Cally PA Work Phone: [facility] 06-26-2023 15:14-0400 Systolic blood pressure 116 mm[Hg] PA Chrystal Tesuque PA Work Phone: [facility] 05-27-2023 13:38-0400 Body height 157.48 cm PA Chrystal Tesuque PA Work Phone: [facility] 05-27-2023 13:38-0400 Body mass index (BMI) [Ratio] 24.9 kg/m2 PA Chrystal Cally PA Work Phone: [facility] 05-27-2023 13:38-0400 Body weight 61.74 kg PA Chrystal Cally PA Work Phone: [facility] 05-27-2023 13:38-0400 Diastolic blood pressure 73 mm[Hg] PA Chrystal Cally PA Work Phone: [facility] 05-27-2023 13:38-0400 Systolic blood pressure 121 mm[Hg] PA Chrystal Tesuque PA Work Phone: [facility] 03-14-2023 15:04-0400 Body height 157.5 cm Alexa Lancaster APRN-PROPOSAL DIRECTOR Work Phone: [facility] 03-14-2023 15:04-0400 Body mass index (BMI) [Ratio] 24.14 kg/m2 Alexa Lancaster APRN-PROPOSAL DIRECTOR Work Phone: [facility] 03-14-2023 15:04-0400 Body weight 59.88 kg Alexa Lancaster [employer]-PROPOSAL DIRECTOR Work Phone: [facility] 03-14-2023 15:04-0400 Diastolic blood pressure 65 mm[Hg] Alexa Lancaster HAR[employer]ST FI[employer] TICKETER-PROPOSAL DIRECTOR Work Phone: [facility] 03-14-2023 15:04-0400 Heart rate 86 /min Alexa Lancaster [employer] FI[employer]ER-PROPOSAL DIRECTOR Work Phone: [facility] 03-14-2023 15:04-0400 Systolic blood pressure 101 mm[Hg] Alexa Lancaster HAR[employer]ST FIELD TICKETER-PROPOSAL DIRECTOR Work Phone: [facility] 12-06-2022 13:21-0500 Body height 157.48 cm Chrystal Sorensen Cally Work Phone: [facility] [address] Work Phone: 12-06-2022 13:21-0500 Body mass index (BMI) [Ratio] 23.85 kg/m2 Chrystal Sorensen Tesuque Work Phone: [facility] [address] Work Phone: 12-06-2022 13:21-0500 Body surface area Derived from formula 1.59 m2 Chrystal Sorensen Tesuque Work Phone: [facility] [address] Work Phone: 12-06-2022 13:21-0500 Body weight 59.13 kg Chrystal Wrightenhall Work Phone: [facility] [address] Work Phone: 12-06-2022 13:21-0500 Diastolic blood pressure 70 mm[Hg] Chrystal Wrightenhall Work Phone: [facility] [address] Work Phone: 12-06-2022 13:21-0500 Systolic blood pressure 108 mm[Hg] Chrystal Wrightenhall Work Phone: [address] Work Phone: 09-24-2022 14:10-0500 Body height 157.48 cm Chrystal Alamo Work Phone: [facility] Work Phone: 09-24-2022 14:10-0500 Body mass index (BMI) [Ratio] 24.14 kg/m2 Chrystal Alamo Work Phone: [facility] Work Phone: 09-24-2022 14:10-0500 Body surface area Derived from formula 1.6 m2 Chrystal Alamo Work Phone: [facility] Work Phone: 09-24-2022 14:10-0500 Body weight 59.88 kg Chrystal Alamo Work Phone: [facility] Work Phone: 09-24-2022 14:10-0500 Diastolic blood pressure 78 mm[Hg] Chrystal Alamo Work Phone: [facility] Work Phone: 09-24-2022 14:10-0500 Heart rate 100 /min Chrystal Alamo Work Phone: [facility] Work Phone: 09-24-2022 14:10-0500 SaO2% (BldA) [Mass fraction] 97 % Chrystal Alamo Work Phone: [facility] Work Phone: 09-24-2022 14:10-0500 Systolic blood pressure 110 mm[Hg] Chrystal Alamo Work Phone: [facility] Work Phone: 03-05-2022 11:05-0400 Body height 157.48 cm Chrystal Alamo Work Phone: [address] Work Phone: 03-05-2022 11:05-0400 Body mass index (BMI) [Ratio] 28.4 kg/m2 Chrystal Alamo Work Phone: [address] Work Phone: 03-05-2022 11:05-0400 Body surface area Derived from formula 1.72 m2 Chrystal Alamo Work Phone: [address] Work Phone: 03-05-2022 11:05-0400 Body weight 70.42 kg Chrystal Alamo Work Phone: [address] Work Phone: 03-05-2022 11:05-0400 Diastolic blood pressure 78 mm[Hg] Chrystal Alamo Work Phone: [address] Work Phone: 03-05-2022 11:05-0400 Systolic blood pressure 118 mm[Hg] Chrystal Alamo Work Phone: [address] Work Phone: 02-13-2022 13:24-0400 Body height 157.48 cm Chrystal Alamo Work Phone: [facility] Work Phone: 02-13-2022 13:24-0400 Body mass index (BMI) [Ratio] 28.53 kg/m2 Chrystal Vallejoall Work Phone: [facility] Work Phone: 02-13-2022 13:24-0400 Body surface area Derived from formula 1.72 m2 Chrystal Alamo Work Phone: [facility] Work Phone: 02-13-2022 13:24-0400 Body weight 70.76 kg Chrystal Alamo Work Phone: [facility] Work Phone: 02-13-2022 13:24-0400 Diastolic blood pressure 62 mm[Hg] Chrystal Alamo Work Phone: [facility] Work Phone: 02-13-2022 13:24-0400 Heart rate 72 /min Chrystal Alamo Work Phone: [facility] Work Phone: 02-13-2022 13:24-0400 Systolic blood pressure 104 mm[Hg] Chrystal Alamo Work Phone: [facility] Work Phone: 01-12-2022 13:16-0400 Body height 157.48 cm Chrystal Alamo Work Phone: [facility] Work Phone: 01-12-2022 13:16-0400 Body mass index (BMI) [Ratio] 30.18 kg/m2 Chrystal Alamo Work Phone: [facility] Work Phone: 01-12-2022 13:16-0400 Body surface area Derived from formula 1.76 m2 Chrystal Alamo Work Phone: [facility] Work Phone: 01-12-2022 13:16-0400 Body weight 74.84 kg Chrystal Alamo Work Phone: [facility] Work Phone: 01-12-2022 13:16-0400 Diastolic blood pressure 64 mm[Hg] Chrystal Alamo Work Phone: [facility] Work Phone: 01-12-2022 13:16-0400 Heart rate 100 /min Chrystal Vallejoall Work Phone: [facility] Work Phone: 01-12-2022 13:16-0400 Systolic blood pressure 108 mm[Hg] Chrystal Vallejoall Work Phone: [facility] Work Phone: 12-19-2021 13:44-0500 Body height 157.48 cm Chrystal Vallejoall Work Phone: [place] [address] [place] Work Phone: 12-19-2021 13:44-0500 Body mass index (BMI) [Ratio] 30.52 kg/m2 Chrystal Vallejoall Work Phone: [address] Work Phone: 12-19-2021 13:44-0500 Body surface area Derived from formula 1.77 m2 Chrystal Vallejoall Work Phone: [place] [address] [place] Work Phone: 12-19-2021 13:44-0500 Body weight 75.7 kg Chrystal Alamo Work Phone: [place] [address] [place] Work Phone: 12-19-2021 13:44-0500 Diastolic blood pressure 80 mm[Hg] Chrystal Vallejoall Work Phone: [place] [address] [place] Work Phone: 12-19-2021 13:44-0500 Systolic blood pressure 102 mm[Hg] Chrystal Vallejoall Work Phone: [place] [address] [place] Work Phone: 11-10-2021 13:51-0500 Body height 157.48 cm Chrystal Alamo Work Phone: [place] [address] [place] Work Phone: 11-10-2021 13:51-0500 Body mass index (BMI) [Ratio] 35.73 kg/m2 Chrystal Alamo Work Phone: [place] [address] [place] Work Phone: 11-10-2021 13:51-0500 Body surface area Derived from formula 1.89 m2 Chrystal Alamo Work Phone: [place] [address] [place] Work Phone: 11-10-2021 13:51-0500 Body temperature 98.6 [degF] Chrystal Alamo Work Phone: [facility] [address] [place] Work Phone: 11-10-2021 13:51-0500 Body weight 88.6 kg Chrystal Alamo Work Phone: [facility] [address] [place] Work Phone: 11-10-2021 13:51-0500 Diastolic blood pressure 80 mm[Hg] Chrystal Alamo Work Phone: [place] [address] [place] Work Phone: 11-10-2021 13:51-0500 Systolic blood pressure 120 mm[Hg] Chrystal Alamo Work Phone: [place] [address] [place] Work Phone: 11-09-2021 13:41-0500 Body temperature 98.78 [degF] Chrystal Alamo Other Phone: [facility] 11-09-2021 13:41-0500 Diastolic blood pressure 76 mm[Hg] Chrystal Alamo Other Phone: [facility] 11-09-2021 13:41-0500 Heart rate 104 /min Chrystal Alamo Other Phone: [facility] 11-09-2021 13:41-0500 Respiratory rate 18 /min Chrystal Alamo Other Phone: [facility] 11-09-2021 13:41-0500 SaO2% (BldA) [Mass fraction] 99 % Chrystal Alamo Other Phone: [facility] 11-09-2021 13:41-0500 Systolic blood pressure 129 mm[Hg] Chrystal Alamo Other Phone: [facility] 10-31-2021 14:32-0500 Body height 157.48 cm Chrystal Alamo Work Phone: [place] [address] [place] Work Phone: 10-31-2021 14:32-0500 Body mass index (BMI) [Ratio] 37.18 kg/m2 Chrystal Alamo Work Phone: [place] [address] [place] Work Phone: 10-31-2021 14:32-0500 Body surface area Derived from formula 1.92 m2 Chrystal Alamo Work Phone: [place] [address] [place] Work Phone: 10-31-2021 14:32-0500 Body temperature 96.8 [degF] Chrystal Alamo Work Phone: [place] [address] [place] Work Phone: 10-31-2021 14:32-0500 Body weight 92.2 kg Chrystal Alamo Work Phone: [place] [address] [place] Work Phone: 10-31-2021 14:32-0500 Diastolic blood pressure 72 mm[Hg] Chrystal Alamo Work Phone: [place] [address] [place] Work Phone: 10-31-2021 14:32-0500 Systolic blood pressure 120 mm[Hg] Chrystal Edu Alamo Work Phone: [place] [address] [place] Work Phone: 10-24-2021 14:04-0500 Body height 157.48 cm Chrystal Alamo Work Phone: [place] [address] [place] Work Phone: 10-24-2021 14:04-0500 Body mass index (BMI) [Ratio] 36.85 kg/m2 Chrystal Alamo Work Phone: [place] [address] [place] Work Phone: 10-24-2021 14:04-0500 Body surface area Derived from formula 1.92 m2 Chrystal Alamo Work Phone: [place] [address] [place] Work Phone: 10-24-2021 14:04-0500 Body temperature 97.1 [degF] Chrystal Alamo Work Phone: [place] [address] [place] Work Phone: 10-24-2021 14:04-0500 Body weight 91.4 kg Chrystal Alamo Work Phone: [place] [address] [place] Work Phone: 10-24-2021 14:04-0500 Diastolic blood pressure 76 mm[Hg] Chrystal Alamo Work Phone: [place] [address] [place] Work Phone: 10-24-2021 14:04-0500 Systolic blood pressure 120 mm[Hg] Chrystal Alamo Work Phone: [place] [address] [place] Work Phone: 09-29-2021 13:00-0500 Body height 157.48 cm Chrystal Alamo Work Phone: [place] [address] [place] Work Phone: 09-29-2021 13:00-0500 Body mass index (BMI) [Ratio] 34.48 kg/m2 Chrystal Alamo Work Phone: [place] [address] [place] Work Phone: 09-29-2021 13:00-0500 Body surface area Derived from formula 1.86 m2 Chrystal Vallejoall Work Phone: [place] [address] [place] Work Phone: 09-29-2021 13:00-0500 Body temperature 96.9 [degF] Chrystal Vallejoall Work Phone: [place] [id number] [place] Work Phone: 09-29-2021 13:00-0500 Body weight 85.5 kg Chrystal Vallejoall Work Phone: [place] [address] [place] Work Phone: 09-29-2021 13:00-0500 Diastolic blood pressure 60 mm[Hg] Chrystal Vallejoall Work Phone: [place] [address] [place] Work Phone: 09-29-2021 13:00-0500 Systolic blood pressure 120 mm[Hg] Chrystal Alamo Work Phone: [place] [address] [place] Work Phone: 09-18-2021 15:35-0500 Body height 157.48 cm Chrystal Alamo Work Phone: [place] [address] [place] Work Phone: 09-18-2021 15:35-0500 Body mass index (BMI) [Ratio] 35.28 kg/m2 Chrystal Vallejoall Work Phone: [place] [address] [place] Work Phone: 09-18-2021 15:35-0500 Body surface area Derived from formula 1.88 m2 Chrystal Vallejoall Work Phone: [place] [address] [place] Work Phone: 09-18-2021 15:35-0500 Body temperature 96.8 [degF] Chrystal Vallejoall Work Phone: [place] [address] [place] Work Phone: 09-18-2021 15:35-0500 Body weight 87.5 kg Chrystal Alamo Work Phone: [place] [address] [place] Work Phone: 09-18-2021 15:35-0500 Diastolic blood pressure 70 mm[Hg] Chrystal Alamo Work Phone: [place] [address] [place] Work Phone: 09-18-2021 15:35-0500 Systolic blood pressure 120 mm[Hg] Chrystal Alamo Work Phone: [place] [address] [place] Work Phone: 09-05-2021 08:27-0500 Body height 157.48 cm Chrystal Alamo Work Phone: [place] [address] [place] Work Phone: 09-05-2021 08:27-0500 Body mass index (BMI) [Ratio] 34.52 kg/m2 Chrystal Alamo Work Phone: [place] [address] [place] Work Phone: 09-05-2021 08:27-0500 Body surface area Derived from formula 1.86 m2 Chrystal Alamo Work Phone: [place] [address] [place] Work Phone: 09-05-2021 08:27-0500 Body temperature 95.7 [degF] Chrystal Alamo Work Phone: [place] [address] [place] Work Phone: 09-05-2021 08:27-0500 Body weight 85.6 kg Chrystal Alamo Work Phone: [place] [address] [place] Work Phone: 09-05-2021 08:27-0500 Diastolic blood pressure 62 mm[Hg] Chrystal Alamo Work Phone: [place] [address] [place] Work Phone: 09-05-2021 08:27-0500 Systolic blood pressure 100 mm[Hg] Chrystal Alamo Work Phone: [place] [address] [place] Work Phone: 08-21-2021 10:24-0500 Body height 157.48 cm Chrystal Alamo Work Phone: [place] [address] [place] Work Phone: 08-21-2021 10:24-0500 Body mass index (BMI) [Ratio] 33.27 kg/m2 Chrystal Alamo Work Phone: [place] [address] [place] Work Phone: 08-21-2021 10:24-0500 Body surface area Derived from formula 1.84 m2 Chrystal Alamo Work Phone: [place] [address] [place] Work Phone: 08-21-2021 10:24-0500 Body temperature 97.5 [degF] Chrystal Alamo Work Phone: [place] [address] [place] Work Phone: 08-21-2021 10:24-0500 Body weight 82.5 kg Chrystal Alamo Work Phone: [place] [address] [place] Work Phone: 08-21-2021 10:24-0500 Diastolic blood pressure 60 mm[Hg] Chrystal Vallejoall Work Phone: [place] [address] [place] Work Phone: 08-21-2021 10:24-0500 Systolic blood pressure 98 mm[Hg] Chrystal Alamo Work Phone: [place] [address] [place] Work Phone: 07-24-2021 16:04-0400 Body height 157.48 cm Chrystal Vallejoall Work Phone: [place] [address] [place] Work Phone: 07-24-2021 16:04-0400 Body mass index (BMI) [Ratio] 30.85 kg/m2 Chrystal Vallejoall Work Phone: [place] [address] [place] Work Phone: 07-24-2021 16:04-0400 Body surface area Derived from formula 1.78 m2 Chrystal Vallejoall Work Phone: [place] [address] [place] Work Phone: 07-24-2021 16:04-0400 Body temperature 98.2 [degF] Chrystal Vallejoall Work Phone: [place] [address] [place] Work Phone: 07-24-2021 16:04-0400 Body weight 76.5 kg Chrystal Vallejoall Work Phone: [place] [address] [place] Work Phone: 07-24-2021 16:04-0400 Diastolic blood pressure 68 mm[Hg] Chrystal Vallejoall Work Phone: [place] [address] [place] Work Phone: 07-24-2021 16:04-0400 Systolic blood pressure 100 mm[Hg] Chrystal Vallejoall Work Phone: [place] [address] [place] Work Phone: 07-19-2021 15:40-0400 Body height 157.48 cm Chrystal Vallejoall Work Phone: [place] [address] [place] Work Phone: 07-19-2021 15:40-0400 Body mass index (BMI) [Ratio] 31.09 kg/m2 Chrystal Vallejoall Work Phone: [place] [address] [place] Work Phone: 07-19-2021 15:40-0400 Body surface area Derived from formula 1.78 m2 Chrystal Alamo Work Phone: [place] [address] [place] Work Phone: 07-19-2021 15:40-0400 Body temperature 98.2 [degF] Chrystal Vallejoall Work Phone: [place] [address] [place] Work Phone: 07-19-2021 15:40-0400 Body weight 77.1 kg Chrystal Alamo Work Phone: [place] [address] [place] Work Phone: 07-19-2021 15:40-0400 Diastolic blood pressure 70 mm[Hg] Chrystal Vallejoall Work Phone: [place] [address] [place] Work Phone: 07-19-2021 15:40-0400 Systolic blood pressure 120 mm[Hg] Chrystal Alamo Work Phone: [facility] [place] [address] [place] Work Phone: 06-26-2021 14:56-0400 Body height 157.48 cm Chrystal Alamo Work Phone: [place] [address] [place] Work Phone: 06-26-2021 14:56-0400 Body mass index (BMI) [Ratio] 28.53 kg/m2 Chrystal Vallejoall Work Phone: [place] [address] [place] Work Phone: 06-26-2021 14:56-0400 Body surface area Derived from formula 1.72 m2 Chrystal Vallejoall Work Phone: [facility] TechnologiesMichel[place] [address] [place] Work Phone: 06-26-2021 14:56-0400 Body temperature 98 [degF] Chrystal Alamo Work Phone: [place] [address] [place] Work Phone: 06-26-2021 14:56-0400 Body weight 70.76 kg Chrystal Alamo Work Phone: [employer] [place] [address] [place] Work Phone: 06-26-2021 14:56-0400 Diastolic blood pressure 60 mm[Hg] Chrystal Alamo Work Phone: [place] [address] [facility] [employer] Work Phone: 06-26-2021 14:56-0400 Systolic blood pressure 112 mm[Hg] Chrystal Alamo Work Phone: [place] [address] [facility] Work Phone: 06-15-2021 18:43-0400 Body height 160 cm Chrystal Vallejoall Other Phone: [facility] 06-15-2021 18:43-0400 Body temperature 98.6 [degF] Chrystal Alamo Other Phone: [facility] 06-15-2021 18:43-0400 Diastolic blood pressure 55 mm[Hg] Chrystal Vallejoall Other Phone: [facility] 06-15-2021 18:43-0400 Heart rate 128 /min Chrystal Alamo Other Phone: [facility] 06-15-2021 18:43-0400 SaO2% (BldA) [Mass fraction] 98 % Chrystal Cally Other Phone: [facility] 06-15-2021 18:43-0400 Systolic blood pressure 98 mm[Hg] Chrystal Tesuque Other Phone: [facility] 05-29-2021 15:12-0400 Body height 157.48 cm Chrystal Alamo Work Phone: [place] [address] [place] Work Phone: 05-29-2021 15:12-0400 Body mass index (BMI) [Ratio] 27.14 kg/m2 Chrystal Alamo Work Phone: [place] [address] [place] Work Phone: 05-29-2021 15:12-0400 Body surface area Derived from formula 1.68 m2 Chrystal Alamo Work Phone: [place] [address] [place] Work Phone: 05-29-2021 15:12-0400 Body temperature 97.7 [degF] Chrystal Alamo Work Phone: [place] [address] [place] Work Phone: 05-29-2021 15:12-0400 Body weight 67.3 kg Chrystal Alamo Work Phone: [place] [address] [place] Work Phone: 05-29-2021 15:12-0400 Diastolic blood pressure 72 mm[Hg] Chrystal Alamo Work Phone: [place] [address] [place] Work Phone: 05-29-2021 15:12-0400 Systolic blood pressure 112 mm[Hg] Chrystal Alamo Work Phone: [place] [address] [place] Work Phone: 05-01-2021 15:12-0400 Body height 157.48 cm Chrystal Vallejoall Work Phone: [place] [address] [place] Work Phone: 05-01-2021 15:12-0400 Body mass index (BMI) [Ratio] 24.4 kg/m2 Chrystal Alamo Work Phone: [place] [address] [place] Work Phone: 05-01-2021 15:12-0400 Body surface area Derived from formula 1.61 m2 Chrystal Alamo Work Phone: [place] [address] [place] Work Phone: 05-01-2021 15:12-0400 Body temperature 97.3 [degF] Chrystal Alamo Work Phone: [place] [address] [place] Work Phone: 05-01-2021 15:12-0400 Body weight 60.5 kg Chrystal Alamo Work Phone: [address] Work Phone: 05-01-2021 15:12-0400 Diastolic blood pressure 64 mm[Hg] Chrystal Alamo Work Phone: [address] Work Phone: 05-01-2021 15:12-0400 Systolic blood pressure 108 mm[Hg] Chrystal Alamo Work Phone: [address] Work Phone: 04-25-2021 13:30-0400 Body height 157.48 cm Chrystal Alamo Work Phone: [facility] Work Phone: 04-25-2021 13:30-0400 Body mass index (BMI) [Ratio] 24.14 kg/m2 Chrystal Alamo Work Phone: [facility] Work Phone: 04-25-2021 13:30-0400 Body surface area Derived from formula 1.6 m2 Chrystal Alamo Work Phone: [facility] Work Phone: 04-25-2021 13:30-0400 Body weight 59.87 kg Chrystal Alamo Work Phone: [facility] Work Phone: 04-25-2021 13:30-0400 Diastolic blood pressure 62 mm[Hg] Chrystal Alamo Work Phone: [facility] Work Phone: 04-25-2021 13:30-0400 Heart rate 84 /min Chrystal Alamo Work Phone: [facility] Work Phone: 04-25-2021 13:30-0400 Systolic blood pressure 124 mm[Hg] Chrystal Alamo Work Phone: [facility] Work Phone: 04-03-2021 15:08-0400 Body height 157.48 cm Chrystal Alamo Work Phone: [place] [address] [place] Work Phone: 04-03-2021 15:08-0400 Body mass index (BMI) [Ratio] 23.39 kg/m2 Chrystal Alamo Work Phone: [place] [address] [place] Work Phone: 04-03-2021 15:08-0400 Body surface area Derived from formula 1.58 m2 Chrystal Alamo Work Phone: [place] [address] [place] Work Phone: 04-03-2021 15:08-0400 Body temperature 97.5 [degF] Chrystal Alamo Work Phone: [place] [address] [place] Work Phone: 04-03-2021 15:08-0400 Body weight 58 kg Chrystal Alamo Work Phone: [place] [address] [place] Work Phone: 04-03-2021 15:08-0400 Diastolic blood pressure 62 mm[Hg] Chrystal Alamo Work Phone: [place] [address] [place] Work Phone: 04-03-2021 15:08-0400 Systolic blood pressure 110 mm[Hg] Chrystal Vallejoall Work Phone: [employer] [place] [address] [place] Work Phone: 03-20-2021 13:31-0400 Body height 157.48 cm Chrystal Alamo Work Phone: [facility] Work Phone: 03-20-2021 13:31-0400 Body mass index (BMI) [Ratio] 22.94 kg/m2 Chrystal Alamo Work Phone: [place] [address] [place] Work Phone: 03-20-2021 13:31-0400 Body surface area Derived from formula 1.57 m2 Chrystal Alamo Work Phone: [facility] Work Phone: 03-20-2021 13:31-0400 Body temperature 98 [degF] Chrystal Alamo Work Phone: [place] [address] [place] Work Phone: 03-20-2021 13:31-0400 Body weight 56.9 kg Chrystal Alamo Work Phone: [facility] Work Phone: 03-20-2021 13:31-0400 Diastolic blood pressure 62 mm[Hg] Chrystal Vallejoall Work Phone: [place] [address] [place] Work Phone: 03-20-2021 13:31-0400 Systolic blood pressure 112 mm[Hg] Chrystal Vallejoall Work Phone: [place] [address] [place] Work Phone: 11-11-2020 10:53-0500 BMI (Body Mass Index) 22.42 kg/m2 Alexa Beyer [facility] Work Phone: 11-11-2020 10:53-0500 Body Temperature 96.6 [degF] Alexa Beyer [facility] Work Phone: 11-11-2020 10:53-0500 Body weight 55.61 kg Alexa Beyer [facility] Work Phone: 11-11-2020 10:53-0500 BP Diastolic 68 mm[Hg] Alexa Beyer [facility] Work Phone: 11-11-2020 10:53-0500 BP Systolic 106 mm[Hg] Alexa Beyer [facility] Work Phone: 11-11-2020 10:53-0500 BSA (Body Surface Area) 1.55 m2 Alexa Beyer [facility] Work Phone: 11-11-2020 10:53-0500 Height 157.48 cm Alexa Beyer [facility] Work Phone: 11-11-2020 10:53-0500 Pulse (Heart Rate) 115 /min Alexa Beyer [facility] Work Phone: 11-11-2020 10:53-0500 Pulse Oximetry 98 % Alexa Beyer [facility] Work Phone: 10-31-2020 18:57-0500 BP Diastolic 74 mm[Hg] [facility] [place] 10-31-2020 18:57-0500 BP Systolic 125 mm[Hg] [facility] [place] 10-31-2020 18:57-0500 Pulse (Heart Rate) 95 /min [facility] [employer] [facility] 10-31-2020 18:57-0500 Pulse Oximetry 99 % [facility] [place] 10-31-2020 18:57-0500 Respiratory Rate 16 /min [facility] [employer] [facility] 10-31-2020 16:27-[address] [facility] [place] 10-31-2020 16:26-0500 Body Temperature 98.2 [degF] [facility] stem Encounters Encounter Date Encounter Type Care Provider Facility Start: 05-13-2025 End: 05-13-[address] Esme Baker MD -[facility] Work Phone: Start: 05-13-2025 End: 05-13-2025 ambulatory Chrystal Alamo PA Work Phone: -[facility] Start: 04-30-2025 End: 04-30-[address] Esme Baker MD -[facility] Work Phone: Start: 04-30-2025 End: 04-30-2025 ambulatory Chrystalann-marie Alamo PA Work Phone: -[facility] Start: 04-06-2025 End: 04-06-2025 Admission to same day surgery center Dr. Esme Baker MD -[facility] Start: 04-06-2025 End: 04-06-2025 ambulatory Chrystalann-marie Alamo PA Work Phone: [facility] Work Phone: Start: 04-06-2025 Non-patient / Non-visit Dr. Luciano Baker MD -[facility] Start: 04-05-2025 End: 04-05-2025 ambulatory Chrystalann-marie Alamo PA Work Phone: -Laboratory Specimen Start: 04-05-2025 End: 04-05-[address] Brandi Freeman DO -Laboratory Specimen Work Phone: Start: 04-05-2025 End: 04-05-[address] Brandi Freeman DO -[facility] Work Phone: Start: 04-05-2025 End: 04-05-2025 ambulatory Chrystal Alamo PA Work Phone: [facility] Work Phone: Start: 04-05-2025 End: 04-05-2025 ambulatory Brandi Freeman Facility:[facility] Start: 03-11-2025 End: 03-11-[address] Anson Richter MD -[facility] Work Phone: Start: 03-11-2025 End: 03-11-2025 ambulatory Chrystal Alamo PA Work Phone: [facility] Work Phone: Start: 03-11-2025 End: 03-11-2025 ambulatory Chrystal Alamo PA Facility:[facility] Start: 01-05-2025 End: 01-05-2025 Office outpatient visit 25 minutes Chrystal Alamo PA-C Work Phone: [facility] Comment on above: Acute pain of right shoulder (Primary Dx); Vitamin D deficiency; Iron deficiency anemia, unspecified iron deficiency anemia type; Sivan's thyroiditis; Acute right-sided thoracic back pain Start: 01-05-2025 End: 01-05-2025 ambulatory [facility] Start: 12-25-2024 End: 12-25-2024 Emergency department patient visit [facility] Start: 12-24-2024 End: 12-24-2024 ambulatory Chrystal Alamo PA Work Phone: [facility] Work Phone: Start: 12-24-2024 End: 12-24-[address] Esme Baker MD -[facility] Work Phone: Start: 12-24-2024 End: 12-24-2024 ambulatory Chrystal Alamo PA Facility:[facility] Start: 12-22-2024 End: 12-22-[address] Esme Baker MD -[facility] Work Phone: Start: 12-22-2024 End: 12-22-2024 ambulatory Chrystal Alamo PA Work Phone: [facility] Work Phone: Start: 12-22-2024 End: 12-22-2024 ambulatory Chrystal Alamo PA Facility:[facility] Start: 11-24-2024 End: 11-24-2024 Office outpatient visit 25 minutes Chrystal ACEVEDO-C Work Phone: [facility] Comment on above: Fatigue, unspecified type (Primary Dx); Sivan's thyroiditis; Iron deficiency anemia, unspecified iron deficiency anemia type; Diet controlled gestational diabetes mellitus (GDM) in third trimester ([facility]); Pain of left heel; Acute pain of left foot; Acute left ankle pain; Mild persistent asthma without complication ([facility]) Start: 11-24-2024 End: 11-24-2024 ambulatory [facility] Start: 09-14-2024 End: 09-14-[address] Anson Richter MD -Laboratory Work Phone: Start: 09-14-2024 End: 09-14-2024 ambulatory Chrystal ACEVEDO Facility:[facility] Start: 08-06-2024 End: 08-06-2024 Office outpatient new 30 minutes Roe ACEVEDO-C Work Phone: [facility] Comment on above: Dysuria (Primary Dx) Start: 08-06-2024 End: 08-06-2024 ambulatory [facility] Start: 07-09-2024 End: 07-09-2024 ambulatory Chrystal Alamo PA Facility:[facility] Start: 06-03-2024 End: 06-03-2024 ambulatory Chrystal Alamo PA Facility:[facility] Start: 02-26-2024 End: 02-27-2024 ambulatory [facility] Start: 01-21-2024 End: 01-21-2024 ambulatory PA Chrystal Alamo PA Work Phone: [facility] Work Phone: Start: 01-21-2024 End: 01-21-2024 Patient encounter procedure PA Chrystal ACEVEDO Work Phone: [facility]Labor[facility], Specimen Work Phone: Start: 01-21-2024 End: 01-21-2024 Patient encounter procedure PA Chrystal Alamo PA Work Phone: [facility] Work Phone: Start: 01-02-2024 End: 01-02-2024 Patient encounter procedure PA Chrystal Alamo PA Work Phone: [facility] Work Phone: Start: 12-18-2023 Non-patient / Non-visit PA Robert Alamo PA Work Phone: [facility] Start: 12-18-2023 End: 12-18-2023 ambulatory PA Chrystal Alamo PA Work Phone: [facility] Work Phone: Start: 12-18-2023 End: 12-18-2023 Patient encounter procedure PA [facility]amo [facility] Work Phone: Start: 12-15-2023 End: 12-15-2023 Patient encounter procedure PA Chrystal Alamo PA Work Phone: [facility] Work Phone: Start: 12-14-2023 Non-patient / Non-visit PA Robert Vallejoall PA Work Phone: [facility] Start: 12-13-2023 Non-patient / Non-visit PA Robert Vallejoall PA Work Phone: [facility] Start: 12-12-2023 End: 12-14-2023 Evaluation and management of inpatient PA Chrystal Alamo PA Work Phone: [facility] Work Phone: Start: 12-12-2023 End: 12-12-2023 Patient encounter procedure PA Chrystal Alamo PA Work Phone: [facility] Work Phone: Start: 12-05-2023 End: 12-05-2023 Patient encounter procedure PA Chrystal Alamo PA Work Phone: [facility] Work Phone: Start: 12-05-2023 End: 12-05-2023 Patient encounter procedure PA Chrystal Alamo PA Work Phone: [facility] Work Phone: Start: 11-27-2023 Non-patient / Non-visit PA Robert Alamo PA Work Phone: [facility] Start: 11-27-2023 End: 11-27-2023 ambulatory PA Chrystal Alamo PA Work Phone: [facility] Work Phone: Start: 11-27-2023 End: 11-27-2023 Patient encounter procedure PA Chrystal Alamo PA [facility] Work Phone: Start: 11-26-2023 End: 11-26-2023 Patient encounter procedure PA Chrystal Alamo PA Work Phone: [facility] Work Phone: Start: 11-14-2023 End: 11-14-2023 Patient encounter procedure PA Chrystal Alamo PA Work Phone: [facility] Work Phone: Start: 11-06-2023 End: 11-13-2023 ambulatory PA Chrystal Alamo PA Work Phone: [facility] Work Phone: Start: 11-06-2023 End: 11-13-2023 Discharged Recurring CURTIS ACEVEDO Work Phone: [facility] Work Phone: Start: 10-30-2023 End: 10-30-2023 Patient encounter procedure CURTIS ACEVEDO Work Phone: [facility] Work Phone: Start: 10-23-2023 End: 10-23-2023 ambulatory PA Chrystla ACEVEDO Work Phone: [facility] Work Phone: Start: 10-23-2023 End: 10-23-2023 Patient encounter procedure CURTIS ACEVEDO Work Phone: [facility] Work Phone: Start: 10-18-2023 End: 10-18-2023 Office outpatient visit 25 minutes Alexa Lancaster APRN-PROPOSAL DIRECTOR Work Phone: [facility] Comment on above: Acute non-recurrent maxillary sinusitis (Primary Dx); Nasal congestion Start: 10-18-2023 End: 10-18-2023 Patient encounter procedure CURTIS ACEVEDO Work Phone: [facility] Work Phone: Start: 10-17-2023 End: 10-17-2023 Patient encounter procedure CURTIS ACEVEDO Work Phone: [facility] Work Phone: Start: 10-16-2023 End: 10-16-2023 Emergency department patient visit CURTIS ACEVEDO Work Phone: [facility] Work Phone: Start: 10-03-2023 End: 10-03-2023 ambulatory PA Chrystal ACEVEDO Work Phone: [facility] Work Phone: Start: 10-03-2023 End: 10-03-2023 Patient encounter procedure PA Chrystal Vallejoall PA Work Phone: [facility] Work Phone: Start: 09-16-2023 End: 09-16-2023 ambulatory PA Chrystal Vallejoall PA Work Phone: [facility] Work Phone: Start: 09-16-2023 End: 09-16-2023 Patient encounter procedure PA Chrystal Alamo PA Work Phone: [facility] Work Phone: Start: 08-08-2023 End: 08-08-2023 ambulatory PA Chrystal Alamo PA Work Phone: [facility] Work Phone: Start: 08-08-2023 End: 08-08-2023 Patient encounter procedure PA Chrystal Alamo PA Work Phone: [facility] Work Phone: Start: 07-26-2023 End: 07-26-2023 Patient encounter procedure PA Chrystal Alamo PA Work Phone: [facility] Work Phone: Start: 06-26-2023 End: 06-26-2023 Patient encounter procedure PA Chrystal Alamo PA Work Phone: [facility] Work Phone: Start: 05-27-2023 End: 05-27-2023 ambulatory PA Chrystal Vallejoall PA Work Phone: [facility] Work Phone: Start: 05-27-2023 End: 05-27-2023 Patient encounter procedure PA Chrystal Vallejoall PA Work Phone: [facility] Start: 05-27-2023 End: 05-27-2023 Patient encounter procedure PA Chrystal Cally PA Work Phone: [facility] Work Phone: Start: 2023 End: 04-21-2023 ambulatory [facility] Start: 04-17-2023 End: 04-18-2023 ambulatory [facility] Start: 03-20-2023 End: 03-20-2023 Office outpatient visit 25 minutes Alexa Lancaster HARVEST FIELD TICKETER-PROPOSAL DIRECTOR Work Phone: [facility] Comment on above: Iron deficiency anem ia, unspecified iron deficiency anemia type (Primary Dx); Sivan's thyroiditis Start: 03-19-2023 End: 03-20-2023 ambulatory [facility] Start: 03-14-2023 End: 03-14-2023 Office outpatient visit 25 minutes Alexa Lancaster HARVEST FIELD TICKETER-PROPOSAL DIRECTOR Work Phone: [facility] Comment on above: Abscess (Primary Dx) ; Low thyroid stimulating hormone (TSH) level; Iron deficiency anemia, unspecified iron deficiency anemia type Start: 02-08-2023 End: 02-08-2023 Office outpatient visit 15 minutes Alexa Lancaster HARVEST FIELD TICKETER-PROPOSAL DIRECTOR Work Phone: [facility] Comment on above: Genital herpes simpl ex, unspecified site (Primary Dx) Start: 01-31-2023 ambulatory Ms. Rivera Sobia Alamo Facility:[id number] Start: 12-06-2022 Periodic preventive med est patient 18-39 yrs Chrystal Alamo Work Phone: [address] Work Phone: Start: 12-06-2022 ambulatory Ms. Rochelle Boyer Fa cility:[id number] Start: 10-17-2022 Office outpatient vi sit 15 minutes Chrystal Alamo Work Phone: [facility] Work Phone: Start: 10-17-2022 ambulatory ZOIE ALAMO Facility:[id number] Start: 09-27-2022 Chart Update Chrystal Sorensen Sharon nhall Work Phone: [facility] Work Phone: Start: 09-25-2022 Chart Update Chrystal Edu Herrera nhall Work Phone: [facility] Work Phone: Start: 09-24-2022 ambulatory PA-C CHRYSTAL ALAMO Facility:[id number] Start: 09-24-2022 Office outpatient vi sit 25 minutes Chrystal Vallejoall Work Phone: [facility] Work Phone: Start: 04-25-2022 ambulatory PA-C CHRYSTAL Sorensen CALLY Facility:[id number] Start: 03-22-2022 Chart Update Chrystal Sorensen Sharon nhall Work Phone: [facility] Work Phone: Start: 03-09-2022 Chart Update Chrystal Sorensen Sharon nhall Work Phone: [facility] [address] Work Phone: Start: 03-06-2022 Chart Update Chrystal Sorensen Sharon cast Work Phone: [facility] [address] Work Phone: Start: 03-05-[address] Tayler Santiago Facility:[id number] Start: 02-13-2022 ambulatory PA-C CHRYSTAL Sorensen CALLY Facility:[id number] Start: 02-13-2022 Office outpatient vi sit 25 minutes Chrystal Sorensen [place] Work Phone: [facility] Work Phone: Start: 02-01-2022 Telephone encounter Chrystal varghese Work Phone: [facility] Work Phone: Start: 01-24-2022 AUDIT Chrystal Herrera justoirving Work Phone: [employer] [address] Work Phone: Start: 01-12-2022 ambulatory Ms. Kayleigh Chawla Facility:[id number] Start: 01-12-2022 Office outpatient vi sit 15 minutes Chrystal Edu Cally Work Phone: [facility] Work Phone: Start: 01-01-2022 Chart Update Chrystal cast Work Phone: [facility] Work Phone: Start: 12-29-2021 Office outpatient vi sit 15 minutes Chrystal Alamo Work Phone: [facility] Work Phone: Start: 12-19-2021 Patient encounter procedure Chrystal Edu Cally Work Phone: [place] [address] [place] Work Phone: Start: 12-03-2021 Chart Update Chrystal Edu Sharon cast Work Phone: [facility] Work Phone: Start: 11-10-2021 Office outpatient vi sit 10 minutes Chrystal Sorensen Cally Work Phone: [facility] [address] [place] Work Phone: Start: 11-07-2021 End: 11-09-2021 [facility] Start: 10-31-2021 Office outpatient vi sit 10 minutes Chrystal Edu Cally Work Phone: [place] [address] [place] Work Phone: Start: 10-16-2021 Office outpatient vi sit 10 minutes Chrystal Sorensen Cally Work Phone: [facility] [address] [address] Work Phone: Start: 09-22-2021 AUDIT Chrystal Wrightploo cast Work Phone: [facility] Work Phone: Start: 09-21-2021 AUDIT Chrystal cast Work Phone: [facility] [address] Work Phone: Start: 09-18-2021 Patient encounter procedure Chrystal Alamo Work Phone: [facility] [address] Work Phone: Start: 09-05-2021 Office outpatient vi sit 10 minutes Chrystal Alamo Work Phone: [facility] [address] Work Phone: Start: 08-21-2021 AUDIT Chrystal cast Work Phone: [facility] [address] Work Phone: Start: 08-21-2021 Office outpatient vi sit 10 minutes Chrystal Alamo Work Phone: [facility] [address] Work Phone: Start: 07-24-2021 Office outpatient vi sit 15 minutes Chrystal Alamo Work Phone: [facility] [address] Work Phone: Start: 07-21-2021 Chart Update Chrystal cast Work Phone: [facility] [address] Work Phone: Start: 07-19-2021 Office outpatient vi sit 10 minutes Chrystal Alamo Work Phone: [facility] [address] Work Phone: Start: 06-27-2021 Chart Update Chrystal cast Work Phone: [facility] [address] Work Phone: Start: 06-26-2021 Office outpatient vi sit 10 minutes Chrystal Alamo Work Phone: [facility] [address] Work Phone: Start: 06-15-2021 End: 06-15-2021 Emergency department patient visit Ferny Rooney [facility] Start: 05-29-2021 EPVOB, Provider: Paulino Christian, Status: Pen, Time: 3:15 PM Chrystal Wrightenhall Work Phone: [facility] [address] Work Phone: Start: 05-29-2021 Office outpatient vi sit 10 minutes Chrystal Wrightenhall Work Phone: [facility] [address] Work Phone: Start: 05-28-2021 AUDIT Chrystal Herrera nhall Work Phone: [facility] [address] Work Phone: Start: 05-15-2021 Chart Update Chrystal Herrera nhall Work Phone: [facility] [address] Work Phone: Start: 05-08-2021 Chart Update Chrystal Herrera nhall Work Phone: [facility] [address] Work Phone: Start: 05-03-2021 Chart Update Chrystal Herrera nhall Work Phone: [facility] [address] Work Phone: Start: 05-02-2021 Chart Update Chrystal Herrera nhall Work Phone: [facility] [address] Work Phone: Start: 05-02-2021 Chart Update Chrystal Herrera nhall Work Phone: [facility] [address] Work Phone: Start: 05-01-2021 Office outpatient vi sit 15 minutes Chrystal Edu [place] Work Phone: [facility] [address] Work Phone: Start: 04-25-2021 Office outpatient vi sit 15 minutes Chrystal Alamo Work Phone: [facility] Work Phone: Start: 04-25-2021 Patient encounter procedure Chrystal Alamo Work Phone: [facility] Work Phone: Start: 04-03-2021 Office outpatient vi sit 15 minutes Chrystal Edu Alamo Work Phone: [employer] Work Phone: Start: 03-20-2021 Office outpatient ne w 30 minutes Chrystal Alamo Work Phone: [employer] Work Phone: Start: 11-22-2020 Patient encounter procedure Alexa Beyer [facility] Work Phone: Start: 11-16-2020 Patient encounter procedure Alexa Beyer [facility] Work Phone: Start: 11-11-2020 Patient encounter procedure Alexa Beyer [facility] Work Phone: Start: 10-31-2020 End: 10-31-2020 Emergency department patient visit Robert Linares Work Phone: [facility] Start: 11-24-2019 Patient encounter procedure Chrystal Alamo [facility] Work Phone: Start: 10-29-2019 Patient encounter procedure Chrystal Alamo [facility] Work Phone: Start: 12-28-2018 End: 12-29-2018 [facility] Cancer cervix - screening done Chrystal Sorensen Cally Work Phone: [employer] Work Phone: Comment on above: 05/01/2021; NIL; Encounter for gynecological examination (general) (routine) without abnormal findings Chrystal Vallejoall Work Phone: [employer] Work Phone: Comment on above: 05/01/2021; NIL; Patient encounter status Chrystal Alamo Work Phone: [place] [address] [address] Work Phone: Procedures Date Procedure Procedure Detail Performing Clinician Start: 04-06-2025 Dilation and curetta ge of uterus Chrystal ACEVEDO Work Phone: Start: 04-06-2025 Endomysial antibody IgA level Chrystal ACEVEDO Work Phone: Start: 04-06-2025 Total iron binding c apacity measurement Chrystal ACEVEDO Work Phone: Start: 04-05-2025 Methadone measurement, urine Chrystal ACEVEDO Work Phone: Start: 04-05-2025 Urine culture Chrystal ACEVEDO Work Phone: Start: 03-11-2025 Vitamin D, 25-hydrox y measurement Chrystal ACEVEDO Work Phone: Comment on above: Vitamin D StatusDefi ciency: <20 ng/mL (50nmol/L)Insufficiency: 20-30 ng/mL (50-75 nmol/L)Sufficiency: 30-100 ng/mL (75-250 nmol/L)Toxicity: >100 ng/mL (>250 nmol/L) Start: 12-24-2024 Pelvic echography Angie ACEVEDO Work Phone: Start: 12-22-2024 Vitamin D, 25-hydrox y measurement Chrystal ACEVEDO Work Phone: Comment on above: Vitamin D StatusDefi ciency: <20 ng/mL (50nmol/L)Insufficiency: 20-30 ng/mL (50-75 nmol/L)Sufficiency: 30-100 ng/mL (75-250 nmol/L)Toxicity: >100 ng/mL (>250 nmol/L) Start: 11-25-2024 Thyrotropin [Units/v olume] in Serum or Plasma Chrystal Alamo PA-C Work Phone: Start: 08-06-2024 POCT UA AUTOMATED MA NUALLY RESULTED Roe Allan PA-C Work Phone: Start: 02-26-2024 CBC W Auto Different ial panel - Blood CHRYSTAL ALAMO Start: 02-26-2024 Comprehensive metabo lic 2000 panel - Serum or Plasma CHRYSTAL ALAMO Start: 02-26-2024 Cyanocobalamin vitamin b-12 CHRYSTAL ALAMO Start: 02-26-2024 IRON AND TIBC CHRYSTAL DIXON NDENHIRVING Start: 02-26-2024 THYROXINE, FREE CHRYSTAL ALAMO Start: [...] 04-17-2023 HUMAN CHORIONIC GONA DOTROPIN, SERUM QUANTITATIVE HCRYSTAL ALAMO Start: 04-17-2023 IRON AND TIBC CHRYSTAL [...] ALAMO Start: 03-19-2023 IRON AND TIBC CHRYSTAL GIRON Start: 03-19-2023 Lipid panel CHRYSTAL HOLDEN Start: 03-19-2023 Thyrotropin [Units/v olume] in Serum or Plasma CHRYSTAL ALAMO Start: 03-19-2023 THYROXINE, FREE CHRYSTAL ALAMO Start: 03-19-2023 TRIIODOTHYRONINE, FREE CHRYSTAL ALAMO Start: 03-19-2023 Lipid 1995 panel - S jovanny or Plasma Alexa Lancaster APRN-PROPOSAL DIRECTOR Work Phone: Start: 03-20-2022 Lipid 1996 panel - S jovanny or Plasma Alexa Lancaster APRN-PROPOSAL DIRECTOR Work Phone: Start: 11-08-2021 Hemoglobin F [Presen ce] in Blood Paulino Fordyce Start: 11-08-2021 Rhogam Paulino Adai r Start: 05-01-2021 Microscopic observat ion [Identifier] in Cervix by Cyto stain Alexa Lancaster APRN-PROPOSAL DIRECTOR Work Phone: Start: 11-16-2020 Echocardiography Alexa luque [...] 2) Zoste r Vaccines (1 of 2) [facility] Start: 08-22-2031 DTaP/Tdap/Td Vaccine s (7 - Td or Tdap) DTaP/Tdap/Td Vaccines (7 - Td or Tdap) [facility] Start: 08-22-2031 DTaP/Tdap/Td Vaccine s (8 - Td or Tdap) DTaP/Tdap/Td Vaccines (8 - Td or Tdap) [facility] Start: 03-19-2028 Lipid panel Lipid Panel [facility] Start: 03-20-2027 Lipid panel Lipid Panel [facility] Start: 11-25-2025 Thyroid stimulating hormone measurement TSH Level [facility] Start: 05-13-2025 CBC W Auto Different ial panel - Blood [facility] Start: 05-13-2025 Choriogonadotropin ( test) [Presence] in Serum or Plasma [facility] Start: 05-13-2025 T4 free measurement [facility] Start: 05-13-2025 Thyroid stimulating hormone measurement [facility] Start: 05-04-2025 End: 05-04-2025 Patient encounter procedure 05/04/2025 9:00 AM EDT Office Visit [facility] [address] [place] [address] Chrystal Alamo PA-C [address] [place] [address] [facility] Start: 04-07-2025 End: 01-05-2026 25-hydroxyvitamin D3 [Mass/volume] in Serum or Plasma Vitamin D 25-Hydroxy,Total (for eval of Vitamin D levels) Lab Routine Vitamin D deficiency Expected: 04/07/2025 (Approximate), Expires: 01/05/2026 [facility] Work Phone: Comment on above: Expected: 04/07/2025 (Approximate), Expires: 01/05/2026 Start: 04-07-2025 End: 01-05-2026 CBC W Auto Differential panel - Blood CBC and Auto Differential Lab Routine Iron deficiency anemia, unspecified iron deficiency anemia type Expected: 04/07/2025 (Approximate), Expires: 01/05/2026 [facility] Service Area Work Phone: Comment on above: Expected: 04/07/2025 (Approximate), Expires: 01/05/2026 Start: 04-07-2025 End: 01-05-2026 Ferritin [Mass/volume] in Serum or Plasma Ferritin Lab Routine Iron deficiency anemia, unspecified iron deficiency anemia type Expected: 04/07/2025 (Approximate), Expires: 01/05/2026 [facility] Work Phone: Comment on above: Expected: 04/07/2025 (Approximate), Expires: 01/05/2026 Start: 04-07-2025 End: 01-05-2026 Iron and Iron binding capacity panel - Serum or Plasma Iron and TIBC Lab Routine Iron deficiency anemia, unspecified iron deficiency anemia type Expected: 04/07/2025 (Approximate), Expires: 01/05/2026 [facility] Work Phone: Comment on above: Expected: 04/07/2025 (Approximate), Expires: 01/05/2026 Start: 04-06-2025 Ambulation without limitation [facility] Start: 04-06-2025 Medical regimen orde rs management [facility] Start: 04-06-2025 Medication education [facility] Start: 04-06-2025 Patient discharge [facility] Start: 04-06-2025 Procedure discontinued [facility] Start: 04-06-2025 Taking patient vital signs [facility] Start: 04-06-2025 Vital signs measurements [facility] Start: 04-06-2025 [facility] Start: 04-06-2025 Anesthesia incomplete/missed ANES INCOMPL/MISSED AB PX [facility] Start: 04-06-2025 Tx missed f irst trimester surgical CARE OF MISCARRIAGE [facility] Start: 04-06-2025 Celiac disease screen [facility] Start: 04-06-2025 Hemoglobin A1c/Hemoglobin.total in Blood [facility] Start: 04-05-2025 Bacteria identified in Urine by Culture Urine Culture [facility] Start: 04-05-2025 [facility] Start: 02-25-2025 Thyroid stimulating hormone measurement TSH Level [facility] Start: 01-05-2025 End: 01-05-2025 Patient encounter procedure 01/05/2025 2:40 PM EDT Office Visit [facility] [address] [place] [phone] Chrystal Alamo PA-C [address] [place] [address] [facility] Start: 01-05-2025 End: 01-05-2026 XR Shoulder - right 2 Views XR shoulder right 2+ views Imaging Routine Acute pain of right shoulder Expected: 01/05/2025, Expires: 01/05/2026 [facility] Work Phone: Comment on above: Expected: 01/05/2025 , Expires: 01/05/2026 Start: 01-05-2025 End: 01-05-2026 XR Thoracic spine 2 Views XR thoracic spine 2 views Imaging Routine Acute right-sided thoracic back pain Expected: 01/05/2025, Expires: 01/05/2026 [facility] Work Phone: Comment on above: Expected: 01/05/2025 , Expires: 01/05/2026 Start: 11-24-2024 End: 11-24-2025 CBC W Auto Differential panel - Blood CBC and Auto Differential Lab Routine Iron deficiency anemia, unspecified iron deficiency anemia type Diet controlled gestational diabetes mellitus (GDM) in third trimester ([facility]) Expected: 11/24/2024 (Approximate), Expires: 11/24/2025 [facility] Service Area Work Phone: Comment on above: Expected: 11/24/2024 (Approximate), Expires: 11/24/2025 Start: 11-24-2024 End: 11-24-2025 Cobalamin (Vitamin B12) [Mass/volume] in Serum or Plasma Vitamin B12 Lab Routine Iron deficiency anemia, unspecified iron deficiency anemia type Diet controlled gestational diabetes mellitus (GDM) in third trimester ([facility]) Expected: 11/24/2024 (Approximate), Expires: 11/24/2025 [facility] Work Phone: Comment on above: Expected: 11/24/2024 (Approximate), Expires: 11/24/2025 Start: 11-24-2024 End: 11-24-2025 Comprehensive metabolic 2000 panel - Serum or Plasma Comprehensive Metabolic Panel Lab Routine Iron deficiency anemia, unspecified iron deficiency anemia type Diet controlled gestational diabetes mellitus (GDM) in third trimester ([facility]) Expected: 11/24/2024 (Approximate), Expires: 11/24/2025 [facility] Work Phone: Comment on above: Expected: 11/24/2024 (Approximate), Expires: 11/24/2025 Start: 11-24-2024 End: 11-24-2025 Ferritin [Mass/volume] in Serum or Plasma Ferritin Lab Routine Iron deficiency anemia, unspecified iron deficiency anemia type Diet controlled gestational diabetes mellitus (GDM) in third trimester ([facility]) Expected: 11/24/2024 (Approximate), Expires: 11/24/2025 [facility] Work Phone: Comment on above: Expected: 11/24/2024 (Approximate), Expires: 11/24/2025 Start: 11-24-2024 End: 11-24-2025 Hemoglobin A1c/Hemoglobin.total in Blood Hemoglobin A1C Lab Routine Iron deficiency anemia, unspecified iron deficiency anemia type Diet controlled gestational diabetes mellitus (GDM) in third trimester ([facility]) Expected: 11/24/2024 (Approximate), Expires: 11/24/2025 [facility] Work Phone: Comment on above: Expected: 11/24/2024 (Approximate), Expires: 11/24/2025 Start: 11-24-2024 End: 11-24-2025 Iron and Iron binding capacity panel - Serum or Plasma Iron and TIBC Lab Routine Iron deficiency anemia, unspecified iron deficiency anemia type Diet controlled gestational diabetes mellitus (GDM) in third trimester ([facility]) Expected: 11/24/2024 (Approximate), Expires: 11/24/2025 [facility] Work Phone: Comment on above: Expected: 11/24/2024 (Approximate), Expires: 11/24/2025 Start: 11-24-2024 End: 11-24-2025 Magnesium [Mass/volume] in Serum or Plasma Magnesium Lab Routine Iron deficiency anemia, unspecified iron deficiency anemia type Diet controlled gestational diabetes mellitus (GDM) in third trimester ([facility]) Expected: 11/24/2024 (Approximate), Expires: 11/24/2025 [facility] Work Phone: Comment on above: Expected: 11/24/2024 (Approximate), Expires: 11/24/2025 Start: 11-24-2024 End: 11-24-2025 Thyrotropin [Units/volume] in Serum or Plasma Thyroid Stimulating Hormone Lab Routine Sivan's thyroiditis Iron deficiency anemia, unspecified iron deficiency anemia type Diet controlled gestational diabetes mellitus (GDM) in third trimester ([facility]) Expected: 11/24/2024 (Approximate), Expires: 11/24/2025 [facility] Work Phone: Comment on above: Expected: 11/24/2024 (Approximate), Expires: 11/24/2025 Start: 11-24-2024 End: 11-24-2025 Thyroxine (T4) free [Mass/volume] in Serum or Plasma Thyroxine, Free Lab Routine Sivan's thyroiditis Iron deficiency anemia, unspecified iron deficiency anemia type Diet controlled gestational diabetes mellitus (GDM) in third trimester ([facility]) Expected: 11/24/2024 (Approximate), Expires: 11/24/2025 [facility] Work Phone: Comment on above: Expected: 11/24/2024 (Approximate), Expires: 11/24/2025 Start: 11-24-2024 End: 11-24-2025 XR Ankle - left 2 Views XR ankle left 2 views Imaging Routine Acute left ankle pain Expected: 11/24/2024, Expires: 11/24/2025 [facility] Work Phone: Comment on above: Expected: 11/24/2024 , Expires: 11/24/2025 Start: 11-24-2024 End: 11-24-2025 XR Calcaneus - left 2 Views XR calcaneus left 2 views Imaging Routine Pain of left heel Expected: 11/24/2024, Expires: 11/24/2025 [facility] Work Phone: Comment on above: Expected: 11/24/2024 , Expires: 11/24/2025 Start: 06-14-2024 COVID-19 Vaccine ( season) COVID-19 Vaccine ( season) [facility] Start: 06-14-2024 Influenza vaccination Influenz a Vaccine (#1) [facility] Start: 05-01-2024 Screening for malign ant neoplasm of cervix [facility] Start: 04-27-2024 End: 04-27-2024 Patient encounter procedure 04/27/2024 2:00 PM EDT Office Visit [facility] [address] [place] [address] Chrystal Alamo PA-C [address] [place] [address] [phone] (work) [facility] Start: 12-18-2023 Vital signs measurements [facility] Start: 12-18-2023 [facility] Start: 12-18-2023 Patient discharge [facility] Start: 12-14-2023 Patient discharge [facility] Start: 12-13-2023 Administration of bl ood product [facility] Start: 12-13-2023 Administration of medication [facility] Start: 12-13-2023 Application of ice c ollar, cap or bag [facility] Start: 12-13-2023 Catheterization of vein [facility] Start: 12-13-2023 Introduction of urin anthony catheter [facility] Start: 12-13-2023 Measuring intake and output [facility] Start: 12-13-2023 Procedure discontinued [facility] Start: 12-13-2023 Provision of activit y privileges [facility] Start: 12-13-2023 Vital signs measurements [facility] Start: 12-13-2023 End: 12-13-2023 [facility] Start: 12-13-2023 Documentation procedure [facility] Start: 12-13-2023 End: 12-13-2023 Notification of physician [facility] Start: 12-12-2023 Admission procedure [facility] Start: 11-27-2023 Nonstress test [facility] Start: 11-27-2023 Obstetric monitoring [facility] Start: 11-27-2023 Vital signs measurements [facility] Start: 11-27-2023 [facility] Start: 11-27-2023 Iv infusion hydratio n initial 31 min-1 hour HYDRATION IV INFUSION [facility] Start: 11-27-2023 Patient discharge [facility] Start: 10-18-2023 Iv infusion therapy prophylaxis/dx ea hour THER[facility]PROPH[facility] Start: 10-18-2023 Iv infusion therapy/prophylaxis /dx 1st to 1 hr THER/PROPH/DIAG IV INF [facility] Start: 10-16-2023 [facility] Start: 06-14-2023 Influenza vaccination [facility] Start: 04-11-2023 End: 04-11-2023 Patient encounter procedure 04/11/2023 9:40 AM EDT Office Visit [facility] [address] [place] [address] Chrystal Alamo PA-C [address] [place] [address] [facility] Start: 03-20-2023 End: 03-20-2024 CBC W Auto Differential panel - Blood CBC and Auto Differential Lab Routine Iron deficiency anemia, unspecified iron deficiency anemia type Expected: 03/20/2023 (Approximate), Expires: 03/20/2024 [facility] Service Area Work Phone: Comment on above: Expected: 03/20/2023 (Approximate), Expires: 03/20/2024 Start: 03-20-2023 End: 03-20-2024 Ferritin [Mass/volume] in Serum or Plasma Ferritin Lab Routine Iron deficiency anemia, unspecified iron deficiency anemia type Expected: 03/20/2023 (Approximate), Expires: 03/20/2024 [facility] Work Phone: Comment on above: Expected: 03/20/2023 (Approximate), Expires: 03/20/2024 Start: 03-20-2023 End: 03-20-2024 Iron and Iron binding capacity panel - Serum or Plasma Iron and TIBC Lab Routine Iron deficiency anemia, unspecified iron deficiency anemia type Expected: 03/20/2023 (Approximate), Expires: 03/20/2024 [facility] Work Phone: Comment on above: Expected: 03/20/2023 (Approximate), Expires: 03/20/2024 Start: 03-20-2023 End: 03-20-2024 Thyrotropin [Units/volume] in Serum or Plasma Thyroid Stimulating Hormone Lab Routine Sivan's thyroiditis Expected: 03/20/2023 (Approximate), Expires: 03/20/2024 [facility] Work Phone: Comment on above: Expected: 03/20/2023 (Approximate), Expires: 03/20/2024 Start: 03-20-2023 End: 03-20-2024 Thyroxine (T4) free [Mass/volume] in Serum or Plasma Thyroxine, Free Lab Routine Sivan's thyroiditis Expected: 03/20/2023 (Approximate), Expires: 03/20/2024 [facility] Work Phone: Comment on above: Expected: 03/20/2023 (Approximate), Expires: 03/20/2024 Start: 03-20-2023 End: 03-20-2024 Triiodothyronine (T3) Free [Mass/volume] in Serum or Plasma Triiodothyronine, Free Lab Routine Sivan's thyroiditis Expected: 03/20/2023 (Approximate), Expires: 03/20/2024 [facility] Work Phone: Comment on above: Expected: 03/20/2023 (Approximate), Expires: 03/20/2024 Start: 03-14-2023 End: 03-14-2024 CBC W Auto Differential panel - Blood CBC and Auto Differential Lab Routine Low thyroid stimulating hormone (TSH) level Iron deficiency anemia, unspecified iron deficiency anemia type Expected: 03/14/2023 (Approximate), Expires: 03/14/2024 [facility] Service Area Work Phone: Comment on above: Expected: 03/14/2023 (Approximate), Expires: 03/14/2024 Start: 03-14-2023 End: 03-14-2024 Cobalamin (Vitamin B12) [Mass/volume] in Serum or Plasma Vitamin B12 Lab Routine Low thyroid stimulating hormone (TSH) level Iron deficiency anemia, unspecified iron deficiency anemia type Expected: 03/14/2023 (Approximate), Expires: 03/14/2024 [facility] Work Phone: Comment on above: Expected: 03/14/2023 (Approximate), Expires: 03/14/2024 Start: 03-14-2023 End: 03-14-2024 Comprehensive metabolic 2000 panel - Serum or Plasma Comprehensive Metabolic Panel Lab Routine Low thyroid stimulating hormone (TSH) level Iron deficiency anemia, unspecified iron deficiency anemia type Expected: 03/14/2023 (Approximate), Expires: 03/14/2024 [facility] Work Phone: Comment on above: Expected: 03/14/2023 (Approximate), Expires: 03/14/2024 Start: 03-14-2023 End: 03-14-2024 Ferritin [Mass/volume] in Serum or Plasma Ferritin Lab Routine Low thyroid stimulating hormone (TSH) level Iron deficiency anemia, unspecified iron deficiency anemia type Expected: 03/14/2023 (Approximate), Expires: 03/14/2024 [facility] Work Phone: Comment on above: Expected: 03/14/2023 (Approximate), Expires: 03/14/2024 Start: 03-14-2023 End: 03-14-2024 Folate [Mass/volume] in Serum or Plasma Folate Lab Routine Low thyroid stimulating hormone (TSH) level Iron deficiency anemia, unspecified iron deficiency anemia type Expected: 03/14/2023 (Approximate), Expires: 03/14/2024 [facility] Work Phone: Comment on above: Expected: 03/14/2023 (Approximate), Expires: 03/14/2024 Start: 03-14-2023 End: 03-14-2024 Hemoglobin A1c/Hemoglobin.total in Blood Hemoglobin A1C Lab Routine Low thyroid stimulating hormone (TSH) level Iron deficiency anemia, unspecified iron deficiency anemia type Expected: 03/14/2023 (Approximate), Expires: 03/14/2024 [facility] Work Phone: Comment on above: Expected: 03/14/2023 (Approximate), Expires: 03/14/2024 Start: 03-14-2023 End: 03-14-2024 Iron and Iron binding capacity panel - Serum or Plasma Iron and TIBC Lab Routine Low thyroid stimulating hormone (TSH) level Iron deficiency anemia, unspecified iron deficiency anemia type Expected: 03/14/2023 (Approximate), Expires: 03/14/2024 [facility] Work Phone: Comment on above: Expected: 03/14/2023 (Approximate), Expires: 03/14/2024 Start: 03-14-2023 End: 03-14-2024 Lipid 1996 panel - Serum or Plasma Lipid Panel Lab Routine Low thyroid stimulating hormone (TSH) level Iron deficiency anemia, unspecified iron deficiency anemia type Expected: 03/14/2023 (Approximate), Expires: 03/14/2024 [facility] Work Phone: Comment on above: Expected: 03/14/2023 (Approximate), Expires: 03/14/2024 Start: 03-14-2023 End: 03-14-2024 Thyrotropin [Units/volume] in Serum or Plasma Thyroid Stimulating Hormone Lab Routine Low thyroid stimulating hormone (TSH) level Iron deficiency anemia, unspecified iron deficiency anemia type Expected: 03/14/2023 (Approximate), Expires: 03/14/2024 [facility] Work Phone: Comment on above: Expected: 03/14/2023 (Approximate), Expires: 03/14/2024 Start: 03-14-2023 End: 03-14-2024 Thyroxine (T4) free [Mass/volume] in Serum or Plasma Thyroxine, Free Lab Routine Low thyroid stimulating hormone (TSH) level Iron deficiency anemia, unspecified iron deficiency anemia type Expected: 03/14/2023 (Approximate), Expires: 03/14/2024 [facility] Work Phone: Comment on above: Expected: 03/14/2023 (Approximate), Expires: 03/14/2024 Start: 03-14-2023 End: 03-14-2024 Triiodothyronine (T3) Free [Mass/volume] in Serum or Plasma Triiodothyronine, Free Lab Routine Low thyroid stimulating hormone (TSH) level Iron deficiency anemia, unspecified iron deficiency anemia type Expected: 03/14/2023 (Approximate), Expires: 03/14/2024 [facility] Work Phone: Comment on above: Expected: 03/14/2023 (Approximate), Expires: 03/14/2024 Start: 10-17-2022 FUV, Provider: Chrystal Alamo, Status: Pen, Time: 10:40 AM FUV, Provider: Chrystal Alamo, Status: Pen, Time: 10:40 AM [facility] Work Phone: Start: 04-25-2022 FUV, Provider: Chrystal Alamo, Status: [place], Time: 1:00 PM FUV, Provider: Chrystal Alamo, Status: Pen, Time: 1:00 PM [facility] Work Phone: Start: 03-20-2022 FUV, Provider: Chrystal Alamo, Status: Pen, Time: 12:40 PM FUV, Provider: Chrystal Alamo, Status: Pen, Time: 12:40 PM [facility] Work Phone: Start: 02-13-2022 FUV, Provider: Chrystal Alamo, Status: Pen, Time: 1:00 PM FUV, Provider: Chrystal Alamo, Status: Pen, Time: 1:00 PM [facility] Work Phone: Start: 01-23-2022 PFT, Provider: RONNY MCKEON PFT ROOM,[id number], Status: Pen, Time: 9:00 AM PFT, Provider: SIKH PFT ROOM,[id number], Status: Pen, Time: 9:00 AM [facility] Work Phone: Start: 01-12-2022 FUV, Provider: Kayleigh Chawla, Status: Pen, Time: 1:00 PM FUV, Provider: Kayleigh Chawla, Status: Pen, Time: 1:00 PM [facility] Work Phone: Start: 12-19-2021 Patient encounter procedure [facility] Start: 12-19-2021 PPV, Provider: Paulino Christian, Status: Pen, Time: 1:30 PM PPV, Provider: Paulino Christian, Status: Pen, Time: 1:[address] Work Phone: Start: 11-08-2021 End: 11-08-2022 [facility] Comment on above: Consult provider jose enrique [...] Paulino Christian, Status: Pen, Time: 2:30 PM [employer] Work Phone: Start: 10-31-2021 EPVOB, Provider: Paulino Christian, Status: Pen, Time: 2:30 PM EPVOB, Provider: Paulino Christian, Status: Pen, Time: 2:30 PM [facility] Work Phone: Start: 10-24-2021 EPVOB, Provider: Paulino Christian, Status: Pen, Time: 2:00 PM EPVOB, Provider: Paulino Christian, Status: Pen, Time: 2:00 PM [employer] Work Phone: Start: 10-19-2021 ULTRASDFUV, Provider : URBAN CANDELARIAMGOBGYN, Status: Pen, Time: 2:00 PM ULTRASDFUV, Provider: URBAN CANDELARIAMGOBGYN, Status: Pen, Time: 2:00 PM [facility] Work Phone: Start: 10-03-2021 EPVOB, Provider: Paulino Christian, Status: Pen, Time: 2:45 PM EPVOB, Provider: Paulino Christian, Status: Pen, Time: 2:45 PM [facility] Work Phone: Start: 09-18-2021 EPVOB, Provider: Paulino Christian, Status: Pen, Time: 3:30 PM EPVOB, Provider: Paulino Christian, Status: Pen, Time: 3:30 PM [facility] Work Phone: Start: 09-05-2021 EPVOB, Provider: Paulino Christian, Status: Pen, Time: 8:30 AM EPVOB, Provider: Paulino Christian, Status: Pen, Time: 8:30 AM [facility] Work Phone: Start: 08-21-2021 EPVOB, Provider: Paulino Christian, Status: Pen, Time: 10:15 AM EPVOB, Provider: Paulino Christian, Status: Pen, Time: 10:15 AM [facility] Work Phone: Start: 07-24-2021 EPVOB, Provider: Paulino Christian, Status: Pen, Time: 3:45 PM EPVOB, Provider: Paulino Christian, Status: Pen, Time: 3:45 PM [facility] Work Phone: Start: 06-26-2021 EPVOB, Provider: Paulino Christian, Status: Pen, Time: 2:45 PM EPVOB, Provider: Paulino Christian, Status: Pen, Time: 2:45 PM [facility] Work Phone: Start: 06-26-2021 Patient encounter procedure [facility] Start: 05-29-2021 EPVOB, Provider: Paulino Christian, Status: Pen, Time: 3:15 PM EPVOB, Provider: Paulino Christian, Status: Pen, Time: 3:15 PM [facility] Work Phone: Start: 05-01-2021 EPVOB, Provider: Paulino Christian, Status: Pen, Time: 3:00 PM EPVOB, Provider: Paulino Christian, Status: Pen, Time: 3:00 PM [facility] Work Phone: Start: 04-25-2021 NPV, Provider: Rochelle Boyer, Status: Pen, Time: 9:00 AM NPV, Provider: Rochelle Boyer, Status: Pen, Time: 9:00 AM [facility] Work Phone: Start: 04-24-2021 FUV, Provider: Chrystal Alamo, Status: Pen, Time: 9:40 AM FUV, Provider: Chrystal Alamo, Status: Pen, Time: 9:40 AM [facility] Work Phone: Start: 2021 Screening for malign ant neoplasm of cervix [facility] Start: 04-03-2021 EPVOB, Provider: Velasquez Ewing, Status: Pen, Time: 2:45 PM EPVOB, Provider: Velasquez Ewing, Status: Pen, Time: 2:45 PM [facility] Work Phone: Start: 09-01-2020 Varicella vaccination Varicell a Vaccines (1 of 2 - 13+ 2-dose series) [facility] Start: 08-31-2020 Varicella vaccination Varicell a Vaccines (1 of 2 - 2-dose childhood series) [facility] Start: 06-14-2020 Influenza vaccination INFLUENZ A VACCINE (#1) [facility] Start: 2019 Pneumococcal Vaccine : Pediatrics and At-Risk Adult Patients (1 of 2 - PCV) Pneumococcal Vaccine: Pediatrics and At-Risk Adult Patients (1 of 2 - PCV) [facility] Start: 2019 Third diphtheria, te tanus and acellular pertussis (DTaP) vaccination TDAP (ADULT) [facility] Start: 2018 Tetanus vaccination TETANUS [facility] Start: 2016 Screening for Chlamy shaquille trachomatis CHLAMYDIA SCREEN [facility] Start: 2015 HPV Vaccines (1 - 3- dose series) HPV Vaccines (1 - 3-dose series) [facility] Start: 2013 HIV screening HIV SCREENING DISCUSSION [facility] Start: 2011 HPV Vaccines (1 - 2- dose series) HPV Vaccines (1 - 2-dose series) [facility] Start: 2011 Vaccination for andressa n papillomavirus HPV VACCINE ADOL (1 - 2-dose series) [facility] Start: 2006 Pneumococcal Vaccine : Pediatrics (0 to 5 Years) and At-Risk Patients (6 to 64 Years) (1 - PCV) Pneumococcal Vaccine: Pediatrics (0 to 5 Years) and At-Risk Patients (6 to 64 Years) (1 - PCV) [facility] Start: 2006 Pneumococcal Vaccine : Pediatrics (0 to 5 Years) and At-Risk Patients (6 to 64 Years) (1 of 2 - PCV) Pneumococcal Vaccine: Pediatrics (0 to 5 Years) and At-Risk Patients (6 to 64 Years) (1 of 2 - PCV) [facility] Start: 2004 IPV Vaccines (4 of 4 - 4-dose series) IPV Vaccines (4 of 4 - 4-dose series) [facility] Start: 2000 COVID-19 Vaccine (#1) COVID-19 Vacci ne (#1) [facility] Start: 2000 GONORRHEA SCREEN GONORRHEA SCREEN [facility] Start: 2000 Hepatitis C antibody , confirmatory test HEPATITIS C VIRUS SCREENING [facility] Start: 2000 Yearly Adult Physical Yearly Adult P hysical [facility] Anti-D (Rh) immunoglobulin [facility] Bacteria identified in Urine by Culture Urine Culture Microbiology Routine Dysuria 08/06/2024 5:03 PM EDT [facility] Service Area Work Phone: CBC W Auto Different ial panel - Blood [facility] CBC W Auto Different ial panel - Blood [facility]ac [facility] Cobalamin (Vitamin B 12) [Mass/volume] in Serum or Plasma [facility] Drugs identified in Urine by Screen method [facility] Erythrocyte mean corpuscular volume determination [facility] Ferritin [Mass/volum e] in Serum or Plasma [facility] Hematocrit [Volume Fraction] of Blood [facility] Hemoglobin [Mass/vol ume] in Blood [facility] Hemoglobin A1c/Hemoglobin.total in Blood [facility] IgA [Mass/volume] in Serum or Plasma [facility] Iron and Iron bindin g capacity panel - Serum or Plasma [facility] Leukocytes [#/volume ] in Blood [facility] Mean corpuscular hemoglobin concentration determination [facility] Mean corpuscular hemoglobin determination [facility] Neutrophil count [facility] Neutrophil percent differential count [facility] Patient Education [facility] Work Phone: Patient referral [facility] Work Phone: Platelets [#/volume] in Blood [facility] Procedure [facility] Red blood cell count [facility] Red cell distributio n width determination [facility] End: 10-31-2020 Standard ECG ECG ECG STAT One Time for 1 Occurrences starting 10/31/2020 until 10/31/2020 [facility] Comment on above: One Time for 1 Occur rences starting 10/31/2020 until 10/31/2020 Streptococcus agalac tiae [Presence] in Unspecified specimen by Organism specific culture [facility] T4 free measurement [facility] T4 free measurement [facility] T4 free measurement [facility] Thyroid stimulating hormone measurement [facility] Thyroid stimulating hormone measurement [facility] Thyroid stimulating hormone measurement [facility] Tissue transglutamin ase IgA Ab [Units/volume] in Serum [facility] Ultrasound scan for growth [facility] Urine culture [facility] US Pelvis [facility] Vitamin D, 25-hydrox y measurement [facility] Work Phone: [facility] NEGATED: Highlighted row has been ruled out! Planned Goals not documented [facility] Work Phone: Immunizations Immunization Date Immunization Notes Care Provider Hazel shay 08-22-2021 tetanus toxoid, reduced diphtheria toxoid, and acellular pertussis vaccine, adsorbed Chrystal Vallejoall Work Phone: [address] Work Phone: 08-04-2020 hepatitis B vaccine, pediatric or pediatric/adolescent dosage Alexa Beyer [facility] Work Phone: Comment on above: Series: 08-04-2020 measles, mumps and rubella virus vaccine Alexa Beyer [facility] Work Phone: Comment on above: Series: 08-04-2020 tetanus toxoid, reduced diphtheria toxoid, and acellular pertussis vaccine, adsorbed Alexa Beyer [facility] Work Phone: Comment on above: Series: 08-03-2020 hepatitis B vaccine, adult dosage Alexa Lancaster [employer]OSAL DIRECTOR Work Phone: [facility] Work Phone: 08-03-2020 measles, mumps and rubella virus vaccine Alexa Lancaster [employer]ST FI[employer] TICKETER-PROPOSAL DIRECTOR Work Phone: [facility] 08-03-2020 tetanus toxoid, reduced diphtheria toxoid, and acellular pertussis vaccine, adsorbed Alexa Lancaster HAR[employer]ST FIELD TICKETER-PROPOSAL DIRECTOR Work Phone: [facility] Work Phone: 07-14-2020 influenza, seasonal, injectable Chrystal Alamo Work Phone: [address] Work Phone: Comment on above: Series: 07-14-2020 influenza virus vaccine, unspecified formulation Alexa Lancaster HAR[employer]ST FIELD TICKETER-PROPOSAL DIRECTOR Work Phone: [facility] Work Phone: 03-25-2002 diphtheria, tetanus toxoids and acellular pertussis vaccine Chrystal Vallejoall Work Phone: [address] Work Phone: 03-25-2002 measles, mumps and rubella virus vaccine Chrystal B Cally Work Phone: [address] Work Phone: 04-30-2001 haemophilus influenz ae type b conjugate and Hepatitis B vaccine Chrystal B [place] Work Phone: [address] Work Phone: 04-30-2001 measles, mumps and rubella virus vaccine Chrystal B Cally Work Phone: [address] Work Phone: 04-30-2001 pneumococcal conjuga te vaccine, 7 valent Chrystal B [place] Work Phone: [address] Work Phone: 2000 diphtheria, tetanus toxoids and acellular pertussis vaccine, unspecified formulation Chrystal B Cally Work Phone: [address] Work Phone: 2000 pneumococcal conjuga te vaccine, 7 valent Chrystal B [place] Work Phone: [address] Work Phone: 2000 poliovirus vaccine, inactivated Chrystal B [place] Work Phone: [address] Work Phone: 2000 poliovirus vaccine, unspecified formulation Roe Allan PA-C Work Phone: [facility] Work Phone: 2000 diphtheria, tetanus toxoids and acellular pertussis vaccine, unspecified formulation Chrystal B Cally Work Phone: [address] Work Phone: 2000 haemophilus influenz ae type b conjugate and Hepatitis B vaccine Chrystal B [place] Work Phone: [address] Work Phone: 2000 poliovirus vaccine, inactivated Chrystalann-marie Alamo Work Phone: [address] Work Phone: 2000 diphtheria, tetanus toxoids and acellular pertussis vaccine, unspecified formulation Chrystalann-marie Alamo Work Phone: [address] Work Phone: 2000 haemophilus influenz ae type b conjugate and Hepatitis B vaccine [facility] Cally Work Phone: [address] Work Phone: 2000 poliovirus vaccine, inactivated Chrystalann-marie Wrightenhall Work Phone: [address] Work Phone: Payers Date Payer Category Payer Self-pay [id number] 2021 Medicaid (Managed Care) 1.2. [id number] 2021 Unknown [id number] 2021 Unknown [id number] 2021 Managed Care (Private) 1.2.8 [id number] 2021 Unknown [id number] 2021 Unknown [id number] 2019 Unknown 2000 Unknown [id number] 2.16.84 0.1.618688.3.579.2.598 2000 Unknown [id number] 2.16. 840.1.554391.3.579.2.356 2000 Unknown [id number] 2.16. 840.1.685420.3.579.2.356 2000 Unknown [id number] 2.16. 840.1.067454.3.579.2.356 2000 Unknown [id number] 2.16. 840.1.431555.3.579.2.356 2000 Unknown [id number] 2.16. 840.1.105809.3.579.2.356 2000 Unknown [id number] 2.16. 840.1.360336.3.579.2.356 2000 Unknown [id number] 2.16. 840.1.043976.3.579.2.356 2000 Unknown [id number] 2.16.8 40.1.728419.3.579.2.1069 2000 Unknown [id number] 2.16.8 40.1.301511.3.579.2.1245 2000 Unknown [id number] 2.16.84 0.1.611317.3.579.2.1245 2000 Unknown [id number] 2.16.84 0.1.408542.3.579.2.1245 2000 Unknown [id number] 2.16.84 0.1.998832.3.579.2.1245 2000 Unknown [id number] 2.16.8 40.1.598187.3.579.2.1243 2000 Unknown [id number] 2.16. 840.1.042884.3.579.2.902 2000 Unknown [id number] 2.16. 840.1.770470.3.579.2.1244 2000 Unknown [id number] 2.16. 840.1.387896.3.579.2.1244 1959 Unknown [id number] Unknown [id number] 2.16.8 40.1.327668.3.579.2.462 Unknown [id number] 2.16.8 40.1.005134.3.579.2.462 Unknown [id number] 2.16.8 40.1.669338.3.579.2.462 Unknown [id number] 2.16.8 40.1.846249.3.579.2.462 Unknown [id number] 2.16.8 40.1.577452.3.579.2.462 Unknown [id number] 2.16.8 40.1.283584.3.579.2.462 Unknown [id number] 2.16.8 40.1.024846.3.579.2.462 Unknown [id number] 2.16.8 40.1.638924.3.579.2.462 Unknown [id number] 2.16.8 40.1.501965.3.579.2.462 Unknown [id number] 2.16.8 40.1.423836.3.579.2.462 Unknown [id number] 2.16.8 40.1.009048.3.579.2.462 Unknown [id number] 2.16.8 40.1.541662.3.579.2.462 Unknown [id number] 2.16.8 40.1.430526.3.579.2.462 Unknown [id number] 2.16.8 40.1.737279.3.579.2.462 Unknown [id number] 2.16.8 40.1.357686.3.579.2.462 Social History Date Type Detail Facility Start: 10-31-2020 Tobacco smoking status NHIS Current some day smoker [facility] Start: 10-31-2020 End: 01-30-2023 Tobacco use and exposure Never used [facility] Start: 10-31-2020 End: 01-05-2025 Alcohol intake Current drinker of alcohol (finding) [facility] Start: 10-31-2020 Tobacco Comment [facility] Start: 10-31-2020 Alcohol Comment occasional [facility] Start: 2000 Sex Assigned At Not on file [facility] Start: 03-04-2023 End: 01-05-2025 Exposure to SARS-CoV-2 (event) Not sure [facility] Start: 02-08-2023 End: 01-05-2025 Coffee Coffee [facility] [address] [place] Work Phone: Comment on above: Vape pen, quit on ; Start: 05-27-2023 End: 12-12-2023 Tobacco smoking consumption unknown [facility] Start: 01-30-2023 End: 04-05-2025 Tobacco smoking status NHIS Ex-smoker [facility] Work Phone: History of tobacco use Current smoker [facility] Work Phone: History of tobacco use Cigarette Smoker [facility] Work Phone: Start: 02-08-2023 End: 01-05-2025 Tobacco use panel [facility] Work Phone: Start: 01-29-2023 End: 02-08-2023 Exposure to SARS-CoV-2 (event) Unable to assess [facility] Start: 2000 Sex Assigned At Female [facility] Start: 10-18-2023 Alcohol intake Ex-drinker (finding) [facility] Work Phone: Start: 11-24-2024 Alcohol Comment rare [facility] Work Phone: Start: 01-01-2025 End: 01-03-2025 Sex Female (finding) [facility] NEGATED: Highlighted row - - -[facility] Work Phone: NEGATED: Highlighted row Not [facility] Medical Equipment Procedure Code Equipment Code Equipment [...] Status Date Assessment Result Facility Functional observable [facility] NEGATED: Highlighted row Functional performance Functional status health issues are not documented Disease [facility] Work Phone: Mental Status Date Assessment Result Facility 04-06-2025 Cognitive function Voice/Name [facility] Work Phone: 10-18-2023 Cognitive function Awake;Alert;A ppropriate ;Follows [facility] Work Phone: 10-16-2023 Cognitive function Level Of Cons ciousness Awake;Alert;Appropriate ;Follows [facility] Work Phone: 11-08-2021 Cognitive functi ons :44 [facility] NEGATED: Highlighted row Cognitive function [Interpretation] Cognitive status health issues are not documented Disease [facility] Work Phone: Clinical Notes 01-12-2021 to 05-13-2025 Note Date & Type Note Facility 05-13-2025 Progress note [facility] 05-13-2025 Progress note Note Date/Time May 13, 2025 3:14pm [facility] [address], [address] [place] [address] OFFICE VISIT Date of Service: 05/13/25 MR#: [id number] Acct: [id number] Name: JOHNY TORRES Rep #: [id number] : 2000 Provider: Dr. Adrien Baker MD Age/Sex: 25/F Location: [facility] Status: Signed Intake Vital Signs 04/30/25 10:00 05/13/25 14:49 05/13/25 14:50 Height 5 ft 3 in 5 ft 3 in 5 ft 3 in Weight: 134 lb 137 lb 2 oz BMI 23.7 24.3 BP 111/71 111/72 Intake Visit Reasons: Post op bleeding FU Material Chaser Required: No Is patient in pain?: No Allergies Latex, Natural Rubber Allergy (Mild, Verified 05/13/25 14:49) Itching hydrocodone (From Vicodin) Allergy (Verified 05/13/25 14:49) other hydromorphone (From Dilaudid) Adverse Reaction (Intermediate, Verified 05/13/25 14:49) passed out Medications ?Medication ?Instructions ?Recorded ?Confirmed ?Type multivit-min no.71-iron fum 28 1 cap PO DAILY 05/16/23 05/13/25 History mg-folate no.1 1 mg-dha 300 mg capsule (PNV-Sidney) levothyroxine 50 mcg tablet 50 mcg PO QDAY #90 tabs 05/13/25 Rx albuterol sulfate 90 mcg/actuation 2 puff inhalation Q 6H PRN 03/26/25 05/13/25 History aerosol inhaler (Ventolin HFA) shortness of breath or wheezing cholecalciferol (vitamin D3) 50 50 mcg PO QDAY 5 05/13/25 History mcg (2,000 unit) capsule norethindrone acetate 5 mg tablet 5 mg PO .COMPLEX #30 tabs 05/13/25 05/13/25 Rx Is last menstrual period known: No Post menopausal: No Patient : No : Yes [facility] Medical History (Updated 05/13/25 @ 15:[address] 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 Autoimmune thyroiditis Vaginal delivery Oligohydramnios Gestational diabetes mellitus (GDM) affecting , antepartum Abnormal glucose affecting Shoulder dystocia during labor and delivery Rh negative status during H/O herpes genitalis Surgical History History of throat surgery History of tonsillectomy [place] teeth extracted Family History Grandmother Ovarian cancer, Onset Age: 70 Paternal great grandmother Colon cancer, Onset Age: 60 Paternal Social History adopted: No household members: spouse and children housing: house number of children: 2 current occupational status: unemployed current occupation: [employer] pets and animals: Yes pets and [...] 1-2 times per week duration: 30-45 minutes/day stacey/rastafarian: Episcopalian seatbelt use: always do you feel safe at home: Yes additional social history: Shawn Torres HPI Post op bleeding FU Details: JOHNY TORRES is a 25 year old who presents for persistent bleeding, light red ot brown for three weeks after d and c. she had a negative test at home. she feels tired, no fevers no foul discharge. History 3 Elective abortions Hx Para 2 Spontaneous abortions 1 Hx # Term Pregnancies Ectopic pregnancies Hx # Pregnancies Multiple births # of living children 2 Past Pregnancies Del. Date Name GA/Weeks Outcome Route Bth Weight Gen Labor Lgth Anesthesia Del Locatn Provider FOB 11/07/21 Tye 39 live - full term 8#6oz [facility] [place] [facility] 12/17/23 Ellia 37 live - full term 6lbs 14oz Female e pidural [facility] Olivia Escobar 04/06/25 9 spontaneous Delivery Date: 11/07/21 Last Updated by: Esme Baker MD IOL- small pelvis, shoulder dystocia and clavicle fracture Delivery Date: 12/17/23 Last Updated by: Nicole Mehta IOL oligo [email or web address] ROS Const Constitutional: Reports fatigue; Denies fever(s), headache(s), increased appetite, poor appetite, weight gain or weight loss : Reports as per HPI; Denies difficulty voiding, dysuria, urinary frequency, urinary incontinence, urinary hesitancy, urinary urgency, vaginal discharge, vaginal dryness, vaginal odor or vaginal pruritus Exam Const General: cooperative, healthy appearing, comfortable, no acute distress and welldeveloped Nutritional Appearance: average body habitus Orientation: alert General: bladder normal to palpation External Female Exam: normal external appearance and normal appearance of the urethra Urethra: normal appearance of the urethra and normal palpation Speculum Exam - Vagina: normal appearance of the vagina and vaginal bleeding Speculum Exam - Cervix: normal appearance of the cervix and nontender Bimanual Exam- Vagina & Uterus: normal bimanual exam, uterine size normal, bladder normal to palpation, uterine shape normal, No tender, uterine mobility normal, consistency normal, normal palpation and non-tender Bimanual Exam- Adnexa, other: normal adnexae, adnexae mobile, no masses and normal Pelvic Support: normal OB/External & Speculum: vaginal bleeding Speculum Exam: vaginal bleeding Coding Level of Care Code Off vis,est,level 4 Diagnoses Abnormal uterine bleeding N93.9 Ovarian cyst N83.209 Assessment and Plan Assessment and Plan (1) Abnormal uterine bleeding: Status: Acute Comment: labs ordered and bedside ultrasound 4-5mm lining and adnexal cyst seen.progesterone course given (2) Ovarian cyst: Status: Acute Comment: right complex 3-4 cyst Orders: Orders CBC W/Diff, Automated Today N93.9 - Abnormal uterine and vaginal bleeding, unspecified Thyroid Stim Hormone (TSH) Today N93.9 - Abnormal uterine and vaginal bleeding,unspecified Free T4 Today N93.9 - Abnormal uterine and vaginal bleeding, unspecified hCG Titer Quant., Serum Today N93.9 - Abnormal uterine and vaginal bleeding, unspecified Pelvic w/ Transvaginal 6 Weeks N83.209 - Unspecified ovarian cyst, unspecified side Medications: New norethindrone acetate 5 mg PO BID x 3 days and then once daily for remainder 30 tabs 0RF Plan Problem list updated and treatment plans were reviewed with the patient and relevant educational handouts given. See problem list details for specific planinformation. 05/13/25 4257 <Electronically signed by Esme long MD> Date _ Esme Baker MD Cosigner Signature: Date (if applicable) CC: ~ [facility] [employer] Work Phone: 1(601) 569-343406-24-2025 Consult note [facility] Medical Records Department [address] [place] [address] Anesthesia Postop Eval I 04/06/25 1505 MR#: [id number] Acct: [id number] Name: JOHNY TORRES RICHARD Rep #:[id number] : 2000 24 From: Roe COSTELLO PCP: CURTIS Mena Status:REG SDC Y Race: C Location: [place] [address] Anesthesia: Postop Eval I Current Vital Signs [...] document: Postop Eval 1 completed: Yes 04/06/25 1505 WIND TECHNICIAN> Date _ Roe Waller WIND TECHNICIAN Cosigner Signature: Date CC: ~ Signed [facility]06-24-2025 Consult note Author Roe Beaver [facility] Note Date/Time April 06, 2025 5:29 pm [facility] Medical Records Department [address] [place] [address] Anesthesia Postop Eval I 04/06/25 1505 MR#: [id number] Acct: [id number] Name: CHELSEA TORRESCheikh RAMOS Rep #:[id number] : 2000 24 From: Roe COSTELLO PCP: CURTIS Mena Status:REG SDC Y Race: C Location: [place] [address] Anesthesia: Postop Eval I Current Vital Signs [...] document: Postop Eval 1 completed: Yes 04/06/25 1507 <Electronically signed by Roe Waller CRNA> Date _ Roe Waller WIND TECHNICIAN Cosigner Signature: Date CC: ~ Signed [facility] Work Phone: 1(390) 983-849606-24-2025 Discharge summary Author Esme Baker [facility] Note Date/Time April 06, 2025 2:57 pm [facility] Medical Records Department [address] [place] [address] Instructions for Home/Discharge Instructions 04/06/25 1443 MR#: [id number] Acct: [id number] Name: JOHNY TORRES Rep #:[id number] : 2000 24 From: Esme madrid MD [...] Up With: Esme Baker MD When: Call [phone] to schedule appointment. Test Results: Test results from this visit will be discussed in further detail at your follow- up appointment, if applicable. Discharge Plan Admission Attending Provider: Esme Baker Primary Care Provider: Chrystal Alamo Instructions Print Language: Liberian Discharge Orders/Prescriptions Prescriptions: No Action PNV-Sidney 28-1-300 mg capsule 1 cap PO DAILY [...] can be placed): Home, Self Care 04/06/25 5313<Electronically signed by Esme Baker MD>Esme Baker MD CC: CURTIS Mena ~ Signed [facility] Work Phone: [phone]) 181-715806-24-2025 History and physical note Author Esme Baker [facility] Note Date/Time April 06, 2025 1:54 pm [facility] Medical Records Department [address] [place] [address] History & Physical Exam 04/06/25 1157 MR#: [id number] Acct: [id number] Name: JOHYN TORRES Rep #:[id number] : 2000 24 From: Esme madrid MD PCP: CURTIS Mena [place] [facility] Location: [place] [address] History and Physical MR#: [id number] Acct: [id number] Name: JOHNY TORRES Rep #: [id number] : 2000 Provider: Dr. Brandi Freeman DO Age/Sex: 24/F Location: [facility] Status: Signed Intake Vital Signs 12/22/2508:34 03/11/2508:03 04/05/2510:51 04/05/2510:53 Height 5 ft 3 in 5 ft 3 in 5 ft 3 in 5 ft 3 in Weight: 138 lb BMI 24.4 BP 121/79 H Intake Visit Reasons: *EST* NOB LMP 02/01, STARR 11/08 Material Chaser Required: No Is patient in pain?: No Allergies Latex, Natural Rubber Allergy (Mild, Verified 04/05/25 10:49) Itchinghydrocodone (From Vicodin) Allergy (Verified 04/05/25 10:49) otherhydromorphone (From Dilaudid) Adverse Reaction (Intermediate, Verified 04/05/25 10:49) passed out Medications ?Medication ?Instructions ?Recorded ?Confirmed ?Type multivit-min no.71-iron fum 28 1 cap PO DAILY 05/16/23 04/05/25 History mg-folate no.1 1 mg-dha 300 mg capsule (PNV-Sidney) levothyroxine 50 mcg tablet 50 mcg PO [...] History of throat surgery History of tonsillectomy [place] teeth extracted Family History Grandmother Ovarian cancer, Onset Age: 70 Paternal great grandmother Colon cancer, Onset Age: 60 Paternal Social History adopted: No household members: spouse and children housing: house number of children: 2 current occupational status: unemployed current occupation: [employer] pets and animals: Yes pets and animals: [...] 1-2 times per week duration: 30-45 minutes/day stacey/rastafarian: Episcopalian seatbelt use: always do you feel safe [...] - full term 8#6oz Mal e epidural [facility] Dr. Jordon Escobar 12/17/23 Ellia 37 live - full term 6lbs 14oz Female epidural [facility] Olivia Escobar Delivery Date: 11/07/21 Last Updated [...] violence, History of blood transfusions,Seasonal allergies, Breast, Big Data Engineer surgery, Anesthetic complications, History of abnormal pap, [...] bedside ultrasound prior to theD&C. 04/06/25 1159 <Electronically signed by Esme Baker MD> Cosigner [...] Esme Baker MD; CURTIS Mena ~* Signed [facility] Work Phone: 1(878) 878-694106-24-2025 Consult note Author Praveen Valenzuela [facility] Note Date/Time April 06, 2025 1:44 pm [facility] Medical Records Department [address] [place] [address] Pre-Anesthesia Evaluation 04/06/25 1338 MR#: [id number] Acct: [id number] Name: JOHNY TORRES Rep #:[id number] : 2000 24 From: Praveen Valenzuela MD PCP: CURTIS Mena Status:REG SDC Y Race: C Location: [address] ASA Classification* ASA Classification ASA Classification: 2 [...] d&c, suction Anesthesia History Anesthesia History - roll edge stitcher hand: Anesthesia History - roll edge stitcher hand Hx Hospitalization No 04/05/25 15:18 Any Problems [...] sips of water?: Yes PONV PONV - roll edge stitcher hand: PONV - roll edge stitcher hand Female Yes 04/05/25 15:18 HX of Motion [...] 04/06/25 12:51 Respiratory Assessment Respiratory Assessment - roll edge stitcher hand: Respiratory Tract Infection Hx - roll edge stitcher hand Hx Respiratory Tract Infection No 04/05/25 15:18 STOP Sleep Apnea STOP Sleep Apnea - roll edge stitcher hand: STOP Sleep Apnea - roll edge stitcher hand Hx Hypertension No 04/05/25 15:18 Hx Sleep [...] Tobacco Use History Tobacco Use History - roll edge stitcher hand: Tobacco Use History - roll edge stitcher hand Tobacco Use Smoking Status Former smoker 04/05/25 15:18 Hx Tobacco Use No 04/05/25 15:18 Years Smoking Packs Smoked per Day Smoking Cessation Date was Yes - quit smoking within 15 04/05/25 15:18 within the last 15 years years Hx Smoking Cessation Date 10/14/20 04/05/25 15:18 Hx Smoking Cessation Counseling Hematologic Medial History Hematologic Hx - roll edge stitcher hand: 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 Hx of Blood Transfusion No 04/05/25 15:18 [...] confused, unrespo /Reproduction History /Reproductive History - roll edge stitcher hand: /Reproductive Hx- roll edge stitcher hand Hx Now No 04/05/25 15:18 Gestational Age (in weeks): EDC: Hx Hx Para Hx Section SAB No 04/05/25 15:18 Active Medications Active Medications: Current Medications Generic Name Dose Route Start Last Admin Trade Name Carlene PRN Reason Stop Dose Admin Doxycycline Monohydrate [...] 1 mg-dha 300 mg 1 cap capsule (PNV-Sidney) levothyroxine 50 mcg tablet 50 mcg PO [...] History of throat surgery History of tonsillectomy [place] teeth extracted Social History adopted: No household members: spouse and children housing: house number of children: 2 current occupational status: unemployed current occupation: [employer] pets and animals: Yes pets and [...] 1-2 times per week duration: 30-45 minutes/day stacey/rastafarian: Episcopalian seatbelt use: always do you feel safe at home: Yes additional social history: Shawn Torres Review of Systems (Anesthesia) ROS Narrative System reviewed and no additional complaints, except as documented. 04/06/25 1344 <Electronically signed by Praveen santa MD> Date _ [facility] Signature: Date CC: ~ Signed [facility] Work Phone: [phone]) 424-500406-24-2025 Discharge summary [facility] Medical Records Department [address] [place] [address] Instructions for Home/Discharge Instructions 04/06/25 1443 MR#: [id number] Acct: [id number] Name: JOHNY TORRES Rep #:[id number] : 2000 24 From: Esme madrid MD [...] Up With: Esme Baker MD When: Call [phone] to schedule appointment. Test Results: Test results from this visit will be discussed in further detail at your follow- up appointment, if applicable. Discharge Plan Admission Attending Provider: Esme Baker Primary Care Provider: Chrystal Alamo Instructions Print Language: Liberian Discharge Orders/Prescriptions Prescriptions: No Action PNV-Sidney 28-1-300 mg capsule 1 cap PO DAILY [...] Baker MD CC: CURTIS Mena ~ Signed [facility]06-24-2025 Procedure note [facility] Medical Records Department [address] [place] [address] Operative Report 04/06/25 1442 MR#: [id number] Acct: [id number] Name: JOHNY TORRES Rep #:[id number] : 2000 24 From: Esme madrid MD PCP: CURTIS Mena Status:REG SD Location: [facility]1 Procedures Urinary/Genital 52xxx-59xxx: [address]8414 Surg Trtmt missed Ab, 1TM Operative Report (Standard) Operative Information Date of Procedure: 04/06/25 Pre-Operative Diagnosis: see problem list comments Post-Operative Diagnosis: same Surgery/Procedure Performed: suction dilation and curettage machine tender: No Type of Anesthesia: IV Sedation and [...] iup 9 weeks Complications Complications: No 04/06/25 1457 Cosigner Signature (if applicable): CC: Dr. Esme Baker MD; CURTIS Mena~ Signed [facility]06-24-2025 History and physical note [facility] Medical Records Department [address] [place] [address] History & Physical Exam 04/06/25 1157 MR#: [id number] Acct: [id number] Name: JOHNY TORRES Rep #:[id number] : 2000 24 From: Esme madrid MD PCP: CURTIS Mena Status:[facility] Location: [place] [address] History and Physical MR#: [id number] Acct: [id number] Name: JOHNY TORRES Rep #: [id number] : 2000 Provider: Dr. Brandi Freeman DO Age/Sex: 24/F Location: [facility] Status: Signed Intake Vital Signs 12/22/2508:34 03/11/2508:03 04/05/2510:51 04/05/2510:53 Height 5 ft 3 in 5 ft 3 in 5 ft 3 in 5 ft 3 in Weight: 138 lb BMI 24.4 BP 121/79 H Intake Visit Reasons: *EST* NOB LMP 02/01, STARR 11/08 Material Chaser Required: No Is patient in pain?: No Allergies Latex, Natural Rubber Allergy (Mild, Verified 04/05/25 10:49) Itchinghydrocodone (From Vicodin) Allergy (Verified 04/05/25 10:49) otherhydromorphone (From Dilaudid) Adverse Reaction (Intermediate, Verified 04/05/25 10:49) passed out Medications ?Medication ?Instructions ?Recorded ?Confirmed ?Type multivit-min no.71-iron fum 28 1 cap PO DAILY 05/16/23 04/05/25 History mg-folate no.1 1 mg-dha 300 mg capsule (PNV-Sidney) levothyroxine 50 mcg tablet 50 mcg PO [...] History of throat surgery History of tonsillectomy [place] teeth extracted Family History Grandmother Ovarian cancer, Onset Age: 70 Paternal great grandmother Colon cancer, Onset Age: 60 Paternal Social History adopted: No household members: spouse and children housing: house number of children: 2 current occupational status: unemployed current occupation: [employer] pets and animals: Yes pets and [...] 1-2 times per week duration: 30-45 minutes/day stacey/rastafarian: Episcopalian seatbelt use: always do you feel safe [...] - full term 8#6oz Mal [facility] [place] [facility] 12/17/23 aKte 37 live - full term 6lbs 14oz Female epidural [facility] Olivia Escobar Delivery Date: 11/07/21 Last Updated [...] violence, History of blood transfusions,Seasonal allergies, Breast, Big Data Engineer surgery, Anesthetic complications, History of abnormal pap, [...] Monitoring, Signs and Symptoms of Preeclampsia and [place] Education ROS Const All systems reviewed & [...] a bedside ultrasound prior to theD&C. 04/06/25 3263 Cosigner Signature (if applicable): CC: Dr. Esme Baker MD; CURTIS Mena~ Signed ADDENDUM by Dr. Esme Baker MD on 04/06/25 at 1354 Addendum repeat US done and no fHT or color doppler seen measuring 8w 5d UPDATE- I have seen the patient and performed any clinically relevant updates to the history and physical exam. Esme Baker MD 04/06/25 1354 Cosigner Signature (if applicable): cc: Dr. Esme Baker MD; CUTRIS Mena ~* Signed [facility]06-24-2025 Consult note [facility] Medical Records Department [address] [place] [address] Pre-Anesthesia Evaluation 04/06/25 1338 MR#: [id number] Acct: [id number] Name: JOHNY TORRES Rep #:[id number] : 2000 24 From: Praveen Valenzuela MD PCP: CURTIS Mena Status:REG SDC Y Race: C Location: [place] [address] ASA Classification* ASA Classification ASA Classification: 2 [...] d&c, suction Anesthesia History Anesthesia History - roll edge stitcher hand: Anesthesia History - roll edge stitcher hand Hx Hospitalization No 04/05/25 15:18 Any Problems [...] sips of water?: Yes PONV PONV - roll edge stitcher hand: PONV - roll edge stitcher hand Female Yes 04/05/25 15:18 HX of Motion [...] 04/06/25 12:51 Respiratory Assessment Respiratory Assessment - roll edge stitcher hand: Respiratory Tract Infection Hx - roll edge stitcher hand Hx Respiratory Tract Infection No 04/05/25 15:18 STOP Sleep Apnea STOP Sleep Apnea - roll edge stitcher hand: STOP Sleep Apnea - roll edge stitcher hand Hx Hypertension No 04/05/25 15:18 Hx Sleep [...] Tobacco Use History Tobacco Use History - roll edge stitcher hand: Tobacco Use History - roll edge stitcher hand Tobacco Use Smoking Status Former smoker 04/05/25 15:18 Hx Tobacco Use No 04/05/25 15:18 Years Smoking Packs Smoked per Day Smoking Cessation Date was Yes - quit smoking within 15 04/05/25 15:18 within the last 15 years years Hx Smoking Cessation Date 10/14/20 04/05/25 15:18 Hx Smoking Cessation Counseling Hematologic Medial History Hematologic Hx - roll edge stitcher hand: 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 Hx of Blood Transfusion No 04/05/25 15:18 [...] confused, unrespo /Reproduction History /Reproductive History - roll edge stitcher hand: /Reproductive Hx- roll edge stitcher hand Hx Now No 04/05/25 15:18 Gestational Age [...] 1 mg-dha 300 mg 1 cap capsule (PNV-Sidney) levothyroxine 50 mcg tablet 50 mcg PO [...] History of throat surgery History of tonsillectomy [place] teeth extracted Social History adopted: No household members: spouse and children housing: house number of children: 2 current occupational status: unemployed current occupation: [employer] pets and animals: Yes pets and [...] 1-2 times per week duration: 30-45 minutes/day stacey/rastafarian: Episcopalian seatbelt use: always do you feel safe at home: Yes additional social history: Shawn Torres Review of Systems (Anesthesia) ROS Narrative System reviewed and no additional complaints, except as documented. 04/06/25 1344 kiet ENGLISH> Date _ Praveen Valenzuela MD [facility] Signature: Date CC: ~ Signed [facility]06-24-2025 [facility] Medical Records Department [address] [place] [address] History Physical Exam 04/06/25 1157 MR#: [id number] Acct: [id number] Name: JOHNY TORRES Rep #: [id number] : 2000 24 From: Esme Baker MD PCP: CURTIS Mena [place] [facility] History and Physical MR#: [id number] Acct: [id number] Name: JOHNY TORRES Rep #: [id number] : 2000 Provider: Dr. Brandi Freeman DO Age/Sex: 24/F Location: [facility] Status: Signed Intake Vital Signs 12/22/2508:34 03/11/2508:03 04/05/2510:51 04/05/2510:53 Height 5 ft 3 in 5 ft 3 in 5 ft 3 in 5 ft 3 in Weight: 138 lb BMI 24.4 BP 121/79 H Intake Visit Reasons: *EST* NOB LMP 02/01, STARR 11/08 Material Chaser Required: No Is patient in pain?: No Allergies Latex, Natural Rubber Allergy (Mild, Verified 04/05/25 10:49) Itchinghydrocodone (From Vicodin) Allergy (Verified 04/05/25 10:49) otherhydromorphone (From Dilaudid) Adverse Reaction (Intermediate, Verified 04/05/25 10:49) passed out Medications ???Medication ???Instructions ???Recorded ???Confirmed ???Type multivit-min no.71-iron fum 28 1 cap PO DAILY 05/16/23 04/05/25 History mg-folate no.1 1 mg-dha 300 mg capsule (PNV-Sidney) levothyroxine 50 mcg tablet 50 mcg PO [...] History of throat surgery History of tonsillectomy [place] teeth extracted Family History Grandmother Ovarian cancer, Onset Age: 70 Paternal great grandmother Colon cancer, Onset Age: 60 Paternal Social History adopted: No household members: spouse and children housing: house number of children: 2 current occupational status: unemployed current occupation: [employer] pets and animals: Yes pets and [...] 1-2 times per week duration: 30-45 minutes/day stacey/rastafarian: Episcopalian seatbelt use: always do you feel safe [...] - full term 8#6oz Male epidura l Claus Escobar 12/17/23 Kate 37 live - full term 6lbs 14oz Female e pidural 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 February 8:18am resolved March 11, 2025 8:18am Anxiety resolved April 05 10:39am Asthma resolved April 05 10:39am Autoimmune thyroiditis resolved [facility] 2024 10:39am Chronic anemia resolved April 05, 2025 10:39am H/O herpes genitalis resolved April 05, 2025 10:39am History of gestational diabe riky mellitus (GDM) resolved April 05, 2025 10:39am History of gestational hypertension resolved April 05, 2025 10:39am History of marijuana use resolved April 05, 2025 10:39am Hx of shoulder dystocia in p rior , currently resolved [facility] 2024 10:39am 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 [address] [place] [address] OFFICE VISIT Date of Service: 03/11/25 MR#: [id number] Acct: [id number] Name: JOHNY TORRES Rep #: [id number] : 2000 Provider: Dr. Anson Richter MD Age/Sex: 24/F Location: [facility] Status: Signed Intake Vital Signs 12/22/24 09:34 [...] mg-folate no.1 1 mg-dha 300 mg capsule (PNV-Sidney) levothyroxine 50 mcg tablet 50 mcg PO QDAY #90 tabs 03/11/25 Rx Patient : Yes (5 w 3 d) [facility] Medical History (Updated 03/11/25 @ 08:[address] 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 Autoimmune thyroiditis Vaginal delivery Oligohydramnios Gestational diabetes mellitus (GDM) affecting , antepartum Abnormal glucose affecting Shoulder dystocia during labor and delivery Rh negative status during H/O herpes genitalis Surgical History History of throat surgery History of tonsillectomy [place] teeth extracted Family History Grandmother Ovarian cancer great grandmother Social History adopted: No household members: spouse and children number of children: 2 current occupational status: unemployed current occupation: [employer] pets and animals: Yes pets and [...] in: walking frequency: daily duration: 30-45 minutes/day stacey/rastafarian: Episcopalian seatbelt use: always do you feel safe [...] Date (if applicable) CC: CURTIS Mena ~ [facility]05-29-2025 Progress note Author Anson Richter [facility] Note Date/Time March 11, 2025 8:55a loren [facility] [address] [facility] [address] [place] [address] OFFICE VISIT Date of Service: 03/11/25 MR#: [id number] Acct: [id number] Name: JOHNY TORRES Rep #: [id number] : 2000 Provider: Dr. Anson Richter MD Age/Sex: 24/F Location: [facility] Status: Signed Intake Vital Signs 12/22/24 09:34 [...] mg-folate no.1 1 mg-dha 300 mg capsule (PNV-Sidney) levothyroxine 50 mcg tablet 50 mcg PO QDAY #90 tabs 03/11/25 Rx Patient : Yes (5 w 3 d) [facility] Medical History (Updated 03/11/25 @ 08:[address] 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 Autoimmune thyroiditis Vaginal delivery Oligohydramnios Gestational diabetes mellitus (GDM) affecting , antepartum Abnormal glucose affecting Shoulder dystocia during labor and delivery Rh negative status during H/O herpes genitalis Surgical History History of throat surgery History of tonsillectomy [place] teeth extracted Family History Grandmother Ovarian cancer great grandmother Social History adopted: No household members: spouse and children number of children: 2 current occupational status: unemployed current occupation: [employer] pets and animals: Yes pets and [...] in: walking frequency: daily duration: 30-45 minutes/day stacey/rastafarian: Episcopalian seatbelt use: always do you feel safe [...] Date (if applicable) CC: CURTIS Mena ~ [facility] Work Phone: 1([phone]) 275-789803-25-2025 History of Present illness Narrative* CURTIS Lorenz-Eugenia [...] Menstruation Other specified related conditions, unspecified trimester ([facility]) 10/31/2021 Rh negative, antepartum Personal history of [...] Behavior: Behavior normal. Testing Component Latest Ref [facility] 11/25/2024 WHITE BLOOD CELL COUNT 3.8 - [...] FU in 3-6 mo with labs at [facility] fasting and med check documented in this [facility] Work Phone: 1([phone]) 718-207003-13-2025 Radiology Diagnostic study note [facility] Imaging Services [address] [place] [address] Pelvic w/ Transvaginal MR#: [id number] Acct: [id number] Name: JOHNY FREED Rep #: [id number] : 2000 F 24 From: Mason Quintanilla MD PCP: CURTIS Mena Status: REG CLI Study:Pelvic w/ Transvaginal Date of Exam: 12/24/24 Exam# [id number] Ordering Dr: Esme Christie MD PROCEDURE: PELVIC [...] Physiologic amount of free fluid Reading Location: [id number] CC: Dr. 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 February 8:18am [facility] Work Phone: 1([phone]) [phone] Evaluation note* Diagnosis Onset Date Resolution Status [...] due to Sivan's thyroiditis chronic March 10:39am [facility] Work Phone: [phone]) [phone] Evaluation note* Diagnosis Onset Date Resolution Status [...] due to Sivan's thyroiditis chronic March 10:39am [facility] Work Phone: [phone]) [phone] History of Present illness Narrative* Chrystal Alamo [...] (TSH) level Moderate persistent asthma without complication (HHS-HCC) Seasonal allergies [...] Menstruation Other specified related conditions, unspecified trimester ([facility]) 10/31/2021 Rh negative, antepartum Personal history of [...] Hemoglobin A1C Mild persistent asthma without complication ([facility]) J45.30 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 Relevant Orders Thyroid Stimulating Hormone Thyroxine, Free Other Visit Diagnoses Codes Fatigue, unspecified type - Primary R53.83 Diet controlled gestational diabetes mellitus (GDM) in third trimester ([facility]) O24.410 Relevant Orders CBC and Auto Differential [...] = labs and xrays documented in this [facility] Work Phone: 1([phone]) 758-364210-24-2024 History of Present illness Narrative* Roe Allan [...] (5' 3) Wt 68 kg (150 lb) XmH966% BMI 26.57 kg/m Physical Exam General: Alert [...] Final diagnoses: [R30.0] Dysuria documented in this [facility] Work Phone: 1([phone]) 842-250204-09-2024 NotePap Smear Specimen AdequacyApril 2023 11:57amComment.Satisfactory for evaluation. Endocervical and/or squamous metaplasticcells (endocervical component)are present.[facility]ED A#[id number] Memorial HospitalComment on above:Satisfactory for evaluation. Endocervical and/or squamous metaplasticcells (endocervical component)are present.12-13-2023 Discharge summary Author Esme Baker [facility] December 13, 2023 1:53am Note Date/Time December 13, 2023 1:53 am [facility] Medical Records Department [address] [place] [address] Instructions for Home/Discharge Instructions 12/13/23 0153 MR#: [id number] Acct: [id number] Name: JOHNY FREED Rep #:[id number] : 2000 23 From: Esme madrid MD [...] Up With: Esme Baker MD When: Call [phone] to make an appointment with your doctor [...] Chrystal Alamo Discharge Orders/Prescriptions Prescriptions: No Action PNV-Sidney 28-1-300 mg capsule 1 cap PO DAILY aspirin 81 mg tablet,delayed release (DR/EC) 81 mg PO DAILY (DME) FreeStyle Sanjay 2 Ona Misc See Rx Instructions .Route Qty: 1 [...] Baker MD CC: CURTIS Mena ~ Signed [facility] Work Phone: 1([phone]) 247-414703-01-2024 Progress note Author Esme Baker [facility] December 13, 2023 12:16am Note Date/Time December 13, 2023 12:1 6am [facility] Medical Records Department [address] [place] [address] Progress Note 12/13/23 0014 MR#: [id number] Acct: [id number] Name: JOHNY FREED Rep #:[id number] : 2000 23 From: Esme madrid MD PCP: CURTIS Mena Status:ADM IN Location: SA108-5 Progress Note arom clear fluid, indwelling rincon placed. cat I tracing, iupc placed. pit perprotocol. 5-6/-2 clear fluid. exp management 12/13/23 0016 <Electronically signed by Esme Baker MD> Esme Baker MD Cosigner Signature (if applicable): CC: ~ Signed [facility] Work Phone: 1(794) 380-608203-01-2024 History and physical note Author Esme Baker [facility] December 13, 2023 12:14am Note Date/Time December 13, 2023 12:1 4am [facility] Medical Records Department [address] [place] [address] History & Physical Exam 12/13/23 0014 MR#: [id number] Acct: [id number] Name: JOHNY FREED Rep #:[id number] : 2000 23 From: Esme madrid MD PCP: CURTIS Mena Status:ADM IN Location: II354-1 History and Physical Date of Admission: 12/12/23 Vital Signs 11/14/2409:46 12/05/2412:57 :25 :27 Height 5 ft 3 in 5 ft 3 in 5 ft 3 in 5 ft 3 in Weight: 194 lb BMI 34.3 BP 112/77 Intake Visit Reasons: 37 WK OB Material Chaser Required: No Is patient in pain?: No Allergies Latex, Natural Rubber Allergy (Mild, Verified 12/12/23 14:25) Itchingacetaminophen [From Vicodin] Allergy (Verified 12/12/23 14:25) otherhydrocodone [From Vicodin] Allergy (Verified 12/12/23 14:25) otherhydromorphone [From Dilaudid] Adverse Reaction (Intermediate, Verified 12/12/23 14:25) passed out Medications multivit-min no.71-iron fum 28 mg-folate no.1 1 mg-dha 300 mg capsule (PNV- Sidney) 1 cap PO DAILY 08/03/23 [History Confirmed 12/12/23] aspirin 81 mg tablet,delayed [...] [Rx Confirmed 12/12/23] flash glucose scanning reader (WowOwowStyle Sanjay 2 Ona) #1 ea 10/30/23 [Rx Confirmed 12/12/23] flash [...] History of throat surgery History of tonsillectomy [place] teeth extracted Family History Grandmother Ovarian cancer [...] in: walking frequency: daily duration: 30-45 minutes/day stacey/rastafarian: Episcopalian seatbelt use: always do you feel safe [...] term 8#6oz Mal e epidural Claus Escobar Delivery Date: 11/07/21 Last Updated by: [...] Monitoring, Signs and Symptoms of Preeclampsia and [place] Education ROS Const Reports system reviewed and [...] General: cooperative, healthy appearing, comfortable and anxious HENMT Head: normal to inspection Nose: external nose [...] negative status during in second trimester O26.892; Z67.91 Trimester: second trimester Sivan's disease E06.3 Asthma [...] - Other specified related conditions, second trimester; Z67.91 - Unspecified blood type, Rh negative Comment: rhogam @ 28 wks & Prn bleeding (7) Sivan's disease: Status: Chronic (8) Asthma: Status: Acute Comment: allergy induced (9) Supervision of high-risk : Status: Acute Qualifiers: Trimester: second trimester Qualified Code(s): O09.92 - Supervision of high risk , unspecified, second trimester Comment: [id number], STARR 01/02/24 PC Tye, Shawn (10) : [...] trial of labor I have reviewed the [facility] and made any clinically relevant updates. 12/13/2313 <Electronically signed by Esme Baker MD> Cosigner Signature (if applicable): CC: Dr. Esme Baker MD; CURTIS Mena~ Signed [facility] Work Phone: 1(230) 265-906203-01-2024 Procedure [facility] 10-18-2023 History of Present illness Narrative* Alexa Lancaster, ART-REINALDO - 10/18/2023 2:40 PM EST Subjective Patient [...] Follow up as before [facility] Work Phone: 1([phone]) [phone] Discharge summary Author Fermín Rodrigues [facility] October 16, 2023 9:13pm Note Date/Time October 16, 2023 9: 05pm [facility] Medical Records Department [address] [place] [address] Emergency Department Summary 10/16/23 MR#: [id number] Acct: [id number] Name: JOHNY FREED Rep #:[id number] : 2000 23 From: Fermín Rodrigues MD [...] frequent syncopal episodes. She was referredto pediatric orthodontist. Table tilt test was never performed.. Patient [...] similar symptoms: Yes Recent Illness/Hospitalization: No PFSH PFS Medical History H/O herpes genitalis Shoulder dystocia during labor and delivery Home Medications multivit-min no.71-iron fum 28 mg-folate no.1 1 mg-dha 300 mg capsule (PNV- Sidney) 1 cap PO DAILY 05/16/23 [History Last [...] History of throat surgery History of tonsillectomy [place] teeth extracted Social History adopted: No household [...] in: walking frequency: daily duration: 30-45 minutes/day stacey/rastafarian: Episcopalian seatbelt use: always do you feel safe [...] i.e. WPW, [place] syndrome, short CO interval, prolonged QT duration etc. Lab Data [...] 72.3 H Lymph % (Auto) 16.6 L [place] % (Auto) 6.4 Eos % (Auto) 2.2 Baso % (Auto) 0.6 Absolute Neuts (auto) 7.5 Absolute Lymphs (auto) 1.73 Nucleated RBC % 0 Urine Color Yellow Urine Clarity Clear Urine pH 6.5 Ur Specific [place] 1.010 Urine Protein Negative Urine Glucose (UA) [...] ED Fainting, Vagal Reaction Prescriptions: No Action PNV-Sidney 28-1-300 mg capsule 1 cap PO DAILY [...] your Primary Care Provider. Call [facility] ([phone]) or report to the closest Emergency Room. Call 911 if necessary. 10/16/232112 <Electronically signed by Fermín Rodrigues MD> Cosigner Signature (if applicable): CC: CURTIS Mena ~ Signed [facility] Work Phone: [phone]) 301-120601-03-2024 Discharge summary Author Fermín Rodrigues [facility] October 16, 2023 9:14pm Note Date/Time October 16, 2023 9: 14pm [facility] Medical Records Department [address] [place] [address] Emergency Department Summary 10/16/23 MR#: [id number] Acct: [id number] Name: JOHNY FREED Rep #:[id number] : 2000 23 From: Fermín Rodrigues MD PCP: CURTIS Mena Status:REG ER Location: ED HPI History of Present Illness Chief Complaint: Syncope PFSH PFS Medical History H/O herpes genitalis Shoulder dystocia during labor and delivery Home Medications multivit-min no.71-iron fum 28 mg-folate no.1 1 mg-dha 300 mg capsule (PNV- Sidney) 1 cap PO DAILY 05/16/23 [History Last [...] History of throat surgery History of tonsillectomy [place] teeth extracted Social History adopted: No household [...] in: walking frequency: daily duration: 30-45 minutes/day stacey/rastafarian: Episcopalian seatbelt use: always do you feel safe [...] 72.3 H Lymph % (Auto) 16.6 L [place] % (Auto) 6.4 Eos % (Auto) 2.2 Baso % (Auto) 0.6 Absolute Neuts (auto) 7.5 Absolute Lymphs (auto) 1.73 Nucleated RBC % 0 Urine Color Yellow Urine Clarity Clear Urine pH 6.5 Ur Specific [place] 1.010 Urine Protein Negative Urine Glucose (UA) [...] ED Fainting, Vagal Reaction Prescriptions: No Action PNV-Sidney 28-1-300 mg capsule 1 cap PO DAILY [...] your Primary Care Provider. Call [facility] ([phone]) or report to the closest Emergency Room. Call 911 if necessary. 10/16/232113 <Electronically signed by Fermín Rodrigues MD> Cosigner Signature (if applicable): CC: CURTIS Mena ~ Signed [facility] Work Phone: 1([phone]) [phone] Discharge summary Author Fermín Rodrigues [facility] October 16, 2023 9:15pm Note Date/Time October 16, 2023 9: 15pm [facility] Medical Records Department [address] [place] [address] Emergency Department Summary 10/16/23 MR#: [id number] Acct: [id number] Name: JOHNY FREED Rep #:[id number] : 2000 23 From: Fermín Rodrigues MD PCP: CURTIS Mena Status:REG ER Location: ED HPI History of Present Illness Chief Complaint: Syncope [facility] Medical History H/O herpes genitalis Shoulder dystocia during labor and delivery Home Medications multivit-min no.71-iron fum 28 mg-folate no.1 1 mg-dha 300 mg capsule (PNV- Sidney) 1 cap PO DAILY 05/16/23 [History Last [...] History of throat surgery History of tonsillectomy [place] teeth extracted Social History adopted: No household [...] in: walking frequency: daily duration: 30-45 minutes/day stacey/rastafarian: Episcopalian seatbelt use: always do you feel safe [...] 72.3 H Lymph % (Auto) 16.6 L [place] % (Auto) 6.4 Eos % (Auto) 2.2 Baso % (Auto) 0.6 Absolute Neuts (auto) 7.5 Absolute Lymphs (auto) 1.73 Nucleated RBC % 0 Urine Color Yellow Urine Clarity Clear Urine pH 6.5 Ur Specific [place] 1.010 Urine Protein Negative Urine Glucose (UA) [...] Rhythm (Rate is 84. EKG is normal. CO interval is 164 ms. Cures duration 84 ms. QT duration 270 ms. [place] is normal) Discharge Plan Triage Chief Complaint: Syncope ED Provider: Fermín Rodrigues Dx/Rx/DC Orders Clinical Impression: Ketosis, Syncopal episodes, Sivan's disease, Rh negative status during , Anemia in preg-unspec Instructions: Anemia During , ED Fainting, Vagal Reaction Prescriptions: No Action PNV-Sidney 28-1-300 mg capsule 1 cap PO DAILY [...] your Primary Care Provider. Call [facility] ([phone]) or report to the closest Emergency Room. Call 911 if necessary. 10/16/232114 <Electronically signed by Fermín Rodrigues MD> Cosigner Signature (if applicable): CC: CURTIS Mena ~ Signed [facility] Work Phone: 1([phone]) 249-871306-07-2023 History of Present illness Narrative* Alexa Lancaster, ART-REINALDO - 03/20/2023 3:40 PM EDT Subjective Patient ID: Johny Freed is a 22 y.o. female who presents for Results (NO ADDITIONAL CONCERNS ). VIRTUAL APPOINTMENT BEING PERFORMED DUE TO COVID-19 (CORONAVIRUS) HPI: Presents today for [facility]. NO NEW COMPLAINTS IRON- SHE [...] is not nervous/anxious. Objective Component Latest Ref Rn 03/19/2023 WBC 4.4 - 11.3 x10E9/L 4.7 [...] WITH RM WITH [facility]S [facility] Work Phone: 1([phone]) 224-832206-07-2023 Instructions* Patient Instructions* JANINA Lara - 03/20/2023 3:40 PM EDT 1 month with labs with RM Cancel 04/11/23 [facility] Work Phone: 1([phone]) 633-892806-01-2023 History of Present illness Narrative* JANINA Lara [...] WITH LABS WITH RM [facility] Work Phone: [phone]) 135-164001-04-2023 Chief complaint Narrative - Reported* An interactive [...] Pt vv 6 mnth fu with labs. -[facility] Work Phone: [phone]) 463-514605-23-2022 NotePrevious comment was modified by Chictini at 15:06 on 03/09/2022 CULTURE IN PROGRESS. FINAL REPORT IN 72 HOURS. Culture examined for Group A Streptococcus, Group B Streptococcus, Neisseria gonorrhoeae and Yeast ONLY. NO Neisseria gonorrhoeae ISOLATED. PATIENT: JOHNY FREED [place] [facility] [place]#: [id number] : [birth year] AGE: SEX: F ORDERED BY: TYALER SANTIAGO SOURCE: GENITAL COLLECTED: 03/05/22 11:23 ANTIBIOTICS AT [place].: RECEIVED : 03/05/22 17:59 SITE: Vaginal Corrected Report R E S U L T S GENITAL CULTURE, BACT. FINAL 03/09/22 15:06 NO PATHOGENS Culture examined for Group A Streptococcus, Group B Streptococcus, Neisseria gonorrhoeae and Yeast ONLY. NO Neisseria gonorrhoeae ISOLATED. Previous comment was modified by Chictini at 15:06 on 03/09/22. Culture examined for Group A Streptococcus, Group B Streptococcus, Neisseria gonorrhoeae and Yeast ONLY. NO Neisseria gonorrhoeae ISOLATED.[facility]arlton Rehabilitation HospitalComment on above: Performed By: #### GENLO #### [facility] [address] [place], [place] [id number] History of Present illness Narrative* Patient presents [...] pulm work up * she saw Neyda Chawla in december/january and complained of SOB, persistent [...] finding and notes some improvement as well [facility] Work Phone: 1([phone]) [phone] History of Present illness Narrative* 21 YOF [...] COVID-19 negative. * No known COVID-19 exposure. [facility] Work Phone: [phone]) [phone] History of Present illness Narrative* 21 YOF [...] COVID-19 negative. * No known COVID-19 exposure. [facility] Work Phone: [phone] History of Present illness Narrative* Patient presents [...] if not better since she has been [facility] Internal [facility] Work Phone: 1([phone]) 365-638404-01-2021 History of Present illness NarrativePatient presents stating she has not had a menstrual flow since January. She was on control pills when she found out she was . She has some breast tenderness and nausea. Denies any vaginal bleeding. Patient states she has a history of herpes. She was also diagnosed with Sivan's disease.[address] Work Phone: Evaluation note* Extremities: Negative calf painGastrointestinal: Soft positive bowel sounds probably tender nondiste ndedCardiovascular: Regular rate rhythmRespiratory/Thorax: Clear to auscultation bilaterallyEyes: EOMISkin: no rashes or lesionsConstitutional: alert, oriented [facility]* Diagnosis Genital herpes simplex, unspecified site- Primary documented in this encounter [facility] Work Phone: Evaluation note* Diagnosis Abscess- Primary Cellulitis and abscess of unspecified site Low thyroid stimulating hormone (TSH) level Iron deficiency anemia, unspecified iron deficiency anemia type documented in this encounter [facility] Work Phone: Evaluation note* Diagnosis Iron deficiency anemia, unspecified iron deficiency anemia type- Primary Sivan's thyroiditis Chronic lymphocytic thyroiditis documented in this encounter [facility] Work Phone: Evaluation note* Diagnosis Onset Date Resolution Status Asthma acute H/O herpes genitalis acute Sivan's disease acute [id number] acute acute Rh negative status during acute Supervision of high-risk acute History of labor, current resolved Seasonal allergies resolved History of pre-eclampsia in prior , currently noneactive [facility] Work Phone: Evaluation note* Diagnosis Onset Date Resolution Status Asthma acute H/O herpes genitalis acute [id number] acute acute Rh negative status during acute Supervision of high-risk acute Sivan's disease chronic History of labor, current resolved Seasonal allergies resolved History of pre-eclampsia in prior , currently noneactive Asthma acute H/O herpes genitalis acute [id number] acute acute Rh negative status during acute Supervision of high-risk acute Sivan's disease chronic Asthma acute H/O herpes genitalis acute [id number] acute acute Rh negative status during acute Supervision of high-risk acute Sivan's disease chronic Sivan's disease [facility] Work Phone: Evaluation note* Diagnosis Onset Date Resolution Status Asthma acute H/O herpes genitalis acute [id number] acute acute Rh negative status during acute Supervision of high-risk acute Sivan's disease chronic History of labor, current resolved Seasonal allergies resolved History of pre-eclampsia in prior , currently noneactive Asthma acute H/O herpes genitalis acute [id number] acute acute Rh negative status during acute Supervision of high-risk acute Sivan's disease chronic Asthma acute H/O herpes genitalis acute [id number] acute acute Rh negative status during acute Supervision of high-risk acute 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/O herpes genitalis acute [id number] acute History of proteinuria syndrome acute Rh negative status during acute Supervision of high-risk acute Sivan's disease [facility] Work Phone: Evaluation note* Diagnosis Onset Date Resolution Status Asthma acute H/O herpes genitalis acute [id number] acute acute Rh negative status during acute Supervision of high-risk acute Sivan's disease chronic Asthma acute H/O herpes genitalis acute [id number] acute acute Rh negative status during acute Supervision of high-risk acute Siavn's disease chronic Sivan's disease chronic H/O herpes genitalis acute [id number] acute History of proteinuria syndrome acute Rh negative status during acute Supervision of high-risk acute Sivan's disease [facility] Work Phone: Evaluation note* Diagnosis Acute non-recurrent maxillary sinusitis- Primary Nasal congestion Other diseases of nasal cavity and sinuses documented in this encounter [facility] Work Phone: Evaluation note* Diagnosis Onset Date Resolution Status Asthma acute H/O herpes genitalis acute [id number] acute acute Rh negative status during acute Supervision of high-risk acute 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/O herpes genitalis acute [id number] acute History of proteinuria syndrome acute Rh negative status during acute Supervision of high-risk acute Sivan's disease chronic Anemia in preg-unspec acute Asthma acute H/O herpes genitalis acute [id number] acute History of proteinuria syndrome acute acute Rh negative status during acute Supervision of high-risk acute Sivan's disease [facility] Work Phone: Evaluation note* Diagnosis Onset Date Resolution Status Asthma acute H/O herpes genitalis acute [id number] acute acute Rh negative status during acute Supervision of high-risk acute 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/O herpes genitalis acute [id number] acute History of proteinuria syndrome acute Rh negative status during acute Supervision of high-risk acute Sivan's disease chronic Anemia in preg-unspec acute Asthma acute H/O herpes genitalis acute [id number] acute History of proteinuria syndrome acute acute Rh negative status during acute Supervision of high-risk acute Sivan's disease chronic Anemia in preg-unspec acute Asthma acute Gestational diabetes mellitu s (GDM) affecting , antepartum acute H/O herpes genitalis acute [id number] acute History of proteinuria syndrome acute acute Rh negative status during acute Supervision of high-risk acute Sivan's disease [facility] Work Phone: Evaluation note* Diagnosis Onset Date Resolution Status Sivan's disease chronic H/O herpes genitalis acute [id number] acute History of proteinuria syndrome acute Rh negative status during acute Supervision of high-risk acute Sivan's disease chronic Anemia in preg-unspec acute Asthma acute H/O herpes genitalis acute [id number] acute History of proteinuria syndrome acute acute Rh negative status during acute Supervision of high-risk acute Sivan's disease chronic Anemia in preg-unspec acute Asthma acute Gestational diabetes mellitu s (GDM) affecting , antepartum acute H/O herpes genitalis acute [id number] acute History of proteinuria syndrome acute acute Rh negative status during acute Supervision of high-risk acute Sivan's disease chronic Anemia in preg-unspec acute Asthma acute Gestational diabetes mellitu s (GDM) affecting , antepartum acute H/O herpes genitalis acute [id number] acute History of proteinuria syndrome acute acute Rh negative status during acute Supervision of high-risk acute Sivan's disease chronic Anemia in preg-unspec acute Asthma acute Gestational diabetes mellitu s (GDM) affecting , antepartum acute H/O herpes genitalis acute [id number] acute History of proteinuria syndrome acute acute Rh negative status during acute Supervision of high-risk acute Sivan's disease [facility] [place] Work Phone: Evaluation note* Diagnosis Onset Date Resolution Status Rh negative status during acute H/O herpes genitalis resolve d Sivan's disease resolved [id number] resolved History of proteinuria syndrome resolved Supervision of high-risk resolved Asthma acute Rh negative status during acute Anemia in preg-unspec resolv ed H/O herpes genitalis resolve d Sivan's disease resolved [id number] resolved History of proteinuria syndrome resolved resolved Supervision of high-risk resolved Asthma acute Gestational diabetes mellitu s (GDM) affecting , antepartum acute Rh negative status during acute Anemia in preg-unspec resolv ed H/O herpes genitalis resolve d Sivan's disease resolved [id number] resolved History of proteinuria syndrome resolved resolved Supervision of high-risk resolved Asthma acute Gestational diabetes mellitu s (GDM) affecting , antepartum acute Rh negative status during acute Anemia in preg-unspec resolv ed H/O herpes genitalis resolve d Sivan's disease resolved [id number] resolved History of proteinuria syndrome resolved resolved Supervision of high-risk resolved Asthma acute Gestational diabetes mellitu s (GDM) affecting , antepartum acute Rh negative status during acute Anemia in preg-unspec resolv ed H/O herpes genitalis resolve d Sivan's disease resolved [id number] resolved History of proteinuria syndrome resolved resolved Supervision of high-risk resolved Trauma during reso lved Asthma acute Gestational diabetes mellitu s (GDM) affecting , antepartum acute Rh negative status during acute Anemia in preg-unspec resolv ed H/O herpes genitalis resolve d Sivan's disease resolved [id number] resolved History of proteinuria syndrome resolved resolved Supervision of high-risk resolved Asthma acute Gestational diabetes mellitu s (GDM) affecting , antepartum acute Rh negative status during acute Anemia in preg-unspec resolv ed H/O herpes genitalis resolve d Sivan's disease resolved [id number] resolved History of proteinuria syndrome resolved Oligohydramnios in third trimester resolved resolved Supervision of high-risk resolved Asthma acute Gestational diabetes mellitu s (GDM) affecting , antepartum acute Rh negative status during acute Vaginal delivery acute Anemia in preg-unspec resolv ed H/O herpes genitalis resolve d Sivan's disease resolved [id number] resolved History of proteinuria syndrome resolved Oligohydramnios in third trimester resolved resolved Supervision of high-risk resolved Migraine headache acute [facility] Work Phone: Evaluation note* Diagnosis Onset Date Resolution Status Asthma acute Anemia in preg-unspec resolv ed H/O herpes genitalis resolve d Sivan's disease resolved [id number] resolved History of proteinuria syndrome resolved resolved Supervision of high-risk resolved Asthma acute Anemia in preg-unspec resolv ed H/O herpes genitalis resolve d Sivan's disease resolved [id number] resolved History of proteinuria syndrome resolved resolved Supervision of high-risk resolved Asthma acute Anemia in preg-unspec resolv ed H/O herpes genitalis resolve d Sivan's disease resolved [id number] resolved History of proteinuria syndrome resolved resolved Supervision of high-risk resolved Asthma acute Anemia in preg-unspec resolv ed H/O herpes genitalis resolve d Sivan's disease resolved [id number] resolved History of proteinuria syndrome resolved resolved Supervision of high-risk resolved Trauma during reso lved Asthma acute Anemia in preg-unspec resolv ed H/O herpes genitalis resolve d Sivan's disease resolved [id number] resolved History of proteinuria syndrome resolved resolved Supervision of high-risk resolved Asthma acute Anemia in preg-unspec resolv ed H/O herpes genitalis resolve d Sivan's disease resolved [id number] resolved History of proteinuria syndrome resolved Oligohydramnios in third trimester resolved resolved Supervision of high-risk resolved Asthma acute Anemia in preg-unspec resolv ed H/O herpes genitalis resolve d Sivan's disease resolved [id number] resolved History of proteinuria syndrome resolved Oligohydramnios in third trimester resolved resolved Supervision of high-risk resolved Care and examination of lactating mother noneactive Migraine headache acute nipple pain nonea ctive Care and examination of lactating mother noneactive Routine Follow-Up noneactive [facility] Work Phone: Evaluation note* Diagnosis Onset Date Resolution Status Rh negative status during acute H/O herpes genitalis resolve d Sivan's disease resolved [id number] resolved History of proteinuria syndrome resolved Supervision of high-risk resolved Asthma acute Rh negative status during acute Anemia in preg-unspec resolv ed H/O herpes genitalis resolve d Sivan's disease resolved [id number] resolved History of proteinuria syndrome resolved resolved Supervision of high-risk resolved Asthma acute Gestational diabetes mellitu s (GDM) affecting , antepartum acute Rh negative status during acute Anemia in preg-unspec resolv ed H/O herpes genitalis resolve d Sivan's disease resolved [id number] resolved History of proteinuria syndrome resolved resolved Supervision of high-risk resolved Asthma acute Gestational diabetes mellitu s (GDM) affecting , antepartum acute Rh negative status during acute Anemia in preg-unspec resolv ed H/O herpes genitalis resolve d Sivan's disease resolved [id number] resolved History of proteinuria syndrome resolved resolved Supervision of high-risk resolved Asthma acute Gestational diabetes mellitu s (GDM) affecting , antepartum acute Rh negative status during acute Anemia in preg-unspec resolv ed H/O herpes genitalis resolve d Sivan's disease resolved [id number] resolved History of proteinuria syndrome resolved resolved Supervision of high-risk resolved Trauma during reso lved Asthma acute Gestational diabetes mellitu s (GDM) affecting , antepartum acute Rh negative status during acute Anemia in preg-unspec resolv ed H/O herpes genitalis resolve d Sivan's disease resolved [id number] resolved History of proteinuria syndrome resolved resolved Supervision of high-risk resolved Asthma acute Gestational diabetes mellitu s (GDM) affecting , antepartum acute Rh negative status during acute Anemia in preg-unspec resolv ed H/O herpes genitalis resolve d Sivan's disease resolved [id number] resolved History of proteinuria syndrome resolved Oligohydramnios in third trimester resolved resolved Supervision of high-risk resolved Asthma acute Gestational diabetes mellitu s (GDM) affecting , antepartum acute Rh negative status during acute Vaginal delivery acute Anemia in preg-unspec resolv ed H/O herpes genitalis resolve d Sivan's disease resolved [id number] resolved History of proteinuria syndrome resolved Oligohydramnios in third trimester resolved resolved Supervision of high-risk resolved [facility] Work Phone: Evaluation note* Diagnosis Dysuria- Primary documented in this encounter [facility] Work Phone: Evaluation note* Diagnosis Fatigue, unspecified type- Primary Sivan's thyroiditis Chronic lymphocytic thyroiditis Iron deficiency anemia, unspecified iron deficiency anemia type Diet controlled gestational diabetes mellitus (GDM) in third trimester (HHS-HCC) Pain of left heel Acute pain of left foot Acute left ankle pain Mild persistent asthma without complication (HHS-HCC) documented in this encounter [facility] Work Phone: Evaluation note* Diagnosis Acute pain of right shoulder- Primary Vitamin D deficiency Iron deficiency anemia, unspecified iron deficiency anemia type Sivan's thyroiditis Chronic lymphocytic thyroiditis Acute right-sided thoracic back pain documented in this encounter [facility] Work Phone: History and physical note Author Brandi Pacheco [facility] December 18, 2023 7:02pm Note Date/Time December 18, 2023 6:54 pm [facility] Medical Records Department [address] [place] [address] OB Triage Physician Note 12/18/23 1852 MR#: [id number] Acct: [id number] Name: JOHNY FREED Rep #:[id number] : 2000 23 From: Brandi Freeman DO PCP: CURTIS Mena Status:REG CLI Y Location: [place] [id number] HPI - General HPI Narrative JOHNY FREED, [...] WG Current Estimate 01/02/24 LMP (Certain) 37w 6d [facility] Medical History (Updated 12/18/23 @ 18:[address] Brandi Freeman, DO) Abnormal glucose affecting H/O herpes genitalis Oligohydramnios Shoulder dystocia during labor and delivery Home Medications multivit-min no.71-iron fum 28 mg-folate no.1 1 mg-dha 300 mg capsule (PNV- [place]) 1 cap PO DAILY 05/16/23 [History Last Taken 12/18/23 08:00 1 cap] blood sugar diagnostic (Blood Glucose Test strips) #120 ea 10/25/23 [Rx Last Taken Unknown] blood-glucose meter #1 ea 10/25/23 [Rx Last Taken Unknown] lancets #200 ea 10/25/23 [Rx Last Taken Unknown] flash glucose scanning reader (FreeStyle Sanjay 2 Ona) #1 ea 10/30/23 [Rx Last Taken Unknown] [...] History of throat surgery History of tonsillectomy [place] teeth extracted Social History adopted: No household [...] in: walking frequency: daily duration: 30-45 minutes/day stacey/rastafarian: Ep[employer]opalian seatbelt use: always do you feel safe [...] live - [facility] 8#[facility] Date: 11/07/21 Last Updated by: [...] Multi Select Codes Visit Charges Office Visit/Consults: 87511 OV L3 Est 20min 12/18/23 1902 <Electronically signed by Brandi Adhikari DO> Date _ Brandi Freeman DO Cosigner Signature (if applicable): Date CC: Dr. Brandi Freeman DO; CURTIS Mena ~ Signed [facility] Work Phone: History of Present illness [id number]-lakt-sya G1 presents for follow-up viability ultrasound. Patient notes more breast tenderness nausea recently. Minimal cramps but no bleeding. Patient has no acute concerns.[address] Work Phone: History of Present illness [...] - ordered given some of her symptoms -[facility] Work Phone: History of Present illness Iltnmfauo01-ngpp-xao G1, P1 presents for concern for yellow discharge and a lot of pain. Patient strongly anxious with baby in her recovery. Patient is no other acute concerns[facility]are[facility] Work Phone: [phone] of Present illness Nzqntyfrh87-edyi-muo presents for 6-week status post spontaneous vaginal delivery. Patient doing well. Patient struggled with constipation despite Colace twice a day. Patient drinking tons of waterfor breast-feeding. Infant doing well. Patient not sexually active. Patient is no period. Patient like discussed control. Patient is no other acute concernsWomencareNano[facility] Work Phone: [phone] of Present illness Narrative* 21 YOF presents [...] seasonal allergies. * She had COVID-19 09/2021. [facility] Work Phone: History of Present [...] is doing well. She cont to breastfeed [facility] Work Phone: History of Present illness Narrative* [...] is doing well. She cont to breastfeed [facility] Work Phone: History of Present illness Narrative* Pt. presents for annual exam * up to date on pap * Still with bothersome scar tissue from perineal repair at last , did use estrogen cream for a while * d/c contraception and open to next , will start folic acid [address] Work Phone: History of Present illness Narrative* Alexa Lancaster, ART-PROPOSAL DIRECTOR - 02/08/2023 9:40 AM EDT Subjective Patient [...] [facility] Discharge instructions* Activity:Return to [...] call 911 or go to [facility] room. *Information obtained from JASMYNE s: Save Your Life: Get Care for These POST- Warning SignsOn Behalf on the [facility] Maternity Staff, Congratulations on your infant. It [...] us a call. Also, please join our [facility] Support Group which meets the saturday of every month at 10 am in the OB unit. No need to register. If you have any questions please call us at [phone]. Again, Congratulations! Warmest Regards,[facility]'s Maternity Staff [facility] Author Ara Roach [facility] December 14, 2023 8:19am Note Date/Time December 14, 2023 8:19 am [facility] Medical Records Department [address] [place] [address] Progress Note - OBGYN 12/14/23 0817 MR#: [id number] Acct: [id number] Name: JOHNY FREED Rep #:[id number] : 2000 23 From: Ara Roach CNM PCP: CURTIS Mena Status:ADM IN Location: [id number] Subjective Subjective Patient doing well without complaints. [...] delivery: COMMENT: iol oligo gdma1 sm girl Kate PLAN: s/p PPD # 1 1. routine post delivery care 2. breast feeding- support given, information systems consultant to see today 3. rh positive 4. rubella immune 5. d/c home today 12/14/23818 <Electronically signed by Ara Roach CNM> Cosigner Signature (if applicable): CC: ~ Signed [facility] Work Phone: Reason for referral (narrative)No reason for referral information availableWDunlap [facility] Work Phone: Summary Purpose Family History No Family History [...] Malignant neoplasm of colon 60 Advance Directives No Advanced Directives Records Found Advance Directive Response Recorded Date/ Time Living Will No October 16 6:42pm Power of Yellow [employer] Space Salesperson No October 16 6:42pm Advance Directive Response Recorded Date/ Time Living Will No November 3:12pm Power of Yellow [employer] Space Salesperson No December 12, 2023 3:12pm Advance Directive Response Recorded Date/ Time Living Will No November 4:12pm Power of Yellow [employer] Space Salesperson No December 12, 2023 4:12pm Advance Directive Response Recorded Date/ Time Do you have a Healthcare Power of Yellow Pages Space Salesperson? No April 05, 2025 3:18pm Reason for Referral Status Reason Specialty Diagnoses / Procedures Referred By Contact Referred To Contact New Request Procedures ECG Marybel Bustos PA-C [address] [place] [address] Discharge Instructions * Instructions* Marybel Bustos PA-C - 10/31/2020 Your blood work is normal, heart testing normal, and imaging normal today. Follow up with cardiology for further evaluation of passing out and palpitations. * Attachments The following attachments cannot be sent through Care Everywhere. * Palpitations (Liberian) * Fainting (Liberian) documented in this encounter Assessments Diagnosis Syncope, [...] Visit Asthma H/O herpes genitalis Sivan's disease [id number] Rh negative status during Supervision of high-risk History of labor, current Seasonal allergies History of pre-eclampsia in prior , currently Chief Complaint NOB LMP 03/28 13 WK OB 18 WK OB Elevated TPO INT LABS Reason for Visit Asthma H/O herpes genitalis [id number] Rh negative status during 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 History of labor, current Seasonal allergies History of pre-eclampsia in prior , currently Asthma H/O herpes genitalis [id number] Rh negative status during 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 Asthma H/O herpes genitalis [id number] Rh negative status during 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 Chief Complaint NOB LMP 03/28 13 WK OB 18 WK OB Elevated TPO INT LABS BP check, weight check Reason for Visit Asthma H/O herpes genitalis [id number] Rh negative status during 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 History of labor, current Seasonal allergies History of pre-eclampsia in prior , currently Asthma H/O herpes genitalis [id number] Rh negative status during 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 Asthma H/O herpes genitalis [id number] Rh negative status during 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 H/O herpes genitalis [id number] History of proteinuria syndrome Rh negative status during 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 Chief Complaint 13 WK OB 18 WK OB Elevated TPO INT LABS BP check, weight check Reason for Visit Asthma H/O herpes genitalis [id number] Rh negative status during 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 Asthma H/O herpes genitalis [id number] Rh negative status during 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 H/O herpes genitalis [id number] History of proteinuria syndrome Rh negative status during 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 Chief Complaint 13 WK OB 18 WK OB Elevated TPO INT LABS BP check, weight check SYNCOPAL Reason for Visit Asthma H/O herpes genitalis [id number] Rh negative status during 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 Asthma H/O herpes genitalis [id number] Rh negative status during 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 H/O herpes genitalis [id number] History of proteinuria syndrome Rh negative status during 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 Chief Complaint 18 WK OB Elevated TPO INT LABS BP check, weight check SYNCOPAL 29 WK OB VENOFER 300MG Abnormal glucose complicating Reason for Visit Asthma H/O herpes genitalis [id number] Rh negative status during 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 H/O herpes genitalis [id number] History of proteinuria syndrome Rh negative status during 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 Anemia in preg-unspec Asthma H/O herpes genitalis [id number] History of proteinuria syndrome Rh negative status during 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 Chief Complaint 18 WK OB Elevated TPO INT LABS BP check, weight check SYNCOPAL 29 WK OB VENOFER 300MG Abnormal glucose complicating 31 WK OB GESTATIONAL DIABETES Reason for Visit Asthma H/O herpes genitalis [id number] Rh negative status during 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 H/O herpes genitalis [id number] History of proteinuria syndrome Rh negative status during 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 Anemia in preg-unspec Asthma H/O herpes genitalis [id number] History of proteinuria syndrome Rh negative status during 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 Anemia in preg-unspec Asthma Gestational diabetes mellitus (GDM) affecting , antepartum H/O herpes genitalis [id number] History of proteinuria syndrome Rh negative status during 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 Chief Complaint Elevated TPO INT LABS BP check, weight check SYNCOPAL 29 WK OB VENOFER 300MG Abnormal glucose complicating 31 WK OB GESTATIONAL DIABETES 33 WK OB 35 WK OB FALL Reason for Visit Sivan's disease H/O herpes genitalis [id number] History of proteinuria syndrome Rh negative status during 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 Anemia in preg-unspec Asthma H/O herpes genitalis [id number] History of proteinuria syndrome Rh negative status during 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 Anemia in preg-unspec Asthma Gestational diabetes mellitus (GDM) affecting , antepartum H/O herpes genitalis [id number] History of proteinuria syndrome Rh negative status during 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 Anemia in preg-unspec Asthma Gestational diabetes mellitus (GDM) affecting , antepartum H/O herpes genitalis [id number] History of proteinuria syndrome Rh negative status during 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 Anemia in preg-unspec Asthma Gestational diabetes mellitus (GDM) affecting , antepartum H/O herpes genitalis [id number] History of proteinuria syndrome Rh negative status [...] d uring H/O herpes genitalis Sivan's disease [id number] History of proteinuria syndrome Supervision of high-risk Asthma Rh negative status during Anemia in preg-unspec H/O herpes genitalis Sivan's disease [id number] History of proteinuria syndrome Supervision of high-risk Asthma Gestational diabetes mellitus (GDM) affecting , antepartum Rh negative status during Anemia in preg-unspec H/O herpes genitalis Sivan's disease [id number] History of proteinuria syndrome Supervision of high-risk Asthma Gestational diabetes mellitus (GDM) affecting , antepartum Rh negative status during Anemia in preg-unspec H/O herpes genitalis Sivan's disease [id number] History of proteinuria syndrome Supervision of high-risk Asthma Gestational diabetes mellitus (GDM) affecting , antepartum Rh negative status during Anemia in preg-unspec H/O herpes genitalis Sivan's disease [id number] History of proteinuria syndrome Supervision of high-risk Trauma during Asthma Gestational diabetes mellitus (GDM) affecting , antepartum Rh negative status during Anemia in preg-unspec H/O herpes genitalis Sivan's disease [id number] History of proteinuria syndrome Supervision of high-risk Asthma Gestational diabetes mellitus (GDM) affecting , antepartum Rh negative status during Anemia in preg-unspec H/O herpes genitalis Sivan's disease [id number] History of proteinuria syndrome Oligohydramnios in third trimester Supervision of high-risk Asthma Gestational diabetes mellitus (GDM) affecting , antepartum Rh negative status during Vaginal delivery Anemia in preg-unspec H/O herpes genitalis Sivan's disease [id number] History of proteinuria syndrome Oligohydramnios in third [...] in preg-unspec H/O herpes genitalis Sivan's disease [id number] History of proteinuria syndrome Supervision of high-risk Asthma Anemia in preg-unspec H/O herpes genitalis Sivan's disease [id number] History of proteinuria syndrome Supervision of high-risk Asthma Anemia in preg-unspec H/O herpes genitalis Sivan's disease [id number] History of proteinuria syndrome Supervision of high-risk Asthma Anemia in preg-unspec H/O herpes genitalis Sivan's disease [id number] History of proteinuria syndrome Supervision of high-risk Trauma during Asthma Anemia in preg-unspec H/O herpes genitalis Sivan's disease [id number] History of proteinuria syndrome Supervision of high-risk Asthma Anemia in preg-unspec H/O herpes genitalis Sivan's disease [id number] History of proteinuria syndrome Oligohydramnios in third trimester Supervision of high-risk Asthma Anemia in preg-unspec H/O herpes genitalis Sivan's disease [id number] History of proteinuria syndrome Oligohydramnios in third [...] d uring H/O herpes genitalis Sivan's disease [id number] History of proteinuria syndrome Supervision of high-risk Asthma Rh negative status during Anemia in preg-unspec H/O herpes genitalis Sivan's disease [id number] History of proteinuria syndrome Supervision of high-risk Asthma Gestational diabetes mellitus (GDM) affecting , antepartum Rh negative status during Anemia in preg-unspec H/O herpes genitalis Sivan's disease [id number] History of proteinuria syndrome Supervision of high-risk Asthma Gestational diabetes mellitus (GDM) affecting , antepartum Rh negative status during Anemia in preg-unspec H/O herpes genitalis Sivan's disease [id number] History of proteinuria syndrome Supervision of high-risk Asthma Gestational diabetes mellitus (GDM) affecting , antepartum Rh negative status during Anemia in preg-unspec H/O herpes genitalis Sivan's disease [id number] History of proteinuria syndrome Supervision of high-risk Trauma during Asthma Gestational diabetes mellitus (GDM) affecting , antepartum Rh negative status during Anemia in preg-unspec H/O herpes genitalis Sivan's disease [id number] History of proteinuria syndrome Supervision of high-risk Asthma Gestational diabetes mellitus (GDM) affecting , antepartum Rh negative status during Anemia in preg-unspec H/O herpes genitalis Sivan's disease [id number] History of proteinuria syndrome Oligohydramnios in third trimester Supervision of high-risk Asthma Gestational diabetes mellitus (GDM) affecting , antepartum Rh negative status during Vaginal delivery Anemia in preg-unspec H/O herpes genitalis Sivan's disease [id number] History of proteinuria syndrome Oligohydramnios in third [...] 2025 8:18a m *EST* NOB LMP 02/01, TSARR 11/08April 05, 2025 10:39am Reason for Visit [...] Sivan's thyroi ditis April 05, 2025 10:39am Chief Complaint Admit Date 2 Y FU March 11, 2025 8:18a m *EST* NOB LMP 02/01, STARR 11/08April 05, 2025 10:39am 2wk D&C FU April 30, 2025 9:55 am Reason for Visit Admit Date March 11, 2025 8:18a m Hypothyroidism due [...] Sivan's thyroi ditis April 05, 2025 10:39am Missed April 30, 2025 9:55 am Chief Complaint Admit Date 2 Y FU March 11, 2025 8:18a m *EST* NOB LMP 02/01, STARR 11/08April 05, 2025 10:39am 2wk D&C FU April 30, 2025 9:55 am Post op bleeding FU May 13, 2025 2:40 pm Reason for Visit Admit Date 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 March 11, 2025 8:18am March 11, 2025 8:18a m Anxiety April 05, 2025 10:3 9am Asthma April 05, 2025 10:3 9am Autoimmune thyroiditis April 05, 2025 1 0:39am Chronic anemia April 05, 2025 10:3 9am H/O herpes genitalis April 05, 2025 10: 39am History of gestational diabetes mellitus (GDM) April 05, 2025 10:39am History of gestational hypertension April 05, 2025 10:39am History of marijuana use April 05, 2025 10:39am Hx of shoulder dystocia in p rior , currently April 05, 2025 10:39am 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 April 05, 2025 10:39am Migraine headache April 05, 2025 10:3 9am Missed April 05, 2025 10:3 9am April 05, 2025 10:3 9am Rectocele April 05, 2025 10:3 9am Rh negative state in antepartum period J une 2024 10:39am Supervision of high-risk April 05, 2025 10:39am Missed April 30, 2025 9:55 am Abnormal uterine bleeding May 13 2:40pm Ovarian cyst May 13, 2025 2:40 pm Additional Source Comments INFORMATION SOURCE (unrecogn ized section and content) DATE CREATED AUTHOR 01/04/2019 [facility] DATE CREATED AUTHOR AUTHOR'S ORGANIZ ATION 06/19/2019 [facility] DATE CREATED AUTHOR AUTHOR'S ORGANIZ ATION 11/10/2020 [facility] DATE CREATED AUTHOR AUTHOR'S ORGANIZ ATION 01/04/2023 [facility] [place] DATE CREATED AUTHOR AUTHOR'S ORGANIZ ATION 2023 [facility] DATE CREATED AUTHOR AUTHOR'S ORGANIZ ATION 06/02/2023 [employer] DATE CREATED AUTHOR AUTHOR'S ORGANIZ ATION 03/02/2024 [facility] DATE CREATED AUTHOR AUTHOR'S ORGANIZ ATION 08/11/2024 [facility] DATE CREATED AUTHOR AUTHOR'S ORGANIZ ATION 01/02/2025 [facility] DATE CREATED AUTHOR AUTHOR'S ORGANIZ ATION 01/18/2025 [facility] DATE CREATED AUTHOR AUTHOR'S ORGANIZ ATION 03/20/2025 [facility] DATE CREATED AUTHOR AUTHOR'S ORGANIZ ATION 03/24/2025 [facility] DATE CREATED AUTHOR AUTHOR'S ORGANIZ ATION 05/15/2025 [facility] Reason for Visit (unrecogniz ed section and [...] Care Teams (unrecognized sec tion and content) Ropeman Relationship Specialty Start Date End Date Chrystal Alamo PA-C [address] [place] [address] PCP - General 06/16/19 Chrystal Alamo PA-C [address] [place] [address] PCP - [facility] PCP 05/14/22 Ropeman Relationship Specialty Start Date End Date Chrystal Alamo PA-C [address] [place] [address] PCP - General 06/16/19 Chrysatl Alamo PA-C [address] [place] [address] PCP - [facility] PCP 05/14/22 Team Status: Active Member Role Status Dates Chrystal Cally PA, PA Primary Care Provider Active Team Status: Inactive Member Role Status Dates Chrystal Cally PA, PA Primary Care Provider, Referr ing Provider Active Dr. Esme Baker MD Attending Provider Active Team Status: Inactive Member Role Status Dates Chrystal Cally PA, PA Primary Care Provider Active Dr. Esme Baker MD Attending Provider, Referr ing Provider Active Team Status: Inactive Member Role Status Dates Chrystal Tesuque PA, PA Primary Care Provider, Referr ing Provider Active Dr. Brandi Freeman DO Attending Provider Activ e Team Status: Inactive Member Role Status Dates Chrystal Tesuque PA, PA Primary Care Provider, Referr ing Provider Active Marybel Torres CNM Attending Provider Active Team Status: Inactive Member Role Status Dates Chrystal Cally PA, PA Primary Care Provider, Referr ing Provider Active Dr. Anson Richter MD Attending Provider Active Team Status: Inactive Member Role Status Dates Chrystalann-marie WrightTesuque PA, PA Primary Care Provider Active Dr. Brandi Freeman DO Attending Provider, Refe rring Provider Active Team Status: Inactive Member Role Status Dates Chrystal Cally PA, PA Primary Care Provider Active Dr. Anson Richter MD Attending Provider, Referring Provi adrian Active Team Status: Inactive Member Role Status Dates Chrystal Cally PA, PA Primary Care Provider, Referr ing Provider Active Bethany Cedillo [employer], [employer]-C Attending Provider Active Team Status: Inactive Member Role Status Dates Chrystal Tesuque PA, PA Primary Care Provider Active Bethany Cedillo [employer], [employer]-C Attending Provider, Referring Provider Active Team Status: Inactive Member Role Status Dates Chrystal Cally PA, PA Primary Care Provider Active Dr. Fermín Rodrigues MD Emergency Provider Active Ropeman Relationship Specialty Start Date End Date Chrystal Alamo B, PA-C [address] [place] [address] PCP - General 06/16/19 Chrystal Alamo B, PA-C [address] [place] [address] [facility] - [facility] P[facility] 05/14/22 Team Status: Inactive Member Role Status Dates Chrystalann-marie Vallejoall PA, PA Primary Care Provider Active Marybel Torres CNM Attending Provider, Referring Pro vider Active Team Status: Inactive Member Role Status Dates Chrystalann-marie WrightTesuque PA, PA Primary Care Provider Active Dr. Fermín Rodrigues MD Attending Provider, Emergency Provi adrian Active Team Status: Inactive Member Role Status Dates Chrystal Cally PA, PA Primary Care Provider Active Marybel Torres CNM Attending Provider Active Team Status: Active Member Role Status Dates Chrystal Tesuque PA, PA Primary Care Provider Active Dr. Brandi Freeman DO Attending Provider, Referring Provider, Other Provider Active Team Status: Active Member Role Status Dates Chrystalann-marie WrightTesuque PA, PA Primary Care Provider Active Dr. Esme Baker MD Admit Provid er, Attending Provider, Other Provider Active Team Status: Inactive Member Role Status Dates Chrystalann-marie WrightTesuque PA, PA Primary Care Provider, Referr ing Provider Active Cee Alston [employer], [employer]-C Attending Provider Active Team Status: Active Member Role Status Dates Chrystalann-marie Alamo PA, PA Primary Care Provider Active Dr. Esme Baker MD Admit Provider, Other Prov ider Active Ara Roach CNM Attending Provider Active Team Status: Inactive Member Role Status Dates Chrystal Alamo PA, PA Primary Care Provider Active Dr. Esme Baker MD Admit Provider, Attending Provider Active Ropeman Relationship Specialty Start Date End Date Chrystal Alamo B, PA-C [address] [place] [address] PCP - General 06/16/19 Chrystal Alamo B, PA-[place] [address] [place] [address] [facility] 05/14/22 Ropeman Relationship Specialty Start Date End Date Chrystal Alamo B, PA-C [address] [place] [address] PCP - General 06/16/19 Chrystal Alamo PA-C [address] [place] [address] [facility] Ropeman Relationship Specialty Start Date End Date Chrystal Alamo PA-C [address] [place] [address] PCP - General 06/16/19 Chrystal Alamo PA-C [address] [place] [address] PCP - [facility] PCP 05/14/22 Team Status: Inactive Member Role [...] Keyes Primary Care Provider Active Start: December 24, [...] March 11, 2025 End: March 11, 2025 Chrystal Alamo PA, PA Referring Provider Active Start: [...] April 05, 2025 End: April 05, 2025 Chrystal Alamo PA, PA Referring Provider Active Start: April 05, 2025 End: April 05, 2025 Dr. Brandi Freeman , Attending Provider Activ e Start: April 05, 2025 End: April 05, 2025 Team Status: Active Member Role Status Dates Chrystalann-marie Alamo PA, PA Primary Care Provider Active Start: April 05, 2025 Dr. Brandi Freeman DO Attending Provider Activ e Start: April 05, 2025 Dr. Brandi Freeman DO Referring Provider Activ e Start: April 05, 2025 Team Status: Active Member Role Status Dates Chrystalann-marie Alamo PA, PA Primary Care Provider Active Start: April 06, 2025 Dr. Esme Baker MD Attending Provider Active Start: April 06, 2025 Dr. Esme Baker MD Other Provider Active Start: April 06, 2025 Team Status: Inactive Member Role Status Dates Chrystalann-marie Alamo PA, PA Primary Care Provider Active Start: April 06, 2025 End: April 06, 2025 Dr. Esme Baker MD Attending Provider Active Start: April 06, 2025 End: April 06, 2025 Dr. Esme Baker MD Referring Provider Active Start: April 06, 2025 End: April 06, 2025 Team Status: Active Member Role/Relationship Status Dates Chrystal Cally PA, PA Primary Care Provider Active Team Status: Inactive Member Role/Relationship Status Dates Chrystal Tesuque PA, PA Primary Care Provider Active Start: December 22, 2024 End: December 22, 2024 Chrystalann-marie Alamo PA, PA Referring Provider Active Start: December 22, 2024 End: December 22, 2024 Dr. Esme Baker MD Attending Provider Active Start: December 22, 2024 End: December 22, 2024 Team Status: Inactive Member Role/Relationship Status Dates Chrystalann-marie Alamo PA, PA Primary Care Provider Active Start: December 22, 2024 End: December 22, 2024 Dr. Esme Baker MD Attending Provider Active Start: December 22, 2024 End: December 22, 2024 Dr. Esme Baker MD Referring Provider Active Start: December 22, 2024 End: December 22, 2024 Team Status: Inactive Member Role/Relationship Status Dates Chrystal Cally PA, PA Primary Care Provider Active Start: December 24, 2024 End: December 24, 2024 Dr. Esme Baker MD Attending Provider Active Start: December 24, 2024 End: December 24, 2024 Dr. Esme Baker MD Referring Provider Active Start: December 24, 2024 End: December 24, 2024 Team Status: Inactive Member Role/Relationship Status Dates Chrystal Cally PA, PA Primary Care Provider Active Start: March 11, 2025 End: March 11, 2025 Chrystalann-marie Alamo PA, PA Referring Provider Active Start: March 11, 2025 End: March 11, 2025 Dr. Anson Richter MD Attending Provider Active Sta rt: March 11, 2025 End: March 11, 2025 Team Status: Inactive Member Role/Relationship Status Dates Chrystalann-marie Alamo PA, PA Primary Care Provider Active Start: March 11, 2025 End: March 11, 2025 Dr. Anson Richter MD Attending Provider Active Sta rt: March 11, 2025 End: March 11, 2025 Dr. Anson Richter MD Referring Provider Active Sta rt: March 11, 2025 End: March 11, 2025 Team Status: Inactive Member Role/Relationship Status Dates Chrystalann-marie Alamo PA, PA Primary Care Provider Active Start: April 05, 2025 End: April 05, 2025 Chrystalann-marie Alamo PA, PA Referring Provider Active Start: April 05, 2025 End: April 05, 2025 Dr. Brandi Freeman DO Attending Provider Activ e Start: April 05, 2025 End: April 05, 2025 Team Status: Inactive Member Role/Relationship Status Dates Chrystalann-marie Alamo PA, PA Primary Care Provider Active Start: April 05, 2025 End: April 05, 2025 Dr. Brandi Freeman DO Attending Provider Activ e Start: April 05, 2025 End: April 05, 2025 Dr. Brandi Freeman DO Referring Provider Activ e Start: April 05, 2025 End: April 05, 2025 Team Status: Active Member Role/Relationship Status Dates Chrystal Alamo PA, PA Primary Care Provider Active Start: April 06, 2025 Dr. Esme Baker MD Attending Provider Active Start: April 06, 2025 Dr. Esme Baker MD Other Provider Active Start: April 06, 2025 Team Status: Inactive Member Role/Relationship Status Dates Chrystalann-marie Alamo PA, PA Primary Care Provider Active Start: April 06, 2025 End: April 06, 2025 Dr. Esme Baker MD Attending Provider Active Start: April 06, 2025 End: April 06, 2025 Dr. Esme Baker MD Referring Provider Active Start: April 06, 2025 End: April 06, 2025 Team Status: Inactive Member Role/Relationship Status Dates Chrystal Tesuque PA, PA Primary Care Provider Active Start: March 11, 2025 End: March 11, 2025 Chrystalann-marie Alamo PA, PA Referring Provider Active Start: March 11, 2025 End: March 11, 2025 Dr. Anson Richter MD Attending Provider Active Sta rt: March 11, 2025 End: March 11, 2025 Team Status: Inactive Member Role/Relationship Status Dates Chrystalann-marie Alamo PA, PA Primary Care Provider Active Start: March 11, 2025 End: March 11, 2025 Dr. Anson Richter MD Attending Provider Active Sta rt: March 11, 2025 End: March 11, 2025 Dr. Anson Richter MD Referring Provider Active Sta rt: March 11, 2025 End: March 11, 2025 Team Status: Inactive Member Role/Relationship Status Dates Chrystal Tesuque PA, PA Primary Care Provider Active Start: April 05, 2025 End: April 05, 2025 Chrystalann-marie Alamo PA, PA Referring Provider Active Start: April 05, 2025 End: April 05, 2025 Dr. Brandi Freeman DO Attending Provider Activ e Start: April 05, 2025 End: April 05, 2025 Team Status: Inactive Member Role/Relationship Status Dates Chrystal Tesuque PA, PA Primary Care Provider Active Start: April 05, 2025 End: April 05, 2025 Dr. Brandi Freeman DO Attending Provider Activ e Start: April 05, 2025 End: April 05, 2025 Dr. Brandi Freeman DO Referring Provider Activ e Start: April 05, 2025 End: April 05, 2025 Team Status: Active Member Role/Relationship Status Dates Chrystalann-marie Alamo PA, PA Primary Care Provider Active Start: April 06, 2025 Dr. Esme Baker MD Attending Provider Active Start: April 06, 2025 Dr. Esme Baker MD Other Provider Active Start: April 06, 2025 Team Status: Inactive Member Role/Relationship Status Dates Chrystalann-marie Alamo PA, PA Primary Care Provider Active Start: April 06, 2025 End: April 06, 2025 Dr. Esme Baker MD Attending Provider Active Start: April 06, 2025 End: April 06, 2025 Dr. Esme Baker MD Referring Provider Active Start: April 06, 2025 End: April 06, 2025 Team Status: Inactive Member Role/Relationship Status Dates CURTIS Keyes Primary Care Provider Active Start: April 30, 2025 End: April 30, 2025 Chrystal ACEVEDO PA Referring Provider Active Start: April 30, 2025 End: April 30, 2025 Dr. Esme Baker MD Attending Provider Active Start: April 30, 2025 End: April 30, 2025 Team Status: Inactive Member Role/Relationship Status Dates hCrystal ACEVEDO PA Primary Care Provider Active Start: May 13, 2025 End: May 13, 2025 Chrystal ACEVEDO PA Referring Provider Active Start: May 13, 2025 End: May 13, 2025 Dr. Esme Baker MD Attending Provider Active Start: May 13, 2025 End: May 13, 2025 Team Status: Active Member Role/Relationship Status Dates CURTIS Keyes Primary Care Provider Active Start: May 13, 2025 Dr. Esme Baker MD Attending Provider Active Start: May 13, 2025 Goals (unrecognized section and content) Goals [...] BE BASED ON THE PRIMARY CLINICAL RECORDS. [facility]. provides no warranty or guarantee of the accuracy or completeness of information in this document.
[2025-05-15 12:54] LABS: hCG Titer Quant., Serum 13 mIU/mL (<9 non-preg)
== END | disposition home or self-care (01) ==
LOC: LAB 11:43
PROVIDERS: PCP Physician Assistant Medical; Referring Provider Obstetrics & Gynecology; Visit Provider Obstetrics & Gynecology
DX: N93.9 Abnormal uterine and vaginal bleeding, unspecified (principal)
CPT/HCPCS: 36415; 84702

== ENCOUNTER → 2025-06-24 | Outpatient (CLI) | payer OTHER, MEDICAID, SELFPAY ==
--- NOTE | 2025-06-24 12:55 | US_ITS ---
PROCEDURE: PELVIC W/ TRANSVAGINAL 06/24/2025 REASON FOR EXAM: OVARIAN CYST TECHNIQUE: Procedure Code: [id number] Modality: US Procedure: PELVIC W/ TRANSVAGINAL COMPARISON: Prior study dated February 08, 2025. FINDINGS: Measurements: Uterus: 10.7 cm x 8.1 cm x 5.7 cm with a volume of 258.4 mL Endometrial Thickness: 10 mm Right Ovary: 2.7 cm x 2.1 cm x 1.4 cm with a volume of 3.9 mL. Left Ovary: 3.9 cm x 2.7 cm x 2.2 cm with a volume of 12.2 mL. Uterus: Unremarkable Endometrium: Heterogeneous appearance of the endometrium with small cystic spaces. Right ovary: Normal size and echotexture. Left ovary: Normal size and echotexture. Other: No large pelvic mass identified. US/Pelvic w/ Transvaginal IMPRESSION: Heterogeneous appearance of the endometrium with small cystic spaces. Reading Location: [id number]
== END | disposition home or self-care (01) ==
LOC: US 12:55
PROVIDERS: PCP Physician Assistant Medical; Referring Provider Obstetrics & Gynecology; Visit Provider Obstetrics & Gynecology
DX: N83.209 Unspecified ovarian cyst, unspecified side (principal)
CPT/HCPCS: 76830; 76856

== ENCOUNTER 2025-08-15 10:47 | Emergency (ER) | payer OTHER, MEDICAID, SELFPAY ==
[2025-08-15 10:48] VITALS: BP 118/79; PULSE 100; RESP 14; TEMP 36.8; O2SAT 100; BMI 24.3
[2025-08-15 13:02] VITALS: BP 124/73; PULSE 84; RESP 16; TEMP 36.6; O2SAT 100
--- NOTE | 2025-08-15 17:17 | EX.ED.DYSGE1 ---
HPI History of Present Illness Chief Complaint: Rash Narrative Narrative: Patient is a 25-year-old female presenting to the emergency department for a rash. Patient is A1, 4 weeks and 3 days . Patient has not had a formal ultrasound done given gestational age. She has no abdominal pain, vaginal spotting or leakage of fluids. She states that 3 days ago she was helping a friend move and was using trash bags that were noted to be rodent repellent. States that the next morning she woke up and had red itchy bumps on her arms, abdomen and legs. She denies any fevers or chills. Denies any nausea or vomiting, denies diarrhea. States she feels otherwise well. She denies any chest pain, shortness of breath. Has been taking benadryl for symptomatic control at home. Last took this morning at 8:30 AM. She reports she called her OBGYNs office this AM to tell them about the rash and the nurse told her to come to the ED to be evaluated. 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 Autoimmune thyroiditis Vaginal delivery Oligohydramnios Gestational diabetes mellitus (GDM) affecting , antepartum Abnormal glucose affecting Shoulder dystocia during labor and delivery Rh negative status during H/O herpes genitalis Home Medications ?Medication ?Instructions ?Recorded ?Last Taken ?Type levothyroxine 50 mcg tablet 50 mcg PO QDAY #90 tabs 03/11/25 04/06/25 Rx albuterol sulfate 90 mcg/actuation 2 puff inhalation Q6H PRN 03/26/25 Unknown History aerosol inhaler (Ventolin HFA) shortness of breath or wheezing cholecalciferol (vitamin D3) 50 50 mcg PO QDAY 03/26/25 Unknown History mcg (2,000 unit) capsule buspirone 5 mg tablet 5 mg PO BID PRN 06/22/25 Unknown History omeprazole 40 mg capsule,delayed 40 mg PO QDAY 06/22/25 Unknown History release Allergy/AdvReac Type Severity Reaction Status Date / Time Latex, Natural Rubber Allergy Mild Itching Verified 08/15/25 10:48 hydrocodone (From Vicodin) Allergy other Verified 08/15/25 10:48 hydromorphone (From Dilaudid) AdvReac Intermediate passed out Verified 08/15/25 10:48 Family History Grandmother Ovarian cancer, Onset Age: 70 Paternal great grandmother Colon cancer, Onset Age: 60 Paternal Surgical History History of throat surgery History of tonsillectomy [place] teeth extracted Social History adopted: No household members: spouse and children housing: house number of children: 2 current occupational status: unemployed current occupation: [employer] pets and animals: Yes pets and animals: dog(s) history of recent travel: No sexually active: Yes Smoking Status: Former smoker quit date: 03/15/21 pack-years: 4 Tobacco: How many years used: 2 Electronic Cigarette Use: with nicotine alcohol intake: current alcohol intake frequency: holidays/special occasions only details: not while substance use type: former substance user and marijuana well-balanced diet: daily or most days caffeine: No eating out: rarely or never during the past year weight has: decreased > 10 lbs what type of physical activity do you participate in: walking frequency: 1-2 times per week duration: 30-45 minutes/day stacey/buddhism: Catholic seatbelt use: always do you feel safe at home: Yes additional social history: Shawn MONCADA ROS ED ROS Narrative see HPI EXAM Physical Exam Narrative Exam Narrative: Vital signs: Reviewed General: Alert and orientedx3. No acute distress HEENT: Head is normocephalic and atraumatic, sinuses nontender, pupils equal round and reactive. Nares are patent. Oropharynx and throat exams normal. No tongue, lip or posterior pharynx swelling or erythema. No mucosal lesions. Neck: Supple without lymphadenopathy nontender Cardiovascular: Regular rate and rhythm, no murmurs. No rubs or gallops. Normal S1 and S2 Respiratory: Clear to auscultation bilaterally. No wheezes, rales, rhonchi Abdominal: Soft and nontender to palpation. Normal bowel sounds. No guarding or rebound. Nonsurgical abdomen Extremities: No tenderness. No bruising. Normal range of motion. Normal sensation. Skin: Faint raised bumpy rash on forearms, abdomen and upper thighs. No petechiae, bullae, abscesses or evidence of cellulitis. No mucosal involvement. No rash on the palms or soles. Neurological: Cranial nerves II through XII are grossly intact. Normal strength and sensation. Normal cerebellar function The rest of the physical exam is unremarkable Const Vital Signs: 08/15/25 10:48 08/15/25 13:02 Temperature 98.3 F 97.8 F Temperature Source Oral Pulse Rate 100 84 Respiratory Rate 14 16 Blood Pressure 118/79 124/73 H Blood Pressure Mean 92 90 Pulse Ox 100 100 Oxygen Delivery Method Room Air MDM MDM MDM Narrative Medical decision making narrative: Patient is a 25-year-old female presenting to the emergency department for a rash for the past 3 days. Patient was seen and examined. Vitals are stable. Patient resting bed comfortably no acute distress. Patient has no symptoms related to her . No nausea, vomiting, abdominal pain, vaginal bleeding or discharge. Has no wheezing, mouth, tongue swelling, GI symptoms. Consistent with a contact dermatitis. I did speak with her OB, Dr. Baker, who is not sure why the nurse sent her in to be evaluated and has no further recommendations. Given the patient's I will not place her on steroids. I recommended that she continue taking Benadryl for the itching. I explained that her symptoms will slowly improve over the next few days. She cannot think of any other irritant including soaps, new laundry detergents or foods that could have caused the symptoms. Patient discharged from the Emergency Department. I do not feel that the patient's evaluation reveals any acute reason for admission at this time. I instructed them to either follow-up with their primary care physician or promptly return to the Emergency Department for reevaluation should symptoms worsen or new symptoms develop. I explained what symptoms would indicate the need to return to the emergency department. Shared decision making was used. The patient voiced understanding of the treatment plan and is agreeable with it. Clinical impression Contact dermatitis History & Record Review Discussion w/independent historian: Patient Discharge Plan Triage Chief Complaint: Rash ED Provider: Sadaf Yusuf Dx/Rx/DC Orders Clinical Impression: Contact dermatitis Instructions: ED Contact Dermatitis Prescriptions: No Action cholecalciferol (vitamin D3) 50 mcg (2,000 unit) capsule 50 mcg PO QDAY albuterol sulfate [Ventolin HFA] 90 mcg/actuation HFA aerosol inhaler 2 puff inhalation Q6H PRN (Reason: shortness of breath or wheezing) buspirone 5 mg tablet 5 mg PO BID PRN omeprazole 40 mg capsule,delayed release(DR/EC) 40 mg PO QDAY levothyroxine 50 mcg tablet 50 mcg PO QDAY Qty: 90 3RF Primary Care Provider: Nicole Harrington Referrals: Nicole Harrington PA [Primary Care Provider, Medical] - As soon as possible Activity Restrictions/Additional Instructions: Continue taking the Benadryl as needed for itching. You should start to see improvement over the next few days. Your evaluation in the Emergency Department did not reveal any acute reason for admission. However, I want to emphasize that you may be early in the course of a disease process or illness even if it is not present. For this reason you should follow-up within 24 hours for reevaluation with either your primary care physician or if necessary back here in the Emergency Department. You should return to the Emergency Department immediately if your symptoms worsen or new symptoms develop. Print Language: Pashto Disposition Disposition: Home, Self Care Discharge Date/Time: 08/15/25 13:03
== END 2025-08-15 13:03 | disposition home or self-care (01) ==
PROVIDERS: Emergency Provider Student in an Organized Health Care Education/Training Program; PCP Physician Assistant Medical; Visit Provider Student in an Organized Health Care Education/Training Program
DX: O99.711 Diseases of the skin and subcutaneous tissue complicating pregnancy, first trimester (principal); Z3A.01 Less than 8 weeks gestation of pregnancy; L25.9 Unspecified contact dermatitis, unspecified cause; Z87.891 Personal history of nicotine dependence; E03.9 Hypothyroidism, unspecified; Z79.890 Hormone replacement therapy; O99.281 Endocrine, nutritional and metabolic diseases complicating pregnancy, first trimester
CPT/HCPCS: 99282

== ENCOUNTER → 2025-08-23 | Outpatient (CLI) | payer OTHER, MEDICAID, SELFPAY ==
[2025-08-23 15:43] LABS: hCG Titer Quant., Serum 4088 mIU/mL (<9 non-preg)
== END | disposition home or self-care (01) ==
LOC: LAB 14:14
PROVIDERS: PCP Physician Assistant Medical; Referring Provider Obstetrics & Gynecology; Visit Provider Obstetrics & Gynecology
DX: N91.2 Amenorrhea, unspecified (principal); Z87.59 Personal history of other complications of pregnancy, childbirth and the puerperium
CPT/HCPCS: 36415; 84702

== ENCOUNTER → 2025-08-25 | Outpatient (CLI) | payer OTHER, MEDICAID, SELFPAY ==
[2025-08-25 16:26] LABS: hCG Titer Quant., Serum 8681 mIU/mL (<9 non-preg)
== END | disposition home or self-care (01) ==
LOC: LAB 14:30
PROVIDERS: PCP Physician Assistant Medical; Referring Provider Obstetrics & Gynecology; Visit Provider Obstetrics & Gynecology
DX: Z34.90 Encounter for supervision of normal pregnancy, unspecified, unspecified trimester (principal)
CPT/HCPCS: 36415; 84702

== ENCOUNTER → 2025-08-27 | Outpatient (CLI) | payer OTHER, MEDICAID, SELFPAY ==
[2025-08-27 17:37] LABS: hCG Titer Quant., Serum 16716 mIU/mL (<9 non-preg)
== END | disposition home or self-care (01) ==
PROVIDERS: PCP Physician Assistant Medical; Visit Provider Obstetrics & Gynecology
DX: Z34.90 Encounter for supervision of normal pregnancy, unspecified, unspecified trimester (principal)
CPT/HCPCS: 36415; 84702

== ENCOUNTER → 2025-09-01 | Outpatient (CLI) | payer OTHER, MEDICAID, SELFPAY ==
--- NOTE | 2025-09-01 10:16 | US_ITS ---
PROCEDURE: TRANSVAGINAL W/PREG US 09/01/2025 REASON FOR EXAM: THREATENED TECHNIQUE: Procedure Code: [id number] Modality: US Procedure: TRANSVAGINAL W/PREG US COMPARISON: June 24, 2025. FINDINGS: Comments: LMP: July 20, 2025. Number of Gestational Sacs: 1 Gestational Sac Shape: Normal Number of Fetuses: 1 Heart Rate: 114 beats per minute (average) Yolk Sac: Present and unremarkable. Placenta: Presently not well-visualized Amniotic Fluid Volume: Subjectively normal for gestational age. Uterine Abnormalities: Maternal uterus is unremarkable. Ovaries / Adnexa: Neither maternal ovary is successfully identified. DIMENSIONS: Parameter Measurement / EGA [place] Rump Length: 6 mm/6 weeks and 4 days Gestational Sac: 1.8 cm/6 weeks and 5 days. I suspect a small subchorionic bleed surrounding the gestational sac. Yolk Sac: 4 mm/ ESTIMATED GESTATIONAL AGE: By Ultrasound: 6 weeks and 1 day By LMP: 6 weeks and 5 days ESTIMATED DATE OF DELIVERY: By Ultrasound: April 26, 2026 By LMP: April 22, 2026 US/Transvaginal w/Preg US IMPRESSION: Single live intrauterine gestation with a mean gestational age of 6 weeks and 5 days. Small subchorionic bleed. Reading Location: [facility]
== END | disposition home or self-care (01) ==
LOC: US 10:14
PROVIDERS: PCP Physician Assistant Medical; Referring Provider Obstetrics & Gynecology; Visit Provider Obstetrics & Gynecology
DX: O20.0 Threatened abortion (principal); Z3A.00 Weeks of gestation of pregnancy not specified
CPT/HCPCS: 76817

== ENCOUNTER → 2025-09-07 | Outpatient (CLI) | payer OTHER, MEDICAID, SELFPAY ==
[2025-09-07 11:58] LABS: Hematocrit 33.9 % (37-47); Hemoglobin 11.4 g/dL (12.0-15.0); Immature Granulocytes Count 0.050 X10^3/uL (0.0-0.0); Mean Corp Hgb Conc 33.6 g/dL (32-36); Mean Corpuscular Volume 82.9 fL (81-99); Mean Platelet Vol. 9.3 fl (6.2-12.0); NRBC Flagged by Analyzer 0 % (0-5); Platelet Count 266 K/mm3 (150-450); RBC Distribution Width CV 14.0 % (11.6-14.6); RBC Distribution Width SD 42.3 fl (35.1-43.9); Red Blood Count 4.09 M/mm3 (4.2-5.4); White Blood Count 7.2 K/mm3 (4.4-11.0)
[2025-09-07 13:12] LABS: Barbiturate Urine NEGATIVE (< 200 ng/mL); Benzodiazepine Urine NEGATIVE (< 200 ng/mL); PCP Urine NEGATIVE (< 25 ng/mL); THC Urine NEGATIVE (< 50 ng/mL)
[2025-09-07 13:26] LABS: HIV Nonreactive (Nonreactive); Hepatitis B Surface Antigen Nonreactive (Nonreactive); Hepatitis C Antibody Nonreactive (Nonreactive); Syphilis Antibodies Nonreactive (Nonreactive)
[2025-09-08 20:08] LABS: Chlamydia By Nucleic Acid AMP Negative (Negative); Gonococcus By Nucleic Acid AMP Negative (Negative)
== END | disposition home or self-care (01) ==
LOC: BWCLAB 11:35
PROVIDERS: PCP Physician Assistant Medical; Visit Provider Obstetrics & Gynecology
DX: O09.299 Supervision of pregnancy with other poor reproductive or obstetric history, unspecified trimester (principal); Z86.32 Personal history of gestational diabetes; O99.280 Endocrine, nutritional and metabolic diseases complicating pregnancy, unspecified trimester; E06.3 Autoimmune thyroiditis; O99.320 Drug use complicating pregnancy, unspecified trimester; F12.99 Cannabis use, unspecified with unspecified cannabis-induced disorder; Z3A.00 Weeks of gestation of pregnancy not specified
CPT/HCPCS: 36415; 80307; 83036; 84439; 84443; 85025; 86376; 86703; 86762; 86780; 86803; 86850; 86900; 86901; 87086; 87340; 87491; 87591

== ENCOUNTER → 2025-10-06 | Outpatient (CLI) | payer OTHER, MEDICAID, SELFPAY ==
--- OUTSIDE RECORDS SUMMARY | 2025-10-06 11:26 | XMS RPT_ITS | CCD ---
Author Organization [facility] Care Team Providers Care Woodwork Teacher Name Role Phone MILADIS DOHERTY Admitting UnavailMILADIS John Attending Unavailabl e AA NO PCP, NO PCP Primary Care Unavailable Chrystal Alamo Unavailable Unavailable Chrystal Alamo Unavailable Unavailable Vianney Guerra Unavailable Unavailable Alexa Beyer Unavailable Unavailable Wallace Lion Unavailable Unavailable Chrystal Alamo Primary Care Provider Chrystal Alamo Unavailable Unavailable Unavailable Chrystal Alamo Unavailable Vianney Guerra Unavailable Ferny Zamora Unavailable Unavailable Paulino Christian Unavailable ZOIE ALAMO Attending ZOIE Chambers Referring ZOIE Chambers Primary Care Lacho Chawla, Ms. Kayleigh Peters Attending Unavail mirian Chawla, Ms. Kayleigh Peters Referring Unavail able ZOIE ALAMO Primary Care ZOIE Chambers Referring ZOIE Chambers Primary Care ZOIE Chambers Attending Dr. Tayler Gamez Attending Sasha Santiago, Dr. Tayler Butcher Referring Yesiv ZOIE Lu Primary Care Ms. Rochelle Heath Referring Unavailabl e CALLY, PA-C CHRYSTAL B Primary Care Lacho Boyer, Ms. Rochelle Marie Attending Unavailabl e CALLY, PA-C CHRYSTAL B Referring Unavai lable CALLY, PA-C CHRYSTAL B Primary Care Unavai lable CALLY, PA-C CHRYSTAL B Attending Unavai lable CALLY, PA-C CHRYSTAL B Attending Unavai lable CALLY, PA-C CHRYSTAL B Referring Unavai lable CALLY, PA-C CHRYSTAL B Primary Care Unavai lable Clifton PA-C, Chrystal B Primary Care Provider Clifton PA-C, Chrystal B Unavailable Cally, Ms. Rivera Zoya Primary Care Yesi jonathon Lancaster, MsAgatha Carrington Attending Unavailab le Cally PA, PA Chrystal Primary Care Provider Clifton PA, PA Chrystal Referring Provider Dr. Esme Baker Attending Provider [phone] Dr. Brandi Freeman Attending Provider OTF Torres Attending Provider Dr. Anson Richter Attending Provider Clifton PA, PA Chrystal Primary Care Provider Cally PA, PA Chrystal Referring Provider Dr. Esme Baker Attending Provider Dr. Brandi Freeman Attending Provider OTF Torres Attending Provider Dr. Anson Richter Attending Provider Nguyen APPOINTMENT CLERK, APPOINTMENT CLERK-Eugenia Sims Attending Provider Clifton PA, PA Chrystal Primary Care Provider Clifton PA, PA Chrystal Referring Provider Cally PA, PA Chrystal Primary Care Provider Cally PA, PA Chrystal Referring Provider Dr. Brandi Freeman Attending Provider Clifton PA, PA Chrystal Primary Care Provider Clifton PA, PA Chrystal Referring Provider OTF Torres Attending Provider Dr. Esme Baker Attending Provider Cally PA, PA Chrystal Primary Care Provider Clifton PA, PA Chrystal Referring Provider Dr. Brandi Freeman Referring Provider Dr. Brandi Freeman Other Provider Dr. Esme Baker Admit Provider Dr. Esme Baker Other Provider OTF Roach Attending Provider Fortune APPOINTMENT CLERK, APPOINTMENT CLERK-C Cee Attending Provider Cally PA, PA Chrystal Primary Care Provider Clifton PA, PA Chrystal Referring Provider OTF Torres Attending Provider Dr. Brandi Freeman Attending Provider Dr. Esme Baker Attending Provider Dr. Brandi Freeman Referring Provider Dr. Brandi Freeman Other Provider Dr. Esme Baker Admit Provider Dr. Esme Baker Other Provider OTF Roach Attending Provider Fortune APPOINTMENT CLERK, APPOINTMENT CLERK-C Cee Attending Provider CALLY, CHRYSTAL B Primary Care Unavailable CALLY, CHRYSTAL B Primary Care Unavailable CALLY, CHRYSTAL B Primary Care Unavailable CALLY, CHRYSTAL B Primary Care Unavailable Clifton PA-C, Chrystal B Primary Care Provider Clifton PA-C, Chrystal B Unavailable CALLY, CHRYSTAL [facility] Primary Care Unavaila LEVAR Unger Attending Unavailable Clifton PA-C, Chrystal B Primary Care Provider Cally PA-C, Chrystal B Unavailable Cally PA, Chrystal Primary Care Provider Dr. Anson Richter MD Attending Provider Dr. Anson Richter MD Referring Provider Cally PA, Chrystal Referring Provider Dr. Esme Baker MD Attending Provider Dr. Esme Baker MD Referring Provider [phone] Cally PA, Chrystal Primary Care Provider Dr. Anson Richter MD Attending Provider Dr. Anson Richter MD Referring Provider Dr. Brandi Freeman DO Attending Provider Dr. Brandi Freeman DO Referring Provider Dr. Esme Baker MD Other Provider Cally PA, Chrystal Primary Care Provider Cally PA, Chrystal Referring Provider Dr. Esme Baker MD Attending Provider Dr. Esme Baker MD Referring Provider [phone] Clifton PA, Chrystal Primary Care Physician Cally PA, Chrystal Referring Provider Dr. Brandi Freeman DO Attending Physician Dr. Esme Baker MD Attending Physician Dr. Esme Baker MD Nurse Practitioner CALLY, CHRYSTAL B Attending Unavailable CALLY, CHRYSTAL B Primary Care Unavailable CALLY, CHRYSTAL B Attending Unavailable CALLY, CHRYSTAL B Primary Care Unavailable CALLY, CHRYSTAL B Attending Unavailable CALLY, CHRYSTAL B Primary Care Unavailable CALLY, CHRYSTAL B Attending Unavailable CALLY, CHRYSTAL B Primary Care Unavailable CALLY, CHRYSTAL B Attending Unavailable CALLY, CHRYSTAL B Primary Care Unavailable Clifton PA-C, Chrystal B Unavailable CALLY, CHRYSTAL B Primary Care Unavailable FERNY ZAMORA Attending Unavailable TANI AVERY Attending Unavailable CALLY, CHRYSTAL B Referring Unavailable CALLY, CHRYSTAL B Primary Care Unavailable Clifton PA, [facility] Care Unavailabl e Esme Baker Consulting Unavailable Esme Baker Attending Unavailable Clifton PA, [facility] UnavailEsme Shepard Attending Unavailable Cally PA, Chrystal Referring Unavailabl e Anson Richter Attending Unavailable Clifton PA, [facility] Care Unavailabl e Clifton PA, Chrystal Referring Unavailabl e Vande VelBrandi zacarias Referring Unavailabl e Brandi Freeman Attending Unavailabl e Clifton PA, [facility] Unavailabl e Vande VelBrandi zacarias Attending Unavailabl e Cally PA, [facility] Unavailabl e Clifton PA, Chrystal Referring Unavailabl e Clifton PA, [facility] Unavailabl e Cally PA, Chrystal Referring Unavailabl Esme Arredondo Attending Unavailable Cally PA, [facility] Care Unavailabl e Cally PA, [place] Referring Unavailabl e Esme Baker Attending Unavailable Cally PA, [place] Primary Care UnavailEsme Shepard Attending Unavailable Clifton PA, Chrystal Referring Unavailabl e Clifton PA, [facility] Care Unavailabl e Esme Baker Attending Unavailable Clifton PA, [facility] Care UnavailEsme Shepard Attending Unavailable Esme Baker Referring Unavailable Anson Richter Attending Unavailable Cally PA, [facility] Care Unavailabl e Anson Richter Referring Unavailable Sadaf Yusuf Attending Unavailable Cally PA, [facility] Unavailabl e Cally ACEVEDO, [facility] Unavailabl e Olivia, Esme Referring Unavailable Olivia, Esme Attending Unavailable Anson Richter Referring Unavailable Anson Richter Attending Unavailable Cally ACEVEDO, [facility] Unavailabl e Cally PA, [facility] Unavailabl e Marcanthony, Esme Referring Unavailable Marcanthony, Esme Attending Unavailable Cally ACEVEDO, [facility] Unavailabl e Marcanthony, Esme Referring Unavailable Marcanthony, Esme Attending Unavailable Clifton PA, [facility] Unavailabl e Marcanthony, Esme Referring Unavailable Olivia, Esme Attending Unavailable Brandi Freeman Referring Unavailabl e Brandi Freeman Attending Unavailabl e Cally ACEVEDO, [facility] Unavailabl e Allergies Allergy Classification Reported Allergen(s) Allergy Type Date of Onset Reaction(s) Facility Acetaminophen / HYDROcodone (12 sources) Acetaminophen / HYDROcodone; Translations: [Vicodin TABS] Drug Allergy [facility] [address] Work Phone: Latex (20 sources) Latex rubber gloves; Translations: [Latex Gloves] Substance Allergy [address] Work Phone: Opioid Agonists (20 sources) HYDROmorphone; Translations: [Dilaudid] Drug Allergy [facility] [address] Work Phone: (20 sources) Acetaminophen / HYDROcodone; Translations: [Vicodin TABS] Drug Allergy 1 [facility], Other [facility] Work Phone: (20 sources) HYDROcodone; Translations: [hydrocodone] Drug Allergy 3 [facility], [facility] Work Phone: Comment on above: "it makes me pass ou t" (20 sources) HYDROmorphone; Translations: [Dilaudid] Drug Allergy [facility] Work Phone: (20 sources) HYDROmorphone; Translations: [HYDROMORPHONE] Drug Allergy 1 [facility], Other [facility] (20 sources) Latex rubber gloves; Translations: [Latex Gloves] Allergy to drug (finding) [facility] [address] Work Phone: (20 sources) natural latex rubber; Translations: [LATEX] Allergy to substance (finding) 3 [facility] (13 sources) guaiFENesin / HYDROcodone Drug Allergy 3 Other [facility] (12 sources) Latex Allergy to substance 3 [facility] Work Phone: (20 sources) natural latex rubber Allergy to substance 3 Itching [facility] Comment on above: redness (4 sources) Acetaminophen Drug Allergy 4 other [facility] (5 sources) Acetaminophen / HYDROcodone; Translations: [HYDROCODONE-ACET AMINOPHEN] Drug Allergy 3 [facility] (3 sources) HYDROCODONE-GUAIF ENESIN; Translations: [HYDROCODONE-GUAI FENESIN] Propensity to adverse reactions to drug (disorder) 3 [facility] (1 source) Acetaminophen Drug Allergy 4 [facility] (1 source) HYDROmorphone Drug Allergy 5 [facility] (1 source) natural latex rubber Drug allergy (disorder) 5 [facility] Repository Medications Current Medications Medication Drug [...] 20-Sep-2021 Active take 1 capsule by mo [facility] twice daily acyclovir 200 mg oral capsule ; 1 cap(s) orally 2 times a day Quantity: 0 Refills: 0 Ordered: 20-Sep-2021 Selina Lacey Status: Discontinued Generic Substitution Allowed [id number] 200 actuat albuter ol 0.09 mg/actuat metered dose inhaler (20 sources) beta2-Adrenergic Agonist Start: 03-26-2025 Start: 01-30-2023 End: 01-30-2024 take 2 puff(s) by inhalation every four hours for wheezing albuterol (Ventolin HFA) 90 mcg/actuation inhaler Indications: Moderate persistent asthma without complication ([facility]) Inhale 2 puffs every 4 hours if [...] hours Quantity: 42 Refills: 0 Ordered: 29-Dec-2021 Cammy CORDOVA-CERAMIC TILERKayleigh Start : 29-Dec-2021 End : 12-Jan-2022 Complete [...] Test fasting and 2 hours after meals busPIRone hydrochloride 5 mg oral tablet (7 sources) Start: 06-22-2025 take 1 tablet by lizzette twice daily as needed Start: 06-09-2025 End: 06-09-2026 take 1 tablet by mouth three times daily as needed for anxiety busPIRone (Buspar) 5 mg tablet Indications: SOPHIA (generalized anxiety disorder) Take 1 tablet (5 mg) by mouth 3 times a day as needed (anxiety). 90 tablet 06/10/2025 11:54 AM EDT 06/09/2025 06/09/2026 Active Start: 02-16-2021 take 1 tablet by lizzette three times daily busPIRone HCl - 10 MG Oral Tablet TAKE 1 TABLET 3 TIMES DAILY. Quantity: 90 Refills: 1 Ordered: 16-Feb-2021 Cally LINOChrystal Start : 16-Feb-2021 Active cholecalciferol 0.05 mg oral capsule (15 sources) Vitamin D Start: 03-26-2025 take 1 capsule by mo [facility] once daily take 1 tablet by mouth once felipe [...] (three) times a week. 0 03/05/2022 Active famotidine 20 mg oral tablet (6 sources) Histamine-2 Receptor Antagonist Start: 07-21-2025 take 1 tablet by mouth twice daily in the evening famotidine (Pepcid) 20 mg tablet Indications: Dyspepsia Take 1 tablet (20 mg) by mouth 2 times a day. 60 tablet 5 07/25/2025 5:22 PM EDT 07/21/2025 Active Start: 12-25-2024 End: 07-21-2025 take 1 tablet by mouth twice daily famotidine (Pepcid) 20 mg tablet Take 1 tablet (20 mg) by mouth twice a day. 12/25/2024 07/21/2025 Discontinued (Reorder) ferrous gluconate 324 mg oral tablet (6 sources) take 1 tablet by mouth once daily at breakfast ferrous gluconate (Fergon) 324 (38 Fe) mg tablet Take 1 tablet by mouth once daily with breakfast. Active ibuprofen 600 mg oral tablet (7 sources) Nonsteroidal Anti-inflammatory Drug Start: take 1 [...] Paulino Christian Start: 08-Nov-2021 Generic Substitution Allowed levothyroxine sodium 0.05 mg oral tablet (20 sources) l-Thyroxine Start: 07-12-2024 End: 03-11-2025 take 1 tablet by mouth in the morning levothyroxine (Synthroid, Levoxyl) 50 mcg tablet Take 1 tablet (50 mcg) by mouth early in the morning.. 11/10/2024 Active methylPREDNISolone (1 source) Corticosteroid Start: 01-05-2025 End: 01-11-2025 methylPREDNISolone (Medrol Dospak) 4 mg tablets Indications: Acute pain of right shoulder , Acute right-sided thoracic back pain Take as directed on package. 21 tablet 01/05/2025 01/11/2025 Active omeprazole 40 mg delayed release oral capsule (6 sources) Proton Pump Inhibitor Start: 06-22-2025 take 1 capsule by mouth once daily Start: 06-09-2025 End: 12-06-2025 take 1 capsule by mouth once daily omeprazole (PriLOSEC) [address] capsule Indications: Dyspepsia Take 1 capsule (20 mg) by mouth once daily. Do not crush or chew. 30 capsule 5 06/10/2025 11:54 AM EDT 06/09/2025 12/06/2025 Active ondansetron 4 mg disintegrating oral tablet (6 sources) Serotonin-3 Receptor Antagonist Start: 12-25-2024 End: 06-09-2025 take 1 tablet by mouth every eight hours as needed for nausea and nausea ondansetron ODT (Zofran-ODT) 4 mg disintegrating tablet Indications: Nausea Dissolve 1 tablet (4 mg) in the mouth every 8 hours if needed for nausea. 30 tablet 06/10/2025 11:54 AM EDT 06/09/2025 Active no115/iron/folic acid ( 19 ORAL) (9 sources) no115/iron/folic acid ( 19 ORAL) Take by [...] DO Start : 29-Dec-2021 Complete bifidobacterium animalis [id number] unt / lactobacillus acidophilus [id number] unt oral capsule (20 sources) End: 10-18-2023 take 1 capsule by mouth once daily L. acidophilus/Bifid . animalis 32 billion cell capsule Take 1 capsule by mouth once daily. 0 10/18/2023 Discontinued (Therapy completed) Probiotic CAPS Q uantity: 0 Refills: 0 Ordered: 19-Dec-2021 DO Active Blood-Glucose Meter misc (13 sources) Start: 10-25-2023 End: 12-22-2024 Blood-Glucose Meter [...] USE Quantity: 1 Refills: 3 Ordered: 24-Jan-2022 [id number] Seth Start : 24-Jan-2022 Active Blanka 0.35 MG Oral Tablet (11 sources) Start: 01-24-2022 take 1 tablet by mouth once daily Blanka 0.35 MG Oral Tablet TAKE 1 TABLET DAILY. Quantity: 1 Refills: 11 Ordered: 24-Jan-2022 [id number] DO, Brett Start : 24-Jan-2022 Active Start: [...] / neomycin 3.5 mg/ml / polymyxin b 12636 unt/ml ophthalmic suspension (1 source) Aminoglycoside Antibacterial, Polymyxin-class Antibacterial, Corticosteroid Start: 11-22-2020 take 2 drop(s) into the eye(s) four times daily Rkfpxjfq-Oykxlhkra-Jfkskyjd [id number] Ophthalmic Suspension INSTILL 2 DROPS INTO LEFT [...] Start: 09-08-2019 take 1 capsule by mo [facility] twice daily as needed Colace 100 MG Oral Capsule TAKE 1 CAPSULE TWICE DAILY NEEDED. Refills: 0 DO Start : 08-Sep-2019 Active Oco-Sm-Eeztkcxek 0.18/0.215/0.25 MG-25 MCG Oral Tablet (3 sources) Progestin, Estrogen Start: 09-08-2019 take 1 tablet by mouth once daily Qms-Ih-Ewakxgpbk 0.18/0.215/0.25 MG-25 MCG Oral Tablet TAKE 1 [...] TWICE DAILY. Quantity: 60 Refills: 5 Chrystal Almao PA-C Start : 08-Sep-2019 Active take 1 tablet by lizzette th once daily ferrous sulfate (as elemental iron) 45 mg oral tablet, extended release ; 1 tab(s) orally once a day Quantity: 0 Refills: 0 Ordered: 20-Sep-2021 Selina Lacey Generic Substitution Allowed Flash Glucose Scanning Reade r (Freestyle Sanjay [place]) misc (18 sources) Start: 10-30-2023 End: 12-22-2024 Flash Glucose Scanning Reade r (Freestyle Sanjay 2 [place]) misc Discontinued 0 .Route 1 0 October 30, 2023 1:00am December 22, 2024 9:36am As directed Start: 10-30-2023 End: 12-22-2024 Flash Glucose Scanning Reade r (Freestyle Sanjay 2 [place]) misc Discontinued 0 .Route 1 October 30, 2023 1:00am December 22, 2024 9:36am As directed Start: 10-30-2023 Flash Glucose Scanning [place] (Freestyle Sanjay 2 [place]) misc Active 0 .Route 1 October 30, 2023 1:00am As directed Start: 10-30-2023 Flash Glucose Scanning [place] (Freestyle Sanjay 2 [place]) misc Active 0 .Route 1 October 30, 2023 12:00am As directed Flash Glucose Sensor (Freest yle Sanjay 2 Sensor) kit (18 sources) Start: 10-30-2023 End: 12-22-2024 Flash Glucose [...] iohexol (OMNIPAQUE) 350 MG/ML injection 75 mL loratadine 10 mg oral tablet (7 sources) Start: 02-13-2022 take 1 tablet by mouth once daily as needed Loratadine 10 MG Oral Tablet TAKE 1 TABLET DAILY prn allergies Quantity: 30 Refills: 2 Ordered: 13-Feb-2022 Chrystal Alamo PA-C Start : 13-Feb-2022 Active Mv-Mins 25-Zoij-Qqmpn No.1-Dha (Pnv-[place]) 28-1-300 mg capsule (20 sources) Start: 05-16-2023 End: 06-22-2025 Mv-Mins 94-Dcpt-Csgwn No.1-Dha (Pnv-[place]) 28-1-300 mg capsule Discontinued 1 NMA PO DAILY May 16, 2023 12:00am June 22, 2025 3:05pm Start: 05-16-2023 Mv-Mins 71-Iro n-Folic No.1-Dha (Pnv-[place]) 28-1-300 mg capsule Active 1 NMA PO DAILY May 16, 2023 12:00am Start: 05-16-2023 take 1 capsule by mo ut once daily Mv-Mins 72-Xovf-Butiq No.1-Dha (Pnv-[place]) 28-1-300 mg capsule Active 1 CAP PO DAILY May 16, 2023 12:00am Start: 05-16-2023 take 1 capsule by mo uth once daily Mv-Mins 65-Hclw-Rhwku No.1-Dha ([place]nv-[place]) 28-1-300 mg capsule Active 1 CAP PO DAILY May 15, 2023 11:00pm Start: 05-16-2023 take 1 capsule by mouth once M v-Mins 40-Idqc-Cffex No.1-Dha ([place]nv-[place]) 28-1-300 mg capsule Active CAP PO May 15, 2023 11:00pm Start: 05-16-2023 take 1 capsule by mouth once M v-Mins 73-Ckoa-Kwtvq No.1-Dha ([place]nv-[place]) 28-1-300 mg capsule Active CAP PO May 16, 2023 12:00am nitrofurantoin, macrocrystals 100 mg oral capsule (1 source) Nitrofuran Antibacterial Start: 06-16-2024 End: 11-24-2024 nitrofurantoin (Macrodantin) 100 mg capsule TAKE 1 CAPSULE BY MOUTH TWICE DAILY for 3, 5 or 7 days 06/16/2024 11/24/2024 Discontinued (Therapy completed) norethindrone acetate 5 mg oral tablet (5 sources) Start: 05-13-2025 End: 06-22-2025 Norethindrone Acetate 5 mg tablet Discontinued 5 mg PO .COMPLEX 30 0 May 13, 2025 12:00am June 22, 2025 3:05pm 5 mg PO BID x 3 days and then once daily for remainder predniSONE 10 mg oral tablet (7 sources) [...] completed) take 1 tablet by mouth once fleipe y vitamin #49-iron-FA (Mini ) 6.75 mg [...] Inhibitor Antibacterial, Sulfonamide Antimicrobial Start: 10-11-20 End: 10-20-19 20 take 1 tablet by [...] should be taken with plenty of water. Zma-Vm-Biwnyxrce 0.18/0.215/0.25 MG-25 MCG Oral Tablet (5 sources) Start: 09-08-20 19 take 1 tablet by mouth once daily Uwn-Rk-Jfrpmthse 0.18/0.215/0.25 MG-25 MCG Oral Tablet TAKE 1 TABLET DAILY. Quantity: 1 Refills: 11 Ordered: 19-Dec-2021 Paulino Christian DO Start : 08-Sep-2019 Active valACYclovir 500 mg oral tablet (17 sources) Herpesvirus Nucleoside Analog DNA Polymerase Inhibitor, [...] 3 01-30-2023 Episodic Deficiency and other anemia (6 sources) Iron deficiency anemia, unspecified; Translations: [Iron deficiency anemia, unspecified] Onset: 3 Episodic Deficiency and other anemia (18 sources) Chronic anemia; Translations: [Anemia, unspecified] 03-26-2025 Episodic Comment on above: Had reaction to iron infusions Diabetes mellitus without complication (5 sources) Abnormal glucose tolerance test; Translations: [Impaired glucose tolerance test (oral)] Episodic Fetopelvic disproportion; obstruction (1 source) Obstructed labor due to shoulder dystocia; Translations: [Shoulder (girdle) dystocia, delivered, with or without mention of antepartum condition] Onset: 2 11-08-2021 Episodic Genitourinary symptoms and ill-defined conditions (20 sources) Increased frequency of urination; Translations: [Urinary frequency] Onset: 5 09-17-2023 Episodic Comment on above: 1st . [...] status] Onset: 9 Episodic Malaise and fatigue (17 sources) Malaise and fatigue; Translations: [Other malaise and fatigue] 11-24-2024 Episodic Menopausal disorders (8 sources) Atrophic vaginitis; Translations: [Postmenopausal atrophic vaginitis] Chronic Menstrual disorders (11 sources) Menorrhagia; Translations: [Excessive or frequent menstruation] Onset: 5 06-22-2025 Chronic Comment on above: if no menses by july draw labs. Mood disorders (20 sources) Mild major depression, single episode; Translations: [Major depressive affective disorder, single episode, mild] Onset: 3 01-30-2023 Chronic Nausea and vomiting (3 sources) Nausea; Translations: [Nausea] Onset: 5 06-09-2025 Episodic Nausea and vomiting (1 source) Vomiting, unspecified; Translations: [VOMITING UNSPECIFIED] Onset: 9 Noninfectious gastroenteritis (4 sources) Noninfective gastroenteritis and colitis, unspecified; Translations: [Noninfective gastroenteritis and colitis, unspecified] Onset: 5 Episodic Nonspecific chest pain (20 sources) Atypical chest pain; Translations: [Other chest pain] Onset: 5 06-09-2025 Episodic Nutritional deficiencies (4 sources) Vitamin D deficiency; Translations: [Vitamin D deficiency, unspecified] Onset: 5 01-05-2025 Chronic OB-related trauma to perineum and vulva (2 sources) Second degree perineal laceration during delivery 11-08-2021 Episodic Other aftercare (1 source) Other [facility] (current) drug therapy; Translations: [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 1st Other complications of (3 sources) Supervision of with history of pre-term labor, unspecified trimester; Translations: [ with history of pre-term labor] 05-27-2023 Episodic Other complications of (16 sources) Traumatic injury during ; Translations: [Injury, [...] or complication] 11-27-2023 Episodic Other complications of (20 sources) Missed miscarriage; Translations: [Missed ] 04-05-2025 [...] Translations: [Chalazion] Episodic Other female genital disorders (20 sources) Abnormal uterine bleeding; Translations: [Abnormal uterine [...] on above: plan valtrex around delivery Other lower respiratory disease (20 sources) Dyspnea; [...] joints of left foot] 11-24-2024 Episodic Other nutritional; endocrine; and metabolic disorders (20 sources) Ketosis; Translations: [Other specified metabolic disorders] [...] rhinitis, cause unspecified] 05-27-2023 Chronic Ovarian cyst (13 sources) Cyst of ovary; Translations: [Unspecified ovarian cyst, unspecified side] Onset: 5 05-13-2025 Episodic Comment on above: right complex 3-[address] Polyhydramnios and other problems of amniotic cavity (20 sources) Oligohydramnios; Translations: [Oligohydramnios, third trimester, not [...] health status] 11-06-2021 Episodic Residual codes; unclassified (18 sources) History of gestational hypertension; Translations: [Personal history of other complications of , childbirth and the puerperium] 03-26-2025 Episodic Comment on above: 1st Residual codes; unclassified (1 source) H/O: miscarriage; Translations: [Personal history of other complications of , childbirth and the puerperium] 06-03-2025 Episodic Sprains and strains (4 sources) Sprain of interphalangeal joint of left little finger, initial encounter; Translations: [Sprain of interphalangeal joint of left little finger, initial encounter] Onset: Episodic Substance-related disorders (18 sources) History of clinical finding in subject; [...] on above: 4 WK OB - COMING [facility] Unclassified (1 source) DATES & ANATOMY [...] Documented Date Episodic/Chronic Deficiency and other anemia (2 sources) Anemia, unspecified; Translations: [Anemia, unspecified] Onset: 04-06-2025 Episodic Diabetes or abnormal glucose tolerance complicating ; childbirth; or the puerperium (20 sources) Abnormal glucose level; Translations: [Abnormal glucose complicating ] Onset: 11-24-2024 10-25-2023 Episodic Comment on above: 3 hour gct test 4x daily and br ing log to next appt 2nd Hemorrhoids (20 sources) External hemorrhoids; Translations: [External hemorrhoids without mention of complication] Onset: 01-30-2023 01-30-2023 Episodic Other complications of (20 sources) Supervision of with other poor reproductive or obstetric history, unspecified trimester; Translations: [ with other poor obstetric history] Onset: 04-06-2025 05-27-2023 Episodic Other complications of (20 sources) Other specified related conditions, unspecified trimester; Translations: [Other specified complications of , antepartum condition or complication] Onset: 04-06-2025 05-27-2023 Episodic Other complications of (20 sources) Supervision of high risk , unspecified, unspecified trimester; Translations: [Supervision of unspecified high-risk ] Onset: 04-09-2025 05-27-2023 Episodic Other complications of (1 source) Missed ; Translations: [Missed ] Onset: 04-15-2025 Episodic Other connective tissue disease (20 sources) Temporomandibular joint crepitus; Translations: [Temporomandibular joint sounds on opening and/or closing the jaw] Onset: 01-30-2023 01-30-2023 Episodic Other connective tissue disease (2 sources) Pain in left foot; Translations: [Pain in left foot] Onset: 11-24-2024 Episodic Other female genital disorders (2 sources) Pain in female pelvis; Translations: [Pelvic pain in female] Onset: 08-06-2024 08-06-2024 Episodic Other infections; including parasitic (20 sources) Personal history of other infectious and parasitic diseases; Translations: [Personal history of other infectious and parasitic diseases] Onset: 04-06-2025 05-27-2023 Episodic Other non-traumatic joint disorders (3 sources) Pain in right shoulder; Translations: [Pain in joint, shoulder region] Onset: 01-05-2025 01-05-2025 Episodic Other non-traumatic joint disorders (2 sources) Pain in left ankle and joints of left foot; Translations: [Pain in left ankle and joints of left foot] Onset: 11-24-2024 Episodic Other screening for suspected conditions (not mental disorders or infectious disease) (20 sources) Cancer cervix - screening done; Translations: [Cancer cervix screening status] Onset: 01-30-2023 01-30-2023 Episodic Other upper respiratory disease (10 sources) Nasal congestion; Translations: [Nasal congestion] Onset: 10-18-2023 10-18-2023 Episodic Other upper respiratory infections (10 sources) Acute maxillary sinusitis; Translations: [Acute maxillary sinusitis, unspecified] Onset: 10-18-2023 10-18-2023 Episodic Pleurisy; pneumothorax; pulmonary collapse (12 sources) Pleurisy; Translations: [Pleurisy] Onset: 01-30-2023 01-30-2023 Episodic Residual codes; unclassified (1 source) 37 weeks gestation of ; Translations: [37 weeks gestation of ] Onset: 04-06-2025 Episodic Residual codes; unclassified (1 source) Unspecified blood type, Rh negative; Translations: [Unspecified blood type, Rh negative] Onset: 04-06-2025 Episodic Residual codes; unclassified (1 source) Personal history of other complications of , childbirth and the puerperium; Translations: [Personal history of other complications of , childbirth and the puerperium] Onset: 04-06-2025 Episodic Skin and subcutaneous tissue infections (15 sources) Abscess; Translations: [Cutaneous abscess, unspecified] Onset: 03-14-2023 03-14-2023 Episodic Spondylosis; intervertebral disc disorders; other back problems (8 sources) Dorsalgia, unspecified; Translations: [Acute thoracic back pain] Onset: 12-25-2024 Episodic Thyroid disorders (20 sources) Pain in thyroid; Translations: [Other specified disorders of thyroid] Onset: 01-30-2023 01-30-2023 Episodic Unclassified (4 sources) Patient encounter status; Translations: [Immunity status testing] Unclassified (20 sources) Finding of menstrual bleeding; Translations: [Menstruation] Comment on above: age 11; Unclassified (12 sources) Onset: 01-30-2023 Resolved: 07-29-2025 01-30-2023 Unclassified (1 source) Acute cough; Translations: [Acute cough] Onset: 01-31-2023 NEGATED: Highlighted row has not occurred!Residual codes; unclassified (8 sources) Disease Episodic Results Test Name Value Interpretation Reference Range Facility hCG Titer Quant., Serumon HCG QUANT. 4088 mIU/mL High <9 non-preg [facility] Comment on above: Result Comment: Gest ational Age 0.2-1 Week: 5-50 mIU/mL 1-2 Weeks: 50-500 mIU/mL 2-3 Weeks: 100-5000 mIU/mL 3-4 Weeks: 500-10,000 mIU/mL 4-5 Weeks:1000-50,000 mIU/mL 5-6 Weeks: 10,000-100,000 mIU/mL 6-8 Weeks: 15,000-200,000 mIU/mL 2-3 Months:10,000-100,000 mIU/mL Performed By: #### L 700.8000 #### [facility] [address] [place], [address] Emergency Department Summary on 08-15-2025 Emergency Department Summary [facility] Medical Records Department [address] [place] [address] Emergency Department Summary 08/15/25 MR#: [id number] Acct: [id number] Name: JOHNY TORRES Rep #: [id number] : 2000 25 From: Sadaf Yusuf MD PCP: CURTIS Mena Status:DEP ER Location: ED HPI History of Present Illness Chief Complaint: Rash Narrative Narrative: Patient is a 25-year-old female presenting to the emergency department for a rash. Patient is A1, 4 weeks and 3 days . Patient has not had a formal ultrasound done given gestational age. She has no abdominal pain, vaginal spotting or leakage of fluids. She states that 3 days ago she was helping a friend move and was using trash bags that were noted to be "rodent repellent". States that the next morning she woke up and had red itchy bumps on her arms, abdomen and legs. She denies any fevers or chills. Denies any nausea or vomiting, denies diarrhea. States she feels otherwise well. She denies any chest pain, shortness of breath. Has been taking benadryl for symptomatic control at home. Last took this morning at 8:30 AM. She reports she called her OBGYNs office this AM to tell them about the rash and the nurse told her to come to the ED to be evaluated. 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 Autoimmune thyroiditis Vaginal delivery Oligohydramnios Gestational diabetes mellitus (GDM) affecting , antepartum Abnormal glucose affecting Shoulder dystocia during labor and delivery Rh negative status during H/O herpes genitalis Home Medications ???Medication ???Instructions ???Recorded ???Last Taken ???Type levothyroxine 50 mcg tablet 50 mcg PO QDAY #90 tabs 03/11/25 0 04/06/25 Rx albuterol sulfate 90 mcg/actuation 2 puff inhalation Q6H PRN Unknown History aerosol inhaler (Ventolin HFA) shortness of breath or wheezing cholecalciferol (vitamin D3) 50 50 mcg PO QDAY 03/26/25 Unknown Hi story mcg (2,000 unit) capsule buspirone 5 mg tablet 5 mg PO BID PRN 06/22/25 Unknown H istory omeprazole 40 mg capsule,delayed 40 mg PO QDAY 06/22/25 Unknown His tory release Allergy/AdvReac Type Severity Reaction Status Date / Time Latex, Natural Rubber Allergy Mild Itching Verified 08/15/25 10:48 hydrocodone (From Vicodin) Allergy other Verified 08/15/25 10:48 hydromorphone (From Dilaudid) AdvReac Intermediate passed out Verified 08/15/25 10:48 Family History Grandmother Ovarian cancer, Onset Age: 70 Paternal great grandmother Colon cancer, Onset Age: 60 Paternal Surgical History History of throat surgery History of tonsillectomy [place] teeth extracted Social History adopted: No household members: spouse and children housing: house number of children: 2 current occupational status: unemployed current occupation: [employer] pets and animals: Yes pets and animals: [...] 1-2 times per week duration: 30-45 minutes/day stacey/sikhism: Oriental Orthodox seatbelt use: always do you feel safe at home: Yes additional social history: Shawn Torres ROS ROS ED ROS Narrative see HPI EXAM Physical Exam Narrative Exam Narrative: Vital signs: Reviewed General: Alert and orientedx3. No acute distress HEENT: Head is normocephalic and atraumatic, sinuses nontender, pupils equal round and reactive. Nares are patent. Oropharynx and throat exams normal. No tongue, lip or posterior pharynx swelling or erythema. No mucosal lesions. Neck: Supple without lymphadenopathy nontender Cardiovascular: Regular rate and rhythm, no murmurs. No rubs or gallops. Normal S1 and S2 Respiratory: Clear to auscultation bilaterally. No wheezes, rales, rhonchi Abdominal: Soft and nontender to palpation. Normal bowel sounds. No guarding or rebound. Nonsurgical abdomen Extremities: No tenderness. No bruising. Normal range o (more content not included)... Normal [facility] Copper [Mass/Vol]on 07-31-20 [facility] Copper, Bloodon 07-31-2025 Copper [Mass/Vol] 123.2 ug/dL 80.0 - 155 .0 ug/dL [facility] Comment on above: INTERPRETIVE INFORMA TION: Copper, Serum or Plasma Elevated results may be due to skin or collection-related contamination, including the use of a noncertified metal-free collection/transport tube. If contamination concerns exist due to elevated levels of serum/plasma copper, confirmation with a second specimen collected in a certified metal-free tube is recommended. Serum copper may be elevated with infection, inflammation, stress, and copper supplementation. In females, elevated copper may also be caused by oral contraceptives and (concentrations may be elevated up to 3 times normal during the third trimester). This test was developed and its performance characteristics determined by [facility]. It has not been cleared or approved by the [place] Food and Drug Administration. This test was performed in a CLIA certified laboratory and is intended for clinical purposes. Performed By: [facility] [address] [place] [address] English Instructor: Colton Carlton MD, PhD CLIA Number: [id number] Cobalamin (Vitamin B12) [Mas s/Vol]on 07-29-2025 Interpretation and review of laboratory results Normal [facility] Cobalaminson 07-29-2025 Cobalamin (Vitamin B12) [Mass/Vol] 653 pg/mL Normal 211-911 [facility] Comment on above: Performed By: #### 2 132-9 #### POONAM Pires ([id number]) [facility] ([facility]) [address] [place] [address] Copperon 07-29-2025 Copper [Mass/Vol] 123.2 ug/dL Normal 80.0-155.0 [facility] Comment on above: Result Comment: INTE RPRETIVE INFORMATION: Copper, Serum or Plasma Elevated results may be due to skin or collection-related contamination, including the use of a noncertified metal-free collection/transport tube. If contamination concerns exist due to elevated levels of serum/plasma copper, confirmation with a second specimen collected in a certified metal-free tube is recommended. Serum copper may be elevated with infection, inflammation, stress, and copper supplementation. In females, elevated copper may also be caused by oral contraceptives and (concentrations may be elevated up to 3 times normal during the third trimester). This test was developed and its performance characteristics determined by [facility]. It has not been cleared or approved by the [place] Food and Drug Administration. This test was performed in a CLIA certified laboratory and is intended for clinical purposes. Performed By: [facility] [address] [place] [address] English Instructor: Colton Carlton MD, PhD CLIA Number: [id number] Performed By: #### 5 631-7 #### [facility] ([facility]) ([id number]) [address] [place] [address] Folateon 07-29-2025 Folate [Mass/Vol] ng/mL 5.0 - PINF ng/mL [facility] Folate [Mass/Vol] ng/mL Normal >5.0 [facility] Comment on above: Order Comment: Low < 3.4 Borderline 3.4-5.0 Normal >5.0 Patients receiving more than 5 mg/day of biotin may have interference in test results. A sample should be taken no sooner than eight hours after previous dose. Contact the testing laboratory for additional information. Performed By: #### 2 284-8 #### POONAM Pires ([id number]) [facility] ([facility]) [address] [place], [place] [id number] Folate [Mass/Vol]on 07-29-20 Interpretation and review of laboratory results Normal [facility] Low <3.4 Borderline 3.4-5.0 Normal >5.0 Patients receiving more than 5 mg/day of biotin may have interference in test results. A sample should be taken no sooner than eight hours after previous dose. Contact the testing laboratory for additional information. [facility] Methylmalonateon 07-29-2025 Methylmalonate [Moles/Vol] 0.12 umol/L Normal 0.00-0.40 [facility] Comment on above: Result Comment: INTE RPRETIVE INFORMATION: MMA Serum/Plasma, Vitamin B12 Status This test was developed and its performance characteristics determined by [facility]. It has not been cleared or approved by the [place] Food and Drug Administration. This test was performed in a CLIA certified laboratory and is intended for clinical purposes. Performed By: [facility] [address] [place] [address] English Instructor: Colton Carlton MD, PhD CLIA Number: [id number] Performed By: #### 1 3964-2 #### [facility] ([id number]) [address] [place] [address] Vitamin B12on 07-29-2025 Cobalamin (Vitamin B12) [Mass/Vol] 653 pg/mL 211 - 911 pg/mL [facility] Pelvic w/ Transvaginalon Pelvic w/ Transvaginal [facility] [address] [place] [address] [id number] Pelvic w/ Transvaginal MR#: [id number] Acct: [id number] Name: JOHNY TORRES Rep #: [id number] : 2000 F 25 From: Guille jones MD PCP: CURTIS Mena Status: REG CLI Study: Pelvic w/ Transvaginal Date of Exam: 06/24/25 Exam# [id number] Ordering Dr: Esme Baker PROCEDURE: PELVIC W/ TRANSVAGINAL 06/24/2025 REASON FOR EXAM: OVARIAN CYST TECHNIQUE: Procedure Code: [id number] Modality: US Procedure: PELVIC W/ TRANSVAGINAL COMPARISON: Prior study dated February 08, 2025. FINDINGS: Measurements: Uterus: 10.7 cm x 8.1 cm x 5.7 cm with a volume of 258.4 mL Endometrial Thickness: 10 mm Right Ovary: 2.7 cm x 2.1 cm x 1.4 cm with a volume of 3.9 mL. Left Ovary: 3.9 cm x 2.7 cm x 2.2 cm with a volume of 12.2 mL. Uterus: Unremarkable Endometrium: Heterogeneous appearance of the endometrium with small cystic spaces. Right ovary: Normal size and echotexture. Left ovary: Normal size and echotexture. Other: No large pelvic mass identified. US/Pelvic w/ Transvaginal IMPRESSION: Heterogeneous appearance of the endometrium with small cystic spaces. Reading Location: [facility] CC: Dr. Esme Baker MD; CURTIS Mena Acid Crane Operator: Signed Normal [facility] CULTURE, URINE, ROUTINEon CULTURE, URINE, ROUTINE SEE NOTE Normal [facility] Comment on above: Result Comment: CULTURE, URINE, ROUTINE Micro Number: [id number] Test Status: Final Specimen Source: Urine Specimen Quality: Adequate Result: Less than 10,000 CFU/mL of single Gram positive organism isolated. No further testing will be performed. If clinically indicated, recollection using a method to minimize contamination, with prompt transfer to Urine Culture Transport Tube, is recommended. Performed By: #### 7 573, 622, 87445, 866, 927, 1426, 88530, 894 #### [facility] [address], [address] [place] [id number] Photoresist Printer: Michele Lewis MD [facility] Office Visit Reporton 06-22-2025 [facility] Office Visit Report [facility] [address], [address] [place] [address] OFFICE VISIT Date of Service: 06/22/25 MR#: [id number] Acct: [id number] Name: JOHNY TORRES Rep #: [id number] : 2000 Provider: Dr. Esme orellana MD Age/Sex: 25/F [facility] Status: Signed Intake Vital Signs 05/13/25 14:50 06/22/25 15:06 06/22/25 15:06 Height 5 ft 3 in 5 ft 3 in 5 ft 3 in Weight: 138 lb 7 oz BMI 24.5 BP 128/74 H Intake Visit Reasons: Post Op Bleeding FU Pipe Puller Required: No Is patient in pain?: Yes (some pelvic pain, uterus feels "tender") Allergies Latex, Natural Rubber Allergy (Mild, Verified 05/13/25 14:49) Itching hydrocodone (From Vicodin) Allergy (Verified 05/13/25 14:49) other hydromorphone (From Dilaudid) Adverse Reaction (Intermediate, Verified 05/13/25 14:49) passed out Medications ???Medication ???Instructions ???Recorded ???Confirmed ???Type levothyroxine 50 mcg tablet 50 mcg PO QDAY #90 tabs 03/11/25 0 06/22/25 Rx albuterol sulfate 90 mcg/actuation 2 puff inhalation Q6H PRN 06/22/25 History aerosol inhaler (Ventolin HFA) shortness of breath or wheezing cholecalciferol (vitamin D3) 50 50 mcg PO QDAY 03/26/25 06/22/25 H istory mcg (2,000 unit) capsule buspirone 5 mg tablet 5 mg PO BID PRN 06/22/25 06/22/25 History omeprazole 40 mg capsule,delayed 40 mg PO QDAY 06/22/25 06/22/25 Hi story release Post menopausal: No Patient : No : No PFSH Medical History Abnormal uterine bleeding Hypothyroid Low iron Anemia Thyroid disease Vasovagal syncope History of echocardiogram Former smoker 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 Autoimmune thyroiditis Vaginal delivery Oligohydramnios Gestational diabetes mellitus (GDM) affecting , antepartum Abnormal glucose affecting Shoulder dystocia during labor and delivery Rh negative status during H/O herpes genitalis Surgical History History of throat surgery History of tonsillectomy [place] teeth extracted Family History Grandmother Ovarian cancer, Onset Age: 70 Paternal great grandmother Colon cancer, Onset Age: 60 Paternal Social History adopted: No household members: spouse and children housing: house number of children: 2 current occupational status: unemployed current occupation: [employer] pets and animals: Yes pets and animals: [...] 1-2 times per week duration: 30-45 minutes/day stacey/sikhism: Oriental Orthodox seatbelt use: always do you feel safe at home: Yes additional social history: Shawn WIGGINS Post Op Bleeding FU Details: The patient is a 25-year-old female presenting with amenorrhea and pelvic tenderness. She has not had a menstrual period since the end of April, with a brief cessation of bleeding around May 22, followed by light pink discharge and spotting. Brown discharge persisted for a week, and she remains concerned about the absence of menstruation. Pelvic tenderness is present without cramping or pain, with bloating and tenderness noted in the pelvic area, but no lateralized pain. She has a history of ovarian cysts, which have previously caused unilateral pain, but she has not experienced this recently. Azku-uxo-hcbemrv tests have been negative, and her HCG levels were decreasing as of May 15. Thyroid function tests were normal in April, and she is on an iron supplement due to low iron levels, which may improve fertility. The patient reports increased anxiety, managed with Buspar, taken as needed, though she is considering a more regular dosing schedule for better control. - Labs: HCG levels were decreasing as of May 15. Thyroid function tests were normal in April. - Imaging: Ultrasound scheduled to check ovarian cyst status. Attestation: Documentation on this patient encounter was supported using ambient scribe technology/ voice AI technology. The patient consented to recording for the purpose of documenting the e (more content not included)... Normal [facility] POCT UA (nonautomated w/o mi croscopy) manually resultedon 06-21-2025 Appearance (U) Clear Clear [facility] Work Phone: [phone] Glucose Test strip (U) [Mass/Vol] Negative NEGATIVE mg/dl [facility] Work Phone: Hemoglobin Ql (U) TRACE-Intact [facility]normal NEGATIVE [facility]: [phone] Interpretation and review of laboratory results Abnormal [facility] Work Phone: Leukocyte esterase Test strip Ql (U) Negative NEGATIVE [facility] Work Phone: Nitrite Ql (U) Negative NEGATIVE [facility] Work Phone: pH (U) 6.0 [pH] No Reference Range Established [facility] Work Phone: POC Bilirubin, Urine Negative NEGATIVE [facility] Work Phone: )[phone] POC Color, Urine Yellow Straw, Yellow, Light-Yellow [facility] Work Phone: [phone] POC Ketones, Urine Negative NEGATIVE mg/dl [facility] Work Phone: )[phone] POC Protein, Urine Negative NEGATIVE mg/dl [facility] Work Phone: [phone] POC Specific [place], Urine 1.025 1.005 - 1.035 [facility] Work Phone: [phone] POC Urobilinogen, Urine 0.2 0.2, 1.0 EU/DL [facility] Work Phone: [phone] [facility] Work Phone: [phone] CBC (INCLUDES DIFF/PLT)on Basophils (Bld) [#/Vol] 0.059 10*3/uL Normal 0-200 [facility] Comment on above: Performed By: #### 7 573, 622, 35513, 866, 927, 6399, 38271, 899 #### [facility] [address], [address] [place] [address] Photoresist Printer: Michele Lewis MD Basophils/100 WBC (Bld) 1.3 % Normal [facility] Comment on above: Performed By: #### 7 573, 622, 26185, 866, 927, 6399, 65443, 899 #### [facility] [place] [address] Photoresist Printer: Michele Lewis MD Eosinophils (Bld) [#/Vol] 0.122 10*3/uL Normal 15-500 [facility] Comment on above: Performed By: #### 7 573, 622, 33131, 866, 927, 6399, 30149, 899 #### [facility] [place] [address] Photoresist Printer: Michele Lewis MD Eosinophils/100 WBC (Bld) 2.7 % Normal [facility] Comment on above: Performed By: #### 7 573, 622, 67864, 866, 927, 6399, 18755, 899 #### [facility] [place] [address] Photoresist Printer: Michele Lewis MD Erythrocyte distribution width (RBC) [Ratio] 13.3 % Normal 11.0-15.0 [facility] Comment on above: Performed By: #### 7 573, 622, 99921, 866, 927, 6399, 52865, 899 #### [facility] [place] [address] Photoresist Printer: Michele Lewis MD Hematocrit (Bld) [Volume fraction] 32.6 % Low 35.0-45.0 [facility] Comment on above: Performed By: #### 7 573, 622, 92572, 866, 927, 6399, 99599, 899 #### [facility] [place] [address] Photoresist Printer: Michele Lewis MD Hemoglobin (Bld) [Mass/Vol] 10.7 g/dL Low 11.7-15.5 [facility] Comment on above: Performed By: #### 7 573, 622, 38688, 866, 927, 6399, 86046, 899 #### [facility] [place] [address] Photoresist Printer: Michele Lewis MD Lymphocytes (Bld) [#/Vol] 1.296 10*3/uL Normal 850-3900 [facility] Comment on above: Performed By: #### 7 573, 622, 17609, 866, 927, 6399, 81186, 899 #### [facility] [place] [address] Photoresist Printer: Michele Lewis MD Lymphocytes/100 WBC (Bld) 28.8 % Normal [facility] Comment on above: Performed By: #### 7 573, 622, 55221, 866, 927, 6399, 60582, 899 #### [facility] [place] [address] Photoresist Printer: Michele Lewis MD MCH (RBC) [Entitic mass] 28.0 pg Normal 27.0-33.0 [facility] Comment on above: Performed By: #### 7 573, 622, 26268, 866, 927, 6399, 88031, 899 #### [facility] [place] [address] Photoresist Printer: Michele Lewis MD MCHC (RBC) [Mass/Vol] 32.8 g/dL Normal 32.0-36.0 [facility] Comment on above: Result Comment: For adults, a slight decrease in the calculated MCHC value (in the range of 30 to 32 g/dL) is most likely not clinically significant; however, it should be interpreted with caution in correlation with other red cell parameters and the patient's clinical condition. Performed By: #### 7 573, 622, 15289, 866, 927, 6399, 88926, 899 #### [facility] [place] [address] Photoresist Printer: Michele Lewis MD MCV (RBC) [Entitic vol] 85.3 fL Normal 80.0-100.0 [facility] Comment on above: Performed By: #### 7 573, 622, 41464, 866, 927, 6399, 33421, 899 #### [facility] [place] [address] Photoresist Printer: Michele eLwis MD Monocytes (Bld) [#/Vol] 0.414 10*3/uL Normal 200-950 [facility] Comment on above: Performed By: #### 7 573, 622, 43892, 866, 927, 6399, 53338, 899 #### [facility] [place] [address] Photoresist Printer: Michele Lewis MD Monocytes/100 WBC (Bld) 9.2 % Normal [facility] Comment on above: Performed By: #### 7 573, 622, 73697, 866, 927, 6399, 20762, 899 #### [facility] [place] [address] Photoresist Printer: Michele Lewis MD Neutrophils (Bld) [#/Vol] 2.61 10*3/uL Normal 7458-7026 [facility] Comment on above: Performed By: #### 7 573, 622, 12692, 866, 927, 6399, 28650, 899 #### [facility] [place] [address] Photoresist Printer: Michele Lewis MD Neutrophils/100 WBC (Bld) 58 % Normal [facility] Comment on above: Performed By: #### 7 573, 622, 49326, 866, 927, 6399, 38493, 899 #### [facility] [place] [address] Photoresist Printer: Michele Lewis MD Platelet mean volume (Bld) [Entitic vol] 9.5 fL Normal 7.5-12.5 [facility] Comment on above: Performed By: #### 7 573, 622, 57150, 866, 927, 6399, 40637, 899 #### [facility] of [address], [address] [place] [address] Photoresist Printer: Michele Lewis MD Platelets (Bld) [#/Vol] 293 10*3/uL Normal 140-400 [facility] Comment on above: Performed By: #### 7 573, 622, 37233, 866, 927, 6399, 63231, 899 #### [facility] [place] [address] Photoresist Printer: Michele Lewis MD RBC (Bld) [#/Vol] 3.82 10*6/uL Normal 3.80-5.10 [facility] Comment on above: Performed By: #### 7 573, 622, 56676, 866, 927, 6399, 23731, 899 #### [facility] [place] [address] Photoresist Printer: Michele Lewis MD WBC (Bld) [#/Vol] 4.5 10*3/uL Normal 3.8-10.8 [facility] Comment on above: Performed By: #### 7 573, 622, 32996, 866, 927, 6399, 45300, 899 #### [facility] of [address], [address] [place] [address] Photoresist Printer: Michele Lewis MD FERRITINon 06-03-2025 Ferritin [Mass/Vol] 8 ng/mL Low 16-154 [facility] Comment on above: Performed By: #### 7 573, 622, 18594, 866, 927, 6399, 57602, 899 #### [facility] [place] [address] Photoresist Printer: Michele Lewis MD IRON AND TOTAL IRON BINDING CAPACITYon 06-03-2025 % SATURATION 9 % (calc) Low 16-45 [facility] Comment on above: Order Comment: FASTI NG:NO FASTING: NO Performed By: #### 1 7306, 7573, 6399 #### [facility] [address], [address] [place] [address] Photoresist Printer: Michele Lewis MD IRON BINDING CAPACITY 448 mcg/dL (calc) Normal 250-450 [facility] Comment on above: Order Comment: FASTI NG:NO FASTING: NO Performed By: #### 1 7306, 7573, 6399 #### [facility] [address], [address] [place] [address] Photoresist Printer: Michele Lewis MD IRON, TOTAL 41 mcg/dL Normal 40-190 [facility] Comment on above: Order Comment: FASTI NG:NO FASTING: NO Performed By: #### 1 7306, 7573, 6399 #### [facility] [address], [address] [place] [address] Photoresist Printer: Michele Lewis MD VITAMIN D,25-OH,TOTAL,IAon 0 06-03-2025 VITAMIN D,25-OH,TOTAL,IA 39 ng/mL Normal 30-100 [facility] Comment on above: Result Comment: Ariane min D Status 25-OH Vitamin D: Deficiency: <20 ng/mL Insufficiency: 20 - 29 ng/mL Optimal: > or = 30 ng/mL For 25-OH Vitamin D testing on patients on D2-supplementation and patients for whom quantitation of D2 and D3 fractions is required, the QuestAssureD(TM) 25-OH VIT D, (D2,D3), LC/MS/MS is recommended: order code 19622 (patients >2yrs). See Note 1 Note 1 For additional information, please refer to [email or web address]/DAG947 (This link is being provided for informational/ educational purposes only.) Performed By: #### 7 573, 622, 41940, 866, 927, 9699, 13472, 899 #### [facility] [address], [address] [place] [address] Photoresist Printer: Michele Lewis MD Serum human chorionic gonado tropin detection for pregnancyOrdered By: Brandi Pacheco on 05-15-2025 HCG ( test) Ql 13 mIU/mL High <9 [facility] Comment on above: Gestational Age0.2-1 Week: 5-50 mIU/mL1-2 Weeks: 50-500 mIU/mL2-3 Weeks: 100-5000 mIU/mL3-4 Weeks: 500-10,000 mIU/mL4-5 Weeks:1000-50,000 mIU/mL5-6 Weeks: 10,000-100,000 mIU/mL6-8 Weeks: 15,000-200,000 mIU/mL2-3 Months:10,000-100,000 mIU/mL hCG Titer Quant., Serumon HCG QUANT. 13 mIU/mL High <9 non-preg [facility] Comment on above: Result Comment: Gest ational Age 0.2-1 Week: 5-50 mIU/mL 1-2 Weeks: 50-500 mIU/mL 2-3 Weeks: 100-5000 mIU/mL 3-4 Weeks: 500-10,000 mIU/mL 4-5 Weeks:1000-50,000 mIU/mL 5-6 Weeks: 10,000-100,000 mIU/mL 6-8 Weeks: 15,000-200,000 mIU/mL 2-3 Months:10,000-100,000 mIU/mL Performed By: #### L 700.8000 #### [facility] [address] [place], [address] Absolute lymphocyte countOrd ered By: Esme Baker on 05-13-2025 Lymphocytes Auto (Unsp spec) [#/Vol] 1.61 10*3/uL 0.83-4.51 [facility] Absolute neutrophil countOrd ered By: Esme Baker on 05-13-2025 Neutrophils (Bld) [#/Vol] 2.7 10*3/uL 2.0-7.7 [facility] Automated lymphocyte count a s percentage of total leukocytesOrdered By: Esme Baker on 05-13-2025 Lymphocytes/100 WBC Auto (Unsp spec) 31.6 % 19-41 [facility] Basophil percentageOrdered B y: Esme Baker on 05-13-2025 Basophils/100 WBC (Bld) 1.0 % 0-1 [facility] CBC W/Diff, Priscillaon 04-15-2024 Absolute Lymph 1.61 X10 3/uL Normal 0.83-4.51 [facility] Comment on above: Performed By: #### L 506.1001 #### [facility] [address] [place], [address] Absolute Neut 2.7 X10 3/uL Normal 2.0-7.7 [facility] Comment on above: Performed By: #### L 506.1001 #### [facility] [address] [place], [address] Basophils/100 WBC (Bld) 1.0 % Normal 0-1 [facility] Comment on above: Performed By: #### L 506.1001 #### [facility] [address] [place], [address] Eosinophils/100 WBC (Bld) 5.7 % High 0-5 [facility] Comment on above: Performed By: #### L 506.1001 #### [facility] [address] [place], [address] Erythrocyte distribution width (RBC) [Ratio] 13.0 % Normal 11.6-14.6 [facility] Comment on above: Performed By: #### L 506.1001 #### [facility] [address] [place], [address] Hematocrit (Bld) [Volume fraction] 35.0 % Low 37-47 [facility] Comment on above: Performed By: #### L 506.1001 #### [facility] [address] [place], [address] Hemoglobin (Bld) [Mass/Vol] 11.4 g/dL Low 12.0-15.0 [facility] Comment on above: Performed By: #### L 506.1001 #### [facility] [address] [place], [address] IG% 0.400 Normal 0.0-0.9 [facility] Comment on above: Result Comment: IG% - Immature Granulocytes (promyelocytes, myelocytes and metamyelocytes) > 1% indicates that a LEFT SHIFT is Present. Performed By: #### L 506.1001 #### [facility] [address] [place], [address] Lymphocytes/100 WBC (Bld) 31.6 % Normal 19-41 [facility] Comment on above: Performed By: #### L 506.1001 #### [facility] [address] [place], [address] MCH (RBC) [Entitic mass] 27.6 pg Normal 27.0-32.0 [facility] Comment on above: Performed By: #### L 506.1001 #### [facility] [address] [place], [address] MCHC (RBC) [Mass/Vol] 32.6 g/dL Normal 32-36 [facility] Comment on above: Performed By: #### L 506.1001 #### [facility] [address] [place], [address] MCV (RBC) [Entitic vol] 84.7 fL Normal 81-99 [facility] Comment on above: Performed By: #### L 506.1001 #### [facility] [address] [place], [address] Monocytes/100 WBC (Bld) 8.6 % Normal 0-10 [facility] Comment on above: Performed By: #### L 506.1001 #### [facility] [address] [place], [address] Neutrophils/100 WBC (Bld) 52.7 % Normal 47-70 [facility] Comment on above: Performed By: #### L 506.1001 #### [facility] [address] [place], [address] Nucleated RBC (Bld) [#/Vol] 0 10*3/uL Normal 0-5 [facility] Comment on above: Performed By: #### L 506.1001 #### [facility] [address] [place], [address] Platelet mean volume (Bld) [Entitic vol] 8.8 fL Normal 6.2-12.0 [facility] Comment on above: Performed By: #### L 506.1001 #### [facility] [address] [place], [address] Platelets (Bld) [#/Vol] 267 10*3/uL Normal 150-450 [facility] Comment on above: Performed By: #### L 506.1001 #### [facility] [address] [place], [address] RBC (Bld) [#/Vol] 4.13 10*6/uL Low 4.2-5.4 [facility] Comment on above: Performed By: #### L 506.1001 #### [facility] [address] [place], [address] RDW SD 40.1 fl Normal 35.1-43.9 [facility] Comment on above: Performed By: #### L 506.1001 #### [facility] [address] [place], [address] WBC (Bld) [#/Vol] 5.1 10*3/uL Normal 4.4-11.0 [facility] Comment on above: Performed By: #### L 506.1001 #### [facility] [address] [place], [address] Eosinophil percentageOrdered By: Esme Baker on 05-13-2025 Eosinophils/100 WBC (Bld) 5.7 % High 0-5 [facility] Erythrocyte distribution wid th ratioOrdered By: Esme Baker on 05-13-2025 Erythrocyte distribution width (RBC) [Ratio] 13.0 % 11.6-14.6 [facility] Erythrocyte distribution wid th standard deviationOrdered By: Esme Baker on 05-13-2025 Erythrocyte distribution width (RBC) [Ratio] 40.1 fl 35.1-43.9 [facility] Hematocrit Auto (Bld) [Volum e fraction]Ordered By: Esme Baker on 05-13-2025 Hematocrit (Bld) [Volume fraction] 35.0 % Low 37-47 [facility] Hemoglobin measurementOrdere d By: Esme Baker on 05-13-2025 Hemoglobin (Bld) [Mass/Vol] 11.4 g/dL Low 12.0-15.0 [facility] Immature granulocytes/100 WB C Auto (Bld)Ordered By: Esme Baker on 05-13-2025 Immature granulocytes/100 WBC (Bld) 0.400 % 0.0-0.9 [facility] Comment on above: IG% - Immature Granu locytes (promyelocytes, myelocytes and metamyelocytes) > 1% indicates that a LEFT SHIFT is Present. MCV (mean corpuscular volume ) determinationOrdered By: Esme Baker on 05-13-2025 MCV (RBC) [Entitic vol] 84.7 fL 81-99 [facility] Mean corpuscular hemoglobin (MCH) determinationOrdered By: Esme Baker on 05-13-2025 MCH (RBC) [Entitic mass] 27.6 pg 27.0-32.0 [facility] Mean corpuscular hemoglobin concentration (MCHC) determinationOrdered By: Esme Baker on 05-13-2025 MCHC (RBC) [Mass/Vol] 32.6 g/dL 32-36 [facility] Mean platelet volume determi nationOrdered By: Esme Baker on 05-13-2025 Platelet mean volume (Bld) [Entitic vol] 8.8 fL 6.2-12.0 [facility] Monocyte percentageOrdered B y: Esme Baker on 05-13-2025 Monocytes/100 WBC (Bld) 8.6 % 0-10 [facility] Neutrophil percentageOrdered By: Esme Baker on 05-13-2025 Neutrophils/100 WBC (Bld) 52.7 % 47-70 [facility] Nucleated red blood cell per centageOrdered By: Esme Carmenmercy on 05-13-2025 Nucleated RBC/100 WBC (Bld) [Ratio] 0 % 0-5 [facility] Jewels[facility] Office Visit Reporton 05-13-2025 Jewelsmith Office Visit Report [facility]'[address], [address] [place] [address] OFFICE VISIT Date of Service: 05/13/25 MR#: [id number] Acct: [id number] Name: BRIANJOHNYCheikh RAMOS Rep #: [id number] : 2000 Provider: Dr. Esme orellana MD Age/Sex: 25/F [place] [facility] Status: Signed Intake Vital Signs 04/30/25 10:00 05/13/25 14:49 05/13/25 14:50 Height 5 ft 3 in 5 ft 3 in 5 ft 3 in Weight: 134 lb 137 lb 2 oz BMI 23.7 24.3 BP 111/71 111/72 Intake Visit Reasons: Post op bleeding FU Pipe Puller Required: No Is patient in pain?: No Allergies Latex, Natural Rubber Allergy (Mild, Verified 05/13/25 14:49) Itching hydrocodone (From Vicodin) Allergy (Verified 05/13/25 14:49) other hydromorphone (From Dilaudid) Adverse Reaction (Intermediate, Verified 05/13/25 14:49) passed out Medications ???Medication ???Instructions ???Recorded ???Confirmed ???Type multivit-min no.71-iron fum 28 1 cap PO DAILY 05/16/23 05/13/25 H istory mg-folate no.1 1 mg-dha 300 mg capsule (PNV-[place]) levothyroxine 50 mcg tablet 50 mcg PO [...] menopausal: No Patient : No : Yes [facility] Medical History (Updated 05/13/25 @ 15:06 by [...] History of throat surgery History of tonsillectomy [place] teeth extracted Family History Grandmother Ovarian cancer, Onset Age: 70 Paternal great grandmother Colon cancer, Onset Age: 60 Paternal Social History adopted: No household members: spouse and children housing: house number of children: 2 current occupational status: unemployed current occupation: [employer] pets and animals: Yes pets and animals: [...] 1-2 times per week duration: 30-45 minutes/day stacey/sikhism: Oriental Orthodox seatbelt use: always do you feel safe [...] - full term 6lbs 14oz Female epidural [facility] Olivia Escobar 04/06/25 9 spontaneous Delivery Date: [...] urinary hesitancy (more content not included)... Normal [facility] Platelet countOrdered By: Luciano Baker on 05-13-2025 Platelets (Bld) [#/Vol] 267 10*3/uL 150-450 [facility] RBC Auto (Bld) [#/Vol]Ordere d By: Esme Baker on 05-13-2025 RBC (Bld) [#/Vol] 4.13 10*6/uL Low 4.2-5.4 [facility] Serum human chorionic gonado tropin detection for pregnancyOrdered By: Esme Baker on 05-13-2025 HCG ( test) Ql 16 mIU/mL High <9 [facility] Comment on above: Gestational Age0.2-1 Week: 5-50 mIU/mL1-2 Weeks: 50-500 mIU/mL2-3 Weeks: 100-5000 mIU/mL3-4 Weeks: 500-10,000 mIU/mL4-5 Weeks:1000-50,000 mIU/mL5-6 Weeks: 10,000-100,000 mIU/mL6-8 Weeks: 15,000-200,000 mIU/mL2-3 Months:10,000-100,000 mIU/mL T4 Free Directon 05-13-2025 T4 FREE DIRECT 1.10 ng/dL Normal 0.76-1.46 [facility] Comment on above: Performed By: #### L 506.1001 #### [facility] [address] [place], [address] T4 freeOrdered By: Esme solorio on 05-13-2025 Free T4 [Mass/Vol] 1.10 ng/dL 0.76-1.46 [facility] TSH DL <= 0.005 mIU/L QnOrde red By: Esme Baker on 05-13-2025 TSH Qn 1.060 uIU/mL 0.300-4.200 [facility] Thyroid Stim Hormone (TSH)on 05-13-2025 TSH 1.060 uIU/mL Normal 0.300-4.200 [facility] Comment on above: Performed By: #### L 506.1001 #### [facility] [address] [place], [place], [id number] White blood cell (WBC) count Ordered By: Esme Baker on 05-13-2025 WBC (Bld) [#/Vol] 5.1 10*3/uL 4.4-11.0 [facility] hCG Titer Quant., Serumon HCG QUANT. 16 mIU/mL High <9 non-preg [facility] Comment on above: Result Comment: Gest ational Age 0.2-1 Week: 5-50 mIU/mL 1-2 Weeks: 50-500 mIU/mL 2-3 Weeks: 100-5000 mIU/mL 3-4 Weeks: 500-10,000 mIU/mL 4-5 Weeks:1000-50,000 mIU/mL 5-6 Weeks: 10,000-100,000 mIU/mL 6-8 Weeks: 15,000-200,000 mIU/mL 2-3 Months:10,000-100,000 mIU/mL Performed By: #### L 506.1001 #### [facility] [address] [place], [address] Jewelsmith Office Visit Reporton 04-30-2025 Jewelsmith Office Visit Report [facility] [address], [address] [place] [address] OFFICE VISIT Date of Service: 04/30/25 MR#: [id number] Acct: [id number] Name: JOHNY TORRES Rep #: [id number] : 2000 Provider: Dr. Esme orellana MD Age/Sex: 25/F [place] [facility] Status: Signed Intake Vital Signs 04/06/25 12:51 04/30/25 10:00 Height 5 ft 3 in 5 ft 3 in Weight: 134 lb BMI 23.7 BP 111/71 Intake Visit Reasons: 2wk D C FU Pipe Puller Required: No Is patient in pain?: No Allergies Latex, Natural Rubber Allergy (Mild, Verified 04/30/25 10:03) Itching hydrocodone (From Vicodin) Allergy (Verified 04/30/25 10:03) other hydromorphone (From Dilaudid) Adverse Reaction (Intermediate, Verified 04/30/25 10:03) passed out Medications ???Medication ???Instructions ???Recorded ???Confirmed ???Type multivit-min no.71-iron fum 28 1 cap PO DAILY 05/16/23 04/30/25 H istory mg-folate no.1 1 mg-dha 300 mg capsule (PNV-[place]) levothyroxine 50 mcg tablet 50 mcg PO QDAY #90 tabs 03/11/25 0 04/30/25 Rx albuterol sulfate 90 mcg/actuation 2 puff inhalation Q6H PRN 04/30/25 History aerosol inhaler (Ventolin HFA) shortness of breath or wheezing cholecalciferol (vitamin D3) 50 50 mcg PO QDAY 03/26/25 04/30/25 H istory mcg (2,000 unit) capsule Post menopausal: No Patient : No : No PFSH Medical History Hypothyroid Low iron Anemia Thyroid disease Vasovagal syncope History of echocardiogram Former smoker 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 Abnormal uterine bleeding Autoimmune thyroiditis Vaginal delivery Oligohydramnios Gestational diabetes mellitus (GDM) affecting , antepartum Abnormal glucose affecting Shoulder dystocia during labor and delivery Rh negative status during H/O herpes genitalis Surgical History History of throat surgery History of tonsillectomy [place] teeth extracted Family History Grandmother Ovarian cancer, Onset Age: 70 Paternal great grandmother Colon cancer, Onset Age: 60 Paternal Social History adopted: No household members: spouse and children housing: house number of children: 2 current occupational status: unemployed current occupation: [employer] pets and animals: Yes pets and animals: [...] 1-2 times per week duration: 30-45 minutes/day stacey/sikhism: Oriental Orthodox seatbelt use: always do you feel safe [...] - full term 6lbs 14oz Female epidural [facility] Olivia Escobar 04/06/25 9 spontaneous Delivery Date: [...] O02.1 Assess (more content not included)... Normal [facility] Celiac Disease Profileon ENDOMYSIAL IGA Negative Normal Negative [facility] Comment on above: Performed By: #### L 700.8000 #### [facility] [address] [place], [address] IMMUNOGLOB A QN 139 mg/dL Normal 87-352 [facility] Comment on above: Result Comment: Perf ormed at: CB - [facility] [address] [id number] Wet Room Supervisor: Td Sanders PhD, Phone: [phone] Performed By: #### L 700.8000 #### [facility] [address] [place], [address] tTG IGA <2 Normal 0-3 [facility] Comment on above: Result Comment: Nega tive 0 - 3 Weak Positive 4 - 10 Positive >10 Tissue Transglutaminase (tTG) has been identified as the endomysial antigen. Studies have demonstr- ated that endomysial IgA antibodies have over 99% specificity for gluten sensitive enteropathy. Performed By: #### L 700.8000 #### [facility] [address] [place], [address] Absolute lymphocyte countOrd ered By: Brandi Tara on 04-06-2025 Lymphocytes Auto (Unsp spec) [#/Vol] 1.61 10*3/uL 0.83-4.51 [facility] Absolute neutrophil countOrd ered By: Brandi Tara on 04-06-2025 Neutrophils (Bld) [#/Vol] 5.3 10*3/uL 2.0-7.7 [facility] Automated lymphocyte count a s percentage of total leukocytesOrdered By: Brandikolton Pacheco on 04-06-2025 Lymphocytes/100 WBC Auto (Unsp spec) 21.6 % 19-41 [facility] Basophil percentageOrdered B y: Brandi Pacheco on 04-06-2025 Basophils/100 WBC (Bld) 0.7 % 0-1 [facility] CBC W/Diff, Automatedon 06-11 17-2024 Absolute Lymph 1.61 X10 3/uL Normal 0.83-4.51 [facility] Comment on above: Performed By: #### L 506.1001 #### [facility] [address] [place], [address] Absolute Neut 5.3 X10 3/uL Normal 2.0-7.7 [facility] Comment on above: Performed By: #### L 506.1001 #### [facility] [address] [place], [address] Basophils/100 WBC (Bld) 0.7 % Normal 0-1 [facility] Comment on above: Performed By: #### L 506.1001 #### [facility] [address] [place], [address] Eosinophils/100 WBC (Bld) 0.9 % Normal 0-5 [facility] Comment on above: Performed By: #### L 506.1001 #### [facility] [address] [place], [address] Erythrocyte distribution width (RBC) [Ratio] 13.0 % Normal 11.6-14.6 [facility] Comment on above: Performed By: #### L 506.1001 #### [facility] [address] [place], [address] Hematocrit (Bld) [Volume fraction] 31.7 % Low 37-47 [facility] Comment on above: Performed By: #### L 506.1001 #### [facility] [address] [place], [address] Hemoglobin (Bld) [Mass/Vol] 10.9 g/dL Low 12.0-15.0 [facility] Comment on above: Performed By: #### L 506.1001 #### [facility] [address] [place], [address] IG% 0.300 Normal 0.0-0.9 [facility] Comment on above: Result Comment: IG% - Immature Granulocytes (promyelocytes, myelocytes and metamyelocytes) > 1% indicates that a LEFT SHIFT is Present. Performed By: #### L 506.1001 #### [facility] [address] [place], [address] Lymphocytes/100 WBC (Bld) 21.6 % Normal 19-41 [facility] Comment on above: Performed By: #### L 506.1001 #### [facility] [address] [place], [address] MCH (RBC) [Entitic mass] 28.5 pg Normal 27.0-32.0 [facility] Comment on above: Performed By: #### L 506.1001 #### [facility] [address] [place], [address] MCHC (RBC) [Mass/Vol] 34.4 g/dL Normal 32-36 [facility] Comment on above: Performed By: #### L 506.1001 #### [facility] [address] [place], [address] MCV (RBC) [Entitic vol] 83.0 fL Normal 81-99 [facility] Comment on above: Performed By: #### L 506.1001 #### [facility] [address] [place], [address] Monocytes/100 WBC (Bld) 5.9 % Normal 0-10 [facility] Comment on above: Performed By: #### L 506.1001 #### [facility] [address] [place], [address] Neutrophils/100 WBC (Bld) 70.6 % High 47-70 [facility] Comment on above: Performed By: #### L 506.1001 #### [facility] [address] [place], [address] Nucleated RBC (Bld) [#/Vol] 0 10*3/uL Normal 0-5 [facility] Comment on above: Performed By: #### L 506.1001 #### [facility] [address] [place], [address] Platelet mean volume (Bld) [Entitic vol] 9.5 fL Normal 6.2-12.0 [facility] Comment on above: Performed By: #### L 506.1001 #### [facility] [address] [place], [address] Platelets (Bld) [#/Vol] 251 10*3/uL Normal 150-450 [facility] Comment on above: Performed By: #### L 506.1001 #### [facility] [address] [place], [address] RBC (Bld) [#/Vol] 3.82 10*6/uL Low 4.2-5.4 [facility] Comment on above: Performed By: #### L 506.1001 #### [facility] [address] [place], [address] RDW SD 39.2 fl Normal 35.1-43.9 [facility] Comment on above: Performed By: #### L 506.1001 #### [facility] [address] [place], [address] WBC (Bld) [#/Vol] 7.5 10*3/uL Normal 4.4-11.0 [facility] Comment on above: Performed By: #### L 506.1001 #### [facility] [address] [place], [address] Discharge Instructionon 03-15 Discharge Instruction [facility] Medical Records Department [address] [place] [address] Instructions for Home/Discharge Instructions 04/06/25 1443 MR#: [id number] Acct: [id number] Name: JOHNY TORRES Rep #: [id number] : 2000 24 From: Esme Baker MD PCP: CURTIS Mena Status[place] [facility]charge Instructions Diet Discharge Diet: No restrictions [...] Up With: Esme Baker MD When: Call [phone] to schedule appointment. Test Results: Test results from this visit will be discussed in further detail at your follow-up appointment, if applicable. Discharge Plan Admission Attending Provider: Esme Baker Primary Care Provider: Chrystal Alamo Instructions Print Language: Faroese Discharge Orders/Prescriptions Prescriptions: No Action PNV-[place] 28-1-300 mg capsule 1 cap PO DAILY [...] can be placed): Home, Self Care 04/06/25 4598 Esme Baker MD CC: CURTIS Mena Signed Normal [facility] Eosinophil percentageOrdered By: Brandi Pacheco on 04-06-2025 Eosinophils/100 WBC (Bld) 0.9 % 0-5 [facility] Erythrocyte distribution wid th ratioOrdered By: Brandi Pacheco on 04-06-2025 Erythrocyte distribution width (RBC) [Ratio] 13.0 % 11.6-14.6 [facility] Erythrocyte distribution wid th standard deviationOrdered By: Brandi Pacheco on 04-06-2025 Erythrocyte distribution width (RBC) [Ratio] 39.2 fl 35.1-43.9 [facility] Ferritinon 04-06-2025 Ferritin [Mass/Vol] 14 ng/mL Low 22-378 [facility] Comment on above: Performed By: #### L 700.8000 #### [facility] [address] [facility] [place], [address] Hematocrit Auto (Bld) [Volum e fraction]Ordered By: Brandi Pacheco on 04-06-2025 Hematocrit (Bld) [Volume fraction] 31.7 % Low 37-47 [facility] Hemoglobin A1con 04-06-2025 HbA1c (Bld) [Mass fraction] 5.2 % Normal <=5.6 [facility] Comment on above: Result Comment: Norm al < 5.7 % Prediabetic 5.7 - 6.4 % Diabetic >or= 6.5 % Please note range changes. Performed By: #### L 700.8000 #### [facility] [address] [place], [address] Hemoglobin A1c percentageOrd ered By: Brandi Pacheco on 04-06-2025 HbA1c (Bld) [Mass fraction] 5.2 % <5.7 [facility] Comment on above: Normal < 5.7 % Predi abetic 5.7 - 6.4 % Diabetic >or= 6.5 % Please note range changes. Hemoglobin measurementOrdere d By: Brandi Pacheco on 04-06-2025 Hemoglobin (Bld) [Mass/Vol] 10.9 g/dL Low 12.0-15.0 [facility] Immature granulocytes/100 WB C Auto (Bld)Ordered By: Brandi Pacheco on 04-06-2025 Immature granulocytes/100 WBC (Bld) 0.300 % 0.0-0.9 [facility] Comment on above: IG% - Immature Granu locytes (promyelocytes, myelocytes and metamyelocytes) > 1% indicates that a LEFT SHIFT is Present. Iron measurement (mass/mass) Ordered By: Brandi Pacheco on 04-06-2025 Iron (Unsp spec) [Mass/Mass] 61 ug/dL 50-170 [facility] Iron+Iron Binding Capacityon 04-06-2025 Iron [Mass/Vol] 61 ug/dL Normal 50-170 [facility] Comment on above: Performed By: #### L 506.1001 #### [facility] [address] [place], [address] IRON SATURATION 15.0 Normal 13-59 [facility] Comment on above: Performed By: #### L 506.1001 #### [facility] [address] [place], [address] TIBC 406 ug/dL Normal 250-450 [facility] Comment on above: Performed By: #### L 506.1001 #### [facility] [address] [place], [address] UIBC 345 ug/dL Normal 228-428 [facility] Comment on above: Performed By: #### L 506.1001 #### [facility] [address] [place], [address] MCV (mean corpuscular volume ) determinationOrdered By: Brandi Pacheco on 04-06-2025 MCV (RBC) [Entitic vol] 83.0 fL 81-99 [facility] MR/POSTOP.ANEon 04-06-2025 MR/POSTOP.ANE [facility] Medical Records Department [address] [place] [address] Anesthesia Postop Eval I 04/06/25 1505 MR#: [id number] Acct: [id number] Name: JOHNY TORRES Rep #: [id number] : 2000 24 From: Roe Waller CRNA PCP: CURTIS Mena Status:REG SD Y Race: C Location: [place] [address] Anesthesia: Postop Eval I Current Vital Signs [...] Anesthesia document: Postop Eval 1 completed: Yes 04/06/251504 Date Roe Waller CRNA Cosigner Signature: Date CC: Signed Normal [facility] MR/KCAMRWNS2gl 04-06-2025 MR/POSTOPAN2 [facility] Medical Records Department [address] [place] [address] Anesthesia Postop Eval II 04/06/257 MR#: [id number] Acct: [id number] Name: JOHNY TORRES Rep #: [id number] : 2000 24 From: Praveen Valenzuela MD PCP: CURTIS Mena Status:DEP [facility] [place] Race: C [place] [facility] Anesthesia Postop Eval I Sum Postop Eval Completion status Anesthesia document: Postop Eval 1 completed: Yes Anesthesia Postop Eval I Summary Anesthesia Postop Eval I Summary: Anesthesia Postop Eval I: Assessment Summary Airway patent Yes 04/06/25 15:05 SALESPERSON RECREATIONAL VEHICLES.SOBR Spontaneous unlabored Yes 04/06/25 15:05 SALESPERSON RECREATIONAL VEHICLES.SOBR respirations Mental status Awake,Calm 04/06/25 15:05 SALESPERSON RECREATIONAL VEHICLES.SOBR nausea No 04/06/25 15:05 SALESPERSON RECREATIONAL VEHICLES.SOBR Vomiting No 04/06/25 15:05 SALESPERSON RECREATIONAL VEHICLES.SOBR Anesthesia Postop Eval I: Fluid Summary Crystalloid volume administer 500 04/06/25 15:05 SALESPERSON RECREATIONAL VEHICLES.SOBR (ml) Colloids volume administered ( ml) Blood Product volume administered (ml) Total IV fluid infused 500 04/06/25 15:05 SALESPERSON RECREATIONAL VEHICLES.SOBR Anesthesia Postop Eval I: Summary Notes Anesthesia Complication No 04/06/25 15:05 SALESPERSON RECREATIONAL VEHICLES.SOBR Anesthesia Complication Comment: Post-operative progress note Anesthesia: Postop Eval II Evaluation Mental status: Awake and Calm Pain Level: 1 nausea: No Vomiting: No Complications Anesthesia Complication: No 04/06/252237 Date Praveen Valenzuela MD Cosigner Signature: Date CC: Signed Normal [facility] Mean corpuscular hemoglobin (MCH) determinationOrdered By: Brandi Pacheco on 04-06-2025 MCH (RBC) [Entitic mass] 28.5 pg 27.0-32.0 [facility] Mean corpuscular hemoglobin concentration (MCHC) determinationOrdered By: Brandi Pacheco on 04-06-2025 MCHC (RBC) [Mass/Vol] 34.4 g/dL 32-36 [facility] Mean platelet volume determi nationOrdered By: Branid Tara on 04-06-2025 Platelet mean volume (Bld) [Entitic vol] 9.5 fL 6.2-12.0 [facility] Monocyte percentageOrdered B y: Brandi Tara on 04-06-2025 Monocytes/100 WBC (Bld) 5.9 % 0-10 [facility] Neutrophil percentageOrdered By: Brandi Tara on 04-06-2025 Neutrophils/100 WBC (Bld) 70.6 % High 47-70 [facility] No Panel InformationOrdered By: Brandi Tara on 04-06-2025 Unsaturated Iron Binding Capacity 345 ug/dL 228-428 [facility] Nucleated red blood cell per centageOrdered By: Brandi Tara on 04-06-2025 Nucleated RBC/100 WBC (Bld) [Ratio] 0 % 0-5 [facility] Operative Reporton Operative Report [facility] Medical Records Department [address] [place] [address] Operative Report 04/06/25 1442 MR#: [id number] Acct: [id number] Name: JOHNY TORRES Rep #: [id number] : 2000 24 From: Esme Baker MD PCP: CURTIS Mena Status:[facility] Location: [place] [address] Procedures Urinary/Genital 52xxx-59xxx: 57[address] Surg Trtmt missed Ab, 1TM Operative Report (Standard) Operative Information Date of Procedure: 04/06/25 Pre-Operative Diagnosis: see problem list comments Post-Operative Diagnosis: same Surgery/Procedure Performed: suction dilation and curettage feltmaker: No Type of Anesthesia: IV Sedation and [...] iup 9 weeks Complications Complications: No 04/06/25 5507 Cosigner Signature (if applicable): CC: Dr. Esme Baker MD; CURTIS Mena Signed Normal [facility] Platelet countOrdered By: Marcelo Pacheco on 04-06-2025 Platelets (Bld) [#/Vol] 251 10*3/uL 150-450 [facility] RBC Auto (Bld) [#/Vol]Ordere d By: Brandi Pacheco on 04-06-2025 RBC (Bld) [#/Vol] 3.82 10*6/uL Low 4.2-5.4 [facility] Serum or plasma IgA measurem ent (mass/volume)Ordered By: Brandi Pacheco on 04-06-2025 IgA [Mass/Vol] 139 mg/dL 87-352 [facility] Comment on above: Performed at: [address] [id number] Director: Td Sanders PhD, Phone: [phone] Serum or plasma ferritin brenda surement (mass/volume)Ordered By: Brandi Pacheco on 04-06-2025 Ferritin [Mass/Vol] 14 ng/mL Low 22-378 [facility] Serum or plasma iron saturat ion measurement (mass fraction)Ordered By: Brandi Pacheco on 04-06-2025 Iron saturation [Mass fraction] 15.0 % 13-59 [facility] Serum tissue transglutaminas e (tTG) IgA antibody assay (units/volume)Ordered By: Brandi Pacheco on 04-06-2025 tTG IgA Qn (S) <2 U/mL 0-3 [facility] Comment on above: Negative 0 - 3 Weak Positive 4 - 10 Positive >10 Tissue Transglutaminase (tTG) has been identified as the endomysial antigen. Studies have demonstr- ated that endomysial IgA antibodies have over 99% specificity for gluten sensitive enteropathy. Surgery Specimen Level Josiane 04-06-2025 Surgery Specimen Level IV Patient Age/Sex Location Account Attending Physician JOHNY TORRES [facility] [id number] [place]. Esme Baker MD Specimen: [id number] Received: 04/06/25 Status: ARIES Smith Num: [id number] Spec Type: PROD CONC Subm Dr: Dr. [...] of . Designated as retained products of conception" is an 8.0 x 7.7 x 2.0 cm aggregate of tabor-pink to red tissue fragments, mucoid material and clotted blood. Chorionic villi is identified. Oncology Rn sections are submitted in 1 cassette. AL 04/07/2025 CPT:80565 Patient Age/Sex Location Account Attending Physician JOHNY TORRES [facility] [id number] Dr. Esme Baker MD Signed (signature on file) Dr. Josep Ivory MD 04/14/25 1533 Normal [facility] Comment on above: Performed By: #### L 700.8000 #### [facility] [address] [place], [place], [address] T4 Free Directon 04-06-2025 T4 FREE DIRECT 1.30 ng/dL Normal 0.76-1.46 [facility] Comment on above: Performed By: #### L 700.8000 #### [facility] [address] [place], [place], [address] T4 freeOrdered By: Brandi Pacheco on 04-06-2025 Free T4 [Mass/Vol] 1.30 ng/dL 0.76-1.46 [facility] TSH DL <= 0.005 mIU/L QnOrde red By: Brandi Pacheco on 04-06-2025 TSH Qn 1.310 uIU/mL 0.300-4.200 [facility] Thyroid Stim Hormone (TSH)on 04-06-2025 TSH 1.310 uIU/mL Normal 0.300-4.200 [facility] Comment on above: Performed By: #### L 506.1001 #### [facility] [address] [place], [place], [address] Type AND Screenon 04-06-2025 Ab SCREEN GEL Negative Normal [facility] Comment on above: Order Comment: [id number] C Performed By: #### L 506.1001 #### [facility] [address] [place], [place], [address] Urine Cultureon 04-06-2025 URC Culture exhibits no growth. Normal [facility] Comment on above: Performed By: #### L 505.5000, M100.2200 #### [facility] [address] [place], [address] Vitamin B12on 04-06-2025 Cobalamin (Vitamin B12) [Mass/Vol] 465 pg/mL Normal 180-914 [facility] Comment on above: Performed By: #### L 506.1001 #### [facility] [address] [place], [address] Vitamin B12 ser/plasOrdered By: Brandi Pacheco on 04-06-2025 Cobalamin (Vitamin B12) [Mass/Vol] 465 pg/mL 180-914 [facility] White blood cell (WBC) count Ordered By: Brandi Pacheco on 04-06-2025 WBC (Bld) [#/Vol] 7.5 10*3/uL 4.4-11.0 [facility] Amphetamine detection with 1 000 ng/mL as cutoffOrdered By: Brandi Pacheco on 04-05-2025 Amphetamines Screen method >1000 ng/mL Ql (U) Negative < 200 ng/mL [facility] No Panel InformationOrdered By: Brandi Pacheco on 04-05-2025 Urine Buprenorphine Qualitative Negative < 200 ng/mL [facility] Urine Oxycodone Screen Negative < 100 ng/mL [facility] Jewelsmith Office Visit Reporton 04-05-2025 Jewelsmith Office Visit Report [facility], [address] [place] [address] OFFICE VISIT Date of Service: 04/05/25 MR#: [id number] Acct: [id number] Name: JOHNY TORRES Rep #: [id number] : 2000 Provider: Dr. Brandi Gray, DO Age/Sex: 24/F [place] [facility] [place]: Signed Intake Vital Signs 12/22/24 09:34 03/11/25 08:03 04/05/25 10:51 04/05/25 10:53 Height 5 ft 3 in 5 ft 3 in 5 ft 3 in 5 ft 3 in Weight: 138 lb BMI 24.4 BP 121/79 H Intake Visit Reasons: *EST* NOB LMP 02/01, STARR 11/08 Pipe Puller Required: No Is patient in pain?: No Allergies Latex, Natural Rubber Allergy (Mild, Verified 04/05/25 10:49) Itching hydrocodone (From Vicodin) Allergy (Verified 04/05/25 10:49) other hydromorphone (From Dilaudid) Adverse Reaction (Intermediate, Verified 04/05/25 10:49) passed out Medications ???Medication ???Instructions ???Recorded ???Confirmed ???Type multivit-min no.71-iron fum 28 1 cap PO DAILY 05/16/23 04/05/25 H istory mg-folate no.1 1 mg-dha 300 mg capsule (PNV-[place]) levothyroxine 50 mcg tablet 50 mcg PO [...] History of throat surgery History of tonsillectomy [place] teeth extracted Family History Grandmother Ovarian cancer, Onset Age: 70 Paternal great grandmother Colon cancer, Onset Age: 60 Paternal Social History adopted: No household members: spouse and children housing: house number of children: 2 current occupational status: unemployed current occupation: [employer] pets and animals: Yes pets and animals: [...] 1-2 times per week duration: 30-45 minutes/day stacey/sikhism: Oriental Orthodox seatbelt use: always do you feel safe [...] term 8#6oz Male epidural Claus Escobar 12/17/23 Ellia 37 live - full term 6lbs 14oz Female epidural [facility] Olivia Escobar Delivery Date: 11/07/21 Last [...] St Visit (more content not included)... Normal [facility] Quantitative urine opiates m easurementOrdered By: Brandi Pacheco on 04-05-2025 Opiates Ql (U) Negative < 300 ng/mL [facility] Screening urine fentanyl brenda surementOrdered By: Brandi Pacheco on 04-05-2025 fentaNYL Screen Ql (U) Negative [facility] Urine Drug Screen (VISTA)on 04-05-2025 AMPHETAMINES Negative Normal <1000 ng/mL [facility] Comment on above: Order Comment: UNK Performed By: #### L 505.5000, M100.2200 #### [facility] [address] [place], [address] BARBITIURATES Negative Normal < 200 ng/mL [facility] Comment on above: Order Comment: UNK Performed By: #### L 505.5000, M100.2200 #### [facility] [address] [place], [address] BENZODIAZIPINE Negative Normal < 200 ng/mL [facility] Comment on above: Order Comment: UNK Performed By: #### L 505.5000, M100.2200 #### [facility] [address] [place], [address] BUP Ur Drug Scr Negative Normal < 200 ng/mL [facility] Comment on above: Order Comment: UNK Performed By: #### L 505.5000, M100.2200 #### [facility] [address] [place], [address] COCAINE Negative Normal < 300 ng/mL [facility] Comment on above: Order Comment: UNK Performed By: #### L 505.5000, M100.2200 #### [facility] [address] [place], [address] Fentanyl Negative Normal [facility] Comment on above: Order Comment: UNK Performed By: #### L 505.5000, M100.2200 #### [facility] [address] [place], [address] METHADONE Negative Normal < 300 ng/mL [facility] Comment on above: Order Comment: UNK Performed By: #### L 505.5000, M100.0 #### [facility] [address] [place], [address] OPIATES Negative Normal < 300 ng/mL [facility] Comment on above: Order Comment: UNK Performed By: #### L 505.5000, M100.2200 #### [facility] [address] [place], [address] OXYCODONE Negative Normal < 100 ng/mL [facility] Comment on above: Order Comment: UNK Performed By: #### L 505.5000, M100.2200 #### [facility] [address] [place], [address] PCP Negative Normal < 25 ng/mL [facility] Comment on above: Order Comment: UNK Performed By: #### L 505.5000, M100.2200 #### [facility] [address] [place], [address] THC Negative Normal < 50 ng/mL [facility] Comment on above: Order Comment: UNK Performed By: #### L 505.5000, M100.2200 #### [facility] [address] [place], [address] Urine benzodiazepine levelOr dered By: Brandi Pacheco on 04-05-2025 Benzodiazepines Ql (U) Negative < 200 ng/mL [facility] Urine cocaine levelOrdered B y: Brandi Pacheco on 04-05-2025 Cocaine Ql (U) Negative < 300 ng/mL [facility] Urine cultureOrdered By: Jojo Pacheco on 04-05-2025 Bacteria identified Cx Nom (U) Culture exhibits no growth. [facility] Urine zbmhy-4-jgzqdknkieyyel abinol (THC) measurementOrdered By: Brandi Pacheco on 04-05-2025 Cannabinoids Screen Ql (U) Negative < 50 ng/mL [facility] Urine phencyclidine (PCP) de tectionOrdered By: Brandi Pacheco on 04-05-2025 Phencyclidine Ql (U) Negative < 25 ng/mL [facility] HCG, TOTAL, QNon 03-23-2025 HCG Qn [id number] m[IU]/mL [facility] Comment on above: Result Comment: Refe rence Range Non or premenopausal <5 Postmenopausal <10 Values from different assay methods may vary. The use of this assay to monitor or to diagnose patients with cancer or any condition unrelated to has not been cleared or approved by the FDA or the general freight agent of the assay. Performed By: #### 7 573, 622, 45619, 866, 927, 1512, 623[address], 899 #### [facility] [address] [facility], [address] [place] [id number] Photoresist Printer: Michele Lewis MD Absolute lymphocyte countOrd ered By: Esme Baker on 03-11-2025 Lymphocytes Auto (Unsp spec) [#/Vol] 1.29 10*3/uL 0.83-4.51 [facility] Absolute neutrophil countOrd ered By: Esme Baker on 05-29-2025 Neutrophils (Bld) [#/Vol] 3.4 10*3/uL 2.0-7.7 [facility] Automated blood erythrocyte countOrdered By: Esme Villafanajanelle on 03-11-2025 RBC (Bld) [#/Vol] 3.93 10*6/uL Low 4.2-5.4 [facility] Comment on above: Performed By: #### L 700.8000 #### [facility] [address] [place], [place], [address] Automated blood hematocrit ( percentage)Ordered By: Esme Baker on 03-11-2025 Hematocrit (Bld) [Volume fraction] 33.0 % Low 37-47 [facility] Comment on above: Performed By: #### L 700.8000 #### [facility] [address] [place], [address] Automated lymphocyte count a s percentage of total leukocytesOrdered By: Esme Baker on 03-11-2025 Lymphocytes/100 WBC Auto (Unsp spec) 24.8 % 19-41 [facility] Basophil percentageOrdered B y: Esme Villafanajanelle on 03-11-2025 Basophils/100 WBC (Bld) 1.0 % Normal 0-1 [facility] Comment on above: Performed By: #### L 700.8000 #### [facility] [address] [place], [address] CBC W/Diff, Automatedon 02-12 Absolute Lymph 1.29 X10 3/uL Normal 0.83-4.51 [facility] Comment on above: Performed By: #### L 700.8000 #### [facility] [address] [place], [address] (318 Absolute Neut 3.4 X10 3/uL Normal 2.0-7.7 [facility] Comment on above: Performed By: #### L 700.8000 #### [facility] [address] [place], [address] IG% 0.200 Normal 0.0-0.9 [facility] Comment on above: Result Comment: IG% - Immature Granulocytes (promyelocytes, myelocytes and metamyelocytes) > 1% indicates that a LEFT SHIFT is Present. Performed By: #### L 700.8000 #### [facility] [address] [place], [address] Lymphocytes/100 WBC (Bld) 24.8 % Normal 19-41 [facility] Comment on above: Performed By: #### L 700.8000 #### [facility] [address] [place], [address] Nucleated RBC (Bld) [#/Vol] 0 10*3/uL Normal 0-5 [facility] Comment on above: Performed By: #### L 700.8000 #### [facility] [address] [place], [address] RDW SD 38.5 fl Normal 35.1-43.9 [facility] Comment on above: Performed By: #### L 700.8000 #### [facility] [address] [place], [place], [address] Endocrinology Visit Reporton 03-11-2025 Endocrinology Visit Report [facility] [address] [facility] [place], [place] [address] OFFICE VISIT Date of Service: 03/11/25 MR#: [id number] Acct: [id number] Name: BRIANJOHNY RICHARD Rep #: [id number] : 2000 Provider: Pam Pike Age/Sex: 24/F [place] [facility] [place] Status: Signed Intake Vital Signs 12/22/24 09:34 [...] mg-folate no.1 1 mg-dha 300 mg capsule (PNV-[place]) levothyroxine 50 mcg tablet 50 mcg PO QDAY #90 tabs 01/11/25 0 03/11/25 Rx Patient : Yes (5 w 3 d) [facility] Medical History (Updated 03/11/25 @ 08:[address] 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..] in: walking frequency: daily duration: 30-45 minutes/day stacey/sikhism: Oriental Orthodox seatbelt use: always do you feel safe [...] in c (more content not included)... Normal [facility] Eosinophil percentageOrdered By: Esme Baker on 03-11-2025 Eosinophils/100 WBC (Bld) 2.7 % Normal 0-5 [facility] Comment on above: Performed By: #### L 700.8000 #### [facility] [place], [address] Erythrocyte distribution wid th ratioOrdered By: Esme Baker on 03-11-2025 Erythrocyte distribution width (RBC) [Ratio] 12.6 % Normal 11.6-14.6 [facility] Comment on above: Performed By: #### L 700.8000 #### [facility] [address] [place], [address] Erythrocyte distribution wid th standard deviationOrdered By: Esme Baker on 03-11-2025 Erythrocyte distribution width (RBC) [Ratio] 38.5 fl 35.1-43.9 [facility] Hemoglobin measurementOrdere d By: Esme Baker on 03-11-2025 Hemoglobin (Bld) [Mass/Vol] 11.2 g/dL Low 12.0-15.0 [facility] Comment on above: Performed By: #### L 700.8000 #### [facility] [address] [place], [address] Immature granulocytes/100 WB C Auto (Bld)Ordered By: Esme Baker on 03-11-2025 Immature granulocytes/100 WBC (Bld) 0.200 % 0.0-0.9 [facility] Comment on above: IG% - Immature Granu locytes (promyelocytes, myelocytes and metamyelocytes) > 1% indicates that a LEFT SHIFT is Present. MCV (mean corpuscular volume ) determinationOrdered By: Esme Baker on 03-11-2025 MCV (RBC) [Entitic vol] 84.0 fL Normal 81-99 [facility] Comment on above: Performed By: #### L 700.8000 #### [facility] [address] [place], [address] Mean corpuscular hemoglobin (MCH) determinationOrdered By: Esme Baker on 03-11-2025 MCH (RBC) [Entitic mass] 28.5 pg Normal 27.0-32.0 [facility] Comment on above: Performed By: #### L 700.8000 #### [facility] [address] [place], [address] Mean corpuscular hemoglobin concentration (MCHC) determinationOrdered By: Esme Baker on 03-11-2025 MCHC (RBC) [Mass/Vol] 33.9 g/dL Normal 32-36 [facility] Comment on above: Performed By: #### L 700.8000 #### [facility] [address] [place], [address] Mean platelet volume determi nationOrdered By: Esme Baker on 03-11-2025 Platelet mean volume (Bld) [Entitic vol] 9.8 fL Normal 6.2-12.0 [facility] Comment on above: Performed By: #### L 700.8000 #### [facility] [address] [place], [address] Monocyte percentageOrdered B y: Esme Baker on 03-11-2025 Monocytes/100 WBC (Bld) 6.0 % Normal 0-10 [facility] Comment on above: Performed By: #### L 700.8000 #### [facility] [address] [place], [address] Neutrophil percentageOrdered By: Esme Baker on 03-11-2025 Neutrophils/100 WBC (Bld) 65.3 % Normal 47-70 [facility] Comment on above: Performed By: #### L 700.8000 #### [facility] [address] [place], [address] Nucleated red blood cell per centageOrdered By: Esme Baker on 03-11-2025 Nucleated RBC/100 WBC (Bld) [Ratio] 0 % 0-5 [facility] Platelet countOrdered By: Luciano Baker on 03-11-2025 Platelets (Bld) [#/Vol] 297 10*3/uL Normal 150-450 [facility] Comment on above: Performed By: #### L 700.8000 #### [facility] [address] [place], [address] T4 Free Directon 03-11-2025 T4 FREE DIRECT 1.30 ng/dL Normal 0.76-1.46 [facility] Comment on above: Performed By: #### L 506.0400, L501.9520 #### [facility] [address] [place], [address] T4 freeOrdered By: Anson Richter on 03-11-2025 Free T4 [Mass/Vol] 1.30 ng/dL 0.76-1.46 [facility] TSH DL <= 0.005 mIU/L QnOrde red By: Anson Richter on 03-11-2025 TSH Qn 2.830 uIU/mL 0.300-4.200 [facility] Thyroid Stim Hormone (TSH)on 03-11-2025 TSH 2.830 uIU/mL Normal 0.300-4.200 [facility] Comment on above: Performed By: #### L 506.0400, L501.9520 #### [facility] [address] [place], [address] Vitamin D,25 Hydroxyon 03-11 Vitamin D 25-OH 27.1 ng/mL Low 30-100 [facility] Comment on above: Result Comment: Ariane min D Status Deficiency: <20 ng/mL (50nmol/L) Insufficiency: 20-30 ng/mL (50-75 nmol/L) Sufficiency: 30-100 ng/mL (75-250 nmol/L) Toxicity: >100 ng/mL (>250 nmol/L) Performed By: #### L 700.8000 #### [facility] [address] [place], [address] White blood cell (WBC) count Ordered By: Esme Baker on 03-11-2025 WBC (Bld) [#/Vol] 5.2 10*3/uL Normal 4.4-11.0 [facility] Comment on above: Performed By: #### L 700.8000 #### [facility] [address] [place], [address] ED Prov Noteon 12-25-2024 ED Prov Note HPI: 12/25/2024, Time: @RICHELLE@ Johny Freed is a 24 y.o. female [...] are negative. PAST HISTORY Past Medical History: @[facility]@ Past Surgical History: has a past surgical [...] degrees C) (Oral) Resp 16 Ht 5' 3" Wt 61.2 kg (135 lb) LMP 12/08/2024 [...] specific det (more content not included)... Normal [facility] POC [facility] Chloride [Moles/Vol] 107 mmol/L Normal 98-108 [facility] Comment on above: Order Comment: [facility] has implemented the eGFR calculation approach that does not have a coefficient for race that conforms to the NKF-ASN Task Force Recommendations. CO2 [Moles/Vol] 21 mmol/L Normal 21-32 [facility] Comment on above: Order Comment: [facility] has implemented the eGFR calculation approach that does not have a coefficient for race that conforms to the NKF-ASN Task Force Recommendations. Creatinine [Mass/Vol] 0.52 mg/dL Normal 0.40-1.10 [facility] Comment on above: Order Comment: [facility] has implemented the eGFR calculation approach that does not have a coefficient for race that conforms to the NKF-ASN Task Force Recommendations. Glucose [Mass/Vol] 87 mg/dL Normal 65-99 [facility] Comment on above: Order Comment: [facility] has implemented the eGFR calculation approach that does not have a coefficient for race that conforms to the NKF-ASN Task Force Recommendations. POC GFR 133 mL/min/1.73 m2 Normal >=60 [facility] Comment on above: Order Comment: [facility] has implemented the eGFR calculation approach that does not have a coefficient for race that conforms to the NKF-ASN Task Force Recommendations. Result Comment: Ann-Marie mated GFR was calculated using the 2020 CKD-EPI creatinine equation. POC IONIZED CALCIUM 4.5 mg/dL Normal 4.5-5.3 [facility] Comment on above: Order Comment: [facility] has implemented the eGFR calculation approach that does not have a coefficient for race that conforms to the NKF-ASN Task Force Recommendations. Potassium [Moles/Vol] 3.4 mmol/L Low 3.5-5.1 [facility] Comment on above: Order Comment: [facility] has implemented the eGFR calculation approach that does not have a coefficient for race that conforms to the NKF-ASN Task Force Recommendations. Sodium [Moles/Vol] 139 mmol/L Normal 135-145 [facility] Comment on above: Order Comment: [facility] has implemented the eGFR calculation approach that does not have a coefficient for race that conforms to the NKF-ASN Task Force Recommendations. Urea nitrogen [Mass/Vol] 11 mg/dL Normal 8-25 [facility] Comment on above: Order Comment: [facility] has implemented the eGFR calculation approach that does not have a coefficient for race that conforms to the NKF-ASN Task Force Recommendations. POC CBC AND DIFFERENTIALon 0 - BASOPHILS ABSOLUTE COUNT 0.01 K/mcL Normal 0.00-0.30 [facility] Basophils/100 WBC (Bld) 0.3 % Normal [facility] Eosinophils (Bld) [#/Vol] 0.06 10*3/uL Normal 0.00-0.50 [facility] Eosinophils/100 WBC (Bld) 2.0 % Normal [facility] Erythrocyte distribution width (RBC) [Ratio] 12.1 % Normal 11.6-14.8 [facility] Hematocrit (Bld) [Volume fraction] 35.5 % Low 36.0-46.0 [facility] Hemoglobin (Bld) [Mass/Vol] 12.3 g/dL Normal 12.0-16.0 [facility] IG ABSOLUTE 0.01 K/mcL Normal 0.00-0.30 [facility] IG PERCENT 0.30 % [facility] Comment on above: Result Comment: The IG parameter is the percentage of metamyelocytes, myelocytes and promyelocytes. An immature granulocyte count (IG) of 1% or more suggests the possibility of infection, an IG count of 3% is very likely related to an infection. Lymphocytes (Bld) [#/Vol] 0.72 10*3/uL Low 0.90-4.00 [facility] Lymphocytes/100 WBC (Bld) 24.2 % Normal [facility] MCH (RBC) [Entitic mass] 28.4 pg Normal 26.0-34.0 [facility] MCV (RBC) [Entitic vol] 82.0 fL Normal 80.0-100.0 [facility] MEAN CORPUSCULAR HEMOGLOBIN CONC 34.6 g/dL Normal 31.0-37.0 [facility] Monocytes (Bld) [#/Vol] 0.24 10*3/uL Low 0.30-0.90 [facility] Monocytes/100 WBC (Bld) 8.1 % Normal [facility] NEUTROPHILS ABSOLUTE COUNT 1.94 K/mcL Normal 1.70-7.00 [facility] Neutrophils/100 WBC (Bld) 65.1 % Normal [facility] Platelet mean volume (Bld) [Entitic vol] 8.9 fL Low 9.4-12.4 [facility] Platelets (Bld) [#/Vol] 205 10*3/uL Normal 150-400 [facility] RBC (Bld) [#/Vol] 4.33 10*6/uL Normal 4.00-5.20 [facility] WBC (Bld) [#/Vol] 2.98 10*3/uL Low 4.50-11.00 [facility] POC LIVER PANEL PLUS Marlin 12-25-2024 Albumin [Mass/Vol] 4.1 g/dL Normal 3.2-5.2 [facility] ALP [Catalytic activity/Vol] 63 U/L Normal 40-140 [facility] Amylase [Catalytic activity/Vol] 33 U/L Normal 25-115 [facility] Amylase [Catalytic activity/Vol] 5 U/L Low 7-33 [facility] AST [Catalytic activity/Vol] 21 U/L Normal 0-45 [facility] Bilirubin [Mass/Vol] 0.6 mg/dL Normal 0.0-1.3 [facility] POC ALT (SGPT) < Normal 0-40 [facility] Protein [Mass/Vol] 7.2 g/dL Normal 6.0-8.0 [facility] XR CHEST PA/APon 12-25-2024 XR CHEST PA/AP [...] on SatDec 25, 2024 3:11:40 PM EDT [facility] Comment on above: Order Comment: Injur y/Trauma [...] on SatDec 25, 2024 3:35:24 PM EDT [facility] Comment on above: Order Comment: Injur y/Trauma [...] injury Pelvic w/ Transvaginalon Pelvic w/ Transvaginal [facility] Imaging Services [facility] [place], [place] [address] Pelvic w/ Transvaginal MR#: [id number] Acct: [id number] Name: JOHNY FREED Rep #: [id number] : 2000 F 24 From: Sandip De Jesus PCP: CURTIS Mena Status: REG CLI Study: Pelvic w/ Transvaginal Date of Exam: 12/24/24 Exam# [id number] Ordering Dr: Esme Baker PROCEDURE: PELVIC W/ [...] Physiologic amount of free fluid Reading Location: [facility] CC: Dr. Esme Baker MD; CURTIS Mena Acid Crane Operator: Signed Normal [facility] Absolute lymphocyte countOrd ered By: Esme Baker on 12-22-2024 Lymphocytes Auto (Unsp spec) [#/Vol] 1.37 10*3/uL 0.83-4.51 [facility] Absolute neutrophil countOrd ered By: Esme Baker on 12-22-2024 Neutrophils (Bld) [#/Vol] 2.2 10*3/uL 2.0-7.7 [facility] Automated lymphocyte count a s percentage of total leukocytesOrdered By: Esme Baker on 12-22-2024 Lymphocytes/100 WBC Auto (Unsp spec) 33.3 % 19-41 [facility] Basophil percentageOrdered B y: Esme Baker on 12-22-2024 Basophils/100 WBC (Bld) 0.7 % 0-1 [facility] CBC W/Diff, Automatedon 12-12-2024 Absolute Lymph 1.37 X10 3/uL Normal 0.83-4.51 [facility] Comment on above: Performed By: #### L 100.0100 #### [facility] [address] [place], [address] Absolute Neut 2.2 X10 3/uL Normal 2.0-7.7 [facility] Comment on above: Performed By: #### L 100.0100 #### [facility] [address] [place], [address] Basophils/100 WBC (Bld) 0.7 % Normal 0-1 [facility] Comment on above: Performed By: #### L 100.0100 #### [facility] [address] [place], [address] Eosinophils/100 WBC (Bld) 4.9 % Normal 0-5 [facility] Comment on above: Performed By: #### L 100.0100 #### [facility] [address] [place], [address] Erythrocyte distribution width (RBC) [Ratio] 11.9 % Normal 11.6-14.6 [facility] Comment on above: Performed By: #### L 100.0100 #### [facility] [address] [place], [address] Hematocrit (Bld) [Volume fraction] 34.6 % Low 37-47 [facility] Comment on above: Performed By: #### L 100.0100 #### [facility] [address] [place], [address] Hemoglobin (Bld) [Mass/Vol] 11.9 g/dL Low 12.0-15.0 [facility] Comment on above: Performed By: #### L 100.0100 #### [facility] [address] [place], [address] IG% 0.500 Normal 0.0-0.9 [facility] Comment on above: Result Comment: IG% - Immature Granulocytes (promyelocytes, myelocytes and metamyelocytes) > 1% indicates that a LEFT SHIFT is Present. Performed By: #### L 100.0100 #### [facility] [address] [place], [address] Lymphocytes/100 WBC (Bld) 33.3 % Normal 19-41 [facility] Comment on above: Performed By: #### L 100.0100 #### [facility] [address] [place], [address] MCH (RBC) [Entitic mass] 28.2 pg Normal 27.0-32.0 [facility] Comment on above: Performed By: #### L 100.0100 #### [facility] [address] [place], [address] MCHC (RBC) [Mass/Vol] 34.4 g/dL Normal 32-36 [facility] Comment on above: Performed By: #### L 100.0100 #### [facility] [address] [place], [address] MCV (RBC) [Entitic vol] 82.0 fL Normal 81-99 [facility] Comment on above: Performed By: #### L 100.0100 #### [facility] [address] [place], [address] Monocytes/100 WBC (Bld) 8.0 % Normal 0-10 [facility] Comment on above: Performed By: #### L 100.0100 #### [facility] [address] [place], [address] Neutrophils/100 WBC (Bld) 52.6 % Normal 47-70 [facility] Comment on above: Performed By: #### L 100.0100 #### [facility] [address] [place], [address] Nucleated RBC (Bld) [#/Vol] 0 10*3/uL Normal 0-5 [facility] Comment on above: Performed By: #### L 100.0100 #### [facility] [address] [place], [address] Platelet mean volume (Bld) [Entitic vol] 9.9 fL Normal 6.2-12.0 [facility] Comment on above: Performed By: #### L 100.0100 #### [facility] [address] [place], [address] Platelets (Bld) [#/Vol] 279 10*3/uL Normal 150-450 [facility] Comment on above: Performed By: #### L 100.0100 #### [facility] [address] [place], [address] RBC (Bld) [#/Vol] 4.22 10*6/uL Normal 4.2-5.4 [facility] Comment on above: Performed By: #### L 100.0100 #### [facility] [address] [place], [address] RDW SD 35.7 fl Normal 35.1-43.9 [facility] Comment on above: Performed By: #### L 100.0100 #### [facility] [address] [place], [address] WBC (Bld) [#/Vol] 4.1 10*3/uL Low 4.4-11.0 [facility] Comment on above: Performed By: #### L 100.0100 #### [facility] [address] [place], [address] Eosinophil percentageOrdered By: Esme Baker on 12-22-2024 Eosinophils/100 WBC (Bld) 4.9 % 0-5 [facility] Erythrocyte distribution wid th ratioOrdered By: Esme Baker on 12-22-2024 Erythrocyte distribution width (RBC) [Ratio] 11.9 % 11.6-14.6 [facility] Erythrocyte distribution wid th standard deviationOrdered By: Esme Baker on 12-22-2024 Erythrocyte distribution width (RBC) [Entitic vol] 35.7 fL 35.1-43.9 [facility] Erythrocyte distribution width (RBC) [Ratio] 35.7 fl 35.1-43.9 [facility] Hematocrit Auto (Bld) [Volum e fraction]Ordered By: Esme Baker on 12-22-2024 Hematocrit (Bld) [Volume fraction] 34.6 % Low 37-47 [facility] Hemoglobin measurementOrdere d By: Esme Baker on 12-22-2024 Hemoglobin (Bld) [Mass/Vol] 11.9 g/dL Low 12.0-15.0 [facility] Immature granulocytes/100 WB C Auto (Bld)Ordered By: Esme Baker on 12-22-2024 Immature granulocytes/100 WBC (Bld) 0.500 % 0.0-0.9 [facility] Comment on above: IG% - Immature Granu locytes (promyelocytes, myelocytes and metamyelocytes) > 1% indicates that a LEFT SHIFT is Present. L506.1001on 12-22-2024 Vitamin D 25-OH 25.5 ng/mL Low 30-100 [facility] Comment on above: Result Comment: Ariane min D Status Deficiency: <20 ng/mL (50nmol/L) Insufficiency: 20-30 ng/mL (50-75 nmol/L) Sufficiency: 30-100 ng/mL (75-250 nmol/L) Toxicity: >100 ng/mL (>250 nmol/L) Performed By: #### L 506.1001 #### [facility] [address] [place], [place], [address] Lymphocytes Auto (Unsp spec) [#/Vol]Ordered By: Esme Baker on 12-22-2024 Lymphocytes (Bld) [#/Vol] 1.37 10*3/uL 0.83-4.51 [facility] Lymphocytes/100 WBC Auto (Un sp spec)Ordered By: Esme Baker on 12-22-2024 Lymphocytes/100 WBC (Bld) 33.3 % 19-41 [facility] MCV (mean corpuscular volume ) determinationOrdered By: Esme Baker on 12-22-2024 MCV (RBC) [Entitic vol] 82.0 fL 81-99 [facility] Mean corpuscular hemoglobin (MCH) determinationOrdered By: Esme Baker on 12-22-2024 MCH (RBC) [Entitic mass] 28.2 pg 27.0-32.0 [facility] Mean corpuscular hemoglobin concentration (MCHC) determinationOrdered By: Esme Baker on 12-22-2024 MCHC (RBC) [Mass/Vol] 34.4 g/dL 32-36 [facility] Mean platelet volume determi nationOrdered By: Esme Baker on 12-22-2024 Platelet mean volume (Bld) [Entitic vol] 9.9 fL 6.2-12.0 [facility] Monocyte percentageOrdered B y: Esme Baker on 12-22-2024 Monocytes/100 WBC (Bld) 8.0 % 0-10 [facility] Neutrophil percentageOrdered By: Esme Baker on 12-22-2024 Neutrophils/100 WBC (Bld) 52.6 % 47-70 [facility] Nucleated red blood cell per centageOrdered By: Esme Baker on 12-22-2024 Nucleated RBC/100 WBC (Bld) [Ratio] 0 % 0-5 [facility] Jewelsmith Office Visit Reporton 12-22-2024 Jewelsmith Office Visit Report [facility] [address], [address] [place] [address] OFFICE VISIT Date of Service: 12/22/24 MR#: [id number] Acct: [id number] Name: JOHNY FREED Rep #: [id number] : 2000 Provider: Dr. Esme orellana MD Age/Sex: 24/F [place] [facility] Status: Signed Intake Vital Signs 01/27/24 13:07 12/22/24 09:34 Height 5 ft 3 in 5 ft 3 in Weight: 138 lb 6 oz BMI 24.5 BP 124/79 H Intake Visit Reasons: possible vaginal prolapse Pipe Puller Required: No Is patient in pain?: No Allergies Latex, Natural Rubber Allergy (Mild, Verified 12/22/24 09:35) Itching hydrocodone (From Vicodin) Allergy (Verified 12/22/24 09:35) other hydromorphone (From Dilaudid) Adverse Reaction (Intermediate, Verified 12/22/24 09:35) passed out Medications ???Medication ???Instructions ???Recorded ???Confirmed ???Type multivit-min no.71-iron fum 28 1 cap PO DAILY 05/16/23 12/22/24 H istory mg-folate no.1 1 mg-dha 300 mg capsule (PNV-[place]) levothyroxine 50 mcg tablet 50 mcg PO QDAY #90 tabs 07/12/24 0 12/22/24 Rx Is last menstrual period known: Yes Last Menstrual Period: 12/08/24 (periods have become shorter after having 2nd baby ) Post menopausal: No [facility] : No [facility] Autoimmune thyroiditis Vaginal delivery Oligohydramnios Gestational diabetes mellitus (GDM) affecting , antepartum Abnormal glucose affecting Shoulder dystocia during labor and delivery Rh negative status during H/O herpes genitalis Surgical History History of throat surgery History of tonsillectomy [place] teeth extracted Family History Grandmother Ovarian cancer great grandmother Social History (Updated 12/22/24 @ 09:38 by Bethany Webber) adopted: No household members: spouse and children number of children: 2 current occupational status: unemployed current occupation: [employer] pets and animals: Yes pets and animals: [...] in: walking frequency: daily duration: 30-45 minutes/day stacey/sikhism: Oriental Orthodox seatbelt use: always do you feel safe [...] live - full term 6lbs 14oz Female [facility] Ileana rcanthony Delivery Date: 11/07/21 Last Updated [...] Appearance: aver (more content not included)... Normal [facility] Platelet countOrdered By: Luciano Baker on 12-22-2024 Platelets (Bld) [#/Vol] 279 10*3/uL 150-450 [facility] RBC Auto (Bld) [#/Vol]Ordere d By: Esme Baker on 12-22-2024 RBC (Bld) [#/Vol] 4.22 10*6/uL 4.2-5.4 [facility] Vitamin D, 25-hydroxyOrdered By: Esme Baker on 12-22-2024 Vitamin D 25-Hydroxy 25.5 ng/mL Low 30-100 [facility] Comment on above: Vitamin D StatusDefi ciency: <20 ng/mL (50nmol/L)Insufficiency: 20-30 ng/mL (50-75 nmol/L)Sufficiency: 30-100 ng/mL (75-250 nmol/L)Toxicity: >100 ng/mL (>250 nmol/L) White blood cell (WBC) count Ordered By: Esme Baker on 12-22-2024 WBC (Bld) [#/Vol] 4.1 10*3/uL Low 4.4-11.0 [facility] CBC (INCLUDES DIFF/PLT)on Basophils (Bld) [#/Vol] 0.051 10*3/uL Normal 0-200 [facility] Comment on above: Performed By: #### 7 573, 622, 25166, 866, 927, 6399, 83812, 899 #### [facility] [place] [address] Photoresist Printer: Michele Lewis MD Basophils/100 WBC (Bld) 1.1 % Normal [facility] Comment on above: Performed By: #### 7 573, 622, 02377, 866, 927, 6399, 26473, 899 #### [facility] [place] [address] [employer] Printer: Michele Lewis MD Eosinophils (Bld) [#/Vol] 0.198 10*3/uL Normal 15-500 [facility] Comment on above: Performed By: #### 7 573, 622, 17916, 866, 927, 6399, 56819, 899 #### [facility] [place] [address] [employer] Printer: Michele Lewis MD Eosinophils/100 WBC (Bld) 4.3 % Normal [facility] Comment on above: Performed By: #### 7 573, 622, 59201, 866, 927, 6399, 28156, 899 #### [facility] [place] [address] [employer] Printer: Michele Lewis MD Erythrocyte distribution width (RBC) [Ratio] 12.1 % Normal 11.0-15.0 [facility] Comment on above: Performed By: #### 7 573, 622, 37640, 866, 927, 6399, 63410, 899 #### [facility] [place] [address] [employer] Printer: Michele Lewis MD Hematocrit (Bld) [Volume fraction] 35.5 % Normal 35.0-45.0 [facility] Comment on above: Performed By: #### 7 573, 622, 67671, 866, 927, 6399, 92808, 899 #### [facility] [place] [address] [employer] Printer: Michele Lewis MD Hemoglobin (Bld) [Mass/Vol] 11.6 g/dL Low 11.7-15.5 [facility] Comment on above: Performed By: #### 7 573, 622, 81564, 866, 927, 6399, 96889, 899 #### [facility] [place] [address] [employer] Printer: Michele Lewis MD Lymphocytes (Bld) [#/Vol] 1.67 10*3/uL Normal 850-3900 [facility] Comment on above: Performed By: #### 7 573, 622, 47043, 866, 927, 6399, 60464, 899 #### [facility] [place] [address] [employer] Printer: Michele Lewis MD Lymphocytes/100 WBC (Bld) 36.3 % Normal [facility] Comment on above: Performed By: #### 7 573, 622, 56268, 866, 927, 6399, 01663, 899 #### [facility] [place] [address] [employer] Printer: Michele Lewis MD MCH (RBC) [Entitic mass] 28.2 pg Normal 27.0-33.0 [facility] Comment on above: Performed By: #### 7 573, 622, 59578, 866, 927, 6399, 14547, 899 #### [facility] [place] [address] [employer] Printer: Michele Lewis MD MCHC (RBC) [Mass/Vol] 32.7 [...] the patient's clinical condition. Performed By: #### 7 573, 622, 55343, 866, 927, 6399, 30145, 899 #### [facility] [place] [address] Phot[employer] Printer: Michele Lewis MD MCV (RBC) [Entitic vol] 86.2 fL Normal 80.0-100.0 [facility] Comment on above: Performed By: #### 7 573, 622, 67855, 866, 927, 6399, 70101, 899 #### [facility] [place] [address] Photoresist Printer: Michele Lewis MD Monocytes (Bld) [#/Vol] 0.299 10*3/uL Normal 200-950 [facility] Comment on above: Performed By: #### 7 573, 622, 45548, 866, 927, 6399, 77486, 899 #### [facility] [place] [address] Photoresist Printer: Michele Lewis MD Monocytes/100 WBC (Bld) 6.5 % Normal [facility] Comment on above: Performed By: #### 7 573, 622, 78933, 866, 927, 6399, 42602, 899 #### [facility] of [place] [address] [employer] Printer: Michele Lewis MD Neutrophils (Bld) [#/Vol] 2.383 10*3/uL Normal 6755-4494 [facility] Comment on above: Performed By: #### 7 573, 622, 56658, 866, 927, 6399, 07324, 899 #### [facility] [place] [address] Photoresist Printer: Michele Lewis MD Neutrophils/100 WBC (Bld) 51.8 % Normal [facility] Comment on above: Performed By: #### 7 573, 622, 30533, 866, 927, 6399, 72656, 899 #### [facility] of [place] [address] [employer] Printer: Michele Lewis MD Platelet mean volume (Bld) [Entitic vol] 9.9 fL Normal 7.5-12.5 [facility] Comment on above: Performed By: #### 7 573, 622, 47754, 866, 927, 6399, 60331, 899 #### [facility] [place] [address] Photoresist Printer: Michele Lewis MD Platelets (Bld) [#/Vol] 305 10*3/uL Normal 140-400 [facility] Comment on above: Performed By: #### 7 573, 622, 19310, 866, 927, 6399, 55301, 899 #### [facility] [place] [address] Photoresist Printer: Michele Lewis MD RBC (Bld) [#/Vol] 4.12 10*6/uL Normal 3.80-5.10 [facility] Comment on above: Performed By: #### 7 573, 622, 81690, 866, 927, 6399, 21276, 899 #### [facility] [place] [address] Photoresist Printer: Michele Lewis MD WBC (Bld) [#/Vol] 4.6 10*3/uL Normal 3.8-10.8 [facility] Comment on above: Performed By: #### 7 573, 622, 93313, 866, 927, 6399, 15467, 899 #### [facility] of [place] [address] [employer]oresist Printer: Micheel Lewis MD COMPREHENSIVE METABOLIC PANE L W/ANION GAPon 11-26-2024 Albumin [Mass/Vol] 4.5 g/dL Normal 3.6-5.1 [facility] Comment on above: Performed By: #### 7 573, 622, 90279, 866, 927, 6399, 06651, 899 #### [facility] of [address], [address] [place] [address] Photoresist Printer: Michele Lewis MD ALP [Catalytic activity/Vol] 53 U/L Normal 31-125 [facility] Comment on above: Performed By: #### 7 573, 622, 74985, 866, 927, 6399, 62081, 899 #### [facility] of [place] [address] Photoresist Printer: Michele Lewis MD ALT [Catalytic activity/Vol] 5 U/L Low 6-29 [facility] Comment on above: Performed By: #### 7 573, 622, 81779, 866, 927, 6399, 40524, 899 #### [facility] of [place] [address] Photoresist Printer: Michele Lewis MD AST [Catalytic activity/Vol] 10 U/L Normal 10-30 [facility] Comment on above: Performed By: #### 7 573, 622, 14268, 866, 927, 6399, 84897, 899 #### [facility] [place] [address] Photoresist Printer: Michele Lewis MD Bilirubin [Mass/Vol] 0.4 mg/dL Normal 0.2-1.2 [facility] Comment on above: Performed By: #### 7 573, 622, 87953, 866, 927, 6399, 75773, 899 #### [facility] of [place] [address] Photoresist Printer: Michele Lewis MD Calcium [Mass/Vol] 8.9 mg/dL Normal 8.6-10.2 [facility] Comment on above: Performed By: #### 7 573, 622, 92573, 866, 927, 6399, 86863, 899 #### [facility] [place] [address] Photoresist Printer: Michele Lewis MD Chloride [Moles/Vol] 105 mmol/L Normal 98-110 [facility] Comment on above: Performed By: #### 7 573, 622, 24384, 866, 927, 6399, 83000, 899 #### [facility] [place] [address] Photoresist Printer: Michele Lewis MD CO2 [Moles/Vol] 23 mmol/L Normal 20-32 [facility] Comment on above: Performed By: #### 7 573, 622, 48399, 866, 927, 6399, 16790, 899 #### [facility] [place] [address] Photoresist Printer: Michele Lewis MD Creatinine [Mass/Vol] 0.63 mg/dL Normal 0.50-0.[address] [facility] Comment on above: Performed By: #### 7 573, 622, 68747, 866, 927, 6399, 37487, 899 #### [facility] [place] [address] Photoresist Printer: Michele Lewis MD ELECTROLYTE BALANCE 10 mmol/L (calc) Normal 7-17 [facility] Comment on above: Performed By: #### 7 573, 622, 11618, 866, 927, 6399, 90978, 899 #### [facility] [place] [address] Photoresist Printer: Michele Lewis MD GFR/1.73 sq M.predicted among non-blacks MDRD (S/P/Bld) [Vol rate/Area] 127 mL/min/{1.73_m2} Normal > OR = 60 [facility] Comment on above: Performed By: #### 7 573, 622, 48888, 866, 927, 6399, 52713, 899 #### [facility] of [place] [address] Photoresist Printer: Michele Lewis MD Glucose [Mass/Vol] 90 mg/dL Normal 65-99 [facility] Comment on above: Result Comment: Fasting reference interval Performed By: #### 7 573, 622, 19565, 866, 927, 6399, 99772, 899 #### [facility] of [place] [address] Photoresist Printer: Michele Lewis MD Potassium [Moles/Vol] 4.0 mmol/L Normal 3.5-5.3 [facility] Comment on above: Performed By: #### 7 573, 622, 56393, 866, 927, 6399, 65061, 899 #### [facility] of [place] [address] Photoresist Printer: Michele Lewis MD Protein [Mass/Vol] 7.2 g/dL Normal 6.1-8.1 [facility] Comment on above: Performed By: #### 7 573, 622, 54657, 866, 927, 6399, 56313, 899 #### [facility] of [place] [address] Photoresist Printer: Michele Lewis MD Sodium [Moles/Vol] 138 mmol/L Normal 135-146 [facility] Comment on above: Performed By: #### 7 573, 622, 72009, 866, 927, 6399, 66272, 899 #### [facility] of [place] [address] Photoresist Printer: Michele Lewis MD Urea nitrogen [Mass/Vol] 11 mg/dL Normal 7-25 [facility] Comment on above: Performed By: #### 7 573, 622, 28497, 866, 927, 6399, 77098, 899 #### [facility] of [place] [address] Photoresist Printer: Michele Lewis MD FERRITINon 11-26-2024 Ferritin [Mass/Vol] 9 ng/mL Low 16-154 [facility] Comment on above: Performed By: #### 7 573, 622, 31468, 866, 927, 6399, 13651, 899 #### [facility] [address], [address] [place] [address] Photoresist Printer: Michele Lewis MD HEMOGLOBIN A1c WITH eAGon eAG (mmol/L) 5.5 mmol/L Normal [facility] Comment on above: Performed By: #### 7 573, 622, 72684, 866, 927, 6399, 91612, 899 #### [facility] [address], [address] [place] [address] Photoresist Printer: Michele Lewis MD HEMOGLOBIN A1c 5.1 % [...] diagnosis of diabetes in children. According to [place] [employer] (ADA) guidelines, hemoglobin A1c <7.0% represents optimal control in non- diabetic patients. Different metrics may apply to specific patient populations. Standards of Medical Care in Diabetes(ADA). Performed By: #### 7 573, 622, 91919, 866, 927, 6399, 81524, 899 #### [facility] [address], [address] [place] [address] Photoresist Printer: Michele Lewis MD Magnesium [Mass/Vol] 100 mg/dL Normal [facility] Comment on above: Performed By: #### 7 573, 622, 64443, 866, 927, 6399, 37115, 899 #### [facility] [address], [address] [place] [address] Photoresist Printer: Michele Lewis MD IRON AND TOTAL IRON BINDING CAPACITYon 11-26-2024 % SATURATION 15 % (calc) Low 16-45 [facility] Comment on above: Performed By: #### 7 573, 622, 45420, 866, 927, 6399, 83816, 899 #### [facility] [place] [address] Photoresist Printer: Michele Lewis MD IRON BINDING CAPACITY 391 mcg/dL (calc) Normal 250-450 [facility] Comment on above: Performed By: #### 7 573, 622, 38833, 866, 927, 6399, 73603, 899 #### [facility] [place] [address] Photoresist Printer: Michele Lewis MD IRON, TOTAL 59 mcg/dL Normal 40-190 [facility] Comment on above: Performed By: #### 7 573, 622, 35481, 866, 927, 6399, 60741, 899 #### [facility] [place] [address] Photoresist Printer: Michele Lewis MD MAGNESIUMon 11-26-2024 Magnesium [Mass/Vol] 1.9 mg/dL Normal 1.5-2.5 [facility] Comment on above: Performed By: #### 7 573, 622, 05140, 866, 927, 6399, 08699, 899 #### [facility] of [place] [address] Photoresist Printer: Michele Lewis MD T4, FREEon 11-26-2024 Free T4 [Mass/Vol] 1.2 ng/dL Normal 0.8-1.8 [facility] Comment on above: Performed By: #### 7 573, 622, 73118, 866, 927, 6399, 05569, 899 #### [facility] of [place] [address] Photoresist Printer: Michele Lewis MD TSHon 11-26-2024 TSH Qn 2.26 m[IU]/L Normal [facility] Comment on above: Result Comment: Refe rence Range > or = 20 Years 0.40-4.50 Ranges First trimester 0.26-2.66 Second trimester 0.55-2.73 Third trimester 0.43-2.91 Performed By: #### 7 573, 622, 03502, 866, 927, 6399, 16073, 899 #### [facility] [address] Photoresist Printer: Michele Lewis MD VITAMIN B12on 11-26-2024 Cobalamin [...] pg/mL will have symptoms. Performed By: #### 7 573, 622, 69804, 866, 927, 6399, 16690, 899 #### [facility] [address] Photoresist Printer: Michele Lewis MD Direct serum free thyroxine (FT4) measurementOrdered By: Anson Richter on 09-14-2024 Free T4 [Mass/Vol] 1.08 ng/dL 0.76-1.46 [facility] T4 Free Directon 09-14-2024 T4 FREE DIRECT 1.08 ng/dL Normal 0.76-1.46 [facility] Comment on above: Performed By: #### L 506.1001 #### [facility] [place], [address] TSH QnOrdered By: Anson Richter on 09-14-2024 Thyroid Stimulating Hormone (TSH) 2.470 uIU/mL 0.358-3.740 [facility] Thyroid Stim Hormone (TSH)on 09-14-2024 TSH 2.470 uIU/mL Normal 0.358-3.740 [facility] Comment on above: Performed By: #### L 501.9520, L506.0400 #### [facility] [address] [place], [address] POCT UA Automated manually r esultedOrdered By: Jake Saunders on 08-06-2024 Appearance (U) Clear Clear [facility] Glucose Test strip (U) [Mass/Vol] Negative NEGATIVE mg/dl [facility] Hemoglobin Ql (U) Negative NEGATIVE [facility] Interpretation and review of laboratory results Abnormal [facility] Leukocyte esterase Test strip Ql (U) Negative NEGATIVE [facility] Nitrite Ql (U) Negative NEGATIVE [facility] pH (U) 7.0 [pH] No Reference Range Established [facility] POC Bilirubin, Urine Negative NEGATIVE [facility] POC Color, Urine Yellow Straw, Yellow, Light-Yellow [facility] POC Ketones, Urine Negative NEGATIVE mg/dl [facility] POC Protein, Urine Negative NEGATIVE, 30 (1+) mg/dl [facility] POC Specific [place], Urine 1.025 1.005 - 1.035 [facility] POC Urobilinogen, Urine 2.0 Abnormal 0.2, 1.0 EU/DL [facility] CBC W Auto Differential pane l (Bld)on 02-26-2024 Basophils (Bld) [#/Vol] 0.07 x10*3/uL Normal 0.00-0.10 [facility] Comment on above: Performed By: #### 5 7021-8 #### DEANGELO CARDOZO ([id number]) [facility] ([facility]) [address] [place] [address] 52710 Basophils/100 WBC (Bld) 1.4 % Normal 0.0-2.0 [facility] Comment on above: Performed By: #### 5 7021-8 #### DEANGELO CARDOZO ([id number]) [facility] ([facility]) [address] [place] [address] 41352 Eosinophils (Bld) [#/Vol] 0.26 x10*3/uL Normal 0.00-0.70 [facility] Comment on above: Performed By: #### 5 7021-8 #### DEANGELO CARDOZO ([id number]) [facility] ([facility]) [address] [place] [address] 44718 Eosinophils/100 WBC (Bld) 5.2 % Normal 0.0-6.0 [facility] Comment on above: Performed By: #### 5 7021-8 #### DEANGELO CARDOZO ([id number]) [facility] ([facility]) [address] [place] [address] 41867 Erythrocyte distribution width (RBC) [Ratio] 13.3 % Normal 11.5-14.5 [facility] Comment on above: Performed By: #### 5 7021-8 #### DEANGELO CARDOZO ([id number]) [facility] ([facility]) [address] [place], [place] [address] Hematocrit (Bld) [Volume fraction] 38.2 % Normal 36.0-46.0 [facility] Comment on above: Performed By: #### 5 7021-8 #### DEANGELO CARDOZO ([id number]) [facility] ([facility]) [address] [place] [address] 88733 Hemoglobin (Bld) [Mass/Vol] 12.5 g/dL Normal 12.0-16.0 [facility] Comment on above: Performed By: #### 5 7021-8 #### DEANGELO CARDOZO ([id number]) [facility] ([facility]) [address] [place] [address] 95972 Immature granulocytes (Bld) [#/Vol] 0.02 x10*3/uL Normal 0.00-0.70 [facility] Comment on above: Performed By: #### 5 7021-8 #### DEANGELO CARDOZO ([id number]) [facility] ([facility]) [address] [place] [address] 85425 Immature granulocytes/100 WBC (Bld) 0.4 % Normal 0.0-0.9 [facility] Comment on above: Result Comment: Jannie ture Granulocyte Count (IG) includes promyelocytes, myelocytes and metamyelocytes but does not include bands. Percent differential counts (%) should be interpreted in the context of the absolute cell counts (cells/UL). Performed By: #### 5 7021-8 #### DEANGELO CARDOZO ([id number]) [facility] ([facility]) [address] [place] [address] 44608 Lymphocytes (Bld) [#/Vol] 1.87 x10*3/uL Normal 1.20-4.80 [facility] Comment on above: Performed By: #### 5 7021-8 #### DEANGELO CARDOZO ([id number]) [facility] ([facility]) [address] [place] [address] 66848 Lymphocytes/100 WBC (Bld) 37.3 % Normal 13.0-44.0 [facility] Comment on above: Performed By: #### 5 7021-8 #### DEANGELO CARDOZO ([id number]) [facility] ([facility]) [address] [place] [address] 08272 MCH (RBC) [Entitic mass] 26.9 pg Normal 26.0-34.0 [facility] Comment on above: Performed By: #### 5 7021-8 #### DEANGELO CARDOZO ([id number]) [facility] ([facility]) [address] [place] [address] 99226 MCHC (RBC) [Mass/Vol] 32.7 g/dL Normal 32.0-36.0 [facility] Comment on above: Performed By: #### 5 7021-8 #### DEANGELO CARDOZO ([id number]) [facility] ([facility]) [address] [place] [address] 58800 MCV (RBC) [Entitic vol] 82 fL Normal 80-100 [facility] Comment on above: Performed By: #### 5 7021-8 #### DEANGELO CARDOZO ([id number]) [facility] ([facility]) [address] [place] [address] 82876 Monocytes (Bld) [#/Vol] 0.34 x10*3/uL Normal 0.10-1.00 [facility] Comment on above: Performed By: #### 5 7021-8 #### DEANGELO CARDOZO ([id number]) [facility] ([facility]) [address] [place] [address] 77257 Monocytes/100 WBC (Bld) 6.8 % Normal 2.0-10.0 [facility] Comment on above: Performed By: #### 5 7021-8 #### DEANGELO CARDOZO ([id number]) [facility] ([facility]) [address] [place] [address] 80707 Neutrophils (Bld) [#/Vol] 2.46 x10*3/uL Normal 1.20-7.70 [facility] Comment on above: Result Comment: Perc ent differential counts (%) should be interpreted in the context of the absolute cell counts (cells/uL). Performed By: #### 5 7021-8 #### DEANGELO CARDOZO ([id number]) [facility] ([facility]) [address] [place] [address] 84449 Neutrophils/100 WBC (Bld) 48.9 % Normal 40.0-80.0 [facility] Comment on above: Performed By: #### 5 7021-8 #### DEANGELO CARDOZO ([id number]) [facility] ([facility]) [address] [place] [address] 93695 Nucleated RBC/100 WBC (Bld) [Ratio] 0.0 /100 WBCs Normal 0.0-0.0 [facility] Comment on above: Performed By: #### 5 7021-8 #### DEANGELO CARDOZO ([id number]) [facility] ([facility]) [address] [place] [address] 01559 Platelets (Bld) [#/Vol] 271 x10*3/uL Normal 150-450 [facility] Comment on above: Performed By: #### 5 7021-8 #### DEANGELO CARDOZO ([id number]) [facility] ([facility]) [address] [place] [address] 44484 RBC (Bld) [#/Vol] 4.64 x10*6/uL Normal 4.00-5.20 [facility] Comment on above: Performed By: #### 5 7021-8 #### DEANGELO CARDOZO ([id number]) [facility] ([facility]) [address] [place] [address] 43480 WBC (Bld) [#/Vol] 5.0 x10*3/uL Normal 4.4-11.3 [facility] Comment on above: Performed By: #### 5 7021-8 #### DEANGELO CARDOZO ([id number]) [facility] ([facility]) [address] [place] [address] 80498 Cobalaminson 02-26-2024 Cobalamin (Vitamin B12) [Mass/Vol] 407 pg/mL Normal 211-911 [facility] Comment on above: Performed By: #### 2 132-9 #### DEANGELO CARDOZO ([id number]) [facility] ([facility]) [address] [place], [place] [phone] Comprehensive metabolic 2000 panelon 02-26-2024 Albumin BCP dye [Mass/Vol] 4.6 g/dL Normal 3.4-5.0 [facility] Comment on above: Performed By: #### 2 4323-8 #### DEANGELO CARDOZO ([id number]) [facility] ([facility]) [address] [place] [address] 06439 ALP [Catalytic activity/Vol] 82 U/L Normal 33-110 [facility] Comment on above: Performed By: #### 2 4323-8 #### DEANGELO CARDOZO ([id number]) [facility] ([facility]) [address] [place] [address] 40605 ALT With P-5'-P [Catalytic activity/Vol] 18 U/L Normal 7-45 [facility] Comment on above: Result Comment: Martha ents treated with Sulfasalazine may generate falsely decreased results for ALT. Performed By: #### 2 4323-8 #### DEANGELO CARDOZO ([id number]) [facility] ([facility]) [address] [place] [address] 35321 Anion gap [Moles/Vol] 14 mmol/L Normal 10-20 [facility] Comment on above: Performed By: #### 2 432-8 #### DEANGELO CARDOZO ([id number]) [facility] ([facility]) [address] [place] [address] AST With P-5'-P [Catalytic activity/Vol] 17 U/L Normal 9-39 [facility] Comment on above: Performed By: #### 2 432-8 #### DEANGELO CARDOZO ([id number]) [facility] ([facility]) [address] [place] [address] 89831 Bilirubin [Mass/Vol] 0.6 mg/dL Normal 0.0-1.2 [facility] Comment on above: Performed By: #### 2 4322-8 #### DEANGELO CARDOZO ([id number]) [facility] ([facility]) [address] [place] [address] 59100 Calcium [Mass/Vol] 8.9 mg/dL Normal 8.6-10.3 [facility] Comment on above: Performed By: #### 2 4322-8 #### DEANGELO CARDOZO ([id number]) [facility] ([facility]) [address] [place] [address] Chloride [Moles/Vol] 106 mmol/L Normal 98-107 [facility] Comment on above: Performed By: #### 2 432-8 #### DEANGELO CARDOZO ([id number]) [facility] ([facility]) [address] [place] [address] CO2 [Moles/Vol] 23 mmol/L Normal 21-32 [facility] Comment on above: Performed By: #### 2 432-8 #### DEANGELO CARDOZO ([id number]) [facility] ([facility]) [address] [place] [address] 50250 Creatinine [Mass/Vol] 0.91 mg/dL Normal 0.50-1.05 [facility] Comment on above: Performed By: #### 2 432-8 #### DEANGELO CARDOZO ([id number]) [facility] ([facility]) [address] [place] [address] GFR/1.73 sq M.predicted MDRD (S/P/Bld) [Vol rate/Area] mL/min/{1.73_m2} Normal >60 [facility] Comment on above: Result Comment: Calc ulations of estimated GFR are performed using the 2020 CKD-EPI Study Refit equation without the race variable for the IDMS-Traceable creatinine methods. https://jasn.asnjournals.org/content//ASN.92125 19677 Performed By: #### 2 4323-8 #### DEANGELO CARDOZO ([id number]) [facility] ([facility]) [address] [place] [address] 25332 Glucose [Mass/Vol] 87 mg/dL Normal 74-99 [facility] Comment on above: Performed By: #### 2 4323-8 #### DEANGELO CARDOZO ([id number]) [facility] ([facility]) [address] [place] [address] 43242 Potassium [Moles/Vol] 3.9 mmol/L Normal 3.5-5.3 [facility] Comment on above: Performed By: #### 2 4323-8 #### DEANGELO CARDOZO ([id number]) [facility] ([facility]) [address] [place] [address] 38423 Protein [Mass/Vol] 7.6 g/dL Normal 6.4-8.2 [facility] Comment on above: Performed By: #### 2 4323-8 #### DEANGELO CARDOOZ ([id number]) [facility] ([facility]) [address] [place] [address] 75103 Sodium [Moles/Vol] 139 mmol/L Normal 136-145 [facility] Comment on above: Performed By: #### 2 4323-8 #### DEANGELO CARDOZO ([id number]) [facility] ([facility]) [address] [place] [address] 98914 Urea nitrogen [Mass/Vol] 18 mg/dL Normal 6-23 [facility] Comment on above: Performed By: #### 2 4323-8 #### DEANGELO CARDOZO ([id number]) [facility] ([facility]) [address] [place] [address] 45292 Iron and Iron binding capaci ty panelon 02-26-2024 Iron [Mass/Vol] 110 ug/dL Normal 35-150 [facility] Comment on above: Performed By: #### 5 0190-8 #### DEANGELO CARDOZO ([id number]) [facility] ([facility]) [address] [place] [address] 06182 Iron binding capacity [Mass/Vol] 397 ug/dL Normal 240-445 [facility] Comment on above: Performed By: #### 5 0190-8 #### DEANGELO CARDOZO ([id number]) [facility] ([facility]) [address] [place] [address] 08258 Iron binding capacity.unsaturated [Mass/Vol] 287 ug/dL Normal 110-370 [facility] Comment on above: Performed By: #### 5 0190-8 #### DEANGELO CARDOZO ([id number]) [facility] ([facility]) [address] [place] [address] 17736 Iron saturation [Mass fraction] 28 % Normal 25-45 [facility] Comment on above: Performed By: #### 5 0190-8 #### DEANGELO CARDOZO ([id number]) [facility] ([facility]) [address] [place] [address] Thyrotropinon 02-26-2024 TSH Qn 1.82 m[IU]/L Normal 0.44-3.98 [facility] Comment on above: Order Comment: TSH t esting is performed using different testing methodology at [facility] than at other [facility]. Direct result comparisons should only be made within the same method. Performed By: #### 3 016-3 #### DEANGELO CARDOZO ([id number]) [facility] ([facility]) [address] [place] [id number] Thyroxine.freeon 02-26-2024 Free T4 [Mass/Vol] 0.62 ng/dL Normal 0.61-1.12 [facility] Comment on above: Order Comment: Thyro xine Free testing is performed using different testing methodology at [facility] than at other [facility]. Direct [...] By: #### 3 024-7 #### DEANGELO CARDOZO ([id number]) [facility] ([facility]) [address] [place] [address] Triiodothyronine.free 02-11 Free T3 [Mass/Vol] 3.1 pg/mL Normal 2.3-4.2 [facility] Comment on above: Performed By: #### 3 051-0 #### POONAM Pires ([id number]) [facility] ([facility]) [id number] [place] [id number] Cervical or vagninal specime n microscopic examination by cytology stain (reported asOrdered By: Esme Baker on 01-21-2024 Cytology report Cyto stain Doc (Cvx/Vag) Comment . [facility] Comment on above: The Pap smear is a s creening test designed to aid in thedetection of premalignant and malignant conditions of theuterine cervix. It is not a diagnostic procedure andshould not be used as the sole means of detecting cervicalcancer. Both false-positive and false-negative reports dooccur. Laboratory - CytologyOrdered By: Esme Baker on 01-21-2024 Vacuum Forming Machine Operator Cyto stain Nom (Cvx/Vag) [ID] Comment . [facility] Comment on above: Sha Martinez Cytot echnologist (ASCP) Laboratory - Miscellaneous t estsOrdered By: Esme Baker on 01-21-2024 Service comment (Unsp spec) [Interp] . . [facility] No Panel InformationOrdered By: Esme Baker on 01-21-2024 Human Papillomavirus Screen Comment . [facility] Comment on above: The HPV DNA reflex c dolly were not met with this specimenresult therefore, no HPV testing was performed.Performed at: [address] [place] [id number] Director: Kenyetta Ibarra MD, Phone: [phone] Thin prep Papanicolaou smear with manual screeningOrdered By: Esme Baker on 01-21-2024 Thin prep Papanicolaou smear with manual screening Comment . [facility] Comment on above: NEGATIVE FOR INTRAEP ITHELIAL LESION OR MALIGNANCY. This liquid based Th inPrep(R) pap test was screened withthe use of an image guided system. Basophil percentageOrdered B y: Brandi Pacheco on 12-18-2023 Hemoglobin (Bld) [Mass/Vol] 10.4 g/dL 12.0-15.0 [facility] WBC (Bld) [#/Vol] 8.0 10*3/uL 4.4-11.0 [facility] Determination of erythrocyte mean corpuscular volume (MCV)Ordered By: Brandi Pacheco on 12-18-2023 MCV (RBC) [Entitic vol] 82.0 fL 81-99 [facility] Erythrocyte distribution wid th ratioOrdered By: Brandi Pacheco on 12-18-2023 Erythrocyte distribution width (RBC) [Ratio] 14.5 % 11.6-14.6 [facility] Erythrocyte distribution wid th standard deviationOrdered By: Brandigraeme Pacheco on 12-18-2023 Erythrocyte distribution width (RBC) [Entitic vol] 43.0 fL 35.1-43.9 [facility] Hematocrit Auto (Bld) [Volum e fraction]Ordered By: Brandi Pacheco on 12-18-2023 Hematocrit (Bld) [Volume fraction] 32.3 % 37-47 [facility] Laboratory - Chemistry and C hemistry - challengeOrdered By: Brandi Pacheco on 12-18-2023 ALT [Catalytic activity/Vol] 21 U/L 13-56 [facility] Laboratory - Hematology and Cell countsOrdered By: Brandi Pacheco on 12-18-2023 MCH (RBC) [Entitic mass] 26.4 pg 27.0-32.0 [facility] MCHC (RBC) [Mass/Vol] 32.2 g/dL 32-36 [facility] Platelet mean volume (Bld) [Entitic vol] 8.5 fL 6.2-12.0 [facility] Platelets (Bld) [#/Vol] 321 10*3/uL 150-450 [facility] No Panel InformationOrdered By: Brandi Pacheco on 12-18-2023 Estimated Creatinine Clearance Calc 129.92 ml/min [facility] Estimated GFR (MDRD) Amer 137 mL/min >60 [facility] Comment on above: GFR Calc Estimated GFR (MDRD) Non-Af Amer 113 mL/min >60 [facility] Comment on above: Non- GFR Calc RBC Auto (Bld) [#/Vol]Ordere d By: Brandi Pacheco on 12-18-2023 RBC (Bld) [#/Vol] 3.94 10*6/uL 4.2-5.4 [facility] Serum or plasma creatinine m easurement (mass/volume)Ordered By: Brandi Pacheco on 12-18-2023 Creatinine [Mass/Vol] 0.68 mg/dL 0.55-1.02 [facility] Comment on above: The validity of the calculated GFR & GFRAA in patients over 70 years has not been determined. Clinical correlation is essential. Serum or plasma uric acid me asurement (mass/volume)Ordered By: Brandi Pacheco on 12-18-2023 Urate [Mass/Vol] 5.5 mg/dL 2.6-6.0 [facility] Comment on above: The drugs N-Acetylcy steine and Metamizole may falsely depress this assay. Thin prep Papanicolaou smear with manual screeningOrdered By: Brandi Pacheco on 12-18-2023 Thin prep Papanicolaou smear with manual screening 18 U/L 15-37 [facility] Thin prep Papanicolaou smear with manual screeningOrdered By: Esme Baker on 12-14-2023 Thin prep Papanicolaou smear with manual screening 94 mg/dL 74-106 [facility] Comment on above: MANAGEMENT OF PATIEN T CARE PER NURSING PROTOCOL Absolute lymphocyte countOrd ered By: Esme Baker on 12-12-2023 Lymphocytes Auto (Unsp spec) [#/Vol] 1.80 10*3/uL 0.83-4.51 [facility] Automated lymphocyte count a s percentage of total leukocytesOrdered By: Esme Baker on 12-12-2023 Lymphocytes/100 WBC Auto (Unsp spec) 19.4 % 19-41 [facility] Basophil percentageOrdered B y: Esme Baker on 12-12-2023 Basophils/100 WBC (Bld) 0.5 % 0-1 [facility] Eosinophils/100 WBC (Bld) 2.2 % 0-5 [facility] Hemoglobin (Bld) [Mass/Vol] 10.6 g/dL 12.0-15.0 [facility] Monocytes/100 WBC (Bld) 6.2 % 0-10 [facility] Neutrophils (Bld) [#/Vol] 6.5 10*3/uL 2.0-7.7 [facility] Neutrophils/100 WBC (Bld) 69.9 % 47-70 [facility] WBC (Bld) [#/Vol] 9.3 10*3/uL 4.4-11.0 [facility] Determination of erythrocyte mean corpuscular volume (MCV)Ordered By: Esme Baker on 12-12-2023 MCV (RBC) [Entitic vol] 82.0 fL 81-99 [facility] Erythrocyte distribution wid th ratioOrdered By: Esme Baker on 12-12-2023 Erythrocyte distribution width (RBC) [Ratio] 14.6 % 11.6-14.6 [facility] Erythrocyte distribution wid th standard deviationOrdered By: Esme Baker on 12-12-2023 Erythrocyte distribution width (RBC) [Entitic vol] 43.8 fL 35.1-43.9 [facility] Hematocrit Auto (Bld) [Volum e fraction]Ordered By: Esme Baker on 12-12-2023 Hematocrit (Bld) [Volume fraction] 32.4 % 37-47 [facility] Immature granulocytes/100 WB C Auto (Bld)Ordered By: Esme Baker on 12-12-2023 Immature granulocytes/100 WBC (Bld) 1.800 % 0.0-0.9 [facility] Comment on above: IG% - Immature Granu locytes (promyelocytes, myelocytes and metamyelocytes) > 1% indicates that a LEFT SHIFT is Present. Laboratory - Hematology and Cell countsOrdered By: Esme Baker on 12-12-2023 MCH (RBC) [Entitic mass] 26.8 pg 27.0-32.0 [facility] MCHC (RBC) [Mass/Vol] 32.7 g/dL 32-36 [facility] Nucleated RBC/100 WBC (Bld) [Ratio] 0 % 0-5 [facility] Platelet mean volume (Bld) [Entitic vol] 9.8 fL 6.2-12.0 [facility] Platelets (Bld) [#/Vol] 251 10*3/uL 150-450 [facility] RBC Auto (Bld) [#/Vol]Ordere d By: Esme Baker on 12-12-2023 RBC (Bld) [#/Vol] 3.95 10*6/uL 4.2-5.4 [facility] Serum Treponema species anti body detectionOrdered By: Esme Baker on 12-12-2023 Treponema sp Ab Ql (S) Non-Reactive [facility] No Panel InformationOrdered By: Esme Baker on 12-05-2023 Group B Streptococcus Culture Group B Beta Streptococcus is not isolated. [facility] Group B Streptococcus Culture Group B Beta Streptococcus is not isolated. [facility] Absolute lymphocyte countOrd ered By: Brandi Pacheco on 11-27-2023 Lymphocytes Auto (Unsp spec) [#/Vol] 1.66 10*3/uL 0.83-4.51 [facility] Activated partial thrombopla stin time (aPTT) in platelet poor plasma by coagulation aOrdered By: Brandi Pacheco on 11-27-2023 aPTT Coag (PPP) [Time] 28.2 s 24.1-36.2 [facility] Automated lymphocyte count a s percentage of total leukocytesOrdered By: Brandi Pacheco on 11-27-2023 Lymphocytes/100 WBC Auto (Unsp spec) 18.6 % 19-41 [facility] Basophil percentageOrdered B y: Brandi Pacheco on 11-27-2023 Basophils/100 WBC (Bld) 0.4 % 0-1 [facility] Eosinophils/100 WBC (Bld) 2.6 % 0-5 [facility] Hemoglobin (Bld) [Mass/Vol] 10.1 g/dL 12.0-15.0 [facility] Monocytes/100 WBC (Bld) 7.1 % 0-10 [facility] Neutrophils (Bld) [#/Vol] 6.3 10*3/uL 2.0-7.7 [facility] Neutrophils/100 WBC (Bld) 70.1 % 47-70 [facility] WBC (Bld) [#/Vol] 8.9 10*3/uL 4.4-11.0 [facility] Determination of erythrocyte mean corpuscular volume (MCV)Ordered By: Brandi Pacheco on 11-27-2023 MCV (RBC) [Entitic vol] 82.8 fL 81-99 [facility] Erythrocyte distribution wid th ratioOrdered By: Brandi Pacheco on 11-27-2023 Erythrocyte distribution width (RBC) [Ratio] 14.6 % 11.6-14.6 [facility] Erythrocyte distribution wid th standard deviationOrdered By: Brandi Pacheco on 11-27-2023 Erythrocyte distribution width (RBC) [Entitic vol] 43.1 fL 35.1-43.9 [facility] Hematocrit Auto (Bld) [Volum e fraction]Ordered By: Brandi Pacheco on 11-27-2023 Hematocrit (Bld) [Volume fraction] 30.3 % 37-47 [facility] Immature granulocytes/100 WB C Auto (Bld)Ordered By: Brandi Pacheco on 11-27-2023 Immature granulocytes/100 WBC (Bld) 1.200 % 0.0-0.9 [facility] Comment on above: IG% - Immature Granu locytes (promyelocytes, myelocytes and metamyelocytes) > 1% indicates that a LEFT SHIFT is Present. Laboratory - CoagulationOrde red By: Brandi Pacheco on 11-27-2023 INR Coag (Bld) [Relative time] 1.0 {INR} [facility] PT Coag (PPP) [Time] 13.4 s 11.7-14.9 [facility] Laboratory - Hematology and Cell countsOrdered By: Brandi Pacheco on 11-27-2023 MCH (RBC) [Entitic mass] 27.6 pg 27.0-32.0 [facility] MCHC (RBC) [Mass/Vol] 33.3 g/dL 32-36 [facility] Nucleated RBC/100 WBC (Bld) [Ratio] 0 % 0-5 [facility] Platelet mean volume (Bld) [Entitic vol] 9.9 fL 6.2-12.0 [facility] Platelets (Bld) [#/Vol] 276 10*3/uL 150-450 [facility] No Panel InformationOrdered By: Brandi Pacheco on 11-27-2023 Fibrinogen 545 mg/dl 203-444 [facility] RBC Auto (Bld) [#/Vol]Ordere d By: Brandi Pacheco on 11-27-2023 RBC (Bld) [#/Vol] 3.66 10*6/uL 4.2-5.4 [facility] Laboratory - Chemistry and C hemistry - challengeon 11-26-2023 Glucose Ql (U) Negative [facility] Laboratory - Urinalysison Protein Ql (U) Negative [facility] Laboratory - Chemistry and C hemistry - challengeon 11-14-2023 Glucose Ql (U) Negative [facility] Laboratory - Urinalysison Protein Ql (U) Negative [facility] Laboratory - Chemistry and C hemistry - challengeon 10-30-2023 Glucose Ql (U) Negative [facility] Laboratory - Urinalysison Protein Ql (U) Negative [facility] Quantitative serum or plasma 3 hour gestational glucose tolerance panelOrdered By: Marybel Torres on 10-23-2023 Glucose tolerance 3 hours gestational panel See comment [facility] Comment on above: FASTING 105 Col: [...] Auto (Unsp spec) [#/Vol] 1.11 10*3/uL 0.83-4.51 [facility] Basophil percentageOrdered B y: Marybel Torres on 10-17-2023 Basophils/100 WBC (Bld) 0.8 % 0-1 [facility] Eosinophils/100 WBC (Bld) 2.9 % 0-5 [facility] Neutrophils (Bld) [#/Vol] 5.7 10*3/uL 2.0-7.7 [facility] Neutrophils/100 WBC (Bld) 72.9 % 47-70 [facility] WBC (Bld) [#/Vol] 7.9 10*3/uL 4.4-11.0 [facility] Blood erythrocytes count (nu mber/volume)Ordered By: Marybel Torres on 10-17-2023 RBC (Bld) [#/Vol] 3.36 10*6/uL 4.2-5.4 [facility] Blood hemoglobin measurement (mass/volume)Ordered By: Marybel Torres on 10-17-2023 Hemoglobin (Bld) [Mass/Vol] 9.4 g/dL 12.0-15.0 [facility] Blood lymphocytes/100 leukoc ytesOrdered By: Marybel Torres on 10-17-2023 Lymphocytes/100 WBC (Bld) 14.1 % 19-41 [facility] Blood monocytes/100 leukocyt esOrdered By: Marybel Torres on 10-17-2023 Monocytes/100 WBC (Bld) 5.7 % 0-10 [facility] Blood platelet mean volumeOr dered By: Marybel Torres on 10-17-2023 Platelet mean volume (Bld) [Entitic vol] 9.0 fL 6.2-12.0 [facility] Determination of erythrocyte mean corpuscular volume (MCV)Ordered By: Marybel Torres on 10-17-2023 MCV (RBC) [Entitic vol] 85.1 fL 81-99 [facility] Gestational diabetes screen 1-hour screen with 50g oral glucose loadOrdered By: Marybel Torres on 10-17-2023 Glucose 1 Hr post 50 g glucose PO [Mass/Vol] 141 mg/dL 70-140 [facility] HIV 1 and HIV-2 antibody ass ay with HIV-1 p24 antigen detectionOrdered By: Marybel Torres on 10-17-2023 HIV 1+2 Ab+HIV1 p24 Ag IA Ql Non-Reactive Nonreactive [facility] Hematocrit Auto (Bld) [Volum e fraction]Ordered By: Marybel Torres on 10-17-2023 Hematocrit (Bld) [Volume fraction] 28.6 % 37-47 [facility] Laboratory - Chemistry and C hemistry - challengeon 10-17-2023 Glucose Ql (U) Negative [facility] Laboratory - Chemistry and C hemistry - challengeOrdered By: Anson Richter on 10-17-2023 Free T4 [Mass/Vol] 0.87 ng/dL 0.76-1.46 [facility] Laboratory - Hematology and Cell countsOrdered By: Marybel Torres on 10-17-2023 Erythrocyte distribution width (RBC) [Entitic vol] 37.2 fL 35.1-43.9 [facility] Erythrocyte distribution width (RBC) [Ratio] 12.1 % 11.6-14.6 [facility] Immature granulocytes/100 WBC (Bld) 3.600 % 0.0-0.9 [facility] Comment on above: IG% - Immature Granu locytes (promyelocytes, myelocytes and metamyelocytes) > 1% indicates that a LEFT SHIFT is Present. MCH (RBC) [Entitic mass] 28.0 pg 27.0-32.0 [facility] Nucleated RBC/100 WBC (Bld) [Ratio] 0 % 0-5 [facility] Laboratory - Urinalysison Protein Ql (U) Negative [facility] MCHC Auto (RBC) [Mass/Vol]Or dered By: Marybel Torres on 10-17-2023 MCHC (RBC) [Mass/Vol] 32.9 g/dL 32-36 [facility] No Panel InformationOrdered By: Anson Richter on 10-17-2023 Thyroid Stimulating Hormone (TSH) 1.99 uIU/mL 0.358-3.74 [facility] Platelets bldOrdered By: Gibson Torres on 10-17-2023 Platelets (Bld) [#/Vol] 279 10*3/uL 150-450 [facility] Serum Treponema species anti body detectionOrdered By: Marybel Torres on 10-17-2023 Treponema sp Ab Ql (S) Non-Reactive [facility] Absolute lymphocyte countOrd ered By: Fermín Rodrigues on 01-03-2024 Lymphocytes Auto (Unsp spec) [#/Vol] 1.73 10*3/uL 0.83-4.51 [facility] Basophil percentageOrdered B y: Fermín Rodrigues on 10-16-2023 Basophils/100 WBC (Bld) 0.6 % 0-1 [facility] Eosinophils/100 WBC (Bld) 2.2 % 0-5 [facility] Neutrophils (Bld) [#/Vol] 7.5 10*3/uL 2.0-7.7 [facility] Neutrophils/100 WBC (Bld) 72.3 % 47-70 [facility] WBC (Bld) [#/Vol] 10.4 10*3/uL 4.4-11.0 [facility] Basophil percentageOrdered B y: ED PROVIDER on 10-16-2023 Basophil percentage 0 SEEN /hpf 0-5 [facility] Bilirubin Test strip Ql (U)O rdered By: ED PROVIDER on 10-16-2023 Bilirubin Ql (U) Negative Negative [facility] Blood erythrocytes count (nu mber/volume)Ordered By: Fermín Rodrigues on 10-16-2023 RBC (Bld) [#/Vol] 3.53 10*6/uL 4.2-5.4 [facility] Blood hemoglobin measurement (mass/volume)Ordered By: Fermín Rodrigues on 10-16-2023 Hemoglobin (Bld) [Mass/Vol] 9.9 g/dL 12.0-15.0 [facility] Blood lymphocytes/100 leukoc ytesOrdered By: Fermín Rodrigues on 10-16-2023 Lymphocytes/100 WBC (Bld) 16.6 % 19-41 [facility] Blood monocytes/100 leukocyt esOrdered By: Fermín Rodrigues on 10-16-2023 Monocytes/100 WBC (Bld) 6.4 % 0-10 [facility] Blood platelet mean volumeOr dered By: Fermín Rodrigues on 10-16-2023 Platelet mean volume (Bld) [Entitic vol] 9.5 fL 6.2-12.0 [facility] Determination of erythrocyte mean corpuscular volume (MCV)Ordered By: Fermín Rodrigues on 10-16-2023 MCV (RBC) [Entitic vol] 83.3 fL 81-99 [facility] Hematocrit Auto (Bld) [Volum e fraction]Ordered By: Fermín Rodrigues on 10-16-2023 Hematocrit (Bld) [Volume fraction] 29.4 % 37-47 [facility] Ketones Test strip Ql (U)Ord ered By: ED PROVIDER on 10-16-2023 Ketones Ql (U) 15 mg/dl Negative [facility] Laboratory - Hematology and Cell countsOrdered By: Fermín Rodrigues on 10-16-2023 Erythrocyte distribution width (RBC) [Entitic vol] 36.4 fL 35.1-43.9 [facility] Erythrocyte distribution width (RBC) [Ratio] 12.0 % 11.6-14.6 [facility] Immature granulocytes/100 WBC (Bld) 1.900 % 0.0-0.9 [facility] Comment on above: IG% - Immature Granu locytes (promyelocytes, myelocytes and metamyelocytes) > 1% indicates that a LEFT SHIFT is Present. MCH (RBC) [Entitic mass] 28.0 pg 27.0-32.0 [facility] Nucleated RBC/100 WBC (Bld) [Ratio] 0 % 0-5 [facility] MCHC Auto (RBC) [Mass/Vol]Or dered By: Fermín Rdorigues on 10-16-2023 MCHC (RBC) [Mass/Vol] 33.7 g/dL 32-36 [facility] Mucus LM Ql (Urine sed)Order ed By: ED PROVIDER on 10-16-2023 Mucus Ql (Urine sed) 0 SEEN /hpf [facility] Nitrite Test strip Ql (U)Ord ered By: ED PROVIDER on 10-16-2023 Nitrite Ql (U) Negative Negative [facility] Platelets bldOrdered By: Fermín Rodrigues on 10-16-2023 Platelets (Bld) [#/Vol] 294 10*3/uL 150-450 [facility] Protein Test strip Ql (U)Ord ered By: ED PROVIDER on 10-16-2023 Protein Ql (U) Negative Negative [facility] Squamous epithelial cells de tection in urine sediment by light microscopyOrdered By: ED PROVIDER on 10-16-2023 Epithelial cells.squamous LM Ql (Urine sed) 0-5 SEEN /hpf 5-10 [facility] Urine blood detectionOrdered By: ED PROVIDER on 10-16-2023 RBC Ql (U) Negative Negative [facility] RBC Ql (U) 0 SEEN /hpf 0-5 [facility] Urine clarityOrdered By: ED PROVIDER on 10-16-2023 Clarity (U) Clear Clear [facility] Urine color determinationOrd ered By: ED PROVIDER on 10-16-2023 Color (U) Yellow Yellow [facility] Urine glucose detectionOrder ed By: ED PROVIDER on 10-16-2023 Glucose Ql (U) Normal mg/dl Normal [facility] Urine leukocyte esterase det ection by dipstickOrdered By: ED PROVIDER on 10-16-2023 Leukocyte esterase Test strip Ql (U) Negative Negative [facility] Urine pHOrdered By: ED PROVI ADRIAN on 10-16-2023 pH (U) 6.5 [pH] 5.0 - 8.0 [facility] Urine sediment bacteria coun t by microscopy (number/high power field)Ordered By: ED PROVIDER on 10-16-2023 Bacteria LM.HPF (Urine sed) [#/Area] 0 /[HPF] None Seen [facility] Urine specific gravity measu rementOrdered By: ED PROVIDER on 10-16-2023 Specific gravity (U) [Rel density] 1.010 1.002-1.030 [facility] Urobilinogen Auto test strip Ql (U)Ordered By: ED PROVIDER on 10-16-2023 Urobilinogen Ql (U) Normal mg/dl Normal [facility] Iron measurement (mass/mass) Ordered By: Btehany Cedillo on 10-03-2023 Iron (Unsp spec) [Mass/Mass] 31 ug/dL 50-170 [facility] No Panel InformationOrdered By: Bethany Cedillo on 10-03-2023 Total Iron Binding Capacity 526 ug/dL 250-450 [facility] Serum or plasma ferritin brenda surement (mass/volume)Ordered By: Bethany Cedillo on 10-03-2023 Ferritin [Mass/Vol] 4 ng/mL 8-252 [facility] Serum or plasma iron saturat ion measurement (mass fraction)Ordered By: Bethany Cedillo on 10-03-2023 Iron saturation [Mass fraction] 5.9 % 15.0-55.0 [facility] Absolute lymphocyte countOrd ered By: Bethany Cedillo on 09-16-2023 Lymphocytes Auto (Unsp spec) [#/Vol] 1.63 10*3/uL 0.83-4.51 [facility] Basophil percentageOrdered B y: Bethany Cedillo on 09-16-2023 Basophils/100 WBC (Bld) 0.6 % 0-1 [facility] Bilirubin [Mass/Vol] 0.20 mg/dL 0.20-1.00 [facility] Comment on above: For patients on eltr ombopag therapy, use of Dimension [place] TBIL is not recommended. Chloride [Moles/Vol] 105 mmol/L 98-107 [facility] Eosinophils/100 WBC (Bld) 2.2 % 0-5 [facility] Glucose [Mass/Vol] 117 mg/dL 74-106 [facility] Comment on above: Fasting Glucose resu lt from 100 to 125 mg/dL suggests IMPAIRED HOMEOSTASIS per A.D.A. criteria. Neutrophils (Bld) [#/Vol] 8.5 10*3/uL 2.0-7.7 [facility] Neutrophils/100 WBC (Bld) 74.4 % 47-70 [facility] Potassium [Moles/Vol] 3.6 mmol/L 3.5-5.1 [facility] Protein [Mass/Vol] 6.9 g/dL 6.4-8.2 [facility] Sodium [Moles/Vol] 136 mmol/L 136-145 [facility] WBC (Bld) [#/Vol] 11.4 10*3/uL 4.4-11.0 [facility] Blood erythrocytes count (nu mber/volume)Ordered By: Bethany Cedillo on 09-16-2023 RBC (Bld) [#/Vol] 3.56 10*6/uL 4.2-5.4 [facility] Blood hemoglobin measurement (mass/volume)Ordered By: Bethany Cedillo on 09-16-2023 Hemoglobin (Bld) [Mass/Vol] 10.3 g/dL 12.0-15.0 [facility] Blood lymphocytes/100 leukoc ytesOrdered By: Bethany Cedillo on 09-16-2023 Lymphocytes/100 WBC (Bld) 14.3 % 19-41 [facility] Blood monocytes/100 leukocyt esOrdered By: Bethany Cedillo on 09-16-2023 Monocytes/100 WBC (Bld) 6.7 % 0-10 [facility] Blood platelet mean volumeOr dered By: Bethany Cedillo on 09-16-2023 Platelet mean volume (Bld) [Entitic vol] 9.2 fL 6.2-12.0 [facility] Determination of erythrocyte mean corpuscular volume (MCV)Ordered By: Bethany Cedillo on 09-16-2023 MCV (RBC) [Entitic vol] 88.2 fL 81-99 [facility] Hematocrit Auto (Bld) [Volum e fraction]Ordered By: Bethany Cedillo on 09-16-2023 Hematocrit (Bld) [Volume fraction] 31.4 % 37-47 [facility] Laboratory - Chemistry and C hemistry - challengeOrdered By: Bethany Cedillo on 09-16-2023 ALP [Catalytic activity/Vol] 76 U/L 45-117 [facility] ALT [Catalytic activity/Vol] 10 U/L 13-56 [facility] CO2 [Moles/Vol] 24.0 mmol/L 21.0-32.0 [facility] Globulin (S) [Mass/Vol] 4.2 g/dL 2.2-4.2 [facility] Urea nitrogen/Creatinine [Mass ratio] 16.6 mg/mg 10-20 [facility] Laboratory - Chemistry and C hemistry - challengeon 09-16-2023 Glucose Ql (U) Negative [facility] Laboratory - Hematology and Cell countsOrdered By: Bethany Cedillo on 09-16-2023 Erythrocyte distribution width (RBC) [Entitic vol] 39.0 fL 35.1-43.9 [facility] Erythrocyte distribution width (RBC) [Ratio] 12.1 % 11.6-14.6 [facility] Immature granulocytes/100 WBC (Bld) 1.800 % 0.0-0.9 [facility] Comment on above: IG% - Immature Granu locytes (promyelocytes, myelocytes and metamyelocytes) > 1% indicates that a LEFT SHIFT is Present. MCH (RBC) [Entitic mass] 28.9 pg 27.0-32.0 [facility] Nucleated RBC/100 WBC (Bld) [Ratio] 0 % 0-5 [facility] Laboratory - Urinalysison Protein Ql (U) Negative [facility] MCHC Auto (RBC) [Mass/Vol]Or dered By: Bethany Cedillo on 09-16-2023 MCHC (RBC) [Mass/Vol] 32.8 g/dL 32-36 [facility] No Panel InformationOrdered By: Bethany Cedillo on 09-16-2023 Estimated GFR (MDRD) Amer 178 mL/min >60 [facility] Comment on above: GFR Calc Estimated GFR (MDRD) Non-Af Amer 147 mL/min >60 [facility] Comment on above: Non- GFR Calc Platelets bldOrdered By: Patsy torres Nguyen on 09-16-2023 Platelets (Bld) [#/Vol] 287 10*3/uL 150-450 [facility] Serum or plasma albumin pravin urement (mass/volume)Ordered By: Bethany Cedillo on 09-16-2023 Albumin [Mass/Vol] 2.7 g/dL 3.2-5.0 [facility] Serum or plasma albumin/glob ulin mass ratioOrdered By: Bethany Cedillo on 09-16-2023 Albumin/Globulin [Mass ratio] 0.6 {ratio} 0.9-2.4 [facility] Serum or plasma calcium pravin urement (mass/volume)Ordered By: Bethany Cedillo on 09-16-2023 Calcium [Mass/Vol] 8.2 mg/dL 8.5-10.1 [facility] Serum or plasma creatinine m easurement (mass/volume)Ordered By: Bethany Cedillo on 09-16-2023 Creatinine [Mass/Vol] 0.54 mg/dL 0.55-1.02 [facility] Comment on above: The validity of the calculated GFR & GFRAA in patients over 70 years has not been determined. Clinical correlation is essential. Serum or plasma urea nitroge n measurement (mass/volume)Ordered By: Bethany Cedillo on 09-16-2023 Urea nitrogen [Mass/Vol] 9 mg/dL 7-18 [facility] Thin prep Papanicolaou smear with manual screeningOrdered By: Bethany Cedillo on 09-16-2023 Thin prep Papanicolaou smear with manual screening 8 U/L 15-37 [facility] Thin prep Papanicolaou smear with manual screening 7 5-15 [facility] Urine creatinine measurement (mass/volume)Ordered By: Bethany Cedillo on 09-16-2023 Creatinine (U) [Mass/Vol] 119.00 mg/dL NO RANGE EST. [facility] Urine protein measurement (m ass/volume)Ordered By: Bethany Cedillo on 09-16-2023 Protein (U) [Mass/Vol] 11.7 mg/dL 0.0-11.8 [facility] Urine protein/creatinine mas s ratioOrdered By: Bethanytoby Cedillo on 09-16-2023 Protein/Creatinine (U) [Mass ratio] 98 mg/g CRE 0-200 [facility] Laboratory - Chemistry and C hemistry - challengeOrdered By: Anson Richter on 08-08-2023 Free T4 [Mass/Vol] 0.93 ng/dL 0.76-1.46 [facility] No Panel InformationOrdered By: Anson Rihcter on 08-08-2023 Thyroid Stimulating Hormone (TSH) 1.99 uIU/mL 0.358-3.74 [facility] Laboratory - Chemistry and C hemistry - challengeon 07-26-2023 Glucose Ql (U) Negative [facility] Laboratory - Urinalysison Protein Ql (U) Negative [facility] Laboratory - Chemistry and C hemistry - challengeOrdered By: Brandi Pacheco on 06-26-2023 Free T4 [Mass/Vol] 1.11 ng/dL 0.76-1.46 [facility] Laboratory - Chemistry and C hemistry - challengeon 06-26-2023 Glucose Ql (U) Negative [facility] Laboratory - Urinalysison Protein Ql (U) Negative [facility] No Panel InformationOrdered By: Brandi Pacheco on 06-26-2023 Thyroid Stimulating Hormone (TSH) 1.61 uIU/mL 0.358-3.74 [facility] Serum or plasma thyroperoxid ase antibody assay (units/volume)Ordered By: Brandi Pacheco on 06-26-2023 TPO Ab Qn 54 [IU]/mL 0-34 [facility] Comment on above: Performed at: [facility] [email or web address] [id number] Director: Td Sanders PhD, Phone: [phone] Culture, urineOrdered By: Luciano Baker on 05-28-2023 Bacteria identified Cx Nom (U) Culture exhibits no growth. [facility] Absolute lymphocyte countOrd ered By: Esme Baker on 05-27-2023 Lymphocytes Auto (Unsp spec) [#/Vol] 1.86 10*3/uL 0.83-4.51 [facility] Basophil percentageOrdered B y: Esme Baker on 05-27-2023 Basophils/100 WBC (Bld) 0.5 % 0-1 [facility] Eosinophils/100 WBC (Bld) 1.3 % 0-5 [facility] Neutrophils (Bld) [#/Vol] 7.3 10*3/uL 2.0-7.7 [facility] Neutrophils/100 WBC (Bld) 73.3 % 47-70 [facility] WBC (Bld) [#/Vol] 9.9 10*3/uL 4.4-11.0 [facility] Blood erythrocytes count (nu mber/volume)Ordered By: Esme Baker on 05-27-2023 RBC (Bld) [#/Vol] 4.02 10*6/uL 4.2-5.4 [facility] Blood hemoglobin measurement (mass/volume)Ordered By: Esme Baekr on 05-27-2023 Hemoglobin (Bld) [Mass/Vol] 11.6 g/dL 12.0-15.0 [facility] Blood lymphocytes/100 leukoc ytesOrdered By: Esme Baker on 05-27-2023 Lymphocytes/100 WBC (Bld) 18.8 % 19-41 [facility] Blood monocytes/100 leukocyt esOrdered By: Esme Baker on 05-27-2023 Monocytes/100 WBC (Bld) 5.5 % 0-10 [facility] Blood platelet mean volumeOr dered By: Esme Baker on 05-27-2023 Platelet mean volume (Bld) [Entitic vol] 8.9 fL 6.2-12.0 [facility] Chlamydia trachomatis rRNA d etection by probe and target amplification methodOrdered By: Esme Baker on 05-27-2023 C. trachomatis rRNA JACLYN+probe Ql (Unsp spec) Negative Negative [facility] Culture, urineOrdered By: Luciano Baker on 05-27-2023 Bacteria identified Cx Nom (U) Culture exhibits no growth. [facility] Determination of erythrocyte mean corpuscular volume (MCV)Ordered By: Esme Baker on 05-27-2023 MCV (RBC) [Entitic vol] 84.6 fL 81-99 [facility] HIV 1 and HIV-2 antibody ass ay with HIV-1 p24 antigen detectionOrdered By: Esme Baker on 05-27-2023 HIV 1+2 Ab+HIV1 p24 Ag IA Ql Non-Reactive Nonreactive [facility] Hematocrit Auto (Bld) [Volum e fraction]Ordered By: Esme Baker on 05-27-2023 Hematocrit (Bld) [Volume fraction] 34.0 % 37-47 [facility] Laboratory - Hematology and Cell countsOrdered By: Esme Baker on 05-27-2023 Erythrocyte distribution width (RBC) [Entitic vol] 36.7 fL 35.1-43.9 [facility] Erythrocyte distribution width (RBC) [Ratio] 12.0 % 11.6-14.6 [facility] Immature granulocytes/100 WBC (Bld) 0.600 % 0.0-0.9 [facility] Comment on above: IG% - Immature Granu locytes (promyelocytes, myelocytes and metamyelocytes) > 1% indicates that a LEFT SHIFT is Present. MCH (RBC) [Entitic mass] 28.9 pg 27.0-32.0 [facility] Nucleated RBC/100 WBC (Bld) [Ratio] 0 % 0-5 [facility] Laboratory - Microbiology an d Antimicrobial susceptibilityOrdered By: Esme Baker on 05-27-2023 N. gonorrhoeae DNA JCALYN+probe Ql (Unsp spec) Negative Negative [facility] Comment on above: Performed at: =G - L [address] [place], [place] [id number] Director: Kenyetta Ibarra MD, Phone: [phone] [facility] Auto (RBC) [Mass/Vol]Or dered By: Esme Baker on 05-27-2023 MCHC (RBC) [Mass/Vol] 34.1 g/dL 32-36 [facility] No Panel InformationOrdered By: Esme Baker on 05-27-2023 Hepatitis B Surface Antigen Non-Reactive Nonreactive [facility] Hepatitis C Antibody Non-Reactive Nonreactive [facility] Comment on above: Non Reactive: < 0.8 Equivocal: >/= 0.8 to < 1.0 Reactive: >/= 1.0The CDC recommends that a reactive/equivocal HCV antibody result be followed up by the HCV Nucleic Acid Amplificationtest (872633) Rubella IgG Antibody Reactive Nonreactive [facility] Comment on above: Antibody Results Int erpretation of Immune Status Non Reactive Presumed Non-Immune Equivocal Equivocal Reactive Presumed Immune Platelets bldOrdered By: Shelton Baker on 05-27-2023 Platelets (Bld) [#/Vol] 304 10*3/uL 150-450 [facility] Serum Treponema species anti body detectionOrdered By: Esme Baker on 05-27-2023 Treponema sp Ab Ql (S) Non-Reactive [facility] HCG,BETA-QUANTITATIVEon 07-0 HCG,BETA-QUANTITATIVE 26 mIU/mL Abnormal [facility] Comment on above: Result Comment: . Total HCG measurement is performed using the [employer] Access Immunoassay which detects intact HCG and free beta HCG subunit. . This test is not indicated for use as a tumor marker. HCG testing is performed using a different test methodology at [facility] than other [facility]. Direct result comparison should only be [...] elevation. Performed By: #### H CGQU #### [address] [address] Lab Specimen Source Normal [facility] Comment on above: Performed By: #### H CGQU #### [address] [address] HCG,BETA-QUANTITATIVEon 07-0 HCG,BETA-QUANTITATIVE <3 Normal [facility] Comment on above: Result Comment: . Total HCG measurement is performed using the [employer] immunoassay which detects intact HCG and free beta HCG subunit. . This test is not indicated for use as a tumor marker. HCG testing is performed using a different test methodology at [facility] than other [facility]. Direct result comparison should only be made within the same method. . REF VALUES NON FEMALE <5 MALES <5 Performed By: #### T 4FRE #### [address] [address] TRIIODOTHYRONINE,FREEon -0 TRIIODOTHYRONINE,FREE 3.1 pg/mL Normal 2.3 - 4.2 [facility] Comment on above: Performed By: #### T 3FRE #### [facility] [address] [place] [address] CBC AND DIFFERENTIALon 04-17 % AUTOMATED IMMATURE GRAN 0.3 % Normal 0.0 - 0.9 [facility] Comment on above: Result Comment: Jannie ture Granulocyte Count (IG) includes promyelocytes, myelocytes and metamyelocytes but does not include bands. Percent differential counts (%) should be interpreted in the context of the absolute cell counts (cells/L). Performed By: #### T 4FRE #### [address] [address] Basophils (Bld) [#/Vol] 0.05 10*3/uL Normal 0.00 - 0.10 [facility] Comment on above: Performed By: #### T 4FRE #### [address] [address] Basophils/100 WBC (Bld) 0.8 % Normal 0.0 - 2.0 [facility] Comment on above: Performed By: #### T 4FRE #### [address] [address] Eosinophils (Bld) [#/Vol] 0.19 10*3/uL Normal 0.00 - 0.70 [facility] Comment on above: Performed By: #### T 4FRE #### [address] [address] Eosinophils/100 WBC (Bld) 3.0 % Normal 0.0 - 6.0 [facility] Comment on above: Performed By: #### T 4FRE #### [address] [address] Erythrocyte distribution width (RBC) [Ratio] 12.0 % Normal 11.5 - 14.5 [facility] Comment on above: Performed By: #### T 4FRE #### [address] [address] Hematocrit (Bld) [Volume fraction] 34.9 % Low 36.0 - 46.0 [facility] Comment on above: Performed By: #### T 4FRE #### [address] [address] Hemoglobin (Bld) [Mass/Vol] 11.8 g/dL Low 12.0 - 16.0 [facility] Comment on above: Performed By: #### T 4FRE #### [address] [address] Lymphocytes (Bld) [#/Vol] 1.95 10*3/uL Normal 1.20 - 4.80 [facility] Comment on above: Performed By: #### T 4FRE #### [address] [address] Lymphocytes/100 WBC (Bld) 30.3 % Normal 13.0 - 44.0 [facility] Comment on above: Performed By: #### T 4FRE #### [address] [address] MCHC (RBC) [Mass/Vol] 33.8 g/dL Normal 32.0 - 36.0 [facility] Comment on above: Performed By: #### T 4FRE #### [address] [address] MCV (RBC) [Entitic vol] 86 fL Normal 80 - 100 [facility] Comment on above: Performed By: #### T 4FRE #### [address] [address] Monocytes (Bld) [#/Vol] 0.48 10*3/uL Normal 0.10 - 1.00 [facility] Comment on above: Performed By: #### T 4FRE #### [address] [address] Monocytes/100 WBC (Bld) 7.5 % Normal 2.0 - 10.0 [facility] Comment on above: Performed By: #### T 4FRE #### [address] [address] Neutrophils (Bld) [#/Vol] 3.75 10*3/uL Normal 1.20 - 7.70 [facility] Comment on above: Result Comment: Perc ent differential counts (%) should be interpreted in the context of the absolute cell counts (cells/L). Performed By: #### T 4FRE #### [address] [address] Neutrophils/100 WBC (Bld) 58.1 % Normal 40.0 - 80.0 [facility] Comment on above: Performed By: #### T 4FRE #### [address] [address] Platelets (Bld) [#/Vol] 230 10*3/uL Normal 150 - 450 [facility] Comment on above: Performed By: #### T 4FRE #### [address] [address] RBC 4.06 x10E12/L Normal 4.00 - 5.20 [facility] Comment on above: Performed By: #### T 4FRE #### [address] [address] WBC (Bld) [#/Vol] 6.4 10*3/uL Normal 4.4 - 11.3 [facility] Comment on above: Performed By: #### T 4FRE #### [place] [id number] FERRITINon 04-17-2023 FERRITIN 16 ug/L Normal 8 - 150 [facility] Comment on above: Performed By: #### F ERRI #### [place] [address] IRON + TIBCon 04-17-2023 % SATURATION 23 % Low 25 - 45 [facility] Comment on above: Performed By: #### T 4FRE #### [place] [address] Iron [Mass/Vol] 97 ug/dL Normal 35 - 150 [facility] Comment on above: Performed By: #### T 4FRE #### [place] [address] TIBC 429 ug/dL Normal 240 - 445 [facility] Comment on above: Performed By: #### T 4FRE #### [place] [id number] THYROXINE,FREEon 04-17-2023 THYROXINE,FREE 0.65 ng/dL Normal 0.61 - 1.12 [facility] Comment on above: Result Comment: Thyr oxine Free testing is performed using different testing methodology at [facility] than at other [facility]. Direct [...] draw. Performed By: #### T 4FRE #### [place] [address] Lab Specimen Source Normal [facility] Comment on above: Performed By: #### T 4FRE #### [place] [address] Performed By: #### F ERRI #### [place] [address] Performed By: #### T SH2 #### [address] [address] Performed By: #### T 3FRE #### [facility] [address] [place] [address] TSHon 04-17-2023 TSH Qn 2.87 m[IU]/L Normal 0.44 - 3.98 [facility] Comment on above: Result Comment: TSH testing is performed using different testing methodology at [facility] than at other [facility]. Direct result comparisons should only be made within the same method. Performed By: #### T SH2 #### [place] [id number] TRIIODOTHYRONINE,FREEon TRIIODOTHYRONINE,FREE 3.3 pg/mL Normal 2.3 - 4.2 [facility] Comment on above: Performed By: #### T 3FRE #### [facility] [address] [facility] [place] [id number] CBC AND DIFFERENTIALon 03-19 % AUTOMATED IMMATURE GRAN 0.4 % Normal 0.0 - 0.9 [facility] Comment on above: Result Comment: Jannie ture Granulocyte Count (IG) includes promyelocytes, myelocytes and metamyelocytes but does not include bands. Percent differential counts (%) should be interpreted in the context of the absolute cell counts (cells/L). Performed By: #### C BCDF #### [address] [address] Basophils (Bld) [#/Vol] 0.04 10*3/uL Normal 0.00 - 0.10 [facility] Comment on above: Performed By: #### C BCDF #### [address] [address] Basophils/100 WBC (Bld) 0.9 % Normal 0.0 - 2.0 [facility] Comment on above: Performed By: #### C BCDF #### [address] [address] Eosinophils (Bld) [#/Vol] 0.16 10*3/uL Normal 0.00 - 0.70 [facility] Comment on above: Performed By: #### C BCDF #### [address] [address] Eosinophils/100 WBC (Bld) 3.4 % Normal 0.0 - 6.0 [facility] Comment on above: Performed By: #### C BCDF #### [address] [address] Erythrocyte distribution width (RBC) [Ratio] 12.1 % Normal 11.5 - 14.5 [facility] Comment on above: Performed By: #### C BCDF #### [address] [address] Hematocrit (Bld) [Volume fraction] 36.8 % Normal 36.0 - 46.0 [facility] Comment on above: Performed By: #### C BCDF #### [address] [address] Hemoglobin (Bld) [Mass/Vol] 12.3 g/dL Normal 12.0 - 16.0 [facility] Comment on above: Performed By: #### C BCDF #### [address] [address] Lymphocytes (Bld) [#/Vol] 1.72 10*3/uL Normal 1.20 - 4.80 [facility] Comment on above: Performed By: #### C BCDF #### [address] [address] Lymphocytes/100 WBC (Bld) 36.9 % Normal 13.0 - 44.0 [facility] Comment on above: Performed By: #### C BCDF #### [address] [address] MCHC (RBC) [Mass/Vol] 33.4 g/dL Normal 32.0 - 36.0 [facility] Comment on above: Performed By: #### C BCDF #### [address] [address] MCV (RBC) [Entitic vol] 86 fL Normal 80 - 100 [facility] Comment on above: Performed By: #### C BCDF #### [address] [address] Monocytes (Bld) [#/Vol] 0.35 10*3/uL Normal 0.10 - 1.00 [facility] Comment on above: Performed By: #### C BCDF #### [address] [address] Monocytes/100 WBC (Bld) 7.5 % Normal 2.0 - 10.0 [facility] Comment on above: Performed By: #### C BCDF #### [address] [address] Neutrophils (Bld) [#/Vol] 2.37 10*3/uL Normal 1.20 - 7.70 [facility] Comment on above: Result Comment: Perc ent differential counts (%) should be interpreted in the context of the absolute cell counts (cells/L). Performed By: #### C BCDF #### [address] [address] Neutrophils/100 WBC (Bld) 50.9 % Normal 40.0 - 80.0 [facility] Comment on above: Performed By: #### C BCDF #### [address] [address] Platelets (Bld) [#/Vol] 266 10*3/uL Normal 150 - 450 [facility] Comment on above: Performed By: #### C BCDF #### [address] [address] RBC 4.27 x10E12/L Normal 4.00 - 5.20 [facility] Comment on above: Performed By: #### C BCDF #### [address] [address] WBC (Bld) [#/Vol] 4.7 10*3/uL Normal 4.4 - 11.3 [facility] Comment on above: Performed By: #### C BCDF #### [address] [address] Lab Specimen Source Normal [facility] Comment on above: Performed By: #### C BCDF #### [address] [address] Performed By: #### T 3FRE #### [facility] [address] [place] [address] Performed By: #### C MP #### [address] [address] Performed By: #### F ERRI #### [place] [address] Performed By: #### T 4FRE #### [place] [address] COMPREHENSIVE PANELon 2022 Albumin [Mass/Vol] 4.6 g/dL Normal 3.4 - 5.0 [facility] Comment on above: Performed By: #### C MP #### [place] [id number] ALP [Catalytic activity/Vol] 60 U/L Normal 33 - 110 [facility] Comment on above: Performed By: #### C MP #### [address] [address] ALT [Catalytic activity/Vol] 7 U/L Normal 7 - 45 [facility] Comment on above: Result Comment: Martha ents treated with Sulfasalazine may generate falsely decreased results for ALT. Performed By: #### C MP #### [address] [address] Anion gap [Moles/Vol] 11 mmol/L Normal 10 - 20 [facility] Comment on above: Performed By: #### C MP #### [address] [address] AST [Catalytic activity/Vol] 11 U/L Normal 9 - 39 [facility] Comment on above: Performed By: #### C MP #### [address] [address] Bilirubin [Mass/Vol] 0.4 mg/dL Normal 0.0 - 1.2 [facility] Comment on above: Performed By: #### C MP #### [address] [place] [address] Calcium [Mass/Vol] 8.9 mg/dL Normal 8.6 - 10.3 [facility] Comment on above: Performed By: #### C MP #### [address] [address] Chloride [Moles/Vol] 105 mmol/L Normal 98 - 107 [facility] Comment on above: Performed By: #### C MP #### [address] [address] Creatinine [Mass/Vol] 0.75 mg/dL Normal 0.50 - 1.05 [facility] Comment on above: Performed By: #### C MP #### [address] [address] eGFR FEMALE >90 Normal >90 [facility] Comment on above: Result Comment: CALC ULATIONS OF ESTIMATED GFR ARE PERFORMED USING THE 2020 CKD-EPI STUDY REFIT EQUATION WITHOUT THE RACE VARIABLE FOR THE IDMS-TRACEABLE CREATININE METHODS. https://jasn.asnjournals.org/content/early/ASN.62171 [address] Performed By: #### C MP #### [address] [address] Glucose [Mass/Vol] 90 mg/dL Normal 74 - 99 [facility] Comment on above: Performed By: #### C MP #### [address] [address] HCO3 (Bld) [Moles/Vol] 24 mmol/L Normal 21 - 32 [facility] Comment on above: Performed By: #### C MP #### [address] [address] Potassium [Moles/Vol] 3.8 mmol/L Normal 3.5 - 5.3 [facility] Comment on above: Performed By: #### C MP #### [address] [address] Protein [Mass/Vol] 7.1 g/dL Normal 6.4 - 8.2 [facility] Comment on above: Performed By: #### C MP #### [address] [address] Sodium [Moles/Vol] 136 mmol/L Normal 136 - 145 [facility] Comment on above: Performed By: #### C MP #### [address] [address] Urea nitrogen [Mass/Vol] 14 mg/dL Normal 6 - 23 [facility] Comment on above: Performed By: #### C MP #### [place] [id number] FERRITINon 03-19-2023 FERRITIN 19 ug/L Normal 8 - 150 [facility] Comment on above: Performed By: #### F ERRI #### [place] [id number] FOLATE, SERUMon 03-19-2023 Folate [Mass/Vol] 18.9 ng/mL Normal >5.0 [facility] Comment on above: Result Comment: Low <3.4 Borderline 3.4-5.0 Normal >5.0 . Patients receiving more than 5 mg/day of biotin may have interference in test results. A sample should be taken no sooner than eight hours after previous dose. Contact the testing laboratory for additional information. Performed By: #### T 4FRE #### [place] [id number] HEMOGLOBIN A1Con 03-19-2023 Glucose [Mass/Vol] 97 mg/dL Normal [facility] Comment on above: Performed By: #### H BA1E #### [place] [id number] HbA1c (Bld) [Mass fraction] 5.0 % Normal [facility] Comment on above: Result Comment: Diag nosis of Diabetes-Adults Non-Diabetic: < or = 5.6% Increased risk for developing diabetes: 5.7-6.4% Diagnostic of diabetes: > or = 6.5% . Monitoring of Diabetes Age (y) Therapeutic Goal (%) Adults: >18 <7.0 Pediatrics: 13-18 <7.5 7-12 <8.0 0- 6 7.5-8.5 [place] [employer]. Diabetes Care 33(S1), Oct 2009. Performed By: #### H BA1E #### [address] [address] IRON + TIBCon 03-19-2023 % SATURATION 10 % Low 25 - 45 [facility] Comment on above: Performed By: #### T 4FRE #### [address] [address] Iron [Mass/Vol] 40 ug/dL Normal 35 - 150 [facility] Comment on above: Performed By: #### T 4FRE #### [address] [address] TIBC 420 ug/dL Normal 240 - 445 [facility] Comment on above: Performed By: #### T 4FRE #### [address] [address] LIPID PANEL (CORONARY RISK 2 )on 03-19-2023 Cholesterol [Mass/Vol] 167 mg/dL Normal 0 - 199 [facility] Comment on above: Result Comment: . AGE [...] dosing. Performed By: #### T 4FRE #### [address] [address] Cholesterol in HDL [Mass/Vol] 68.0 mg/dL Normal [facility] Comment on above: Result Comment: . AGE VERY LOW LOW NORMAL HIGH 0-19 Y < 35 < 40 40-45 ---- 20-24 Y ---- < 40 >45 ---- >24 Y ---- < 40 40-60 >60 . Performed By: #### T 4FRE #### [address] [address] Cholesterol in LDL [Mass/Vol] 92 mg/dL Normal 0 - 119 [facility] Comment on above: Result Comment: . NEAR BORD AGE DESIRABLE OPTIMAL HIGH HIGH VERY HIGH 0-19 Y 0 - 109 --- 110-129 >/= 130 ---- 20-24 Y 0 - 119 --- 120-159 >/= 160 ---- >24 Y 0 - 99 100-129 130-159 160-189 >/=190 . Performed By: #### T 4FRE #### [address] [address] Cholesterol in VLDL [Mass/Vol] 7 mg/dL Normal 0 - 40 [facility] Comment on above: Performed By: #### T 4FRE #### [address] [address] Cholesterol.total/Chol esterol in HDL [Mass ratio] 2.5 {ratio} Normal [facility] Comment on above: Result Comment: REF VALUES DESIRABLE < 3.4 HIGH RISK > 5.0 Performed By: #### T 4FRE #### [address] [address] NON-HDL CHOLESTEROL 99 mg/dL Normal 0 - 149 [facility] Comment on above: Result Comment: AGE DESIRABLE BORDERLINE HIGH HIGH VERY HIGH 0-19 Y 0 - 119 120 - 144 >/= 145 >/= 160 20-24 Y 0 - 149 150 - 189 >/= 190 ---- >24 Y 30 MG/DL ABOVE LDL CHOLESTEROL GOAL . Performed By: #### T 4FRE #### [address] [address] Triglyceride [Mass/Vol] 33 mg/dL Normal 0 - 149 [facility] Comment on above: Result Comment: . [...] dosing. Performed By: #### T 4FRE #### [address] [address] THYROXINE,FREEon 03-19-2023 THYROXINE,FREE 0.78 ng/dL Normal 0.61 - 1.12 [facility] Comment on above: Result Comment: Thyr oxine Free testing is performed using different testing methodology at [facility] than at other [facility]. Direct [...] draw. Performed By: #### T 4FRE #### [address] [address] TSHon 03-19-2023 TSH Qn 5.03 m[IU]/L High 0.44 - 3.98 [facility] Comment on above: Result Comment: TSH testing is performed using different testing methodology at [facility] than at other [facility]. Direct result comparisons should only be made within the same method. Performed By: #### T 4FRE #### [address] [address] VITAMIN B12on 03-19-2023 Cobalamin (Vitamin B12) [Mass/Vol] 324 pg/mL Normal 211 - 911 [facility] Comment on above: Performed By: #### T 4FRE #### [address] [address] CHEST 2 VIEW PA AND LATon CHEST 2 VIEW PA AND LAT Patient Name: JOHNY FREED STUDY: CHEST 2 VIEW PA AND LAT; INDICATION: COUGH. COMPARISON: 12/29/2021. ACCESSION NUMBER(S): [id number] ORDERING CLINICIAN: ALEXA LANCASTER FINDINGS: The cardiac silhouette size is within normal limits. There is no focal consolidation, edema or pneumothorax. No sizeable pleural effusion. IMPRESSION: 1. No acute cardiopulmonary process. Electronically signed by: PEREZ WALTERS MD Normal [facility] IO HCG, Urine Test on 12-06-2022 HCG ( test) Ql (U) Negative Normal [facility] [address] [employer] Work Phone: [phone] LMPon 12-06-2022 Last menstrual period start date 06Nov2022 [facility] [address] [employer] 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 pelvic floor PT [...] CAPS Vitals Vital Signs Recorded: 06Dec2022 01:21PM Qysyxapp294 Pyorasaam34 Height5 ft 2 in Etazoo341 lb 5.71 oz BMI Mhtqujldzp27.85 kg/m2 BSA Calculated1.59 [id number] Physical Exam Constitutional: Alert and in no acute distress. Well developed, well nourished Pulmonary: No respiratory distress Psychiatric: alert and oriented x 3., affect normal to patient baseline, mood: appropriate and judgment and insight: intact Results/Data IO HCG, Urine [id number] 01:23PMRochelle Boyer HCG LOT [id number] EXP 2023-11-13 Test NameResultFlagReference IO Urine hCGNegative Signatures Electronically signed by : Rochelle Boyer APRN-OTF [facility]; Dec 06 2022 4:18PM EST (Author) Normal [facility] Office Visit (Internal Medic ine)on 10-17-2022 Follow-up visit Diagnoses/Problems Assessed Thyroiditis (245.9) (E06.9) Mother currently breast-feeding (V24.1) (Z39.1) Other malaise and fatigue (780.79) (R53.81,R53.83) Seasonal allergies (477.9) (J30.2) Tachycardia (785.0) (R00.0) Patient Discussion/Summary Due to COVID 19 threat, virtual appointment completed with [employer] kristi f/u PRN Provider Impressions 1.Complexity: More [...] infection (V12.09 (more content not included)... [facility] CBC AND DIFFERENTIALon 09-24 % AUTOMATED IMMATURE GRAN 0.2 % Normal 0.0 - 0.9 [facility] Comment on above: Result Comment: Jannie ture Granulocyte Count (IG) includes promyelocytes, myelocytes and metamyelocytes but does not include bands. Percent differential counts (%) should be interpreted in the context of the absolute cell counts (cells/L). Performed By: #### G ENLO #### [facility] [address] [place] [address] Basophils (Bld) [#/Vol] 0.07 10*3/uL Normal 0.00 - 0.10 [facility] Comment on above: Performed By: #### G ENLO #### [facility] [address] [place] [address] Basophils/100 WBC (Bld) 1.2 % Normal 0.0 - 2.0 [facility] Comment on above: Performed By: #### G ENLO #### [facility] [address] [place] [address] Eosinophils (Bld) [#/Vol] 0.22 10*3/uL Normal 0.00 - 0.70 [facility] Comment on above: Performed By: #### G ENLO #### [facility] [address] [place] [address] Eosinophils/100 WBC (Bld) 3.8 % Normal 0.0 - 6.0 [facility] Comment on above: Performed By: #### G ENLO #### [facility] [address] [place] [address] Erythrocyte distribution width (RBC) [Ratio] 11.9 % Normal 11.5 - 14.5 [facility] Comment on above: Performed By: #### G ENLO #### [facility] [address] [place] [address] Hematocrit (Bld) [Volume fraction] 37.4 % Normal 36.0 - 46.0 [facility] Comment on above: Performed By: #### G ENLO #### [facility] [address] [place] [address] Hemoglobin (Bld) [Mass/Vol] 12.4 g/dL Normal 12.0 - 16.0 [facility] Comment on above: Performed By: #### G ENLO #### [facility] [address] [place] [address] Lymphocytes (Bld) [#/Vol] 1.74 10*3/uL Normal 1.20 - 4.80 [facility] Comment on above: Performed By: #### G ENLO #### [facility] [address] [place] [address] Lymphocytes/100 WBC (Bld) 30.3 % Normal 13.0 - 44.0 [facility] Comment on above: Performed By: #### G ENLO #### [facility] [address] [place] [address] MCHC (RBC) [Mass/Vol] 33.2 g/dL Normal 32.0 - 36.0 [facility] Comment on above: Performed By: #### G ENLO #### [facility] [address] [place] [address] MCV (RBC) [Entitic vol] 86 fL Normal 80 - 100 [facility] Comment on above: Performed By: #### G ENLO #### [facility] [address] [place] [address] Monocytes (Bld) [#/Vol] 0.38 10*3/uL Normal 0.10 - 1.00 [facility] Comment on above: Performed By: #### G ENLO #### [facility] [address] [place] [address] Monocytes/100 WBC (Bld) 6.6 % Normal 2.0 - 10.0 [facility] Comment on above: Performed By: #### G ENLO #### [facility] [address] [place] [address] Neutrophils (Bld) [#/Vol] 3.32 10*3/uL Normal 1.20 - 7.70 [facility] Comment on above: Result Comment: Perc ent differential counts (%) should be interpreted in the context of the absolute cell counts (cells/L). Performed By: #### G ENLO #### [facility] [address] [place] [address] Neutrophils/100 WBC (Bld) 57.9 % Normal 40.0 - 80.0 [facility] Comment on above: Performed By: #### G ENLO #### [facility] [address] [place] [address] Platelets (Bld) [#/Vol] 288 10*3/uL Normal 150 - 450 [facility] Comment on above: Performed By: #### G ENLO #### [facility] [address] [place] [address] RBC 4.33 x10E12/L Normal 4.00 - 5.20 [facility] Comment on above: Performed By: #### G ENLO #### [facility] [address] [place] [address] WBC (Bld) [#/Vol] 5.7 10*3/uL Normal 4.4 - 11.3 [facility] Comment on above: Performed By: #### G JAYCOBO #### [facility] [address] [place] [address] Complete Blood Count + Diffe reyes 09-24-2022 Basophils/100 WBC (Bld) 1.2 % 0.0 - 2.0 [facility] Work Phone: [phone] Erythrocyte distribution width (RBC) [Ratio] 11.9 % See Below [facility] Work Phone: [phone] Comment on above: Reference Range: 11. 5 - 14.5 Hematocrit (Bld) [Volume fraction] 37.4 % See Below [facility] Work Phone: [phone] Comment on above: Reference Range: 36. 0 - 46.0 Hemoglobin (Bld) [Mass/Vol] 12.4 g/dL See Below [facility] Work Phone: [phone] Comment on above: Reference Range: 12. 0 - 16.0 Lymphocytes/100 WBC (Bld) 30.3 % See Below [facility] Work Phone: [phone] Comment on above: Reference Range: 13. 0 - 44.0 MCHC (RBC) [Mass/Vol] 33.2 g/dL See Below [facility] Work Phone: Comment on above: Reference Range: 32. 0 - 36.0 MCV (RBC) [Entitic vol] 86 fL 80 - 100 [facility] Work Phone: [phone] Monocytes/100 WBC (Bld) 6.6 % 2.0 - 10.0 [facility] Work Phone: [phone] Neutrophils/100 WBC (Bld) 57.9 % See Below [facility] Work Phone: [phone] Comment on above: Reference Range: 40. 0 - 80.0 Platelets (Bld) [#/Vol] 288 10*3/uL 150 - 450 [facility] Work Phone: [phone] RBC (Bld) [#/Vol] 4.33 {x10E12/L} See Below [facility] Work Phone: Comment on above: Reference Range: 4.0 0 - 5.20 WBC (Bld) [#/Vol] 5.7 10*3/uL 4.4 - 11.3 [facility] Work Phone: Complete Blood Count + Differential 0.07 {x10E9/L} See Below [facility] Work Phone: Comment on above: Reference Range: 0.0 0 - 0.10 Complete Blood Count + Differential 0.22 {x10E9/L} See Below [facility] Work Phone: Comment on above: Reference Range: 0.0 0 - 0.70 Complete Blood Count + Differential 0.38 {x10E9/L} See Below [facility] Work Phone: Comment on above: Reference Range: 0.1 0 - 1.00 Complete Blood Count + Differential 1.74 {x10E9/L} See Below [facility] Work Phone: Comment on above: Reference Range: 1.2 0 - 4.80 Complete Blood Count + Differential 3.32 {x10E9/L} See Below [facility] Work Phone: Comment on above: Reference Range: 1.2 0 - 7.70 Percent differential counts (%) should be interpreted in the context of the absolute cell counts (cells/L). Complete Blood Count + Differential 3.8 % 0.0 - 6.0 [facility] Work Phone: Complete Blood Count + Differential 0.2 % 0.0 - 0.9 [facility] Work Phone: Comment on above: Immature Granulocyte Count (IG) includes promyelocytes, myelocytes and metamyelocytes but does not include bands. Percent differential counts (%) should be interpreted in the context of the absolute cell counts (cells/L). Cult, Urineon 09-24-2022 Bacteria identified Cx Nom (U) [facility] Work Phone: [phone] FERRITINon 09-24-2022 FERRITIN 41 ug/L Normal 8 - 150 [facility] Comment on above: Performed By: #### F COURTNEY #### [address] [address] Ferritin, Serumon 09-24-2022 Ferritin [Mass/Vol] 41 ug/L 8 - 150 [facility] Work Phone: [phone] IO UA (automated w/o microsc opy)on 09-24-2022 Protein (U) [Mass/Vol] Negative [facility] Work Phone: [phone] IO UA (automated w/o microscopy) Negative [facility] Work Phone: [phone] IO UA (automated w/o microscopy) Normal (0.2-1.0 mg/dl) [facility] Work Phone: IO UA (automated w/o microscopy) 7.0 1 [facility] Work Phone: [phone] IO UA (automated w/o microscopy) 1.025 1 [facility] Work Phone: [phone] IO UA (automated w/o microscopy) Clear [facility] Work Phone: [phone] 33 IO UA (automated w/o microscopy) Yellow [facility] Work Phone: IRON + TIBCon 09-24-2022 % SATURATION 27 % Normal 25 - 45 [facility] Comment on above: Performed By: #### I ZHANNA #### [address] [address] Iron [Mass/Vol] 105 ug/dL Normal 35 - 150 [facility] Comment on above: Performed By: #### I MIREILLET #### [address] [address] TIBC 392 ug/dL Normal 240 - 445 [facility] Comment on above: Performed By: #### I ZHANNA #### [address] [address] Laboratory - Chemistry and C hemistry - challengeon 09-24-2022 Iron [Mass/Vol] 105 ug/dL 35 - 150 [facility] Work Phone: Iron binding capacity [Mass/Vol] 392 ug/dL 240 - 445 [facility] Work Phone: No Panel Informationon 09-24 27 % 25 - 45 [facility] Work Phone: Office Visit [...] 02:18PM Performed:In Office; Due:23Dec2022;Ordered; For:Urinary frequency; Ordered By:hCrystal Alamo; Patient Discussion/Summary f/u as before pt [...] (Z11.3) Scre (more content not included)... Normal [facility] T4 - Free Thyroxine, Serumon 09-24-2022 Free T4 [Mass/Vol] 0.88 ng/dL See Below -[facility] Work Phone: Comment on above: Reference Range: 0.6 1 - 1.12 Thyroxine Free testing is performed using different testing methodology at [facility] than at other [facility]. Direct [...] 0.88 ng/dL Normal 0.61 - 1.12 [facility] Comment on above: Result Comment: Thyr oxine Free testing is performed using different testing methodology at [facility] than at other [facility]. Direct [...] draw. Performed By: #### G ENLO #### [facility] [address] [place] [address] TSHon 09-24-2022 TSH Qn 3.72 m[IU]/L Normal 0.44 - 3.98 [facility] Comment on above: Result Comment: TSH testing is performed using different testing methodology at [facility] than at [facility]. Direct result comparisons should only be made within the same method. Performed By: #### T SH2 #### [facility] [address] [place] [address] TSH - Thyroid Stimulating Ho rmone, Serumon 09-24-2022 TSH Qn 3.72 m[IU]/L See Below [facility] Work Phone: Comment on above: Reference Range: 0.4 4 - 3.98 TSH testing is performed using different testing methodology at [facility] than at [facility]. Direct result comparisons should only be made within the same method. Tobacco Screening.on 022 Fall risk assessment a) No falls within the last year [facility] Work Phone: Tobacco use status CPHS b) No [facility] Work Phone: URINE CULTURE,BACTERIALon URINE CULTURE,BACTERIAL PATIENT: [place]OHNY FREED [place] [facility] [id number] : [birth year] AGE: SEX: F ORDERED BY: CHRYSTAL ALAMO SOURCE: URINE COLLECTED: 09/24/22 14:51 ANTIBIOTICS AT [facility].: RECEIVED : 09/24/22 23:59 SITE: Clean Catch/Voided R E S U L T S URINE CULTURE,BACTERIAL FINAL 09/26/22 03:10 NO SIGNIFICANT GROWTH. Normal [facility] Comment on above: Performed By: #### U RINC #### [facility] [address] [place] [address] VITAMIN B12on 09-24-2022 Cobalamin (Vitamin B12) [Mass/Vol] 331 pg/mL Normal 211 - 911 [facility] Comment on above: Performed By: #### G ENLO #### [facility] [address] [place] [address] Vitamin B12, Serumon 022 Cobalamin (Vitamin B12) [Mass/Vol] 331 pg/mL 211 - 911 [facility] Work Phone: CBC AND DIFFERENTIALon 03-20 Basophils (Bld) [#/Vol] 0.10 10*3/uL Normal 0.00 - 0.10 [facility] Comment on above: Performed By: #### C BCDF #### [address] [address] Eosinophils (Bld) [#/Vol] 0.70 10*3/uL Normal 0.00 - 0.70 [facility] Comment on above: Performed By: #### C BCDF #### [address] [address] Eosinophils/100 WBC (Bld) 13.8 % Normal 0.0 - 6.0 [facility] Comment on above: Performed By: #### C BCDF #### [address] [address] Lymphocytes (Bld) [#/Vol] 1.70 10*3/uL Normal 1.20 - 4.80 [facility] Comment on above: Performed By: #### C BCDF #### [address] [address] Monocytes (Bld) [#/Vol] 0.40 10*3/uL Normal 0.10 - 1.00 [facility] Comment on above: Performed By: #### C BCDF #### [address] [address] Neutrophils (Bld) [#/Vol] 2.20 10*3/uL Normal 1.20 - 7.70 [facility] Comment on above: Result Comment: Perc ent differential counts (%) should be interpreted in the context of the absolute cell counts (cells/L). Performed By: #### C BCDF #### [address] [address] RBC 4.42 x10E12/L Normal 4.00 - 5.20 [facility] Comment on above: Performed By: #### C BCDF #### [address] [address] COMPREHENSIVE PANELon 2021 Albumin [Mass/Vol] 4.4 g/dL Normal 3.4 - 5.0 [facility] Comment on above: Performed By: #### G ENLO #### [facility] [address] [place] [address] ALP [Catalytic activity/Vol] 93 U/L Normal 33 - 110 [facility] Work Phone: Comment on above: Performed By: #### G ENLO #### [facility] [address] [place] [address] ALT [Catalytic activity/Vol] 11 U/L Normal 7 - 45 [facility] Comment on above: Result Comment: Martha ents treated with Sulfasalazine may generate falsely decreased results for ALT. Performed By: #### G ENLO #### [facility] [address] [place] [address] Anion gap [Moles/Vol] 12 mmol/L Normal 10 - 20 [facility] Work Phone: Comment on above: Performed By: #### G ENLO #### [facility] [address] [place] [address] AST [Catalytic activity/Vol] 12 U/L Normal 9 - 39 [facility] Comment on above: Performed By: #### G ENLO #### [facility] [address] [place] [address] Bilirubin [Mass/Vol] 0.5 mg/dL Normal 0.0 - 1.2 [facility] Work Phone: Comment on above: Performed By: #### G ENLO #### [facility] [address] [place] [address] Calcium [Mass/Vol] 9.4 mg/dL Normal 8.6 - 10.3 [facility] Work Phone: Comment on above: Performed By: #### G ENLO #### [facility] [address] [place] [address] Chloride [Moles/Vol] 107 mmol/L Normal 98 - 107 [facility] Work Phone: Comment on above: Performed By: #### G ENLO #### [facility] [address] [place] [address] Creatinine [Mass/Vol] 0.70 mg/dL Normal 0.50 - 1.05 [facility] Work Phone: Comment on above: Reference Range: 0.5 0 - 1.05 Performed By: #### G ENLO #### [facility] [address] [place] [address] eGFR FEMALE >90 Normal >90 [facility] Comment on above: Result Comment: CALC ULATIONS OF ESTIMATED GFR ARE PERFORMED USING THE 2020 CKD-EPI STUDY REFIT EQUATION WITHOUT THE RACE VARIABLE FOR THE IDMS-TRACEABLE CREATININE METHODS. https://jasn.asnjournals.org/content//ASN.58027 [address] Performed By: #### G ENLO #### [facility] [address] [place] [address] Glucose [Mass/Vol] 88 mg/dL Normal 74 - 99 [facility] Work Phone: Comment on above: Performed By: #### G ENLO #### [facility] [address] [place] [address] HCO3 (Bld) [Moles/Vol] 24 mmol/L Normal 21 - 32 [facility] Comment on above: Performed By: #### G ENLO #### [facility] [address] [place] [address] Potassium [Moles/Vol] 3.8 mmol/L Normal 3.5 - 5.3 [facility] Internal [facility] Work Phone: Comment on above: Performed By: #### G ENLO #### [facility] [address] [place] [address] Protein [Mass/Vol] 7.4 g/dL Normal 6.4 - 8.2 [facility] Internal [facility] Work Phone: Comment on above: Performed By: #### G ENLO #### [facility] [address] [place] [address] Sodium [Moles/Vol] 139 mmol/L Normal 136 - 145 [facility] Internal [facility] Work Phone: Comment on above: Performed By: #### G ENLO #### [facility] [address] [place] [address] Urea nitrogen [Mass/Vol] 15 mg/dL Normal 6 - 23 [facility] Internal [facility] Work Phone: Comment on above: Performed By: #### G ENLO #### [facility] [address] [place] [address] Complete Blood Count + Diffe rentialon 03-20-2022 Basophils/100 WBC (Bld) 1.3 % Normal 0.0 - 2.0 [facility] Work Phone: Comment on above: Performed By: #### C BCDF #### [facility] [address] [place] [address] Erythrocyte distribution width (RBC) [Ratio] 12.8 % Normal 11.5 - 14.5 [facility] Internal [facility] Work Phone: Comment on above: Reference Range: 11. 5 - 14.5 Performed By: #### C BCDF #### [address] [address] Hematocrit (Bld) [Volume fraction] 36.2 % Normal 36.0 - 46.0 [facility] Work Phone: Comment on above: Reference Range: 36. 0 - 46.0 Performed By: #### C BCDF #### [address] [address] Hemoglobin (Bld) [Mass/Vol] 12.4 g/dL Normal 12.0 - 16.0 [facility] Work Phone: [phone] Comment on above: Reference Range: 12. 0 - 16.0 Performed By: #### C BCDF #### [address] [address] Lymphocytes/100 WBC (Bld) 33.9 % Normal 13.0 - 44.0 [facility] Work Phone: [phone] Comment on above: Reference Range: 13. 0 - 44.0 Performed By: #### C BCDF #### [address] [address] MCHC (RBC) [Mass/Vol] 34.2 g/dL Normal 32.0 - 36.0 [facility] Work Phone: Comment on above: Reference Range: 32. 0 - 36.0 Performed By: #### C BCDF #### [address] [address] MCV (RBC) [Entitic vol] 82 fL Normal 80 - 100 [facility] Work Phone: Comment on above: Performed By: #### C BCDF #### [address] [address] Monocytes/100 WBC (Bld) 8.7 % Normal 2.0 - 10.0 [facility] Work Phone: Comment on above: Performed By: #### C BCDF #### [address] [address] Neutrophils/100 WBC (Bld) 42.3 % Normal 40.0 - 80.0 [facility] Work Phone: [phone] Comment on above: Reference Range: 40. 0 - 80.0 Performed By: #### C BCDF #### [address] [address] Platelets (Bld) [#/Vol] 291 10*3/uL Normal 150 - 450 [facility] Work Phone: [phone] Comment on above: Performed By: #### C BCDF #### [address] [address] WBC (Bld) [#/Vol] 5.1 10*3/uL Normal 4.4 - 11.3 [facility] Work Phone: [phone] Comment on above: Performed By: #### C BCDF #### [address] [address] RBC (Bld) [#/Vol] 4.42 {x10E12/L} See Below [facility] Work Phone: [phone] Comment on above: Reference Range: 4.0 0 - 5.20 Complete Blood Count + Differential 0.10 {x10E9/L} See Below [facility] Work Phone: [phone] Comment on above: Reference Range: 0.0 0 - 0.10 Complete Blood Count + Differential 0.70 {x10E9/L} See Below [facility] Work Phone: [phone] Comment on above: Reference Range: 0.0 0 - 0.70 Complete Blood Count + Differential 0.40 {x10E9/L} See Below [facility] Home Work Phone: [phone] Comment on above: Reference Range: 0.1 0 - 1.00 Complete Blood Count + Differential 1.70 {x10E9/L} See Below [facility] Work Phone: Comment on above: Reference Range: 1.2 0 - 4.80 Complete Blood Count + Differential 2.20 {x10E9/L} See Below [facility] Medicine Work Phone: Comment on above: Reference Range: 1.2 0 - 7.70 Percent differential counts (%) should be interpreted in the context of the absolute cell counts (cells/L). Complete Blood Count + Differential 13.8 % 0.0 - 6.0 [facility] Work Phone: FERRITINon 03-20-2022 FERRITIN 40 ug/L Normal 8 - 150 [facility] Comment on above: Performed By: #### F ERRI #### [facility] [address] [place] [address] Ferritin, Serumon 03-20-2022 Ferritin [Mass/Vol] 40 ug/L 8 - 150 [facility] Internal Medicine Work Phone: IRON + TIBCon 03-20-2022 % SATURATION 24 % Low 25 - 45 [facility] Comment on above: Performed By: #### G ENLO #### [facility] [address] [place] [address] Iron [Mass/Vol] 102 ug/dL Normal 35 - 150 [facility] Medicine Work Phone: Comment on above: Performed By: #### G ENLO #### [facility] [address] [place] [address] TIBC 419 ug/dL Normal 240 - 445 [facility] Comment on above: Performed By: #### G ENLO #### [facility] [address] [place] [address] LIPID PANEL (CORONARY RISK 2 )on 03-20-2022 Cholesterol in VLDL [Mass/Vol] 8 mg/dL Normal 0 - 40 [facility] Comment on above: Performed By: #### G ENLO #### [facility] [address] [place] [address] NON-HDL CHOLESTEROL 96 mg/dL Normal 0 - 149 [facility] Comment on above: Result Comment: AGE DESIRABLE BORDERLINE HIGH HIGH VERY HIGH 0-19 Y 0 - 119 120 - 144 >/= 145 >/= 160 20-24 Y 0 - 149 150 - 189 >/= 190 ---- >24 Y 30 MG/DL ABOVE LDL CHOLESTEROL GOAL . Performed By: #### G ENLO #### [facility] [address] [place] [address] Laboratory - Chemistry and C hemistry - challengeon 03-20-2022 Albumin BCP dye [Mass/Vol] 4.4 g/dL 3.4 - 5.0 [facility] Internal [facility] Work Phone: ALT With P-5'-P [Catalytic activity/Vol] 11 U/L 7 - 45 [facility] Internal [facility] Work Phone: Comment on above: Patients treated wit h Sulfasalazine may generate falsely decreased results for ALT. AST With P-5'-P [Catalytic activity/Vol] 12 U/L 9 - 39 [facility] Work Phone: CO2 [Moles/Vol] 24 mmol/L 21 - 32 [facility] Internal Medicine Work Phone: Iron binding capacity [Mass/Vol] 419 ug/dL 240 - 445 [facility] Internal [facility] Work Phone: Lipid Panelon 03-20-2022 Cholesterol [Mass/Vol] 170 mg/dL Normal 0 - 199 [facility] Internal [facility] Work Phone: Comment on above: . [...] Performed By: #### G ENLO #### [facility] [address] [place] [address] Cholesterol in HDL [Mass/Vol] 74.0 mg/dL Normal [facility] Work Phone: Comment on [...] Performed By: #### G ENLO #### [facility] [address] [place] [address] Cholesterol in LDL [Mass/Vol] 88 mg/dL Normal 0 - 119 [facility] Medicine Work Phone: Comment on above: [...] Performed By: #### G ENLO #### [facility] [address] [place] [address] Cholesterol.total/Chol esterol in HDL [Mass ratio] 2.3 {ratio} Normal [facility] Work Phone: Comment on above: REF VALUESDESIRABLE < 3.4HIGH RISK > 5.0 Result Comment: REF VALUES DESIRABLE < 3.4 HIGH RISK > 5.0 Performed By: #### G ENLO #### [facility] [address] [place] [address] Triglyceride [Mass/Vol] 41 mg/dL Normal 0 - 149 [facility] Work Phone: Comment on above: . AGE [...] dosing. Performed By: #### G ENLO #### [facility] [address] [place] [address] Cholesterol non HDL [Mass/Vol] 96 mg/dL 0 - 149 [facility] Internal [facility] Work Phone: Comment on above: AGE DESIRABLE BORDER LINE HIGH HIGH VERY HIGH 0-19 Y 0 - 119 120 - 144 >/= 145 >/= 160 20-24 Y 0 - 149 150 - 189 >/= 190 ---- >24 Y 30 MG/DL ABOVE LDL CHOLESTEROL GOAL. Lipid Panel 8 mg/dL 0 - 40 [facility] Internal [facility] Work Phone: No Panel Informationon 03-20 24 % below low threshold 25 - 45 [facility] Work Phone: >90 >90 [facility] Internal [facility] Work Phone: Comment on above: CALCULATIONS OF ANN-MARIE MATED GFR ARE PERFORMED USING THE 2020 CKD-EPI STUDY REFIT EQUATION WITHOUT THE RACE VARIABLE FOR THE IDMS-TRACEABLE CREATININE METHODS.https://jasn.asnjournals.org/content//A .6945122451 T4 - Free Thyroxine, Serumon 03-20-2022 Free T4 [Mass/Vol] 0.92 ng/dL See Below [facility] Work Phone: Comment on above: Reference Range: 0.6 1 - 1.12 Thyroxine Free testing is performed using different testing methodology at [facility] than at other [facility]. Direct [...] 0.92 ng/dL Normal 0.61 - 1.12 [facility] Comment on above: Result Comment: Thyr oxine Free testing is performed using different testing methodology at [facility] than at other [facility]. Direct [...] draw. Performed By: #### T 4FRE #### [address] [address] TSHon 03-20-2022 TSH Qn 0.05 m[IU]/L Low 0.44 - 3.98 [facility] Comment on above: Result Comment: TSH testing is performed using different testing methodology at [facility] than at other [facility]. Direct result comparisons should only be made within the same method. Performed By: #### T SH2 #### [address] [address] Vitamin B12, Serumon 022 Cobalamin (Vitamin B12) [Mass/Vol] 368 pg/mL Normal 211 - 911 [facility] Medicine Work Phone: Comment on above: Performed By: #### V TB12 #### [address] [address] Cult, Genitalon 03-05-2022 Bacteria identified Aer cx Nom (Genital specimen) [facility] [address] Work Phone: Tobacco Screening.on 022 Fall risk assessment a) No falls within the last year [facility] Work Phone: Tobacco use status CPHS b) No [facility] Work Phone: CORONAVIRUS 2019, SCREEN ASY MPTOMATICon 01-20-2022 SARS-CoV-2 (COVID-19) RNA JACLYN+probe Ql (Unsp spec) Not detected Normal Not Detected [facility] Comment on above: Result Comment: . This [...] patient management decisions. Fact sheet for providers: https://www.fda.gov/media/730596/download Fact sheet for patients: https://www.fda.gov/media/038292/download This test has received FDA Emergency Use Authorization (EUA) and has been verified by [facility] ([facility]). This test is only authorized for the duration of time that circumstances exist to justify the authorization of the emergency use of in vitro diagnostic tests for the detection of SARS-CoV-2 virus and/or diagnosis of COVID-19 infection under section 564(b)(1) of the Act, 21 U.S.C. 360bbb-3(b)(1), unless the authorization is terminated or revoked sooner. [facility] is certified under CLIA-88 as qualified to perform high complexity testing. Testing is performed in the [facility] laboratories located at [address] [place] [address]. Performed By: #### G ENLO #### [place] [address] Lab Specimen Source Nasal, Nasopharyngeal Normal [facility] Comment on above: Performed By: #### G ENLO #### [place] [address] Coronavirus 2019 RNA by PCR, Screening Asymptomticon 01-20-2022 Coronavirus 2019 RNA by PCR, Screening Asymptomtic Not detected Normal See Below [facility] [address] [employer] Work Phone: Comment on above: SOURCE: Nasal, [...] make patient management decisions.Fact sheet for providers: https://www.fda.gov/media/209274/downloadFact sheet for patients: https://www.fda.gov/media/807725/downloadThis test has received FDA Emergency Use Authorization (EUA) and has been verified by [facility] ([facility]). This test is only authorized for the duration of time that circumstances exist to justify the authorization of the emergency use of in vitro diagnostic tests for the detection of SARS-CoV-2 virus and/or diagnosis of COVID-19 infection under section 564(b)(1) of the Act, 21 U.S.C. 360bbb-3(b)(1), unless the authorization is terminated or revoked sooner. [facility] is certified under CLIA-88 as qualified to perform high complexity testing. Testing is performed in the [facility] laboratories located at [address] [place] [address]. Covid 19 Resultson 2 SARS-CoV-2 (COVID-19) RNA [...] You may also be contacted by the [facility] to see if any of your close [...] or Naproxen (Aleve) can also be used. Keys-jvm-qeuqxzb cough and cold medicines can be used according to the instructions on the package. Some wzgs-ebs-peovrxq medicines also contain acetaminophen. Make sure you [...] water are not available, use alcohol-based hand sonographer. Avoid touching your eyes, nose, and mouth [...] 24 patricia (more content not included)... Normal [facility] Tobacco Screening.on 022 Fall risk assessment a) No falls within the last year [facility] Work Phone: Tobacco use status CPHS b) No [facility] Medicine Work Phone: Radiologyon 12-29-2021 XR Chest 2 Views Please click on the link to view the study images Normal [facility] Work Phone: XR Chest 2 Views Normal [facility] Medicine Work Phone: Tobacco Screening.on 022 Adult depression screening assessment No [facility] Work Phone: Fall risk assessment a) No falls within the last year [facility] Medicine Work Phone: Tobacco use status CPHS b) No [facility] Medicine Work Phone: Complete Blood Count + Diffe [facility] 11-15-2021 Basophils/100 WBC (Bld) 0.6 % 0.0 - 2.0 [id number] Work Phone: Erythrocyte distribution width (RBC) [Ratio] 18.8 % above high threshold See Below [address] Work Phone: [phone] Comment on above: Reference Range: 11. 5 - 14.5 Hematocrit (Bld) [Volume fraction] 31.8 % below low threshold See Below [address] Work Phone: [phone] Comment on above: Reference Range: 36. 0 - 46.0 Hemoglobin (Bld) [Mass/Vol] 10.5 g/dL below low threshold See Below [address] Work Phone: [phone] Comment on above: Reference Range: 12. 0 - 16.0 Lymphocytes/100 WBC (Bld) 14.5 % See Below [address] Work Phone: [phone] Comment on above: Reference Range: 13. 0 - 44.0 MCHC (RBC) [Mass/Vol] 33.0 g/dL See Below [address] Work Phone: [phone] Comment on above: Reference Range: 32. 0 - 36.0 MCV (RBC) [Entitic vol] 86 fL 80 - [address] Work Phone: [phone] Monocytes/100 WBC (Bld) 7.7 % 2.0 - 10.[address] Work Phone: [phone] Neutrophils/100 WBC (Bld) 72.8 % See Below [address] Work Phone: [phone] Comment on above: Reference Range: 40. 0 - 80.0 Platelets (Bld) [#/Vol] 402 10*3/uL 150 - [address] Work Phone: RBC (Bld) [#/Vol] 3.72 {x10E12/L} below low threshold See Below [address] Work Phone: Comment on above: Reference Range: 4.0 0 - 5.20 WBC (Bld) [#/Vol] 8.4 10*3/uL 4.4 - 11.[address] Work Phone: Complete Blood Count + Differential 0.00 {x10E9/L} See Below [address] Work Phone: Comment on above: Reference Range: 0.0 0 - 0.10 Complete Blood Count + Differential 0.40 {x10E9/L} See Below [address] Work Phone: Comment on above: Reference Range: 0.0 0 - 0.70 Complete Blood Count + Differential 0.60 {x10E9/L} See Below [address] Work Phone: Comment on above: Reference Range: 0.1 0 - 1.00 Complete Blood Count + Differential 1.20 {x10E9/L} See Below [address] Work Phone: Comment on above: Reference Range: 1.2 0 - 4.80 Complete Blood Count + Differential 6.20 {x10E9/L} See Below [address] Work Phone: Comment on above: Reference Range: 1.2 0 - 7.70 Percent differential counts (%) should be interpreted in the context of the absolute cell counts (cells/L). Complete Blood Count + Differential 4.4 % 0.0 - 6.[address] Work Phone: Complete Blood Count + Differential 0.1 {/100_WBC} [address] Work Phone: Coronavirus 2019 RNA by PCR, Symptomaticon 11-15-2021 Date and time of symptom onset [id number] Work Phone: Coronavirus 2019 RNA by PCR, Symptomatic Not detected Normal See Below [address] Work Phone: Comment on above: SOURCE: Nasal, Nasop haryngealReference Range: Not Detected.This test has received FDA Emergency Use Authorization (EUA) and has been verified by [facility]. This test is only authorized for the duration of time that circumstances exist to justify the authorization of the emergency use of in vitro diagnostic tests for the detection of SARS-CoV-2 virus and/or diagnosis of COVID-19 infection under section 564(b)(1) of the Act, 21 U.S.C. 360bbb-3(b)(1), unless the authorization is terminated or revoked sooner. [facility] is certified under CLIA-88 as qualified to perform high complexity testing. Testing is performed in the [facility] laboratory located at [address] [place] [address].SARS-CoV-2/Flu/RSV Multiplex Test: Fact sheet for providers: https://www.fda.gov/media/816385/downloadFact sheet for patients: https://www.fda.gov/media/398730/download Laboratory - Chemistry and C hemistry - challengeon 11-15-2021 Anion gap [Moles/Vol] 13 mmol/L 10 - 20 MG- OBGYN[address] Work Phone: [phone] Calcium [Mass/Vol] 8.9 mg/dL 8.6 - 10.3 MG-OBG N[address] Work Phone: [phone] Chloride [Moles/Vol] 106 mmol/L 98 - 107 MG-O BGYN[address] Work Phone: [phone] CO2 [Moles/Vol] 23 mmol/L 21 - 32 MG-OBGYN[address] Work Phone: [phone] Creatinine [Mass/Vol] 0.59 mg/dL See Below MG- OBGYN[address] Work Phone: [phone] Comment on above: Reference Range: 0.5 0 - 1.05 Glucose [Mass/Vol] 83 mg/dL 74 - 99 MG-OBG N[address] Work Phone: Potassium [Moles/Vol] 3.8 mmol/L 3.5 - 5.3 MG- OBGYN-[address] Work Phone: Sodium [Moles/Vol] 138 mmol/L 136 - 145 MG-OBG YN-[address] Work Phone: Urea nitrogen [Mass/Vol] 14 mg/dL 6 - 23 [id number]-Stb[address] Work Phone: Laboratory - Coagulationon 0 11-15-2021 INR Coag (PPP) [Relative time] 1.1 {INR} 0.9 - 1.1 [id number] Work Phone: PT Coag (PPP) [Time] 12.4 s 9.8 - 13.4 MG-O BGYN-[address] Work Phone: Comment on above: Note new reference kiya eddy as of 09/12/2021 at 10:00am. No Panel Informationon 11-15 >90 >90 [id number]-Ujx[address] Work Phone: Comment on above: CALCULATIONS OF ANN-MARIE MATED GFR ARE PERFORMED USING THE 2020 CKD-EPI STUDY REFIT EQUATION WITHOUT THE RACE VARIABLE FOR THE IDMS-TRACEABLE CREATININE METHODS.https://jasn.asnjournals.org/content//A SN.1435898127 http://UHMUSEPRDAIO0 1:80 80/musescripts/museweb.d ll?RetrieveTestByDateTim e?TucbkhrKH=[id number]&Da te=11-15-2021&Time=09%3a 40%3a00%3a00&TestType=EC G&Site=14&OutputType=PDF &Ext=PDF OC-QCFDN-Csf[address] Work Phone: "Please see physicia n note for formal interpretation confirmed by Scribe" LQ-OFLGQ-Ade[address] Work Phone: Normal GW-IFCXV-Wvx [facility] Work Phone: [phone] XU-GMZMV-Rrp [facility] Work Phone: [phone] NG-STXOX-Wlo [facility] Work Phone: [phone] NL-HOTDW-Qby [facility] Work Phone: [phone] BO-JWRQT-Uvb [facility] Work Phone: [phone] IV-HGXDL-Ptw [facility] Work Phone: [phone] LT-YGEKG-Pgy [facility] Work Phone: [phone] HN-LMFDR-Faf [facility] Work Phone: [phone] XF-WYCTS-Llu [facility] Work Phone: [phone] EY-REZKM-Egt [facility] Work Phone: [phone] KV-RTEVI-Kld [facility] Work Phone: [phone] VP-JNVTU-Xih [facility] Work Phone: [phone] AT-RSFER-Jwb [facility] Work Phone: [phone] EN-QWRQI-Ezh [facility] Work Phone: TH CT Angio Chest For PEon 0 11-15-[address] Angio Chest For PE Normal [id number]-Lce[address] Work Phone: VASC LAB Venous Duplex Ultra sound for DVTon 11-15-2021 VASC LAB Venous Duplex Ultrasound for DVT RM-IYKGK-Mjc [facility] Work Phone: /Maternal Screenon 10-15 Hemoglobin F Ql (Bld) Canceled [facility] [address] Work Phone: [phone] Hemoglobin F Ql (Bld) Negative [facility] [address] [employer] Work Phone: [phone] Laboratory - Hematology and Cell countson 11-08-2021 Erythrocyte distribution width (RBC) [Ratio] 19.8 % above high threshold See Below [facility] [address] Work Phone: [phone] Comment on above: Reference Range: 11. 5 - 14.5 Hematocrit (Bld) [Volume fraction] 29.5 % below low threshold See Below [facility] [address] [employer] Work Phone: [phone] Comment on above: Reference Range: 36. 0 - 46.0 Hemoglobin (Bld) [Mass/Vol] 9.9 g/dL below low threshold See Below [facility] [address] Work Phone: [phone] Comment on above: Reference Range: 12. 0 - 16.0 MCHC (RBC) [Mass/Vol] 33.7 g/dL See Below [facility] [address] [employer] Work Phone: [phone] Comment on above: Reference Range: 32. 0 - 36.0 MCV (RBC) [Entitic vol] 85 fL 80 - 100 [facility] [address] [employer] Work Phone: [phone] Platelets (Bld) [#/Vol] 166 10*3/uL 150 - 450 [facility] [address] [employer] Work Phone: [phone] RBC (Bld) [#/Vol] 3.49 {x10E12/L} below low threshold See Below [facility] [address] [employer] Work Phone: [phone] Comment on above: Reference Range: 4.0 0 - 5.20 WBC (Bld) [#/Vol] 16.1 10*3/uL above high threshold 4.4 - 11.3 [facility] [address] [employer] Work Phone: [phone] Rhogamon 11-08-2021 Rhogam ORDER RECD [facility] [address] Work Phone: [phone] Rhogam ORDER RECD [facility] [address] [employer] Work Phone: [phone] Laboratory - Blood bankon ABO group Nom (Bld) O [facility] [address] Work Phone: [phone] Blood group antibody screen Ql Negative [facility] [address] [employer] Work Phone: [phone] Rh immune globulin screen (Bld) [Interp] Negative [facility] [address] [employer] Work Phone: [phone] Comment on above: Review your Rh Negat anna female patient's potential need for Rh Immune Globulin (RhIg)administration. Laboratory - Hematology and Cell countson 11-07-2021 Erythrocyte distribution width (RBC) [Ratio] 19.7 % above high threshold See Below [facility] [address] [employer] Work Phone: [phone] Comment on above: Reference Range: 11. 5 - 14.5 Hematocrit (Bld) [Volume fraction] 36.1 % See Below [facility] [address] [employer] Work Phone: [phone] Comment on above: Reference Range: 36. 0 - 46.0 Hemoglobin (Bld) [Mass/Vol] 12.0 g/dL See Below [facility] [address] [employer] Work Phone: [phone] Comment on above: Reference Range: 12. 0 - 16.0 MCHC (RBC) [Mass/Vol] 33.3 g/dL See Below [facility] [address] [employer] Work Phone: [phone] Comment on above: Reference Range: 32. 0 - 36.0 MCV (RBC) [Entitic vol] 85 fL 80 - 100 [facility] [address] [employer] Work Phone: [phone] Platelets (Bld) [#/Vol] 203 10*3/uL 150 - 450 [facility] [address] [employer] Work Phone: [phone] RBC (Bld) [#/Vol] 4.26 {x10E12/L} See Below [facility] [address] [employer] Work Phone: [phone] Comment on above: Reference Range: 4.0 0 - 5.20 WBC (Bld) [#/Vol] 7.8 10*3/uL 4.4 - 11.3 [facility] [address] [employer] Work Phone: No Panel Informationon 11-07 ORDER RECD [facility] [address] [employer] Work Phone: SYPHILIS SCREENING WITH REFL EXon 11-07-2021 T. pallidum IgG+IgM IA Ql (S) Non-Reactive See Below [facility] [address] Work Phone: Comment on above: SOURCE: Reference Ra nge: NONREACTIVENo significant level of Treponema pallidum antibody detected. Repeat testing in 2 to 4 weeks may be considered if early infection or incubating syphilis infection is suspected. PREMATURE RUPTURE OF MEMBRAN Freddie 10-18-2021 PREMATURE RUPTURE OF MEMBRANE Negative Negative [facility] [address] [employer] Work Phone: No Panel Informationon 09-[address] Work Phone: Ferritin, Serumon 09-21-2021 Ferritin [Mass/Vol] 17 ug/L 8 - [address] Work Phone: Folate, Serumon 09-21-2021 Folate [Mass/Vol] 20.2 ng/mL >5.[address] Work Phone: Comment on above: Low <3.4Borderline 3 .4-5.0Normal >5.0. Biotin interference may cause falsely elevated results. Patients taking a Biotin dose of up to 5 mg/day should refrain from taking Biotin for 24 hours before sample collection. Providers may contact their local laboratory for further information. Laboratory - Blood bankon ABO group Nom (Bld) O [address] Work Phone: Rh immune globulin screen (Bld) [Interp] Negative [address] Work Phone: Comment on above: Review your Rh Negat anna female patient's potential need for Rh Immune Globulin (RhIg)administration. ABO group Nom (Bld) O [address] Work Phone: Blood group antibody investigation (P/RBC) [Interp] ANTI-D ACQUIRED [address] Work Phone: Blood group antibody screen Ql Positive [address] Work Phone: Comment on above: History of POSITIVE Antibody Screen-current specimen required within the 3 days prior to transfusion. Rh immune globulin screen (Bld) [Interp] Negative [address] Work Phone: Comment on above: Review your Rh Negat anna female patient's potential need for Rh Immune Globulin (RhIg)administration. Laboratory - Chemistry and C hemistry - challengeon 09-21-2021 Iron [Mass/Vol] 40 ug/dL 35 - [address] Work Phone: Iron binding capacity [Mass/Vol] >490 Abnormal 240 - [address] Work Phone: Comment on above: Interpret results wi th caution.One or more analytes used in this calculation is outside of the analytical measurement range. Laboratory - Hematology and Cell countson 09-21-2021 Erythrocyte distribution width (RBC) [Ratio] 15.7 % above high threshold See Below [address] Work Phone: Comment on above: Reference Range: 11. 5 - 14.5 Hematocrit (Bld) [Volume fraction] 31.8 % below low threshold See Below [address] Work Phone: Comment on above: Reference Range: 36. 0 - 46.0 Hemoglobin (Bld) [Mass/Vol] 10.2 g/dL below low threshold See Below [address] Work Phone: Comment on above: Reference Range: 12. 0 - 16.0 MCHC (RBC) [Mass/Vol] 32.1 g/dL See Below [address] Work Phone: Comment on above: Reference Range: 32. 0 - 36.0 MCV (RBC) [Entitic vol] 87 fL 80 - 100 [id number]-Dit[address] Work Phone: Platelets (Bld) [#/Vol] 254 10*3/uL 150 - 450 [id number]-Rhd[address] Work Phone: RBC (Bld) [#/Vol] 3.67 {x10E12/L} below low threshold See Below [id number]-Dvp[address] Work Phone: Comment on above: Reference Range: 4.0 0 - 5.20 WBC (Bld) [#/Vol] 12.3 10*3/uL above high threshold 4.4 - 11.3 FG-NSLCW-Kep[address] Work Phone: Laboratory - Microbiology an d Antimicrobial susceptibilityon 09-21-2021 Bacteria identified Aer cx Nom (Genital specimen) [address] Work Phone: No Panel Informationon 09-21 NOT CALC. 25 - 45 [id number]-FONJT-Hix[address] Work Phone: Comment on above: One or more analytes used in this calculation is outside of the analytical measurement range.Calculation cannot be performed. 0.0 {/100_WBC} 0.0-0.0 [id number] Work Phone: ORDER RECD [id number] Work Phone: ORDER RECD [id number] Work Phone: Path Review Immunohematology on 09-21-2021 Path Review Immunohematology X.HE [id number] Work Phone: Comment on above: By [...] IgG+IgM IA Ql (S) Non-Reactive See Below [address] Work Phone: Comment on above: SOURCE: Reference Ra nge: NONREACTIVENo significant level of Treponema pallidum antibody detected. Repeat testing in 2 to 4 weeks may be considered if early infection or incubating syphilis infection is suspected. Vitamin B12, Serumon 021 Cobalamin (Vitamin B12) [Mass/Vol] 291 pg/mL 211 - [address] Work Phone: Coronavirus 2019 RNA by PCR, Screening Asymptomticon 09-20-2021 Coronavirus 2019 RNA by PCR, Screening Asymptomtic Not detected Normal See Below [facility] [address] Work Phone: Comment on above: SOURCE: Nasal, Nasop haryngealReference Range: Not Detected.This test has received FDA Emergency Use Authorization (EUA) and has been verified by [facility]. This test is only authorized for the duration of time that circumstances exist to justify the authorization of the emergency use of in vitro diagnostic tests for the detection of SARS-CoV-2 virus and/or diagnosis of COVID-19 infection under section 564(b)(1) of the Act, 21 U.S.C. 360bbb-3(b)(1), unless the authorization is terminated or revoked sooner. [facility] is certified under CLIA-88 as qualified to perform high complexity testing. Testing is performed in the [facility] laboratory located at [address] [place] [address].SARS-CoV-2/Flu/RSV Multiplex Test: Fact sheet for providers: https://www.fda.gov/media/851765/downloadFact sheet for patients: https://www.fda.gov/media/419025/download GC + Chlamydia By Amplified Detectionon 09-20-2021 C. trachomatis rRNA JACLYN+probe Ql (Unsp spec) Not detected See Below [facility][note 3]nd [address] [employer] Work Phone: [phone] Comment on above: Reference Range: NOT DETECTED N. gonorrhoeae rRNA JACLYN+probe Ql (Unsp spec) Not detected See Below [facility][note 3]nd [address] [employer] Work Phone: [phone] Comment on above: SOURCE: UrineReferen ce Range: NOT DETECTED Laboratory - Blood bankon ABO group Nom (Bld) [facility][note 3]nd [address] [employer] Work Phone: [phone] Blood group antibody investigation (P/RBC) [Interp] ANTI-D [facility] [address] [employer] Work Phone: [phone] Comment on above: ANTI-D DUE TO RHOGAM Blood group antibody screen Ql Positive [facility][note 3]nd [facility] [employer] Work Phone: [phone] Rh immune globulin screen (Bld) [Interp] Negative [facility][note 3]nd [facility] [employer] Work Phone: [phone] Comment on above: Review your Rh Negat anna female patient's potential need for Rh Immune Globulin (RhIg)administration. Laboratory - Hematology and Cell countson 09-20-2021 Erythrocyte distribution width (RBC) [Ratio] 16.8 % above high threshold See Below [facility] [employer] Work Phone: [phone] Comment on above: Reference Range: 11. 5 - 14.5 Hematocrit (Bld) [Volume fraction] 30.6 % below low threshold See Below [facility][note 3]nd [address] [employer] Work Phone: [phone] Comment on above: Reference Range: 36. 0 - 46.0 Hemoglobin (Bld) [Mass/Vol] 9.9 g/dL below low threshold See Below [facility][note 3]nd [address] [employer] Work Phone: [phone] Comment on above: Reference Range: 12. 0 - 16.0 MCHC (RBC) [Mass/Vol] 32.4 g/dL See Below [facility] [employer] Work Phone: [phone] Comment on above: Reference Range: 32. 0 - 36.0 MCV (RBC) [Entitic vol] 83 fL 80 - 100 [facility] [employer] Work Phone: [phone] Platelets (Bld) [#/Vol] 266 10*3/uL 150 - 450 [facility] [employer] Work Phone: [phone] RBC (Bld) [#/Vol] 3.71 {x10E12/L} below low threshold See Below [facility] [address] [employer] Work Phone: [phone] Comment on above: Reference Range: 4.0 0 - 5.20 WBC (Bld) [#/Vol] 12.4 10*3/uL above high threshold 4.4 - 11.3 [facility] [employer] Work Phone: [phone] Urinalysison 09-20-2021 Color (U) Straw See Below [facility] [employer] Work Phone: [phone] Comment on above: Reference Range: STR AW,YELLOW Glucose Ql (U) Negative NEGATIVE [facility] [employer] Work Phone: [phone] Ketones Ql (U) Negative NEGATIVE [facility] [employer] Work Phone: [phone] Leukocyte esterase Test strip Ql (U) Negative NEGATIVE [facility] [address] [employer] Work Phone: [phone] pH (U) 7.0 [pH] 5.0 - 8.0 [facility] [employer] Work Phone: [phone] Protein (U) [Mass/Vol] Negative NEGATIVE [facility] [employer] Work Phone: [phone] RBC (U) [#/Vol] MODERATE(2+) Abnormal NEGATIVE [facility] [employer] Work Phone: [phone] Specific gravity (U) [Rel density] 1.009 1 See Below [facility] [employer] Work Phone: [phone] Comment on above: Reference Range: 1.0 05 - 1.035 Urinalysis Negative NEGATIVE [facility] [address] Work Phone: [phone] Urinalysis <2.0 0.0 - 1.9 [facility] [employer] Work Phone: [phone] Urinalysis CLEAR CLEAR [facility] [address] [employer] Work Phone: [phone] Urinalysis, Microscopicon Urinalysis, Microscopic 1+ [facility] [employer] Work Phone: [phone] Urinalysis, Microscopic 1 {/HPF} 0-5 [facility] [employer] Work Phone: [phone] Urinalysis, Microscopic None 0-5 [facility] [address] [employer] Work Phone: [phone] No Panel Informationon 08-24 SEE BELOW [facility] [employer] Work Phone: [phone] Comment on above: Diagnostics with glu cose loading dose of 100 g. Reference values from [place]. Diabetes Care 2015;38(Suppl.1):S8-S16. 90 mg/dL <140 [facility] [employer] Work Phone: [phone] mg/dL <155 [facility] [address] [employer] Work Phone: [phone] mg/dL <180 [facility] [address] [employer] Work Phone: [phone] 77 mg/dL <95 [facility] [address] [employer] Work Phone: [phone] Rhogamon 08-22-2021 Rhogam Canceled [facility] [employer] Work Phone: [phone] Glucose, 1 Hour Screen, Preg nancyon 08-21-2021 Glucose 1 Hr post 50 g glucose PO [Mass/Vol] 135 mg/dL Abnormal <135 [facility] [employer] Work Phone: [phone] Comment on above: Diagnostic value wit h glucose loading dose of 50 g. Reference values from [place]. Diabetes Care 2015;38(Suppl.1):S8-S16 Laboratory - Blood bankon ABO group Nom (Bld) [facility] [address] [employer] Work Phone: [phone] Blood group antibody screen Ql Negative [facility] [employer] Work Phone: [phone] Rh immune globulin screen (Bld) [Interp] Negative [facility] [employer] Work Phone: [phone] Comment on above: Review your Rh Negat anna female patient's potential need for Rh Immune Globulin (RhIg)administration. ABO group Nom (Bld) Canceled [facility] [address] [employer] Work Phone: [phone] Blood group antibody screen Ql Canceled [facility] [employer] Work Phone: [phone] Rh immune globulin screen (Bld) [Interp] Canceled [facility] [employer] Work Phone: [phone] Laboratory - Hematology and Cell countson 08-21-2021 Erythrocyte distribution width (RBC) [Ratio] 13.7 % See Below [facility] [employer] Work Phone: [phone] Comment on above: Reference Range: 11. 5 - 14.5 Hematocrit (Bld) [Volume fraction] 28.8 % below low threshold See Below [facility] [employer] Work Phone: [phone] Comment on above: Reference Range: 36. 0 - 46.0 Hemoglobin (Bld) [Mass/Vol] 9.5 g/dL below low threshold See Below [facility] [employer] Work Phone: [phone] Comment on above: Reference Range: 12. 0 - 16.0 MCHC (RBC) [Mass/Vol] 33.1 g/dL See Below [facility] [employer] Work Phone: [phone] Comment on above: Reference Range: 32. 0 - 36.0 MCV (RBC) [Entitic vol] 83 fL 80 - 100 [facility] [employer] Work Phone: [phone] Platelets (Bld) [#/Vol] 286 10*3/uL 150 - 450 [facility] [address] Work Phone: [phone] RBC (Bld) [#/Vol] 3.46 {x10E12/L} below low threshold See Below [facility] [employer] Work Phone: [phone] Comment on above: Reference Range: 4.0 0 - 5.20 WBC (Bld) [#/Vol] 8.9 10*3/uL 4.4 - 11.3 [facility] [address] [employer] Work Phone: [phone] Rhogamon 08-21-2021 Rhogam ORDER RECD [facility] [employer] Work Phone: [phone] Rhogam ORDER RECD [facility] [employer] Work Phone: [phone] Laboratory - Chemistry and C hemistry - challengeon 07-20-2021 Albumin BCP dye [Mass/Vol] 3.4 g/dL 3.4 - 5.0 [facility] [employer] Work Phone: [phone] ALP [Catalytic activity/Vol] 69 U/L 33 - 110 [facility] [address] [employer] Work Phone: [phone] ALT With P-5'-P [Catalytic activity/Vol] 5 U/L below low threshold 7 - 45 [facility] [employer] Work Phone: [phone] Comment on above: Patients treated wit h Sulfasalazine may generate falsely decreased results for ALT. Anion gap [Moles/Vol] 12 mmol/L 10 - 20 [facility] [address] [employer] Work Phone: [phone] AST With P-5'-P [Catalytic activity/Vol] 11 U/L 9 - 39 [facility] [address] [employer] Work Phone: [phone] Bilirubin [Mass/Vol] 0.3 mg/dL 0.0 - 1.2 [facility] [address] Work Phone: [phone] Calcium [Mass/Vol] 8.0 mg/dL below low threshold 8.6 - 10.3 [facility] [address] Work Phone: [phone] Chloride [Moles/Vol] 106 mmol/L 98 - 107 [facility] [address] Work Phone: [phone] CO2 [Moles/Vol] 21 mmol/L 21 - 32 [facility] [address] Work Phone: [phone] Creatinine [Mass/Vol] 0.51 mg/dL See Below [facility] [address] Work Phone: [phone] Comment on above: Reference Range: 0.5 0 - 1.05 Glucose [Mass/Vol] 96 mg/dL 74 - 99 [facility] [address] Work Phone: [phone] Potassium [Moles/Vol] 3.7 mmol/L 3.5 - 5.3 [facility] [address] Work Phone: [phone] Protein [Mass/Vol] 6.5 g/dL 6.4 - 8.2 [facility] [address] Work Phone: [phone] Sodium [Moles/Vol] 135 mmol/L below low threshold 136 - 145 [facility] [address] Work Phone: [phone] Urea nitrogen [Mass/Vol] 11 mg/dL 6 - 23 [facility] [address] Work Phone: [phone] No Panel Informationon 07-20 >60 >60 [facility] [address] Work Phone: [phone] Comment on above: CALCULATIONS OF ANN-MARIE MATED GFR ARE PERFORMED USING THE MDRD STUDY EQUATION FOR THE IDMS-TRACEABLE CREATININE METHODS. CLIN CHEM 2007;53:766-72 [facility] Venous Duplex Ultra sound for DVTon 07-20-2021 [facility] Venous Duplex Ultrasound for DVT [facility] [address] Work Phone: No Panel Informationon 06-26 Normal [facility] [address] Work Phone: Please click on the link to view the study images Normal [facility] [address] Work Phone: Coronavirus 2019 RNA by PCR, Symptomaticon 06-15-2021 Date and time of symptom onset [id number] 1 [facility] [address] Work Phone: [phone] Coronavirus 2019 RNA by PCR, Symptomatic Detected Abnormal See Below [facility] [address] Work Phone: Comment on above: SOURCE: Nasal, [...] make patient management decisions.Fact sheet for providers: https://www.fda.gov/media/421707/downloadFact sheet for patients: https://www.fda.gov/media/350651/downloadThis test has received FDA Emergency Use Authorization (EUA) and has been verified by [facility] ([facility]). This test is only authorized for the duration of time that circumstances exist to justify the authorization of the emergency use of in vitro diagnostic tests for the detection of SARS-CoV-2 virus and/or diagnosis of COVID-19 infection under section 564(b)(1) of the Act, 21 U.S.C. 360bbb-3(b)(1), unless the authorization is terminated or revoked sooner. [facility] is certified under CLIA-88 as qualified to perform high complexity testing. Testing is performed in the [facility] laboratories located at [address] [place] [address]. Cult, Urineon 05-01-2021 Bacteria identified Cx Nom (U) [facility][note 3]nd [address] Work Phone: GC + Chlamydia By Amplified Detectionon 05-01-2021 C. trachomatis rRNA JACLYN+probe Ql (Unsp spec) Negative Negative [facility] [address] Work Phone: Comment on above: The APTIMA Combo 2 a ssay is FDA-approved for Chlamydia trachomatis and Neisseria gonorrhoeae testing on female endocervical and vaginal swabs, ThinPrep liquid pap samples, male urine samples and urethral swabs. Performance characteristics for Chlamydia trachomatis and Neisseria gonorrhoeae testing on specific vwd-LSI-rqbnmqvf sample types (female urine samples) have been validated by [facility]. This laboratory is certified by CLIA to perform high complexity testing. Samples from all other sites are not validated for this method. N. gonorrhoeae rRNA JACLYN+probe Ql (Unsp spec) Negative Negative [facility] [address] Work Phone: Comment on above: SOURCE: Urine The AP AUREA Combo 2 assay is FDA-approved for Chlamydia trachomatis and Neisseria gonorrhoeae testing on female endocervical and vaginal swabs, ThinPrep liquid pap samples, male urine samples and urethral swabs. Performance characteristics for Chlamydia trachomatis and Neisseria gonorrhoeae testing on specific esn-YDT-vdpnkqfg sample types (female urine samples) have been validated by [facility]. This laboratory is certified by CLIA to perform high complexity testing. Samples from all other sites are not validated for this method. HIV 1/2 ANTIGEN/ANTIBODY SCR EEN WITH REFLEX TO CONFIRMATIONon 05-01-2021 HIV 1+2 Ab Qn (S) Non-Reactive See Below [facility] [address] Work Phone: Comment on above: SOURCE: Reference Ra nge: NONREACTIVE HIV Ag/Ab screen is performed using the [employer] HIV Ag/Ab Combo assay which detects the presence of HIV p24 antigen as well as antibodies to HIV-1 (Group M and O) and HIV-2..No laboratory evidence of HIV infection. If acute HIV infection is suspected, consider testing for HIV RNA by PCR (viral load). Hepatitis B Surface Antigeno n 05-01-2021 Hepatitis B Surface Antigen Non-Reactive See Below [place] [address] [employer] Work Phone: [phone] Comment on above: SOURCE: Reference Ra wolf: NONREACTIVE Biotin interference may cause falsely decreased results. Patients taking a Biotin dose of up to 5 mg/day should refrain from taking Biotin for 24 hours before sample collection. Providers may contact their local laboratory for further information. SOURCE: Reference Ra whitneye: NONREACTIVE Results from patients taking biotin supplements or receiving high-dose biotin therapy should be interpreted with caution due to possible interference with this test. Providers may contact their local laboratory for further information. Laboratory - Blood bankon ABO group Nom (Bld) O [place] [address] [employer] Work Phone: [phone] Blood group antibody screen Ql Negative [place] [address] [address] Work Phone: [phone] Rh immune globulin screen (Bld) [Interp] Negative [place] [address] [employer] Work Phone: [phone] Comment on above: Review your Rh Negat anna female patient's potential need for Rh Immune Globulin (RhIg)administration. Laboratory - Cytologyon 04-13 Cytology report Cyto stain.thin prep Doc (Cvx/Vag) [address] Work Phone: [phone] Laboratory - Hematology and Cell countson 05-01-2021 Erythrocyte distribution width (RBC) [Ratio] 13.6 % See Below [place] [address] [employer] Work Phone: [phone] Comment on above: Reference Range: 11. 5 - 14.5 Hematocrit (Bld) [Volume fraction] 33.6 % below low threshold See Below [place] [address] [employer] Work Phone: [phone] Comment on above: Reference Range: 36. 0 - 46.0 Hemoglobin (Bld) [Mass/Vol] 11.5 g/dL below low threshold See Below [place] [address] [employer] Work Phone: [phone] Comment on above: Reference Range: 12. 0 - 16.0 MCHC (RBC) [Mass/Vol] 34.3 g/dL See Below [facility][note 3]nd [employer] Work Phone: [phone] Comment on above: Reference Range: 32. 0 - 36.0 MCV (RBC) [Entitic vol] 87 fL 80 - 100 [facility][note 3]nd [facility] [employer] Work Phone: [phone] Platelets (Bld) [#/Vol] 277 10*3/uL 150 - 450 [facility][note 3]nd [employer] Work Phone: [phone] RBC (Bld) [#/Vol] 3.86 {x10E12/L} below low threshold See Below [facility][note 3]nd [employer] Work Phone: [phone] Comment on above: Reference Range: 4.0 0 - 5.20 WBC (Bld) [#/Vol] 8.3 10*3/uL 4.4 - 11.3 [facility] [employer] Work Phone: [phone] No Panel Informationon 05-01 NONE [facility][note 3]nd [employer] Work Phone: [phone] Rubella IgG Antibodyon 05-01 Rubella virus IgG IA Ql Positive [facility] [employer] Work Phone: [phone] Comment on above: SOURCE: INTERPRETATI VE COMMENT [...] IA Ql (S) Non-Reactive See Below [facility] [employer] Work Phone: Comment on above: SOURCE: Reference Ra nge: NONREACTIVENo significant level of Treponema pallidum antibody detected. Repeat testing in 2 to 4 weeks may be considered if early infection or incubating syphilis infection is suspected. Tobacco Screening.on 021 Fall risk assessment a) No falls within the last year [facility] Work Phone: Tobacco use status CPHS b) No [facility] Work Phone: [place]CG, [place] [address] m[IU]/mL Abnormal [facility] [employer] Work Phone: Comment on above: Low-level positive [...] HCG measurement is performed using the [employer] Access Immunoassay which detects intact HCG and free beta HCG subunit. This test is not indicated for use as a tumor marker. HCG testing is performed using a different test methodology at [facility] than other [facility]. Direct result comparison should only be made within the same method. REF VALUESNON FEMALE <5MALES <5 HCG, [place] [address] m[IU]/mL Abnormal [facility] [place] [employer] Work Phone: Comment on above: Low-level positive [...] HCG measurement is performed using the [employer] Access Immunoassay which detects intact HCG and free beta HCG subunit. This test is not indicated for use as a tumor marker. HCG testing is performed using a different test methodology at [facility] than other [facility]. Direct result comparison should only be made within the same method. REF VALUESNON FEMALE <5MALES <5 IO HCG, Urine Test on 03-20-2021 HCG ( test) Ql (U) Positive [facility] [employer] Work Phone: [phone] LMPon 03-20-2021 Last menstrual period start date 13Jan2021 [facility] [employer] Work Phone: [phone] Anti-Thyroglobulin ABon 02-0 Thyroglobulin Ab Qn 22.7 {IU/mL} above high threshold 0.0-4.0 [facility] Work Phone: Comment on above: INTERPRETIVE INFORMA TION: Thyroglobulin Antibody A value of 4.0 IU/mL or less indicates a negative result for thyroglobulin antibodies.The Thyroglobulin Antibody assay is being performed using the [employer] Access DxI method.Performed By: [address] [place] [id number] Director: Michelle Jo MD Ordering Provider: Pam SAWYER [address] MISCELLANEOUS TESTon 021 MISCELLANEOUS TEST thyroid cascade profile [facility] Work Phone: Comment on above: Ordering Provider: Pam SAWYER [address] MISCELLANEOUS TEST SEE BELOW [facility] Work Phone: Comment on above: Thyroid Gilman Prof ile TEST NAME RESULT UNITS REFERENCE INTERVALTSH 1.660 uIU/mL 0.450-4.500 No apparent thyroid disorder. Additional testing not indicated. Inrare instances, Secondary Hypothyroidism as well as SubclinicalHypothyroidism have been reported in some patients with normal TSHvalues. TEST PERFORMED AT: [facility] [address] Ordering Provider: Pam SAWYER [address] Thyroidon 11-16-2020 TSH Qn 1.61 {mIU/L} See Below [facility] Work Phone: Comment on above: Reference Range: 0.4 4 - 3.98 TSH testing is performed using different testing methodology at [facility] than at other [facility]. Direct result comparisons should only be made within the same method. Thyroxine, Serum (T4)on T4 [Mass/Vol] 11.0 ug/dL 4.5 - 11.1 [facility] Work Phone: Comment on above: Ordering Provider: Pam SAWYER [address] Triiodothyronine, Level (T3) on 11-16-2020 T3 [Mass/Vol] 156 ng/dL 80 - 210 [facility] Work Phone: Comment on above: Ordering Provider: Pam SAWYER [address] CBCon 10-31-2020 ABSOLUTE BAS 0.1 10*3/uL Normal 0.0-0.2 [facility] Comment on above: Performed By: #### D DIMER, CHEM7F, ACBC #### Testing performed at [address] [address] ABSOLUTE EOS 0.10 10*3/uL Normal 0.0-0.7 [facility] Comment on above: Performed By: #### D DIMER, CHEM7F, ACBC #### Testing performed at [address] [address] ABSOLUTE NEUTROPHIL COUNT 4.0 10*3/uL Normal 1.4-6.5 [facility] Comment on above: Performed By: #### D DIMER, CHEM7F, ACBC #### Testing performed at [address] [address] Basophils/100 WBC (Bld) 1.1 % Normal 0.0-2.0 [facility] Comment on above: Performed By: #### D DIMER, CHEM7F, ACBC #### Testing performed at [address] [address] DTYPE AUTO DIFF Normal [facility] Comment on above: Performed By: #### D DIMER, CHEM7F, ACBC #### Testing performed at [address] [address] Eosinophils/100 WBC (Bld) 1.3 % Normal 0.0-11.0 [facility] Comment on above: Performed By: #### D DIMER, CHEM7F, ACBC #### Testing performed at [address] [address] Lymphocytes (Bld) [#/Vol] 1.10 10*3/uL Low 1.2-3.4 [facility] Comment on above: Performed By: #### D DIMER, CHEM7F, ACBC #### Testing performed at [address] [address] Lymphocytes/100 WBC (Bld) 19.2 % Low 20.0-55.0 [facility] Comment on above: Performed By: #### D DIMER, CHEM7F, ACBC #### Testing performed at [address] [address] Monocytes (Bld) [#/Vol] 0.4 10*3/uL Normal 0.0-0.7 [facility] Comment on above: Performed By: #### D DIMER, CHEM7F, ACBC #### Testing performed at [address] [address] Monocytes/100 WBC (Bld) 7.6 % Normal 0.0-10.0 [facility] Comment on above: Performed By: #### D DIMER, CHEM7F, ACBC #### Testing performed at [address] [address] Neutrophils/100 WBC (Bld) 70.8 % Normal 37.0-75.0 [facility] Comment on above: Performed By: #### D DIMER, CHEM7F, ACBC #### Testing performed at [address] [address] Erythrocyte distribution width (RBC) [Ratio] 13.5 % Normal 11.5-14.5 [facility] Comment on above: Performed By: #### D DIMER, CHEM7F, ACBC #### Testing performed at [address] [address] Hematocrit (Bld) [Volume fraction] 37.4 % Normal 36.0-48.0 [facility] Comment on above: Performed By: #### D DIMER, CHEM7F, ACBC #### Testing performed at [address] [address] Hemoglobin (Bld) [Mass/Vol] 12.5 g/dL Normal 12.0-16.0 [facility] Comment on above: Performed By: #### D DIMER, CHEM7F, ACBC #### Testing performed at [address] [address] MCH (RBC) [Entitic mass] 28.7 pg Normal 26.0-35.0 [facility] Comment on above: Performed By: #### D DIMER, CHEM7F, ACBC #### Testing performed at [address] [address] MCHC (RBC) [Mass/Vol] 33.4 g/dL Normal 27.0-37.0 [facility] [place] Comment on above: Performed By: #### D DIMER, CHEM7F, ACBC #### Testing performed at [address] [address] MCV (RBC) [Entitic vol] 85.9 fL Normal 80.0-100.0 [facility] Comment on above: Performed By: #### D DIMER, CHEM7F, ACBC #### Testing performed at [address] [address] Platelet mean volume (Bld) [Entitic vol] 7.4 fL Normal 7.4-11.0 [facility] Comment on above: Performed By: #### D DIMER, CHEM7F, ACBC #### Testing performed at [address] [address] Platelets (Bld) [#/Vol] 305 10*3/uL Normal 130.0-400.0 [facility] Comment on above: Performed By: #### D DIMER, CHEM7F, ACBC #### Testing performed at [address] [address] RBC (Bld) [#/Vol] 4.35 10*6/uL Normal 4.0-5.4 [facility] Comment on above: Performed By: #### D DIMER, CHEM7F, ACBC #### Testing performed at [address] [address] WBC (Bld) [#/Vol] 5.6 10*3/uL Normal 3.6-11.0 [facility] Comment on above: Performed By: #### D DIMER, CHEM7F, ACBC #### Testing performed at [facility] [address] [facility] [address] CBC, EDIF, PLATELETon 2020 ABSOLUTE BASOPHIL COUNT 0.1 10*3/uL 0 - 0.2 10*3/uL [facility] Basophils/100 WBC (Bld) 1.1 % 0 - 2 % [facility] Differential cell count method Nom (Bld) AUTO DIFF % [facility] Eosinophils (Bld) [#/Vol] 0.10 10*3/uL 0 - 0.7 10*3/uL [facility] Eosinophils/100 WBC (Bld) 1.3 % 0 - 11 % [facility] Erythrocyte distribution width (RBC) [Ratio] 13.5 % 11.5 - 14.5 % [facility] Hematocrit (Bld) [Volume fraction] 37.4 % 36 - 48 % [facility] Hemoglobin (Bld) [Mass/Vol] 12.5 g/dL [facility] Interpretation and review of laboratory results Abnormal [facility] Lymphocytes (Bld) [#/Vol] 1.10 10*3/uL Low 1.2 - 3.4 10*3/uL [facility] Lymphocytes/100 WBC (Bld) 19.2 % Low 20 - 55 % [facility] MCH (RBC) [Entitic mass] 28.7 pg 26 - 35 PG [facility] MCHC (RBC) [Mass/Vol] 33.4 g/dL [facility] MCV (RBC) [Entitic vol] 85.9 fL [facility] Monocytes (Bld) [#/Vol] 0.4 10*3/uL 0 - 0.7 10*3/uL [facility] Monocytes/100 WBC (Bld) 7.6 % 0 - 10 % [facility] Neutrophils (Bld) [#/Vol] 4.0 10*3/uL 1.4 - 6.5 10*3/uL [facility] Neutrophils/100 WBC (Bld) 70.8 % 37 - 75 % [facility] Platelet mean volume (Bld) [Entitic vol] 7.4 fL [facility] Platelets (Bld) [#/Vol] 305 10*3/uL 130 - 400 10*3/uL [facility] RBC (Bld) [#/Vol] 4.35 10*6/uL 4 - 5.4 10*6/uL [facility] WBC (Bld) [#/Vol] 5.6 10*3/uL 3.6 - 11 10*3/uL [facility] CHEM 7 FASTINGon 10-31-2020 Creatinine [Mass/Vol] 0.68 mg/dL Normal 0.52-1.04 [facility] [place] Comment on above: Performed By: #### D DIMER, CHEM7F, ACBC #### Testing performed at [place] [id number] EST. GFR, >60 Normal [facility] Comment on above: Performed By: #### D DIMER, CHEM7F, ACBC #### Testing performed at [place] [id number] EST. GFR,Non >60 Normal [facility] Comment on above: Performed By: #### D DIMER, CHEM7F, ACBC #### Testing performed at [place] [id number] GFR/1.73 sq M predicted among non-blacks MDRD (S/P/Bld) [Vol rate/Area] Average GFR for 20-29 years old = 116. Normal [facility] Comment on above: Result Comment: Instructor [employer]er [employer]ta Kidney disease, GFR = <60. Kidney failure, GFR = <15. The GFR estimate is not adjusted for extreme body surface area or acute process, nor has it been validated for women or ethnic groups other than and . Performed By: #### D DIMER, CHEM7F, ACBC #### Testing performed at [place] [id number] Urea nitrogen [Mass/Vol] 12 mg/dL Normal 7-20 [facility] Comment on above: Performed By: #### D DIMER, CHEM7F, ACBC #### Testing performed at [address] [address] Chloride [Moles/Vol] 103 mmol/L Normal 98-107 [facility] [place] Comment on above: Performed By: #### D DIMER, CHEM7F, ACBC #### Testing performed at [address] [address] CO2 [Moles/Vol] 29 mmol/L Normal 22-30 [facility] Comment on above: Performed By: #### D DIMER, CHEM7F, ACBC #### Testing performed at [address] [address] Glucose [Mass/Vol] 127 mg/dL High 70-100 [facility] Comment on above: Result Comment: NORMAL <100 mg/dL PREDIABETES 101-126 mg/dL DIABETES 126 mg/dL or higher Performed By: #### D DIMER, CHEM7F, ACBC #### Testing performed at [address] [address] Potassium [Moles/Vol] 3.5 mmol/L Normal 3.5-5.1 [facility] [place] Comment on above: Performed By: #### D DIMER, CHEM7F, ACBC #### Testing performed at [address] [address] Sodium [Moles/Vol] 138 mmol/L Normal 136-145 [facility] Comment on above: Performed By: #### D DIMER, CHEM7F, ACBC #### Testing performed at [address] [address] CHEM 7 (LYTES,BUN,CREA,GLUC) on 10-31-2020 Chloride [Moles/Vol] 103 mmol/L [facility] CO2 [Moles/Vol] 29 mmol/L [facility] Creatinine [Mass/Vol] 0.68 mg/dL [facility] GFR/1.73 sq M predicted among blacks MDRD (S/P/Bld) [Vol rate/Area] mL/min/{1.73_m2} ml/min/1.73s q.m [facility] GFR/1.73 sq M predicted among non-blacks MDRD (S/P/Bld) [Vol rate/Area] Average GFR for 20-29 years old = 116. [facility] Comment on above: Chronic Kidney disea se, GFR = <60. Kidney failure, GFR = <15. The GFR estimate is not adjusted for extreme body surface area or acute process, nor has it been validated for women or ethnic groups other than and . GFR/1.73 sq M predicted among non-blacks MDRD (S/P/Bld) [Vol rate/Area] mL/min/{1.73_m2} ml/min/1.73s q.m [facility] Glucose post fast [Mass/Vol] 127 mg/dL High [facility] Comment on above: NORMAL <100 mg/dL PREDIABETES 101-126 mg/dL DIABETES 126 mg/dL or higher Interpretation and review of laboratory results Abnormal [facility] Potassium [Moles/Vol] 3.5 mmol/L [facility] Sodium [Moles/Vol] 138 mmol/L [facility] Urea nitrogen [Mass/Vol] 12 mg/dL [facility] CT PE STUDYon 10-31-2020 CT PE [...] AI TECHNOLOGY: This study was processed using [email or web address]. No prior found. Current Lung [...] other acute process in the chest. Normal [facility] User, Interfaces - 10/31/2020 7:55 PM [...] AI TECHNOLOGY: This study was processed using [employer]. No prior found. Current Lung [...] acute process in the chest. [facility] IMPRESSION: No evide nt pulmonary embolism or other acute process in the chest. [facility] EXAMINATION: CT PE S TUDY HISTORY: [...] AI TECHNOLOGY: This study was processed using [employer]. No prior found. Current Lung [...] abdomen is unremarkable. No suspicious osseous lesion. [facility] D DIMERon 10-31-2020 D DIMER 1.09 mg/L FEU Critically high <0.56 [facility] Comment on above: Result Comment: If r esult is greater than the cutoff value of 0.5 mg/L then the potential for PE or DVT exists. Other conditions exist which may cause a falsely elevated level. Please correlate clinically, including radiological findings and other clinical parameters. CALLED TO AND READ BACK BY HECTOR GONZALEZ @ 0755 ON 10.31.20 BY GLS Performed By: #### D DIMER, CHEM7F, ACBC #### Testing performed at [address] [address] D-DIMER,QUANTITATIVEon 10-31 Fibrin D-dimer FEU (PPP) [Mass/Vol] 1.09 Critically high <0.56 mg/L FEU [facility] Comment on above: If result is greater than the cutoff value of 0.5 mg/L then the potential for PE or DVT exists. Other conditions exist which may cause a falsely elevated level. Please correlate clinically, including radiological findings and other clinical parameters. CALLED TO AND READ BACK BY HECTOR GONZALEZ @ 6322 ON 10.31.20 BY GLS Interpretation and review of laboratory results [facility], URINEon HCG ( test) Ql (U) Negative NEGATIVE [facility] TROPONIN I, HIGH SENSITIVITY on 10-31-2020 TROPONIN I, HIGH SENSITIVITY <2 Normal 0-12 [facility] Comment on above: Result Comment: Indeterminant: >12 to 100 pg/mL female >20 to 100 pg/mL male Indicative of myocardial injury. Serial sampling is recommended, a change of greater than or equal to 20 pg/mL is indicative of acute coronary syndrome. Performed By: #### T ROHS #### Testing performed at [address] [address] TROPONIN I, HIGH SENSITIVITY <2 0 - 12 pg/mL [facility] Comment on above: Indeterminant: >12 to 100 pg/mL female >20 to 100 pg/mL male Indicative of myocardial injury. Serial sampling is recommended, a change of greater than or equal to 20 pg/mL is indicative of acute coronary syndrome. TSHon 10-31-2020 TSH Qn 1.877 uIU/ML Normal 0.45-5.33 [facility] Comment on above: Performed By: #### T SH2 #### Testing performed at [address] [address] TSH Qn 1.877 m[IU]/L [facility] URINALYSIS, MACROon 10-31-19 Bilirubin Ql (U) SMALL Abnormal NEGATIVE [facility] Clarity (U) SLIGHTLY CLOUDY Abnormal CLEAR [facility] Color (U) PINK Abnormal YELLOW [facility] Glucose Test strip (U) [Mass/Vol] Negative NEGATIVE mg/dl [facility] Hemoglobin Ql (U) LARGE Abnormal NEGATIVE [facility] Interpretation and review of laboratory results Abnormal [facility] Ketones (U) [Mass/Vol] Negative NEGAT ANNA mg/dl [facility] Leukocyte esterase Test strip Ql (U) SMALL Abnormal NEGATIVE [facility] Nitrite Ql (U) Negative NEGATIVE [facility] pH (U) 7.0 [pH] [facility] Protein Ql (U) >300 Abnormal NEGATIVE mg/dl [facility] Specific gravity (U) [Rel density] 1.020 [facility] Urobilinogen (U) [Mass/Vol] 0.2 [facility] URINE HCG QUALon 10-31-2020 Beta HCG ( test) Ql (U) Negative Normal NEGATIVE [facility] Comment on above: Performed By: #### U MAC, UMIC, UHCGT #### Testing performed at [address] [address] URINE MACROSCOPICon 10-31-19 21 Bilirubin Ql (U) SMALL Abnormal NEGATIVE [facility] Comment on above: Performed By: #### U MAC, UMIC, UHCGT #### Testing performed at [address] [address] Clarity (U) SLIGHTLY CLOUDY Abnormal CLEAR [facility] Comment on above: Performed By: #### U MAC, UMIC, UHCGT #### Testing performed at [address] [address] Color (U) PINK Abnormal YELLOW [facility] Comment on above: Performed By: #### U MAC, UMIC, UHCGT #### Testing performed at [address] [address] Glucose Ql (U) Negative Normal NEGATIVE [facility] Comment on above: Performed By: #### U MAC, UMIC, UHCGT #### Testing performed at [address] [address] pH (U) 7.0 [pH] Normal 5.0-7.0 [facility] Comment on above: Performed By: #### U MAC, UMIC, UHCGT #### Testing performed at [address] [address] Protein (U) [Mass/Vol] mg/dL Abnormal NEGATIVE [facility] Comment on above: Performed By: #### U MAC, UMIC, UHCGT #### Testing performed at [address] [address] URINE HEMOGLOBIN LARGE Abnormal NEGATIVE [facility] Comment on above: Performed By: #### U MAC, UMIC, UHCGT #### Testing performed at [address] [address] URINE KETONE Negative Normal NEGATIVE [facility] Comment on above: Performed By: #### U MAC, UMIC, UHCGT #### Testing performed at [address] [address] URINE LEUKOTEST SMALL Abnormal NEGATIVE [facility] Comment on above: Performed By: #### U MAC, UMIC, UHCGT #### Testing performed at [address] [address] URINE NITRATES Negative Normal NEGATIVE [facility] Comment on above: Performed By: #### U MAC, UMIC, UHCGT #### Testing performed at [address] [address] URINE SPEC GRAVITY 1.020 Normal 1.010-1.025 [facility] Comment on above: Performed By: #### U MAC, UMIC, UHCGT #### Testing performed at [address] [address] Urobilinogen Qn (U) 0.2 {Sotero'U}/dL Normal 0.2-1.0 [facility] Comment on above: Performed By: #### U MAC, UMIC, UHCGT #### Testing performed at [address] [address] URINE MICROSCOPICon 10-31-19 21 Bacteria LM.HPF (Urine sed) [#/Area] 1+ Abnormal NEGATIVE [facility] Comment on above: Performed By: #### U MAC, UMIC, UHCGT #### Testing performed at [address] [address] Casts LM.LPF (Urine sed) [#/Area] NONE Normal NONE [facility] Comment on above: Performed By: #### U MAC, UMIC, UHCGT #### Testing performed at [address] [address] CRYSTAL OCCASIONAL Abnormal NONE [facility] Comment on above: Result Comment: CHANTAL PHOUS PHOSPHATES Performed By: #### U MAC, UMIC, UHCGT #### Testing performed at [address] [address] Epithelial cells LM.HPF (Urine sed) [#/Area] TOO NUMEROUS TO COUNT Normal [facility] Comment on above: Performed By: #### U MAC, UMIC, UHCGT #### Testing performed at [address] [address] Mucus Ql (Urine sed) Negative Normal NEGATIVE [facility] Comment on above: Performed By: #### U MAC, UMIC, UHCGT #### Testing performed at [address] [address] RBC (U) [#/Vol] 5 TO 10 Normal NEGATIVE [facility] Comment on above: Performed By: #### U MAC, UMIC, UHCGT #### Testing performed at [address] [address] URINE COMMENT POSSIBLY CONTAMINATE D SPECIMEN, CULTURE MUST BE ORDERED SEPARATELY IF DEEMED NECESSARY. [facility] Comment on above: Performed By: #### U MAC, UMIC, UHCGT #### Testing performed at [address] [address] WBC (U) [#/Vol] 1 TO 5 Normal NEGATIVE [facility] Comment on above: Performed By: #### U MAC, UMIC, UHCGT #### Testing performed at [address] [address] Bacteria LM.HPF (Urine sed) [#/Area] 1+ Abnormal NEGATIVE [facility] Casts LM.LPF (Urine sed) [#/Area] NONE NONE /LPF [facility] Crystals LM Nom (Urine sed) OCCASIONAL Abnormal NONE [facility] Comment on above: AMORPHOUS PHOSPHATES Epithelial cells LM Ql (Urine sed) TOO NUMEROUS TO COUNT /HPF [facility] Interpretation and review of laboratory results Abnormal [facility] Mucus Ql (Urine sed) Negative NEGATIVE [facility] RBC LM.HPF (Urine sed) [#/Area] 5 TO 10 NEGATIVE /HPF [facility] Urine sediment comments LM Juan (Urine sed) POSSIBLY CONTAMINATED SPECIMEN, CULTURE MUST BE ORDERED SEPARATELY IF DEEMED NECESSARY. [facility] WBC LM.HPF (Urine sed) [#/Area] 1 TO 5 NEGATIVE /HPF [facility] Auto Diffon 03-16-2019 Basophils (Bld) [#/Vol] 0.1 E3/mcL Normal 0.0-0.2 [facility] Comment on above: Order Comment: Order Added by Discern Expert. Performed By: #### 2 [id number] #### LIU RemHemo [address] [place] [address] Basophils/100 WBC (Bld) 1.3 % Normal 0.0-2.0 [facility] Comment on above: Order Comment: Order Added by Discern Expert. Performed By: #### 2 [id number] #### [facility] RemHemo [address] [place] [address] Eos Absolute 0.2 E3/mcL Normal 0.0-0.7 [facility] Comment on above: Order Comment: Order Added by Discern Expert. Performed By: #### 2 [id number] #### [facility] RemHemo [address] [place] [address] Eosinophils/100 WBC (Bld) 4.6 % Normal 0.0-11.0 [facility] Comment on above: Order Comment: Order Added by Discern Expert. Performed By: #### 2 [id number] #### LIU RemHemo [facility] [place] [address] Lymphocytes (Bld) [#/Vol] 1.8 E3/mcL Normal 1.2-3.4 [facility] Comment on above: Order Comment: Order Added by Discern Expert. Performed By: #### 2 [id number] #### [facility] RemHemo [address] [place] [address] Lymphocytes/100 WBC (Bld) 38.4 % Normal 20.0-55.0 [facility] Comment on above: Order Comment: Order Added by Discern Expert. Performed By: #### 2 [id number] #### LIU RemHemo [address] [place] [address] Alpine Absolute 0.3 E3/mcL Normal 0.0-0.7 [facility] Comment on above: Order Comment: Order Added by Discern Expert. Performed By: #### 2 [id number] #### LIU MuñozHemo [address] [place] [address] Monocytes/100 WBC (Bld) 7.4 % Normal 0.0-10.0 [facility] Comment on above: Order Comment: Order Added by Discern Expert. Performed By: #### 2 [id number] #### LIU RemHemo [address] [place] [address] Neutro Absolute 2.2 E3/mcL Normal 1.4-6.5 [facility] Comment on above: Order Comment: Order Added by Discern Expert. Performed By: #### 2 [id number] #### LIU MuñozHemo [address] [place] [address] Neutro Auto 48.3 % Normal 37.0-75.0 [facility] Comment on above: Order Comment: Order Added by Discern Expert. Performed By: #### 2 [id number] #### LIU RemHemo [address] [place] [address] CBC w/ Auto Diffon 9 Erythrocyte distribution width (RBC) [Ratio] 12.8 % Normal 11.5-14.5 [facility] Comment on above: Performed By: #### 2 [id number] #### LIU MuñozHemo [address] [place] [address] Hematocrit (Bld) [Volume fraction] 37.2 % Normal 36.0-48.0 [facility] Comment on above: Performed By: #### 2 [id number] #### LIU RemHemo [address] [place] [address] Hemoglobin (Bld) [Mass/Vol] 12.7 g/dL Normal 12.0-16.0 [facility] Comment on above: Performed By: #### 2 [id number] #### LIU RemHemo [address] [place] [address] MCH (RBC) [Entitic mass] 29.8 pg Normal 27.0-31.0 [facility] Comment on above: Performed By: #### 2 [id number] #### LIU RemHemo [address] [place] [address] MCHC (RBC) [Mass/Vol] 34.2 g/dL Normal 33.0-37.0 [facility] Comment on above: Performed By: #### 2 [id number] #### LIU RemHemo [address] [place] [address] MCV (RBC) [Entitic vol] 87.1 fL Normal 78.0-100.0 [facility] Comment on above: Performed By: #### 2 [id number] #### LIU RemHemo [address] [place] [address] Platelet mean volume (Bld) [Entitic vol] 7.6 fL Normal 7.4-11.0 [facility] Comment on above: Performed By: #### 2 909105 #### LIU RemHemo [address] [place] [address] Platelets (Bld) [#/Vol] 321 E3/mcL Normal 130-400 [facility] Comment on above: Performed By: #### 2 [id number] #### LIU RemHemo [address] [place] [address] RBC (Bld) [#/Vol] 4.27 E6/mcL Normal 3.90-5.40 [facility] Comment on above: Performed By: #### 2 [id number] #### LIU RemHemo [address] [place] [address] WBC (Bld) [#/Vol] 4.6 E3/mcL Normal 3.6-11.0 [facility] Comment on above: Performed By: #### 2 [id number] #### LIU RemHemo [address] [place] [address] Ferritinon 03-16-2019 Ferritin [Mass/Vol] 31.0 ng/mL Normal 8.0-150.0 [facility] Comment on above: Performed By: #### 2 [id number] #### LIU RemHemo [address] [place] [address] Free T4on 03-16-2019 Free T4 [Mass/Vol] 0.80 ng/dL Normal 0.58-1.64 [facility] Comment on above: Performed By: #### 2 136086 #### LIU RemHemo [facility] [place] [id number] Ironon 03-16-2019 Iron [Mass/Vol] 254 microgram/dL High 28-175 [facility] Comment on above: Performed By: #### 2 [id number] #### LIU RemHemo [facility] [place] [address] TSHon 03-16-2019 TSH Qn 2.47 mcIU/mL Normal 0.30-5.60 [facility] Comment on above: Performed By: #### 2 [id number] #### LIU RemHemo [facility] [place] [address] Vit B12on 03-16-2019 Cobalamin (Vitamin B12) [Mass/Vol] 360 pg/mL Normal 180-914 [facility] Comment on above: Performed By: #### 2 [id number] #### LIU RemHemo [address] [place] [address] Alpine Screenon 09-12-2018 Alpine Scr Negative Normal Neg [facility] Comment on above: Performed By: #### 2 [id number] #### LIU RemHemo [address] [place] [address] Antinuclear Antibody Screeno n 09-08-2018 TALON Direct Negative Normal Negative [facility] Comment on above: Result Comment: Perf ormed At: [facility] [address] [id number] Tommy Appiah PhD Ph:[phone] Performed By: #### 2 [id number] #### LIU RemHemo [address] [place] [address] Lab Miscellaneouson 09-08-20 18 Status See Ref Lab Report Normal [facility] Comment on above: Performed By: #### 1 [id number] #### LIU Send Outs Subsection [address] [place] [address] IgA, Quant.on 09-06-2018 IgA Quant 118 mg/dL Normal [facility] Comment on above: Result Comment: No p [...] >70 years 64 - 422 Performed At: [facility] [address] [place], [place] [id number] Tommy Appiah PhD Ph:[phone] Performed By: #### 1 [id number] #### LIU Send Outs [facility]section [address] [place] [address] Thyroid Perox.tpo Abon 09-06 TPO Ab 53 International_Unit/mL High 0-26 [facility] Comment on above: Result Comment: Perf ormed At: [address] [id number] Tommy Appiah PhD Ph:[phone] Performed By: #### 1 [id number] #### LIU Send Outs Subsection [facility] [place] [address] t-TRANSGLUTAMINASE IgAon t-Transglutaminase IgA <2 Normal 0-3 [facility] Comment on above: Result Comment: Nega tive 0 - 3 Weak Positive 4 - 10 Positive >10 Tissue Transglutaminase (tTG) has been identified as the endomysial antigen. Studies have demonstr- ated that endomysial IgA antibodies have over 99% specificity for gluten sensitive enteropathy. Performed At: [address] [id number] Tommy Appiah PhD Ph:[phone] Performed By: #### 2 [id number] #### [facility] Rem[facility]5 [place] [address] Auto Diffon 09-03-2018 Basophils (Bld) [#/Vol] 0.0 E3/mcL Normal 0.0-0.2 [facility] Comment on above: Order Comment: Order Added by Discern Expert. Performed By: #### 2 [id number] #### [facility] Rem[facility]emo [facility]5 [place] [address] Basophils/100 WBC (Bld) 0.6 % Normal 0.0-2.0 [facility] Comment on above: Order Comment: Order Added by Discern Expert. Performed By: #### 2 [id number] #### LUI [facility] [address] [place] [address] Eos Absolute 0.1 E3/mcL Normal 0.0-0.7 [facility] Comment on above: Order Comment: Order Added by Discern Expert. Performed By: #### 2 [id number] #### LIU [facility] [address] [place] [address] Eosinophils/100 WBC (Bld) 1.0 % Normal 0.0-11.0 [facility] Comment on above: Order Comment: Order Added by Discern Expert. Performed By: #### 2 [id number] #### [facility] [address] [place] [address] Lymphocytes (Bld) [#/Vol] 1.0 E3/mcL Low 1.2-3.4 [facility] Comment on above: Order Comment: Order Added by Vicky Expert. Performed By: #### 2 [id number] #### [facility] [address] [place] [address] Lymphocytes/100 WBC (Bld) 15.2 % Low 20.0-55.0 [facility] Comment on above: Order Comment: Order Added by Discern Expert. Performed By: #### 2 [id number] #### [facility] [address] [place] [address] Alpine Absolute 0.4 E3/mcL Normal 0.0-0.7 [facility] Comment on above: Order Comment: Order Added by Discern Expert. Performed By: #### 2 [id number] #### [facility]U [facility] [address] [place] [address] Monocytes/100 WBC (Bld) 7.0 % Normal 0.0-10.0 [facility] Comment on above: Order Comment: Order Added by Discern Expert. Performed By: #### 2 [id number] #### [facility]U Rem[facility] [address] [place] [address] Neutro Absolute 4.8 E3/mcL Normal 1.4-6.5 [facility] Comment on above: Order Comment: Order Added by Discern Expert. Performed By: #### 2 [id number] #### LIU MuñozHemo [address] [place] [address] Neutro Auto 76.2 % High 37.0-75.0 [facility] Comment on above: Order Comment: Order Added by Discern Expert. Performed By: #### 2 [id number] #### LIU MuñozHemo [address] [place] [address] CBC w/ Auto Diffon 8 Erythrocyte distribution width (RBC) [Ratio] 12.8 % Normal 11.5-14.5 [facility] Comment on above: Performed By: #### 2 [id number] #### LIU MuñozHemo [facility]5 [place] [address] Hematocrit (Bld) [Volume fraction] 32.5 % Low 36.0-48.0 [facility] Comment on above: Performed By: #### 2 [id number] #### LIU MuñozHemo [address] [place], [place] [id number] Hemoglobin (Bld) [Mass/Vol] 11.2 g/dL Low 12.0-16.0 [facility] Comment on above: Performed By: #### 2 [id number] #### LIU MuñozHemo [address] [place] [address] MCH (RBC) [Entitic mass] 29.9 pg Normal 27.0-31.0 [facility] Comment on above: Performed By: #### 2 [id number] #### LIU MuñozHemo [facility]5 [place] [address] MCHC (RBC) [Mass/Vol] 34.5 g/dL Normal 33.0-37.0 [facility] Comment on above: Performed By: #### 2 [id number] #### LIU MuñozHemo [address] [place] [address] MCV (RBC) [Entitic vol] 86.6 fL Normal 78.0-100.0 [facility] Comment on above: Performed By: #### 2 [id number] #### LIU Rem[facility]emo [address] [place] [address] Platelet mean volume (Bld) [Entitic vol] 7.8 fL Normal 7.4-11.0 [facility] Comment on above: Performed By: #### 2 [id number] #### LIU MuñozHemo [address] [place] [address] Platelets (Bld) [#/Vol] 259 E3/mcL Normal 130-400 [facility] Comment on above: Performed By: #### 2 [id number] #### LIU MuñozHemo [address] [place] [address] RBC (Bld) [#/Vol] 3.75 E6/mcL Low 3.90-5.40 [facility] Comment on above: Performed By: #### 2 [id number] #### LIU MuñozHemo [address] [place] [address] WBC (Bld) [#/Vol] 6.3 E3/mcL Normal 3.6-11.0 [facility] Comment on above: Performed By: #### 2 [id number] #### LIU MuñozHemo [address] [place] [address] CMPon 09-03-2018 Anion gap [Moles/Vol] 14 mmol/L Normal 10-20 [facility] Comment on above: Performed By: #### 2 [id number] #### [facility] [address] [place] [address] Albumin [Mass/Vol] 4.6 g/dL Normal 3.4-5.0 [facility] Comment on above: Performed By: #### 2 [id number] #### [facility]U [facility] [address] [place] [address] Albumin/Globulin [Mass ratio] 1.8 {ratio} Normal 1.1-1.9 [facility] Comment on above: Performed By: #### 2 [id number] #### [facility] [address] [place] [address] Alk Phos 55 Int._Unit/L Normal 33-139 [facility] Comment on above: Performed By: #### 2 [id number] #### [facility] [address] [place] [address] ALT [Catalytic activity/Vol] 6 Int._Unit/L Low 7-45 [facility] Comment on above: Performed By: #### 2 [id number] #### [facility] [address] [place] [address] AST [Catalytic activity/Vol] 11 Int._Unit/L Normal 9-39 [facility] Comment on above: Performed By: #### 2 [id number] #### [facility] [address] [place] [address] Bili Total 0.4 mg/dL Normal 0.0-1.2 [facility] Comment on above: Performed By: #### 2 [id number] #### [facility] [address] [place] [address] Calcium [Mass/Vol] 9.1 mg/dL Normal 8.5-10.7 [facility] Comment on above: Performed By: #### 2 [id number] #### [facility] [address] [place] [address] Chloride [Moles/Vol] 108 mmol/L High 98-107 [facility] Comment on above: Performed By: #### 2 [id number] #### [facility] [address] [place] [address] CO2 [Moles/Vol] 22.0 mmol/L Normal 21.0-32.0 [facility] Comment on above: Performed By: #### 2 [id number] #### [facility] [address] [place] [address] Creatinine [Mass/Vol] 0.6 mg/dL Normal 0.5-1.1 [facility] Comment on above: Performed By: #### 2 [id number] #### [facility] [address] [place] [address] Globulin (S) [Mass/Vol] 3.0 g/dL Normal 2.0-4.0 [facility] Comment on above: Performed By: #### 2 [id number] #### [facility] [address] [place] [address] Glucose [Mass/Vol] 99 mg/dL Normal 70-99 [facility] Comment on above: Performed By: #### 2 [id number] #### [facility] [address] [place] [address] Potassium [Moles/Vol] 3.6 mmol/L Normal 3.5-5.3 [facility] Comment on above: Performed By: #### 2 [id number] #### [facility] [address] [place] [address] Protein [Mass/Vol] 7.2 g/dL Normal 6.4-8.2 [facility] Comment on above: Performed By: #### 2 [id number] #### [facility] [address] [place] [address] Sodium [Moles/Vol] 140 mmol/L Normal 136-145 [facility] Comment on above: Performed By: #### 2 [id number] #### [facility] [address] [place] [address] Urea nitrogen [Mass/Vol] 8 mg/dL Normal 6-23 [facility] Comment on above: Performed By: #### 2 [id number] #### [facility] [address] [place] [address] Urea nitrogen/Creatinine [Mass ratio] 13.3 ratio Normal 5.4-30.0 [facility] Comment on above: Performed By: #### 2 [id number] #### [facility] [address] [place] [address] Free T4on 09-03-2018 Free T4 [Mass/Vol] 0.91 ng/dL Normal 0.58-1.64 [facility] Comment on above: Performed By: #### 2 [id number] #### [facility] [employer] [address] [place] [address] Lab Miscellaneouson 09-03-20 18 Test Name [id number] Normal [facility] Comment on above: Performed By: #### 1 [id number] #### LIU Send Outs Subsection [address] [place] [address] Sed Rate Automatedon 018 Sed Rate Automated 6 mm/hr Normal [facility] Comment on above: Result Comment: AGE- SPECIFIC REFERENCE RANGES FOR SEDIMENTATION RATE AUTOMATED REFERENCE RANGE - MM/HR AGE MEN WOMEN 0-2 0-2 - PUBERTY 3-13 3-13 PUBERTY - 50 YRS 0-15 0-20 > 50 YRS 0-20 0-30 Performed By: #### 1 [id number] #### LIU Hematology Manual Subsection [address] [place] [address] TSHon 09-03-2018 TSH Qn 2.46 mcIU/mL Normal 0.30-5.60 [facility] Comment on above: Performed By: #### 2 [id number] #### [facility] [employer] [address] [place] [address] eGFRon 09-03-2018 GFR/1.73 sq M predicted among non-blacks MDRD (S/P/Bld) [Vol rate/Area] mL/min/{1.73_m2} Normal [facility] Comment on above: Order Comment: Order added by Discern Expert. Performed By: #### 1 [id number] #### [facility] [place] [id number] Vital Signs Date Time Vital Sign Value Performing Clinician Facility 07-29-2025 09:00-0400 Body height 157.4 cm Tani Avery MD Work Phone: [facility] 07-29-2025 09:00-0400 Body mass index (BMI) [Ratio] 25.49 kg/m2 Tani Avery MD Work Phone: [facility] 07-29-2025 09:00-0400 Body temperature 97.7 [degF] Tani Avery MD Work Phone: [facility] 07-29-2025 09:00-0400 Body weight 63.14 kg Tani Avery MD Work Phone: [facility] 07-29-2025 09:00-0400 Diastolic blood pressure 71 mm[Hg] Tani Avery MD Work Phone: [facility] 07-29-2025 09:00-0400 Heart rate 88 /min Tani Avery MD Work Phone: [facility] 07-29-2025 09:00-0400 Respiratory rate 18 /min Tani Avery MD Work Phone: [facility] 07-29-2025 09:00-0400 SaO2% (BldA) [Mass fraction] 98 % Tani Avery MD Work Phone: [facility] 07-29-2025 09:00-0400 Systolic blood pressure 109 mm[Hg] Tani Avery MD Work Phone: [facility] 07-21-2025 09:47-0400 Body height 160 cm Chrystal Clifton PA-C Work Phone: [facility] 07-21-2025 09:47-0400 Body mass index (BMI) [Ratio] 24.62 kg/m2 Chrystal Cally PA-C Work Phone: [facility] 07-21-2025 09:47-0400 Body weight 63.05 kg Chrystal Clifton PA-C Work Phone: [facility] 07-21-2025 09:47-0400 Diastolic blood pressure 71 mm[Hg] Chrystal Clifton PA-C Work Phone: [facility] 07-21-2025 09:47-0400 Heart rate 91 /min Chrystal Clifton PA-C Work Phone: [facility] 07-21-2025 09:47-0400 Systolic blood pressure 106 mm[Hg] Chrystal Cally PA-C Work Phone: [facility] 06-22-2025 15:06-0400 Body height 160.02 cm Chrystal Cally PA Work Phone: [facility] 06-22-2025 15:06-0400 Body mass index (BMI) [Ratio] 24.5 kg/m2 Chrystal Clifton PA Work Phone: [facility] 06-22-2025 15:06-0400 Body weight 62.79 kg Chrystal Cally PA Work Phone: [facility] 06-22-2025 15:06-0400 Diastolic blood pressure 74 mm[Hg] Chrystal Cally PA Work Phone: [facility] 06-22-2025 15:06-0400 Systolic blood pressure 128 mm[Hg] Chrystal ACEVEDO Work Phone: [facility] 06-21-2025 14:20-0400 Body height 160 cm Ferny Zamora HEAD REFRIGERATION ENGINEER-CERAMIC TILER Work Phone: [facility] 06-21-2025 14:20-0400 Body mass index (BMI) [Ratio] 24.8 kg/m2 Ferny Machadounique HEAD REFRIGERATION ENGINEER-CERAMIC TILER Work Phone: [facility] 06-21-2025 14:20-0400 Body temperature 98.49 [degF] Ferny Toribio HEAD REFRIGERATION ENGINEER-CERAMIC TILER Work Phone: [facility] 06-21-2025 14:20-0400 Body weight 63.5 kg Ferny Carterunique HEAD REFRIGERATION ENGINEER-CERAMIC TILER Work Phone: [facility] 06-21-2025 14:20-0400 Diastolic blood pressure 63 mm[Hg] Ferny Rennyduane HEAD REFRIGERATION ENGINEER-CERAMIC TILER Work Phone: [facility] 06-21-2025 14:20-0400 Heart rate 75 /min Ferny Toribio HEAD REFRIGERATION ENGINEER-CERAMIC TILER Work Phone: [facility] 06-21-2025 14:20-0400 SaO2% (BldA) [Mass fraction] 98 % Ferny Toribio HEAD REFRIGERATION ENGINEER-CERAMIC TILER Work Phone: [facility] 06-21-2025 14:20-0400 Systolic blood pressure 103 mm[Hg] Ferny Zamora HEAD REFRIGERATION ENGINEER-CERAMIC TILER Work Phone: [facility] 06-09-2025 09:39-0400 Body height 160 cm Chrystal ACEVEDO-C Work Phone: [facility] 06-09-2025 09:39-0400 Body mass index (BMI) [Ratio] 24.62 kg/m2 Chrystal ACEVEDO-C Work Phone: [facility] 06-09-2025 09:39-0400 Body weight 63.05 kg Chrystal Cally PA-C Work Phone: [facility] 06-09-2025 09:39-0400 Diastolic blood pressure 69 mm[Hg] Chrystal Cally PA-C Work Phone: [facility] 06-09-2025 09:39-0400 Heart rate 83 /min Chrystal Cally PA-C Work Phone: [facility] 06-09-2025 09:39-0400 Systolic blood pressure 106 mm[Hg] Chrystal Cally PA-C Work Phone: [facility] 06-03-2025 10:00-0400 Body height 160 cm Chrystal Cally PA-C Work Phone: [facility] 06-03-2025 10:00-0400 Body mass index (BMI) [Ratio] 24.59 kg/m2 Chrystal Clifton PA-C Work Phone: [facility] 06-03-2025 10:00-0400 Body weight 62.96 kg Chrystal Cally PA-C Work Phone: [facility] 06-03-2025 10:00-0400 Diastolic blood pressure 86 mm[Hg] Chrystal Cally PA-C Work Phone: [facility] 06-03-2025 10:00-0400 Heart rate 86 /min Chrystal Cally PA-C Work Phone: [facility] 06-03-2025 10:00-0400 Systolic blood pressure 109 mm[Hg] Chrystal Cally PA-C Work Phone: [facility] 05-13-2025 14:50-0400 Body height 160.02 cm Chrystal Clifton PA Work Phone: [facility] 05-13-2025 14:49-0400 Body mass index (BMI) [Ratio] 24.3 kg/m2 Chrystal Clifton PA Work Phone: [facility] 05-13-2025 14:49-0400 Body weight 62.19 kg Chrystal Clifton PA Work Phone: [facility] 05-13-2025 14:49-0400 Diastolic blood pressure 72 mm[Hg] Chrystal Cally PA Work Phone: [facility] 05-13-2025 14:49-0400 Systolic blood pressure 111 mm[Hg] Chrystal Cally PA Work Phone: [facility] 04-30-2025 10:00-0400 Body height 160.02 cm Chrystal Clifton PA Work Phone: [facility] 04-30-2025 10:00-0400 Body mass index (BMI) [Ratio] 23.7 kg/m2 Chrystal Clifton PA Work Phone: [facility] 04-30-2025 10:00-0400 Body weight 60.78 kg Chrystal Cally PA Work Phone: [facility] 04-30-2025 10:00-0400 Diastolic blood pressure 71 mm[Hg] Chrystal Clifton PA Work Phone: [facility] 04-30-2025 10:00-0400 Systolic blood pressure 111 mm[Hg] Chrystal Cally PA Work Phone: [facility] 04-06-2025 17:08-0400 Body temperature 98 [degF] Chrystal Clifton PA Work Phone: [facility] 04-06-2025 17:08-0400 Diastolic blood pressure 75 mm[Hg] Chrystal Clifton PA Work Phone: [facility] 04-06-2025 17:08-0400 Heart rate 77 /min Chrystal Cally PA Work Phone: [facility] 04-06-2025 17:08-0400 Respiratory rate 16 /min Chrystal Cally PA Work Phone: [facility] 04-06-2025 17:08-0400 SaO2% (BldA) [Mass fraction] 100 % Chrystal Cally PA Work Phone: [facility] 04-06-2025 17:08-0400 Systolic blood pressure 107 mm[Hg] Chrystal Clifton PA Work Phone: [facility] 04-06-2025 12:51-0400 Body height 160.02 cm Chrystal Clifton PA Work Phone: [facility] 04-06-2025 12:51-0400 Body mass index (BMI) [Ratio] 24.2 kg/m2 Chrystal Cally PA Work Phone: [facility] 04-06-2025 12:51-0400 Body weight 62 kg Chrystal Clifton PA Work Phone: [facility] 04-05-2025 10:53-0400 Body height 160.02 cm Chrystal Cally PA Work Phone: [facility] 04-05-2025 10:51-0400 Body mass index (BMI) [Ratio] 24.4 kg/m2 Chrystal Cally PA Work Phone: [facility] 04-05-2025 10:51-0400 Body weight 62.59 kg Chrystal Cally PA Work Phone: [facility] 04-05-2025 10:51-0400 Diastolic blood pressure 79 mm[Hg] Chrystal Clifton PA Work Phone: [facility] 04-05-2025 10:51-0400 Systolic blood pressure 121 mm[Hg] Chrystal Cally PA Work Phone: [facility] 03-11-2025 08:03-0400 Body height 160.02 cm Chrystal Cally PA Work Phone: [facility] 03-11-2025 08:03-0400 Body mass index (BMI) [Ratio] 24.1 kg/m2 Chrystal Clifton PA Work Phone: [facility] 03-11-2025 08:03-0400 Body weight 61.8 kg Chrystal Clifton PA Work Phone: [facility] 03-11-2025 08:03-0400 Diastolic blood pressure 73 mm[Hg] Chrystal Cally PA Work Phone: [facility] 03-11-2025 08:03-0400 Heart rate 93 /min Chrystal Clifton PA Work Phone: [facility] 03-11-2025 08:03-0400 SaO2% (BldA) [Mass fraction] 98 % Chrystal Cally PA Work Phone: [facility] 03-11-2025 08:03-0400 Systolic blood pressure 106 mm[Hg] Chrystal Cally PA Work Phone: [facility] 01-05-2025 14:42-0400 Body height 160 cm Chrystal Clifton PA-C Work Phone: [facility] 01-05-2025 14:42-0400 Body mass index (BMI) [Ratio] 24.27 kg/m2 Chrystal Cally PA-C Work Phone: [facility] 01-05-2025 14:42-0400 Body weight 62.14 kg Chrystal Clifton PA-C Work Phone: [facility] 01-05-2025 14:42-0400 Diastolic blood pressure 62 mm[Hg] Chrystal Cally PA-C Work Phone: [facility] 01-05-2025 14:42-0400 Heart rate 76 /min Chrystal Cally PA-C Work Phone: [facility] 01-05-2025 14:42-0400 Systolic blood pressure 108 mm[Hg] Chrystal Cally PA-C Work Phone: [facility] 12-22-2024 09:34-0400 Body height 160.02 cm Chrystal Clifton PA Work Phone: [facility] 12-22-2024 09:34-0400 Body mass index (BMI) [Ratio] 24.5 kg/m2 Chrystal Cally PA Work Phone: [facility] 12-22-2024 09:34-0400 Body weight 62.76 kg Chrystal Clifton PA Work Phone: [facility] 12-22-2024 09:34-0400 Diastolic blood pressure 79 mm[Hg] Chrystal Clifton PA Work Phone: [facility] 12-22-2024 09:34-0400 Systolic blood pressure 124 mm[Hg] Chrystal Cally PA Work Phone: [facility] 11-24-2024 14:51-0500 Body height 160 cm Chrystal Cally PA-C Work Phone: [facility] 11-24-2024 14:51-0500 Body mass index (BMI) [Ratio] 25.23 kg/m2 Chrystal Clifton PA-C Work Phone: [facility] 11-24-2024 14:51-0500 Body weight 64.59 kg Chrystal Cally PA-C Work Phone: [facility] 11-24-2024 14:51-0500 Diastolic blood pressure 78 mm[Hg] Chrystal Clifton PA-C Work Phone: [facility] 11-24-2024 14:51-0500 Heart rate 93 /min Chrystal Cally PA-C Work Phone: [facility] 11-24-2024 14:51-0500 SaO2% (BldA) [Mass fraction] 98 % Chrystal Clifton PA-C Work Phone: [facility] 11-24-2024 14:51-0500 Systolic blood pressure 112 mm[Hg] Chrystal Clifton PA-C Work Phone: [facility] 08-06-2024 16:51-0400 Body height 160 cm Roe Newbill PA-C Work Phone: [facility] 08-06-2024 16:51-0400 Body mass index (BMI) [Ratio] 26.57 kg/m2 Roe Newbill PA-C Work Phone: [facility] 08-06-2024 16:51-0400 Body temperature 98.49 [degF] Roe Newbill PA-C Work Phone: [facility] 08-06-2024 16:51-0400 Body weight 68.04 kg Roe Newbill PA-C Work Phone: [facility] 08-06-2024 16:51-0400 Diastolic blood pressure 77 mm[Hg] Roe Newbill PA-C Work Phone: [facility] 08-06-2024 16:51-0400 Heart rate 78 /min Roe Newbill PA-C Work Phone: [facility] 08-06-2024 16:51-0400 Respiratory rate 16 /min Roe Newbill PA-C Work Phone: [facility] 08-06-2024 16:51-0400 SaO2% (BldA) [Mass fraction] 99 % Roe Newbill PA-C Work Phone: [facility] 08-06-2024 16:51-0400 Systolic blood pressure 120 mm[Hg] Roe Newbill PA-C Work Phone: [facility] 01-27-2024 13:07-0400 Body height 160.02 cm PA Chrystal Alamo PA Work Phone: [facility] 01-21-2024 09:56-0400 Body mass index (BMI) [Ratio] 30.4 kg/m2 PA Chrystalann-marie Vallejoall PA Work Phone: [facility] 01-21-2024 09:56-0400 Body weight 78.01 kg PA Chrystal Alamo PA Work Phone: [facility] 01-21-2024 09:56-0400 Diastolic blood pressure 83 mm[Hg] PA Chrystal Cally PA Work Phone: [facility] 01-21-2024 09:56-0400 Systolic blood pressure 129 mm[Hg] PA Chrystal Clifton PA Work Phone: [facility] 12-18-2023 18:38-0500 Diastolic blood pressure 70 mm[Hg] PA Chrystal Clifton PA Work Phone: [facility] 12-18-2023 18:38-0500 Heart rate 71 /min PA Chrystal Cally PA Work Phone: [facility] 12-18-2023 18:38-0500 Systolic blood pressure 120 mm[Hg] PA Chrystal Cally PA Work Phone: [facility] 12-18-2023 18:01-0500 Body height 160.02 cm PA Chrystal Clifton PA Work Phone: [facility] 12-18-2023 18:01-0500 Body mass index (BMI) [Ratio] 31.7 kg/m2 PA Chrystal Cally PA Work Phone: [facility] 12-18-2023 18:01-0500 Body weight 81.3 kg PA Chrystal Cally PA Work Phone: [facility] 12-18-2023 17:54-0500 SaO2% (BldA) [Mass fraction] 99 % PA Chrystal Cally PA Work Phone: [facility] 12-18-2023 17:53-0500 Body temperature 98.5 [degF] PA Chrystal Clifton PA Work Phone: [facility] 12-18-2023 17:53-0500 Respiratory rate 18 /min PA Chrystal Clifton PA Work Phone: [facility] 12-14-2023 09:03-0500 Body temperature 98.1 [degF] PA Chrystal Clifton PA Work Phone: [facility] 12-14-2023 09:03-0500 Diastolic blood pressure 63 mm[Hg] PA Chrystal Cally PA Work Phone: [facility] 12-14-2023 09:03-0500 Heart rate 90 /min PA Chrystal Cally PA Work Phone: [facility] 12-14-2023 09:03-0500 Respiratory rate 16 /min PA Chrystal Cally PA Work Phone: [facility] 12-14-2023 09:03-0500 Systolic blood pressure 118 mm[Hg] PA Chrystal Cally PA Work Phone: [facility] 12-14-2023 01:03-0500 SaO2% (BldA) [Mass fraction] 98 % PA Chrystal Cally PA Work Phone: [facility] 12-12-2023 15:10-0500 Body height 160.02 cm PA Chrystal Clifton PA Work Phone: [facility] 12-12-2023 15:10-0500 Body mass index (BMI) [Ratio] 34 kg/m2 PA Chrystal Clifton PA Work Phone: [facility] 12-12-2023 15:10-0500 Body weight 87.08 kg PA Chrystal Cally PA Work Phone: [facility] 12-12-2023 14:25-0500 Body mass index (BMI) [Ratio] 34.3 kg/m2 PA Chrystal Cally PA Work Phone: [facility] 12-12-2023 14:25-0500 Body weight 87.99 kg PA Chrystal Cally PA Work Phone: [facility] 12-12-2023 14:25-0500 Diastolic blood pressure 77 mm[Hg] PA Chrystal Cally PA Work Phone: [facility] 12-12-2023 14:25-0500 Systolic blood pressure 112 mm[Hg] PA Chrystal Clifton PA Work Phone: [facility] 12-05-2023 13:53-0500 Body mass index (BMI) [Ratio] 33.6 kg/m2 PA Chrystal Clifton PA Work Phone: [facility] 12-05-2023 13:53-0500 Body weight 86.18 kg PA Chrystal Cally PA Work Phone: [facility] 12-05-2023 13:53-0500 Diastolic blood pressure 72 mm[Hg] PA Chrystal Cally PA Work Phone: [facility] 12-05-2023 13:53-0500 Systolic blood pressure 104 mm[Hg] PA Chrystal Clifton PA Work Phone: [facility] 11-27-2023 22:28-0500 Heart rate 94 /min PA Chrystal Cally PA Work Phone: [facility] 11-27-2023 22:28-0500 SaO2% (BldA) [Mass fraction] 98 % PA Chrystal Cally PA Work Phone: [facility] 11-27-2023 21:32-0500 Body height 160.02 cm PA Chrystal Clifton PA Work Phone: [facility] 11-27-2023 21:32-0500 Body mass index (BMI) [Ratio] 33.8 kg/m2 PA Chrystal Clifton PA Work Phone: [facility] 11-27-2023 21:32-0500 Body weight 86.7 kg PA Chrystal Clifton PA Work Phone: [facility] 11-27-2023 20:36-0500 Body temperature 98.3 [degF] PA Chrystal Cally PA Work Phone: [facility] 11-27-2023 20:36-0500 Diastolic blood pressure 63 mm[Hg] PA Chrystal Cally PA Work Phone: [facility] 11-27-2023 20:36-0500 Systolic blood pressure 112 mm[Hg] PA Chrystal Clifton PA Work Phone: [facility] 11-14-2023 10:46-0500 Body mass index (BMI) [Ratio] 33.5 kg/m2 PA Chrystal Clifton PA Work Phone: [facility] 11-14-2023 10:46-0500 Body weight 85.89 kg PA Chrystal Clifton PA Work Phone: [facility] 11-14-2023 10:46-0500 Diastolic blood pressure 74 mm[Hg] PA Chrystal Clifton PA Work Phone: [facility] 11-14-2023 10:46-0500 Systolic blood pressure 124 mm[Hg] PA Chrystal Cally PA Work Phone: [facility] 11-06-2023 13:33-0500 Body height 160.02 cm PA Chrystal Cally PA Work Phone: [facility] 11-06-2023 13:33-0500 Body weight 85.54 kg PA Chrystal Clifton PA Work Phone: [facility] 10-30-2023 10:34-0500 Body mass index (BMI) [Ratio] 33 kg/m2 PA Chrystal Clifton PA Work Phone: [facility] 10-30-2023 10:34-0500 Body weight 84.53 kg PA Chrystal Clifton PA Work Phone: [facility] 10-30-2023 10:34-0500 Diastolic blood pressure 71 mm[Hg] PA Chrystal Cally PA Work Phone: [facility] 10-30-2023 10:34-0500 Systolic blood pressure 117 mm[Hg] PA Chrystal Clifton PA Work Phone: [facility] 10-18-2023 11:51-0500 Body temperature 98.8 [degF] PA Chrystal Clifton PA Work Phone: [facility] 10-18-2023 11:51-0500 Diastolic blood pressure 56 mm[Hg] PA Chrystal Clifton PA Work Phone: [facility] 10-18-2023 11:51-0500 Heart rate 95 /min PA Chrystal Clifton PA Work Phone: [facility] 10-18-2023 11:51-0500 Respiratory rate 16 /min PA Chrystal Cally PA Work Phone: [facility] 10-18-2023 11:51-0500 SaO2% (BldA) [Mass fraction] 96 % PA Chrystal Clifton PA Work Phone: [facility] 10-18-2023 11:51-0500 Systolic blood pressure 102 mm[Hg] PA Chrystal Clifton PA Work Phone: [facility] 10-18-2023 09:06-0500 Body height 160.02 cm PA Chrystal Cally PA Work Phone: [facility] 10-18-2023 09:06-0500 Body mass index (BMI) [Ratio] 3.2 kg/m2 PA Chrystal Cally PA Work Phone: [facility] 10-18-2023 09:06-0500 Body weight 8.16 kg PA Chrystal Cally PA Work Phone: [facility] 10-17-2023 10:10-0500 Body mass index (BMI) [Ratio] 34 kg/m2 PA Chrystal Cally PA Work Phone: [facility] 10-17-2023 10:10-0500 Body weight 84.53 kg PA Chrystal Clifton PA Work Phone: [facility] 10-17-2023 10:10-0500 Diastolic blood pressure 80 mm[Hg] PA Chrystal Clifton PA Work Phone: [facility] 10-17-2023 10:10-0500 Systolic blood pressure 121 mm[Hg] PA Chrystal Cally PA Work Phone: [facility] 10-16-2023 21:28-0500 Diastolic blood pressure 86 mm[Hg] PA Chrystal Cally PA Work Phone: [facility] 10-16-2023 21:28-0500 Heart rate 91 /min PA Chrystal Clifton PA Work Phone: [facility] 10-16-2023 21:28-0500 Systolic blood pressure 117 mm[Hg] PA Chrystal Clifton PA Work Phone: [facility] 10-16-2023 19:19-0500 Respiratory rate 19 /min PA Chrystal Cally PA Work Phone: [facility] 10-16-2023 17:51-0500 Body height 157.48 cm PA Chrystal Clifton PA Work Phone: [facility] 10-16-2023 17:51-0500 Body mass index (BMI) [Ratio] 33.3 kg/m2 PA Chrystal Cally PA Work Phone: [facility] 10-16-2023 17:51-0500 Body temperature 97.4 [degF] PA Chrystal Cally PA Work Phone: [facility] 10-16-2023 17:51-0500 Body weight 82.55 kg PA Chrystal Cally PA Work Phone: [facility] 10-16-2023 17:51-0500 SaO2% (BldA) [Mass fraction] 99 % PA Chrystal Cally PA Work Phone: [facility] 09-16-2023 15:22-0500 Body height 157.48 cm PA Chrystal Cally PA Work Phone: [facility] 09-16-2023 15:22-0500 Body mass index (BMI) [Ratio] 32.2 kg/m2 PA Chrystal Clifton PA Work Phone: [facility] 09-16-2023 15:22-0500 Body weight 79.88 kg PA Chrystal Clifton PA Work Phone: [facility] 09-16-2023 15:22-0500 Diastolic blood pressure 68 mm[Hg] PA Chrystal Cally PA Work Phone: [facility] 09-16-2023 15:22-0500 Systolic blood pressure 118 mm[Hg] PA Chrystal Clifton PA Work Phone: [facility] 08-08-2023 11:21-0400 Body height 157.48 cm PA Chrystal Clifton PA Work Phone: [facility] 08-08-2023 11:21-0400 Body mass index (BMI) [Ratio] 29 kg/m2 PA Chrystal Cally PA Work Phone: [facility] 08-08-2023 11:21-0400 Body temperature 97.8 [degF] PA Chrystal Clifton PA Work Phone: [facility] 08-08-2023 11:21-0400 Body weight 71.89 kg PA Chrystal Clifton PA Work Phone: [facility] 08-08-2023 11:21-0400 Diastolic blood pressure 70 mm[Hg] PA Chrystal Cally PA Work Phone: [facility] 08-08-2023 11:21-0400 Heart rate 78 /min PA Chrystal Cally PA Work Phone: [facility] 08-08-2023 11:21-0400 Respiratory rate 16 /min PA Chrystal Clifton PA Work Phone: [facility] 08-08-2023 11:21-0400 SaO2% (BldA) [Mass fraction] 98 % PA Chrystal Cally PA Work Phone: [facility] 08-08-2023 11:21-0400 Systolic blood pressure 116 mm[Hg] PA Chrystal Cally PA Work Phone: [facility] 07-26-2023 15:10-0400 Body mass index (BMI) [Ratio] 26.7 kg/m2 PA Chrystal Clifton PA Work Phone: [facility] 07-26-2023 15:10-0400 Body weight 68.49 kg PA Chrystal Cally PA Work Phone: [facility] 07-26-2023 15:10-0400 Diastolic blood pressure 73 mm[Hg] PA Chrystal Cally PA Work Phone: [facility] 07-26-2023 15:10-0400 Systolic blood pressure 117 mm[Hg] PA Chrystal Cally PA Work Phone: [facility] 06-26-2023 15:14-0400 Body mass index (BMI) [Ratio] 26.2 kg/m2 PA Chrystal Clifton PA Work Phone: [facility] 06-26-2023 15:14-0400 Body weight 64.86 kg PA Chrystal Cally PA Work Phone: [facility] 06-26-2023 15:14-0400 Diastolic blood pressure 69 mm[Hg] PA Chrystal Cally PA Work Phone: [facility] 06-26-2023 15:14-0400 Systolic blood pressure 116 mm[Hg] PA Chrystal Clifton PA Work Phone: [facility] 05-27-2023 13:38-0400 Body height 157.48 cm PA Chrystal Cally PA Work Phone: [facility] 05-27-2023 13:38-0400 Body mass index (BMI) [Ratio] 24.9 kg/m2 PA Chrystal Clifton PA Work Phone: [facility] 05-27-2023 13:38-0400 Body weight 61.74 kg PA Chrystal Clifton PA Work Phone: [facility] 05-27-2023 13:38-0400 Diastolic blood pressure 73 mm[Hg] PA Chrystal Cally PA Work Phone: [facility] 05-27-2023 13:38-0400 Systolic blood pressure 121 mm[Hg] CURTIS ACEVEDO Work Phone: [facility] 03-14-2023 15:04-0400 Body height 157.5 cm Alexa Lancaster HEAD REFRIGERATION ENGINEER-CERAMIC TILER Work Phone: [facility] 03-14-2023 15:04-0400 Body mass index (BMI) [Ratio] 24.14 kg/m2 Alexa Lancaster HEAD REFRIGERATION ENGINEER-CERAMIC TILER Work Phone: [facility] 03-14-2023 15:04-0400 Body weight 59.88 kg Alexa Lancaster HEAD REFRIGERATION ENGINEER-CERAMIC TILER Work Phone: [facility] 03-14-2023 15:04-0400 Diastolic blood pressure 65 mm[Hg] Alexa Lancaster HEAD REFRIGERATION ENGINEER-CERAMIC TILER Work Phone: [facility] 03-14-2023 15:04-0400 Heart rate 86 /min Alexa Munguialey HEAD REFRIGERATION ENGINEER-CERAMIC TILER Work Phone: [facility] 03-14-2023 15:04-0400 Systolic blood pressure 101 mm[Hg] Alexa Munguialey HEAD REFRIGERATION ENGINEER-CERAMIC TILER Work Phone: [facility] 12-06-2022 13:21-0500 Body height 157.48 cm Chrystal Alamo Work Phone: [facility] [address] Work Phone: 12-06-2022 13:21-0500 Body mass index (BMI) [Ratio] 23.85 kg/m2 Chrystal Alamo Work Phone: [facility] [address] Work Phone: 12-06-2022 13:21-0500 Body surface area Derived from formula 1.59 m2 Chrystal Alamo Work Phone: [facility] [address] Work Phone: 12-06-2022 13:21-0500 Body weight 59.13 kg Chrystal Alamo Work Phone: [place] [address] [address] Work Phone: 12-06-2022 13:21-0500 Diastolic blood pressure 70 mm[Hg] Chrystal Alamo Work Phone: [address] Work Phone: 12-06-2022 13:21-0500 Systolic blood pressure 108 mm[Hg] Chrystal Alamo Work Phone: [address] Work Phone: 09-24-2022 14:10-0500 Body height 157.48 cm Chrystal Alamo Work Phone: [facility] Work Phone: 09-24-2022 14:10-0500 Body mass index (BMI) [Ratio] 24.14 kg/m2 Chrystal Alamo Work Phone: [facility] Work Phone: 09-24-2022 14:10-0500 Body surface area Derived from formula 1.6 m2 Chrystal Alamo Work Phone: [facility] Work Phone: 09-24-2022 14:10-0500 Body weight 59.88 kg Chrystal Alamo Work Phone: [facility] Work Phone: 09-24-2022 14:10-0500 Diastolic blood pressure 78 mm[Hg] Chrystal Alamo Work Phone: [facility] Work Phone: 09-24-2022 14:10-0500 Heart rate 100 /min Chrystal Alamo Work Phone: [facility] Work Phone: 09-24-2022 14:10-0500 SaO2% (BldA) [Mass fraction] 97 % Chrystal Alamo Work Phone: [facility] Work Phone: 09-24-2022 14:10-0500 Systolic blood pressure 110 mm[Hg] Chrystal Alamo Work Phone: [facility] Work Phone: 03-05-2022 11:05-0400 Body height 157.48 cm Chrystal Alamo Work Phone: [place] [address] [address] Work Phone: 03-05-2022 11:05-0400 Body mass index (BMI) [Ratio] 28.4 kg/m2 Chrystal Alamo Work Phone: [place] [address] [address] Work Phone: 03-05-2022 11:05-0400 Body surface area Derived from formula 1.72 m2 Chrystal Alamo Work Phone: [place] [address] [address] Work Phone: 03-05-2022 11:05-0400 Body weight 70.42 kg Chrystal Alamo Work Phone: [place] [address] [address] Work Phone: 03-05-2022 11:05-0400 Diastolic blood pressure 78 mm[Hg] Chrystal Alamo Work Phone: [place] [address] [address] Work Phone: 03-05-2022 11:05-0400 Systolic blood pressure 118 mm[Hg] Chrystal Alamo Work Phone: [place] [address] [address] Work Phone: 02-13-2022 13:24-0400 Body height 157.48 cm Chrystal Alamo Work Phone: [facility] Work Phone: 02-13-2022 13:24-0400 Body mass index (BMI) [Ratio] 28.53 kg/m2 Chrystal Alamo Work Phone: [facility] Work Phone: 02-13-2022 13:24-0400 Body surface area Derived from formula 1.72 m2 Chrystal Alamo Work Phone: [facility] Work Phone: 02-13-2022 13:24-0400 Body weight 70.76 kg Chrystal Alamo Work Phone: [facility] Work Phone: 02-13-2022 13:24-0400 Diastolic blood pressure 62 mm[Hg] Chrystal Alamo Work Phone: [facility] Work Phone: 02-13-2022 13:24-0400 Heart rate 72 /min Chrystal Alamo Work Phone: [facility] Work Phone: 02-13-2022 13:24-0400 Systolic blood pressure 104 mm[Hg] Chrystal Alamo Work Phone: [facility] Work Phone: 01-12-2022 13:16-0400 Body height 157.48 cm Chrysatl Alamo Work Phone: [facility] Work Phone: 01-12-2022 13:16-0400 Body mass index (BMI) [Ratio] 30.18 kg/m2 Chrystal Alamo Work Phone: [facility] Work Phone: 01-12-2022 13:16-0400 Body surface area Derived from formula 1.76 m2 Chrystal Alamo Work Phone: [facility] Work Phone: 01-12-2022 13:16-0400 Body weight 74.84 kg Chrystal Alamo Work Phone: [facility] Work Phone: 01-12-2022 13:16-0400 Diastolic blood pressure 64 mm[Hg] Chrystal Alamo Work Phone: [facility] Work Phone: 01-12-2022 13:16-0400 Heart rate 100 /min Chrystal Alamo Work Phone: [facility] Work Phone: 01-12-2022 13:16-0400 Systolic blood pressure 108 mm[Hg] Chrystal Alamo Work Phone: [facility] Work Phone: 12-19-2021 13:44-0500 Body height 157.48 cm Chrystal Alamo Work Phone: [place] [address] [address] Work Phone: 12-19-2021 13:44-0500 Body mass index (BMI) [Ratio] 30.52 kg/m2 Chrystal Alamo Work Phone: [place] [address] [address] Work Phone: 12-19-2021 13:44-0500 Body surface area Derived from formula 1.77 m2 Chrystal Alamo Work Phone: [place] [address] [address] Work Phone: 12-19-2021 13:44-0500 Body weight 75.7 kg Chrystal Alamo [facility] [address] Work Phone: 12-19-2021 13:44-0500 Diastolic blood pressure 80 mm[Hg] Chrystal Alamo Work Phone: [place] [address] [address] Work Phone: 12-19-2021 13:44-0500 Systolic blood pressure 102 mm[Hg] Chrystal Alamo Work Phone: [employer] Work Phone: 11-10-2021 13:51-0500 Body height 157.48 cm Chrystal Alamo Work Phone: [place] [facility] Work Phone: 11-10-2021 13:51-0500 Body mass index (BMI) [Ratio] 35.73 kg/m2 Chrystal Alamo Work Phone: [place] [facility] Work Phone: 11-10-2021 13:51-0500 Body surface area Derived from formula 1.89 m2 Chrystal Alamo Work Phone: [place] [address] Work Phone: 11-10-2021 13:51-0500 Body temperature 98.6 [degF] Chrystal Alamo Work Phone: [place] [address] Work Phone: 11-10-2021 13:51-0500 Body weight 88.6 kg Chrystal Alamo Work Phone: [place] [address] Work Phone: 11-10-2021 13:51-0500 Diastolic blood pressure 80 mm[Hg] Chrystal Alamo Work Phone: [place] [address] Work Phone: 11-10-2021 13:51-0500 Systolic blood pressure 120 mm[Hg] Chrystal Alamo Work Phone: [place] [address] Work Phone: 11-09-2021 13:41-0500 Body temperature 98.78 [degF] Chrystal Alamo Other Phone: [facility] 11-09-2021 13:41-0500 Diastolic blood pressure 76 mm[Hg] Chrystal Alamo Other Phone: [facility] 11-09-2021 13:41-0500 Heart rate 104 /min Chrystal Alamo Other Phone: [facility] 11-09-2021 13:41-0500 Respiratory rate 18 /min Chrystal Alamo Other Phone: [facility] 11-09-2021 13:41-0500 SaO2% (BldA) [Mass fraction] 99 % Chrystal Alamo Other Phone: [facility] 11-09-2021 13:41-0500 Systolic blood pressure 129 mm[Hg] Chrystal Alamo Other Phone: [facility] 10-31-2021 14:32-0500 Body height 157.48 cm Chrystal Alamo Work Phone: [employer] Work Phone: 10-31-2021 14:32-0500 Body mass index (BMI) [Ratio] 37.18 kg/m2 Chrystal Alamo Work Phone: [place] [employer] Work Phone: 10-31-2021 14:32-0500 Body surface area Derived from formula 1.92 m2 Chrystal Alamo Work Phone: [place] [employer] Work Phone: 10-31-2021 14:32-0500 Body temperature 96.8 [degF] Chrystal Alamo Work Phone: [place] [employer] Work Phone: 10-31-2021 14:32-0500 Body weight 92.2 kg Chrystal Alamo Work Phone: [employer] Work Phone: 10-31-2021 14:32-0500 Diastolic blood pressure 72 mm[Hg] Chrystal Vallejoall Work Phone: [place] [address] [address] Work Phone: 10-31-2021 14:32-0500 Systolic blood pressure 120 mm[Hg] Chrystal Alamo Work Phone: [place] [address] [address] Work Phone: 10-24-2021 14:04-0500 Body height 157.48 cm Chrystal Vallejoall Work Phone: [place] [address] [address] Work Phone: 10-24-2021 14:04-0500 Body mass index (BMI) [Ratio] 36.85 kg/m2 Chrystal Alamo Work Phone: [place] [address] [address] Work Phone: 10-24-2021 14:04-0500 Body surface area Derived from formula 1.92 m2 Chrystal Alamo Work Phone: [place] [address] [address] Work Phone: 10-24-2021 14:04-0500 Body temperature 97.1 [degF] Chrystal Alamo Work Phone: [place] [address] [address] Work Phone: 10-24-2021 14:04-0500 Body weight 91.4 kg Chrystal Alamo Work Phone: [place] [address] [address] Work Phone: 10-24-2021 14:04-0500 Diastolic blood pressure 76 mm[Hg] Chrystal Vallejoall Work Phone: [place] [address] [address] Work Phone: 10-24-2021 14:04-0500 Systolic blood pressure 120 mm[Hg] Chrystal Vallejoall Work Phone: [place] [address] [address] Work Phone: 09-29-2021 13:00-0500 Body height 157.48 cm Chrystalann-marie Vallejoall Work Phone: [place] [address] [address] Work Phone: 09-29-2021 13:00-0500 Body mass index (BMI) [Ratio] 34.48 kg/m2 Chrystal B Clifton Work Phone: [place] [address] [address] Work Phone: 09-29-2021 13:00-0500 Body surface area Derived from formula 1.86 m2 Chrystal Edu Clifton Work Phone: [address] Work Phone: 09-29-2021 13:00-0500 Body temperature 96.9 [degF] Chrystal Edu Cally Work Phone: [address] Work Phone: 09-29-2021 13:00-0500 Body weight 85.5 kg Chrystal Vallejoall Work Phone: [address] Work Phone: 09-29-2021 13:00-0500 Diastolic blood pressure 60 mm[Hg] Chrystal Wrightenhall Work Phone: [place] [address] [address] Work Phone: 09-29-2021 13:00-0500 Systolic blood pressure 120 mm[Hg] Chrystal B Clifton Work Phone: [place] [address] [address] Work Phone: 09-18-2021 15:35-0500 Body height 157.48 cm Chrystal B Clifton Work Phone: [place] [address] [address] Work Phone: 09-18-2021 15:35-0500 Body mass index (BMI) [Ratio] 35.28 kg/m2 Chrystal B Clifton Work Phone: [employer] [address] [address] Work Phone: 09-18-2021 15:35-0500 Body surface area Derived from formula 1.88 m2 Chrystal Alamo Work Phone: [place] [address] [address] Work Phone: 09-18-2021 15:35-0500 Body temperature 96.8 [degF] Chrystal Alamo Work Phone: [place] [address] [address] Work Phone: 09-18-2021 15:35-0500 Body weight 87.5 kg Chrystal Alamo Work Phone: [place] [address] [address] Work Phone: 09-18-2021 15:35-0500 Diastolic blood pressure 70 mm[Hg] Chrystal Alamo Work Phone: [place] [address] [address] Work Phone: 09-18-2021 15:35-0500 Systolic blood pressure 120 mm[Hg] Chrystal Alamo Work Phone: [place] [address] [address] Work Phone: 09-05-2021 08:27-0500 Body height 157.48 cm Chrystal Alamo Work Phone: [place] [address] [address] Work Phone: 09-05-2021 08:27-0500 Body mass index (BMI) [Ratio] 34.52 kg/m2 Chrystal Vallejoall Work Phone: [place] [address] [address] Work Phone: 09-05-2021 08:27-0500 Body surface area Derived from formula 1.86 m2 Chrystal Vallejoall Work Phone: [place] [address] [address] Work Phone: 09-05-2021 08:27-0500 Body temperature 95.7 [degF] Chrystal Alamo Work Phone: [employer] [facility] [address] [address] Work Phone: 09-05-2021 08:27-0500 Body weight 85.6 kg Chrystal Alamo Work Phone: [place] [address] [address] Work Phone: 09-05-2021 08:27-0500 Diastolic blood pressure 62 mm[Hg] Chrystal Alamo Work Phone: [employer] [facility] [address] [address] Work Phone: 09-05-2021 08:27-0500 Systolic blood pressure 100 mm[Hg] Chrystal Alamo Work Phone: [place] [address] [address] Work Phone: 08-21-2021 10:24-0500 Body height 157.48 cm Chrystal Alamo Work Phone: [employer] [facility] [address] [address] Work Phone: 08-21-2021 10:24-0500 Body mass index (BMI) [Ratio] 33.27 kg/m2 Chrystal Alamo Work Phone: [place] [address] [address] Work Phone: 08-21-2021 10:24-0500 Body surface area Derived from formula 1.84 m2 Chrystal Alamo Work Phone: [employer] [facility] [address] [address] Work Phone: 08-21-2021 10:24-0500 Body temperature 97.5 [degF] Chrystal Alamo Work Phone: [place] [address] [address] Work Phone: 08-21-2021 10:24-0500 Body weight 82.5 kg Chrystal Alamo Work Phone: [place] [address] [employer] Work Phone: 08-21-2021 10:24-0500 Diastolic blood pressure 60 mm[Hg] Chrystal Alamo Work Phone: [place] [address] [address] Work Phone: 08-21-2021 10:24-0500 Systolic blood pressure 98 mm[Hg] Chrystal Edu Cally Work Phone: [place] [address] [address] Work Phone: 07-24-2021 16:04-0400 Body height 157.48 cm Chrystal Alamo Work Phone: [place] [address] [employer] Work Phone: 07-24-2021 16:04-0400 Body mass index (BMI) [Ratio] 30.85 kg/m2 Chrystal Alamo Work Phone: [place] [address] [employer] Work Phone: 07-24-2021 16:04-0400 Body surface area Derived from formula 1.78 m2 Chrystal Alamo Work Phone: [place] [address] [address] Work Phone: 07-24-2021 16:04-0400 Body temperature 98.2 [degF] Chrystal Alamo Work Phone: [place] [address] [address] Work Phone: 07-24-2021 16:04-0400 Body weight 76.5 kg Chrystal Vallejoall Work Phone: [place] [address] [address] Work Phone: 07-24-2021 16:04-0400 Diastolic blood pressure 68 mm[Hg] Chrystal Sorensen Cally Work Phone: [place] [address] [address] Work Phone: 07-24-2021 16:04-0400 Systolic blood pressure 100 mm[Hg] Chrystal Alamo Work Phone: [place] [address] [address] Work Phone: 07-19-2021 15:40-0400 Body height 157.48 cm Chrystal Alamo Work Phone: [place] [address] [address] Work Phone: 07-19-2021 15:40-0400 Body mass index (BMI) [Ratio] 31.09 kg/m2 Chrystal Alamo Work Phone: [place] [address] [address] Work Phone: 07-19-2021 15:40-0400 Body surface area Derived from formula 1.78 m2 Chrystal Alamo Work Phone: [place] [address] [address] Work Phone: 07-19-2021 15:40-0400 Body temperature 98.2 [degF] Chrystal Alamo Work Phone: [place] [address] [address] Work Phone: 07-19-2021 15:40-0400 Body weight 77.1 kg Chrystal Alamo Work Phone: [place] [address] [address] Work Phone: 07-19-2021 15:40-0400 Diastolic blood pressure 70 mm[Hg] Chrystal aVllejoall Work Phone: [place] [address] [address] Work Phone: 07-19-2021 15:40-0400 Systolic blood pressure 120 mm[Hg] Chrystal Vallejoall Work Phone: [place] [address] [address] Work Phone: 06-26-2021 14:56-0400 Body height 157.48 cm Chrystal Alamo Work Phone: [place] [address] [address] Work Phone: 06-26-2021 14:56-0400 Body mass index (BMI) [Ratio] 28.53 kg/m2 Chrystal Alamo Work Phone: [place] [employer] Work Phone: 06-26-2021 14:56-0400 Body surface area Derived from formula 1.72 m2 Chrystal Vallejoall Work Phone: [place] [address] [address] Work Phone: 06-26-2021 14:56-0400 Body temperature 98 [degF] Chrystal Alamo Work Phone: [place] [address] [address] Work Phone: 06-26-2021 14:56-0400 Body weight 70.76 kg Chrystal Alamo Work Phone: [place] [address] [address] Work Phone: 06-26-2021 14:56-0400 Diastolic blood pressure 60 mm[Hg] Chrystal Alamo Work Phone: [place] [address] [address] Work Phone: 06-26-2021 14:56-0400 Systolic blood pressure 112 mm[Hg] Chrystal Alamo Work Phone: [place] [address] [address] Work Phone: 06-15-2021 18:43-0400 Body height 160 cm Chrystal Alamo Other Phone: [facility] 06-15-2021 18:43-0400 Body temperature 98.6 [degF] Chrystal Clifton Other Phone: [facility] 06-15-2021 18:43-0400 Diastolic blood pressure 55 mm[Hg] Chrystal Cally Other Phone: [facility] 06-15-2021 18:43-0400 Heart rate 128 /min Chrystal Alamo Other Phone: [facility] 06-15-2021 18:43-0400 SaO2% (BldA) [Mass fraction] 98 % Chrystal Alamo Other Phone: [facility] 06-15-2021 18:43-0400 Systolic blood pressure 98 mm[Hg] Chrystal Alamo Other Phone: [facility] 05-29-2021 15:12-0400 Body height 157.48 cm Chrystal Alamo Work Phone: [place] [address] [address] Work Phone: 05-29-2021 15:12-0400 Body mass index (BMI) [Ratio] 27.14 kg/m2 Chrystal Alamo Work Phone: [place] [address] [address] Work Phone: 05-29-2021 15:12-0400 Body surface area Derived from formula 1.68 m2 Chrystal Alamo Work Phone: [place] [address] [address] Work Phone: 05-29-2021 15:12-0400 Body temperature 97.7 [degF] Chrystal Alamo Work Phone: [place] [address] [place] Work Phone: 05-29-2021 15:12-0400 Body weight 67.3 kg Chrystal Alamo Work Phone: [place] [address] [place] Work Phone: 05-29-2021 15:12-0400 Diastolic blood pressure 72 mm[Hg] Chrystal Alamo Work Phone: [place] [address] [place] Work Phone: 05-29-2021 15:12-0400 Systolic blood pressure 112 mm[Hg] Chrystal Alamo Work Phone: [place] [address] [place] Work Phone: 05-01-2021 15:12-0400 Body height 157.48 cm Chrystal Vallejoall Work Phone: [place] [address] [place] Work Phone: 05-01-2021 15:12-0400 Body mass index (BMI) [Ratio] 24.4 kg/m2 Chrystal Vallejoall Work Phone: [place] [address] [place] Work Phone: 05-01-2021 15:12-0400 Body surface area Derived from formula 1.61 m2 Chrystal Vallejoall Work Phone: [place] [address] [place] Work Phone: 05-01-2021 15:12-0400 Body temperature 97.3 [degF] Chrystal Alamo Work Phone: [place] [address] [place] Work Phone: 05-01-2021 15:12-0400 Body weight 60.5 kg Chrystal Alamo Work Phone: [place] [address] [place] Work Phone: 05-01-2021 15:12-0400 Diastolic blood pressure 64 mm[Hg] Chrystal Alamo Work Phone: [place] [address] [place] Work Phone: 05-01-2021 15:12-0400 Systolic blood pressure 108 mm[Hg] Chrystal Vallejoall Work Phone: [place] [address] [address] Work Phone: 04-25-2021 13:30-0400 Body height 157.48 cm Chrystal Vallejoall Work Phone: [facility] Work Phone: 04-25-2021 13:30-0400 Body mass index (BMI) [Ratio] 24.14 kg/m2 Chrystal Vallejoall Work Phone: [facility] Work Phone: 04-25-2021 13:30-0400 Body surface area Derived from formula 1.6 m2 Chrystal lAamo Work Phone: [facility] Work Phone: 04-25-2021 13:30-0400 Body weight 59.87 kg Chrystal Alamo Work Phone: [facility] Work Phone: 04-25-2021 13:30-0400 Diastolic blood pressure 62 mm[Hg] Chrystal Alamo Work Phone: [facility] Work Phone: 04-25-2021 13:30-0400 Heart rate 84 /min Chrystal Alamo Work Phone: [facility] Work Phone: 04-25-2021 13:30-0400 Systolic blood pressure 124 mm[Hg] Chrystal Alamo Work Phone: [facility] Work Phone: 04-03-2021 15:08-0400 Body height 157.48 cm Chrystal Alamo Work Phone: [place] [address] [address] Work Phone: 04-03-2021 15:08-0400 Body mass index (BMI) [Ratio] 23.39 kg/m2 Chrystal Alamo Work Phone: [place] [address] [address] Work Phone: 04-03-2021 15:08-0400 Body surface area Derived from formula 1.58 m2 Chrystal Alamo Work Phone: [place] [address] [place] Work Phone: 04-03-2021 15:08-0400 Body temperature 97.5 [degF] Chrystal Alamo Work Phone: [place] [address] [place] Work Phone: 04-03-2021 15:08-0400 Body weight 58 kg Chrystal Vallejoall Work Phone: [place] [address] [place] Work Phone: 04-03-2021 15:08-0400 Diastolic blood pressure 62 mm[Hg] Chrystal Edu Cally Work Phone: [place] [address] [place] Work Phone: 04-03-2021 15:08-0400 Systolic blood pressure 110 mm[Hg] Chrystal Edu Clifton Work Phone: [place] [address] [address] Work Phone: 03-20-2021 13:31-0400 Body height 157.48 cm Chrystal Vallejoall Work Phone: [place] [address] [address] Work Phone: 03-20-2021 13:31-0400 Body mass index (BMI) [Ratio] 22.94 kg/m2 Chrystal Vallejoall Work Phone: [place] [address] [address] Work Phone: 03-20-2021 13:31-0400 Body surface area Derived from formula 1.57 m2 Chrystal Vallejoall Work Phone: [place] [address] [address] Work Phone: 03-20-2021 13:31-0400 Body temperature 98 [degF] Chrystal Wrightenhall Work Phone: [place] [address] [address] Work Phone: 03-20-2021 13:31-0400 Body weight 56.9 kg Chrystal Edu Clifton Work Phone: [place] [address] [place] Work Phone: 03-20-2021 13:31-0400 Diastolic blood pressure 62 mm[Hg] Chrystal B Cally Work Phone: [address] Work Phone: 03-20-2021 13:31-0400 Systolic blood pressure 112 mm[Hg] Chrystal Alamo Work Phone: [address] Work Phone: 11-11-2020 10:53-0500 BMI (Body Mass Index) 22.42 kg/m2 Alexa Beyer [facility] Work Phone: 11-11-2020 10:53-0500 Body Temperature 96.6 [degF] Alexa Beyer [facility] Work Phone: 11-11-2020 10:53-0500 Body weight 55.61 kg Alexa Beyer [facility] Work Phone: 11-11-2020 10:53-0500 BP Diastolic 68 mm[Hg] Alexa Beyer [facility] Work Phone: 11-11-2020 10:53-0500 BP Systolic 106 mm[Hg] Alexa Beyer [facility] Work Phone: 11-11-2020 10:53-0500 BSA (Body Surface Area) 1.55 m2 Alexa Beyer [facility] Work Phone: 11-11-2020 10:53-0500 Height 157.48 cm Alexa Beyer [facility] Work Phone: 11-11-2020 10:53-0500 Pulse (Heart Rate) 115 /min Alexa Beyer [facility] Work Phone: 11-11-2020 10:53-0500 Pulse Oximetry 98 % Alexa Beyer [facility] Work Phone: 10-31-2020 18:57-0500 BP Diastolic 74 mm[Hg] [facility] 10-31-2020 18:57-0500 BP Systolic 125 mm[Hg] [facility] 10-31-2020 18:57-0500 Pulse (Heart Rate) 95 /min Robert [employer] 10-31-2020 18:57-0500 Pulse Oximetry 99 % Robert Muñozxiao qu wu you Sys tem 10-31-2020 18:57-0500 Respiratory Rate 16 /min Robert [employer] stem 10-31-2020 16:27-0500 Height 157.5 cm Robert [employer] 10-31-2020 16:26-0500 Body Temperature 98.2 [degF] Robert [employer] Encounters Encounter Date Encounter Type Care Provider Facility Start: 08-23-2025 ambulatory Chrystal ACEVEDO Fa cility:[facility] Start: 08-15-2025 End: 08-15-2025 Emergency department patient visit Sadaf Yusuf Facility:[facility] Start: 07-29-2025 End: 07-29-2025 Office outpatient new 30 minutes Tani Avery MD Work Phone: [facility] Office Building [facility] Comment on above: Iron deficiency anem ia, unspecified iron deficiency anemia type (Primary Dx) Start: 07-29-2025 End: 07-29-2025 [facility] Start: 07-21-2025 End: 07-21-2025 Office outpatient visit 25 minutes Chrystal Alamo PA-C Work Phone: [facility] Comment on above: Iron deficiency anem ia, unspecified iron deficiency anemia type (Primary Dx); Sivan's thyroiditis; Screening for diabetes mellitus; Screening for lipid disorders; Vitamin D deficiency; Abscess; Dyspepsia; SOPHIA (generalized anxiety disorder); Depression, major, single episode, mild Start: 07-21-2025 End: 07-21-2025 ambulatory CHRYSTAL [facility] Start: 06-24-2025 End: 06-24-2025 ambulatory Chrystal ACEVEDO Work Phone: [facility] Start: 06-24-2025 End: 06-24-[address] Esme Baker MD -Ultrasound [facility] Work Phone: Start: 06-24-2025 End: 06-24-2025 ambulatory Chrystal ACEVEDO Facility:[facility] Start: 06-22-2025 End: 06-22-[address] Esme Baker MD -[facility] Work Phone: Start: 06-22-2025 End: 06-22-2025 ambulatory Chrystal ACEVEDO Work Phone: -[facility] Start: 06-21-2025 End: 06-21-2025 Office outpatient visit 15 minutes Ferny ROA Work Phone: [facility] Comment on above: Urinary frequency (P rimary Dx) Start: 06-21-2025 End: 06-21-2025 ambulatory [facility] Start: 06-09-2025 End: 06-09-2025 Office outpatient visit 25 minutes Chrystal ACEVEDO-C Work Phone: [facility] Comment on above: Atypical chest pain (Primary Dx); SOPHIA (generalized anxiety disorder); Dyspepsia; Nausea; Iron deficiency anemia, unspecified iron deficiency anemia type; Sivan's thyroiditis; Mild persistent asthma without complication ([facility]) Start: 06-09-2025 End: 06-09-2025 ambulatory [facility] Start: 06-03-2025 End: 06-03-2025 Office outpatient visit 25 minutes Chrystal ACEVEDO-C Work Phone: [facility] Comment on above: Iron deficiency anem ia, unspecified iron deficiency anemia type (Primary Dx); Sivan's thyroiditis; History of miscarriage; Fatigue, unspecified type Start: 06-03-2025 End: 06-03-2025 ambulatory [facility] Start: 05-15-2025 End: 05-15-2025 ambulatory Chrystal ACEVEDO Work Phone: -Laboratory Start: 05-15-2025 End: 05-15-[address] Brandi Freeman DO -Laboratory Work Phone: Start: 05-15-2025 End: 05-15-2025 ambulatory Brandi Freeman Facility:[facility] Start: 05-13-2025 End: 05-13-[address] Esme Baker MD -[facility] Work Phone: Start: 05-13-2025 End: 05-13-2025 ambulatory Chrystal Clifton PA Work Phone: -[facility] Start: 05-13-2025 End: 05-13-2025 ambulatory Chrystal Clifton PA Facility:[facility] Start: 04-30-2025 End: 04-30-[address] Esme Baker MD -[facility] Work Phone: Start: 04-30-2025 End: 04-30-2025 ambulatory Chrystal Clifton PA Work Phone: -[facility] Start: 04-06-2025 End: 04-06-2025 Admission to same day surgery center Dr. Esme Baker MD -[facility] Start: 04-06-2025 End: 04-06-2025 ambulatory Chrystal Cally PA Work Phone: [facility] Work Phone: Start: 04-06-2025 Non-patient / Non-visit Dr. Luciano Baker MD -[facility] Start: 04-05-2025 End: 04-05-2025 ambulatory Chrystal Clifton PA Work Phone: -Laboratory Specimen Start: 04-05-2025 End: 04-05-[address] Brandi Freeman DO -Laboratory Specimen Work Phone: Start: 04-05-2025 End: 04-05-[address] Brandi Freeman DO -[facility] Work Phone: Start: 04-05-2025 End: 04-05-2025 ambulatory Chrystal ACEVEDO Work Phone: [facility] Work Phone: Start: 04-05-2025 End: 04-05-2025 ambulatory Brandi Freeman Facility:[facility] Start: 03-11-2025 End: 03-11-[address] Anson Richter MD -[facility] Work Phone: Start: 03-11-2025 End: 03-11-2025 ambulatory Chrystal ACEVEDO Work Phone: [facility] Work Phone: Start: 03-11-2025 End: 03-11-2025 ambulatory Anson Richter Facility:[facility] Start: 01-05-2025 End: 01-05-2025 Office outpatient visit 25 minutes Chrystal Alamo PA-C Work Phone: [facility] Comment on above: Acute pain of right shoulder (Primary Dx); Vitamin D deficiency; Iron deficiency anemia, unspecified iron deficiency anemia type; Sivan's thyroiditis; Acute right-sided thoracic back pain Start: 01-05-2025 End: 01-05-2025 ambulatory [facility] Start: 12-25-2024 End: 12-25-2024 Emergency department patient visit CHRYSTAL [facility] Start: 12-24-2024 End: 12-24-2024 ambulatory Chrystal ACEVEDO Work Phone: [facility] Work Phone: Start: 12-24-2024 End: 12-24-[address] Esme Baker MD -[facility] Work Phone: Start: 12-24-2024 End: 12-24-2024 ambulatory Chrystal ACEVEDO Facility:[facility] Start: 12-22-2024 End: 12-22-[address] Esme Baker MD -[facility] Work Phone: Start: 12-22-2024 End: 12-22-2024 ambulatory Chrystal ACEVEDO Work Phone: [facility] Work Phone: Start: 12-22-2024 End: 12-22-2024 ambulatory Chrystal ACEVEDO Facility:[facility] Start: 11-24-2024 End: 11-24-2024 Office outpatient visit 25 minutes Chrystal RODRIGUEZC Work Phone: [facility] Comment on above: Fatigue, unspecified type (Primary Dx); Sivan's thyroiditis; Iron deficiency anemia, unspecified iron deficiency anemia type; Diet controlled gestational diabetes mellitus (GDM) in third trimester ([facility]); Pain of left heel; Acute pain of left foot; Acute left ankle pain; Mild persistent asthma without complication ([facility]) Start: 11-24-2024 End: 11-24-2024 ambulatory [facility] Start: 09-14-2024 End: 09-14-[address] Anson Richter MD -Laboratory Work Phone: Start: 09-14-2024 End: 09-14-2024 ambulatory Anson Richter Facility:[facility] Start: 08-06-2024 End: 08-06-2024 Office outpatient new 30 minutes Roe RODRIGUEZC Work Phone: [facility] Comment on above: Dysuria (Primary Dx) Start: 02-26-2024 End: 02-27-2024 ambulatory [facility] Start: 01-21-2024 End: 01-21-2024 ambulatory CURTIS ACEVEDO Work Phone: [facility] Work Phone: Start: 01-21-2024 End: 01-21-2024 Patient encounter procedure CURTIS ACEVEDO Work Phone: [facility]-Laboratory, Specimen Work Phone: Start: 01-21-2024 End: 01-21-2024 Patient encounter procedure PA Chrystal Valeljoall PA Work Phone: [facility] Work Phone: Start: 01-02-2024 End: 01-02-2024 Patient encounter procedure PA Chrystal Vallejoall PA Work Phone: [facility] Work Phone: Start: 12-18-2023 Non-patient / Non-visit PA Rac ann-marie Vallejoall PA Work Phone: [facility] Start: 12-18-2023 End: 12-18-2023 ambulatory PA Chrystal Alamo PA Work Phone: [facility] Work Phone: Start: 12-18-2023 End: 12-18-2023 Patient encounter procedure PA Chrystal Alamo PA Work Phone: [facility] Work Phone: Start: 12-15-2023 End: 12-15-2023 Patient encounter procedure PA Chrystal Alamo PA Work Phone: [facility] Care Work Phone: Start: 12-14-2023 Non-patient / Non-visit PA Rac ann-marie Vallejoall PA Work Phone: [facility] Start: 12-13-2023 Non-patient / Non-visit PA Rac ann-marie Vallejoall PA Work Phone: [facility] Start: 12-12-2023 End: 12-14-2023 Evaluation and management of inpatient PA Chrystal Vallejoall PA Work Phone: [facility] Work Phone: Start: 12-12-2023 End: 12-12-2023 Patient encounter procedure PA Chrystal Vallejoall PA Work Phone: [facility] Work Phone: Start: 12-05-2023 End: 12-05-2023 Patient encounter procedure PA Chrystal ACEVEDO Work Phone: [facility] Work Phone: Start: 12-05-2023 End: 12-05-2023 Patient encounter procedure PA Chrystal ACEVEDO Work Phone: [facility] Work Phone: Start: 11-27-2023 Non-patient / Non-visit PA Robert ACEVEDO Work Phone: [facility] Start: 11-27-2023 End: 11-27-2023 ambulatory PA Chrystal ACEVEDO Work Phone: [facility] Work Phone: Start: 11-27-2023 End: 11-27-2023 Patient encounter procedure PA Chrystal [facility]VEDO [facility] Work Phone: Start: 11-26-2023 End: 11-26-2023 Patient encounter procedure CURTIS ACEVEDO Work Phone: [facility] Work Phone: Start: 11-14-2023 End: 11-14-2023 Patient encounter procedure PA Chrystal ACEVEDO Work Phone: [facility] Work Phone: Start: 11-06-2023 End: 11-13-2023 ambulatory PA Chrystal ACEVEDO Work Phone: [facility] Work Phone: Start: 11-06-2023 End: 11-13-2023 Discharged Recurring PA Chrystal ACEVEDO Work Phone: [facility] Work Phone: Start: 10-30-2023 End: 10-30-2023 Patient encounter procedure CURTIS ACEVEDO Work Phone: [facility] Work Phone: Start: 10-23-2023 End: 10-23-2023 ambulatory PA Chrystal ACEVEDO Work Phone: [facility] Work Phone: Start: 10-23-2023 End: 10-23-2023 Patient encounter procedure CURTIS ACEVEDO Work Phone: [facility]-Laboratory Work Phone: Start: 10-18-2023 End: 10-18-2023 Office outpatient visit 25 minutes Alexa Lancaster APRN-CERAMIC TILER Work Phone: [facility] Comment on above: Acute non-recurrent maxillary sinusitis (Primary Dx); Nasal congestion Start: 10-18-2023 End: 10-18-2023 Patient encounter procedure CURTIS ACEVEDO Work Phone: [facility]-Medical Out Work Phone: Start: 10-17-2023 End: 10-17-2023 Patient encounter procedure CURTIS ACEVEDO Work Phone: [facility] Work Phone: Start: 10-16-2023 End: 10-16-2023 Emergency department patient visit CURTIS ACEVEDO Work Phone: [facility]-Emergency Department Work Phone: Start: 10-03-2023 End: 10-03-2023 ambulatory PA Chrystal ACEVEDO Work Phone: [facility] Work Phone: Start: 10-03-2023 End: 10-03-2023 Patient encounter procedure CURTIS ACEVEDO Work Phone: [facility]-Laboratory Work Phone: Start: 09-16-2023 End: 09-16-2023 ambulatory PA Chrystal Alamo PA Work Phone: [facility] Work Phone: Start: 09-16-2023 End: 09-16-2023 Patient encounter procedure PA Chrystal Alamo PA Work Phone: [facility] Work Phone: Start: 08-08-2023 End: 08-08-2023 ambulatory PA Chrystal Alamo PA Work Phone: [facility] Work Phone: Start: 08-08-2023 End: 08-08-2023 Patient encounter procedure PA Chrystal Alamo PA Work Phone: [facility] Work Phone: Start: 07-26-2023 End: 07-26-2023 Patient encounter procedure PA Chrystal Alamo PA Work Phone: [facility] Work Phone: Start: 06-26-2023 End: 06-26-2023 Patient encounter procedure PA Chrystal Alamo PA Work Phone: [facility] Work Phone: Start: 05-27-2023 End: 05-27-2023 ambulatory PA Chrystal Alamo PA Work Phone: [facility] Work Phone: Start: 05-27-2023 End: 05-27-2023 Patient encounter procedure PA Chrystal Alamo PA Work Phone: [facility]-Laboratory, OP Pavilion Start: 05-27-2023 End: 05-27-2023 Patient encounter procedure PA Chrystal Alamo PA Work Phone: [facility] Work Phone: Start: 2023 End: 04-21-2023 ambulatory CHRYSTAL [facility] Start: 04-17-2023 End: 04-18-2023 ambulatory CHRYSTAL [facility] Start: 03-20-2023 End: 03-20-2023 Office outpatient visit 25 minutes Alexa Lancaster HEAD REFRIGERATION ENGINEER-CERAMIC TILER Work Phone: [facility] Comment on above: Iron deficiency anem ia, unspecified iron deficiency anemia type (Primary Dx); Sivan's thyroiditis Start: 03-19-2023 End: 03-20-2023 ambulatory CHRYSTAL [facility] Start: 03-14-2023 End: 03-14-2023 Office outpatient visit 25 minutes Alexa Lancaster HEAD REFRIGERATION ENGINEER-CERAMIC TILER Work Phone: [facility] Comment on above: Abscess (Primary Dx) ; Low thyroid stimulating hormone (TSH) level; Iron deficiency anemia, unspecified iron deficiency anemia type Start: 02-08-2023 End: 02-08-2023 Office outpatient visit 15 minutes Alexa Lancaster HEAD REFRIGERATION ENGINEER-CERAMIC TILER Work Phone: [facility] Comment on above: Genital herpes simpl ex, unspecified site (Primary Dx) Start: 01-31-2023 ambulatory Ms. Chrystal Ramsay fito [place] Facility:[id number] Start: 12-06-2022 Periodic preventive med est patient 18-39 yrs Chrystal Alamo Work Phone: [address] Work Phone: Start: 12-06-2022 ambulatory Ms. Rochelle Boyer Fa cility:[id number] Start: 10-17-2022 Office outpatient vi sit 15 minutes Chrystal Alamo Work Phone: [facility] Work Phone: Start: 10-17-2022 ambulatory PA-C CHRYSTAL ALAMO Facility:[id number] Start: 09-27-2022 Chart Update Chrystal cast Work Phone: [facility] Work Phone: Start: 09-25-2022 Chart Update Chrystal Wrightpolo kempall Work Phone: [facility] Work Phone: Start: 09-24-2022 ambulatory PA-C CHRYSTAL ALAMO Facility:[id number] Start: 09-24-2022 Office outpatient vi sit 25 minutes Chrystal Alamo Work Phone: [facility] Work Phone: Start: 04-25-2022 ambulatory PA-C CHRYSTAL AALMO Facility:[id number] Start: 03-22-2022 Chart Update Chrystal Herrera serene Work Phone: [facility] Work Phone: Start: 03-09-2022 Chart Update Chrystal Herrera esrene Work Phone: [place] [address] [address] Work Phone: Start: 03-06-2022 Chart Update Chrystal Wrightpolo cast Work Phone: [place] [address] [address] Work Phone: Start: 03-05-[address] Tayler Santiago Facility:[id number] Start: 02-13-2022 ambulatory PA-C CHRYSTAL ALAMO Facility:[id number] Start: 02-13-2022 Office outpatient vi sit 25 minutes Chrystal Alamo Work Phone: [facility] Work Phone: Start: 02-01-2022 Telephone encounter Chrystal varghese Work Phone: [facility] Work Phone: Start: 01-24-2022 AUDIT Chrystal Herrera justoirving Work Phone: [place] [address] [address] Work Phone: Start: 01-12-2022 ambulatory Ms. Kayleigh Chawla Facility:[id number] Start: 01-12-2022 Office outpatient vi sit 15 minutes Chrystal Alamo Work Phone: [facility] Work Phone: Start: 01-01-2022 Chart Update Chrystal cast Work Phone: [facility] Work Phone: Start: 12-29-2021 Office outpatient vi sit 15 minutes Chrystal Alamo Work Phone: [facility] Work Phone: Start: 12-19-2021 Patient encounter procedure Chrystal Alamo Work Phone: [email or web address] [address] Work Phone: Start: 12-03-2021 Chart Update Chrystal cast Work Phone: [id number] 2nd Fl Work Phone: Start: 11-10-2021 Office outpatient vi sit 10 minutes Chrystal Alamo Work Phone: [email or web address] [address] [place] Work Phone: Start: 11-07-2021 End: 11-09-2021 Evaluation and management of inpatient Paulino Moreland [id number] Start: 10-31-2021 Office outpatient vi sit 10 minutes Chrystal Alamo Work Phone: [email or web address] [address] Work Phone: Start: 10-16-2021 Office outpatient vi sit 10 minutes Chrystal Vallejoall Work Phone: [email or web address] [address] Work Phone: Start: 09-22-2021 AUDIT Chrystal kempall Work Phone: [email or web address] 2nd Fl Work Phone: Start: 09-21-2021 AUDIT Chrystal cast Work Phone: [facility] [address] Work Phone: Start: 09-18-2021 Patient encounter procedure Chrystal Alamo Work Phone: [facility] [address] Work Phone: Start: 09-05-2021 Office outpatient vi sit 10 minutes Chrystal Alamo Work Phone: [facility] [address] Work Phone: Start: 08-21-2021 AUDIT Chrystal cast Work Phone: [facility] [address] Work Phone: Start: 08-21-2021 Office outpatient vi sit 10 minutes Chrystal Alamo Work Phone: [facility] [address] Work Phone: Start: 07-24-2021 Office outpatient vi sit 15 minutes Chrystal Alamo Work Phone: [facility] [address] Work Phone: Start: 07-21-2021 Chart Update Chrystal cast Work Phone: [facility] [address] Work Phone: Start: 07-19-2021 Office outpatient vi sit 10 minutes Chrystal Alamo Work Phone: [facility] [address] Work Phone: Start: 06-27-2021 Chart Update Chrystal cast Work Phone: [facility] [address] Work Phone: Start: 06-26-2021 Office outpatient vi sit 10 minutes Chrystal Alamo Work Phone: [facility] [address] Work Phone: Start: 06-15-2021 End: 06-15-2021 Emergency department patient visit [facility] Start: 05-29-2021 EPVOB, Provider: Paulino Christian, Status: Pen, Time: 3:15 PM Chrystal Alamo Work Phone: [facility] [address] Work Phone: Start: 05-29-2021 Office outpatient vi sit 10 minutes Chrystal Vallejoall Work Phone: [facility] [address] Work Phone: Start: 05-28-2021 AUDIT Chrystal Herrera nhall Work Phone: [facility] [address] Work Phone: Start: 05-15-2021 Chart Update Chrystal cast Work Phone: [facility] [address] Work Phone: Start: 05-08-2021 Chart Update Chrystal cast Work Phone: [facility] [address] Work Phone: Start: 05-03-2021 Chart Update Chrystal cast Work Phone: [facility] [address] Work Phone: Start: 05-02-2021 Chart Update Chrystal Herrera nhall Work Phone: [facility] [address] Work Phone: Start: 05-02-2021 Chart Update Chrystal Herrera nhirving Work Phone: [facility] [address] Work Phone: Start: 05-01-2021 Office outpatient vi sit 15 minutes Chrystal Vallejoall Work Phone: [facility] [address] Work Phone: Start: 04-25-2021 Office outpatient vi sit 15 minutes Chrystal B Cally Work Phone: [facility] Work Phone: Start: 04-25-2021 Patient encounter procedure Chrystal Alamo Work Phone: [facility] Work Phone: Start: 04-03-2021 Office outpatient vi sit 15 minutes Chrystal Alamo Work Phone: [email or web address] Work Phone: Start: 03-20-2021 Office outpatient ne w 30 minutes Chrystal Alamo Work Phone: [employer] Work Phone: Start: 11-22-2020 Patient encounter procedure Alexa Beyer [facility] Work Phone: Start: 11-16-2020 Patient encounter procedure Alexa Beyer [facility] Work Phone: Start: 11-11-2020 Patient encounter procedure Alexa Beyer [facility] Work Phone: Start: 10-31-2020 End: 10-31-2020 Emergency department patient visit Robert Linares Work Phone: [facility] Emergency Department Start: 11-24-2019 Patient encounter procedure Chrystal Alamo [facility] Work Phone: Start: 10-29-2019 Patient encounter procedure Chrystal Alamo [facility] Work Phone: Start: 12-28-2018 End: 12-29-2018 Patient encounter procedure MILADIS Mehta [facility] Cancer cervix - screening done Chrystal Alamo Work Phone: [employer] Work Phone: Comment on above: 05/01/2021; NIL; Encounter for gynecological examination (general) (routine) without abnormal findings Chrystalann-marie Alamo Work Phone: [employer] Work Phone: Comment on above: 05/01/2021; NIL; Patient encounter status Chrystal Alamo Work Phone: [address] Work Phone: Procedures Date Procedure Procedure Detail Performing Clinician Start: 07-29-2025 Cyanocobalamin vitamin b-12 Tani Avery MD Work Phone: Start: 06-24-2025 Pelvic echography Angie ACEVEDO Work Phone: Start: 06-21-2025 Urnls dip stick/tabl et rgnt non-auto w/o micrscp Ferny Zamora HEAD REFRIGERATION ENGINEER-CERAMIC TILER Work Phone: Start: 04-06-2025 Dilation and curetta ge of [...] POCT UA AUTOMATED MA NUALLY RESULTED Roe Orozco Sanjana PA-C Work Phone: Start: 02-26-2024 CBC W Auto Different ial panel - Blood CHRYSTAL ALAMO Start: 02-26-2024 Comprehensive metabo lic 2000 panel - Serum or Plasma CHRYSTAL ALAMO Start: 02-26-2024 Cyanocobalamin vitamin b-12 CHRYSTAL ALAMO Start: 02-26-2024 IRON AND TIBC [facility]RYSTAL [facility] Start: 02-26-2024 THYROXINE, FREE CHRYSTAL ALAMO Start: [...] ALAMO Start: 04-17-2023 IRON AND TIBC CHRYSTAL RGMIIRVING Start: 04-17-2023 Thyrotropin [Units/v olume] in Serum or Plasma CHRYSTAL ALAMO Start: 04-17-2023 THYROXINE, FREE CHRYSTAL ALAMO Start: 04-17-2023 TRIIODOTHYRONINE, FREE CHRYSTAL ALAMO Start: 03-19-2023 CBC W Auto Different ial panel - Blood CHRYSTAL WRIGHTENHALL Start: 03-19-2023 Comprehensive metabo lic 2000 panel - Serum or Plasma CHRYSTAL ALAMO Start: 03-19-2023 Cyanocobalamin vitamin b-12 CHRYSTAL ALAMO Start: 03-19-2023 Ferritin [Mass/volum e] in Serum or Plasma CHRYSTAL ALAMO Start: 03-19-2023 FOLATE CHRYSTAL HOLDEN Start: 03-19-2023 Hemoglobin A1c/Hemoglobin.total in Blood CHRYSTAL ALAMO Start: 03-19-2023 IRON AND TIBC CHRYSTAL RGMIIRVING Start: 03-19-2023 Lipid panel CHRYSTAL HOLDEN Start: 03-19-2023 Thyrotropin [Units/v olume] in Serum or Plasma CHRYSTAL ALAMO Start: 03-19-2023 THYROXINE, FREE CHRYSTAL ALAMO Start: 03-19-2023 TRIIODOTHYRONINE, FREE CHRYSTAL ALAMO Start: 03-19-2023 Lipid 1996 panel - S jovanny or Plasma Alexa ROA Work Phone: Start: 03-20-2022 Lipid 1996 panel - S jovanny or Plasma Alexa ROA Work Phone: Start: 11-08-2021 Hemoglobin F [Presen ce] in Blood Paulino Moreland Start: 11-08-2021 Rhogam Paulino Adai r Start: 05-01-2021 Microscopic observat ion [Identifier] in Cervix by Cyto stain Alexa ROA Work Phone: Start: 11-16-2020 Echocardiography Alexa luque Start: 11-11-2020 Echocardiography Alexa luque Start: 11-11-2020 Holter Monitor 3-14 Days Alexa Beyer Start: 10-31-2020 CT of chest Marybel Y Os borne Work Phone: Start: 10-31-2020 Choriogonadotropin ( test) [...] cyst Chrystal Alamo Operation on mouth Chrystal aguillon Tonsillectomy Chrystal villatoro Plan of Treatment Date Care Activity Detail Author Start: 2050 Zoster Vaccines (1 of 2) Zoste r Vaccines (1 of 2) [facility] Start: 08-22-2031 DTaP/Tdap/Td Vaccine s (7 - Td or Tdap) DTaP/Tdap/Td Vaccines (7 - Td or Tdap) [facility] Start: 08-22-2031 DTaP/Tdap/Td Vaccine s (8 - Td or Tdap) DTaP/Tdap/Td Vaccines (8 - Td or Tdap) [facility] Start: 03-19-[address]28 [address] Lipid Panel [facility] Start: 03-20-2027 [address] Lipid Panel [facility] Start: 01-26-2026 End: 01-26-2026 Patient encounter procedure 01/26/2026 9:40 AM EDT Office Visit [facility] [address] [place] [address] Chrystal Alamo PA-C [address] [place] [address] [facility] Start: 11-25-2025 Thyroid stimulating hormone measurement TSH Level [facility] Start: 10-21-2025 End: 07-21-2026 25-hydroxyvitamin D3 [Mass/volume] in Serum or Plasma Vitamin D 25-Hydroxy,Total (for eval of Vitamin D levels) Lab Routine Vitamin D deficiency Expected: 10/21/2025 (Approximate), Expires: 07/21/2026 [facility] Work Phone: Comment on above: Expected: 10/21/2025 (Approximate), Expires: 07/21/2026 Start: 10-21-2025 End: 07-21-2026 Comprehensive metabolic 2000 panel - Serum or Plasma Comprehensive Metabolic Panel Lab Routine Screening for diabetes mellitus Expected: 10/21/2025 (Approximate), Expires: 07/21/2026 [facility] Service Area Work Phone: Comment on above: Expected: 10/21/2025 (Approximate), Expires: 07/21/2026 Start: 10-21-2025 End: 07-21-2026 Lipid 1996 panel - Serum or Plasma Lipid Panel Lab Routine Screening for lipid disorders Expected: 10/21/2025 (Approximate), Expires: 07/21/2026 [facility] Work Phone: Comment on above: Expected: 10/21/2025 (Approximate), Expires: 07/21/2026 Start: 10-21-2025 End: 07-21-2026 Magnesium [Mass/volume] in Serum or Plasma Magnesium Lab Routine Sivan's thyroiditis Expected: 10/21/2025 (Approximate), Expires: 07/21/2026 [facility] Work Phone: Comment on above: Expected: 10/21/2025 (Approximate), Expires: 07/21/2026 Start: 10-21-2025 End: 07-21-2026 Thyrotropin [Units/volume] in Serum or Plasma Thyroid Stimulating Hormone Lab Routine Sivan's thyroiditis Expected: 10/21/2025 (Approximate), Expires: 07/21/2026 [facility] Work Phone: Comment on above: Expected: 10/21/2025 (Approximate), Expires: 07/21/2026 Start: 10-21-2025 End: 07-21-2026 Thyroxine (T4) free [Mass/volume] in Serum or Plasma Thyroxine, Free Lab Routine Sivan's thyroiditis Expected: 10/21/2025 (Approximate), Expires: 07/21/2026 [facility] Work Phone: Comment on above: Expected: 10/21/2025 (Approximate), Expires: 07/21/2026 Start: 09-14-2025 End: 09-14-2025 Patient encounter procedure 09/14/2025 10:00 AM EST Office Visit [facility] [address] [place] [id number] Chrystal Alamo PA-C [address] [place] [address] [facility] Start: 09-06-2025 End: 09-06-2025 Patient encounter procedure 09/06/2025 10:00 AM EST Office Visit [address] [place] [id number] Matilda Montgomery MD [address] [place] [address] [address] [place] [address] [facility] Office [facility] Start: 09-02-2025 End: 12-01-2025 CBC W Auto Differential panel - Blood CBC and Auto Differential Lab Routine Iron deficiency anemia, unspecified iron deficiency anemia type Expected: 09/02/2025, Expires: 12/01/2025 [facility] Work Phone: Comment on above: Expected: 09/02/2025 , Expires: 12/01/2025 Start: 09-02-2025 End: 12-01-2025 Cobalamin (Vitamin B12) [Mass/volume] in Serum or Plasma Vitamin B12 Lab Routine Iron deficiency anemia, unspecified iron deficiency anemia type Expected: 09/02/2025 (Approximate), Expires: 12/01/2025 [facility] Service Area Work Phone: Comment on above: Expected: 09/02/2025 (Approximate), Expires: 12/01/2025 Start: 09-02-2025 End: 12-01-2025 Copper [Mass/volume] in Serum or Plasma Copper, Blood Lab Routine Iron deficiency anemia, unspecified iron deficiency anemia type Expected: 09/02/2025 (Approximate), Expires: 12/01/2025 [facility] Work Phone: Comment on above: Expected: 09/02/2025 (Approximate), Expires: 12/01/2025 Start: 09-02-2025 End: 12-01-2025 Ferritin [Mass/volume] in Serum or Plasma Ferritin Lab Routine Iron deficiency anemia, unspecified iron deficiency anemia type Expected: 09/02/2025 (Approximate), Expires: 12/01/2025 [facility] Work Phone: Comment on above: Expected: 09/02/2025 (Approximate), Expires: 12/01/2025 Start: 09-02-2025 End: 12-01-2025 Folate [Mass/volume] in Serum or Plasma Folate Lab Routine Iron deficiency anemia, unspecified iron deficiency anemia type Expected: 09/02/2025 (Approximate), Expires: 12/01/2025 [facility] Work Phone: Comment on above: Expected: 09/02/2025 (Approximate), Expires: 12/01/2025 Start: 09-02-2025 End: 12-01-2025 Iron and Iron binding capacity panel - Serum or Plasma Iron and TIBC Lab Routine Iron deficiency anemia, unspecified iron deficiency anemia type Expected: 09/02/2025, Expires: 12/01/2025 [facility] Work Phone: Comment on above: Expected: 09/02/2025 , Expires: 12/01/2025 Start: 09-02-2025 End: 12-01-2025 Methylmalonate [Moles/volume] in Serum or Plasma Methylmalonic acid, serum Lab Routine Iron deficiency anemia, unspecified iron deficiency anemia type Expected: 09/02/2025 (Approximate), Expires: 12/01/2025 [facility] Work Phone: Comment on above: Expected: 09/02/2025 (Approximate), Expires: 12/01/2025 Start: 09-02-2025 End: 12-01-2025 Reticulocytes panel - Blood Reticulocytes Lab Routine Iron deficiency anemia, unspecified iron deficiency anemia type Expected: 09/02/2025 (Approximate), Expires: 12/01/2025 [facility] Work Phone: Comment on above: Expected: 09/02/2025 (Approximate), Expires: 12/01/2025 Start: 08-09-2025 End: 08-09-2025 Patient encounter procedure 08/09/2025 9:40 AM EDT Office Visit [facility] [address] [place] [phone] Chrystal Alamo, PAMarisolC [address] [place], [place] [id number] [facility] Start: 08-05-2025 End: 08-05-2025 ambulatory 08/05/2025 9:00 AM EDT Infusion [facility] [address] [place] [address] [facility] Start: 07-29-2025 End: 07-29-2026 Methylmalonate [Moles/volume] in Serum or Plasma [facility] Service Area Work Phone: Comment on above: Expected: 07/29/2025 (Approximate), Expires: 07/29/2026 Start: 06-14-2025 COVID-19 Vaccine ( season) COVID-19 Vaccine ( season) [facility] Start: 06-14-2025 COVID-19 Vaccine ( season) COVID-19 Vaccine ( season) [facility] Start: 06-14-2025 Influenza vaccination Influenz a Vaccine (#1) [facility] Start: 06-09-2025 End: 06-09-2026 XR Chest 2 Views XR chest 2 views Imaging Routine Atypical chest pain Expected: 06/09/2025, Expires: 06/09/2026 [facility] Service Area Work Phone: Comment on above: Expected: 06/09/2025 , Expires: 06/09/2026 Start: 06-03-2025 End: 06-03-2026 CBC W Auto Differential panel - Blood CBC and Auto Differential Lab Routine Iron deficiency anemia, unspecified iron deficiency anemia type Expected: 06/03/2025 (Approximate), Expires: 06/03/2026 [facility] Service Area Work Phone: Comment on above: Expected: 06/03/2025 (Approximate), Expires: 06/03/2026 Start: 06-03-2025 End: 06-03-2026 Ferritin [Mass/volume] in Serum or Plasma Ferritin Lab Routine Iron deficiency anemia, unspecified iron deficiency anemia type Expected: 06/03/2025 (Approximate), Expires: 06/03/2026 [facility] Work Phone: Comment on above: Expected: 06/03/2025 (Approximate), Expires: 06/03/2026 Start: 06-03-2025 End: 06-03-2026 Iron and Iron binding capacity panel - Serum or Plasma Iron and TIBC Lab Routine Iron deficiency anemia, unspecified iron deficiency anemia type Expected: 06/03/2025 (Approximate), Expires: 06/03/2026 [facility] Work Phone: Comment on above: Expected: 06/03/2025 (Approximate), Expires: 06/03/2026 Start: 05-14-2025 Influenza vaccination Influenz a Vaccine (#1) [facility] Start: 05-13-2025 CBC W Auto Different ial panel - Blood [facility] Start: 05-13-2025 Choriogonadotropin ( test) [Presence] in Serum or Plasma [facility] Start: 05-13-2025 T4 free measurement [facility] Start: 05-13-2025 Thyroid stimulating hormone measurement [facility] Start: 05-04-2025 End: 05-04-2025 Patient encounter procedure 05/04/2025 9:00 AM EDT Office Visit [facility] [address] [place] [phone] Chrystal Alamo PA-C [address] [place] [address] [facility] Start: 04-07-2025 End: 01-05-2026 25-hydroxyvitamin D3 [Mass/volume] in Serum or Plasma Vitamin D 25-Hydroxy,Total (for eval of Vitamin D levels) Lab Routine Vitamin D deficiency Expected: 04/07/2025 (Approximate), Expires: 01/05/2026 [facility] Work Phone: Comment on above: Expected: 04/07/2025 (Approximate), Expires: 01/05/2026 Start: 04-07-2025 End: 01-05-2026 CBC W Auto Differential panel - Blood CBC and Auto Differential Lab Routine Iron deficiency anemia, unspecified iron deficiency anemia type Expected: 04/07/2025 (Approximate), Expires: 01/05/2026 [facility] Service Area Work Phone: Comment on above: Expected: 04/07/2025 (Approximate), Expires: 01/05/2026 Start: 04-07-2025 End: 01-05-2026 Ferritin [Mass/volume] in Serum or Plasma Ferritin Lab Routine Iron deficiency anemia, unspecified iron deficiency anemia type Expected: 04/07/2025 (Approximate), Expires: 01/05/2026 [facility] Work Phone: Comment on above: Expected: 04/07/2025 (Approximate), Expires: 01/05/2026 Start: 04-07-2025 End: 01-05-2026 Iron and Iron binding capacity panel - Serum or Plasma Iron and TIBC Lab Routine Iron deficiency anemia, unspecified iron deficiency anemia type Expected: 04/07/2025 (Approximate), Expires: 01/05/2026 [facility] Work Phone: Comment on above: Expected: 04/07/2025 (Approximate), Expires: 01/05/2026 Start: 04-06-2025 Ambulation without limitation [facility] Start: 04-06-2025 Medical regimen orde rs management [facility] Start: 04-06-2025 Medication education [facility] Start: 04-06-2025 Patient discharge [facility] Start: 04-06-2025 Procedure discontinued [facility] Start: 04-06-2025 Taking patient vital signs [facility] Start: 04-06-2025 Vital signs measurements [facility] Start: 04-06-2025 [facility] Start: 04-06-2025 Anesthesia incomplete/missed ANES INCOMPL/MISSED AB PX [facility] Start: 04-06-2025 Tx missed f irst trimester surgical CARE OF MISCARRIAGE [facility] Start: 04-06-2025 Celiac disease screen [facility] Start: 04-06-2025 Hemoglobin A1c/Hemoglobin.total in Blood [facility] Start: 04-05-2025 Bacteria identified in Urine by Culture Urine Culture [facility] Start: 04-05-2025 [facility] Start: 02-25-2025 Thyroid stimulating hormone measurement TSH Level [facility] Start: 01-05-2025 End: 01-05-2025 Patient encounter procedure 01/05/2025 2:40 PM EDT Office Visit [facility] [address] [place] [phone] Chrystal Alamo PA-C [address] [place] [address] [facility] Start: 01-05-2025 End: 01-05-2026 XR Shoulder - right 2 Views XR shoulder right 2+ views Imaging Routine Acute pain of right shoulder Expected: 01/05/2025, Expires: 01/05/2026 [facility] Work Phone: Comment on above: Expected: 01/05/2025 , Expires: 01/05/2026 Start: 01-05-2025 End: 01-05-2026 XR Thoracic spine 2 Views XR thoracic spine 2 views Imaging Routine Acute right-sided thoracic back pain Expected: 01/05/2025, Expires: 01/05/2026 [facility] Work Phone: Comment on above: Expected: 01/05/2025 , Expires: 01/05/2026 Start: 11-24-2024 End: 11-24-2025 CBC W Auto Differential panel - Blood CBC and Auto Differential Lab Routine Iron deficiency anemia, unspecified iron deficiency anemia type Diet controlled gestational diabetes mellitus (GDM) in third trimester ([facility]) Expected: 11/24/2024 (Approximate), Expires: 11/24/2025 [facility] Service Area Work Phone: Comment on above: Expected: 11/24/2024 (Approximate), Expires: 11/24/2025 Start: 11-24-2024 End: 11-24-2025 Cobalamin (Vitamin B12) [Mass/volume] in Serum or Plasma Vitamin B12 Lab Routine Iron deficiency anemia, unspecified iron deficiency anemia type Diet controlled gestational diabetes mellitus (GDM) in third trimester ([facility]) Expected: 11/24/2024 (Approximate), Expires: 11/24/2025 [facility] Work Phone: Comment on above: Expected: 11/24/2024 (Approximate), Expires: 11/24/2025 Start: 11-24-2024 End: 11-24-2025 Comprehensive metabolic 2000 panel - Serum or Plasma Comprehensive Metabolic Panel Lab Routine Iron deficiency anemia, unspecified iron deficiency anemia type Diet controlled gestational diabetes mellitus (GDM) in third trimester ([facility]) Expected: 11/24/2024 (Approximate), Expires: 11/24/2025 [facility] Work Phone: Comment on above: Expected: 11/24/2024 (Approximate), Expires: 11/24/2025 Start: 11-24-2024 End: 11-24-2025 Ferritin [Mass/volume] in Serum or Plasma Ferritin Lab Routine Iron deficiency anemia, unspecified iron deficiency anemia type Diet controlled gestational diabetes mellitus (GDM) in third trimester ([facility]) Expected: 11/24/2024 (Approximate), Expires: 11/24/2025 [facility] Work Phone: Comment on above: Expected: 11/24/2024 (Approximate), Expires: 11/24/2025 Start: 11-24-2024 End: 11-24-2025 Hemoglobin A1c/Hemoglobin.total in Blood Hemoglobin A1C Lab Routine Iron deficiency anemia, unspecified iron deficiency anemia type Diet controlled gestational diabetes mellitus (GDM) in third trimester ([facility]) Expected: 11/24/2024 (Approximate), Expires: 11/24/2025 [facility] Work Phone: Comment on above: Expected: 11/24/2024 (Approximate), Expires: 11/24/2025 Start: 11-24-2024 End: 11-24-2025 Iron and Iron binding capacity panel - Serum or Plasma Iron and TIBC Lab Routine Iron deficiency anemia, unspecified iron deficiency anemia type Diet controlled gestational diabetes mellitus (GDM) in third trimester ([facility]) Expected: 11/24/2024 (Approximate), Expires: 11/24/2025 [facility] Work Phone: Comment on above: Expected: 11/24/2024 (Approximate), Expires: 11/24/2025 Start: 11-24-2024 End: 11-24-2025 Magnesium [Mass/volume] in Serum or Plasma Magnesium Lab Routine Iron deficiency anemia, unspecified iron deficiency anemia type Diet controlled gestational diabetes mellitus (GDM) in third trimester ([facility]) Expected: 11/24/2024 (Approximate), Expires: 11/24/2025 [facility] Work Phone: Comment on above: Expected: 11/24/2024 (Approximate), Expires: 11/24/2025 Start: 11-24-2024 End: 11-24-2025 Thyrotropin [Units/volume] in Serum or Plasma Thyroid Stimulating Hormone Lab Routine Sivan's thyroiditis Iron deficiency anemia, unspecified iron deficiency anemia type Diet controlled gestational diabetes mellitus (GDM) in third trimester ([facility]) Expected: 11/24/2024 (Approximate), Expires: 11/24/2025 [facility] Work Phone: Comment on above: Expected: 11/24/2024 (Approximate), Expires: 11/24/2025 Start: 11-24-2024 End: 11-24-2025 Thyroxine (T4) free [Mass/volume] in Serum or Plasma Thyroxine, Free Lab Routine Sivan's thyroiditis Iron deficiency anemia, unspecified iron deficiency anemia type Diet controlled gestational diabetes mellitus (GDM) in third trimester ([facility]) Expected: 11/24/2024 (Approximate), Expires: 11/24/2025 [facility] Work Phone: Comment on above: Expected: 11/24/2024 (Approximate), Expires: 11/24/2025 Start: 11-24-2024 End: 11-24-2025 XR Ankle - left 2 Views XR ankle left 2 views Imaging Routine Acute left ankle pain Expected: 11/24/2024, Expires: 11/24/2025 [facility] Work Phone: Comment on above: Expected: 11/24/2024 , Expires: 11/24/2025 Start: 11-24-2024 End: 11-24-2025 XR Calcaneus - left 2 Views XR calcaneus left 2 views Imaging Routine Pain of left heel Expected: 11/24/2024, Expires: 11/24/2025 [facility] Work Phone: Comment on above: Expected: 11/24/2024 , Expires: 11/24/2025 Start: 06-14-2024 COVID-19 Vaccine () COVID-19 Vaccine () [facility] Start: 06-14-2024 Influenza vaccination Influenz a Vaccine (#1) [facility] Start: 05-01-2024 Screening for malign ant neoplasm of cervix [facility] Start: 04-27-2024 End: 04-27-2024 Patient encounter procedure 04/27/2024 2:00 PM EDT Office Visit [facility] [address] [place] [address] Chrystal Alamo PA-C [address] [place] [address] [facility] Start: 12-18-2023 Vital signs measurements [facility] Start: 12-18-2023 [facility] Start: 12-18-2023 Patient discharge [facility] Start: 12-14-2023 Patient discharge [facility] Start: 12-13-2023 Administration of bl ood product [facility] Start: 12-13-2023 Administration of medication [facility] Start: 12-13-2023 Application of ice c ollar, cap or bag [facility] Start: 12-13-2023 Catheterization of vein [facility] Start: 12-13-2023 Introduction of urin anthony catheter [facility] Start: 12-13-2023 Measuring intake and output [facility] Start: 12-13-2023 Procedure discontinued [facility] Start: 12-13-2023 Provision of activit y privileges [facility] Start: 12-13-2023 Vital signs measurements [facility] Start: 12-13-2023 End: 12-13-2023 [facility] Start: 12-13-2023 Documentation procedure [facility] Start: 12-13-2023 End: 12-13-2023 Notification of physician [facility] Start: 12-12-2023 Admission procedure [facility] Start: 12-07-2023 Yearly Adult Physical Yearly Adult P hycal [facility] Start: 11-27-2023 Nonstress test [facility] Start: 11-27-2023 Obstetric monitoring [facility] Start: 11-27-2023 Vital signs measurements [facility] Start: 11-27-2023 [facility] Start: 11-27-2023 Iv infusion hydratio n initial 31 min-1 hour HYDRATION IV INFUSION [facility] Start: 11-27-2023 Patient discharge [facility] Start: 10-18-2023 Iv infusion therapy prophylaxis/dx ea hour THER/PROPH/DIAG IV INF ADDON [facility] Start: 10-18-2023 Iv infusion therapy/prophylaxis /dx 1st to 1 hr THER/PROPH/DIAG IV INF [facility] Start: 10-16-2023 [facility] Start: 06-14-2023 Influenza vaccination U [facility] Start: 04-11-2023 End: 04-11-2023 Patient encounter procedure 04/11/2023 9:40 AM EDT Office Visit [facility] Internal Medicine [address] [place] [id number] Chrystal Alamo PA-C [address] [place] [address] [facility] Start: 03-20-2023 End: 03-20-2024 CBC W Auto Differential panel - Blood CBC and Auto Differential Lab Routine Iron deficiency anemia, unspecified iron deficiency anemia type Expected: 03/20/2023 (Approximate), Expires: 03/20/2024 [facility] Service Area Work Phone: Comment on above: Expected: 03/20/2023 (Approximate), Expires: 03/20/2024 Start: 03-20-2023 End: 03-20-2024 Ferritin [Mass/volume] in Serum or Plasma Ferritin Lab Routine Iron deficiency anemia, unspecified iron deficiency anemia type Expected: 03/20/2023 (Approximate), Expires: 03/20/2024 [facility] Work Phone: Comment on above: Expected: 03/20/2023 (Approximate), Expires: 03/20/2024 Start: 03-20-2023 End: 03-20-2024 Iron and Iron binding capacity panel - Serum or Plasma Iron and TIBC Lab Routine Iron deficiency anemia, unspecified iron deficiency anemia type Expected: 03/20/2023 (Approximate), Expires: 03/20/2024 [facility] Work Phone: Comment on above: Expected: 03/20/2023 (Approximate), Expires: 03/20/2024 Start: 03-20-2023 End: 03-20-2024 Thyrotropin [Units/volume] in Serum or Plasma Thyroid Stimulating Hormone Lab Routine Sivan's thyroiditis Expected: 03/20/2023 (Approximate), Expires: 03/20/2024 [facility] Work Phone: Comment on above: Expected: 03/20/2023 (Approximate), Expires: 03/20/2024 Start: 03-20-2023 End: 03-20-2024 Thyroxine (T4) free [Mass/volume] in Serum or Plasma Thyroxine, Free Lab Routine Sivan's thyroiditis Expected: 03/20/2023 (Approximate), Expires: 03/20/2024 [facility] Work Phone: Comment on above: Expected: 03/20/2023 (Approximate), Expires: 03/20/2024 Start: 03-20-2023 End: 03-20-2024 Triiodothyronine (T3) Free [Mass/volume] in Serum or Plasma Triiodothyronine, Free Lab Routine Sivan's thyroiditis Expected: 03/20/2023 (Approximate), Expires: 03/20/2024 [facility] Work Phone: Comment on above: Expected: 03/20/2023 (Approximate), Expires: 03/20/2024 Start: 03-14-2023 End: 03-14-2024 CBC W Auto Differential panel - Blood CBC and Auto Differential Lab Routine Low thyroid stimulating hormone (TSH) level Iron deficiency anemia, unspecified iron deficiency anemia type Expected: 03/14/2023 (Approximate), Expires: 03/14/2024 [facility] Service Area Work Phone: Comment on above: Expected: 03/14/2023 (Approximate), Expires: 03/14/2024 Start: 03-14-2023 End: 03-14-2024 Cobalamin (Vitamin B12) [Mass/volume] in Serum or Plasma Vitamin B12 Lab Routine Low thyroid stimulating hormone (TSH) level Iron deficiency anemia, unspecified iron deficiency anemia type Expected: 03/14/2023 (Approximate), Expires: 03/14/2024 [facility] Work Phone: Comment on above: Expected: 03/14/2023 (Approximate), Expires: 03/14/2024 Start: 03-14-2023 End: 03-14-2024 Comprehensive metabolic 2000 panel - Serum or Plasma Comprehensive Metabolic Panel Lab Routine Low thyroid stimulating hormone (TSH) level Iron deficiency anemia, unspecified iron deficiency anemia type Expected: 03/14/2023 (Approximate), Expires: 03/14/2024 [facility] Work Phone: Comment on above: Expected: 03/14/2023 (Approximate), Expires: 03/14/2024 Start: 03-14-2023 End: 03-14-2024 Ferritin [Mass/volume] in Serum or Plasma Ferritin Lab Routine Low thyroid stimulating hormone (TSH) level Iron deficiency anemia, unspecified iron deficiency anemia type Expected: 03/14/2023 (Approximate), Expires: 03/14/2024 [facility] Work Phone: Comment on above: Expected: 03/14/2023 (Approximate), Expires: 03/14/2024 Start: 03-14-2023 End: 03-14-2024 Folate [Mass/volume] in Serum or Plasma Folate Lab Routine Low thyroid stimulating hormone (TSH) level Iron deficiency anemia, unspecified iron deficiency anemia type Expected: 03/14/2023 (Approximate), Expires: 03/14/2024 [facility] Work Phone: Comment on above: Expected: 03/14/2023 (Approximate), Expires: 03/14/2024 Start: 03-14-2023 End: 03-14-2024 Hemoglobin A1c/Hemoglobin.total in Blood Hemoglobin A1C Lab Routine Low thyroid stimulating hormone (TSH) level Iron deficiency anemia, unspecified iron deficiency anemia type Expected: 03/14/2023 (Approximate), Expires: 03/14/2024 [facility] Work Phone: Comment on above: Expected: 03/14/2023 (Approximate), Expires: 03/14/2024 Start: 03-14-2023 End: 03-14-2024 Iron and Iron binding capacity panel - Serum or Plasma Iron and TIBC Lab Routine Low thyroid stimulating hormone (TSH) level Iron deficiency anemia, unspecified iron deficiency anemia type Expected: 03/14/2023 (Approximate), Expires: 03/14/2024 [facility] Work Phone: Comment on above: Expected: 03/14/2023 (Approximate), Expires: 03/14/2024 Start: 03-14-2023 End: 03-14-2024 Lipid 1996 panel - Serum or Plasma Lipid Panel Lab Routine Low thyroid stimulating hormone (TSH) level Iron deficiency anemia, unspecified iron deficiency anemia type Expected: 03/14/2023 (Approximate), Expires: 03/14/2024 [facility] Work Phone: Comment on above: Expected: 03/14/2023 (Approximate), Expires: 03/14/2024 Start: 03-14-2023 End: 03-14-2024 Thyrotropin [Units/volume] in Serum or Plasma Thyroid Stimulating Hormone Lab Routine Low thyroid stimulating hormone (TSH) level Iron deficiency anemia, unspecified iron deficiency anemia type Expected: 03/14/2023 (Approximate), Expires: 03/14/2024 [facility] Work Phone: Comment on above: Expected: 03/14/2023 (Approximate), Expires: 03/14/2024 Start: 03-14-2023 End: 03-14-2024 Thyroxine (T4) free [Mass/volume] in Serum or Plasma Thyroxine, Free Lab Routine Low thyroid stimulating hormone (TSH) level Iron deficiency anemia, unspecified iron deficiency anemia type Expected: 03/14/2023 (Approximate), Expires: 03/14/2024 [facility] Work Phone: Comment on above: Expected: 03/14/2023 (Approximate), Expires: 03/14/2024 Start: 03-14-2023 End: 03-14-2024 Triiodothyronine (T3) Free [Mass/volume] in Serum or Plasma Triiodothyronine, Free Lab Routine Low thyroid stimulating hormone (TSH) level Iron deficiency anemia, unspecified iron deficiency anemia type Expected: 03/14/2023 (Approximate), Expires: 03/14/2024 [facility] Work Phone: Comment on above: Expected: 03/14/2023 (Approximate), Expires: 03/14/2024 Start: 10-17-2022 FUV, Provider: Chrystal Alamo, Status: [place], Time: 10:40 AM FUV, Provider: Chrystal Alamo, Status: [place], Time: 10:40 AM [facility] Work Phone: Start: 04-25-2022 FUV, Provider: Chrystal Alamo, Status: Pen, Time: 1:00 PM FUV, Provider: Chrystal Alamo, Status: Pen, Time: 1:00 PM [facility] Work Phone: Start: 03-20-2022 FUV, Provider: Chrystal Alamo, Status: Pen, Time: 12:40 PM FUV, Provider: Chrystal Alamo, Status: Pen, Time: 12:40 PM [facility] Work Phone: Start: 02-13-2022 FUV, Provider: Chrystal Alamo, Status: Pen, Time: 1:00 PM FUV, Provider: Chrystal Alamo, Status: Pen, Time: 1:00 PM [facility] Work Phone: Start: 01-23-2022 PFT, Provider: RONNY MCKEON PFT ROOM,[id number], Status: Pen, Time: 9:00 AM PFT, Provider: CLAUS PFT ROOM,[id number], Status: Pen, Time: 9:00 AM [facility] Work Phone: Start: 01-12-2022 FUV, Provider: Kayleigh Chawla, Status: Pen, Time: 1:00 PM FUV, Provider: Kayleigh Chawla, Status: Pen, Time: 1:00 PM [facility] Work Phone: Start: 12-19-2021 Patient encounter procedure Eva Jacksontan Start: 12-19-2021 PPV, Provider: Paulino Christian, Status: [place], Time: 1:30 PM PPV, Provider: Paulino Christian, Status: [place], Time: 1:30 PM [employer] Work Phone: Start: 11-08-2021 End: 11-08-2022 [facility] Comment on above: Consult provider jose [...] Start: 11-07-2021 EPVOB, Provider: Paulino Christian, Status: [place], Time: 2:30 PM EPVOB, Provider: Paulino Christian, Status: [place], Time: 2:30 PM [employer] Work Phone: Start: 10-31-2021 EPVOB, Provider: Paulino Christian, Status: [place], Time: 2:30 PM EPVOB, Provider: Paulino Christian, Status: [place], Time: 2:30 PM [employer] Work Phone: Start: 10-24-2021 EPVOB, Provider: Paulino Christian, Status: Pen, Time: 2:00 PM EPVOB, Provider: Paulino Christian, Status: Pen, Time: 2:[address] Work Phone: Start: 10-19-2021 ULTRASDFUV, Provider : OB BILL3,MGOBGYN, Status: Pen, Time: 2:00 PM ULTRASDFUV, Provider: OB BILL3,MGOBGYN, Status: Pen, Time: 2:00 PM [id number] [facility] Work Phone: Start: 10-03-2021 EPVOB, Provider: Paulino Christian, Status: Pen, Time: 2:45 PM EPVOB, Provider: Paulino Christian, Status: Pen, Time: 2:[address] Work Phone: Start: 09-18-2021 EPVOB, Provider: Paulino Christian, Status: Pen, Time: 3:30 PM EPVOB, Provider: Paulino Christian, Status: Pen, Time: 3:30 PM [employer] Work Phone: Start: 09-05-2021 EPVOB, Provider: Paulino Christian, Status: Pen, Time: 8:30 AM EPVOB, Provider: Paulino Christian, Status: Pen, Time: 8:30 AM [employer] Work Phone: Start: 08-21-2021 EPVOB, Provider: Paulino Christian, Status: Pen, Time: 10:15 AM EPVOB, Provider: Paulino Christian, Status: Pen, Time: 10:15 AM [employer] Work Phone: Start: 07-24-2021 EPVOB, Provider: Paulino Christian, Status: Pen, Time: 3:45 PM EPVOB, Provider: Paulino Christian, Status: Pen, Time: 3:45 PM [employer] Work Phone: Start: 06-26-2021 EPVOB, Provider: Paulino Christian, Status: Pen, Time: 2:45 PM EPVOB, Provider: Paulino Christian, Status: Pen, Time: 2:45 PM [employer] Work Phone: Start: 06-26-2021 Patient encounter procedure [facility] Start: 05-29-2021 EPVOB, Provider: Paulino Christian, Status: Pen, Time: 3:15 PM EPVOB, Provider: Paulino Christian, Status: Pen, Time: 3:15 PM [email or web address] Work Phone: Start: 05-01-2021 EPVOB, Provider: Paulino Christian, Status: Pen, Time: 3:00 PM EPVOB, Provider: Paulino Christian, Status: Pen, Time: 3:00 PM [email or web address] Work Phone: Start: 04-25-2021 NPV, Provider: Rochelle Boyer, Status: Pen, Time: 9:00 AM NPV, Provider: Rochelle Boyer, Status: Pen, Time: 9:00 AM [facility] Work Phone: Start: 04-24-2021 FUV, Provider: Chrystal Alamo, Status: Pen, Time: 9:40 AM FUV, Provider: Chrystal Alamo, Status: Pen, Time: 9:40 AM [employer] Work Phone: Start: 2021 Screening for malign ant neoplasm of [facility] Start: 04-03-2021 EPVOB, Provider: Velasquez Ewing, Status: Pen, Time: 2:45 PM EPVOB, Provider: Velasquez Ewing, Status: Pen, Time: 2:45 PM [employer] Work Phone: Start: 09-01-2020 Varicella vaccination Varicell a Vaccines (1 of 2 - 13+ 2-dose series) [facility] Start: 08-31-2020 Varicella vaccination Varicell a Vaccines (1 of 2 - 2-dose childhood series) [facility] Start: 06-14-2020 Influenza vaccination INFLUENZ A VACCINE (#1) [facility] Start: 2019 Pneumococcal Vaccine : Pediatrics and At-Risk Adult Patients (1 of 2 - PCV) Pneumococcal Vaccine: Pediatrics and At-Risk Adult Patients (1 of 2 - PCV) [facility] Start: 2019 Third diphtheria, te tanus and acellular pertussis (DTaP) vaccination TDAP (ADULT) [facility] Start: 2018 Tetanus vaccination TETANUS [facility] Start: 2016 Screening for Chlamy shaquille trachomatis CHLAMYDIA SCREEN [facility] Start: 2015 HPV Vaccines (1 - 3- dose series) HPV Vaccines (1 - 3-dose series) [facility] Start: 2013 HIV screening HIV SCREENING DISCUSSION [facility] Start: 2011 HPV Vaccines (1 - 2- dose series) HPV Vaccines (1 - 2-dose series) [facility] Start: 2011 Vaccination for andressa n papillomavirus HPV VACCINE ADOL (1 - 2-dose series) [facility] Start: 2006 Pneumococcal Vaccine : Pediatrics (0 to 5 Years) and At-Risk Patients (6 to 64 Years) (1 - PCV) Pneumococcal Vaccine: Pediatrics (0 to 5 Years) and At-Risk Patients (6 to 64 Years) (1 - PCV) [facility] Start: 2006 Pneumococcal Vaccine : Pediatrics (0 to 5 Years) and At-Risk Patients (6 to 64 Years) (1 of 2 - PCV) Pneumococcal Vaccine: Pediatrics (0 to 5 Years) and At-Risk Patients (6 to 64 Years) (1 of 2 - PCV) [facility] Start: 2004 IPV Vaccines (4 of 4 - 4-dose series) IPV Vaccines (4 of 4 - 4-dose series) [facility] Start: 2000 COVID-19 Vaccine (#1) COVID-19 Vacci ne (#1) [facility] Start: 2000 GONORRHEA SCREEN GONORRHEA SCREEN [facility] Start: 2000 Hepatitis C antibody , confirmatory test HEPATITIS C VIRUS SCREENING [facility] Start: 2000 Yearly Adult Physical Yearly Adult P [facility] Anti-D (Rh) immunoglobulin W [facility] Bacteria identified in Urine by Culture Urine Culture Microbiology Routine Dysuria 08/06/2024 5:03 PM EDT [facility] Service Area Work Phone: Bacteria identified in Urine by Culture Urine Culture Microbiology Routine Urinary frequency Ordered: 06/21/2025 [facility] Area Work Phone: Comment on above: Ordered: 06/21/2025 CBC W Auto Different ial panel - Blood [facility] CBC W Auto Different ial panel - [facility] Celiac disease screen [facility] Cobalamin (Vitamin B 12) [Mass/volume] in Serum or Plasma [facility] Drugs identified in Urine by Screen method [facility] Erythrocyte mean corpuscular volume determination [facility] Ferritin [Mass/volum e] in Serum or Plasma [facility] Hematocrit [Volume Fraction] of Blood [facility] Hemoglobin [Mass/vol ume] in Blood [facility] Hemoglobin A1c/Hemoglobin.total in Blood [facility] IgA [Mass/volume] in Serum or Plasma [facility] Iron and Iron bindin g capacity panel - Serum or Plasma [facility] Leukocytes [#/volume ] in Blood [facility] Mean corpuscular hemoglobin concentration determination [facility] Mean corpuscular hemoglobin determination [facility] Neutrophil count [facility] Neutrophil percent differential count [facility] Patient Education [facility] Work Phone: Patient referral [facility] Work Phone: Platelets [#/volume] in Blood [facility] Procedure [facility] Red blood cell count [facility] Red cell distributio n width determination [facility] End: 10-31-2020 Standard ECG ECG ECG STAT One Time for 1 Occurrences starting 10/31/2020 until 10/31/2020 [facility] Comment on above: One Time for 1 Occur rences starting 10/31/2020 until 10/31/2020 Streptococcus agalac tiae [Presence] in Unspecified specimen by Organism specific culture [facility] T4 free measurement [facility] T4 free measurement [facility] T4 free measurement [facility] Thyroid stimulating hormone measurement [facility] Thyroid stimulating hormone measurement [facility] Thyroid stimulating hormone measurement [facility] Tissue transglutamin ase IgA Ab [Units/volume] in Serum [facility] Ultrasound scan for growth [facility] Urine culture [facility] Vitamin D, 25-hydrox y measurement [facility] Work Phone: [facility] NEGATED: Highlighted row has been ruled out! Planned Goals not documented [facility] Work Phone: Immunizations Immunization Date Immunization Notes Care Provider Sofi toro 08-22-2021 tetanus toxoid, reduced diphtheria toxoid, and acellular pertussis vaccine, adsorbed Chrystal Alamo Work Phone: [address] Work Phone: 08-04-2020 hepatitis B vaccine, pediatric or pediatric/adolescent dosage Alexa Beyer [facility] Work Phone: Comment on above: Series: 08-04-2020 measles, mumps and rubella virus vaccine Alexa Beyer [facility] Work Phone: Comment on above: Series: 08-04-2020 tetanus toxoid, reduced diphtheria toxoid, and acellular pertussis vaccine, adsorbed Alexa Beyer [facility] Work Phone: Comment on above: Series: 08-03-2020 hepatitis B vaccine, adult dosage Alexa Lancaster HEAD REFRIGERATION ENGINEER[employer] Work Phone: [facility] Work Phone: 08-03-2020 measles, mumps and rubella virus vaccine Alexa Lancaster HEAD REFRIGERATION ENGINEER[employer]ER Work Phone: [facility] 08-03-2020 tetanus toxoid, reduced diphtheria toxoid, and acellular pertussis vaccine, adsorbed Alexa Lancaster HEAD REFRIGERATION ENGINEER-[employer]IC [employer]ER Work Phone: [facility] Work Phone: 07-14-2020 influenza, seasonal, injectable Chrystal Wrightenhall Work Phone: [address] Work Phone: Comment on above: Series: 07-14-2020 influenza virus vaccine, unspecified formulation Alexa Lancaster HEAD REFRIGERATION ENGINEER-[employer]IC [employer]ER Work Phone: [facility] Work Phone: 03-25-2002 diphtheria, tetanus toxoids and acellular pertussis vaccine Chrystal Wrightenhall Work Phone: [address] Work Phone: 03-25-2002 measles, mumps and rubella virus vaccine Chrystal Wrightenhall Work Phone: [address] Work Phone: 04-30-2001 haemophilus influenz ae type b conjugate and Hepatitis B vaccine Chrystal Wrightenhall Work Phone: [address] Work Phone: 04-30-2001 measles, mumps and rubella virus vaccine Chrystal Wrightenhall Work Phone: [address] Work Phone: 04-30-2001 pneumococcal conjuga te vaccine, 7 valent Chrystal B Clifton Work Phone: [address] Work Phone: 2000 diphtheria, tetanus toxoids and acellular pertussis vaccine, unspecified formulation Chrystal Wrightenhall Work Phone: [address] Work Phone: 2000 pneumococcal conjuga te vaccine, 7 valent Chrystal B Cally Work Phone: [address] Work Phone: 2000 poliovirus vaccine, inactivated Chrystal B Cally Work Phone: [address] Work Phone: 2000 poliovirus vaccine, unspecified formulation Roe Allan PA-C Work Phone: [facility] Work Phone: 2000 diphtheria, tetanus toxoids and acellular pertussis vaccine, unspecified formulation Chrystal B Cally Work Phone: [address] Work Phone: 2000 haemophilus influenz ae type b conjugate and Hepatitis B vaccine Chrystal B Clifton Work Phone: [address] Work Phone: 2000 poliovirus vaccine, inactivated Chrystal B Clifton Work Phone: [address] Work Phone: 2000 diphtheria, tetanus toxoids and acellular pertussis vaccine, unspecified formulation Chrystal B Clifton Work Phone: [address] Work Phone: 2000 haemophilus influenz ae type b conjugate and Hepatitis B vaccine Chrystal B Cally Work Phone: [address] Work Phone: 2000 poliovirus vaccine, inactivated Chrystal B Clifton Work Phone: [address] Work Phone: Payers Date Payer Category Payer Self-pay [id number] 2021 Medicaid (Managed Care) 1.2. [id number] 2021 Unknown [id number] 2021 Unknown [id number] 2021 Managed Care (Private) 1.2.8 [id number] 2021 Unknown [id number] 2019 Unknown 2000 Unknown [id number] 2.16.84 0.1.664256.3.579.2.598 2000 Unknown [id number] 2.16. 840.1.710105.3.579.2.356 2000 Unknown [id number] 2.16. 840.1.162483.3.579.2.356 2000 Unknown [id number] 2.16. 840.1.738143.3.579.2.356 2000 Unknown [id number] 2.16. 840.1.048255.3.579.2.356 2000 Unknown [id number] 2.16. 840.1.886775.3.579.2.356 2000 Unknown [id number] 2.16. 840.1.333626.3.579.2.356 2000 Unknown [id number] 2.16. 840.1.912008.3.579.2.356 2000 Unknown [id number] 2.16.8 40.1.627959.3.579.2.1069 2000 Unknown [id number] 2.16.8 40.1.126410.3.579.2.1245 2000 Unknown [id number] 2.16.84 0.1.034926.3.579.2.1245 2000 Unknown [id number] 2.16.84 0.1.544040.3.579.2.1245 2000 Unknown [id number] 2.16.84 0.1.168136.3.579.2.1245 2000 Unknown [id number] 2.16. 840.1.320240.3.579.2.902 2000 Unknown [id number] 2.16. 840.1.864621.3.579.2.1244 2000 Unknown [id number] 2.16. 840.1.054017.3.579.2.1244 2000 Unknown [id number] 2.16. 840.1.515942.3.579.2.1244 2000 Unknown [id number] 2.16. 840.1.250170.3.579.2.1244 2000 Unknown [id number] 2.16. 840.1.522354.3.579.2.1244 2000 Unknown [id number] 2.16.8 40.1.193668.3.579.2.1243 2000 Unknown [id number] 2.16.8 40.1.271636.3.579.2.1243 1959 Unknown [id number] Unknown [id number] Unknown [id number] 2.16.8 40.1.299719.3.579.2.462 Unknown [id number] 2.16.8 40.1.734749.3.579.2.462 Unknown [id number] 2.16.8 40.1.922041.3.579.2.462 Unknown [id number] 2.16.8 40.1.607744.3.579.2.462 Unknown [id number] 2.16.8 40.1.035362.3.579.2.462 Unknown [id number] 2.16.8 40.1.706978.3.579.2.462 Unknown [id number] 2.16.8 40.1.448118.3.579.2.462 Unknown [id number] 2.16.8 40.1.127355.3.579.2.462 Unknown [id number] 2.16.8 40.1.364393.3.579.2.462 Unknown [id number] 2.16.8 40.1.170608.3.579.2.462 Unknown [id number] 2.16.8 40.1.996691.3.579.2.462 Unknown [id number] 2.16.8 40.1.473666.3.579.2.462 Unknown [id number] 2.16.8 40.1.885599.3.579.2.462 Unknown [id number] 2.16.8 40.1.304256.3.579.2.462 Unknown [id number] 2.16.8 40.1.399782.3.579.2.462 Unknown [id number] 2.16.8 40.1.708326.3.579.2.462 Unknown [id number] 2.16.8 40.1.885246.3.579.2.462 Unknown [id number] 2.16.8 40.1.953408.3.579.2.462 Social History Date Type Detail Facility Start: 10-31-2020 Tobacco smoking status MIIS Current some day smoker [facility] Start: 10-31-2020 End: 01-30-2023 Tobacco use and exposure Never used [facility] Start: 10-31-2020 End: 07-29-2025 Alcohol intake Current drinker of alcohol (finding) [facility] Start: 10-31-2020 [facility] Start: 10-31-2020 Alcohol Comment occasional [facility] Start: 2000 Sex Assigned At Not on file [facility] Start: 03-04-2023 End: 01-05-2025 Exposure to SARS-CoV-2 (event) Not sure [facility] Start: 02-08-2023 End: 07-29-2025 Coffee Coffee [facility] [address] [employer] Work Phone: Comment on above: Vape pen, quit on ; Start: 05-27-2023 End: 12-12-2023 Tobacco smoking consumption unknown [facility] Start: 01-30-2023 End: 04-05-2025 Tobacco smoking status NHIS Ex-smoker [facility] Work Phone: History of tobacco use Current smoker [facility] Work Phone: History of tobacco use Cigarette Smoker [facility] Work Phone: Start: 02-08-2023 End: 07-29-[address] [facility] Work Phone: Start: 01-29-2023 End: 02-08-2023 Exposure to SARS-CoV-2 (event) Unable to assess [facility] Start: 2000 Sex Assigned At Female [facility] Start: 10-18-2023 Alcohol intake Ex-drinker (finding) [facility] Work Phone: Start: 11-24-2024 Alcohol Comment rare [facility] Work Phone: Start: 09-08-2022 End: 01-01-2025 Sex Female (finding) [facility] Start: 09-08-[address] [facility] NEGATED: Highlighted row - - -[place] Work Phone: NEGATED: Highlighted row Not [facility] Medical Equipment Procedure Code Equipment Code [...] /State Functional Status Date Assessment Result Facility 07-29-2025 Patient Health Questionnaire 2 item (PHQ-2) [Reported] [facility] Work Phone: 07-29-2025 [place] - suicide severity rating scale screener - recent [C-SSRS] [facility] Work Phone: 07-29-2025 [facility] Work Phone: 07-29-2025 Functional status 109/71 [facility] Work Phone: 07-29-2025 Vital signs 88 07/29/2025 9: 00 AM EDT Dulce Noble LPN [facility] Work Phone: 07-21-2025 Patient Health Questionnaire 2 item (PHQ-2) [Reported] [facility] Work Phone: 07-21-2025 Functional status 106/71 [facility] Work Phone: 07-21-2025 Vital signs 91 07/21/2025 9: 47 AM EDT Mia Richter CMA [facility] Work Phone: 07-21-2025 [facility] Work Phone: 06-03-2025 Patient Health Questionnaire 2 item (PHQ-2) [Reported] [facility] Work Phone: Functional observable [facility] NEGATED: Highlighted row Functional performance Functional status health issues are not documented Disease [facility] Internal Medicine Work Phone: Mental Status Date Assessment Result Facility 04-06-2025 Cognitive function Voice/Name [facility] Work Phone: 10-18-2023 Cognitive function Awake;Alert;A ppropriate ;Follows Commands [facility] Work Phone: 10-16-2023 Cognitive function Level Of Cons ciousness Awake;Alert;Appropriate ;Follows Commands [facility] Work Phone: 11-08-2021 Cognitive functi ons :44 [facility] NEGATED: Highlighted row Cognitive function [Interpretation] Cognitive status health issues are not documented Disease [facility] Internal [facility] Work Phone: Clinical Notes 01-12-2021 to 07-29-2025 Brandi Saucedo RN - 07/29/2025 12:00 PM Doyle Avery MD - 07/29/2025 9:00 AM EDTRadajuan Alamo PA-C - 07/21/2025 9:40 AM EDLAMONTE García CNP - 06/21/2025 2:15 PM EDT Note Date & Type Note Facility 07-29-2025 History of Present illness Narrative Lab drawn at clinic visit today Referral faxed to Dr Gu for scope referral- they are to call pt to schedule Pt set up for IV feraheme 08/05 9am- only 1 dose to be given Pt to get labs 09/02 at the hosp 08/[address] [place] Reviewed AVS with patient- patient verbalizes understanding HEMATOLOGY INITIAL OUTPATIENT VISIT: [facility] Location: [place] Patient ID: Johny Torres is a 25 y.o. female Referring Physician: Chrystal Alamo PA-C [address] [place] [address] Primary Care Provider: Chrystal Alamo PA-C Visit Type: Initial Visit Reason for consult: Subjective HISTORY OF PRESENT ILLNESS: Johny Torres is a 25 y.o. female with pmhx as below including CLARENCE and Sivan's thyroiditis who presents today for initial hematology consultation for further evaluation of anemia. She states she has CLARENCE since age 14. Menstruation started at age 11. Denies menorrhagia but having short menstrual cycle (24 days). Recently diagnosed adenomyosis at outside [facility]. Had miscarriage at the end of April. Denies melena, hematochezia. Never had problem with GI bleeding. Currently constipated due to PO iron tablets. She states she has been taking PO iron daily on empty stomach for years. Denies any other bleeding such as epistaxis/gum bleeding/hematuria/hemoptysis. Her diet is well balanced, she is consuming red meat as well. She states Celiac labs checked at [facility] and those were normal. Denies prior bariatric/gastric surgery and chronic PPI use. Received IV iron during 2 years ago at OSH for multiple sessions and developed flu like symptoms, vomiting. She is on PPI for a week or so due to pain around epigastric/L rib in the morning which resolves by eating. No clinical evidence of hemolysis. Upon chart review, Hb has been intermittently low since 2019. Ferritin has also been intermittently low, it was normal in 2019. Last CBC from 07/12/25 showed Hb 10.7, MCV 86.4, mild neutropenia 1350. Iron labs showed ferritin 7, iron sat 11%. TSH, fT4 pending but was normal 6 mo ago. States feeling more short of breath and fatigued. No hx of DVT/PE. No personal hx of cancer. Colon cancer in grandmother. No fam hx of bleeding. Objective PAST MEDICAL HISTORY: Medical History[1] PAST SURGICAL HISTORY: Surgical History[2] ALLERGIES: Allergies[3] MEDICATIONS: Current Outpatient Medications Medication Instructions albuterol (Ventolin HFA) 90 mcg/actuation inhaler 2 puffs, inhalation, Every 4 hours PRN busPIRone (BUSPAR) 5 mg, oral, 3 times daily PRN cholecalciferol (VITAMIN D3) 1,000 Units, Daily famotidine (PEPCID) 20 mg, oral, 2 times daily ferrous gluconate (Fergon) 324 (38 Fe) mg tablet 38 mg of elemental iron, Daily with breakfast ibuprofen 600 mg, oral, 3 times daily PRN levothyroxine (Synthroid, Levoxyl) 50 mcg tablet 1 tablet, Daily (629) omeprazole (PRILOSEC) 20 mg, oral, Daily, Do not crush or chew. ondansetron ODT (ZOFRAN-ODT) 4 mg, oral, Every 8 hours PRN no115/iron/folic acid ( 19 ORAL) Take by mouth. SOCIAL HISTORY: Social History Tobacco Use Smoking status: Former Types: Cigarettes Smokeless tobacco: Never Substance Use Topics Alcohol use: Yes Alcohol/week: 3.0 standard drinks of alcohol Types: 3 Standard drinks or equivalent per week Comment: rare FAMILY HISTORY: Family History[4] REVIEW OF SYSTEMS: 10-pt ROS reviewed and negative except as mentioned above. PHYSICAL EXAMINATION: There were no vitals taken for this visit. Wt Readings from Last 5 Encounters: 07/21/25 63 kg (139 lb) 06/21/25 63.5 kg (140 lb) 06/09/25 63 kg (139 lb) 06/03/25 63 kg (138 lb 12.8 oz) 01/05/25 62.1 kg (137 lb) GEN: Well-appearing, no acute distress, breathing comfortably on room air. SKIN: No rashes PSYCH: Appropriate mood and affect Diagnostic Results IMAGING DATA: LABORATORY DATA: Lab Results Component Value Date WBC 3.2 (L) 07/12/2025 NEUTROABS 2.46 02/26/2024 IGABSOL 0.02 02/26/2024 LYMPHSABS 1.87 02/26/2024 MONOSABS 0.34 02/26/2024 EOSABS 112 07/12/2025 BASOSABS 29 07/12/2025 RBC 3.82 07/12/2025 MCV 86.4 07/12/2025 MCHC 32.4 07/12/2025 HGB 10.7 (L) 07/12/2025 HCT 33.0 (L) 07/12/2025 PLT 243 07/12/2025 No results found for: RETICCTPCT Lab Results Component Value Date CREATININE 0.63 11/25/2024 BUN 11 11/25/2024 EGFR 127 11/25/2024 NA 138 11/25/2024 K 4.0 11/25/2024 CL 105 11/25/2024 CO2 23 11/25/2024 Lab Results Component Value Date ALT 5 (L) 11/25/2024 AST 10 11/25/2024 ALKPHOS 53 11/25/2024 BILITOT 0.4 11/25/2024 Lab Results Component Value Date TSH 2.26 11/25/2024 Lab Results Component Value Date TSH 2.26 11/25/2024 M6RMGEM 156 11/16/2020 T9KCDND 11.0 11/16/2020 Lab Results Component Value Date IRON 45 07/12/2025 TIBC 427 07/12/2025 FERRITIN 7 (L) 07/12/2025 Lab Results Component Value Date [id number] 341 11/25/2024 Lab Results Component Value Date FOLATE 18.9 03/19/2023 All pertinent pathology, imaging, and labs were personally reviewed and interpreted in clinic. Findings as per HPI and EMR. Assessment/Plan ASSESSMENT and PLAN: Johny Torres is a 25 y.o. female with: # Iron deficiency anemia # Normocytic anemia - Will complete anemia schilling in the setting of normal MCV, ordered FA, MMA, vit B12, copper - Low suspicion with no clinical evidence of hemolysis and prior normal lei so holding off hemolysis labs but could consider if no appropriate response to IV iron - GI referral placed to rule out any source of bleeding and also to rule out H pylori - Holding off Celiac labs as it was normal before - Planned to give 1020 mg Ferumoxytol, scheduled on 08/05 - Repeat labs CBC, iron labs, retics 4 wks after IV iron ~09/02 - RTC with Dr. Valentina Avery MD 07/29/2025 [1] Past Medical History: Diagnosis Date Allergic Anemia Anxiety Asthma ([facility]) Depression Disease of thyroid gland Encounter for full-term uncomplicated delivery Normal vaginal delivery Encounter for gynecological examination (general) (routine) without abnormal findings Pap test, as part of routine gynecological examination Other conditions influencing health status Menstruation Other specified related conditions, unspecified trimester ([facility]) 10/31/2021 Rh negative, antepartum Personal history of other endocrine, nutritional and metabolic disease History of Sivan thyroiditis Personal history of other infectious and parasitic diseases 03/20/2021 History of herpes simplex infection [2] Past Surgical History: Procedure Laterality Date MOUTH SURGERY THYROGLOSSAL DUCT EXCISION cyst TONSILLECTOMY [3] Allergies Allergen Reactions Hydrocodone Other Hydrocodone-Acetaminophen Other Hydrocodone-Guaifenesin Other Hydromorphone Other Latex Rash [4] Family History Problem Relation Name Age of Onset Depression Mother Matilda Asthma Father Velasquez documented in this encounter [facility] Work Phone: 07-21-2025 History of Present illness Narrative Subjective Patient ID: Johny Torres is a 25 y.o. female who presents for Follow-up (F/U WITH LABS) HPI LABS Med check Lower iron Miscarried and April 06 was D and C Iron was started jun 03 and taking daily but still low We discussed add on Oakley chewable with iron but given her hx will start referral to heme as she has needed infusions in the past Consider need for further pelvic work up and scopes as discussed as well ' Constipation - to use miralx as needed to prevent from constipation with iron Rib discomfort - resolved with omeprazole. We discussed if needed using pepcid bid as well but doing well with PPI at this time Anxiety has improved with buspar prn as well Asthma - rescue inhaler prn Hypothyroid - on meds Low B12 Vit D Def - taking OTC Preventative PAP Mammo DEXA Colon Fall - NEG NOV 2024 PHQ2 - NEG NOV 2024 Problem List[1] Review of Systems Constitutional: Positive for fatigue. [...] for flank pain, frequency and urgency. Musculoskeletal: Negative for back pain, gait problem and neck pain. Skin: Negative for rash and wound. Neurological: Negative for dizziness, tremors, syncope, numbness and headaches. Hematological: Does not bruise/bleed easily. Psychiatric/Behavioral: Negative for confusion, sleep disturbance and suicidal ideas. Medical History[2] Surgical History[3] Family History[4] Social History[5] Allergies[6] Current Medications[7] Objective BP 106/71 Pulse 91 Ht 1.6 m (5' 3") Wt 63 kg (139 lb) BMI 24.62 kg/m Physical Exam Vitals reviewed. Constitutional: Appearance: [...] tenderness or left CVA tenderness. Musculoskeletal: General: No tenderness. Normal range of motion. Cervical back: Normal range of motion and neck supple. No tenderness. Skin: General: Skin is warm and dry. Neurological: General: No focal deficit present. Mental Status: She is alert and oriented to person, place, and time. Psychiatric: Mood and Affect: Mood normal. Behavior: Behavior normal. Testing Component Latest Ref [facility] 07/12/2025 WHITE BLOOD CELL COUNT 3.8 - 10.8 Thousand/uL 3.2 (L) RED BLOOD CELL COUNT 3.80 - 5.10 Million/uL 3.82 HEMOGLOBIN 11.7 - 15.5 g/dL 10.7 (L) HEMATOCRIT 35.0 - 45.0 % 33.0 (L) MCV 80.0 - 100.0 fL 86.4 MCH 27.0 - 33.0 pg 28.0 MCHC 32.0 - 36.0 g/dL 32.4 RDW 11.0 - 15.0 % 13.2 PLATELET COUNT 140 - 400 Thousand/uL 243 MPV 7.5 - 12.5 fL 9.8 ABSOLUTE NEUTROPHILS 1,500 - 7,800 cells/uL 1,350 (L) ABSOLUTE LYMPHOCYTES 850 - 3,900 cells/uL 1,344 ABSOLUTE MONOCYTES 200 - 950 cells/uL 365 ABSOLUTE EOSINOPHILS 15 - 500 cells/uL 112 ABSOLUTE BASOPHILS 0 - 200 cells/uL 29 NEUTROPHILS % 42.2 LYMPHOCYTES % 42.0 MONOCYTES % 11.4 EOSINOPHILS % 3.5 BASOPHILS % 0.9 IRON, TOTAL 40 - 190 mcg/dL 45 IRON BINDING CAPACITY 250 - 450 mcg/dL (calc) 427 % SATURATION 16 - 45 % (calc) 11 (L) FERRITIN 16 - 154 ng/mL 7 (L) iron - supplement inc and follow with heme If she cannot be seen sooner or given symptoms she can have labs done sooner for recehck Impression MDM 1) COMPLEXITY: MORE THAN 1 [...] Problem List Items Addressed This Visit ICD-10-CM Depression, major, single episode, mild F32.0 SOPHIA (generalized anxiety disorder) F41.1 Iron deficiency anemia - Primary D50.9 Relevant Orders Referral To Hematology and Oncology Abscess L02.91 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 Relevant Orders Thyroid Stimulating Hormone Thyroxine, Free Magnesium Dyspepsia R10.13 Relevant Medications famotidine (Pepcid) 20 mg tablet Other Visit Diagnoses Codes Screening for diabetes mellitus Z13.1 Relevant Orders Comprehensive Metabolic Panel Screening for lipid disorders Z13.220 Relevant Orders Lipid Panel Vitamin D deficiency E55.9 Relevant Orders Vitamin D 25-Hydroxy,Total (for eval of Vitamin D levels) FU in 3-6 mo with labs at [facility] fasting and med check [1] Patient Active Problem List Diagnosis Depression, major, single episode, mild External hemorrhoids SOPHIA (generalized anxiety disorder) Genital herpes Intractable migraine without aura and with status migrainosus Iron deficiency anemia Low thyroid stimulating hormone (TSH) level Mild persistent asthma without complication ([facility]) Seasonal allergies Thyroglossal cyst Thyroid pain Thyroiditis TMJ click Pleurisy Asthmatic bronchitis without complication ([facility]) Abscess Sivan's thyroiditis Acute non-recurrent maxillary sinusitis Nasal congestion Pelvic pain in female [2] Past Medical History: Diagnosis Date Allergic Anemia Anxiety Asthma ([facility]) Depression Disease of thyroid gland Encounter for full-term uncomplicated delivery Normal vaginal delivery Encounter for gynecological examination (general) (routine) without abnormal findings Pap test, as part of routine gynecological examination Other conditions influencing health status Menstruation Other specified related conditions, unspecified trimester ([facility]) 10/31/2021 Rh negative, antepartum Personal history of other endocrine, nutritional and metabolic disease History of Sivan thyroiditis Personal history of other infectious and parasitic diseases 03/20/2021 History of herpes simplex infection [3] Past Surgical History: Procedure Laterality Date MOUTH SURGERY THYROGLOSSAL DUCT EXCISION cyst TONSILLECTOMY [4] Family History Problem Relation Name Age of Onset Depression Mother Matilda Asthma Father Velasquez [5] Social History Tobacco Use Smoking status: Former Types: Cigarettes Smokeless tobacco: Never Vaping Use Vaping status: Never Used Substance Use Topics Alcohol use: Yes Alcohol/week: 3.0 standard drinks of alcohol Types: 3 Standard drinks or equivalent per week Comment: rare Drug use: Not Currently [6] Allergies Allergen Reactions Hydrocodone Other Hydrocodone-Acetaminophen Other Hydrocodone-Guaifenesin Other Hydromorphone Other Latex Rash [7] Current Outpatient Medications Medication Sig Dispense Refill busPIRone (Buspar) 5 mg tablet Take 1 tablet (5 mg) by mouth 3 times a day as needed (anxiety). 90 tablet 0 cholecalciferol (Vitamin D3) 25 mcg (1000 units) tablet Take 1 tablet (1,000 Units) by mouth once daily. ferrous gluconate (Fergon) 324 (38 Fe) mg tablet Take 1 tablet by mouth once daily with breakfast. ibuprofen 600 mg tablet Take 1 tablet (600 mg) by mouth 3 times a day as needed for mild pain (1 - 3) (pain). 30 tablet 0 levothyroxine (Synthroid, Levoxyl) 50 mcg tablet Take 1 tablet (50 mcg) by mouth early in the morning.. omeprazole (PriLOSEC) [address] capsule Take 1 capsule (20 mg) by mouth once daily. Do not crush or chew. 30 capsule 5 ondansetron ODT (Zofran-ODT) 4 mg disintegrating tablet Dissolve 1 tablet (4 mg) in the mouth every 8 hours if needed for nausea. 30 tablet 0 albuterol (Ventolin HFA) 90 mcg/actuation inhaler Inhale 2 puffs every 4 hours if needed for wheezing or shortness of breath. 18 g 3 famotidine (Pepcid) 20 mg tablet Take 1 tablet (20 mg) by mouth twice a day. (Patient not taking: Reported on 07/21/2025) no115/iron/folic acid ( 19 ORAL) Take by mouth. (Patient not taking: Reported on 07/21/2025) No current facility-administered medications for this visit. documented in this encounter [facility] Work Phone: 06-24-2025 Radiology Diagnostic study note [facility] Imaging Services [address] [place] [address] Pelvic w/ Transvaginal MR#: [id number] Acct: [id number] Name: JOHNY TORRES Rep #: [id number] : 2000 F 25 From: Dirk Gomez MD PCP: CURTIS Mena Status: REG CLI Study:Pelvic w/ Transvaginal Date of Exam: 06/24/25 Exam# [id number] Ordering Dr: Esme Christie MD PROCEDURE: PELVIC W/ TRANSVAGINAL 06/24/2025 REASON FOR EXAM: OVARIAN CYST TECHNIQUE: Procedure Code: [id number] Modality: US Procedure: PELVIC W/ TRANSVAGINAL COMPARISON: Prior study dated February 08, 2025. FINDINGS: Measurements: Uterus: 10.7 cm x 8.1 cm x 5.7 cm with a volume of 258.4 mL Endometrial Thickness: 10 mm Right Ovary: 2.7 cm x 2.1 cm x 1.4 cm with a volume of 3.9 mL. Left Ovary: 3.9 cm x 2.7 cm x 2.2 cm with a volume of 12.2 mL. Uterus: Unremarkable Endometrium: Heterogeneous appearance of the endometrium with small cystic spaces. Right ovary: Normal size and echotexture. Left ovary: Normal size and echotexture. Other: No large pelvic mass identified. US/Pelvic w/ Transvaginal IMPRESSION: Heterogeneous appearance of the endometrium with small cystic spaces. Reading Location: [id number] CC: Dr. Esme Baker MD; CURTIS Mena ~ Acid Crane Operator: Signed [facility] 06-21-2025 History of Present illness Narrative Subjective HPI 25 y.o. female presents for evaluation of suprapubic tenderness and increased urinary frequency that began 5 days ago. States she did take a test this morning which was negative. States she had a D&C in March and has not had a period since. States she contacted her OB and they advised she get a UA and urine culture done. Denies vaginal discharge, fever, nausea, vomiting, diarrhea, flank pains, body aches, fatigue or any other associated similar complaint. No concern for STDs today. No other complaints. ROS See HPI Objective Vitals: 06/21/25 1420 BP: 103/63 Pulse: 75 Temp: 36.9 C (98.5 F) SpO2: 98% RX Allergies[1] Medication Documentation Review Audit Reviewed by Reny Johnson MA (Belt Tender) on 06/21/25 at 1419 Medication Order Taking? Sig Documenting Provider Last Dose Status albuterol (Ventolin HFA) 90 mcg/actuation inhaler [id number] No Inhale 2 puffs every 4 hours if needed for wheezing or shortness of breath. Alexa Lancaster, HEAD REFRIGERATION ENGINEER-CERAMIC TILER Taking 01/30/24 2359 busPIRone (Buspar) 5 mg tablet [id number] Yes Take 1 tablet (5 mg) by mouth 3 times a day as needed (anxiety). Chrystal Alamo PA-C Active cholecalciferol (Vitamin D3) 25 mcg (1000 units) tablet [id number] Yes Take 1 tablet (1,000 Units) by mouth once daily. Historical Provider, Active famotidine (Pepcid) 20 mg tablet [id number] Take 1 tablet (20 mg) by mouth twice a day. Patient not taking: Reported on 06/03/2025 Historical Provider, Active ferrous gluconate (Fergon) 324 (38 Fe) mg tablet [id number] Take 1 tablet by mouth once daily with breakfast. Patient not taking: Reported on 06/21/2025 Historical Provider, Active ibuprofen 600 mg tablet [id number] Yes Take 1 tablet (600 mg) by mouth 3 times a day as needed for mild pain (1 - 3) (pain). Chrystal Alamo PA-C Active levothyroxine (Synthroid, Levoxyl) 50 mcg tablet [id number] Yes Take 1 tablet (50 mcg) by mouth early in the morning.. Historical Provider, Active omeprazole (PriLOSEC) [address] capsule [id number] Yes Take 1 capsule (20 mg) by mouth once daily. Do not crush or chew. Chrystal Alamo PA-C Active ondansetron ODT (Zofran-ODT) 4 mg disintegrating tablet [id number] Yes Dissolve 1 tablet (4 mg) in the mouth every 8 hours if needed for nausea. Chrystal Alamo PA-C Active no115/iron/folic acid ( 19 ORAL) [id number] No Take by mouth. Patient not taking: Reported on 06/03/2025 Historical Provider, Taking Active Medical History[2] Surgical History[3] Physical Exam Vitals and nursing note reviewed. Constitutional: General: She is not in acute distress. Appearance: Normal appearance. She is not ill-appearing or toxic-appearing. Cardiovascular: Rate and Rhythm: Normal rate and regular rhythm. Abdominal: General: There is no distension. Palpations: Abdomen is soft. Tenderness: There is abdominal tenderness in the suprapubic area. There is no right CVA tenderness, left CVA tenderness, guarding or rebound. Genitourinary: General: Normal vulva. Vagina: No vaginal discharge. Skin: General: Skin is warm and dry. Neurological: General: No focal deficit present. Mental Status: She is alert and oriented to person, place, and time. Psychiatric: Mood and Affect: Mood normal. Behavior: Behavior normal. Recent Results (from the past hour) POCT UA (nonautomated w/o microscopy) manually resulted Collection Time: 06/21/25 2:24 PM Result Value Ref Range POC Color, Urine Yellow Straw, Yellow, Light-Yellow POC Appearance, Urine Clear Clear POC Glucose, Urine NEGATIVE NEGATIVE mg/dl POC Bilirubin, Urine NEGATIVE NEGATIVE POC Ketones, Urine NEGATIVE NEGATIVE mg/dl POC Specific [place], Urine 1.025 1.005 - 1.035 POC Blood, Urine TRACE-Intact (A) NEGATIVE POC PH, Urine 6.0 No Reference Range Established PH POC Protein, Urine NEGATIVE NEGATIVE mg/dl POC Urobilinogen, Urine 0.2 0.2, 1.0 EU/DL Poc Nitrite, Urine NEGATIVE NEGATIVE POC Leukocytes, Urine NEGATIVE NEGATIVE Assessment Assessment/Plan/MDM Johny was seen today for uti. Diagnoses and all orders for this visit: Urinary frequency (Primary) - POCT UA (nonautomated w/o microscopy) manually resulted - Urine Culture Urine not remarkable for UTI today. Urine sent for culture. Encouraged patient to follow up with OB as scheduled. At time of discharge patient was clinically well-appearing and appropriate for outpatient management. She was educated regarding diagnosis, supportive care, OTC and any Rx medications. She was given the opportunity to ask questions prior to discharge. She verbalized understanding of my discussion of the plans for treatment, expected course, indications to return to or seek further evaluation in ED, and the need for timely follow up as directed. Ferny Zamora CNP [facility] [1] Allergies Allergen Reactions Hydrocodone Other Hydrocodone-Acetaminophen Other Hydrocodone-Guaifenesin Other Hydromorphone Other Latex Rash [2] Past Medical History: Diagnosis Date Allergic Anemia Anxiety Asthma Depression Disease of thyroid gland Encounter for full-term uncomplicated delivery Normal vaginal delivery Encounter for gynecological examination (general) (routine) without abnormal findings Pap test, as part of routine gynecological examination Other conditions influencing health status Menstruation Other specified related conditions, unspecified trimester ([facility]) 10/31/2021 Rh negative, antepartum Personal history of other endocrine, nutritional and metabolic disease History of Sivan thyroiditis Personal history of other infectious and parasitic diseases 03/20/2021 History of herpes simplex infection [3] Past Surgical History: Procedure Laterality Date MOUTH SURGERY THYROGLOSSAL DUCT EXCISION cyst TONSILLECTOMY documented in this encounter [facility] Work Phone: 06-09-2025 History of Present illness Narrative Subjective Patient ID: Johny TORRES is a 25 y.o. female who presents for Follow-up (C/O PAIN UNDER LT RIBS X1 WK THINKS IT MAY BE PANIC ATTACKS AND DECREASED APPETITE ) HPI Miscarried and April 06 was D and C Discomfort under L rib x 2 weeks Comes and goes but exp daily and can last maybe about 1 hr Symptoms more in the AM and waking up with it Pt notes bloating and hasn't eaten yet - sometimes improvement with eating but other times worse Pt questions if its her lung bc she feels the feeling with inhale /exhale but no cough, SOB, etc Given hx and PE I suspect this is more GERD and dyspepsia. Given lower iron consider need for repeat labs or scope - concern for ulcer but I suspect symptoms would be worse. Pt is concerned with pulm issues but less likely - will do CXR Consider anxiety which likely is contributing but again with hx and PE likely not the root of the symptoms - pt to use buspar prn Med check Asthma - rescue inhaler prn Hypothyroid - on meds Low B12 Vit D Def - taking OTC Iron - advised to take daily Preventative PAP Mammo DEXA Colon Fall - NEG NOV 2024 PHQ2 - NEG NOV 2024 Problem List[1] Review of Systems Constitutional: Positive for fatigue. Negative for chills and fever. HENT: Negative for congestion, rhinorrhea, sinus pain, sore throat and tinnitus. Eyes: Negative for discharge, redness and visual disturbance. Respiratory: Negative for cough, chest tightness, shortness of breath and wheezing. Cardiovascular: Negative for chest pain, palpitations and leg swelling. Gastrointestinal: Positive for abdominal pain. Negative for constipation, diarrhea, nausea and vomiting. Endocrine: Negative for cold intolerance and heat intolerance. Genitourinary: Negative for flank pain, frequency and urgency. Musculoskeletal: Negative for back pain, gait problem and neck pain. Skin: Negative for rash and wound. Neurological: Negative for dizziness, tremors, syncope, numbness and headaches. Hematological: Does not bruise/bleed easily. Psychiatric/Behavioral: Negative for confusion, sleep disturbance and suicidal ideas. Medical History[2] Surgical History[3] Family History[4] Social History[5] Allergies[6] Current Medications[7] Objective BP 106/69 Pulse 83 Ht 1.6 m (5' 3") Wt 63 kg (139 lb) BMI 24.62 kg/m Physical Exam Vitals reviewed. Constitutional: Appearance: [...] Palpations: Abdomen is soft. Tenderness: There is abdominal tenderness. There is no right CVA tenderness or left CVA tenderness. Comments: LUQ /epigastric tenderness Musculoskeletal: General: No tenderness. Normal range of motion. Cervical back: Normal range of motion and neck supple. No tenderness. Skin: General: Skin is warm and dry. Neurological: General: No focal deficit present. Mental Status: She is alert and oriented to person, place, and time. Psychiatric: Mood and Affect: Mood normal. Behavior: Behavior normal. Testing Impression MDM 1) COMPLEXITY: 1 UNDIAGNOSED NEW [...] Problem List Items Addressed This Visit ICD-10-CM SOPHIA (generalized anxiety disorder) F41.1 Relevant Medications busPIRone (Buspar) 5 mg tablet Iron deficiency anemia D50.9 Mild persistent asthma without complication (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 Other Visit Diagnoses Codes Atypical chest pain - Primary R07.89 Relevant Orders XR chest 2 views Dyspepsia R10.13 Relevant Medications omeprazole (PriLOSEC) [address] capsule Nausea R11.0 Relevant Medications ondansetron ODT (Zofran-ODT) 4 mg disintegrating tablet FU in 1-2 mo with GI check [1] Patient Active Problem List Diagnosis Depression, major, single episode, mild External hemorrhoids SOPHIA (generalized anxiety disorder) Genital herpes Intractable migraine without aura and with status migrainosus Iron deficiency anemia Low thyroid stimulating hormone (TSH) level Mild persistent asthma without complication ([facility]) Seasonal allergies Thyroglossal cyst Thyroid pain Thyroiditis TMJ click Pleurisy Asthmatic bronchitis without complication ([facility]) Abscess Sivan's thyroiditis Acute non-recurrent maxillary sinusitis Nasal congestion Pelvic pain in female [2] Past Medical History: Diagnosis Date Allergic Anemia Anxiety Asthma Depression Disease of thyroid gland Encounter for full-term uncomplicated delivery Normal vaginal delivery Encounter for gynecological examination (general) (routine) without abnormal findings Pap test, as part of routine gynecological examination Other conditions influencing health status Menstruation Other specified related conditions, unspecified trimester ([facility]) 10/31/2021 Rh negative, antepartum Personal history of other endocrine, nutritional and metabolic disease History of Sivan thyroiditis Personal history of other infectious and parasitic diseases 03/20/2021 History of herpes simplex infection [3] Past Surgical History: Procedure Laterality Date MOUTH SURGERY THYROGLOSSAL DUCT EXCISION cyst TONSILLECTOMY [4] Family History Problem Relation Name Age of Onset Depression Mother Matilda Asthma Father Velasquez [5] Social History Tobacco Use Smoking status: Former Types: Cigarettes Smokeless tobacco: Never Vaping Use Vaping status: Never Used Substance Use Topics Alcohol use: Yes Alcohol/week: 3.0 standard drinks of alcohol Types: 3 Standard drinks or equivalent per week Comment: rare Drug use: Not Currently [6] Allergies Allergen Reactions Hydrocodone Other Hydrocodone-Acetaminophen Other Hydrocodone-Guaifenesin Other Hydromorphone Other Latex Rash [7] Current Outpatient Medications Medication Sig Dispense Refill cholecalciferol (Vitamin D3) 25 mcg (1000 units) tablet Take 1 tablet (1,000 Units) by mouth once daily. ferrous gluconate (Fergon) 324 (38 Fe) mg tablet Take 1 tablet by mouth once daily with breakfast. ibuprofen 600 mg tablet Take 1 tablet (600 mg) by mouth 3 times a day as needed for mild pain (1 - 3) (pain). 30 tablet 0 levothyroxine (Synthroid, Levoxyl) 50 mcg tablet Take 1 tablet (50 mcg) by mouth early in the morning.. ondansetron ODT (Zofran-ODT) 4 mg disintegrating tablet Dissolve 1 tablet (4 mg) in the mouth every 8 hours if needed. albuterol (Ventolin HFA) 90 mcg/actuation inhaler Inhale 2 puffs every 4 hours if needed for wheezing or shortness of breath. 18 g 3 famotidine (Pepcid) 20 mg tablet Take 1 tablet (20 mg) by mouth twice a day. (Patient not taking: Reported on 06/09/2025) no115/iron/folic acid ( 19 ORAL) Take by mouth. (Patient not taking: Reported on 06/09/2025) No current facility-administered medications for this visit. documented in this encounter [facility] Work Phone: 06-03-2025 History of Present illness Narrative Subjective Patient ID: Johny TORRES is a 25 y.o. female who presents for Follow-up (6 MONTH F/U WITH LABS C/O INCREASED FATIGUE MISCARRIED ON 05/06) HPI LABS Miscarried and April 06 was D and C She has cont to bleed until this past week I suspect iron is extra low bc of this - advised to take iron more routinely and will repeat in 1-4 mo - sooner pending symptoms She does have follow up with [employer] in near future as well Med check Asthma - rescue inhaler prn Hypothyroid - on meds Low B12 Vit D Def - taking OTC Iron - advised to take daily Preventative PAP Mammo DEXA Colon Fall - NEG NOV 2024 PHQ2 - NEG NOV 2024 Problem List[1] Review of Systems Constitutional: Positive for fatigue. [...] for flank pain, frequency and urgency. Musculoskeletal: Negative for back pain, gait problem and neck pain. Skin: Negative for rash and wound. Neurological: Negative for dizziness, tremors, syncope, numbness and headaches. Hematological: Does not bruise/bleed easily. Psychiatric/Behavioral: Negative for confusion, sleep disturbance and suicidal ideas. Medical History[2] Surgical History[3] Family History[4] Social History[5] Allergies[6] Current Medications[7] Objective BP 109/86 Pulse 86 Ht 1.6 m (5' 3") Wt 63 kg (138 lb 12.8 oz) BMI 24.59 kg/m Physical Exam Vitals reviewed. Constitutional: Appearance: [...] tenderness or left CVA tenderness. Musculoskeletal: General: No tenderness. Normal range of motion. Cervical back: Normal range of motion and neck supple. No tenderness. Skin: General: Skin is warm and dry. Neurological: General: No focal deficit present. Mental Status: She is alert and oriented to person, place, and time. Psychiatric: Mood and Affect: Mood normal. Behavior: Behavior normal. Testing Component Latest Ref [facility] 06/02/2025 WHITE BLOOD CELL COUNT 3.8 - 10.8 Thousand/uL 4.5 RED BLOOD CELL COUNT 3.80 - 5.10 Million/uL 3.82 HEMOGLOBIN 11.7 - 15.5 g/dL 10.7 (L) HEMATOCRIT 35.0 - 45.0 % 32.6 (L) MCV 80.0 - 100.0 fL 85.3 MCH 27.0 - 33.0 pg 28.0 MCHC 32.0 - 36.0 g/dL 32.8 RDW 11.0 - 15.0 % 13.3 PLATELET COUNT 140 - 400 Thousand/uL 293 MPV 7.5 - 12.5 fL 9.5 ABSOLUTE NEUTROPHILS 1,500 - 7,800 cells/uL 2,610 ABSOLUTE LYMPHOCYTES 850 - 3,900 cells/uL 1,296 ABSOLUTE MONOCYTES 200 - 950 cells/uL 414 ABSOLUTE EOSINOPHILS 15 - 500 cells/uL 122 ABSOLUTE BASOPHILS 0 - 200 cells/uL 59 NEUTROPHILS % 58 LYMPHOCYTES % 28.8 MONOCYTES % 9.2 EOSINOPHILS % 2.7 BASOPHILS % 1.3 IRON, TOTAL 40 - 190 mcg/dL 41 IRON BINDING CAPACITY 250 - 450 mcg/dL (calc) 448 % SATURATION 16 - 45 % (calc) 9 (L) FERRITIN 16 - 154 ng/mL 8 (L) VITAMIN D,25-OH,TOTAL,IA 30 - 100 ng/mL 39 Thyroid recently checked with [employer] and stable Impression MDM 1) COMPLEXITY: 1 OR MORE CHRONIC CONDITION WITH EXACERBATION, OR PROGRESSION OR SIDE EFFECT OF TREATMENT ADDRESSED 2)DATA: TESTS INTERPRETED AND OR ORDERED, [...] Addressed This Visit ICD-10-CM Iron deficiency anemia - Primary D50.9 Relevant Orders CBC and Auto Differential Iron and TIBC Ferritin 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 Other Visit Diagnoses Codes History of miscarriage Z87.59 Fatigue, unspecified type R53.83 FU in 3-4 mo with labs and med check [1] Patient Active Problem List Diagnosis Depression, major, single episode, mild External hemorrhoids SOPHIA (generalized anxiety disorder) Genital herpes Intractable migraine without aura and with status migrainosus Iron deficiency anemia Low thyroid stimulating hormone (TSH) level Mild persistent asthma without complication ([facility]) Seasonal allergies Thyroglossal cyst Thyroid pain Thyroiditis TMJ click Pleurisy Asthmatic bronchitis without complication ([facility]) Abscess Sivan's thyroiditis Acute non-recurrent maxillary sinusitis Nasal congestion Pelvic pain in female [2] Past Medical History: Diagnosis Date Allergic Anemia Anxiety Asthma Depression Disease of thyroid gland Encounter for full-term uncomplicated delivery Normal vaginal delivery Encounter for gynecological examination (general) (routine) without abnormal findings Pap test, as part of routine gynecological examination Other conditions influencing health status Menstruation Other specified related conditions, unspecified trimester ([facility]) 10/31/2021 Rh negative, antepartum Personal history of other endocrine, nutritional and metabolic disease History of Sivan thyroiditis Personal history of other infectious and parasitic diseases 03/20/2021 History of herpes simplex infection [3] Past Surgical History: Procedure Laterality Date MOUTH SURGERY THYROGLOSSAL DUCT EXCISION cyst TONSILLECTOMY [4] Family History Problem Relation Name Age of Onset Depression Mother Matilda Asthma Father Velasquez [5] Social History Tobacco Use Smoking status: Former Types: Cigarettes Smokeless tobacco: Never Vaping Use Vaping status: Never Used Substance Use Topics Alcohol use: Yes Alcohol/week: 3.0 standard drinks of alcohol Types: 3 Standard drinks or equivalent per week Comment: rare Drug use: Not Currently [6] Allergies Allergen Reactions Hydrocodone Other Hydrocodone-Acetaminophen Other Hydrocodone-Guaifenesin Other Hydromorphone Other Latex Rash [7] Current Outpatient Medications Medication Sig Dispense Refill cholecalciferol (Vitamin D3) 25 mcg (1000 units) tablet Take 1 tablet (1,000 Units) by mouth once daily. ferrous gluconate (Fergon) 324 (38 Fe) mg tablet Take 1 tablet by mouth once daily with breakfast. ibuprofen 600 mg tablet Take 1 tablet (600 mg) by mouth 3 times a day as needed for mild pain (1 - 3) (pain). 30 tablet 0 levothyroxine (Synthroid, Levoxyl) 50 mcg tablet Take 1 tablet (50 mcg) by mouth early in the morning.. ondansetron ODT (Zofran-ODT) 4 mg disintegrating tablet Dissolve 1 tablet (4 mg) in the mouth every 8 hours if needed. albuterol (Ventolin HFA) 90 mcg/actuation inhaler Inhale 2 puffs every 4 hours if needed for wheezing or shortness of breath. 18 g 3 famotidine (Pepcid) 20 mg tablet Take 1 tablet (20 mg) by mouth twice a day. (Patient not taking: Reported on 06/03/2025) no115/iron/folic acid ( 19 ORAL) Take by mouth. (Patient not taking: Reported on 06/03/2025) No current facility-administered medications for this visit. documented in this encounter [facility] Work Phone: 05-13-2025 Progress note [facility] 05-13-2025 Progress note Note Date/Time May 13, 2025 3:14pm [facility] [address] [place] [address], [address] [place] [address] OFFICE VISIT Date of Service: 05/13/25 MR#: [id number] Acct: [id number] Name: JOHNY TORRES Rep #: [id number] : 2000 Provider: Dr. Adrien Baker MD Age/Sex: 25/F [facility] [facility] Status: Signed Intake Vital Signs 04/30/25 10:00 05/13/25 14:49 05/13/25 14:50 Height 5 ft 3 in 5 ft 3 in 5 ft 3 in Weight: 134 lb 137 lb 2 oz BMI 23.7 24.3 BP 111/71 111/72 Intake Visit Reasons: Post op bleeding FU Pipe Puller Required: No Is patient in pain?: No Allergies Latex, Natural Rubber Allergy (Mild, Verified 05/13/25 14:49) Itching hydrocodone (From Vicodin) Allergy (Verified 05/13/25 14:49) other hydromorphone (From Dilaudid) Adverse Reaction (Intermediate, Verified 05/13/25 14:49) passed out Medications ?Medication ?Instructions ?Recorded ?Confirmed ?Type multivit-min no.71-iron fum 28 1 cap PO DAILY 05/16/23 05/13/25 History mg-folate no.1 1 mg-dha 300 mg capsule ([place]) levothyroxine 50 mcg tablet 50 mcg PO [...] menopausal: No Patient : No : Yes [facility] Medical History (Updated 05/13/25 @ 15:06 by [...] History of throat surgery History of tonsillectomy [place] teeth extracted Family History Grandmother Ovarian cancer, Onset Age: 70 Paternal great grandmother Colon cancer, Onset Age: 60 Paternal Social History adopted: No household members: spouse and children housing: house number of children: 2 current occupational status: unemployed current occupation: [employer] pets and animals: Yes pets and animals: [...] 1-2 times per week duration: 30-45 minutes/day stacye/sikhism: Oriental Orthodox seatbelt use: always do you feel safe [...] live - full term 8#6oz Male epidural [facility] Dr. Jordon Escobar 12/17/23 Kate 37 live - full term 6lbs 14oz Female e pidural [facility] Olivia Escobar 04/06/25 9 spontaneous Delivery Date: [...] problem list details for specific planinformation. 05/13/25 6094 <Electronically signed by Esme long MD> Date _ Esme Baker MD Cosigner Signature: Date (if applicable) CC: ~ [facility] Work Phone: 1(220) 137-189106-24-2025 Consult note [facility] Medical Records Department [address] [place] [address] Anesthesia Postop Eval I 04/06/25 1505 MR#: [id number] Acct: [id number] Name: JOHNY TORRES Rep #:[id number] : 2000 24 From: Roe COSTELLO PCP: CURTIS Mena Status:REG SDC Y Race: C Location: [place] [address] Anesthesia: Postop Eval I Current Vital Signs [...] Postop Eval 1 completed: Yes 04/06/25 1505 [employer] RECRE[employer]HICLES> Date _ Roe Waller [employer] Cosigner Signature: Date CC: ~ Signed [facility]06-24-2025 Consult note Author Roe Waller [facility] Note Date/Time April 06, 2025 5:29 pm [facility] Medical Records Department [address] [place] [address] Anesthesia Postop Eval I 04/06/25 1505 MR#: [id number] Acct: [id number] Name: JOHNY TORRES Rep #:[id number] : 2000 24 From: Roe COSTELLO PCP: CURTIS Mena Status:REG SDC Y Race: C Location: [place] [address] Anesthesia: Postop Eval I Current Vital Signs [...] Postop Eval 1 completed: Yes 04/06/25 1505 <Electronically signed by Roe Waller [employer]> Date _ Roe Waller [employer] RE[employer] Cosigner Signature: Date CC: ~ Signed [facility] Work Phone: 1(493) 201-641306-24-2025 Discharge summary Author Esme Baker [facility] Note Date/Time April 06, 2025 2:57 pm [facility] Medical Records Department [address] [place] [address] Instructions for Home/Discharge Instructions 04/06/25 1443 MR#: [id number] Acct: [id number] Name: JOHNY TORRES Rep #:[id number] : 2000 24 From: Esme madrid MD [...] Up With: Esme Baker MD When: Call [phone] to schedule appointment. Test Results: Test results from this visit will be discussed in further detail at your follow- up appointment, if applicable. Discharge Plan Admission Attending Provider: Esme Baker Primary Care Provider: Chrystal Alamo Instructions Print Language: Faroese Discharge Orders/Prescriptions Prescriptions: No Action PNV-[place] 28-1-300 mg capsule 1 cap PO DAILY [...] can be placed): Home, Self Care 04/06/25 6535<Electronically signed by Esme Baker MD>Esme Baker MD CC: CURTIS Mena ~ Signed [facility] Work Phone: 1(843) 564-871806-24-2025 History and physical note Author Esme Baker [facility] Note Date/Time April 06, 2025 1:54 pm [facility] Medical Records Department [address] [place] [address] History & Physical Exam 04/06/25 1157 MR#: [id number] Acct: [id number] Name: JOHNY TORRES Rep #:[id number] : 2000 24 From: Esme madrid MD PCP: CURTIS Mena Status:[facility] Location: [place] [address] History and Physical MR#: [id number] Acct: [id number] Name: JOHNY TORRES Rep #: [id number] : 2000 Provider: Dr. Brandi Freeman DO Age/Sex: 24/F Location[place] [facility] Status: Signed Intake Vital Signs 12/22/2508:34 03/11/2508:03 04/05/2510:51 04/05/2510:53 Height 5 ft 3 in 5 ft 3 in 5 ft 3 in 5 ft 3 in Weight: 138 lb BMI 24.4 BP 121/79 H Intake Visit Reasons: *EST* NOB LMP 02/01, STARR 11/08 Pipe Puller Required: No Is patient in pain?: No Allergies Latex, Natural Rubber Allergy (Mild, Verified 04/05/25 10:49) Itchinghydrocodone (From Vicodin) Allergy (Verified 04/05/25 10:49) otherhydromorphone (From Dilaudid) Adverse Reaction (Intermediate, Verified 04/05/25 10:49) passed out Medications ?Medication ?Instructions ?Recorded ?Confirmed ?Type multivit-min no.71-iron fum 28 1 cap PO DAILY 08/03/23 06/23/25 History mg-folate no.1 1 mg-dha 300 mg capsule (PNV-[place]) levothyroxine 50 mcg tablet 50 mcg PO [...] History of throat surgery History of tonsillectomy [place] teeth extracted Family History Grandmother Ovarian cancer, Onset Age: 70 Paternal great grandmother Colon cancer, Onset Age: 60 Paternal Social History adopted: No household members: spouse and children housing: house number of children: 2 current occupational status: unemployed current occupation: [employer] pets and animals: Yes pets and animals: [...] 1-2 times per week duration: 30-45 minutes/day stacey/sikhism: Oriental Orthodox seatbelt use: always do you feel safe [...] - full term 6lbs 14oz Female epidural [facility] Olivia Escobar Delivery Date: 11/07/21 Last [...] violence, History of blood transfusions,Seasonal allergies, Breast, Shrimp Trawler Captain surgery, Anesthetic complications, History of abnormal pap, [...] Monitoring, Signs and Symptoms of Preeclampsia and [employer] ROS Const All systems reviewed & [...] Status: Acute Comment: , STARR 11/08/25, PC TyeKate dale, Shawn (8) History of marijuana use: Status: [...] Esme Baker MD; CURTIS Mena ~* Signed [facility] Work Phone: 1(134) 283-282206-24-2025 Consult note Author Praveen Valenzuela [facility] Note Date/Time April 06, 2025 1:44 pm [facility] Medical Records Department [address] [place] [address] Pre-Anesthesia Evaluation 04/06/25 1338 MR#: [id number] Acct: [id number] Name: JOHNY TORRES Rep #:[id number] : 2000 24 From: Praveen Valenzuela MD PCP: CURTIS Mena Status:REG [facility] Y Race: C Location: [place] [address] ASA Classification* ASA Classification ASA Classification: 2 [...] d&c, suction Anesthesia History Anesthesia History - criminal defense lawyer: Anesthesia History - criminal defense lawyer Hx Hospitalization No 04/05/25 15:18 Any Problems [...] sips of water?: Yes PONV PONV - criminal defense lawyer: PONV - criminal defense lawyer Female Yes 04/05/25 15:18 HX of Motion [...] 04/06/25 12:51 Respiratory Assessment Respiratory Assessment - criminal defense lawyer: Respiratory Tract Infection Hx - criminal defense lawyer Hx Respiratory Tract Infection No 04/05/25 15:18 STOP Sleep Apnea STOP Sleep Apnea - criminal defense lawyer: STOP Sleep Apnea - criminal defense lawyer Hx Hypertension No 04/05/25 15:18 Hx Sleep [...] Tobacco Use History Tobacco Use History - criminal defense lawyer: Tobacco Use History - criminal defense lawyer Tobacco Use Smoking Status Former smoker 04/05/25 15:18 Hx Tobacco Use No 04/05/25 15:18 Years Smoking Packs Smoked per Day Smoking Cessation Date was Yes - quit smoking within 15 04/05/25 15:18 within the last 15 years years Hx Smoking Cessation Date 10/14/20 04/05/25 15:18 Hx Smoking Cessation Counseling Hematologic Medial History Hematologic Hx - criminal defense lawyer: Hematologic Medical Hx - circular sawyer stone Hx of Blood Transfusion No 04/05/25 15:18 [...] confused, unrespo /Reproduction History /Reproductive History - criminal defense lawyer: /Reproductive Hx- criminal defense lawyer Hx Now No 04/05/25 15:18 Gestational Age [...] 1 mg-dha 300 mg 1 cap capsule (PNV-[place]) levothyroxine 50 mcg tablet 50 mcg PO [...] History of throat surgery History of tonsillectomy [place] teeth extracted Social History adopted: No household members: spouse and children housing: house number of children: 2 current occupational status: unemployed current occupation: [employer] pets and animals: Yes pets and animals: [...] 1-2 times per week duration: 30-45 minutes/day stacey/sikhism: Oriental Orthodox seatbelt use: always do you feel safe at home: Yes additional social history: Shawn Torres Review of Systems (Anesthesia) ROS Narrative System reviewed and no additional complaints, except as documented. 04/06/25 1344 <Electronically signed by Praveen santa MD> Date _ Praveen Valenzuela MD Cosigner Signature: Date CC: ~ Signed [facility] Work Phone: 1(397) 325-199406-24-2025 Discharge summary [facility] Medical Records Department [address] [place] [address] Instructions for Home/Discharge Instructions 04/06/25 1443 MR#: [id number] Acct: [id number] Name: JOHNY TORRES Rep #:[id number] : 2000 24 From: Esme madrid MD PCP: CURTIS Mena Status:[place] [facility] Discharge Instructions Diet Discharge Diet: No restrictions [...] Up With: Esme Baker MD When: Call [phone] to schedule appointment. Test Results: Test results from this visit will be discussed in further detail at your follow- up appointment, if applicable. Discharge Plan Admission Attending Provider: Esme Baker Primary Care Provider: Chrystal Alamo Instructions Print Language: Faroese Discharge Orders/Prescriptions Prescriptions: No Action PNV-[place] 28-1-300 mg capsule 1 cap PO DAILY [...] Baker MD CC: CURTIS Mena ~ Signed [facility]06-24-2025 Procedure note [facility] Medical Records Department [address] [place] [address] Operative Report 04/06/25 1442 MR#: [id number] Acct: [id number] Name: JOHNY TORRES Rep #:[id number] : 2000 24 From: Esme madrid MD PCP: CURTIS Mena Status:[facility] Location: [place] [address]- Procedures Urinary/Genital 52xxx-59xxx: 00760 Surg Trtmt missed Ab, 1TM Operative Report (Standard) Operative Information Date of Procedure: 04/06/25 Pre-Operative Diagnosis: see problem list comments Post-Operative Diagnosis: same Surgery/Procedure Performed: suction dilation and curettage feltmaker: No Type of Anesthesia: IV Sedation and [...] iup 9 weeks Complications Complications: No 04/06/25 9627 Cosigner Signature (if applicable): CC: Dr. Esme Baker MD; CURTIS Mena~ Signed [facility]06-24-2025 History and physical note [facility] Medical Records Department [address] [place] [address] History & Physical Exam 04/06/25 1157 MR#: [id number] Acct: [id number] Name: JOHNY TORRES Rep #:[id number] : 2000 24 From: Esme madrid MD PCP: CURTIS Mena Status[place] [facility] [place]: [place] [address] History and Physical MR#: [id number] Acct: [id number] Name: JOHNY TORRES Rep #: [id number] : 2000 Provider: Dr. Brandi Freeman DO Age/Sex: 24/F [place] [facility] Status: Signed Intake Vital Signs 12/22/2508:34 03/11/2508:03 04/05/2510:51 04/05/2510:53 Height 5 ft 3 in 5 ft 3 in 5 ft 3 in 5 ft 3 in Weight: 138 lb BMI 24.4 BP 121/79 H Intake Visit Reasons: *EST* NOB LMP 02/01, STARR 11/08 Pipe Puller Required: No Is patient in pain?: No Allergies Latex, Natural Rubber Allergy (Mild, Verified 04/05/25 10:49) Itchinghydrocodone (From Vicodin) Allergy (Verified 04/05/25 10:49) otherhydromorphone (From Dilaudid) Adverse Reaction (Intermediate, Verified 04/05/25 10:49) passed out Medications ?Medication ?Instructions ?Recorded ?Confirmed ?Type multivit-min no.71-iron fum 28 1 cap PO DAILY 05/16/23 04/05/25 History mg-folate no.1 1 mg-dha 300 mg capsule (PNV-[place]) levothyroxine 50 mcg tablet 50 mcg PO [...] History of throat surgery History of tonsillectomy [place] teeth extracted Family History Grandmother Ovarian cancer, Onset Age: 70 Paternal great grandmother Colon cancer, Onset Age: 60 Paternal Social History adopted: No household members: spouse and children housing: house number of children: 2 current occupational status: unemployed current occupation: [employer] pets and animals: Yes pets and animals: [...] 1-2 times per week duration: 30-45 minutes/day stacey/sikhism: Oriental Orthodox seatbelt use: always do you feel safe [...] - full term 8#6oz Mal e [facility] 12/17/23 Ellfranki 37 live - full term 6lbs 14oz Female epidural [facility] Olivia Escobar Delivery Date: 11/07/21 Last [...] violence, History of blood transfusions,Seasonal allergies, Breast, Shrimp Trawler Captain surgery, Anesthetic complications, History of abnormal pap, [...] Monitoring, Signs and Symptoms of Preeclampsia and [place] Education ROS Const All systems reviewed & [...] Esme Baker MD; CURTIS Mena ~* Signed [facility]06-24-2025 Consult note [facility] Medical Records Department [address] [place] [address] Pre-Anesthesia Evaluation 04/06/25 1338 MR#: [id number] Acct: [id number] Name: JOHNY TORRES Rep #:[id number] : 2000 24 From: Praveen Valenzuela MD PCP: CURTIS Mena Status:REG SDC Y Race: C Location: [place] [address]- ASA Classification* ASA Classification ASA Classification: 2 [...] d&c, suction Anesthesia History Anesthesia History - criminal defense lawyer: Anesthesia History - criminal defense lawyer Hx Hospitalization No 04/05/25 15:18 Any Problems [...] sips of water?: Yes PONV PONV - criminal defense lawyer: PONV - criminal defense lawyer Female Yes 04/05/25 15:18 HX of Motion [...] 04/06/25 12:51 Respiratory Assessment Respiratory Assessment - criminal defense lawyer: Respiratory Tract Infection Hx - criminal defense lawyer Hx Respiratory Tract Infection No 04/05/25 15:18 STOP Sleep Apnea STOP Sleep Apnea - criminal defense lawyer: STOP Sleep Apnea - criminal defense lawyer Hx Hypertension No 04/05/25 15:18 Hx Sleep [...] Tobacco Use History Tobacco Use History - criminal defense lawyer: Tobacco Use History - criminal defense lawyer Tobacco Use Smoking Status Former smoker 04/05/25 15:18 Hx Tobacco Use No 04/05/25 15:18 Years Smoking Packs Smoked per Day Smoking Cessation Date was Yes - quit smoking within 15 04/05/25 15:18 within the last 15 years years Hx Smoking Cessation Date 10/14/20 04/05/25 15:18 Hx Smoking Cessation Counseling Hematologic Medial History Hematologic Hx - criminal defense lawyer: Hematologic Medical Hx - circular sawyer stone Hx of Blood Transfusion No 04/05/25 15:18 [...] confused, unrespo /Reproduction History /Reproductive History - criminal defense lawyer: /Reproductive Hx- criminal defense lawyer Hx Now No 04/05/25 15:18 Gestational Age [...] 1 mg-dha 300 mg 1 cap capsule (PNV-[place]) levothyroxine 50 mcg tablet 50 mcg PO [...] History of throat surgery History of tonsillectomy [place] teeth extracted Social History adopted: No household members: spouse and children housing: house number of children: 2 current occupational status: unemployed current occupation: [employer] pets and animals: Yes pets and animals: [...] 1-2 times per week duration: 30-45 minutes/day stacey/sikhism: Oriental Orthodox seatbelt use: always do you feel safe at home: Yes additional social history: Shawn Torres Review of Systems (Anesthesia) ROS Narrative System reviewed and no additional complaints, except as documented. 04/06/25 1344 kiet ENGLISH> Date _ Praveen Valenzuela MD [facility] Signature: Date CC: ~ Signed [facility]06-24-2025 [facility] Medical Records Department [address] [place] [address] History Physical Exam 04/06/25 1157 MR#: [id number] Acct: [id number] Name: JOHNY TORRES Rep #: [id number] : 2000 24 From: Esme Baker MD PCP: CURTIS Mena Status:[place] [facility] [place] Location: [place] [address]1 History and Physical MR#: [id number] Acct: [id number] Name: JOHNY TORRES Rep #: [id number] : 2000 Provider: Dr. Brandi Freeman DO Age/Sex: 24/F [place] [facility] Status: Signed Intake Vital Signs 12/22/2508:34 03/11/2508:03 04/05/2510:51 04/05/2510:53 Height 5 ft 3 in 5 ft 3 in 5 ft 3 in 5 ft 3 in Weight: 138 lb BMI 24.4 BP 121/79 H Intake Visit Reasons: *EST* NOB LMP 02/01, STARR 11/08 Pipe Puller Required: No Is patient in pain?: No Allergies Latex, Natural Rubber Allergy (Mild, Verified 04/05/25 10:49) Itchinghydrocodone (From Vicodin) Allergy (Verified 04/05/25 10:49) otherhydromorphone (From Dilaudid) Adverse Reaction (Intermediate, Verified 04/05/25 10:49) passed out Medications ???Medication ???Instructions ???Recorded ???Confirmed ???Type multivit-min no.71-iron fum 28 1 cap PO DAILY 05/16/23 04/05/25 History mg-folate no.1 1 mg-dha 300 mg capsule (PNV-[place]) levothyroxine 50 mcg tablet 50 mcg PO QDAY #90 tabs 03/11/25 04/05/25 Rx albuterol sulfate 90 mcg/actuation 2 puff inhalation Q6H PRN 03/26/25 04/05/25 Histor y aerosol inhaler (Ventolin HFA) cholecalciferol (vitamin D3) 50 50 mcg PO QDAY 03/26/25 04/05/25 History mcg (2,000 unit) capsule Last Menstrual Period: 02/01/25 Zika: Zika virus screening: Negative : Yes PFSH PFS Medical History H/O herpes genitalis Abnormal uterine bleeding 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 Autoimmune thyroiditis Vaginal delivery Oligohydramnios Gestational diabetes mellitus (GDM) affecting , antepartum Abnormal glucose affecting Shoulder dystocia during labor and delivery Rh negative status during Surgical History History of throat surgery History of tonsillectomy [place] teeth extracted Family History Grandmother Ovarian cancer, Onset Age: 70 Paternal great grandmother Colon cancer, Onset Age: 60 Paternal Social History adopted: No household members: spouse and children housing: house number of children: 2 current occupational status: unemployed current occupation: [employer] pets and animals: Yes pets and animals: [...] 1-2 times per week duration: 30-45 minutes/day stacey/sikhism: Oriental Orthodox seatbelt use: always do you feel safe [...] - full term 8#6oz Male epidura l [facility] Dr. Jordon Escobar 12/17/23 Ellia 37 live - full term 6lbs 14oz Female e pidural [facility] Olivia Escobar Delivery Date: 11/07/21 Last [...] Comments: HIV: Urine Cultur (more content not included)...[facility]06-23-2025 Evaluation note* Diagnosis Onset Date Resolution Status Admit Date Anxiety resolved April 05 10:39am Asthma resolved April 05 10:39am Autoimmune thyroiditis resolved Ju 2024 10:39am Chronic anemia resolved April 05, 2025 10:39am H/O herpes genitalis resolved April 05, 2025 10:39am History of gestational diabetes mellitus (GDM) resolved March 10:39am History of gestational hypertension resolved April 05, 2025 10:39am History of marijuana use resolved April 05, 2025 10:39am Hx of shoulder dystocia in prior , currently resolved April 05, 2025 10:39am 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 March 10:39am Migraine headache resolved April 052024 10:39am Missed resolved March 10:39am resolved April 05 10:39am Rectocele resolved April 05 10:39am Rh negative state in antepartum period resolved April 05 10:39am Supervision of high-risk resolved April 05, 2025 10:39am Missed resolved April 9:55am Abnormal uterine bleeding acute May 13, 2025 2:40pm Ovarian cyst acute May 13, 2:40pm Abnormal uterine bleeding acute June 22, 2025 2:58pm Ovarian cyst acute June 2:58pm Secondary oligomenorrhea June, acute June 22, 2025 2:58pm [facility] Work Phone: 1(460) 859-609005-29-2025 Evaluation note* Diagnosis Onset Date Resolution Status Admit Date acute March 11, 2025 8:18am 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 February 8:18am Anxiety acute April 05 10:39am Asthma acute April 05 10:39am Autoimmune thyroiditis acute Ju 2024 10:39am H/O herpes genitalis acute April 05, 2025 10:39am History of gestational diabe riky mellitus (GDM) acute April 05, 2025 10:39am History of gestational hypertension acute April 05, 2025 10:39am History of marijuana use acute April 05, 2025 10:39am Hx of shoulder dystocia in p rior , currently acute Ju ne 2024 10:39am Migraine headache acute April 052024 10:39am Missed acute March 10:39am acute April 05 10:39am Rectocele acute April 05 10:39am Rh negative state in antepar garth period acute April 05, 2025 10:39am Supervision of high-risk acute April 05, 2025 10:39am Chronic anemia chronic April 05, 2025 10:39am 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 March 10:39am Missed acute April 9:55am [facility] Work Phone: 1(132) 275-892105-29-2025 Evaluation note* Diagnosis Onset Date Resolution Status Admit Date 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 February 8:18am resolved March 11, 2025 8:18am Anxiety resolved April 05 10:39am Asthma resolved April 05 10:39am Autoimmune thyroiditis resolved [facility] 2024 10:39am Chronic anemia resolved April 05, 2025 10:39am H/O herpes genitalis resolved April 05, 2025 10:39am History of gestational diabe riky mellitus (GDM) resolved April 05, 2025 10:39am History of gestational hypertension resolved April 05, 2025 10:39am History of marijuana use resolved April 05, 2025 10:39am Hx of shoulder dystocia in p rior , currently resolved [facility] 2024 10:39am 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 [...] 13, 2025 2:40pm Ovarian cyst acute May 13 025 2:40pm [facility] Work Phone: 1(970) 841-309205-29-2025 Evaluation note* Diagnosis Onset Date Resolution Status Admit Date 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 February 8:18am resolved March 11, 2025 8:18am Anxiety resolved April 05 10:39am Asthma resolved April 05 10:39am Autoimmune thyroiditis resolved 2024 10:39am Chronic anemia resolved April 05, 2025 10:39am H/O herpes genitalis resolved April 05, 2025 10:39am History of gestational diabetes mellitus (GDM) resolved March 10:39am History of gestational hypertension resolved April 05, 2025 10:39am History of marijuana use resolved April 05, 2025 10:39am Hx of shoulder dystocia in prior , currently resolved April 05, 2025 10:39am 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 March 10:39am Migraine headache resolved April 052024 10:39am Missed resolved March 10:39am resolved April 05 10:39am Rectocele resolved April 05 10:39am Rh negative state in antepartum period resolved April 05 10:39am Supervision of high-risk resolved April 05, 2025 10:39am Missed resolved April 9:55am Abnormal uterine bleeding acute May 13, 2025 2:40pm Ovarian cyst acute May 13 025 2:40pm Abnormal uterine bleeding acute June 22, 2025 2:58pm Ovarian cyst acute June 2:58pm Secondary oligomenorrhea June, acute June 22, 2025 2:58pm [facility] Work Phone: 1(647) 515-866005-29-2025 [facility] [address] [place] [address]. [address] [place] [address] OFFICE VISIT Date of Service: 03/11/25 MR#: [id number] Acct: [id number] Name: JOHNY TORRES Rep #: [id number] : 2000 Provider: Dr. Anson Richter MD Age/Sex: 24/F [place] [facility] Status: Signed Intake Vital Signs 12/22/24 09:34 [...] mg-folate no.1 1 mg-dha 300 mg capsule (PNV-[place]) levothyroxine 50 mcg tablet 50 mcg PO QDAY #90 tabs 03/11/25 Rx Patient : Yes (5 w 3 d) [facility] Medical History (Updated 03/11/25 @ 08:[address] 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..] in: walking frequency: daily duration: 30-45 minutes/day stacey/sikhism: Oriental Orthodox seatbelt use: always do you feel safe [...] Date (if applicable) CC: CURTIS Mena ~ [facility]05-29-2025 Progress note Author Anson Richter [facility] Note Date/Time March 11, 2025 8:55a m [facility] [address] [place] [address] OFFICE VISIT Date of Service: 03/11/25 MR#: [id number] Acct: [id number] Name: JOHNY TORRES Rep #: [id number] : 2000 Provider: Dr. Anson Richter MD Age/Sex: 24/F [place] [facility] [place] Status: Signed Intake Vital Signs 12/22/24 09:34 [...] mg-folate no.1 1 mg-dha 300 mg capsule (PNV-[place]) levothyroxine 50 mcg tablet 50 mcg PO QDAY #90 tabs 03/11/25 Rx Patient : Yes (5 w 3 d) [facility] Medical History (Updated 03/11/25 @ 08:[address] 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..] in: walking frequency: daily duration: 30-45 minutes/day stacey/sikhism: Oriental Orthodox seatbelt use: always do you feel safe [...] Date (if applicable) CC: CURTIS Mena ~ [facility] [employer] Work Phone: 1(370) 759-729103-25-2025 History of Present illness Narrative* CURTIS Lorenz-Eugenia - 01/05/2025 2:40 PM EDT Subjective Patient ID: Johny Frede is a 24 y.o. female who presents [...] (TSH) level Mild persistent asthma without complication ([facility]) Seasonal allergies Thyroglossal cyst Thyroid pain Thyroiditis TMJ click Pleurisy Asthmatic bronchitis without complication ([facility]) Abscess Sivan's thyroiditis Acute non-recurrent maxillary sinusitis [...] Menstruation Other specified related conditions, unspecified trimester ([facility]) 10/31/2021 Rh negative, antepartum Personal history [...] 108/62 Pulse 76 Ht 1.6 m (5' 3") Wt 62.1 kg (137 lb) BMI 24.27 [...] Behavior: Behavior normal. Testing Component Latest Ref [facility] 11/25/2024 WHITE BLOOD CELL COUNT 3.8 [...] FU in 3-6 mo with labs at [facility] fasting and med check documented in this [facility] Work Phone: 1(363) 543-634803-13-2025 Radiology Diagnostic study note [facility] Imaging Services [address] [place] [address] Pelvic w/ Transvaginal MR#: [id number] Acct: [id number] Name: JOHNY FREED Rep #: [id number] : 2000 F 24 From: Mason Quintanilla MD PCP: CURTIS Mena Status: REG CLI Study:Pelvic w/ Transvaginal Date of Exam: 12/24/24 Exam# [id number] Ordering Dr: Esme Christie MD PROCEDURE: PELVIC [...] Physiologic amount of free fluid Reading Location: [id number] CC: Dr. 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 February 8:18am [facility] Work Phone: 1(150) 997-714203-11-2025 Evaluation note* Diagnosis Onset Date Resolution Status [...] due to Sivan's thyroiditis chronic March 10:39am [facility] Work Phone: 1([phone]) 887-815603-11-2025 Evaluation note* Diagnosis Onset Date Resolution Status [...] due to Sivan's thyroiditis chronic March 10:39am [facility] Work Phone: 1(894) 253-414402-11-2025 History of Present illness Narrative* Chrystal Alamo [...] Menstruation Other specified related conditions, unspecified trimester ([facility]) 10/31/2021 Rh negative, antepartum Personal history [...] 112/78 Pulse 93 Ht 1.6 m (5' 3") Wt 64.6 kg (142 lb 6.4 oz) [...] Hemoglobin A1C Mild persistent asthma without complication ([facility]) J45.30 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 Relevant Orders Thyroid Stimulating Hormone Thyroxine, Free Other Visit Diagnoses Codes Fatigue, unspecified type - Primary R53.83 Diet controlled gestational diabetes mellitus (GDM) in third trimester ([facility]) O24.410 Relevant Orders CBC and Auto [...] = labs and xrays documented in this [facility] Work Phone: [phone]) 739-944810-24-2024 History of Present illness Narrative* Roe Allan [...] F) Resp 16 Ht 1.6 m (5' 3") Wt 68 kg (150 lb) PxL646% BMI 26.57 kg/m Physical Exam General: Alert [...] Final diagnoses: [R30.0] [facility] Work Phone: 1([phone]) 453-687404-09-2024 NotePap Smear Specimen AdequacyApril 2023 11:57amComment.Satisfactory for evaluation. Endocervical and/or squamous metaplasticcells (endocervical component)are present.[facility] INTERFACED A#[id number] Bay Park HospitalComment on above:Satisfactory for evaluation. Endocervical and/or squamous metaplasticcells (endocervical component)are present.12-13-2023 Discharge summary Author Esme Baker [facility] December 13, 2023 1:53am Note Date/Time December 13, 2023 1:53 am [facility] Medical Records Department [address] [place] [address] Instructions for Home/Discharge Instructions 12/13/23 0153 MR#: [id number] Acct: [id number] Name: JOHNY FREED Rep #:[id number] : 2000 23 From: Esme madrid MD [...] Up With: Esme Baker MD When: Call [phone] to make an appointment with your doctor [...] Chrystal [place]amo Discharge Orders/Prescriptions Prescriptions: No Action PNV-[place] 28-1-300 mg capsule 1 cap PO DAILY aspirin 81 mg tablet,delayed release (DR/EC) 81 mg PO DAILY (DME) FreeStyle Sanjay 2 [place] Misc See Rx Instructions .Route Qty: 1 [...] Baker MD CC: CURTIS Mena ~ Signed [facility] Work Phone: [phone] Progress note Author Esme Baker [facility] December 13, 2023 12:16am Note Date/Time December 13, 2023 12:1 6am [facility] Medical Records Department [address] [place] [address] Progress Note 12/13/23 0014 MR#: [id number] Acct: [id number] Name: MARYAMCHELSEA SOSACheikh RAMOS Rep #:[id number] : 2000 23 From: Esme madrid MD PCP: CURTIS Mena Status:ADM IN Location: [id number] Progress Note arom clear fluid, indwelling rincon placed. cat I tracing, iupc placed. pit perprotocol. 5-/-2 clear fluid. exp management 12/13/23 0016 <Electronically signed by Esme Baker MD> Esme Baker MD Cosigner Signature (if applicable): CC: ~ Signed [facility] Work Phone: [phone] History and physical note Author Esme Baker [facility] December 13, 2023 12:14am Note Date/Time December 13, 2023 12:1 4am [facility] Medical Records Department [address] [place] [address] History & Physical Exam 12/13/23 0014 MR#: [id number] Acct: [id number] Name: MARYAMCHELSEA SOSACheikh RAMOS Rep #:[id number] : 2000 23 From: Esme madrid MD PCP: CURTIS Mena Status:ADM IN Location: [id number] History and Physical Date of Admission: 12/12/23 Vital Signs 11/14/2409:46 12/05/2412:57 :25 :27 Height 5 ft 3 in 5 ft 3 in 5 ft 3 in 5 ft 3 in Weight: 194 lb BMI 34.3 BP 112/77 Intake Visit Reasons: 37 WK OB Pipe Puller Required: No Is patient in pain?: No Allergies Latex, Natural Rubber Allergy (Mild, Verified 12/12/23 14:25) Itchingacetaminophen [From Vicodin] Allergy (Verified 12/12/23 14:25) otherhydrocodone [From Vicodin] Allergy (Verified 12/12/23 14:25) otherhydromorphone [From Dilaudid] Adverse Reaction (Intermediate, Verified 12/12/23 14:25) passed out Medications multivit-min no.71-iron fum 28 mg-folate no.1 1 mg-dha 300 mg capsule (PNV- [place]) 1 cap PO DAILY 05/16/23 [History Confirmed [...] [Rx Confirmed 12/12/23] flash glucose scanning reader (Beiang TechnologyStyle Sanjay 2 [place]) #1 ea 10/30/23 [Rx Confirmed 12/12/23] flash [...] History of throat surgery History of tonsillectomy [place] teeth extracted Family History Grandmother Ovarian cancer [...] in: walking frequency: daily duration: 30-45 minutes/day stacey/sikhism: Oriental Orthodox seatbelt use: always do you feel safe [...] - full term 8#6oz Mal e [facility]ural [facility] Delivery Date: 11/07/21 Last Updated by: [...] Monitoring, Signs and Symptoms of Preeclampsia and [place] Education ROS Const Reports system reviewed and [...] dystocia with result of fractured clavicle of in prior , currently in second trimester [...] high risk , unspecified, second trimester Comment: [id number], STARR 01/02/24 PC Tye, Shawn (10) : [...] trial of labor I have reviewed the [facility] and made any clinically relevant updates. 12/13/23 0014 <Electronically signed by Esme Baker MD> Cosigner Signature (if applicable): CC: Dr. Esme Baker MD; CURTIS Mena~ Signed [facility] Work Phone: 1(541) 421-674403-01-[address] [facility] 10-18-2023 History of Present illness Narrative* Alexa Lancaster, HEAD REFRIGERATION ENGINEER-CERAMIC TILER - 10/18/2023 2:40 PM EST Subjective Patient [...] consist of SORE THROAT, SINUS PRESSURE, AND REEVSE prior treatment consists of medication NONE Visit [...] [facility]: 1(484) 175-598201-03-2024 Discharge summary Author Fermín Rodrigues [facility] October 16, 2023 9:13pm Note Date/Time October 16, 2023 9: 05pm [facility] Medical Records Department [facility] [place] [address] Emergency Department Summary 10/16/23 MR#: [id number] Acct: [id number] Name: JOHNY FREED Rep #:[id number] : 2000 23 From: Fermín Rodrigues MD [...] frequent syncopal episodes. She was referredto pediatric nephrologist. Table tilt test was never performed.. Patient [...] no.1 1 mg-dha 300 mg capsule (PNV- [place]) 1 cap PO DAILY 05/16/23 [History Last [...] History of throat surgery History of tonsillectomy [place] teeth extracted Social History adopted: No household [...] in: walking frequency: daily duration: 30-45 minutes/day stacey/sikhism: Oriental Orthodox seatbelt use: always do you feel safe [...] i.e. WPW, [place] syndrome, short MI interval, prolonged QT duration etc. Lab Data [...] 72.3 H Lymph % (Auto) 16.6 L Alpine % (Auto) 6.4 Eos % (Auto) 2.2 Baso % (Auto) 0.6 Absolute Neuts (auto) 7.5 Absolute Lymphs (auto) 1.73 Nucleated RBC % 0 Urine Color Yellow Urine Clarity Clear Urine pH 6.5 Ur Specific [place] 1.010 Urine Protein Negative Urine Glucose (UA) [...] ED Fainting, Vagal Reaction Prescriptions: No Action PNV-[place] 28-1-300 mg capsule 1 cap PO DAILY [...] your Primary Care Provider. Call [facility] ([phone]) or report to the closest Emergency Room. Call 911 if necessary. 10/16/232112 <Electronically signed by Fermín Rodrigues MD> Cosigner Signature (if applicable): CC: CURTIS Mena ~ Signed [facility] Work Phone: [phone]) 149-695801-03-2024 Discharge summary Author Fermín Rodrigues [facility] October 16, 2023 9:14pm Note Date/Time October 16, 2023 9: 14pm [facility] Medical Records Department [address] [place] [address] [place] [address] Emergency Department Summary 10/16/23 MR#: [id number] Acct: [id number] Name: JOHNY FREED Rep #:[id number] : 2000 23 From: Fermín Rodrigues MD PCP: CURTIS Mena Status:REG ER Location: ED HPI History of Present Illness Chief Complaint: Syncope PFSH PFS Medical History H/O herpes genitalis Shoulder dystocia during labor and delivery Home Medications multivit-min no.71-iron fum 28 mg-folate no.1 1 mg-dha 300 mg capsule (PNV- [place]) 1 cap PO DAILY 05/16/23 [History Last [...] History of throat surgery History of tonsillectomy [place] teeth extracted Social History adopted: No household [...] in: walking frequency: daily duration: 30-45 minutes/day stacey/sikhism: Oriental Orthodox seatbelt use: always do you feel safe [...] obtaining)] 90 Pulse Ox Oxygen Delivery Method [facility] Lab Data Labs: Laboratory Results - last 24 hr 10/16/23 10/16/23 18:15 18:38 WBC 10.4 RBC 3.53 L Hgb 9.9 L Hct 29.4 L MCV 83.3 MCH 28.0 MCHC 33.7 RDW Std Deviation 36.4 RDW Coeff of Lis 12.0 Plt Count 294 MPV 9.5 Immature Gran % (Auto) 1.900 H Neut % (Auto) 72.3 H Lymph % (Auto) 16.6 L Alpine % (Auto) 6.4 Eos % (Auto) 2.2 Baso % (Auto) 0.6 Absolute Neuts (auto) 7.5 Absolute Lymphs (auto) 1.73 Nucleated RBC % 0 Urine Color Yellow Urine Clarity Clear Urine pH 6.5 Ur Specific [place] 1.010 Urine Protein Negative Urine Glucose (UA) [...] ED Fainting, Vagal Reaction Prescriptions: No Action PNV-[place] 28-1-300 mg capsule 1 cap PO DAILY [...] your Primary Care Provider. Call [facility] ([phone]) or report to the closest Emergency Room. Call 911 if necessary. 10/16/232113 <Electronically signed by Fermín Rodrigues MD> Cosigner Signature (if applicable): CC: CURTIS Mena ~ Signed [facility] Work Phone: [phone]) 100-945601-03-2024 Discharge summary Author Fermín Rodrigues [facility] October 16, 2023 9:15pm Note Date/Time October 16, 2023 9: 15pm [facility] Medical Records Department [address] [place] [address] Emergency Department Summary 10/16/23 MR#: [id number] Acct: [id number] Name: JOHNY FREED Rep #:[id number] : 2000 23 From: Fermín Rodrigues MD PCP: CURTIS Mena Status:REG ER Location: ED HPI History of Present Illness Chief Complaint: Syncope PFSH PFSH Medical History H/O herpes genitalis Shoulder dystocia during labor and delivery Home Medications multivit-min no.71-iron fum 28 mg-folate no.1 1 mg-dha 300 mg capsule (PNV- [place]) 1 cap PO DAILY 05/16/23 [History Last [...] History of throat surgery History of tonsillectomy [place] teeth extracted Social History adopted: No household [...] in: walking frequency: daily duration: 30-45 minutes/day stacey/sikhism: Oriental Orthodox seatbelt use: always do you feel safe [...] obtaining)] 90 Pulse Ox Oxygen Delivery Method [facility] MDM Lab Data Labs: Laboratory Results - last 24 hr 10/16/23 10/16/23 18:15 18:38 WBC 10.4 RBC 3.53 L Hgb 9.9 L Hct 29.4 L MCV 83.3 MCH 28.0 MCHC 33.7 RDW Std Deviation 36.4 RDW Coeff of Lis 12.0 Plt Count 294 MPV 9.5 Immature Gran % (Auto) 1.900 H Neut % (Auto) 72.3 H Lymph % (Auto) 16.6 L Al[place] % (Auto) 6.4 Eos % (Auto) 2.2 Baso % (Auto) 0.6 Absolute Neuts (auto) 7.5 Absolute Lymphs (auto) 1.73 Nucleated RBC % 0 Urine Color Yellow Urine Clarity Clear Urine pH 6.5 Ur Specific [place] 1.010 Urine Protein Negative Urine Glucose (UA) [...] Rhythm (Rate is 84. EKG is normal. MI interval is 164 ms. Cures duration 84 ms. QT duration 270 ms. [place] is normal) Discharge Plan Triage Chief Complaint: Syncope ED Provider: Fermín Rodrigues Dx/Rx/DC Orders Clinical Impression: Ketosis, Syncopal episodes, Sivan's disease, Rh negative status during , Anemia in preg-unspec Instructions: Anemia During , ED Fainting, Vagal Reaction Prescriptions: No Action PNV-[place] 28-1-300 mg capsule 1 cap PO DAILY [...] your Primary Care Provider. Call [facility] ([phone]) or report to the closest Emergency Room. Call 911 if necessary. 10/16/232114 <Electronically signed by Fermín Rodrigues MD> Cosigner Signature (if applicable): CC: CURTIS Mena ~ Signed [facility] Work Phone: 1([phone]) 694-237406-07-2023 History of Present illness Narrative* Alexa Lancaster, ART-REINALDO - 03/20/2023 3:40 PM EDT Subjective Patient ID: Johny Freed is a 22 y.o. female who presents for Results (NO ADDITIONAL CONCERNS ). VIRTUAL APPOINTMENT BEING PERFORMED DUE TO COVID-19 (CORONAVIRUS) HPI: Presents today for SA LABS. NO NEW COMPLAINTS IRON- SHE STATES [...] WITH RM WITH [facility]S [facility] Phone: [phone]) 647-991206-07-2023 Instructions* Patient Instructions* JANINA Lara - 03/20/2023 3:40 PM EDT 1 month with labs with RM Cancel 04/11/23 [facility] Phone: 1([phone]) 146-597606-01-2023 History of Present illness Narrative* Alexa Lancaster, HEAD REFRIGERATION ENGINEER-CERAMIC TILER - 03/14/2023 2:40 PM EDT Subjective Patient [...] 101/65 Pulse 86 Ht 1.575 m (5' 2") Wt 59.9 kg (132 lb) BMI 24.14 [...] WITH LABS WITH RM documented in this [facility] Work Phone: 1([phone]) 422-565401-04-2023 Chief complaint Narrative - Reported* An interactive [...] Pt vv 6 mnth fu with labs. -[facility] Work Phone: 1([phone]) 155-740605-23-2022 NotePrevious comment was modified by [employer] at 15:06 on 03/09/2022 CULTURE IN PROGRESS. FINAL REPORT IN 72 HOURS. Culture examined for Group A Streptococcus, Group B Streptococcus, Neisseria gonorrhoeae and Yeast ONLY. NO Neisseria gonorrhoeae ISOLATED. PATIENT: JOHNY FREED LOCATION: [address]#: [id number] : [birth year] AGE: SEX: F ORDERED BY: TAYLER SANTIAGO SOURCE: GENITAL COLLECTED: 03/05/22 11:23 ANTIBIOTICS AT [place].: RECEIVED : 03/05/22 17:59 SITE: Vaginal Corrected Report R E S U L T S GENITAL CULTURE, BACT. FINAL 03/09/22 15:06 NO PATHOGENS Culture examined for Group A Streptococcus, Group B Streptococcus, Neisseria gonorrhoeae and Yeast ONLY. NO Neisseria gonorrhoeae ISOLATED. Previous comment was modified by [employer] at 15:06 on 03/09/22. Culture examined for Group A Streptococcus, Group B Streptococcus, Neisseria gonorrhoeae and Yeast ONLY. NO Neisseria gonorrhoeae ISOLATED.[facility] Hospital at RahwayComment on above: Performed By: #### GENLÓPEZ #### [facility] [address] [place], [place] [id number] History of Present illness Narrative* Patient presents [...] finding and notes some improvement as well [facility] Work Phone: [phone] 455-845602-19-2022 History of Present illness Narrative* 21 YOF [...] COVID-19 negative. * No known COVID-19 exposure. [facility] Work Phone: [phone]) 587-827302-18-2022 History of Present illness Narrative* 21 YOF [...] COVID-19 negative. * No known COVID-19 exposure. [facility] Work Phone: 1([phone]) 620-527707-12-2021 History of Present illness Narrative* Patient presents [...] if not better since she has been [facility] Work Phone: [phone]) 672-642704-01-2021 History of Present illness NarrativePatient presents stating she has not had a menstrual flow since January. She was on control pills when she found out she was . She has some breast tenderness and nausea. Denies any vaginal bleeding. Patient states she has a history of herpes. She was also diagnosed with Sivan's disease.[address] Work Phone: Evaluation note* Extremities: Negative calf painGastrointestinal: Soft positive bowel sounds probably tender nondiste ndedCardiovascular: Regular rate rhythmRespiratory/Thorax: Clear to auscultation bilaterallyEyes: EOMISkin: no rashes or lesionsConstitutional: alert, oriented [facility]* Diagnosis Genital herpes simplex, unspecified site- Primary documented [facility] Work Phone: Evaluation note* Diagnosis Abscess- Primary Cellulitis and abscess of unspecified site Low thyroid stimulating hormone (TSH) level Iron deficiency anemia, unspecified iron deficiency anemia type documented [facility] Work Phone: Evaluation note* Diagnosis Iron deficiency anemia, unspecified iron deficiency anemia type- Primary Sivan's thyroiditis Chronic lymphocytic thyroiditis documented [facility] Work Phone: Evaluation note* Diagnosis Onset Date Resolution Status Asthma acute H/O herpes genitalis acute Sivan's disease acute [id number] acute acute Rh negative status during acute Supervision of high-risk acute History of labor, current resolved Seasonal allergies resolved History of pre-eclampsia in prior , currently noneactive [facility] Work Phone: Evaluation note* Diagnosis Onset Date Resolution Status Asthma acute H/O herpes genitalis acute [id number] acute acute Rh negative status during acute Supervision of high-risk acute Sivan's disease chronic History of labor, current resolved Seasonal allergies resolved History of pre-eclampsia in prior , currently noneactive Asthma acute H/O herpes genitalis acute [id number] acute acute Rh negative status during acute Supervision of high-risk acute Sivan's disease chronic Asthma acute H/O herpes genitalis acute [id number] acute acute Rh negative status during acute Supervision of high-risk acute Sivan's disease chronic Sivan's disease [facility] Work Phone: Evaluation note* Diagnosis Onset Date Resolution Status Asthma acute H/O herpes genitalis acute [id number] acute acute Rh negative status during acute Supervision of high-risk acute Sivan's disease chronic History of labor, current resolved Seasonal allergies resolved History of pre-eclampsia in prior , currently noneactive Asthma acute H/O herpes genitalis acute [id number] acute acute Rh negative status during acute Supervision of high-risk acute Sivan's disease chronic Asthma acute H/O herpes genitalis acute [id number] acute acute Rh negative status during acute Supervision of high-risk acute 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/O herpes genitalis acute [id number] acute History of proteinuria syndrome acute Rh negative status during acute Supervision of high-risk acute Sivan's disease [facility] Work Phone: Evaluation note* Diagnosis Onset Date Resolution Status Asthma acute H/O herpes genitalis acute [id number] acute acute Rh negative status during acute Supervision of high-risk acute Sivan's disease chronic Asthma acute H/O herpes genitalis acute [id number] acute acute Rh negative status during acute Supervision of high-risk acute 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/O herpes genitalis acute [id number] acute History of proteinuria syndrome acute Rh negative status during acute Supervision of high-risk acute Sivan's disease [facility] Work Phone: Evaluation note* Diagnosis Acute non-recurrent maxillary sinusitis- Primary Nasal congestion Other diseases of nasal cavity and sinuses documented [facility] Work Phone: Evaluation note* Diagnosis Onset Date Resolution Status Asthma acute H/O herpes genitalis acute [id number] acute acute Rh negative status during acute Supervision of high-risk acute 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/O herpes genitalis acute [id number] acute History of proteinuria syndrome acute Rh negative status during acute Supervision of high-risk acute Sivan's disease chronic Anemia in preg-unspec acute Asthma acute H/O herpes genitalis acute [id number] acute History of proteinuria syndrome acute acute Rh negative status during acute Supervision of high-risk acute Sivan's disease [facility] Work Phone: Evaluation note* Diagnosis Onset Date Resolution Status Asthma acute H/O herpes genitalis acute [id number] acute acute Rh negative status during acute Supervision of high-risk acute 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/O herpes genitalis acute [id number]-288966 acute History of proteinuria syndrome acute Rh negative status during acute Supervision of high-risk acute Sivan's disease chronic Anemia in preg-unspec acute Asthma acute H/O herpes genitalis acute [id number] acute History of proteinuria syndrome acute acute Rh negative status during acute Supervision of high-risk acute Sivan's disease chronic Anemia in preg-unspec acute Asthma acute Gestational diabetes mellitu s (GDM) affecting , antepartum acute H/O herpes genitalis acute [id number]-853071 acute History of proteinuria syndrome acute acute Rh negative status during acute Supervision of high-risk acute Sivan's disease [facility] Work Phone: Evaluation note* Diagnosis Onset Date Resolution Status Sivan's disease chronic H/O herpes genitalis acute [id number] acute History of proteinuria syndrome acute Rh negative status during acute Supervision of high-risk acute Sivan's disease chronic Anemia in preg-unspec acute Asthma acute H/O herpes genitalis acute [id number] acute History of proteinuria syndrome acute acute Rh negative status during acute Supervision of high-risk acute Sivan's disease chronic Anemia in preg-unspec acute Asthma acute Gestational diabetes mellitu s (GDM) affecting , antepartum acute H/O herpes genitalis acute [id number] acute History of proteinuria syndrome acute acute Rh negative status during acute Supervision of high-risk acute Sivan's disease chronic Anemia in preg-unspec acute Asthma acute Gestational diabetes mellitu s (GDM) affecting , antepartum acute H/O herpes genitalis acute [id number] acute History of proteinuria syndrome acute acute Rh negative status during acute Supervision of high-risk acute Sivan's disease chronic Anemia in preg-unspec acute Asthma acute Gestational diabetes mellitu s (GDM) affecting , antepartum acute H/O herpes genitalis acute [id number] acute History of proteinuria syndrome acute acute Rh negative status during acute Supervision of high-risk acute Sivan's disease [facility] Work Phone: Evaluation note* Diagnosis Onset Date Resolution Status Rh negative status during acute H/O herpes genitalis resolve d Sivan's disease resolved [id number] resolved History of proteinuria syndrome resolved Supervision of high-risk resolved Asthma acute Rh negative status during acute Anemia in preg-unspec resolv ed H/O herpes genitalis resolve d Sivan's disease resolved [id number] resolved History of proteinuria syndrome resolved resolved Supervision of high-risk resolved Asthma acute Gestational diabetes mellitu s (GDM) affecting , antepartum acute Rh negative status during acute Anemia in preg-unspec resolv ed H/O herpes genitalis resolve d Sivan's disease resolved [id number] resolved History of proteinuria syndrome resolved resolved Supervision of high-risk resolved Asthma acute Gestational diabetes mellitu s (GDM) affecting , antepartum acute Rh negative status during acute Anemia in preg-unspec resolv ed H/O herpes genitalis resolve d Sivan's disease resolved [id number] resolved History of proteinuria syndrome resolved resolved Supervision of high-risk resolved Asthma acute Gestational diabetes mellitu s (GDM) affecting , antepartum acute Rh negative status during acute Anemia in preg-unspec resolv ed H/O herpes genitalis resolve d Sivan's disease resolved [id number] resolved History of proteinuria syndrome resolved resolved Supervision of high-risk resolved Trauma during reso lved Asthma acute Gestational diabetes mellitu s (GDM) affecting , antepartum acute Rh negative status during acute Anemia in preg-unspec resolv ed H/O herpes genitalis resolve d Sivan's disease resolved [id number] resolved History of proteinuria syndrome resolved resolved Supervision of high-risk resolved Asthma acute Gestational diabetes mellitu s (GDM) affecting , antepartum acute Rh negative status during acute Anemia in preg-unspec resolv ed H/O herpes genitalis resolve d Sivan's disease resolved [id number] resolved History of proteinuria syndrome resolved Oligohydramnios in third trimester resolved resolved Supervision of high-risk resolved Asthma acute Gestational diabetes mellitu s (GDM) affecting , antepartum acute Rh negative status during acute Vaginal delivery acute Anemia in preg-unspec resolv ed H/O herpes genitalis resolve d Sivan's disease resolved [id number] resolved History of proteinuria syndrome resolved Oligohydramnios in third trimester resolved resolved Supervision of high-risk resolved Migraine headache acute [facility] Work Phone: Evaluation note* Diagnosis Onset Date Resolution Status Asthma acute Anemia in preg-unspec resolv ed H/O herpes genitalis resolve d Sivan's disease resolved [id number] resolved History of proteinuria syndrome resolved resolved Supervision of high-risk resolved Asthma acute Anemia in preg-unspec resolv ed H/O herpes genitalis resolve d Sivan's disease resolved [id number] resolved History of proteinuria syndrome resolved resolved Supervision of high-risk resolved Asthma acute Anemia in preg-unspec resolv ed H/O herpes genitalis resolve d Sivan's disease resolved [id number] resolved History of proteinuria syndrome resolved resolved Supervision of high-risk resolved Asthma acute Anemia in preg-unspec resolv ed H/O herpes genitalis resolve d Sivan's disease resolved [id number] resolved History of proteinuria syndrome resolved resolved Supervision of high-risk resolved Trauma during reso lved Asthma acute Anemia in preg-unspec resolv ed H/O herpes genitalis resolve d Sivan's disease resolved [id number] resolved History of proteinuria syndrome resolved resolved Supervision of high-risk resolved Asthma acute Anemia in preg-unspec resolv ed H/O herpes genitalis resolve d Sivan's disease resolved [id number] resolved History of proteinuria syndrome resolved Oligohydramnios in third trimester resolved resolved Supervision of high-risk resolved Asthma acute Anemia in preg-unspec resolv ed H/O herpes genitalis resolve d Sivan's disease resolved [id number] resolved History of proteinuria syndrome resolved Oligohydramnios in third trimester resolved resolved Supervision of high-risk resolved Care and examination of lactating mother noneactive Migraine headache acute nipple pain nonea ctive Care and examination of lactating mother noneactive Routine Follow-Up noneactive [facility] Work Phone: Evaluation note* Diagnosis Onset Date Resolution Status Rh negative status during acute H/O herpes genitalis resolve d Sivan's disease resolved [id number] resolved History of proteinuria syndrome resolved Supervision of high-risk resolved Asthma acute Rh negative status during acute Anemia in preg-unspec resolv ed H/O herpes genitalis resolve d Sivan's disease resolved [id number] resolved History of proteinuria syndrome resolved resolved Supervision of high-risk resolved Asthma acute Gestational diabetes mellitu s (GDM) affecting , antepartum acute Rh negative status during acute Anemia in preg-unspec resolv ed H/O herpes genitalis resolve d Sivan's disease resolved [id number] resolved History of proteinuria syndrome resolved resolved Supervision of high-risk resolved Asthma acute Gestational diabetes mellitu s (GDM) affecting , antepartum acute Rh negative status during acute Anemia in preg-unspec resolv ed H/O herpes genitalis resolve d Sivan's disease resolved [id number] resolved History of proteinuria syndrome resolved resolved Supervision of high-risk resolved Asthma acute Gestational diabetes mellitu s (GDM) affecting , antepartum acute Rh negative status during acute Anemia in preg-unspec resolv ed H/O herpes genitalis resolve d Sivan's disease resolved [id number] resolved History of proteinuria syndrome resolved resolved Supervision of high-risk resolved Trauma during reso lved Asthma acute Gestational diabetes mellitu s (GDM) affecting , antepartum acute Rh negative status during acute Anemia in preg-unspec resolv ed H/O herpes genitalis resolve d Sivan's disease resolved [id number] resolved History of proteinuria syndrome resolved resolved Supervision of high-risk resolved Asthma acute Gestational diabetes mellitu s (GDM) affecting , antepartum acute Rh negative status during acute Anemia in preg-unspec resolv ed H/O herpes genitalis resolve d Sivan's disease resolved [id number] resolved History of proteinuria syndrome resolved Oligohydramnios in third trimester resolved resolved Supervision of high-risk resolved Asthma acute Gestational diabetes mellitu s (GDM) affecting , antepartum acute Rh negative status during acute Vaginal delivery acute Anemia in preg-unspec resolv ed H/O herpes genitalis resolve d Sivan's disease resolved [id number] resolved History of proteinuria syndrome resolved Oligohydramnios in third trimester resolved resolved Supervision of high-risk resolved [facility] Work Phone: Evaluation note* Diagnosis Dysuria- Primary documented [facility] this [facility] Work Phone: Evaluation note* Diagnosis Fatigue, unspecified type- Primary Sivan's thyroiditis Chronic lymphocytic thyroiditis Iron deficiency anemia, unspecified iron deficiency anemia type Diet controlled gestational diabetes mellitus (GDM) in third trimester (HHS-HCC) Pain of left heel Acute pain of left foot Acute left ankle pain Mild persistent asthma without complication (HHS-HCC) documented in this encounter [facility] Work Phone: Evaluation note* Diagnosis Acute pain of right shoulder- Primary Vitamin D deficiency Iron deficiency anemia, unspecified iron deficiency anemia type Sivan's thyroiditis Chronic lymphocytic thyroiditis Acute right-sided thoracic back pain documented in this encounter [facility] Work Phone: Evaluation note* Diagnosis Iron deficiency anemia, unspecified iron deficiency anemia type- Primary Sivan's thyroiditis Chronic lymphocytic thyroiditis History of miscarriage Personal history of other genital system and obstetric disorders Fatigue, unspecified type documented in this encounter [facility] Work Phone: Evaluation note* Diagnosis Atypical chest pain- Primary Other chest pain SOPHIA (generalized anxiety disorder) Generalized anxiety disorder Dyspepsia Dyspepsia and other specified disorders of function of stomach Nausea Nausea alone Iron deficiency anemia, unspecified iron deficiency anemia type Sivan's thyroiditis Chronic lymphocytic thyroiditis Mild persistent asthma without complication (HHS-HCC) documented in this encounter [facility] Work Phone: Evaluation note* Diagnosis Urinary frequency- Primary documented in this encounter [facility] Work Phone: Evaluation note* Diagnosis Iron deficiency anemia, unspecified iron deficiency anemia type- Primary Sivan's thyroiditis Chronic lymphocytic thyroiditis Screening for diabetes mellitus Screening for lipid disorders Vitamin D deficiency Abscess Cellulitis and abscess of unspecified site Dyspepsia Dyspepsia and other specified disorders of function of stomach SOPHIA (generalized anxiety disorder) Generalized anxiety disorder Depression, major, single episode, mild documented in this encounter [facility] Work Phone: Evaluation note* Diagnosis Iron deficiency anemia, unspecified iron deficiency anemia type- Primary documented in this encounter [facility] Work Phone: History and physical note Author Brandi Pacheco [facility] December 18, 2023 7:02pm Note Date/Time December 18, 2023 6:54 pm [facility] Medical Records Department [address] [place] [address] OB Triage Physician Note 12/18/23 1852 MR#: [id number] Acct: [id number] Name: JOHNY FREED Rep #:[id number] : 2000 23 From: Brandi Freeman DO PCP: CURTIS Mena Status:REG CLI Y Location: NS795-2 HPI - General HPI Narrative JOHNY FREED, [...] Current Estimate 01/02/24 LMP (Certain) 37w 6d [facility] Medical History (Updated 12/18/23 @ 18:[address] Brandi Freeman, DO) Abnormal glucose affecting H/O herpes genitalis Oligohydramnios Shoulder dystocia during labor and delivery Home Medications multivit-min no.71-iron fum 28 mg-folate no.1 1 mg-dha 300 mg capsule (PNV- [place]) 1 cap PO DAILY 05/16/23 [History Last Taken 12/18/23 08:00 1 cap] blood sugar diagnostic (Blood Glucose Test strips) #120 ea 10/25/23 [Rx Last Taken Unknown] blood-glucose meter #1 ea 10/25/23 [Rx Last Taken Unknown] lancets #200 ea 10/25/23 [Rx Last Taken Unknown] flash glucose scanning reader ([employer] [place]) #1 ea 10/30/23 [Rx Last Taken Unknown] [...] History of throat surgery History of tonsillectomy [place] teeth extracted Social History adopted: No household [...] in: walking frequency: daily duration: 30-45 minutes/day stacey/sikhism: Oriental Orthodox seatbelt use: always do you feel safe [...] - full term 8#6oz Male epidural Claus Jamesair Escobar Delivery Date: 11/07/21 Last Updated by: [...] Multi Select Codes Visit Charges Office Visit/Consults: 36289 OV L3 Est 20min 12/18/23 190 <Electronically signed by Brandi Adhikari DO> Date _ Brandi Freeman DO Cosigner Signature (if applicable): Date CC: Dr. Brandi Freeman DO; CURTIS Mena ~ Signed [facility] Work Phone: History of Present illness [id number] G1 presents for follow-up viability ultrasound. Patient notes more breast tenderness nausea recently. Minimal cramps but no bleeding. Patient has no acute concerns.[address] Work Phone: History of Present illness [...] - ordered given some of her symptoms [facility] Work Phone: History of Present illness [id number] G1, P1 presents for concern for yellow discharge and a lot of pain. Patient strongly anxious with baby in her recovery. Patient is no other acute concernsWomenReduce [employer] Work Phone: History of Present illness Owmdrepew19-bhkc-uch presents for 6-week status post spontaneous vaginal delivery. Patient doing well. Patient struggled with constipation despite Colace twice a day. Patient drinking tons of waterfor breast-feeding. Infant doing well. Patient not sexually active. Patient is no period. Patient like discussed control. Patient is no other acute concernsWomenKidNimble Work Phone: [phone] of Present illness Narrative* 21 YOF presents [...] seasonal allergies. * She had COVID-19 09/2021. [facility] Work Phone: History [...] is doing well. She cont to breastfeed [facility] Work Phone: History [...] is doing well. She cont to breastfeed [facility] Work Phone: History of Present illness Narrative* Pt. presents for annual exam * up to date on pap * Still with bothersome scar tissue from perineal repair at last , did use estrogen cream for a while * d/c contraception and open to next , will start folic acid [address] Work Phone: History of Present illness Narrative* Alexa Lancaster, HEAD REFRIGERATION ENGINEER-CERAMIC TILER - 02/08/2023 9:40 AM EDT Subjective Patient [...] Follow up as [facility]: Hospital Discharge instructions* Activity:Return [...] symptoms worsen, call 911 or go to [facility] room. *Information obtained from JASMYNE s: Save Your Life: Get Care for These POST- Warning SignsOn Behalf on the [facility] Maternity Staff, Congratulations on your . It was our pleasure to take care of you and your infant during your stay. We hope during this [...] us a call. Also, please join our [facility] Support Group which meets the saturday of every month at 10 am in the OB unit. No need to register. If you have any questions please call us at [phone]. Again, Congratulations! Warmest Regards,[facility]'s Maternity Staff [facility] note Author Ara Roach [facility] December 14, 2023 8:19am Note Date/Time December 14, 2023 8:19 am [facility] Medical Records Department [address] [place] [address] Progress Note - OBGYN 12/14/23 0817 MR#: [id number] Acct: [id number] Name: JOHNY FREED Rep #:[id number] : 2000 23 From: Ara Roach CNM PCP: CURTIS Mena Status:ADM IN Location: XQ991-3 Subjective Subjective Patient doing well without complaints. [...] delivery care 2. breast feeding- support given, qa consultant to see today 3. rh positive 4. rubella immune 5. d/c home today 03/02/24 0819 <Electronically signed by Ara Roach CNM> Cosigner Signature (if applicable): CC: ~ Signed [facility] Work Phone: Reason for referral (narrative)No reason for referral information availableWProMedica [facility] Hospital Work Phone: Summary Purpose Family History [...] Will No October 16 6:42pm Power of Line Construction Engineer No October 16 6:42pm Advance Directive Response Recorded Date/ Time Living Will No November 3:12pm Power of Line Construction Engineer No December 12, 2023 3:12pm Advance Directive Response Recorded Date/ Time Living Will No November 024 4:12pm Power of Line Construction Engineer No December 12, 2023 4:12pm Advance Directive Response Recorded Date/ Time Do you have a Healthcare Power of Line Construction Engineer? No April 05, 2025 3:18pm Reason for Referral Status Reason Specialty Diagnoses / Procedures Referred By Contact Referred To Contact New Request Procedures ECG Marybel Bustos PA-C [address] [place] [address] Discharge Instructions * Instructions* Marybel Bustos PA-C - 10/31/2020 Your blood work is normal, heart testing normal, and imaging normal today. Follow up with cardiology for further evaluation of passing out and palpitations. * Attachments The following attachments cannot be sent through Care Everywhere. * Palpitations (Faroese) * Fainting (Faroese) documented in this encounter Assessments Diagnosis Syncope, [...] CLAIMS HER ANXIETY AND DEPRESSION HAS BEEN "PRETTY GOOD" DESPITE NO MEDS.2 MONTH F/U MED CHECK. PATIENT IS CURRENTLY [address] W[address] - DR. CHRISTIAN IS OB. PATIENT HAS D/C ALL MEDS DUE TO BUT CLAIMS HER ANXIETY AND DEPRESSION HAS BEEN "PRETTY GOOD" DESPITE NO MEDS.PT DELIVERED VAGINALLY ON 11/07/2021 [...] SINCE MOVING INTO NEW HOME IN [place] "LOTS OF DUST" - CONCERNED SYMPTOMS MAY BEALLERGY RELATED.URINARY FREQUENCY [...] Visit Asthma H/O herpes genitalis Sivan's disease [id number] Rh negative status during Supervision of high-risk History of labor, current Seasonal allergies History of pre-eclampsia in prior , currently Chief Complaint NOB LMP 03/28 13 WK OB 18 WK OB Elevated TPO INT LABS Reason for Visit Asthma H/O herpes genitalis [id number] Rh negative status during 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 History of labor, current Seasonal allergies History of pre-eclampsia in prior , currently Asthma H/O herpes genitalis [id number] Rh negative status during 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 Asthma H/O herpes genitalis [id number] Rh negative status during 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 Chief Complaint NOB LMP 03/28 13 WK OB 18 WK OB Elevated TPO INT LABS BP check, weight check Reason for Visit Asthma H/O herpes genitalis [id number] Rh negative status during 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 History of labor, current Seasonal allergies History of pre-eclampsia in prior , currently Asthma H/O herpes genitalis [id number] Rh negative status during 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 Asthma H/O herpes genitalis [id number] Rh negative status during 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 H/O herpes genitalis [id number] History of proteinuria syndrome Rh negative status during 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 Chief Complaint 13 WK OB 18 WK OB Elevated TPO INT LABS BP check, weight check Reason for Visit Asthma H/O herpes genitalis [id number] Rh negative status during 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 Asthma H/O herpes genitalis [id number] Rh negative status during 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 H/O herpes genitalis [id number] History of proteinuria syndrome Rh negative status during 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 Chief Complaint 13 WK OB 18 WK OB Elevated TPO INT LABS BP check, weight check SYNCOPAL Reason for Visit Asthma H/O herpes genitalis [id number] Rh negative status during 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 Asthma H/O herpes genitalis [id number] Rh negative status during 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 H/O herpes genitalis [id number] History of proteinuria syndrome Rh negative status during 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 Chief Complaint 18 WK OB Elevated TPO INT LABS BP check, weight check SYNCOPAL 29 WK OB VENOFER 300MG Abnormal glucose complicating Reason for Visit Asthma H/O herpes genitalis [id number] Rh negative status during 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 H/O herpes genitalis [id number] History of proteinuria syndrome Rh negative status during 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 Anemia in preg-unspec Asthma H/O herpes genitalis [id number] History of proteinuria syndrome Rh negative status during 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 Chief Complaint 18 WK OB Elevated TPO INT LABS BP check, weight check SYNCOPAL 29 WK OB VENOFER 300MG Abnormal glucose complicating 31 WK OB GESTATIONAL DIABETES Reason for Visit Asthma H/O herpes genitalis [id number] Rh negative status during 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 H/O herpes genitalis [id number] History of proteinuria syndrome Rh negative status during 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 Anemia in preg-unspec Asthma H/O herpes genitalis [id number] History of proteinuria syndrome Rh negative status during 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 Anemia in preg-unspec Asthma Gestational diabetes mellitus (GDM) affecting , antepartum H/O herpes genitalis [id number] History of proteinuria syndrome Rh negative status during 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 Chief Complaint Elevated TPO INT LABS BP check, weight check SYNCOPAL 29 WK OB VENOFER 300MG Abnormal glucose complicating 31 WK OB GESTATIONAL DIABETES 33 WK OB 35 WK OB FALL Reason for Visit Sivan's disease H/O herpes genitalis [id number] History of proteinuria syndrome Rh negative status during 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 Anemia in preg-unspec Asthma H/O herpes genitalis [id number] History of proteinuria syndrome Rh negative status during 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 Anemia in preg-unspec Asthma Gestational diabetes mellitus (GDM) affecting , antepartum H/O herpes genitalis [id number] History of proteinuria syndrome Rh negative status during 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 Anemia in preg-unspec Asthma Gestational diabetes mellitus (GDM) affecting , antepartum H/O herpes genitalis [id number] History of proteinuria syndrome Rh negative status during 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 Anemia in preg-unspec Asthma Gestational diabetes mellitus (GDM) affecting , antepartum H/O herpes genitalis [id number] History of proteinuria syndrome Rh negative status [...] d uring H/O herpes genitalis Sivan's disease [id number] History of proteinuria syndrome Supervision of high-risk Asthma Rh negative status during Anemia in preg-unspec H/O herpes genitalis Sivan's disease [id number] History of proteinuria syndrome Supervision of high-risk Asthma Gestational diabetes mellitus (GDM) affecting , antepartum Rh negative status during Anemia in preg-unspec H/O herpes genitalis Sivan's disease [id number] History of proteinuria syndrome Supervision of high-risk Asthma Gestational diabetes mellitus (GDM) affecting , antepartum Rh negative status during Anemia in preg-unspec H/O herpes genitalis Sivan's disease [id number] History of proteinuria syndrome Supervision of high-risk Asthma Gestational diabetes mellitus (GDM) affecting , antepartum Rh negative status during Anemia in preg-unspec H/O herpes genitalis Sivan's disease [id number] History of proteinuria syndrome Supervision of high-risk Trauma during Asthma Gestational diabetes mellitus (GDM) affecting , antepartum Rh negative status during Anemia in preg-unspec H/O herpes genitalis Sivan's disease [id number] History of proteinuria syndrome Supervision of high-risk Asthma Gestational diabetes mellitus (GDM) affecting , antepartum Rh negative status during Anemia in preg-unspec H/O herpes genitalis Sivan's disease [id number] History of proteinuria syndrome Oligohydramnios in third trimester Supervision of high-risk Asthma Gestational diabetes mellitus (GDM) affecting , antepartum Rh negative status during Vaginal delivery Anemia in preg-unspec H/O herpes genitalis Sivan's disease [id number] History of proteinuria syndrome Oligohydramnios in third [...] in preg-unspec H/O herpes genitalis Sivan's disease [id number] History of proteinuria syndrome Supervision of high-risk Asthma Anemia in preg-unspec H/O herpes genitalis Sivan's disease [id number] History of proteinuria syndrome Supervision of high-risk Asthma Anemia in preg-unspec H/O herpes genitalis Sivan's disease [id number] History of proteinuria syndrome Supervision of high-risk Asthma Anemia in preg-unspec H/O herpes genitalis Sivan's disease [id number] History of proteinuria syndrome Supervision of high-risk Trauma during Asthma Anemia in preg-unspec H/O herpes genitalis Sivan's disease [id number] History of proteinuria syndrome Supervision of high-risk Asthma Anemia in preg-unspec H/O herpes genitalis Sivan's disease [id number] History of proteinuria syndrome Oligohydramnios in third trimester Supervision of high-risk Asthma Anemia in preg-unspec H/O herpes genitalis Sivan's disease [id number] History of proteinuria syndrome Oligohydramnios in third [...] d uring H/O herpes genitalis Sivan's disease [id number] History of proteinuria syndrome Supervision of high-risk Asthma Rh negative status during Anemia in preg-unspec H/O herpes genitalis Sivan's disease [id number] History of proteinuria syndrome Supervision of high-risk Asthma Gestational diabetes mellitus (GDM) affecting , antepartum Rh negative status during Anemia in preg-unspec H/O herpes genitalis Sivan's disease [id number] History of proteinuria syndrome Supervision of high-risk Asthma Gestational diabetes mellitus (GDM) affecting , antepartum Rh negative status during Anemia in preg-unspec H/O herpes genitalis Sivan's disease [id number] History of proteinuria syndrome Supervision of high-risk Asthma Gestational diabetes mellitus (GDM) affecting , antepartum Rh negative status during Anemia in preg-unspec H/O herpes genitalis Sivan's disease [id number] History of proteinuria syndrome Supervision of high-risk Trauma during Asthma Gestational diabetes mellitus (GDM) affecting , antepartum Rh negative status during Anemia in preg-unspec H/O herpes genitalis Sivan's disease [id number] History of proteinuria syndrome Supervision of high-risk Asthma Gestational diabetes mellitus (GDM) affecting , antepartum Rh negative status during Anemia in preg-unspec H/O herpes genitalis Sivan's disease [id number] History of proteinuria syndrome Oligohydramnios in third trimester Supervision of high-risk Asthma Gestational diabetes mellitus (GDM) affecting , antepartum Rh negative status during Vaginal delivery Anemia in preg-unspec H/O herpes genitalis Sivan's disease [id number] History of proteinuria syndrome Oligohydramnios in third trimester Supervision of high-risk Chief Complaint Admit Date E ORDERS September 14, 2024 1 1:09am possible vaginal prolapse December 22 9:31am AUB December 24, 2024 12: 48pm Reason for Visit Admit Date Abnormal uterine bleeding March 11th, 20 25 9:31am Rectocele December 22, 2024 9:3 1am [...] Rh negative state in antepartum period J formerly [facility] 2024 10:39am Supervision of high-risk April 05, [...] Ovarian cyst May 13, 2025 2:40 pm Chief Complaint Admit Date 2 Y FU March 11, 2025 8:18a m *EST* NOB LMP 02/01, STARR 11/08April 05, 2025 10:39am 2wk D&C FU April 30, 2025 9:55 am Post op bleeding FU May 13, 2025 2:40 pm E ORDER May 15, 2025 11: 41am Chief Complaint Admit Date 2 Y FU March 11, 2025 8:18a m *EST* NOB LMP 02/01, STARR 11/08April 05, 2025 10:39am 2wk D&C FU April 30, 2025 9:55 am Post op bleeding FU May 13, 2025 2:40 pm E ORDER May 15, 2025 11: 41am Post Op Bleeding FU June 22, 2025 2:58pm Reason for Visit Admit Date Hypothyroidism due [...] Rh negative state in antepartum period J formerly [facility] 2024 10:39am Supervision of high-risk April 05, 2025 10:39am Missed April 30, 2025 9:55 am Abnormal uterine bleeding May 13 2:40pm Ovarian cyst May 13, 2025 2:40 pm Abnormal uterine bleeding June 22, 2025 2:58pm Ovarian cyst June 22, 2025 2:58pm Secondary oligomenorrhea June 22, 2025 2:58pm Chief Complaint Admit Date *EST* NOB LMP 02/01, STARR 11/08April 05, 2025 10:39am 2wk D&C FU April 30, 2025 9:55 am Post op bleeding FU May 13, 2025 2:40 pm E ORDER May 15, 2025 11: 41am Post Op Bleeding FU June 22, 2025 2:58pm OVARIAN CYST June 24, 2025 12:53pm Reason for Visit Admit Date Anxiety April 05, 2025 10:3 9am Asthma [...] Ovarian cyst May 13, 2025 2:40 pm Abnormal uterine bleeding June 22, 2025 2:58pm Ovarian cyst June 22, 2025 2:58pm Secondary oligomenorrhea June 22, 2025 2:58pm Additional Source Comments INFORMATION SOURCE (unrecogn ized section and content) DATE CREATED AUTHOR 01/04/2019 [facility] DATE CREATED AUTHOR AUTHOR'S ORGANIZ ATION 06/19/2019 [facility] DATE CREATED AUTHOR AUTHOR'S ORGANIZ ATION 11/10/2020 [facility] DATE CREATED AUTHOR AUTHOR'S ORGANIZ ATION 01/04/2023 [facility] DATE CREATED AUTHOR AUTHOR'S ORGANIZ ATION 2023 [facility] DATE CREATED AUTHOR AUTHOR'S ORGANIZ ATION 06/02/2023 [employer] DATE CREATED AUTHOR AUTHOR'S ORGANIZ ATION 03/02/2024 [facility] DATE CREATED AUTHOR AUTHOR'S ORGANIZ ATION 01/02/2025 [facility] DATE CREATED AUTHOR AUTHOR'S ORGANIZ ATION 01/18/2025 [facility] DATE CREATED AUTHOR AUTHOR'S ORGANIZ ATION 06/25/2025 [facility] DATE CREATED AUTHOR AUTHOR'S ORGANIZ ATION 07/23/2025 [facility] DATE CREATED AUTHOR AUTHOR'S ORGANIZ ATION 08/07/2025 [facility] DATE CREATED AUTHOR AUTHOR'S ORGANIZ ATION 08/24/2025 [facility] Reason for Visit (unrecogniz ed section and content) Reason Comments Syncope patient states she h ad a "fainting spell" this morning, which aren't really unusual for [...] LIMITS HER ABILITY TO DO DAILY ACTIVITIES. Reason Comments Follow-up 6 MONTH F/U WITH LAB S C/O INCREASED FATIGUE MISCARRIED ON 05/06 Reason Comments Follow-up C/O PAIN UNDER LT RI BS X1 WK THINKS IT MAY BE PANIC ATTACKS AND DECREASED APPETITE Reason Comments UTI Pelvic pain, increas e in frequency of urination X 5 days Reason Comments Follow-up F/U WITH LABS Reason Comments CLARENCE Specialty Diagnoses / Procedures Referred By Contac t Referred To Contact Hematology and Oncology Diagnoses Iron deficiency anemia, unspecified iron deficiency anemia type Chrystal Alamo, PA-C [address] [place] [address] Phone: tel: fax: Referral ID Status Reason Start Date Expiration Date Visits Requested Visits Authorized [id number] Authorized Specialty Services Required 07/21/2025 07/21/2026 1 1 Reny Lorenzana RN - 10/31/2020 6:57 PM [...] Care Teams (unrecognized sec tion and content) Woodwork Teacher Relationship Specialty Start Date End Date Chrystal Alamo PA-C [address] [place] [address] PCP - General 06/16/19 Chrystal Alamo PA-C [address] [place] [address] PCP - Rolanlakisha ABEBEO PCP 05/14/22 Woodwork Teacher Relationship Specialty Start Date End Date Chrystal Alamo PA-C [address] [place] [address] PCP - General 06/16/19 Chrystal Alamo PA-C [address] [place] [address] [facility] P[facility] 05/14/22 Team Status: Active Member Role Status Dates Chrystalann-marie WrightClifton PA, PA Primary Care Provider Active Team [...] Dates Chrystalann-marie Alamo PA, PA Primary Care Provider, Referr [...] Status: Inactive Member Role Status Dates Chrystalann-marie WrightClifton PA, PA Primary Care Provider, Referr ing Provider Active Bethany Cedillo APPOINTMENT CLERK, APPOINTMENT CLERK-C Attending Provider Active Team Status: Inactive Member Role Status Dates Chrystal Clifton PA, PA Primary Care Provider Active Bethany Cedillo APPOINTMENT CLERK, APPOINTMENT CLERK-C Attending Provider, Referring Provider Active Team Status: Inactive Member Role Status Dates Chrystalann-marie Alamo PA, PA Primary Care Provider Active Dr. Fermín Rodrigues MD Emergency Provider Active Woodwork Teacher Relationship Specialty Start Date End Date Chrystal Alamo, PA-C [address] [place] [address] PCP - General 06/16/19 Chrystal Alamo PA-C [address] [place] [address] [facility] Team Status: Inactive [...] Provider, Referr ing Provider Active Cee Alston APPOINTMENT CLERK, APPOINTMENT CLERK-C Attending Provider Active Team Status: Active Member Role Status Dates Chrystal Alamo PA, PA Primary Care Provider Active Dr. Esme Baker MD Admit Provider, Other Prov ider Active Ara Roach CNM Attending Provider Active Team Status: Inactive Member Role Status Dates Chrystal Alamo PA, PA Primary Care Provider Active Dr. Esme Baker MD Admit Provider, Attending Provider Active Woodwork Teacher Relationship Specialty Start Date End Date Chrystal Alamo PA-C [address] [place] [address] PCP - General 06/16/19 Chrystal Alamo PA-C [address] [place] [address] [facility] P[facility] 05/14/22 Woodwork Teacher Relationship Specialty Start Date End Date Chrystal Alamo PA-C [address] [place] [address] PCP - General 06/16/19 Chrystal Alamo PA-C [address] [place] [address] [facility] PCP 05/14/22 Woodwork Teacher Relationship Specialty Start Date End Date Chrystal Alamo PA-C [address] [place] [address] PCP - General 06/16/19 Chrystal Alamo PA-C [address] [place] [address] [facility] PCP 05/14/22 Team Status: Inactive Member Role [...] Status: Inactive Member Role Status Dates Chrystal Clifton PA, PA Primary Care Provider Active Start: [...] 11, 2025 End: March 11, 2025 Chrystal Cally PA, PA Referring Provider Active Start: March [...] Status: Inactive Member Role Status Dates Chrystal Clifton PA, PA Primary Care Provider Active Start: April 05, 2025 End: April 05, 2025 Chrystal Clifton PA, PA Referring Provider Active Start: April 05, 2025 End: April 05, 2025 Dr. Brandi Freeman DO Attending Provider Activ e Start: April 05, 2025 End: April 05, 2025 Team Status: Active Member Role Status Dates Chrystalann-marie Vallejoall PA, PA Primary Care Provider Active Start: [...] Status: Active Member Role/Relationship Status Dates Chrystal Clifton PA, PA Primary Care Provider Active Team Status: Inactive Member Role/Relationship Status Dates Chrystal Cally PA, PA Primary Care Provider Active Start: December 22, 2024 End: December 22, 2024 Chrystal Clifton PA, PA Referring Provider Active Start: December 22, 2024 End: December 22, 2024 Dr. Esme Baker MD Attending Provider Active Start: December 22, 2024 End: December 22, 2024 Team Status: Inactive Member Role/Relationship Status Dates Chrystal Clifton PA, PA Primary Care Provider Active Start: [...] Status: Inactive Member Role/Relationship Status Dates Chrystal Clifton PA, PA Primary Care Provider Active Start: April 30, 2025 End: April 30, 2025 Chrystal Clifton PA, PA Referring Provider Active Start: April 30, 2025 End: April 30, 2025 Dr. Esme Baker MD Attending Provider Active Start: April 30, 2025 End: April 30, 2025 Team Status: Inactive Member Role/Relationship Status Dates Chrystal Cally PA, PA Primary Care Provider Active Start: May 13, 2025 End: May 13, 2025 Chrystal Cally PA, PA Referring Provider Active Start: May 13, 2025 End: May 13, 2025 Dr. Esme Baker MD Attending Provider Active Start: May 13, 2025 End: May 13, 2025 Team Status: Active Member Role/Relationship Status Dates Chrystalann-marie Alamo PA, PA Primary Care Provider Active Start: May 13, 2025 Dr. Esme Baker MD Attending Provider Active Start: May 13, 2025 Team Status: Inactive Member Role/Relationship Status Dates Chrystal Clifton PA, PA Primary Care Provider Active Start: May 13, 2025 End: May 13, 2025 Dr. Esme Baker MD Attending Provider Active Start: May 13, 2025 End: May 13, 2025 Team Status: Active Member Role/Relationship Status Dates Chrystal Cally PA, PA Primary Care Provider Active Start: May 15, 2025 Dr. Brandi Freeman , DO Attending Provider Activ e Start: May 15, 2025 Dr. Brandi Freeman , DO Referring Provider Activ e Start: May 15, 2025 Team Status: Inactive Member Role/Relationship Status Dates CURTIS Keyes Primary Care Provider Active Start: May 15, 2025 End: May 15, 2025 Dr. Brandi Freeman , Attending Provider Activ e Start: May 15, 2025 End: May 15, 2025 Dr. Brandi Freeman DO Referring Provider Activ e Start: May 15, 2025 End: May 15, 2025 Woodwork Teacher Relationship Specialty Start Date End Date Chrystal Alamo PA-C [address] [place] [address] PCP - General 06/16/19 Chrystal Alamo PA-C [address] [place] [address] [facility] 05/14/22 Woodwork Teacher Relationship Specialty Start Date End Date Chrystal Alamo PA-C [address] [place] [address] PCP - General 06/16/19 Chrystal Alamo PA-C [address] [place] [address] [facility] 05/14/22 Team Status: Inactive Member Role/Relationship Status Dates CURTIS Keyes Primary Care Provider Active Start: June 22, 2025 End: June 22, 2025 CURTIS Keyes Referring Provider Active Start: June 22, 2025 End: June 22, 2025 Dr. Esme Baker MD Attending Provider Active Start: June 22, 2025 End: June 22, 2025 Team Status: Active Member Role/Relationship Status Dates CURTIS Keyes Primary care physician Active Team Status: Inactive Member Role/Relationship Status Dates Chrystal Cally PA, PA Primary care physician Active Start: April 05, 2025 End: April 05, 2025 Chrystalann-marie Vallejoall PA, PA Referring Provider Active Start: April 05, 2025 End: April 05, 2025 Dr. Brandi Freeman DO Attending physician Acti ve Start: April 05, 2025 End: April 05, 2025 Team Status: Inactive Member Role/Relationship Status Dates Chrystalann-marie Vallejoall PA, PA Primary care physician Active Start: April 05, 2025 End: April 05, 2025 Dr. Brandi Freeman DO Attending physician Acti ve Start: April 05, 2025 End: April 05, 2025 Dr. Brandi Freeman DO Referring Provider Activ e Start: April 05, 2025 End: April 05, 2025 Team Status: Active Member Role/Relationship Status Dates Chrystalann-marie Alamo PA, PA Primary care physician Active Start: April 06, 2025 Dr. Esme Baker MD Attending physician Active Start: April 06, 2025 Dr. Esme Baker MD Nurse Practitioner Active Start: April 06, 2025 Team Status: Inactive Member Role/Relationship Status Dates Chrystalann-marie Alamo PA, PA Primary care physician Active Start: April 06, 2025 End: April 06, 2025 Dr. Esme Baker MD Attending physician Active Start: April 06, 2025 End: April 06, 2025 Dr. Esme Baker MD Referring Provider Active Start: April 06, 2025 End: April 06, 2025 Team Status: Inactive Member Role/Relationship Status Dates Chrystal Cally PA, PA Primary care physician Active Start: April 30, 2025 End: April 30, 2025 Chrystal Clifton PA, PA Referring Provider Active Start: April 30, 2025 End: April 30, 2025 Dr. Esme Baker MD Attending physician Active Start: April 30, 2025 End: April 30, 2025 Team Status: Inactive Member Role/Relationship Status Dates Chrystal Cally PA, PA Primary care physician Active Start: May 13, 2025 End: May 13, 2025 Chrystal Cally PA, PA Referring Provider Active Start: May 13, 2025 End: May 13, 2025 Dr. Esme Baker MD Attending physician Active Start: May 13, 2025 End: May 13, 2025 Team Status: Inactive Member Role/Relationship Status Dates CURTIS Keyes Primary care physician Active Start: May 13, 2025 End: May 13, 2025 Dr. Esme Baker MD Attending physician Active Start: May 13, 2025 End: May 13, 2025 Team Status: Inactive Member Role/Relationship Status Dates CURTIS Keyes Primary care physician Active Start: May 15, 2025 End: May 15, 2025 Dr. Brandi Freeman DO Attending physician Acti ve Start: May 15, 2025 End: May 15, 2025 Dr. Brandi Freeman DO Referring Provider Activ e Start: May 15, 2025 End: May 15, 2025 Team Status: Inactive Member Role/Relationship Status Dates CURTIS Keyes Primary care physician Active Start: June 22, 2025 End: June 22, 2025 CURTIS Keyes Referring Provider Active Start: June 22, 2025 End: June 22, 2025 Dr. Esme Baker MD Attending physician Active Start: June 22, 2025 End: June 22, 2025 Team Status: Inactive Member Role/Relationship Status Dates CURTIS Keyes Primary care physician Active Start: June 24, 2025 End: June 24, 2025 Dr. Esme Baker MD Attending physician Active Start: June 24, 2025 End: June 24, 2025 Dr. Esme Baker MD Referring Provider Active Start: June 24, 2025 End: June 24, 2025 Woodwork Teacher Relationship Specialty Start Date End Date Chrystal Alamo PA-C [address] [place] [address] PCP - General 06/16/19 Chrystal Alamo PA-C [address] [place] [address] PCP - [facility] PCP 05/14/22 Woodwork Teacher Relationship Specialty Start Date End Date Chrystal Alamo PA-C [address] [place] [address] PCP - General 06/16/19 Chrystal Alamo PA-C [address] [place] [address] PCP - [facility] PCP 05/14/22 Goals (unrecognized section and content) Goals may [...] BE BASED ON THE PRIMARY CLINICAL RECORDS. [employer] [facility] provides no warranty or guarantee of the accuracy or completeness of information in this document.
== END | disposition home or self-care (01) ==
PROVIDERS: PCP Physician Assistant Medical; Visit Provider Obstetrics & Gynecology
DX: E06.3 Autoimmune thyroiditis (principal)
CPT/HCPCS: 36415; 84439; 84443